=== PATIENT | female | born 1955 | race Caucasian/White ===

== ENCOUNTER 2017-03-22 12:12 | Emergency (ER) | payer OTHER, BC ==
[~2017-03-22] VITALS: Ht 165.1 cm; Wt 105.0 kg
[~2017-03-22 12:12] MED LIST: ASPI81TA28 PO; B-COCAP21 PO; CALC667C4 PO; CITA40TA4 PO; CLOTCRE33 TOP; CYAN1TAB2 PO; DIPH2CRE16 EXT; DOCU-94 PO; FENO145T26 PO; INSDGI SC; METO25TA56 PO; NRN/300 PO; OXYC20TA32 PO; RANI150T3 PO; SEVE800T7 PO; SIMV-151 PO; TRAZ50TA35 PO; TRIA0.1C20 TOP; VTMD PO
[2017-03-22 12:20] VITALS: TEMP 36.8; Ht 165.1 cm; Wt 105.0 kg
--- NOTE | 2017-03-22 12:49 | EMERGENCY ROOM VISIT NOTE ---
History Report prepared by Teri: Prabha Blankenship Under the Supervision of: Dr. Mauri Parks M.D. First contact with patient: 12:36 Chief Complaint: OTHER COMPLAINT Stated Complaint: PUMP IN R LEG History of Present Illness The patient is a 62 year old female who presents to the Emergency Room with complaints of persistent right leg pain that began 1 week ago. She currently rates her discomfort as a 4/10 in severity. The patient states that she has a history of diabetes and cellulitis. She states that her sugars have been normal recently. The patient states that her symptoms today appear similar to when she had cellulitis in the past. The patient states that she saw her PCP yesterday who was concerned that she may have developed a DVT. Associates erythema to her right leg with her symptoms today. The patient states that she is also on dialysis. Source of History: patient Onset: 1 week ago Position: leg (right) Symptom Intensity: 4/10 Timing: other (persistent) Note: Associated Symptoms:erythema to right leg Review of Systems All systems have been listed, reviewed, and are negative other than those previously mentioned. Please see Additional Medical History Sheet. Past Medical & Surgical Medical Problems: (1) Cellulitis (2) DM type 2 (diabetes mellitus, type 2) (3) EDEMA (4) End stage renal disease on dialysis (5) Esophageal Reflux (6) History of DVT (deep vein thrombosis) (7) History of pulmonary embolus (PE) (8) History of renal calculi (9) Hyperlipidemia Nec/Nos (10) Hypertension Nos (11) IRON DEFIC ANEMIA NOS (12) Osteoarthritis (13) Osteoporosis (14) Psoriasis Surgical Problems: (1) H/o AV anastomosis (2) H/O section (3) H/O colonoscopy (4) H/O cystoscopy (5) H/o EGD (6) H/O inguinal hernia repair (7) H/o insertion of biodegradable drug delivery implant (8) H/o insertion of tunneled central venous catheter (9) H/O laparoscopy (10) H/O partial resection of colon (11) H/o thrombectomy embolectomy axillary artery (12) History of ureter stent (13) S/P cholecystectomy (14) S/P hip replacement Family History Cardiovascular disease Diabetes mellitus SISTER FH: cancer FATHER (prostate, lung) SISTER (breast CA) Hypertension MOTHER SISTER Kidney disease Social History Smoking Status: Former Smoker Alcohol Use: none Drug Use: none Marital Status: Housing Status: lives with family Occupation Status: retired Current/Historical Medications Scheduled Aspirin (Aspirin Ec), 81 MG PO DAILY B-Complex W/ C & Folic Acid (Ki Caps), 1 CAP PO QAM Calcium Acetate (Phoslo 667 Mg), 1 CAP PO TID Cephalexin Monohydrate (Keflex), 500 MG PO QID Citalopram (Citalopram Hydrobromide), 1 TAB PO DAILY Clindamycin Hcl (Cleocin), 300 MG PO QID Cyanocobalamin (B-12), 1 TAB PO DAILY Docusate Sodium (Colace), 1 CAP PO BID Ergocalciferol (Vitamin D 20088 Unit), 50,000 UNIT INJ WK Fenofibrate (Tricor ), 145 MG PO DAILY Gabapentin (Neurontin), 300 MG PO TID Insulin Glargine (Lantus Solostar), 30 SC BID Metoprolol Tartrate (Lopressor) (Lopressor), 12.5 MG PO BID Sevelamer Carbonate (Renvela), 5 TAB PO UD Simvastatin (Simvastatin), 20 MG PO HS Triamcinolone Acet (Triamcinolone Acetonide), 1 APPLN TOP BID Scheduled PRN Clotrimazole W/ Betamethasone (Lotrisone), 1 APPLN TOP DAILY PRN for PRN Diphenhydramine-Zinc Acetate (Sm Anti-Itch Extra Streng), 1 APPLN EXT TID PRN for Itching Oxycodone Hcl (Oxycodone Hcl), 20 MG PO Q4 PRN for PA Trazodone Hcl (Trazodone), 50 MG PO HS PRN for Sleep Allergies Coded Allergies: Sulfa Drugs (Verified Allergy, Mild, hives, 03/22/17) Physical Exam Vital Signs Date Time Temp Pulse Resp B/P (MAP) Pulse Ox O2 Delivery O2 Flow Rate FiO2 03/22/17 14:34 69 18 141/71 98 03/22/17 13:43 63 18 139/66 97 Room Air 03/22/17 12:20 36.8 80 18 136/77 96 Room Air Physical Exam GENERAL: Patient awake, alert, oriented x 3. Patient follows commands. Patient does not appear toxic. Patient is adequately hydrated and well- nourished. SKIN: No erythema, pallor, cyanosis or rash HEENT: Normal head, pupils equal, reactive to light and accommodation. Neck: Without adenopathy, no neck vein distention. LUNGS: Clear to auscultation. No wheezes, no rales, no rhonchi. HEART: No murmurs. No gallops. No rubs ABDOMEN: Obese, No masses, no rebound, no hepatomegaly or splenomegaly. EXTREMITIES: Erythema and minimal tenderness in right lower leg. No inguinal adenopathy. Slight tenderness to calf, no break in skin to foot or lower leg, Right arm fistula. NEUROLOGIC: Cranial nerves II-XII within normal limits. No gross motor sensory function deficits. Medical Decision & Procedures ER Provider Diagnostic Interpretation: US results are interpretations by the radiologist and per my review. RIGHT LOWER EXTREMITY VENOUS DOPPLER HISTORY: Right leg swelling. DVT vs cellulitis Right COMPARISON STUDY: None. FINDINGS: There is normal compressibility, flow, and augmentation within the right lower extremity deep venous system. A 4.9 x 2.4 x 1.9 cm popliteal cyst. Echogenic fat within the upper medial calf consistent with a cellulitis. No loculated fluid collections to suggest an abscess. IMPRESSION: No DVT within the right lower extremity Electronically signed by: Bryon Recinos M.D. 03/22/2017 1:41 PM Dictated Date/Time: 03/22/2017 1:41 PM Laboratory Results 03/22/17 11:25 Red Blood Count 3.38, Mean Corpuscular Volume 104.4, Mean Corpuscular Hemoglobin 32.5, Mean Corpuscular Hemoglobin Concent 31.2, Mean Platelet Volume 9.5, Neutrophils (%) (Auto) 73.8, Lymphocytes (%) (Auto) 15.6, Monocytes (%) ( Auto) 6.0, Eosinophils (%) (Auto) 3.8, Basophils (%) (Auto) 0.4, Neutrophils # ( Auto) 6.02, Lymphocytes # (Auto) 1.27, Monocytes # (Auto) 0.49, Eosinophils # ( Auto) 0.31, Basophils # (Auto) 0.03 03/22/17 11:25 Test 03/22/17 11:25 White Blood Count 8.15 K/uL (4.8-10.8) Red Blood Count 3.38 M/uL (4.2-5.4) Hemoglobin 11.0 g/dL (12.0-16.0) Hematocrit 35.3 % (37-47) Mean Corpuscular Volume 104.4 fL (80-100) Mean Corpuscular Hemoglobin 32.5 pg (25-34) Mean Corpuscular Hemoglobin Concent 31.2 g/dl (32-36) Platelet Count 214 K/uL (130-400) Mean Platelet Volume 9.5 fL (7.4-10.4) Neutrophils (%) (Auto) 73.8 % Lymphocytes (%) (Auto) 15.6 % Monocytes (%) (Auto) 6.0 % Eosinophils (%) (Auto) 3.8 % Basophils (%) (Auto) 0.4 % Neutrophils # (Auto) 6.02 K/uL (1.4-6.5) Lymphocytes # (Auto) 1.27 K/uL (1.2-3.4) Monocytes # (Auto) 0.49 K/uL (0.11-0.59) Eosinophils # (Auto) 0.31 K/uL (0-0.5) Basophils # (Auto) 0.03 K/uL (0-0.2) RDW Standard Deviation 52.5 fL (36.4-46.3) RDW Coefficient of Variation 13.9 % (11.5-14.5) Immature Granulocyte % (Auto) 0.4 % Immature Granulocyte # (Auto) 0.03 K/uL (0.00-0.02) Anion Gap 3.0 mmol/L (3-11) Est Creatinine Clear Calc Drug Dose 23.1 ml/min Estimated GFR () 18.4 Estimated GFR (Non- 15.9 BUN/Creatinine Ratio 5.0 (10-20) Calcium Level 9.0 mg/dl (8.5-10.1) Laboratory results as stated above per my review. ED Course 1237: Past medical records reviewed. The patient was evaluated in room B2. A complete history and physical examination was performed. 1402: I reevaluated the patient and she is doing well. I discussed all the exam findings with her and I discussed the treatment plan. She verbalized complete understanding and agreement. She is ready to go home. Medical Decision Nurses notes reviewed. Medical history sheet reviewed. Differential diagnosis includes but is not limited to: cellulitis, DVT. Medication Reconciliation: I attest that I have personally reviewed the patient' s current medication list. Blood pressure Screening: Patient was found to have normal blood pressure on screening and does not require follow up. Multiple labs and imaging were obtained. Please see above. The patient has no evidence of a DVT. She does have cellulitis and will be started on Keflex and clindamycin. Patient is allergic to sulfa. Patient will require follow-up by her family physician. Impression Primary Impression: Cellulitis of right leg Scribe Attestation The scribe's documentation has been prepared under my direction and personally reviewed by me in its entirety. I confirm that the note above accurately reflects all work, treatment, procedures, and medical decision making performed by me. Departure Information Dispostion Home / Self-Care Prescriptions Clindamycin Hcl (CLEOCIN) 300 Mg Cap 300 MG PO QID for 5 Days, #20 CAP Prov: Mauri Parks M.D. 03/22/17 Cephalexin Monohydrate (Keflex) 500 Mg Cap 500 MG PO QID, #40 CAP Prov: Mauri Parks M.D. 03/22/17 Referrals Willie Epstein M.D. (PCP) Forms HOME CARE DOCUMENTATION FORM, IMPORTANT VISIT INFORMATION Patient Instructions My [facility] Additional Instructions 1 Keflex 4 times a day for 10 days. 1 Clindamycin 4 times a day for 5 days. Elevate your leg as much as possible. Follow-up with your family physician within the next 3-4 days. Return here sooner if the redness/swelling is getting worse.
[2017-03-22 13:25] LABS: BASO % 0.4 %; BASO ABS # 0.03 K/uL (0-0.2); COMPLETE YES; EOS % 3.8 %; HEMATOCRIT 35.3 % (37-47); IG% 0.4 %; LYMPH % 15.6 %; LYMPH ABS # 1.27 K/uL (1.2-3.4); MEAN CELL VOLUME 104.4 fL (80-100); MEAN CORPUSCULAR HEMOGLOBIN 32.5 pg (25-34); MEAN CORPUSCULAR HGB CONC 31.2 g/dl (32-36); MEAN PLATELET VOLUME 9.5 fL (7.4-10.4); NEUT % 73.8 %; PLATELET COUNT 214 K/uL (130-400); RED BLOOD COUNT 3.38 M/uL (4.2-5.4); WHITE BLOOD COUNT 8.15 K/uL (4.8-10.8)
[2017-03-22] MEDS ORDERED: ERGO500037 INJ (13:43)
--- NOTE | 2017-03-22 13:43 | DIAGNOSTIC IMAGING REPORT ---
RIGHT LOWER EXTREMITY VENOUS DOPPLER HISTORY: Right leg swelling. DVT vs cellulitis Right COMPARISON STUDY: None. FINDINGS: There is normal compressibility, flow, and augmentation within the right lower extremity deep venous system. A 4.9 x 2.4 x 1.9 cm popliteal cyst. Echogenic fat within the upper medial calf consistent with a cellulitis. No loculated fluid collections to suggest an abscess. IMPRESSION: No DVT within the right lower extremity Electronically signed by: Bryon Recinos M.D. 03/22/2017 1:41 PM Dictated Date/Time: 03/22/2017 1:41 PM
[2017-03-22 13:44] LABS: POTASSIUM 3.9 mmol/L (3.5-5.1)
[2017-03-22] MEDS ORDERED: INSDGIPEN SC (13:46)
[2017-03-22] MEDS ORDERED: TRMCR515 TOP (13:52)
[2017-03-22] MEDS ORDERED: CEPH500C PO (14:19)
[2017-03-22] MEDS ORDERED: CLIN300C2 PO (14:19)
[2017-03-22 14:34] VITALS: BP 141/71; PULSE 69; O2SAT 98
== END 2017-03-22 14:37 | disposition home or self-care (01) ==
LOC: C.EDB 12:14
DX: L03.115 Cellulitis of right lower limb (principal); E11.9 Type 2 diabetes mellitus without complications; N18.6 End stage renal disease; Z99.2 Dependence on renal dialysis; K21.9 Gastro-esophageal reflux disease without esophagitis; Z86.718 Personal history of other venous thrombosis and embolism; Z86.711 Personal history of pulmonary embolism; Z87.442 Personal history of urinary calculi; E78.5 Hyperlipidemia, unspecified; I12.0 Hypertensive chronic kidney disease with stage 5 chronic kidney disease or end stage renal disease; D50.9 Iron deficiency anemia, unspecified; M19.90 Unspecified osteoarthritis, unspecified site; M81.0 Age-related osteoporosis without current pathological fracture; Z82.49 Family history of ischemic heart disease and other diseases of the circulatory system; Z83.3 Family history of diabetes mellitus; Z80.9 Family history of malignant neoplasm, unspecified; Z84.1 Family history of disorders of kidney and ureter; Z87.891 Personal history of nicotine dependence; Z79.82 Long term (current) use of aspirin; Z79.4 Long term (current) use of insulin; Z79.899 Other long term (current) drug therapy

== ENCOUNTER 2017-04-10 08:14 | Emergency (ER) | payer OTHER, BC ==
[~2017-04-10] VITALS: Ht 162.6 cm; Wt 105.0 kg
[~2017-04-10 08:14] MED LIST changes: +CEPH500C PO; +ERGO500037 INJ; -INSDGI SC; +INSDGIPEN SC; -RANI150T3 PO; -TRIA0.1C20 TOP; +TRMCR515 TOP; -VTMD PO
[2017-04-10 08:19] VITALS: TEMP 36.4; Ht 162.6 cm; Wt 105.0 kg
[2017-04-10 09:23] VITALS: O2SAT 96
[2017-04-10 09:42] LABS: BASO % 0.1 %; BASO ABS # 0.01 K/uL (0-0.2); COMPLETE YES; EOS % 4.2 %; HEMATOCRIT 32.9 % (37-47); IG% 0.3 %; LYMPH % 9.7 %; MEAN CELL VOLUME 101.2 fL (80-100); MEAN CORPUSCULAR HEMOGLOBIN 31.7 pg (25-34); MEAN CORPUSCULAR HGB CONC 31.3 g/dl (32-36); MEAN PLATELET VOLUME 9.3 fL (7.4-10.4); MONO % 5.4 %; NEUT % 80.3 %; PLATELET COUNT 189 K/uL (130-400); RED BLOOD COUNT 3.25 M/uL (4.2-5.4); WHITE BLOOD COUNT 9.31 K/uL (4.8-10.8)
--- NOTE | 2017-04-10 09:49 | EMERGENCY ROOM VISIT NOTE ---
History First contact with patient: 08:24 Chief Complaint: OTHER COMPLAINT Stated Complaint: CELLULITIS Nursing Triage Summary: Pt verbalizes she was recently here for cellulitis in bilateral lower extremities, legs are doing better, but now concerned about cellulitis in bilateral hands. C/O bilateral hand edema, redness, and pain. History of Present Illness The patient is a 62 year old female who presents to the Emergency Room with complaints of bilateral swelling and pain of her hands that started 3 days ago. She also states she has been feeling generally more fatigued than usual, with some associated nausea. She denies any injuries to the hands, and has not had this problem before. Both hands began swelling and having pain at the same time and have both progressively gotten worse. She has taken her prescribed oxycodone for pain with some improvement, but has not taken any today. Patient states she was treated for right lower leg cellulitis several weeks ago with clindamycin and Keflex, she did complete the courses of antibiotics in her leg has improved. She is here today because she is concerned that she is getting cellulitis in her hands. Past medical history significant for dialysis, which she receives Friday, , Friday. She did not go today because she came to the ER, but she states she should be able to get an appointment to have dialysis tomorrow. She denies headaches, vision changes, chest pain, shortness of breath, palpitations, dizziness or passing out, abdominal pain, vomiting, diarrhea, constipation, fever/chills. Review of Systems A complete 10 point review of systems was reviewed with the patient with pertinent positives and negatives as per history of present illness. All else were negative. Past Medical/Surgical History Medical Problems: (1) Cellulitis (2) DM type 2 (diabetes mellitus, type 2) (3) EDEMA (4) End stage renal disease on dialysis (5) Esophageal Reflux (6) History of DVT (deep vein thrombosis) (7) History of pulmonary embolus (PE) (8) History of renal calculi (9) Hyperlipidemia Nec/Nos (10) Hypertension Nos (11) IRON DEFIC ANEMIA NOS (12) Osteoarthritis (13) Osteoporosis (14) Psoriasis Surgical Problems: (1) H/o AV anastomosis (2) H/O section (3) H/O colonoscopy (4) H/O cystoscopy (5) H/o EGD (6) H/O inguinal hernia repair (7) H/o insertion of biodegradable drug delivery implant (8) H/o insertion of tunneled central venous catheter (9) H/O laparoscopy (10) H/O partial resection of colon (11) H/o thrombectomy embolectomy axillary artery (12) History of ureter stent (13) S/P cholecystectomy (14) S/P hip replacement Family History Cardiovascular disease Diabetes mellitus SISTER FH: cancer FATHER (prostate, lung) SISTER (breast CA) Hypertension MOTHER SISTER Kidney disease Social History Smoking Status: Never Smoker Alcohol Use: none Drug Use: none Marital Status: Housing Status: lives with family Occupation Status: retired Current/Historical Medications Scheduled Aspirin (Aspirin Ec), 81 MG PO DAILY B-Complex W/ C & Folic Acid ([place] Caps), 1 CAP PO QAM Calcium Acetate (Phoslo 667 Mg), 1 CAP PO TID Citalopram (Citalopram Hydrobromide), 1 TAB PO DAILY Cyanocobalamin (B-12), 1 TAB PO DAILY Docusate Sodium (Colace), 1 CAP PO BID Ergocalciferol (Vitamin D 60371 Unit), 50,000 UNIT INJ WK Fenofibrate (Tricor ), 145 MG PO DAILY Gabapentin (Neurontin), 300 MG PO TID Insulin Glargine (Lantus Solostar), 30 SC BID Metoprolol Tartrate (Lopressor) (Lopressor), 12.5 MG PO BID Sevelamer Carbonate (Renvela), 5 TAB PO UD Simvastatin (Simvastatin), 20 MG PO HS Triamcinolone Acet (Triamcinolone Acetonide), 1 APPLN TOP BID Scheduled PRN Clotrimazole W/ Betamethasone (Lotrisone), 1 APPLN TOP DAILY PRN for PRN Diphenhydramine-Zinc Acetate (Sm Anti-Itch Extra Streng), 1 APPLN EXT TID PRN for Itching Oxycodone Hcl (Oxycodone Hcl), 20 MG PO Q4 PRN for PA Trazodone Hcl (Trazodone), 50 MG PO HS PRN for Sleep Allergies Coded Allergies: Sulfa Drugs (Verified Allergy, Mild, hives, 03/22/17) Physical Exam Vital Signs Date Time Temp Pulse Resp B/P (MAP) Pulse Ox O2 Delivery O2 Flow Rate FiO2 04/10/17 13:24 82 18 150/66 95 04/10/17 12:49 89 04/10/17 12:10 89 16 154/67 95 Room Air 04/10/17 10:40 84 16 149/67 97 Room Air 04/10/17 10:05 82 16 96 Room Air 04/10/17 09:30 89 04/10/17 09:23 96 Room Air 04/10/17 08:19 36.4 84 16 108/55 96 Room Air Physical Exam CONSTITUTIONAL: No acute distress. Nontoxic appearing. Well appearing and well nourished. Alert and oriented X 4 with normal affect. HEENT: Normocephalic, atraumatic. Pupils equal, round and reactive to light, EOMI. TMs normal. Pharynx normal. Moist mucous membranes. NECK: Supple, full active range of motion without discomfort. RESPIRATORY: Clear to auscultation bilaterally with no wheezing, crackles, rhonchi or stridor. Equal expansion bilaterally. CARDIOVASCULAR: Regular rate and rhythm with no murmurs, rubs or gallops. Normal peripheral perfusion. No edema. GASTROINTESTINAL: Soft, nontender, nondistended. Bowel sounds present in all quadrants. MUSCULOSKELETAL: Bilateral nonpitting edema of the hands, tender to palpation, especially around the joints. Mild erythema diffusely of both hands. Not hot to touch, no streaking or lymphangitis to suggest cellulitis. Full range of motion of all joints without discomfort. INTEGUMENTARY: No rash or other significant dermatologic conditions noted. NEUROLOGIC: Cranial nerves II-XII grossly intact. No focal neurologic deficits noted. Medical Decision & Procedures ER Provider Diagnostic Interpretation: CHEST 2 VIEWS ROUTINE CLINICAL HISTORY: Sepsis. COMPARISON STUDY: 06/07/2015 FINDINGS: The heart is mildly enlarged. There is no failure. There is no focal pulmonary consolidation. There are no pleural effusions. There is an old lower thoracic compression deformity. IMPRESSION: No active disease in the chest. Laboratory Results 04/10/17 09:30 Red Blood Count 3.25, Mean Corpuscular Volume 101.2, Mean Corpuscular Hemoglobin 31.7, Mean Corpuscular Hemoglobin Concent 31.3, Mean Platelet Volume 9.3, Neutrophils (%) (Auto) 80.3, Lymphocytes (%) (Auto) 9.7, Monocytes (%) ( Auto) 5.4, Eosinophils (%) (Auto) 4.2, Basophils (%) (Auto) 0.1, Neutrophils # ( Auto) 7.48, Lymphocytes # (Auto) 0.90, Monocytes # (Auto) 0.50, Eosinophils # ( Auto) 0.39, Basophils # (Auto) 0.01 04/10/17 09:30 Test 04/10/17 09:30 04/10/17 11:05 White Blood Count 9.31 K/uL (4.8-10.8) Red Blood Count 3.25 M/uL (4.2-5.4) Hemoglobin 10.3 g/dL (12.0-16.0) Hematocrit 32.9 % (37-47) Mean Corpuscular Volume 101.2 fL (80-100) Mean Corpuscular Hemoglobin 31.7 pg (25-34) Mean Corpuscular Hemoglobin Concent 31.3 g/dl (32-36) Platelet Count 189 K/uL (130-400) Mean Platelet Volume 9.3 fL (7.4-10.4) Neutrophils (%) (Auto) 80.3 % Lymphocytes (%) (Auto) 9.7 % Monocytes (%) (Auto) 5.4 % Eosinophils (%) (Auto) 4.2 % Basophils (%) (Auto) 0.1 % Neutrophils # (Auto) 7.48 K/uL (1.4-6.5) Lymphocytes # (Auto) 0.90 K/uL (1.2-3.4) Monocytes # (Auto) 0.50 K/uL (0.11-0.59) Eosinophils # (Auto) 0.39 K/uL (0-0.5) Basophils # (Auto) 0.01 K/uL (0-0.2) RDW Standard Deviation 54.4 fL (36.4-46.3) RDW Coefficient of Variation 15.1 % (11.5-14.5) Immature Granulocyte % (Auto) 0.3 % Immature Granulocyte # (Auto) 0.03 K/uL (0.00-0.02) Erythrocyte Sedimentation Rate 56 mm/hr (0-21) Anion Gap 11.0 mmol/L (3-11) Est Creatinine Clear Calc Drug Dose 10.6 ml/min Estimated GFR () 7.4 Estimated GFR (Non- 6.4 BUN/Creatinine Ratio 6.3 (10-20) Lactic Acid Level 0.8 mmol/L (0.4-2.0) Calcium Level 9.0 mg/dl (8.5-10.1) Total Bilirubin 1.3 mg/dl (0.2-1) Direct Bilirubin 0.2 mg/dl (0-0.2) Aspartate Amino Transf (AST/SGOT) 26 U/L (15-37) Alanine Aminotransferase (ALT/SGPT) 20 U/L (12-78) Alkaline Phosphatase 88 U/L (45-117) C-Reactive Protein 17.60 mg/dl (0-0.29) Total Protein 7.0 gm/dl (6.4-8.2) Albumin 2.3 gm/dl (3.4-5.0) Urine Color YELLOW Urine Appearance CLEAR (CLEAR) Urine pH 8.5 (4.5-7.5) Urine Specific Ellis 1.010 (1.000-1.030) Urine Protein 2+ (NEG) Urine Glucose (UA) TRACE (NEG) Urine Ketones NEG (NEG) Urine Occult Blood TRACE (NEG) Urine Nitrite NEG (NEG) Urine Bilirubin NEG (NEG) Urine Urobilinogen NEG (NEG) Urine Leukocyte Esterase TRACE (NEG) Urine WBC (Auto) 1-5 /hpf (0-5) Urine RBC (Auto) 0-4 /hpf (0-4) Urine Hyaline Casts (Auto) 5-10 /lpf (0-5) Urine Epithelial Cells (Auto) >30 /lpf (0-5) Urine Bacteria (Auto) 1+ (NEG) Urine Yeast (Auto) BUDDING (NONE PRSENT) Medications Administered Medications (Trade) Dose Ordered Sig/Skyler Route Start Time Stop Time Status Last Admin Dose Admin Oxycodone HCl (Roxicodone Immediate Rel Tab) 20 mg NOW STAT PO 04/10/17 12:37 04/10/17 12:39 DC 04/10/17 12:43 20 MG Medical Decision CC: Patient presenting with complaint of bilateral hand swelling and pain Interpretation of Labs: Mild leukopenia which appears at baseline, anemia which appears at baseline, significantly diminished renal function consistent with end -stage renal disease, no significant electrolyte abnormalities, specifically potassium within normal limits, no UTI. Differential Diagnosis: Includes, but not limited to fluid overload, edema, cellulitis, sepsis/bacteremia, arthritis, autoimmune/inflammatory process Medication Reconciliation: I attest that I have personally reviewed the patient' s current medication list. Vital signs review: I reviewed the patient's vital signs and interpret them as follows: T: Afebrile; BP: Hypertensive; HR: Within normal limits; RR: Within normal limits; Pulse Ox: Within normal limits on room air. Blood pressure screening: The patient was found to have an elevated blood pressure and was referred to their primary doctor for recheck and further treatment. Summary: Patient was evaluated at bedside, history of physical exam performed. Patient is alert and oriented, in no acute distress and nontoxic appearing. Patient is noted to have bilateral hand swelling, nonpitting, slightly erythematous but not warm, tender to palpation especially about the joints of the fingers. Swelling does not spread up into the wrist or forearm. Patient has healing cellulitis on her right calf which she states looks much better and does appear to be doing well. No edema noted to the feet or ankles. AV fistula of the right upper extremity with + thrill, + bruit, nontender to palpation and does not appear infected. Labs reviewed, no significant acute findings. She does have significantly elevated inflammatory markers, although upon review of her chart it appears that she has chronic elevation of her ESR/CRP. Chest x-ray was reviewed and does not show any acute findings. Patient discussed with Dr. Dee, who agrees with my assessment and plan. Patient reassessed multiple times throughout ED stay, her pain was improved with her home dose of oxycodone. She was updated on all results and plan for discharge, and she is comfortable with this plan. Patient was instructed to follow closely with her PCP for further management of her hand swelling, she states she has an appointment tomorrow. She was also encouraged to set up an appointment for dialysis tomorrow, which she states she will do. Patient discharged home in stable condition and ambulatory. Impression Primary Impression: Bilateral hand swelling Departure Information Dispostion Home / Self-Care Condition GOOD Referrals Willie Epstein M.D. (PCP) Patient Instructions My [facility] Additional Instructions Keep your scheduled follow-up appointment with your PCP tomorrow, for further evaluation of your hand swelling. There were no significant signs of infection on blood work today, but your inflammatory markers are elevated. You may want to discuss further lab testing to rule out autoimmune/inflammatory causes for swelling in your hands. Blood cultures were sent to the lab today and we will continue to follow them until they are completed. We will call you for any abnormal results. You may continue to take your prescribed pain medications. Call to get dialysis done tomorrow, since she were unable to get this done today as scheduled. Apply warm compresses to your hands and keep them elevated as much as possible to help with swelling. Do not wear any rings or bracelets while you're having swelling. Please return to the ER for any worsening symptoms, including increased redness , swelling, pain in the hands, spreading redness up the arms, fevers/chills/ sweats, severe dizziness or passing out, persistent vomiting, or any other worsening symptoms or concerns.
[2017-04-10 10:09] LABS: BUN/CREATININE RATIO 6.3 (10-20); CREATININE 6.4 mg/dl (0.60-1.20); POTASSIUM 4.3 mmol/L (3.5-5.1)
--- NOTE | 2017-04-10 11:17 | DIAGNOSTIC IMAGING REPORT ---
CHEST 2 VIEWS ROUTINE CLINICAL HISTORY: Sepsis. COMPARISON STUDY: 06/07/2015 FINDINGS: The heart is mildly enlarged. There is no failure. There is no focal pulmonary consolidation. There are no pleural effusions. There is an old lower thoracic compression deformity.[ IMPRESSION: No active disease in the chest. Electronically signed by: Cesar Phillips M.D. 04/10/2017 11:16 AM Dictated Date/Time: 04/10/2017 11:16 AM
[2017-04-10 11:32] LABS: URINE APPEARANCE CLEAR (CLEAR); URINE BILIRUBIN NEG (NEG); URINE COLOR YELLOW; URINE EPITHELIAL CELL AUTO >30 /lpf (0-5); URINE NITRITE NEG (NEG); URINE PH 8.5 (4.5-7.5); UROBILINOGEN NEG (NEG)
[2017-04-10 11:49] LABS: MANUAL MICROSCOPIC REQUIRED? NO; REVIEW REQ? YES; SULFASALICYLIC ACID POS (NEG)
[2017-04-10 12:00] LABS: ZZUR CULT IF INDIC CLEAN CATCH YES
[2017-04-10] MEDS ORDERED: OXYCODONE HCL IR 5 MG TAB (IMMEDIATE RELEASE) PO STA (12:37)
[2017-04-10 13:24] VITALS: BP 150/66; PULSE 82; O2SAT 95
== END 2017-04-10 13:25 | disposition home or self-care (01) ==
LOC: C.EDB 08:16
DX: R22.33 Localized swelling, mass and lump, upper limb, bilateral (principal); E11.9 Type 2 diabetes mellitus without complications; N18.6 End stage renal disease; Z99.2 Dependence on renal dialysis; K21.9 Gastro-esophageal reflux disease without esophagitis; Z86.718 Personal history of other venous thrombosis and embolism; Z86.711 Personal history of pulmonary embolism; I12.9 Hypertensive chronic kidney disease with stage 1 through stage 4 chronic kidney disease, or unspecified chronic kidney disease; Z87.442 Personal history of urinary calculi; E78.5 Hyperlipidemia, unspecified; M19.90 Unspecified osteoarthritis, unspecified site; M81.0 Age-related osteoporosis without current pathological fracture; L40.9 Psoriasis, unspecified; Z90.49 Acquired absence of other specified parts of digestive tract; Z96.649 Presence of unspecified artificial hip joint; Z83.3 Family history of diabetes mellitus; Z82.49 Family history of ischemic heart disease and other diseases of the circulatory system; Z84.1 Family history of disorders of kidney and ureter; Z80.42 Family history of malignant neoplasm of prostate; Z80.3 Family history of malignant neoplasm of breast; Z79.82 Long term (current) use of aspirin; Z79.4 Long term (current) use of insulin; Z79.899 Other long term (current) drug therapy

== ENCOUNTER 2018-01-08 07:59 | Emergency (ER) | payer OTHER ==
[~2018-01-08] VITALS: Ht 162.6 cm; Wt 98.0 kg
[~2018-01-08 07:59] MED LIST changes: -ASPI81TA28 PO; -B-COCAP21 PO; -CALC667C4 PO; -CEPH500C PO; -CITA40TA4 PO; -CYAN1TAB2 PO; -DIPH2CRE16 EXT; -ERGO500037 INJ; -INSDGIPEN SC; -METO25TA56 PO; -NRN/300 PO; +ONDA4TAB46 PO; -SEVE800T7 PO; -SIMV-151 PO; -TRAZ50TA35 PO; -TRMCR515 TOP
[2018-01-08 08:01] VITALS: Ht 162.6 cm; Wt 98.0 kg
--- NOTE | 2018-01-08 08:20 | EMERGENCY ROOM VISIT NOTE ---
History Report prepared by Teri: Duke Dean Under the Supervision of: Dr. Josh Dee M.D. First contact with patient: 08:09 Chief Complaint: FEVER Stated Complaint: SHAKING AND FEVER History of Present Illness The patient is a 62 year old female who presents to the Emergency Room with complaints of a persistent fever this morning. Per the patient's , the patient was very shaky this morning, and had dialysis this morning at [place], but dialysis checked the patient out and noted that the patient had a fever and an elevated heart rate, in addition to low blood sugars, so the patient was sent here for treatment and evaluation. The patient did not take her insulin this morning due to the low blood sugars. Per the patient's , the patient was noted to have a temperature in "one ear at dialysis of 107". Any loss of consciousness was denied on behalf of the patient. The patient has been noted to have had a decreased appetite sometimes recently. She adds that she has been having some urinary burning for a couple days. The patient has been seen by doctors multiple times over the past few months, and has been on- and-off antibiotics and other medications. Per one of the doctors, the patient' s lungs were noted to be "a mess". The patient was hospitalized here a few years ago for cellulitis. Source of History: patient, spouse/significant other Onset: This morning Position: other (global) Quality: other (fever) Timing: other (persistent) Associated Symptoms: + urinary symptoms, No LOC Note: Associated symptoms: Shakiness. Elevated heart rate. Decreased blood sugars. Decreased appetite. Review of Systems See HPI for pertinent positives & negatives. A total of 10 systems reviewed and were otherwise negative. Past Medical & Surgical Medical Problems: (1) Cellulitis (2) DM type 2 (diabetes mellitus, type 2) (3) EDEMA (4) End stage renal disease on dialysis (5) Esophageal Reflux (6) History of DVT (deep vein thrombosis) (7) History of pulmonary embolus (PE) (8) History of renal calculi (9) Hyperlipidemia Nec/Nos (10) Hypertension Nos (11) IRON DEFIC ANEMIA NOS (12) Osteoarthritis (13) Osteoporosis (14) Psoriasis Surgical Problems: (1) H/o AV anastomosis (2) H/O section (3) H/O colonoscopy (4) H/O cystoscopy (5) H/o EGD (6) H/O inguinal hernia repair (7) H/o insertion of biodegradable drug delivery implant (8) H/o insertion of tunneled central venous catheter (9) H/O laparoscopy (10) H/O partial resection of colon (11) H/o thrombectomy embolectomy axillary artery (12) History of ureter stent (13) S/P cholecystectomy (14) S/P hip replacement Family History Cardiovascular disease Diabetes mellitus SISTER FH: cancer FATHER (prostate, lung) SISTER (breast CA) Hypertension MOTHER SISTER Kidney disease Social History Smoking Status: Former Smoker Alcohol Use: none Drug Use: none Marital Status: Housing Status: lives with family Occupation Status: retired Current/Historical Medications Scheduled Aspirin (Aspirin Ec), 81 MG PO QAM Cephalexin Monohydrate (Keflex), 500 MG PO TID Cholecalciferol (Vitamin D3), 1,000 UNITS PO QAM Cinacalcet (Sensipar), 30 MG PO QAM Citalopram (Citalopram Hydrobromide), 40 MG PO QAM Fenofibrate (Tricor ), 145 MG PO QAM Gabapentin (Neurontin), 300 MG PO TID Insulin Glargine (Lantus), 10 UNITS SC BID Metoprolol Tartrate (Lopressor) (Lopressor), 12.5 MG PO BID Ropinirole (Requip), 0.5 MG PO BID Sevelamer Carbonate (Renvela), 5 TAB PO UD Simvastatin (Simvastatin), 20 MG PO HS Scheduled PRN Trazodone Hcl (Trazodone), 50 MG PO HS PRN for Sleep Allergies Coded Allergies: Sulfa Drugs (Verified Allergy, Mild, hives, 11/06/17) Physical Exam Vital Signs Date Time Temp Pulse Resp B/P (MAP) Pulse Ox O2 Delivery O2 Flow Rate FiO2 01/08/18 10:54 37.4 97 18 127/66 94 Room Air 01/08/18 09:24 107 18 138/56 96 Room Air 01/08/18 08:29 117 01/08/18 08:01 37.3 121 18 162/84 95 Room Air Physical Exam GENERAL: Patient is tired-appearing and in no acute distress. EYES: No scleral icterus, unremarkable pupils. ENT: Mucous membranes moist, no nasal congestion. NECK: No masses appreciated, no meningismus, trachea is midline. RESPIRATORY: No dyspnea. Clear to auscultation and equal bilaterally. No wheeze , no rhonchi. CARDIOVASCULAR: Tachycardic rate and regular rhythm. No murmurs, rubs, gallops appreciated. GASTROINTESTINAL: Abdomen soft, nontender, no peritonitis. Bowel sounds positive. No masses appreciated. BACK: No midline tenderness, no CVA tenderness EXTREMITIES: Fistula right arm. Peripheral vascular disease bilateral lower legs. NEUROLOGIC: Alert and oriented, peripheral vascular disease bilateral lower legs , cranial nerves grossly intact. SKIN: No rash, no jaundice, no diaphoresis. Medical Decision & Procedures ER Provider Diagnostic Interpretation: X ray results are stated below per my interpretation and the radiologist's interpretation. CHEST ONE VIEW PORTABLE HISTORY: fever COMPARISON: Chest 04/10/2017. FINDINGS: The heart remains mildly enlarged. No focal lung consolidations to suggest pneumonia. No evidence for pulmonary edema. No pleural effusions. No pneumothorax. Severe degenerative changes within the left glenohumeral joint. IMPRESSION: Stable cardiomegaly. Electronically signed by: Bryon Recinos M.D. 01/08/2018 8:52 AM Dictated Date/Time: 01/08/2018 8:39 AM Laboratory Results 01/08/18 08:53 Red Blood Count 3.26, Mean Corpuscular Volume 100.9, Mean Corpuscular Hemoglobin 31.3, Mean Corpuscular Hemoglobin Concent 31.0, Mean Platelet Volume 8.6, Neutrophils (%) (Auto) 86.2, Lymphocytes (%) (Auto) 8.3, Monocytes (%) ( Auto) 3.8, Eosinophils (%) (Auto) 1.0, Basophils (%) (Auto) 0.1, Neutrophils # ( Auto) 9.49, Lymphocytes # (Auto) 0.92, Monocytes # (Auto) 0.42, Eosinophils # ( Auto) 0.11, Basophils # (Auto) 0.01 01/08/18 08:53 Test 01/08/18 08:19 01/08/18 08:25 01/08/18 08:53 01/08/18 08:59 Bedside Glucose 93 mg/dl (70-90) Urine Color YELLOW Urine Appearance CLOUDY (CLEAR) Urine pH >= 9.0 (4.5-7.5) Urine Specific [place] 1.010 (1.000-1.030) Urine Protein 2+ (NEG) Urine Glucose (UA) TRACE (NEG) Urine Ketones NEG (NEG) Urine Occult Blood 1+ (NEG) Urine Nitrite NEG (NEG) Urine Bilirubin NEG (NEG) Urine Urobilinogen NEG (NEG) Urine Leukocyte Esterase LARGE (NEG) Urine WBC (Auto) >30 /hpf (0-5) Urine RBC (Auto) 5-10 /hpf (0-4) Urine Hyaline Casts (Auto) 1-5 /lpf (0-5) Urine Epithelial Cells (Auto) >30 /lpf (0-5) Urine Bacteria (Auto) NEG (NEG) White Blood Count 11.02 K/uL (4.8-10.8) Red Blood Count 3.26 M/uL (4.2-5.4) Hemoglobin 10.2 g/dL (12.0-16.0) Hematocrit 32.9 % (37-47) Mean Corpuscular Volume 100.9 fL (80-100) Mean Corpuscular Hemoglobin 31.3 pg (25-34) Mean Corpuscular Hemoglobin Concent 31.0 g/dl (32-36) Platelet Count 285 K/uL (130-400) Mean Platelet Volume 8.6 fL (7.4-10.4) Neutrophils (%) (Auto) 86.2 % Lymphocytes (%) (Auto) 8.3 % Monocytes (%) (Auto) 3.8 % Eosinophils (%) (Auto) 1.0 % Basophils (%) (Auto) 0.1 % Neutrophils # (Auto) 9.49 K/uL (1.4-6.5) Lymphocytes # (Auto) 0.92 K/uL (1.2-3.4) Monocytes # (Auto) 0.42 K/uL (0.11-0.59) Eosinophils # (Auto) 0.11 K/uL (0-0.5) Basophils # (Auto) 0.01 K/uL (0-0.2) RDW Standard Deviation 50.9 fL (36.4-46.3) RDW Coefficient of Variation 14.2 % (11.5-14.5) Immature Granulocyte % (Auto) 0.6 % Immature Granulocyte # (Auto) 0.07 K/uL (0.00-0.02) Prothrombin Time 10.2 SECONDS (9.0-12.0) Prothromb Time International Ratio 1.0 (0.9-1.1) Anion Gap 7.0 mmol/L (3-11) Est Creatinine Clear Calc Drug Dose 11.9 ml/min Estimated GFR () 8.8 Estimated GFR (Non- 7.6 BUN/Creatinine Ratio 4.5 (10-20) Calcium Level 9.4 mg/dl (8.5-10.1) Magnesium Level 2.3 mg/dl (1.8-2.4) Total Bilirubin 0.4 mg/dl (0.2-1) Direct Bilirubin 0.1 mg/dl (0-0.2) Aspartate Amino Transf (AST/SGOT) 16 U/L (15-37) Alanine Aminotransferase (ALT/SGPT) 16 U/L (12-78) Alkaline Phosphatase 106 U/L (45-117) Total Creatine Kinase 34 U/L (26-192) Creatine Kinase MB < 0.5 ng/ml (0.5-3.6) Creatine Kinase MB Ratio (0-3.0) Troponin I < 0.015 ng/ml (0-0.045) Total Protein 7.5 gm/dl (6.4-8.2) Albumin 2.4 gm/dl (3.4-5.0) Procalcitonin 0.70 ng/ml (0-0.5) Bedside Lactic Acid Venous 1.58 mmol/L (0.90-1.70) Test 01/08/18 09:01 Influenza Type A Antigen Neg for Influ A (NEG) Influenza Type B Antigen Neg for Influ B (NEG) Laboratory results as reviewed by me. Medications Administered Medications (Trade) Dose Ordered Sig/Skyler Route Start Time Stop Time Status Last Admin Dose Admin Sodium Chloride 500 ml @ 999 mls/hr Q31M STAT IV 01/08/18 08:36 01/08/18 09:06 DC 01/08/18 09:23 999 MLS/HR Acetaminophen (Tylenol Tab) 1,000 mg NOW STAT PO 01/08/18 08:36 01/08/18 08:37 DC 01/08/18 09:23 1,000 MG Ceftriaxone Sodium (Rocephin Inj) 1 gm NOW STAT IV 01/08/18 09:51 01/08/18 09:52 DC 01/08/18 10:03 1 GM ECG Per My Interpretation Indication: other (fever, shakiness) Rate (beats per minute): 105 Rhythm: normal sinus Findings: no acute ischemic change, no ectopy ED Course 0810: The patient was evaluated in room A4B. A complete history and physical exam was performed. 0951: I reevaluated the patient, and she says that she just has a lot of urinary burning and frequency, similar to previous UTIs. She says that it has gotten worse since she did a urinalysis a few days ago. She agrees to empiric antibiotic treatment. 1040: I reevaluated the patient and she feels much better. Her heart rate is 95. She states that she is not interested in being hospitalized, and wants to go home. She will be discharged. I discussed the risks and benefits of needing to come back, and the fact that she may get sicker. 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 Medical Decision Differential: Viral, Pharyngitis, Cellulitis, Pneumonia, Influenza, Meningitis, Sepsis, Bacteremia, UTI/Pyelonephritis, Endocrine, Toxicologic, amongst other pathologies entertained. 62 yr old female arrives for evaluation of fever and tachycardia. On exam patient a bit tachy but otherwise looks well. She notes symptoms similar to her previous UTIs and in setting of fevers, chills, and tachy treat empirically for UTI. Labs actually looking pretty good without evidence sepsis. She is breathing comfortably and in no way wishes to come in to hosptial. She wishes to have abx and see how she does at home. This seems reasonable. UA did return dirty though I suspect more contamination. She has no surgical abdomen and is in no way meningitis. She understands there are pending BCx. Medication Reconcilliation Current Medication List: was personally reviewed by me Blood Pressure Screening Patient's blood pressure: Elevated blood pressure Blood pressure disposition: Elevated BP felt to be situational Impression Primary Impression: Fever Additional Impression: UTI (urinary tract infection) Scribe Attestation The scribe's documentation has been prepared under my direction and personally reviewed by me in its entirety. I confirm that the note above accurately reflects all work, treatment, procedures, and medical decision making performed by me. Departure Information Dispostion Home / Self-Care Prescriptions Cephalexin Monohydrate (Keflex) 500 Mg Cap 500 MG PO TID for 7 Days, #21 CAP Prov: Josh Dee M.D. 01/08/18 Referrals Willie Epstein M.D. (PCP) Patient Instructions My [facility] Additional Instructions Keep well hydrated. Use Tylenol for fevers. Return if increasing fevers, vomiting, passing out, abdominal pains or other concerns. 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 Problem Qualifiers
[2018-01-08] MEDS ORDERED: SODIUM CHLORIDE 0.9% 500ML 500 ML IV STA (08:36)
[2018-01-08] MEDS ORDERED: ACETAMINOPHEN 500 MG TAB PO STA (08:36)
--- NOTE | 2018-01-08 08:54 | DIAGNOSTIC IMAGING REPORT ---
CHEST ONE VIEW PORTABLE HISTORY: fever COMPARISON: Chest 04/10/2017. FINDINGS: The heart remains mildly enlarged. No focal lung consolidations to suggest pneumonia. No evidence for pulmonary edema. No pleural effusions. No pneumothorax. Severe degenerative changes within the left glenohumeral joint. IMPRESSION: Stable cardiomegaly. Electronically signed by: Bryon Recinos M.D. 01/08/2018 8:52 AM Dictated Date/Time: 01/08/2018 8:39 AM
[2018-01-08 09:04] LABS: BASO % 0.1 %; BASO ABS # 0.01 K/uL (0-0.2); EOS ABS # 0.11 K/uL (0-0.5); HEMATOCRIT 32.9 % (37-47); HEMOGLOBIN 10.2 g/dL (12.0-16.0); IG# 0.07 K/uL (0.00-0.02); LYMPH % 8.3 %; LYMPH ABS # 0.92 K/uL (1.2-3.4); MEAN CELL VOLUME 100.9 fL (80-100); MEAN CORPUSCULAR HEMOGLOBIN 31.3 pg (25-34); MEAN PLATELET VOLUME 8.6 fL (7.4-10.4); MONO % 3.8 %; MONO ABS # 0.42 K/uL (0.11-0.59); NEUT % 86.2 %; NEUT ABS # 9.49 K/uL (1.4-6.5); PLATELET COUNT 285 K/uL (130-400); RED CELL DISTRIBUTION WIDTH CV 14.2 % (11.5-14.5); RED CELL DISTRIBUTION WIDTH SD 50.9 fL (36.4-46.3); WHITE BLOOD COUNT 11.02 K/uL (4.8-10.8)
[2018-01-08 09:35] LABS: ALBUMIN 2.4 gm/dl (3.4-5.0); ALKALINE PHOSPHATASE 106 U/L (45-117); ALT/SGPT 16 U/L (12-78); AST/SGOT 16 U/L (15-37); BLOOD UREA NITROGEN 25 mg/dl (7-18); CALCIUM 9.4 mg/dl (8.5-10.1); CARBON DIOXIDE 29 mmol/L (21-32); CKMB < 0.5 ng/ml (0.5-3.6); CREATININE 5.52 mg/dl (0.60-1.20); GLUCOSE 93 mg/dl (70-99); POTASSIUM 4.9 mmol/L (3.5-5.1); SODIUM 137 mmol/L (136-145); TOTAL PROTEIN 7.5 gm/dl (6.4-8.2)
[2018-01-08 09:47] LABS: INFLUENZA B ANTIGEN Neg for Influ B (NEG)
[2018-01-08] MEDS ORDERED: CEFTRIAXONE SOD INJ 1 GM ADDVIAL IV STA (09:51)
[2018-01-08] MEDS ORDERED: CEPH500C PO (10:43)
[2018-01-08 10:54] VITALS: BP 127/66; PULSE 97; TEMP 37.4; O2SAT 94
[2018-01-08] MEDS ORDERED: ASPI81TA28 PO (12:32)
[2018-01-08] MEDS ORDERED: TRAZ50TA35 PO (12:44)
[2018-01-08] MEDS ORDERED: SEVE800T7 PO (12:44)
[2018-01-08] MEDS ORDERED: SIMV-151 PO (13:52)
[2018-01-08] MEDS ORDERED: CHOL1000 PO (14:10)
[2018-01-08] MEDS ORDERED: CINA0.42 PO (14:10)
[2018-01-08] MEDS ORDERED: ROPI0.5T15 PO (14:10)
[2018-01-08] MEDS ORDERED: INSDGI SC (14:11)
[2018-01-08] MEDS ORDERED: NRN/300 PO (14:13)
[2018-01-08] MEDS ORDERED: METO25TA56 PO (14:13)
[2018-01-08] MEDS ORDERED: CITA40TA4 PO (14:20)
== END 2018-01-08 11:19 | disposition home or self-care (01) ==
LOC: C.EDB 08:01 → C.EDA 11:19
DX: R50.9 Fever, unspecified (principal); N39.0 Urinary tract infection, site not specified; E11.9 Type 2 diabetes mellitus without complications; N18.6 End stage renal disease; Z99.2 Dependence on renal dialysis; K21.9 Gastro-esophageal reflux disease without esophagitis; E78.5 Hyperlipidemia, unspecified; I10 Essential (primary) hypertension; M19.90 Unspecified osteoarthritis, unspecified site; M85.88 Other specified disorders of bone density and structure, other site; L40.9 Psoriasis, unspecified; Z83.3 Family history of diabetes mellitus; Z82.49 Family history of ischemic heart disease and other diseases of the circulatory system; Z87.891 Personal history of nicotine dependence; Z79.82 Long term (current) use of aspirin; Z79.4 Long term (current) use of insulin; Z88.2 Allergy status to sulfonamides

== ENCOUNTER → 2018-06-03 | Day surgery (SDC) | payer OTHER ==
[2018-05-29 08:16] VITALS: BMI 36.0
[~2018-06-03] VITALS: Ht 162.6 cm; Wt 96.8 kg
[~2018-06-03] MED LIST changes: +ASPCH81X PO; +CHOL1000 PO; +CINA0.42 PO; +CITA40TA4 PO; -CLOTCRE33 TOP; +DEXTROSE 50% 50 ML SYR IV STA; +DEXTROSE 50% 50 ML SYR ONE; -DOCU-94 PO; +GABA-112 PO; +INSU100I23 SC; +LIDOCAINE HCL 2% 2 ML VIAL (20MG/ML) ONE; +METO25TA56 PO; -ONDA4TAB46 PO; +OXYC15TA89 PO; -OXYC20TA32 PO; +PROPOFOL IV EMULSION 10 MG/ML 20 ML VIAL ONE; +ROPI0.5T15 PO; +SEVE800T7 PO; +SIMV-151 PO; +SODIUM CHLORIDE 0.9% 500ML 500 ML IV ONE; +TRAZ50TA35 PO
[2018-06-03 09:14] VITALS: Ht 162.6 cm; Wt 96.8 kg
--- NOTE | 2018-06-03 09:25 | Endo History and Physical ---
History & Physical Date of Service: Jun 03, 2018. Chief Complaint: HX COLON POLYPS, DIABETIS Referring Physician: DR PIZARRO History of Present Illness Colonoscopy for colon polyps surveillance Past Medical History Diabetes, Hypertension, Kidney Disease, Other Past Surgical History Hx Cardiac Surgery: No Hx Internal Defibrillator: No Hx Pacemaker: No Hx Abdominal Surgery: Yes (ASHVIN, X 2, LAPAROSCOPY) Hx of Implantable Prosthesis: No Hx Post-Op Nausea and Vomiting: No Hx Cancer Surgery: No Hx Thoracic Surgery: No Hx Orthopedic: Yes (RT/LEFT HERB) Hx Urinary Tract Surgery: Yes (CYSTOSCOPY/KIDNEY STONE REMOVAL) Family History None Social History Smoking Status: Never Smoker Hx Substance Use: No Hx Alcohol Use: No Allergies Coded Allergies: Sulfa Drugs (Verified Allergy, Mild, hives, 05/29/18) Current Medications Reported Home Medications Medications Dose Route/Sig Max Daily Dose Days Date Category Dose Instructions Aspirin Chewable (Aspirin) 81 Mg Chew 81 Mg PO QAM 05/29/18 Reported Neurontin (Gabapentin) 100 Mg Cap 100 Mg PO DIRECTED 05/29/18 Reported TAKES 1 DAILY. TAKES AN ADDITIONAL DOSE ON DIALYSIS DAYS. Basaglar Kwikpen (Insulin Glargine) 100 Unit/Ml Inj 20 Units SC BID 05/29/18 Reported Oxycontin (Oxycodone Hcl) 15 Mg Tab 15 Mg PO Q8 PRN 01/19/18 Reported Requip (Ropinirole HCl) 0.5 Mg Tab 0.5 Mg PO BID 11/06/17 Reported Vitamin D3 (Cholecalciferol) 1,000 Unit Tab 1,000 Units PO QAM 11/06/17 Reported Sensipar (Cinacalcet) 30 Mg Tab 30 Mg PO QAM 11/06/17 Reported Renvela (Sevelamer Carbonate) 800 Mg Tab 5 Tab PO UD 01/27/16 Reported 5 TABLETS WITH MEALS/ 3 TABS WITH SNACKS. Trazodone (Trazodone HCl) 50 Mg Tab 50 Mg PO HS PRN 01/27/16 Reported Citalopram Hydrobromide (Citalopram) 40 Mg Tab 40 Mg PO QAM 07/08/15 Reported Simvastatin 20 Mg Tab 20 Mg PO HS 07/08/15 Reported Lopressor (Metoprolol Tartrate) 25 Mg Tab 12.5 Mg PO BID 12/12/12 Reported Tricor (Fenofibrate) 145 Mg Tab 145 Mg PO QAM 11/23/11 Reported Vital Signs Weight (Kilograms): 96.82 Height (Feet): 5 Height (Inches): 4 Date Time Temp Pulse Resp B/P (MAP) Pulse Ox O2 Delivery O2 Flow Rate FiO2 06/03/18 09:13 36.7 69 18 103/57 (72) 98 Room Air Physical Exam General Appearance: no apparent distress Respiratory/Chest: Auscultation: breath sounds normal Cardiovascular: Heart Auscultation: RRR Abdomen: Inspection & Palpation: soft, non-distended Assessment and Plan Stable for colonoscopy
--- NOTE | 2018-06-03 11:09 | Discharge Instructions ---
Endoscopy Patient Instructions Date / Procedure(s) Performed Jun 03, 2018. Colonoscopy Allergy Information Coded Allergies: Sulfa Drugs (Verified Allergy, Mild, hives, 06/03/18) Discharge Date / Findings Jun 03, 2018. total 15 polyps removed Medication Instructions Stopped Medication(s): ASPIRIN LAST DOSE 06/01/18 Provider Instructions Activity Restrictions - No exercising or heavy lifting for 24 hours. - Do not drink alcohol the day of the procedure. - Do not drive a car or operate machinery until the day after the procedure. - Do not make any important decisions or sign important papers in 24 hours after the procedure. Following Day: - Return to full activity which may include returning to work/school. Diet Start your diet with liquids and light foods (jello, soup, juice, toast). Then eat your usual diet if not nauseated. Treatment For Common After Affects For mild abdominal pain, bloating, or excessive gas: - Rest - Eat lightly - Lie on right side Follow-Up Information Follow-up with DR PIZARRO as scheduled Anesthesia Information What You Should Know You have had a procedure that required some medicine to reduce anxiety and discomfort. This treatment is called moderate sedation. After receiving the treatment, you may be sleepy, but you will be able to breathe on your own. The effects of the treatment may last for several hours. Follow these instructions along with Activity/Diet recommendations noted above: * Do NOT do anything where dizziness or clumsiness would be dangerous. * Rest quietly at home today, then you can be up and about tomorrow. * Have a responsible person stay with you the rest of today. * You may have had an I.V. today. If so, you may take the dressing off later today. Recommendations Call your doctor if: * Trouble breathing * Continuous vomiting for more than 24 hours * Temperature above 101 degrees * Severe abdominal pain or bloating * Pain not relieved by pain medicine ordered * There is increased drainage or redness from any incision * A large amount of rectal bleeding greater than 2-3 tablespoons. (If you had a polyp/s removed or have hemorrhoids, a small amount of blood - from the rectum is to be expected.) * You have any unanswered questions or concerns. IN THE EVENT OF A SERIOUS EMERGENCY, GO TO THE NEAREST EMERGENCY ROOM Your discharge instructions were prepared by provider Domenico Pugh. Patient Instructions Signature Page Meka Hess Patient (or Guardian) Signature/Date: I have read and understand the instructions given to me by my caregivers. Caregiver/RN/Doctor Signature/Date: The above-named patient and/or guardian has received patient instructions on this date. + Original Patient Signature Page (only) stays with chart. Please make copy for patient.
--- NOTE | 2018-06-03 11:13 | GI REPORT ---
Patient Name: Meka Hess Procedure Date: 06/03/2018 9:47 AM Date of : 1955 Admit Type: Outpatient Age: 63 Gender: Female Attending MD: Domenico Pugh MD Procedure: Colonoscopy Providers: Domenico Pugh MD Referring MD: Willie Epstein Indications: High risk colon cancer surveillance: Personal history of colonic polyps Medicines: Monitored Anesthesia Care Complications: No immediate complications. Estimated Blood Loss: Estimated blood loss: none. Procedure: Pre-Anesthesia Assessment: - Prior to the procedure, a History and Physical was performed, and patient medications and allergies were reviewed. The patient is competent. The risks and benefits of the procedure and the sedation options and risks were discussed with the patient. All questions were answered and informed consent was obtained. Patient identification and proposed procedure were verified by the physician and the nurse in the procedure room. Mental Status Examination: alert and oriented. Airway Examination: normal oropharyngeal airway and neck mobility. Respiratory Examination: clear to auscultation. CV Examination: normal. ASA Grade Assessment: III - A patient with severe systemic disease. After reviewing the risks and benefits, the patient was deemed in satisfactory condition to undergo the procedure. The anesthesia plan was to use monitored anesthesia care (MAC). Immediately prior to administration of medications, the patient was re-assessed for adequacy to receive sedatives. The heart rate, respiratory rate, oxygen saturations, blood pressure, adequacy of pulmonary ventilation, and response to care were monitored throughout the procedure. The physical status of the patient was re-assessed after the procedure. After I obtained informed consent, the scope was passed under direct vision. Throughout the procedure, the patient's blood pressure, pulse, and oxygen saturations were monitored continuously. The scope was introduced through the anus and advanced to the cecum, identified by appendiceal orifice and ileocecal valve. The colonoscopy was performed without difficulty. The patient tolerated the procedure well. The quality of the bowel preparation was good. The ileocecal valve, appendiceal orifice, and rectum were photographed. Findings: The perianal and digital rectal examinations were normal. Ten sessile polyps were found in the ascending colon. The polyps were 4 to 8 mm in size. These polyps were removed with a cold snare. Resection and retrieval were complete. Verification of patient identification for the specimen was done by the physician and nurse using the patient's name and date. Five sessile polyps were found in the transverse colon. The polyps were 4 to 8 mm in size. These polyps were removed with a cold snare. Resection and retrieval were complete. Anal papilla(e) were hypertrophied. The retroflexed view of the distal rectum and anal verge was normal and showed no anal or rectal abnormalities. Impression: - Ten 4 to 8 mm polyps in the ascending colon, removed with a cold snare. Resected and retrieved. - Five 4 to 8 mm polyps in the transverse colon, removed with a cold snare. Resected and retrieved. - Anal papilla(e) were hypertrophied. - The distal rectum and anal verge are normal on retroflexion view. Recommendation: - Discharge patient to home. - Await pathology results. - Repeat colonoscopy in 2 years for surveillance. - Return to referring physician. Domenico Pugh MD 06/03/2018 11:13:15 AM This report has been signed electronically. Note Initiated On: 06/03/2018 9:47 AM Number of Addenda: 0 I attest to the content of the Intraoperative Record and orders documented therein, exceptions below {[id number]}
[2018-06-03 11:45] VITALS: BP 141/73; PULSE 65; O2SAT 100
--- NOTE | 2018-06-03 11:51 | Anesthesiology Progress Note ---
Anesthesia Post Op Note Date & Time Jun 03, 2018 at 11:51 Vital Signs Pain Intensity: 0 Vital Signs Past 12 Hours Date Time Temp Pulse Resp B/P (MAP) Pulse Ox O2 Delivery O2 Flow Rate FiO2 06/03/18 11:45 65 20 141/73 (95) 100 Room Air 06/03/18 11:30 69 20 132/69 (90) 100 Room Air 06/03/18 11:17 70 18 117/62 (80) 99 Room Air 06/03/18 09:13 36.7 69 18 103/57 (72) 98 Room Air Notes Mental Status: alert / awake / arousable, participated in evaluation Pt Amnestic to Procedure: Yes Nausea / Vomiting: adequately controlled Pain: adequately controlled Airway Patency, RR, SpO2: stable & adequate BP & HR: stable & adequate Hydration State: stable & adequate Anesthetic Complications: no major complications apparent
== END | disposition home or self-care (01) ==
LOC: C.GI 08:32
PROVIDERS: ATTEND Student in an Organized Health Care Education/Training Program
DX: Z12.11 Encounter for screening for malignant neoplasm of colon (principal); K62.89 Other specified diseases of anus and rectum; D12.2 Benign neoplasm of ascending colon; D12.3 Benign neoplasm of transverse colon; Z86.010 Personal history of colon polyps; K21.9 Gastro-esophageal reflux disease without esophagitis; E11.9 Type 2 diabetes mellitus without complications; I12.9 Hypertensive chronic kidney disease with stage 1 through stage 4 chronic kidney disease, or unspecified chronic kidney disease; N18.9 Chronic kidney disease, unspecified; Z88.2 Allergy status to sulfonamides; Z96.643 Presence of artificial hip joint, bilateral; Z90.49 Acquired absence of other specified parts of digestive tract; Z79.82 Long term (current) use of aspirin

== ENCOUNTER 2018-12-31 02:48 | Inpatient (IN) ==
[2018-12-31] MEDS ORDERED: GI COCKTAIL ED USE PO ONE (02:58)
[2018-12-31] MEDS ORDERED: cefTRIAXone SODIUM 1,000 MG/50 ML BAG IV STA (02:58)
--- NOTE | 2018-12-31 03:07 | Emergency Department Note ---
History of Present Illness General Chief complaint: Chest Pain History of Present Illness Maximum Pain Intensity: 9 This 63-year-old presents to the ER complaining of chest pain Location: Anterior chest Quality: Aching Severity: Moderate Duration: Tonight at midnight Timing: Tonight at midnight Context: Patient was concerned and EMS was summoned Modifying factors: better with nothing; worse with nothing Patient took aspirin with no relief of symptoms. EMS gave her nitro with no relief of symptoms. Patient denies prior heart disease. She is on dialysis for the past 8 years and gets dialyzed Friday. Patient is currently on antibiotics for cellulitis of the right lower leg and is on doxycycline and Keflex. She just started the doxycycline. Patient denies exertional chest pain, dyspnea, abdominal pain, back pain, fevers. Patient has a history of PE many years ago but this feels different. Patient ate a late dinner of cottage cheese and chicken. Gallbladder is removed. Home Medications Home Medications Medication Instructions Recorded Confirmed Type aspirin 81 mg PO DAILY 12/31/18 12/31/18 History cholecalciferol (vitamin D3) 1,000 unit PO DAILY 12/31/18 12/31/18 History [Vitamin D3] cinacalcet [Sensipar] 30 mg PO DAILY 12/31/18 12/31/18 History citalopram 40 mg PO DAILY 12/31/18 12/31/18 History fenofibrate nanocrystallized 145 mg PO DAILY 12/31/18 12/31/18 History gabapentin 100 mg PO 3XWK 12/31/18 12/31/18 History gabapentin 100 mg PO DAILY 12/31/18 12/31/18 History insulin glargine [Basaglar KwikPen 20 unit SUBCUT BID 12/31/18 12/31/18 History U-100 Insulin] metoprolol tartrate 12.5 mg PO BID 12/31/18 12/31/18 History oxycodone 15 mg PO Q8 PRN 12/31/18 12/31/18 History ropinirole 0.5 mg PO BID 12/31/18 12/31/18 History simvastatin 20 mg PO HS 12/31/18 12/31/18 History sucroferric oxyhydroxide [Velphoro] 500 mg PO TIDM 12/31/18 12/31/18 History Allergies Allergy/AdvReac Type Severity Reaction Status Date / Time Sulfa (Sulfonamide Allergy Mild hives Verified 12/31/18 05:04 Antibiotics) Past Med/Surg History Medical History End stage renal disease on dialysis (Chronic 09/26/14) DM type 2 (diabetes mellitus, type 2) (Chronic) History of pulmonary embolus (PE) (Chronic) History of DVT (deep vein thrombosis) (Chronic) History of renal calculi (Chronic) Osteoporosis (Chronic) Psoriasis (Chronic) Surgical History S/P cholecystectomy (Chronic) H/O inguinal hernia repair (Chronic) H/O partial resection of colon (Chronic 12/12/12) S/P hip replacement (Chronic) Social History Feels Safe at Home: Yes Smoking Status: Never smoker Review of Systems All systems reviewed & are unremarkable except as noted in HPI & below Physical Exam Vital Signs Vital Signs - 24 hr 12/31/18 02:56 12/31/18 03:19 12/31/18 03:22 Temperature 36.7 C Temperature Source Oral Sepsis Recent Fever Within 48 Hours No Sepsis Action Taken by Nursing No Action Required Pulse Rate 83 78 Pulse Rate [Finger] 77 Pulse Rhythm Regular Pulse Strength Normal Respiratory Rate 18 18 18 Respiratory Effort / Characteristics Non-Labored Spontaneous Respiratory Depth Normal Respiratory Pattern Agonal Blood Pressure 130/51 L Blood Pressure [Left Arm] 130/51 L Blood Pressure Mean 77 Blood Pressure Mean [Left Arm] 77 Blood Pressure Position Lying Pulse Oximetry 97 87 L 90 Oxygen Delivery Method Room Air Room Air Nasal Cannula Oxygen Flow Rate 3 12/31/18 04:39 Temperature Temperature Source Sepsis Recent Fever Within 48 Hours Sepsis Action Taken by Nursing Pulse Rate Pulse Rate [Finger] 79 Pulse Rhythm Pulse Strength Respiratory Rate 18 Respiratory Effort / Characteristics Respiratory Depth Respiratory Pattern Blood Pressure Blood Pressure [Left Arm] 110/50 L Blood Pressure Mean Blood Pressure Mean [Left Arm] 70 Blood Pressure Position Pulse Oximetry 100 Oxygen Delivery Method Nasal Cannula Oxygen Flow Rate 3 VITALS: Vitals are noted on the nurse's note and reviewed by myself. Vital signs stable. GENERAL: Pleasant female, in no acute distress, nondiaphoretic, well-developed well-nourished. SKIN: Right lower leg erythematous and slightly edematous starting between the second and third toes going up to the calf. The rest of the skin was without rashes, erythema, edema, or bruising. There is no tenting of the skin. Capillary reflex less than 2 seconds. HEAD: Normocephalic atraumatic. EARS: External auditory canals clear, tympanic membranes pearly benson without erythema or effusion bilaterally. EYES: Pupils equal round and reactive to light and accommodation. Conjunctivae without injection, sclerae without icterus. Extraocular movements intact. NOSE: Patent, turbinates without inflammation or discharge. MOUTH: Mucous membranes moist. Pharynx without erythema or exudate. Uvula midline. Airway patent. Tongue does not deviate. NECK: Supple without nuchal rigidity. No lymphadenopathy. No thyromegaly. Cervical spine is nontender. No JVD. HEART: Regular rate and rhythm LUNGS: Clear to auscultation bilaterally without wheezes, rales or rhonchi. No retractions or accessory muscle use. ABDOMEN: Positive bowel sounds x 4. Normal tympanic percussion. Soft, nontender, without masses or organomegaly. Willis sign negative. No guarding or rebound tenderness. No CVA tenderness MUSCULOSKELETAL: No muscle atrophy noted. Right lower leg erythematous and slightly edematous starting between the second and third toes going up to the calf. NEURO: Patient was alert and oriented to person place and time. Normal sensation to light and sharp touch. No focal neurological deficits. Course Administered Medications Discontinued Medications Al Hydrox/Mg Hydrox/Simethicone () 1 dose PO ONE ONE Stop: 12/31/18 02:59 Last Admin: 12/31/18 03:23 Dose: 1 dose Documented by: [id number] Ceftriaxone Sodium (Rocephin) 1,000 mg in 50 mls @ 100 mls/hr IV NOW STA Stop: 12/31/18 03:27 Last Infusion: 12/31/18 03:57 Dose: 0 mls/hr Documented by: [id number] Admin: 12/31/18 03:23 Dose: 100 mls/hr Documented by: [id number] Acetaminophen (Ofirmev) 1,000 mg in 100 mls @ 400 mls/hr IV NOW STA Stop: 12/31/18 04:47 Last Infusion: 12/31/18 04:56 Dose: 0 mls/hr Documented by: [id number] Admin: 12/31/18 04:38 Dose: 400 mls/hr Documented by: [id number] Sucralfate (Carafate) 1 gm PO NOW STA Stop: 12/31/18 04:33 Last Admin: 12/31/18 04:38 Dose: 1 gm Documented by: [id number] Medical Decision Making Medical Records Attestation: I reviewed the patient's medical records. Home Medications Current Medication List: was personally reviewed by me Laboratory Data Attestation: I reviewed the patient's lab results. Result diagrams: 12/31/18 03:20 12/31/18 03:20 Lab Results 12/31/18 12/31/18 12/31/18 Range/Units 03:20 03:20 03:24 WBC 11.84 H (4.8-10.8) K/uL RBC 3.29 L (4.2-5.4) M/uL Hgb 10.9 L (12.0-16.0) g/dL Hct 34.5 L (37-47) % MCV 104.9 H (80-100) fL MCH 33.1 (25-34) pg MCHC 31.6 L (32-36) g/dL RDW Std Deviation 52.7 H (36.4-46.3) fL RDW Coeff of Erum 13.7 (11.5-14.5) % Plt Count 200 (130-400) K/uL MPV 10.1 (7.4-10.4) fL Immature Gran % (Auto) 0.3 % Neut % (Auto) 84.9 % Lymph % (Auto) 8.1 % [place] % (Auto) 4.6 % Eos % (Auto) 1.9 % Baso % (Auto) 0.2 % Immature Gran # (Auto) 0.03 H (0.00-0.02) K/uL Neut # (Auto) 10.05 H (1.4-6.5) K/uL Lymph # (Auto) 0.96 L (1.2-3.4) K/uL [place] # (Auto) 0.55 (0.11-0.59) K/uL Eos # (Auto) 0.23 (0-0.5) K/uL Baso # (Auto) 0.02 (0-0.2) K/uL Sodium 137 (136-145) mmol/L Potassium 4.2 (3.5-5.1) mmol/L Chloride 99 (98-107) mmol/L Carbon Dioxide 28 (21-32) mmol/L Anion Gap 10.0 (3-11) BUN 66 H (7-18) mg/dl Creatinine 6.83 H* (0.6-1.2) mg/dl Est Cr Clr Drug Dosing 10.2 ml/min Est GFR ( Amer) 6.8 Est GFR (Non-Af Amer) 5.8 BUN/Creatinine Ratio 9.7 L (10-20) Glucose 85 (70-99) mg/dl Calcium 8.2 L (8.5-10.1) mg/dl Magnesium 2.3 (1.8-2.4) mg/dl Total Bilirubin 0.4 (0.2-1) mg/dl AST 34 (15-37) U/L ALT 28 (12-78) U/L Alkaline Phosphatase 61 (45-117) U/L POC Troponin I < 0.03 (0-0.045) ng/ml Troponin I < 0.015 (0-0.045) ng/ml Total Protein 7.9 (6.4-8.2) gm/dl Albumin 3.0 L (3.4-5.0) gm/dl Globulin 4.9 H (2.5-4.0) gm/dl Albumin/Globulin Ratio 0.6 L (0.9-2) Lipase 68 L (73-393) U/L Procalcitonin (0-0.5) ng/ml Specimen Hemolysis 12/31/18 Range/Units 03:27 WBC (4.8-10.8) K/uL RBC (4.2-5.4) M/uL Hgb (12.0-16.0) g/dL Hct (37-47) % MCV (80-100) fL MCH (25-34) pg MCHC (32-36) g/dL RDW Std Deviation (36.4-46.3) fL RDW Coeff of Erum (11.5-14.5) % Plt Count (130-400) K/uL MPV (7.4-10.4) fL Immature Gran % (Auto) % Neut % (Auto) % Lymph % (Auto) % [place] % (Auto) % Eos % (Auto) % Baso % (Auto) % Immature Gran # (Auto) (0.00-0.02) K/uL Neut # (Auto) (1.4-6.5) K/uL Lymph # (Auto) (1.2-3.4) K/uL [place] # (Auto) (0.11-0.59) K/uL Eos # (Auto) (0-0.5) K/uL Baso # (Auto) (0-0.2) K/uL Sodium (136-145) mmol/L Potassium (3.5-5.1) mmol/L Chloride (98-107) mmol/L Carbon Dioxide (21-32) mmol/L Anion Gap (3-11) BUN (7-18) mg/dl Creatinine (0.6-1.2) mg/dl Est Cr Clr Drug Dosing ml/min Est GFR ( Amer) Est GFR (Non-Af Amer) BUN/Creatinine Ratio (10-20) Glucose (70-99) mg/dl Calcium (8.5-10.1) mg/dl Magnesium (1.8-2.4) mg/dl Total Bilirubin (0.2-1) mg/dl AST (15-37) U/L ALT (12-78) U/L Alkaline Phosphatase (45-117) U/L POC Troponin I (0-0.045) ng/ml Troponin I (0-0.045) ng/ml Total Protein (6.4-8.2) gm/dl Albumin (3.4-5.0) gm/dl Globulin (2.5-4.0) gm/dl Albumin/Globulin Ratio (0.9-2) Lipase (73-393) U/L Procalcitonin 0.50 (0-0.5) ng/ml Specimen Hemolysis Blood Pressure Blood Pressure Findings: Normal blood pressure MDM Narrative Prior records/ancillary studies reviewed. Triage Nursing notes reviewed. Additional history obtained from EMS. The patient's history was concerning for chest pain. Differential diagnosis: Etiologies such as cardiac ischemia, aortic dissection, pulmonary embolism, p neumonia, pneumothorax, musculoskeletal, infections, pericarditis, myocarditis, esophageal rupture, gastrointestinal, as well as others were entertained. Physical examination: As above. ER treatment provided: GI cocktail p.o., Rocephin IV On reassessment the patient felt better. Diagnostic interpretation by me: The electrocardiogram was negative for pathologic change. Normal sinus, normal intervals, Q waves in lead III, T wave inversion in lead III, rate of 82. Impression normal sinus rhythm interpreted by myself. Prior EKG is reviewed and is unchanged. I think arrhythmia is unlikely. EKG shows normal sinus rhythm with no interval abnormalities such as QT prolongation or WPW. There are no findings to suggest Brugada syndrome. Cardiac monitoring in the emergency department reveals no tachycardic or bradycardic dysrhythmia. Hypertrophic cardiomyopathy was considered but there are no clear historical elements pointing toward this. EKG is not suggestive. The QRS voltage is not extremely large and there are no suggestive Q waves. The labs revealed negative troponin. Elevated creatinine. Patient has chronic kidney disease Imaging studies: Chest x-ray mild pulmonary congestion consistent with CHF without pneumothorax or free air per my interpretation US VENOUS BILATERAL LOWER EXTREMITIES: Limited by body habitus. No DVT identified Radiologist: Anthony Perez M.D. HEART SCORE: Hx: high/mod/low suspicion: 0 ECG: ST depression/nonspecific changes/normal: 0 Age: Greater than 65/45-64/less than 45: 1 Risk factors: (Hypertension, hyperlipidemia, diabetes, coronary disease, tobacco use, cocaine use): 3 Troponin: Greater than 2 times normal limits/1-2 times normal limits/normal: 0 Total: 4 Consultation: A consultation was placed with the hospitalist, Dr Zavala. The case was discussed and diagnostics were reviewed. The patient was evaluated in the ER for further treatment. Exam and history seem to chest pain with heart score being elevated. Patient will be evaluated by medicine. She does have cellulitis to the right lower leg. She was started on doxycycline the other day and did states she choked on it this morning. She has been on Keflex this past week. Some of her symptoms could be related to pill induced esophagitis. She did feel better after the GI cocktail and Carafate. She was given IV antibiotics. Patient is agreeable to treatment plan of admission. By the evaluation outlined above emergent etiologies such as aortic dissection, pulmonary embolism, pneumonia, pneumothorax, pericarditis, myocarditis, gastrointestinal, as well as others were deemed relatively unlikely. The pt informed about the findings as listed above. All questions were answered and pleased with the treatment. Case reviewed with my attending The chart was completed utilizing [employer] Speech voice recognition software. Grammatical errors, random word insertions, pronoun errors, and incomplete sentences are an occassional consequence of this system due to software limitations, ambient noise, and hardware issues. Any formal questions or concerns about the content, text, or information contained within the body of this dictation should be directly addressed to the physician dermatology physician assistant for clarification. Impression & Plan Chest pain, Cellulitis of leg, right Discharge Plan Visit Data Chief Complaint: Chest Pain ED Provider: Demetrice Portillo ED Midlevel Provider: Karolyn Camilo Discharge Problem: Chest pain, Cellulitis of leg, right Patient Disposition: Being Evaluated by Hospitalist Condition: Good Forms Stand Alone Forms: Call Back Authorization, My [facility] Prescriptions Prescriptions: No Action aspirin 81 mg Tablet,Chewable 81 mg PO DAILY RF: 0 cinacalcet [Sensipar] 30 mg Tablet 30 mg PO DAILY RF: 0 cholecalciferol (vitamin D3) [Vitamin D3] 1,000 unit Tablet 1,000 unit PO DAILY RF: 0 citalopram 40 mg tablet 40 mg PO DAILY RF: 0 gabapentin 100 mg capsule 100 mg PO DAILY RF: 0 gabapentin 100 mg Capsule 100 mg PO 3XWK RF: 0 fenofibrate nanocrystallized 145 mg tablet 145 mg PO DAILY RF: 0 Basaglar KwikPen U-100 Insulin 100 unit/mL (3 mL) insulin pen 20 unit subcut BID RF: 0 oxycodone 15 mg tablet 15 mg PO Q8 PRN (Reason: Pain) RF: 0 simvastatin 20 mg tablet 20 mg PO HS RF: 0 ropinirole 0.5 mg tablet 0.5 mg PO BID RF: 0 metoprolol tartrate 25 mg tablet 12.5 mg PO BID RF: 0 Velphoro 500 mg tablet,chewable 500 mg PO TIDM RF: 0 Referrals Referrals: Willie Epstein [Primary Care Provider] - Discharge Problem: Chest pain Qualifiers: Chest pain type: unspecified Qualified Code(s): R07.9 - Chest pain, unspecified
[2018-12-31 03:31] LABS: Basophils # (auto) 0.02 K/uL (0-0.2); Basophils % (auto) 0.2 %; Eosinophils # (auto) 0.23 K/uL (0-0.5); Eosinophils % (auto) 1.9 %; Hematocrit (blood only) 34.5 % (37-47); Hemoglobin 10.9 g/dL (12.0-16.0); Immature Granulocytes # (auto) 0.03 K/uL (0.00-0.02); Immature Granulocytes % (auto) 0.3 %; Lymphocytes # (auto) 0.96 K/uL (1.2-3.4); Lymphocytes % (auto) 8.1 %; Mean Corpuscular Hgb Conc 31.6 g/dL (32-36); Mean Corpuscular Volume 104.9 fL (80-100); Mean Platelet Volume 10.1 fL (7.4-10.4); Monocytes # (auto) 0.55 K/uL (0.11-0.59); Monocytes % (auto) 4.6 %; Neutrophils # (auto) 10.05 K/uL (1.4-6.5); Neutrophils % (auto) 84.9 %; Platelet Count 200 K/uL (130-400); RDW Coefficient of Variation 13.7 % (11.5-14.5); RDW Standard Deviation 52.7 fL (36.4-46.3); Red Blood Count 3.29 M/uL (4.2-5.4); White Blood Count 11.84 K/uL (4.8-10.8)
[2018-12-31 04:03] LABS: Alanine Aminotransferase 28 U/L (12-78); Albumin Globulin Ratio 0.6 (0.9-2); Alkaline Phosphatase 61 U/L (45-117); Aspartate Aminotransferase 34 U/L (15-37); BUN Creatinine Ratio 9.7 (10-20); Bilirubin,Total 0.4 mg/dl (0.2-1); Blood Urea Nitrogen 66 mg/dl (7-18); Calcium 8.2 mg/dl (8.5-10.1); Carbon Dioxide 28 mmol/L (21-32); Chloride 99 mmol/L (98-107); Creatinine Clr Calc Pharmacy 10.2 ml/min; Est GFR (African American) 6.8; Est GFR (Non-African American) 5.8; Globulin 4.9 gm/dl (2.5-4.0); Glucose 85 mg/dl (70-99); Potassium 4.2 mmol/L (3.5-5.1); Sodium 137 mmol/L (136-145); Total Protein 7.9 gm/dl (6.4-8.2); Troponin I < 0.015 ng/ml (0-0.045)
[2018-12-31] MEDS ORDERED: SUCRALFATE 1 GM/10 ML UDC PO STA (04:32)
[2018-12-31] MEDS ORDERED: ACETAMINOPHEN 1,000 MG/100 ML VIAL IV STA (04:33)
--- NOTE | 2018-12-31 04:42 | Emergency Department Note ---
ED Visit Note I saw this patient in conjunction with Lois Camilo PA-C. I agree with her decision making and treatment plan. . : Chest pain Qualifiers: Chest pain type: unspecified Qualified Code(s): R07.9 - Chest pain, unspecified
[2018-12-31 04:50] LABS: Magnesium 2.3 mg/dl (1.8-2.4)
[2018-12-31] MEDS ORDERED: ALBUT/IPRATROP 3MG/0.5MG NEB 3 ML VIAL NEB STA (05:42)
[2018-12-31] MEDS ORDERED: FUROSEMIDE 100 MG in SYRINGE 0 ML IV ONE (05:59)
[2018-12-31 06:02] LABS: HCO3 ABG 28 mmol/L (19-24); Oxygen Saturation ABG 96.9 % (90-95); PCO2 ABG 50 mmHg (35-46); PO2 ABG 97 mm/Hg (80-95); pH ABG 7.36 (7.35-7.45)
[2018-12-31 06:03] LABS: Allen Test POS (Pos)
[2018-12-31] MEDS ORDERED: FUROSEMIDE 40 MG/4 ML VIAL IV ONE (06:04)
--- NOTE | 2018-12-31 06:07 | History & Physical Report ---
Date of Service December 31, 2018 Assessment & Plan (1) Acute hypoxemic respiratory failure: Secondary to pulmonary congestion, hx ESRD on HD. Chest pain possibly from pill (Doxycycline) induced esophagitis hx GERD as per records Significant relief following GI cocktail at the ER Right foot cellulitis/with extension to RLE No sepsis hypertension, stable DM 2, insulin requiring, well controlled as of recent outpatient hemoglobin A1c of 5 last March 2018 history PE/DVT status post anticoagulation chronic anemia secondary to ESRD, hemoglobin at baseline past tobacco abuse Medical telemetry Baseline ABG Supplemental O2 IV Lasix until patient able to undergo hemodialysis this morning Nephrology consult RE dialysis management Continue Doxycycline, local measures for RLE cellulitis (Specific instructions for patient to take antibiotic with half a cup of water and to stay seated upright for 30 minutes after medication intake.) Consider broadening antibiotic coverage and Podiatry evaluation (patient known to Dr. Rj Conway) if right foot swelling unimproved after 24 hours of initial intervention. Initiate H2 ivonne adjusted for renal function for GERD/possible medication esophagitis. GI consult if symptoms unimproved. Basal insulin, ISS BG goal 140-180, patient due for hemoglobin A1c recheck DVT prophylaxis. Heparin subcu Full code History of Present Illness Chief Complaint: Chest pain Primary Care Provider: Willie Epstein History obtained from patient, family, and records. Medical history significant for hypertension, ESRD on HD, DM 2, insulin requiring history PE/DVT status post anticoagulation, chronic anemia baseline hemoglobin of 10, past tobacco abuse, GERD as per records. Recent confinement January 2016 for LLE cellulitis. Patient seen at PCPs office 2 days ago for pain and swelling on the right foot noted the last week. Patient not sure if she stepped on something. Low-grade fever at home as per . Redness noted on right foot dorsum and pustule/calluses/skin cracks noted on right foot plantar aspect as per PCP's note two days ago. Patient prescribed Keflex and Doxycycline, first doses taken yesterday as per patient. Right foot swelling unimproved. This morning patient woke up with burning chest pain going across her chest, with shortness of breath followed by nausea and emesis which patient attributes to anxiety. No unusual cough symptoms as per patient. No relief with nitro given by EMS. Significant relief of chest pain following GI cocktail administered at the ER. Patient noted to be hypoxemic at the ER, O2 sats 80s. Patient compliant with Friday hemodialysis. Denies unusual fluid retention. Patient currently comfortable. Medical History as above DSE March 2018: No ischemia, EF 65 to 69%, concentric LVH, diastolic dysfunction Surgical History : Hernia repair, hip surgery, cholecystectomy, vascular procedures/thrombectomy, urologic procedures, breast lesion excision, joint aspiration Family History : Breast cancer, lung cancer, rheumatoid arthritis Personal/Social history : Past tobacco abuse, no EtOH intake, retired [employer] employee Allergies Allergy/AdvReac Type Severity Reaction Status Date / Time Sulfa (Sulfonamide Allergy Mild hives Verified 12/31/18 05:04 Antibiotics) Home Medications Home Medications Medication Instructions Recorded Confirmed Type aspirin 81 mg PO DAILY 12/31/18 12/31/18 History cholecalciferol (vitamin D3) 1,000 unit PO DAILY 12/31/18 12/31/18 History [Vitamin D3] cinacalcet [Sensipar] 30 mg PO DAILY 12/31/18 12/31/18 History citalopram 40 mg PO DAILY 12/31/18 12/31/18 History fenofibrate nanocrystallized 145 mg PO DAILY 12/31/18 12/31/18 History gabapentin 100 mg PO 3XWK 12/31/18 12/31/18 History gabapentin 100 mg PO DAILY 12/31/18 12/31/18 History insulin glargine [Basaglar KwikPen 20 unit SUBCUT BID 12/31/18 12/31/18 History U-100 Insulin] metoprolol tartrate 12.5 mg PO BID 12/31/18 12/31/18 History oxycodone 15 mg PO Q8 PRN 12/31/18 12/31/18 History ropinirole 0.5 mg PO BID 12/31/18 12/31/18 History simvastatin 20 mg PO HS 12/31/18 12/31/18 History sucroferric oxyhydroxide [Velphoro] 500 mg PO TIDM 12/31/18 12/31/18 History Past Med/Surg History Medical History End stage renal disease on dialysis (Chronic 09/26/14) DM type 2 (diabetes mellitus, type 2) (Chronic) History of pulmonary embolus (PE) (Chronic) History of DVT (deep vein thrombosis) (Chronic) History of renal calculi (Chronic) Osteoporosis (Chronic) Psoriasis (Chronic) Surgical History S/P cholecystectomy (Chronic) H/O inguinal hernia repair (Chronic) H/O partial resection of colon (Chronic 12/12/12) S/P hip replacement (Chronic) Social History Preferred Language: Iranian Communication Ability: Effective Bicycle Repairer Required: No Beliefs That Will Affect Care: None Current Living Situation: Spouse Other Information That Helps Us Care for You: No Feels Safe at Home: Yes Safety Concerns: Feels Safe At This Time Smoking Status: Never smoker Hx Alcohol Use: No Hx Substance Use: No Review of Systems As per HPI, all 10 systems reviewed, all other ROS negative Physical Exam Vital Signs (Past 24 Hours): Last Vital Signs Temp 36.7 C 12/31/18 02:56 Pulse 79 12/31/18 04:39 Resp 18 12/31/18 04:39 BP 110/50 L 12/31/18 04:39 Pulse Ox 100 12/31/18 04:39 Physical Exam: GENERAL: Comfortable, pleasant, looks younger for stated age, no respiratory distress, obese SKIN: Sallow, warm HEENT: Pale palpebral conjunctivae, no ptosis, dry buccal mucosa, nasal cannula in place NECK : Supple, short neck, no tenderness CHEST : Decreased breath sounds, anterior chest wall tenderness HEART : RRR, no obvious murmurs ABDOMEN: Some distention, nontender EXTREMITIES : RLE swelling; erythematous, tender right streaky induration right foot dorsum, no other conspicuous deformities noted NEUROLOGIC : Coherent, no facial asymmetry, no other gross focality Results & Data Laboratory Results Laboratory Results WBC 11.84 K/uL (4.8-10.8) H 12/31/18 03:20 RBC 3.29 M/uL (4.2-5.4) L 12/31/18 03:20 Hgb 10.9 g/dL (12.0-16.0) L 12/31/18 03:20 Hct 34.5 % (37-47) L 12/31/18 03:20 MCV 104.9 fL (80-100) H 12/31/18 03:20 MCH 33.1 pg (25-34) 12/31/18 03:20 MCHC 31.6 g/dL (32-36) L 12/31/18 03:20 RDW Std Deviation 52.7 fL (36.4-46.3) H 12/31/18 03:20 RDW Coeff of Erum 13.7 % (11.5-14.5) 12/31/18 03:20 Plt Count 200 K/uL (130-400) 12/31/18 03:20 MPV 10.1 fL (7.4-10.4) 12/31/18 03:20 Immature Gran % (Auto) 0.3 % 12/31/18 03:20 Neut % (Auto) 84.9 % 12/31/18 03:20 Lymph % (Auto) 8.1 % 12/31/18 03:20 [place] % (Auto) 4.6 % 12/31/18 03:20 Eos % (Auto) 1.9 % 12/31/18 03:20 Baso % (Auto) 0.2 % 12/31/18 03:20 Immature Gran # (Auto) 0.03 K/uL (0.00-0.02) H 12/31/18 03:20 Neut # (Auto) 10.05 K/uL (1.4-6.5) H 12/31/18 03:20 Lymph # (Auto) 0.96 K/uL (1.2-3.4) L 12/31/18 03:20 [place] # (Auto) 0.55 K/uL (0.11-0.59) 12/31/18 03:20 Eos # (Auto) 0.23 K/uL (0-0.5) 12/31/18 03:20 Baso # (Auto) 0.02 K/uL (0-0.2) 12/31/18 03:20 ABG pH 7.36 (7.35-7.45) 12/31/18 05:49 ABG pCO2 50 mmHg (35-46) H 12/31/18 05:49 ABG pO2 97 mm/Hg (80-95) H 12/31/18 05:49 ABG HCO3 28 mmol/L (19-24) H 12/31/18 05:49 ABG O2 Saturation 96.9 % (90-95) H 12/31/18 05:49 ABG Base Excess 2.0 mEq/L (-9-1.8) H 12/31/18 05:49 Vinod Test POS (Pos) 12/31/18 05:49 Barometric Pressure 733.8 mm/Hg 12/31/18 05:49 Oxygen Given 3L 12/31/18 05:49 Sodium 137 mmol/L (136-145) 12/31/18 03:20 Potassium 4.2 mmol/L (3.5-5.1) 12/31/18 03:20 Chloride 99 mmol/L (98-107) 12/31/18 03:20 Carbon Dioxide 28 mmol/L (21-32) 12/31/18 03:20 Anion Gap 10.0 (3-11) 12/31/18 03:20 BUN 66 mg/dl (7-18) H 12/31/18 03:20 Creatinine 6.83 mg/dl (0.6-1.2) H* 12/31/18 03:20 Est Cr Clr Drug Dosing 10.2 ml/min 12/31/18 03:20 Est GFR ( Amer) 6.8 12/31/18 03:20 Est GFR (Non-Af Amer) 5.8 12/31/18 03:20 BUN/Creatinine Ratio 9.7 (10-20) L 12/31/18 03:20 Glucose 85 mg/dl (70-99) 12/31/18 03:20 Calcium 8.2 mg/dl (8.5-10.1) L 12/31/18 03:20 Magnesium 2.3 mg/dl (1.8-2.4) 12/31/18 03:20 Total Bilirubin 0.4 mg/dl (0.2-1) 12/31/18 03:20 AST 34 U/L (15-37) 12/31/18 03:20 ALT 28 U/L (12-78) 12/31/18 03:20 Alkaline Phosphatase 61 U/L (45-117) 12/31/18 03:20 POC Troponin I < 0.03 ng/ml (0-0.045) 12/31/18 03:24 Troponin I < 0.015 ng/ml (0-0.045) 12/31/18 03:20 Total Protein 7.9 gm/dl (6.4-8.2) 12/31/18 03:20 Albumin 3.0 gm/dl (3.4-5.0) L 12/31/18 03:20 Globulin 4.9 gm/dl (2.5-4.0) H 12/31/18 03:20 Albumin/Globulin Ratio 0.6 (0.9-2) L 12/31/18 03:20 Lipase 68 U/L (73-393) L 12/31/18 03:20 Procalcitonin 0.50 ng/ml (0-0.5) 12/31/18 03:27 Specimen Hemolysis 12/31/18 03:20 Diagnostic Findings Chest x-ray my interpretation minimal congestion EKG as per my interpretation : Rate 80, NSR, T wave flattening inferior leads Right foot x-ray official read pending Ultrasound LE venous Dopplers bilateral initial read: No DVT, limited by body habitus
[2018-12-31 06:35] LABS: Estimated Average Glucose 97 mg/dl
--- NOTE | 2018-12-31 06:55 | XRay Report ---
XR chest 1V portable CLINICAL HISTORY: Difficult chest pain COMPARISON STUDY: 01/08/2018 FINDINGS: The heart is enlarged. There is slight elevation interstitium, likely secondary to mild pul monary vascular congestion/fluid overload. There is no lobar consolidation. There are no pleural effu sions.[ IMPRESSION: Cardiomegaly and radiographic evidence of mild pulmonary vascular congestion. No evidence of lobar consolidation Electronically signed by: Cesar Phillips M.D. 12/31/2018 6:53 AM
--- NOTE | 2018-12-31 06:57 | XRay Report ---
XR foot RT min 3V routine CLINICAL HISTORY: SWELLING COMPARISON: None. DISCUSSION: The bones are osteopenic. There is a fracture involving the proximal phalange the fifth t oe, likely subacute or chronic. . There are chronic deformities of the second and third metatarsal ne cks. There are vascular calcifications present. There are no dislocations. IMPRESSION: 1. Osteopenia 2. Chronic deformities of the second and third metatarsal necks 3. Fracture involving the proximal phalanx of the fifth toe likely subacute or chronic 4. Vascular calcifications. Electronically signed by: Cesar Phillips M.D. 12/31/2018 6:56 AM
--- NOTE | 2018-12-31 07:06 | Ultrasound Report ---
BILATERAL LOWER EXTREMITY VENOUS DOPPLER HISTORY: Bilateral leg pain, swelling COMPARISON STUDY: Left leg venous Doppler were 916. Right leg venous Doppler 04/08/2017. FINDINGS: Small linear focus of echogenic stranding within the distal right common femoral vein. This likely represents a small amount of nonocclusive chronic thrombus. No acute DVT within the right or left lower extremity. IMPRESSION: No acute DVT within the right or left lower extremity. Small linear nonocclusive chronic thrombus see n within the distal right common femoral vein. Electronically signed by: Bryon Recinos M.D. 12/31/2018 7:05 AM
[2018-12-31 08:33] LABS: Appearance Urine Clear (Clear); Bacteria Urine Automated Negative (Negative); Bilirubin Urine Negative (Negative); Blood Urine 1+ (Negative); Cast Urine Automated 0 /lpf (0-5); Color Urine Yellow; Epithelial Cell Urine Auto >30 /lpf (0-5); Glucose Urine UA 1+ (Negative); Ketones Urine Negative (Negative); Leukocyte Esterase Urine Trace (Negative); Nitrite Urine Negative (Negative); Specific Gravity Urine 1.012 (1.000-1.030); Urobilinogen Urine Negative (Negative); pH Urine 8.5 (4.5-7.5)
[2018-12-31 08:45] LABS: Protein Urine 2+ (Negative)
[2018-12-31 08:48] LABS: RBC Urine Automated 0-4 /hpf (0-4)
[2018-12-31] MEDS ORDERED: GLUCOSE 40% GEL 15 GM TUBE PO PRN (09:46)
[2018-12-31] MEDS ORDERED: LORazepam 0.5 MG/1 ML VIAL IV PRN (09:46)
[2018-12-31] MEDS ORDERED: DEXTROSE 50% 50 ML SYRINGE IV PRN (09:46)
[2018-12-31] MEDS ORDERED: PROCHLORPERAZINE 5 MG in SYRINGE 4 ML IV PRN (09:46)
[2018-12-31] MEDS ORDERED: ACETAMINOPHEN 325 MG TAB PO PRN (09:46)
[2018-12-31] MEDS ORDERED: GLUCOSE 10 TABS/TUBE PO PRN (09:46)
[2018-12-31] MEDS ORDERED: GLUCAGON FOR INJ 1 MG VIAL SQ PRN (09:46)
[2018-12-31] MEDS ORDERED: CARBOHYDRATES FOR HYPOGLYCEMIA PO PRN (09:46)
[2018-12-31] MEDS ORDERED: INSULIN GLARGINE SOLOSTAR 100 UNITS/ML 3 ML PEN SC SCH (09:46)
[2018-12-31] MEDS ORDERED: DOXYCYCLINE HYCLATE 100 MG in DEXTROSE 5% 100 ML IV STA (10:11)
[2018-12-31] MEDS ORDERED: FAMOTIDINE 20MG/5ML IV PUSH IV STA (10:42)
[2018-12-31] MEDS ORDERED: FAMOTIDINE 20 MG in SYRINGE 3 ML IV ONE (11:00)
[2018-12-31 11:34] LABS: INR 1.2 (0.9-1.1); Prothrombin Time 11.9 Seconds (9.0-12.0)
[2018-12-31] MEDS: METOPROLOL TARTRATE 25 MG TAB PO SCH ×2 (12:22→21:00)
[2018-12-31] MEDS: CITALOPRAM 40 MG TAB PO SCH (12:23)
[2018-12-31] MEDS: ROPINIROLE HCL 0.25 MG TABLET PO SCH ×2 (12:23→21:02)
[2018-12-31] MEDS: FENOFIBRATE NANOCRYSTALLIZED 145 MG TABLET PO SCH (12:23)
[2018-12-31] MEDS: GABAPENTIN 100 MG CAP PO SCH ×2 (12:24→21:02)
[2018-12-31] MEDS: INSULIN ASPART 100 UNITS/ML 3 ML PEN SC SCH ×3 (12:26→20:44)
[2018-12-31] MEDS: OXYCODONE HCL IR 5 MG TAB (IMMEDIATE RELEASE) PO PRN ×2 (12:48→20:59)
[2018-12-31] MEDS ORDERED: SODIUM CHLORIDE 0.9% 1000ML 1,000 ML IV PRN (13:31)
[2018-12-31] MEDS ORDERED: HEPARIN SOD (PORCINE) 1000 UNIT/ML 10 ML VIAL IV ONE (13:31)
[2018-12-31] MEDS: CHOLECALCIFEROL 1,000 UNITS TAB PO SCH (14:24)
[2018-12-31] MEDS: HEPARIN SOD 5,000 UNIT/0.5 ML VIAL SQ SCH ×2 (14:24→21:07)
[2018-12-31] MEDS: ASPIRIN 81 MG ECTAB PO SCH (14:25)
[2018-12-31] MEDS ORDERED: DOXYCYCLINE PHARMACY CONSULT IN PROGRESS PRN (14:43)
[2018-12-31] MEDS ORDERED: PIPERACILL/TAZOBAC CONSULT ACTIVE PRN (14:46)
[2018-12-31] MEDS: SUCRALFATE 1 GM/10 ML UDC PO SCH ×3 (15:00→21:02)
[2018-12-31] MEDS ORDERED: PIPERACILLIN/TAZOBACTAM 4.5 GM in DEXTROSE 5% 100 ML IV ONE (15:00)
[2018-12-31] MEDS: PANTOprazole 40 MG in SYRINGE 0 ML IV SCH ×2 (15:00→22:15)
--- NOTE | 2018-12-31 16:19 | Hospitalist Progress Note ---
Date of Service December 31, 2018 Assessment & Plan (1) Acute hypoxemic respiratory failure: Secondary to pulmonary congestion, hx ESRD on HD. Vision for hemodialysis today Chest pain possibly from pill (Doxycycline) induced esophagitis hx GERD as per records Significant relief following GI cocktail at the ER --Convert doxycycline to IV for now Start Protonix IV twice a day, sacral fate 4 times daily Monitor Right foot cellulitis/with extension to RLE Rule out foot abscess --Start IV Zosyn and doxycycline for broader anaerobic coverage in light of diabetes type 2 --Patient reports this only started 2 days ago --We will consult podiatry service to evaluate for possible foot abscess and possible I&D Continue to monitor response to antibiotics hypertension, stable DM 2, insulin requiring, well controlled as of recent outpatient hemoglobin A1c of 5 last March 2018 history PE/DVT status post anticoagulation chronic anemia secondary to ESRD, hemoglobin at baseline past tobacco abuse DVT prophylaxis. Heparin subcu Full code Disposition Pending Usually lives at home Subjective Follow-up for chest pain, hypoxia Seen resting in bed, comfortable Reports constant sharp substernal chest pain, no dizziness/nausea/diaphoresis Reports chest pain started after patient took her first with binder in abdomen yesterday and got worse when she took the doxycycline No nausea or vomiting today No shortness of breath, coughing, fevers or chills Right foot and lower leg seems to be improving with doxycycline Denies other symptoms Physical Exam Vital Signs (Past 24 Hours): Last Vital Signs Temp 37.4 C 12/31/18 16:07 Pulse 79 12/31/18 16:07 Resp 18 12/31/18 16:07 BP 104/58 L 12/31/18 16:07 Pulse Ox 90 12/31/18 16:07 Physical Exam: General- oriented x 3, not in distress, speaks in sentences with no effort or accessory muscle use Eyes- anicteric Neck- no JVD Lungs- clear breath sounds bilaterally, no rales/wheezes Heart- normal rate, regular rhythm; no murmurs Abdomen- normal bowel sounds, nondistended, soft, nontender Extremities-positive for moderate erythema on the right lower leg, and dorsum of the right foot Positive small bullae versus abscess collection with surrounding erythema on the plantar aspect of the foot between the big toe and second toe, associated with mild tenderness Neuro- alert, oriented x 3; no gross focal neurologic deficits Skin- warm & dry
[2018-12-31] MEDS: HEPARIN SOD (PORCINE) 1000 UNIT/ML 10 ML VIAL IV SCH ×2 (19:50→19:51)
[2018-12-31] MEDS ORDERED: DOXYCYCLINE HYCLATE 100 MG CAP PO SCH (21:00)
[2018-12-31] MEDS: SIMVASTATIN 20 MG TAB PO SCH (21:01)
[2018-12-31] MEDS: DOXYCYCLINE HYCLATE 100 MG in DEXTROSE 5% 100 ML IV SCH (22:16)
[2018-12-31] MEDS: HYDROmorphone INJ 0.5 MG/0.5 ML SYR IV PRN (22:16)
--- NOTE | 2018-12-31 23:24 | Nephrology Consultation ---
Date of Consultation December 31, 2018 Assessment & Plan (1) End stage renal disease on dialysis: on TRSat HD > had routine HD today -next HD tentatively for 01/02 depending on clinical condition -she does not appear floridly overlaoded on exam near end of her dialysis treatment - she frequently has 3L wt -mini heparin w/ HD and anemia meds as indicated ->>for now w/ esphogitis agree w/ holding velforo and look at getting her renvela granules -- will d/w pharmacy in am; ordered phos for am too Present on Admission?: Yes (2) Cellulitis of leg, right: po meds stopped and getting treatment for esophagitis -LEdopper negative Present on Admission?: Yes (3) Delirium: did make floor nurse and hospitalist aware of MS changes on HD -- ? from pain meds or extreme faitgue (less likely); she was not hypoxic when I saw her and was on RA -they will monitor pt closely and work up MS changes if persistent Present on Admission?: Yes History of Present Illness Reason for Consultation: esrd on dialysis Requesting Physician: dr shahid Attending Physician: Alonso Shahid MD History of Present Illness 63 y/o F whom I follow on TRSat HD via [facility] and whom I"m asked to see for dialysis care after she was admitted overnight for pill esophagitis related to doxycycline. Other PMH includes DM, HTN, GERD, obesity, remote tobacco abuse; chronic ambulatory dysfunction (uses a walker to come to/from HD). She had apparently recently started doxy for R foot/ RLE cellulitis. The patient apparently developed upper chest pain and came to ER for eval. CXR w/ mild vascular congestion adn she had transient hypoxia. I arranged for her routine dialysis today and saw her on treatment this evening at about 1900. She was at that time very confused and restleess; she was oriented x 3 but unable to give consistent history of what brought her to ER or when her last HD had been. No confusion reported earlier in day on notes I reveiwed. her hemodynamics during dialysis were appropriate; she tolerated the treatment well with about 3 L fluid removal. Allergies Allergy/AdvReac Type Severity Reaction Status Date / Time Sulfa (Sulfonamide Allergy Mild hives Verified 12/31/18 05:04 Antibiotics) Home Medications Home Medications Medication Instructions Recorded Confirmed Type aspirin 81 mg PO DAILY 12/31/18 12/31/18 History cholecalciferol (vitamin D3) 1,000 unit PO DAILY 12/31/18 12/31/18 History [Vitamin D3] cinacalcet [Sensipar] 30 mg PO DAILY 12/31/18 12/31/18 History citalopram 40 mg PO DAILY 12/31/18 12/31/18 History fenofibrate nanocrystallized 145 mg PO DAILY 12/31/18 12/31/18 History gabapentin 100 mg PO 3XWK 12/31/18 12/31/18 History gabapentin 100 mg PO DAILY 12/31/18 12/31/18 History insulin glargine [Basaglar KwikPen 20 unit SUBCUT BID 12/31/18 12/31/18 History U-100 Insulin] metoprolol tartrate 12.5 mg PO BID 12/31/18 12/31/18 History oxycodone 15 mg PO Q8 PRN 12/31/18 12/31/18 History ropinirole 0.5 mg PO BID 12/31/18 12/31/18 History simvastatin 20 mg PO HS 12/31/18 12/31/18 History sucroferric oxyhydroxide [Velphoro] 500 mg PO TIDM 12/31/18 12/31/18 History Patient History Medical History End stage renal disease on dialysis (Chronic 09/26/14) DM type 2 (diabetes mellitus, type 2) (Chronic) History of pulmonary embolus (PE) (Chronic) History of DVT (deep vein thrombosis) (Chronic) History of renal calculi (Chronic) Osteoporosis (Chronic) Psoriasis (Chronic) Surgical History S/P cholecystectomy (Chronic) H/O inguinal hernia repair (Chronic) H/O partial resection of colon (Chronic 12/12/12) S/P hip replacement (Chronic) Social History Preferred Language: [place] Communication Ability: Effective Fish Protector Required: No Beliefs That Will Affect Care: None Current Living Situation: Spouse Other Information That Helps Us Care for You: No Feels Safe at Home: Yes Safety Concerns: Feels Safe At This Time Smoking Status: Never smoker Hx Alcohol Use: No Hx Substance Use: No Review of Systems limted by pt confusion/ MS Constitutional: + fever (SIZE MIXER; can't saw when or how high or how determined), + body aches (back and RLE pain) and + weakness Eyes: no worsening vision Ear, Nose, Mouth, Throat: + dry mouth Respiratory: no cough and no dyspnea Cardiovascular: + chest pain (midline at sternal notch approximately); no radiating jaw, neck or arm pain, no palpitations and no edema Gastrointestinal: + nausea and + vomiting (prior to admission; can't say when); no abdominal pain and no diarrhea/loose stools no change in chronic urine output Musculoskeletal: + back pain rle pain lesion sole R foot Neurologic: + unsteadiness, + generalized weakness and + confusion Psychiatric: + behavioral changes and + confusion Physical Exam Vital Signs (Past 24 Hours): Last Vital Signs Temp 37.1 C 12/31/18 19:10 Pulse 72 12/31/18 19:10 Resp 18 12/31/18 16:07 BP 138/52 L 12/31/18 19:10 Pulse Ox 90 12/31/18 16:07 Constitutional: well developed and well nourished on RA obese; oriented x 3 but inappropriate/restless/ confused Eyes: EOM intact bilaterally ENMT: Ears: no external ear abnormality Nose: no external nose abnormality Mouth: + dry oral mucous membranes Neck: no nuchal rigidity Respiratory: normal respiratory effort Auscultation: + diminished lung sounds Cardiovascular: Rate/Rhythm: regular rate and regular rhythm Extremities: + edema (trace RLE) and + AV fistula (LUE proximal) Gastrointestinal (Abdomen): Inspection/Auscultation: normal bowel sounds Percussion/Palpation: abdomen soft; abdomen nontender Musculoskeletal: Extremities: strength 5/5 throughout Skin: no rashes, warm and dry small blister base of R great toe w/ clear fluid; dry shallow ulcer R 5th toe pad Neurologic: valedz, fluent speech, no tremor Psychiatric: Orientation: oriented x 3 Motor Behavior: + psychomotor agitation (needs repeated reminders not to move AVF arm) confused; fluent speech but concepts don't hang together Results & Data Laboratory Results Abnormal lab results 12/31/18 12/31/1819 Range/Units 03:20 03:20 05:49 WBC 11.84 H (4.8-10.8) K/uL RBC 3.29 L (4.2-5.4) M/uL Hgb 10.9 L (12.0-16.0) g/dL Hct 34.5 L (37-47) % MCV 104.9 H (80-100) fL MCHC 31.6 L (32-36) g/dL RDW Std Deviation 52.7 H (36.4-46.3) fL Immature Gran # (Auto) 0.03 H (0.00-0.02) K/uL Neut # (Auto) 10.05 H (1.4-6.5) K/uL Lymph # (Auto) 0.96 L (1.2-3.4) K/uL INR (0.9-1.1) ABG pCO2 50 H (35-46) mmHg ABG pO2 97 H (80-95) mm/Hg ABG HCO3 28 H (19-24) mmol/L ABG O2 Saturation 96.9 H (90-95) % ABG Base Excess 2.0 H (-9-1.8) mEq/L BUN 66 H (7-18) mg/dl Creatinine 6.83 H* (0.6-1.2) mg/dl BUN/Creatinine Ratio 9.7 L (10-20) POC Glucose (70-99) Calcium 8.2 L (8.5-10.1) mg/dl Albumin 3.0 L (3.4-5.0) gm/dl Globulin 4.9 H (2.5-4.0) gm/dl Albumin/Globulin Ratio 0.6 L (0.9-2) Lipase 68 L (73-393) U/L Urine pH (4.5-7.5) Urine Protein (Negative) Urine Glucose (UA) (Negative) Urine Blood (Negative) Ur Leukocyte Esterase (Negative) U Epithel Cells (Auto) (0-5) /lpf 12/31/18 12/31/18 12/31/18 Range/Units 07:15 11:08 11:14 WBC (4.8-10.8) K/uL RBC (4.2-5.4) M/uL Hgb (12.0-16.0) g/dL Hct (37-47) % MCV (80-100) fL MCHC (32-36) g/dL RDW Std Deviation (36.4-46.3) fL Immature Gran # (Auto) (0.00-0.02) K/uL Neut # (Auto) (1.4-6.5) K/uL Lymph # (Auto) (1.2-3.4) K/uL INR 1.2 H (0.9-1.1) ABG pCO2 (35-46) mmHg ABG pO2 (80-95) mm/Hg ABG HCO3 (19-24) mmol/L ABG O2 Saturation (90-95) % ABG Base Excess (-9-1.8) mEq/L BUN (7-18) mg/dl Creatinine (0.6-1.2) mg/dl BUN/Creatinine Ratio (10-20) POC Glucose 117 H (70-99) Calcium (8.5-10.1) mg/dl Albumin (3.4-5.0) gm/dl Globulin (2.5-4.0) gm/dl Albumin/Globulin Ratio (0.9-2) Lipase (73-393) U/L Urine pH 8.5 H (4.5-7.5) Urine Protein 2+ H (Negative) Urine Glucose (UA) 1+ H (Negative) Urine Blood 1+ H (Negative) Ur Leukocyte Esterase Trace H (Negative) U Epithel Cells (Auto) >30 H (0-5) /lpf Diagnostic Findings reviewed
[2018-12-31] MEDS ORDERED: HALOPERIDOL LACTATE 5 MG/ML 1 ML VIAL IM PRN (23:46)
[2019-01-01 00:15] LABS: Basophils # (auto) 0.02 K/uL (0-0.2); Basophils % (auto) 0.2 %; Eosinophils # (auto) 0.04 K/uL (0-0.5); Eosinophils % (auto) 0.4 %; Hematocrit (blood only) 29.8 % (37-47); Hemoglobin 9.6 g/dL (12.0-16.0); Immature Granulocytes # (auto) 0.04 K/uL (0.00-0.02); Immature Granulocytes % (auto) 0.4 %; Lymphocytes # (auto) 0.77 K/uL (1.2-3.4); Lymphocytes % (auto) 7.4 %; Mean Corpuscular Hgb Conc 32.2 g/dL (32-36); Mean Corpuscular Volume 104.6 fL (80-100); Mean Platelet Volume 9.7 fL (7.4-10.4); Monocytes # (auto) 0.75 K/uL (0.11-0.59); Monocytes % (auto) 7.2 %; Neutrophils # (auto) 8.75 K/uL (1.4-6.5); Neutrophils % (auto) 84.4 %; Platelet Count 160 K/uL (130-400); RDW Coefficient of Variation 13.8 % (11.5-14.5); RDW Standard Deviation 52.1 fL (36.4-46.3); Red Blood Count 2.85 M/uL (4.2-5.4); White Blood Count 10.37 K/uL (4.8-10.8)
[2019-01-01] MEDS: PIPERACILLIN/TAZOBACTAM 4.5 GM in DEXTROSE 5% 100 ML IV SCH ×3 (00:20→21:51)
[2019-01-01 00:39] LABS: Albumin Level 2.6 gm/dl (3.4-5.0); BUN Creatinine Ratio 7.7 (10-20); Calcium 8.3 mg/dl (8.5-10.1); Est GFR (African American) 11.7; Est GFR (Non-African American) 10.1; Magnesium 2.1 mg/dl (1.8-2.4); Potassium 3.9 mmol/L (3.5-5.1)
[2019-01-01 00:46] LABS: Albumin Globulin Ratio 0.6 (0.9-2); Bilirubin,Total 0.7 mg/dl (0.2-1); Globulin 4.6 gm/dl (2.5-4.0); Phosphorus 4.6 mg/dl (2.5-4.9); Total Protein 7.2 gm/dl (6.4-8.2)
[2019-01-01] MEDS: HYDROmorphone INJ 0.5 MG/0.5 ML SYR IV PRN (01:33)
[2019-01-01] MEDS: HEPARIN SOD 5,000 UNIT/0.5 ML VIAL SQ SCH ×3 (05:35→21:51)
[2019-01-01 05:51] LABS: Basophils # (auto) 0.02 K/uL (0-0.2); Basophils % (auto) 0.2 %; Eosinophils # (auto) 0.07 K/uL (0-0.5); Eosinophils % (auto) 0.8 %; Hematocrit (blood only) 29.1 % (37-47); Hemoglobin 9.2 g/dL (12.0-16.0); Immature Granulocytes # (auto) 0.09 K/uL (0.00-0.02); Lymphocytes # (auto) 1.18 K/uL (1.2-3.4); Lymphocytes % (auto) 13.1 %; Mean Corpuscular Hgb Conc 31.6 g/dL (32-36); Mean Corpuscular Volume 103.2 fL (80-100); Mean Platelet Volume 9.8 fL (7.4-10.4); Monocytes # (auto) 0.71 K/uL (0.11-0.59); Monocytes % (auto) 7.9 %; Neutrophils # (auto) 6.94 K/uL (1.4-6.5); Platelet Count 156 K/uL (130-400); RDW Coefficient of Variation 13.7 % (11.5-14.5); Red Blood Count 2.82 M/uL (4.2-5.4); White Blood Count 9.01 K/uL (4.8-10.8)
[2019-01-01] MEDS: INSULIN ASPART 100 UNITS/ML 3 ML PEN SC SCH ×4 (09:00→20:52)
[2019-01-01] MEDS: PANTOprazole 40 MG in SYRINGE 0 ML IV SCH ×2 (09:00→20:52)
[2019-01-01] MEDS: ROPINIROLE HCL 0.25 MG TABLET PO SCH ×2 (09:01→20:53)
[2019-01-01] MEDS: METOPROLOL TARTRATE 25 MG TAB PO SCH ×2 (09:01→20:51)
[2019-01-01] MEDS: FENOFIBRATE NANOCRYSTALLIZED 145 MG TABLET PO SCH (09:01)
[2019-01-01] MEDS: FAMOTIDINE 20 MG TAB PO SCH (09:01)
[2019-01-01] MEDS: SUCRALFATE 1 GM/10 ML UDC PO SCH ×4 (09:02→20:51)
[2019-01-01] MEDS: GABAPENTIN 100 MG CAP PO SCH (09:02)
[2019-01-01] MEDS: ASPIRIN 81 MG ECTAB PO SCH (09:02)
[2019-01-01] MEDS: CITALOPRAM 40 MG TAB PO SCH (09:02)
[2019-01-01] MEDS: CHOLECALCIFEROL 1,000 UNITS TAB PO SCH (09:02)
[2019-01-01] MEDS: INSULIN GLARGINE SOLOSTAR 100 UNITS/ML 3 ML PEN SC SCH (09:02)
[2019-01-01] MEDS: DOXYCYCLINE HYCLATE 100 MG in DEXTROSE 5% 100 ML IV SCH ×2 (09:03→20:53)
[2019-01-01] MEDS: OXYCODONE HCL IR 5 MG TAB (IMMEDIATE RELEASE) PO PRN ×2 (09:26→22:48)
--- NOTE | 2019-01-01 09:29 | Hospitalist Progress Note ---
Date of Service January 01, 2019 Assessment & Plan (1) Acute hypoxemic respiratory failure: Secondary to pulmonary congestion, hx ESRD on HD. Resolving, status post hemodialysis yesterday, plan for hemodialysis tomorrow Appreciate nephrology recommendations Chest pain possibly from pill (Doxycycline) induced esophagitis hx GERD as per records Significant relief following GI cocktail at the ER --Convert doxycycline to IV for now Start Protonix IV twice a day, sacral fate 4 times daily Monitor 01/01/2019 Markedly improved Continue Protonix, sucralfate Right foot cellulitis/with extension to RLE Rule out foot abscess --Start IV Zosyn and doxycycline for broader anaerobic coverage in light of diabetes type 2 --Patient reports this only started 2 days ago 01/01/2019, evaluated by podiatry service, status post I&D of the mole on the plantar aspect of the right foot Wound drainage cultures ordered Continue empiric IV Zosyn and doxycycline Monitor hypertension, stable DM 2, insulin requiring, well controlled as of recent outpatient hemoglobin A1c of 5 last March 2018 history PE/DVT status post anticoagulation chronic anemia secondary to ESRD, hemoglobin at baseline past tobacco abuse DVT prophylaxis. Heparin subcu Full code Disposition Pending Usually lives at home Subjective Follow-up for chest pain related to pill esophagitis, right lower extremity cellulitis Seen resting in bed, comfortable, no distress, in good spirits States substernal chest pain has markedly improved compared to yesterday, no nausea, tolerating diet well Right lower extremity also improving No fevers or chills Denies other symptoms Physical Exam Vital Signs (Past 24 Hours): Last Vital Signs Temp 36.9 C 01/01/19 07:43 Pulse 85 01/01/19 07:43 Resp 20 01/01/19 07:43 BP 156/66 H 01/01/19 07:43 Pulse Ox 95 01/01/19 07:43 Physical Exam: General- oriented x 3, not in distress, speaks in sentences with no effort or accessory muscle use Eyes- anicteric Neck- no JVD Lungs- clear breath sounds bilaterally Heart- normal rate, regular rhythm; no murmurs Abdomen- normal bowel sounds, nondistended, soft, nontender Extremities-right lower extremity: Positive mild erythema on the right lower extremity distal aspect also has moderate warmth, positive moderate erythema on the dorsum of the right foot and also with moderate warmth today for bullae on the plantar aspect between the great toe and the second toe, no calf tenderness Left lower extremity essentially normal Neuro- alert, oriented x 3; no gross focal neurologic deficits Skin- warm & dry Results & Data Laboratory Results Laboratory Results - last 24 hr 12/31/18 01/01/19 01/01/19 20:10 00:06 00:06 WBC 10.37 RBC 2.85 L Hgb 9.6 L Hct 29.8 L MCV 104.6 H MCH 33.7 MCHC 32.2 RDW Std Deviation 52.1 H RDW Coeff of Erum 13.8 Plt Count 160 MPV 9.7 Immature Gran % (Auto) 0.4 Neut % (Auto) 84.4 Lymph % (Auto) 7.4 [place] % (Auto) 7.2 Eos % (Auto) 0.4 Baso % (Auto) 0.2 Immature Gran # (Auto) 0.04 H Neut # (Auto) 8.75 H Lymph # (Auto) 0.77 L [place] # (Auto) 0.75 H Eos # (Auto) 0.04 Baso # (Auto) 0.02 Sodium 133 L Potassium 3.9 Chloride 97 L Carbon Dioxide 29 Anion Gap 7.0 BUN 33 H Creatinine 4.35 H D Est Cr Clr Drug Dosing 16.0 Est GFR ( Amer) 11.7 Est GFR (Non-Af Amer) 10.1 BUN/Creatinine Ratio 7.7 L Glucose 107 H POC Glucose 78 Calcium 8.3 L Phosphorus 4.6 Magnesium 2.1 Total Bilirubin 0.7 AST 27 ALT 24 Alkaline Phosphatase 54 Ammonia Total Protein 7.2 Albumin 2.6 L Globulin 4.6 H Albumin/Globulin Ratio 0.6 L 01/01/19 01/01/19 01/01/19 00:06 05:32 07:35 WBC 9.01 RBC 2.82 L Hgb 9.2 L Hct 29.1 L MCV 103.2 H MCH 32.6 MCHC 31.6 L RDW Std Deviation 52.0 H RDW Coeff of Erum 13.7 Plt Count 156 MPV 9.8 Immature Gran % (Auto) 1.0 Neut % (Auto) 77.0 Lymph % (Auto) 13.1 [place] % (Auto) 7.9 Eos % (Auto) 0.8 Baso % (Auto) 0.2 Immature Gran # (Auto) 0.09 H Neut # (Auto) 6.94 H Lymph # (Auto) 1.18 L [place] # (Auto) 0.71 H Eos # (Auto) 0.07 Baso # (Auto) 0.02 Sodium Potassium Chloride Carbon Dioxide Anion Gap BUN Creatinine Est Cr Clr Drug Dosing Est GFR ( Amer) Est GFR (Non-Af Amer) BUN/Creatinine Ratio Glucose POC Glucose 73 Calcium Phosphorus Magnesium Total Bilirubin AST ALT Alkaline Phosphatase Ammonia 17.0 Total Protein Albumin Globulin Albumin/Globulin Ratio 01/01/19 01/01/19 11:15 16:17 WBC RBC Hgb Hct MCV MCH MCHC RDW Std Deviation RDW Coeff of Erum Plt Count MPV Immature Gran % (Auto) Neut % (Auto) Lymph % (Auto) [place] % (Auto) Eos % (Auto) Baso % (Auto) Immature Gran # (Auto) Neut # (Auto) Lymph # (Auto) [place] # (Auto) Eos # (Auto) Baso # (Auto) Sodium Potassium Chloride Carbon Dioxide Anion Gap BUN Creatinine Est Cr Clr Drug Dosing Est GFR ( Amer) Est GFR (Non-Af Amer) BUN/Creatinine Ratio Glucose POC Glucose 102 H 105 H Calcium Phosphorus Magnesium Total Bilirubin AST ALT Alkaline Phosphatase Ammonia Total Protein Albumin Globulin Albumin/Globulin Ratio
--- NOTE | 2019-01-01 18:43 | Nephrology Progress Note ---
Date of Service January 01, 2019 Assessment & Plan (1) End stage renal disease on dialysis: on TRSat HD -next HD tentatively for 01/02 depending on clinical condition -she does not appear floridly overloaded on exam -mini heparin w/ HD and anemia meds as indicated ->>for now w/ esophagitis velforo on hold; need to know if she can tolerate binders though; unfortnately no granules avail -will repeat phos in am. -velforo nonformulary -- pt will either resume 500 mg ac from her own verified s upply or start phosLo 2 ac/1 snack; pharmacy and nursing help w/ this appreciated (2) Cellulitis of leg, right: po meds stopped and getting treatment for esophagitis -LE dopper negative -on IV doxy, on zosyn (3) Delirium: resolved; apparently related to extreme fatigue and first rest in several days Subjective seen on rounds this am 0720; feeling much improved, no confusion like last evening; ambulating w/ walker unassisted and confidently as at baseline; had not slept at all for several days prior to admission she states. no n/v. no sob. no edema. Physical Exam Vital Signs (Past 24 Hours): Last Vital Signs Temp 36.3 C L 01/01/19 14:58 Pulse 90 01/01/19 14:58 Resp 14 01/01/19 14:58 BP 95/61 L 01/01/19 14:58 Pulse Ox 90 01/01/19 14:58 Constitutional: well developed, well nourished, + obese and well groomed on RA ambulatory w/ walker Eyes: EOM intact bilaterally ENMT: Ears: no external ear abnormality Nose: no external nose abnormality Mouth: + dry oral mucous membranes Neck: no nuchal rigidity Respiratory: normal respiratory effort Auscultation: + diminished lung sounds Cardiovascular: Rate/Rhythm: regular rate and regular rhythm Extremities: + edema (trace RLE) and + AV fistula (LUE proximal) Gastrointestinal (Abdomen): Inspection/Auscultation: normal bowel sounds Percussion/Palpation: abdomen soft; abdomen nontender Musculoskeletal: Extremities: strength 5/5 throughout Skin: no rashes, warm and dry Neurologic: valdez, fluent speech Psychiatric: A+Ox3, euthymic affect Motor Behavior: no psychomotor agitation Results & Data Laboratory Results Abnormal lab results 01/01/19 01/01/19 01/01/19 Range/Units 00:06 00:06 05:32 RBC 2.85 L 2.82 L (4.2-5.4) M/uL Hgb 9.6 L 9.2 L (12.0-16.0) g/dL Hct 29.8 L 29.1 L (37-47) % MCV 104.6 H 103.2 H (80-100) fL MCHC 31.6 L (32-36) g/dL RDW Std Deviation 52.1 H 52.0 H (36.4-46.3) fL Immature Gran # (Auto) 0.04 H 0.09 H (0.00-0.02) K/uL Neut # (Auto) 8.75 H 6.94 H (1.4-6.5) K/uL Lymph # (Auto) 0.77 L 1.18 L (1.2-3.4) K/uL [place] # (Auto) 0.75 H 0.71 H (0.11-0.59) K/uL Sodium 133 L (136-145) mmol/L Chloride 97 L (98-107) mmol/L BUN 33 H (7-18) mg/dl Creatinine 4.35 H D (0.6-1.2) mg/dl BUN/Creatinine Ratio 7.7 L (10-20) Glucose 107 H (70-99) mg/dl POC Glucose (70-99) Calcium 8.3 L (8.5-10.1) mg/dl Albumin 2.6 L (3.4-5.0) gm/dl Globulin 4.6 H (2.5-4.0) gm/dl Albumin/Globulin Ratio 0.6 L (0.9-2) 01/01/19 01/01/19 Range/Units 11:15 16:17 RBC (4.2-5.4) M/uL Hgb (12.0-16.0) g/dL Hct (37-47) % MCV (80-100) fL MCHC (32-36) g/dL RDW Std Deviation (36.4-46.3) fL Immature Gran # (Auto) (0.00-0.02) K/uL Neut # (Auto) (1.4-6.5) K/uL Lymph # (Auto) (1.2-3.4) K/uL [place] # (Auto) (0.11-0.59) K/uL Sodium (136-145) mmol/L Chloride (98-107) mmol/L BUN (7-18) mg/dl Creatinine (0.6-1.2) mg/dl BUN/Creatinine Ratio (10-20) Glucose (70-99) mg/dl POC Glucose 102 H 105 H (70-99) Calcium (8.5-10.1) mg/dl Albumin (3.4-5.0) gm/dl Globulin (2.5-4.0) gm/dl Albumin/Globulin Ratio (0.9-2)
--- NOTE | 2019-01-01 20:36 | Consultation Report ---
DATE OF CONSULTATION: 01/01/2019 HISTORY OF PRESENT ILLNESS: The patient is seen at the bedside at the request of the hospitalist. The patient is well known to Dr. Conway and sees him on a regular basis. The patient was admitted with chest pain, questionable underlying etiology possible secondary to p.o. oral antibiotics. The patient notes she last saw the stunner and shackler, Dr. Conway, in October, was not having problems with the right foot or leg at that time. Recently saw her primary care physician, Dr. Cameron, who placed her on Keflex and doxycycline; however, it was not clear of the exact timing or antibiotics that she was placed on. Upon questioning, patient notes that she may have stepped on some glass on her right foot, but is unsure of the timing again. The patient has a longstanding history of diabetes, short history of smoking which she quit 25 years ago and is currently undergoing dialysis Friday, and Friday secondary to end-stage renal disease. The patient notes no problems with her feet up until this recent bout of cellulitis; however, is a poor historian. The patient denies fevers, chills or night sweats. PAST SURGICAL HISTORY: Cholecystectomy, inguinal repair, hip replacement, urology surgery, resection of colon in 2012. PAST MEDICAL HISTORY: End-stage renal disease, currently on dialysis 3 times a week, NIDDM, history of PE, history of DVT, osteoporosis, psoriasis, hyperlipidemia and CAD. SOCIAL HISTORY: One pack smoking year, quit 25 years ago. FAMILY HISTORY: Breast CA, lung CA, rheumatoid arthritis. PHYSICAL EXAMINATION: VITAL SIGNS: Afebrile. BP 140/60, pulse 76, respirations 20, temperature 36.9, O2 sat 95 on room air. CONSTITUTIONAL: The patient is morbidly obese. LOWER EXTREMITY EXAMINATION: VASCULAR: DP nonpalpable, PT nonpalpable. Absence of digital hair is noted. There is fusiform swelling noted over the right foot dorsally and right leg +2/6, nonpitting. DERMATOLOGIC: Severe hyperkeratotic buildup noted over the interphalangeal joint, metatarsophalangeal joint. There is a bullous lesion over the right first interspace plantarly upon removal and denuding of the skin. There are 3 distinct areas showing yellow fibrotic tissue. There is no foreign body noted in these areas; however, cannot be completely excluded. Redness emanating from the right first interspace emanating dorsally and mild involvement in the lower tibia. Purulent serosanguineous fluid noted upon denuding of the skin dorsal and plantarly over the first interspace. No malodor is present, there appears to be no tracking. Abscess was located superficially. NEUROLOGIC: Epicritic sensation decreased. MUSCULOSKELETAL: PIPJ contracture noted 2 through 5. Labs continue to show a shift to left. WBC count is returned to normal from 11.2 to down to 10.37, however, increased neutrophils and immature granulocytes still noted. X-rays nonweightbearing of poor quality were reviewed showing vessel calcification over the right first interspace. No opaque foreign body is noted. There is an abnormality with increased signal noted over the third metatarsal neck area; however, due to the digital contracture, unable to fully identify if this is a fracture line. Second metatarsal head is also abnormal with bone cyst formation noted in the medial and lateral aspects of the head. X-ray report was read with a fracture over the base of the proximal phalanx; however, this may be an accessory sesamoid over the fifth MTPJ rather than an acute fracture. Venous Doppler was negative. IMPRESSION: 1. Cellulitis, right lower extremity. 2. Abscess, right first interspace. 3. Hvs-[id number]-hdxoywdag diabetes mellitus with peripheral vascular disease. 4. Hammertoes 2 through 5. TREATMENT: 1. I and D performed at bedside over the interphalangeal joint, culture obtained - aerobic and anaerobic and Gram stain for the right second interspace. 2. Continue IV antibiotics. 3. From a podiatry standpoint, can be discharged home on oral meds once cleared from a cardiovascular standpoint. Recommend Neosporin ointment and dressing daily for the next week. We will discuss the case with Dr. Conway and have the patient follow up with Dr. Conway in 1 week. May consider an MRI for deeper foreign body and/or vascular workup due to the vessel calcification and nonpalpable pulses if he is failing to respond to outpatient oral antibiotics. Reconsult if needed. Thank you for the consult.
[2019-01-01] MEDS: CALCIUM ACETATE 667 MG CAP PO SCH (20:51)
[2019-01-01] MEDS: SIMVASTATIN 20 MG TAB PO SCH (20:53)
[2019-01-02] MEDS: HEPARIN SOD 5,000 UNIT/0.5 ML VIAL SQ SCH ×3 (05:21→22:22)
[2019-01-02] MEDS: PANTOprazole 40 MG in SYRINGE 0 ML IV SCH ×2 (08:17→22:59)
[2019-01-02] MEDS: SUCRALFATE 1 GM/10 ML UDC PO SCH ×4 (08:17→22:21)
[2019-01-02] MEDS: ROPINIROLE HCL 0.25 MG TABLET PO SCH ×2 (08:18→22:21)
[2019-01-02] MEDS: CALCIUM ACETATE 667 MG CAP PO SCH ×4 (08:20→21:10)
[2019-01-02] MEDS: CITALOPRAM 40 MG TAB PO SCH (08:20)
[2019-01-02] MEDS: CHOLECALCIFEROL 1,000 UNITS TAB PO SCH (08:20)
[2019-01-02] MEDS: FENOFIBRATE NANOCRYSTALLIZED 145 MG TABLET PO SCH (08:21)
[2019-01-02] MEDS: METOPROLOL TARTRATE 25 MG TAB PO SCH ×2 (08:21→22:24)
[2019-01-02] MEDS: ASPIRIN 81 MG ECTAB PO SCH (08:23)
[2019-01-02] MEDS: FAMOTIDINE 20 MG TAB PO SCH (08:24)
[2019-01-02] MEDS: GABAPENTIN 100 MG CAP PO SCH ×2 (08:25→20:02)
[2019-01-02] MEDS: DOXYCYCLINE HYCLATE 100 MG in DEXTROSE 5% 100 ML IV SCH ×2 (08:26→22:59)
[2019-01-02] MEDS: INSULIN ASPART 100 UNITS/ML 3 ML PEN SC SCH ×4 (08:27→21:39)
[2019-01-02] MEDS: INSULIN GLARGINE SOLOSTAR 100 UNITS/ML 3 ML PEN SC SCH (08:29)
[2019-01-02] MEDS ORDERED: HEPARIN SOD (PORCINE) 1000 UNIT/ML 10 ML VIAL IV ONE (08:58)
[2019-01-02] MEDS ORDERED: SODIUM CHLORIDE 0.9% 1000ML 1,000 ML IV PRN (08:58)
[2019-01-02] MEDS ORDERED: EPOETIN ALFA 4,000 UNIT/ML VIAL IV SCH (09:30)
[2019-01-02] MEDS: PIPERACILLIN/TAZOBACTAM 4.5 GM in DEXTROSE 5% 100 ML IV SCH ×2 (10:23→22:59)
[2019-01-02] MEDS ORDERED: LEVALBUTEROL 1.25MG/0.5ML NEB NEB STA (11:31)
[2019-01-02] MEDS ORDERED: XOPENEX/ATROVENT 1.25mg/0.5MG NEB COMBO NEB PRN (11:35)
[2019-01-02] MEDS ORDERED: LEVALBUTEROL 1.25MG/0.5ML NEB INH SCH (11:45)
[2019-01-02] MEDS ORDERED: IPRATROPIUM BROMIDE NEB SOLN 0.02% 2.5 ML VIAL INH SCH (11:45)
[2019-01-02] MEDS ORDERED: LEVALBUTEROL 1.25MG/0.5ML NEB INH PRN (12:00)
[2019-01-02] MEDS ORDERED: IPRATROPIUM BROMIDE NEB SOLN 0.02% 2.5 ML VIAL INH PRN (12:00)
[2019-01-02] MEDS: HEPARIN SOD (PORCINE) 1000 UNIT/ML 10 ML VIAL IV SCH ×3 (17:00→18:50)
--- NOTE | 2019-01-02 17:09 | Dialysis Progress Note ---
Date of Service January 02, 2019 Assessment & Plan (1) End stage renal disease on dialysis: on TRSat HD -next HD tentatively for 01/05 depending on clinical condition -she does not appear floridly overloaded on exam -mini heparin w/ HD and anemia meds as indicated ->>for now w/ esophagitis velforo on hold; need to know if she can tolerate binders though; unfortnately no granules avail -phos is 7.2 -velforo nonformulary -- for this hospital stay pt on phosLo 2 ac/1 snack >>>>pt thinks velforo may have contributed to esophagitis and will try to change to other binder as outpt as insurance permits (2) Cellulitis of leg, right: po meds stopped and getting treatment for esophagitis -LE dopper negative -on IV doxy, on zosyn Subjective seen on dialysis. tolerating tx well. tired; no swelling; no sob; no n/v; no Physical Exam Vital Signs (Past 24 Hours): Last Vital Signs Temp 36.7 C 01/02/19 14:53 Pulse 86 01/02/19 14:53 Resp 20 01/02/19 14:53 BP 129/79 01/02/19 14:53 Pulse Ox 96 01/02/19 14:53 Constitutional: well developed, well nourished, + obese and well groomed on RA Eyes: EOM intact bilaterally ENMT: Ears: no external ear abnormality Nose: no external nose abnormality Mouth: + dry oral mucous membranes Neck: no nuchal rigidity Respiratory: normal respiratory effort Auscultation: + diminished lung sounds Cardiovascular: Rate/Rhythm: regular rate and regular rhythm Extremities: + edema (trace RLE) and + AV fistula (LUE proximal) Gastrointestinal (Abdomen): Inspection/Auscultation: normal bowel sounds Percussion/Palpation: abdomen soft; abdomen nontender Musculoskeletal: Extremities: strength 5/5 throughout Skin: no rashes, warm and dry Neurologic: valdez, fluent speech Psychiatric: A+Ox3, euthymic affect Orientation: oriented x 3 Motor Behavior: no psychomotor agitation Results & Data Laboratory Results reviewed
--- NOTE | 2019-01-02 18:02 | Hospitalist Progress Note ---
Date of Service January 02, 2019 Assessment & Plan (1) Acute hypoxemic respiratory failure: Secondary to pulmonary congestion, hx ESRD on HD. Resolving, likely in the office today Appreciate nephrology recommendations Chest pain possibly from pill (Doxycycline) induced esophagitis hx GERD as per records Significant relief following GI cocktail at the ER --Convert doxycycline to IV for now Start Protonix IV twice a day, sacral fate 4 times daily Monitor January 02, 2019 Resolved Continue Protonix, sucralfate Right foot cellulitis/with extension to RLE Rule out foot abscess --Start IV Zosyn and doxycycline for broader anaerobic coverage in light of diabetes type 2 --Patient reports this only started 2 days ago January 02, 2019, evaluated by podiatry service, status post I&D of the mole on the plantar aspect of the right foot Wound drainage cultures ordered, pending Improving Continue empiric IV Zosyn and doxycycline Monitor hypertension, stable DM 2, insulin requiring, well controlled as of recent outpatient hemoglobin A1c of 5 last March 2018 Blood pressure in the low side Dizziness symptoms, insulin sliding scale only for now history PE/DVT status post anticoagulation chronic anemia secondary to ESRD, hemoglobin at baseline past tobacco abuse DVT prophylaxis. Heparin subcu Full code Disposition Pending Usually lives at home Subjective Follow-up for chest pain secondary to pill esophagitis, right lower external otitis Seen resting in bed comfortable States she continues to feels improved Chest pain is resolved No nausea tolerating diet well Right lower leg pain also improving No fevers or chills Denies other symptoms Physical Exam Vital Signs (Past 24 Hours): Last Vital Signs Temp 36.9 C 01/02/19 15:47 Pulse 83 01/02/19 17:20 Resp 20 01/02/19 14:53 BP 131/61 01/02/19 17:20 Pulse Ox 96 01/02/19 14:53 Physical Exam: General- oriented x 3, not in distress, speaks in sentences with no effort or accessory muscle use Eyes- anicteric Neck- no JVD Lungs- clear BS bilaterally Heart- normal rate, regular rhythm; no murmurs Abdomen- normal bowel sounds, nondistended, soft, nontender Extremities-right lower extremity: Lower leg erythema continues to improve, warmth also improving Erythema on the dorsum also improving Probably resolved status post incision and drainage Erythema improving No pretibial edema, no calf tenderness Neuro- alert, oriented x 3; no gross focal neurologic deficits Skin- warm & dry Results & Data Laboratory Results Laboratory Results - last 24 hr 01/01/19 01/02/19 01/02/19 20:14 07:18 07:29 POC Glucose 95 68 L* Phosphorus 7.2 H D 01/02/19 01/02/19 07:30 11:42 POC Glucose 71 89 Phosphorus
[2019-01-02] MEDS: OXYCODONE HCL IR 5 MG TAB (IMMEDIATE RELEASE) PO PRN (22:20)
[2019-01-02] MEDS: SIMVASTATIN 20 MG TAB PO SCH (22:22)
[2019-01-03] MEDS: HEPARIN SOD 5,000 UNIT/0.5 ML VIAL SQ SCH ×2 (06:59→12:09)
[2019-01-03] MEDS: INSULIN ASPART 100 UNITS/ML 3 ML PEN SC SCH ×2 (07:57→12:08)
[2019-01-03] MEDS: CALCIUM ACETATE 667 MG CAP PO SCH ×2 (07:58→12:09)
[2019-01-03] MEDS: ROPINIROLE HCL 0.25 MG TABLET PO SCH (07:58)
[2019-01-03] MEDS: FENOFIBRATE NANOCRYSTALLIZED 145 MG TABLET PO SCH (07:58)
[2019-01-03] MEDS: CITALOPRAM 40 MG TAB PO SCH (07:59)
[2019-01-03] MEDS: CHOLECALCIFEROL 1,000 UNITS TAB PO SCH (07:59)
[2019-01-03] MEDS: GABAPENTIN 100 MG CAP PO SCH (07:59)
[2019-01-03] MEDS: FAMOTIDINE 20 MG TAB PO SCH (07:59)
[2019-01-03] MEDS: METOPROLOL TARTRATE 25 MG TAB PO SCH (08:00)
[2019-01-03] MEDS: SUCRALFATE 1 GM/10 ML UDC PO SCH (08:00)
[2019-01-03] MEDS: ASPIRIN 81 MG ECTAB PO SCH (08:02)
[2019-01-03] MEDS: PANTOprazole 40 MG in SYRINGE 0 ML IV SCH (08:16)
[2019-01-03] MEDS: DOXYCYCLINE HYCLATE 100 MG in DEXTROSE 5% 100 ML IV SCH (08:16)
[2019-01-03] MEDS: PIPERACILLIN/TAZOBACTAM 4.5 GM in DEXTROSE 5% 100 ML IV SCH (09:56)
[2019-01-03 12:00] VITALS: BP 121/69; PULSE 74; TEMP 97.5; O2SAT 97
[2019-01-03] MEDS ORDERED: SUCRALFATE 1 GM TAB PO SCH (13:00)
--- NOTE | 2019-01-03 14:29 | Hospitalist Progress Note ---
Date of Service January 03, 2019 Assessment & Plan (1) Acute hypoxemic respiratory failure: Secondary to pulmonary congestion, hx ESRD on HD. resolved after HD Appreciate nephrology recommendations resume usual HD sessions Chest pain possibly from pill (Doxycycline) induced esophagitis hx GERD as per records Significant relief following GI cocktail at the ER -- given Protonix, sucralfate resolved continue Protonix 40mg BID and Sucralfate QID x 3 more days then Protonix 40mg po daily x 3 weeks Right Lower Leg, Foot cellulitis and Foot Abscess, MSSA --given IV Zosyn and IV doxycycline x 4 days evaluated by podiatry service Dr. Hook, status post I&D of the abscess on the plantar aspect of the right foot Wound drainage cultures: (+) MSSA improving nicely continue Augmentin 500mg daily after HD x 6 more days advised to ff up with [employer] this week hypertension, stable DM 2, insulin requiring, well controlled as of recent outpatient hemoglobin A1c of 5 last March 2018 -- BSGs on the low side -- patient advised to reduced Insulin Glargine to 20 units from 24 units BID, please follow up as outpatient history PE/DVT status post anticoagulation chronic anemia secondary to ESRD, hemoglobin at baseline past tobacco abuse Disposition d/c home today ff up with [facility] [employer] this week ff up with PCP this week- sched office closed, patient will be called for appt HD as scheduled. declined home health with services Subjective ff up for chest pain, leg cellulitis seen resting in bed, comfortable in good spirits states she feels great denies chest pain, nausea, shortness of breath, leg pain no fever/chills states she is ready and would like to be discharged today Physical Exam Vital Signs (Past 24 Hours): Last Vital Signs Temp 36.4 C L 01/03/19 11:59 Pulse 74 01/03/19 11:59 Resp 20 01/03/19 11:59 BP 121/69 01/03/19 11:59 Pulse Ox 97 01/03/19 11:59 Physical Exam: General- oriented x 3, not in distress, speaks in sentences with no effort or accessory muscle use Eyes- anicteric Neck- no JVD Lungs- clear breath sounds bilaterally no crackles, no wheezing Heart- normal rate, regular rhythm; no murmurs Abdomen- normal bowel sounds, nondistended, soft, nontender Extremities-right lower ext: erythema, warmth much improved wound on the plantar aspect bet 1-2 toe: healing well, no discharge no pretibial edema, no calf tenderness Neuro- alert, oriented x 3; no gross focal neurologic deficits Skin- warm & dry Results & Data Laboratory Results Laboratory Results - last 24 hr 01/02/19 01/02/19 01/02/19 19:57 19:58 21:24 POC Glucose 70 79 76 01/03/19 01/03/19 07:20 11:25 POC Glucose 96 111 H
--- NOTE | 2019-01-03 14:54 | Discharge Summary ---
Date of Service January 03, 2019 Admission HPI Per Admitting Provider History obtained from patient, family, and records. Medical history significant for hypertension, ESRD on HD, DM 2, insulin requiring history PE/DVT status post anticoagulation, chronic anemia baseline hemoglobin of 10, past tobacco abuse, GERD as per records. Recent confinement January 2016 for LLE cellulitis. Patient seen at PCPs office 2 days ago for pain and swelling on the right foot noted the last week. Patient not sure if she stepped on something. Low-grade fever at home as per . Redness noted on right foot dorsum and pustule/calluses/skin cracks noted on right foot plantar aspect as per PCP's note two days ago. Patient prescribed Keflex and Doxycycline, first doses taken yesterday as per patient. Right foot swelling unimproved. This morning patient woke up with burning chest pain going across her chest, with shortness of breath followed by nausea and emesis which patient attributes to anxiety. No unusual cough symptoms as per patient. No relief with nitro given by EMS. Significant relief of chest pain following GI cocktail administered at the ER. Patient noted to be hypoxemic at the ER, O2 sats 80s. Patient compliant with Friday hemodialysis. Denies unusual fluid retention. Patient currently comfortable. Medical History as above DSE March 2018: No ischemia, EF 65 to 69%, concentric LVH, diastolic dysfunction Surgical History : Hernia repair, hip surgery, cholecystectomy, vascular procedures/thrombectomy, urologic procedures, breast lesion excision, joint aspiration Family History : Breast cancer, lung cancer, rheumatoid arthritis Personal/Social history : Past tobacco abuse, no EtOH intake, retired [employer] employee Admission Exam Per Admitting Provider Vital Signs (Past 24 Hours): Last Vital Signs Temp 36.7 C 12/31/18 02:56 Pulse 79 12/31/18 04:39 Resp 18 12/31/18 04:39 BP 110/50 L 12/31/18 04:39 Pulse Ox 100 12/31/18 04:39 Physical Exam: GENERAL: Comfortable, pleasant, looks younger for stated age, no respiratory distress, obese SKIN: Sallow, warm HEENT: Pale palpebral conjunctivae, no ptosis, dry buccal mucosa, nasal cannula in place NECK : Supple, short neck, no tenderness CHEST : Decreased breath sounds, anterior chest wall tenderness HEART : RRR, no obvious murmurs ABDOMEN: Some distention, nontender EXTREMITIES : RLE swelling; erythematous, tender right streaky induration right foot dorsum, no other conspicuous deformities noted NEUROLOGIC : Coherent, no facial asymmetry, no other gross focality Principal Diagnosis CHEST PAIN SECONDARY TO PILL ESOPHAGITIS, RIGHT FOOT ABSCESS, RIGHT LOWER LEG AND FOOT CELLULITIS Discharge Exam Vital Signs (Past 24 Hours): Last Vital Signs Temp 36.4 C L 01/03/19 11:59 Pulse 74 01/03/19 11:59 Resp 20 01/03/19 11:59 BP 121/69 01/03/19 11:59 Pulse Ox 97 01/03/19 11:59 Physical Exam: General- oriented x 3, not in distress, speaks in sentences with no effort or accessory muscle use Eyes- anicteric Neck- no JVD Lungs- clear breath sounds bilaterally no crackles, no wheezing Heart- normal rate, regular rhythm; no murmurs Abdomen- normal bowel sounds, nondistended, soft, nontender Extremities-right lower ext: erythema, warmth much improved wound on the plantar aspect bet 1-2 toe: healing well, no discharge no pretibial edema, no calf tenderness Neuro- alert, oriented x 3; no gross focal neurologic deficits Skin- warm & dry Discharge Data Allergies Allergy/AdvReac Type Severity Reaction Status Date / Time Sulfa (Sulfonamide Allergy Mild hives Verified 12/31/18 05:04 Antibiotics) Consultations 12/31/18 04:33 ED Decision to Admit Stat 12/31/18 09:46 Consult Nephrology Routine 12/31/18 17:45 Consult Podiatry Routine Ordered Studies 12/31/18 02:58 US venous doppler LE BI Urgent IMPRESSION: No acute DVT within the right or left lower extremity. 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 12/31/18 09:46 FL foot RT 3V Urgent DISCUSSION: The bones are osteopenic. There is a fracture involving the proximal phalange the fifth toe, likely subacute or chronic. . There are chronic deformities of the second and third metatarsal necks. There are vascular calcifications present. There are no dislocations. IMPRESSION: 1. Osteopenia 2. Chronic deformities of the second and third metatarsal necks 3. Fracture involving the proximal phalanx of the fifth toe likely subacute or chronic 4. Vascular calcifications. Hospital Course (1) Acute hypoxemic respiratory failure: Secondary to pulmonary congestion, hx ESRD on HD. resolved after HD Appreciate nephrology recommendations resume usual HD sessions Chest pain possibly from pill (Doxycycline) induced esophagitis hx GERD as per records Significant relief following GI cocktail at the ER -- given Protonix, sucralfate resolved continue Protonix 40mg BID and Sucralfate QID x 3 more days then Protonix 40mg po daily x 3 weeks Right Lower Leg, Foot cellulitis and Foot Abscess, MSSA --given IV Zosyn and IV doxycycline x 4 days evaluated by podiatry service Dr. Hook, status post I&D of the abscess on the plantar aspect of the right foot Wound drainage cultures: (+) MSSA improving nicely continue Augmentin 500mg daily after HD x 6 more days advised to ff up with [employer]ader this week hypertension, stable DM 2, insulin requiring, well controlled as of recent outpatient hemoglobin A1c of 5 last March 2018 -- BSGs on the low side -- patient advised to reduced Insulin Glargine to 20 units from 24 units BID, please follow up as outpatient history PE/DVT status post anticoagulation chronic anemia secondary to ESRD, hemoglobin at baseline Disposition d/c home today ff up with [facility]ana Gr[facility] this week ff up with PCP this week- sched office closed, patient will be called for appt HD as scheduled. declined home health with services Total Time Total Time Spent Total Time Spent (In Minutes): 40 MINUTES Discharge Plan Discharge Items Reason For Visit: RESP FAILURE Discharge Diagnosis: CHEST PAIN SECONDARY TO ESOPHAGITIS; RIGHT FOOT ABSCESS, RIGHT LOWER LEG AND FOOT ABSCESS Condition: Good Discharge Goals: Diagnostic testing Activity: As commented below Activity Comment: RESUME ACTIVITY GRADUALLY TOLERATED Driving/Machine Use Comment: NO DRIVING UNTIL RE-EVALUATED BY PRIMARY CARE PHYSICIAN ON FOLLOW UP Non-emergency contact: Primary Care Provider Call non-emergency contact if: you have any medication questions, your symptoms worsen, your pain is not controlled, your pain is worsening, your pain is unusual for you, your pain is concerning for you, you have a fever, your wound has increased redness, your wound has increased drainage and your wound pain has increased Follow-up/Referrals: Willie Epstein [Primary Care Provider] - Diet: Carb Consistent or DM2, Dialysis Renal and Heart Healthy Addtl Provider Instructions: PLEASE FOLLOW UP WITH PRIMARY CARE PHYSICIAN IN 3-5 days, clinic will be calling you for the appointment. Follow-up with fibreglass laminator within this week. Clean wound and change dressing daily as directed. Call primary care physician or your fibreglass laminator or return to the ER immediately if with worsening of symptoms, fevers or chills, increasing redness, warmth, swelling, discharge, bleeding from your wound. Include probiotic or probiotic in your daily diet while completing antibiotic course and at least 1 week after completing antibiotics. Prescriptions: New sucralfate 1 gram Tablet 1 g PO QID 4 Days Qty: 16 RF: 0 amoxicillin-pot clavulanate [Augmentin] 500-125 mg tablet 1 tab PO DAILY Qty: 6 RF: 0 pantoprazole [Protonix] 40 mg tablet,delayed release (DR/EC) 40 mg PO DAILY 10 Days Qty: 10 RF: 0 Neosporin (bfa-tdo-mtyzo) 3.5mg-400 unit- 5,000 unit/gram ointment 1 appln TOP BID 10 Days Qty: 14.2 RF: 0 Continued aspirin 81 mg Tablet,Chewable 81 mg PO DAILY RF: 0 cinacalcet [Sensipar] 30 mg Tablet 30 mg PO DAILY RF: 0 cholecalciferol (vitamin D3) [Vitamin D3] 1,000 unit Tablet 1,000 unit PO DAILY RF: 0 citalopram 40 mg tablet 40 mg PO DAILY RF: 0 gabapentin 100 mg capsule 100 mg PO DAILY RF: 0 gabapentin 100 mg Capsule 100 mg PO 3XWK RF: 0 fenofibrate nanocrystallized 145 mg tablet 145 mg PO DAILY RF: 0 Basaglar KwikPen U-100 Insulin 100 unit/mL (3 mL) insulin pen 20 unit subcut BID RF: 0 oxycodone 15 mg tablet 15 mg PO Q8 PRN (Reason: Pain) RF: 0 simvastatin 20 mg tablet 20 mg PO HS RF: 0 ropinirole 0.5 mg tablet 0.5 mg PO BID RF: 0 metoprolol tartrate 25 mg tablet 12.5 mg PO BID RF: 0 Velphoro 500 mg tablet,chewable 500 mg PO TIDM RF: 0 Stand-Alone Forms: Call Back Authorization, [facility] Admission Data Admit Date/Time: 12/31/18 05:45 Attending Provider: Alonso Shahid Admit Provider: Felix Zavala Primary Care Provider: Willie Epstein Other Providers: Felix Zavala ; Danette Perez ; Tulio Hayes ; Suraj Nugent I ; Nichelle Abreu ; Amanda Montoya ; Lucia Chakraborty ; Simona Hook Service: Telemetry
== END 2019-01-03 17:15 | disposition home or self-care (01) | DRG 602 ==
LOC: ED 02:48 → 2W 05:45

== ENCOUNTER 2021-07-17 12:35 | Observation (INO) ==
--- NOTE | 2021-07-17 16:18 | Emergency Department Note ---
Impression & Plan Sinus pause, End stage renal disease on dialysis, Hyperkalemia ED Provider Note NAME: JAIMEE VENEGAS AGE: 66 SEX: F : 1955 ARRIVES VIA: Walk-In INFORMANT: Patient, ED PROVIDER(S): Elias Joe MD Chief Complaint: Low blood pressure HPI: Patient was furred due to low blood pressure. The patient states that she had gone for her dialysis session but was noted to have low blood pressure and thus no fluid is removed but the patient did complete approximately 2 hours. Patient did miss her Friday session. Patient states that she was not feeling well that morning was [facility] was evaluated and subsequently discharged without any changes or treatments. The patient reportedly had a fall last falling to her right side striking her head although the patient did not pass out. The patient had one episode of vomiting at time. The patient has had some increasing sleep. Patient has any fevers chills chest pains or shortness of breath. Patient denies any current nausea or vomiting. Patient has any recent changes in any antihypertensives. The patient denies any diarrhea. The patient is only had 1 episode of vomiting. Patient does take baby aspirin but no other blood thinning medications. Patient does complain of a mild global achy headache that is nonradiating. Patient denies any neck pain. The patient denies any numbness tingling or focal weakness. Patient has not taken anything for the headache at home. Patient is vaccinated for Covid. She denies any infectious symptoms, chest pains or shortness of breath. ROS: See HPI for pertinent positives and negatives. A total of 10 systems were reviewed and otherwise negative. Past medical history: See below Surgical history: See below Social history: See below Physical Exam: GENERAL: NAD, wearing glasses, wearing a mask, non-toxic. EYE EXAM: Normal conjunctiva. PERRL, no anisocoria and EOM's grossly intact w/o pain. Head: Normocephalic atraumatic. NECK: Supple, no nuchal rigidity, no adenopathy, non-tender. No signs of meningismus. No midline C-spine TTP. LUNGS: Clear to auscultation. Normal chest wall mechanics. HEART: NSR, systolic ejection murmur. ABDOMEN: Abdomen soft, non-tender, normo-active bowel sounds, no masses, no rebound or guarding. BACK: No CVA TTP. SKIN: No rashes and no bruising. UPPER EXTREMITIES: Upper extremities are grossly normal. LOWER EXTREMITIES: Grossly normal, no edema. Decreased range of motion bilateral hips, neurovascular intact distally. No calf pain. NEURO EXAM: A&O x3, cranial nerves II-XII grossly intact, normal speech, moves all 4 extremities on command. No sensory deficits. Differential diagnoses: Infection, dehydration, metabolic abnormality, hypo/hyperglycemia, electrolyte disturbance, anemia, hypoxia, cardiac sources, intracerebral event, toxicologic, neurologic, as well as other pathologies. Course: Patient was seen and evaluated the bedside. Full history physical exam was performed. EKG interpreted by me Sinus bradycardia, rate of 50, normal intervals, normal axis, no ST changes. Imaging Studies: See Below Cardiac monitoring: An order was placed for continuous cardiac monitoring. The monitor shows a rate of 65 with sinus rhythm. MDM: Patient did present with concern for fall nausea and hypertension. The patient did have blood work completed. Patient also did have a CT scan completed. CT head negative. The patient did have a sinus pause. Patient was ordered some calcium. Potassium 5.2. Given the patient's sinus pause but the patient would benefit from telemetry monitoring. I did speak with the on-call hospitalist Dr. Navarro and the patient was admitted to the medicine service. Past Med/Surg History Medical History Anxiety and depression Chronic pain DM type 2 (diabetes mellitus, type 2) IDDM Glucose stable End stage renal disease on dialysis (09/26/14) 2/2 DM - Diaylsis [facility], [facility], Sat (started 8 years ago) - [facility] - follows with Dr. Kumar History of DVT (deep vein thrombosis) > 10 years ago - post op -- RLE -- treated with AC therapy x 3-6 months- d/c'ed no issues since History of pulmonary embolus (PE) > 10 years ago - post op History of renal calculi HLD (hyperlipidemia) HTN (hypertension) Limb alert care status RUE AVF Migraines Obesity Osteoarthritis Osteoporosis Psoriasis RLS (restless legs syndrome) Surgical History H/O inguinal hernia repair H/O partial resection of colon (12/12/12) For diverticulitis History of x 2 History of colonoscopy History of tooth extraction S/P arteriovenous (AV) fistula creation x 2 BL (non functioning on left)--left still in place not working S/P arteriovenous (AV) fistula repair (~03/02/21) right S/P cholecystectomy S/P hip replacement BL Family History Mother Diabetes Sister Diabetes Other No family history of adverse response to anesthesia Social History Smoking Status: Former smoker Second Hand Exposure: No; Hx Alcohol Use: No Hx Substance Use: No Preferred Language: Greenlandic Communication Ability: Effective Supervisor [employer] Required: No Beliefs That Will Affect Care: None marital status: Current Living Situation: Spouse Current Living Situation Comment: Lives with , daughter and grandson Feels Safe at Home: Yes Safety Concerns: Feels Safe At This Time Assistive Devices: Cane, Denture - Upper, Denture - Lower and Walker Allergies Allergies Allergy/AdvReac Type Severity Reaction Status Date / Time nitrofurantoin Allergy Intermediate Hives Verified 07/17/21 16:50 Sulfa (Sulfonamide Allergy Intermediate hives Verified 07/17/21 16:50 Antibiotics) methylprednisolone AdvReac Intermediate SWEATING , Verified 07/17/21 16:50 [From Medrol] HEART RACING Home Meds Home Medications Medication Instructions Recorded Confirmed aspirin 81 mg chewable tablet 81 mg PO QAM 12/31/18 07/17/21 cholecalciferol (vitamin D3) 25 1,000 unit PO QAM 12/31/18 07/17/21 mcg (1,000 unit) tablet (Vitamin D3) gabapentin 100 mg capsule 100 mg PO UD 12/31/18 07/17/21 insulin glargine 100 unit/mL (3 16 unit SUBCUT BID 12/31/18 07/17/21 mL) subcutaneous pen (Basaglar KwikPen U-100 Insulin) simvastatin 20 mg tablet 20 mg PO HS 12/31/18 07/17/21 sucroferric oxyhydroxide 500 mg 1,000 mg PO TIDM 12/31/18 07/17/21 chewable tablet (Velphoro) fluticasone furoate 100 1 inh INHALATION QAM 09/09/19 07/17/21 mcg-vilanterol 25 mcg/dose inhalation powder (Breo Ellipta) polyethylene glycol 3350 17 gram 17 g PO DAILY PRN 09/09/19 07/17/21 oral powder packet (Miralax) lisinopril 20 mg tablet 20 mg PO QAM 02/23/21 07/17/21 albuterol sulfate 90 mcg/actuation 2 puff INHALATION Q4 PRN 04/04/21 07/17/21 aerosol inhaler cinacalcet 60 mg tablet 60 mg PO QAM 04/04/21 07/17/21 citalopram 20 mg tablet 20 mg PO QAM 04/04/21 07/17/21 oxycodone 15 mg tablet 15 mg PO Q8 PRN 04/04/21 07/17/21 ropinirole 0.5 mg tablet 1 mg PO HS 04/04/21 07/17/21 vitamin B complex-vitamin C-folic 1 tab PO QAM 04/04/21 07/17/21 acid 0.8 mg tablet (Nephro-Federico) fluticasone propionate 50 1 spray INTRANASAL DAILY PRN 06/27/21 07/17/21 mcg/actuation nasal spray,suspension (Flonase Allergy Relief) cetirizine 10 mg tablet (Zyrtec) 5 mg PO DAILY 07/17/21 07/17/21 cyanocobalamin (vitamin B-12) 100 100 mcg PO DAILY 07/17/21 07/17/21 mcg tablet Previous Rx's Medication Instructions Recorded benzonatate 100 mg capsule 100 mg PO TID PRN #30 cap 06/29/21 (Kasandra Carlin) Results & Data (ED) Vital Signs Vital Signs - 24 hr 07/17/21 12:49 07/17/21 17:40 07/17/21 17:50 Temperature 36.8 C Temperature Source Temporal Artery Scan Pulse Rate 62 65 58 L Pulse Rate from SpO2 Sensor Respiratory Rate 16 20 14 Respiratory Effort / Characteristics Non-Labored Respiratory Depth Normal Blood Pressure 103/49 L Blood Pressure Mean 67 Pulse Oximetry 98 Oxygen Delivery Method Room Air Sepsis Recent Fever Within 48 Hours No Sepsis New/Unexplained Change in Mental Status No Sepsis Action Taken by Nursing No Action Required 07/17/21 18:00 07/17/21 18:10 07/17/21 18:20 Temperature Temperature Source Pulse Rate 55 L 54 L Pulse Rate from SpO2 Sensor Respiratory Rate 17 18 15 Respiratory Effort / Characteristics Respiratory Depth Blood Pressure Blood Pressure Mean Pulse Oximetry 96 Oxygen Delivery Method Room Air Sepsis Recent Fever Within 48 Hours Sepsis New/Unexplained Change in Mental Status Sepsis Action Taken by Nursing 07/17/21 18:23 07/17/21 18:31 07/17/21 19:14 Temperature Temperature Source Pulse Rate 55 L 65 60 Pulse Rate from SpO2 Sensor Respiratory Rate 19 22 21 Respiratory Effort / Characteristics Respiratory Depth Blood Pressure Blood Pressure Mean 30 Pulse Oximetry 96 Oxygen Delivery Method Room Air Sepsis Recent Fever Within 48 Hours Sepsis New/Unexplained Change in Mental Status Sepsis Action Taken by Nursing 07/17/21 19:20 07/17/21 19:30 07/17/21 20:00 Temperature Temperature Source Pulse Rate 62 72 77 Pulse Rate from SpO2 Sensor 63 Respiratory Rate 21 20 22 Respiratory Effort / Characteristics Respiratory Depth Blood Pressure 145/62 H Blood Pressure Mean 89 Pulse Oximetry 96 Oxygen Delivery Method Sepsis Recent Fever Within 48 Hours Sepsis New/Unexplained Change in Mental Status Sepsis Action Taken by Nursing 07/17/21 20:35 07/17/21 21:00 Temperature Temperature Source Pulse Rate 82 81 Pulse Rate from SpO2 Sensor 82 80 Respiratory Rate 20 22 Respiratory Effort / Characteristics Respiratory Depth Blood Pressure 158/75 H 139/73 Blood Pressure Mean 102 95 Pulse Oximetry 99 92 Oxygen Delivery Method Sepsis Recent Fever Within 48 Hours Sepsis New/Unexplained Change in Mental Status Sepsis Action Taken by Long Term Medications Current Medication List: was personally reviewed by me Laboratory Data Attestation: I reviewed the patient's lab results. Result diagrams: 07/17/21 17:45 07/17/21 17:45 Lab Results 07/17/21 07/17/21 07/17/21 Range/Units 17:45 17:45 17:45 WBC 5.42 (4.8-10.8) K/uL RBC 2.88 L (4.2-5.4) M/uL Hgb 9.2 L (12.0-16.0) g/dL Hct 29.3 L (37-47) % MCV 101.7 H (80-100) fL MCH 31.9 (25-34) pg MCHC 31.4 L (32-36) g/dL RDW Std Deviation 55.3 H (36.4-46.3) fL RDW Coeff of Erum 15.2 H (11.5-14.5) % Plt Count 156 (130-400) K/uL MPV 9.7 (7.4-10.4) fL Immature Gran % (Auto) 0.2 % Neut % (Auto) 56.1 % Lymph % (Auto) 28.4 % Evangeline % (Auto) 7.0 % Eos % (Auto) 7.9 % Baso % (Auto) 0.4 % Neut # (Auto) 3.04 (1.4-6.5) K/uL Lymph # (Auto) 1.54 (1.2-3.4) K/uL Evangeline # (Auto) 0.38 (0.11-0.59) K/uL Eos # (Auto) 0.43 (0-0.5) K/uL Baso # (Auto) 0.02 (0-0.2) K/uL Immature Gran # (Auto) 0.01 (0.00-0.02) K/uL APTT (21.0-31.0) Seconds PTT Ratio Sodium 139 (136-145) mmol/L Potassium 5.2 H (3.5-5.1) mmol/L Chloride 103 (98-107) mmol/L Carbon Dioxide 32 (21-32) mmol/L Anion Gap 4.0 (3-11) BUN 58 H (7-18) mg/dl Creatinine 6.39 H* (0.6-1.2) mg/dl Est Cr Clr Drug Dosing 9.8 ml/min Est GFR ( Amer) 7.2 ml/min Est GFR (Non-Af Amer) 6.2 ml/min BUN/Creatinine Ratio 9.0 L (10-20) Glucose 77 (70-99) mg/dl Calcium 8.6 (8.5-10.1) mg/dl Magnesium 2.6 H (1.8-2.4) mg/dl Total Bilirubin 0.3 (0.2-1) mg/dl AST 17 (15-37) U/L ALT 20 (12-78) U/L Alkaline Phosphatase 87 (45-117) U/L Total Protein 6.8 (6.4-8.2) gm/dl Albumin 2.6 L (3.4-5.0) gm/dl Globulin 4.2 H (2.5-4.0) gm/dl Albumin/Globulin Ratio 0.6 L (0.9-2) TSH 0.169 L (0.300-4.500) uIu/ml Free T4 1.33 (0.8-1.6) ng/dl Lyme Disease IgG Ab Negative (Negative) Lyme Disease IgM Ab Negative (Negative) COVID-19 Eval Order SARS-CoV-2 (PCR) (Negative) 07/17/21 07/17/21 07/17/21 Range/Units 17:45 20:20 20:20 WBC (4.8-10.8) K/uL RBC (4.2-5.4) M/uL Hgb (12.0-16.0) g/dL Hct (37-47) % MCV (80-100) fL MCH (25-34) pg MCHC (32-36) g/dL RDW Std Deviation (36.4-46.3) fL RDW Coeff of Erum (11.5-14.5) % Plt Count (130-400) K/uL MPV (7.4-10.4) fL Immature Gran % (Auto) % Neut % (Auto) % Lymph % (Auto) % Evangeline % (Auto) % Eos % (Auto) % Baso % (Auto) % Neut # (Auto) (1.4-6.5) K/uL Lymph # (Auto) (1.2-3.4) K/uL Evangeline # (Auto) (0.11-0.59) K/uL Eos # (Auto) (0-0.5) K/uL Baso # (Auto) (0-0.2) K/uL Immature Gran # (Auto) (0.00-0.02) K/uL APTT 24.4 (21.0-31.0) Seconds PTT Ratio 0.9 Sodium (136-145) mmol/L Potassium (3.5-5.1) mmol/L Chloride (98-107) mmol/L Carbon Dioxide (21-32) mmol/L Anion Gap (3-11) BUN (7-18) mg/dl Creatinine (0.6-1.2) mg/dl Est Cr Clr Drug Dosing ml/min Est GFR ( Amer) ml/min Est GFR (Non-Af Amer) ml/min BUN/Creatinine Ratio (10-20) Glucose (70-99) mg/dl Calcium (8.5-10.1) mg/dl Magnesium (1.8-2.4) mg/dl Total Bilirubin (0.2-1) mg/dl AST (15-37) U/L ALT (12-78) U/L Alkaline Phosphatase (45-117) U/L Total Protein (6.4-8.2) gm/dl Albumin (3.4-5.0) gm/dl Globulin (2.5-4.0) gm/dl Albumin/Globulin Ratio (0.9-2) TSH (0.300-4.500) uIu/ml Free T4 (0.8-1.6) ng/dl Lyme Disease IgG Ab (Negative) Lyme Disease IgM Ab (Negative) COVID-19 Eval Order Covid19 at [facility] SARS-CoV-2 (PCR) NEGATIVE (Negative) Administered Medications Guaifenesin (Guaifenesin 600 Mg Tabcr) 600 mg PO Q12 STEPHAN Stop: 08/16/21 23:44 Last Admin: 07/17/21 23:58 Dose: 600 mg Documented by: [id number] Insulin Aspart (Insulin Aspart 100 Units/Ml 3 Ml Pen) 0 units SC ACHS STEPHAN Stop: 08/16/21 23:14 Last Admin: 07/17/21 22:56 Dose: Not Given Documented by: [id number] Miscellaneous (Carbohydrates For Hypoglycemia ) 15 - 30 gm PO UD PRN PRN Reason: Hypoglycemia Protocol Stop: 08/16/21 22:45 Last Admin: 07/17/21 22:54 Dose: 15 gm Documented by: [id number] Oxycodone HCl (Oxycodone Hcl Ir 5 Mg Tab (Immediate Release)) 5 - 10 mg PO Q8 PRN PRN Reason: moderate to severe pain Stop: 07/31/21 22:45 Last Admin: 07/17/21 23:14 Dose: 10 mg Documented by: [id number] Discontinued Medications Acetaminophen (Acetaminophen 500 Mg Tab) 1,000 mg PO NOW STA Stop: 07/17/21 16:34 Last Admin: 07/17/21 19:37 Dose: 1,000 mg Documented by: [id number] Acetaminophen (Acetaminophen 500 Mg Tab) Confirm Administered Dose 1,000 mg .ROUTE .STK-MED ONE Stop: 07/17/21 19:34 Last Admin: 07/17/21 19:37 Dose: Not Given Documented by: [id number] Albuterol (Albut/Ipratrop 3mg/0.5mg Neb 3 Ml Vial) 3 ml NEB NOW STA Stop: 07/17/21 23:12 Last Admin: 07/17/21 23:38 Dose: 3 ml Documented by: [id number] Dextrose (Dextrose 50% 50 Ml Syringe) 50 ml IV NOW ONE Stop: 07/17/21 19:42 Last Admin: 07/17/21 20:26 Dose: 50 ml Documented by: [id number] Calcium Gluconate () 1,000 mg in 60 mls @ 240 mls/hr IV NOW STA Stop: 07/17/21 18:02 Last Infusion: 07/17/21 23:58 Dose: 0 mls/hr Documented by: [id number] Admin: 07/17/21 19:37 Dose: 240 mls/hr Documented by: [id number] Insulin Human Regular (Novolin-R Insulin Per Unit Charge) 5 units IV NOW STA Stop: 07/17/21 19:42 Last Admin: 07/17/21 20:26 Dose: 5 units Documented by: [id number] Cosigned by: [id number] Ondansetron HCl (Ondansetron Inj 2 Mg/Ml 2 Ml Vial) 4 mg IV NOW STA Stop: 07/17/21 18:30 Last Admin: 07/17/21 19:35 Dose: 4 mg Documented by: [id number] Imaging Data Radiologist's Impression: Head CT 07/17/21 16:33 CT head/brain wo con CLINICAL HISTORY: 66 years-old Female with fall , SKY/vomiting. Acute head injury with recent fall TECHNIQUE: Multiple axial CT images of the head were obtained without contrast. A dose lowering technique was utilized adhering to the principles of ALARA. CT DOSE: 884.08 mGy.cm COMPARISON: 04/04/[address] FINDINGS: No acute intracranial hemorrhage, midline shift, intracranial mass, hydrocephalus, territorial ischemia or abnormal extra-axial collection. Age-rel ated involutional changes. Cerebral vascular calcifications. The calvarium is intact. The paranasal sinuses, mastoid air cells, and middle ear cavities are clear. IMPRESSION: No acute intracranial abnormality or calvarial fracture. ACT 112: Negative or not required by law. The above report was generated using voice recognition software. It may contain grammatical, syntax or spelling errors. Electronically signed by: Portillo Thornton M.D. 07/17/2021 7:22 PM Chest X-Ray 07/17/21 19:38 XR chest 1V portable HISTORY: 66 years-old Female wekan[place] acute weakness COMPARISON: Chest radiograph 07/11/2021 TECHNIQUE: Portable AP view of the chest FINDINGS: Cardiac silhouette is enlarged. Mild right hemidiaphragmatic elevation. Pul monary vascular congestion with mild interstitial coarsening. No pneumothorax, large pleural effusion or airspace consolidation. Degenerative changes of the shoulders and spine. IMPRESSION: Cardiomegaly with pulmonary vascular congestion. ACT 112: Negative or not required by law. The above report was generated using voice recognition software. It may contain grammatical, syntax or spelling errors. Electronically signed by: Portillo Thornton M.D. 07/17/2021 8:08 PM Discharge Plan Visit Data Chief Complaint: Hypotension Stated Complaint: LOW BLOOD PRESSURE ED Provider: Elias Joe Discharge Problem: Sinus pause, End stage renal disease on dialysis, Hyperkalemia Patient Disposition: Admitted As Inpatient Discharge Instructions Interventions: ED Discharge Assessment Last Done: 07/17/21 22:08
[2021-07-17] MEDS ORDERED: ACETAMINOPHEN 500 MG TAB PO STA (16:33)
[2021-07-17] MEDS ORDERED: CALCIUM GLUCONATE 1,000 MG/60 ML BAG IV STA (17:48)
[2021-07-17 18:07] LABS: Basophils # (auto) 0.02 K/uL (0-0.2); Basophils % (auto) 0.4 %; Eosinophils # (auto) 0.43 K/uL (0-0.5); Eosinophils % (auto) 7.9 %; Hematocrit (blood only) 29.3 % (37-47); Hemoglobin 9.2 g/dL (12.0-16.0); Immature Granulocytes # (auto) 0.01 K/uL (0.00-0.02); Immature Granulocytes % (auto) 0.2 %; Lymphocytes # (auto) 1.54 K/uL (1.2-3.4); Lymphocytes % (auto) 28.4 %; Mean Corpuscular Hemoglobin 31.9 pg (25-34); Mean Corpuscular Hgb Conc 31.4 g/dL (32-36); Mean Corpuscular Volume 101.7 fL (80-100); Mean Platelet Volume 9.7 fL (7.4-10.4); Monocytes # (auto) 0.38 K/uL (0.11-0.59); Neutrophils # (auto) 3.04 K/uL (1.4-6.5); Neutrophils % (auto) 56.1 %; Platelet Count 156 K/uL (130-400); RDW Coefficient of Variation 15.2 % (11.5-14.5); RDW Standard Deviation 55.3 fL (36.4-46.3); Red Blood Count 2.88 M/uL (4.2-5.4); White Blood Count 5.42 K/uL (4.8-10.8)
[2021-07-17] MEDS ORDERED: ONDANSETRON INJ 2 MG/ML 2 ML VIAL IV STA (18:29)
[2021-07-17 18:38] LABS: Albumin Globulin Ratio 0.6 (0.9-2); Albumin Level 2.6 gm/dl (3.4-5.0); Bilirubin,Total 0.3 mg/dl (0.2-1); Calcium 8.6 mg/dl (8.5-10.1); Creatinine Clr Calc Pharmacy 9.8 ml/min; Est GFR (African American) 7.2 ml/min; Est GFR (Non-African American) 6.2 ml/min; Globulin 4.2 gm/dl (2.5-4.0); Magnesium 2.6 mg/dl (1.8-2.4); Potassium 5.2 mmol/L (3.5-5.1); Thyroid Stimulating Hormone 0.169 uIu/ml (0.300-4.500); Total Protein 6.8 gm/dl (6.4-8.2)
[2021-07-17 19:02] LABS: T4 Free Thyroxine 1.33 ng/dl (0.8-1.6)
--- NOTE | 2021-07-17 19:23 | CT Scan Report ---
CT head/brain wo con CLINICAL HISTORY: 66 years-old Female with fall , SKY/vomiting. Acute head injury with recent fall TECHNIQUE: Multiple axial CT images of the head were obtained without contrast. A dose lowering tech nique was utilized adhering to the principles of ALARA. CT DOSE: 884.08 mGy.cm COMPARISON: 04/04/[address] FINDINGS: No acute intracranial hemorrhage, midline shift, intracranial mass, hydrocephalus, territorial ischem ia or abnormal extra-axial collection. Age-related involutional changes. Cerebral vascular calcificat ions. The calvarium is intact. The paranasal sinuses, mastoid air cells, and middle ear cavities are clear . IMPRESSION: No acute intracranial abnormality or calvarial fracture. ACT 112: Negative or not required by law. The above report was generated using voice recognition software. It may contain grammatical, syntax o r spelling errors. Electronically signed by: Portillo Thornton M.D. 07/17/2021 7:22 PM
[2021-07-17] MEDS ORDERED: ACETAMINOPHEN 500 MG TAB ONE (19:33)
[2021-07-17] MEDS ORDERED: DEXTROSE 50% 50 ML SYRINGE IV ONE (19:41)
[2021-07-17] MEDS ORDERED: NovoLIN-R INSULIN PER UNIT CHARGE IV STA (19:41)
--- NOTE | 2021-07-17 20:05 | History & Physical Report ---
Date of Service July 17, 2021 Assessment & Plan (1) Hypotension: (2) Sinus pause: (3) Hyperkalemia: (4) End stage renal disease on dialysis: (5) DM type 2 (diabetes mellitus, type 2): (6) Anxiety and depression: (7) Chronic pain: (8) RLS (restless legs syndrome): Plan: This is a 66yo F with a PMH of ESRD on HD, DM II, anemia of chronic disease, dyslipidemia, chronic pain on narcotics and other medical problems listed below who presents after becoming hypotensive during dialysis earlier today. PCP: Tete Please see Dr. Zavala's addendum for assessment and plan. History of Present Illness Chief Complaint: hypotensive at HD Primary Care Provider: Willie Epstein MD This is a 66yo F with a PMH of ESRD on HD, DM II, anemia of chronic disease, dyslipidemia, chronic pain on narcotics and other medical problems listed below who presents after becoming hypotensive during dialysis earlier today. Underwent repair of RUE ulcerated venous aneurysm at [facility] on 07/13, same day surgery. No issues; discharged home with BP low 100s systolic but generally SBP maintained. Missed dialysis on 07/14 due to feeling poorly and slept most of the day on Friday as well, per . Went to dialysis today and SBP Presented with SBP reportedly in 60-70s. Had 2 hours of treatment before it was stopped and she was brought to ED for further evaluation. Has a dull headache from contusion on scalp from fall last week. No visual changes, lightheadedness, chest pain, SOB, nausea, vomiting, abdominal pain, dysuria or diarrhea. Makes urine. Last bowel movement 2 days ago. Takes 15mg oxycodone TID PRN for chronic pain in back and hips. Follows with Dr. Perez for nephrology. Repeat BP 145/62 in ED. Sinus pause reported on telemetry while in ED. HR 55 during time of exam. Potassium 5.2, creatinine 6.39, TSH 0.169, lyme serology negative, covid PCR pending. CT head with no acute intracranial abnormality or calvarial fracture. CXR shows cardiomegaly with pulmonary vascular congestion. Allergies Allergy/AdvReac Type Severity Reaction Status Date / Time nitrofurantoin Allergy Intermediate Hives Verified 07/17/21 16:50 Sulfa (Sulfonamide Allergy Intermediate hives Verified 07/17/21 16:50 Antibiotics) methylprednisolone AdvReac Intermediate SWEATING , Verified 07/17/21 16:50 [From Medrol] HEART RACING Home Medications Medication Instructions Recorded Confirmed Type aspirin 81 mg chewable tablet 81 mg PO QAM 12/31/18 07/17/21 History cholecalciferol (vitamin D3) 25 1,000 unit PO QAM 12/31/18 07/17/21 History mcg (1,000 unit) tablet (Vitamin D3) gabapentin 100 mg capsule 100 mg PO UD 12/31/18 07/17/21 History insulin glargine 100 unit/mL (3 16 unit SUBCUT BID 12/31/18 07/17/21 History mL) subcutaneous pen (Basaglar KwikPen U-100 Insulin) simvastatin 20 mg tablet 20 mg PO HS 12/31/18 07/17/21 History sucroferric oxyhydroxide 500 mg 1,000 mg PO TIDM 12/31/18 07/17/21 History chewable tablet (Velphoro) fluticasone furoate 100 1 inh INHALATION QAM 09/09/19 07/17/21 History mcg-vilanterol 25 mcg/dose inhalation powder (Breo Ellipta) polyethylene glycol 3350 17 gram 17 g PO DAILY PRN 09/09/19 07/17/21 History oral powder packet (Miralax) lisinopril 20 mg tablet 20 mg PO QAM 02/23/21 07/17/21 History albuterol sulfate 90 mcg/actuation 2 puff INHALATION Q4 PRN 04/04/21 07/17/21 History aerosol inhaler cinacalcet 60 mg tablet 60 mg PO QAM 04/04/21 07/17/21 History citalopram 20 mg tablet 20 mg PO QAM 04/04/21 07/17/21 History oxycodone 15 mg tablet 15 mg PO Q8 PRN 04/04/21 07/17/21 History ropinirole 0.5 mg tablet 1 mg PO HS 04/04/21 07/17/21 History vitamin B complex-vitamin C-folic 1 tab PO QAM 04/04/21 07/17/21 History acid 0.8 mg tablet (Nephro-Federico) fluticasone propionate 50 1 spray INTRANASAL DAILY PRN 06/27/21 07/17/21 History mcg/actuation nasal spray,suspension (Flonase Allergy Relief) benzonatate 100 mg capsule 100 mg PO TID PRN #30 cap 06/29/21 07/17/21 Rx (Tessalon Perles) cetirizine 10 mg tablet (Zyrtec) 5 mg PO DAILY 07/17/21 07/17/21 History cyanocobalamin (vitamin B-12) 100 100 mcg PO DAILY 07/17/21 07/17/21 History mcg tablet Past Med/Surg History Medical History Anxiety and depression Chronic pain DM type 2 (diabetes mellitus, type 2) IDDM Glucose stable End stage renal disease on dialysis (09/26/14) 2/2 DM - Diaylsis Tuelio, Thbhaskar, Sat (started 8 years ago) - [email or web address] - follows with Dr. Kumar History of DVT (deep vein thrombosis) > 10 years ago - post op -- RLE -- treated with AC therapy x 3-6 months- d/c'ed no issues since History of pulmonary embolus (PE) > 10 years ago - post op History of renal calculi HLD (hyperlipidemia) HTN (hypertension) Limb alert care status RUE AVF Migraines Obesity Osteoarthritis Osteoporosis Psoriasis RLS (restless legs syndrome) Surgical History H/O inguinal hernia repair H/O partial resection of colon (12/12/12) For diverticulitis History of x 2 History of colonoscopy History of tooth extraction S/P arteriovenous (AV) fistula creation x 2 BL (non functioning on left)--left still in place not working S/P arteriovenous (AV) fistula repair (~03/02/21) right S/P cholecystectomy S/P hip replacement BL Family History Mother Diabetes Sister Diabetes Other No family history of adverse response to anesthesia Social History Smoking Status: Former smoker Second Hand Exposure: No; Hx Alcohol Use: No Hx Substance Use: No Preferred Language: Vincentian Communication Ability: Effective Data Administrator Required: No Beliefs That Will Affect Care: None marital status: Current Living Situation: Spouse Current Living Situation Comment: Lives with , daughter and grandson Feels Safe at Home: Yes Safety Concerns: Feels Safe At This Time Assistive Devices: Cane, Denture - Upper, Denture - Lower and Walker Review of Systems Review of Systems: At least ten systems reviewed and negative except as noted in the HPI. Physical Exam Physical Exam: General Appearance: vitals as above, NAD, sitting up in bed, pleasant, conversing easily Head: normocephalic, atraumatic, L scalp contusion Eyes: normal inspection, PERRL, conjunctivae normal, anicteric sclerae ENT: external ear and nose normal, oropharynx normal Neck: normal visual inspection, trachea midline, no thyromegaly Respiratory: normal respiratory effort, coarse breath sounds, no wheeze, rales, rhonchi. No accessory muscle use Cardiovascular: bradycardic rate, rhythm, no murmur, normal peripheral pulses, no BLE edema. Vessels: no JVD Chest: normal inspection of chest Abdomen/GI: normal bowel sounds, soft, nontender, no hepatosplenomegaly Extremities/Musculoskeletal: RUE AV fistula. Area of bruising superior to fistula with xavier in place, no drainage or warmth to touch. No cyanosis or clubbing, extremities motor strength 5/5 Neurologic: PERRL, EOMI, accommodation nl, no face palsy, no dysarthria, CN's II-XI intact bilaterally and moves all extremities Psychiatric: A+Ox3, euthymic affect Skin: no rashes, normal color, warm/dry Results & Data Results & Data ([facility]) Vital Signs (Past 12 Hours) Vital Signs Temp Pulse Resp BP Pulse Ox 07/17/21 18:23 55 L 19 96 07/17/21 18:20 96 07/17/21 12:49 36.8 C 62 16 103/49 L 98 Laboratory Results Short CBC 07/17/21 07/17/21 Range/Units 17:45 17:45 WBC 5.42 (4.8-10.8) K/uL Hgb 9.2 L (12.0-16.0) g/dL Hct 29.3 L (37-47) % Plt Count 156 (130-400) K/uL TSH 0.169 L (0.300-4.500) uIu/ml BMP 07/17/21 17:45 Sodium 139 Potassium 5.2 H Chloride 103 Carbon Dioxide 32 BUN 58 H Creatinine 6.39 H* Glucose 77 Calcium 8.6 Liver Function 07/17/21 Range/Units 17:45 Total Bilirubin 0.3 (0.2-1) mg/dl AST 17 (15-37) U/L ALT 20 (12-78) U/L Alkaline Phosphatase 87 (45-117) U/L Albumin 2.6 L (3.4-5.0) gm/dl Diagnostic Findings Head CT 07/17/21 16:33 CT head/brain wo con CLINICAL HISTORY: 66 years-old Female with fall , SKY/vomiting. Acute head injury with recent fall TECHNIQUE: Multiple axial CT images of the head were obtained without contrast. A dose lowering technique was utilized adhering to the principles of ALARA. CT DOSE: 884.08 mGy.cm COMPARISON: 04/04/[address] FINDINGS: No acute intracranial hemorrhage, midline shift, intracranial mass, hydrocephalus, territorial ischemia or abnormal extra-axial collection. Age- related involutional changes. Cerebral vascular calcifications. The calvarium is intact. The paranasal sinuses, mastoid air cells, and middle ear cavities are clear. IMPRESSION: No acute intracranial abnormality or calvarial fracture. ACT 112: Negative or not required by law. The above report was generated using voice recognition software. It may contain grammatical, syntax or spelling errors. Electronically signed by: Portillo Thornton M.D. 07/17/2021 7:22 PM Supervising Physician Co-Signing Physician Notes IM ATTENDING : Patient seen and examined. History obtained from patient, family, and records. Preceding documentation by LORETTA Mauro reviewed. FINAL ASSESSMENT AND PLAN as follows : Hypotension rule out arrhythmia (sinus pause, episodic bradycardia noted at the ER) Rule out obstructive cardiac pathology ESRD on HD DM 2, insulin requiring, well controlled as of recent outpatient hemoglobin A1c of 5 last June 2021 history PE/DVT status post anticoagulation Acute on chronic anemia, hemoglobin drop from baseline ? Scalp/chest wall contusion from recent fall, RUE fistula bruising Episodic lethargy at home Likely related to home neuropsychotropic/narcotic meds Rule out sleep disordered breathing past tobacco abuse OBS PCU TTE Re: Low BP Nephrology consult Re: Dialysis management Hold parameters for sedation confusion for home narcotics/neuropsychotropic medications Outpatient sleep study Basal insulin, ISS BG goal 110-140, carb count coverage DVT prophylaxis. SCDs multiple body contusions/bruising Full code Patient requesting updates from providers. Genaro Pacheco Sherita, contact #[phone]. Text document was generated using [employer] voice recognition software. It may contain grammatical or spelling errors. Kindly contact undersigned for clarification of any documentation item in question.
--- NOTE | 2021-07-17 20:10 | XRay Report ---
XR chest 1V portable HISTORY: 66 years-old Female wekaness acute weakness COMPARISON: Chest radiograph 07/11/2021 TECHNIQUE: Portable AP view of the chest FINDINGS: Cardiac silhouette is enlarged. Mild right hemidiaphragmatic elevation. Pulmonary vascular congestion with mild interstitial coarsening. No pneumothorax, large pleural effusion or airspace consolidation . Degenerative changes of the shoulders and spine. IMPRESSION: Cardiomegaly with pulmonary vascular congestion. ACT 112: Negative or not required by law. The above report was generated using voice recognition software. It may contain grammatical, syntax o r spelling errors. Electronically signed by: Portillo Thornton M.D. 07/17/2021 8:08 PM
[2021-07-17 20:23] LABS: Lyme Ab IgG w/WB Rflx Negative (Negative); Lyme Ab IgM w/WB Rflx Negative (Negative)
[2021-07-17 21:32] LABS: Partial Thromboplastin Ratio 0.9; Partial Thromboplastin Time 24.4 Seconds (21.0-31.0)
[2021-07-17 22:01] LABS: Appearance Urine Clear (Clear); Bacteria Urine Automated 1+ (Negative); Bilirubin Urine Negative (Negative); Blood Urine Trace (Negative); Color Urine Yellow; Epithelial Cell Urine Auto >30 /lpf (0-5); Glucose Urine UA Negative (Negative); Ketones Urine Negative (Negative); Leukocyte Esterase Urine 1+ (Negative); Nitrite Urine Negative (Negative); RBC Urine Automated 0-4 /hpf (0-4); Urobilinogen Urine Negative (Negative)
[2021-07-17 22:03] LABS: Protein Urine 2+ (Negative)
[2021-07-17 22:22] LABS: Renal Epithelial Cells Urine 0-5 /lpf (0-5)
[2021-07-17] MEDS ORDERED: GLUCAGON FOR INJ 1 MG VIAL SQ PRN (22:46)
[2021-07-17] MEDS ORDERED: BENZONATATE 100 MG CAPSULE PO PRN (22:46)
[2021-07-17] MEDS ORDERED: CARBOHYDRATES FOR HYPOGLYCEMIA PO PRN (22:46)
[2021-07-17] MEDS ORDERED: NITROGLYCERIN SL 0.4 MG/TAB TAB SL PRN (22:46)
[2021-07-17] MEDS ORDERED: ACETAMINOPHEN 325 MG TAB PO PRN (22:46)
[2021-07-17] MEDS ORDERED: DEXTROSE 50% 50 ML SYRINGE IV PRN (22:46)
[2021-07-17] MEDS ORDERED: PROMETHAZINE HCL 12.5 MG in SODIUM CHLORIDE 0.9% 50 ML IV PRN (22:46)
[2021-07-17] MEDS ORDERED: FLUTICASONE PROPIONATE NA SPR 16 GM BTL PRN (22:46)
[2021-07-17] MEDS ORDERED: POLYETHYLENE (MIRALAX) 17 GM PACK PO PRN (22:46)
[2021-07-17] MEDS ORDERED: GLUCOSE 10 TABS/TUBE PO PRN (22:46)
[2021-07-17] MEDS ORDERED: GLUCOSE 40% GEL 15 GM TUBE PO PRN (22:46)
[2021-07-17] MEDS: INSULIN ASPART 100 UNITS/ML 3 ML PEN SC SCH (22:56)
[2021-07-17] MEDS ORDERED: ALBUT/IPRATROP 3MG/0.5MG NEB 3 ML VIAL NEB STA (23:11)
[2021-07-17] MEDS ORDERED: ALBUT/IPRATROP 3MG/0.5MG NEB 3 ML VIAL NEB PRN (23:11)
[2021-07-17] MEDS: oxyCODONE HCL IR 5 MG TAB (IMMEDIATE RELEASE) PO PRN (23:14)
[2021-07-17] MEDS: guaiFENesin 600 MG TABCR PO SCH (23:58)
[2021-07-18] MEDS: VELPHORO: ORDER AWAITING ACTION SCH ×2 (00:32→07:18)
[2021-07-18] MEDS: MELATONIN 3 MG TAB PO PRN ×2 (01:28→20:36)
[2021-07-18 07:05] LABS: Basophils # (auto) 0.03 K/uL (0-0.2); Basophils % (auto) 0.6 %; Eosinophils # (auto) 0.39 K/uL (0-0.5); Eosinophils % (auto) 8.2 %; Hematocrit (blood only) 31.8 % (37-47); Hemoglobin 9.7 g/dL (12.0-16.0); Immature Granulocytes # (auto) 0.01 K/uL (0.00-0.02); Immature Granulocytes % (auto) 0.2 %; Lymphocytes # (auto) 0.79 K/uL (1.2-3.4); Lymphocytes % (auto) 16.6 %; Mean Corpuscular Hemoglobin 32.2 pg (25-34); Mean Corpuscular Hgb Conc 30.5 g/dL (32-36); Mean Corpuscular Volume 105.6 fL (80-100); Mean Platelet Volume 9.8 fL (7.4-10.4); Monocytes # (auto) 0.42 K/uL (0.11-0.59); Monocytes % (auto) 8.8 %; Neutrophils # (auto) 3.13 K/uL (1.4-6.5); Neutrophils % (auto) 65.6 %; Platelet Count 167 K/uL (130-400); RDW Coefficient of Variation 15.1 % (11.5-14.5); RDW Standard Deviation 58.1 fL (36.4-46.3); Red Blood Count 3.01 M/uL (4.2-5.4); White Blood Count 4.77 K/uL (4.8-10.8)
[2021-07-18] MEDS: INSULIN GLARGINE SOLOSTAR 100 UNITS/ML 3 ML PEN SC SCH (07:32)
[2021-07-18] MEDS: FLUTICASONE/VILANTEROL 100/25MCG 14 PUFFS/INHALER INH SCH (07:32)
[2021-07-18] MEDS: CETIRIZINE HCL 10 MG TABLET PO SCH (07:33)
[2021-07-18] MEDS: CINACALCET HCL 30 MG TAB PO SCH (07:33)
[2021-07-18] MEDS: ASPIRIN 81 MG ECTAB PO SCH (07:34)
[2021-07-18] MEDS: GABAPENTIN 100 MG CAP PO SCH (07:34)
[2021-07-18] MEDS: guaiFENesin 600 MG TABCR PO SCH ×2 (07:34→20:36)
[2021-07-18] MEDS: CITALOPRAM 20 MG TAB PO SCH (07:34)
[2021-07-18] MEDS: NEPHROCAPS PO SCH (07:34)
[2021-07-18] MEDS: CYANOCOBALAMIN (VITAMIN B-12) 100 MCG TABLET PO SCH (07:34)
[2021-07-18] MEDS: INSULIN ASPART 100 UNITS/ML 3 ML PEN SC SCH ×4 (07:35→20:36)
[2021-07-18 08:01] LABS: BUN Creatinine Ratio 8.4 (10-20); Calcium 8.6 mg/dl (8.5-10.1); Creatinine Clr Calc Pharmacy 8.9 ml/min; Est GFR (African American) 6.4 ml/min; Est GFR (Non-African American) 5.5 ml/min; Potassium 5.5 mmol/L (3.5-5.1)
[2021-07-18] MEDS ORDERED: SODIUM CHLORIDE 0.9% 1000ML 1,000 ML IV PRN (09:16)
[2021-07-18] MEDS ORDERED: EPOETIN ALFA 10,000 UNITS/ML VIAL IV SCH (09:30)
[2021-07-18] MEDS ORDERED: HEPARIN SOD (PORCINE) 1000 UNIT/ML IV SCH (09:30)
--- NOTE | 2021-07-18 11:26 | Nephrology Consultation ---
Date of Consultation July 18, 2021 Assessment & Plan (1) End stage renal disease on dialysis: ESRD on TRSa dialysis > missed HD on Sat and had 2 hrs yesterday and w/ vascular congestion on XR > for 4 hr tx today > not clear whether she will tolerate much UF today; may need another tx tomorrow (2) Hypotension: lisinopril held; not on other agents as OP; ? if from pain med but no new meds/doses; ongoing and limiting fluid removal today at HD -f/u pending TTE -r/o bacteremia given recent ulcerations and procedure (3) Sinus pause: sinus pause in ER > do HD on monitor (4) History of fall: -w/ ongoing R posterior neck pain and focal tenderness > hard to do full assessment of neck on tx >check neck XR and/or CT -head CT negative; hgb stable > using some heparin on tx (normally w/ high heparin requirement on HD) History of Present Illness Reason for Consultation: ESRD on dialysis Requesting Physician: Dr Zavala Attending Physician: Dena Renae MD History of Present Illness 66 y/o F w/ ESRD whom I sent to ER yesterday for eval d/t ongoing weakness and worsening hypotension. Her sbp had been 60-70s on dialysis for approx 2 hrs despite flushes; no sx though after we made decision to refer to hospital she did become transiently confused. PMH also includes DM, ambulatory dysfunction/walker dependent, class 2 obesity, chronci pain, HTN. She fell coming into dialysis unit 07/12 and landed on her bottom, struck L posterior back of her head on a wall. no confusion or n at that time; no SKY, PERRL + > we ran her routine tx after RN and MD assessment w/o heparin and advised ER eval if new /worrisome sx. She underwent repair of ulcerated venous aneurysm on 07/13 here. No abtx or new meds w/ that visit. On 07/14 she felt too poorly, too weak to come to dialysis and so missed that tx. Allergies Allergy/AdvReac Type Severity Reaction Status Date / Time nitrofurantoin Allergy Intermediate Hives Verified 07/17/21 16:50 Sulfa (Sulfonamide Allergy Intermediate hives Verified 07/17/21 16:50 Antibiotics) methylprednisolone AdvReac Intermediate SWEATING , Verified 07/17/21 16:50 [From Medrol] HEART RACING Home Medications Medication Instructions Recorded Confirmed Type aspirin 81 mg chewable tablet 81 mg PO QAM 12/31/18 07/17/21 History cholecalciferol (vitamin D3) 25 1,000 unit PO QAM 12/31/18 07/17/21 History mcg (1,000 unit) tablet (Vitamin D3) gabapentin 100 mg capsule 100 mg PO UD 12/31/18 07/17/21 History insulin glargine 100 unit/mL (3 16 unit SUBCUT BID 12/31/18 07/17/21 History mL) subcutaneous pen (Basaglar KwikPen U-100 Insulin) simvastatin 20 mg tablet 20 mg PO HS 12/31/18 07/17/21 History sucroferric oxyhydroxide 500 mg 1,000 mg PO TIDM 12/31/18 07/17/21 History chewable tablet (Velphoro) fluticasone furoate 100 1 inh INHALATION QAM 09/09/19 07/17/21 History mcg-vilanterol 25 mcg/dose inhalation powder (Breo Ellipta) polyethylene glycol 3350 17 gram 17 g PO DAILY PRN 09/09/19 07/17/21 History oral powder packet (Miralax) lisinopril 20 mg tablet 20 mg PO QAM 02/23/21 07/17/21 History albuterol sulfate 90 mcg/actuation 2 puff INHALATION Q4 PRN 04/04/21 07/17/21 History aerosol inhaler cinacalcet 60 mg tablet 60 mg PO QAM 04/04/21 07/17/21 History citalopram 20 mg tablet 20 mg PO QAM 04/04/21 07/17/21 History oxycodone 15 mg tablet 15 mg PO Q8 PRN 04/04/21 07/17/21 History ropinirole 0.5 mg tablet 1 mg PO HS 04/04/21 07/17/21 History vitamin B complex-vitamin C-folic 1 tab PO QAM 04/04/21 07/17/21 History acid 0.8 mg tablet (Nephro-Federico) fluticasone propionate 50 1 spray INTRANASAL DAILY PRN 06/27/21 07/17/21 History mcg/actuation nasal spray,suspension (Flonase Allergy Relief) benzonatate 100 mg capsule 100 mg PO TID PRN #30 cap 06/29/21 07/17/21 Rx (Tessalon Perles) cetirizine 10 mg tablet (Zyrtec) 5 mg PO DAILY 07/17/21 07/17/21 History cyanocobalamin (vitamin B-12) 100 100 mcg PO DAILY 07/17/21 07/17/21 History mcg tablet Patient History Medical History (Updated 07/18/21 @ 12:53 by Danette Perez MD, PhD) Ambulatory dysfunction walker-dependent Anxiety and depression Chronic pain DM type 2 (diabetes mellitus, type 2) IDDM Glucose stable End stage renal disease on dialysis (09/26/14) 2/2 DM - Diaylsis Chica, [place], Sat (started 8 years ago) - [facility] - follows with Dr. Perez History of DVT (deep vein thrombosis) > 10 years ago - post op -- RLE -- treated with AC therapy x 3-6 months- d/c'ed no issues since History of pulmonary embolus (PE) > 10 years ago - post op History of renal calculi HLD (hyperlipidemia) HTN (hypertension) Limb alert care status RUE AVF Migraines Obesity Osteoarthritis Osteoporosis Psoriasis RLS (restless legs syndrome) Surgical History H/O inguinal hernia repair H/O partial resection of colon (12/12/12) For diverticulitis History of x 2 History of colonoscopy History of tooth extraction S/P arteriovenous (AV) fistula creation x 2 BL (non functioning on left)--left still in place not working S/P arteriovenous (AV) fistula repair (~03/02/21) right S/P cholecystectomy S/P hip replacement BL Family History Mother Diabetes Sister Diabetes Other No family history of adverse response to anesthesia Social History Smoking Status: Former smoker Second Hand Exposure: No; Hx Alcohol Use: No Hx Substance Use: No Preferred Language: Grenadian Communication Ability: Effective Micro Computer Specialist Required: No Beliefs That Will Affect Care: None marital status: Current Living Situation: Spouse Current Living Situation Comment: Lives with , daughter and grandson How many Children do You have: 3 Feels Safe at Home: Yes Safety Concerns: Feels Safe At This Time Assistive Devices: Walker Review of Systems Review of Systems: All systems reviewed & are unremarkable except as noted in HPI & below Physical Exam Constitutional: well developed, well nourished, + obese and + altered mental status (slightly confused); no acute distress Eyes: EOM intact bilaterally ENMT: Ears: no external ear abnormality Nose: no external nose abnormality Mouth: + dry oral mucous membranes Neck: no nuchal rigidity focal TTP R posterior neck Respiratory: normal respiratory effort Auscultation: + diminished lung sounds Cardiovascular: Rate/Rhythm: regular rate and regular rhythm Heart Sounds: normal S1 and normal S2 Extremities: + AV fistula (+T/B); no edema Gastrointestinal (Abdomen): Inspection/Auscultation: normal bowel sounds Percussion/Palpation: abdomen soft; abdomen nontender Musculoskeletal: Extremities: strength 5/5 throughout Skin: no rashes, warm and dry Neurologic: valdez, fluent speech, no tremor Psychiatric: Orientation: oriented to person and oriented to place; + not oriented to time Results & Data ([facility]) Vital Signs (Past 12 Hours) Vital Signs Temp Pulse Pulse Resp BP Pulse Ox 07/18/21 08:15 36.8 C 63 14 103/57 L 95 07/18/21 08:00 66 07/18/21 03:37 36.5 C 74 18 111/53 L 96 07/17/21 23:38 78 16 91 07/17/21 23:34 36.3 C L 73 16 119/62 98 Laboratory Results 07/18/21 06:54 07/18/21 06:54 UA >> 2+ protein, 1+ LE, 10-30 WBC; >30 Epis, 1+ bacter TSH low Diagnostic Findings CXR plm vasc congestion head CT unremarkable for acute process
[2021-07-18] MEDS: HEPARIN SOD (PORCINE) 1000 UNIT/ML IV SCH ×2 (12:31→15:55)
--- NOTE | 2021-07-18 12:59 | Dialysis Progress Note ---
Date of Service July 18, 2021 Assessment & Plan (1) End stage renal disease on dialysis: Plan: ESRD on TRSa dialysis > missed HD on Sat and had 2 hrs yesterday and w/ vascular congestion on XR > for 4 hr tx today > not clear whether she will tolerate much UF today; may need another tx tomorrow (2) Hypotension: Plan: lisinopril held; not on other agents as OP; ? if from pain med but no new me ds/doses; ongoing and limiting fluid removal today at HD -f/u pending TTE -r/o bacteremia given recent ulcerations and procedure (3) Sinus pause: Plan: sinus pause in ER > do HD on monitor (4) History of fall: Plan: -w/ ongoing R posterior neck pain and focal tenderness > hard to do full assessment of neck on tx >check neck XR and/or CT -head CT negative; hgb stable > using some heparin on tx (normally w/ high heparin requirement on HD) Admission and Anticipated Discharge Date Admission Date: July 17, 2021 Subjective seen on HD; c/o R post neck pain and cough; no sob, no mention of SKY to me. some confusion about times/dates in giving her hx Review of Systems Review of Systems: All systems reviewed & are unremarkable except as noted in Subjective Physical Exam Constitutional: well developed, well nourished, + obese and + altered mental status (slightly confused); no acute distress Eyes: EOM intact bilaterally ENMT: Ears: no external ear abnormality Nose: no external nose abnormality Mouth: + dry oral mucous membranes Neck: no nuchal rigidity Respiratory: normal respiratory effort Auscultation: + diminished lung sounds Cardiovascular: Rate/Rhythm: regular rate and regular rhythm Heart Sounds: normal S1 and normal S2 Extremities: + AV fistula (+T/B); no edema Gastrointestinal (Abdomen): Inspection/Auscultation: normal bowel sounds Percussion/Palpation: abdomen soft; abdomen nontender Musculoskeletal: Extremities: strength 5/5 throughout Skin: no rashes, warm and dry Psychiatric: Orientation: oriented to person and oriented to place; + not oriented to time Results & Data ([facility]) Vital Signs (Past 12 Hours) Vital Signs Temp Pulse Pulse Pulse Resp BP BP 07/18/21 11:45 67 88/54 L 07/18/21 11:30 66 89/53 L 07/18/21 11:15 61 96/47 L 07/18/21 11:00 36.5 C 71 07/18/21 08:15 36.8 C 63 14 103/57 L 07/18/21 08:00 66 07/18/21 03:37 36.5 C 74 18 111/53 L Pulse Ox 07/18/21 11:45 07/18/21 11:30 07/18/21 11:15 07/18/21 11:00 07/18/21 08:15 95 07/18/21 08:00 07/18/21 03:37 96 Laboratory Results reviewed
[2021-07-18] MEDS ORDERED: SEVELAMER HCL 800 MG TABLET PO PRN (14:20)
--- NOTE | 2021-07-18 16:21 | Hospitalist Progress Note ---
Date of Service July 18, 2021 Assessment & Plan (1) Hypotension: Plan: -admitted to tele -patient presented from dialysis for evaluation of persistent hypotension -lisinopril has been held - BP stable -given recent RUE vascular procedure, check blood cultures to r/o infection. No other infectious sources/symptoms noted at this time -Patient is on chronic narcotics and gabapentin however no recent new medications or dosage changes, if hypotension persists, may need to make adjustments in oxycodone and gabapentin -Echo 07/18/2021 -EF > 70%, mild tricuspid regurgitation, grade 2 diastolic dysfunction (2) Sinus pause: Plan: -No further arrhythmia on telemetry, has been maintained in NSR (3) History of fall: Plan: -Head CT unremarkable -Patient reporting neck pain, will check C-spine CT -PT/OT (4) End stage renal disease on dialysis: Plan: -S/p HD treatment today -Nephrology following (5) DM type 2 (diabetes mellitus, type 2): Plan: -Hgb A1c 5.0 06/2021 -Lantus and NovoLog (6) Chronic pain: Plan: -Continue home medications for now, however may need to make adjustments if hypotension persists (7) DVT prophylaxis: Plan: -SQ heparin Admission and Anticipated Discharge Date Admission Date: July 17, 2021 Supervising Physician Co-Signing Physician Notes Patient seen and examined by [facility] coordinated with Coco BURGOS. History notable for 66-year-old woman with history of ESRD on HD, DM type II, anemia of chronic disease, chronic pain on opioid who presented after beco physical exam notable for obesity malik hypotensive with dialysis yesterday. Patient also reports some headache. Stated that she felt last week and head the back of her head reported some neck pain and some mild chronic cough. Physical exam notable for obesity Labs today notable for potassium of 5.5, creatinine 7.[address] of the neck considering recent fall PT/OT evaluation CT head did not show any acute abnormalities Continue to hold lisinopril. May consider discontinuing this on discharge Blood pressure currently normal. To get hemodialysis today Nephrology evaluation appreciated Agree with other plans as detailed by Coco BURGOS Subjective Patient seen and examined after dialysis. Reports feeling tired. Has some shortness of breath which she feels is baseline. No chest pain. Reports some intermittent lightheadedness with dialysis. No syncopal event. Denies abdominal pain and nausea. No fevers or chills. Physical Exam Constitutional: WD/WN, vitals as above + ill appearing (Chronically) and + obese Respiratory: normal respiratory effort; no respiratory distress Auscultation: + diminished lung sounds Cardiovascular: Rate/Rhythm: regular rate and regular rhythm Vessels: normal peripheral pulses Extremities: no edema Gastrointestinal (Abdomen): normal bowel sounds, soft, nontender, no hepatosplenomegaly Skin: no rashes, warm and dry Chronic venous changes BLE Neurologic: no focal motor deficits Psychiatric: A+Ox3, euthymic affect Results & Data Results & Data ([facility]) Vital Signs (Past 12 Hours) Vital Signs Temp Pulse Pulse Pulse Pulse Resp BP 07/18/21 15:46 36.6 C 100 H 21 07/18/21 15:35 36.6 C 106 H 07/18/21 15:00 85 124/67 07/18/21 14:45 83 122/66 07/18/21 14:30 62 112/64 07/18/21 14:15 76 115/54 L 07/18/21 14:03 76 115/52 L 07/18/21 13:15 61 108/68 07/18/21 13:00 74 106/58 L 07/18/21 12:45 71 103/59 L 07/18/21 12:30 69 84/71 L 07/18/21 12:15 67 101/52 L 07/18/21 12:00 71 95/53 L 07/18/21 11:45 67 88/54 L 07/18/21 11:30 66 89/53 L 07/18/21 11:15 61 96/47 L 07/18/21 11:00 36.5 C 71 07/18/21 08:15 36.8 C 63 14 07/18/21 08:00 66 BP Pulse Ox 07/18/21 15:46 126/62 96 07/18/21 15:35 152/76 H 07/18/21 15:00 07/18/21 14:45 07/18/21 14:30 07/18/21 14:15 07/18/21 14:03 07/18/21 13:15 07/18/21 13:00 07/18/21 12:45 07/18/21 12:30 07/18/21 12:15 07/18/21 12:00 07/18/21 11:45 07/18/21 11:30 07/18/21 11:15 07/18/21 11:00 07/18/21 08:15 103/57 L 95 07/18/21 08:00 Laboratory Results Short CBC 07/17/21 07/18/21 Range/Units 17:45 06:54 WBC 5.42 4.77 L (4.8-10.8) K/uL Hgb 9.2 L 9.7 L (12.0-16.0) g/dL Hct 29.3 L 31.8 L (37-47) % Plt Count 156 167 (130-400) K/uL BMP 07/17/21 07/17/21 07/18/21 17:45 23:13 06:54 Sodium 139 136 Potassium 5.2 H 4.6 5.5 H D Chloride 103 102 Carbon Dioxide 32 30 BUN 58 H 59 H Creatinine 6.39 H* 7.01 H* D Glucose 77 111 H Calcium 8.6 8.6 Liver Function 07/17/21 Range/Units 17:45 Total Bilirubin 0.3 (0.2-1) mg/dl AST 17 (15-37) U/L ALT 20 (12-78) U/L Alkaline Phosphatase 87 (45-117) U/L Albumin 2.6 L (3.4-5.0) gm/dl Urine 07/17/21 Range/Units 21:41 Urine Color Yellow Urine Appearance Clear (Clear) Urine pH 8.0 H (4.5-7.5) Ur Specific [place] 1.010 (1.000-1.030) Urine Protein 2+ H (Negative) Urine Glucose (UA) Negative (Negative)
[2021-07-18] MEDS: SEVELAMER HCL 800 MG TABLET PO SCH (16:55)
[2021-07-18] MEDS ORDERED: ZOLPIDEM TARTRATE 5 MG TAB PO PRN (20:01)
[2021-07-18] MEDS: oxyCODONE HCL IR 5 MG TAB (IMMEDIATE RELEASE) PO PRN (20:35)
[2021-07-18] MEDS ORDERED: rOPINIRole HCL 1 MG TABLET PO SCH (21:00)
[2021-07-18] MEDS ORDERED: SIMVASTATIN 20 MG TAB PO SCH (21:00)
--- NOTE | 2021-07-19 07:20 | CT Scan Report ---
CT cervical spine wo con CT DOSE: 331.39 mGy.cm CLINICAL HISTORY: 66 years-old Female with fall, neck pain. Acute neck pain status post fall COMPARISON: Head CT 07/17/2021, CT cervical spine 04/04/2021. TECHNIQUE: Multiple axial CT images of the cervical spine were obtained without contrast. A dose low ering technique was utilized adhering to the principles of ALARA. FINDINGS: Demineralized appearance of the bones. Mild multilevel intervertebral disc space narrowing with associated mild uncovertebral spurring and mild to moderate facet arthrosis. There is severe deg eneration at C1-C2. Mild chronic wedge deformities at C7, T1 and T2 appear unchanged. Dextroscoliosis of the cervicothoracic junction. Left-sided cervical rib. The cervical soft tissues appear unremarkable. Heterogeneous thyroid. The visualized lung apices appe ar clear. IMPRESSION: 1. No acute fracture or subluxation. 2. Left-sided cervical rib. ACT 112: Negative or not required by law. The above report was generated using voice recognition software. It may contain grammatical, syntax o r spelling errors. Electronically signed by: Portillo Thornton M.D. 07/19/2021 7:19 AM
[2021-07-19] MEDS: CETIRIZINE HCL 10 MG TABLET PO SCH (07:34)
[2021-07-19] MEDS: NEPHROCAPS PO SCH (07:35)
[2021-07-19] MEDS: GABAPENTIN 100 MG CAP PO SCH (07:35)
[2021-07-19] MEDS: ASPIRIN 81 MG ECTAB PO SCH (07:35)
[2021-07-19] MEDS: SEVELAMER HCL 800 MG TABLET PO SCH ×2 (07:35→11:40)
[2021-07-19] MEDS: guaiFENesin 600 MG TABCR PO SCH (07:35)
[2021-07-19] MEDS: CYANOCOBALAMIN (VITAMIN B-12) 100 MCG TABLET PO SCH (07:35)
[2021-07-19] MEDS: CINACALCET HCL 30 MG TAB PO SCH (07:35)
[2021-07-19] MEDS: CITALOPRAM 20 MG TAB PO SCH (07:36)
[2021-07-19] MEDS: FLUTICASONE/VILANTEROL 100/25MCG 14 PUFFS/INHALER INH SCH (07:36)
[2021-07-19 08:04] LABS: Hematocrit (blood only) 28.1 % (37-47); Hemoglobin 8.8 g/dL (12.0-16.0); Mean Corpuscular Hemoglobin 31.9 pg (25-34); Mean Corpuscular Hgb Conc 31.3 g/dL (32-36); Mean Corpuscular Volume 101.8 fL (80-100); Mean Platelet Volume 9.7 fL (7.4-10.4); Platelet Count 150 K/uL (130-400); RDW Standard Deviation 55.1 fL (36.4-46.3); Red Blood Count 2.76 M/uL (4.2-5.4); White Blood Count 3.91 K/uL (4.8-10.8)
[2021-07-19] MEDS: INSULIN ASPART 100 UNITS/ML 3 ML PEN SC SCH ×2 (08:09→11:33)
[2021-07-19] MEDS: INSULIN GLARGINE SOLOSTAR 100 UNITS/ML 3 ML PEN SC SCH (08:10)
[2021-07-19] MEDS: oxyCODONE HCL IR 5 MG TAB (IMMEDIATE RELEASE) PO PRN (08:13)
[2021-07-19 08:37] LABS: BUN Creatinine Ratio 5.3 (10-20); Calcium 8.5 mg/dl (8.5-10.1); Creatinine Clr Calc Pharmacy 15.7 ml/min; Est GFR (African American) 12.5 ml/min; Est GFR (Non-African American) 10.8 ml/min; Potassium 3.9 mmol/L (3.5-5.1)
--- NOTE | 2021-07-19 11:22 | Nephrology Progress Note ---
Date of Service July 19, 2021 Assessment & Plan (1) End stage renal disease on dialysis: Plan: ESRD on TRSa dialysis > missed HD on Sat and had 2 hrs Tues and 4 hr yesterday and w/ vascular congestion on admission XR; only tolerated 1L UF yesterday > at this point recommend resume routine HD tomorrow whether as IP or OP; OK for d/c from renal standpoint (2) Hypotension: Plan: lisinopril held; not on other agents as OP; ? if from pain med but no new meds/doses- she cannot give consistent hx in this regard; improved today though did limit UF yesterday at HD -recommend holding ACEI at hospital d/c -r/o bacteremia given recent ulcerations and procedure (3) Sinus pause: Plan: sinus pause in ER > none on monitor at HD yesterday (4) History of fall: Plan: -w/ ongoing R posterior neck pain and focal tenderness > improved today and imaging negative -f/u PT recs; per primary service Admission and Anticipated Discharge Date Admission Date: July 17, 2021 Subjective seen on rounds; not sob today; feels she is mentating more clearly; no SKY or neck pain today Review of Systems Review of Systems: All systems reviewed & are unremarkable except as noted in Subjective Physical Exam Constitutional: well developed, well nourished and + obese; no acute distress and no altered mental status (not overtly confused but still some gaps in her hx) Eyes: EOM intact bilaterally ENMT: Ears: no external ear abnormality Nose: no external nose abnormality Mouth: + dry oral mucous membranes Neck: no nuchal rigidity Respiratory: normal respiratory effort Auscultation: + diminished lung sounds Cardiovascular: Rate/Rhythm: regular rate and regular rhythm Heart Sounds: normal S1 and normal S2 Extremities: + AV fistula (+T/B); no edema Gastrointestinal (Abdomen): Inspection/Auscultation: normal bowel sounds Percussion/Palpation: abdomen soft; abdomen nontender Musculoskeletal: Extremities: strength 5/5 throughout Skin: no rashes, warm and dry Psychiatric: Orientation: oriented to person, oriented to place and oriented to time Results & Data ([facility]) Vital Signs (Past 12 Hours) Vital Signs Temp Pulse Pulse Resp BP Pulse Ox 07/19/21 08:00 71 07/19/21 07:46 36.7 C 77 20 152/83 H 98 07/19/21 04:24 36.7 C 72 151/80 H 96 07/19/21 00:00 84 Laboratory Results 07/19/21 07:28 07/19/21 07:28 Diagnostic Findings blood cx ngtd TTE and neck CT reviewed
--- NOTE | 2021-07-19 11:38 | Hospitalist Progress Note ---
Date of Service July 19, 2021 Assessment & Plan (1) Hypotension: Plan: -admitted to tele -patient presented from dialysis for evaluation of persistent hypotension -lisinopril has been held - BP stable -given recent RUE vascular procedure, check blood cultures to r/o infection. No other infectious sources/symptoms noted at this time -Patient is on chronic narcotics and gabapentin however no recent new medications or dosage changes, if hypotension persists, may need to make adjustments in oxycodone and gabapentin -Echo 07/18/2021 -EF > 70%, mild tricuspid regurgitation, grade 2 diastolic dysfunction -R/o bacteremia given recent procedure - blood cultures pending (2) Sinus pause: Plan: -No further arrhythmia on telemetry, has been maintained in NSR (3) History of fall: Plan: -Head CT unremarkable, Cervical spine CT without acute change -Head and neck pain resolved -PT/OT (4) End stage renal disease on dialysis: Plan: -S/p HD treatment today -Nephrology following - okay for discharge from nephro standpoint (5) DM type 2 (diabetes mellitus, type 2): Plan: -Hgb A1c 5.0 06/2021 -Lantus and NovoLog (6) Chronic pain: Plan: -Continue home medications for now (7) DVT prophylaxis: Plan: -SQ heparin OT recommends return home. Awaiting PT recommendation. Possible discharge today Patient seen in collaboration with Dr. Renae. Please see addendum. Admission and Anticipated Discharge Date Admission Date: July 17, 2021 Subjective Seen and examined in 242-1. Feeling better today. Denies headache or neck pain. No lightheadedness, CP, SOB, vomiting, abdominal pain, diarrhea or constipation. Review of Systems Review of Systems: At least ten systems reviewed and negative except as noted in the HPI. Physical Exam Physical Exam: General Appearance: vitals as above, NAD, sitting up in bedside chair, pleasant, conversing easily Head: normocephalic, atraumatic Eyes: normal inspection, PERRL, conjunctivae normal, anicteric sclerae ENT: external ear and nose normal, oropharynx normal Neck: normal visual inspection, trachea midline, no thyromegaly Respiratory: normal respiratory effort, clear breath sounds, no wheeze, rales, rhonchi. No accessory muscle use Cardiovascular: regular rate and rhythm, no murmur, normal peripheral pulses, no BLE edema. Vessels: no JVD Chest: normal inspection of chest Abdomen/GI: normal bowel sounds, soft, nontender, no hepatosplenomegaly Extremities/Musculoskeletal: RUE AV fistula. Area of bruising superior to fistula with xavier in place, no drainage or warmth to touch. R hand red, non- tender. No cyanosis or clubbing, extremities motor strength 5/5 Neurologic: PERRL, EOMI, accommodation nl, no face palsy, no dysarthria, CN's II-XI intact bilaterally and moves all extremities Psychiatric: A+Ox3, euthymic affect Skin: no rashes, normal color, warm/dry Results & Data Results & Data ([facility]) Vital Signs (Past 12 Hours) Vital Signs Temp Pulse Pulse Resp BP Pulse Ox 07/19/21 08:00 71 07/19/21 07:46 36.7 C 77 20 152/83 H 98 07/19/21 04:24 36.7 C 72 151/80 H 96 07/19/21 00:00 84 Laboratory Results Short CBC 07/19/21 Range/Units 07:28 WBC 3.91 L (4.8-10.8) K/uL Hgb 8.8 L (12.0-16.0) g/dL Hct 28.1 L (37-47) % Plt Count 150 (130-400) K/uL BMP 07/19/21 07:28 Sodium 141 Potassium 3.9 D Chloride 105 Carbon Dioxide 29 BUN 21 H D Creatinine 4.03 H D Glucose 87 Calcium 8.[address] 07/17/21 16:33 CT head/brain wo con CLINICAL HISTORY: 66 years-old Female with fall day, SKY/vomiting. Acute head injury with recent fall TECHNIQUE: Multiple axial CT images of the head were obtained without contrast. A dose lowering technique was utilized adhering to the principles of ALARA. CT DOSE: 884.08 mGy.cm COMPARISON: 04/04/[address] FINDINGS: No acute intracranial hemorrhage, midline shift, intracranial mass, hydrocephalus, territorial ischemia or abnormal extra-axial collection. Age- related involutional changes. Cerebral vascular calcifications. The calvarium is intact. The paranasal sinuses, mastoid air cells, and middle ear cavities are clear. IMPRESSION: No acute intracranial abnormality or calvarial fracture. ACT 112: Negative or not required by law. The above report was generated using voice recognition software. It may contain grammatical, syntax or spelling errors. Electronically signed by: Portillo Thornton M.D. 07/17/2021 7:22 PM Chest X-Ray 07/17/21 19:38 XR chest 1V portable HISTORY: 66 years-old Female [place] acute weakness COMPARISON: Chest radiograph 07/11/2021 TECHNIQUE: Portable AP view of the chest FINDINGS: Cardiac silhouette is enlarged. Mild right hemidiaphragmatic elevation. Pulmonary vascular congestion with mild interstitial coarsening. No pneumothorax, large pleural effusion or airspace consolidation. Degenerative changes of the shoulders and spine. IMPRESSION: Cardiomegaly with pulmonary vascular congestion. ACT 112: Negative or not required by law. The above report was generated using voice recognition software. It may contain grammatical, syntax or spelling errors. Electronically signed by: Portillo Thornton M.D. 07/17/2021 8:[address] 07/18/21 13:04 CT cervical spine wo con CT DOSE: 331.39 mGy.cm CLINICAL HISTORY: 66 years-old Female with fall, neck pain. Acute neck pain status post fall COMPARISON: Head CT 07/17/2021, CT cervical spine 04/04/2021. TECHNIQUE: Multiple axial CT images of the cervical spine were obtained without contrast. A dose lowering technique was utilized adhering to the principles of ALARA. FINDINGS: Demineralized appearance of the bones. Mild multilevel intervertebral disc space narrowing with associated mild uncovertebral spurring and mild to moderate facet arthrosis. There is severe degeneration at C1-C2. Mild chronic wedge deformities at C7, T1 and T2 appear unchanged. Dextroscoliosis of the cervicothoracic junction. Left-sided cervical rib. The cervical soft tissues appear unremarkable. Heterogeneous thyroid. The visualized lung apices appear clear. IMPRESSION: 1. No acute fracture or subluxation. 2. Left-sided cervical rib. ACT 112: Negative or not required by law. The above report was generated using voice recognition software. It may contain grammatical, syntax or spelling errors. Electronically signed by: Portillo Thornton M.D. 07/19/2021 7:19 AM
--- NOTE | 2021-07-19 15:57 | Discharge Summary ---
Date of Service July 19, 2021 Admission HPI Per Admitting Provider This is a 66yo F with a PMH of ESRD on HD, DM II, anemia of chronic disease, dyslipidemia, chronic pain on narcotics and other medical problems listed below who presents after becoming hypotensive during dialysis earlier today. 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 No issues; discharged home with BP low 100s systolic but generally SBP maintained. Missed dialysis on 07/14 due to feeling poorly and slept most of the day on Friday as well, per . Went to dialysis today and SBP Presented with SBP reportedly in 60-70s. Had 2 hours of treatment before it was stopped and she was brought to ED for further evaluation. Has a dull headache from contusion on scalp from fall last week. No visual changes, lightheadedness, chest pain, SOB, nausea, vomiting, abdominal pain, dysuria or diarrhea. Makes urine. Last bowel movement 2 days ago. Takes 15mg oxycodone TID PRN for chronic pain in back and hips. Follows with Dr. Preez for nephrology. Repeat BP 145/62 in ED. Sinus pause reported on telemetry while in ED. HR 55 during time of exam. Potassium 5.2, creatinine 6.39, TSH 0.169, lyme serology negative, covid PCR pending. CT head with no acute intracranial abnormality or calvarial fracture. CXR shows cardiomegaly with pulmonary vascular congestion. Admission Exam Per Admitting Provider General Appearance: vitals as above, NAD, sitting up in bed, pleasant, conversing easily Head: normocephalic, atraumatic, L scalp contusion Eyes: normal inspection, PERRL, conjunctivae normal, anicteric sclerae ENT: external ear and nose normal, oropharynx normal Neck: normal visual inspection, trachea midline, no thyromegaly Respiratory: normal respiratory effort, coarse breath sounds, no wheeze, rales, rhonchi. No accessory muscle use Cardiovascular: bradycardic rate, rhythm, no murmur, normal peripheral pulses, no BLE edema. Vessels: no JVD Chest: normal inspection of chest Abdomen/GI: normal bowel sounds, soft, nontender, no hepatosplenomegaly Extremities/Musculoskeletal: RUE AV fistula. Area of bruising superior to fistula with xavier in place, no drainage or warmth to touch. No cyanosis or clubbing, extremities motor strength 5/5 Neurologic: PERRL, EOMI, accommodation nl, no face palsy, no dysarthria, CN's II-XI intact bilaterally and moves all extremities Psychiatric: A+Ox3, euthymic affect Skin: no rashes, normal color, warm/dry Principal Diagnosis Transient hypotension Discharge Exam General Appearance: vitals as above, NAD, sitting up in bedside chair, pleasant, conversing easily Head: normocephalic, atraumatic Eyes: normal inspection, PERRL, conjunctivae normal, anicteric sclerae ENT: external ear and nose normal, oropharynx normal Neck: normal visual inspection, trachea midline, no thyromegaly Respiratory: normal respiratory effort, clear breath sounds, no wheeze, rales, rhonchi. No accessory muscle use Cardiovascular: regular rate and rhythm, no murmur, normal peripheral pulses, no BLE edema. Vessels: no JVD Chest: normal inspection of chest Abdomen/GI: normal bowel sounds, soft, nontender, no hepatosplenomegaly Extremities/Musculoskeletal: RUE AV fistula. Area of bruising superior to fistula with xavier in place, no drainage or warmth to touch. No cyanosis or clubbing, extremities motor strength 5/5 Neurologic: PERRL, EOMI, accommodation nl, no face palsy, no dysarthria, CN's II-XI intact bilaterally and moves all extremities Psychiatric: A+Ox3, euthymic affect Skin: no rashes, normal color, warm/dry Discharge Data Allergies Allergy/AdvReac Type Severity Reaction Status Date / Time nitrofurantoin Allergy Intermediate Hives Verified 07/17/21 16:50 Sulfa (Sulfonamide Allergy Intermediate hives Verified 07/17/21 16:50 Antibiotics) methylprednisolone AdvReac Intermediate SWEATING , Verified 07/17/21 16:50 [From Medrol] HEART RACING Consultations 07/17/21 20:11 ED Decision to Admit Stat 07/17/21 22:46 Consult Nephrology Routine Ordered Studies 07/17/21 16:33 CT head/brain wo con Stat 07/18/21 13:04 CT cervical spine wo con Urgent Hospital Course (1) Hypotension: (2) Sinus pause: (3) End stage renal disease on dialysis: (4) DM type 2 (diabetes mellitus, type 2): (5) Anxiety and depression: (6) Ambulatory dysfunction: This is a 66yo F with a PMH of ESRD on HD, DM II, anemia of chronic disease, dyslipidemia, chronic pain on narcotics and other medical problems listed below who presents after becoming hypotensive during dialysis earlier today. 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 No issues; discharged home with BP low 100s systolic but generally SBP maintained. Missed dialysis on 07/14 due to feeling poorly and slept most of the day on Friday as well, per . Went to dialysis today and SBP Presented with SBP reportedly in 60-70s. Had 2 hours of treatment before it was stopped and she was brought to ED for further evaluation. Blood pressure has remained stable since admission. Lisinopril has been held. Had a sinus pause noted on telemetry when initially in ER but no further arrhythmia over the past 2 days while on te lemetry. Afebrile, no leukocytosis to indicate infection. Blood cultures obtained to r/o bacteremia given recent procedure- cultures still pending. Was evaluated by PT and OT services while here due to fall last week and services recommended return home with use of rolling walker with ambulation. Headache attributed to fall last week has resolved since admission - CT head and cervical spine CT unremarkable, without acute change. Per discussion with nephrology, plan to continue holding lisinopril for now until patient is evaluated by PCP and Dr. Perez. Patient is asymptomatic and hemodynamically stable at time of discharge. Total Time Total Time Spent Total Time Spent (In Minutes): 40 Discharge Plan Discharge Items Patient Disposition: Home - Self-Care Reason For Visit: TRANSIENT BRADYCARDIA, HYPOTENSION Discharge Diagnosis: TRANSIENT BRADYCARDIA, HYPOTENSION Activity: Resume your previous activity Non-emergency contact: Primary Care Provider Call non-emergency contact if: you have any medication questions and your symptoms worsen Follow-up/Referrals: Willie Epstein MD [Primary Care Provider] - (Date & Time 07/26/2021 10:40 AM Provider Willie Epstein MD Department [facility] ) Diet: Dialysis Renal Addtl Attending Provider Instructions: You were admitted for low blood pressure during dialysis. Your lisinopril has been held and blood pressure improved. Please continue to HOLD lisinopril until follow up appointment with Dr. Epstein or Dr. Perez. OTHER INSTRUCTIONS: Seek medical attention if you have: * temperature above 101 * chest pain or trouble breathing * abdominal pain, nausea, vomiting * diarrhea, dark stools or bloody stools * any unanswered questions or concerns Call 911 if symptoms are severe. Please take good care of yourself. Call if you have any questions or problems. You can reach a [facility] hospitalist on duty at [facility] 24 hours a day by calling [phone]. Emperatriz Calderon PA-C [facility] Hospitalist Pending Studies at Discharge: No Stand-Alone Forms: My [facility], Smoking Cessation Medications and DC Order Prescriptions: Continued polyethylene glycol 3350 [Miralax] 17 gram Powder In Packet 17 g PO DAILY PRN (Reason: Constipation) RF: 0 Breo Ellipta 100-25 mcg/dose Blister With Device 1 inh INHALATION QAM RF: 0 aspirin 81 mg Tablet,Chewable 81 mg PO QAM RF: 0 cholecalciferol (vitamin D3) [Vitamin D3] 1,000 unit Tablet 1,000 unit PO QAM RF: 0 gabapentin 100 mg capsule 100 mg PO UD RF: 0 Basaglar KwikPen U-100 Insulin 100 unit/mL (3 mL) insulin pen 16 unit subcut BID RF: 0 simvastatin 20 mg tablet 20 mg PO HS RF: 0 Velphoro 500 mg tablet,chewable 1,000 mg PO TIDM RF: 0 oxycodone 15 mg tablet 15 mg PO Q8 PRN (Reason: Pain) RF: 0 citalopram 20 mg tablet 20 mg PO QAM RF: 0 ropinirole 0.5 mg tablet 1 mg PO HS RF: 0 Nephro-Federico 0.8 mg tablet 1 tab PO QAM RF: 0 albuterol sulfate 90 mcg/actuation HFA aerosol inhaler 2 puff INHALATION Q4 PRN (Reason: Wheezing) RF: 0 cinacalcet 60 mg tablet 60 mg PO QAM RF: 0 benzonatate [Tessalon Perles] 100 mg capsule 100 mg PO TID PRN (Reason: cough) Qty: 30 RF: 0 fluticasone propionate [Flonase Allergy Relief] 50 mcg/actuation [place],Suspension 1 spray INTRANASAL DAILY PRN (Reason: Allergy Symptoms) RF: 0 cetirizine [Zyrtec] 10 mg Tablet 5 mg PO DAILY RF: 0 cyanocobalamin (vitamin B-12) 100 mcg Tablet 100 mcg PO DAILY RF: 0 Discontinued lisinopril 20 mg Tablet 20 mg PO QAM RF: 0 Discharge Orders: Discharge Order (Routine); Ordered 07/19/21 Ordered By: Emperatriz Calderon Admission Data Admit Date/Time: 07/17/21 21:23 Attending Provider: Dena Renae I. Admit Provider: Felix Zavala Primary Care Provider: Willie Epstein Other Providers: Felix Zavala ; Danette Perez ; Tulio Hayes ; Nichelle Abreu ; Amanda Montoya Japheth E. ; Akilah Mora Other Interventions: Discharge Summary Assessment (RN) Last Done: 07/19/21 14:22 Supervising Physician Co-Signing Physician Notes Agree with findings as detailed by Emperatriz Becerra PA-C Patient counselled on discontinuing lisinopril for now. Spent 35minis counselling patient, discussing plans with director corporate sales and discharge processes
[2021-07-19] MEDS ORDERED: GABAPENTIN 100 MG CAP PO SCH (16:00)
== END 2021-07-19 16:02 | disposition home or self-care (01) ==
LOC: 2S 12:35 → ED 12:35 → 2S 22:08
DX: Z79.51 Long term (current) use of inhaled steroids; Z79.4 Long term (current) use of insulin; M19.90 Unspecified osteoarthritis, unspecified site; Z79.82 Long term (current) use of aspirin; I12.0 Hypertensive chronic kidney disease with stage 5 chronic kidney disease or end stage renal disease; R00.1 Bradycardia, unspecified; Z79.899 Other long term (current) drug therapy; Z88.2 Allergy status to sulfonamides; E83.52 Hypercalcemia; I95.9 Hypotension, unspecified; N18.6 End stage renal disease; I45.5 Other specified heart block; E11.22 Type 2 diabetes mellitus with diabetic chronic kidney disease; Z87.891 Personal history of nicotine dependence; Z88.8 Allergy status to other drugs, medicaments and biological substances; Z99.2 Dependence on renal dialysis; G89.29 Other chronic pain; Z91.81 History of falling; Z86.711 Personal history of pulmonary embolism; Z79.891 Long term (current) use of opiate analgesic; G25.81 Restless legs syndrome

== ENCOUNTER 2022-12-02 12:11 | Inpatient (IN) ==
[2022-12-02] MEDS ORDERED: SODIUM CHLORIDE 0.9% 500 ML IV STA (12:49)
[2022-12-02] MEDS ORDERED: PIPERACILLIN/TAZOBACTAM 4.5 GM/120 ML BAG IV ONE (12:49)
[2022-12-02] MEDS ORDERED: MoRPHine SULFATE 4 MG/ML 1 ML CARP\\VIAL IV STA (12:49)
[2022-12-02] MEDS ORDERED: ONDANSETRON INJ 2 MG/ML 2 ML VIAL IV STA ×2 (12:49→15:12)
--- NOTE | 2022-12-02 13:19 | Emergency Department Note ---
Impression & Plan Cellulitis of left leg, Chronic renal insufficiency, Anemia ED Provider Note NAME: JAIMEE VENEGAS AGE: 67 SEX: F : 1955 ARRIVES VIA: Walk-In INFORMANT: Patient, ED PROVIDER(S): Williams Adams DO CHIEF COMPLAINT: Leg pain HPI: The patient is a 67-year-old female who presented to the emergency department through triage for evaluation of leg pain. The patient has left lower extremity leg pain and swelling. She has a history of DVT many years ago. This was treated and improved. She did not require long-term anticoagulation. The patient does not take any blood thinners. Starting yesterday she started having problems with pain and swelling. She notices redness in her leg. The patient denies having any chest pain or difficulty breathing. She denies having any fever or vomiting. Symptoms are moderate to severe and worsened with ambulation. ROS: See above HPI for pertinent positives & negatives. A total of 10 systems reviewed and were otherwise negative. PAST MEDICAL HISTORY: See Below PAST SURGICAL HISTORY: See Below FAMILY HISTORY: See Below SOCIAL HISTORY: See Below HOME MEDICATIONS: See Below ALLERGIES: See Below VITALS: See Below PHYSICAL EXAMINATION: GENERAL: Patient is awake alert in no acute distress patient is resting comfortably and showing no signs of anxiety EYES: The conjunctivae are clear. The pupils are round and reactive. EARS, NOSE, MOUTH AND THROAT: The nose is without any evidence of any deformity. NECK: The neck is nontender and supple. RESPIRATORY: Normal respiratory effort is noted there is no evidence of wheezing rhonchi or rales CARDIOVASCULAR: Regular rate and rhythm noted there no murmurs rubs or gallops normal S1 normal S2. GASTROINTESTINAL: The abdomen is soft. Abdomen is nontender. MUSCULOSKELETAL/EXTREMITIES: There is no evidence of gross deformity full range of motion is noted in the hips and shoulders. SKIN: There is symmetric Swelling as well as erythema noted in the left leg. Pulses are symmetric in both feet. There is no significant ankle edema. The patient has lymphangitic streaking noted going up the left thigh. NEUROLOGIC: Patient is awake alert and oriented x3 MEDICAL DECISION MAKING: The patient is a 67-year-old female who presented to the emergency department for evaluation of leg swelling and leg pain. The patient's history and physical exam appear to be more consistent with infection. She has erythema which is symmetric as well as lymphangitic streaking of the left leg. I discussed the patient's laboratory and radiographic studies with her. She was found to have an elevation in her white count as well as abnormal inflammatory markers. Patient was felt to be a good candidate for inpatient management. Given her past medical history. She was treated with IV antibiotics. She was reevaluated multiple times. She was treated with IV pain medication. I discussed the patient's condition with the on-call [facility] hospitalist group. They have agreed to evaluate the patient in the emergency department for further management and disposition. Triage Nursing notes reviewed. Prior medical records reviewed Vital Signs: reviewed and remarkable for elevated blood pressure. Differential diagnosis: Cellulitis, abscess, MRSA infection, DVT, necrotizing fasciitis, dermatitis, drug eruption, allergic reaction, as well as other pathologies. ER treatment provided: See below Diagnostics interpreted by me: ECG: EKG was obtained in the emergency department. My interpretation is normal sinus rhythm at 99 bpm. There is no ectopy. There is no acute ST segment abnormalities noted. This was compared to a tracing from July 11, 2021. No changes were noted. Cardiac Monitoring: An order was placed for continuous cardiac monitoring. The monitor shows a rate of 86 bpm with sinus rhythm. Laboratory studies: As stated above and show below. Imaging studies: See below. Radiographic imaging was reviewed by myself Consultation(s): I discussed this case with Suzetteo is on-call for the [facility] hospitalist group. Past Med/Surg History Medical History Ambulatory dysfunction walker-dependent Anxiety and depression Chronic pain DM type 2 (diabetes mellitus, type 2) IDDM Glucose stable End stage renal disease on dialysis (09/26/14) 2/2 DM - Diay[facility], [place], [facility] (started 8 years ago) - [facility] [place] - follows with Dr. Perez History of DVT (deep vein thrombosis) > 10 years ago - post op -- RLE -- treated with AC therapy x 3-6 months- d/c'ed no issues since History of pulmonary embolus (PE) > 10 years ago - post op History of renal calculi with cysto HLD (hyperlipidemia) HTN (hypertension) Limb alert care status RUE AVF Migraines Obesity Osteoarthritis Osteoporosis Psoriasis RLS (restless legs syndrome) Surgical History H/O inguinal hernia repair H/O laparoscopy H/O partial resection of colon (12/12/12) For diverticulitis History of x 2 History of colonoscopy History of cystoscopy History of tooth extraction S/P arteriovenous (AV) fistula creation x 2 BL (non functioning on left)--left still in place not working S/P arteriovenous (AV) fistula repair (~03/02/21) right S/P cholecystectomy S/P hip replacement BL Family History Mother Diabetes Sister Diabetes Other No family history of adverse response to anesthesia Social History Smoking Status: Never smoker Second Hand Exposure: No; Hx Alcohol Use: No Hx Substance Use: No Preferred Language: Spanish Communication Ability: Effective Field Map Technician Required: No Beliefs That Will Affect Care: None marital status: Current Living Situation: Spouse Current Living Situation Comment: Lives with , daughter and grandson How many Children do You have: 3 Feels Safe at Home: Yes Assistive Devices: Denture - Upper, Denture - Lower and Walker Allergies Allergies Allergy/AdvReac Type Severity Reaction Status Date / Time nitrofurantoin Allergy Intermediate Hives Verified 11/30/21 06:55 Sulfa (Sulfonamide Allergy Intermediate hives Verified 11/30/21 06:55 Antibiotics) cefazolin [From Ancef] Allergy Unknown Verified 11/30/21 06:55 pantoprazole [From Protonix] Allergy Unknown Verified 11/30/21 06:55 methylprednisolone AdvReac Intermediate SWEATING , Verified 11/30/21 06:55 [From Medrol] HEART RACING Home Meds Home Medications Medication Instructions Recorded Confirmed aspirin 81 mg chewable tablet 81 mg PO QAM 12/31/18 12/02/22 cholecalciferol (vitamin D3) 25 1,000 unit PO QAM 12/31/18 12/02/22 mcg (1,000 unit) tablet (Vitamin D3) gabapentin 100 mg capsule 100 mg PO UD 12/31/18 12/02/22 sucroferric oxyhydroxide 500 mg 1,000 mg PO TIDM 12/31/18 12/02/22 chewable tablet (Velphoro) fluticasone furoate 100 1 inh inhalation QAM 09/09/19 12/02/22 mcg-vilanterol 25 mcg/dose inhalation powder (Breo Ellipta) polyethylene glycol 3350 17 gram 17 g PO DAILY PRN Constipation 09/09/19 12/02/22 oral powder packet (Miralax) albuterol sulfate 90 mcg/actuation 2 puff inhalation Q4 PRN Wheezing 04/04/21 12/02/22 aerosol inhaler cinacalcet 60 mg tablet 60 mg PO QAM 04/04/21 12/02/22 citalopram 20 mg tablet 20 mg PO QAM 04/04/21 12/02/22 oxycodone 15 mg tablet 15 mg PO Q8 PRN Pain 04/04/21 12/02/22 ropinirole 0.5 mg tablet 2 mg PO HS 04/04/21 12/02/22 vitamin B complex-vitamin C-folic 1 tab PO QAM 04/04/21 12/02/22 acid 0.8 mg tablet (Nephro-Federico) fluticasone propionate 50 1 spray intranasal DAILY PRN 06/27/21 12/02/22 mcg/actuation nasal Allergy Symptoms spray,suspension (Flonase Allergy Relief) dulaglutide 0.75 mg/0.5 mL 0.75 mg subcut WK 12/02/22 12/02/22 subcutaneous pen injector (Trulicity) Results & Data (ED) Vital Signs Vital Signs - 24 hr 12/02/22 12:19 12/02/22 13:01 12/02/22 14:12 Temperature 36.3 C L Temperature Source Temporal Artery Scan Pulse Rate 102 H 87 Pulse Rate [Apical] 86 Respiratory Rate 18 18 Respiratory Effort / Characteristics Non-Labored Respiratory Depth Normal Respiratory Pattern Regular Blood Pressure 160/72 H Blood Pressure Mean 101 Blood Pressure Position Sitting Pulse Oximetry 100 94 Oxygen Delivery Method Room Air Room Air Sepsis Recent Fever Within 48 Hours No Sepsis New/Unexplained Change in Mental Status N/A Sepsis Action Taken by Nursing No Action Required Home Medications Current Medication List: was personally reviewed by me Laboratory Data Attestation: I reviewed the patient's lab results. 12/02/22 13:03 12/02/22 13:03 Lab Results 02/13/23 02/13/23 02/13/23 Range/Units 13:03 13:03 13:03 WBC 10.49 (4.8-10.8) K/ul RBC 2.53 L (4.20-5.40) M/uL Hgb 8.2 L (12.0-16.0) g/dl Hct 25.4 L (37.0-47.0) % MCV 100.4 H (80.0-100.0) fL MCH 32.4 (25.0-34.0) pg MCHC 32.3 (32.0-36.0) g/dL RDW Std Deviation 47.1 H (36.4-46.3) fL RDW Coeff of Erum 12.9 (11.5-14.5) % Plt Count 256 (130-400) K/uL MPV 9.7 (9.4-12.4) fL Immature Gran % (Auto) 1.3 % Neut % (Auto) 75.2 % Lymph % (Auto) 10.5 % [place] % (Auto) 9.2 % Eos % (Auto) 3.1 % Baso % (Auto) 0.7 % Neut # (Auto) 7.89 H (1.40-6.50) K/uL Lymph # (Auto) 1.10 L (1.2-3.4) K/uL [place] # (Auto) 0.97 H (0.11-0.59) K/uL Eos # (Auto) 0.32 (0-0.50) K/uL Baso # (Auto) 0.07 (0-0.2) K/uL Immature Gran # (Auto) 0.14 (0.01-0.20) K/uL ESR (0-30) mm/hr PT 10.5 (9.0-12.0) Seconds INR 1.0 (0.9-1.1) APTT 27.1 (21.0-31.0) Seconds PTT Ratio 1.0 Sodium 139 (136-145) mmol/L Potassium 4.3 (3.5-5.1) mmol/L Chloride 101 (98-107) mmol/L Carbon Dioxide 29 (21-32) mmol/L Anion Gap 9 (3-11) BUN 51 H (6-23) mg/dl Creatinine 5.71 H* (0.6-1.2) mg/dl Est Cr Clr Drug Dosing 9.3 ml/min Est GFR ( Amer) 8.2 ml/min Est GFR (Non-Af Amer) 7.0 ml/min BUN/Creatinine Ratio 8.9 L (10-20) Glucose 120 H (70-99(Fasting)) mg/dl Calcium 9.3 (8.5-10.1) mg/dl Total Bilirubin 0.3 (0.2-1.0) mg/dl AST 14 (13-39) U/L ALT 10 (7-52) U/L Alkaline Phosphatase 57 (34-104) U/L Troponin I High Sens 14.0 (0-14) pg/ml C-Reactive Protein 15.40 H (0-0.5) mg/dl Total Protein 6.7 (6.0-8.3) gm/dl Albumin 3.1 L (3.4-5.0) gm/dl Globulin 3.6 (2.5-4.0) gm/dl Albumin/Globulin Ratio 0.9 (0.9-2) Procalcitonin (0-0.5) ng/ml 12/02/22 12/02/22 Range/Units 13:03 13:03 WBC (4.8-10.8) K/ul RBC (4.20-5.40) M/uL Hgb (12.0-16.0) g/dl Hct (37.0-47.0) % MCV (80.0-100.0) fL MCH (25.0-34.0) pg MCHC (32.0-36.0) g/dL RDW Std Deviation (36.4-46.3) fL RDW Coeff of Erum (11.5-14.5) % Plt Count (130-400) K/uL MPV (9.4-12.4) fL Immature Gran % (Auto) % Neut % (Auto) % Lymph % (Auto) % [place] % (Auto) % Eos % (Auto) % Baso % (Auto) % Neut # (Auto) (1.40-6.50) K/uL Lymph # (Auto) (1.2-3.4) K/uL [place] # (Auto) (0.11-0.59) K/uL Eos # (Auto) (0-0.50) K/uL Baso # (Auto) (0-0.2) K/uL Immature Gran # (Auto) (0.01-0.20) K/uL ESR 50 H (0-30) mm/hr PT (9.0-12.0) Seconds INR (0.9-1.1) APTT (21.0-31.0) Seconds PTT Ratio Sodium (136-145) mmol/L Potassium (3.5-5.1) mmol/L Chloride (98-107) mmol/L Carbon Dioxide (21-32) mmol/L Anion Gap (3-11) BUN (6-23) mg/dl Creatinine (0.6-1.2) mg/dl Est Cr Clr Drug Dosing ml/min Est GFR ( Amer) ml/min Est GFR (Non-Af Amer) ml/min BUN/Creatinine Ratio (10-20) Glucose (70-99(Fasting)) mg/dl Calcium (8.5-10.1) mg/dl Total Bilirubin (0.2-1.0) mg/dl AST (13-39) U/L ALT (7-52) U/L Alkaline Phosphatase (34-104) U/L Troponin I High Sens (0-14) pg/ml C-Reactive Protein (0-0.5) mg/dl Total Protein (6.0-8.3) gm/dl Albumin (3.4-5.0) gm/dl Globulin (2.5-4.0) gm/dl Albumin/Globulin Ratio (0.9-2) Procalcitonin 1.11 H (0-0.5) ng/ml Administered Medications Diphenhydramine HCl (Diphenhydramine Capsule 25 Mg Cap) 25 mg PO Q6H PRN PRN Reason: Allergic Reaction Stop: 01/01/23 17:44 Last Admin: 12/02/22 17:54 Dose: 25 mg Documented By: NREphraim Piperacillin Sod/Tazobactam (Sod 3.375 gm/ Dextrose) 115 mls @ 28.75 mls/hr IV Q12H STEPHAN; Protocol Stop: 12/10/22 00:00 Last Infusion: 12/03/22 03:30 Dose: 0 mls/hr Documented By: Admin: 12/02/22 23:26 Dose: 28.8 mls/hr Documented By: SATINDER Insulin Aspart (Insulin Aspart Per Unit) 0 units SC ACHS [facility] Stop: 01/01/23 18:42 Last Admin: 12/02/22 21:53 Dose: Not Given Documented By: Admin: 12/02/22 20:34 Dose: Not Given Documented By: SATINDER Miscellaneous (Sucroferric Oxyhydroxide [Velphoro] - Order Awaiting Action) 1 each N/A QS [facility] Stop: 01/02/23 00:00 Last Admin: 12/02/22 23:29 Dose: Not Given Documented By: SATINDER Oxycodone HCl (Oxycodone Hcl Ir 5 Mg Tab (Immediate Release)) 15 mg PO Q8 PRN PRN Reason: Pain Stop: 12/16/22 18:42 Last Admin: 12/02/22 21:01 Dose: 15 mg Documented By: SATINDER Ropinirole HCl (Ropinirole Hcl 2 Mg Tablet) 2 mg PO HS [facility] Stop: 01/01/23 20:59 Last Admin: 12/02/22 21:30 Dose: 2 mg Documented By: SATINDER Discontinued Medications Sodium Chloride (Nss) 500 mls @ 999 mls/hr IV .Q31M STA Stop: 12/02/22 13:19 Last Infusion: 12/02/22 14:50 Dose: 0 mls/hr Documented By: Admin: 12/02/22 14:05 Dose: 999 mls/hr Documented By: ALINA Piperacillin Sod/Tazobactam Sod (Zosyn) 4.5 gm in 120 mls @ 240 mls/hr IV NOW ONE Stop: 12/02/22 13:18 Last Infusion: 12/02/22 17:33 Dose: 0 mls/hr Documented By: Admin: 12/02/22 15:06 Dose: 240 mls/hr Documented By: PK Morphine Sulfate (Morphine Sulfate 4 Mg/Ml 1 Ml Carp\Vial) 4 mg IV NOW STA Stop: 12/02/22 12:50 Last Admin: 12/02/22 14:05 Dose: 4 mg Documented By: ALINA Ondansetron HCl (Ondansetron Inj 2 Mg/Ml 2 Ml Vial) 4 mg IV NOW STA Stop: 12/02/22 12:50 Last Admin: 12/02/22 14:06 Dose: 4 mg Documented By: ALINA Ondansetron HCl (Ondansetron Inj 2 Mg/Ml 2 Ml Vial) 4 mg IV NOW STA Stop: 12/02/22 15:13 Last Admin: 12/02/22 15:17 Dose: 4 mg Documented By: NRB Imaging Data Radiologist's Impression: Chest X-Ray 12/02/22 12:49 XR chest 1V portable HISTORY: 67 years-old Female Fever acute fever COMPARISON: Chest radiograph 07/17/2021 TECHNIQUE: AP view of the chest FINDINGS: Cardiac silhouette is enlarged. Atherosclerosis of the aorta. No pneumothorax, pleural effusion, airspace consolidation or pulmonary edema. Degenerative changes of the shoulders and spine. Surgical clips project over the right upper extremity. IMPRESSION: Cardiomegaly without acute process. ACT 112: Negative or not required by law. The above report was generated using voice recognition software. It may contain grammatical, syntax or spelling errors. Electronically signed by: Portillo Thornton M.D. 12/02/2022 1:23 PM Venous Doppler Study 12/02/22 12:49 LEFT LOWER EXTREMITY VENOUS DOPPLER CLINICAL HISTORY: Left lower extremity pain. COMPARISON STUDY: Bilateral lower extremity venous Doppler ultrasound December 31, 2018. TECHNIQUE: Sonography of the deep venous system of the left lower extremity was performed. Compression and augmentation were evaluated. FINDINGS: The left common femoral, superficial femoral and popliteal veins were compressible. Augmentation was normal. Flow was shown within the deep calf vessels. IMPRESSION: No evidence of deep venous thrombus within the left lower extremity. ACT 112: Negative or not required by law. Electronically signed by: Sergo Newell M.D. 12/02/2022 4:35 PM Discharge Plan Visit Data Chief Complaint: Calf Pain Stated Complaint: POSSIBLE BLOODCLOT,L CALF SWOLLEN AND RED ED Provider: Williams Adams Discharge Problem: Cellulitis of left leg, Chronic renal insufficiency, Anemia Patient Disposition: Admitted As Inpatient Discharge Instructions Interventions: ED Discharge Assessment Last Done: 12/02/22 18:13 Chronic renal insufficiency Qualifiers: Chronic kidney disease stage: unspecified stage Qualified Code(s): N18.9 - Chronic kidney disease, unspecified Anemia Qualifiers: Anemia type: unspecified type Qualified Code(s): D64.9 - Anemia, unspecified
--- NOTE | 2022-12-02 13:25 | XRay Report ---
XR chest 1V portable HISTORY: 67 years-old Female Fever acute fever COMPARISON: Chest radiograph 07/17/2021 TECHNIQUE: AP view of the chest FINDINGS: Cardiac silhouette is enlarged. Atherosclerosis of the aorta. No pneumothorax, pleural effusion, airs pace consolidation or pulmonary edema. Degenerative changes of the shoulders and spine. Surgical clip s project over the right upper extremity. IMPRESSION: Cardiomegaly without acute process. ACT 112: Negative or not required by law. The above report was generated using voice recognition software. It may contain grammatical, syntax o r spelling errors. Electronically signed by: Portillo Thornton M.D. 12/02/2022 1:23 PM
[2022-12-02 13:49] LABS: Basophils # (auto) 0.07 K/uL (0-0.2); Basophils % (auto) 0.7 %; Eosinophils # (auto) 0.32 K/uL (0-0.50); Eosinophils % (auto) 3.1 %; Hematocrit (blood only) 25.4 % (37.0-47.0); Hemoglobin 8.2 g/dl (12.0-16.0); Immature Granulocytes # (auto) 0.14 K/uL (0.01-0.20); Immature Granulocytes % (auto) 1.3 %; Lymphocytes % (auto) 10.5 %; Mean Corpuscular Hemoglobin 32.4 pg (25.0-34.0); Mean Corpuscular Hgb Conc 32.3 g/dL (32.0-36.0); Mean Corpuscular Volume 100.4 fL (80.0-100.0); Mean Platelet Volume 9.7 fL (9.4-12.4); Monocytes # (auto) 0.97 K/uL (0.11-0.59); Monocytes % (auto) 9.2 %; Neutrophils # (auto) 7.89 K/uL (1.40-6.50); Neutrophils % (auto) 75.2 %; Platelet Count 256 K/uL (130-400); RDW Coefficient of Variation 12.9 % (11.5-14.5); RDW Standard Deviation 47.1 fL (36.4-46.3); Red Blood Count 2.53 M/uL (4.20-5.40); White Blood Count 10.49 K/ul (4.8-10.8)
[2022-12-02 14:01] LABS: Albumin Globulin Ratio 0.9 (0.9-2); Albumin Level 3.1 gm/dl (3.4-5.0); BUN Creatinine Ratio 8.9 (10-20); Bilirubin,Total 0.3 mg/dl (0.2-1.0); C Reactive Protein 15.4 mg/dl (0-0.5); Calcium 9.3 mg/dl (8.5-10.1); Creatinine Clr Calc Pharmacy 9.3 ml/min; Est GFR (African American) 8.2 ml/min; Globulin 3.6 gm/dl (2.5-4.0); Potassium 4.3 mmol/L (3.5-5.1); Total Protein 6.7 gm/dl (6.0-8.3)
[2022-12-02 14:07] LABS: Partial Thromboplastin Time 27.1 Seconds (21.0-31.0); Prothrombin Time 10.5 Seconds (9.0-12.0)
--- NOTE | 2022-12-02 16:19 | History & Physical Report ---
Date of Service December 02, 2022 Assessment & Plan (1) Cellulitis of left leg: Plan: - Admit to med surg w/ tele - Continue abx, follow blood culture - ESR of 50, CRP 15.4, Procal 1.1, WBC 10.49 but afebrile currently - Check MRSA nasal swab - Will continue on IV zosyn, renally reduced - Outlined skin with marker at bedside and dated (2) End stage renal disease on dialysis: Plan: - Hx of such gets HD on Fri, , Fri - finished last session on Friday - Consult nephro for HD tomorrow on her routinely scheduled day - K + is currently 4.3, BUN 51, Cr. 5.71 (3) DM type 2 (diabetes mellitus, type 2): Plan: - Iss with accuchecks achs - Last took trulicity 0.75 mg today - Follow A1C with am labs (4) Anemia: Plan: - Chronic, hgb of 8.2, secondary to CKD stage V - Will continue with mvi, nephro-ewelina, cinacalcet (5) Chronic pain: Plan: - May continue oxycodone 15 mg Q8 H prn for chronic pain (6) Obesity: Plan: BMI 30.6, diet and exercise encouraged at bedside DVT ppx: - Iesha, nicolass CODE:Full Dispo: From home, discharge likely within 1-2 days A total of 65 minutes were spent with greater than 50% of that time face to face with the patient, personally reviewing all current laboratories, imaging studies, past medication reconciliation, outpatient chart review, and discussion with specialists to collaborate care for the patient with attending. Please see attending documentation for corrections and/or additions. History of Present Illness Chief Complaint: Leg swelling and redness Primary Care Provider: Willie Epstein MD This is a 67 yo F with PMHx of ESRD on HD, DM II, anemia of chronic disease, dyslipidemia, obesity, Vit D deficiency, hx of PE, chronic anemia due renal disease, chronic pain on narcotics who presents with left lower extremity redness and swelling. Her symptoms began yesterday late morning with some swelling around her left lower extremity, then progressed to being more red. She denies any specific pain associated with it and has been able to walk without difficulty. She denies sweats or chills, however awoke this morning and thought that maybe she had had a fever overnight. She did not take her temperature. Patient presents to the ER with her . She has before had a cellulitis in the right lower extremity where she required antibiotic treatment. Her regularly scheduled dialysis is Friday, last received on Friday. Patient follows with Dr. Kumar as an outpatient with nephrology. She denies any other illness like symptoms. She did not take any of her routinely scheduled medications today. Allergies Allergy/AdvReac Type Severity Reaction Status Date / Time nitrofurantoin Allergy Intermediate Hives Verified 11/30/21 06:55 Sulfa (Sulfonamide Allergy Intermediate hives Verified 11/30/21 06:55 Antibiotics) cefazolin [From Ancef] Allergy Unknown Verified 11/30/21 06:55 pantoprazole [From Protonix] Allergy Unknown Verified 11/30/21 06:55 methylprednisolone AdvReac Intermediate SWEATING , Verified 11/30/21 06:55 [From Medrol] HEART RACING Home Medications Medication Instructions Recorded Confirmed Type aspirin 81 mg chewable tablet 81 mg PO QAM 12/31/18 12/02/22 History cholecalciferol (vitamin D3) 25 1,000 unit PO QAM 12/31/18 12/02/22 History mcg (1,000 unit) tablet (Vitamin D3) gabapentin 100 mg capsule 100 mg PO UD 12/31/18 12/02/22 History sucroferric oxyhydroxide 500 mg 1,000 mg PO TIDM 12/31/18 12/02/22 History chewable tablet (Velphoro) fluticasone furoate 100 1 inh inhalation QAM 09/09/19 12/02/22 History mcg-vilanterol 25 mcg/dose inhalation powder (Breo Ellipta) polyethylene glycol 3350 17 gram 17 g PO DAILY PRN Constipation 09/09/19 12/02/22 History oral powder packet (Miralax) albuterol sulfate 90 mcg/actuation 2 puff inhalation Q4 PRN Wheezing 04/04/21 12/02/22 History aerosol inhaler cinacalcet 60 mg tablet 60 mg PO QAM 04/04/21 12/02/22 History citalopram 20 mg tablet 20 mg PO QAM 04/04/21 12/02/22 History oxycodone 15 mg tablet 15 mg PO Q8 PRN Pain 04/04/21 12/02/22 History ropinirole 0.5 mg tablet 2 mg PO HS 04/04/21 12/02/22 History vitamin B complex-vitamin C-folic 1 tab PO QAM 04/04/21 12/02/22 History acid 0.8 mg tablet (Nephro-Ewelina) fluticasone propionate 50 1 spray intranasal DAILY PRN 06/27/21 12/02/22 History mcg/actuation nasal Allergy Symptoms spray,suspension (Flonase Allergy Relief) dulaglutide 0.75 mg/0.5 mL 0.75 mg subcut WK 12/02/22 12/02/22 History subcutaneous pen injector (Trulicity) Past Med/Surg History Medical History Ambulatory dysfunction walker-dependent Anxiety and depression Chronic pain DM type 2 (diabetes mellitus, type 2) IDDM Glucose stable End stage renal disease on dialysis (09/26/14) 2/2 DM - Diaylsis Chica, Keke, Sat (started 8 years ago) - [facility] - follows with Dr. Perez History of DVT (deep vein thrombosis) > 10 years ago - post op -- RLE -- treated with AC therapy x 3-6 months- d/c'ed no issues since History of pulmonary embolus (PE) > 10 years ago - post op History of renal calculi with cysto HLD (hyperlipidemia) HTN (hypertension) Limb alert care status RUE AVF Migraines Obesity Osteoarthritis Osteoporosis Psoriasis RLS (restless legs syndrome) Surgical History H/O inguinal hernia repair H/O laparoscopy H/O partial resection of colon (12/12/12) For diverticulitis History of x 2 History of colonoscopy History of cystoscopy History of tooth extraction S/P arteriovenous (AV) fistula creation x 2 BL (non functioning on left)--left still in place not working S/P arteriovenous (AV) fistula repair (~03/02/21) right S/P cholecystectomy S/P hip replacement BL Family History Mother Diabetes Sister Diabetes Other No family history of adverse response to anesthesia Social History Smoking Status: Never smoker Second Hand Exposure: No; Hx Alcohol Use: No Hx Substance Use: No Preferred Language: Tajik Communication Ability: Effective Ladler Required: No Beliefs That Will Affect Care: None marital status: Current Living Situation: Spouse Current Living Situation Comment: Lives with , daughter and grandson How many Children do You have: 3 Feels Safe at Home: Yes Assistive Devices: Denture - Upper, Denture - Lower and Walker Review of Systems Review of Systems: Constitutional: + Possible fever but not documented, no sweats or chills Eyes: No diplopia, no worsening or blurred vision ENT: normal hearing, no trouble swallowing Respiratory: No cough, sputum, dyspnea at rest or on exertion Cardiovascular: No chest pain, tightness or palpitations Abdomen: No pain, nausea, vomiting, diarrhea or constipation Musculoskeletal: No joint pain, calf pain, swelling Neurologic: No weakness, numbness/tingling, or balance problems Psychiatric: No anxiety or depression Skin: + LLE redness, no longer swollen but reported yesterday that it was, otherwise No rash or itch Physical Exam Physical Exam: General: awake, alert, no apparent distress, Obese with BMI of 30.6 Head: Normocephalic, atraumatic ENT: PERRL, EOMI, no pharyngeal exudate, mucous membranes moist Chest: Clear to auscultation, on room air, no adventitious breath sounds Cardiac: Regular rate and rhythm, no murmur, no JVD, normal peripheral pulses, good capillary refill Abdominal: NABS x 4 quadrants, soft, nondistended, nontender to palpation, no rebound or guarding Extremities: AVF with + bruit, otherwise normal inspection, no peripheral edema or erythema, calfs nontender to palpation Psych: Normal mood and affect Skin: LLE with erythema, no edema, spares the ankle and encompasses the majority of the calf muscle, with anterior erythematous streaking going up the mid and anterior thigh. Outlined with skin marker. Neuro: AAO x 3, strength intact bilaterally and rated 5/5, no motor deficits, speech is clear, no peripheral sensory deficits Results & Data Results & Data ([facility]) Vital Signs (Past 12 Hours) Vital Signs Temp Pulse Pulse Resp BP Pulse Ox O2 Del Method 12/02/22 14:12 86 18 94 Room Air 12/02/22 13:01 87 12/02/22 12:19 36.3 C L 102 H 18 160/72 H 100 Room Air Laboratory Results 12/02/22 14:47 Aerobic Blood Culture - Pending Blood Anaerobic Blood Culture - Pending 12/02/22 13:03 Aerobic Blood Culture - Pending Blood Anaerobic Blood Culture - Pending 12/02/22 12/02/22 12/02/22 13:03 13:03 13:03 WBC RBC Hgb Hct MCV MCH MCHC RDW Std Deviation RDW Coeff of Erum Plt Count MPV Immature Gran % (Auto) Neut % (Auto) Lymph % (Auto) [place] % (Auto) Eos % (Auto) Baso % (Auto) Neut # (Auto) Lymph # (Auto) [place] # (Auto) Eos # (Auto) Baso # (Auto) Immature Gran # (Auto) ESR 50 H PT INR APTT PTT Ratio Sodium 139 Potassium 4.3 Chloride 101 Carbon Dioxide 29 Anion Gap 9 BUN 51 H Creatinine 5.71 H* Est Cr Clr Drug Dosing 9.3 Est GFR ( Amer) 8.2 Est GFR (Non-Af Amer) 7.0 BUN/Creatinine Ratio 8.9 L Glucose 120 H Calcium 9.3 Total Bilirubin 0.3 AST 14 ALT 10 Alkaline Phosphatase 57 Troponin I High Sens 14.0 C-Reactive Protein 15.40 H Total Protein 6.7 Albumin 3.1 L Globulin 3.6 Albumin/Globulin Ratio 0.9 Procalcitonin 1.11 H 12/02/22 12/02/22 13:03 13:03 WBC 10.49 RBC 2.53 L Hgb 8.2 L Hct 25.4 L MCV 100.4 H MCH 32.4 MCHC 32.3 RDW Std Deviation 47.1 H RDW Coeff of Erum 12.9 Plt Count 256 MPV 9.7 Immature Gran % (Auto) 1.3 Neut % (Auto) 75.2 Lymph % (Auto) 10.5 [place] % (Auto) 9.2 Eos % (Auto) 3.1 Baso % (Auto) 0.7 Neut # (Auto) 7.89 H Lymph # (Auto) 1.10 L [place] # (Auto) 0.97 H Eos # (Auto) 0.32 Baso # (Auto) 0.07 Immature Gran # (Auto) 0.14 ESR PT 10.5 INR 1.0 APTT 27.1 PTT Ratio 1.0 Sodium Potassium Chloride Carbon Dioxide Anion Gap BUN Creatinine Est Cr Clr Drug Dosing Est GFR ( Amer) Est GFR (Non-Af Amer) BUN/Creatinine Ratio Glucose Calcium Total Bilirubin AST ALT Alkaline Phosphatase Troponin I High Sens C-Reactive Protein Total Protein Albumin Globulin Albumin/Globulin Ratio Procalcitonin Diagnostic Findings Chest X-Ray 12/02/22 12:49 XR chest 1V portable HISTORY: 67 years-old Female Fever acute fever COMPARISON: Chest radiograph 07/17/2021 TECHNIQUE: AP view of the chest FINDINGS: Cardiac silhouette is enlarged. Atherosclerosis of the aorta. No pneumothorax, pleural effusion, airspace consolidation or pulmonary edema. Degenerative changes of the shoulders and spine. Surgical clips project over the right upper extremity. IMPRESSION: Cardiomegaly without acute process. ACT 112: Negative or not required by law. The above report was generated using voice recognition software. It may contain grammatical, syntax or spelling errors. Electronically signed by: Portillo Thornton M.D. 12/02/2022 1:23 PM Code Status & VTE Plan Code Status Full code - discussed with pt at bedside Supervising Physician Co-Signing Physician Notes 67-year-old woman with end-stage renal disease on hemodialysis, DM type II and other medical problems as detailed who presents with left lower extremity redness and swelling started yesterday and has progressed. Reported she may have had a fever overnight but did not check her temperature. Exam notable for elderly woman in no distress, erythema involving most of left leg with streaking extending up to the anterior mid thigh [marked], mild lateral tenderness Labs notable for hemoglobin of 8.2, creatinine of 5.71, BUN of 51, CRP of 15.4, procalcitonin of 1.11 Lower extremity lower extremity Dopplers negative for any DVT Left lower extremity cellulitis Received Zosyn in the ER. Reports some itching but also stated that she usually has itching. No obvious rash or hives seen. We will continue Zosyn for now and monitor. Get MRSA screen. Ensure optimal glycemic control Nephro c/s for HD Other plans as detailed by Ana Rosa Lawton PA-C (1) Anemia Anemia type: unspecified type Qualified Code(s): D64.9 - Anemia, unspecified
--- NOTE | 2022-12-02 16:36 | Ultrasound Report ---
LEFT LOWER EXTREMITY VENOUS DOPPLER CLINICAL HISTORY: Left lower extremity pain. COMPARISON STUDY: Bilateral lower extremity venous Doppler ultrasound December 31, 2018. TECHNIQUE: Sonography of the deep venous system of the left lower extremity was performed. Compressi on and augmentation were evaluated. FINDINGS: The left common femoral, superficial femoral and popliteal veins were compressible. Augmen tation was normal. Flow was shown within the deep calf vessels. IMPRESSION: No evidence of deep venous thrombus within the left lower extremity. ACT 112: Negative or not required by law. Electronically signed by: Sergo Newell M.D. 12/02/2022 4:35 PM
[2022-12-02] MEDS: diphenhydrAMINE Capsule 25 MG CAP PO PRN (17:54)
[2022-12-02] MEDS ORDERED: GLUCOSE 10 TAB/TUBE PO PRN (18:43)
[2022-12-02] MEDS ORDERED: FLUTICASONE PROPIONATE NA SPR 16 GM BTL PRN (18:43)
[2022-12-02] MEDS ORDERED: GLUCAGON FOR INJ 1 MG VIAL SQ PRN (18:43)
[2022-12-02] MEDS ORDERED: DEXTROSE 50% 50 ML SYRINGE IV PRN (18:43)
[2022-12-02] MEDS ORDERED: CARBOHYDRATES FOR HYPOGLYCEMIA PO PRN (18:43)
[2022-12-02] MEDS ORDERED: GLUCOSE 40% GEL 15 GM TUBE PO PRN (18:43)
[2022-12-02] MEDS ORDERED: POLYETHYLENE (MIRALAX) 17 GM PACK PO PRN (18:43)
[2022-12-02] MEDS ORDERED: ONDANSETRON INJ 2 MG/ML 2 ML VIAL IV PRN (18:43)
[2022-12-02] MEDS: INSULIN ASPART PER UNIT SC SCH ×2 (20:34→21:53)
[2022-12-02] MEDS: oxyCODONE HCL IR 5 MG TAB (IMMEDIATE RELEASE) PO PRN (21:01)
[2022-12-02] MEDS: rOPINIRole HCL 2 MG TABLET PO SCH (21:30)
[2022-12-02] MEDS: PIPERACILLIN/TAZOBACTAM 3.375 GM in DEXTROSE 5% 100 ML IV SCH (23:26)
[2022-12-03] MEDS ORDERED: SODIUM CHLORIDE 0.9% 1000ML 1,000 ML IV PRN (07:33)
[2022-12-03] MEDS ORDERED: HEPARIN SOD (PORCINE) 1000 UNIT/ML IV ONE (07:44)
[2022-12-03] MEDS ORDERED: EPOETIN ALFA 20,000 UNITS/ML VIAL IV ONE (08:00)
[2022-12-03] MEDS: NEPHROCAPS PO SCH (09:16)
[2022-12-03] MEDS: FLUTICASONE/VILANTEROL 100/25MCG 14 PUFFS/INHALER INH SCH (09:17)
[2022-12-03] MEDS: INSULIN ASPART PER UNIT SC SCH ×4 (09:21→21:22)
[2022-12-03 10:02] LABS: Hematocrit (blood only) 25.3 % (37.0-47.0); Hemoglobin 8.1 g/dl (12.0-16.0); Mean Corpuscular Hemoglobin 32.8 pg (25.0-34.0); Mean Corpuscular Volume 102.4 fL (80.0-100.0); Mean Platelet Volume 9.4 fL (9.4-12.4); Platelet Count 264 K/uL (130-400); RDW Coefficient of Variation 13.1 % (11.5-14.5); Red Blood Count 2.47 M/uL (4.20-5.40); White Blood Count 9.12 K/ul (4.8-10.8)
[2022-12-03 10:23] LABS: Calcium 9.2 mg/dl (8.5-10.1); Magnesium 2.3 mg/dl (1.7-2.4); Potassium 4.6 mmol/L (3.5-5.1)
[2022-12-03 10:40] LABS: Creatinine Clr Calc Pharmacy 8.2 ml/min; Est GFR (African American) 6.9 ml/min
[2022-12-03 10:41] LABS: BUN Creatinine Ratio 8.9 (10-20); Phosphorus 7.1 mg/dl (2.5-4.9)
[2022-12-03 11:24] LABS: Estimated Average Glucose 97 mg/dl
[2022-12-03] MEDS: HEPARIN SOD (PORCINE) 1000 UNIT/ML IV SCH ×3 (11:26→14:39)
--- NOTE | 2022-12-03 13:00 | Nephrology Consultation ---
Date of Consultation December 03, 2022 Assessment & Plan (1) End stage renal disease on dialysis: on TRSa HD > for routine HD today; goal of 2L off keeping SBP > 90 mm using AVf next HD on 12/05 or as clinical needs dictate -continue velforo if possible or ask pt to bring in her own binder (2) Anemia: anemia in range that it's been on other treatments >daily hgb > only miniheparin on HD >>her t sat in October was 44% at dialysis > no venofer indicated >20 K units epo w/ HD History of Present Illness Reason for Consultation: ESRD on HD Requesting Physician: Dr Renae Attending Physician: Vannesa Rodriguez MD History of Present Illness 67 y/o F whom I'm asked to see for dialysis needs was admitted last evening with left leg cellulitis. PMH also includes DM, ambulatory dysfunction/walker dependent, class 2 obesity, chronic pain on narcotics, HTN, restless leg syndrome, chronic anemia, RLE cellulitis admission 2018. She noticed some lower extremity pain and later swelling on 11/30 after dialysis. The pain was not severe but with the swelling and later redness progressing proximally she came for evaluation. No f/c. no broken skin or wound or trauma to LLE. She was started on renally dosed Zosyn. She is generally adherent to HD treatments and dialyzes TRSat under my care via AV fistula at [facility]. Notably she has had a drop in hgb in the last 2 weeks by 2.5 mg/dL for no clear cause. Anemia is generally managed at dialysis. Today she feels well with no dypsnea; less edema and redness on LLE; no n/v/d/c; no bleeding that she can identify. Allergies Allergy/AdvReac Type Severity Reaction Status Date / Time nitrofurantoin Allergy Intermediate Hives Verified 11/30/21 06:55 Sulfa (Sulfonamide Allergy Intermediate hives Verified 11/30/21 06:55 Antibiotics) cefazolin [From Ancef] Allergy Unknown Verified 11/30/21 06:55 pantoprazole [From Protonix] Allergy Unknown Verified 11/30/21 06:55 methylprednisolone AdvReac Intermediate SWEATING , Verified 11/30/21 06:55 [From Medrol] HEART RACING Home Medications Medication Instructions Recorded Confirmed Type aspirin 81 mg chewable tablet 81 mg PO QAM 12/31/18 12/02/22 History cholecalciferol (vitamin D3) 25 1,000 unit PO QAM 12/31/18 12/02/22 History mcg (1,000 unit) tablet (Vitamin D3) gabapentin 100 mg capsule 100 mg PO UD 12/31/18 12/02/22 History sucroferric oxyhydroxide 500 mg 1,000 mg PO TIDM 12/31/18 12/02/22 History chewable tablet (Velphoro) fluticasone furoate 100 1 inh inhalation QAM 09/09/19 12/02/22 History mcg-vilanterol 25 mcg/dose inhalation powder (Breo Ellipta) polyethylene glycol 3350 17 gram 17 g PO DAILY PRN Constipation 09/09/19 12/02/22 History oral powder packet (Miralax) albuterol sulfate 90 mcg/actuation 2 puff inhalation Q4 PRN Wheezing 04/04/21 12/02/22 History aerosol inhaler cinacalcet 60 mg tablet 60 mg PO QAM 04/04/21 12/02/22 History citalopram 20 mg tablet 20 mg PO QAM 04/04/21 12/02/22 History oxycodone 15 mg tablet 15 mg PO Q8 PRN Pain 04/04/21 12/02/22 History ropinirole 0.5 mg tablet 2 mg PO HS 04/04/21 12/02/22 History vitamin B complex-vitamin C-folic 1 tab PO QAM 04/04/21 12/02/22 History acid 0.8 mg tablet (Nephro-Federico) fluticasone propionate 50 1 spray intranasal DAILY PRN 06/27/21 12/02/22 History mcg/actuation nasal Allergy Symptoms spray,suspension (Flonase Allergy Relief) dulaglutide 0.75 mg/0.5 mL 0.75 mg subcut WK 12/02/22 12/02/22 History subcutaneous pen injector (Trulicity) Patient History Medical History Ambulatory dysfunction walker-dependent Anxiety and depression Chronic pain DM type 2 (diabetes mellitus, type 2) IDDM Glucose stable End stage renal disease on dialysis (09/26/14) 2/2 DM - Diaylsis Keke [place], Sat (started 8 years ago) - [facility] - follows with Dr. Perez History of DVT (deep vein thrombosis) > 10 years ago - post op -- RLE -- treated with AC therapy x 3-6 months- d/c'ed no issues since History of pulmonary embolus (PE) > 10 years ago - post op History of renal calculi with cysto HLD (hyperlipidemia) HTN (hypertension) Limb alert care status RUE AVF Migraines Obesity Osteoarthritis Osteoporosis Psoriasis RLS (restless legs syndrome) Surgical History H/O inguinal hernia repair H/O laparoscopy H/O partial resection of colon (12/12/12) For diverticulitis History of x 2 History of colonoscopy History of cystoscopy History of tooth extraction S/P arteriovenous (AV) fistula creation x 2 BL (non functioning on left)--left still in place not working S/P arteriovenous (AV) fistula repair (~03/02/21) right S/P cholecystectomy S/P hip replacement BL Family History Mother Diabetes Sister Diabetes Other No family history of adverse response to anesthesia Social History Smoking Status: Never smoker Second Hand Exposure: No; Hx Alcohol Use: No Hx Substance Use: No Preferred Language: Citizen Of [place] Communication Ability: Effective Regional Marketing Director Required: No Beliefs That Will Affect Care: None marital status: Current Living Situation: Spouse Current Living Situation Comment: Lives with , daughter and grandson How many Children do You have: 3 Feels Safe at Home: Yes Assistive Devices: Denture - Upper, Denture - Lower and Walker Review of Systems Review of Systems: All systems reviewed & are unremarkable except as noted in HPI & below Physical Exam Constitutional: well developed, well nourished and + obese; no acute distress Eyes: EOM intact bilaterally ENMT: Ears: no external ear abnormality Nose: no external nose abnormality Mouth: + dry oral mucous membranes Neck: no nuchal rigidity Respiratory: normal respiratory effort Auscultation: + diminished lung sounds Cardiovascular: Rate/Rhythm: regular rate and regular rhythm Heart Sounds: + murmur Extremities: + AV fistula; no edema Gastrointestinal (Abdomen): Inspection/Auscultation: normal bowel sounds Percussion/Palpation: abdomen soft; abdomen nontender Musculoskeletal: Extremities: strength 5/5 throughout Skin: no rashes, warm and dry Neurologic: valdez, fluent speech, no tremor Psychiatric: Orientation: alert and oriented x 3 Results & Data ([facility]) Vital Signs (Past 12 Hours) Vital Signs Temp Pulse Pulse Pulse Resp BP BP 12/03/22 12:30 86 122/54 L 12/03/22 12:00 84 118/59 L 12/03/22 11:30 88 126/60 12/03/22 11:00 85 112/55 L 12/03/22 10:30 90 95/64 L 12/03/22 10:00 88 120/64 12/03/22 09:53 88 133/63 12/03/22 09:42 36.5 C 90 12/03/22 08:37 36.5 C 86 18 123/72 Pulse Ox O2 Del Method 12/03/22 12:30 12/03/22 12:00 12/03/22 11:30 12/03/22 11:00 12/03/22 10:30 12/03/22 10:00 12/03/22 09:53 12/03/22 09:42 12/03/22 08:37 98 Room Air Laboratory Results 12/03/22 09:43 12/03/22 09:43 Diagnostic Findings CXR > cardiomegaly w/o acute process DVT LLE > no DVT (2) Anemia Anemia type: unspecified type Qualified Code(s): D64.9 - Anemia, unspecified
[2022-12-03] MEDS: ASPIRIN 81 MG ECTAB PO SCH (14:32)
--- NOTE | 2022-12-03 14:32 | Hospitalist Progress Note ---
Date of Service December 03, 2022 Assessment & Plan (1) Cellulitis of left leg: Plan: This is a 67 yo F with PMHx of ESRD on HD, DM II, anemia of chronic disease, dyslipidemia, obesity, Vit D deficiency, hx of PE, chronic anemia due renal disease, chronic pain on narcotics who presented with left lower extremity redness and swelling. Does not appear septic On admission, ESR 50, CRP 15.4, Procal 1.1, WBC 10K Remains afebrile Blood cultures NGTD Improving on IV Zosyn -- will continue for an additional day and tentatively plan for DC on p.o. antibiotics tomorrow (2) End stage renal disease on dialysis: Plan: Receives dialysis Friday, , Friday Nephrology consult for HD orders Scheduled for HD today (3) DM type 2 (diabetes mellitus, type 2): Plan: Hgb A1c 5.0 Typically managed with Trulicity Receiving NovoLog per protocol while hospitalized (4) Anemia: Plan: History of chronic anemia due to CKD Hgb 8.1 Receives EPO with HD (5) Chronic pain: Plan: Continue oxycodone 15 mg Q8 H prn for chronic pain (6) Obesity: Plan: BMI 30.6, diet and exercise encouraged DVT PROPHYLAXIS TEDs/SCDs Admission and Anticipated Discharge Date Admission Date: December 02, 2022 Supervising Physician Co-Signing Physician Notes Attending addendum: Patient was seen and examined in medical floor She is a status post dialysis and has been feeling much better Her left leg erysipelas is almost gone Denies any fever and or chills, no pain, nausea or vomiting On examination Sitting on a chair without any acute distress Hemodynamically stable-no tachycardia and is afebrile Chest-minimal crackles at the bases Heart-S1-S2, regular Abdomen-benign Extremities-trace edema bilaterally Erysipelas involving the left lower extremity is almost resolved Her labs and imaging studies reviewed Cellulitis/erysipelas involving the left lower extremity is improved a lot We will continue current antibiotic and changed to oral Augmentin on discharge Continue hemodialysis Agree with assessment and plan as outlined above by Coco pandey Subjective Follow-up for left lower extremity cellulitis. Patient seen and examined. Left leg redness improving. Patient reports she is feeling well. Denies chest pain and shortness of breath. No abdominal pain or nausea. Scheduled for dialysis this AM. Review of Systems Review of Systems: ROS per HPI, all other systems reviewed and negative Physical Exam Constitutional: WD/WN, vitals as above no acute distress Respiratory: normal respiratory effort, lungs clear to auscultation Cardiovascular: Rate/Rhythm: regular rate and regular rhythm Vessels: normal peripheral pulses Extremities: no edema Gastrointestinal (Abdomen): Percussion/Palpation: abdomen soft; abdomen nontender Skin: Erythema noted to LLE extending from the ankle up to the thigh however it remains within previously outlined area Neurologic: no focal motor deficits Psychiatric: A+Ox3, euthymic affect Results & Data Results & Data ([facility]) Vital Signs (Past 12 Hours) Vital Signs Temp Pulse Pulse Pulse Resp BP BP 12/03/22 13:47 36.4 C L 88 126/72 12/03/22 13:30 82 118/54 L 12/03/22 13:00 84 122/58 L 12/03/22 12:30 86 122/54 L 12/03/22 12:00 84 118/59 L 12/03/22 11:30 88 126/60 12/03/22 11:00 85 112/55 L 12/03/22 10:30 90 95/64 L 12/03/22 10:00 88 120/64 12/03/22 09:53 88 133/63 12/03/22 09:42 36.5 C 90 12/03/22 08:37 36.5 C 86 18 123/72 Pulse Ox O2 Del Method 12/03/22 13:47 12/03/22 13:30 12/03/22 13:00 12/03/22 12:30 12/03/22 12:00 12/03/22 11:30 12/03/22 11:00 12/03/22 10:30 12/03/22 10:00 12/03/22 09:53 12/03/22 09:42 12/03/22 08:37 98 Room Air Laboratory Results Short CBC 12/03/22 Range/Units 09:43 WBC 9.12 (4.8-10.8) K/ul Hgb 8.1 L (12.0-16.0) g/dl Hct 25.3 L (37.0-47.0) % Plt Count 264 (130-400) K/uL BMP 12/03/22 09:43 Sodium 139 Potassium 4.6 Chloride 101 Carbon Dioxide 26 BUN 58 H Creatinine 6.52 H* D Glucose 137 H Calcium 9.2 (4) Anemia Anemia type: unspecified type Qualified Code(s): D64.9 - Anemia, unspecified
[2022-12-03] MEDS: CINACALCET HCL 30 MG TAB PO SCH (14:33)
[2022-12-03] MEDS: CHOLECALCIFEROL 1,000 UNITS 25 MCG TAB PO SCH (14:33)
[2022-12-03] MEDS: CITALOPRAM 20 MG TAB PO SCH (14:34)
[2022-12-03] MEDS: GABAPENTIN 100 MG CAP PO SCH ×3 (14:34→14:38)
[2022-12-03] MEDS: PIPERACILLIN/TAZOBACTAM 3.375 GM in DEXTROSE 5% 100 ML IV SCH (14:42)
[2022-12-03] MEDS: diphenhydrAMINE Capsule 25 MG CAP PO PRN (17:42)
[2022-12-03] MEDS: oxyCODONE HCL IR 5 MG TAB (IMMEDIATE RELEASE) PO PRN (20:30)
[2022-12-03] MEDS: rOPINIRole HCL 2 MG TABLET PO SCH (21:13)
[2022-12-04] MEDS: PIPERACILLIN/TAZOBACTAM 3.375 GM in DEXTROSE 5% 100 ML IV SCH ×2 (00:33→12:23)
--- NOTE | 2022-12-04 04:31 | Electrocardiogram Report ---
Test Reason : Blood Pressure : / mmHG Vent. Rate : 099 BPM Atrial Rate : 099 BPM P-R Int : 156 ms QRS Dur : 076 ms QT Int : 344 ms P-R-T Axes : 030 000 026 degrees QTc Int : 441 ms Normal sinus rhythm Cannot rule out Inferior infarct , age undetermined Abnormal ECG When compared with ECG of 11-JUL-2021 16:16, Minimal criteria for Anterior infarct are no longer Present Confirmed by Reece Dalal ([id number]) on 12/04/2022 4:31:21 AM Referred By: REFERRED SELF Confirmed By:Reece Dalal
[2022-12-04] MEDS: CHOLECALCIFEROL 1,000 UNITS 25 MCG TAB PO SCH (08:45)
[2022-12-04] MEDS: ASPIRIN 81 MG ECTAB PO SCH (08:45)
[2022-12-04] MEDS: FLUTICASONE/VILANTEROL 100/25MCG 14 PUFFS/INHALER INH SCH (08:46)
[2022-12-04] MEDS: CITALOPRAM 20 MG TAB PO SCH (08:46)
[2022-12-04] MEDS: CINACALCET HCL 30 MG TAB PO SCH (08:46)
[2022-12-04] MEDS: GABAPENTIN 100 MG CAP PO SCH (08:47)
[2022-12-04] MEDS: NEPHROCAPS PO SCH (08:48)
[2022-12-04] MEDS: INSULIN ASPART PER UNIT SC SCH ×2 (09:15→12:31)
[2022-12-04 09:34] LABS: Hematocrit (blood only) 27.7 % (37.0-47.0); Hemoglobin 8.5 g/dl (12.0-16.0); Mean Corpuscular Hemoglobin 32.1 pg (25.0-34.0); Mean Corpuscular Hgb Conc 30.7 g/dL (32.0-36.0); Mean Corpuscular Volume 104.5 fL (80.0-100.0); Mean Platelet Volume 9.3 fL (9.4-12.4); Platelet Count 270 K/uL (130-400); RDW Coefficient of Variation 13.3 % (11.5-14.5); RDW Standard Deviation 50.3 fL (36.4-46.3); Red Blood Count 2.65 M/uL (4.20-5.40); White Blood Count 9.07 K/ul (4.8-10.8)
[2022-12-04 10:51] LABS: BUN Creatinine Ratio 7.1 (10-20); Creatinine Clr Calc Pharmacy 12.6 ml/min; Est GFR (African American) 11.7 ml/min; Est GFR (Non-African American) 10.1 ml/min; Potassium 4.1 mmol/L (3.5-5.1)
--- NOTE | 2022-12-04 16:33 | Discharge Summary ---
Date of Service December 04, 2022 Admission HPI Per Admitting Provider This is a 67 yo F with PMHx of ESRD on HD, DM II, anemia of chronic disease, dyslipidemia, obesity, Vit D deficiency, hx of PE, chronic anemia due renal disease, chronic pain on narcotics who presents with left lower extremity redness and swelling. Her symptoms began yesterday late morning with some swelling around her left lower extremity, then progressed to being more red. She denies any specific pain associated with it and has been able to walk without difficulty. She denies sweats or chills, however awoke this morning and thought that maybe she had had a fever overnight. She did not take her temperature. Patient presents to the ER with her . She has before had a cellulitis in the right lower extremity where she required antibiotic treatment. Her regularly scheduled dialysis is Friday, last received on Friday. Patient follows with Dr. Kumar as an outpatient with nephrology. She denies any other illness like symptoms. She did not take any of her routinely scheduled medications today. Admission Exam Per Admitting Provider General: awake, alert, no apparent distress, Obese with BMI of 30.6 Head: Normocephalic, atraumatic ENT: PERRL, EOMI, no pharyngeal exudate, mucous membranes moist Chest: Clear to auscultation, on room air, no adventitious breath sounds Cardiac: Regular rate and rhythm, no murmur, no JVD, normal peripheral pulses, good capillary refill Abdominal: NABS x 4 quadrants, soft, nondistended, nontender to palpation, no rebound or guarding Extremities: AVF with + bruit, otherwise normal inspection, no peripheral edema or erythema, calfs nontender to palpation Psych: Normal mood and affect Skin: LLE with erythema, no edema, spares the ankle and encompasses the majority of the calf muscle, with anterior erythematous streaking going up the mid and anterior thigh. Outlined with skin marker. Neuro: AAO x 3, strength intact bilaterally and rated 5/5, no motor deficits, speech is clear, no peripheral sensory deficits Principal Diagnosis Left leg cellulitis Discharge Exam Constitutional WD/WN, vitals as above no acute distress Respiratory normal respiratory effort, lungs clear to auscultation Cardiovascular Rate/Rhythm: regular rate and regular rhythm Vessels: normal peripheral pulses Extremities: no edema Gastrointestinal (Abdomen) Percussion/Palpation: abdomen soft; abdomen nontender Skin Left lower extremity redness markedly improved, now only minimally present Neurologic no focal motor deficits Psychiatric A+Ox3, euthymic affect Discharge Data Allergies Allergy/AdvReac Type Severity Reaction Status Date / Time nitrofurantoin Allergy Intermediate Hives Verified 11/30/21 06:55 Sulfa (Sulfonamide Allergy Intermediate hives Verified 11/30/21 06:55 Antibiotics) cefazolin [From Ancef] Allergy Unknown Verified 11/30/21 06:55 pantoprazole [From Protonix] Allergy Unknown Verified 11/30/21 06:55 methylprednisolone AdvReac Intermediate SWEATING , Verified 11/30/21 06:55 [From Medrol] HEART RACING Consultations 12/02/22 16:36 Consult Nephrology Routine Ordered Studies Laboratory Results WBC 9.07 K/ul (4.8-10.8) 12/04/22 09:08 RBC 2.65 M/uL (4.20-5.40) L 12/04/22 09:08 Hgb 8.5 g/dl (12.0-16.0) L 12/04/22 09:08 Hct 27.7 % (37.0-47.0) L 12/04/22 09:08 MCV 104.5 fL (80.0-100.0) H 12/04/22 09:08 MCH 32.1 pg (25.0-34.0) 12/04/22 09:08 MCHC 30.7 g/dL (32.0-36.0) L 12/04/22 09:08 RDW Std Deviation 50.3 fL (36.4-46.3) H 12/04/22 09:08 RDW Coeff of Erum 13.3 % (11.5-14.5) 12/04/22 09:08 Plt Count 270 K/uL (130-400) 12/04/22 09:08 MPV 9.3 fL (9.4-12.4) L 12/04/22 09:08 Immature Gran % (Auto) 1.3 % 12/02/22 13:03 Neut % (Auto) 75.2 % 12/02/22 13:03 Lymph % (Auto) 10.5 % 12/02/22 13:03 [place] % (Auto) 9.2 % 12/02/22 13:03 Eos % (Auto) 3.1 % 12/02/22 13:03 Baso % (Auto) 0.7 % 12/02/22 13:03 Neut # (Auto) 7.89 K/uL (1.40-6.50) H 12/02/22 13:03 Lymph # (Auto) 1.10 K/uL (1.2-3.4) L 12/02/22 13:03 [place] # (Auto) 0.97 K/uL (0.11-0.59) H 12/02/22 13:03 Eos # (Auto) 0.32 K/uL (0-0.50) 12/02/22 13:03 Baso # (Auto) 0.07 K/uL (0-0.2) 12/02/22 13:03 Immature Gran # (Auto) 0.14 K/uL (0.01-0.20) 12/02/22 13:03 ESR 50 mm/hr (0-30) H 12/02/22 13:03 PT 10.5 Seconds (9.0-12.0) 12/02/22 13:03 INR 1.0 (0.9-1.1) 12/02/22 13:03 APTT 27.1 Seconds (21.0-31.0) 12/02/22 13:03 PTT Ratio 1.0 12/02/22 13:03 Sodium 139 mmol/L (136-145) 12/04/22 09:08 Potassium 4.1 mmol/L (3.5-5.1) 12/04/22 09:08 Chloride 101 mmol/L (98-107) 12/04/22 09:08 Carbon Dioxide 30 mmol/L (21-32) 12/04/22 09:08 Anion Gap 8 (3-11) 12/04/22 09:08 BUN 30 mg/dl (6-23) H D 12/04/22 09:08 Creatinine 4.25 mg/dl (0.6-1.2) H D 12/04/22 09:08 Est Cr Clr Drug Dosing 12.6 ml/min 12/04/22 09:08 Est GFR ( Amer) 11.7 ml/min 12/04/22 09:08 Est GFR (Non-Af Amer) 10.1 ml/min 12/04/22 09:08 BUN/Creatinine Ratio 7.1 (10-20) L 12/04/22 09:08 Glucose 106 mg/dl (70-99(Fasting)) H 12/04/22 09:08 POC Glucose 118 mg/dl (70-99) H 12/04/22 11:51 Estimat Average Glucose 97 mg/dl 12/03/22 09:43 Hemoglobin A1c 5.0 % (4.5-5.6) 12/03/22 09:43 Calcium 9.0 mg/dl (8.5-10.1) 12/04/22 09:08 Phosphorus 7.1 mg/dl (2.5-4.9) H 12/03/22 09:43 Magnesium 2.3 mg/dl (1.7-2.4) 12/03/22 09:43 Total Bilirubin 0.3 mg/dl (0.2-1.0) 12/02/22 13:03 AST 14 U/L (13-39) 12/02/22 13:03 ALT 10 U/L (7-52) 12/02/22 13:03 Alkaline Phosphatase 57 U/L (34-104) 12/02/22 13:03 Troponin I High Sens 14.0 pg/ml (0-14) 12/02/22 13:03 C-Reactive Protein 15.40 mg/dl (0-0.5) H 12/02/22 13:03 Total Protein 6.7 gm/dl (6.0-8.3) 12/02/22 13:03 Albumin 3.1 gm/dl (3.4-5.0) L 12/02/22 13:03 Globulin 3.6 gm/dl (2.5-4.0) 12/02/22 13:03 Albumin/Globulin Ratio 0.9 (0.9-2) 12/02/22 13:03 Procalcitonin 1.11 ng/ml (0-0.5) H 12/02/22 13:03 Nasal Screen MRSA (PCR) Negative (Negative) 12/02/22 19:45 SARS-CoV-2, RNA, NAAT NEGATIVE (NEGATIVE) 12/02/22 16:38 Impressions Chest X-Ray 12/02/22 12:49 XR chest 1V portable HISTORY: 67 years-old Female Fever acute fever COMPARISON: Chest radiograph 07/17/2021 TECHNIQUE: AP view of the chest FINDINGS: Cardiac silhouette is enlarged. Atherosclerosis of the aorta. No pneumothorax, pleural effusion, airspace consolidation or pulmonary edema. Degenerative changes of the shoulders and spine. Surgical clips project over the right upper extremity. IMPRESSION: Cardiomegaly without acute process. ACT 112: Negative or not required by law. The above report was generated using voice recognition software. It may contain grammatical, syntax or spelling errors. Electronically signed by: Portillo Thornton M.D. 12/02/2022 1:23 PM Venous Doppler Study 12/02/22 12:49 LEFT LOWER EXTREMITY VENOUS DOPPLER CLINICAL HISTORY: Left lower extremity pain. COMPARISON STUDY: Bilateral lower extremity venous Doppler ultrasound December 31, 2018. TECHNIQUE: Sonography of the deep venous system of the left lower extremity was performed. Compression and augmentation were evaluated. FINDINGS: The left common femoral, superficial femoral and popliteal veins were compressible. Augmentation was normal. Flow was shown within the deep calf vessels. IMPRESSION: No evidence of deep venous thrombus within the left lower extremity. ACT 112: Negative or not required by law. Electronically signed by: Sergo Newell M.D. 12/02/2022 4:35 PM Hospital Course (1) Cellulitis of left leg: This is a 67 yo F with PMHx of ESRD on HD, DM II, anemia of chronic disease, dyslipidemia, obesity, Vit D deficiency, hx of PE, chronic anemia due renal disease, chronic pain on narcotics who presented with left lower extremity redness and swelling. Did not appear septic, remained afebrile through admission. On admission, ESR 50, CRP 15.4, Procal 1.1, WBC 10K Blood cultures NGTD Patient improved on IV Zosyn and was discharged on renally dosed Augmentin to complete a 7-day course. (2) End stage renal disease on dialysis: Receives dialysis Friday, , Friday Nephrology consult for HD orders Received routine HD treatment on 12/03 (3) DM type 2 (diabetes mellitus, type 2): Hgb A1c 5.0 Typically managed with Trulicity Received NovoLog per protocol while hospitalized (4) Anemia: History of chronic anemia due to CKD Hgb 8.1 Receives EPO with HD (5) Chronic pain: Continue oxycodone 15 mg Q8 H prn for chronic pain (6) Obesity: BMI 30.6, diet and exercise encouraged Total Time Total Time Spent Total Time Spent (In Minutes): 25 Discharge Plan Discharge Items Patient Disposition: Home - Self-Care Reason For Visit: Left Leg Redness, Swelling Discharge Diagnosis: Left leg cellulitis (skin infection) Activity: Resume your previous activity Non-emergency contact: Primary Care Provider Call non-emergency contact if: you have any medication questions, your symptoms worsen, your pain is not controlled and you have a fever Follow-up/Referrals: Willie Epstein MD [Primary Care Provider] - (Date & Time 12/09/2022 10:00 AM Provider Willie Epstein MD Department Family Practice [facility] ) Diet: Other - See Diet Comment Diet Comment: Renal Diet Addtl Attending Provider Instructions: You came to the hospital for evaluation of left leg redness and swelling. Found to have cellulitis (skin infection) of the left leg. You were treated with IV antibiotics and will be discharged on amoxicillin/clavulanate (Augmentin) 500mg/150mg daily for the next 5 days with dinner, take first dose this evening 12/04 -- on dialysis days, take antibiotic AFTER dialysis A follow up appointment has been made with your PCP. Continue to take all other medications as prescribed. It was a pleasure taking care of you. If you need to reach a member of the [facility] hospitalist team at [facility], please call [phone]. LORETTA Naqvi Pending Studies at Discharge: No Stand-Alone Forms: My [facility], Smoking Cessation Medications and DC Order Prescriptions: New amoxicillin-pot clavulanate [Augmentin] 500-125 mg tablet 1 tab PO .daily with dinner Qty: 5 0RF Rx Instructions: first dose 12/04 with dinner Continued polyethylene glycol 3350 [Miralax] 17 gram Powder In Packet 17 g PO DAILY PRN (Reason: Constipation) fluticasone furoate-vilanterol [Breo Ellipta] 100-25 mcg/dose Blister With Device 1 inh INHALATION QAM aspirin 81 mg Tablet,Chewable 81 mg PO QAM cholecalciferol (vitamin D3) [Vitamin D3] 1,000 unit Tablet 1,000 unit PO QAM gabapentin 100 mg capsule 100 mg PO UD Rx Instructions: 100mg daily plus additional dose after dialysis days Velphoro 500 mg tablet,chewable 1,000 mg PO TIDM Rx Instructions: IS TO TAKE 2 TABS TID, THINKS TABS ARE 500 MG oxycodone 15 mg tablet 15 mg PO Q8 PRN (Reason: Pain) citalopram 20 mg tablet 20 mg PO QAM ropinirole 0.5 mg tablet 2 mg PO HS Nephro-Federico 0.8 mg tablet 1 tab PO QAM albuterol sulfate 90 mcg/actuation HFA aerosol inhaler 2 puff INHALATION Q4 PRN (Reason: Wheezing) cinacalcet 60 mg tablet 60 mg PO QAM Trulicity 0.75 mg/0.5 mL pen injector 0.75 mg SUBCUT WK Rx Instructions: Takes on Friday fluticasone propionate [Flonase Allergy Relief] 50 mcg/actuation [place] venkatesh 1 spray INTRANASAL DAILY PRN (Reason: Allergy Symptoms) Discharge Orders: Discharge Order (Routine); Ordered 12/04/22 Ordered By: Coco Jenkins/Other Patient Handouts: Cellulitis Dc Admission Data Admit Date/Time: 12/02/22 16:36 Attending Provider: Vannesa Pandey Admit Provider: Dena Renae I. Primary Care Provider: Willie Epstein Other Providers: Danette Perez ; Dena Renae I. Other Interventions: Discharge Summary Assessment (RN) Last Done: 12/04/22 17:08 Supervising Physician Co-Signing Physician Notes Attending addendum: The patient was seen and examined in medical floor Her leg cellulitis is almost gone Denies any symptoms On examination Sitting on a chair without any acute distress Hemodynamically stable Chestclear to auscultate bilaterally HeartS1, S2 regular Abdomenbenign Extremitiesminimal redness involving the left lower extremity and there is trace bilateral edema Labs and medications reviewed Had left leg cellulitis-improved a lot End-stage renal disease on hemodialysis Medically stable to be discharged Review with assessment and plan as outlined above by Coco pandey
[2022-12-04] MEDS: oxyCODONE HCL IR 5 MG TAB (IMMEDIATE RELEASE) PO PRN (16:34)
== END 2022-12-04 18:05 | disposition home or self-care (01) | DRG 602 ==
LOC: ED 12:11 → 3W 16:36 → SUATTDRO 16:36 → 3W 18:13

== ENCOUNTER 2024-02-26 19:28 | Inpatient (IN) ==
[2024-02-26 20:16] LABS: Basophils # (auto) 0.06 K/uL (0.00-0.20); Basophils % (auto) 0.6 %; Eosinophils # (auto) 0.12 K/uL (0.00-0.50); Eosinophils % (auto) 1.2 %; Hematocrit (blood only) 23.5 % (37.0-47.0); Hemoglobin 7.3 g/dl (12.0-16.0); Immature Granulocytes # (auto) 0.06 K/uL (0.01-0.20); Immature Granulocytes % (auto) 0.6 %; Lymphocytes # (auto) 0.57 K/uL (1.20-3.40); Lymphocytes % (auto) 5.9 %; Mean Corpuscular Hemoglobin 29.9 pg (25.0-34.0); Mean Corpuscular Hgb Conc 31.1 g/dL (32.0-36.0); Mean Corpuscular Volume 96.3 fL (80.0-100.0); Mean Platelet Volume 9.4 fL (9.4-12.4); Monocytes # (auto) 0.41 K/uL (0.11-0.59); Monocytes % (auto) 4.2 %; Neutrophils # (auto) 8.51 K/uL (1.40-6.50); Neutrophils % (auto) 87.5 %; Platelet Count 369 K/uL (130-400); RDW Coefficient of Variation 15.2 % (11.5-14.5); RDW Standard Deviation 52.8 fL (36.4-46.3); Red Blood Count 2.44 M/uL (4.20-5.40); White Blood Count 9.73 K/ul (4.8-10.8)
--- NOTE | 2024-02-26 20:24 | Emergency Department Note ---
Impression & Plan Acute GI bleeding, Symptomatic anemia, Chills ED Provider Note NAME: JAIMEE VENEGAS AGE: 69 SEX: F : 1955 ARRIVES VIA: Walk-In INFORMANT: Patient ED PROVIDER(S): Drew Tenorio DO CHIEF COMPLAINT: Dysuria, urgency and frequency HPI: Patient is a 69-year-old female with a past medical history of end-stage renal disease on dialysis Friday, , Friday who underwent a full course of dialysis today. She presents to the ER for dysuria, urgency and frequency which started today. She admits to diffuse shaking, chills and sweating. She notes this feels like her previous UTIs. She denies any headache or change in vision. No chest pain or shortness of breath. No back pain. No belly pain. No other exacerbating or remitting factors. She has not missed any doses dialysis. She notes that she makes urine regularly. ADDITIONAL HISTORY OBTAINED: Per HPI Chronic Medical/Social Conditions Affecting Care: Per HPI PAST MEDICAL HISTORY:See Below PAST SURGICAL HISTORY:See Below FAMILY HISTORY:See Below SOCIAL HISTORY:See Below HOME MEDICATIONS:See Below ALLERGIES:See Below VITALS:See Below PHYSICAL EXAMINATION: GENERAL: Sitting up in bed, alert, well appearing, well nourished, no distress, non-toxic EYE EXAM: normal conjunctiva. OROPHARYNX:mucous membranes are moist NECK: supple, no nuchal rigidity, no adenopathy, non-tender LUNGS: Clear to auscultation. Normal chest wall mechanics RECtAL: Hem + HEART: no murmurs, S1 normal and S2 normal ABDOMEN: abdomen soft, non-tender, normo-active bowel sounds, no masses, no rebound or guarding. UPPER EXTREMITIES: Positive thrill and bruit in right upper arm LOWER EXTREMITIES: No pitting edema. NEURO EXAM: Normal sensorium, cranial nerves II-XII grossly intact, normal speech, no gross weakness of arms, no gross weakness of legs. MEDICAL DECISION MAKING: Patient is a 69-year-old female who presents ER for above-stated complaint. IV was established medicals obtained. Labs show no significant leukocytosis. Anemia at 7.3 down from 11 was fairly significant. BMP with a creatinine of 2.2 with a patient on dialysis. Calcium was mildly low at 7.9. LFTs bilirubin was unremarkable. UA had no white cells to suggest infection but she did have urinary symptoms consequently she was covered with IV Rocephin. Blood cultures were drawn. She initially declined rectal but eventually was agreeable and this was performed and was heme positive. She does not take any blood thinners. With the drop in hemoglobin she was typed and crossed. She was discussed with Dr. Villaseñor approved for further evaluation management and treatment. Protonix was not given due to allergies Consults/Care Managements Discussions: Per MDM Triage Nursing notes reviewed. Limited review of prior medical records performed Vital Signs: reviewed and remarkable for no significant abnormalities Differential diagnosis: Differential diagnoses includes but is not limited to gastritis, peptic ulcer disease, GERD, gallbladder disease, pancreatitis, small bowel obstruction, appendicitis, diverticulitis, hernia, urinary tract infection, torsion, perforation, trauma, infectious. ER treatment provided: See below Diagnostics interpreted by me include EKG and cardiac monitoring as listed below: -Cardiac Monitoring: An order was placed for continuous cardiac monitoring. The monitor shows a rate of 90 with sinus rhythm. -ECG: none -Laboratory studies:Interpreted by me as stated above in MDM and shown below. Imaging studies: Xrays: As interpreted by me: Portable AP upright 1 view the chest shows opacities in the lower lung gerber fairly consistent with previous CTs show: none Procedures:none Critical Care: None Past Med/Surg History Medical History History of blood transfusion 2022 Pulmonary hypertension mild on 2020 echo Sleep apnea severe-not currently treated per pt Moderate aortic stenosis (MELCHOR 0.8 cm2, mean PG 20 mmHg) Diabetes mellitus, type 2 Ambulatory dysfunction walker-dependent Chronic pain Obesity Limb alert care status RUE AVF Osteoporosis Anxiety and depression RLS (restless legs syndrome) HLD (hyperlipidemia) HTN (hypertension) Psoriasis History of renal calculi History of DVT (deep vein thrombosis) RLE, 10+ years ago, post op AC therapy x 3-6 months after > d/c'd + no issues since History of pulmonary embolus (PE) 10+ years ago, post op End stage renal disease on dialysis 2/2 DM [facility]ues[facility] Surgical History Hx of bilateral hip replacements H/O laparoscopy History of cystoscopy S/P arteriovenous (AV) fistula repair (~2020) right History of tooth extraction History of x 2 S/P arteriovenous (AV) fistula creation x 2 BL (non functioning on left)--left still in place not working History of colonoscopy H/O partial resection of colon (2012) For diverticulitis H/O inguinal hernia repair left S/P cholecystectomy Family History Mother Diabetes Sister Diabetes Other No family history of adverse response to anesthesia Social History Smoking Status: Never smoker Second Hand Exposure: No; Do You Dip or Chew Tobacco: No; Hx Alcohol Use: No Hx Substance Use: No Preferred Language: [place] Communication Ability: Effective 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: No Beliefs That Will Affect Care: None marital status: Current Living Situation: Spouse Current Living Situation Comment: Lives with , daughter and grandson How many Children do You have: 3 Feels Safe at Home: Yes Assistive Devices: Denture - Upper, Denture - Lower and Walker Allergies Allergies Allergy/AdvReac Type Severity Reaction Status Date / Time Sulfa (Sulfonamide Allergy Severe Face/lips/tongue Verified 01/02/24 07:08 Antibiotics) edema nitrofurantoin Allergy Intermediate Hives Verified 01/02/24 07:08 cefazolin [From Ancef] Allergy Unknown Unknown Verified 02/26/24 22:39 pantoprazole [From Protonix] Allergy Unknown Unknown Verified 01/02/24 07:08 methylprednisolone AdvReac Intermediate Sweating, Verified 01/02/24 07:08 [From Medrol] heart racing Home Meds Home Medications Medication Instructions Recorded Confirmed aspirin 81 mg chewable tablet 81 mg PO QAM 12/31/18 01/02/24 gabapentin 100 mg capsule 100 mg PO DIRECTED 12/31/18 01/02/24 albuterol sulfate 90 mcg/actuation 2 puff inhalation Q6H PRN Wheezing 04/04/21 01/02/24 aerosol inhaler citalopram 20 mg tablet 20 mg PO QAM 04/04/21 01/02/24 oxycodone 15 mg tablet 15 mg PO Q8 PRN Pain 04/04/21 01/02/24 dulaglutide 0.75 mg/0.5 mL 0.75 mg subcut WK 12/02/22 01/02/24 subcutaneous pen injector (Trulicity) betamethasone dipropionate 0.05 % 1 applic topical BID PRN 11/15/23 01/02/24 topical ointment PSORIASIS/ITCHING cinacalcet 90 mg tablet 90 mg PO QAM 11/15/23 01/02/24 lanthanum 750 mg chewable tablet 750 mg PO TID 11/15/23 01/02/24 ropinirole 2 mg tablet 2 mg PO QPM 11/15/23 01/02/24 simvastatin 20 mg tablet 20 mg PO HS 11/15/23 01/02/24 vitamin B complex-vitamin C-folic 1 tab PO QAM 11/15/23 01/02/24 acid 0.8 mg tablet (Anais-Federico) Previous Rx's Medication Instructions Recorded Saccharomyces boulardii 250 mg 250 mg PO BID #20 caps 01/18/24 capsule (Florastor) amoxicillin 500 mg tablet 500 mg PO BID #14 tabs 01/18/24 Results & Data (ED) Vital Signs Vital Signs - 24 hr 02/26/24 19:38 02/26/24 19:43 02/26/24 22:00 Temperature 36.0 C L Temperature Source Temporal Artery Scan Pulse Rate 97 H Respiratory Rate 18 Respiratory Effort / Characteristics Non-Labored Spontaneous Non-Labored Non-Labored Respiratory Depth Normal Normal Normal Respiratory Pattern Regular Blood Pressure 141/70 H Blood Pressure Mean 93 Pulse Oximetry 93 Oxygen Delivery Method Room Air Sepsis Recent Fever Within 48 Hours No Sepsis New/Unexplained Change in Mental Status N/A Sepsis Action Taken by Nursing No Action Required 02/26/24 22:22 Temperature Temperature Source Pulse Rate 87 Respiratory Rate Respiratory Effort / Characteristics Respiratory Depth Respiratory Pattern Blood Pressure Blood Pressure Mean Pulse Oximetry Oxygen Delivery Method Sepsis Recent Fever Within 48 Hours Sepsis New/Unexplained Change in Mental Status Sepsis Action Taken by Nursing Laboratory Data 02/26/24 19:55 02/26/24 19:55 Lab Results 02/26/24 02/26/24 Range/Units 19:55 21:23 WBC 9.73 (4.8-10.8) K/ul RBC 2.44 L (4.20-5.40) M/uL Hgb 7.3 L (12.0-16.0) g/dl Hct 23.5 L (37.0-47.0) % MCV 96.3 (80.0-100.0) fL MCH 29.9 (25.0-34.0) pg MCHC 31.1 L (32.0-36.0) g/dL RDW Std Deviation 52.8 H (36.4-46.3) fL RDW Coeff of Erum 15.2 H (11.5-14.5) % Plt Count 369 (130-400) K/uL MPV 9.4 (9.4-12.4) fL Immature Gran % (Auto) 0.6 % Neut % (Auto) 87.5 % Lymph % (Auto) 5.9 % [place] % (Auto) 4.2 % Eos % (Auto) 1.2 % Baso % (Auto) 0.6 % Neut # (Auto) 8.51 H (1.40-6.50) K/uL Lymph # (Auto) 0.57 L (1.20-3.40) K/uL [place] # (Auto) 0.41 (0.11-0.59) K/uL Eos # (Auto) 0.12 (0.00-0.50) K/uL Baso # (Auto) 0.06 (0.00-0.20) K/uL Immature Gran # (Auto) 0.06 (0.01-0.20) K/uL Polychromasia 1+ Sodium 138 (136-145) mmol/L Potassium 3.8 (3.5-5.1) mmol/L Chloride 99 (98-107) mmol/L Carbon Dioxide 26 (21-32) mmol/L Anion Gap 13 H (3-11) BUN 37 H (6-23) mg/dl Creatinine 2.27 H (0.6-1.2) mg/dl Est Cr Clr Drug Dosing Not Reportable Est GFR ( Amer) 24.5 ml/min Est GFR (Non-Af Amer) 21.2 ml/min BUN/Creatinine Ratio 16.3 (10-20) Glucose 164 H (70-99(Fasting)) mg/dl Calcium 7.9 L (8.6-10.3) mg/dl Total Bilirubin 0.4 (0.2-1.0) mg/dl AST 16 (13-39) U/L ALT 13 (7-52) U/L Alkaline Phosphatase 114 H (34-104) U/L Total Protein 7.4 (6.0-8.3) gm/dl Albumin 3.1 L (3.4-5.0) gm/dl Globulin 4.3 H (2.5-4.0) gm/dl Albumin/Globulin Ratio 0.7 L (0.9-2) Urine Color Yellow Urine Appearance Cloudy A (Clear) Urine pH >= 9.0 H (4.5-7.5) Ur Specific [place] 1.010 (1.000-1.030) Urine Protein 2+ H (Negative) Urine Glucose (UA) 1+ H (Negative) Urine Ketones Negative (Negative) Urine Blood 1+ H (Negative) Urine Nitrite Negative (Negative) Urine Bilirubin Negative (Negative) Urine Urobilinogen Negative (Negative) Ur Leukocyte Esterase Trace H (Negative) Urine WBC (Auto) 0-5 (0-5) /hpf Urine RBC (Auto) 6-10 H (0-2) /hpf U Hyaline Cast (Auto) 3-5 H (0-2) /lpf U Epithel Cells (Auto) >20 H (0-2) /hpf Urine Bacteria (Auto) None Seen (None Seen) Administered Medications Discontinued Medications Sodium Chloride (Nss) 250 mls @ 999 mls/hr IV .Q16M ONE Stop: 02/26/24 20:35 Last Infusion: 02/26/24 20:58 Dose: Infused Documented By: Admin: 02/26/24 20:29 Dose: 999 mls/hr Documented By: [facility] Ceftriaxone Sodium (Rocephin) 2,000 mg in 50 mls @ 100 mls/hr IV NOW STA Stop: 02/26/24 23:04 Last Admin: 02/26/24 23:13 Dose: 100 mls/hr Documented By: NAW Discharge Plan Visit Data Chief Complaint: Urinary Symptoms Stated Complaint: UTI, SHAKING AND SWEATING ED Provider: Drew Tenorio Discharge Problem: Acute GI bleeding, Symptomatic anemia, Chills Patient Disposition: Home - Self-Care Forms Stand Alone Forms: My [facility], Important Visit Information Prescriptions Prescriptions: No Action aspirin 81 mg Tablet,Chewable 81 mg PO QAM gabapentin 100 mg capsule 100 mg PO DIRECTED Rx Instructions: 100mg daily plus additional dose 100 mg after dialysis days oxycodone 15 mg tablet 15 mg PO Q8 PRN (Reason: Pain) citalopram 20 mg tablet 20 mg PO QAM albuterol sulfate 90 mcg/actuation HFA aerosol inhaler 2 puff INHALATION Q6H PRN (Reason: Wheezing) Trulicity 0.75 mg/0.5 mL pen injector 0.75 mg SUBCUT WK Rx Instructions: Takes on Friday ropinirole 2 mg tablet 2 mg PO QPM simvastatin 20 mg tablet 20 mg PO HS Anais-Federico 0.8 mg tablet 1 tab PO QAM betamethasone dipropionate 0.05 % Ointment 1 applic TOPICAL BID PRN (Reason: PSORIASIS/ITCHING) cinacalcet 90 mg tablet 90 mg PO QAM lanthanum 750 mg tablet,chewable 750 mg PO TID amoxicillin 500 mg tablet 500 mg PO BID Qty: 14 0RF Saccharomyces boulardii [Florastor] 250 mg capsule 250 mg PO BID Qty: 20 0RF Rx Instructions: swallow whole Referrals Referrals: Willie Epstein MD [Primary Care Provider] -
[2024-02-26] MEDS: SODIUM CHLORIDE 0.9% 250 ML IV ONE (20:29)
[2024-02-26 20:35] LABS: Polychromasia 1+
[2024-02-26 20:38] LABS: Alanine Aminotransferase 13 U/L (7-52); Albumin Globulin Ratio 0.7 (0.9-2); Albumin Level 3.1 gm/dl (3.4-5.0); Alkaline Phosphatase 114 U/L (34-104); Anion Gap 13 (3-11); Aspartate Aminotransferase 16 U/L (13-39); BUN Creatinine Ratio 16.3 (10-20); Bilirubin,Total 0.4 mg/dl (0.2-1.0); Blood Urea Nitrogen 37 mg/dl (6-23); Calcium 7.9 mg/dl (8.6-10.3); Carbon Dioxide 26 mmol/L (21-32); Chloride 99 mmol/L (98-107); Est GFR (African American) 24.5 ml/min; Est GFR (Non-African American) 21.2 ml/min; Globulin 4.3 gm/dl (2.5-4.0); Glucose 164 mg/dl (70-99(Fasting)); Potassium 3.8 mmol/L (3.5-5.1); Sodium 138 mmol/L (136-145); Total Protein 7.4 gm/dl (6.0-8.3)
[2024-02-26 21:52] LABS: Appearance Urine Cloudy (Clear); Bacteria Urine Automated None Seen (None Seen); Bilirubin Urine Negative (Negative); Blood Urine 1+ (Negative); Color Urine Yellow; Epithelial Cell Urine Auto >20 /hpf (0-2); Glucose Urine UA 1+ (Negative); Ketones Urine Negative (Negative); Leukocyte Esterase Urine Trace (Negative); Nitrite Urine Negative (Negative); Protein Urine 2+ (Negative); Urobilinogen Urine Negative (Negative); WBC Urine Automated 0-5 /hpf (0-5); pH Urine >= 9.0 (4.5-7.5)
[2024-02-26] MEDS: cefTRIAXone SODIUM 2,000 MG/50 ML BAG IV STA (23:13)
[2024-02-26] MEDS ORDERED: SODIUM CHLORIDE 0.9% 250 ML IV PRN (23:23)
[2024-02-27 01:25] LABS: Adenovirus PCR Not Detected (NotDetected); Bordetella parapertussis PCR Not Detected (NotDetected); Bordetella pertussis PCR Not Detected (NotDetected); Chlamydia pneumoniae PCR Not Detected (NotDetected); Coronavirus 229E PCR Not Detected (NotDetected); Coronavirus CoV-2 (COVID19)PCR Not Detected (NotDetected); Coronavirus HKU1 PCR Not Detected (NotDetected); Coronavirus NL63 PCR Not Detected (NotDetected); Coronavirus OC43PCR Not Detected (NotDetected); Human Metapneumovirus PCR Not Detected (NotDetected); Influenza A PCR Not Detected (NotDetected); Influenza B PCR Not Detected (NotDetected); Mycoplasma pneumoniae PCR Not Detected (NotDetected); Parainfluenza Virus 1 PCR Not Detected (NotDetected); Parainfluenza Virus 2 PCR Not Detected (NotDetected); Parainfluenza Virus 3 PCR Not Detected (NotDetected); Parainfluenza Virus 4 PCR Not Detected (NotDetected); Respiratory Syncytial VirusPCR Not Detected (NotDetected); Rhinovirus/Enterovirus PCR Not Detected (NotDetected)
--- NOTE | 2024-02-27 01:35 | History & Physical Report ---
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 Denies any hematuria. States her noticed she has some black stools lately. Denies any obvious blood in the stools. No abdominal pain. No chest pain or shortness of breath. No cough. No fevers.Last night was having chills. Appetite is okay. No headaches. No runny nose or sore throat. Currently resting comfortably and hemodynamically stable. GI bleed Hemoglobin 7.3 Hemoglobin 10.6 in December 24, 2023 Hemoccult positive in the ER Questionable black stools Could not give Protonix because of allergy IV Pepcid 20 mg renal dosing Blood consent obtained H&H every 6 hours N.p.o. Hold aspirin Telemetry GI consult UTI Await cultures Empiric Rocephin End-stage renal disease On hemodialysis Nephrology consult Type 2 diabetes Sliding scale Will monitor Hyperlipidemia On statin Depression On citalopram Squamous cell carcinoma of the right hand S/p surgery Follow-up. Deep DVT prophylaxis SCDs Disposition Telemetry Full code Addendum: Am labs Hb 5.7. Ordered one unit prbc. Follow repat labs. Close monitor. History of Present Illness Chief Complaint: UTI and GI bleed Primary Care Provider: Willie Epstein MD 69-year-old female with past medical history significant for type 2 diabetes, end-stage renal disease on hemodialysis, hyperlipidemia, anemia in end-stage renal disease, psoriasis, squamous cell carcinoma of the right hand s/p surgery, history of osteomyelitis, history of PE, comes because of urinary frequency and burning micturition and also found to have anemia and Hemoccult positive in ER.Says since yesterday having some burning micturition and increased frequency. Denies any hematuria. States her noticed she has some black stools lately. Denies any obvious blood in the stools. No abdominal pain. No chest pain or shortness of breath. No cough. No fevers.Last night was having chills. Appetite is okay. No headaches. No runny nose or sore throat. Currently resting comfortably and hemodynamically stable. Past medical history. As mentioned above. Past surgical history. Thrombectomy of axillary artery. Arthrocentesis. Breast biopsy left side. . Colonoscopy. Cystoscopy. Cystoscopy with stone removal. EGD with biopsy. Reconstruction of the hip socket. Removal of the drug implant. Inguinal hernia repair. Revision of the previous hip surgery. Urological surgery with ureteral stent placement. Social history. . No smoking. No alcohol use. No drug use. Family history. Mother had rheumatoid arthritis. Hypertension. Father had pro state and lung cancer. Sister had breast cancer. Allergies Allergy/AdvReac Type Severity Reaction Status Date / Time Sulfa (Sulfonamide Allergy Severe Face/lips/tongue Verified 01/02/24 07:08 Antibiotics) edema nitrofurantoin Allergy Intermediate Hives Verified 01/02/24 07:08 cefazolin [From Ancef] Allergy Unknown Unknown Verified 02/26/24 22:39 pantoprazole [From Protonix] Allergy Unknown Unknown Verified 01/02/24 07:08 methylprednisolone AdvReac Intermediate Sweating, Verified 01/02/24 07:08 [From Medrol] heart racing Home Medications Medication Instructions Recorded Confirmed Type aspirin 81 mg chewable tablet 81 mg PO QAM 12/31/18 02/26/24 History gabapentin 100 mg capsule 100 mg PO DIRECTED 12/31/18 02/27/24 History albuterol sulfate 90 mcg/actuation 2 puff inhalation Q6H PRN Wheezing 04/04/21 02/26/24 History aerosol inhaler citalopram 20 mg tablet 20 mg PO QAM 04/04/21 02/26/24 History oxycodone 15 mg tablet 15 mg PO Q8 PRN Pain 04/04/21 02/26/24 History betamethasone dipropionate 0.05 % 1 applic topical BID PRN 11/15/23 02/26/24 History topical ointment PSORIASIS/ITCHING cinacalcet 90 mg tablet 90 mg PO QAM 11/15/23 02/27/24 History lanthanum 750 mg chewable tablet 750 mg PO TID 11/15/23 02/26/24 History ropinirole 2 mg tablet 2 mg PO QPM 11/15/23 02/26/24 History simvastatin 20 mg tablet 20 mg PO HS 11/15/23 02/26/24 History vitamin B complex-vitamin C-folic 1 tab PO QAM 11/15/23 02/26/24 History acid 0.8 mg tablet (Anais-Federico) dulaglutide 0.75 mg/0.5 mL 0.75 mg subcut WK 02/26/24 02/26/24 History subcutaneous pen injector (Trulicity) Past Med/Surg History Medical History History of blood transfusion 2022 Pulmonary hypertension mild on 2020 echo Sleep apnea severe-not currently treated per pt Moderate aortic stenosis (MELCHOR 0.8 cm2, mean PG 20 mmHg) Diabetes mellitus, type 2 Ambulatory dysfunction walker-dependent Chronic pain Obesity Limb alert care status RUE AVF Osteoporosis Anxiety and depression RLS (restless legs syndrome) HLD (hyperlipidemia) HTN (hypertension) Psoriasis History of renal calculi History of DVT (deep vein thrombosis) RLE, 10+ years ago, post op AC therapy x 3-6 months after > d/c'd + no issues since History of pulmonary embolus (PE) 10+ years ago, post op End stage renal disease on dialysis 2/2 DM Diaylsis Tues/Thurs/Sat- [facility] Follows with Dr. Perez Surgical History Hx of bilateral hip replacements H/O laparoscopy History of cystoscopy S/P arteriovenous (AV) fistula repair (~2020) right History of tooth extraction History of x 2 S/P arteriovenous (AV) fistula creation x 2 BL (non functioning on left)--left still in place not working History of colonoscopy H/O partial resection of colon (2012) For diverticulitis H/O inguinal hernia repair left S/P cholecystectomy Family History Mother Diabetes Sister Diabetes Other No family history of adverse response to anesthesia Social History Smoking Status: Never smoker Second Hand Exposure: No; Do You Dip or Chew Tobacco: No; Tobacco Cessation Education Requested by Patient: No Hx Alcohol Use: No Hx Substance Use: No Preferred Language: Cymraes Communication Ability: Effective Wildland Fire Operations Specialist Required: No Beliefs That Will Affect Care: None marital status: Current Living Situation: Parent and Family Current Living Situation Comment: Lives with , daughter and grandson How many Children do You have: 3 Other Information That Helps Us Care for You: No Feels Safe at Home: Yes Safety Concerns: Feels Safe At This Time Assistive Devices: Walker Review of Systems Review of Systems: All systems reviewed & are unremarkable except as noted in HPI & below Physical Exam Physical Exam: General- Not in distress Head- atraumatic Eyes- PERRL, ENT- oropharynx clear Neck- supple, no JVD. Lungs- clear to auscultation no wheezing or crackles. Heart- regular rhythm; no murmur, no gallop. Abdomen- normal bowel sounds, soft, nontender, No distension. Extremities- no pretibial edema, no erythema seen. Neuro- alert, oriented PERRL, EOMI; no facial palsy; no dysarthria; moves extremities. Results & Data Results & Data Vital Signs (Past 12 Hours) Vital Signs Temp Pulse Resp BP Pulse Ox O2 Del Method 02/26/24 23:30 100 H 24 123/81 02/26/24 22:22 87 02/26/24 19:38 36.0 C L 97 H 18 141/70 H 93 Room Air Diagnostic Findings Laboratory Results WBC 9.73 K/ul (4.8-10.8) 02/26/24 19:55 RBC 2.44 M/uL (4.20-5.40) L 02/26/24 19:55 Hgb 7.3 g/dl (12.0-16.0) L 02/26/24 19:55 Hct 23.5 % (37.0-47.0) L 02/26/24 19:55 MCV 96.3 fL (80.0-100.0) 02/26/24 19:55 MCH 29.9 pg (25.0-34.0) 02/26/24 19:55 MCHC 31.1 g/dL (32.0-36.0) L 02/26/24 19:55 RDW Std Deviation 52.8 fL (36.4-46.3) H 02/26/24 19:55 RDW Coeff of Erum 15.2 % (11.5-14.5) H 02/26/24 19:55 Plt Count 369 K/uL (130-400) 02/26/24 19:55 MPV 9.4 fL (9.4-12.4) 02/26/24 19:55 Immature Gran % (Auto) 0.6 % 02/26/24 19:55 Neut % (Auto) 87.5 % 02/26/24 19:55 Lymph % (Auto) 5.9 % 02/26/24 19:55 Lawrence % (Auto) 4.2 % 02/26/24 19:55 Eos % (Auto) 1.2 % 02/26/24 19:55 Baso % (Auto) 0.6 % 02/26/24 19:55 Neut # (Auto) 8.51 K/uL (1.40-6.50) H 02/26/24 19:55 Lymph # (Auto) 0.57 K/uL (1.20-3.40) L 02/26/24 19:55 Lawrence # (Auto) 0.41 K/uL (0.11-0.59) 02/26/24 19:55 Eos # (Auto) 0.12 K/uL (0.00-0.50) 02/26/24 19:55 Baso # (Auto) 0.06 K/uL (0.00-0.20) 02/26/24 19:55 Immature Gran # (Auto) 0.06 K/uL (0.01-0.20) 02/26/24 19:55 Polychromasia 1+ 02/26/24 19:55 Sodium 138 mmol/L (136-145) 02/26/24 19:55 Potassium 3.8 mmol/L (3.5-5.1) 02/26/24 19:55 Chloride 99 mmol/L (98-107) 02/26/24 19:55 Carbon Dioxide 26 mmol/L (21-32) 02/26/24 19:55 Anion Gap 13 (3-11) H 02/26/24 19:55 BUN 37 mg/dl (6-23) H 02/26/24 19:55 Creatinine 2.27 mg/dl (0.6-1.2) H 02/26/24 19:55 Est Cr Clr Drug Dosing Not Reportable 02/26/24 19:55 Est GFR ( Amer) 24.5 ml/min 02/26/24 19:55 Est GFR (Non-Af Amer) 21.2 ml/min 02/26/24 19:55 BUN/Creatinine Ratio 16.3 (10-20) 02/26/24 19:55 Glucose 164 mg/dl (70-99(Fasting)) H 02/26/24 19:55 Calcium 7.9 mg/dl (8.6-10.3) L 02/26/24 19:55 Total Bilirubin 0.4 mg/dl (0.2-1.0) 02/26/24 19:55 AST 16 U/L (13-39) 02/26/24 19:55 ALT 13 U/L (7-52) 02/26/24 19:55 Alkaline Phosphatase 114 U/L (34-104) H 02/26/24 19:55 Total Protein 7.4 gm/dl (6.0-8.3) 02/26/24 19:55 Albumin 3.1 gm/dl (3.4-5.0) L 02/26/24 19:55 Globulin 4.3 gm/dl (2.5-4.0) H 02/26/24 19:55 Albumin/Globulin Ratio 0.7 (0.9-2) L 02/26/24 19:55 Urine Color Yellow 02/26/24 21:23 Urine Appearance Cloudy (Clear) A 02/26/24 21:23 Urine pH >= 9.0 (4.5-7.5) H 02/26/24 21:23 Ur Specific Rawlings 1.010 (1.000-1.030) 02/26/24 21:23 Urine Protein 2+ (Negative) H 02/26/24 21:23 Urine Glucose (UA) 1+ (Negative) H 02/26/24 21:23 Urine Ketones Negative (Negative) 02/26/24 21:23 Urine Blood 1+ (Negative) H 02/26/24 21:23 Urine Nitrite Negative (Negative) 02/26/24 21:23 Urine Bilirubin Negative (Negative) 02/26/24 21:23 Urine Urobilinogen Negative (Negative) 02/26/24 21:23 Ur Leukocyte Esterase Trace (Negative) H 02/26/24 21:23 Urine WBC (Auto) 0-5 /hpf (0-5) 02/26/24 21:23 Urine RBC (Auto) 6-10 /hpf (0-2) H 02/26/24 21:23 U Hyaline Cast (Auto) 3-5 /lpf (0-2) H 02/26/24 21:23 U Epithel Cells (Auto) >20 /hpf (0-2) H 02/26/24 21:23 Urine Bacteria (Auto) None Seen (None Seen) 02/26/24 21:23 Adenovirus (PCR) Not Detected (NotDetected) 02/27/24 00:30 B. pertussis DNA (PCR) Not Detected (NotDetected) 02/27/24 00:30 B.parapertussis DNA PCR Not Detected (NotDetected) 02/27/24 00:30 C. pneumoniae DNA (PCR) Not Detected (NotDetected) 02/27/24 00:30 Coronavirus OC43 (PCR) Not Detected (NotDetected) 02/27/24 00:30 Coronavirus HKU1 (PCR) Not Detected (NotDetected) 02/27/24 00:30 Coronavirus 229E (PCR) Not Detected (NotDetected) 02/27/24 00:30 SARS-CoV-2 (PCR) Not Detected (NotDetected) 02/27/24 00:30 Coronavirus NL63 (PCR) Not Detected (NotDetected) 02/27/24 00:30 Human Metapneumovir PCR Not Detected (NotDetected) 02/27/24 00:30 Influenza Type A (PCR) Not Detected (NotDetected) 02/27/24 00:30 Influenza Type B (PCR) Not Detected (NotDetected) 02/27/24 00:30 M. pneumoniae (PCR) Not Detected (NotDetected) 02/27/24 00:30 Parainfluenza 1 (PCR) Not Detected (NotDetected) 02/27/24 00:30 Parainfluenza 2 (PCR) Not Detected (NotDetected) 02/27/24 00:30 Parainfluenza 3 (PCR) Not Detected (NotDetected) 02/27/24 00:30 Parainfluenza 4 (PCR) Not Detected (NotDetected) 02/27/24 00:30 RSV (PCR) Not Detected (NotDetected) 02/27/24 00:30 Entero/Rhino (PCR) Not Detected (NotDetected) 02/27/24 00:30 Blood Type A Negative 02/26/24 23:47 Antibody Screen POSITIVE A 02/26/24 23:47 Crossmatch See Detail 02/26/24 23:47 Code Status & VTE Plan VTE Prophylaxis Plan VTE Prophylaxis will be ordered: Yes
[2024-02-27] MEDS ORDERED: CARBOHYDRATES FOR HYPOGLYCEMIA PO PRN (02:34)
[2024-02-27] MEDS ORDERED: GLUCAGON FOR INJ 1 MG VIAL SQ PRN (02:34)
[2024-02-27] MEDS ORDERED: GLUCOSE 10 TAB/TUBE PO PRN (02:34)
[2024-02-27] MEDS ORDERED: ALBUTEROL HFA 8 GM INHALER INH PRN (02:34)
[2024-02-27] MEDS ORDERED: GLUCOSE 40% GEL 15 GM TUBE PO PRN (02:34)
[2024-02-27] MEDS ORDERED: NITROGLYCERIN SL 0.4 MG/TAB TAB SL PRN (02:34)
[2024-02-27] MEDS ORDERED: DEXTROSE 50% 50 ML SYRINGE IV PRN (02:34)
[2024-02-27] MEDS ORDERED: ACETAMINOPHEN 325 MG TAB PO PRN (02:34)
[2024-02-27] MEDS ORDERED: FLUOCINONIDE 0.05% OINT 15 GM TUBE EXT PRN (02:50)
[2024-02-27] MEDS: FAMOTIDINE 20MG IV PUSH 20 MG/5 ML SYR IV STA (03:30)
[2024-02-27] MEDS: LORazepam 0.5 MG TAB PO STA (03:30)
[2024-02-27] MEDS: INSULIN ASPART PER UNIT CHARGE SC SCH ×2 (03:30→16:44)
[2024-02-27] MEDS: oxyCODONE HCL IR 5 MG TAB (IMMEDIATE RELEASE) PO PRN (04:04)
[2024-02-27 06:06] LABS: BUN Creatinine Ratio 17.4 (10-20); Calcium 7.9 mg/dl (8.6-10.3); Creatinine Clr Calc Pharmacy 19.6 ml/min; Est GFR (African American) 19.9 ml/min; Est GFR (Non-African American) 17.2 ml/min; Hematocrit (blood only) 18.3 % (37.0-47.0); Hemoglobin 5.7 g/dl (12.0-16.0); Mean Corpuscular Hemoglobin 29.4 pg (25.0-34.0); Mean Corpuscular Hgb Conc 31.1 g/dL (32.0-36.0); Mean Corpuscular Volume 94.3 fL (80.0-100.0); Mean Platelet Volume 9.4 fL (9.4-12.4); Platelet Count 307 K/uL (130-400); RDW Coefficient of Variation 15.3 % (11.5-14.5); RDW Standard Deviation 53.1 fL (36.4-46.3); Red Blood Count 1.94 M/uL (4.20-5.40); White Blood Count 8.42 K/ul (4.8-10.8)
[2024-02-27] MEDS ORDERED: SODIUM CHLORIDE 0.9% 250 ML IV PRN ×2 (06:12→07:57)
[2024-02-27 06:34] LABS: Basophils # (auto) 0.04 K/uL (0.00-0.20); Basophils % (auto) 0.5 %; Eosinophils # (auto) 0.11 K/uL (0.00-0.50); Eosinophils % (auto) 1.3 %; Immature Granulocytes # (auto) 0.14 K/uL (0.01-0.20); Immature Granulocytes % (auto) 1.7 %; Lymphocytes % (auto) 9.5 %; Monocytes # (auto) 0.44 K/uL (0.11-0.59); Monocytes % (auto) 5.2 %; Neutrophils # (auto) 6.89 K/uL (1.40-6.50); Neutrophils % (auto) 81.8 %; Polychromasia 1+
--- NOTE | 2024-02-27 07:25 | XRay Report ---
XR chest 1V portable HISTORY: chills COMPARISON: Chest 12/24/2023. FINDINGS: There are low lung volumes. No pneumothorax. The cardiac silhouette remains enlarged. There is progressive interstitial/vascular thickening suggestive of mild pulmonary edema. No definite pleu ral effusions. Calcifications within the aortic knob. Degenerative changes within the shoulders again noted. IMPRESSION: Cardiomegaly with interval progression of the mild interstitial pulmonary edema. ACT 112: Negative or not required by law. Electronically signed by: Bryon Recinos M.D. 02/27/2024 7:24 AM
[2024-02-27 07:36] LABS: Estimated Average Glucose 103 mg/dl; Hemoglobin A1C 5.2 % (4.5-5.6)
--- NOTE | 2024-02-27 08:58 | Nephrology Consultation ---
Date of Consultation February 27, 2024 Assessment & Plan (1) Acute GI bleeding: per primary service and GI; on RA and not volume overloaded currently >> could transfuse up to 2 units pRBC w/o issue today; if greater need anticipated contact nephro > may need urgent HD. last tsat in January 54%; likely lower now -serial H&H -transfuse PRN -f/u GI recs -consider abdominal imaging non con CT (2) End stage renal disease on dialysis: on TRSat HD via AVF >next HD on 02/27 unless issues above (3) MINDI (obstructive sleep apnea): not on OP therapy d/t long delays in f/u (sleep study done [facility], [place] Jun 2023 w/ severe MINDI) > recommend appropriate therapy while in house (4) Lower urinary tract symptoms (LUTS): UA has no bacteria >> ? if glucosuria was causing LUTS >would also do renal imaging to r/o stone >>if imaging negative for stone, given no bacteria on UA would stop abtx History of Present Illness Reason for Consultation: ESRD on HD Requesting Physician: Dr Dillon Attending Physician: Dena eRnae MD History of Present Illness 69 y/o F whom I'm asked to see for ESRD on HD was admitted last evening with GI bleeding and symptomatic UTI. Her presenting hgb was 7.3 last evening, down to 5.7 this am. Past medical history includes ESRD on in center hemodialysis via AV fistula, moderate aortic stenosis, type 2 diabetes, history of DVT/PE not on AC, severe sleep apnea not on therapy / still in w/u; restless leg syndrome, chronic ambulatory dysfunction/walker dependent, recently diagnosed squamous cell carcinoma on her right hand status post excision, chronic back pain, psoriasis. She dialyzes under my care at [facility] on Friday and had a full treatment yesterday without issues. Her hemoglobin on February 23 labs at dialysis was 7.9, down from 9.2 on February 16. She was Hemoccult positive in the ER. Serial hemoglobin is being followed after her admission to a telemetry bed and GI consult is pending. Started on empiric Rocephin for UTI pending cultures. She began having dysuria and increased frequency/urgency about 24 hours before presentation. Also recently noticed black stools which is new for her and does not relate to any iron rich medications to treat anemia or elevated phosphorus. No melena. No daniela blood in stools. Denies shortness of breath, chest pain. No abdominal or flank pain. No fevers chills nausea vomiting. Allergies Allergy/AdvReac Type Severity Reaction Status Date / Time Sulfa (Sulfonamide Allergy Severe Face/lips/tongue Verified 01/02/24 07:08 Antibiotics) edema nitrofurantoin Allergy Intermediate Hives Verified 01/02/24 07:08 cefazolin [From Ancef] Allergy Unknown Unknown Verified 02/26/24 22:39 pantoprazole [From Protonix] Allergy Unknown Unknown Verified 01/02/24 07:08 methylprednisolone AdvReac Intermediate Sweating, Verified 01/02/24 07:08 [From Medrol] heart racing Home Medications Medication Instructions Recorded Confirmed Type aspirin 81 mg chewable tablet 81 mg PO QAM 12/31/18 02/26/24 History gabapentin 100 mg capsule 100 mg PO DIRECTED 12/31/18 02/27/24 History albuterol sulfate 90 mcg/actuation 2 puff inhalation Q6H PRN Wheezing 04/04/21 02/26/24 History aerosol inhaler citalopram 20 mg tablet 20 mg PO QAM 04/04/21 02/26/24 History oxycodone 15 mg tablet 15 mg PO Q8 PRN Pain 04/04/21 02/26/24 History betamethasone dipropionate 0.05 % 1 applic topical BID PRN 11/15/23 02/26/24 History topical ointment PSORIASIS/ITCHING cinacalcet 90 mg tablet 90 mg PO QAM 11/15/23 02/27/24 History lanthanum 750 mg chewable tablet 750 mg PO TID 11/15/23 02/26/24 History ropinirole 2 mg tablet 2 mg PO QPM 11/15/23 02/26/24 History simvastatin 20 mg tablet 20 mg PO HS 11/15/23 02/26/24 History vitamin B complex-vitamin C-folic 1 tab PO QAM 11/15/23 02/26/24 History acid 0.8 mg tablet (Anais-Federico) dulaglutide 0.75 mg/0.5 mL 0.75 mg subcut WK 02/26/24 02/26/24 History subcutaneous pen injector (Trulicity) Patient History Medical History (Updated 02/27/24 @ 10:20 by Danette Perez MD, PhD) MINDI (obstructive sleep apnea) History of blood transfusion 2022 Pulmonary hypertension mild on 2020 echo Sleep apnea severe-not currently treated per pt Moderate aortic stenosis (MELCHOR 0.8 cm2, mean PG 20 mmHg) Diabetes mellitus, type 2 Ambulatory dysfunction walker-dependent Chronic pain Obesity Limb alert care status RUE AVF Osteoporosis Anxiety and depression RLS (restless legs syndrome) HLD (hyperlipidemia) HTN (hypertension) Psoriasis History of renal calculi History of DVT (deep vein thrombosis) RLE, 10+ years ago, post op AC therapy x 3-6 months after > d/c'd + no issues since History of pulmonary embolus (PE) 10+ years ago, post op End stage renal disease on dialysis 2/2 DM Diaylsis Tues/Thurs/Sat- [facility] Follow[facility] with Dr. Perez Surgical History Hx of bilateral hip replacements H/O laparoscopy History of cystoscopy S/P arteriovenous (AV) fistula repair (~2020) right History of tooth extraction History of x 2 S/P arteriovenous (AV) fistula creation x 2 BL (non functioning on left)--left still in place not working History of colonoscopy H/O partial resection of colon (2012) For diverticulitis H/O inguinal hernia repair left S/P cholecystectomy Family History Mother Diabetes Sister Diabetes Other No family history of adverse response to anesthesia Social History Smoking Status: Never smoker Second Hand Exposure: No; Do You Dip or Chew Tobacco: No; Tobacco Cessation Education Requested by Patient: No Hx Alcohol Use: No Hx Substance Use: No Preferred Language: Indian Communication Ability: Effective Strategic Debriefing Specialist Required: No Beliefs That Will Affect Care: None marital status: Current Living Situation: Parent and Family Current Living Situation Comment: Lives with , daughter and grandson How many Children do You have: 3 Other Information That Helps Us Care for You: No Feels Safe at Home: Yes Safety Concerns: Feels Safe At This Time Assistive Devices: Walker Review of Systems 2 Review of Systems: All systems reviewed & are unremarkable except as noted in HPI & below Physical Exam 2 Constitutional: well developed (sitting in reclining chair on RA), well nourished and cooperative; no acute distress Eyes: EOM intact bilaterally ENMT: Ears: no external ear abnormality Nose: no external nose abnormality Mouth: + dry oral mucous membranes Neck: no nuchal rigidity Respiratory: normal respiratory effort Auscultation: + diminished lung sounds Cardiovascular: Rate/Rhythm: regular rhythm and + tachycardic Extremities: + edema (trace RLE) and + AV fistula (RUE+ t/b) Gastrointestinal (Abdomen): Inspection/Auscultation: normal bowel sounds P ercussion/Palpation: abdomen soft; abdomen nontender Musculoskeletal: Extremities: strength 5/5 throughout Skin: no rashes, warm and dry Neurologic: valdez, fluent speech, no tremor Results & Data Vital Signs (Past 12 Hours) Vital Signs Temp Pulse Pulse Resp BP BP Pulse Ox 02/27/24 07:40 36.6 C 94 H 18 120/64 98 02/27/24 07:39 36.4 C L 94 H 23 120/64 94 02/27/24 07:10 36.9 C 90 19 122/66 94 02/27/24 06:55 36.7 C 93 H 18 118/62 96 02/27/24 06:36 36.7 C 96 H 16 125/61 95 02/27/24 03:40 02/27/24 02:25 96 H 02/27/24 02:13 36.5 C 96 H 18 121/61 95 02/27/24 01:48 02/26/24 23:30 100 H 24 123/81 02/26/24 22:22 87 O2 Del Method 02/27/24 07:40 02/27/24 07:39 Room Air 02/27/24 07:10 02/27/24 06:55 02/27/24 06:36 02/27/24 03:40 Room Air 02/27/24 02:25 02/27/24 02:13 Room Air 02/27/24 01:48 Room Air 02/26/24 23:30 02/26/24 22:22 Laboratory Results 02/27/24 05:22 02/27/24 05:22
[2024-02-27] MEDS: *LANTHANUM*ORDER AWAITING ACTION SCH (09:25)
[2024-02-27] MEDS: CINACALCET HCL 90 MG TAB PO SCH (09:28)
[2024-02-27] MEDS: GABAPENTIN 100 MG CAP PO SCH (09:29)
[2024-02-27] MEDS: NEPHROCAPS PO SCH (09:29)
[2024-02-27] MEDS: CITALOPRAM 20 MG TAB PO SCH (09:29)
--- OUTSIDE RECORDS SUMMARY | 2024-02-27 09:30 | External Medical Summary | Summary of Care ---
Author Name Unknown Organization [facility] Address [address] [place] [address] Phone [phone] Care Team Providers Care Marriage And Family Social Worker Name Role Phone Willie Epstein MD Primary Care Provider + Reason for Visit * Reason Onset Date Comments Encounter Created in Error 02/20/2024 Encounter Details Date Type Department Care Team (Late st Contact Info) Description 02/20/2024 Telephone [facility] [address] [place] [address] Lj Maxwell MD [address] [place] [address] Encounter Created in Error Allergies Active Allergy Reactions Criticality Noted Date Comments Cefazolin Unknown 11/15/2023 Other Reaction(s): CAN'T REMEMBER Methylprednisolone Other (Please comment) 07/28/2017 Side effects c/w med (sweating, heart racing etc) Nitrofurantoin Monohyd Macro Hives 04/04/2014 Pantoprazole Unknown 11/15/2023 Other Reaction(s): CAN'T REMEMBER Sulfa Antibiotics Edema face/lips/tongue High 09/02/2008 documented as of this encounter (statuses as of 02/20/2024) Medications Medication Sig Dispensed Refills Start Date End Date Status INSULIN SYRINGE-NEEDLE U-100 30G X 1/2" 1 ML MISCIndications:DM type 2, goal A1c below 7 Use as directed 1 Box of 100 11 10/04/2008 Active RENAL MULTIVITAMIN/ZINC PO TABS None Entered 0 Active ASPIRIN 81 MG PO TABS 1 tablet daily 0 Active Forensic LogicTOUCH ULTRASOFT LANCETS MISCIndications:Typ e 2 diabetes mellitus with hemoglobin A1c goal of less than 8.0% (FORMERLY [facility]) Use as directed 2 times a day. 1 Box Dosing Unit 11 01/16/2017 Active cinacalcet (SENSIPAR) 30 MG Tablet Take 1 Tab by mouth daily with dinner. 90 Tab 3 11/07/2017 Active Insulin Pen Needle (BD PEN NEEDLE SHORT U/F) 31G X 8 MMIndications:DM type 2 nursing care encounter (HCC) USE DIRECTED WITH LEVEMIR PENS TWICE A DAY 100 Each 5 2019 Active Blood Glucose Monitoring Suppl (Ecozen SolutionsUCH ULTRA 2) w/Device KIT Use to check blood sugar 2 times a day; E11.9. 1 Kit 0 10/22/2019 Active Glucose Blood (Forensic LogicTOUCH ULTRA BLUE) STRP Use to check blood sugar 2 times a day; E11.9. 200 Box Dosing Unit 3 10/22/2019 Active Breo Ellipta 200-25 MCG/INH Inhalation Aerosol Powder Breath Activated (fluticasone furoate-vilanterol) Indications:Sinobro nchitis Inhale 1 Puff by mouth daily. 1 Each 3 01/26/2021 Active Lisinopril 10 MG Oral Tablet (Prinivil) Take 1 Tablet (10 mg) by mouth in the morning. 30 Tablet 1 09/24/2022 Active Gabapentin 100 MG Oral Capsule (Neurontin) TAKE 1 CAPSULE BY MOUTH DAILY + 1 DOSE EXTRA AFTER DIALYSIS EVERY 3 DAYS. 135 Capsule 2 04/15/2023 Active Albuterol Sulfate HFA 108 (90 Base) MCG/ACT Inhalation Aerosol SolutionIndications :Bronchitis, complicated TAKE 2 PUFFS BY MOUTH EVERY 6 HOURS NEEDED FOR WHEEZE 18 g 0 04/17/2023 Active rOPINIRole HCl 2 MG Oral Tablet (Requip) TAKE 1 TABLET BY MOUTH AT BEDTIME. 1-3 HOURS BEFORE BEDTIME WITH FOOD FOR RESTLESS LEGS 90 Tablet 3 06/27/2023 Active Triamcinolone Acetonide 0.1 % External Ointment (Aristocort)Indicat ions:Inverse psoriasis Apply 2x daily during week (off on weekends) to psoriasis under breasts until resolved, then when flaring 454 g 0 12/01/2023 Active Simvastatin 20 MG Oral Tablet (Zocor)Indications: Dyslipidemia, goal LDL below 70 TAKE ONE TABLET BY MOUTH ONCE A DAY AT BEDTIME 90 Tablet 0 01/12/2024 Active oxyCODONE HCl 15 MG Oral Tablet (Roxicodone)Indicat ions:MEDICATION USE AGREEMENT,Arthritis of left shoulder region,Spondylolist hesis of lumbosacral region,H/O bilateral hip replacements Take 1 Tablet by mouth every 8 hours as needed (pain). 90 Tablet 0 01/29/2024 Active Trulicity 0.75 MG/0.5ML Subcutaneous Solution Pen-injector (Dulaglutide)Indica tions:Type 2 diabetes mellitus with hemoglobin A1c goal of less than 8.0% (HCC) INJECT UNDER THE SKIN 0.75 MG ONCE A WEEK . 3 mL 5 02/02/2024 Active Citalopram Hydrobromide 20 MG Oral Tablet (CeleXA) TAKE 1 TABLET BY MOUTH EVERY DAY 90 Tablet 1 02/03/2024 Active Betamethasone Dipropionate 0.05 % External OintmentIndications :Plaque psoriasis APPLY 2X DAILY (OR MORE IF ITCHY INSTEAD OF SCRATCHING) TO AFFECTED PSORIASIS SPOTS ON ARMS/LEGS UNTIL RESOLVED 50 g 1 02/02/2024 Active documented as of this encounter (statuses as of 02/20/2024) Active Problems Problem Noted Date Diagnosed Date SCC (squamous cell carcinoma), hand, right 01/20 Hx of nonmelanoma skin cancer 01/09/2024 Overview: squamous cell carcinoma (R dorsal hand 01/10) Age-related osteoporosis wit hout current pathological fracture 12/19/2022 Overview: 01/09 DEXA. 01/10 Rheum-- Osteoporosis treatment is contraindicated at this time with severe renal disease Psoriasis 10/09/2022 Hypertensive kidney disease with end-stage renal disease 12/01/2019 Well adult exam 08/04/2019 Overview: 01/09 DEXA +osteoporosis. NEED discuss. 11/10 colon +tubular adenomas. 04/09 mult compression fractures. 05/2018 many polyps Therapeutic opioid induced constipation 08/04/20 ESRD on dialysis 09/08/2016 Overview: 03/05 HCP forms given-wants . NEEDS further Living will 2017 consider transplant needs 20lb -HD [facility]? T,R, S. Since January 2013. Spondylolisthesis of lumbosacral region 02/04/20 Overview: L5-S1 level with grade 1 anterolisthesis of L4 on L5 and grade 1 retrolisthesis of L5 on S1 Anemia in ESRD (end-stage renal disease) 013 MEDICATION USE AGREEMENT 11/12/2012 Overview: For pain medications for chronic hip pain, arm pain, OA. UDS done 11/12/12 c/w prescribed oxycodone. Was not enough sample to run the ordered confirmation test, but since UDS was c/w prescribed meds, no further testing ordered. Pt will notify PCP office if she is prescribed any post-op meds by outside docs if surgery is indicated in her near future (OV fistula, Hip surgery, etc). History of pulmonary embolism 08/28/2012 History of osteomyelitis 08/13/2012 Overview: pelvis Severe obesity with body mas s index (BMI) of 35.0 to 39.9 with serious comorbidity 01/15/2010 Overview: Per Obesity Taxonomy ICD-10 update of inactive diagnosis Hypertensive kidney disease with end-stage renal disease 09/06/2009 Type 2 diabetes mellitus wit h hemoglobin A1c goal of less than 8.0% 08/17/2009 Overview: Per Diabetes Taxonomy. ICD-10 update of inactive term Dyslipidemia, goal LDL below 70 Vitamin D deficiency H/O bilateral hip replacements Family history of breast cancer Overview: sister Type 2 diabetes mellitus wit h ESRD (end-stage renal disease) Long-term insulin use documented as of this encounter (statuses as of 02/20/2024) Resolved Problems Problem Noted Date Diagnosed Date Resolved Date Thoracic compression fracture 04/09/2021 04/13/2021 Overview: Mult levels 04/09 [facility] + lumbar Respiratory symptoms 01/08/2020 021 Fever of unknown origin (FUO) 01/07/2020 02/26/2021 Respiratory infection 01/07/20202020 Cellulitis 06/28/2016 09/08/2016 Abnormal vaginal bleeding 02/12/2016 Cellulitis 02/07/2016 09/08/2016 UTI (urinary tract infection), bacterial 04/19/2014 05/02/2014 Hypotension 04/15/2014 05/02/2014 Compression of lumbar vertebra 02/03/2013 06/07/2021 Overview: Mult levels noted 04/[address] [facility] [address] also thoracic CKD (chronic kidney disease), stage V 12/30/2012 09/08/2016 Iron deficiency anemia 08/25/201209/08 Overview: ICD-10 update of inactive term A-V fistula 08/03/2012 08/17/2019 Overview: On dialysis Kidney disease, chronic, sta ge IV (GFR 15-29 ml/min) 05/28/2012 12/30/2012 Hip joint replacement status 05/07/2012 04/23/2019 History of drug abuse 01/27/20122011 Overview: Patient w/ h/o taking more of her pain medication than prescribed - no narcotic medication refills w/o PCP approval please! Update as of 05/11/12 - pt has been doing very well on appropriate pain medication for past months - also has since had hip surgery. Meds being monitored by PCP, will coordinate w/ Ortho for med refills. NO current sing of or concern for med abuse. Nephrolithiasis 12/16/2011 04/23/2019 Kidney disease, chronic, sta ge III (GFR 30-59 ml/min) 12/16/2011 05/28/2012 Acute worsening of stage 3 c hronic kidney disease 12/16/2011 05/28/2012 Overview: ICD-10 update of inactive term Proteinuria 12/16/2011 09/08/2016 Spasm of muscle 09/02/2010 02/07/2016 HTN, goal below 140/90 08/25/200909/06 Overview: Modified 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 certified peer specialist current use of ant icoagulant therapy 04/19/2009 10/16/2010 Overview: ICD-10 update of inactive term Other pulmonary embolism and infarction 09/02/2008 10/16/2010 Osteoporosis 04/17/2007 02/07/2016 Benign neoplasm of colon 03/23/2007 Overview: hyperplastic polyp--repeat 3 years ADVANCE DIRECTIVE INFORMATION 03/19/2005 04/23/2019 Overview: pt doing living will now. Morbid obesity, BMI not known 02/28/2004 01/15/2010 Overview: Per Obesity Taxonomy Incisional hernia 09/08/2003 10/16/2010 Reflux esophagitis 05/26/2003 6 Type 2 diabetes mellitus wit h hemoglobin A1c goal of less than 7.0% 08/17/2009 Overview: Per Diabetes Taxonomy. ICD-10 update of inactive term BENIGN HYPERTENSION 08/25/20 Overview: Modified 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 Menopause 02/07/2016 Tachycardia 02/07/2016 Pulmonary embolus 10/16/2010 Other psoriasis and similar disorders 02/07/2016 Hemorrhoids 02/07/2016 Renal function test abnormal 07/20/2014 Overview: Prior ARF secondary to complications from incarcerated hernia and bowel obstruction. Also prior h/o multiple kidney stones - is s/p B/L stents Sees Dr. Angel in [place] for Urology Osteoarthritis of hip 2018 documented as of this encounter (statuses as of 02/20/2024) Immunizations Name Administration Dates Next Due COVID-19 mRNA, LNP-s, No Pre serve, 2-Dose Series ([employer]) 09/11/2021,01/02/2021,12/12/2020 COVID-19, mRNA, LNP-s, PF, B ooster, 100mcg/0.5mg (Moderna) 02/26/2022 Covid-19, Mrna, Lnp-s, Pf, B ivalent, 30 Mcg, IM, 12 yrs and above (Pfizer) 07/01/2022 H1N1 2009 Influenza, IM 10/17/2009 Hepatitis B Vaccine, Recombi nant, Adjuvanted, 20 mcg/mL (Heplisav-B) 05/28/2022,04/04/2022,02/26/2022,01/29 Hepatitis B, 0-19 yrs 03/07/2016, 016,11/02/2015,09/14,05/11/2013,04/13/2013,03/16/2013 Hepatitis B, 20+ yrs 03/07/2016,12/09/19 16,11/02/2015,09/14,05/11/2013,04/13/2013,03/16/2013 Pneumococcal Conjugate Vacc, 13 Valent (Prevnar) 12/31/2017,12/10/2016 Pneumococcal Polysaccharide PPV23 (Pneumovax) 08/20/2019,04/15/2006 Seasonal Influenza, PF, 6 M & above, IM , (FluLaval or Fluzone) 08/03/2018 Seasonal Influenza, QUAD, wi th Preserv, 6 mons & Above, 0.5 mL, IM 07/09/2022,07/24/2021 Seasonal Influenza, Quadriva lent Hd, 65+ Yrs 08/03/2021 Seasonal Influenza, Recombin ant, RIV3, No Preserve 07/21/2019,08/05/2016 Seasonal Influenza, Recombin ant, RIV4, PF, (Flublock) 07/29/2023 Seasonal Influenza, Split, I IV3, With Preserve, Inj 08/20/2015,07/20/2014,07/06/2013,07/25,07/10/2011,07/23/2010,07/27/2009 ,07/29/2008,08/26/2007,08/14/2006 Seasonal Influenza, Trivalen t, High Dose, No Preserve, IM 07/16/2017 TDAP (age 10 and older)(Boostrix) 12/29/2018 TDAP (age 11 and older)(Adacel) 04/19/2009 documented as of this encounter Social History Tobacco Use Types Packs/Day Years Used Date Smoking Tobacco: Never Smokeless Tobacco: Never Comments:smoked less than a ppd for 1 year Alcohol Use Standard Drinks/Week Comments No 0 (1 standard drink = 0.6 oz pur e alcohol) PHQ-2 Answer Date Recorded PHQ Adult Total Score 0 12/13/2022 Hunger Vital Sign Answer Date Recorded Within the past 12 months, y ou worried that your food would run out before you got the money to buy more. Never true 04/30/20 23 Within the past 12 months, t he food you bought just didn't last and you didn't have money to get more. Never true 04/30/2023 Sex and Gender Information Value Date Recorded Sex Assigned at Female 12/13/2022 10:45 AM EST Gender Identity Female 12/13/2022 10:45 AM EST Sexual Orientation Straight 12/13/2022 10 :45 AM EST Job Start Date Occupation Industry Not on file Not on file Not on file documented as of this encounter Functional Status Functional Status Response Date of Assess ment Are you deaf or do you have serious difficulty h earing? No 01/07/2020 Are you blind or do you have serious difficulty seeing, even when wearing glasses? No 01/07/2020 Do you have serious difficul ty walking or climbing stairs? (5 years old or older) No 01/07/2020 Do you have difficulty dress ing or bathing? (5 years old or older) No 01/07/2020 Because of a physical, menta l, or emotional condition, do you have difficulty doing errands alone such as visiting a doctor s office or shopping? (15 years old or older) No 01/07/20 20 Cognitive Status Response Date of Assessm ent Because of a physical, menta l, or emotional condition, do you have serious difficulty concentrating, remembering, or making decisions? (5 years old or older) No 01/07/2020 documented as of this encounter Plan of Treatment Upcoming Encounters Date Type Department Care Team (Late st Contact Info) Description 03/10/2024 10:00 AM EDT Office Visit Otolaryngology [facility] [address] [place] [address] Te Vann, DO [address] [place] [address] 03/17/2024 11:00 AM EDT Cardiac Studies Cardiac Studies, [facility] [address] [place] [address] 03/24/2024 11:00 AM EDT Office Visit Cardiology, [facility] [address] [place] [address] Rosalee Cardoso CRNP [address] [place] [address] 03/29/2024 1:20 PM EDT Office Visit Dermatology [address] [place] [address] Coco Ivan PA-C [address] [place] [address] [place] [address] 04/05/2024 11:00 AM EDT Imaging Radiology [facility] [address] [place] [address] 05/07/2024 12:20 PM EDT Office Visit Family Practice [facility] [address] [facility] [place] [address] Willie Epstein MD [address] [place] [address] Scheduled Procedures Name Priority Associated Diagnoses Date/Ti me COLONOSCOPY FLEXIBLE PROXIMAL DIAGNOSTIC Recall History of colon polyps Health Maintenance Due Date Last Done Comments Cologuard 1999 Fecal Occult Blood Test 1999 Sigmoidoscopy 1999 Zoster Vaccines (1 of 2) 02/02/2004 Diabetic Foot Exam 01/26/2022 01/26/2021, 0 01/14/2019, 12/31/2017, Additional history exists COVID-19 Vaccine ( season) 2023 07/01/2022, 02/26/2022, 09/11/2021, Additional history exists HbA1c 10/02/2023 04/02/2023, 05/20, 02/26/2021, Additional history exists Diabetic Eye Exam 11/15/2023 11/15/2022, (Done elsewhere), 05/10/2020, Additional history exists Depression Screening 12/13/2023 12/13/2022, 03/21/2017 (Declined) Mammogram 04/02/2024 04/02/2023, 03/20, 01/22/2021, Additional history exists Colonoscopy 11/09/2024 11/09/2021, 05/20, 02/07/2012, Additional history exists Colorectal Cancer Screening 11/09/2024 Lipid Panel 05/23/2027 05/23/2022, 02/17, 03/23/2018, Additional history exists DTaP,Tdap,and Td Vaccines (3 - Td or Tdap) 12/29/2028 12/29/2018, 04/19/2009, 11/06/1998 Pneumococcal Vaccine: 65+ Years Completed 08/20/2019, 12/31/2017, 12/10/2016, Additional history exists RETIRED - COLONOSCOPY-EVERY 2 YRS AGES 18-100 Discontinued 11/09/2021, 06/03/2018, 02/07/2012, Additional history exists Hepatitis B Completed 05/28/2022, 03/20, 02/26/2022, Additional history exists Influenza Vaccine (FLU shot) Completed 07/29/2023, 07/09/2022, 08/03/2021, Additional history exists GARDASIL-HPV IMMUNIZATION SERIES Aged Out No longer eligible based on patient's age to complete this topic MENINGOCOCCAL (MENACTRA/MENVEO) Aged Out No longer eligible based on patient's age to complete this topic documented as of this encounter Medical Devices Implanted Type Area Dentist/Owner Device Identifier Shelf Expiration Date Model / Serial / Lot Cement Antibiotic Bone - [id number] Implanted:Qty: 3 on [place]28[place] [facility] [place] Hip VERONICA : ORTH[employer] 11/19/2013 6197-9-010 / / [id number] Prostalac Acetabular Cup Implanted:Qty: 1 on 04/28/2012 at [facility] Right: Hip SUBHA & SUBHA DEPUY 05/19/2017 1541-42-320 / / [id number] Prostalac Hip Stem Size 105mm Std Offset Implanted:Qty: 1 on 04/28/2012 at [facility] Right: Hip SUBHA & SUBHA DEPUY 10/19/2021 1541-01-000 / / [id number] Description:Prostalac Hip St em Size 105mm Offset (Depuy) Ball Artic Wiliam Brn 32 Plus5 - [id number] Implanted:Qty: 1 on 04/28/2012 at [facility] Right: Hip JNJ : DEPUY ORTHOPAED[employer] 10/19/2016 [id number] / / [id number] Rest Mod Prox Cone Body 23 +11 - [id number] Implanted:Qty: 1 on 04/14/2014 at [facility] Right: Hip [employer] : OR[employer] 10/19/2018 6276-1-123 / / [id number] Head Fem 28mm - [id number] Implanted:Qty: 1 on 04/14/2014 at [facility] Right: Hip [employer] : OR[employer] 08/19/2018 6570-0-228 / / [id number] Insert 28mm - [id number] Implanted:Qty: 1 on 04/14/2014 [place] [facility] [place]: Hip [employer] : OR[employer] 02/16/2019 1236-2-848 / / [id number] Cable/Sle Beaded D/M 20 Vit - [id number] Implanted:Qty: 1 on 04/14/2014 [place] [facility] [place]: Hip [employer] : [employer] 10/19/2017 6704-0-520 / / [id number] Cable/Sle Beaded D/M 20 Vit - [id number] Implanted:Qty: 1 on 04/14/2014 at [facility] Right: Hip [employer] : OR[employer] 10/19/2017 6704-0-520 / / [id number] Tritanium Revision Acetabular - [id number] Implanted:Qty: 1 on 04/14/2014 at [facility] Right: Hip [employer] : OR[employer] 05/19/2018 [id number] / / [id number] Screw Bone Osteolock 24 - [id number] Implanted:Qty: 1 on 04/14/2014 at [facility] Right: Hip [employer] : OR[employer] 02/16/2019 5260-5-024 / / [id number] Screw Bone Osteolock 35 - [id number] Implanted:Qty: 1 on 04/14/2014 at [place] [facility] [place]: Hip [employer] : OR[employer] 03/19/2017 5260-5-035 / / [id number] Liner 42mm - [id number] Implanted:Qty: 1 on 04/14/2014 at [facility] [place]: Hip [employer] : OR[employer] 11/19/2018 626-00-42E / / [id number] Hip S Mod Conical Dis [id number] - [id number] Implanted:Qty: 1 on 04/14/2014 [place] [facility] [place]: Hip [employer] : [employer] 12/17/2018 6276-7-017 / / [id number] documented as of this encounter Advance Directives Latest Code Status on File Code Status Date Activated Date Inactivated Comments Full Code 01/07/2020 5:31 PM 01/08/2020 7:32 PM This order reflects the patients wishes and were consensually agreed upon. Code Status History Code Status Date Activated Date Inactivated Comments Full Code 01/07/2020 5:26 PM 01/07/2020 5:31 PM This order reflects the patients wishes and were consensually agreed upon. Question Answer Comments Discussion of Advance Directives occurred with: Patient Full Code 04/14/2014 7:55 PM 04/20/2014 10:46 PM . Question Answer Comments Discussion of Advance Directives occurred with: Not Discussed Full Code 07/24/2012 8:53 AM 07/24/2012 9:44 PM This order reflects the patients wishes and were consensually agreed upon. Question Answer Comments Discussion of Advance Directives occurred with: Not Discussed Full Code 04/28/2012 7:02 PM 05/04/2012 8:23 PM This order reflects the patients wishes and were consensually agreed upon. Care Teams Marriage And Family Social Worker Relationship Specialty Start Date End Date Willie Epstein MD [address] [facility] [place] [address] PCP - General Family Medicine 11/22/16 documented as of this encounter
--- OUTSIDE RECORDS SUMMARY | 2024-02-27 09:30 | External Medical Summary | Summary of Care ---
Author Name Unknown Organization [facility] Address [address] [place] [address] Phone [phone] Care Team Providers Care Humanities Instructor Name Role Phone Willie Epstein MD Primary Care Provider + Reason for Visit * Reason Comments Re-Check Pt presents today fo r recheck on R hand and L arm * Evaluate & Treat - Unlimited Visits (Within 10 days (routine)) - Pending Review Specialty Diagnoses / Procedures Referred By Contac t Referred To Contact Dermatology Diagnoses Squamous cell cancer of skin of right hand Coco Ivan PA-C [address] [place] [address] [place] [address] Referral ID Status Reason Start Date Expiration Date Visits Requested Visits Authorized [id number] Pending Review Specialty Services Required 01/09/[phone] Encounter Details Date Type Department Care Team ([facility] st Contact Info) Description 02/23/2024 1:00 PM EDT Office Visit MOHS Surgery [facility] [address] [place] [address] Lj Maxwell MD [address] [place] [id number] Visit for wound check* Allergies Active Allergy Reactions Criticality Noted Date Comments Cefazolin Unknown 11/15/2023 Other Reaction(s): CAN'T REMEMBER Methylprednisolone Other (Please comment) 07/28/2017 Side effects c/w med (sweating, heart racing etc) Nitrofurantoin Monohyd Macro Hives 04/04/2014 Pantoprazole Unknown 11/15/2023 Other Reaction(s): CAN'T REMEMBER Sulfa Antibiotics Edema face/lips/tongue High 09/02/2008 documented as of this encounter (statuses as of 02/23/2024) Medications Medication Sig Dispensed Refills Start Date End Date Status INSULIN SYRINGE-NEEDLE U-100 30G X 1/2" 1 ML MISCIndications:DM type 2, goal A1c below 7 Use as directed 1 Box of 100 11 10/04/2008 Active RENAL MULTIVITAMIN/ZINC PO TABS None Entered 0 Active ASPIRIN 81 MG PO TABS 1 tablet daily 0 Active ONETOUCH ULTRASOFT LANCETS MISCIndications:Typ e 2 diabetes mellitus with hemoglobin A1c goal of less than 8.0% (HCC) Use as directed 2 times a day. [...] 5 2019 Active Blood Glucose Monitoring Suppl (ONETOUCH ULTRA 2) w/Device KIT Use to check blood sugar 2 times a day; E11.9. 1 Kit 0 10/22/2019 Active Glucose Blood (ONETOUCH ULTRA BLUE) STRP Use to check blood [...] as of this encounter (statuses as of 02/23/2024) Active Problems Problem Noted Date Diagnosed Date [...] many polyps Therapeutic opioid induced constipation 08/04/20 19 ESRD on dialysis 09/08/2016 Overview: 03/05 HCP forms given-wants . NEEDS further Living will 2017 consider transplant needs 20lb -[facility] [place] [facility]? T,R, S. Since January 2013. Spondylolisthesis [...] as of this encounter (statuses as of 02/23/2024) Resolved Problems Problem Noted Date Diagnosed Date Resolved Date Thoracic compression fracture 04/09/2021 04/13/2021 Overview: Mult levels 04/09 [facility] + lumbar Respiratory symptoms 01/08/2020 021 Fever of unknown origin (FUO) 01/07/2020 02/26/2021 Respiratory infection 01/07/20202020 Cellulitis 06/28/2016 09/08/2016 Abnormal vaginal bleeding 02/12/2016 Cellulitis 02/07/2016 09/08/2016 UTI (urinary tract infection), bacterial 04/19/2014 05/02/2014 Hypotension 04/15/2014 05/02/2014 Compression of lumbar vertebra 02/03/2013 06/07/2021 Overview: Mult levels noted 04/[address] [facility] [address] also thoracic CKD (chronic kidney [...] 140/90 08/25/200909/06 Overview: Modified 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 intermediate card tender current use of ant icoagulant therapy 04/19/2009 [...] s/p B/L stents Sees Dr. Angel in [place] for Urology Osteoarthritis of hip 2018 documented as of this encounter (statuses as of 02/23/2024) Immunizations Name Administration Dates Next Due COVID-19 mRNA, LNP-s, No Pre serve, 2-Dose Series (Pfizer) 09/11/2021,01/02/2021,12/12/2020 COVID-19, mRNA, LNP-s, PF, B ooster, [...] No 01/07/2020 documented as of this encounter Progress Notes * Lj Maxwell MD - 02/23/2024 1:12 PM EDT Patient returns 1 days after Mohs for recheck on healing. Denies drainage, pain, infection, difficulty healing. Exam: Limited examination preformed today to right hand. FTSG is intact and viable. She has swelling of her hand (predates surgery but it worse now). Plan: Elevate hand for most of the day Keep everything covered Return in 1 week Brittany Maxwell MD documented in this encounter Nursing Notes * Mckenna Hilario LPN - 02/23/2024 1:24 PM EDT Chief Complaint Patient presents with Re-Check Pt presents today for recheck on R hand and L arm Reapplied vaseline, adaptic, xeroform, and a light dressing per Alissa documented in this encounter Plan of Treatment Upcoming Encounters Date Type Department Care Team (Late st Contact Info) Description 03/01/2024 1:30 PM EDT Office Visit MOHS Surgery [facility] [address] [place] [address] Lj Maxwell MD [address] [place] [address] 03/10/2024 10:00 AM EDT Office Visit Otolaryngology [facility] [address] [place] [address] Te Vann DO [address] [place] [address] 03/17/2024 11:00 AM EDT Cardiac Studies Cardiac Studies, [facility] [address] [facility] [place] [address] 03/24/2024 11:00 AM EDT Office Visit Cardiology, [facility] [address] [place] [address] Rosalee Cardoso CRNP [address] [place] [address] 03/29/2024 1:20 PM EDT Office Visit Dermatology [address] [place] [address] Coco Ivan PA-C [address] [place] [address] [place] [address] 04/05/2024 11:00 AM EDT Imaging Radiology [facility] [address] [place] [address] 05/07/2024 12:20 PM EDT Office Visit Family Practice [facility] [address] [facility] [place] [address] Willie Epstein MD [address] [facility] [place] [address] Scheduled Procedures Name Priority Associated Diagnoses Date/Ti [...] this encounter Medical Devices Implanted Type Area Investigative Analyst Device Identifier Shelf Expiration Date Model / Serial / Lot Cement Antibiotic Bone - [id number] Implanted:Qty: 3 on 04/28/2012 at [facility] Right: Hip VERONICA : [employer] 11/19/2013 6197-9-010 / / [id number] Prostalac Acetabular Cup Implanted:Qty: 1 on 04/28/2012 at [place] [facility] Right: Hip SUBHA & [employer]HA DEPU[employer] 05/19/2017 1541-42-320 / / [id number] Prostalac Hip Stem Size 105mm Std Offset Implanted:Qty: 1 on 04/28/2012 at [place] [facility] Right: Hip SUBHA [employer]HA DEPUY 10/19/2021 1541-01-000 / / [id number] Description:Prostalac Hip St em Size 105mm Offset (Depuy) Ball Artic Wiliam Brn 32 Plus5 - [id number] Implanted:Qty: 1 on 04/28/2012 at [facility] Right: Hip JNJ : [employer] ORTH[employer] 10/19/2016 [id number] / / [id number] Rest Mod Prox Cone Body 23 +11 - [id number] Implanted:Qty: 1 on 04/14/2014 at [facility] Right: Hip [employer] : [employer] 10/19/2018 6276-1-123 / / [id number] Head Fem 28mm - [id number] Implanted:Qty: 1 on 04/14/2014 at [facility] Right: Hip [employer] : OR[employer] 08/19/2018 6570-0-228 / / [id number] Insert 28mm - [id number] Implanted:Qty: 1 on 04/14/2014 at [facility] Right: Hip [employer] : [employer] 02/16/2019 1236-2-848 / / [id number] Cable/Sle Beaded D/M 20 Vit - [id number] Implanted:Qty: 1 on 04/14/2014 at [facility] Right: Hip [employer] : [employer] 10/19/2017 6704-0-520 / / [id number] Cable/Sle Beaded D/M 20 Vit - [id number] Implanted:Qty: 1 on 04/14/2014 at [facility] Right: Hip VER[employer]ICA : OR[employer] 10/19/2017 6704-0-520 / / [id number] Tritanium Revision Acetabular - [id number] Implanted:Qty: 1 on 04/14/2014 at [facility] Right: Hip [employer]ICA : OR[employer] 05/19/2018 [id number] / / [id number] Screw Bone Osteolock 24 - [id number] Implanted:Qty: 1 on 04/14/2014 at [facility] Right: Hip [employer] : OR[employer] 02/16/2019 5260-5-024 / / [id number] Screw Bone Osteolock 35 - [id number] Implanted:Qty: 1 on 04/14/2014 at [facility] Right: Hip [employer]ICA : OR[employer] 03/19/2017 5260-5-035 / / [id number] Liner 42mm - [id number] Implanted:Qty: 1 on 04/14/2014 at [facility] Right: Hip [employer] : ORTH[employer] 11/19/2018 626-00-42E / / [id number] Hip S Mod Conical Dis [id number] - [id number] Implanted:Qty: 1 on 04/14/2014 at [facility] Right: Hip [employer] : OR[employer] 12/17/2018 6276-7-017 / / [id number] documented as of this encounter Visit Diagnoses Diagnosis Visit for wound check- Primary Encounter for other specified aftercare documented in this encounter Advance Directives Latest Code Status [...] and were consensually agreed upon. Care Teams Humanities Instructor Relationship Specialty Start Date End Date Willie Epstein MD [address] [place] [address] PCP - General Family Medicine 11/22/16 documented as of this encounter
--- OUTSIDE RECORDS SUMMARY | 2024-02-27 09:31 | External Medical Summary | Summary of Care ---
Author Name Unknown Organization [facility] Address [address] [place] [address] Phone [phone] Care Team Providers Care Lens Edge Grinder Machine Name Role Phone Willie Epstein MD Primary Care Provider + Reason for Visit * Reason Comments Mohs Surgery * Evaluate & Treat - Unlimited Visits (Within 10 days (routine)) - Pending Review Specialty Diagnoses / Procedures Referred By Ioana lopes Referred To Contact Dermatology Diagnoses Squamous cell cancer of skin of right hand Coco Ivan PA-C [address] [place] [address] [place] [address] Referral ID Status Reason Start Date Expiration Date Visits Requested Visits Authorized [id number] Pending Review Specialty Services Required 01/09/[phone] Encounter Details Date Type Department Care Team ([facility] st Contact Info) Description 02/12/2024 8:15 AM EDT Office Visit MOHS Surgery [facility] [place] [address] [place] [address] Lj Maxwell MD [address] [place] [id number] Squamous cell cancer of skin of right hand* Allergies Active Allergy Reactions Criticality Noted Date Comments Methylprednisolone Other (Please comment) 07/28/2017 Side effects c/w med (sweating, heart racing etc) Nitrofurantoin Monohyd Macro Hives 04/04/2014 Sulfa Antibiotics Edema face/lips/tongue High 09/02/2008 documented as of this encounter (statuses as of 02/12/2024) Medications Medication Sig Dispensed Refills Start Date [...] hemoglobin A1c goal of less than 8.0% ([facility]) Use as directed 2 times a day. 1 Box Dosing Unit 11 01/16/2017 Active cinacalcet (SENSIPAR) 30 MG Tablet Take 1 Tab by mouth daily with dinner. 90 Tab 3 11/07/2017 Active Insulin Pen Needle (BD PEN NEEDLE SHORT U/F) 31G X 8 MMIndications:DM type 2 nursing care encounter ([facility]) USE DIRECTED WITH LEVEMIR PENS TWICE A [...] UNTIL RESOLVED 50 g 1 02/02/2024 Active Cephalexin 500 MG Oral Capsule (Keflex) Take 1 Capsule by mouth in the morning and 1 Capsule before bedtime. Do all this for 7 days. 14 Capsule 0 02/12/2024 02/19/2024 Active documented as of this encounter (statuses as of 02/12/2024) Active Problems Problem Noted Date Diagnosed Date [...] will 2017 consider transplant needs 20lb -HD [place] [facility]? T,R, S. Since January 2013. Spondylolisthesis [...] as of this encounter (statuses as of 02/12/2024) Resolved Problems Problem Noted Date Diagnosed Date Resolved Date Thoracic compression fracture 04/09/2021 04/13/2021 Overview: Mult levels 04/09 [facility] + lumbar Respiratory symptoms 01/08/2020 021 Fever of unknown origin (FUO) 01/07/2020 02/26/2021 Respiratory infection 01/07/20202020 Cellulitis 06/28/2016 09/08/2016 Abnormal vaginal bleeding 02/12/2016 Cellulitis 02/07/2016 09/08/2016 UTI (urinary tract infection), bacterial 04/19/2014 05/02/2014 Hypotension 04/15/2014 05/02/2014 Compression of lumbar vertebra 02/03/2013 06/07/2021 Overview: Mult levels noted 04/09 [facility] CT also thoracic CKD (chronic kidney disease), [...] 140/90 08/25/200909/06 Overview: Modified 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 custodial current use of ant icoagulant therapy 04/19/2009 [...] s/p B/L stents Sees Dr. Angel in [place] for Urology Osteoarthritis of hip 2018 documented as of this encounter (statuses as of 02/12/2024) Immunizations Name Administration Dates Next Due COVID-19 mRNA, LNP-s, No Pre serve, 2-Dose Series (Pfizer) 09/11/2021,01/02/2021,12/12/2020 COVID-19, mRNA, LNP-s, PF, B ooster, 100mcg/0.5mg (Moderna) 02/26/2022 Covid-19, Mrna, Lnp-s, Pf, B ivalent, 30 Mcg, IM, 12 yrs and above (Pfizer) 07/01/2022 H1N1 2008 Influenza, IM 10/17/2009 Hepatitis B Vaccine, Recombi [...] on file documented as of this encounter Last Filed Vital Signs Vital Sign Reading Time Taken Comments Blood Pressure - - Pulse - - Temperature 36.5 C (97.7 F) 02/12/2024 8:09 AM ED T Respiratory Rate - - Oxygen Saturation - - Inhaled Oxygen Concentration - - Weight 80.7 kg (178 lb) 02/12/2024 8:09 AM EDT Height - - Body Mass Index 33.48 09/15/2023 10:25 AM EST documented in this encounter Functional Status Functional Status Response [...] Progress Notes * Lj Maxwell MD - 02/12/2024 9:25 AM EDT History: Meka Hess is a 69 year old year old patient seen at the request for consultation by [place] Liz for evaluation and management of SCC, right dorsal hand. Outpatient Medications Marked as Taking for the 02/12/24 encounter (Office Visit) with Lj Maxwell MD Medication Sig Citalopram Hydrobromide 20 MG Oral Tablet (CeleXA) TAKE 1 TABLET BY MOUTH EVERY DAY Betamethasone Dipropionate 0.05 % External Ointment APPLY 2X DAILY (OR MORE IF ITCHY INSTEAD OF SCRATCHING) TO AFFECTED PSORIASIS SPOTS ON ARMS/LEGS UNTIL RESOLVED Trulicity 0.75 MG/0.5ML Subcutaneous Solution Pen-injector (Dulaglutide) INJECT UNDER THE SKIN 0.75MG ONCE A WEEK . oxyCODONE HCl 15 MG Oral Tablet (Roxicodone) Take 1 Tablet by mouth every 8 hours as needed (pain). Simvastatin 20 MG Oral Tablet (Zocor) TAKE ONE TABLET BY MOUTH ONCE A DAY AT BEDTIME Triamcinolone Acetonide 0.1 % External Ointment (Aristocort) Apply 2x daily during week (off on weekends) to psoriasis under breasts until resolved, then when flaring rOPINIRole HCl 2 MG Oral Tablet (Requip) TAKE 1 TABLET BY MOUTH AT BEDTIME. 1-3 HOURS BEFORE BEDTIME WITH FOOD FOR RESTLESS LEGS Albuterol Sulfate HFA 108 (90 Base) MCG/ACT Inhalation Aerosol Solution TAKE 2 PUFFS BY MOUTH EVERY6 HOURS NEEDED FOR WHEEZE Gabapentin 100 MG Oral Capsule (Neurontin) TAKE 1 CAPSULE BY MOUTH DAILY + 1 DOSE EXTRA AFTER DIALYSIS EVERY 3 DAYS. Lisinopril 10 MG Oral Tablet (Prinivil) Take 1 Tablet (10 mg) by mouth in the morning. Breo Ellipta 200-25 MCG/INH Inhalation Aerosol Powder Breath Activated (fluticasone furoate-vilanterol) Inhale 1 Puff by mouth daily. Blood Glucose Monitoring Suppl (SocialTaggUCH ULTRA 2) w/Device KIT Use to check blood sugar 2 times a day; E11.9. Glucose Blood (ONETOUCH ULTRA BLUE) STRP Use to check blood sugar 2 times a day; E11.9. Insulin Pen Needle (BD PEN NEEDLE SHORT U/F) 31G X 8 MM USE DIRECTED WITH LEVEMIR PENS TWICE A DAY cinacalcet (SENSIPAR) 30 MG Tablet Take 1 Tab by mouth daily with dinner. ONETOUCH ULTRASOFT LANCETS MISC Use as directed 2 times a day. ASPIRIN 81 MG PO TABS 1 tablet daily RENAL MULTIVITAMIN/ZINC PO TABS None Entered INSULIN SYRINGE-NEEDLE U-100 30G X 1/2" 1 ML MISC Use as directed Review of patient's allergies indicates: Allergen Reactions Sulfa Antibiotics Edema face/lips/tongue Medrol [Methylprednisolone] Other (Please comment) Side effects c/w med (sweating, heart racing etc) Nitrofurantoin Monohyd Macro Hives ROS: The patient feels generally well and has no other skin complaints. Exam: Patient is alert, oriented and in no distress. Exam is of the skin and mucosa of right dorsal hand. The patient is alert and oriented and appears generally well. The patient's skin is remarkable for a 3.5 cm ulcerated plaque. (site confirmed withphoto taken at time of biopsy). Right hand is swollen due to having a fistula in her right arm. Impression: 1. SCC, right dorsal hand Plan: 1. Plan for Mohs surgery today. Risks, benefits and alternatives discussed with patient. Risks suchas (but not limited to) scar, infection, bleeding, hematoma, and recurrence disussed. Questions answered. Informed consent form discussed and signed. Photograph obtained of lesion for medical record. Patient identified, procedure verified, site identified and verified. Time out completed. Surgical removal of the lesion discussed with the patient (risks and benefits, including possibility of scarring, infection, recurrence or potential for further treatment). I have specifically identified the site with the patient. I have discussed the fact that the patient will have a scar after the procedure regardless of granulation or repair with sutures. I have discussed that the repair options can range from granulation in some cases to linear or curvilinear closures to larger flaps or grafts. There are sometimes flaps or grafts used that require multiple stages of surgery and will not be completed today , rather be completed over a series of appointments. I have discussed that occasionally due to location , size or depth of the lesion I may recommend consultation with and transfer of care for further removal or the the reconstruction to another provider such as ophthalmology surgery , plastic surgery, ENT surgery or surgical oncology. There are cases in which other testing such as imaging with MRI or CT scan or testing of lymph nodes is recommended because of the nature/ depth/ location of tumor seen during the removal. There is a risk of injury to nerves causing temporary or permanent numbness or the inability to move muscles fully such as the inability to lift eyebrows. Questions answered and verbal and written consent was obtained. Mohs resection today. Tumor cleared in 2 stages . Repaired with FTSG. See operative report for complete details. FTSG may not completely take due to swelling-- instructed to keep hand elevated as much as possible Started on post-op antibiotics Brittany Maxwell MD Associate, Department of Dermatology documented in this encounter Nursing Notes * Maricruz Gong LPN - 02/12/2024 8:10 AM EDT Chief Complaint Patient presents with Mohs Surgery Referral Doctor: SUMMER Ivan Hypertension History: No Diabetes History: Yes, refer to medication information for treatment. Thyroid History: No Bleeding Tendency: Yes, refer to medication information for treatment. Artificial Valve or Joint: No Pacemaker: no Defibrillator: no Hepatitis/HIV Exposure: No Smoking: no Consent signed yes DIALYSIS PATIENT documented in this encounter Plan of Treatment Upcoming Encounters Date Type Department Care Team (Late st Contact Info) Description 02/20/2024 10:30 AM EDT Nurse Only [facility] Surgery [address] [place] [address] Nurse Perez [place] [address] [address] [place] [address] 03/10/2024 10:00 AM EDT Office Visit Otolaryngology [facility] [address] [place] [address] Te Vann DO [address] [facility] [place] [address] 03/17/2024 11:00 AM EDT Cardiac Studies Cardiac Studies, [facility] [address] [facility] [place] [address] 03/24/2024 11:00 AM EDT Office Visit Cardiology, [facility] [address] [facility] [place] [address] Rosalee Cardoso CRNP 132 [facility] [place] [address] 03/29/2024 1:20 PM EDT Office Visit Dermatology [address] [place] [address] Coco Ivan PA-C [address] [place] [address] [place] [address] 04/05/2024 11:00 AM EDT Imaging Radiology [facility] [address] [place] [address] 05/07/2024 12:20 PM EDT Office Visit Family Practice [facility] [address] [place] [address] Willie Epstein MD [address] [place] [address] Scheduled Procedures Name Priority Associated Diagnoses Date/Ti me COLONOSCOPY FLEXIBLE PROXIMAL DIAGNOSTIC Recall History of colon polyps Health Maintenance Due Date Last Done Comments Zoster Vaccines (1 of 2) 02/02/2004 Diabetic Foot Exam 01/26/2022 01/26/2021, 0 01/14/2019, 12/31/2017, Additional history exists COVID-19 Vaccine (2022- season) 2023 07/01/2022, 02/26/2022, 09/11/2021, Additional history exists HbA1c 10/02/2023 04/02/2023, 05/20, 02/26/2021, Additional history exists Diabetic Eye Exam 11/15/2023 11/15/2022, (Done elsewhere), 05/10/2020, Additional history exists Depression Screening 12/13/2023 12/13/2022, 03/21/2017 (Declined) Mammogram 04/02/2024 04/02/2023, 03/20, 01/22/2021, Additional history exists COLONOSCOPY-EVERY 3 YRS AGES 18-100 11/09/2024 11/09/2021, 06/03/2018, 02/07/2012, Additional history exists Lipid Panel 05/23/2027 05/23/2022, 02/17, 03/23/2018, Additional history exists DTaP,Tdap,and Td Vaccines (3 - Td or Tdap) 12/29/2028 12/29/2018, 04/19/2009, 11/06/1998 Pneumococcal Vaccine: 65+ Years Completed 08/20/2019, 12/31/2017, 12/10/2016, Additional history exists COLONOSCOPY-EVERY 2 YRS AGES 18-100 Discontinued 11/09/2021, [...] this encounter Medical Devices Implanted Type Area Tipple Boss Device Identifier Shelf Expiration Date Model / Serial / Lot Cement Antibiotic Bone - [id number] Implanted:Qty: 3 on 04/28/2012 at [place] [facility] Right: Hip VERONICA : ORTHOPAEDICS 11/19/2013 6197-9-010 / / [id number] Prostalac Acetabular Cup Implanted:Qty: 1 on 04/28/[address] [facility] Right: Hip SUBHA & SUBHA DEPUY 05/19/2017 1541-42-320 / / [id number] Prostalac Hip Stem Size 105mm Std Offset Implanted:Qty: 1 on 04/28/[address] [facility] Right: Hip SUBHA & SUBHA DEPUY 10/19/2021 1541-01-000 / / [id number] Description:Prostalac Hip St em Size 105mm Offset (Depuy) Ball Artic Wiliam Brn 32 Plus5 - [id number] Implanted:Qty: 1 on 04/28/2012 at [place] [facility] Right: Hip JNJ : DEPUY ORTHOPAEDICS 10/19/2016 [id number] / / [id number] Rest Mod Prox Cone Body 23 +11 - [id number] Implanted:Qty: 1 on 04/14/2014 at [place] [facility] Right: Hip VERONICA : ORTHOPAEDICS 10/19/2018 6276-1-123 / / [id number] Head Fem 28mm - [id number] Implanted:Qty: 1 on 04/14/[address] [facility] Right: Hip VERONICA : ORTHOPAEDICS 08/19/2018 6570-0-228 / / [id number] Insert 28mm - [id number] Implanted:Qty: 1 on 04/14/2014 at [place] [facility] Right: Hip VERONICA : ORTHOPAEDICS 02/16/2019 1236-2-848 / / [id number] Cable/Sle Beaded D/M 20 Vit - [id number] Implanted:Qty: 1 on 04/14/[address] [facility] Right: Hip VERONICA : ORTHOPAEDICS 10/19/2017 6704-0-520 / / [id number] Cable/Sle Beaded D/M 20 Vit - [id number] Implanted:Qty: 1 on 04/14/2014 at [place] [facility] Right: Hip VERONICA : ORTHOPAEDICS 10/19/2017 6704-0-520 / / [id number] Tritanium Revision Acetabular - [id number] Implanted:Qty: 1 on 04/14/2014 at [place] [facility] Right: Hip VERONICA : ORTHOPAEDICS 05/19/2018 509-02-56E / / [id number] Screw Bone Osteolock 24 - [id number] Implanted:Qty: 1 on 04/14/[address] [facility] Right: Hip VERONICA : ORTHOPAEDICS 02/16/2019 5260-5-024 / / [id number] Screw Bone Osteolock 35 - [id number] Implanted:Qty: 1 on 04/14/[address] [facility] Right: Hip VERONICA : ORTHOPAEDICS 03/19/2017 5260-5-035 / / [id number] Liner 42mm - [id number] Implanted:Qty: 1 on 04/14/[address] [facility] Right: Hip VERONICA : ORTHOPAEDICS 11/19/2018 626-00-42E / / [id number] Hip S Mod Conical Dis 57p763 - [id number] Implanted:Qty: 1 on 04/14/[address] [facility] Right: Hip VERONICA : ORTHOPAEDICS 12/17/2018 6276-7-017 / / [id number] documented as of this encounter Visit Diagnoses Diagnosis Squamous cell cancer of skin of right hand- Primary documented in this encounter Advance Directives Latest [...] and were consensually agreed upon. Care Teams Lens Edge Grinder Machine Relationship Specialty Start Date End Date Willie Epstein MD [address] [place] [address] PCP - General Family Medicine 11/22/16 documented as of this encounter
--- OUTSIDE RECORDS SUMMARY | 2024-02-27 09:31 | External Medical Summary | Summary of Care ---
Author Name Unknown Organization [facility] Address [address] [place] [address] Phone [phone] Care Team Providers Care Coil Placer Name Role Phone Willie Epstein MD Primary Care Provider + Reason for Visit * Reason Comments Wound Recheck S/p Mohs 02/12/24 R d orsal hand (graft). Donor site on left forearm. Encounter Details Date Type Department Care Team (Late st Contact Info) Description 02/20/2024 10:30 AM EDT Nurse Only [facility] Surgery [facility] [address] [place] [address] Ana RUSSO, Nurse [address] [place] [address] Wound Recheck (S/p Mohs 02/12/24 R dorsal h... Allergies Active Allergy Reactions Criticality Noted Date [...] hemoglobin A1c goal of less than 8.0% ([facility]) Use as directed 2 times a day. 1 Box Dosing Unit 11 01/16/2017 Active cinacalcet (SENSIPAR) 30 MG Tablet Take 1 Tab by mouth daily with dinner. 90 Tab 3 11/07/2017 Active Insulin Pen Needle (BD PEN NEEDLE SHORT U/F) 31G X 8 MMIndications:DM type 2 nursing care encounter ([facility]) USE DIRECTED WITH LEVEMIR PENS TWICE A [...] will 2017 consider transplant needs 20lb -HD [place] [facility]? T,R, S. Since January 2013. Spondylolisthesis [...] 04/09/2021 04/13/2021 Overview: Mult levels 04/09 CT [facility] + lumbar Respiratory symptoms 01/08/2020 021 Fever of unknown origin (FUO) 01/07/2020 02/26/2021 Respiratory infection 01/07/20202020 Cellulitis 06/28/2016 09/08/2016 Abnormal vaginal bleeding 02/12/2016 Cellulitis 02/07/2016 09/08/2016 UTI (urinary tract infection), bacterial 04/19/2014 05/02/2014 Hypotension 04/15/2014 05/02/2014 Compression of lumbar vertebra 02/03/2013 06/07/2021 Overview: Mult levels noted 04/[address] [facility] [address] also thoracic CKD (chronic kidney [...] 140/90 08/25/200909/06 Overview: Modified 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 Angel in [place] for Urology Osteoarthritis of hip 2018 documented as of this encounter (statuses as of 02/20/2024) Immunizations Name Administration Dates Next Due COVID-19 mRNA, LNP-s, No Pre serve, 2-Dose Series ([employer]) 09/11/2021,01/02/2021,12/12/2020 COVID-19, mRNA, LNP-s, PF, B ooster, 100mcg/0.5mg (Moderna) 02/26/2022 Covid-19, Mrna, Lnp-s, Pf, B ivalent, 30 Mcg, IM, 12 yrs and above (Pfizer) 07/01/2022 H1N1 2009 Influenza, IM 10/17/2009 Hepatitis B Vaccine, Recombi nant, Adjuvanted, 20 mcg/mL (Heplisav-B) 05/28/2022,04/04/2022,02/26/2022,01/18 Hepatitis B, 0-19 yrs 03/07/2016, 016,11/02/2015,08/21,05/11/2013,04/13/2013,03/16/20 13 Hepatitis B, 20+ yrs 03/07/2016,12/09/19 16,11/02/2015,08/21,05/11/2013,04/13/2013,03/16/20 13 Pneumococcal Conjugate Vacc, 13 Valent (Prevnar) 12/31/2017,12/10/2016 [...] Influenza, Split, I IV3, With Preserve, Inj 08/20/2015,07/20/2014,07/06/2013,1003/2012,07/10/2011,07/23/2010,07/27/20 09,07/29/2008,08/26/2007,08/14/2006,1 11/04/2004,10/31/2004,08/17/2003,09/03,09/14/2001,10/01/2000 10/01/2001 Seasonal Influenza, Trivalen t, High Dose, No Preserve, IM 07/16/2017 TD - Tetanus/Diptheria (ADULT) 11/06/1998 TDAP (age 10 and older)(Boostrix) 12/29/2018 TDAP [...] as of this encounter Progress Notes * Mckenna Hilario LPN - 02/20/2024 12:15 PM EDT Error documented in this encounter Nursing Notes * Maria G Olvera LPN - 02/20/2024 11:31 AM EDT Chief Complaint Patient presents with Wound Recheck S/p Mohs 02/12/24 R dorsal hand (graft). Donor site on left forearm. Pt came in with no bandage on donor site, states it fell off yesterday. Wiped site with alcohol andapplied a layer of vaseline, covered with telfa and tape. Instructed Pt to keep it covered and change dressing daily until sutures dissolve. Sutured bolster was removed from R hand and was cleansed with a vinegar soak for about 10mins. Photo was obtained. Re-bandaged surgical site with another adapt, thin layer of mupirocin/vaseline, xeroform rapped over two dental rolls, telfa, cotton balls, tape, coban to hold in place until Friday02/23/24 for another recheck. Pt expresses her understanding. States she will leave the bandage on and she is going home to take it easy due to feeling woozy from dialysis this morning. Maria G Olvera LPN 02/20/2024 12:11 PM [facility] Surgery [facility] [address] [facility] [address] documented in this encounter Plan of Treatment Upcoming Encounters Date Type Department Care Team (Late st Contact Info) Description 03/10/2024 10:00 AM EDT Office Visit Otolaryngology [facility] [address] [place] [address] Te Vann DO [address] [facility] [place] [address] 03/17/2024 11:00 AM EDT Cardiac Studies Cardiac Studies, [facility] [address] [place] [address] 03/24/2024 11:00 AM EDT Office Visit Cardiology, [facility] [address] [place] [address] Rosalee Cardoso CRNP [address] [place] [address] 03/29/2024 1:20 PM EDT Office Visit Dermatology [address] [place] [address] Coco Ivan PA-C [address] [place] [address] [place] [address] 04/05/2024 11:00 AM EDT Imaging Radiology [facility] [address] [place] [address] 05/07/2024 12:20 PM EDT Office Visit Family Practice [facility] [address] [place] [address] Willie Epstein MD [address] [place] [address] Scheduled Procedures Name Priority Associated Diagnoses Date/Ti [...] this encounter Medical Devices Implanted Type Area Lithographic Printing Machinist Device Identifier Shelf Expiration Date Model / Serial / Lot Cement Antibiotic Bone - [id number] Implanted:Qty: 3 on 04/28/2012 at OR [facility] Right: Hip VERONICA : ORTHOPAEDICS 11/19/2013 6197-9-010 / / [id number] Prostalac Acetabular Cup Implanted:Qty: 1 on 04/28/2012 at OR [facility] Right: Hip SUBHA & SUBHA DEPUY 05/19/2017 1541-42-320 / / [id number] Prostalac Hip Stem Size 105mm Std Offset Implanted:Qty: 1 on 04/28/2012 at [facility] Right: Hip SUBHA & SUBHA DEPUY 10/19/2021 1541-01-000 / / [id number] Description:Prostalac Hip St em Size 105mm Offset (Depuy) Ball Artic Wiliam Brn 32 Plus5 - [id number] Implanted:Qty: 1 on 04/28/2012 at [facility] Right: Hip JNJ : DEPUY ORTHOPAEDICS 10/19/2016 [id number] / / [id number] Rest Mod Prox Cone Body 23 +11 - [id number] Implanted:Qty: 1 on 04/14/2014 at [facility] Right: Hip VERONICA : ORTHOPAEDICS 10/19/2018 6276-1-123 / / [id number] Head Fem 28mm - [id number] Implanted:Qty: 1 on 04/14/2014 at [facility] Right: Hip VERONICA : ORTHOPAEDICS 08/19/2018 6570-0-228 / / [id number] Insert 28mm - [id number] Implanted:Qty: 1 on 04/14/2014 at OR [facility] Right: Hip VERONICA : ORTHOPAEDICS 02/16/2019 1236-2-848 / / [id number] Cable/Sle Beaded D/M 20 Vit - [id number] Implanted:Qty: 1 on 04/14/2014 at OR [facility] Right: Hip VERONICA : ORTHOPAEDICS 10/19/2017 6704-0-520 / / [id number] Cable/Sle Beaded D/M 20 Vit - [id number] Implanted:Qty: 1 on 04/14/2014 at [facility] Right: Hip VERONICA : ORTHOPAEDICS 10/19/2017 6704-0-520 / / [id number] Tritanium Revision Acetabular - [id number] Implanted:Qty: 1 on 04/14/2014 at [facility] Right: Hip VERONICA : ORTHOPAEDICS 05/19/2018 509-02-56E / / [id number] Screw Bone Osteolock 24 - [id number] Implanted:Qty: 1 on 04/14/2014 at [facility] Right: Hip VERONICA : ORTHOPAEDICS 02/16/2019 5260-5-024 / / [id number] Screw Bone Osteolock 35 - [id number] Implanted:Qty: 1 on 04/14/2014 at [facility] Right: Hip VERONICA : ORTHOPAEDICS 03/19/2017 5260-5-035 / / [id number] Liner 42mm - [id number] Implanted:Qty: 1 on 04/14/2014 at [facility] Right: Hip VERONICA : ORTHOPAEDICS 11/19/2018 626-00-42E / / [id number] Hip S Mod Conical Dis 44u550 - [id number] Implanted:Qty: 1 on 04/14/2014 at [facility] Right: Hip VERONICA : ORTHOPAEDICS 12/17/2018 6276-7-017 / / [id number] documented as of this encounter Advance Directives [...] and were consensually agreed upon. Care Teams Coil Placer Relationship Specialty Start Date End Date Willie Epstein MD [address] [facility] [place] [address] PCP - General Family Medicine 11/22/16 documented as of this encounter
--- OUTSIDE RECORDS SUMMARY | 2024-02-27 09:31 | External Medical Summary | Summary of Care ---
Author Name Unknown Organization [facility] Address [address] [place] [address] Phone [phone] Care Team Providers Care Wash Test Checker Name Role Phone Willie Epstein MD Primary Care Provider + Reason for Visit * Reason Comments Wound Recheck S/p Mohs 02/12/24 R d orsal hand (graft). Donor site on left forearm. Encounter Details Date Type Department Care Team (Late st Contact Info) Description 02/20/2024 10:30 AM EDT Nurse Only [facility] Surgery [facility] [address] [place] [address] Ana RUSSO, Nurse Scenery [address] [place] [address] Wound Recheck (S/p Mohs 02/12/24 R dorsal [...] than 8.0% (FORMERLY [facility]) Use as directed 2 times a day. 1 Box Dosing Unit 11 01/16/2017 Active cinacalcet (SENSIPAR) 30 MG Tablet Take 1 Tab by mouth daily with dinner. 90 Tab 3 11/07/2017 Active Insulin Pen Needle (BD PEN NEEDLE SHORT U/F) 31G X 8 MMIndications:DM type 2 nursing care encounter ([facility]) USE DIRECTED WITH LEVEMIR PENS TWICE A [...] will 2017 consider transplant needs 20lb -HD [place] [facility]? T,R, S. Since January 2013. Spondylolisthesis [...] 04/09/2021 04/13/2021 Overview: Mult levels 04/09 CT [facility] + lumbar Respiratory symptoms 01/08/2020 021 Fever of unknown origin (FUO) 01/07/2020 02/26/2021 Respiratory infection 01/07/20202020 Cellulitis 06/28/2016 09/08/2016 Abnormal vaginal bleeding 02/12/2016 Cellulitis 02/07/2016 09/08/2016 UTI (urinary tract infection), bacterial 04/19/2014 05/02/2014 Hypotension 04/15/2014 05/02/2014 Compression of lumbar vertebra 02/03/2013 06/07/2021 Overview: Mult levels noted 04/[address] [facility] [address] also thoracic CKD (chronic kidney [...] 140/90 08/25/200909/06 Overview: Modified 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 Angel in [place] for Urology Osteoarthritis of hip 2018 documented as of this encounter (statuses as of 02/20/2024) Immunizations Name Administration Dates Next Due COVID-19 mRNA, LNP-s, No Pre serve, 2-Dose Series ([employer]) 09/11/2021,01/02/2021,12/12/2020 COVID-19, mRNA, LNP-s, PF, B ooster, [...] Olvera LPN 02/20/2024 12:11 PM MOHS Surgery [facility] [address] [facility] [address] documented in this encounter Plan of Treatment Upcoming Encounters Date Type Department Care Team (Late st Contact Info) Description 03/10/2024 10:00 AM EDT Office Visit Otolaryngology [facility] [address] [place] [address] Te Vann DO [address] [facility] [place] [address] 03/17/2024 11:00 AM EDT Cardiac Studies Cardiac Studies, [facility] [address] [place] [address] 03/24/2024 11:00 AM EDT Office Visit Cardiology, [facility] [address] [place] [address] Rosalee Cardoso CRNP [address] [place] [address] 03/29/2024 1:20 PM EDT Office Visit Dermatology [address] [place] [address] Coco Ivan PA-C [address] [place] [address] [place] [address] 04/05/2024 11:00 AM EDT Imaging Radiology [facility] [address] [place] [address] 05/07/2024 12:20 PM EDT Office Visit Family Practice [facility] [address] [place] [address] Willie Epstein MD [address] [place] [address] Scheduled Procedures Name Priority Associated Diagnoses Date/Ti [...] this encounter Medical Devices Implanted Type Area Operational Intelligence Analyst Device Identifier Shelf Expiration Date Model / Serial / Lot Cement Antibiotic Bone - [id number] [place] 3 [place] [facility] [place] VERONICA : ORTHOPAEDICS 11/19/2013 6197-9-010 / / [id number] Prostalac Acetabular Cup Implanted:Qty: 1 on 04[place]28/2012 [place] [facility] [place] SUBHA & SUBHA DEPUY 05/19/2017 1541-42-320 / / [id number] Prostalac Hip Stem Size 105mm Std Offset Implanted:Qty: 1 on 04/28/2012 at [facility] Right: Hip SUBHA & SUBHA DEPUY 10/19/2021 1541-01-000 / / [id number] Description:Prostalac Hip St em Size 105mm Offset (Depuy) Ball Artic Wiliam Brn 32 Plus5 - [id number] Implanted:Qty: 1 on 04/28/2012 at [facility] Right: Hip JNJ : DEPUY ORTHOPAEDICS 10/19/2016 [id number] / / [id number] Rest Mod Prox Cone Body 23 +11 - [id number] Implanted:Qty: 1 on 04/14/2014 at [facility] Right: Hip VERONICA : ORTHOPAEDICS 10/19/2018 6276-1-123 / / [id number] Head Fem 28mm - [id number] Implanted:Qty: 1 on 04/14/2014 at [facility] Right: Hip VERONICA : ORTHOPAEDICS 08/19/2018 6570-0-228 / / [id number] Insert 28mm - [id number] Implanted:Qty: 1 [place]14[place] [facility] [place] Hip VERONICA : ORTHOPAEDICS 02/16/2019 1236-2-848 / / [id number] Cable/Sle Beaded D/M 20 Vit - [id number] Implanted:Qty: 1 [place]14[place] [facility] [place] Hip VERONICA : ORTHOPAEDICS 10/19/2017 6704-0-520 / / [id number] Cable/Sle Beaded D/M 20 Vit - [id number] Implanted:Qty: 1 on 04/14/2014 at [facility] Right: Hip VERONICA : ORTHOPAEDICS 10/19/2017 6704-0-520 / / [id number] Tritanium Revision Acetabular - [id number] Implanted:Qty: 1 on 04/14/2014 at [facility] Right: Hip VERONICA : ORTHOPAEDICS 05/19/2018 509-02-56E / / [id number] Screw Bone Osteolock 24 - [id number] Implanted:Qty: 1 on 04/14/2014 at [facility] Right: Hip VERONICA : ORTHOPAEDICS 02/16/2019 5260-5-024 / / [id number] Screw Bone Osteolock 35 - [id number] Implanted:Qty: 1 on 04/14/2014 at [facility] Right: Hip VERONICA : ORTHOPAEDICS 03/19/2017 5260-5-035 / / [id number] Liner 42mm - [id number] Implanted:Qty: 1 on 04/14/2014 at [facility] Right: Hip VERONICA : ORTHOPAEDICS 11/19/2018 626-00-42E / / [id number] Hip S Mod Conical Dis 40k089 - [id number] Implanted:Qty: 1 on 04[place]14/[place] [facility] [place]: Hip VERONICA : ORTHOPAEDICS 12/17/2018 6276-7-017 / / [id number] documented as of this encounter Advance Directives [...] and were consensually agreed upon. Care Teams Wash Test Checker Relationship Specialty Start Date End Date Willie Epstein MD [address] [facility] [place] [address] PCP - General Family Medicine 11/22/16 documented as of this encounter
--- OUTSIDE RECORDS SUMMARY | 2024-02-27 09:32 | External Medical Summary | Summary of Care ---
Author Name Unknown Organization [facility] Address [address] [place] [address] Phone [phone] Care Team Providers Care Home Attendant Name Role Phone Willie Pizarro MD Primary Care Provider + Reason for Visit * Reason Comments eRx-Medication Refill Encounter Details Date Type Department Care Team (Late st Contact Info) Description 02/02/2024 Refill Family Practice [facility] [address] [place] [address] Willie Pizarro MD [address] [place] [address] Dyslipidemia, goal LDL below 70 Allergies Active Allergy Reactions Criticality Noted Date Comments Methylprednisolone Other (Please comment) 07/28/2017 Side effects c/w med (sweating, heart racing etc) Nitrofurantoin Monohyd Macro Hives 04/04/2014 Sulfa Antibiotics Edema face/lips/tongue High 09/02/2008 documented as of this encounter (statuses as of 02/03/2024) Medications Medication Sig Dispensed Refills Start Date End Date Status INSULIN SYRINGE-NEEDLE U-100 30G X 1/2" 1 ML MISCIndications:D M type 2, goal A1c below 7 Use as directed 1 Box of 100 11 8 Active Additional Information Patient not taking.Reported on 11/20/2023 RENAL MULTIVITAMIN/ZINC PO TABS None Entered 0 Active ASPIRIN 81 MG PO TABS 1 tablet daily 0 Active ONETOUCH ULTRASOFT LANCETS MISCIndications:T ype 2 diabetes mellitus with hemoglobin A1c goal of less than 8.0% ([facility]) Use as directed 2 times a day. 1 Box Dosing Unit 11 7 Active cinacalcet (SENSIPAR) 30 MG Tablet Take 1 Tab by mouth daily with dinner. 90 Tab 3 8 Active Insulin Pen Needle (BD PEN NEEDLE SHORT U/F) 31G X 8 MMIndications:DM type 2 nursing care encounter ([facility]) USE DIRECTED WITH LEVEMIR PENS TWICE A DAY 100 Each 5 9 Active Additional Information Patient not taking.Reported on 12/01/2023 Blood Glucose Monitoring Suppl (HALGI ULTRA 2) w/Device KIT Use to check blood sugar 2 times a day; E11.9. 1 Kit 0 0 Active Glucose Blood (GameletTOUCH ULTRA BLUE) STRP Use to check blood sugar 2 times a day; E11.9. 200 Box Dosing Unit 3 0 Active Breo Ellipta 200-25 MCG/INH Inhalation Aerosol Powder Breath Activated (fluticasone furoate-vilantero l)Indications:Sin obronchitis Inhale 1 Puff by mouth daily. 1 Each 3 1 Active Additional Information Patient not taking.Reported on 11/20/2023 Lisinopril 10 MG Oral Tablet (Prinivil) Take 1 Tablet (10 mg) by mouth in the morning. 30 Tablet 1 2 Active Gabapentin 100 MG Oral Capsule (Neurontin) TAKE 1 CAPSULE BY MOUTH DAILY + 1 DOSE EXTRA AFTER DIALYSIS EVERY 3 DAYS. 135 Capsule 2 3 Active Albuterol Sulfate HFA 108 (90 Base) MCG/ACT Inhalation Aerosol SolutionIndicatio ns:Bronchitis, complicated TAKE 2 PUFFS BY MOUTH EVERY 6 HOURS NEEDED FOR WHEEZE 18 g 0 3 Active rOPINIRole HCl 2 MG Oral Tablet (Requip) TAKE 1 TABLET BY MOUTH AT BEDTIME. 1-3 HOURS BEFORE BEDTIME WITH FOOD FOR RESTLESS LEGS 90 Tablet 3 3 Active Triamcinolone Acetonide 0.1 % External Ointment (Aristocort)Indic ations:Inverse psoriasis Apply 2x daily during week (off on weekends) to psoriasis under breasts until resolved, then when flaring 454 g 0 4 Active Simvastatin 20 MG Oral Tablet (Zocor)Indication s:Dyslipidemia, goal LDL below 70 TAKE ONE TABLET BY MOUTH ONCE A DAY AT BEDTIME 90 Tablet 0 4 Active oxyCODONE HCl 15 MG Oral Tablet (Roxicodone)Indic ations:MEDICATION USE AGREEMENT,Arthrit is of left shoulder region,Spondyloli sthesis of lumbosacral region,H/O bilateral hip replacements Take 1 Tablet by mouth every 8 hours as needed (pain). 90 Tablet 0 4 Active Trulicity 0.75 MG/0.5ML Subcutaneous Solution Pen-injector (Dulaglutide)Ruba cations:Type 2 diabetes mellitus with hemoglobin A1c goal of less than 8.0% (HCC) INJECT UNDER THE SKIN 0.75 MG ONCE A WEEK . 3 mL 5 4 Active Citalopram Hydrobromide 20 MG Oral Tablet (CeleXA) TAKE 1 TABLET BY MOUTH EVERY DAY 90 Tablet 1 4 Active Betamethasone Dipropionate 0.05 % External OintmentIndicatio ns:Plaque psoriasis APPLY 2X DAILY (OR MORE IF ITCHY INSTEAD OF SCRATCHING) TO AFFECTED PSORIASIS SPOTS ON ARMS/LEGS UNTIL RESOLVED 50 g 1 4 Active Citalopram Hydrobromide 20 MG Oral Tablet (CeleXA) TAKE 1 TABLET BY MOUTH EVERY DAY 90 Tablet 1 3 02/03/20 24 Discontinued documented as of this encounter (statuses as of 02/03/2024) Active Problems Problem Noted Date Diagnosed Date [...] will 2017 consider transplant needs 20lb -HD [place] [facility]? T,R, S. Since January 2013. Spondylolisthesis [...] as of this encounter (statuses as of 02/03/2024) Resolved Problems Problem Noted Date Diagnosed Date Resolved Date Thoracic compression fracture 04/09/2021 04/13/2021 Overview: Mult levels 04/09 [facility] + lumbar Respiratory symptoms 01/08/2020 021 Fever of unknown origin (FUO) 01/07/2020 02/26/2021 Respiratory infection 01/07/20202020 Cellulitis 06/28/2016 09/08/2016 Abnormal vaginal bleeding 02/12/2016 Cellulitis 02/07/2016 09/08/2016 UTI (urinary tract infection), bacterial 04/19/2014 05/02/2014 Hypotension 04/15/2014 05/02/2014 Compression of lumbar vertebra 02/03/2013 06/07/2021 Overview: Mult levels noted 04/09 [facility] CT also thoracic CKD (chronic kidney disease), [...] 140/90 08/25/200909/06 Overview: Modified 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 [facility] current use of ant icoagulant therapy 04/19/2009 [...] s/p B/L stents Sees Dr. Angel in [place] for Urology Osteoarthritis of hip 2018 documented as of this encounter (statuses as of 02/03/2024) Immunizations Name Administration Dates Next Due COVID-19 [...] No 01/07/2020 documented as of this encounter Miscellaneous Notes * Telephone Encounter - Alana Sutherland, [facility] - 02/03/2024 4:13 PM EDT Signed Prescriptions: Disp Refills Citalopram Hydrobromide 20 MG Oral Tablet *90 Tab*1 Sig: TAKE 1 TABLET BY MOUTH EVERY DAYAuthorizing Provider: WILLIE PIZARRO User: ALANA SUTHERLAND Prescriptions: Disp Refills Simvastatin 20 MG Oral Tablet (Zocor) 90 Tab*0 Sig: TAKE ONE TABLET BY MOUTH ONCE A DAY AT BEDTIMERefused By: ALANA SUTHERLAND for Refusal: Too soon documented in this encounter Plan of Treatment Upcoming Encounters Date Type Department Care Team (Late st Contact Info) Description 03/10/2024 10:00 AM EDT Office Visit Otolaryngology [facility] [address] [place] [address] Te Vann DO [address] [place] [address] 03/17/2024 11:00 AM EDT Cardiac Studies Cardiac Studies, [facility] [address] [place] [address] 03/24/2024 11:00 AM EDT Office Visit Cardiology, [facility] [address] [place] [address] Rosalee Cardoso CRNP [address] [place] [address] 03/25/2024 10:30 AM EDT Office Visit [facility] Surgery [facility] [address] [place] [address] Arlene La MD [address] [place] [address] 03/29/2024 1:20 PM EDT Office Visit Dermatology [address] [place] [address] Coco Ivan PA-C [address] [place] [address] [place] [address] 04/05/2024 11:00 AM EDT Imaging Radiology [facility] [address] [place] [address] 05/07/2024 12:20 PM EDT Office Visit Family Practice [facility] [address] [place] [address] Willie Pizarro MD [address] [place] [address] Scheduled Procedures Name Priority Associated Diagnoses Date/Ti [...] this encounter Medical Devices Implanted Type Area Superior Court Judge Device Identifier Shelf Expiration Date Model / Serial / Lot Cement Antibiotic Bone - [id number] Implanted:Qty: 3 on 04/28/2012 [place] [facility] [place] VERONICA : ORTHOPAEDICS 11/19/2013 6197-9-010 / / [id number] Prostalac Acetabular Cup Implanted:Qty: 1 on 04/28/2012 at [place] [facility] [place] Right: Hip SUBHA & SUBHA DEPUY 05/19/2017 1541-42-320 / / [id number] Prostalac Hip Stem Size 105mm Std Offset Implanted:Qty: 1 on 04/28/2012 at [place] [facility] [place] Right: Hip SUBHA & SUBHA DEPUY 10/19/2021 1541-01-000 / / [id number] Description:Prostalac Hip St em Size 105mm Offset (Depuy) Ball Artic Wiliam Brn 32 Plus5 - [id number] Implanted:Qty: 1 on 04/28/2012 [place] [facility] [place]: Hip JNJ : DEPUY ORTHOPAEDICS 10/19/2016 [id number] / / [id number] Rest Mod Prox Cone Body 23 +11 - [id number] Implanted:Qty: 1 on 04/14/2014 [place] [facility] [place]: Hip VERONICA : ORTHOPAEDICS 10/19/2018 6276-1-123 / / [id number] Head Fem 28mm - [id number] Implanted:Qty: 1 on 04/14/2014 at [facility] Right: Hip VERONICA : ORTHOPAEDICS 08/19/2018 6570-0-228 / / [id number] Insert 28mm - [id number] Implanted:Qty: 1 on 04/14/2014 at [facility] Right: Hip VERONICA : ORTHOPAEDICS 02/16/2019 1236-2-848 / / [id number] Cable/Sle Beaded D/M 20 Vit - [id number] Implanted:Qty: 1 on 04/14/2014 at [facility] Right: Hip VERONICA : ORTHOPAEDICS 10/19/2017 6704-0-520 / / [id number] Cable/Sle Beaded D/M 20 Vit - [id number] Implanted:Qty: 1 on 04/14/2014 at [facility] Right: Hip VERONICA : ORTHOPAEDICS 10/19/2017 6704-0-520 / / [id number] Tritanium Revision Acetabular - [id number] Implanted:Qty: 1 on 04/14/2014 at [facility] Right: Hip VERONICA : ORTHOPAEDICS 05/19/2018 509-02-56E / / [id number] Screw Bone Osteolock 24 - [id number] Implanted:Qty: 1 on 04/14/2014 at [facility] Right: Hip VERONICA : ORTHOPAEDICS 02/16/2019 5260-5-024 / / [id number] Screw Bone Osteolock 35 - [id number] Implanted:Qty: 1 on 04/14/2014 at [facility] Right: Hip VERONICA : ORTHOPAEDICS 03/19/2017 5260-5-035 / / [id number] Liner 42mm - [id number] Implanted:Qty: 1 on 04/14/2014 at [facility] Right: Hip VERONICA : ORTHOPAEDICS 11/19/2018 626-00-42E / / [id number] Hip S Mod Conical Dis 52q466 - [id number] Implanted:Qty: 1 on 04/14/2014 at [facility] Right: Hip VERONICA : ORTHOPAEDICS 12/17/2018 6276-7-017 / / [id number] documented as of this encounter Visit Diagnoses Diagnosis Dyslipidemia, goal LDL below 70 Other and unspecified hyperlipidemia documented in this encounter Advance Directives Latest [...] and were consensually agreed upon. Care Teams Home Attendant Relationship Specialty Start Date End Date Willie Pizarro MD [address] [place] [address] PCP - General Family Medicine 11/22/16 documented as of this encounter
--- OUTSIDE RECORDS SUMMARY | 2024-02-27 09:32 | External Medical Summary | Summary of Care ---
Author Name Unknown Organization [facility] Address [address] [place] [address] Phone [phone] Care Team Providers Care Java Engineer Name Role Phone Willie Epstein MD Primary Care Provider + Reason for Visit * Reason Comments Return Visit Pt states she recent ly had a spotn removed on right hand. Positive for skin cancer. Wants to make sure that PCP office is aware Encounter Details Date Type Department Care Team (Late st Contact Info) Description 01/29/2024 1:40 PM EDT Office Visit Family Practice [facility] [address] [place] [address] Bianca Baron CRNP [address] [facility] [place] [address] SCC (squamous cell carcinoma), hand, right*; ESRD on dialysis (HCC); Generalized weakness Allergies Active Allergy Reactions Criticality Noted Date Comments Methylprednisolone Other (Please comment) 07/28/2017 Side effects c/w med (sweating, heart racing etc) Nitrofurantoin Monohyd Macro Hives 04/04/2014 Sulfa Antibiotics Edema face/lips/tongue High 09/02/2008 documented as of this encounter (statuses as of 01/29/2024) Medications Medication Sig Dispensed Refills Start Date End Date Status INSULIN SYRINGE-NEEDLE U-100 30G X 1/2" 1 ML MISCIndications:DM type 2, goal A1c below 7 Use as directed 1 Box of 100 11 10/04/2008 Active Additional Information Patient not taking.Reported on 11/20/2023 RENAL MULTIVITAMIN/ZINC PO TABS None Entered 0 Active ASPIRIN 81 MG PO TABS 1 tablet daily 0 Active ONETOUCH ULTRASOFT LANCETS MISCIndications:Ty pe 2 diabetes mellitus with hemoglobin A1c goal of less than 8.0% ([facility]) Use as directed 2 times a day. 1 Box Dosing Unit 11 01/16/2017 Active cinacalcet (SENSIPAR) 30 MG Tablet Take 1 Tab by mouth daily with dinner. 90 Tab 3 11/07/2017 Active Insulin Pen Needle (BD PEN NEEDLE SHORT U/F) 31G X 8 MMIndications:DM type 2 nursing care encounter ([facility]) USE DIRECTED WITH LEVEMIR PENS TWICE A DAY 100 Each 5 2019 Active Additional Information Patient not taking.Reported on 12/01/2023 Blood Glucose Monitoring Suppl (Hammerhead SystemsTOUCH ULTRA 2) w/Device KIT Use to check blood sugar 2 times a day; E11.9. 1 Kit 0 10/22/2019 Active Glucose Blood (ONETOUCH ULTRA BLUE) STRP Use to check blood sugar 2 times a day; E11.9. 200 Box Dosing Unit 3 10/22/2019 Active Breo Ellipta 200-25 MCG/INH Inhalation Aerosol Powder Breath Activated (fluticasone furoate-vilanterol )Indications:Sinob ronchitis Inhale 1 Puff by mouth daily. 1 Each 3 01/26/2021 Active Additional Information Patient not taking.Reported on [...] HFA 108 (90 Base) MCG/ACT Inhalation Aerosol SolutionIndication s:Bronchitis, complicated TAKE 2 PUFFS BY MOUTH EVERY 6 HOURS NEEDED FOR WHEEZE 18 g 0 04/17/2023 Active rOPINIRole HCl 2 MG Oral Tablet (Requip) TAKE 1 TABLET BY MOUTH AT BEDTIME. 1-3 HOURS BEFORE BEDTIME WITH FOOD FOR RESTLESS LEGS 90 Tablet 3 06/27/2023 Active Citalopram Hydrobromide 20 MG Oral Tablet (CeleXA) TAKE 1 TABLET BY MOUTH EVERY DAY 90 Tablet 1 07/18/2023 Active Trulicity 0.75 MG/0.5ML Subcutaneous Solution Pen-injector (Dulaglutide) INJECT UNDER THE SKIN 0.75 MG ONCE A WEEK . 6 mL 3 10/08/2023 Active Betamethasone Dipropionate 0.05 % External OintmentIndication s:Plaque psoriasis Apply 2x daily (or more if itchy instead of scratching) to affected psoriasis spots on arms/legs until resolved 50 g 0 12/01/2023 Active Triamcinolone Acetonide 0.1 % External Ointment (Aristocort)Indica tions:Inverse psoriasis Apply 2x daily during week (off on weekends) to psoriasis under breasts until resolved, then when flaring 454 g 0 12/01/2023 Active Simvastatin 20 MG Oral Tablet (Zocor)Indications :Dyslipidemia, goal LDL below 70 TAKE ONE TABLET BY MOUTH ONCE A DAY AT BEDTIME 90 Tablet 0 01/12/2024 Active oxyCODONE HCl 15 MG Oral Tablet (Roxicodone)Indica tions:MEDICATION USE AGREEMENT,Arthriti s of left shoulder region,Spondylolis thesis of lumbosacral region,H/O bilateral hip replacements Take 1 Tablet by mouth every 8 hours as needed (pain). 90 Tablet 0 01/29/2024 Active documented as of this encounter (statuses as of 01/29/2024) Active Problems Problem Noted Date Diagnosed Date [...] will 2017 consider transplant needs 20lb -HD [place] [facility]? T,R, S. Since January 2013. Spondylolisthesis [...] as of this encounter (statuses as of 01/29/2024) Resolved Problems Problem Noted Date Diagnosed Date Resolved Date Thoracic compression fracture 04/09/2021 04/13/2021 Overview: Mult levels 04/09 [facility] + lumbar Respiratory symptoms 01/08/2020 021 Fever of unknown origin (FUO) 01/07/2020 02/26/2021 Respiratory infection 01/07/20202020 Cellulitis 06/28/2016 09/08/2016 Abnormal vaginal bleeding 02/12/2016 Cellulitis 02/07/2016 09/08/2016 UTI (urinary tract infection), bacterial 04/19/2014 05/02/2014 Hypotension 04/15/2014 05/02/2014 Compression of lumbar vertebra 02/03/2013 06/07/2021 Overview: Mult levels noted 04/[address] [facility] CT also thoracic CKD (chronic [...] s/p B/L stents Sees Dr. Angel in [place] for Urology Osteoarthritis of hip 2018 documented as of this encounter (statuses as of 01/29/2024) Immunizations Name Administration Dates Next Due COVID-19 mRNA, LNP-s, No Pre serve, 2-Dose Series (Direct[employer]) 09/11/2021,01/02/2021,12/12/2020 COVID-19, mRNA, LNP-s, PF, B ooster, [...] Sign Reading Time Taken Comments Blood Pressure 112/60 01/29/2024 1:42 PM EDT Pulse 91 01/29/2024 1:42 PM EDT Temperature - - Respiratory Rate 16 01/29/2024 1:42 PM EDT Oxygen Saturation 95% 01/29/2024 1:42 PM EDT Inhaled Oxygen Concentration - - Weight - - Height - - Body Mass Index - - documented in this encounter Functional Status Functional [...] as of this encounter Progress Notes * Bianca Baron CRNP - 01/29/2024 2:07 PM EDT Images from the original note were not included. Follow up Family Medicine Visit History of Present Illness Meka Hess is a very pleasant 68 year old female with PMH listed below presenting with routine visit. Recently diagnosed with squamous cell carcinoma on dorsal aspect of right hand - MOHS surgery scheduled in March. She wants pcp office to be aware of her diagnosis. Just had dialysis, feeling tired. She reports some mood changes recently. Not as cheerful as she used to be with her declined health and SCC diagnosis. 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 3 kids, 1 granddaughter. Other Topics Concern Service No Blood Transfusions Yes Caffeine Concern No Occupational Exposure No Hobby Hazards No Sleep Concern No Stress Concern No Weight Concern Yes Special Diet Yes Back Care No Exercise Yes Comment: walks 3 times weekly Bike Helmet Not Asked Seat Belt Yes Self-Exams Yes Social History Narrative Likes-time with family. Social Determinants of Health Financial Resource Strain: Not on file Food Insecurity: No Food Insecurity (04/30/2023) Hunger Vital Sign Worried About Running Out of Food in the Last Year: Never true Ran Out of Food in the Last Year: Never true Transportation Needs: Not on file Physical Activity: Not on file Stress: Not on file Social Connections: Not on file Intimate Partner Violence: Not on file Housing Stability: Not on file PMH: Past Medical History: Diagnosis Date Age-related osteoporosis without current pathological fracture 12/19/202201/09 DEXA Benign neoplasm of colon 03/23/07 hyperplastic polyp--repeat 3 years Benign neoplasm of colon 02/07/12 adenomatous polyp Calculus of kidney now s/p stents - sees Dr. Angel in [place] for Urology DM type 2, goal HbA1c < 8% ([facility]) age 37 started as gestational diabetes, goal adjusted d/t reactive hypoglycemia from insulin over time. Dyslipidemia, goal LDL below 70 ESRD on dialysis ([facility]) 09/08/2016 Dr Nugent--HD [place] [facility]? T,R, S. Since January 2013. 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 (HCC) Thoracic compression fracture (HCC) 04/09/2021 Mult levels 04/09 [facility] + lumbar Unilateral inguinal hernia with gangrene required urgent repair - had bowel obstruction Vitamin D deficiency Well adult exam 08/04/201905/2018 many polyps Past Surgical History: Procedure Laterality Date ART EMBO AX/BRACH/INNOM/SUBCL 04/15/2014 THROMBECTOMY EMBOLECTOMY AXILLARY ARTERY ARM INCISION performed by Jeffrey Sutherland MD [place] [facility] ARTHROCENT ASP &/OR INJ MAJOR JX/BURSA W/O US 07/20/2013 ARTHROCENTESIS OR INJECTION MAJOR JOINT performed by Jason Ruffin MD at [place] [facility] AV ACCESS, DIRECT ANASTOMOSIS 04/15/2014 ARTERIOVENOUS ANASTOMOSIS OPEN DIRECT ANY SITE performed by Jeffrey Sutherland MD at [place] [facility] BREAST BIOPSY Left benign DELIVERY x 2 COLONOSCOPY 03/23/2007 normal, repeat 2009 COLONOSCOPY 02/07/2012 adenomatous polyp COLONOSCOPY, DIAGNOSTIC (RECTUM) 06/03/2018 adenomatous polyps, repeat 2 yrs/[facility] COLONOSCOPY, DIAGNOSTIC (RECTUM) 11/09/2021 adenomatous polyps, fair prep, repeat 3 yrs / [facility] CYSTOSCOPY 06/21/2010 CYSTOSCOPY 12/04/2011 stent placement CYSTOSCOPY 01/22/2012 ull CYSTOSCOPY/STONE REMOVAL 06/14/2010 left ureteroscopy,removal nephrostomy tube,double J stent EGD, FLEXIBLE, W/BIOPSY 12/15/2012 inflammation to stomach INFORMATION laporoscopy X4 for endometriosis INSER MILA CAT,W/O PUMP;5YR/OLD 05/01/2012 INSERT TUNNELED CENTRAL VENOUS CATHETER* performed by Mark Otero MD at [place] [facility] INSER MILA CAT,W/O PUMP;5YR/OLD 04/16/2014 INSERT TUNNELED CENTRAL VENOUS CATHETER AGE 5 OR OLDER performed by Jeffrey Sutherland MD at [facility] INSERT CANNULA, ARTERY-VEIN, REAL ESTATE BRANCH MANAGER 07/24/2012 ARTERIOVENOUS ANASTOMOSIS OPEN FOREARM VEIN performed by Juliane Real MD at [facility] IR VENOUS FISTULOGRAM Right 01/12/2021 Dr Mena cleared stenosis AV Fistula RUE. [facility] OTHER 01/02/2024 right venous aneurysm resection w/prosthetic graft. Dr Vicenta Mena, [facility] RECONSTRUCTION OF HIP SOCKET 04/28/2012 ACETABULOPLASTY RESECTION FEMORAL HEAD GIRDLESTONE performed by Jason Ruffin MD at [facility] REMOV MILA JAQUELINE FRANCISCA ACC DEV,WITH 07/08/2012 REMOVAL TUNNELED CENTRAL VENOUS ACCESS W/WO PORT performed by Geremias Sánchez MD at [place] [facility] REMOVAL OF DEEP SUPPORT IMPLANT 04/14/2014 REMOVAL OF IMPLANT DEEP performed by Jason Ruffin MD at [facility] REMOVAL OF KIDNEY STONE, OVER 2CM 06/18/2010 stents placed REMOVE GALLBLADDER REMOVE/INSERT DRUG IMPLANT 04/28/2012 INSERT AND/OR REMOVAL NON BIODEGRADABLE DRUG DELIVERY IMPLANT performed by Jason Ruffin MD at [facility] REMOVE/INSERT DRUG IMPLANT 04/14/2014 INSERT AND/OR REMOVAL NON BIODEGRADABLE DRUG DELIVERY IMPLANT performed by Jason Ruffin MD at [facility] REPAIR INITIAL INGUINAL HERNIA REDUCIBLE AGE 5 OR MORE 06/2008 incarcerated left inguinal hernia with secondary infection requiring a wound vac. REVISE HIP SURGERY TO TOTAL REPLACE 04/14/2014 CONVERSION PREVIOUS HIP SURGERY TO TOTAL HIP performed by Jason Ruffin MD at [facility] UNLISTED LAPAROSCOPY;HERNIA left 1994 UROLOGY SURGERY PROCEDURE NEC x4 total at [facility] B/L ureters, stents placed No outpatient medications have been marked as taking for the 01/29/24 encounter (Office Visit) with Bianca Baron CRNP. Review of patient's allergies indicates: Allergen Reactions Sulfa Antibiotics Edema face/lips/tongue Medrol [Methylprednisolone] Other (Please comment) Side effects c/w med (sweating, heart racing etc) Nitrofurantoin Monohyd Macro Hives Most Recent Immunizations Administered Date(s) Administered COVID-19 mRNA, LNP-s, No Preserve, 2-Dose Series (Pfizer) 09/11/2021 COVID-19, mRNA, LNP-s, PF, Booster, 100mcg/0.5mg (Moderna) 02/26/2022 Covid-19, Mrna, Lnp-s, Pf, Bivalent, 30 Mcg, IM, 12 yrs and above (Pfizer) 07/01/2022 H1N1 2009 Influenza, IM 10/17/2009 Hepatitis B Vaccine, Recombinant, Adjuvanted, 20 mcg/mL (Heplisav-B) 05/28/2022 Hepatitis B, 0-19 yrs 03/07/2016 Hepatitis B, 20+ yrs 03/07/2016 Iron Sucrose 12/09/2012 Pneumococcal Conjugate Vacc, 13 Valent (Prevnar) 12/31/2017 Pneumococcal Polysaccharide PPV23 (Pneumovax) 08/20/2019 Seasonal Influenza, PF, 6 M & above, IM , (FluLaval or Fluzone) 08/03/2018 Seasonal Influenza, QUAD, with Preserv, 6 mons & Above, 0.5 mL, IM 07/09/2022 Seasonal Influenza, Quadrivalent Hd, 65+ Yrs 08/03/2021 Seasonal Influenza, Recombinant, RIV3, No Preserve 07/21/2019 Seasonal Influenza, Recombinant, RIV4, PF, (Flublock) 07/29/2023 Seasonal Influenza, Split, IIV3, With Preserve, Inj 08/20/2015 Seasonal Influenza, Trivalent, High Dose, No Preserve, IM 07/16/2017 TD - Tetanus/Diptheria (ADULT) 11/06/1998 TDAP (age 10 and older)(Boostrix) 12/29/2018 TDAP (age 11 and older)(Adacel) 04/19/2009 Review of Systems: Physical Exam BP 112/60 | Pulse 91 | Resp 16 | LMP 11/16/2000 | SpO2 95% Physical Exam Constitutional: Appearance: Normal appearance. HENT: Head: Normocephalic. Cardiovascular: Rate and Rhythm: Normal rate and regular rhythm. Heart sounds: Murmur heard. Friction rub: systolic. Pulmonary: Effort: Pulmonary effort is normal. Breath sounds: Normal breath sounds. Musculoskeletal: General: No swelling. Cervical back: Neck supple. Skin: General: Skin is warm. Comments: +SCC Neurological: Mental Status: She is alert and oriented to person, place, and time. Psychiatric: Mood and Affect: Mood normal. Assessment and Plan 1. SCC (squamous cell carcinoma), hand, right MOHS surgery scheduled 2. ESRD on dialysis (HCC) 3. Generalized weakness Ambulates with a walker +some mood change She will consider psychology counseling in our office Wrap-Up I have advised the patient to call our office with any worsening or new symptoms. I spent a total of 20-29 minutes (exact time 20 mins) on the date of service in preparation, delivery, and documentation of the care provided to Meka Hess excluding any time spent in the performance of separately billed services. Bianca Baron, MSN, [facility] documented in this encounter Nursing Notes * Shanelle Carlson LPN - 01/29/2024 1:42 PM EDT The patient has been properly identified by confirmation of name and date of . Chief Complaint Patient presents with Return Visit Pt states she recently had a spotn removed on right hand. Positive for skin cancer. Wants to make sure that PCP office is aware documented in this encounter Plan of Treatment Upcoming Encounters Date Type Department Care Team (Late st Contact Info) Description 03/10/2024 10:00 AM EDT Office Visit Otolaryngology [facility] [address] [place] [address] Te Vann DO [address] [place] [place] [address] 03/17/2024 11:00 AM EDT Cardiac Studies Cardiac Studies, Prashant Se[place], [place] [address] [place] [address] 03/24/2024 11:00 AM EDT [facility] [address] [place] [address] Rosalee Cardoso CRNP [address] [place] [address] 03/25/2024 10:30 AM EDT Office Visit [facility] [address] [place] [address] Arlene La MD [address] [facility] [address] 03/29/2024 1:20 PM EDT Office Visit Dermatology [address] [place] [address] Coco Ivan PA-C [address] [place] [address] [place] [address] 04/05/2024 11:00 AM EDT Imaging Radiology [address] [place] [address] 05/07/2024 12:20 PM EDT Office Visit Family Practice [facility] [address] [place] [address] Willie Epstein MD [address] [place] [address] Scheduled Procedures Name Priority Associated Diagnoses Date/Ti me COLONOSCOPY FLEXIBLE PROXIMAL DIAGNOSTIC Recall History of colon polyps Health Maintenance Due Date Last Done Comments Zoster Vaccines (1 of 2) 02/02/2004 Diabetic Foot Exam 01/26/2022 01/26/2021, 0 01/14/2019, 12/31/2017, Additional history exists COVID-19 Vaccine ( season) 2023 07/01/2022, 02/26/2022, 09/11/2021, Additional history exists HbA1c 10/02/2023 04/02/2023, 0806/2021, 02/26/2021, Additional history exists Diabetic Eye Exam [...] this encounter Medical Devices Implanted Type Area Merchandising Stock Associate Device Identifier Shelf Expiration Date Model / Serial / Lot Cement Antibiotic Bone - [id number] Implanted:Qty: 3 on 04/28/2012 [place] [facility] Right: Hip VERONICA : ORTHOPAED[employer] 11/19/2013 6197-9-010 / / [id number] Prostalac Acetabular Cup Implanted:Qty: 1 on 04/28/2012 at [place] [facility] Right: Hip SUBHA & SUBHA DEPUY 05/19/2017 1541-42-320 / / [id number] Prostalac Hip Stem Size 105mm Std Offset Implanted:Qty: 1 on 04/28/2012 at [place] [facility] Right: Hip SUBHA & SUBHA DEPUY 10/19/2021 1541-01-000 / / [id number] Description:Prostalac Hip St em Size 105mm Offset (Depuy) Ball Artic Wiliam Brn 32 Plus5 - [id number] Implanted:Qty: 1 on 04/28/2012 at [facility] Right: Hip JNJ : DEPUY ORTHOPAEDICS 10/19/2016 [id number] / / [id number] Rest Mod Prox Cone Body 23 +11 - [id number] Implanted:Qty: 1 on 04/14/2014 at [place] [facility] [place]: Hip VERONICA : ORTHOPA[employer] 10/19/2018 6276-1-123 / / [id number] Head Fem 28mm - [id number] Implanted:Qty: 1 on 04/14/2014 at [facility] Right: Hip VERONICA : ORTHOPA[employer] 08/19/2018 6570-0-228 / / [id number] Insert 28mm - [id number] Implanted:Qty: 1 on 04/14/2014 at [place] [facility] Right: Hip [employer]ONICA : ORTHOPA[employer] 02/16/2019 1236-2-848 / / [id number] Cable/Sle Beaded D/M 20 Vit - [id number] Implanted:Qty: 1 on 04/14/2014 at [place] [facility] [place]: Hip VERONICA : ORTHOPAEDICS 10/19/2017 6704-0-520 / / [id number] Cable/Sle Beaded D/M 20 Vit - [id number] Implanted:Qty: 1 on 04/14/2014 at [place] [facility] Right: Hip VERONICA : ORTHOPAEDICS 10/19/2017 6704-0-520 / / [id number] Tritanium Revision Acetabular - [id number] Implanted:Qty: 1 on 04/14/2014 at [place] [facility] [place]: Hip VERONICA : ORTHOPAEDICS 05/19/2018 [id number] / / [id number] Screw Bone Osteolock 24 - [id number] Implanted:Qty: 1 on 04/14/2014 at [facility] Right: Hip VERONICA : ORTHOPAEDICS 02/16/2019 5260-5-024 / / [id number] Screw Bone Osteolock 35 - [id number] Implanted:Qty: 1 on 04/14/2014 at [place] [facility] Right: Hip [employer]ONICA : ORTHOPAEDICS 03/19/2017 5260-5-035 / / [id number] Liner 42mm - [id number] Implanted:Qty: 1 on 04/14/2014 at [place] [facility] Right: Hip VERONICA : ORTHOPA[employer]ICS 11/19/2018 [id number] / / [id number] Hip S Mod Conical Dis [id number] - [id number] Implanted:Qty: 1 on 04/14/2014 at [place] [facility] [place]: Hip [employer]ONICA : ORTHOPAED[employer] 12/17/2018 6276-7-017 / / [id number] documented as of this encounter Visit Diagnoses Diagnosis SCC (squamous cell carcinoma), hand, right- Primary ESRD on dialysis (HCC) End stage renal disease Generalized weakness Other malaise and fatigue documented in this encounter Advance Directives Latest [...] and were consensually agreed upon. Care Teams Java Engineer Relationship Specialty Start Date End Date Willie Epstein MD [address] [place] [address] PCP - General Family Medicine 11/22/16 documented as of this encounter
--- OUTSIDE RECORDS SUMMARY | 2024-02-27 09:32 | External Medical Summary | Summary of Care ---
Author Name Unknown Organization [facility] Address [address] [place] [address] Phone [phone] Care Team Providers Care Manufacturer Name Role Phone Willie Epstein MD Primary Care Provider + Reason for Visit * Reason Comments eRx-Medication Refill Encounter Details Date Type Department Care Team ([facility] st Contact Info) Description 02/02/2024 Refill Dermat[address] [place] [address] Cr Ivan PA-C [address] [place] [address] [place] [address] Plaque psoriasis Allergies Active Allergy Reactions Criticality Noted Date Comments Methylprednisolone Other (Please comment) 07/28/2017 Side effects c/w med (sweating, heart racing etc) Nitrofurantoin Monohyd Macro Hives 04/04/2014 Sulfa Antibiotics Edema face/lips/tongue High 09/02/2008 documented as of this encounter (statuses as of 02/02/2024) Medications Medication Sig Dispensed Refills Start Date End Date Status INSULIN SYRINGE-NEEDLE U-100 30G X 1/2" 1 ML MISCIndications:D M type 2, goal A1c below 7 Use as directed 1 Box of 100 11 10/04/200 8 Active Additional Information Patient not taking.Reported on 11/20/2023 RENAL MULTIVITAMIN/ZINC PO TABS None Entered 0 Active ASPIRIN 81 MG PO TABS 1 tablet daily 0 Active ONETOUCH ULTRASOFT LANCETS MISCIndications:T ype 2 diabetes mellitus with hemoglobin A1c goal of less than 8.0% ([facility]) Use as directed 2 times a day. 1 Box Dosing Unit 11 7 Active cinacalcet (SENSIPAR) 30 MG Tablet Take 1 Tab by mouth daily with dinner. 90 Tab 3 8 Active Insulin Pen Needle (BD PEN NEEDLE SHORT U/F) 31G X 8 MMIndications:DM type 2 nursing care encounter ([facility]) USE DIRECTED WITH LEVEMIR PENS TWICE A DAY 100 Each 5 9 Active Additional Information Patient not taking.Reported on 12/01/2023 Blood Glucose Monitoring Suppl ([place] ULTRA 2) w/Device KIT Use to check blood sugar 2 times a day; E11.9. 1 Kit 0 0 Active Glucose Blood (Pressure BioSciencesUCH ULTRA BLUE) STRP Use to check blood [...] RESTLESS LEGS 90 Tablet 3 3 Active Citalopram Hydrobromide 20 MG Oral Tablet (CeleXA) TAKE 1 TABLET BY MOUTH EVERY DAY 90 Tablet 1 3 Active Trulicity 0.75 MG/0.5ML Subcutaneous Solution Pen-injector (Dulaglutide) INJECT UNDER THE SKIN 0.75 MG ONCE A WEEK . 6 mL 3 3 Active Triamcinolone Acetonide 0.1 % [...] needed (pain). 90 Tablet 0 4 Active Betamethasone Dipropionate 0.05 % External OintmentIndicatio ns:Plaque psoriasis APPLY 2X DAILY (OR MORE IF ITCHY INSTEAD OF SCRATCHING) TO AFFECTED PSORIASIS SPOTS ON ARMS/LEGS UNTIL RESOLVED 50 g 1 4 Active Betamethasone Dipropionate 0.05 % External OintmentIndicatio ns:Plaque psoriasis Apply 2x daily (or more if itchy instead of scratching) to affected psoriasis spots on arms/legs until resolved 50 g 0 4 02/02/20 24 Discontinued documented as of this encounter (statuses as of 02/02/2024) Active Problems Problem Noted Date Diagnosed Date [...] will 2017 consider transplant needs 20lb -HD [facility]? T,R, S. Since January 2013. Spondylolisthesis [...] as of this encounter (statuses as of 02/02/2024) Resolved Problems Problem Noted Date Diagnosed Date Resolved Date Thoracic compression fracture 04/09/2021 04/13/2021 Overview: Mult levels 04/09 CT [facility] + lumbar Respiratory symptoms 01/08/2020 021 Fever of unknown origin (FUO) 01/07/2020 02/26/2021 Respiratory infection 01/07/20202020 Cellulitis 06/28/2016 09/08/2016 Abnormal vaginal bleeding 02/12/2016 Cellulitis 02/07/2016 09/08/2016 UTI (urinary tract infection), bacterial 04/19/2014 05/02/2014 Hypotension 04/15/2014 05/02/2014 Compression of lumbar vertebra 02/03/2013 06/07/2021 Overview: Mult levels noted 04/[address] [facility] [address] also thoracic CKD (chronic kidney disease), [...] 140/90 08/25/200909/06 Overview: Modified 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 Angel in [place] for Urology Osteoarthritis of hip 2018 documented as of this encounter (statuses as of 02/02/2024) Immunizations Name Administration Dates Next Due COVID-19 [...] encounter Miscellaneous Notes * Telephone Encounter - Cr Ivan PA-C - 02/02/2024 11:58 AM EDT Signed Prescriptions: Disp Refills Betamethasone Dipropionate 0.05 % External*50 g 1 Sig: APPLY 2XDAILY (OR MORE IF ITCHY INSTEAD OF SCRATCHING) TO AFFECTED PSORIASIS SPOTS ON ARMS/LEGS UNTIL RESOLVEDAuthorizing Provider: CR IVAN * Telephone Encounter - Elda Ma LPN - 02/02/2024 11:46 AM EDTPending Prescriptions: Disp Refills Betamethasone Dipropionate 0.05 % External*45 g Sig: Apply 2x daily (or more if itchy instead of scratching) to affected psoriasis spots on arms/legs until resolved documented in this encounter Plan of Treatment Upcoming Encounters Date Type Department Care Team (Late st Contact Info) Description 03/10/2024 10:00 AM EDT Office Visit Otolaryngology [facility] [address] [address] Te Vann DO [address] [place] [address] 03/17/2024 11:00 AM EDT Cardiac Studies Cardiac Studies, [facility] [address] [place] [address] [address] 03/24/2024 11:00 AM EDT Office Visit Cardiology, [facility] [address] [place] [address] Rosalee Cardoso CRNP [address] [place] [address] 03/25/2024 10:30 AM EDT Office Visit [facility] Surgery [facility] [address] [place] [address] Arlene La MD [address] [facility] [address] 03/29/2024 1:20 PM EDT Office Visit Dermatology [address] [place] [address] Cr Ivan PA-C [address] [place] [address] [place] [address] 04/05/2024 11:00 AM EDT Imaging Radiology [facility] 1st [facility] [address] [place] [address] 05/07/2024 12:20 PM EDT Office Visit Family Practice [facility] [address] [place] [address] Willie Epstein MD [address] [place] [address] Scheduled Procedures Name Priority Associated Diagnoses Date/Ti [...] this encounter Medical Devices Implanted Type Area Tool And Die Manager Device Identifier Shelf Expiration Date Model / Serial / Lot Cement Antibiotic Bone - [id number] Implanted:Qty: 3 on 04/28/2012 at [place] [facility] [place] Right: Hip VERONICA : ORTHOPAEDICS 11/19/2013 6197-9-010 / / [id number] Prostalac Acetabular Cup Implanted:Qty: 1 on 04/28/2012 at [place] [facility] [place] Right: Hip SUBHA & SUBHA DEPUY 05/19/2017 1541-42-320 / / [id number] Prostalac Hip Stem Size 105mm Std Offset Implanted:Qty: 1 on 04/28/2012 at [place] [facility] [place] Right: Hip SUBHA & SUBHA DEPUY 10/19/2021 1541-01-000 / / [id number] Description:Prostalac Hip St em Size 105mm Offset (Depuy) Ball Artic Wiliam Brn 32 Plus5 - [id number] Implanted:Qty: 1 on 04/28/2012 at [facility] [place] Right: Hip JNJ : DEPUY ORTHOPAEDICS 10/19/2016 [id number] / / [id number] Rest Mod Prox Cone Body 23 +11 - [id number] Implanted:Qty: 1 on 04/14/2014 at [place] [facility] [place] Right: Hip VERONICA : ORTHOPAEDICS 10/19/2018 6276-1-123 / / [id number] Head Fem 28mm - [id number] Implanted:Qty: 1 on 04/14/2014 at [facility] Right: Hip VERONICA : ORTHOPAEDICS 08/19/2018 6570-0-228 / / [id number] Insert 28mm - [id number] Implanted:Qty: 1 on 04/14/2014 at [facility] Right: Hip VERONICA : ORTHOPAEDICS 02/16/2019 1236-2-848 / / [id number] Cable/Sle Beaded D/M 20 Vit - [id number] Implanted:Qty: 1 on 04/14/2014 at [facility] Right: Hip VERONICA : ORTHOPAEDICS 10/19/2017 6704-0-520 / / [id number] Cable/Sle Beaded D/M 20 Vit - [id number] Implanted:Qty: 1 on 04/14/2014 at [facility] [place] Right: Hip VERONICA : ORTHOPAEDICS 10/19/2017 6704-0-520 / / [id number] Tritanium Revision Acetabular - [id number] Implanted:Qty: 1 on 04/14/2014 at [facility] Right: Hip VERONICA : ORTHOPAEDICS 05/19/2018 509-02-56E / / [id number] Screw Bone Osteolock 24 - [id number] Implanted:Qty: 1 on 04/14/2014 at [facility] Right: Hip VERONICA : ORTHOPAEDICS 02/16/2019 5260-5-024 / / [id number] Screw Bone Osteolock 35 - [id number] Implanted:Qty: 1 on 04/14/2014 at [place] [facility] [place] Right: Hip VERONICA : ORTHOPAEDICS 03/19/2017 5260-5-035 / / [id number] Liner 42mm - [id number] Implanted:Qty: 1 on 04/14/2014 at [place] [facility] [place] Right: Hip VERONICA : ORTHOPAEDICS 11/19/2018 626-00-42E / / [id number] Hip S Mod Conical Dis [id number] - [id number] Implanted:Qty: 1 on 04/14/2014 at [place] [facility] [place] Right: Hip VERONICA : ORTHOPAEDICS 12/17/2018 6276-7-017 / / [id number] documented as of this encounter Visit Diagnoses Diagnosis Plaque psoriasis Other psoriasis documented in this encounter Advance Directives Latest [...] and were consensually agreed upon. Care Teams Manufacturer Relationship Specialty Start Date End Date Willie Epstein MD [address] [place] [address] PCP - General Family Medicine 11/22/16 documented as of this encounter
--- OUTSIDE RECORDS SUMMARY | 2024-02-27 09:32 | External Medical Summary | Summary of Care ---
Author Name Unknown Organization [facility] Address [address] [place] [address] Phone [phone] Care Team Providers Care Blindstitch Machine Operator Name Role Phone Willie Pizarro MD Primary Care Provider + Reason for Visit * Reason Onset Date Comments Medication Refill 01/29/2024 Encounter Details Date Type Department Care Team (Late st Contact Info) Description 01/29/2024 [facility]ill [facility] [place] [address] Willie Pizarro MD [address] [place] [address] MEDICATION USE AGREEMENT; Arthritis of left shoulder region; Spondylolisthesis of lumbosacral region; H/O bilateral hip replacements Allergies Active Allergy Reactions Criticality Noted Date [...] hemoglobin A1c goal of less than 8.0% ([facility]) Use as directed 2 times a day. 1 Box Dosing Unit 11 01/16/2017 Active cinacalcet (SENSIPAR) 30 MG Tablet Take 1 Tab by mouth daily with dinner. 90 Tab 3 11/07/2017 Active Insulin Pen Needle (BD PEN NEEDLE SHORT U/F) 31G X 8 MMIndications:DM type 2 nursing care encounter ([facility]) USE DIRECTED WITH LEVEMIR PENS TWICE A DAY 100 Each 5 2019 Active Additional Information Patient not taking.Reported on 12/01/2023 Blood Glucose Monitoring Suppl (ZencoderUCH ULTRA 2) w/Device KIT Use to check blood sugar 2 times a day; E11.9. 1 Kit 0 10/22/2019 Active Glucose Blood (ZencoderUCH ULTRA BLUE) STRP Use to check blood [...] 10/08/2023 Active Betamethasone Dipropionate 0.05 % External OintmentIndicatio [...] 12/01/2023 Active Simvastatin 20 MG Oral Tablet (Zocor)Indication [...] needed (pain). 90 Tablet 0 01/29/2024 Active oxyCODONE HCl 15 MG Oral Tablet (Roxicodone)Indic ations:MEDICATION USE AGREEMENT,Arthrit is of left shoulder region,Spondyloli sthesis of lumbosacral region,H/O bilateral hip replacements Take 1 Tablet by mouth every 8 hours as needed (pain). 90 Tablet 0 01/28/2024 Discontinue d(Refill) documented as of this encounter (statuses as [...] will 2017 consider transplant needs 20lb -HD [facility]? T,R, S. Since January 2013. Spondylolisthesis [...] 04/09/2021 04/13/2021 Overview: Mult levels 04/09 [facility] + lumbar Respiratory symptoms 01/08/2020 021 Fever of unknown origin (FUO) 01/07/2020 02/26/2021 Respiratory infection 01/07/20202020 Cellulitis 06/28/2016 09/08/2016 Abnormal vaginal bleeding 02/12/2016 Cellulitis 02/07/2016 09/08/2016 UTI (urinary tract infection), bacterial 04/19/2014 05/02/2014 Hypotension 04/15/2014 05/02/2014 Compression of lumbar vertebra 02/03/2013 06/07/2021 Overview: Mult levels noted 04/[address] [facility] [address] also thoracic CKD (chronic [...] 140/90 08/25/200909/06 Overview: Modified 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 nursing home current use of ant icoagulant therapy 04/19/2009 [...] s/p B/L stents Sees Dr. Angel in [place] for Urology Osteoarthritis of hip 2018 documented [...] encounter Miscellaneous Notes * Telephone Encounter - Willie Pizarro MD - 01/29/2024 11:09 AM EDT Signed Prescriptions: Disp Refills oxyCODONE HCl 15 MG Oral Tablet (Roxicodon*90 Tab*0 Sig: Take 1 Tablet by mouth every 8 hours as needed (pain).Authorizing Provider: WILLIE PIZARRO * Telephone Encounter - Willie Pizarro MD - 01/29/2024 11:09 AM EDT "I have reviewed the patient's controlled substance dispensing history in the Prescription Drug Monitoring Program in compliance with the [facility] regulations before prescribing a controlled substance." * Telephone Encounter - Dayana Pardo, account executive trainee - 01/29/2024 10:44 AM EDT Please resend Rx to [facility]. Confirmed pharmacy did not receive original prescription. This did not process to pharmacy please send today Pending Prescriptions: Disp Refills oxyCODONE HCl 15 MG Oral Tablet (Roxicodo*90 Tab*0 Sig: Take 1 Tablet by mouth every 8 hours as needed (pain). Last Visit: 11/20/2023 (in office), 01/21/2024 (telemedicine) 01/29/2024 If no future appointments scheduled, and last appointment is greater than a year ago, please schedule patient for a follow-up appointment Last date the medication was ordered: Patient Phone Numbers Labs: Lab Results Component Value Date/Time CREAT 4.3 (H) 04/02/2023 12:09 PM CREAT 4.20 (A) 03/02/2021 12:00 AM CREAT 5.3 (H) 01/08/2020 06:36 AM POTASSIUM 4.3 05/23/2022 11:56 AM POTASSIUM 4.1 03/02/2021 12:00 AM POTASSIUM 5.3 (H) 01/08/2020 06:36 AM TSH 0.53 04/02/2023 12:09 PM TSH 0.837 12/31/2018 12:00 AM TSH 0.47 12/06/2015 10:27 AM LDLCALC 27 02/26/2021 12:00 AM LDLCALC 25 03/23/2018 11:11 AM LDLDIRECT 35 05/23/2022 11:56 AM LDLDIRECT NOT APPLICABLE 03/23/2018 11:11 AM LDLDIRECT 32 12/06/2015 10:27 AM ALT 21 05/23/2022 11:56 AM ALT 20 04/10/2017 12:00 AM ALT 13 12/06/2015 10:27 AM HGBA1C 5.1 04/02/2023 12:09 PM HGBA1C 5.4 02/26/2021 12:00 AM HGBA1C 5.2 01/08/2020 06:36 AM documented in this encounter Plan of Treatment Upcoming Encounters Date Type Department Care Team (Late st Contact Info) Description 01/29/2024 1:40 PM EDT Office Visit Family Practice [facility] [address] [address] Bianca Baron CRNP [address] [place] [address] 03/10/2024 10:00 AM EDT Office Visit Otolaryngology [facility] [address] [place] [address] [address] Te Vann DO [address] [place] [address] 03/17/2024 11:00 AM EDT Cardiac Studies Cardiac Studies, [facility] 132 [facility] [place] [address] 03/24/2024 11:00 AM EDT Office Visit Cardiology, [facility] [address] [place] [address] Rosalee Cardoso CRNP [address] [place] [address] 03/25/2024 10:30 AM EDT Office Visit [facility] Surgery [facility] [address] [place] [address] Arlene La MD [address] [facility] [address] 03/29/2024 1:20 PM EDT Office Visit Dermatology [address] [place] [address] Coco Ivan PA-C [address] [place] [address] [place] [address] 04/05/2024 11:00 AM EDT Imaging Radiology [facility] 1st [facility] [address] [place] [address] 05/07/2024 12:20 PM EDT Office Visit Family Practice [facility] [address] [place] [address] Willie Pizarro MD [address] [place] [address] Scheduled Procedures Name Priority Associated Diagnoses Date/Ti [...] this encounter Medical Devices Implanted Type Area Farm Boss Device Identifier Shelf Expiration Date Model / Serial / Lot Cement Antibiotic Bone - [id number] Implanted:Qty: 3 on 04/28/2012 at [place] [facility] [place] Right: Hip VERONICA : ORTHOPAEDICS 11/19/2013 6197-9-010 / / [id number] Prostalac Acetabular Cup Implanted:Qty: 1 on 04/28/2012 at [place] [facility] [place] Right: Hip SUBHA & SUBHA DEPUY 05/19/2017 1541-42-320 / / [id number] Prostalac Hip Stem Size 105mm Std Offset Implanted:Qty: 1 on 04/28/2012 at [facility] Right: Hip SUBHA & SUBHA DEPUY 10/19/2021 1541-01-000 / / [id number] Description:Prostalac Hip St em Size 105mm Offset (Depuy) Ball Artic Wiliam Brn 32 Plus5 - [id number] Implanted:Qty: 1 on 04/28/2012 at [place] [facility] [place] Right: Hip JNJ : DEPUY ORTHOPAEDICS 10/19/2016 [id number] / / [id number] Rest Mod Prox Cone Body 23 +11 - [id number] Implanted:Qty: 1 on 04/14/2014 at [facility] Right: Hip VERONICA : ORTHOPAEDICS 10/19/2018 6276-1-123 / / [id number] Head Fem 28mm - [id number] Implanted:Qty: 1 on 04/14/2014 at [place] [facility] Right: Hip VERONICA : ORTHOPAEDICS 08/19/2018 6570-0-228 / / [id number] Insert 28mm - [id number] Implanted:Qty: 1 on 04/14/2014 at [place] [facility] Right: Hip VERONICA : ORTHOPAEDICS 02/16/2019 1236-2-848 / / [id number] Cable/Sle Beaded D/M 20 Vit - [id number] Implanted:Qty: 1 on 04/14/2014 at [place] [facility] Right: Hip VERONICA : ORTHOPAEDICS 10/19/2017 6704-0-520 / / [id number] Cable/Sle Beaded D/M 20 Vit - [id number] Implanted:Qty: 1 on 04/14/2014 at [facility] Right: Hip VERONICA : ORTHOPAEDICS 10/19/2017 6704-0-520 / / [id number] Tritanium Revision Acetabular - [id number] Implanted:Qty: 1 on 04/14/2014 at [facility] Right: Hip VERONICA : ORTHOPAEDICS 05/19/2018 509-02-56E / / [id number] Screw Bone Osteolock 24 - [id number] Implanted:Qty: 1 on 04/14/2014 at [place] [facility] Right: Hip VERONICA : ORTHOPAEDICS 02/16/2019 5260-5-024 / / [id number] Screw Bone Osteolock 35 - [id number] Implanted:Qty: 1 on 04/14/2014 at [facility] Right: Hip VERONICA : ORTHOPAEDICS 03/19/2017 5260-5-035 / / [id number] Liner 42mm - [id number] Implanted:Qty: 1 on 04/14/2014 at [facility] Right: Hip VERONICA : ORTHOPAEDICS 11/19/2018 626-00-42E / / [id number] Hip S Mod Conical Dis 70o493 - [id number] Implanted:Qty: 1 on 04/14/2014 at [place] [facility] Right: Hip VERONICA : ORTHOPAEDICS 12/17/2018 6276-7-017 / / [id number] documented as of this encounter Visit Diagnoses Diagnosis MEDICATION USE AGREEMENT Arthritis of left shoulder region Unspecified arthropathy, shoulder region Spondylolisthesis of lumbosacral region Acquired spondylolisthesis H/O bilateral hip replacements Hip joint replacement by other means documented in this encounter Advance Directives Latest [...] and were consensually agreed upon. Care Teams Blindstitch Machine Operator Relationship Specialty Start Date End Date Willie Pizarro MD [address] [place] [address] PCP - General Family Medicine 11/22/16 documented as of this encounter
--- OUTSIDE RECORDS SUMMARY | 2024-02-27 09:32 | External Medical Summary | Summary of Care ---
Author Name Unknown Organization [facility] Address [address] [place] [address] Phone [phone] Care Team Providers Care Communications Marketing Intern Name Role Phone Willie Pizarro MD Primary Care Provider + Reason for Visit * Reason Comments eRx-Medication Refill Encounter Details Date Type Department Care Team (Late st Contact Info) Description 01/31/2024 Refill Family Practice [facility] [address] [place] [address] Willie Pizarro MD [address] [facility] [place] [address] Type 2 diabetes mellitus with hemoglobin A1c goal of less than 8.0% ([facility])* Allergies Active Allergy Reactions Criticality Noted Date [...] PO TABS 1 tablet daily 0 Active IvisysTOUCH ULTRASOFT LANCETS MISCIndications:T ype 2 diabetes mellitus with hemoglobin A1c goal of less than 8.0% ([facility]) Use as directed 2 times a day. 1 Box Dosing Unit 11 7 Active cinacalcet (SENSIPAR) 30 MG Tablet Take 1 Tab by mouth daily with dinner. 90 Tab 3 8 Active Insulin Pen Needle (BD PEN NEEDLE SHORT U/F) 31G X 8 MMIndications:DM type 2 nursing care encounter ([facility]) USE DIRECTED WITH LEVEMIR PENS TWICE A DAY 100 Each 5 9 Active Additional Information Patient not taking.Reported on 12/01/2023 Blood Glucose Monitoring Suppl ([facility] ULTRA 2) w/Device KIT Use to check blood sugar 2 times a day; E11.9. 1 Kit 0 0 Active Glucose Blood (Hassle.comUCH ULTRA BLUE) STRP Use to check blood [...] EVERY DAY 90 Tablet 1 3 Active Triamcinolone Acetonide 0.1 % External [...] WEEK . 3 mL 5 4 Active Trulicity 0.75 MG/0.5ML Subcutaneous Solution Pen-injector (Dulaglutide) INJECT UNDER THE SKIN 0.75 MG ONCE A WEEK . 6 mL 3 3 02/02/20 24 Discontinued documented as of this [...] will 2017 consider transplant needs 20lb -HD [place] [facility]? T,R, S. Since January 2013. Spondylolisthesis [...] 04/09/2021 04/13/2021 Overview: Mult levels 04/09 CT [facility] + lumbar Respiratory symptoms 01/08/2020 021 Fever of unknown origin (FUO) 01/07/2020 02/26/2021 Respiratory infection 01/07/20202020 Cellulitis 06/28/2016 09/08/2016 Abnormal vaginal bleeding 02/12/2016 Cellulitis 02/07/2016 09/08/2016 UTI (urinary tract infection), bacterial 04/19/2014 05/02/2014 Hypotension 04/15/2014 05/02/2014 Compression of lumbar vertebra 02/03/2013 06/07/2021 Overview: Mult levels noted 04/[address] [facility] [address] also thoracic CKD (chronic kidney [...] 140/90 08/25/200909/06 Overview: Modified 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 Angel in [place] for Urology Osteoarthritis of hip 2018 documented as of this encounter (statuses as of 02/02/2024) Immunizations Name Administration Dates Next Due COVID-19 mRNA, LNP-s, No Pre serve, 2-Dose Series (DraftDay) 09/11/2021,01/02/2021,12/12/2020 COVID-19, mRNA, LNP-s, PF, B ooster, [...] Telephone Encounter - Willie Pizarro MD - 02/02/2024 10:37 PM EDT Signed Prescriptions: Disp Refills Trulicity 0.75 MG/0.5ML Subcutaneous Solut*3 mL 5 Sig: INJECT UNDER THE SKIN 0.75 MG ONCE A WEEK . Authorizing Provider: WILLIE PIZARRO * Telephone Encounter - Flores Haas LPN - 02/02/2024 1:59 PM EDTPending Prescriptions: Disp Refills Trulicity 0.75 MG/0.5ML Subcutaneous Solut* 5 Sig: INJECT UNDER THE SKIN 0.75 MG ONCE A WEEK . * Telephone Encounter - Flores Haas LPN - 02/02/2024 1:58 PM EDT Pending Prescriptions: Disp Refills Trulicity 0.75 MG/0.5ML Subcutaneous Solu* 5 Sig: INJECT UNDER THE SKIN 0.75 MG ONCE A WEEK . Last Visit: 01/29/2024 (in office), 01/21/2024 (telemedicine) Next Visit: 05/07/2024 Last date the medication was ordered: 10/08/23 Patient Active Problem List Diagnosis Code Type 2 diabetes mellitus with hemoglobin A1c goal of less than 8.0% ([facility]) E11.9 Hypertensive kidney disease with end-stage renal disease ([facility]) I12.0, N18.6 Severe obesity with body mass index (BMI) of 35.0 to 39.9 with serious comorbidity ([facility]) E66.01 Dyslipidemia, goal LDL below 70 E78.5 Vitamin D deficiency E55.9 History of osteomyelitis Z87.39 History of pulmonary embolism Z86.711 MEDICATION USE AGREEMENT [id number] Anemia in ESRD (end-stage renal disease) ([facility]) N18.6, D63.1 Spondylolisthesis of lumbosacral region M43.17 ESRD on dialysis ([facility]) N18.6, Z99.2 H/O bilateral hip replacements Z96.643 Family history of breast cancer Z80.3 Type 2 diabetes mellitus with ESRD (end-stage renal disease) ([facility]) E11.22, N18.6 Long-term insulin use ([facility]) Z79.4 Well adult exam Z00.00 Therapeutic opioid induced constipation K59.03, T40.2X5A Hypertensive kidney disease with end-stage renal disease ([facility]) I12.0, N18.6 Psoriasis L40.9 Age-related osteoporosis without current pathological fracture M81.0 Hx of nonmelanoma skin cancer Z85.828 SCC (squamous cell carcinoma), hand, right C44.622 Labs: Lab Results Component Value Date/Time CREATININE - [facility] 4.3 (H) 04/02/2023 12:09 PM CREATININE - [facility] 5.3 (H) 01/08/2020 06:36 AM CREATININE GINO 43 12/31/2017 04:44 PM CREATININE GINO - [facility] 33 04/30/2023 02:09 PM CREATININE, 24 HOUR URINE - [facility] 0.931 06/02/2012 10:00 AM CREATININE, RANDOM URINE - [facility] 41 12/06/2015 10:31 AM CREATININE-OUTSIDE LAB 4.20 (A) 03/02/2021 12:00 AM Lab Results Component Value Date/Time POTASSIUM - [facility] 4.3 05/23/2022 11:56 AM POTASSIUM - [facility] 5.3 (H) 01/08/2020 06:36 AM POTASSIUM POCT - [facility] 3.6 04/14/2014 01:47 PM POTASSIUM, WHOLE BLOOD - [facility] 3.6 04/14/2014 06:57 PM POTASSIUM-OUTSIDE LAB 4.1 03/02/2021 12:00 AM Lab Results Component Value Date/Time TSH - [facility] 0.53 04/02/2023 12:09 PM TSH - [facility] 0.47 12/06/2015 10:27 AM TSH - OUTSIDE LAB 0.837 12/31/2018 12:00 AM Lab Results Component Value Date/Time LDL (CALCULATED)-OUTSIDE LAB 27 02/26/2021 12:00 AM LDL (CALCULATED)-OUTSIDE LAB 23 11/08/2014 12:00 AM LDL CHOLESTEROL (CALCULATED) - [facility] 25 03/23/2018 11:11 AM LDL CHOLESTEROL (CALCULATED) - [facility] 33 12/20/2016 10:51 AM LDL CHOLESTEROL (DIRECT MEASURE) - [facility] 35 05/23/2022 11:56 AM LDL CHOLESTEROL (DIRECT MEASURE) - [facility] NOT APPLICABLE 03/23/2018 11:11 AM LDL CHOLESTEROL (DIRECT MEASURE) - [facility] NOT APPLICABLE 12/20/2016 10:51 AM LDL CHOLESTEROL (DIRECT MEASURE) - [facility] 32 12/06/2015 10:27 AM LDL CHOLESTEROL (DIRECT MEASURE) - [facility] 49 09/23/2013 10:27 AM Lab Results Component Value Date/Time ALT - [facility] 21 05/23/2022 11:56 AM ALT - [facility] 13 12/06/2015 10:27 AM ALT-OUTSIDE LAB 20 04/10/2017 12:00 AM Hemoglobin AIC Results: Lab Results Component Value Date/Time HEMOGLOBIN A1C - [facility] 5.1 04/02/2023 12:09 PM HEMOGLOBIN A1C - [facility] 5.2 06/07/2021 12:38 PM HEMOGLOBIN A1C - [facility] 5.2 01/08/2020 06:36 AM HEMOGLOBIN A1C - [facility] 5.0 03/23/2018 11:11 AM HEMOGLOBIN A1C - [facility] 4.9 12/20/2016 10:51 AM documented in this encounter Plan of Treatment Upcoming Encounters Date Type Department Care Team (Late st Contact Info) Description 03/10/2024 10:00 AM EDT Office Visit Otolaryngology [facility] [address] [place] [address] Te Vann DO [address] [place] [address] 03/17/2024 11:00 AM EDT Cardiac Studies Cardiac Studies, [facility] [address] [facility] [place] [address] 03/24/2024 11:00 AM EDT Office Visit Cardiology, [facility] [address] [facility] [place] [address] Rosalee Cardoso CRNP [address] [facility] [place] [address] 03/25/2024 10:30 AM EDT Office Visit [facility] Surgery [facility] [address] [place] [address] Arlene La [facility] [address] 03/29/2024 1:20 PM EDT Office Visit Dermatology [address] [place] [address] Coco Ivan PA-C [address] [place] [address] [place] [address] 04/05/2024 11:00 AM EDT Imaging Radiology [facility] [address] [facility] [place] [address] 05/07/2024 12:20 PM EDT Office Visit Family Practice [facility] [address] [facility] [place] [address] Willie Pizarro MD [address] [facility] [place] [address] Scheduled Procedures Name Priority Associated Diagnoses Date/Ti [...] this encounter Medical Devices Implanted Type Area Starch Mangle Tender Device Identifier Shelf Expiration Date Model / Serial / Lot Cement Antibiotic Bone - [id number] Implanted:Qty: 3 on 04/28/2012 at [facility] Right: Hip VERONICA : ORTHOPAEDICS 11/19/2013 6197-9-010 / / [id number] Prostalac Acetabular Cup Implanted:Qty: 1 on 04/28/2012 at [facility] Right: Hip SUBHA & SUBHA DEPUY 05/19/2017 1541-42-320 / / [id number] Prostalac Hip Stem Size 105mm Std Offset Implanted:Qty: 1 on 04/28/2012 at [facility] Right: Hip SUBHA & SUBHA DEPUY 10/19/2021 1541-01-000 / / [id number] Description:Prostalac Hip St em Size 105mm Offset (Depuy) Ball Artic Wiliam Brn 32 Plus5 - [id number] Implanted:Qty: 1 on 04/28/2012 at [facility] Right: Hip JNJ : DEPUY ORTHOPAEDICS 10/19/2016 [id number] / / [id number] Rest Mod Prox Cone Body 23 +11 - [id number] Implanted:Qty: 1 on 04/14/2014 at [facility] Right: Hip VERONICA : ORTHOPAEDICS 10/19/2018 6276-1-123 / / [id number] Head Fem 28mm - [id number] Implanted:Qty: 1 on 04/14/2014 at [facility] Right: Hip VERONICA : ORTHOPAEDICS 08/19/2018 6570-0-228 / / [id number] Insert 28mm - [id number] Implanted:Qty: 1 on 04/14/2014 at [facility] Right: Hip VERONICA : ORTHOPAEDICS 02/16/2019 1236-2-848 / / [id number] Cable/Sle Beaded D/M 20 Vit - [id number] Implanted:Qty: 1 on 04/14/2014 at [facility] Right: Hip VERONICA : ORTHOPAEDICS 10/19/2017 6704-0-520 / / [id number] Cable/Sle Beaded D/M 20 Vit - [id number] Implanted:Qty: 1 on 04/14/2014 at [facility] Right: Hip VERONICA : ORTHOPAEDICS 10/19/2017 6704-0-520 / / [id number] Tritanium Revision Acetabular - [id number] Implanted:Qty: 1 on 04/14/2014 at [facility] Right: Hip VERONICA : ORTHOPAEDICS 05/19/2018 509-02-56E / / [id number] Screw Bone Osteolock 24 - [id number] Implanted:Qty: 1 on 04/14/2014 at [facility] Right: Hip VERONICA : ORTHOPAEDICS 02/16/2019 5260-5-024 / / [id number] Screw Bone Osteolock 35 - [id number] Implanted:Qty: 1 on 04/14/2014 at [facility] Right: Hip VERONICA : ORTHOPAEDICS 03/19/2017 5260-5-035 / / [id number] Liner 42mm - [id number] Implanted:Qty: 1 on 04/14/2014 at [facility] Right: Hip VERONICA : ORTHOPAEDICS 11/19/2018 626-00-42E / / [id number] Hip S Mod Conical Dis 07o379 - [id number] Implanted:Qty: 1 on 04/14/2014 at [place] [facility] Right: Hip VERONICA : ORTHOPAEDICS 12/17/2018 6276-7-017 / / [id number] documented as of this encounter Visit Diagnoses Diagnosis Type 2 diabetes mellitus with hemoglobin A1c goal of less than 8.0% ([facility])- Primary documented in this encounter Advance Directives [...] and were consensually agreed upon. Care Teams Communications Marketing Intern Relationship Specialty Start Date End Date Willie Pizarro MD [address] [place] [address] PCP - General Family Medicine 11/22/16 documented as of this encounter
--- OUTSIDE RECORDS SUMMARY | 2024-02-27 09:32 | External Medical Summary | Summary of Care ---
Author Name Unknown Organization [facility] Address [address] [place] [address] Phone [phone] Care Team Providers Care Orthotics Technician Name Role Phone Willie Epstein MD Primary Care Provider + Reason for Visit * Reason Onset Date Comments Scheduling 02/10/2024 Encounter Details Date Type Department Care Team (Late st Contact Info) Description 02/10/2024 Telephone [facility] Surgery [facility] [address] [place] [address] Lj Maxwell MD [address] [place] [address] Scheduling Allergies Active Allergy Reactions Criticality Noted Date Comments Methylprednisolone Other (Please comment) 07/28/2017 Side effects c/w med (sweating, heart racing etc) Nitrofurantoin Monohyd Macro Hives 04/04/2014 Sulfa Antibiotics Edema face/lips/tongue High 09/02/2008 documented as of this encounter (statuses as of 02/10/2024) Medications Medication Sig Dispensed Refills Start Date [...] taking.Reported on 12/01/2023 Blood Glucose Monitoring Suppl ([facility] ULTRA 2) w/Device KIT Use to check blood sugar 2 times a day; E11.9. 1 Kit 0 10/22/2019 Active Glucose Blood (SimpleviewUCH ULTRA BLUE) STRP Use to check blood [...] Active Trulicity 0.75 MG/0.5ML Subcutaneous Solution Pen-injector (Dulaglutide)Indic ations:Type 2 diabetes mellitus with hemoglobin A1c goal of less than 8.0% ([facility]) INJECT UNDER THE SKIN 0.75 MG ONCE A WEEK . 3 mL 5 02/02/2024 Active Citalopram Hydrobromide 20 MG Oral Tablet (CeleXA) TAKE 1 TABLET BY MOUTH EVERY DAY 90 Tablet 1 02/03/2024 Active Betamethasone Dipropionate 0.05 % External OintmentIndication s:Plaque psoriasis APPLY 2X DAILY (OR MORE IF ITCHY INSTEAD OF SCRATCHING) TO AFFECTED PSORIASIS SPOTS ON ARMS/LEGS UNTIL RESOLVED 50 g 1 02/02/2024 Active documented as of this encounter (statuses as of 02/10/2024) Active Problems Problem Noted Date Diagnosed Date [...] will 2017 consider transplant needs 20lb -HD [place] [facility]? T,R, S. Since January 2013. Spondylolisthesis [...] as of this encounter (statuses as of 02/10/2024) Resolved Problems Problem Noted Date Diagnosed Date [...] 02/03/2013 06/07/2021 Overview: Mult levels noted 04/[address] [facility] [address] also thoracic CKD (chronic kidney disease), [...] 140/90 08/25/200909/06 Overview: Modified 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 shelter current use of ant icoagulant therapy 04/19/2009 [...] s/p B/L stents Sees Dr. Angel in [place] for Urology Osteoarthritis of hip 2018 documented as of this encounter (statuses as of 02/10/2024) Immunizations Name Administration Dates Next Due COVID-19 mRNA, LNP-s, No Pre serve, 2-Dose Series (iList) 09/11/2021,01/02/2021,12/12/2020 COVID-19, mRNA, LNP-s, PF, B ooster, [...] money to buy more. Never true 04/30/20 Within the past 12 months, t he [...] encounter Miscellaneous Notes * Telephone Encounter - Salima Barbosa, MINDI - 02/10/2024 11:05 AM EDT Patient called back and confirmed she will be able to come in for mohs on 02/11 at 8:15am so we cancelled her mohs on 03/25 * Telephone Encounter - Salima Barbosa OSA - 02/10/2024 10:55 AM EDT Spoke to patient and she needs to check to see if she can re arrange some other appointments and she will call me back to let me know for sure if she can take the 02/12/24 appt at 8;15am, we will thencancel her 03/25/24 surgery appt. * Telephone Encounter - Domonique Valenzuela OSA - 02/10/2024 10:44 AM EDT Pt returning call, transferred to [facility] surgery * Telephone Encounter - Salima Barbosa OSA - 02/10/2024 10:28 AM EDT 02/09 LMM for patient on her cell and also her 's cell to call [phone] to let me know ifjinny wants to move her skin cancer surgery up from 03/25/24 to THIS thurs 02/12/24 at 8:15am. documented in this encounter Plan of Treatment Upcoming Encounters Date Type Department Care Team (Late st Contact Info) Description 02/12/2024 8:15 AM EDT Office Visit [facility] Surgery [facility] [address] [place], [place] [address] Lj Maxwell MD 200 [facility] [address] 03/10/2024 10:00 AM EDT Office Visit Otolaryngology [facility] [address] [facility] [place] [address] Te Vann, [address] [place] [place] [address] 03/17/2024 11:00 AM EDT Cardiac Studies Cardiac Studies, [facility] [address] [place] [address] 03/24/2024 11:00 AM EDT Office Visit Cardiology, [facility] [address] [place] [address] Rosalee Cardoso CRNP [address] [place] [address] 03/29/2024 1:20 PM EDT Office Visit Dermatology [address] [place] [address] Coco Ivan PA-C [address] [place] [address] [place] [address] 04/05/2024 11:00 AM EDT Imaging Radiology [facility] [address] [place] [address] 05/07/2024 12:20 PM EDT Office Visit Family Practice [facility] [place] [address] Willie Epstein MD [address] [facility] [place] [address] Scheduled Procedures Name Priority Associated Diagnoses Date/Ti [...] this encounter Medical Devices Implanted Type Area Medical Sonographer Device Identifier Shelf Expiration Date Model / Serial / Lot Cement Antibiotic Bone - [id number] Implanted:Qty: 3 on 04/28/2012 at [place] [facility] Right: Hip VERONICA : ORTHOPAEDICS 11/19/2013 6197-9-010 / / [id number] Prostalac Acetabular Cup Implanted:Qty: 1 on 04/28/2012 at [facility] Right: Hip SUBHA & SUBHA DEPUY 05/19/2017 1541-42-320 / / [id number] Prostalac Hip Stem Size 105mm Std Offset Implanted:Qty: 1 on 04/28/2012 at [facility] Right: Hip SUBHA & SUBHA DEPUY 10/19/2021 1541-01-000 / / [id number] Description:Prostalac Hip St em Size 105mm Offset (Depuy) Ball Artic Wiliam Brn 32 Plus5 - [id number] Implanted:Qty: 1 on 04/28/2012 at [facility] Right: Hip JNJ : DEPUY ORTHOPAEDICS 10/19/2016 [id number] / / [id number] Rest Mod Prox Cone Body 23 +11 - [id number] Implanted:Qty: 1 on 04/14/2014 at [facility] Right: Hip VERONICA : ORTHOPAEDICS 10/19/2018 6276-1-123 / / [id number] Head Fem 28mm - [id number] Implanted:Qty: 1 on 04/14/2014 at [facility] Right: Hip VERONICA : ORTHOPAEDICS 08/19/2018 6570-0-228 / / [id number] Insert 28mm - [id number] Implanted:Qty: 1 on 04/14/2014 at [facility] Right: Hip VERONICA : ORTHOPAEDICS 02/16/2019 1236-2-848 / / [id number] Cable/Sle Beaded D/M 20 Vit - [id number] Implanted:Qty: 1 on 04/14/2014 at [facility] Right: Hip VERONICA : ORTHOPAEDICS 10/19/2017 6704-0-520 / / [id number] Cable/Sle Beaded D/M 20 Vit - [id number] Implanted:Qty: 1 on 04/14/2014 at [facility] Right: Hip VERONICA : ORTHOPAEDICS 10/19/2017 6704-0-520 / / [id number] Tritanium Revision Acetabular - [id number] Implanted:Qty: 1 on 04/14/2014 at [facility] Right: Hip VERONICA : ORTHOPAEDICS 05/19/2018 509-02-56E / / [id number] Screw Bone Osteolock 24 - [id number] Implanted:Qty: 1 on 04/14/2014 at [facility] Right: Hip VERONICA : ORTHOPAEDICS 02/16/2019 5260-5-024 / / [id number] Screw Bone Osteolock 35 - [id number] Implanted:Qty: 1 on 04/14/2014 at [facility] Right: Hip VERONICA : ORTHOPAEDICS 03/19/2017 5260-5-035 / / [id number] Liner 42mm - [id number] Implanted:Qty: 1 on 04/14/2014 at [facility] Right: Hip VERONICA : ORTHOPAEDICS 11/19/2018 626-00-42E / / [id number] Hip S Mod Conical Dis 49i044 - [id number] Implanted:Qty: 1 on 04/14/2014 at [facility] Right: Hip VERONICA : ORTHOPAEDICS 12/17/2018 6276-7-017 / / [id number] documented as of this encounter Advance Directives [...] and were consensually agreed upon. Care Teams Orthotics Technician Relationship Specialty Start Date End Date Willie Epstein MD [address] [place] [address] PCP - General Family Medicine 11/22/16 documented as of this encounter
--- OUTSIDE RECORDS SUMMARY | 2024-02-27 09:32 | External Medical Summary | Summary of Care ---
Author Name Unknown Organization [facility] Address [address] [place] [address] Phone [phone] Care Team Providers Care Inclusion Specialist Name Role Phone Willie Pizarro MD Primary Care Provider + Reason for Visit * Reason Onset Date Comments Medication Refill 01/29/2024 Encounter Details Date Type Department Care Team (Late st Contact Info) Description 01/29/2024 Refill Family Practice [facility] [address] [place] [address] Willie Pizarro MD [address] [place] [address] MEDICATION USE AGREEMENT; Arthritis of left shoulder [...] goal of less than 8.0% ([facility]) Use as directed 2 times a day. 1 Box Dosing Unit 11 01/16/2017 Active cinacalcet (SENSIPAR) 30 MG Tablet Take 1 Tab by mouth daily with dinner. 90 Tab 3 11/07/2017 Active Insulin Pen Needle (BD PEN NEEDLE SHORT U/F) 31G X 8 MMIndications:DM type 2 nursing care encounter ([facility]) USE DIRECTED WITH LEVEMIR PENS TWICE A DAY 100 Each 5 2019 Active Additional Information Patient not taking.Reported on 12/01/2023 Blood Glucose Monitoring Suppl (GRAVIDIUCH ULTRA 2) w/Device KIT Use to check blood sugar 2 times a day; E11.9. 1 Kit 0 10/22/2019 Active Glucose Blood (GRAVIDIUCH ULTRA BLUE) STRP Use to check blood [...] will 2017 consider transplant needs 20lb -HD [place] [facility]? T,R, S. Since January 2013. Spondylolisthesis [...] 04/13/2021 Overview: Mult levels 04/09 [facility] + lumbar Respiratory symptoms 01/08/2020 021 Fever of unknown origin (FUO) 01/07/2020 02/26/2021 Respiratory infection 01/07/20202020 Cellulitis 06/28/2016 09/08/2016 Abnormal vaginal bleeding 02/12/2016 Cellulitis 02/07/2016 09/08/2016 UTI (urinary tract infection), bacterial 04/19/2014 05/02/2014 Hypotension 04/15/2014 05/02/2014 Compression of lumbar vertebra 02/03/2013 06/07/2021 Overview: Mult levels noted 04/[address] [facility] [address] also thoracic CKD (chronic kidney [...] 140/90 08/25/200909/06 Overview: Modified 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 [facility] current use of ant icoagulant therapy 04/19/2009 [...] s/p B/L stents Sees Dr. Angel in [place] for Urology Osteoarthritis of hip 2018 documented [...] Influenza, Split, I IV3, With Preserve, Inj 08/20/2015,07/20/2014,07/06/2013,10/0 03/2012,07/10/2011,07/23/2010,07/27/20 09,07/29/2008,08/26/2007,08/14/2006,1 11/04/2004,10/31/2004,08/17/2003,09/03,09/14/2001,10/01/2000 10/01/2001 Seasonal Influenza, Trivalen t, [...] encounter Miscellaneous Notes * Telephone Encounter - Soo Dodson PHARM Tech - 01/29/2024 12:49 PM EDT Pt calling to request oxy 15 mg. Informed pt that RX is available at their pharmacy. Pt verbalized understanding and stated they will check with their pharmacy regarding this medication. Thank You, Soo Dodson, [facility] Service Cleaner II [facility] ([facility]) (Formerly Telepharmacy) 01/29/2024, 12:49 PM * Telephone Encounter - Willie Pizarro MD [...] Drug Monitoring Program in compliance with the [facility] regulations before prescribing a controlled substance." * Telephone Encounter - Dayana Pardo, dimensional engineer - 01/29/2024 10:44 AM EDT Please resend Rx to [facility]. Confirmed pharmacy did not [...] 1:40 PM EDT Office Visit Family Practice [facility] [address] [place] [address] Bianca Baron CRNP [address] [place] [address] 03/10/2024 10:00 AM EDT Office Visit Otolaryngology [facility] [address] [place] [address] Te Vann DO [address] [place] [address] 03/17/2024 11:00 AM EDT Cardiac Studies Cardiac Studies, [facility] [address] [place] [address] 03/24/2024 11:00 AM EDT Office Visit Cardiology, [facility] [address] [place] [address] Rosalee Cardoso CRNP [address] [place] [address] 03/25/2024 10:30 AM EDT Office Visit [facility] [address] Arlene La MD [address] [place], [place] [address] [address] 03/29/2024 1:20 PM EDT Office Visit Dermatology [address] [place] [address] Coco Ivan PA-C [address] [place] [address] [place] [address] 04/05/2024 11:00 AM EDT Imaging Radiology [address] [place] [address] 05/07/2024 12:20 PM EDT Office Visit Family Practice [facility] [address] [place] [address] Willie Pizarro MD [address] [place] [address] Scheduled Procedures Name Priority Associated Diagnoses Date/Ti [...] this encounter Medical Devices Implanted Type Area Chairman & Co Founder Device Identifier Shelf Expiration Date Model / Serial / Lot Cement Antibiotic Bone - [id number] Implanted:Qty: 3 on 04/28/2012 at [place] [facility] Right: Hip VERONICA : ORTHOPAEDICS 11/19/2013 6197-9-010 / / [id number] Prostalac Acetabular Cup Implanted:Qty: 1 on 04/28/2012 at [facility] Right: Hip SUBHA & SUBHA DEPUY 05/19/2017 1541-42-320 / / [id number] Prostalac Hip [place] Size 105mm Std Offset Implanted:Qty: 1 on 04/28/2012 at [facility] Right: Hip SUBHA & SUBHA DEPUY 10/19/2021 1541-01-000 / / [id number] Description:Prostalac Hip St em Size 105mm Offset (Depuy) Ball Artic Wiliam Brn 32 Plus5 - [id number] Implanted:Qty: 1 on 04/28/2012 at OR [facility] Right: Hip JNJ : DEPUY ORTHOPAEDICS 10/19/2016 [id number] / / [id number] Rest Mod Prox Cone Body 23 +11 - [id number] Implanted:Qty: 1 on 04/14/2014 at OR [facility] Right: Hip VERONICA : ORTHOPAEDICS 10/19/2018 6276-1-123 / / [id number] Head Fem 28mm - [id number] Implanted:Qty: 1 on 04/14/2014 at [facility] Right: Hip VERONICA : ORTHOPAEDICS 08/19/2018 6570-0-228 / / [id number] Insert 28mm - [id number] Implanted:Qty: 1 on 04/14/2014 at [facility] Right: Hip VERONICA : ORTHOPAEDICS 02/16/2019 1236-2-848 / / [id number] Cable/Sle Beaded D/M 20 Vit - [id number] Implanted:Qty: 1 on 04/14/2014 at [facility] Right: Hip VERONICA : ORTHOPAEDICS 10/19/2017 6704-0-520 / / [id number] Cable/Sle Beaded D/M 20 Vit - [id number] Implanted:Qty: 1 on 04/14/2014 at [facility] Right: Hip VERONICA : ORTHOPAEDICS 10/19/2017 6704-0-520 / / [id number] Tritanium Revision Acetabular - [id number] Implanted:Qty: 1 on 04/14/2014 at [facility] Right: Hip VERONICA : ORTHOPAEDICS 05/19/2018 509-02-56E / / [id number] Screw Bone Osteolock 24 - [id number] Implanted:Qty: 1 on 04/14/2014 at [facility] Right: Hip VERONICA : ORTHOPAEDICS 02/16/2019 5260-5-024 / / [id number] Screw Bone Osteolock 35 - [id number] Implanted:Qty: 1 on 04/14/2014 at [facility] Right: Hip VERONICA : ORTHOPAEDICS 03/19/2017 5260-5-035 / / [id number] Liner 42mm - [id number] Implanted:Qty: 1 on 04/14/2014 at [facility] Right: Hip VERONICA : ORTHOPAEDICS 11/19/2018 626-00-42E / / [id number] Hip S Mod Conical Dis 23y052 - [id number] Implanted:Qty: 1 on 04/14/2014 at [facility] Right: Hip VERONICA : ORTHOPAEDICS 12/17/2018 6276-7-017 / / [id number] documented as of this encounter Visit Diagnoses [...] and were consensually agreed upon. Care Teams Inclusion Specialist Relationship Specialty Start Date End Date Willie Pizarro MD [address] [facility] [place] [address] PCP - General Family Medicine 11/22/16 documented as of this encounter
--- OUTSIDE RECORDS SUMMARY | 2024-02-27 09:33 | External Medical Summary | Summary of Care ---
Author Name Unknown Organization [facility] Address [address] [place] [address] Phone [phone] Care Team Providers Care Graduating Machine Operator Name Role Phone Willie [place] MD Primary Care Provider + Reason for Visit * Reason Comments Outpatient Testing Encounter Details Date Type Department Care Team ([facility] st Contact Info) Description 01/28/2024 10:40 AM EDT Laboratory Laboratory [address] [place] [address] [facility] [address] [place] [address] Anemia in ESRD (end-stage renal disease) ([facility]) Allergies Active Allergy Reactions Criticality Noted Date Comments Methylprednisolone Other (Please comment) 07/28/2017 Side effects c/w med (sweating, heart racing etc) Nitrofurantoin Monohyd Macro Hives 04/04/2014 Sulfa Antibiotics Edema face/lips/tongue High 09/02/2008 documented as of this encounter (statuses as of 01/28/2024) Medications Medication Sig Dispensed Refills Start Date End Date Status INSULIN SYRINGE-NEEDLE U-100 30G X 1/2" 1 ML MISCIndications:DM type 2, goal A1c below 7 Use as directed 1 Box of 100 11 10/04/2008 Active Additional Information Patient not taking.Reported on 11/20/2023 RENAL MULTIVITAMIN/ZINC PO TABS None Entered 0 Active ASPIRIN 81 MG PO TABS 1 tablet daily 0 Active KlangooTOUCH ULTRASOFT LANCETS MISCIndications:Ty pe 2 diabetes mellitus with hemoglobin A1c goal of less than 8.0% ([facility]) Use as directed 2 times a day. 1 Box Dosing Unit 11 01/16/2017 Active cinacalcet (SENSIPAR) 30 MG Tablet Take 1 Tab by mouth daily with dinner. 90 Tab 3 11/07/2017 Active Insulin Pen Needle (BD PEN NEEDLE SHORT U/F) 31G X 8 MMIndications:DM type 2 nursing care encounter ([facility]) USE DIRECTED WITH L[place]EMIR PENS TWICE A DAY 100 Each 5 2019 Active Additional Information Patient not taking.Reported on 12/01/2023 Blood Glucose Monitoring Suppl (Landis+Gyr ULTRA 2) w/Device KIT Use to check blood sugar 2 times a day; E11.9. 1 Kit 0 10/22/2019 Active Glucose Blood (Zilker LabsUCH ULTRA BLUE) STRP Use to check blood [...] EVERY DAY 90 Tablet 1 07/18/2023 Active oxyCODONE HCl 15 MG Oral Tablet (Roxicodone)Indica tions:MEDICATION USE AGREEMENT,Arthriti s of left shoulder region,Spondylolis thesis of lumbosacral region,H/O bilateral hip replacements Take 1 Tablet by mouth every 8 hours as needed (pain). 90 Tablet 0 09/26/2023 Active Trulicity 0.75 MG/0.5ML Subcutaneous Solution Pen-injector [...] when flaring 454 g 0 12/01/2023 Active oxyCODONE HCl 15 MG Oral Tablet (Roxicodone)Indica tions:MEDICATION USE AGREEMENT,Arthriti s of left shoulder region,Spondylolis thesis of lumbosacral region,H/O bilateral hip replacements Take 1 Tablet by mouth every 8 hours as needed (pain). 90 Tablet 0 12/29/2023 Active Simvastatin 20 MG Oral Tablet (Zocor)Indications :Dyslipidemia, goal LDL below 70 TAKE ONE TABLET BY MOUTH ONCE A DAY AT BEDTIME 90 Tablet 0 01/12/2024 Active documented as of this encounter (statuses as of 01/28/2024) Active Problems Problem Noted Date Diagnosed Date [...] will 2017 consider transplant needs 20lb -HD [place] [facility]? T,R, S. Since January 2013. Spondylolisthesis [...] as of this encounter (statuses as of 01/28/2024) Resolved Problems Problem Noted Date Diagnosed Date Resolved Date Thoracic compression fracture 04/09/2021 04/13/2021 Overview: Mult levels 04/09 [facility] + lumbar Respiratory symptoms 01/08/2020 021 Fever of unknown origin (FUO) 01/07/2020 02/26/2021 Respiratory infection 01/07/20202020 Cellulitis 06/28/2016 09/08/2016 Abnormal vaginal bleeding 02/12/2016 Cellulitis 02/07/2016 09/08/2016 UTI (urinary tract infection), bacterial 04/19/2014 05/02/2014 Hypotension 04/15/2014 05/02/2014 Compression of lumbar vertebra 02/03/2013 06/07/2021 Overview: Mult levels noted 04/09 [facility] CT also thoracic CKD (chronic [...] 140/90 08/25/200909/06 Overview: Modified 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 care home current use of ant icoagulant therapy [...] s/p B/L stents Sees Dr. Angel in [place] for Urology Osteoarthritis of hip 2018 documented as of this encounter (statuses as of 01/28/2024) Immunizations Name Administration Dates Next Due COVID-19 mRNA, LNP-s, No Pre serve, 2-Dose Series ([facility]) 09/11/2021,01/02/2021,12/12/2020 COVID-19, mRNA, LNP-s, PF, B ooster, [...] 1:40 PM EDT Office Visit Family Practice [facility] [address] [place] [address] Bianca Baron CRNP [address] [place] [address] 03/10/2024 10:00 AM EDT Office Visit Otolaryngology [facility] [address] [place] [address] Te Vann, [address] [place] [address] 03/17/2024 11:00 AM EDT Cardiac Studies Cardiac Studies, [facility] [address] [place] [address] 03/24/2024 11:00 AM EDT Office Visit Cardiology, [facility] [address] [place] [address] Rosalee Cardoso CRNP [address] [place] [address] 03/25/2024 10:30 AM EDT Office Visit [facility] [address] [place] [address] Arlene La MD [address] [place], [place] [address] [address] 03/29/2024 1:20 PM EDT Office Visit Dermatology [address] [place] [address] Coco Ivan PA-C [address] [place] [address] [place] [address] 04/05/2024 11:00 AM EDT Imaging [facility] [address] [place] [address] 05/07/2024 12:20 PM EDT Office Visit Family Practice [facility] [address] [place] [address] Willie [place] MD [address] [place] [address] Pending Results Name Type Priority Associated Diagnoses Date /Time CBC WITH WBC DIFFERENTIAL Lab Routine Anemia in ESRD (end-stage renal disease) ([facility]) 01/28/2024 10:57 AM EDT RETICULOCYTE PANEL Lab Routine Anemia in ESRD (end-stage renal disease) ([facility]) 01/28/2024 10:57 AM EDT VITAMIN B12 Lab Routine Anemia in ESRD (end-stage renal disease) ([facility]) 01/28/2024 10:57 AM EDT FOLIC ACID Lab Routine Anemia in ESRD (end-stage renal disease) ([facility]) 01/28/2024 10:57 AM EDT CBC Lab Routine Anemia in ESRD (end-stage renal disease) ([facility]) 01/28/2024 10:57 AM EDT DIFFERENTIAL, AUTOMATED Lab Routine Anemia in ESRD (end-stage renal disease) ([facility]) 01/28/2024 10:57 AM EDT Scheduled Procedures Name Priority Associated Diagnoses Date/Ti [...] this encounter Medical Devices Implanted Type Area Rough And Truing Machine Operator Device Identifier Shelf Expiration Date Model / Serial / Lot Cement Antibiotic Bone - [id number] Implanted:Qty: 3 on 04/28/2012 at OR [facility] Right: Hip VERONICA : ORTHOPAEDICS 11/19/2013 6197-9-010 / / [id number] Prostalac Acetabular Cup Implanted:Qty: 1 on 04/28/2012 at OR [facility] Right: Hip SUBHA & SUBHA DEPUY 05/19/2017 1541-42-320 / / [id number] Prostalac Hip [place] Size 105mm Std Offset Implanted:Qty: 1 on 04/28/2012 at OR [facility] Right: Hip SUBHA & SUBHA DEPUY 10/19/2021 1541-01-000 / / [id number] Description:Prostalac Hip St em Size 105mm Offset (Depuy) Ball Artic Wiliam Brn 32 Plus5 - [id number] Implanted:Qty: 1 on 04/28/2012 at [facility] Right: Hip JNJ : DEPUY ORTHOPAEDICS 10/19/2016 [id number] / / [id number] Rest Mod Prox Cone Body 23 +11 - [id number] Implanted:Qty: 1 on 04/14/2014 at [facility] Right: Hip VERONICA : ORTHOPAEDICS 10/19/2018 6276-1-123 / / [id number] Head Fem 28mm - [id number] Implanted:Qty: 1 on 04/14/2014 at [facility] Right: Hip VERONICA : ORTHOPAEDICS 08/19/2018 6570-0-228 / / [id number] Insert 28mm - [id number] Implanted:Qty: 1 on 04/14/2014 at [facility] Right: Hip VERONICA : ORTHOPAEDICS 02/16/2019 1236-2-848 / / [id number] Cable/Sle Beaded D/M 20 Vit - [id number] Implanted:Qty: 1 on 04/14/2014 at [facility] Right: Hip VERONICA : ORTHOPAEDICS 10/19/2017 6704-0-520 / / [id number] Cable/Sle Beaded D/M 20 Vit - [id number] Implanted:Qty: 1 on 04/14/2014 at [facility] Right: Hip VERONICA : ORTHOPAEDICS 10/19/2017 6704-0-520 / / [id number] Tritanium Revision Acetabular - [id number] Implanted:Qty: 1 on 04/14/2014 at [facility] Right: Hip VERONICA : ORTHOPAEDICS 05/19/2018 509-02-56E / / [id number] Screw Bone Osteolock 24 - [id number] Implanted:Qty: 1 on 04/14/2014 at [facility] Right: Hip VERONICA : ORTHOPAEDICS 02/16/2019 5260-5-024 / / [id number] Screw Bone Osteolock 35 - [id number] Implanted:Qty: 1 on 04/14/2014 at [facility] Right: Hip VERONICA : ORTHOPAEDICS 03/19/2017 5260-5-035 / / [id number] Liner 42mm - [id number] Implanted:Qty: 1 on 04/14/2014 at [facility] Right: Hip VERONICA : ORTHOPAEDICS 11/19/2018 626-00-42E / / [id number] Hip S Mod Conical Dis 00w525 - [id number] Implanted:Qty: 1 on 04/14/2014 at OR [facility] Right: Hip VERONICA : ORTHOPAEDICS 12/17/2018 6276-7-017 / / [id number] documented as of this encounter Visit Diagnoses Diagnosis Anemia in ESRD (end-stage renal disease) ([facility]) Anemia in chronic kidney disease documented in this encounter Advance Directives Latest [...] and were consensually agreed upon. Care Teams Graduating Machine Operator Relationship Specialty Start Date End Date Willie [place] MD [address] [facility] [place] [address] PCP - General Family Medicine 11/22/16 documented as of this encounter
--- OUTSIDE RECORDS SUMMARY | 2024-02-27 09:33 | External Medical Summary ---
Author Name Unknown Address Unknown Organization [id number]:LABORATORY [facility] - [facility] [address] [facility] [address] Laboratory Report Ordering Provider Test Date Status NOMI GERONIMO 01/28/2024 10:57:15 Final Observation Date Value Abnormality Reference (Units ) Status Retic, % (auto) 01/28/2024 10:57:15 1.18 0.80-1.90 (%) Final Reticulocytes, Absolute 01/28/2024 10:57:15 44.6 31.3-100.1 (K/uL) Final Reticulocyte fraction, immature 01/28/2024 10:57:15 8.7 2.5-20.6 (%) Final Reticulocyte HGB 01/28/2024 10:57:15 33.7 29.7-37.4 (pg) Final Performing Location LABORATORY [facility] - [address] [facility] [address]
--- OUTSIDE RECORDS SUMMARY | 2024-02-27 09:33 | External Medical Summary ---
Author Name Unknown Address Unknown Organization [id number]:LABORATORY [facility] - [address] [facility] [address] Laboratory Report Ordering Provider Test Date Status NOMI GERONIMO 01/28/2024 10:57:15 Final Observation Date Value Abnormality Reference (Units ) Status SYNC LEUKOCYTES IN BLOOD BY AUTOMATED COUNT 01/28/2024 10:57:15 7.61 4.00-10.80 (K/uL) Final Segs 01/28/2024 10:57:15 64.1 40.0-75.0 (%) Final Lymphs % 01/28/2024 10:57:15 18.0 18.0-42.0 (%) Final Monos 01/28/2024 10:57:15 8.8 1.0-11.0 (%) Final Eosinophils 01/28/2024 10:57:15 7.9 Above high normal 0.0-6.0 (%) Final Basos 01/28/2024 10:57:15 0.9 0.0-2.0 (%) Final Immature Granulocyte, Percent 01/28/2024 10:57:15 0.3 0.0-2.0 (%) Final Absolute Segs 01/28/2024 10:57:15 4.88 1.80-7.70 (K/uL) Final Lymphs, absolute 01/28/2024 10:57:15 1.37 1.00-4.80 (K/ul) Final Monos, Abs 01/28/2024 10:57:15 0.67 0.00-1.10 (K/uL) Final Eos, Abs 01/28/2024 10:57:15 0.60 0.00-0.70 (K/uL) Final Basos, Abs 01/28/2024 10:57:15 0.07 0.00-0.20 (K/uL) Final Immature Granulocytes, Number 01/28/2024 10:57:15 0.02 0.00-0.20 (K/uL) Final Performing Location LABORATORY [facility] - [address] [facility] [address]
--- OUTSIDE RECORDS SUMMARY | 2024-02-27 09:33 | External Medical Summary | Summary of Care ---
Author Name Unknown Organization [facility] Address [address] [place] [address] Phone [phone] Care Team Providers Care Photographic Artist Name Role Phone Willie Pizarro MD Primary Care Provider + Reason for Visit * Reason Onset Date Comments Medication Refill 01/27/2024 Encounter Details Date Type Department Care Team (Late st Contact Info) Description 01/27/2024 Refill Family Practice [facility] [address] [place] [address] Willie Pizarro MD [address] [place] [address] MEDICATION USE AGREEMENT; Arthritis of left shoulder [...] SYRINGE-NEEDLE U-100 30G X 1/2" 1 ML MISCIndications: DM type 2, goal A1c below 7 Use as directed 1 Box of 100 11 8 Active Additional Information Patient not taking.Reported on 11/20/2023 RENAL MULTIVITAMIN/ZIN C PO TABS None Entered 0 Active ASPIRIN 81 MG PO TABS 1 tablet daily 0 Active ONETOUCH ULTRASOFT LANCETS MISCIndications: Type 2 diabetes mellitus with hemoglobin A1c goal of less than 8.0% (FORMERLY [facility]) Use as directed 2 times a day. 1 Box Dosing Unit 11 7 Active cinacalcet (SENSIPAR) 30 MG Tablet Take 1 Tab by mouth daily with dinner. 90 Tab 3 8 Active Insulin Pen Needle (BD PEN NEEDLE SHORT U/F) 31G X 8 MMIndications:DM type 2 nursing care encounter (FORMER[facility]) USE DIRECTED WITH LEVEMIR PENS TWICE A DAY 100 Each 5 9 Active Additional Information Patient not taking.Reported on 12/01/2023 Blood Glucose Monitoring Suppl ([employer] ULTRA 2) w/Device KIT Use to check blood sugar 2 times a day; E11.9. 1 Kit 0 0 Active Glucose Blood ([employer] ULTRA BLUE) STRP Use to check blood sugar 2 times a day; E11.9. 200 Box Dosing Unit 3 0 Active Breo Ellipta 200-25 MCG/INH Inhalation Aerosol Powder Breath Activated (fluticasone furoate-vilanter ol)Indications:S inobronchitis Inhale 1 Puff by mouth daily. 1 [...] HFA 108 (90 Base) MCG/ACT Inhalation Aerosol SolutionIndicati ons:Bronchitis, complicated TAKE 2 PUFFS BY MOUTH EVERY [...] WEEK . 6 mL 3 3 Active Betamethasone Dipropionate 0.05 % External OintmentIndicati ons:Plaque psoriasis Apply 2x daily (or more if itchy instead of scratching) to affected psoriasis spots on arms/legs until resolved 50 g 0 4 Active Triamcinolone Acetonide 0.1 % External Ointment (Aristocort)Ruba cations:Inverse psoriasis Apply 2x daily during week (off on weekends) to psoriasis under breasts until resolved, then when flaring 454 g 0 4 Active Simvastatin 20 MG Oral Tablet (Zocor)Indicatio ns:Dyslipidemia, goal LDL below 70 TAKE ONE TABLET BY MOUTH ONCE A DAY AT BEDTIME 90 Tablet 0 4 Active oxyCODONE HCl 15 MG Oral Tablet (Roxicodone)Ruba cations:MEDICATI ON USE AGREEMENT,Arthri tis of left shoulder region,Spondylol isthesis of lumbosacral region,H/O bilateral hip replacements Take 1 Tablet by mouth every 8 hours as needed (pain). 90 Tablet 0 4 Active oxyCODONE HCl 15 MG Oral Tablet (Roxicodone)Ruba cations:MEDICATI ON USE AGREEMENT,Arthri tis of left shoulder region,Spondylol isthesis of lumbosacral region,H/O bilateral hip replacements Take 1 Tablet by mouth every 8 hours as needed (pain). 90 Tablet 0 3 01/28/20 24 Discontinued oxyCODONE HCl 15 MG Oral Tablet (Roxicodone)Ruba cations:MEDICATI ON USE AGREEMENT,Arthri tis of left shoulder region,Spondylol isthesis of lumbosacral region,H/O bilateral hip replacements Take 1 Tablet by mouth every 8 hours as needed (pain). 90 Tablet 0 4 01/27/20 24 Discontinued(Ref ill) oxyCODONE HCl 15 MG Oral Tablet (Roxicodone)Ruba cations:MEDICATI ON USE AGREEMENT,Arthri tis of left shoulder region,Spondylol isthesis of lumbosacral region,H/O bilateral hip replacements Take 1 Tablet by mouth every 8 hours as needed (pain). 90 Tablet 0 4 01/28/20 24 Discontinued documented as of this encounter [...] will 2017 consider transplant needs 20lb -HD [facility]? T,R, S. Since January 2013. Spondylolisthesis of lumbosacral region 02/04/20 Overview: L5-S1 level with grade 1 anterolisthesis of L4 on L5 and grade 1 retrolisthesis of L5 on S1 Anemia in ESRD (end-stage renal disease) 12/30/ 013 MEDICATION USE AGREEMENT 11/12/2012 Overview: For [...] 04/13/2021 Overview: Mult levels 04/09 CT [facility] + lumbar Respiratory symptoms 01/08/2020 021 Fever of unknown origin (FUO) 01/07/2020 02/26/2021 Respiratory infection 01/07/20202020 Cellulitis 06/28/2016 09/08/2016 Abnormal vaginal bleeding 02/12/2016 Cellulitis 02/07/2016 09/08/2016 UTI (urinary tract infection), bacterial 04/19/2014 05/02/2014 Hypotension 04/15/2014 05/02/2014 Compression of lumbar vertebra 02/03/2013 06/07/2021 Overview: Mult levels noted 04/[address] [facility] [address] also thoracic CKD (chronic kidney [...] 140/90 08/25/200909/06 Overview: Modified 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 [facility] current use of ant icoagulant therapy 04/19/2009 [...] update of inactive term BENIGN HYPERTENSION 08/25/20 09 Overview: Modified 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 Menopause 02/07/2016 Tachycardia 02/07/2016 Pulmonary embolus 10/16/2010 Other psoriasis and similar disorders 02/07/2016 Hemorrhoids 02/07/2016 Renal function test abnormal 07/20/2014 Overview: Prior ARF secondary to complications from incarcerated hernia and bowel obstruction. Also prior h/o multiple kidney stones - is s/p B/L stents Sees Dr. Angel in [place] for U[facility] Osteoarthritis of hip 2018 documented [...] Influenza, Split, I IV3, With Preserve, Inj 08/20/2015,07/20/2014,07/06/2013,03/2012,07/10/2011,07/23/2010,07/27/20 09,07/29/2008,08/26/2007,08/14/2006,1 11/04/2004,10/31/2004,08/17/2003,09/03,09/14/2001,10/01/2000 10/01/2001 Seasonal Influenza, Trivalen t, [...] (15 years old or older) No 01/07/20 Cognitive Status Response Date of Assessm ent Because of a physical, menta l, or emotional condition, do you have serious difficulty concentrating, remembering, or making decisions? (5 years old or older) No 01/07/2020 documented as of this encounter Miscellaneous Notes * Addendum Note - Willie Pizarro MD - 01/28/2024 5:02 PM EDTAddended by: WILLIE PIZARRO on: 01/28/2024 05:02 PM Modules accepted: Orders * Telephone Encounter - Willie Pizarro MD - 01/28/2024 5:01 PM EDTSigned Prescriptions: Disp Refills oxyCODONE HCl 15 MG Oral Tablet (Roxicodon*90 Tab*0 Sig: Take 1 Tablet by mouth every 8 hours as needed (pain). Authorizing Provider: WILLIE PIZARRO * Telephone Encounter - Portillo Dodson [facility] - 01/28/2024 4:11 PM EDTPending Prescriptions: Disp Refills oxyCODONE HCl 15 MG Oral Tablet (Roxicodon*90 Tab*0 Sig: Take 1 Tablet by mouth every 8 hours as needed (pain). Electronically signed by Portillo Dodson [facility] at 01/28/2024 4:11 PM EDT * Telephone Encounter - Portillo Dodson [facility] - 01/28/2024 4:11 PM EDT I have reviewed the patients controlled substance dispensing history in the Prescription Drug Monitoring Program in compliance with the [facility] regulations before prescribing a controlled substance. PDMP checked on 01/28/2024. Pending Prescriptions: Disp Refills oxyCODONE HCl 15 MG Oral Tablet (Roxicodo*90 Tab*0 Sig: Take 1 Tablet by mouth every 8 hours as needed (pain). Last Visit: 11/20/2023 (in office), 01/21/2024 (telemedicine) Next Visit: 01/29/2024 Date medication was last filled: 12/31/2023 Date medication is due for refill: 01/29/2024 Pharmacy: [facility] Is this request for a controlled substance? Yes and Urine Drug Screen was completed Toxicology results: Results for orders placed or performed in visit on 04/30/23 PAIN MANAGEMENT DRUG PANEL, URINE W/ INTERPRETATION Result Value Compliance Interpretation Based on the medication information provided: The positive oxycodone screening result is CONSISTENT with oxycodone use. Confirmatory testing is available upon request. Amphetamines Screen, U Negative Benzodiazepines Screen, U Negative Cannabinoids Screen, U Negative Cocaine Metabolite Screen, U Negative Fentanyl Screen, U Negative Hydrocodone Screen, U Negative Methadone Metabolite Screen, U Negative Morphine/Codeine Screen, U Negative Oxycodone Screen, U Positive (A) Valid Interpretation Normal Creatinine, U 33 Narrative Cutoff Concentrations: Drug Level Amphetamines 500 ng/mL Benzodiazepines 100 ng/mL Cannabinoids 50 ng/mL Cocaine Metabolite 150 ng/mL Fentanyl 1 ng/mL Hydrocodone / Hydromorphone 300 ng/mL Methadone Metabolite 100 ng/mL Morphine / Codeine 300 ng/mL Oxycodone / Oxymorphone 100 ng/mL Screening results are presumptive and can only be used for medical purposes. Confirmatory testing is available upon request. *Note: Due to a large number of results and/or encounters for the requested time period, some results have not been displayed. A complete set of results can be found in Results Review. Please approve if appropriate. Thanks, Portillo Dodson Pharm.D. Clinical Pharmacist [facility] ([facility])(Formerly Telepharmacy) [phone] 01/28/2024, 4:11 PM Electronically signed by Portillo Dodson [facility] at 01/28/2024 4:11 PM EDT * Telephone Encounter - Duke Schulz can striper - 01/28/2024 3:49 PM EDT Pt calling to check on status of refill request. Caller can be reached at [phone]. Thank You, Duke Schulz [facility] Associate Professor Of Pathology II [facility] (Formerly Telepharmacy) 01/28/2024, 3:49 PM * Telephone Encounter - Isac Garber PHARM Tech - 01/27/2024 12:45 PM EDT Pt will be leaving town and requesting potato picker, if appropriate. Did you pend patient's preferred pharmacy and medication before forwarding?yes Pharmacy: [facility] Pending Prescriptions: Disp Refills oxyCODONE HCl 15 MG Oral Tablet (Roxicodo*90 Tab*0 Sig: Take 1 Tablet by mouth every 8 hours as needed (pain). Last Visit: 11/20/2023 (in office), 01/21/2024 (telemedicine) Next Visit: 01/29/2024 If no future appointments scheduled, and last appointment is greater than a year ago, please schedule patient for a follow-up appointment Last date the medication was ordered: 12/29/2023 Is this request for a controlled substance?Yes, What was the last refill date 12/29/2023 w/ and dosage 15 mg and Urine Drug Screen was completed Urine Drug Screen: Results for orders placed or performed in visit on 04/30/23 PAIN MANAGEMENT DRUG PANEL, URINE W/ INTERPRETATION Result Value Compliance Interpretation Based on the medication information provided: The positive oxycodone screening result is CONSISTENT with oxycodone use. Confirmatory testing is available upon request. Amphetamines Screen, U Negative Benzodiazepines Screen, U Negative Cannabinoids Screen, U Negative Cocaine Metabolite Screen, U Negative Fentanyl Screen, U Negative Hydrocodone Screen, U Negative Methadone Metabolite Screen, U Negative Morphine/Codeine Screen, U Negative Oxycodone Screen, U Positive (A) Valid Interpretation Normal Creatinine, U 33 Narrative Cutoff Concentrations: Drug Level Amphetamines 500 ng/mL Benzodiazepines 100 ng/mL Cannabinoids 50 ng/mL Cocaine Metabolite 150 ng/mL Fentanyl 1 ng/mL Hydrocodone / Hydromorphone 300 ng/mL Methadone Metabolite 100 ng/mL Morphine / Codeine 300 ng/mL Oxycodone / Oxymorphone 100 ng/mL Screening results are presumptive and can only be used for medical purposes. Confirmatory testing is available upon request. *Note: Due to a large number of results and/or encounters for the requested time period, some results have not been displayed. A complete set of results can be found in Results Review. Patient Phone Numbers Labs: Lab Results Component [...] 1:40 PM EDT Office Visit Family Practice [facility] [address] [place] [address] Bianca Baron CRNP [address] [place] [address] 03/10/2024 10:00 AM EDT Office Visit Otolaryngology [facility] [address] [place] [address] Te Vann DO [address] [place] [address] 03/17/2024 11:00 AM EDT Cardiac Studies Cardiac Studies, [facility] [address] [place] [address] 03/24/2024 11:00 AM EDT Office Visit Cardiology, [facility] [address] [place] [address] Rosalee Cardoso CRNP [address] [place] [address] 03/25/2024 10:30 AM EDT Office Visit [facility] Surgery [facility] [address] [place] [address] Arlene La MD [address] [place] [address] 03/29/2024 1:20 PM EDT Office Visit Dermatology [address] [place] [address] Coco Ivan PA-C [address] [place] [address] [place] [address] 04/05/2024 11:00 AM EDT Imaging Radiology [facility] [address] [place] [address] 05/07/2024 12:20 PM EDT Office Visit Family Practice [facility] [address] [place] [address] Willie Pizarro MD [address] [place] [address] Scheduled Procedures Name Priority Associated Diagnoses Date/Ti [...] this encounter Medical Devices Implanted Type Area Plastic Production Machine Setter Device Identifier Shelf Expiration Date Model / Serial / Lot Cement Antibiotic Bone - [id number] Implanted:Qty: 3 on 04/28/[address] [facility] [place] Hip VERONICA : ORTH[employer] 11/19/2013 6197-9-010 / / [id number] Prostalac Acetabular Cup Implanted:Qty: 1 on 04/28/[address] [facility] [place]: Hip SUBHA & SUBHA DEPUY 05/19/2017 1541-42-320 / / [id number] Prostalac Hip Stem Size 105mm Std Offset Implanted:Qty: 1 on 04/28/[address] [facility]: Hip SUBHA & SUBHA DEPUY 10/19/2021 1541-01-000 / / [id number] Description:Prostalac Hip St em Size 105mm Offset (Depuy) Ball Artic Wiliam Brn 32 Plus5 - [id number] Implanted:Qty: 1 on 04/28/[address] [facility]: Hip JNJ : DEPU[employer] ORTHOPAEDICS 10/19/2016 [id number] / / [id number] Rest Mod Prox Cone Body 23 +11 - [id number] Implanted:Qty: 1 on 04/14/2014 at [facility] Right: Hip VERONICA : ORTHOPA[employer] 10/19/2018 6276-1-123 / / [id number] Head Fem 28mm - [id number] Implanted:Qty: 1 on 04/14/2014 at [facility] Right: Hip VERONICA : ORTH[employer] 08/19/2018 6570-0-228 / / [id number] Insert 28mm - [id number] Implanted:Qty: 1 on 04/14/[address] [facility] [place]: Hip [employer]ICA : ORTH[employer] 02/16/2019 1236-2-848 / / [id number] Cable/Sle Beaded D/M 20 Vit - [id number] Implanted:Qty: 1 on 04/14/2014 at [facility] Right: Hip VERONICA : ORTH[employer] 10/19/2017 6704-0-520 / / [id number] Cable/Sle Beaded D/M 20 Vit - [id number] Implanted:Qty: 1 on 04/14/2014 at [facility] Right: Hip VERONICA : ORTHOPA[employer] 10/19/2017 6704-0-520 / / [id number] Tritanium Revision Acetabular - [id number] Implanted:Qty: 1 on 04/14/2014 at [facility] Right: Hip VERONICA : ORTHOPA[employer]ICS 05/19/2018 [id number] / / [id number] Screw Bone Osteolock 24 - [id number] Implanted:Qty: 1 on 04/14/2014 at [facility] Right: Hip VERONICA : ORTHOPA[employer] 02/16/2019 5260-5-024 / / [id number] Screw Bone Osteolock 35 - [id number] Implanted:Qty: 1 on 04/14/2014 at [facility] Right: Hip VERONICA : ORTHOPA[employer] 03/19/2017 5260-5-035 / / [id number] Liner 42mm - [id number] Implanted:Qty: 1 on 04/14/2014 at [facility] Right: Hip VERONICA : ORTHOPA[employer] 11/19/2018 626-00-42E / / [id number] Hip S Mod Conical Dis [id number] - [id number] Implanted:Qty: 1 on 04/14/[address] [facility] [place]: Hip VERONICA : ORTHOPA[employer] 12/17/2018 6276-7-017 / / [id number] documented as of this encounter Visit Diagnoses [...] and were consensually agreed upon. Care Teams Photographic Artist Relationship Specialty Start Date End Date Willie Pizarro MD [address] [facility] [place] [address] PCP - General Family Medicine 11/22/16 documented as of this encounter
--- OUTSIDE RECORDS SUMMARY | 2024-02-27 09:33 | External Medical Summary ---
Author Name Unknown Address Unknown Organization [id number]:LABORATORY [facility] - [address] [place] [address] Laboratory Report Ordering Provider Test Date Status NOMI GERONIMO 01/28/2024 10:57:15 Final Observation Date Value Abnormality Reference (Units ) Status Folic Acid 01/28/2024 10:57:15 15.9 >4.5 (ng/ mL) Final Performing Location LABORATORY [facility] - [address] [place] [address]
--- OUTSIDE RECORDS SUMMARY | 2024-02-27 09:33 | External Medical Summary ---
Author Name Unknown Address Unknown Organization [id number]:[facility] [place] [facility] [address] [facility] [address] Laboratory Report Ordering Provider Test Date Status NOMI GERONIMO 01/28/2024 10:57:15 Final Observation Date Value Abnormality Reference (Units ) Status WBC, Total 01/28/2024 10:57:15 7.61 4.00-10.80 (K/uL) Final RBC 01/28/2024 10:57:15 3.78 3.85-5.15 (M/uL) Final Hemoglobin 01/28/2024 10:57:15 11.7 Below low normal 12.0-15.3 (g/dL) Final HCT 01/28/2024 10:57:15 38.5 36.0-45.2 (%) Final MCV 01/28/2024 10:57:15 101.9 81.5-97.5 (fL) Final MCH 01/28/2024 10:57:15 31.0 27.0-34.0 (pg) Final MCHC 01/28/2024 10:57:15 30.4 32.0-36.0 (g/dL) Final RDW 01/28/2024 10:57:15 13.8 11.5-15.5 (%) Final Platelets 01/28/2024 10:57:15 268 140-400 (K/uL) Final MPV 01/28/2024 10:57:15 10.5 6.6-11.1 (fL) Final Nucleated erythrocytes/100 leukocytes [Ratio] in Blood by Automated count 01/28/2024 10:57:15 0 <=0 (/100 WBCs) Final Performing Location [facility] [place] [address] [place] [address]
--- OUTSIDE RECORDS SUMMARY | 2024-02-27 09:33 | External Medical Summary | Summary of Care ---
Author Name Unknown Organization [facility] Address [address] [place] [address] Phone [phone] Care Team Providers Care Topography Technician Name Role Phone Willie Pizarro MD Primary Care Provider + Reason for Visit * Reason Onset Date Comments Medication Refill 01/27/2024 Encounter Details Date Type Department Care Team (Late st Contact Info) Description 01/27/2024 Refill Family Practice [facility] [place] [address] Willie Pizarro MD [address] [facility] [address] MEDICATION USE AGREEMENT; Arthritis of left shoulder [...] goal of less than 8.0% ([facility]) Use as directed 2 times a day. 1 Box Dosing Unit 11 7 Active cinacalcet (SENSIPAR) 30 MG Tablet Take 1 Tab by mouth daily with dinner. 90 Tab 3 8 Active Insulin Pen Needle (BD PEN NEEDLE SHORT U/F) 31G X 8 MMIndications:DM type 2 nursing care encounter ([facility]) USE DIRECTED WITH LEVEMIR PENS TWICE A DAY 100 Each 5 9 Active Additional Information Patient not taking.Reported on 12/01/2023 Blood Glucose Monitoring Suppl ([employer] ULTRA 2) w/Device KIT Use to check blood sugar 2 times a day; E11.9. 1 Kit 0 0 Active Glucose Blood (W[employer]UCH ULTRA BLUE) STRP Use to check blood [...] will 2017 consider transplant needs 20lb -HD [facility]? T,R, S. Since January 2013. Spondylolisthesis [...] 04/09/2021 04/13/2021 Overview: Mult levels 04/09 CT [facility] + lumbar Respiratory symptoms 01/08/2020 021 Fever of unknown origin (FUO) 01/07/2020 02/26/2021 Respiratory infection 01/07/20202020 Cellulitis 06/28/2016 09/08/2016 Abnormal vaginal bleeding 02/12/2016 Cellulitis 02/07/2016 09/08/2016 UTI (urinary tract infection), bacterial 04/19/2014 05/02/2014 Hypotension 04/15/2014 05/02/2014 Compression of lumbar vertebra 02/03/2013 06/07/2021 Overview: Mult levels noted 04/[address] [facility] [address] also thoracic CKD (chronic [...] 140/90 08/25/200909/06 Overview: Modified 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 senior care current use of ant icoagulant therapy 04/19/2009 [...] s/p B/L stents Sees Dr. Angel in [place] for Urology Osteoarthritis of hip 2018 documented [...] PIZARRO * Telephone Encounter - Portillo Dodson [facility] - 01/28/2024 4:11 PM EDT Pending Prescriptions: Disp Refills oxyCODONE HCl 15 MG Oral Tablet (Roxicodon*90 Tab*0 Sig: Take 1 Tablet by mouth every 8 hours as needed (pain). * Telephone Encounter - Portillo Dodson [facility] - 01/28/2024 4:11 PM EDT I have reviewed the patients controlled substance dispensing history in the Prescription Drug Monitoring Program in compliance with the [facility] regulations before prescribing a controlled substance. PDMP checked on 01/28/2024. Pending Prescriptions: Disp Refills oxyCODONE HCl 15 MG Oral Tablet (Roxicodo*90 Tab*0 Sig: Take 1 Tablet by mouth every 8 hours as needed (pain). Last Visit: 11/20/2023 (in office), 01/21/2024 (telemedicine) Next Visit: 01/29/2024 Date medication was last filled: 12/31/2023 Date medication is due for refill: 01/29/2024 Pharmacy: [facility] Is this request for a [...] Pharmacist Centralized Clinical Pharmacy Services (CCPS)(Formerly Telepharmacy) [phone] 01/28/2024, 4:11 PM * Telephone Encounter - Duke Schulz PHARM Tech - 01/28/2024 3:49 PM EDT Pt calling to check on status of refill request. Caller can be reached at [phone]. Thank You, Duke Schulz [facility] Pharmacy Technician Program Director II Centralized Clinical Pharmacy Services (Formerly Telepharmacy) 01/28/2024, 3:49 PM * Telephone Encounter - Isac Garber PHARM Tech - 01/27/2024 12:45 PM EDT Pt will be leaving town and requesting sweet pickled fruit maker, if appropriate. Did you pend patient's preferred pharmacy and medication before forwarding?yes Pharmacy: [facility] Pending Prescriptions: Disp Refills oxyCODONE [...] was the last refill date 12/29/2023 w/ [id number] and dosage 15 mg and Urine Drug [...] PM EDT Office Visit Family Practice [facility] [address] [place] [address] Bianca Baron CRNP [address] [place] [address] 03/10/2024 10:00 AM EDT Office Visit Otolaryngology [facility] [address] [place] [address] Te Vann DO [address] [place] [address] 03/17/2024 11:00 AM EDT Cardiac Studies Cardiac Studies, [facility] [address] [place] [address] 03/24/2024 11:00 AM EDT Office Visit Cardiology, [facility] [address] [place] [address] Rosalee Cardoso CRNP [address] [place] [address] 03/25/2024 10:30 AM EDT Office Visit [facility] Surgery [facility] [address] [place] [address] Arlene La MD [address] [facility] [address] 03/29/2024 1:20 PM EDT Office Visit Dermatology [address] [place] [address] Coco Ivan PA-C [address] [place] [address] [place] [address] 04/05/2024 11:00 AM EDT Imaging Radiology [facility] 1st [facility] [address] [place] [address] 05/07/2024 12:20 PM EDT Office Visit Family Practice [facility] [address] [place] [address] Willie Pizarro MD [address] [place] [address] Scheduled Procedures Name Priority Associated Diagnoses Date/Ti [...] this encounter Medical Devices Implanted Type Area Destination Imagination Coordinator Device Identifier Shelf Expiration Date Model / Serial / Lot Cement Antibiotic Bone - [id number] Implanted:Q[place]: 3 [place]28[place] [facility] [place] VERONICA : ORTHOPAEDICS 11/19/2013 6197-9-010 / / [id number] Prostalac Acetabular Cup Implanted:Qty: 1 on 04/28/2012 [place] [facility] [place]: Hip SUBHA & SUBHA DEPUY 05/19/2017 1541-42-320 / / [id number] Prostalac Hip Stem Size 105mm Std Offset Implanted:Qty: 1 on 04/28/2012 [place] [facility] Right: Hip SUBHA & SUBHA DEPUY 10/19/2021 1541-01-000 / / [id number] Description:Prostalac Hip St em Size 105mm Offset (Depuy) Ball Artic Wiliam Brn 32 Plus5 - [id number] Implanted:Qty: 1 on 04/28/2012 [place] [facility] Right: Hip JNJ : DEPUY ORTHOPAEDICS 10/19/2016 [id number] / / [id number] Rest Mod Prox Cone Body 23 +11 - [id number] Implanted:Qty: 1 on 04/14/2014 at [facility] Right: Hip VERONICA : ORTHOPAEDICS 10/19/2018 6276-1-123 / / [id number] Head Fem 28mm - [id number] Implanted:Qty: 1 on 04/14/2014 at [facility] Right: Hip VERONICA : ORTHOPAEDICS 08/19/2018 6570-0-228 / / [id number] Insert 28mm - [id number] Implanted:Qty: 1 on 04/14/2014 at [facility] Right: Hip VERONICA : ORTHOPAEDICS 02/16/2019 1236-2-848 / / [id number] Cable/Sle Beaded D/M 20 Vit - [id number] Implanted:Qty: 1 on 04/14/2014 at [facility] Right: Hip VERONICA : ORTHOPAEDICS 10/19/2017 6704-0-520 / / [id number] Cable/Sle Beaded D/M 20 Vit - [id number] Implanted:Qty: 1 on 04/14/2014 at [facility] Right: Hip VERONICA : ORTHOPAEDICS 10/19/2017 6704-0-520 / / [id number] Tritanium Revision Acetabular - [id number] Implanted:Qty: 1 on 04/14/2014 at [facility] Right: Hip VERONICA : ORTHOPAEDICS 05/19/2018 509-02-56E / / [id number] Screw Bone Osteolock 24 - [id number] Implanted:Qty: 1 on 04/14/2014 at [facility] Right: Hip VERONICA : ORTHOPAEDICS 02/16/2019 5260-5-024 / / [id number] Screw Bone Osteolock 35 - [id number] Implanted:Qty: 1 on 04/14/2014 at [facility] Right: Hip VERONICA : ORTHOPAEDICS 03/19/2017 5260-5-035 / / [id number] Liner 42mm - [id number] Implanted:Qty: 1 on 04/14/2014 at [facility] Right: Hip VERONICA : ORTHOPAEDICS 11/19/2018 626-00-42E / / [id number] Hip S Mod Conical Dis 23e994 - [id number] Implanted:Qty: 1 on 04/14/2014 [place] [facility] Right: Hip VERONICA : ORTHOPAEDICS 12/17/2018 6276-7-017 / / [id number] documented as of this encounter Visit Diagnoses [...] and were consensually agreed upon. Care Teams Topography Technician Relationship Specialty Start Date End Date Willie Pizarro MD [address] [facility] [place] [address] PCP - General Family Medicine 11/22/16 documented as of this encounter
--- OUTSIDE RECORDS SUMMARY | 2024-02-27 09:33 | External Medical Summary | Summary of Care ---
Author Name Unknown Organization [facility] Address [address] [place] [address] Phone [phone] Care Team Providers Care Garment Form Assembler Name Role Phone Willie Epstein MD Primary Care Provider + Encounter Details Date Type Department Care Team (Late st Contact Info) Description 12/27/2023 Result Scan Unspecified Department <No scans attached> Allergies Active Allergy Reactions Criticality Noted Date [...] taking.Reported on 12/01/2023 Blood Glucose Monitoring Suppl (SplashMapsTOUCH ULTRA 2) w/Device KIT Use to check [...] needed (pain). 90 Tablet 0 12/29/2023 Active documented as of this encounter (statuses [...] will 2017 consider transplant needs 20lb -HD [facility]? T,R, S. Since January 2013. Spondylolisthesis of [...] 02/03/2013 06/07/2021 Overview: Mult levels noted 04/09 [facility] [address] also thoracic CKD (chronic kidney disease), [...] 140/90 08/25/200909/06 Overview: Modified 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 Angel in [place] for Urology Osteoarthritis of hip 2018 documented as of this encounter (statuses as of 01/28/2024) Immunizations Name Administration Dates Next Due COVID-19 mRNA, LNP-s, No Pre serve, 2-Dose Series ([employer]) 09/11/2021,01/02/2021,12/12/2020 COVID-19, mRNA, LNP-s, PF, B ooster, 100mcg/0.5mg (Moderna) 02/26/2022 Covid-19, Mrna, Lnp-s, Pf, B ivalent, 30 Mcg, IM, 12 yrs and above ([employer]) 07/01/2022 H1N1 2009 Influenza, IM 10/17/2009 Hepatitis [...] 1:40 PM EDT Office Visit Family Practice [facility] [address] [place] [address] Bianca Baron CRNP [address] [place] [address] 03/10/2024 10:00 AM EDT Office Visit Otolaryngology [facility] [address] [place] [address] Te Vann DO [address] [place] [address] 03/17/2024 11:00 AM EDT Cardiac Studies Cardiac Studies, [facility] [address] [place] [address] 03/24/2024 11:00 AM EDT Office Visit Cardiology, [facility] [address] [facility] [place] [address] Rosalee Cardoso CRNP [address] [place] [address] 03/25/2024 10:30 AM EDT Office Visit [facility] Surgery [facility] [address] [place] [address] Arlene La MD [address] [facility] [address] 03/29/2024 1:20 PM EDT Office Visit Dermatology [address] [place] [address] Coco Ivan PA-C [address] [place] [address] [place] [address] 04/05/2024 11:00 AM EDT Imaging Radiology [facility] 1st [facility] [address] [place] [address] 05/07/2024 12:20 PM EDT Office Visit Family Practice [facility] [address] [place] [address] Willie Epstein MD [address] [place] [address] Scheduled Procedures Name Priority Associated Diagnoses Date/Ti [...] this encounter Medical Devices Implanted Type Area Professor Of Surgery Device Identifier Shelf Expiration Date Model / Serial / Lot Cement Antibiotic Bone - [id number] Implanted:Qty: 3 on 04/28/2012 [place] [facility] [place] Hip VERONICA : ORTHOPAEDICS 11/19/2013 6197-9-010 / / [id number] Prostalac Acetabular Cup Implanted:Qty: 1 on 04/28/2012 at [facility] Right: Hip SUBHA & SUBHA DEPUY 05/19/2017 1541-42-320 / / [id number] Prostalac Hip Stem Size 105mm Std Offset Implanted:Qty: 1 on 04/28/2012 at [facility] Right: Hip SUBHA & SUBHA DEPUY 10/19/2021 1541-01-000 / / [id number] Description:Prostalac Hip St em Size 105mm Offset (Depuy) Ball Artic Wiliam Brn 32 Plus5 - [id number] Implanted:Qty: 1 on 04/28/2012 [place] [facility] [place]: Hip JNJ : DEPUY ORTHOPAEDICS 10/19/2016 [id number] / / [id number] Rest Mod Prox Cone Body 23 +11 - [id number] Implanted:Qty: 1 on 04/14/2014 [place] [facility] [place]: Hip VERONICA : ORTHOPAEDICS 10/19/2018 6276-1-123 / / [id number] Head Fem 28mm - [id number] Implanted:Qty: 1 on 04/14/2014 [place] [facility] [place]: Hip VERONICA : ORTHOPAEDICS 08/19/2018 6570-0-228 / / [id number] Insert 28mm - [id number] Implanted:Qty: 1 on 04/14/2014 [place] [facility] [place]: Hip VERONICA : ORTHOPAEDICS 02/16/2019 1236-2-848 / / [id number] Cable/Sle Beaded D/M 20 Vit - [id number] Implanted:Qty: 1 on 04/14/2014 [place] [facility] [place]: Hip VERONICA : ORTHOPAEDICS 10/19/2017 6704-0-520 / / [id number] Cable/Sle Beaded D/M 20 Vit - [id number] Implanted:Qty: 1 on 04/14/2014 [place] [facility] [place]: Hip EVRONICA : ORTHOPAEDICS 10/19/2017 6704-0-520 / / [id number] Tritanium Revision Acetabular - [id number] Implanted:Qty: 1 on 04/14/2014 [place] [facility] [place]: Hip VERONICA : ORTHOPAEDICS 05/19/2018 509-02-56E / / [id number] Screw Bone Osteolock 24 - [id number] Implanted:Qty: 1 on 04/14/2014 at [facility] Right: Hip VERONICA : ORTHOPAEDICS 02/16/2019 5260-5-024 / / [id number] Screw Bone Osteolock 35 - [id number] Implanted:Qty: 1 on 04/14/2014 [place] [facility] [place]: Hip VERONICA : ORTHOPAEDICS 03/19/2017 5260-5-035 / / [id number] Liner 42mm - [id number] Implanted:Qty: 1 on 04/14/2014 at [facility] Right: Hip VERONICA : ORTHOPAEDICS 11/19/2018 626-00-42E / / [id number] Hip S Mod Conical Dis 19h535 - [id number] Implanted:Qty: 1 on 04/14/2014 [place] [facility] [place]: Hip VERONICA : ORTHOPAEDICS 12/17/2018 6276-7-017 / / [id number] documented as of this encounter Procedures Procedure Name Priority Date/Time Associated Diagnosis Comments OUTSIDE LAB RESULTS 12/27/2023 documented in this encounter Results * OUTSIDE LAB RESULTS (12/27/2023) 12/27/2023 No Physician Data Unknown LABORATORY documented in this encounter Advance Directives Latest [...] and were consensually agreed upon. Care Teams Garment Form Assembler Relationship Specialty Start Date End Date Willie Esptein MD [address] [place] [address] PCP - General Family Medicine 11/22/16 documented as of this encounter
--- OUTSIDE RECORDS SUMMARY | 2024-02-27 09:33 | External Medical Summary | Summary of Care ---
Author Name Unknown Organization [facility] Address [address] [place] [address] Phone [phone] Care Team Providers Care Desulfurizer Hand Name Role Phone Willie Epstein MD Primary Care Provider + Reason for Visit * Reason Comments Wound Recheck R dorsal hand Encounter Details Date Type Department Care Team ([facility] st Contact Info) Description 01/28/2024 11:10 AM EDT Nurse Only Dermatology [address] [place] [address] [place], Nurse Derm [address] [place] [address] Wound Recheck (R dorsal hand) Allergies Active Allergy Reactions Criticality Noted Date [...] hemoglobin A1c goal of less than 8.0% ([facility]) Use as directed 2 times a day. 1 Box Dosing Unit 11 01/16/2017 Active cinacalcet (SENSIPAR) 30 MG Tablet Take 1 Tab by mouth daily with dinner. 90 Tab 3 11/07/2017 Active Insulin Pen Needle (BD PEN NEEDLE SHORT U/F) 31G X 8 MMIndications:DM type 2 nursing care encounter ([facility]) USE DIRECTED WITH LEVEMIR PENS TWICE A DAY 100 Each 5 2019 Active Additional Information Patient not taking.Reported on 12/01/2023 Blood Glucose Monitoring Suppl ([employer] ULTRA 2) w/Device KIT Use to check blood sugar 2 times a day; E11.9. 1 Kit 0 10/22/2019 Active Glucose Blood (Turned On DigitalTOUCH ULTRA BLUE) STRP Use to check blood [...] will 2017 consider transplant needs 20lb -HD [facility]? T,R, S. Since January 2013. Spondylolisthesis [...] 04/09/2021 04/13/2021 Overview: Mult levels 04/09 [facility] + lumbar Respiratory symptoms 01/08/2020 021 Fever of unknown origin (FUO) 01/07/2020 02/26/2021 Respiratory infection 01/07/20202020 Cellulitis 06/28/2016 09/08/2016 Abnormal vaginal bleeding 02/12/2016 Cellulitis 02/07/2016 09/08/2016 UTI (urinary tract infection), bacterial 04/19/2014 05/02/2014 Hypotension 04/15/2014 05/02/2014 Compression of lumbar vertebra 02/03/2013 06/07/2021 Overview: Mult levels noted 04/[address] [facility] [address] also thoracic CKD (chronic [...] 140/90 08/25/200909/06 Overview: Modified 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 assisted current use of ant icoagulant therapy 04/19/2009 [...] s/p B/L stents Sees Dr. Angel in [place] for Urology Osteoarthritis of hip 2018 documented [...] No 01/07/2020 documented as of this encounter Nursing Notes * Elda Ma LPN - 01/28/2024 11:04 AM EDT Patient identified by full name and date of . Chief Complaint Patient presents with Wound Recheck R dorsal hand Patient evaluated by provider. documented in this encounter Plan of Treatment Upcoming Encounters Date Type Department Care Team (Late st Contact Info) Description 01/29/2024 1:40 PM EDT Office Visit Family Practice [facility] [address] [place] [address] Bianca Baron CRNP [address] [place] [address] [place] [address] 03/10/2024 10:00 AM EDT Office Visit Otolaryngology [facility] [address] [place] [address] Te Vann DO [address] [place] [place] [address] 03/17/2024 11:00 AM EDT Cardiac Studies Cardiac Studies, [facility] [address] [place] [address] 03/24/2024 11:00 AM EDT Office Visit Cardiology, [facility] [address] [place] [address] Rosalee Cardoso CRNP [address] [place] [address] 03/25/2024 10:30 AM EDT Office Visit [facility] Surgery [facility] [address] [place] [address] Arlene La MD 200 [facility] [place] [address] 03/29/2024 1:20 PM EDT Office Visit Dermatology [address] [place] [address] Coco Ivan PA-C [address] [place] [address] [place] [address] 04/05/2024 11:00 AM EDT Imaging Radiology [address] [place] [address] 05/07/2024 12:20 PM EDT Office Visit Family Practice [facility] [address] [place] [address] Willie Epstein MD [address] [place] [address] Scheduled Procedures Name Priority Associated Diagnoses Date/Ti [...] this encounter Medical Devices Implanted Type Area Ruching Machine Operator Device Identifier Shelf Expiration Date Model / Serial / Lot Cement Antibiotic Bone - [id number] [place]ed:Q[place] 3 [place] [facility] [place] VERONICA : ORTHOPAEDICS 11/19/2013 6197-9-010 / / [id number] Prostalac Acetabular Cup Implanted:Qty: 1 on 04/28/2012 [place] [facility]: Hip SUBHA & SUBHA DEPUY 05/19/2017 1541-42-320 / / [id number] Prostalac Hip Stem Size 105mm Std Offset Implanted:Qty: 1 on 04/28/2012 [place] [facility]: Hip SUBHA & SUBHA DEPUY 10/19/2021 1541-01-000 / / [id number] Description:Prostalac Hip St em Size 105mm Offset (Depuy) Ball Artic Wiliam Brn 32 Plus5 - [id number] Implanted:Qty: 1 on 04/28/2012 [place] [facility]: Hip JNJ : DEPUY ORTHOPAEDICS 10/19/2016 [id number] / / [id number] Rest Mod Prox Cone Body 23 +11 - [id number] Implanted:Qty: 1 on [place]14/2014 [place] [facility] [place]: Hip VERONICA : ORTHOPAEDICS 10/19/2018 6276-1-123 / / [id number] Head Fem 28mm - [id number] Implanted:Qty: 1 on 04/14/2014 at [facility] Right: Hip VERONICA : ORTHOPAEDICS 08/19/2018 6570-0-228 / / [id number] Insert 28mm - [id number] Implanted:Qty: 1 on 04/14/2014 at [facility] Right: Hip VERONICA : ORTHOPAEDICS 02/16/2019 1236-2-848 / / [id number] Cable/Sle Beaded D/M 20 Vit - [id number] Implanted:Qty: 1 on 04/14/2014 at [facility] Right: Hip VERONICA : ORTHOPAEDICS 10/19/2017 6704-0-520 / / [id number] Cable/Sle Beaded D/M 20 Vit - [id number] Implanted:Qty: 1 on 04/14/2014 at [facility] Right: Hip VERONICA : ORTHOPAEDICS 10/19/2017 6704-0-520 / / [id number] Tritanium Revision Acetabular - [id number] Implanted:Qty: 1 on 04/14/2014 at [facility] Right: Hip VERONICA : ORTHOPAEDICS 05/19/2018 509-02-56E / / [id number] Screw Bone Osteolock 24 - [id number] Implanted:Qty: 1 on 04/14/2014 at [facility] Right: Hip VERONICA : ORTHOPAEDICS 02/16/2019 5260-5-024 / / [id number] Screw Bone Osteolock 35 - [id number] Implanted:Qty: 1 on 04/14/2014 at [facility] Right: Hip VERONICA : ORTHOPAEDICS 03/19/2017 5260-5-035 / / [id number] Liner 42mm - [id number] Implanted:Qty: 1 on 04/14/2014 at [facility] Right: Hip VERONICA : ORTHOPAEDICS 11/19/2018 626-00-42E / / [id number] Hip S Mod Conical Dis 84o741 - [id number] Implanted:Qty: 1 on 04/14/2014 at [facility] Right: Hip VERONICA : ORTHOPAEDICS 12/17/2018 6276-7-017 / / [id number] documented as of this encounter Visit Diagnoses [...] and were consensually agreed upon. Care Teams Desulfurizer Hand Relationship Specialty Start Date End Date Willie Epstein MD [address] [facility] [place] [address] PCP - General Family Medicine 11/22/16 documented as of this encounter
--- OUTSIDE RECORDS SUMMARY | 2024-02-27 09:34 | External Medical Summary | Summary of Care ---
Author Name Unknown Organization [facility] Address [address] [place] [address] Phone [phone] Care Team Providers Care Shrimp Pond Laborer Name Role Phone Willie Epstein MD Primary Care Provider + Reason for Visit * Reason Comments Follow Up Encounter Details Date Type Department Care Team ([facility] st Contact Info) Description 01/21/2024 1:00 PM EDT Telemedicine Family Practice [facility] [address] [place] [address] Nichelle Abreu CRNP [address] [facility] [address] SCC (squamous cell carcinoma), hand, right* Allergies Active Allergy Reactions Criticality Noted Date Comments Methylprednisolone Other (Please comment) 07/28/2017 Side effects c/w med (sweating, heart racing etc) Nitrofurantoin Monohyd Macro Hives 04/04/2014 Sulfa Antibiotics Edema face/lips/tongue High 09/02/2008 documented as of this encounter (statuses as of 01/21/2024) Medications Medication Sig Dispensed Refills Start Date [...] hemoglobin A1c goal of less than 8.0% ([facility]) Use as directed 2 times a day. 1 Box Dosing Unit 11 01/16/2017 Active cinacalcet (SENSIPAR) 30 MG Tablet Take 1 Tab by mouth daily with dinner. 90 Tab 3 11/07/2017 Active Insulin Pen Needle (BD PEN NEEDLE SHORT U/F) 31G X 8 MMIndications:DM type 2 nursing care encounter ([facility]) USE DIRECTED WITH LEVEMIR PENS TWICE A DAY 100 Each 5 2019 Active Additional Information Patient not taking.Reported on 12/01/2023 Blood Glucose Monitoring Suppl (Coubic ULTRA 2) w/Device KIT Use to check blood sugar 2 times a day; E11.9. 1 Kit 0 10/22/2019 Active Glucose Blood (ApplyInc.comTOUCH ULTRA BLUE) STRP Use to check blood [...] as of this encounter (statuses as of 01/21/2024) Active Problems Problem Noted Date Diagnosed Date [...] will 2017 consider transplant needs 20lb -HD [facility]? T,R, S. Since January 2013. Spondylolisthesis [...] as of this encounter (statuses as of 01/21/2024) Resolved Problems Problem Noted Date Diagnosed Date Resolved Date Thoracic compression fracture 04/09/2021 04/13/2021 Overview: Mult levels 04/09 [facility] + lumbar Respiratory symptoms 01/08/2020 021 Fever of unknown origin (FUO) 01/07/2020 02/26/2021 Respiratory infection 01/07/20202020 Cellulitis 06/28/2016 09/08/2016 Abnormal vaginal bleeding 02/12/2016 Cellulitis 02/07/2016 09/08/2016 UTI (urinary tract infection), bacterial 04/19/2014 05/02/2014 Hypotension 04/15/2014 05/02/2014 Compression of lumbar vertebra 02/03/2013 06/07/2021 Overview: Mult levels noted 04/[address] [facility] [address] also thoracic CKD (chronic kidney [...] 140/90 08/25/200909/06 Overview: Modified 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 Angel in [place] for Urology Osteoarthritis of hip 2018 documented as of this encounter (statuses as of 01/21/2024) Immunizations Name Administration Dates Next Due COVID-19 [...] as of this encounter Progress Notes * Nichelle Abreu CRNP - 01/21/2024 1:04 PM EDT Telemed Family Medicine Visit Patient location: HOME. I was in a hospital or clinic location. After connecting through televideo,patient was verified with two unique identifiers. Patient (or authorized legal arborist representative) was then informed that this was a Telemedicine visit and being conducted confidentially over secure lines. Methods to assure confidentiality were taken. Patient acknowledged consent and understanding of pr ivacy and security of the Telemedicine visit. The patient agreed to participate. Connected "waiting for patient to join at 1301" 1307-invited patient to reconnect 1324 patient did not reconnect. Popeye, MSN, [place] [facility] Family Medicine documented in this encounter Plan of Treatment Upcoming Encounters Date Type Department Care Team (Late st Contact Info) Description 03/10/2024 10:00 AM EDT Office Visit Otolaryngology [facility] [address] [place] [address] [place], [address] [place] [place] [address] 03/17/2024 11:00 AM EDT Cardiac Studies Cardiac Studies, [facility] [address] [facility] [place] [address] 03/24/2024 11:00 AM EDT Office Visit Cardiology, [facility] [address] [place] [address] Rosalee Cardoso CRNP [address] [place] [address] 03/25/2024 10:30 AM EDT Office Visit [facility] [address] [place] [address] Arlene La [facility] [address] [facility] [address] 03/29/2024 1:20 PM EDT Office Visit Dermatology [address] [place] [address] Coco Ivan PA-C [address] [place] [address] [place] [address] 04/05/2024 11:00 AM EDT Imaging Radiology [facility] 1st [facility] [address] [address] 05/07/2024 12:20 PM EDT Office Visit Family Practice [facility] [address] [place] [address] Willie Epstein MD [address] [place] [address] Scheduled Procedures Name Priority Associated Diagnoses Date/Ti [...] this encounter Medical Devices Implanted Type Area Auto Appraiser Device Identifier Shelf Expiration Date Model / Serial / Lot Cement Antibiotic Bone - [id number] Implanted:Qty: 3 on 04/28/2012 at [facility] Right: Hip VERONICA : ORTHOPAEDICS 11/19/2013 6197-9-010 / / [id number] Prostalac Acetabular Cup Implanted:Qty: 1 on 04/28/2012 at [place] [facility] Right: Hip SUBHA & SUBHA DEPUY 05/19/2017 1541-42-320 / / [id number] Prostalac Hip Stem Size 105mm Std Offset Implanted:Qty: 1 on 04/28/2012 at [facility] Right: Hip SUBHA & SUBHA DEPUY 10/19/2021 1541-01-000 / / [id number] Description:Prostalac Hip St em Size 105mm Offset (Depuy) Ball Artic Wiliam Brn 32 Plus5 - [id number] Implanted:Qty: 1 on 04/28/2012 at [facility] Right: Hip JNJ : DEPUY ORTHOPAEDICS 10/19/2016 [id number] / / [id number] Rest Mod Prox Cone Body 23 +11 - [id number] Implanted:Qty: 1 on 04/14/2014 at [facility] Right: Hip VERONICA : ORTHOPAEDICS 10/19/2018 6276-1-123 / / [id number] Head Fem 28mm - [id number] Implanted:Qty: 1 on 04/14/2014 at [facility] Right: Hip VERONICA : ORTHOPAEDICS 08/19/2018 6570-0-228 / / [id number] Insert 28mm - [id number] Implanted:Qty: 1 on 04/14/2014 at [facility] Right: Hip VERONICA : ORTHOPAEDICS 02/16/2019 1236-2-848 / / [id number] Cable/Sle Beaded D/M 20 Vit - [id number] Implanted:Qty: 1 on 04/14/2014 at [facility] Right: Hip VERONICA : ORTHOPAEDICS 10/19/2017 6704-0-520 / / [id number] Cable/Sle Beaded D/M 20 Vit - [id number] Implanted:Qty: 1 on 04/14/2014 at [facility] Right: Hip VERONICA : ORTHOPAEDICS 10/19/2017 6704-0-520 / / [id number] Tritanium Revision Acetabular - [id number] Implanted:Qty: 1 on 04/14/2014 at [facility] Right: Hip VERONICA : ORTHOPAEDICS 05/19/2018 509-02-56E / / [id number] Screw Bone Osteolock 24 - [id number] Implanted:Qty: 1 on 04/14/2014 at [facility] Right: Hip VERONICA : ORTHOPAEDICS 02/16/2019 5260-5-024 / / [id number] Screw Bone Osteolock 35 - [id number] Implanted:Qty: 1 on 04/14/2014 at [facility] Right: Hip VERONICA : ORTHOPAEDICS 03/19/2017 5260-5-035 / / [id number] Liner 42mm - [id number] Implanted:Qty: 1 on 04/14/2014 at [facility] Right: Hip VERONICA : ORTHOPAEDICS 11/19/2018 626-00-42E / / [id number] Hip S Mod Conical Dis 22u018 - [id number] Implanted:Qty: 1 on 04/14/2014 at [facility] Right: Hip VERONICA : ORTHOPAEDICS 12/17/2018 6276-7-017 / / [id number] documented as of this encounter Visit Diagnoses Diagnosis SCC (squamous cell carcinoma), hand, right- Primary documented in this encounter Advance Directives [...] and were consensually agreed upon. Care Teams Shrimp Pond Laborer Relationship Specialty Start Date End Date Willie Epstein MD [address] [place] [address] PCP - General Family Medicine 11/22/16 documented as of this encounter
--- OUTSIDE RECORDS SUMMARY | 2024-02-27 09:34 | External Medical Summary | Summary of Care ---
Author Name Unknown Organization [facility] Address [address] [place] [address] Phone [phone] Care Team Providers Care Transformer Molder Name Role Phone Willie Pizarro MD Primary Care Provider + Reason for Visit * Reason Comments eRx-Medication Refill Encounter Details Date Type Department Care Team (Late st Contact Info) Description 01/12/2024 Refill Family Practice [facility] [address] [place] [address] Willie Pizarro MD [address] [facility] [place] [address] Dyslipidemia, goal LDL below 70 Allergies Active Allergy Reactions Criticality Noted Date Comments Methylprednisolone Other (Please comment) 07/28/2017 Side effects c/w med (sweating, heart racing etc) Nitrofurantoin Monohyd Macro Hives 04/04/2014 Sulfa Antibiotics Edema face/lips/tongue High 09/02/2008 documented as of this encounter (statuses as of 01/24/2024) Medications Medication Sig Dispensed Refills Start Date End Date Status INSULIN SYRINGE-NEEDLE U-100 30G X 1/2" 1 ML MISCIndications:D M type 2, goal A1c below 7 Use as directed 1 Box of 100 11 10/04/ 8 Active Additional Information Patient not taking.Reported on 11/20/2023 RENAL MULTIVITAMIN/ZINC PO TABS None Entered 0 Active ASPIRIN 81 MG PO TABS 1 tablet daily 0 Active ONETOUCH ULTRASOFT LANCETS MISCIndications:T ype 2 diabetes mellitus with hemoglobin A1c goal of less than 8.0% ([facility]) Use as directed 2 times a day. 1 Box Dosing Unit 11 7 Active cinacalcet (SENSIPAR) 30 MG Tablet Take 1 Tab by mouth daily with dinner. 90 Tab 3 8 Active Insulin Pen Needle (BD PEN NEEDLE SHORT U/F) 31G X 8 MMIndications:DM type 2 nursing care encounter ([facility]) USE DIRECTED WITH LEVEMIR PENS TWICE A DAY 100 Each 5 9 Active Additional Information Patient not taking.Reported on 12/01/2023 Blood Glucose Monitoring Suppl (Patronpath ULTRA 2) w/Device KIT Use to check blood sugar 2 times a day; E11.9. 1 Kit 0 0 Active Glucose Blood (Moy UniverTOUCH ULTRA BLUE) STRP Use to check blood [...] EVERY DAY 90 Tablet 1 3 Active oxyCODONE HCl 15 MG Oral Tablet (Roxicodone)Indic ations:MEDICATION USE AGREEMENT,Arthrit is of left shoulder region,Spondyloli sthesis of lumbosacral region,H/O bilateral hip replacements Take 1 Tablet by mouth every 8 hours as needed (pain). 90 Tablet 0 3 Active Trulicity 0.75 MG/0.5ML Subcutaneous Solution Pen-injector (Dulaglutide) INJECT UNDER THE SKIN 0.75 MG ONCE A WEEK . 6 mL 3 3 Active Betamethasone Dipropionate 0.05 % External OintmentIndicatio ns:Plaque psoriasis Apply 2x daily (or more if itchy instead of scratching) to affected psoriasis spots on arms/legs until resolved 50 g 0 4 Active Triamcinolone Acetonide 0.1 % External Ointment (Aristocort)Indic ations:Inverse psoriasis Apply 2x daily during week (off on weekends) to psoriasis under breasts until resolved, then when flaring 454 g 0 4 Active oxyCODONE HCl 15 MG Oral Tablet (Roxicodone)Indic ations:MEDICATION USE AGREEMENT,Arthrit is of left shoulder region,Spondyloli sthesis of lumbosacral region,H/O bilateral hip replacements Take 1 Tablet by mouth every 8 hours as needed (pain). 90 Tablet 0 4 Active Simvastatin 20 MG Oral Tablet (Zocor)Indication s:Dyslipidemia, goal LDL below 70 TAKE ONE TABLET BY MOUTH ONCE A DAY AT BEDTIME 90 Tablet 0 4 Active Simvastatin 20 MG Oral Tablet (Zocor)Indication s:Dyslipidemia, goal LDL below 70 TAKE ONE TABLET BY MOUTH ONCE A DAY AT BEDTIME 90 Tablet 0 3 01/12/20 24 Discontinued documented as of this encounter (statuses as of 01/24/2024) Active Problems Problem Noted Date Diagnosed Date [...] will 2017 consider transplant needs 20lb -HD [facility]? T,R, S. Since January 2013. Spondylolisthesis [...] as of this encounter (statuses as of 01/24/2024) Resolved Problems Problem Noted Date Diagnosed Date Resolved Date Thoracic compression fracture 04/09/2021 04/13/2021 Overview: Mult levels 04/09 [facility] + lumbar Respiratory symptoms 01/08/2020 021 Fever of unknown origin (FUO) 01/07/2020 02/26/2021 Respiratory infection 01/07/20202020 Cellulitis 06/28/2016 09/08/2016 Abnormal vaginal bleeding 02/12/2016 Cellulitis 02/07/2016 09/08/2016 UTI (urinary tract infection), bacterial 04/19/2014 05/02/2014 Hypotension 04/15/2014 05/02/2014 Compression of lumbar vertebra 02/03/2013 06/07/2021 Overview: Mult levels noted 04/[address] [facility] [address] also thoracic CKD (chronic [...] 140/90 08/25/200909/06 Overview: Modified 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 Angel in [place] for Urology Osteoarthritis of hip 2018 documented as of this encounter (statuses as of 01/24/2024) Immunizations Name Administration Dates Next Due COVID-19 [...] encounter Miscellaneous Notes * Telephone Encounter - Dayana Pardo PHARM Tech - 01/24/2024 3:04 PM EDT Received message from [facility] regarding patient needing labs. Call Placed, Left message on voicemail advising of required labs Thank you for your assistance Dayana Pardo Java Programming Professor II [facility] ([facility]) (Formerly Telepharmacy) 01/24/2024,3:04 PM * Telephone Encounter - Jazmin Watkins [facility] - 01/12/2024 6:22 PM EDT Signed Prescriptions: Disp Refills Simvastatin 20 MG Oral Tablet (Zocor) 90 Tab*0 Sig: TAKE ONE TABLET BY MOUTH ONCE A DAY AT BEDTIME Authorizing Provider: WILLIE PIZARRO Ordering User: JAZMIN WATKINS * Telephone Encounter - Jazmin Watkins [facility] - 01/12/2024 6:19 PM EDT Provided 90 days supply with 0 refill(s). Per refill protocol patient should have lipids on file within past year. Reviewed AMP report, Care Gaps/Health Maintenance, medications list, and for any routine labs typically ordered for this patient. Lab orders placed. Please contact patient to advise of labs ordered for blood draw. Recommend patient to fast if able for labs. Patient may still have water and regular medications. Advise to obtain labs before requesting the next refill. Thank you, Jazmin Watkins PharmD Clinical Pharmacist [facility] ([facility]) (formerly Telepharmacy) 01/12/24 6:21 PM [phone] documented in this encounter Plan of Treatment Upcoming Encounters Date Type Department Care Team (Late st Contact Info) Description 01/26/2024 11:10 AM EDT Nurse Only Dermatology [address] [place] [address] [place], Nurse [address] [place] [address] 01/29/2024 1:40 PM EDT Office Visit Family Practice [facility] [address] [place] [address] Bianca Baron CRNP [address] [place] [address] 03/10/2024 10:00 AM EDT Office Visit Otolaryngology [facility] [address] [place] [address] [place] DO [address] [place] [address] 03/17/2024 11:00 AM EDT Cardiac Studies Cardiac Studies, [facility] [address] [place] [address] 03/24/2024 11:00 AM EDT Office Visit Cardiology, [facility] [address] [place] [address] Rosalee Cardoso CRNP [address] [place] [address] 03/25/2024 10:30 AM EDT Office Visit [facility] Surgery [facility] [address] [place] [address] Arlene La MD [address] [place] [address] 03/29/2024 1:20 PM EDT Office Visit Dermatology [address] [place] [address] Coco Ivan PA-C [address] [place] [address] [place] [address] 04/05/2024 11:00 AM EDT Imaging Radiology [facility] 1st [facility] [address] [place] [address] 05/07/2024 12:20 PM EDT Office Visit Family Practice [facility] [address] [place] [address] Willie Pizarro MD [address] [place] [place] [address] Scheduled Procedures Name Priority Associated Diagnoses Date/Ti [...] this encounter Medical Devices Implanted Type Area Ramp Jockey Device Identifier Shelf Expiration Date Model / Serial / Lot Cement Antibiotic Bone - [id number] Implanted:Qty: 3 on 04/28/2012 at [place] [facility] Right: Hip VERONICA : ORTHOPAEDICS 11/19/2013 6197-9-010 / / [id number] Prostalac Acetabular Cup Implanted:Qty: 1 on 04/28/2012 at [place] [facility] Right: Hip SUBHA & SUBHA DEPUY 05/19/2017 1541-42-320 / / [id number] Prostalac Hip Stem Size 105mm Std Offset Implanted:Qty: 1 on 04/28/2012 at [place] [facility] Right: Hip SUBHA & SUBHA DEPUY 10/19/2021 1541-01-000 / / [id number] Description:Prostalac Hip St em Size 105mm Offset (Depuy) Ball Artic Wiliam Brn 32 Plus5 - [id number] Implanted:Qty: 1 on 04/28/2012 at [place] [facility] Right: Hip JNJ : DEPUY ORTHOPAEDICS 10/19/2016 [id number] / / [id number] Rest Mod Prox Cone Body 23 +11 - [id number] Implanted:Qty: 1 on 04/14/2014 at [place] [facility] Right: Hip VERONICA : ORTHOPAEDICS 10/19/2018 6276-1-123 / / [id number] Head Fem 28mm - [id number] Implanted:Qty: 1 on 04/14/2014 at [facility] Right: Hip VERONICA : ORTHOPAEDICS 08/19/2018 6570-0-228 / / [id number] Insert 28mm - [id number] Implanted:Qty: 1 on 04/14/2014 at [facility] Right: Hip VERONICA : ORTHOPAEDICS 02/16/2019 1236-2-848 / / [id number] Cable/Sle Beaded D/M 20 Vit - [id number] Implanted:Qty: 1 on 04/14/2014 at [facility] Right: Hip VERONICA : ORTHOPAEDICS 10/19/2017 6704-0-520 / / [id number] Cable/Sle Beaded D/M 20 Vit - [id number] Implanted:Qty: 1 on 04/14/2014 at [facility] Right: Hip VERONICA : ORTHOPAEDICS 10/19/2017 6704-0-520 / / [id number] Tritanium Revision Acetabular - [id number] Implanted:Qty: 1 on 04/14/2014 at [facility] Right: Hip VERONICA : ORTHOPAEDICS 05/19/2018 509-02-56E / / [id number] Screw Bone Osteolock 24 - [id number] Implanted:Qty: 1 on 04/14/2014 at [facility] Right: Hip VERONICA : ORTHOPAEDICS 02/16/2019 5260-5-024 / / [id number] Screw Bone Osteolock 35 - [id number] Implanted:Qty: 1 on 04/14/2014 at [facility] Right: Hip VERONICA : ORTHOPAEDICS 03/19/2017 5260-5-035 / / [id number] Liner 42mm - [id number] Implanted:Qty: 1 on 04/14/2014 at [facility] Right: Hip VERONICA : ORTHOPAEDICS 11/19/2018 626-00-42E / / [id number] Hip S Mod Conical Dis 38l875 - [id number] Implanted:Qty: 1 on 04/14/2014 at [facility] Right: Hip VERONICA : ORTHOPAEDICS 12/17/2018 6276-7-017 / / [id number] documented as of this encounter Visit Diagnoses [...] and were consensually agreed upon. Care Teams Transformer Molder Relationship Specialty Start Date End Date Willie Pizarro MD [address] [place] [address] [place] [address] PCP - General Family Medicine 11/22/16 documented as of this encounter
--- OUTSIDE RECORDS SUMMARY | 2024-02-27 09:34 | External Medical Summary | Summary of Care ---
Author Name Unknown Organization [facility] Address [address] [place] [address] Phone [phone] Care Team Providers Care Lap Runner Name Role Phone Willie Pizarro MD Primary Care Provider + Reason for Visit * Reason Comments eRx-Medication Refill Encounter Details Date Type Department Care Team (Late st Contact Info) Description 01/12/2024 Refill Family Practice [facility] [address] [place] [address] Willie Pizarro MD [address] [facility] [place] [address] Dyslipidemia, goal LDL below 70 Allergies Active Allergy Reactions Criticality Noted Date Comments Methylprednisolone Other (Please comment) 07/28/2017 Side effects c/w med (sweating, heart racing etc) Nitrofurantoin Monohyd Macro Hives 04/04/2014 Sulfa Antibiotics Edema face/lips/tongue High 09/02/2008 documented as of this encounter (statuses as of 01/26/2024) Medications Medication Sig Dispensed Refills Start Date [...] goal of less than 8.0% ([facility]) Use as directed 2 times a day. 1 Box Dosing Unit 11 7 Active cinacalcet (SENSIPAR) 30 MG Tablet Take 1 Tab by mouth daily with dinner. 90 Tab 3 8 Active Insulin Pen Needle (BD PEN NEEDLE SHORT U/F) 31G X 8 MMIndications:DM type 2 nursing care encounter ([facility]) USE DIRECTED WITH LEVEMIR PENS TWICE A DAY 100 Each 5 9 Active Additional Information Patient not taking.Reported on 12/01/2023 Blood Glucose Monitoring Suppl (Spartan Race ULTRA 2) w/Device KIT Use to check blood sugar 2 times a day; E11.9. 1 Kit 0 0 Active Glucose Blood (NeuronetrixTOUCH ULTRA BLUE) STRP Use to check blood [...] as of this encounter (statuses as of 01/26/2024) Active Problems Problem Noted Date Diagnosed Date [...] will 2017 consider transplant needs 20lb -HD [place] [facility]? T,R, S. Since January 2013. Spondylolisthesis [...] as of this encounter (statuses as of 01/26/2024) Resolved Problems Problem Noted Date Diagnosed Date Resolved Date Thoracic compression fracture 04/09/2021 04/13/2021 Overview: Mult levels 04/09 CT [facility] + lumbar Respiratory symptoms 01/08/2020 021 Fever of unknown origin (FUO) 01/07/2020 02/26/2021 Respiratory infection 01/07/20202020 Cellulitis 06/28/2016 09/08/2016 Abnormal vaginal bleeding 02/12/2016 Cellulitis 02/07/2016 09/08/2016 UTI (urinary tract infection), bacterial 04/19/2014 05/02/2014 Hypotension 04/15/2014 05/02/2014 Compression of lumbar vertebra 02/03/2013 06/07/2021 Overview: Mult levels noted 04/[address] [facility] [address] also thoracic CKD [...] 140/90 08/25/200909/06 Overview: Modified 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 manager intermediate current use of ant icoagulant therapy 04/19/2009 [...] s/p B/L stents Sees Dr. Angel in [place] for Urology Osteoarthritis of hip 2018 documented as of this encounter (statuses as of 01/26/2024) Immunizations Name Administration Dates Next Due COVID-19 [...] encounter Miscellaneous Notes * Telephone Encounter - Kimmy Krishnan OSA - 01/26/2024 10:49 AM EDT Patient has been notified of the message. Patient has been scheduled for 01/28/24 * Telephone Encounter - Dayana Pardo latin american studies professor - 01/24/2024 3:04 PM EDT Received message from [facility] regarding patient needing labs. Call Placed, Left message on voicemail advising of required labs Thank you for your assistance Dayana Pardo Drapery [employer] [facility] (Former[facility]) 01/24/2024,3:04 PM * Telephone Encounter - Jazmin Watkins [facility] - 01/12/2024 6:22 PM EDT Signed Prescriptions: Disp Refills Simvastatin 20 MG Oral Tablet (Zocor) 90 Tab*0 Sig: TAKE ONE TABLET BY MOUTH ONCE A DAY AT BEDTIME Authorizing Provider: WILLIE PIZARRO Ordering User: JAZMIN WATKINS Electronically signed by Jazmin Watkins [facility] at 01/12/2024 6:22 PM EDT * Telephone Encounter - Jazmin Watkins [facility] - 01/12/2024 6:19 PM EDT Provided 90 [...] requesting the next refill. Thank you, Jazmin Watkins, PharmD Clinical Pharmacist [facility] ([facility] (formerly [facility]) 01/12/24 6:21 PM [phone] Electronically signed by Jazmin Watkins [facility] at 01/12/2024 6:22 PM EDT documented in this encounter Plan of Treatment Upcoming Encounters Date Type Department Care Team (Late st Contact Info) Description 01/28/2024 10:40 AM EDT Laboratory Laboratory, [facility] [address] [place] [address] [facility] h[facility] [address] [place] [address] 01/28/2024 11:10 AM EDT Nurse Only Dermatology [address] [place] [address] [place], Nurse [address] [place] [address] 01/29/2024 1:40 PM EDT Office Visit Family Practice [facility] [address] [place] [address] Bianca Baron CRNP [address] [place] [address] 03/10/2024 10:00 AM EDT Office Visit Otolaryngology [facility] 132 [facility] [place] [address] [place], [address] [place] [place] [address] 03/17/2024 11:00 AM EDT Cardiac Studies Cardiac Studies, [facility] [address] [facility] [place] [address] 03/24/2024 11:00 AM EDT Office Visit Cardiology, [facility] 132 [facility] [place] [address] Rosalee Cardoso CRNP 132 [facility] [place] [address] 03/25/2024 10:30 AM EDT Office Visit [facility] [address] [place] [address] Arlene La MD 200 [facility] [place] [address] 03/29/2024 1:20 PM EDT Office Visit Dermatology [address] [place] [address] Coco Ivan PA-C [address] [place] [address] [place] [address] 04/05/2024 11:00 AM EDT Imaging Radiology [facility]st [facility] [address] [facility] [place] [address] 05/07/2024 12:20 PM EDT Office Visit Family Practice [facility] [address] [place] [address] Willie Pizarro MD 132 [facility] [place] [address] Scheduled Procedures Name Priority Associated Diagnoses Date/Ti [...] this encounter Medical Devices Implanted Type Area Hide Handler Device Identifier Shelf Expiration Date Model / Serial / Lot Cement Antibiotic Bone - [id number] Implanted:Qty: 3 on 04/28/2012 [place] [facility] [place]: Hip VERONICA : ORTHOPAEDICS 11/19/2013 6197-9-010 / / [id number] Prostalac Acetabular Cup Implanted:Qty: 1 on 04/28/2012 at [place] [facility] [place]: Hip SUBHA & SUBHA DEPUY 05/19/2017 1541-42-320 / / [id number] Prostalac Hip Stem Size 105mm Std Offset Implanted:Qty: 1 on 04/28/2012 at [place] [facility] [place]: Hip SUBHA & SUBHA DEPUY 10/19/2021 1541-01-000 / / [id number] Description:Prostalac Hip St em Size 105mm Offset (Depuy) Ball Artic Wiliam Brn 32 Plus5 - [id number] Implanted:Qty: 1 on 04/28/2012 at [place] [facility] [place]: Hip JNJ : DEPUY ORTHOPAEDICS 10/19/2016 [id number] / / [id number] Rest Mod Prox Cone Body 23 +11 - [id number] Implanted:Qty: 1 on 04/14/2014 at [place] [facility] [place]: Hip VERONICA : ORTHOPAEDICS 10/19/2018 6276-1-123 / / [id number] Head Fem 28mm - [id number] Implanted:Qty: 1 on 04/14/2014 at [place] [facility] [place]: Hip VERONICA : ORTHOPAEDICS 08/19/2018 6570-0-228 / / [id number] Insert 28mm - [id number] Implanted:Qty: 1 on 04/14/2014 at [place] [facility] [place]: Hip VERONICA : ORTHOPAEDICS 02/16/2019 1236-2-848 / / [id number] Cable/Sle Beaded D/M 20 Vit - [id number] Implanted:Qty: 1 on 04/14/2014 at [facility] Right: Hip VERONICA : ORTHOPAEDICS 10/19/2017 6704-0-520 / / [id number] Cable/Sle Beaded D/M 20 Vit - [id number] Implanted:Qty: 1 on 04/14/2014 at [place] [facility] [place]: Hip VERONICA : ORTHOPAEDICS 10/19/2017 6704-0-520 / / [id number] Tritanium Revision Acetabular - [id number] Implanted:Qty: 1 on 04/14/2014 at [place] [facility] [place]: Hip VERONICA : ORTHOPAEDICS 05/19/2018 509-02-56E / / [id number] Screw Bone Osteolock 24 - [id number] Implanted:Qty: 1 on 04/14/2014 at [facility] Right: Hip VERONICA : ORTHOPAEDICS 02/16/2019 5260-5-024 / / [id number] Screw Bone Osteolock 35 - [id number] Implanted:Qty: 1 on 04/14/2014 at [facility] Right: Hip VERONICA : ORTHOPAEDICS 03/19/2017 5260-5-035 / / [id number] Liner 42mm - [id number] Implanted:Qty: 1 on 04/14/2014 at [facility] Right: Hip VERONICA : ORTHOPAEDICS 11/19/2018 626-00-42E / / [id number] Hip S Mod Conical Dis 12m238 - [id number] Implanted:Qty: 1 on 04/14/2014 at [place] [facility] [place]: Hip VERONICA : ORTHOPAEDICS 12/17/2018 6276-7-017 / / [id number] documented as of this encounter Visit Diagnoses [...] and were consensually agreed upon. Care Teams Lap Runner Relationship Specialty Start Date End Date Willie Pizarro MD [address] [place] [address] PCP - General Family Medicine 11/22/16 documented as of this encounter
--- OUTSIDE RECORDS SUMMARY | 2024-02-27 09:34 | External Medical Summary | Summary of Care ---
Author Name Unknown Organization [facility] Address [address] [place] [address] Phone [phone] Care Team Providers Care Customs And Border Protection Inspector Name Role Phone Willie Epstein MD Primary Care Provider + Reason for Visit * Reason Onset Date Comments Left Message 01/22/2024 Encounter Details Date Type Department Care Team ([facility] st Contact Info) Description 01/22/2024 Telephone [address]erm[address] [place] [address] Coco Ivan PA-C [address] [place] [address] [place] [address] Left Message Allergies Active Allergy Reactions Criticality Noted Date Comments Methylprednisolone Other (Please comment) 07/28/2017 Side effects c/w med (sweating, heart racing etc) Nitrofurantoin Monohyd Macro Hives 04/04/2014 Sulfa Antibiotics Edema face/lips/tongue High 09/02/2008 documented as of this encounter (statuses as of 01/22/2024) Medications Medication Sig Dispensed Refills Start Date [...] hemoglobin A1c goal of less than 8.0% ([facility]) Use as directed 2 times a day. 1 Box Dosing Unit 11 01/16/2017 Active cinacalcet (SENSIPAR) 30 MG Tablet Take 1 Tab by mouth daily with dinner. 90 Tab 3 11/07/2017 Active Insulin Pen Needle (BD PEN NEEDLE SHORT U/F) 31G X 8 MMIndications:DM type 2 nursing care encounter ([facility]) USE DIRECTED WITH LEVEMIR PENS TWICE A DAY 100 Each 5 2019 Active Additional Information Patient not taking.Reported on 12/01/2023 Blood Glucose Monitoring Suppl (Dials ULTRA 2) w/Device KIT Use to check blood sugar 2 times a day; E11.9. 1 Kit 0 10/22/2019 Active Glucose Blood (SupplyFrameUCH ULTRA BLUE) STRP Use to check blood [...] as of this encounter (statuses as of 01/22/2024) Active Problems Problem Noted Date Diagnosed Date [...] will 2017 consider transplant needs 20lb -HD [place] [facility]? T,R, S. Since January 2013. Spondylolisthesis [...] as of this encounter (statuses as of 01/22/2024) Resolved Problems Problem Noted Date Diagnosed Date Resolved Date Thoracic compression fracture 04/09/2021 04/13/2021 Overview: Mult levels 04/09 [facility] + lumbar Respiratory symptoms 01/08/2020 021 Fever of unknown origin (FUO) 01/07/2020 02/26/2021 Respiratory infection 01/07/20202020 Cellulitis 06/28/2016 09/08/2016 Abnormal vaginal bleeding 02/12/2016 Cellulitis 02/07/2016 09/08/2016 UTI (urinary tract infection), bacterial 04/19/2014 05/02/2014 Hypotension 04/15/2014 05/02/2014 Compression of lumbar vertebra 02/03/2013 06/07/2021 Overview: Mult levels noted 04/[address] [facility] [address] also thoracic CKD (chronic [...] 140/90 08/25/200909/06 Overview: Modified 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 prison current use of ant icoagulant therapy 04/19/2009 [...] s/p B/L stents Sees Dr. Angel in [place] for Urology Osteoarthritis of hip 2018 documented as of this encounter (statuses as of 01/22/2024) Immunizations Name Administration Dates Next Due COVID-19 [...] encounter Miscellaneous Notes * Telephone Encounter - Elda Ma LPN - 01/22/2024 3:00 PM EDT Spoke with patient, was in the ER Friday01/18/24 POSS INFECTION IN RIGHT HAND, swelling/doubled in size and was given the following: "DOXYCYCLINE HYCLATE 100 MG TAB TAKE 1 TABLET BY MOUTH TWICE A DAY FOR 7 DAYS MUPIROCIN 2% OINTMENT AMOXICILLIN 500 MG OR TABS TAKE 1 TABLET BY MOUTH TWICE DAILY" "Additional Instructions Please follow up with your primary care physician as scheduled and with your payroll accounting clerk in the next week for re-evaluation. You were seen in the emergency department for evaluation of suspected infection related to your recent procedure site/biopsy for your diagnosed squamous cell carcinoma of your hand. Acetaminophen (650mg every 4 hours) for pain as needed. Begin doxycycline and amoxicillin, antibiotics as prescribed. Amoxicillin should be taken after dialysis on dialysis days. Apply mupirocin ointment as prescribed for additional antibacterial treatment and emollient/barrier/protection affect. Keep area clean and dry at all times. Wash daily with soap and water and dab dry. Cover with sterile dressing and wear wrist lacer for compression to minimize swelling. When possible keep hand elevated above the level of your heart to minimize swelling." Patient agreeable for nurse visit/wound check on Friday in [place]. * Telephone Encounter - Alida Gray OSA - 01/22/2024 10:52 AM EDT Patient is at dialysis now and just about done. Her arm where the biopsy was taken from looks infected to the staff and they would like a call to the patient so she knows what she should do. This is also the arm that she receives the dialysis from they said. She is scheduled for Mohs surgery in March. [phone] documented in this encounter Plan of Treatment Upcoming Encounters Date Type Department Care Team (Late st Contact Info) Description 01/26/2024 11:10 AM EDT Nurse Only Dermatology Fawad Lockwood [address] [place] [address] Fabián, [address] [place] [address] 01/29/2024 1:40 PM EDT Office Visit Family Practice [facility] [address] [place] [address] Bianca Baron CRNP [address] [place] [address] 03/10/2024 10:00 AM EDT Office Visit Otolaryngology [facility] [address] [place] [address] Te Vann DO [address] [place] [address] 03/17/2024 11:00 AM EDT Cardiac Studies Cardiac Studies, [facility] [address] [place] [address] 03/24/2024 11:00 AM EDT Office Visit Cardiology, [facility] [address] [place] [address] Rosalee Cardoso CRNP [address] [place] [address] 03/25/2024 10:30 AM EDT Office Visit [facility] Surgery [facility] [address] [place] [address] Arlene La MD 200 [place] [address] 03/29/2024 1:20 PM EDT Office Visit Dermatology [address] [place] [address] Coco Ivan PA-C [address] [place] [address] [place] [address] 04/05/2024 11:00 AM EDT Imaging Radiology [facility]st [facility] [address] [place] [address] 05/07/2024 12:20 PM EDT Office Visit Family Practice [facility] [address] [place] [address] Willie Epstein MD [address] [place] [address] Scheduled Procedures Name Priority Associated Diagnoses Date/Ti [...] this encounter Medical Devices Implanted Type Area Openstack Developer Device Identifier Shelf Expiration Date Model / Serial / Lot Cement Antibiotic Bone - [id number] [place]planted:Qty: 3 [place]28[place] [facility] [place] VERONICA : ORTHOPAEDICS 11/19/2013 6197-9-010 / / [id number] Prostalac Acetabular Cup Implanted:Qty: 1 on 04/28/2012 [place] [facility] [place] SUBHA & SUBHA DEPUY 05/19/2017 1541-42-320 / / [id number] Prostalac Hip Stem Size 105mm Std Offset Implanted:Qty: 1 on 04/28/2012 [place] [facility] [place]: [place] SUBHA & SUBHA DEPUY 10/19/2021 1541-01-000 / / [id number] Description:Prostalac Hip St em Size 105mm Offset (Depuy) Ball Artic Wiliam Brn 32 Plus5 - [id number] Implanted:Qty: 1 on 04/28/2012 [place] [facility] [place]: Hip JNJ : DEPUY ORTHOPAEDICS 10/19/2016 [id number] / / [id number] Rest Mod Prox Cone Body 23 +11 - [id number] Implanted:Qty: 1 on 04/14/2014 [place] [facility] [place]: Hip VERONICA : ORTHOPAEDICS 10/19/2018 6276-1-123 / / [id number] Head Fem 28mm - [id number] Implanted:Qty: 1 on 04/14/2014 at [facility] Right: Hip VERONICA : ORTHOPAEDICS 08/19/2018 6570-0-228 / / [id number] Insert 28mm - [id number] Implanted:Qty: 1 on 04/14/2014 at [facility] Right: Hip VERONICA : ORTHOPAEDICS 02/16/2019 1236-2-848 / / [id number] Cable/Sle Beaded D/M 20 Vit - [id number] Implanted:Qty: 1 on 04/14/2014 at [facility] Right: Hip VERONICA : ORTHOPAEDICS 10/19/2017 6704-0-520 / / [id number] Cable/Sle Beaded D/M 20 Vit - [id number] Implanted:Qty: 1 on 04/14/2014 at [facility] Right: Hip VERONICA : ORTHOPAEDICS 10/19/2017 6704-0-520 / / [id number] Tritanium Revision Acetabular - [id number] Implanted:Qty: 1 on 04/14/2014 at [facility] Right: Hip VERONICA : ORTHOPAEDICS 05/19/2018 509-02-56E / / [id number] Screw Bone Osteolock 24 - [id number] Implanted:Qty: 1 on 04/14/2014 at [facility] Right: Hip VERONICA : ORTHOPAEDICS 02/16/2019 5260-5-024 / / [id number] Screw Bone Osteolock 35 - [id number] Implanted:Qty: 1 on 04/14/2014 at [facility] Right: Hip VERONICA : ORTHOPAEDICS 03/19/2017 5260-5-035 / / [id number] Liner 42mm - [id number] Implanted:Qty: 1 on 04/14/2014 at [facility] Right: Hip VERONICA : ORTHOPAEDICS 11/19/2018 626-00-42E / / [id number] Hip S Mod Conical Dis 72z525 - [id number] Implanted:Qty: 1 on 04/14/2014 at [facility] Right: Hip VERONICA : ORTHOPAEDICS 12/17/2018 6276-7-017 / / [id number] documented as of this encounter Advance Directives [...] and were consensually agreed upon. Care Teams Customs And Border Protection Inspector Relationship Specialty Start Date End Date Willie Epstein MD [address] [place] [address] PCP - General Family Medicine 11/22/16 documented as of this encounter
--- NOTE | 2024-02-27 10:09 | Gastrointestinal Consultation ---
Date of Consultation February 27, 2024 Assessment & Plan (1) Symptomatic anemia: Plan Patient is a 69 y.o. female with DM, ESRD on hemodialysis and chronic anemia admitted with profound anemia and heme positive stool. 1. Recommend supportive care with transfusion as per protocol. 2. Patient is not currently hemodynamically stable for invasive GI work up. 3. Notify GI marketing operations coordinator if any clinical concerns. 4. Supportive care per primary team. Thank you for allowing us to participate in the care of this patient. If you have any questions or concerns, please do not hesitate to contact us. Supervising Physician Co-Signing Physician Notes Agree with LORETTA Mock as above Interviewed and examined patient and agree with above Abd: Soft, NT, ND, +BS Currently not on protonix as it is listed as an allergy, but she in unsure if she has a true allergy Start oral PPI therapy twice daily with Omeprazole 40 mg Continue supportive care No further melena since early this AM Refused EGD at present History of Present Illness Reason for Consultation: Anemia, heme positive stool Requesting Physician: Dr. Dillon Attending Physician: Dena Renae MD History of Present Illness Patient is a 69 y.o. female with a complex past medical history including DM, ESRD on hemodialysis, HLD, HTN, and chronic anemia evaluated in the ER for symptoms of urinary burning and she was concerned that she may have a UTI. On arrival, she was noted to be profoundly anemic with H&H of 5.7/18.3. She has been placed on NPO status and is currently receiving 1 unit of PRBCs. No PPI ggt due to allergy which is unknown in regard to reaction. She denies any nausa or vomiting, abdominal pain, diarrhea or constipation. Heme positive in the ER. Allergies Allergy/AdvReac Type Severity Reaction Status Date / Time Sulfa (Sulfonamide Allergy Severe Face/lips/tongue Verified 01/02/24 07:08 Antibiotics) edema nitrofurantoin Allergy Intermediate Hives Verified 01/02/24 07:08 cefazolin [From Ancef] Allergy Unknown Unknown Verified 02/26/24 22:39 pantoprazole [From Protonix] Allergy Unknown Unknown Verified 01/02/24 07:08 methylprednisolone AdvReac Intermediate Sweating, Verified 01/02/24 07:08 [From Medrol] heart racing Home Medications Medication Instructions Recorded Confirmed Type aspirin 81 mg chewable tablet 81 mg PO QAM 12/31/18 02/26/24 History gabapentin 100 mg capsule 100 mg PO DIRECTED 12/31/18 02/27/24 History albuterol sulfate 90 mcg/actuation 2 puff inhalation Q6H PRN Wheezing 04/04/21 02/26/24 History aerosol inhaler citalopram 20 mg tablet 20 mg PO QAM 04/04/21 02/26/24 History oxycodone 15 mg tablet 15 mg PO Q8 PRN Pain 04/04/21 02/26/24 History betamethasone dipropionate 0.05 % 1 applic topical BID PRN 11/15/23 02/26/24 History topical ointment PSORIASIS/ITCHING cinacalcet 90 mg tablet 90 mg PO QAM 11/15/23 02/27/24 History lanthanum 750 mg chewable tablet 750 mg PO TID 11/15/23 02/26/24 History ropinirole 2 mg tablet 2 mg PO QPM 11/15/23 02/26/24 History simvastatin 20 mg tablet 20 mg PO HS 11/15/23 02/26/24 History vitamin B complex-vitamin C-folic 1 tab PO QAM 11/15/23 02/26/24 History acid 0.8 mg tablet (Anais-Federico) dulaglutide 0.75 mg/0.5 mL 0.75 mg subcut WK 02/26/24 02/26/24 History subcutaneous pen injector (Trulicity) Patient History Medical History (Updated 02/27/24 @ 10:20 by Danette Perez MD, PhD) MINDI (obstructive sleep apnea) History of blood transfusion 2022 Pulmonary hypertension mild on 2020 echo Sleep apnea severe-not currently treated per pt Moderate aortic stenosis (MELCHOR 0.8 cm2, mean PG 20 mmHg) Diabetes mellitus, type 2 Ambulatory dysfunction walker-dependent Chronic pain Obesity Limb alert care status RUE AVF Osteoporosis Anxiety and depression RLS (restless legs syndrome) HLD (hyperlipidemia) HTN (hypertension) Psoriasis History of renal calculi History of DVT (deep vein thrombosis) RLE, 10+ years ago, post op AC therapy x 3-6 months after > d/c'd + no issues since History of pulmonary embolus (PE) 10+ years ago, post op End stage renal disease on dialysis 2/2 DM Diaylsis Tues/Thurs/Sat- [facility] Follows with Dr. Perez Surgical History Hx of bilateral hip replacements H/O laparoscopy History of cystoscopy S/P arteriovenous (AV) fistula repair (~2020) right History of tooth extraction History of x 2 S/P arteriovenous (AV) fistula creation x 2 BL (non functioning on left)--left still in place not working History of colonoscopy H/O partial resection of colon (2012) For diverticulitis H/O inguinal hernia repair left S/P cholecystectomy Family History Mother Diabetes Sister Diabetes Other No family history of adverse response to anesthesia Social History Smoking Status: Never smoker Second Hand Exposure: No; Do You Dip or Chew Tobacco: No; Tobacco Cessation Education Requested by Patient: No Hx Alcohol Use: No Hx Substance Use: No Preferred Language: Thai Communication Ability: Effective Gas Charger Required: No Beliefs That Will Affect Care: None marital status: Current Living Situation: Parent and Family Current Living Situation Comment: Lives with , daughter and grandson How many Children do You have: 3 Other Information That Helps Us Care for You: No Feels Safe at Home: Yes Safety Concerns: Feels Safe At This Time Assistive Devices: Walker Review of Systems Constitutional: no problem reported Respiratory: no cough and no dyspnea Cardiovascular: no chest pain and no palpitations Gastrointestinal: as per Subjective / HPI Physical Exam Constitutional: WD/WN, vitals as above Respiratory: normal respiratory effort, lungs clear to auscultation Cardiovascular: Rate/Rhythm: regular rate and regular rhythm Heart Sounds: + murmur Gastrointestinal (Abdomen): Inspection/Auscultation: abdomen normal to inspection and normal bowel sounds Percussion/Palpation: abdomen soft; abdomen nontender, no guarding and abdomen not rigid Psychiatric: A+Ox3, euthymic affect Results & Data Vital Signs (Past 12 Hours) Vital Signs Temp Pulse Pulse Resp BP BP Pulse Ox 02/27/24 08:40 36.6 C 90 20 102/64 96 02/27/24 07:40 36.6 C 94 H 18 120/64 98 02/27/24 07:39 36.4 C L 94 H 23 120/64 94 02/27/24 07:10 36.9 C 90 19 122/66 94 02/27/24 06:55 36.7 C 93 H 18 118/62 96 02/27/24 06:36 36.7 C 96 H 16 125/61 95 02/27/24 03:40 02/27/24 02:25 96 H 02/27/24 02:13 36.5 C 96 H 18 121/61 95 02/27/24 01:48 02/26/24 23:30 100 H 24 123/81 02/26/24 22:22 87 O2 Del Method 02/27/24 08:40 02/27/24 07:40 02/27/24 07:39 Room Air 02/27/24 07:10 02/27/24 06:55 02/27/24 06:36 02/27/24 03:40 Room Air 02/27/24 02:25 02/27/24 02:13 Room Air 02/27/24 01:48 Room Air 02/26/24 23:30 02/26/24 22:22 Diagnostic Findings Laboratory Results WBC 8.42 K/ul (4.8-10.8) 02/27/24 05:22 RBC 1.94 M/uL (4.20-5.40) L 02/27/24 05:22 Hgb 5.7 g/dl (12.0-16.0) L* 02/27/24 05:22 Hct 18.3 % (37.0-47.0) L* 02/27/24 05:22 MCV 94.3 fL (80.0-100.0) 02/27/24 05:22 MCH 29.4 pg (25.0-34.0) 02/27/24 05:22 MCHC 31.1 g/dL (32.0-36.0) L 02/27/24 05:22 RDW Std Deviation 53.1 fL (36.4-46.3) H 02/27/24 05:22 RDW Coeff of Erum 15.3 % (11.5-14.5) H 02/27/24 05:22 Plt Count 307 K/uL (130-400) 02/27/24 05:22 MPV 9.4 fL (9.4-12.4) 02/27/24 05:22 Immature Gran % (Auto) 1.7 % 02/27/24 05:22 Neut % (Auto) 81.8 % 02/27/24 05:22 Lymph % (Auto) 9.5 % 02/27/24 05:22 [place] % (Auto) 5.2 % 02/27/24 05:22 Eos % (Auto) 1.3 % 02/27/24 05:22 Baso % (Auto) 0.5 % 02/27/24 05:22 Neut # (Auto) 6.89 K/uL (1.40-6.50) H 02/27/24 05:22 Lymph # (Auto) 0.80 K/uL (1.20-3.40) L 02/27/24 05:22 [place] # (Auto) 0.44 K/uL (0.11-0.59) 02/27/24 05:22 Eos # (Auto) 0.11 K/uL (0.00-0.50) 02/27/24 05:22 Baso # (Auto) 0.04 K/uL (0.00-0.20) 02/27/24 05:22 Immature Gran # (Auto) 0.14 K/uL (0.01-0.20) 02/27/24 05:22 Polychromasia 1+ 02/27/24 05:22 Sodium 139 mmol/L (136-145) 02/27/24 05:22 Potassium 4.0 mmol/L (3.5-5.1) 02/27/24 05:22 Chloride 102 mmol/L (98-107) 02/27/24 05:22 Carbon Dioxide 27 mmol/L (21-32) 02/27/24 05:22 Anion Gap 10 (3-11) 02/27/24 05:22 BUN 47 mg/dl (6-23) H 02/27/24 05:22 Creatinine 2.70 mg/dl (0.6-1.2) H D 02/27/24 05:22 Est Cr Clr Drug Dosing 19.6 ml/min 02/27/24 05:22 Est GFR ( Amer) 19.9 ml/min 02/27/24 05:22 Est GFR (Non-Af Amer) 17.2 ml/min 02/27/24 05:22 BUN/Creatinine Ratio 17.4 (10-20) 02/27/24 05:22 Glucose 106 mg/dl (70-99(Fasting)) H 02/27/24 05:22 POC Glucose 105 mg/dl (70-99) H 02/27/24 06:30 Estimat Average Glucose 103 mg/dl 02/27/24 05:22 Hemoglobin A1c 5.2 % (4.5-5.6) 02/27/24 05:22 Calcium 7.9 mg/dl (8.6-10.3) L 02/27/24 05:22 Magnesium 2.0 mg/dl (1.7-2.4) 02/27/24 05:22 Total Bilirubin 0.4 mg/dl (0.2-1.0) 02/26/24 19:55 AST 16 U/L (13-39) 02/26/24 19:55 ALT 13 U/L (7-52) 02/26/24 19:55 Alkaline Phosphatase 114 U/L (34-104) H 02/26/24 19:55 Total Protein 7.4 gm/dl (6.0-8.3) 02/26/24 19:55 Albumin 3.1 gm/dl (3.4-5.0) L 02/26/24 19:55 Globulin 4.3 gm/dl (2.5-4.0) H 02/26/24 19:55 Albumin/Globulin Ratio 0.7 (0.9-2) L 02/26/24 19:55 Urine Color Yellow 02/26/24 21:23 Urine Appearance Cloudy (Clear) A 02/26/24 21:23 Urine pH >= 9.0 (4.5-7.5) H 02/26/24 21:23 Ur Specific [place] 1.010 (1.000-1.030) 02/26/24 21:23 Urine Protein 2+ (Negative) H 02/26/24 21:23 Urine Glucose (UA) 1+ (Negative) H 02/26/24 21:23 Urine Ketones Negative (Negative) 02/26/24 21:23 Urine Blood 1+ (Negative) H 02/26/24 21:23 Urine Nitrite Negative (Negative) 02/26/24 21:23 Urine Bilirubin Negative (Negative) 02/26/24 21:23 Urine Urobilinogen Negative (Negative) 02/26/24 21:23 Ur Leukocyte Esterase Trace (Negative) H 02/26/24 21:23 Urine WBC (Auto) 0-5 /hpf (0-5) 02/26/24 21:23 Urine RBC (Auto) 6-10 /hpf (0-2) H 02/26/24 21:23 U Hyaline Cast (Auto) 3-5 /lpf (0-2) H 02/26/24 21:23 U Epithel Cells (Auto) >20 /hpf (0-2) H 02/26/24 21:23 Urine Bacteria (Auto) None Seen (None Seen) 02/26/24 21:23 Nasal Screen MRSA (PCR) Negative (Negative) 02/27/24 03:52 Adenovirus (PCR) Not Detected (NotDetected) 02/27/24 00:30 B. pertussis DNA (PCR) Not Detected (NotDetected) 02/27/24 00:30 B.parapertussis DNA PCR Not Detected (NotDetected) 02/27/24 00:30 C. pneumoniae DNA (PCR) Not Detected (NotDetected) 02/27/24 00:30 Coronavirus OC43 (PCR) Not Detected (NotDetected) 02/27/24 00:30 Coronavirus HKU1 (PCR) Not Detected (NotDetected) 02/27/24 00:30 Coronavirus 229E (PCR) Not Detected (NotDetected) 02/27/24 00:30 SARS-CoV-2 (PCR) Not Detected (NotDetected) 02/27/24 00:30 Coronavirus NL63 (PCR) Not Detected (NotDetected) 02/27/24 00:30 Human Metapneumovir PCR Not Detected (NotDetected) 02/27/24 00:30 Influenza Type A (PCR) Not Detected (NotDetected) 02/27/24 00:30 Influenza Type B (PCR) Not Detected (NotDetected) 02/27/24 00:30 M. pneumoniae (PCR) Not Detected (NotDetected) 02/27/24 00:30 Parainfluenza 1 (PCR) Not Detected (NotDetected) 02/27/24 00:30 Parainfluenza 2 (PCR) Not Detected (NotDetected) 02/27/24 00:30 Parainfluenza 3 (PCR) Not Detected (NotDetected) 02/27/24 00:30 Parainfluenza 4 (PCR) Not Detected (NotDetected) 02/27/24 00:30 RSV (PCR) Not Detected (NotDetected) 02/27/24 00:30 Entero/Rhino (PCR) Not Detected (NotDetected) 02/27/24 00:30 Blood Type A Negative 02/26/24 23:47 Antibody Screen POSITIVE A 02/26/24 23:47 Antibody Identification Anti-E 02/26/24 23:47 Antibody ID Comment 02/26/24 23:47 Crossmatch See Detail 02/26/24 23:47 Impressions Chest X-Ray 02/26/24 22:02 XR chest 1V portable HISTORY: chills COMPARISON: Chest 12/24/2023. FINDINGS: There are low lung volumes. No pneumothorax. The cardiac silhouette remains enlarged. There is progressive interstitial/vascular thickening suggestive of mild pulmonary edema. No definite pleural effusions. Calcifications within the aortic knob. Degenerative changes within the shoulders again noted. IMPRESSION: Cardiomegaly with interval progression of the mild interstitial pulmonary edema. ACT 112: Negative or not required by law. Electronically signed by: Bryon Recinos M.D. 02/27/2024 7:24 AM PG Care Time/CCT Total # of Minutes Spent Total Time Spent with Patient: Total time spent is greater than 50% in coordination of care (as documented) at patient's floor/unit and/or counseling patient: Coding Level of Care Code 03308 INT INP/OBS CARE 3/75MIN Diagnoses Symptomatic anemia D64.9
--- NOTE | 2024-02-27 11:16 | Communication Note ---
Date of Service: February 27, 2024 Patient seen and examined Reports weakness, dysuria No fever Reported Currently getting PRBC Check CBC after transfusion Plan to transfuse prn to keep Hb>7 Discussed with GI. Will do clears once Hb is optimized and then NPO PMN for GI reeval tomorrow Discussed with Nephro. Patient is ok to get up to 2 pRBC today. If more, will notify Nephro to determine if HD is needed today. If not, will get HD tomorrow AM Continue antibiotics for UTI Get CT ab/P Follow up infectious workup Other plans as in H/P
--- OUTSIDE RECORDS SUMMARY | 2024-02-27 11:16 | External Medical Summary | Summary of Care ---
Author Name Unknown Organization [facility] Address [address] [place] [address] Phone [phone] Care Team Providers Care Pharmaceutical Salesperson Name Role Phone Willie Pizarro MD Primary Care Provider + Reason for Visit * Reason Onset Date Comments Medication Refill 02/25/2024 Status Check 02/25/2024 Encounter Details Date Type Department Care Team (Late st Contact Info) Description 02/25/2024 Refill Family Practice [facility] [address] [facility] [address] Willie [facility]izarro [facility] [address] [facility] [place] [address] MEDICATION USE AGREEMENT; Arthritis of left shoulder [...] as of this encounter (statuses as of 02/26/2024) Medications Medication Sig Dispensed Refills Start Date [...] hemoglobin A1c goal of less than 8.0% ([facility]) Use as directed 2 times [...] AT BEDTIME 90 Tablet 0 01/12/2024 Active Trulicity 0.75 MG/0.5ML Subcutaneous Solution Pen-injector [...] UNTIL RESOLVED 50 g 1 02/02/2024 Active oxyCODONE HCl 15 MG Oral Tablet (Roxicodone)Indica tions:MEDICATION USE AGREEMENT,Arthriti s of left shoulder region,Spondylolis thesis of lumbosacral region,H/O bilateral hip replacements Take 1 Tablet by mouth every 8 hours as needed (pain). 90 Tablet 0 02/26/2024 Active oxyCODONE HCl 15 MG Oral Tablet (Roxicodone)Indica tions:MEDICATION USE AGREEMENT,Arthriti s of left shoulder region,Spondylolis thesis of lumbosacral region,H/O bilateral hip replacements Take 1 Tablet by mouth every 8 hours as needed (pain). 90 Tablet 0 01/29/2024 4 Discontinue d(Refill) documented as of this encounter (statuses as of 02/26/2024) Active Problems Problem Noted Date Diagnosed Date [...] will 2017 consider transplant needs 20lb -HD [facility]? T,R, S. Since January 2013. Spondylolisthesis [...] as of this encounter (statuses as of 02/26/2024) Resolved Problems Problem Noted Date Diagnosed Date Resolved Date Thoracic compression fracture 04/09/2021 04/13/2021 Overview: Mult levels 04/09 CT [facility] + lumbar Respiratory symptoms 01/08/2020 021 Fever of unknown origin (FUO) 01/07/2020 02/26/2021 Respiratory infection 01/07/20202020 Cellulitis 06/28/2016 09/08/2016 Abnormal vaginal bleeding 02/12/2016 Cellulitis 02/07/2016 09/08/2016 UTI (urinary tract infection), bacterial 04/19/2014 05/02/2014 Hypotension 04/15/2014 05/02/2014 Compression of lumbar vertebra 02/03/2013 06/07/2021 Overview: Mult levels noted 04/[address] [facility] [address] also thoracic CKD (chronic kidney [...] 140/90 08/25/200909/06 Overview: Modified 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 plate roller current use of ant icoagulant therapy 04/19/2009 [...] s/p B/L stents Sees Dr. Angel in [place] for Urology Osteoarthritis of hip 2018 documented as of this encounter (statuses as of 02/26/2024) Immunizations Name Administration Dates Next Due COVID-19 [...] Telephone Encounter - Willie Pizarro MD - 02/26/2024 2:40 PM EDTSigned Prescriptions: Disp Refills oxyCODONE HCl 15 MG Oral Tablet (Roxicodon*90 Tab*0 Sig: Take 1 Tablet by mouth every 8 hours as needed (pain). Authorizing Provider: WILLIE PIZARRO * Telephone Encounter - Margaret Barksdale [facility] - 02/26/2024 2:33 PM EDTPending Prescriptions: Disp Refills oxyCODONE HCl 15 MG Oral Tablet (Roxicodon*90 Tab*0 Sig: Take 1 Tablet by mouth every 8 hours as needed (pain). * Telephone Encounter - Margaret Barksdale [facility] - 02/26/2024 2:32 PM EDT Pt calling to check on status of oxycodone and wanted to let doctor know she is in town tomorrow for an appt. and would like to pick her medication then. I have reviewed the patients controlled substance dispensing history in the Prescription Drug Monitoring Program in compliance with the [facility] regulations before prescribing a controlled substance. PDMP checked on 02/26/2024. Pending Prescriptions: Disp Refills oxyCODONE HCl 15 MG Oral Tablet (Roxicodo*90 Tab*0 Sig: Take 1 Tablet by mouth every 8 hours as needed (pain). Last Visit: 01/29/2024 (in office), 01/21/2024 (telemedicine) Next Visit: 05/07/2024 Date medication was last filled: 01/28 Date medication is due for refill: 02/26 Pharmacy: [facility] Is this request for a controlled [...] in Results Review. Please approve if appropriate. Thank you, Margaret Barksdale PharmD Clinical Pharmacist [facility]acy Services ([facility]) (formerly Telepharmacy) [phone] 02/26/2024, 2:32 PM * Telephone Encounter - Jenna Daugherty PHARM Tech - 02/26/2024 2:15 PM EDT Pt calling to check on status of oxycodone and wanted to let doctor know she is in town tomorrow for an appt. and would like to pick her medication then. Thank you, Jenna Daugherty [facility] II Centralized Clinical Pharmacy Services ([facility]) (Formerly Telepharmacy) 02/26/2024, 2:15 PM * Telephone Encounter - Arlene Araujo CPhT - 02/26/2024 2:11 PM EDT Pt calling to check on status of oxycodone. Caller can be reached at [phone]. Thank you, Arlene Gerard CPhT Manager Urgent Care III [facility] ([facility]) 02/26/2024,2:11 PM * Telephone Encounter - Mary Posey networker - 02/25/2024 10:57 AM EDT Did you pend patient's preferred pharmacy and medication before forwarding?yes Pharmacy: [facility] Pending Prescriptions: Disp Refills oxyCODONE HCl 15 MG Oral Tablet (Roxicodo*90 Tab*0 Sig: Take 1 Tablet by mouth every 8 hours as needed (pain). Last Visit: 01/29/2024 (in office), 01/21/2024 (telemedicine) Next Visit: 05/07/2024 If no future appointments scheduled, and last appointment is greater than a year ago, please schedule patient for a follow-up appointment Last date the medication was ordered: 01/29/2024 Is this request for a controlled substance?Yes, What was the last refill date 01/29/2024 w/ quantity 90 and dosage 15mg and Urine Drug Screen was completed Urine [...] Description 03/01/2024 1:30 PM EDT Office Visit [facility] [address] [place] [address] Lj Maxwell [facility] [address] [facility] [address] 03/10/2024 10:00 AM EDT Office Visit Otolaryngology [facility] [address] [place] [address] Te Vann DO [address] [place] [address] 03/17/2024 11:00 AM EDT Cardiac Studies Cardiac Studies, [facility] [address] [facility] [place] [address] 03/24/2024 11:00 AM EDT Office Visit Cardiology, [facility] [address] [place] [address] Rosalee Cardoso CRNP [address] [place] [address] 03/29/2024 1:20 PM EDT Office Visit Dermatology [address] [place] [address] Coco Ivan PA-C [address] [place] [address] [place] [address] 04/05/2024 11:00 AM EDT Imaging Radiology [facility] [address] [place] [address] 05/07/2024 12:20 PM EDT Office Visit Family Practice [facility] [place] [address] Willie Pizarro MD [address] [place] [address] Scheduled Procedures Name Priority Associated Diagnoses Date/Ti [...] this encounter Medical Devices Implanted Type Area Bobbin Painter Device Identifier Shelf Expiration Date Model / Serial / Lot Cement Antibiotic Bone - [id number] Implanted:Qty: 3 on 04/28/2012 at [place] [facility] Right: Hip VERONICA : ORTH[employer] 11/19/2013 6197-9-010 / / [id number] Prostalac Acetabular Cup Implanted:Qty: 1 on 04/28/[address] [facility] Right: Hip SUBHA & SUBHA DEPUY 05/19/2017 1541-42-320 / / [id number] Prostalac Hip Stem Size 105mm Std Offset Implanted:Qty: 1 on 04/28/[address] [facility] Right: Hip SUBHA & SUBHA DEPUY 10/19/2021 1541-01-000 / / [id number] Description:Prostalac Hip St em Size 105mm Offset (Depuy) Ball Artic Wiliam Brn 32 Plus5 - [id number] Implanted:Qty: 1 on 04/28/2012 at OR [facility] Right: Hip JNJ : DEPUY ORTHOPAEDICS 10/19/2016 [id number] / / [id number] Rest Mod Prox Cone Body 23 +11 - [id number] Implanted:Qty: 1 on 04/14/2014 at OR [facility] Right: Hip VERONICA : ORTHOPA[employer] 10/19/2018 6276-1-123 / / [id number] Head Fem 28mm - [id number] Implanted:Qty: 1 on 04/14/[address] [facility] Right: Hip VERONICA : ORTHOPA[employer] 08/19/2018 6570-0-228 / / [id number] Insert 28mm - [id number] Implanted:Qty: 1 on 04/14/2014 at OR [facility] Right: Hip VERONICA : ORTHOPA[employer] 02/16/2019 1236-2-848 / / [id number] Cable/Sle Beaded D/M 20 Vit - [id number] Implanted:Qty: 1 on 04/14/2014 at OR [facility] Right: Hip VERONICA : ORTHOPA[employer]ICS 10/19/2017 6704-0-520 / / [id number] Cable/Sle Beaded D/M 20 Vit - [id number] Implanted:Qty: 1 on 04/14/[address] [facility] Right: Hip VERONICA : ORTHOPAEDICS 10/19/2017 6704-0-520 / / [id number] Tritanium Revision Acetabular - [id number] Implanted:Qty: 1 on 04/14/[address] [facility] Right: Hip VERONICA : ORTHOPAEDICS 05/19/2018 [id number] / / [id number] Screw Bone Osteolock 24 - [id number] Implanted:Qty: 1 on 04/14/[address] [facility] Right: Hip VERONICA : ORTHOPA[employer] 02/16/2019 5260-5-024 / / [id number] Screw Bone Osteolock 35 - [id number] Implanted:Qty: 1 on 04/14/[address] [facility] Right: Hip VERONICA : ORTHOPA[employer]ICS 03/19/2017 5260-5-035 / / [id number] Liner 42mm - [id number] Implanted:Qty: 1 on 04/14/[address] [facility] Right: Hip VERONICA : ORTHOPAEDICS 11/19/2018 626-00-42E / / [id number] Hip S Mod Conical Dis 10r593 - [id number] Implanted:Qty: 1 on 04/14/[address] [facility] Right: Hip VERONICA : ORTHOPA[employer] 12/17/2018 6276-7-017 / / [id number] documented as of this encounter Visit Diagnoses [...] and were consensually agreed upon. Care Teams Pharmaceutical Salesperson Relationship Specialty Start Date End Date Willie Pizarro MD [address] [place] [address] PCP - General Family Medicine 11/22/16 documented as of this encounter
[2024-02-27 11:19] LABS: Hematocrit (blood only) 26.2 % (37.0-47.0); Hemoglobin 8.1 g/dl (12.0-16.0); Mean Corpuscular Hemoglobin 29.3 pg (25.0-34.0); Mean Corpuscular Hgb Conc 30.9 g/dL (32.0-36.0); Mean Corpuscular Volume 94.9 fL (80.0-100.0); Mean Platelet Volume 9.2 fL (9.4-12.4); Platelet Count 353 K/uL (130-400); RDW Coefficient of Variation 15.9 % (11.5-14.5); RDW Standard Deviation 55.2 fL (36.4-46.3); Red Blood Count 2.76 M/uL (4.20-5.40); White Blood Count 9.49 K/ul (4.8-10.8)
--- NOTE | 2024-02-27 12:07 | CT Scan Report ---
CT abd pelvis wo con CLINICAL HISTORY: Assess Kidneys/Bladder TECHNIQUE: Helical axial images of the abdomen and pelvis were obtained. Automated dose lowering tech niques and/or adjustment according to patient size were utilized for this exam. This exam was perfor med without intravenous contrast. CT DOSE: 1529.7 mGy.cm COMPARISON: Comparison is made to CT abdomen pelvis 11/23/2011 FINDINGS: Lower chest: Bibasilar atelectasis versus scarring is seen. Liver: Unremarkable. No focal lesions are seen. Gallbladder and biliary tree: No calcified gallstones. Normal caliber wall. No intra- or extrahepatic biliary ductal dilation. Pancreas: Unremarkable, no focal lesions. Spleen: Unremarkable. Adrenals: Unremarkable. Kidneys and ureters: There is atrophy of the bilateral kidneys, significantly progressed from 2012. T here is ill-defined fat stranding in the left renal hilum. Bladder: Limited evaluation due to underdistention. Reproductive organs: Unremarkable. Bowel: Postsurgical changes are seen in the bowel. Lymph nodes Retroperitoneal: Unremarkable. Pelvic: Unremarkable. Mesenteric: Unremarkable. Peritoneum: Normal. Vessels: Atherosclerotic calcifications are seen. Abdominal wall: There is a large left fat-containing inguinal hernia which also contains multiple loo ps of nondilated small bowel. Bones: Old healed rib fractures are seen. Degenerative changes are seen in the spine. Bilateral hip a rthroplasties are seen. IMPRESSION: 1. Atrophic appearance of the bilateral kidneys. Ill-defined fat stranding in the left renal hilum i s nonspecific and a 3 month follow-up CT is recommended. 2. No acute abnormality to explain hematochezia. 3. Nondilated loops of small bowel in the left inguinal hernia. ACT 112: Negative or not required by law. Electronically signed by: Rich Chan M.D. 02/27/2024 12:04 PM
[2024-02-27] MEDS ORDERED: CALCIUM ACETATE 667 MG CAP/TAB PO PRN (12:31)
[2024-02-27] MEDS ORDERED: Nursing to Pharmacy Communication SCH (16:30)
[2024-02-27] MEDS: CALCIUM ACETATE 667 MG CAP/TAB PO SCH (16:56)
[2024-02-27 17:09] LABS: Hematocrit (blood only) 25.9 % (37.0-47.0)
[2024-02-27] MEDS: rOPINIRole HCL 2 MG TABLET PO SCH (20:14)
[2024-02-27] MEDS: SIMVASTATIN 20 MG TAB PO SCH (20:15)
[2024-02-27] MEDS: LANSOPRAZOLE 30 MG SOLTAB PO SCH (20:15)
[2024-02-27] MEDS: cefTRIAXone SODIUM 2,000 MG/50 ML BAG IV SCH (22:59)
[2024-02-28] MEDS ORDERED: SODIUM CHLORIDE 0.9% 1,000 ML IV PRN (07:23)
[2024-02-28 07:32] LABS: Hematocrit (blood only) 21.2 % (37.0-47.0); Hemoglobin 6.6 g/dl (12.0-16.0); Mean Corpuscular Hemoglobin 29.5 pg (25.0-34.0); Mean Corpuscular Hgb Conc 31.1 g/dL (32.0-36.0); Mean Corpuscular Volume 94.6 fL (80.0-100.0); Mean Platelet Volume 9.5 fL (9.4-12.4); Platelet Count 327 K/uL (130-400); RDW Coefficient of Variation 16.1 % (11.5-14.5); RDW Standard Deviation 55.2 fL (36.4-46.3); Red Blood Count 2.24 M/uL (4.20-5.40); White Blood Count 8.76 K/ul (4.8-10.8)
[2024-02-28 07:35] LABS: Calcium 8.2 mg/dl (8.6-10.3); Potassium 4.5 mmol/L (3.5-5.1)
[2024-02-28] MEDS ORDERED: SODIUM CHLORIDE 0.9% 250 ML IV PRN (07:39)
[2024-02-28 07:41] LABS: BUN Creatinine Ratio 16.1 (10-20); Creatinine Clr Calc Pharmacy 13.3 ml/min; Est GFR (African American) 12.3 ml/min; Est GFR (Non-African American) 10.6 ml/min
--- NOTE | 2024-02-28 08:50 | Gastroenterology Progress Note ---
Date of Service February 28, 2024 Assessment & Plan Admission and Anticipated Discharge Date Admission Date: February 27, 2024 Supervising Physician Co-Signing Physician Notes 69 yo fm with esrd, dm, admitted with acute on chronic anemia with reports of ? gi bleed - to [facility] yesterday reportedly melena, per chart review hematochezia and fobt+. To me today no reports of any bleeding other than prior to admission when she wiped. She does have a slight drop in hgb this am - getting blood. Given no overt bleed, changed in hemodynamics, with esrd she may have a small avm as source for her anemia. Would consider for now her reluctance to an egd and no overt indication at the time, to just continue with alternative ppi given her allergy, transfuse and continue to assess her clinical status. If she does fine by the evening, she could have a clear liquid diet. Would hold blood thinner in the setting of concerns for ? gi bleed. Subjective Patient reports no bleeding to me overnite or this am - no reports of melena. On further review she states she knows has hemorrhoids and a few days ago noticed when she wiped they were red. She was admitted yesterday due to concerns for a uti. GI was consulted for ? bleeding and also fobt+ and anemia on chronic anemia. She has a history of esrd, an allergy to protonix. [facility] saw her - per their signout she refused an egd, and had an allergy to protonix. She is on an alternative ppi. She reports no bleeding overnite - no hemetemesis, no melena, no hematochezia, no belly pain this morning. She is more concerned about her uti type symptoms. Review of Systems Review of Systems: All systems reviewed & are unremarkable except as noted in HPI & below Physical Exam Physical Exam: Elderly female sitting in bed in nad Eyes: perrla Respiratory: Normal respirations Cardiovascular: Normal heart rate Gastrointestinal (Abdomen): obese soft Results & Data Vital Signs (Past 12 Hours) Vital Signs Temp Pulse Pulse Resp BP BP Pulse Ox 02/28/24 08:28 36.6 C 95 H 20 142/63 H 96 02/28/24 08:10 36.5 C 100 H 18 134/58 L 95 02/28/24 07:10 36.8 C 92 H 23 132/73 93 02/28/24 02:00 36.6 C 104 H 18 138/65 92 02/27/24 23:40 94 H 02/27/24 22:57 36.5 C 102 H 18 142/70 H 94 O2 Del Method 02/28/24 08:28 02/28/24 08:10 02/28/24 07:10 Room Air 02/28/24 02:00 Room Air 02/27/24 23:40 02/27/24 22:57 Room Air Laboratory Results Hgb is lower than yesterday Bun/cr are elevated but ckdz Diagnostic Findings CT a/p reviewed - normal from a gi standpoint
--- NOTE | 2024-02-28 13:05 | Hospitalist Progress Note ---
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 Her had reported she has some black stools lately. Denies any obvious blood in the stools. Possible GI bleed Hemoglobin 7.3->5.7 Hemoglobin 10.6 in December 24, 2023 Hemoccult positive in the ER Questionable black stools Could not give Protonix because of allergy IV Pepcid 20 mg renal dosing Home ASA on hold Got 1 PRBC yesterday. Hb improved to 8 and back down to 6.6 this AM Got another PRBC this AM prior to HD Will repeat CBC later this evening GI evaluation noted. Per GI, patient declined EGD yesterday Will monitor Hb and BM If remains stable by evening, will start clear liquid per GI UTI Continue ceftriaxone Urine culture End-stage renal disease On hemodialysis Nephrology on board Type 2 diabetes Sliding scale Will monitor Hyperlipidemia On statin Depression On citalopram Squamous cell carcinoma of the right hand S/p surgery Follow-up. Deep DVT prophylaxis SCDs Disposition Telemetry Full code I spent a total of 50 minutes coordinating, documenting and providing care for this patient excluding time spent in performance of separately billed services Admission and Anticipated Discharge Date Admission Date: February 27, 2024 Subjective Patient seen and examined in dialysis unit getting hemodialysis. Patient reports weakness. Denies any dizziness, shortness of breath, palpitations, chest pain Denies any cough Denies nausea, vomiting, abdominal pain or diarrhea. Denied melena/hematochezia since eval yesterday Reports dysuria improved Physical Exam Constitutional: + well hydrated; no acute distress Eyes: PERRL, conjunctivae normal, anicteric sclerae ENMT: external ear and nose normal, oropharynx normal Respiratory: Normal respiratory effort On room air Diminished breath sounds Cardiovascular: S1 S2 Gastrointestinal (Abdomen): normal bowel sounds, soft, nontender, no hepatosplenomegaly Musculoskeletal: RUE swelling (patient reports its not new and attributed it to her Rt dialysis fistula and recent skin graft) Neurologic: PERRL, EOMI, accommodation nl, no face palsy, no dysarthria Psychiatric: A+Ox3, euthymic affect Results & Data Results & Data Vital Signs (Past 12 Hours) Vital Signs Temp Pulse Pulse Pulse Resp BP BP 02/28/24 12:30 94 H 127/91 02/28/24 12:00 94 H 139/54 L 02/28/24 11:30 77 123/66 02/28/24 11:00 81 123/60 02/28/24 10:48 36.7 C 81 18 121/71 02/28/24 10:30 89 118/67 02/28/24 10:13 36.7 C 79 18 120/79 02/28/24 09:55 36.7 C 84 02/28/24 09:13 36.6 C 94 H 18 141/71 H 02/28/24 08:43 36.6 C 93 H 18 142/63 H 02/28/24 08:28 36.6 C 95 H 20 142/63 H 02/28/24 08:10 36.5 C 100 H 18 134/58 L 02/28/24 07:10 36.8 C 92 H 23 132/73 02/28/24 02:00 36.6 C 104 H 18 138/65 Pulse Ox O2 Del Method 02/28/24 12:30 02/28/24 12:00 02/28/24 11:30 02/28/24 11:00 02/28/24 10:48 02/28/24 10:30 02/28/24 10:13 02/28/24 09:55 02/28/24 09:13 96 02/28/24 08:43 96 02/28/24 08:28 96 02/28/24 08:10 95 02/28/24 07:10 93 Room Air 02/28/24 02:00 92 Room Air Laboratory Results Abnormal lab results 02/26/24 02/27/24 02/27/24 Range/Units 23:47 16:19 16:48 RBC (4.20-5.40) M/uL Hgb 8.0 L (12.0-16.0) g/dl Hct 25.9 L (37.0-47.0) % MCHC (32.0-36.0) g/dL RDW Std Deviation (36.4-46.3) fL RDW Coeff of Erum (11.5-14.5) % Anion Gap (3-11) BUN (6-23) mg/dl Creatinine (0.6-1.2) mg/dl POC Glucose 103 H (70-99) mg/dl Calcium (8.6-10.3) mg/dl Antibody Screen POSITIVE A Crossmatch See Detail 02/27/24 02/28/24 Range/Units 20:10 06:50 RBC 2.24 L (4.20-5.40) M/uL Hgb 6.6 L* (12.0-16.0) g/dl Hct 21.2 L (37.0-47.0) % MCHC 31.1 L (32.0-36.0) g/dL RDW Std Deviation 55.2 H (36.4-46.3) fL RDW Coeff of Ermu 16.1 H (11.5-14.5) % Anion Gap 13 H (3-11) BUN 65 H (6-23) mg/dl Creatinine 4.03 H D (0.6-1.2) mg/dl POC Glucose 104 H (70-99) mg/dl Calcium 8.2 L (8.6-10.3) mg/dl Antibody Screen Crossmatch
--- NOTE | 2024-02-28 14:38 | Nephrology Progress Note ---
Date of Service February 28, 2024 Assessment & Plan (1) Acute GI bleeding: Plan: per primary service and GI; on RA and not volume overloaded currently hgb dropped this am to 6.6 > got pRBC 1 unit on HD and tolerated 2L UF. >> could transfuse up to 2 units pRBC w/o issue next 24 hrs; if greater need anticipated contact nephro > may need urgent HD. last tsat in January 54%; likely lower now -serial H&H -transfuse PRN -f/u GI recs > defer EGD for now; ? PPI altnerative (2) End stage renal disease on dialysis: Plan: on TRSat HD via AVF >next HD on 03/02 unless issues above (3) MINDI (obstructive sleep apnea): Plan: not on OP therapy d/t long delays in f/u (sleep study done [facility] Jun 2023 w/ severe MINDI) > recommend appropriate therapy while in house (4) Lower urinary tract symptoms (LUTS): Plan: UA has no bacteria >> ? if glucosuria was causing LUTS but this is not a UTI. abd CT shows poorly defined fat stranding at the left renal hilum for which 3- month follow-up is recommended >>given no bacteria on UA would consider stopping abtx Admission and Anticipated Discharge Date Admission Date: February 27, 2024 Subjective no sob, no n/v; does not mention dysuria. no obvious bleeding. frustrated no scope. Review of Systems 2 Review of Systems: All systems reviewed & are unremarkable except as noted in Subjective Physical Exam 2 Constitutional: well developed (sitting in reclining chair on RA), well nourished and cooperative; no acute distress Eyes: EOM intact bilaterally ENMT: Ears: no external ear abnormality Nose: no external nose abnormality Mouth: + dry oral mucous membranes Neck: no nuchal rigidity Respiratory: normal respiratory effort Auscultation: + diminished lung sounds Cardiovascular: Rate/Rhythm: regular rhythm and + tachycardic (in 90s) E xtremities: + AV fistula (RUE+ t/b) Gastrointestinal (Abdomen): Inspection/Auscultation: normal bowel sounds P ercussion/Palpation: abdomen soft; abdomen nontender Musculoskeletal: Extremities: strength 5/5 throughout Skin: no rashes, warm and dry Neurologic: Moves all extremities, fluent speech, no tremor Results & Data Vital Signs (Past 12 Hours) Vital Signs Temp Pulse Pulse Pulse Resp BP BP 02/28/24 14:10 36.7 C 93 H 139/66 02/28/24 14:00 91 H 131/68 02/28/24 13:30 92 H 122/68 02/28/24 13:00 94 H 120/64 02/28/24 12:30 94 H 127/91 02/28/24 12:00 94 H 139/54 L 02/28/24 11:30 77 123/66 02/28/24 11:00 81 123/60 02/28/24 10:48 36.7 C 81 18 121/71 02/28/24 10:30 89 118/67 02/28/24 10:13 36.7 C 79 18 120/79 02/28/24 09:55 36.7 C 84 02/28/24 09:13 36.6 C 94 H 18 141/71 H 02/28/24 08:43 36.6 C 93 H 18 142/63 H 02/28/24 08:28 36.6 C 95 H 20 142/63 H 02/28/24 08:10 36.5 C 100 H 18 134/58 L 02/28/24 07:10 36.8 C 92 H 23 132/73 Pulse Ox O2 Del Method 02/28/24 14:10 02/28/24 14:00 02/28/24 13:30 02/28/24 13:00 02/28/24 12:30 02/28/24 12:00 02/28/24 11:30 02/28/24 11:00 02/28/24 10:48 02/28/24 10:30 02/28/24 10:13 02/28/24 09:55 02/28/24 09:13 96 02/28/24 08:43 96 02/28/24 08:28 96 02/28/24 08:10 95 02/28/24 07:10 93 Room Air Laboratory Results 02/28/24 06:50 02/28/24 06:50
[2024-02-28] MEDS: GABAPENTIN 100 MG CAP PO SCH (15:26)
[2024-02-28 17:16] LABS: Hematocrit (blood only) 30.6 % (37.0-47.0); Hemoglobin 9.7 g/dl (12.0-16.0); Mean Corpuscular Hemoglobin 29.2 pg (25.0-34.0); Mean Corpuscular Hgb Conc 31.7 g/dL (32.0-36.0); Mean Corpuscular Volume 92.2 fL (80.0-100.0); Mean Platelet Volume 8.9 fL (9.4-12.4); Platelet Count 330 K/uL (130-400); RDW Coefficient of Variation 16.3 % (11.5-14.5); Red Blood Count 3.32 M/uL (4.20-5.40); White Blood Count 9.95 K/ul (4.8-10.8)
[2024-02-28] MEDS: LORazepam 0.5 MG TAB PO STA (23:15)
[2024-02-29 06:31] LABS: Hematocrit (blood only) 25.7 % (37.0-47.0); Hemoglobin 8.1 g/dl (12.0-16.0); Mean Corpuscular Hgb Conc 31.5 g/dL (32.0-36.0); Mean Corpuscular Volume 92.1 fL (80.0-100.0); Mean Platelet Volume 9.1 fL (9.4-12.4); Platelet Count 283 K/uL (130-400); RDW Coefficient of Variation 15.6 % (11.5-14.5); RDW Standard Deviation 52.2 fL (36.4-46.3); Red Blood Count 2.79 M/uL (4.20-5.40); White Blood Count 7.41 K/ul (4.8-10.8)
[2024-02-29 07:03] LABS: Calcium 8.2 mg/dl (8.6-10.3); Creatinine Clr Calc Pharmacy 19.9 ml/min; Est GFR (Non-African American) 17.2 ml/min; Potassium 3.9 mmol/L (3.5-5.1)
--- NOTE | 2024-02-29 11:26 | Gastroenterology Progress Note ---
Date of Service February 29, 2024 Assessment & Plan Admission and Anticipated Discharge Date Admission Date: February 27, 2024 Supervising Physician Co-Signing Physician Notes Admitted Friday with concerns for a uti, acute on chronic anemia. no overt melena responded to blood transfusion allergy to protonix, on alternative ppi. continue with current mgmt. No plans for an endoscopy- she also refused to mngi team on friday. clear liquids today, can make empirically npo at midnite and mngi will re- evaluate in the am. Subjective No significant change Review of Systems Review of Systems: All systems reviewed & are unremarkable except as noted in HPI & below Physical Exam Physical Exam: Elderly fm in nad Eyes: perrla Gastrointestinal (Abdomen): soft nt nd Skin: normal Neurologic: mentating well Results & Data Vital Signs (Past 12 Hours) Vital Signs Temp Pulse Resp BP Pulse Ox O2 Del Method O2 Del Method 02/29/24 08:55 36.7 C 90 19 100/66 95 Room Air 02/29/24 03:00 36.9 C 91 H 17 112/64 93 Room Air 02/29/24 02:00 Room Air 02/28/24 23:50 36.8 C 95 H 17 127/66 95 Room Air Laboratory Results ghb has improved to 9 fluctating to 8 chronic bun/creatinine elevation
--- NOTE | 2024-02-29 12:28 | Hospitalist Progress Note ---
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 Her had reported she has some black stools lately. Denies any obvious blood in the stools. Possible GI bleed Hemoglobin 7.3->5.7 Hemoglobin 10.6 in December 24, 2023 Hemoccult positive in the ER Questionable black stools Could not give Protonix because of allergy IV Pepcid 20 mg renal dosing Home ASA on hold Got 1 PRBC on 02/27/24 and another on 02/28/24. Monitor Hb Had declined EGD initially but now wants to get EGD GI eval today noted. Continue clears and keep NPO PMN for GI reeval tomorrow UTI Continue ceftriaxone Urine culture End-stage renal disease On hemodialysis Nephrology on board Type 2 diabetes Sliding scale Will monitor Hyperlipidemia On statin Depression On citalopram Squamous cell carcinoma of the right hand S/p surgery Follow-up. Deep DVT prophylaxis SCDs Disposition Telemetry Full code I spent a total of 45 minutes coordinating, documenting and providing care for this patient excluding time spent in performance of separately billed services Admission and Anticipated Discharge Date Admission Date: February 27, 2024 Subjective Patient seen and examined Reports feeling better today Denies any dizziness, cough, shortness of breath, palpitations, chest pain Denies nausea, vomiting, abdominal pain or diarrhea. No BM since admission. Passing flatus Reports dysuria is improving Physical Exam Constitutional: + well hydrated; no acute distress Eyes: PERRL, conjunctivae normal, anicteric sclerae ENMT: external ear and nose normal, oropharynx normal Respiratory: Normal respiratory effort Diminished breath sounds Cardiovascular: S1 S2 Gastrointestinal (Abdomen): normal bowel sounds, soft, nontender, no hepatosplenomegaly Neurologic: PERRL, EOMI, accommodation nl, no face palsy, no dysarthria Psychiatric: A+Ox3, euthymic affect Results & Data Results & Data Vital Signs (Past 12 Hours) Vital Signs Temp Pulse Resp BP Pulse Ox O2 Del Method O2 Del Method 02/29/24 11:32 36.6 C 92 H 18 119/88 98 Room Air 02/29/24 08:55 36.7 C 90 19 100/66 95 Room Air 02/29/24 03:00 36.9 C 91 H 17 112/64 93 Room Air 02/29/24 02:00 Room Air Laboratory Results Abnormal lab results 02/28/24 02/28/24 02/29/24 Range/Units 16:59 21:02 06:10 RBC 3.32 L 2.79 L (4.20-5.40) M/uL Hgb 9.7 L D 8.1 L (12.0-16.0) g/dl Hct 30.6 L 25.7 L (37.0-47.0) % MCHC 31.7 L 31.5 L (32.0-36.0) g/dL RDW Std Deviation 55.0 H 52.2 H (36.4-46.3) fL RDW Coeff of Erum 16.3 H 15.6 H (11.5-14.5) % MPV 8.9 L 9.1 L (9.4-12.4) fL BUN 27 H D (6-23) mg/dl Creatinine 2.69 H D (0.6-1.2) mg/dl POC Glucose 112 H (70-99) mg/dl Calcium 8.2 L (8.6-10.3) mg/dl 02/29/24 Range/Units 11:30 RBC (4.20-5.40) M/uL Hgb (12.0-16.0) g/dl Hct (37.0-47.0) % MCHC (32.0-36.0) g/dL RDW Std Deviation (36.4-46.3) fL RDW Coeff of Erum (11.5-14.5) % MPV (9.4-12.4) fL BUN (6-23) mg/dl Creatinine (0.6-1.2) mg/dl POC Glucose 105 H (70-99) mg/dl Calcium (8.6-10.3) mg/dl
[2024-02-29 15:02] LABS: Hematocrit (blood only) 30.1 % (37.0-47.0); Hemoglobin 9.4 g/dl (12.0-16.0)
[2024-02-29] MEDS: FAMOTIDINE 20MG IV PUSH 20 MG/5 ML SYR IV SCH (16:58)
[2024-02-29] MEDS: LORazepam 0.5 MG TAB PO STA (22:00)
[2024-03-01 06:00] LABS: Hematocrit (blood only) 24.2 % (37.0-47.0); Hemoglobin 7.7 g/dl (12.0-16.0); Mean Corpuscular Hemoglobin 29.7 pg (25.0-34.0); Mean Corpuscular Hgb Conc 31.8 g/dL (32.0-36.0); Mean Corpuscular Volume 93.4 fL (80.0-100.0); Mean Platelet Volume 8.9 fL (9.4-12.4); Platelet Count 280 K/uL (130-400); RDW Coefficient of Variation 15.1 % (11.5-14.5); RDW Standard Deviation 51.8 fL (36.4-46.3); Red Blood Count 2.59 M/uL (4.20-5.40)
[2024-03-01 06:35] LABS: BUN Creatinine Ratio 9.4 (10-20); Creatinine Clr Calc Pharmacy 13.2 ml/min; Est GFR (African American) 12.2 ml/min; Est GFR (Non-African American) 10.5 ml/min; Potassium 3.9 mmol/L (3.5-5.1)
[2024-03-01 08:17] LABS: Hematocrit (blood only) 26.6 % (37.0-47.0); Hemoglobin 8.3 g/dl (12.0-16.0); Mean Corpuscular Hemoglobin 29.5 pg (25.0-34.0); Mean Corpuscular Hgb Conc 31.2 g/dL (32.0-36.0); Mean Corpuscular Volume 94.7 fL (80.0-100.0); Mean Platelet Volume 8.7 fL (9.4-12.4); Platelet Count 276 K/uL (130-400); RDW Coefficient of Variation 15.6 % (11.5-14.5); Red Blood Count 2.81 M/uL (4.20-5.40); White Blood Count 7.07 K/ul (4.8-10.8)
--- NOTE | 2024-03-01 09:14 | History & Physical Bridge Note ---
Date of Service March 01, 2024 History & Physical Bridge Note I have examined the patient, reviewed the History & Physical and in the interval since the performance of the History & Physical I have noted the following changes of clinical significance: no changes noted. Patient had hgb drop to 7.7 today. 02/29/24 hgb was 9.4. history of heme positive stools. she denies any nausea, vomiting, abdominal pain, dysphagia, SOB, chest pain, melena, or brbpr. She initially had refused an EGD but now would like to have one to further evaluate her anemia. she has been NPO. will have set up for EGD today. Supervising Physician Co-Signing Physician Notes Agree with MALENA Coyne as above Interviewed and examined patient and agree with above Abd: Soft, NT, ND, +BS Continue current therapy and supportive care Proceed with Colonoscopy
--- NOTE | 2024-03-01 10:02 | Nephrology Progress Note ---
Date of Service March 01, 2024 Assessment & Plan Admission and Anticipated Discharge Date Admission Date: February 27, 2024 Subjective Assessment & Plan (1) Acute GI bleeding: Plan: per primary service and GI; on RA and not volume overloaded currently hgb 8+ now after PRBC. For EGD today. will give SANJEEV with Dialysis (2) End stage renal disease on dialysis: Plan: on TRSat HD via AVF next HD on 03/02 and will do without heparin. Orders written. No e/o fluid overload and no major lytes issues. (3) MINDI (obstructive sleep apnea): Plan: not on OP therapy d/t long delays in f/u (sleep study done [facility] Jun 2023 w/ severe MINDI) > recommend appropriate therapy while in house (4) Lower urinary tract symptoms (LUTS): Plan: UA has no bacteria >> ? if glucosuria was causing LUTS but this is not a UTI. abd CT shows poorly defined fat stranding at the left renal hilum for which 3- month follow-up is recommended given no bacteria on UA would consider stopping abtx Subjective Feels fine. she is hungry and NPO for EGD later today. no sob, no n/v. no obvious bleeding. Review of Systems Review of Systems: All systems reviewed & are unremarkable except as noted in Subjective Physical Exam Constitutional: well developed (sitting in reclining chair on RA), well nourished and cooperative; no acute distress Eyes: EOM intact bilaterally ENMT: Ears: no external ear abnormality Nose: no external nose abnormality Mouth: + dry oral mucous membranes Neck: no nuchal rigidity Respiratory: normal respiratory effort Auscultation: + diminished lung sounds Cardiovascular: Rate/Rhythm: regular rhythm and + tachycardic (in 90s) Extremities: + AV fistula (RUE+ t/b) Gastrointestinal (Abdomen): Inspection/Auscultation: normal bowel sounds Percussion/Palpation: abdomen soft; abdomen nontender Musculoskeletal: Extremities: strength 5/5 throughout Skin: no rashes, warm and dry Neurologic: Moves all extremities, fluent speech, no tremor Results & Data Vital Signs (Past 12 Hours) Vital Signs Temp Pulse Pulse Resp BP Pulse Ox O2 Del Method 03/01/24 07:09 36.5 C 89 18 116/60 96 Room Air 03/01/24 03:42 36.7 C 86 17 113/66 96 Room Air 02/29/24 23:58 36.8 C 82 16 102/58 L 96 Room Air 02/29/24 23:00 88
[2024-03-01] MEDS: SODIUM CHLORIDE 0.9% 500 ML IV SCH (11:19)
--- NOTE | 2024-03-01 11:31 | Anesthesiology Consultation ---
Date of Service March 01, 2024 Assessment & Plan ASA ASA3 Proposed Anesthesia Anesthesia Type: MAC Risk / Benefits Reviewed With: PT / POA / Parent / Guardian, Accepts Plan and Informed Consent Obtained History Surgery Operation Date: 03/01/24 16:30 Proposed Procedures p Esophagogastroduodenoscopy Dr Cruz - Jose Benavides Case, DO Height/Weight Height: 5 ft 4 in Weight: 79.7 kg Allergies Allergy/AdvReac Type Severity Reaction Status Date / Time Sulfa (Sulfonamide Allergy Severe Face/lips/tongue Verified 03/01/24 11:18 Antibiotics) edema nitrofurantoin Allergy Intermediate Hives Verified 03/01/24 11:18 cefazolin [From Ancef] Allergy Unknown Unknown Verified 03/01/24 11:18 pantoprazole [From Protonix] Allergy Unknown Unknown Verified 03/01/24 11:18 methylprednisolone AdvReac Intermediate Sweating, Verified 03/01/24 11:18 [From Medrol] heart racing Medications Home Medications Medication Instructions Recorded Confirmed Last Taken aspirin 81 mg chewable tablet 81 mg PO QAM 12/31/18 02/26/24 01/01/24 08:00 gabapentin 100 mg capsule 100 mg PO DIRECTED 12/31/18 02/27/24 01/01/24 08:00 albuterol sulfate 90 mcg/actuation 2 puff inhalation Q6H PRN Wheezing 04/04/21 02/26/24 11/28/21 aerosol inhaler citalopram 20 mg tablet 20 mg PO QAM 04/04/21 02/26/24 01/01/24 08:00 oxycodone 15 mg tablet 15 mg PO Q8 PRN Pain 04/04/21 02/26/24 01/01/24 08:00 betamethasone dipropionate 0.05 % 1 applic topical BID PRN 11/15/23 02/26/24 12/31/23 topical ointment PSORIASIS/ITCHING cinacalcet 90 mg tablet 90 mg PO QAM 11/15/23 02/27/24 01/01/24 08:00 lanthanum 750 mg chewable tablet 750 mg PO TID 11/15/23 02/26/24 01/01/24 12:00 ropinirole 2 mg tablet 2 mg PO QPM 11/15/23 02/26/24 01/01/24 20:00 simvastatin 20 mg tablet 20 mg PO HS 11/15/23 02/26/24 01/01/24 20:00 vitamin B complex-vitamin C-folic 1 tab PO QAM 11/15/23 02/26/24 01/01/24 08:00 acid 0.8 mg tablet (Anais-Federico) dulaglutide 0.75 mg/0.5 mL 0.75 mg subcut WK 02/26/24 02/26/24 Unknown subcutaneous [facility] Active Medications Generic Name Dose Route Start Last Admin Trade Name Luisq PRN Reason Stop Dose Admin Calcium Acetate 2,001 mg 02/27/24 17:00 03/01/24 11:25 Calcium Acetate 667 Mg Cap/Tab PO 03/28/24 16:59 Not Given TIDM STEPHAN Cinacalcet 90 mg 02/27/24 09:00 03/01/24 08:33 Cinacalcet Hcl 90 Mg Tab PO 03/28/24 08:59 Not Given QAM STEPHAN Citalopram Hydrobromide 20 mg 02/27/24 09:00 03/01/24 08:34 Citalopram 20 Mg Tab PO 03/28/24 08:59 20 mg QAM STEPHAN Administration Gabapentin 100 mg 02/27/24 09:00 03/01/24 08:33 Gabapentin 100 Mg Cap PO 03/28/24 08:59 100 mg DAILY STEPHAN Administration Gabapentin 100 mg 02/28/24 16:00 02/28/24 15:26 Gabapentin 100 Mg Cap PO 03/29/24 15:59 100 mg TuThSa@1600 STEPHAN Administration Famotidine 20 mg in 5 mls @ 2.5 mls/min 02/29/24 16:00 02/29/24 16:58 Pepcid 20mg Iv Push IV 03/30/24 15:59 2.5 mls/min Q48H STEPHAN Administration Ceftriaxone Sodium 2,000 mg in 50 mls @ 100 mls/hr 02/27/24 23:00 02/29/24 22:35 Rocephin IV 03/08/24 22:59 Infused Q24H STEPHAN Infusion Sodium Chloride 500 mls @ 15 mls/hr 03/01/24 07:30 03/01/24 11:20 Nss IV 03/02/24 07:29 Infused .Q24H STEPHAN Infusion Insulin Aspart 0 units 02/27/24 16:30 03/01/24 11:25 Insulin Aspart Per Unit Charge SC 03/28/24 16:29 Not Given ACHS STEPHAN Lansoprazole 30 mg 02/27/24 21:00 03/01/24 08:33 Lansoprazole 30 Mg Soltab PO 03/28/24 20:59 30 mg BID STEPHAN Administration Miscellaneous 1 each 02/27/24 08:00 02/27/24 09:25 *Lanthanum*Order Awaiting Action N/A 03/28/24 07:59 Not Given QS STEPHAN Oxycodone HCl 15 mg 02/27/24 02:34 03/01/24 03:19 Oxycodone Hcl Ir 5 Mg Tab (Immediate Release) PO 03/12/24 02:33 15 mg Q8 PRN Administration Pain Ropinirole HCl 2 mg 02/27/24 21:00 02/29/24 22:00 Ropinirole Hcl 2 Mg Tablet PO 03/28/24 20:59 2 mg QPM STEPHAN Administration Simvastatin 20 mg 02/27/24 21:00 02/29/24 22:00 Simvastatin 20 Mg Tab PO 03/28/24 20:59 20 mg HS STEPHAN Administration Vitamin B Complex/Folic Acid 1 cap 02/27/24 09:00 03/01/24 08:32 Nephrocaps PO 03/28/24 08:59 Not Given QAM STEPHAN NPO Date Last Intake of Fluids: 03/01/24 Time Last Intake of Fluids: 08:00 Last Intake of Fluids Comment: sip Date Last Intake of Solids: 02/26/24 Past Medical History Medical History MINDI (obstructive sleep apnea) History of blood transfusion 2022 Pulmonary hypertension mild on 2020 echo Sleep apnea severe-not currently treated per pt Moderate aortic stenosis (MELCHOR 0.8 cm2, mean PG 20 mmHg) Diabetes mellitus, type 2 Ambulatory dysfunction walker-dependent Chronic pain Obesity Limb alert care status RUE AVF Osteoporosis Anxiety and depression RLS (restless legs syndrome) HLD (hyperlipidemia) HTN (hypertension) Psoriasis History of renal calculi History of DVT (deep vein thrombosis) RLE, 10+ years ago, post op AC therapy x 3-6 months after > d/c'd + no issues since History of pulmonary embolus (PE) 10+ years ago, post op End stage renal disease on dialysis 2/2 DM Diaylsis Tues/Thurs/Sat- [facility] Follows with Dr. Perez Exercise / Class Metabolic Activity II 4-5 Yardwork/Stairs/Walk up hill Past Family History Family History Mother Diabetes Sister Diabetes Other No family history of adverse response to anesthesia Past Surgical History Surgical History Hx of bilateral hip replacements H/O laparoscopy History of cystoscopy S/P arteriovenous (AV) fistula repair (~2020) right History of tooth extraction History of x 2 S/P arteriovenous (AV) fistula creation x 2 BL (non functioning on left)--left still in place not working History of colonoscopy H/O partial resection of colon (2012) For diverticulitis H/O inguinal hernia repair left S/P cholecystectomy Past Anesthesia History No Hx of Anesthesia Complications and No Family Hx of Anesthesia Complications History of PONV No Hx of PONV and No Hx of Motion Sickness Social History Smoking Status: Never smoker tobacco type: cigarettes Do You Dip or Chew Tobacco: No Hx Alcohol Use: No Hx Substance Use: No substance use type: does not use Review of Systems denies fever/cough/ colds/ chest pain/ SOB/ MINDI denies MINDI Physical Exam Vital Signs Last Vital Signs Temp 36 C L 03/01/24 11:15 Pulse 88 03/01/24 11:15 Resp 16 03/01/24 11:15 BP 130/57 L 03/01/24 11:15 Pulse Ox 94 03/01/24 11:15 O2 Del Method Room Air 03/01/24 11:15 ENMT Mouth: no TMJ abnormality and no dentition abnormality Thyromental Distance: > or= 3.5 Finger Breadths Mallampati Class: II Neck neck extension not limited Respiratory normal respiratory effort; no respiratory distress Auscultation: lungs clear to auscultation bilaterally Cardiovascular Rate/Rhythm: regular rate and regular rhythm Neurologic moves all extremities Psychiatric Orientation: alert and oriented x 3 Testing Laboratory Results 03/01/24 08:11 03/01/24 05:46 Hemoglobin A1c 5.2 % (4.5-5.6) 02/27/24 05:22 Urine Color Yellow 02/26/24 21:23 Urine Appearance Cloudy (Clear) A 02/26/24 21:23 Urine pH >= 9.0 (4.5-7.5) H 02/26/24 21: Ur Specific [place] 1.010 (1.000-1.030) 02/26/24 21:23 Urine Protein 2+ (Negative) H 02/26/24 21: Urine Glucose (UA) 1+ (Negative) H 02/26/24 21: Urine Ketones Negative (Negative) 02/26/24 21: Urine Nitrite Negative (Negative) 02/26/24 21: Ur Leukocyte Esterase Trace (Negative) H 02/26/24 21:23 Urine WBC (Auto) 0-5 /hpf (0-5) 02/26/24 21: Urine RBC (Auto) 6-10 /hpf (0-2) H 02/26/24 21: U Hyaline Cast (Auto) 3-5 /lpf (0-2) H 02/26/24 21: U Epithel Cells (Auto) >20 /hpf (0-2) H 02/26/24 21:23 Urine Bacteria (Auto) None Seen (None Seen) 02/26/24 21:23 Blood Type A Negative 02/26/24 23:47 Antibody Screen POSITIVE A 02/26/24 23:47 02/29/24 10:45 Urine Culture - Final Urine,Clean Catch More than three types of organisms present, all moderate counts mixed probable skin shelton. No further identifications or sensitivities to follow. 02/26/24 23:03 Aerobic Blood Culture - Preliminary Blood No growth in Aerobic bottle after 48 hours. Anaerobic Blood Culture - Final 02/26/24 22:54 Aerobic Blood Culture - Preliminary Blood No growth in Aerobic bottle after 48 hours. Anaerobic Blood Culture - Final 03/01/24 03/01/24 11:02 07:08 POC Glucose 94 99
--- NOTE | 2024-03-01 12:11 | Hospitalist Progress Note ---
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 Her had reported she has some black stools lately. Denies any obvious blood in the stools. Possible GI bleed Hemoglobin 7.3->5.7 Hemoglobin 10.6 in December 24, 2023 Hemoccult positive in the ER Questionable black stools Could not give Protonix because of allergy IV Pepcid 20 mg renal dosing Home ASA on hold Got 1 PRBC on 02/27/24 and another on 02/28/24. Had declined EGD initially but changed her mind To get EGD today UTI Currently on ceftriaxone Urine culture contaminated End-stage renal disease On hemodialysis Nephrology on board Type 2 diabetes Sliding scale Will monitor Hyperlipidemia On statin Depression On citalopram Squamous cell carcinoma of the right hand S/p surgery Follow-up. Deep DVT prophylaxis SCDs Disposition Telemetry Full code I spent a total of 40 minutes coordinating, documenting and providing care for this patient excluding time spent in performance of separately billed services Admission and Anticipated Discharge Date Admission Date: February 27, 2024 Subjective Patient seen and examined Denies any dizziness, cough, shortness of breath, palpitations, chest pain Denies nausea, vomiting, abdominal pain or diarrhea. No hematochezia/melena Reports dysuria resolved Physical Exam Constitutional: + well hydrated; no acute distress Eyes: PERRL, conjunctivae normal, anicteric sclerae ENMT: external ear and nose normal, oropharynx normal Respiratory: Normal resp effort Diminished breath sounds Cardiovascular: S1 S2 Gastrointestinal (Abdomen): normal bowel sounds, soft, nontender, no hepatosplenomegaly Neurologic: PERRL, EOMI, accommodation nl, no face palsy, no dysarthria Psychiatric: A+Ox3, euthymic affect Results & Data Results & Data Vital Signs (Past 12 Hours) Vital Signs Temp Pulse Pulse Resp BP Pulse Ox O2 Del Method 03/01/24 11:15 36 C L 88 16 130/57 L 94 Room Air 03/01/24 10:45 94 H 18 123/58 L 96 Room Air 03/01/24 07:09 36.5 C 89 18 116/60 96 Room Air 03/01/24 03:42 36.7 C 86 17 113/66 96 Room Air Laboratory Results Abnormal lab results 02/26/24 02/29/24 03/01/24 Range/Units 23:47 14:46 05:46 RBC 2.59 L (4.20-5.40) M/uL Hgb 9.4 L 7.7 L (12.0-16.0) g/dl Hct 30.1 L 24.2 L (37.0-47.0) % MCHC 31.8 L (32.0-36.0) g/dL RDW Std Deviation 51.8 H (36.4-46.3) fL RDW Coeff of Erum 15.1 H (11.5-14.5) % MPV 8.9 L (9.4-12.4) fL Sodium 134 L (136-145) mmol/L Chloride 97 L (98-107) mmol/L BUN 38 H (6-23) mg/dl Creatinine 4.04 H D (0.6-1.2) mg/dl BUN/Creatinine Ratio 9.4 L (10-20) Calcium 8.0 L (8.6-10.3) mg/dl Crossmatch See Detail 03/01/24 Range/Units 08:11 RBC 2.81 L (4.20-5.40) M/uL Hgb 8.3 L (12.0-16.0) g/dl Hct 26.6 L (37.0-47.0) % MCHC 31.2 L (32.0-36.0) g/dL RDW Std Deviation 54.0 H (36.4-46.3) fL RDW Coeff of Erum 15.6 H (11.5-14.5) % MPV 8.7 L (9.4-12.4) fL Sodium (136-145) mmol/L Chloride (98-107) mmol/L BUN (6-23) mg/dl Creatinine (0.6-1.2) mg/dl BUN/Creatinine Ratio (10-20) Calcium (8.6-10.3) mg/dl Crossmatch
--- NOTE | 2024-03-01 12:13 | GI REPORT ---
Patient Name: Meka Hess Procedure Date: 03/01/2024 11:53 AM Date of : 1955 Admit Type: Inpatient Age: 69 Gender: Female Attending MD: Jose Cruz DO, Procedure: Upper GI endoscopy Providers: Jose Cruz DO Referring MD: Dena Renae MD Indications: Iron deficiency anemia secondary to chronic blood loss, Heme positive stool Medicines: Monitored Anesthesia Care Complications: No immediate complications. Estimated Blood Loss: Estimated blood loss: none. Procedure: Pre-Anesthesia Assessment: - Prior to the procedure, a History and Physical was performed, and patient medications and allergies were reviewed. The patient's tolerance of previous anesthesia was also reviewed. The risks and benefits of the procedure and the sedation options and risks were discussed with the patient. All questions were answered, and informed consent was obtained. Prior Anticoagulants: The patient has taken no anticoagulant or antiplatelet agents except for aspirin. ASA Grade Assessment: III - A patient with severe systemic disease. After reviewing the risks and benefits, the patient was deemed in satisfactory condition to undergo the procedure. After obtaining informed consent, the endoscope was passed under direct vision. Throughout the procedure, the patient's blood pressure, pulse, and oxygen saturations were monitored continuously. The Endoscope was introduced through the mouth, and advanced to the third part of duodenum. The upper GI endoscopy was accomplished without difficulty. The patient tolerated the procedure well. Findings: The esophagus was normal. A small hiatal hernia was present. A 10 mm non-bleeding diverticulum was found in the cardia. Localized mild inflammation characterized by erythema was found in the gastric antrum. The examined duodenum was normal. Impression: - Normal esophagus. - Small hiatal hernia. - Gastric diverticulum. - Gastritis. - Normal examined duodenum. - No specimens collected. Recommendation: - [facility]. - Resume previous diet. - Continue present medications. Jose Cruz DO 03/01/2024 12:13:10 PM This report has been signed electronically. Note Initiated On: 03/01/2024 11:53 AM Number of Addenda: 0 I attest to the content of the Intraoperative Record and orders documented therein, exceptions below {[id number]}
--- NOTE | 2024-03-01 12:23 | Anesthesiology Progress Note ---
Date of Service March 01, 2024 Anesthesia Post Procedure Vital Signs Vital Signs: Temp Pulse Pulse Pulse Resp BP Pulse Ox 03/01/24 12:10 36 C L 96 H 18 105/52 L 94 03/01/24 11:15 36 C L 88 16 130/57 L 94 03/01/24 10:45 94 H 18 123/58 L 96 03/01/24 07:09 36.5 C 89 18 116/60 96 03/01/24 03:42 36.7 C 86 17 113/66 96 02/29/24 23:58 36.8 C 82 16 102/58 L 96 02/29/24 23:00 88 02/29/24 19:45 36.4 C L 81 16 125/71 99 02/29/24 15:28 36.6 C 89 21 125/65 95 O2 Del Method 03/01/24 12:10 Room Air 03/01/24 11:15 Room Air 03/01/24 10:45 Room Air 03/01/24 07:09 Room Air 03/01/24 03:42 Room Air 02/29/24 23:58 Room Air 02/29/24 23:00 02/29/24 19:45 Room Air 02/29/24 15:28 Room Air Pain Intensity Right Substernal: Pain Intensity: 7 Transfer of Care Handoff Completed per policy Notes Mental Status: alert / awake / arousable and participated in evaluation Patient Amnestic to Procedure: Yes Nausea / Vomiting: adequately controlled Pain: adequately controlled Airway Patency, RR, SpO2: stable & adequate BP & HR: stable & adequate Hydration State: stable & adequate Anesthetic Complications: no major complications apparent and Pt Satisfied with anesthetic care
[2024-03-01] MEDS: LIDOCAINE 2% 2 ML VIAL/AMP(20MG/ML) INFIL ONE (13:43)
[2024-03-01] MEDS: PROPOFOL IV EMULSION 10 MG/ML 20 ML VIAL IV ONE (13:44)
[2024-03-02 06:08] LABS: Hematocrit (blood only) 25.7 % (37.0-47.0); Hemoglobin 7.9 g/dl (12.0-16.0); Mean Corpuscular Hgb Conc 30.7 g/dL (32.0-36.0); Mean Corpuscular Volume 94.5 fL (80.0-100.0); Mean Platelet Volume 9.3 fL (9.4-12.4); Platelet Count 293 K/uL (130-400); RDW Coefficient of Variation 15.5 % (11.5-14.5); RDW Standard Deviation 54.1 fL (36.4-46.3); Red Blood Count 2.72 M/uL (4.20-5.40); White Blood Count 7.29 K/ul (4.8-10.8)
[2024-03-02 06:45] LABS: BUN Creatinine Ratio 10.4 (10-20); Creatinine Clr Calc Pharmacy 9.7 ml/min; Est GFR (African American) 8.4 ml/min; Est GFR (Non-African American) 7.3 ml/min
[2024-03-02] MEDS ORDERED: SODIUM CHLORIDE 0.9% 1,000 ML IV PRN (07:00)
--- NOTE | 2024-03-02 10:04 | Dialysis Progress Note ---
Date of Service March 02, 2024 Assessment & Plan Admission and Anticipated Discharge Date Admission Date: February 27, 2024 Subjective Assessment & Plan (1) Acute GI bleeding: Plan: per primary service and GI; on RA and not volume overloaded currently hgb 8+ now after PRBC. had EGD. will give SANJEEV with Dialysis Non bleeding Diverticulum noted (2) End stage renal disease on dialysis: Plan: on TRSat HD via AVF Today will do without heparin. Orders written. No e/o fluid overload and no major lytes issues. Subjective Seen during Dialysis. AVF fine. BP is good. So far no issues with Dialysis. had EGD yesterday. Review of Systems Review of Systems: All systems reviewed & are unremarkable except as noted in Subjective Physical Exam Constitutional: well developed (sitting in reclining chair on RA), well nourished and cooperative; no acute distress Eyes: EOM intact bilaterally ENMT: Ears: no external ear abnormality Nose: no external nose abnormality Mouth: + dry oral mucous membranes Neck: no nuchal rigidity Respiratory: normal respiratory effort Auscultation: + diminished lung sounds Cardiovascular: Rate/Rhythm: regular rhythm and + tachycardic (in 90s) Extremities: + AV fistula (RUE+ t/b) Gastrointestinal (Abdomen): Inspection/Auscultation: normal bowel sounds Percussion/Palpation: abdomen soft; abdomen nontender Musculoskeletal: Extremities: strength 5/5 throughout Skin: no rashes, warm and dry Neurologic: Moves all extremities, fluent speech, no tremor Results & Data Vital Signs (Past 12 Hours) Vital Signs Temp Pulse Pulse Resp BP Pulse Ox O2 Del Method 03/02/24 07:14 36.6 C 86 17 116/57 L 92 Room Air 03/02/24 03:21 36.8 C 88 18 116/53 L 94 Room Air 03/02/24 02:00 03/01/24 23:14 36.6 C 88 18 98/49 L 95 Room Air 03/01/24 23:00 94 H O2 Del Method 03/02/24 07:14 03/02/24 03:21 03/02/24 02:00 Room Air 03/01/24 23:14 03/01/24 23:00
[2024-03-02] MEDS: EPOETIN ALFA 20,000 UNITS/ML VIAL IV ONE (12:04)
--- NOTE | 2024-03-02 13:41 | Discharge Summary ---
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 Denies any hematuria. States her noticed she has some black stools lately. Denies any obvious blood in the stools. No abdominal pain. No chest pain or shortness of breath. No cough. No fevers.Last night was having chills. Appetite is okay. No headaches. No runny nose or sore throat. Currently resting comfortably and hemodynamically stable. Past medical history. As mentioned above. Past surgical history. Thrombectomy of axillary artery. Arthrocentesis. Breast biopsy left side. . Colonoscopy. Cystoscopy. Cystoscopy with stone removal. EGD with biopsy. Reconstruction of the hip socket. Removal of the drug implant. Inguinal hernia repair. Revision of the previous hip surgery. Urological surgery with ureteral stent placement. Social history. . No smoking. No alcohol use. No drug use. Family history. Mother had rheumatoid arthritis. Hypertension. Father had prostate and lung cancer. Sister had breast cancer. Admission Exam Per Admitting Provider General- Not in distress Head- atraumatic Eyes- PERRL, ENT- oropharynx clear Neck- supple, no JVD. Lungs- clear to auscultation no wheezing or crackles. Heart- regular rhythm; no murmur, no gallop. Abdomen- normal bowel sounds, soft, nontender, No distension. Extremities- no pretibial edema, no erythema seen. Neuro- alert, oriented PERRL, EOMI; no facial palsy; no dysarthria; moves extremities. Principal Diagnosis Acute blood loss anemia Acute on chronic anemia Urinary tract infection Gastritis Discharge Exam Constitutional + well hydrated; no acute distress Eyes PERRL, conjunctivae normal, anicteric sclerae ENMT external ear and nose normal, oropharynx normal Respiratory Normal resp effort Diminished breath sounds Cardiovascular S1 S2 Gastrointestinal (Abdomen) normal bowel sounds, soft, nontender, no hepatosplenomegaly Neurologic PERRL, EOMI, accommodation nl, no face palsy, no dysarthria Psychiatric A+Ox3, euthymic affect Discharge Data Allergies Allergy/AdvReac Type Severity Reaction Status Date / Time Sulfa (Sulfonamide Allergy Severe Face/lips/tongue Verified 03/01/24 11:18 Antibiotics) edema nitrofurantoin Allergy Intermediate Hives Verified 03/01/24 11:18 cefazolin [From Ancef] Allergy Unknown Unknown Verified 03/01/24 11:18 pantoprazole [From Protonix] Allergy Unknown Unknown Verified 03/01/24 11:18 methylprednisolone AdvReac Intermediate Sweating, Verified 03/01/24 11:18 [From Medrol] heart racing Consultations 02/26/24 23:23 ED Decision to Admit Stat 02/27/24 08:00 Consult Gastroenterology Routine Consult Nephrology Routine Procedures Performed Operation Date: 03/01/24 16:30 Actual Procedures p Esophagogastroduodenoscopy - Jose Benavides Case, DO Ordered Studies 02/27/24 10:53 CT Abdomen and Pelvis [CT abd pelvis wo con] Urgent Hospital Course (1) Acute GI [age]-year-old female with past medical history significant for type 2 diabetes, end-stage renal disease on hemodialysis, hyperlipidemia, anemia in end-stage renal disease, psoriasis, 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 Her had reported she has some black stools lately. Denies any obvious blood in the stools. Possible GI bleed Hemoglobin 7.3->5.7 Hemoglobin 10.6 in December 24, 2023 Hemoccult positive in the ER Questionable black stools Was noted to have allergy to pantoprazole Has been tolerating lansoprazole inpatient Got 1 PRBC on 02/27/24 and another on 02/28/24. Had declined EGD initially but changed her mind EGD on 03/01/24 noted Normal esophagus, small hiatal hernia, gastric diverticulum, gastritis, normal examined duodenum. Patient discharged on lansoprazole 30 mg twice daily. To continue to hold home aspirin 81 mg and to follow-up with her family doctor. UTI Was treated with IV ceftriaxone while inpatient. Got 1 dose of cefdinir after HD today to complete treatment prior to dc Urine culture contaminated Urinary symptoms resolved End-stage renal disease On hemodialysis Type 2 diabetes Hyperlipidemia On statin Depression On citalopram Squamous cell carcinoma of the right hand S/p surgery Total Time Total Time Spent Total Time Spent (In Minutes): 40 Total Time Includes: Examination of the Patient, Discharge Planning and Medication Reconciliation Discharge Plan Discharge Items Patient Disposition: Home - Self-Care Reason For Visit: Dysuria Discharge Diagnosis: Urinary tract infection Acute on chronic anemia Possible GI bleed Activity: Resume your previous activity Non-emergency contact: Primary Care Provider, [employer] Machine Operator and [employer] Operator Call non-emergency contact if: you have any medication questions and your symptoms worsen Follow-up/Referrals: Willie Epstein MD [Primary Care Provider] - (Date & Time 03/08/2024 9:00 AM Provider Willie Epstein MD Department Family Practice [facility] ) Diet: Dialysis Renal Addtl Attending Provider Instructions: Mrs Hess You came to the hospital for urinary symptoms. You were found to have low blood count and was managed for the above listed diagnoses. You had upper Gastroendoscopy which showed gastritis. You are being discharged on Lansoprazole which you have been taking in the hospital. Please do not take your aspirin 81mg for now until follow up with your Doctor. Please ensure follow up with your Family Doctor and Gastroenterology. It was a pleasure taking care of you. Pending Studies at Discharge: No Stand-Alone Forms: My [facility] [employer], Smoking Cessation Medications and DC Order Prescriptions: New lansoprazole [Prevacid SoluTab] 30 mg Tablet,Disintegrat, Delay Rel 30 mg PO BID Qty: 60 0RF Continued gabapentin 100 mg capsule 100 mg PO DIRECTED Rx Instructions: 100mg daily plus additional dose 100 mg after dialysis days oxycodone 15 mg tablet 15 mg PO Q8 PRN (Reason: Pain) citalopram 20 mg tablet 20 mg PO QAM albuterol sulfate 90 mcg/actuation HFA aerosol inhaler 2 puff INHALATION Q6H PRN (Reason: Wheezing) ropinirole 2 mg tablet 2 mg PO QPM Rx Instructions: take 1-3 hours before bed simvastatin 20 mg tablet 20 mg PO HS Anais-Federico 0.8 mg tablet 1 tab PO QAM betamethasone dipropionate 0.05 % Ointment 1 applic TOPICAL BID PRN (Reason: PSORIASIS/ITCHING) cinacalcet 90 mg tablet 90 mg PO QAM lanthanum 750 mg tablet,chewable 750 mg PO TID Trulicity 0.75 mg/0.5 mL pen injector 0.75 mg SUBCUT WK Rx Instructions: mondays Discontinued aspirin 81 mg Tablet,Chewable 81 mg PO QAM Discharge Orders: Discharge Order (Routine); Ordered 03/02/24 Ordered By: Dena Renae Admission Data Admit Date/Time: 02/27/24 01:16 Attending Provider: Dena Renae I. Admit Provider: Modesto Dillon Primary Care Provider: Willie Epstein Other Providers: Modesto Dillon; Danette Perez; Jose Cruz Other Interventions: Discharge Summary Assessment (RN) Last Done: 03/02/24 14:52
[2024-03-02] MEDS: CEFDINIR 300 MG CAP PO ONE (14:44)
== END 2024-03-02 17:57 | disposition home or self-care (01) | DRG 377 ==
LOC: ED 19:28 → 2E 02-27 01:16

== ENCOUNTER 2024-10-30 11:04 | Inpatient (IN) ==
--- OUTSIDE RECORDS SUMMARY | 2024-10-30 11:10 | External Medical Summary | Summary of Care ---
Author Name Unknown Organization [facility] Address [address] [place] [address] Phone [phone] Care Team Providers Care Children'S Tutor Name Role Phone Willie Pizarro MD Primary Care Provider + Reason for Visit * Reason Comments eRx-Medication Refill Encounter Details Date Type Department Care Team (Late st Contact Info) Description 10/29/2024 Refill Family Practice [facility] [address] [place] [place] [address] Willie Pizarro MD [address] [place] [address] Dyslipidemia, goal LDL below 70 Allergies Active Allergy Reactions Criticality Noted Date Comments Cefazolin Unknown 11/15/2023 Other Reaction(s): CAN'T REMEMBER Methylprednisolone Other (Please comment) 07/28/2017 Side effects c/w med (sweating, heart racing etc) Nitrofurantoin Hives High 03/01/2024 Nitrofurantoin Monohyd Macro Hives 04/04/2014 Pantoprazole Unknown 11/15/2023 Other Reaction(s): CAN'T REMEMBER Sulfa Antibiotics Edema face/lips/tongue High 09/02/2008 documented as of this encounter (statuses as of 10/29/2024) Medications INSULIN SYRINGE-NEEDLE U-100 30G X 1/2" 1 ML MISCIndications :DM type 2, goal A1c below 7 Use as directed 1 Box of 100 11 10/04/20 08 Active RENAL MULTIVITAMIN/ZI NC PO TABS None Entered Active ONETOUCH ULTRASOFT LANCETS MISCIndications :Type 2 diabetes mellitus with hemoglobin A1c goal of less than 8.0% (HCC) Use as directed 2 times a day. 1 Box Dosing Unit 11 01/17/20 17 Active cinacalcet (SENSIPAR) 30 MG Tablet Take 1 Tab by mouth daily with dinner. 90 Tab 3 11/07/19 18 Active Blood Glucose Monitoring Suppl (Paxera ULTRA 2) w/Device KIT Use to check blood sugar 2 times a day; E11.9. 1 Kit 10/22/19 20 Active Glucose Blood (DIYTOUCH ULTRA BLUE) STRP Use to check blood sugar 2 times a day; E11.9. 200 Box Dosing Unit 3 10/22/19 20 Active Albuterol Sulfate HFA 108 (90 Base) MCG/ACT Inhalation Aerosol SolutionIndicat ions:Bronchitis , complicated TAKE 2 PUFFS BY MOUTH EVERY 6 HOURS NEEDED FOR WHEEZE 18 g 04/17/20 23 Active Betamethasone Dipropionate 0.05 % External OintmentIndicat ions:Plaque psoriasis APPLY 2X DAILY (OR MORE IF ITCHY INSTEAD OF SCRATCHING) TO AFFECTED PSORIASIS SPOTS ON ARMS/LEGS UNTIL RESOLVED 50 g 1 02/02/20 24 Active Aspirin 81 MG Oral Tablet Chewable Take 1 Tablet by mouth in the morning. ON HOLD OF 03/02/24. Active Lansoprazole 30 MG Oral Capsule Delayed Release (Prevacid) Take 1 Capsule by mouth in the morning and 1 Capsule in the evening. 180 Capsule 2 04/01/20 24 Active Additional Information Patient not taking.Reported on 09/20/2024 Gabapentin 100 MG Oral Capsule (Neurontin)Ruba cations:Spondyl olisthesis of lumbosacral region TAKE 1 CAPSULE BY MOUTH DAILY + 1 DOSE EXTRA AFTER DIALYSIS EVERY 3 DAYS. 135 Capsule 2 06/30/20 24 Active rOPINIRole HCl 2 MG Oral Tablet (Requip) TAKE 1 TABLET BY MOUTH AT BEDTIME. 1-3 HOURS BEFORE BEDTIME WITH FOOD FOR RESTLESS LEGS 90 Tablet 3 06/30/20 24 Active Trulicity 0.75 MG/0.5ML Subcutaneous Solution Pen-injector (Dulaglutide)In dications:Type 2 diabetes mellitus with hemoglobin A1c goal of less than 8.0% (HCC) INJECT UNDER THE SKIN 0.75 MG ONCE A WEEK . 2 mL 2 07/26/20 24 Active Citalopram Hydrobromide 20 MG Oral Tablet (CeleXA) TAKE 1 TABLET BY MOUTH EVERY DAY 90 Tablet 1 07/31/20 24 Active Triamcinolone Acetonide 0.1 % External Ointment (Aristocort)Ind ications:Invers e psoriasis APPLY 2X DAILY DURING WEEK (OFF ON WEEKENDS) TO PSORIASIS UNDER BREASTS UNTIL RESOLVED, THEN WHEN FLARING 454 g 09/06/20 24 Active Buprenorphine 10 MCG/HR Transdermal Patch Weekly (Butrans) Place 1 Patch over 7 days topically on the skin once a week. 4 Patch 3 10/22/19 25 Active Simvastatin 20 MG Oral Tablet (Zocor)Indicati ons:Dyslipidemi a, goal LDL below 70 TAKE ONE TABLET BY MOUTH ONCE A DAY AT BEDTIME 90 Tablet 10/29/19 25 Active Molnupiravir 200 MG Oral Capsule Take 4 Capsules by mouth in the morning and 4 Capsules before bedtime. 40 Capsule 10/29/19 25 Active Simvastatin 20 MG Oral Tablet (Zocor)Indicati ons:Dyslipidemi a, goal LDL below 70 TAKE ONE TABLET BY MOUTH ONCE A DAY AT BEDTIME 90 Tablet 1 04/30/20 24 025 Discontinued documented as of this encounter (statuses as of 10/29/2024) Active Problems Problem Noted Date Diagnosed Date Nonrheumatic aortic valve stenosis 09/20/2024 Nonrheumatic mitral valve regurgitation 09/20/20 PVD (peripheral vascular disease) 09/20/2024 Nonrheumatic mitral valve stenosis 09/20/2024 Opiate dependence, continuous 08/03/2024 SCC (squamous cell carcinoma), hand, right 01/20 Hx of nonmelanoma skin cancer 01/09/2024 Overview (01/09/2024): squamous cell carcinoma (R dorsal hand 01/10) Age-related osteoporosis wit hout current pathological fracture 12/19/2022 Overview (01/01/2024): 01/09 DEXA. 01/10 Rheum-- Osteoporosis treatment is contraindicated at this time with severe renal disease Psoriasis 10/09/2022 Hypertensive kidney disease with end-stage renal disease 12/01/2019 Well adult exam 08/04/2019 Overview (03/04/2024): 03/12 EGD [facility]-normal esoph, gastritis. Small hiatal hernia. Gastric 10mm diverticula 01/09 DEXA +osteoporosis. NEED discuss. 11/10 colon +tubular adenomas. 04/09 mult compression fractures. 05/2018 many polyps Therapeutic opioid induced constipation 08/04/20 ESRD on dialysis 09/08/2016 Overview (02/26/2021): 03/05 HCP forms given-wants . NEEDS further Living will 2017 consider transplant needs 20lb -[facility]? T,R, S. Since January 2013. Spondylolisthesis of lumbosacral region 02/04/20 13 Overview (02/03/2013): L5-S1 level with grade 1 anterolisthesis of L4 on L5 and grade 1 retrolisthesis of L5 on S1 Anemia in ESRD (end-stage renal disease) 013 MEDICATION USE AGREEMENT 11/12/2012 Overview (11/16/2012): For pain medications for chronic hip pain, [...] pulmonary embolism 08/28/2012 History of osteomyelitis 08/13/2012 Overview (03/21/2017): pelvis Hypertensive kidney disease with end-stage renal disease 09/06/2009 Type 2 diabetes mellitus wit h hemoglobin A1c goal of less than 8.0% 08/17/2009 Overview (02/13/2016): Per Diabetes Taxonomy. ICD-10 update of inactive term Dyslipidemia, goal LDL below 70 Vitamin D deficiency H/O bilateral hip replacements Family history of breast cancer Overview (11/22/2016): sister Type 2 diabetes mellitus wit h ESRD (end-stage renal disease) Long-term insulin use documented as of this encounter (statuses as of 10/29/2024) Resolved Problems Problem Noted Date Diagnosed Date Resolved Date Thoracic compression fracture 04/09/2021 04/13/2021 Overview (04/09/2021): Mult levels 04/09 CT [facility] + lumbar Respiratory symptoms 01/08/2020 021 Fever of unknown origin (FUO) 01/07/2020 02/26/2021 Respiratory infection 01/07/20202020 Cellulitis 06/28/2016 09/08/2016 Abnormal vaginal bleeding 02/12/2016 Cellulitis 02/07/2016 09/08/2016 UTI (urinary tract infection), bacterial 04/19/2014 05/02/2014 Hypotension 04/15/2014 05/02/2014 Compression of lumbar vertebra 02/03/2013 06/07/2021 Overview (04/09/2021): Mult levels noted 04/[address] [facility] [address] also thoracic CKD (chronic kidney disease), stage V 12/30/2012 09/08/2016 Iron deficiency anemia 08/25/201209/08 Overview (07/21/2017): ICD-10 update of inactive term A-V fistula 08/03/2012 08/17/2019 Overview (08/17/2019): On dialysis Kidney disease, chronic, sta ge IV (GFR 15-29 ml/min) 05/28/2012 12/30/2012 Hip joint replacement status 05/07/2012 04/23/2019 History of drug abuse 01/27/20122011 Overview (05/11/2012): Patient w/ h/o taking more of her [...] 3 c hronic kidney disease 12/16/2011 05/28/2012 Overview (02/27/2016): ICD-10 update of inactive term Proteinuria 12/16/2011 09/08/2016 Spasm of muscle 09/02/2010 02/07/2016 Severe obesity with body mas s index (BMI) of 35.0 to 39.9 with serious comorbidity 01/15/2010 Overview (08/05/2018): Per Obesity Taxonomy ICD-10 update of inactive diagnosis HTN, goal below 140/90 08/25/200909/06 Overview (08/25/2009): Modified 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 detention current use of ant icoagulant therapy 04/19/2009 10/16/2010 Overview (07/21/2017): ICD-10 update of inactive term Other pulmonary embolism and infarction 09/02/2008 10/16/2010 Osteoporosis 04/17/2007 02/07/2016 Benign neoplasm of colon 03/23/2007 Overview (04/03/2007): hyperplastic polyp--repeat 3 years ADVANCE DIRECTIVE INFORMATION 03/19/2005 04/23/2019 Overview (03/19/2005): pt doing living will now. Morbid obesity, BMI not known 02/28/2004 01/15/2010 Overview (01/15/2010): Per Obesity Taxonomy Incisional hernia 09/08/2003 10/16/2010 Reflux esophagitis 05/26/2003 6 Type 2 diabetes mellitus wit h hemoglobin A1c goal of less than 7.0% 08/17/2009 Overview (02/13/2016): Per Diabetes Taxonomy. ICD-10 update of inactive term BENIGN HYPERTENSION 08/25/20 09 Overview (08/25/2009): Modified 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 Menopause 02/07/2016 Tachycardia 02/07/2016 Pulmonary embolus 10/16/2010 Other psoriasis and similar disorders 02/07/2016 Hemorrhoids 02/07/2016 Renal function test abnormal 07/20/2014 Overview (10/22/2010): Prior ARF secondary to complications from incarcerated hernia and bowel obstruction. Also prior h/o multiple kidney stones - is s/p B/L stents Sees Dr. Angel in [place] for Urology Osteoarthritis of hip 2018 documented as of this encounter (statuses as of 10/29/2024) Immunizations Name Administration Dates Next Due COVID-19 mRNA, LNP-s, No Pre serve, 2-Dose Series (Pfizer) 09/11/2021,01/02/2021,12/12/2020 COVID-19, mRNA, LNP-s, PF, B ooster, 100mcg/0.5mg (Moderna) 02/26/2022 Covid-19, Mrna, Lnp-s, Pf, B ivalent, 30 Mcg, IM, 12 yrs and above (Pfizer) 07/01/2022 H1N1 2009 Influenza, IM 10/17/2009 HEPATITIS B VACCINE, RECOMB, 20 MCG/ML, ADULT (HEPLISAV-B) 05/28/2022,04/04/2022,02/26/2022,01/18 Hepatitis B, 0-19 yrs 03/07/2016, 016,11/02/2015,08/21,05/11/2013,04/13/2013,03/16/20 13 Hepatitis B, 20+ yrs 03/07/2016,12/09/19 16,11/02/2015,08/21,05/11/2013,04/13/2013,03/16/20 13 Pneumococcal Conjugate Vacc, 13 Valent (Prevnar) 12/31/2017,12/10/2016 Pneumococcal Polysaccharide PPV23 (Pneumovax) 08/20/2019,04/15/2006 Seasonal Influenza Vac., MDV , IM, 0.5 mL (Fluzone) 08/20/2015,07/20/2014,07/06/2013,03/2012,07/10/2011,07/23/2010,07/27/20,07/29/2008,08/26/2007,08/14/2006,1 11/04/2004,10/31/2004,08/17/2003,09/03,09/14/2001,10/01/2000 10/01/2001 Seasonal Influenza, High Dos e, Trivalent, PF, IM (Fluzone HD) 08/03/2024,07/16/2017 Seasonal Influenza, PF, 6 M & above, IM , (FluLaval or Fluzone) 08/03/2018 Seasonal Influenza, QUAD, wi th Preserv, 6 mons & Above, 0.5 mL, IM 07/09/2022,07/24/2021 Seasonal Influenza, Quadriva lent Hd, 65+ Yrs 08/03/2021 Seasonal Influenza, Recombin ant, RIV4, PF, (Flublock) 07/29/2023 Seasonal Influenza, Recombin ant, Trivalent, PF (Flublock) 07/21/2019,08/05/2016 TD - Tetanus/Diptheria (ADULT) 11/06/1998 TDAP (age 10 and older)(Boostrix) 12/29/2018 TDAP, Age 7 and older, IM (Adacel) 04/19/2009 documented as of this encounter Social History Tobacco Use Types Packs/Day Years Used Date Smoking Tobacco: Never Smokeless Tobacco: Never Comments:smoked less than a ppd for 1 year Alcohol Use Standard Drinks/Week Comments No 0 (1 standard drink = 0.6 oz pur e alcohol) PHQ-2 Answer Date Recorded PHQ Adult Total Score 2 08/03/2024 Hunger Vital Sign Answer Date Recorded Within the past 12 months, y ou worried that your food would run out before you got the money to buy more. Never true 04/30/20 23 Within the past 12 months, t he food you bought just didn't last and you didn't have money to get more. 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 Answer Date of Assessment Author No 01/07/2020 6:50 PM EDT Moriah Coughlin RN * Are you blind or do you have serious difficulty seeing, even when wearing glasses? Answer Date of Assessment Author No 01/07/2020 6:50 PM EDT Moriah Coughlin RN * Do you have serious difficulty walking or climbing stairs? (5 years old or older) Answer Date of Assessment Author No 01/07/2020 6:50 PM Moriah Harris RN * Do you have difficulty dressing or bathing? (5 years old or older) Answer Date of Assessment Author No 01/07/2020 6:50 PM EDT Moriah Coughlin RN * Because of a physical, mental, or emotional condition, do you have difficulty doing errands alone such as visiting a doctors office or shopping? (15 years old or older) Answer Date of Assessment Author No 01/07/2020 6:50 PM Moriah Harris RN documented as of this encounter Mental Status * Because of a physical, mental, or emotional condition, do you have serious difficulty concentrating, remembering, or making decisions? (5 years old or older) Answer Entry Date Author No 01/07/2020 6:50 PM Moriah Harris RN documented in this encounter Miscellaneous Notes * Telephone Encounter - Nichelle Abreu CRNP - 10/29/2024 2:06 PM EST Inboxologist Covering Provider Needs lipid panel and it has already been ordered All replies or additional communication must be routed to the PCP * Telephone Encounter - Nichelle Abreu CRNP - 10/29/2024 2:06 PM EST Signed Prescriptions: Disp Refills Simvastatin 20 MG Oral Tablet (Zocor) 90 Tab*0 Sig: TAKE ONE TABLET BY MOUTH ONCE A DAY AT BEDTIME Authorizing Provider: WILLIE PIZARRO User: NICHELLE ABREU * Telephone Encounter - Margaret Barksdale RP - 10/29/2024 11:14 AM ESTPending Prescriptions: Disp Refills Simvastatin 20 MG Oral Tablet (Zocor) 90 Tab* Sig: TAKE ONE TABLET BY MOUTH ONCE A DAY AT BEDTIME * Telephone Encounter - Margaret Barksdale [facility] - 10/29/2024 11:13 AM EST Unable to authorize medication refills for pended medication(s) at this time. Part of the protocol criteria used for refill authorization was not satisfied. Patient needs lipid panel on file within past year. Last lipid panel was 2019. Recent labs completed and lipid panel not drawn with other routine labs. Please approve if appropriate. Thank you, Margaret Barksdale, PharmD Clinical Pharmacist [facility] ([facility]) [phone] 10/29/2024, 11:14 AM documented in this encounter Plan of Treatment Upcoming Encounters Date Type Department Care Team (Late st Contact Info) Description 12/15/2024 11:00 AM EST Office Visit Pharmacy, [facility] [address] [place] [address] [address] [facility] [place] [place] [address] 03/22/2025 1:40 PM EDT Office Visit Family Practice [facility] [address] [place] [address] [address] Willie Pizarro MD [address] [place] [address] 05/23/2025 3:00 PM EDT Office Visit Dermatology [address] [place] [address] Coco Ivan PA-C [address] [place] [address] [place] [address] 06/13/2025 11:00 AM EDT Cardiac Studies Cardiac Studies, [facility] [address] [place] [address] [address] 07/04/2025 4:00 PM EDT Office Visit Cardiology, [facility] [address] [place] [address] [address] Bandar Avila MD [address] [place] [address] Scheduled Procedures Name Priority Associated Diagnoses Date/Ti me COLONOSCOPY FLEXIBLE PROXIMAL DIAGNOSTIC Recall History of colon polyps Health Maintenance Due Date Last Done Comments Cologuard 1999 Fecal Occult Blood Test 1999 Sigmoidoscopy 1999 Zoster Vaccines (1 of 2) 02/02/2004 Adult Wellness Visit 02/02/2020 Diabetic Eye Exam 11/15/2023 11/15/2022, (Done elsewhere), 05/10/2020, Additional history exists *BISPHONATE OR OTHER ACCEPTABLE MEDICATION NEEDED FOR OSTEOPOROSIS (REFER TO SMARTSET #1146) 04/04/2024 COVID-19 Vaccine ( season) 2024 07/01/2022, 02/26/2022, 09/11/2021, Additional history exists Colonoscopy 11/09/2024 11/09/2021, 05/20, 02/07/2012, Additional history exists Colorectal Cancer Screening 11/09/2024 HbA1c 02/03/2025 08/05/2024, 03/20, 06/07/2021, Additional history exists Mammogram 05/07/2025 05/07/2024, 03/20, 03/29/2022, Additional history exists Depression Screening 08/03/2025 08/03/2024, 03/21/2017 (Declined) Diabetic Foot Exam 08/03/2025 08/03/2024, 0 01/26/2021, 01/14/2019, Additional history exists Lipid Panel 05/23/2027 05/23/2022, 02/17, 03/23/2018, Additional history exists DTap/Tdap Vaccines (3 - Td or Tdap) 12/29/2028 12/29/2018, 04/19/2009, 11/06/1998 Pneumococcal Vaccine: 50+ Years Completed 08/20/2019, 12/31/2017, 12/10/2016, Additional history exists RETIRED - COLONOSCOPY-EVERY 2 YRS AGES 18-100 Discontinued 11/09/2021, 06/03/2018, 02/07/2012, Additional history exists Hepatitis B Vaccine Completed 06/01/2024, 05/28/2022, 04/04/2022, Additional history exists Influenza Vaccine (FLU shot) Completed 08/03/2024, 07/29/2023, 07/09/2022, Additional history exists HPV (Gardasil) Vaccine Aged Out No lo nger eligible based on patient's age to complete this topic MENINGOCOCCAL (MENACTRA/MENVEO) Aged Out No longer eligible based on patient's age to complete this topic documented as of this encounter Medical Devices Implanted Type Area Jinriksha Driver Device Identifier Shelf Expiration Date Model / Serial / Lot Cement Antibiotic Bone - [id number] Implanted:Qty: 3 on 04/28/2012 at [facility] [place] Hip VERONICA : [employer] 11/19/2013 6197-9-010 / / [id number] Prostalac Acetabular Cup Implanted:Qty: 1 on 04/28/2012 at [facility] Right: Hip SUBHA & SUBHA DEPUY 05/19/2017 [id number] / / [id number] Prostalac Hip Stem Size 105mm Std Offset Implanted:Qty: 1 on 04/28/2012 at [facility] Right: Hip SUBHA & SUBHA DEPUY 10/19/2021 1541-01-000 / / [id number] Description:Prostalac Hip St em Size 105mm Offset (Depuy) Ball Artic Wiliam Brn 32 Plus5 - [id number] Implanted:Qty: 1 on 04/28/2012 at [facility] Right: Hip JNJ : DE[employer] OR[employer] 10/19/2016 [id number] / / [id number] Rest Mod Prox Cone Body 23 +11 - [id number] Implanted:Qty: 1 on 04/14/2014 at [facility] [place]: Hip [employer] : [employer] 10/19/2018 6276-1-123 / / [id number] Head Fem 28mm - [id number] Implanted:Qty: 1 on 04/14/2014 at [facility] Right: Hip [employer]ICA : [employer] 08/19/2018 6570-0-228 / / [id number] Insert 28mm - [id number] Implanted:Qty: 1 on 04/14/2014 at [facility] [place]: Hip [employer] : [employer] 02/16/2019 1236-2-848 / / [id number] Cable/Sle Beaded D/M 20 Vit - [id number] Implanted:Qty: 1 on 04/14/2014 at [facility] Right: Hip [employer] : [employer] 10/19/2017 6704-0-520 / / [id number] Cable/Sle Beaded D/M 20 Vit - [id number] Implanted:Qty: 1 on 04/14/2014 at [facility] Right: Hip [employer]ICA : [employer] 10/19/2017 6704-0-520 / / [id number] Tritanium Revision Acetabular - [id number] Implanted:Qty: 1 on 04/14/2014 at [facility] Right: Hip [employer]ICA : OR[employer] 05/19/2018 [id number] / / [id number] Screw Bone Osteolock 24 - [id number] Implanted:Qty: 1 on 04/14/2014 at [facility] Right: Hip [employer] : [employer] 02/16/2019 5260-5-024 / / [id number] Screw Bone Osteolock 35 - [id number] Implanted:Qty: 1 on 04/14/2014 at [facility] Right: Hip [employer] : [employer] 03/19/2017 5260-5-035 / / [id number] Liner 42mm - [id number] Implanted:Qty: 1 on 04/14/2014 at [facility] [place]: Hip [employer] : [employer] 11/19/2018 [id number] / / [id number] Hip S Mod Conical Dis [id number] - [id number] Implanted:Qty: 1 on 04/14/2014 at [facility] [place]: Hip [employer] : [employer] 12/17/2018 6276-7-017 / / [id number] documented as of this encounter Visit Diagnoses Diagnosis Dyslipidemia, goal LDL below 70 Other and unspecified hyperlipidemia documented in this encounter Advance Directives * Full Code (Latest Code Status on File) Date Activated Date Inactivated Comments 01/07/2020 5:31 PM 01/08/2020 7:32 PM This order r eflects the patients wishes and were consensually agreed upon. * Full Code Date Activated Date Inactivated Comments 01/07/2020 5:26 PM 01/07/2020 5:31 PM This order r eflects the patients wishes and were consensually agreed upon. Question Answer Comments Discussion of Advance Directives occurred with: Patient * Full Code Date Activated Date Inactivated Comments 04/14/2014 7:55 PM 04/20/2014 10:46 PM . Question Answer Comments Discussion of Advance Directives occurred with: Not Discussed * Full Code Date Activated Date Inactivated Comments 07/24/2012 8:53 AM 07/24/2012 9:44 PM This order r eflects the patients wishes and were consensually agreed upon. Question Answer Comments Discussion of Advance Directives occurred with: Not Discussed * Full Code Date Activated Date Inactivated Comments 04/28/2012 7:02 PM 05/04/2012 8:23 PM This order r eflects the patients wishes and were consensually agreed upon. Care Teams Children'S Tutor Relationship Specialty Start Date End Date Willie Pizarro MD [address] [place] [address] PCP - General Family Medicine 11/22/16 documented as of this encounter
--- OUTSIDE RECORDS SUMMARY | 2024-10-30 11:10 | External Medical Summary | Summary of Care ---
Author Name Unknown Organization [facility] Address [address] [place] [address] Phone [phone] Care Team Providers Care Psych Rn Name Role Phone Willie Epstein MD Primary Care Provider + Reason for Visit * Reason Onset Date Comments Advice 10/29/2024 Encounter Details Date Type Department Care Team (Late st Contact Info) Description 10/29/2024 Telephone Family Practice [facility] [address] [place] [address] Willie Epstein MD [address] [place] [id number] Advice Allergies Active Allergy Reactions Criticality Noted Date [...] 1 Box of 100 11 8 Active RENAL MULTIVITAMIN/ZIN C PO TABS None Entered Active ONETOUCH ULTRASOFT LANCETS MISCIndications: Type 2 diabetes mellitus with hemoglobin A1c goal of less than 8.0% ([facility]) Use as directed 2 times a day. 1 Box Dosing Unit 11 7 Active cinacalcet (SENSIPAR) 30 MG Tablet Take 1 Tab by mouth daily with dinner. 90 Tab 3 8 Active Blood Glucose Monitoring Suppl (Qingdao Crystech Coating ULTRA 2) w/Device KIT Use to check blood sugar 2 times a day; E11.9. 1 Kit 0 Active Glucose Blood (the grafterUCH ULTRA BLUE) STRP Use to check blood sugar 2 times a day; E11. 200 Box Dosing Unit 3 0 Active Albuterol Sulfate HFA 108 (90 Base) MCG/ACT Inhalation Aerosol SolutionIndicati ons:Bronchitis, complicated TAKE 2 PUFFS BY MOUTH EVERY 6 HOURS NEEDED FOR WHEEZE 18 g 3 Active Betamethasone Dipropionate 0.05 % External OintmentIndicati ons:Plaque psoriasis APPLY 2X DAILY (OR MORE IF ITCHY INSTEAD OF SCRATCHING) TO AFFECTED PSORIASIS SPOTS ON ARMS/LEGS UNTIL RESOLVED 50 g 1 4 Active Aspirin 81 MG Oral Tablet Chewable Take 1 Tablet by mouth in the morning. ON HOLD OF 03/02/24. Active Lansoprazole 30 MG Oral Capsule Delayed Release (Prevacid) Take 1 Capsule by mouth in the morning and 1 Capsule in the evening. 180 Capsule 2 4 Active Additional Information Patient not taking.Reported on 09/20/2024 Simvastatin 20 MG Oral Tablet (Zocor)Indicatio ns:Dyslipidemia, goal LDL below 70 TAKE ONE TABLET BY MOUTH ONCE A DAY AT BEDTIME 90 Tablet 1 4 Active Gabapentin 100 MG Oral Capsule (Neurontin)Indic ations:Spondylol isthesis of lumbosacral region TAKE 1 CAPSULE BY MOUTH DAILY + 1 DOSE EXTRA AFTER DIALYSIS EVERY 3 DAYS. 135 Capsule 2 4 Active rOPINIRole HCl 2 MG Oral Tablet (Requip) TAKE 1 TABLET BY MOUTH AT BEDTIME. 1-3 HOURS BEFORE BEDTIME WITH FOOD FOR RESTLESS LEGS 90 Tablet 3 4 Active Trulicity 0.75 MG/0.5ML Subcutaneous Solution Pen-injector (Dulaglutide)Ind ications:Type 2 diabetes mellitus with hemoglobin A1c goal of less than 8.0% ([facility]) INJECT UNDER THE SKIN 0.75 MG ONCE A WEEK . 2 mL 2 4 Active Citalopram Hydrobromide 20 MG Oral Tablet (CeleXA) TAKE 1 TABLET BY MOUTH EVERY DAY 90 Tablet 1 4 Active Triamcinolone Acetonide 0.1 % External Ointment (Aristocort)Ruba cations:Inverse psoriasis APPLY 2X DAILY DURING WEEK (OFF ON WEEKENDS) TO PSORIASIS UNDER BREASTS UNTIL RESOLVED, THEN WHEN FLARING 454 g 4 Active Buprenorphine 10 MCG/HR Transdermal Patch Weekly (Butrans) Place 1 Patch over 7 days topically on the skin once a week. 4 Patch 3 5 Active Molnupiravir 200 MG Oral Capsule Take 4 Capsules by mouth in the morning and 4 Capsules before bedtime. 40 Capsule 5 Active documented as of this encounter (statuses [...] adult exam 08/04/2019 Overview (03/04/2024): 03/12 EGD [facility]-normal esoph, gastritis. Small hiatal hernia. Gastric 10mm diverticula 01/09 DEXA +osteoporosis. NEED discuss. 11/10 colon +tubular adenomas. 04/09 mult compression fractures. 05/2018 many polyps Therapeutic opioid induced constipation 08/04/20 ESRD on dialysis 09/08/2016 Overview (02/26/2021): 03/05 HCP forms given-wants . NEEDS further Living will 2017 consider transplant needs 20lb -HD [place] [facility]? T,R, S. Since January 2013. Spondylolisthesis [...] 04/13/2021 Overview (04/09/2021): Mult levels 04/09 CT [facility] + lumbar Respiratory symptoms 01/08/2020 021 Fever of unknown origin (FUO) 01/07/2020 02/26/2021 Respiratory infection 01/07/20202020 Cellulitis 06/28/2016 09/08/2016 Abnormal vaginal bleeding 02/12/2016 Cellulitis 02/07/2016 09/08/2016 UTI (urinary tract infection), bacterial 04/19/2014 05/02/2014 Hypotension 04/15/2014 05/02/2014 Compression of lumbar vertebra 02/03/2013 06/07/2021 Overview (04/09/2021): Mult levels noted 04/[address] [facility] [address] also thoracic CKD (chronic kidney [...] 08/25/200909/06 Overview (08/25/2009): Modified 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 shelter current use [...] update of inactive term BENIGN HYPERTENSION 08/25/20 Overview (08/25/2009): Modified 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 Menopause 02/07/2016 Tachycardia 02/07/2016 Pulmonary embolus 10/16/2010 Other psoriasis and similar disorders 02/07/2016 Hemorrhoids 02/07/2016 Renal function test abnormal 07/20/2014 Overview (10/22/2010): Prior ARF secondary to complications from incarcerated hernia and bowel obstruction. Also prior h/o multiple kidney stones - is s/p B/L stents Sees Dr. Angel in [place] for Urology Osteoarthritis of hip 2018 documented as of this encounter (statuses as of 10/29/2024) Immunizations Name Administration Dates Next Due COVID-19 mRNA, LNP-s, No Pre serve, 2-Dose Series (MinoMonsters) 09/11/2021,01/02/2021,12/12/2020 COVID-19, mRNA, LNP-s, PF, B ooster, 100mcg/0.5mg (Moderna) 02/26/2022 Covid-19, Mrna, Lnp-s, Pf, B ivalent, 30 Mcg, IM, 12 yrs and above (Pfizer) 07/01/2022 H1N1 2009 Influenza, IM 10/17/2009 HEPATITIS B VACCINE, RECOMB, 20 MCG/ML, ADULT (HEPLISAV-B) 05/28/2022,04/04/2022,02/26/2022,01/29 Hepatitis B, 0-19 yrs 03/07/2016, 016,11/02/2015,09/14,05/11/2013,04/13/2013,03/16/2013 Hepatitis B, 20+ yrs 03/07/2016,12/09/19 16,11/02/2015,09/14,05/11/2013,04/13/2013,03/16/2013 Pneumococcal Conjugate Vacc, 13 Valent (Prevnar) 12/31/2017,12/10/2016 Pneumococcal Polysaccharide PPV23 (Pneumovax) 08/20/2019,04/15/2006 Seasonal Influenza Vac., MDV , IM, 0.5 mL (Fluzone) 08/20/2015,07/20/2014,07/06/2013,07/25,07/10/2011,07/23/2010,07/27/2009 ,07/29/2008,08/26/2007,08/14/2006 Seasonal Influenza, High Dos e, Trivalent, PF, IM (Fluzone HD) 08/03/2024,07/16/2017 Seasonal Influenza, PF, 6 M & above, IM , (FluLaval or Fluzone) 08/03/2018 Seasonal Influenza, QUAD, wi th Preserv, 6 mons & Above, 0.5 mL, IM 07/09/2022,07/24/2021 Seasonal Influenza, Quadriva lent Hd, 65+ Yrs 08/03/2021 Seasonal Influenza, Recombin ant, RIV4, PF, (Flublock) 07/29/2023 Seasonal Influenza, Recombin ant, Trivalent, PF (Flublock) 07/21/2019,08/05/2016 TDAP (age 10 and older)(Boostrix) 12/29/2018 TDAP, [...] Date 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 Will send molnupirivir , instead. She should NOT take her simvastatin for the 5 days she takes molnupirivir ER if worsening SOB, CP, lighteaded, etc Cc: Dr Ana MARI * Telephone Encounter - Latasha Fajardo MED ASSIST - 10/29/2024 9:17 AM EST Symptoms started on Friday. Sx's include body aches, headache, fever, nasal congestion. Pt has dialysis tomorrow and wants to start Paxlovid today. * Telephone Encounter - Annette Tate OSA - 10/29/2024 9:07 AM EST Reason for patient's call: pt tested positive for COVID on 10/26 or 10/27, is asking for Paxlovid as she feels miserable. Caller was unable to be transferred to the nurse line due to no answer. documented in this encounter Plan of Treatment Upcoming Encounters Date Type Department Care Team (Late st Contact Info) Description 12/15/2024 11:00 AM EST Office Visit Pharmacy, [facility] [address] [address] [facility] [address] [place] [address] 03/22/2025 1:40 PM EDT Office Visit Family Practice [facility] [address] [address] Willie Epstein MD [address] [place] [address] 05/23/2025 3:00 PM EDT Office Visit Dermatology [address] [place] [address] Coco Ivan PA-C [address] [place] [address] [place] [address] 06/13/2025 11:00 AM EDT Cardiac Studies Cardiac Studies, [facility] [address] [address] 07/04/2025 4:00 PM EDT Office Visit Cardiology, [facility] [address] [place] [address] Bandar Avila MD [address] [place] [address] Scheduled Procedures Name Priority Associated Diagnoses Date/Ti [...] this encounter Medical Devices Implanted Type Area Balcony Worker Device Identifier Shelf Expiration Date Model / Serial / Lot Cement Antibiotic Bone - [id number] Implanted:Qty: 3 on 04/28/2012 at [place] [facility] [place] Right: Hip VERONICA : ORTHOPAEDICS 11/19/2013 6197-9-010 / / [id number] Prostalac Acetabular Cup Implanted:Qty: 1 on 04/28/2012 at [place] [facility] Right: Hip SUBHA & SUBHA DEPUY 05/19/2017 1541-42-320 / / [id number] Prostalac Hip Stem Size 105mm Std Offset Implanted:Qty: 1 on 04/28/2012 at [facility] Right: Hip SUBHA & SUBHA DEPUY 10/19/2021 1541-01-000 / / [id number] Description:Prostalac Hip St em Size 105mm Offset (Depuy) Ball Artic Wiliam Brn 32 Plus5 - [id number] Implanted:Qty: 1 on 04/28/2012 at [place] [facility] Right: Hip JNJ : DEPUY ORTHOPAEDICS 10/19/2016 [id number] / / [id number] Rest Mod Prox Cone Body 23 +11 - [id number] Implanted:Qty: 1 on 04/14/2014 at [place] [facility] Right: Hip VERONICA : ORTHOPAEDICS 10/19/2018 6276-1-123 / / [id number] Head Fem 28mm - [id number] Implanted:Qty: 1 on 04/14/2014 at [place] [facility] Right: Hip VERONICA : ORTHOPAEDICS 08/19/2018 6570-0-228 / / [id number] Insert 28mm - [id number] Implanted:Qty: 1 on 04/14/2014 at [place] [facility] Right: Hip VERONICA : ORTHOPAEDICS 02/16/2019 1236-2-848 / / [id number] Cable/Sle Beaded D/M 20 Vit - [id number] Implanted:Qty: 1 on 04/14/2014 at [facility] Right: Hip VERONICA : ORTHOPAEDICS 10/19/2017 6704-0-520 / / [id number] Cable/Sle Beaded D/M 20 Vit - [id number] Implanted:Qty: 1 on 04/14/2014 at [facility] Right: Hip VERONICA : ORTHOPAEDICS 10/19/2017 6704-0-520 / / [id number] Tritanium Revision Acetabular - [id number] Implanted:Qty: 1 on 04/14/2014 at [facility] Right: Hip VERONICA : ORTHOPAEDICS 05/19/2018 509-02-56E / / [id number] Screw Bone Osteolock 24 - [id number] Implanted:Qty: 1 on 04/14/2014 at [facility] Right: Hip VERONICA : ORTHOPAEDICS 02/16/2019 5260-5-024 / / [id number] Screw Bone Osteolock 35 - [id number] Implanted:Qty: 1 on 04/14/2014 at [facility] Right: Hip VERONICA : ORTHOPAEDICS 03/19/2017 5260-5-035 / / [id number] Liner 42mm - [id number] Implanted:Qty: 1 on 04/14/2014 at [facility] Right: Hip VERONICA : ORTHOPAEDICS 11/19/2018 626-00-42E / / [id number] Hip S Mod Conical Dis 99k348 - [id number] Implanted:Qty: 1 on 04/14/2014 at [facility] Right: Hip VERONICA : ORTHOPAEDICS 12/17/2018 6276-7-017 / / [id number] documented as of this encounter Advance Directives * Full Code [...] and were consensually agreed upon. Care Teams Psych Rn Relationship Specialty Start Date End Date Willie Epstein MD [address] [facility] [place] [address] PCP - General Family Medicine 11/22/16 documented as of this encounter
--- OUTSIDE RECORDS SUMMARY | 2024-10-30 11:10 | External Medical Summary | Summary of Care ---
Author Name Unknown Organization [facility] Address [address] [place] [address] Phone [phone] Care Team Providers Care Edge Trimmer Name Role Phone Willie Epstein MD Primary Care Provider + Reason for Visit * Reason Onset Date Comments Advice 10/29/2024 Encounter Details Date Type Department Care Team (Late st Contact Info) Description 10/29/2024 Telephone Family Practice [facility] [address] [place] [address] Willie Epstein MD [address] [place] [id number] Advice Allergies Active Allergy Reactions Criticality Noted [...] goal of less than 8.0% ([facility]) Use as directed 2 times a day. 1 Box Dosing Unit 11 7 Active cinacalcet (SENSIPAR) 30 MG Tablet Take 1 Tab by mouth daily with dinner. 90 Tab 3 8 Active Blood Glucose Monitoring Suppl (Konjekt ULTRA 2) w/Device KIT Use to check blood sugar 2 times a day; E11.9. 1 Kit 0 Active Glucose Blood (Trice MedicalUCH ULTRA BLUE) STRP Use to check blood [...] goal of less than 8.0% ([facility]) INJECT UNDER THE SKIN 0.75 MG [...] adult exam 08/04/2019 Overview (03/04/2024): 03/12 EGD [facility]-normal esoph, gastritis. Small hiatal hernia. Gastric 10mm diverticula 01/09 DEXA +osteoporosis. NEED discuss. 11/10 colon +tubular adenomas. 04/09 mult compression fractures. 05/2018 many polyps Therapeutic opioid induced constipation 08/04/20 ESRD on dialysis 09/08/2016 Overview (02/26/2021): 03/05 HCP forms given-wants . NEEDS further Living will 2017 consider transplant needs 20lb -HD [place] [facility]? T,R, S. Since January 2013. Spondylolisthesis [...] 04/13/2021 Overview (04/09/2021): Mult levels 04/09 CT [facility] + lumbar Respiratory symptoms 01/08/2020 021 Fever of unknown origin (FUO) 01/07/2020 02/26/2021 Respiratory infection 01/07/20202020 Cellulitis 06/28/2016 09/08/2016 Abnormal vaginal bleeding 02/12/2016 Cellulitis 02/07/2016 09/08/2016 UTI (urinary tract infection), bacterial 04/19/2014 05/02/2014 Hypotension 04/15/2014 05/02/2014 Compression of lumbar vertebra 02/03/2013 06/07/2021 Overview (04/09/2021): Mult levels noted 04/[address] [facility] [address] also thoracic CKD (chronic kidney [...] 08/25/200909/06 Overview (08/25/2009): Modified 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 intermediate current use of ant icoagulant therapy [...] s/p B/L stents Sees Dr. 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 Will send molnupirivir , instead. [...] 12/15/2024 11:00 AM EST Office Visit Pharmacy, [facility] [address] [address] [facility] [address] [address] 03/22/2025 1:40 PM EDT Office Visit Family Practice [facility] [address] [address] Willie Epstein MD [address] [place] [place] [address] 05/23/2025 3:00 PM EDT Office Visit Dermatology [address] [place] [address] Coco Ivan PA-C [address] [place] [address] [place] [address] 06/13/2025 11:00 AM EDT Cardiac Studies Cardiac Studies, [facility] [address] [place] [address] 07/04/2025 4:00 PM EDT Office Visit Cardiology, [facility] [address] [place] [place] [address] Bandar Avila MD [address] [place] [address] Scheduled Procedures Name Priority Associated Diagnoses Date/Ti [...] Additional history exists Lipid Panel 05/23/2027 05/23/2022, 05/1 , 03/23/2018, Additional history exists DTap/Tdap Vaccines (3 [...] this encounter Medical Devices Implanted Type Area Ship Laborer Device Identifier Shelf Expiration Date Model / Serial / Lot Cement Antibiotic Bone - [id number] Implanted:Qty: 3 on 04/28/2012 at [place] [facility] [place] Right: Hip VERONICA : ORTHOPAEDICS 11/19/2013 6197-9-010 / / [id number] Prostalac Acetabular Cup Implanted:Qty: 1 on 04/28/2012 at [place] [facility] [place] Right: Hip SUBHA & SUBHA DEPUY 05/19/2017 1541-42-320 / / [id number] Prostalac Hip Stem Size 105mm Std Offset Implanted:Qty: 1 on 04/28/2012 at [place] [facility] [place] Right: Hip SUBHA & SUBHA DEPUY 10/19/2021 1541-01-000 / / [id number] Description:Prostalac Hip St em Size 105mm Offset (Depuy) Ball Artic Wiliam Brn 32 Plus5 - [id number] Implanted:Qty: 1 on 04/28/2012 at [place] [facility] Right: Hip JNJ : DEPUY ORTHOPAEDICS 10/19/2016 [id number] / / [id number] Rest Mod Prox Cone Body 23 +11 - [id number] Implanted:Qty: 1 on 04/14/2014 at [facility] Right: Hip VERONICA : ORTHOPAEDICS 10/19/2018 6276-1-123 / / [id number] Head Fem 28mm - [id number] Implanted:Qty: 1 on 04/14/2014 at [facility] Right: Hip VERONICA : ORTHOPAEDICS 08/19/2018 6570-0-228 / / [id number] Insert 28mm - [id number] Implanted:Qty: 1 on 04/14/2014 at [facility] Right: Hip VERONICA : ORTHOPAEDICS 02/16/2019 1236-2-848 / / [id number] Cable/Sle Beaded D/M 20 Vit - [id number] Implanted:Qty: 1 on 04/14/2014 at [facility] Right: Hip VERONICA : ORTHOPAEDICS 10/19/2017 6704-0-520 / / [id number] Cable/Sle Beaded D/M 20 Vit - [id number] Implanted:Qty: 1 on 04/14/2014 at [facility] Right: Hip VERONICA : ORTHOPAEDICS 10/19/2017 6704-0-520 / / [id number] Tritanium Revision Acetabular - [id number] Implanted:Qty: 1 on 04/14/2014 at [facility] Right: Hip VERONICA : ORTHOPAEDICS 05/19/2018 509-02-56E / / [id number] Screw Bone Osteolock 24 - [id number] Implanted:Qty: 1 on 04/14/2014 at [facility] Right: Hip VERONICA : ORTHOPAEDICS 02/16/2019 5260-5-024 / / [id number] Screw Bone Osteolock 35 - [id number] Implanted:Qty: 1 on 04/14/2014 at [facility] Right: Hip VERONICA : ORTHOPAEDICS 03/19/2017 5260-5-035 / / [id number] Liner 42mm - [id number] Implanted:Qty: 1 on 04/14/2014 at [facility] Right: Hip VERONICA : ORTHOPAEDICS 11/19/2018 626-00-42E / / [id number] Hip S Mod Conical Dis 75m026 - [id number] Implanted:Qty: 1 on 04/14/2014 at [facility] Right: Hip VERONICA : ORTHOPAEDICS 12/17/2018 6276-7-017 / / [id number] documented as of this encounter Advance Directives [...] and were consensually agreed upon. Care Teams Edge Trimmer Relationship Specialty Start Date End Date Willie Epstein MD [address] [facility] [place] [address] PCP - General Family Medicine 11/22/16 documented as of this encounter
--- OUTSIDE RECORDS SUMMARY | 2024-10-30 11:10 | External Medical Summary | Summary of Care ---
Author Name Unknown Organization [facility] Address [address] [place] [address] Phone [phone] Care Team Providers Care Color Mixer Name Role Phone Willie Pizarro MD Primary Care Provider + Reason for Visit * Reason Comments eRx-Medication Refill Encounter Details Date Type Department Care Team (Late st Contact Info) Description 10/29/2024 Refill Family Practice [facility] [address] [place] [address] Willie Pizarro MD [address] [place] [address] Dyslipidemia, goal LDL below 70 Allergies Active [...] 11/07/19 18 Active Blood Glucose Monitoring Suppl (eMindful ULTRA 2) w/Device KIT Use to check blood sugar 2 times a day; E11.9. 1 Kit 10/22/19 20 Active Glucose Blood ([employer] second hand information companyTOUCH ULTRA BLUE) STRP Use to check blood [...] adult exam 08/04/2019 Overview (03/04/2024): 03/12 EGD [facility]-normal esoph, gastritis. Small hiatal hernia. Gastric 10mm diverticula 01/09 DEXA +osteoporosis. NEED discuss. 11/10 colon +tubular adenomas. 04/09 mult compression fractures. 05/2018 many polyps Therapeutic opioid induced constipation 08/04/20 ESRD on dialysis 09/08/2016 Overview (02/26/2021): 03/05 HCP forms given-wants . NEEDS further Living will 2017 consider transplant needs 20lb -HD [facility]? T,R, S. Since January 2013. Spondylolisthesis [...] 04/13/2021 Overview (04/09/2021): Mult levels 04/09 CT [facility] + lumbar Respiratory symptoms 01/08/2020 021 Fever of unknown origin (FUO) 01/07/2020 02/26/2021 Respiratory infection 01/07/20202020 Cellulitis 06/28/2016 09/08/2016 Abnormal vaginal bleeding 02/12/2016 Cellulitis 02/07/2016 09/08/2016 UTI (urinary tract infection), bacterial 04/19/2014 05/02/2014 Hypotension 04/15/2014 05/02/2014 Compression of lumbar vertebra 02/03/2013 06/07/2021 Overview (04/09/2021): Mult levels noted 04/[address] [facility] [address] also thoracic CKD [...] 08/25/200909/06 Overview (08/25/2009): Modified 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 longterm current use of ant icoagulant therapy 04/19/2009 [...] s/p B/L stents Sees Dr. 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 [...] * Telephone Encounter - Margaret Barksdale [facility] - 10/29/2024 11:13 AM EST Unable [...] PharmD Clinical Pharmacist [facility] ([facility]) [phone] 10/29/2024, 11:14 AM documented in this encounter Plan of Treatment Upcoming Encounters Date Type Department Care Team (Late st Contact Info) Description 12/15/2024 11:00 AM EST Office Visit Pharmacy, [facility] [address] [place] [address] [address] [facility] [place] [address] 03/22/2025 1:40 PM EDT Office Visit Family Practice [facility] [address] [address] Willie Pizarro MD [address] [place] [address] 05/23/2025 3:00 PM EDT Office Visit Dermatology [address] [place] [address] Coco Ivan PA-C [address] [place] [address] [place] [address] 06/13/2025 11:00 AM EDT Cardiac Studies Cardiac Studies, [facility] [address] [place] [address] 07/04/2025 4:00 PM EDT Office Visit Cardiology, [facility] [address] [address] Bandar Avila MD [address] [place] [address] [address] Scheduled Procedures Name Priority Associated Diagnoses Date/Ti [...] this encounter Medical Devices Implanted Type Area Museum Exhibit Technician Device Identifier Shelf Expiration Date Model / Serial / Lot Cement Antibiotic Bone - [id number] Implanted:Qty: 3 on 04/28/2012 at [place] [facility] Right: Hip VERONICA : ORTHOPAEDICS 11/19/2013 6197-9-010 / / [id number] Prostalac Acetabular Cup Implanted:Qty: 1 on 04/28/2012 at [facility] Right: Hip SUBHA & SUBHA DEPUY 05/19/2017 1541-42-320 / / [id number] Prostalac Hip Stem Size 105mm Std Offset Implanted:Qty: 1 on 04/28/2012 at [facility] Right: Hip SUBHA & SUBHA DEPUY 10/19/2021 1541-01-000 / / [id number] Description:Prostalac Hip St em Size 105mm Offset (Depuy) Ball Artic Wiliam Brn 32 Plus5 - [id number] Implanted:Qty: 1 on 04/28/2012 at [facility] Right: Hip JNJ : DEPUY ORTHOPAEDICS 10/19/2016 [id number] / / [id number] Rest Mod Prox Cone Body 23 +11 - [id number] Implanted:Qty: 1 on 04/14/2014 at OR [facility] Right: Hip VERONICA : ORTHOPAEDICS 10/19/2018 6276-1-123 / / [id number] Head Fem 28mm - [id number] Implanted:Qty: 1 on 04/14/2014 at [facility] Right: Hip VERONICA : ORTHOPAEDICS 08/19/2018 6570-0-228 / / [id number] Insert 28mm - [id number] Implanted:Qty: 1 on 04/14/2014 at OR [facility] Right: Hip VERONICA : ORTHOPAEDICS 02/16/2019 1236-2-848 / / [id number] Cable/Sle Beaded D/M 20 Vit - [id number] Implanted:Qty: 1 on 04/14/2014 at [facility] Right: Hip VERONICA : ORTHOPAEDICS 10/19/2017 6704-0-520 / / [id number] Cable/Sle Beaded D/M 20 Vit - [id number] Implanted:Qty: 1 on 04/14/2014 at [facility] Right: Hip VERONICA : ORTHOPAEDICS 10/19/2017 6704-0-520 / / [id number] Tritanium Revision Acetabular - [id number] Implanted:Qty: 1 on 04/14/2014 at [facility] Right: Hip VERONICA : ORTHOPAEDICS 05/19/2018 509-02-56E / / [id number] Screw Bone Osteolock 24 - [id number] Implanted:Qty: 1 on 04/14/2014 at [facility] Right: Hip VERONICA : ORTHOPAEDICS 02/16/2019 5260-5-024 / / [id number] Screw Bone Osteolock 35 - [id number] Implanted:Qty: 1 on 04/14/2014 at [facility] Right: Hip VERONICA : ORTHOPAEDICS 03/19/2017 5260-5-035 / / [id number] Liner 42mm - [id number] Implanted:Qty: 1 on 04/14/2014 at OR [facility] [place] Right: Hip VERONICA : ORTHOPAEDICS 11/19/2018 626-00-42E / / [id number] Hip S Mod Conical Dis 04e403 - [id number] Implanted:Qty: 1 on 04/14/2014 at OR [facility] Right: Hip VERONICA : ORTHOPAEDICS 12/17/2018 6276-7-017 / / [id number] documented as of this encounter Visit Diagnoses [...] and were consensually agreed upon. Care Teams Color Mixer Relationship Specialty Start Date End Date Willie Pizarro MD [address] [place] [address] PCP - General Family Medicine 11/22/16 documented as of this encounter
--- OUTSIDE RECORDS SUMMARY | 2024-10-30 11:11 | External Medical Summary | Summary of Care ---
Author Name Unknown Organization [facility] Address [address] [place] [address] Phone [phone] Care Team Providers Care Security Consultant Name Role Phone Willie Epstein MD Primary Care Provider + Reason for Visit * Reason Onset Date Comments Advice 10/22/2024 Encounter Details Date Type Department Care Team (Late st Contact Info) Description 10/22/2024 Telephone Family Practice [facility] [address] [place] [address] Willie Epstein MD [address] [place] [id number] Advice Allergies Active Allergy Reactions Criticality Noted Date Comments Cefazolin Unknown 11/15/2023 Other Reaction(s): CAN'T REMEMBER Methylprednisolone Other (Please comment) 07/28/2017 Side effects c/w med (sweating, heart racing etc) Nitrofurantoin Hives High 03/01/2024 Nitrofurantoin Monohyd Macro Hives 04/04/2014 Pantoprazole Unknown 11/15/2023 Other Reaction(s): CAN'T REMEMBER Sulfa Antibiotics Edema face/lips/tongue High 09/02/2008 documented as of this encounter (statuses as of 10/28/2024) Medications INSULIN SYRINGE-NEEDLE U-100 30G X 1/2" 1 ML MISCIndications: DM type 2, goal A1c below 7 Use as directed 1 Box of 100 11 8 Active RENAL MULTIVITAMIN/ZIN C PO TABS None Entered Active ONETOUCH ULTRASOFT LANCETS MISCIndications: Type 2 diabetes mellitus with hemoglobin A1c goal of less than 8.0% ([facility]) Use as directed 2 times a day. 1 Box Dosing Unit 11 7 Active cinacalcet (SENSIPAR) 30 MG Tablet Take 1 Tab by mouth daily with dinner. 90 Tab 3 8 Active Blood Glucose Monitoring Suppl (GlobalServe ULTRA 2) w/Device KIT Use to check blood sugar 2 times a day; E11.9. 1 Kit 0 Active Glucose Blood (HackMyPicUCH ULTRA BLUE) STRP Use to check blood [...] hemoglobin A1c goal of less than 8.0% ([facility]) INJECT UNDER THE SKIN 0.75 MG ONCE [...] THEN WHEN FLARING 454 g 4 Active documented as of this encounter (statuses as of 10/28/2024) Active Problems Problem Noted Date Diagnosed Date [...] adult exam 08/04/2019 Overview (03/04/2024): 03/12 EGD [facility]-normal esoph, gastritis. Small hiatal hernia. Gastric 10mm diverticula 01/09 DEXA +osteoporosis. NEED discuss. 11/10 colon +tubular adenomas. 04/09 mult compression fractures. 05/2018 many polyps Therapeutic opioid induced constipation 08/04/20 19 ESRD on dialysis 09/08/2016 Overview (02/26/2021): 03/05 HCP forms given-wants . NEEDS further Living will 2017 consider transplant needs 20lb -HD [facility]? T,R, S. Since January 2013. Spondylolisthesis of lumbosacral region 02/04/20 Overview (02/03/2013): L5-S1 level with grade 1 [...] as of this encounter (statuses as of 10/28/2024) Resolved Problems Problem Noted Date Diagnosed Date Resolved Date Thoracic compression fracture 04/09/2021 04/13/2021 Overview (04/09/2021): Mult levels 04/09 CT [facility] + lumbar Respiratory symptoms 01/08/2020 021 Fever of unknown origin (FUO) 01/07/2020 02/26/2021 Respiratory infection 01/07/20202020 Cellulitis 06/28/2016 09/08/2016 Abnormal vaginal bleeding 02/12/2016 Cellulitis 02/07/2016 09/08/2016 UTI (urinary tract infection), bacterial 04/19/2014 05/02/2014 Hypotension 04/15/2014 05/02/2014 Compression of lumbar vertebra 02/03/2013 06/07/2021 Overview (04/09/2021): Mult levels noted 04/[address] [facility] [address] also thoracic CKD [...] 08/25/200909/06 Overview (08/25/2009): Modified 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 residential current use of ant icoagulant therapy 04/19/2009 [...] s/p B/L stents Sees Dr. 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 Answer Date of Assessment Author No 01/07/2020 6:50 PM Moriah Harris, AMANDA * Are you blind or do you have serious difficulty seeing, even when wearing glasses? Answer Date of Assessment Author No 01/07/2020 6:50 PM Moriah Harris RN * Do you have serious difficulty [...] 01/07/2020 6:50 PM EDT Moriah Coughlin RN documented as of this encounter Mental Status * Because of a physical, mental, or emotional condition, do you have serious difficulty concentrating, remembering, or making decisions? (5 years old or older) Answer Entry Date Author No 01/07/2020 6:50 PM EDT Moriah Coughlin RN documented in this encounter Miscellaneous Notes * Telephone Encounter - Joya Renee CPhT - 10/22/2024 7:44 AM EST Pt calling regarding appt. Transferred to for further assistance. Thank you, Joya Renee CPhT Dialysis Tech II [facility] ([facility]) 10/22/2024,7:45 AM documented in this encounter Plan of Treatment Upcoming Encounters Date Type Department Care Team (Late st Contact Info) Description 12/15/2024 11:00 AM EST Office Visit Pharmacy, [facility] [address] [address] [facility] [address] [place] [address] [address] 03/22/2025 1:40 PM EDT Office Visit Family Practice [facility] [address] [place] [address] [address] Willie Epstein MD [address] [place] [address] 05/23/2025 3:00 PM EDT Office Visit Dermatology [facility] [place] [place] [address] Coco Ivan PA-C [address] [place] [address] [place] [address] 06/13/2025 11:00 AM EDT Cardiac Studies Cardiac Studies, [facility] [place] [address] 07/04/2025 4:00 PM EDT Office Visit Cardiology, [facility] [address] [facility] [place] [address] Bandar Avila MD [address] [place] [address] Scheduled Procedures Name Priority Associated Diagnoses Date/Ti [...] Additional history exists Lipid Panel 05/23/2027 05/23/2022, 05/, 03/23/2018, Additional history exists DTap/Tdap Vaccines (3 [...] this encounter Medical Devices Implanted Type Area Harbor Boat Pilot Device Identifier Shelf Expiration Date Model / Serial / Lot Cement Antibiotic Bone - [id number] Implanted:Qty: 3 on 04/28/2012 [place] [facility] [place] Hip VERONICA : ORTHOPAEDICS 11/19/2013 6197-9-010 / / [id number] Prostalac Acetabular Cup Implanted:Qty: 1 on 04/28/2012 at [place] [facility] Right: Hip SUBHA & SUBHA DEPUY 05/19/2017 1541-42-320 / / [id number] Prostalac Hip Stem Size 105mm Std Offset Implanted:Qty: 1 on 04/28/2012 at [place] [facility] Right: Hip SUBHA & SUBHA DEPUY 10/19/2021 1541-01-000 / / [id number] Description:Prostalac Hip St em Size 105mm Offset (Depuy) Ball Artic Wiliam Brn 32 Plus5 - [id number] Implanted:Qty: 1 on 04/28/2012 at [place] [facility] Right: Hip JNJ : DEPUY ORTHOPAEDICS 10/19/2016 [id number] / / [id number] Rest Mod Prox Cone Body 23 +11 - [id number] Implanted:Qty: 1 on 04/14/2014 at [facility] Right: Hip VERONICA : ORTHOPAEDICS 10/19/2018 6276-1-123 / / [id number] Head Fem 28mm - [id number] Implanted:Qty: 1 on 04/14/2014 at [facility] Right: Hip VERONICA : ORTHOPAEDICS 08/19/2018 6570-0-228 / / [id number] Insert 28mm - [id number] Implanted:Qty: 1 on 04/14/2014 at [facility] Right: Hip VERONICA : ORTHOPAEDICS 02/16/2019 1236-2-848 / / [id number] Cable/Sle Beaded D/M 20 Vit - [id number] Implanted:Qty: 1 on 04/14/2014 at [facility] Right: Hip VERONICA : ORTHOPAEDICS 10/19/2017 6704-0-520 / / [id number] Cable/Sle Beaded D/M 20 Vit - [id number] Implanted:Qty: 1 on 04/14/2014 [place] [facility] Right: Hip VERONICA : ORTHOPAEDICS 10/19/2017 6704-0-520 / / [id number] Tritanium Revision Acetabular - [id number] Implanted:Qty: 1 on 04/14/2014 at [facility] Right: Hip VERONICA : ORTHOPAEDICS 05/19/2018 509-02-56E / / [id number] Screw Bone Osteolock 24 - [id number] Implanted:Qty: 1 on 04/14/2014 at [facility] Right: Hip VERONICA : ORTHOPAEDICS 02/16/2019 5260-5-024 / / [id number] Screw Bone Osteolock 35 - [id number] Implanted:Qty: 1 on 04/14/2014 at [facility] Right: Hip VERONICA : ORTHOPAEDICS 03/19/2017 5260-5-035 / / [id number] Liner 42mm - [id number] Implanted:Qty: 1 on 04/14/2014 at [facility] Right: Hip VERONICA : ORTHOPAEDICS 11/19/2018 626-00-42E / / [id number] Hip S Mod Conical Dis 00d177 - [id number] Implanted:Qty: 1 on 04/14/2014 at [facility] Right: Hip VERONICA : ORTHOPAEDICS 12/17/2018 6276-7-017 / / [id number] documented as of this encounter Advance Directives [...] and were consensually agreed upon. Care Teams Security Consultant Relationship Specialty Start Date End Date Willie Epstein MD [address] [facility] [place] [address] PCP - General Family Medicine 11/22/16 documented as of this encounter
--- OUTSIDE RECORDS SUMMARY | 2024-10-30 11:11 | External Medical Summary | Continuity of Care Document ---
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 Name Role Phone Willie Epstein Primary Care Physician [phone] Encounter [facility] [id number] Date(s): 10/26/24 - 10/26/24 [facility] [address] [place] [address] [phone] Encounter Diagnosis End stage renal disease(Discharge Diagnosis) - 10/26/24 Discharge Disposition: Home or Self Care Attending Physician: SUMMER Espinoza Lynn Referring Physician: MD Epstein Paul R Allergies, Adverse Reactions, Alerts Substance Criticality Severity Reaction Reaction Severity Status sulfa drugs Rash Active Protonix Unable to assess criticality Severe Acute Renal Failure Active Ancef hives Active Assessment and Plan Extracted from: Title:Clinical Document Author:SUMMER Espinoza Lynn Date:10/26/24 [facility] OUTPATIENT NOTE Name: JAIMEE VENEGAS Patient Number: [id number] : 1955 Date of Service: 10/26/2024 Chief Complaint: _Follow-up for aVF HPI: _Ms. Magallon is an elderly female presents to Dr. Mena's vascular surgery clinic today for follow-up visit regarding her recent right upper arm AV fistula revision. Patient states they are continuing to use her fistula without any problems. She denies any complaints or concerns. Regarding her incision aside from the fact that the xavier have become "itchy." She states that the edema in her right arm has significantly improved and that she occasionally gets some tingling or pain in her right second finger, but nowhere else. Current Home Meds: (Last Updated 10/26 15:07) albuterol (Albuterol (Eqv-ProAir HFA) 90 mcg/inh inhalation aerosol) TAKE 2 PUFFS BY MOUTH EVERY 6 HOURS NEEDED FOR WHEEZE aspirin (aspirin 81 mg oral tablet) 81 mg PO Daily betamethasone-clotrimazole topical topical bid topically as needed cinacalcet (cinacalcet 90 mg oral tablet) TAKE 1 TABLET BY MOUTH EVERY DAY WITH SUPPER citalopram (citalopram 20 mg oral tablet) TAKE 1 TABLET BY MOUTH EVERY DAY clobetasol topical (clobetasol 0.05% topical cream) 1 appl topical bid apply to legs until clear for stasis dermatitiis docusate (Colace 100 mg oral capsule) 200 mg PO Daily PRN: as needed for constipation dulaglutide (Trulicity Pen 0.75 mg/0.5 mL subcutaneous solution) INJECT UNDER THE SKIN 0.75 MG ONCE A WEEK . ferrous sulfate (ferrous sulfate 325 mg (65 mg elemental iron) oral tablet) 325 mg PO Daily gabapentin (gabapentin 100 mg oral capsule) TAKE 1 CAPSULE BY MOUTH DAILY + 1 DOSE EXTRA AFTER DIALYSIS EVERY 3 DAYS. lanthanum carbonate (lanthanum 750 mg oral tablet, chewable) CHEW AND SWALLOW 1 TABLET THREE TIMES A DAY WITH MEALS multivitamin (Renal Caps oral capsule) 1 cap PO Daily oxyCODONE (oxyCODONE 15 mg oral tablet) rOPINIRole (rOPINIRole 2 mg oral tablet) 2 mg PO Daily senna (Senokot Extra 8.6 mg oral tablet) 8.6 mg PO Daily PRN: as needed for constipation simvastatin (Zocor) 20 mg PO qAM unlisted medication (triamcinolone cmpd) 1 appl topical bid apply to leg for stasis dermatitis Allergies and Sensitivities: Ancef(hives) sulfa drugs(Rash) Protonix(Acute Renal Failure) Past Medical History: Problems: Arteriovenous graft stenosis Malfunction of arteriovenous dialysis fistula Venous aneurysm Weight disorder ESRD on hemodialysis Kidney stone Hypercholesterolemia HYPERTENSION Obesity Diabetes mellitus, type II, insulin dependent Seroma, postoperative History of osteoporosis History of renal calculi Anemia Hernia, ventral Open wound of abdominal wall, anterior End stage renal disease Recurrent ventral hernia OBJECTIVE Vitals: Last Updated 10/26/24 15:16 Date Temp BP Location Pulse RR SpO2 Pain 10/26/24 118/66 Left Arm 83 92 08/24/24 18 0 01/15/24 0 Vital Signs are the last 3 documented. No Orthostatic Data Available Height and Weight: Last Updated 07/12/15 08:40 Date BMI Wt(kg) Wt(lb) Method Ht(cm) (ft-in) Method 07/12/15 41.38 116.8 257 Patient stated 168 5-6 Patient stated 11/23/14 41.38 116.8 257 168 5-6 10/26/14 41.49 117.1 258 168 5-6 Heights and Weights are the last 3 documented. Physical Exam Constitutional: In general patient is an obese, chronically ill-appearing elderly female in no distress. She is alert and oriented any focal deficits. Her right arm surgical incision is clean dry and intact with xavier. These were removed without difficulty or wound dehiscence. She has an excellent thrill and bruit throughout the AV fistula. Her right radial pulse is +2. Her fingers demonstrate brisk capillary refill. Her right arm demonstrates no edema. ASSESSMENT: _ PLAN: _ 1 ) _status post right upper arm AV fistula revision Patient is overall doing well since her recent procedure. Her fistula has an excellent thrill and bruit throughout, and per patient she is running well at hemodialysis. Upon looking at her fistula, it does appear that she has some puncture sites below her surgical incision which would be in the location of the ligated portion of her old AV fistula. We therefore used a marker to cross this area off in order to assist with cannulation, as this area will no longer be functional for access. At this point we will see the patient back on an as-needed basis. She will call with any other questions or concerns. She is agreeable this plan. Thank you for letting us participate in the care of this patient. Immunizations Given and Recorded Vaccine Date Status Refusal Reason influenza virus vaccine, inactivated 08/03/10 Give n Medications Albuterol (Eqv-ProAir HFA) 90 mcg/inh inhalation aerosol TAKE 2 PUFFS BY MOUTH EVERY 6 HOURS NEEDED FOR WHEEZE Start Date: 10/02/23 Status: Ordered aspirin 81 mg oral tablet Start: 05/18/14 4:17:00 PM EDT, 1 tab, PO, Daily Start Date: 05/18/14 Status: Ordered betamethasone-clotrimazole topical Start: 05/18/14 4:19:00 PM EDT, topical, bid, topically as needed Start Date: 05/18/14 Status: Ordered cinacalcet 90 mg oral tablet TAKE 1 TABLET BY MOUTH EVERY DAY WITH SUPPER Start Date: 10/02/23 Status: Ordered citalopram 20 mg oral tablet TAKE 1 TABLET BY MOUTH EVERY DAY Start Date: 10/02/23 Status: Ordered clobetasol 0.05% topical cream Start: 07/12/15 8:56:00 AM EDT, 1 appl, topical, bid, Disp# 60 g, Refills: 1, apply to legs until clear for stasis dermatitiis, Pharmacy: [facility]/pharmacy #[id number] Start Date: 07/12/15 Stop Date: 08/09/15 Status: Ordered Colace 100 mg oral capsule Start: 05/18/14 4:19:00 PM EDT, 2 cap, PO, Daily, PRN: as needed for constipation Start Date: 05/18/14 Status: Ordered ferrous sulfate 325 mg (65 mg elemental iron) oral tablet Start: 12/31/12 1:32:00 PM EDT, 1 tab, PO, Daily Start Date: 12/31/12 Status: Ordered gabapentin 100 mg oral capsule TAKE 1 CAPSULE BY MOUTH DAILY + 1 DOSE EXTRA AFTER DIALYSIS EVERY 3 DAYS. Start Date: 10/02/23 Status: Ordered lanthanum 750 mg oral tablet, chewable CHEW AND SWALLOW 1 TABLET THREE TIMES A DAY WITH MEALS Start Date: 10/02/23 Status: Ordered oxyCODONE 15 mg oral tablet Start: 10/02/23 11:37:00 AM EST, Refills: 0 Start Date: 10/02/23 Status: Ordered Renal Caps oral capsule Start: 04/01/13 1:52:00 PM EDT, 1 cap, PO, Daily Start Date: 04/01/13 Status: Ordered rOPINIRole 2 mg oral tablet Start: 10/02/23 11:37:00 AM EST, 1 tab, PO, Daily Start Date: 10/02/23 Status: Ordered Senokot Extra 8.6 mg oral tablet Start: 05/18/14 4:21:00 PM EDT, 1 tab, PO, Daily, PRN: as needed for constipation Start Date: 05/18/14 Status: Ordered triamcinolone cmpd Start: 05/18/14 4:33:00 PM EDT, triamcinolone cmpd, eRx Product Type: Compound, 1 appl, topical, bid, Disp# 120 g, Refills: 1, apply to leg for stasis dermatitis, Note to Pharmacy: mix equal parts triamcinolone 0.1% cream and triamcinolone 0.1% ointment, Pharmacy [id number] Start Date: 05/18/14 Stop Date: 06/29/14 Status: Ordered Trulicity Pen 0.75 mg/0.5 mL subcutaneous solution INJECT UNDER THE SKIN 0.75 MG ONCE A WEEK . Start Date: 10/02/23 Status: Ordered Zocor Start: 06/21/08 5:25:32 AM EDT, 20 mg =, PO, qAM, Refills: 0, current medication from another provider Start Date: 06/21/08 Status: Ordered Mental Status 10/26/24 Barriers to Learning one year None evide nt Mandatory Health Literacy Documentation Yes Health Literacy Communication Barriers N ever Primary Language Macedonian Problem List Condition Confirmation Course Effective Dates Status Health Status Informant Anemia Confirmed Active Venous aneurysm Confirmed Active Arteriovenous graft stenosis Confirmed Active ESRD on hemodialysis Confirmed Active Diabetes mellitus, type II, insulin dependent Confirmed Active End stage renal disease Confirmed Active Hernia, ventral Confirmed Active History of osteoporosis Confirmed Active History of renal calculi Confirmed Active Hypercholesterolemia Confirmed Active HYPERTENSION Confirmed Active Kidney stone Confirmed Active Malfunction of arteriovenous dialysis fistula Confirmed Active Obesity Confirmed Active Open wound of abdominal wall, anterior Confirmed Active Recurrent ventral hernia Confirmed Active Seroma, postoperative Confirmed Active Weight disorder Confirmed Active Diagnosis Diagnosis Type Effective Dates Health Status Cl inical Service Informant End stage renal disease Discharge Diagnosis 10/26/24 Procedures Procedure Date Related Diagnosis Body Site Status RUE fistulogram without intervention 09/03/24 Completed RUE AVF REVISION W/ VENORRHAPHY 01/02/24 Completed RUE fistulogram w/o intervention 11/30/21 Completed AV FISTULA REVISION RUE with venorrhaphy 07/13/21 Completed RUE AVF revision with interp osition prosthetic graft 03/02/21 Completed Hip replacement 02/2015 Completed RUE BVT 09/26/14 Completed right AC basilic vein AVF 07/18/14 Completed Right wrist AVF 06/13/14 Completed Hip replacement 04/14/14 Completed LUE Prosthetic Upper Arm AVF 09/10/13 Completed LUE fistulagram w/o intervention 10/14/13 Completed LUE Ac Cephalic AVF wit Inte rposition Graft 05/03/13 Completed Permcath Exchange 04/09/13 Complet ed Arteriovenous fistula 1 01/06/13 C ompleted Irrigation and debridement o f abdominal seroma 06/12/11 Completed Ventral Hernia repair 04/04/11 Com pleted Cysto, Laser Lithotipsy 07/29/10 C ompleted Irrigation and debridement o f abdominal wall abscess 09/23/08 Completed Repair of Ventral Hernia, se paration of abdominal components 06/2008 Complete d Hernia repair 1999 Completed of twins 1992 Comple destin Left abdominal Wall Hernia r epair with mesh 1989 Completed Open Cholecystectomy 1986 Comp leted 1985 Completed kidney stent Completed 1LUE, AC Vital Signs Most recent to oldest [Reference Range]: 1 Heart Rate 83 bpm (10/26/24 3:16 PM) Blood Pressure 118/66mmHg (10/26/24 3:16 PM) BP Location # 1 Left Arm (10/26/24 3:16 PM) Social History Social History Type Response Tobacco Former smoker, Cigar ettes, 1 year(s). Started age 17 Years. Stopped age 18 Years. Smoking Status Never smoked cigaret gabino Sex Female Sex Representation Female (finding) [facility] Outpt Note * SUMMER Espinoza Lynn: PERFORM Event Display: [facility] Outpt Note Authored Date: [id number] [facility] OUTPATIENT NOTE Name: JAIMEE VENEGAS Patient Number: [id number] : 1955 Date of Service: 10/26/2024 Chief Complaint: _Follow-up for aVF HPI: _Ms. Magallon is an elderly female presents to Dr. Mena's vascular surgery clinic today for follow-up visit regarding her recent right upper arm AV fistula revision. Patient states they are continuing to use her fistula without any problems. She denies any complaints or concerns. Regarding her incision aside from the fact that the xavier have become "itchy." She states that the edema in her right arm has significantly improved and that she occasionally gets some tingling or pain in her right second finger, but nowhere else. Current Home Meds: (Last Updated 10/26 15:07) albuterol (Albuterol (Eqv-ProAir HFA) 90 mcg/inh inhalation aerosol) TAKE 2 PUFFS BY MOUTH EVERY 6HOURS NEEDED FOR WHEEZE aspirin (aspirin 81 mg oral tablet) 81 mg PO Daily betamethasone-clotrimazole topical topical bid topically as needed cinacalcet (cinacalcet 90 mg oral tablet) TAKE 1 TABLET BY MOUTH EVERY DAY WITH SUPPER citalopram (citalopram 20 mg oral tablet) TAKE 1 TABLET BY MOUTH EVERY DAY clobetasol topical (clobetasol 0.05% topical cream) 1 appl topical bid apply to legs until clear for stasis dermatitiis docusate (Colace 100 mg oral capsule) 200 mg PO Daily PRN: as needed for constipation dulaglutide (Trulicity Pen 0.75 mg/0.5 mL subcutaneous solution) INJECT UNDER THE SKIN 0.75 MG ONCEA WEEK . ferrous sulfate (ferrous sulfate 325 mg (65 mg elemental iron) oral tablet) 325 mg PO Daily gabapentin (gabapentin 100 mg oral capsule) TAKE 1 CAPSULE BY MOUTH DAILY + 1 DOSE EXTRA AFTER DIALYSIS EVERY 3 DAYS. lanthanum carbonate (lanthanum 750 mg oral tablet, chewable) CHEW AND SWALLOW 1 TABLET THREE TIMESA DAY WITH MEALS multivitamin (Renal Caps oral capsule) 1 cap PO Daily oxyCODONE (oxyCODONE 15 mg oral tablet) rOPINIRole (rOPINIRole 2 mg oral tablet) 2 mg PO Daily senna (Senokot Extra 8.6 mg oral tablet) 8.6 mg PO Daily PRN: as needed for constipation simvastatin (Zocor) 20 mg PO qAM unlisted medication (triamcinolone cmpd) 1 appl topical bid apply to leg for stasis dermatitis Allergies and Sensitivities: Ancef(hives) sulfa drugs(Rash) Protonix(Acute Renal Failure) Past Medical History: Problems: Arteriovenous graft stenosis Malfunction of arteriovenous dialysis fistula Venous aneurysm Weight disorder ESRD on hemodialysis Kidney stone Hypercholesterolemia HYPERTENSION Obesity Diabetes mellitus, type II, insulin dependent Seroma, postoperative History of osteoporosis History of renal calculi Anemia Hernia, ventral Open wound of abdominal wall, anterior End stage renal disease Recurrent ventral hernia OBJECTIVE Vitals: Last Updated 10/26/24 15:16 Date Temp BP Location Pulse RR SpO2 Pain 10/26/24 118/66 Left Arm 83 92 08/24/24 18 0 01/15/24 0 Vital Signs are the last 3 documented. No Orthostatic Data Available Height and Weight: Last Updated 07/12/15 08:40 Date BMI Wt(kg) Wt(lb) Method Ht(cm) (ft-in) Method 07/12/15 41.38 116.8 257 Patient stated 168 5-6 Patient stated 11/23/14 41.38 116.8 257 168 5-6 10/26/14 41.49 117.1 258 168 5-6 Heights and Weights are the last 3 documented. Physical Exam Constitutional: In general patient is an obese, chronically ill-appearing elderly female in no distress. She is alert and oriented any focal deficits. Her right arm surgical incision is clean dry andintact with xavier. These were removed without difficulty or wound dehiscence. She has an excellent thrill and bruit throughout the AV fistula. Her right radial pulse is +2. Her fingers demonstrate brisk capillary refill. Her right arm demonstrates no edema. ASSESSMENT: _ PLAN: _ 1 ) _status post right upper arm AV fistula revision Patient is overall doing well since her recent procedure. Her fistula has an excellent thrill and bruit throughout, and per patient she is running well at hemodialysis. Upon looking at her fistula, it does appear that she has some puncture sites below her surgical incision which would be in the location of the ligated portion of her old AV fistula. We therefore used a marker to cross this area off in order to assist with cannulation, as this area will no longer be functional for access. At thispoint we will see the patient back on an as-needed basis. She will call with any other questions orconcerns. She is agreeable this plan. Thank you for letting us participate in the care of this patient. Electronic Signature on File CC: Danette Perez MD [facility] [place] [id number] * CC: Willie Epstein MD [facility] [address] [facility] [place] [address] * Electronically Reviewed/Signed by: Marline Espinoza PA-C Author Signature Dt/Tm:10/26/2024 03:49 PM [facility] [place] [address] [facility], [address] [place]. [address] [place] Patient Care team information Care Team Personnel Name: MD Tete, Willie Tierney Position: Referring DIRECT Member Role: Primary Care Provider Address: [facility] [address] [place] [address] [place] Name: SUMMER Espinoza Lynn Position: Physician Signaler Exempt - Vasc Surg Member Role: Lifetime Relationship Address: [address] [address] [place] Name: MD Tohmas Jay D Position: Physician - Urology Member Role: Lifetime Relationship Address: [address] [place] [address] [place] Name: LORETTA Ortiz Bonnie D Position: Nurse Pract - Surgery MIS Member Role: Lifetime Relationship Address: [address] [place] [id number] Care Team Related Persons Name: JAMIL VENEGAS
--- OUTSIDE RECORDS SUMMARY | 2024-10-30 11:11 | External Medical Summary | Summary of Care ---
Author Name Unknown Organization [facility] Address [address] [place] [address] Phone [phone] Care Team Providers Care Operations Supervisor Chemical Cleaning Name Role Phone Willie Pizarro MD Primary Care Provider + Reason for Visit * Reason Onset Date Comments Medication Refill 10/04/2024 Status Check 10/05/2024 Encounter Details Date Type Department Care Team (Late st Contact Info) Description 10/04/2024 Refill [facility] [address] [facility] [place] [address] [facility]ro [facility] [address] [facility] [address] Allergies Active Allergy Reactions Criticality Noted Date Comments Cefazolin Unknown 11/15/2023 Other Reaction(s): CAN'T REMEMBER Methylprednisolone Other (Please comment) 07/28/2017 Side effects c/w med (sweating, heart racing etc) Nitrofurantoin Hives High 03/01/2024 Nitrofurantoin Monohyd Macro Hives 04/04/2014 Pantoprazole Unknown 11/15/2023 Other Reaction(s): CAN'T REMEMBER Sulfa Antibiotics Edema face/lips/tongue High 09/02/2008 documented as of this encounter (statuses as of 10/05/2024) Medications INSULIN SYRINGE-NEEDLE U-100 30G X 1/2" 1 ML MISCIndications: DM type 2, goal A1c below 7 Use as directed 1 Box of 100 11 10/04/20 08 Active RENAL MULTIVITAMIN/ZIN C PO TABS None Entered Active PostlingTOUCH ULTRASOFT LANCETS MISCIndications: Type 2 diabetes mellitus with hemoglobin A1c goal of less than 8.0% ([facility]ERLY [facility]) Use as directed 2 times a day. 1 Box Dosing Unit 11 01/17/20 17 Active cinacalcet (SENSIPAR) 30 MG Tablet Take 1 Tab by mouth daily with dinner. 90 Tab 3 11/07/19 18 Active Blood Glucose Monitoring Suppl ([employer] ULTRA 2) w/Device KIT Use to check blood sugar 2 times a day; E11.9. 1 Kit 10/22/19 20 Active Glucose Blood ([employer] ULTRA BLUE) STRP Use to check blood sugar 2 times a day; E11.9. 200 Box Dosing Unit 3 10/22/19 20 Active Albuterol Sulfate HFA 108 (90 Base) MCG/ACT Inhalation Aerosol SolutionIndicati ons:Bronchitis, complicated TAKE 2 PUFFS BY MOUTH EVERY 6 HOURS NEEDED FOR WHEEZE 18 g 04/17/20 23 Active Betamethasone Dipropionate 0.05 % External OintmentIndicati [...] AT BEDTIME 90 Tablet 1 04/30/20 24 Active Gabapentin 100 MG Oral Capsule (Neurontin)Indic [...] A1c goal of less than 8.0% ([facility]) INJECT UNDER THE SKIN 0.75 MG ONCE [...] WHEN FLARING 454 g 09/06/20 24 Active oxyCODONE HCl 15 MG Oral Tablet (Roxicodone) Take 1 Tablet by mouth every 8 hours as needed for moderate or severe pain 90 Tablet 10/05/20 24 Active oxyCODONE HCl 15 MG Oral Tablet (Roxicodone) Take 1 Tablet by mouth every 8 hours as needed for Pain 90 Tablet 09/06/2024 12:59 PM EST 09/02/20 24 024 Discontin ued(Refil l) documented as of this encounter (statuses as of 10/05/2024) Active Problems Problem Noted Date Diagnosed Date [...] adult exam 08/04/2019 Overview (03/04/2024): 03/12 EGD [facility]-normal esoph, gastritis. Small hiatal hernia. Gastric 10mm diverticula 01/09 DEXA +osteoporosis. NEED discuss. 11/10 colon +tubular adenomas. 04/09 mult compression fractures. 05/2018 many polyps Therapeutic opioid induced constipation 08/04/20 ESRD on dialysis 09/08/2016 Overview (02/26/2021): 03/05 HCP forms given-wants . NEEDS further Living will 2017 consider transplant needs 20lb -HD [place] [facility]? T,R, S. Since January 2013. Spondylolisthesis [...] as of this encounter (statuses as of 10/05/2024) Resolved Problems Problem Noted Date Diagnosed Date Resolved Date Thoracic compression fracture 04/09/2021 04/13/2021 Overview (04/09/2021): Mult levels 04/09 CT [facility] + lumbar Respiratory symptoms 01/08/2020 021 Fever of unknown origin (FUO) 01/07/2020 02/26/2021 Respiratory infection 01/07/20202020 Cellulitis 06/28/2016 09/08/2016 Abnormal vaginal bleeding 02/12/2016 Cellulitis 02/07/2016 09/08/2016 UTI (urinary tract infection), bacterial 04/19/2014 05/02/2014 Hypotension 04/15/2014 05/02/2014 Compression of lumbar vertebra 02/03/2013 06/07/2021 Overview (04/09/2021): Mult levels noted 04/09 [facility] [...] 08/25/200909/06 Overview (08/25/2009): Modified 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 jail current use of ant icoagulant therapy 04/19/2009 [...] s/p B/L stents Sees Dr. 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 (5 years old or older) Answer Date of Assessment Author No 01/07/2020 6:50 PM KAVEHT Moriah Coughlin RN * Do you have [...] encounter Miscellaneous Notes * Telephone Encounter - Isac Garber, poker machine attendant - 10/05/2024 3:22 PM EST Pt calling to check status of refill . Informed pt that RX is available at their pharmacy. Pt verbalized understanding and stated they will check with their pharmacy regarding this medication. Thank you, Isac Garber Shoe Repairer Helper I [facility] 10/05/2024,3:22 PM * Telephone Encounter - Willie Pizarro MD - 10/05/2024 11:59 AM EST Signed Prescriptions: Disp Refills oxyCODONE HCl 15 MG Oral Tablet (Roxicodon*90 Tab*0 Sig: Take 1 Tablet by mouth every 8 hours as needed for Pain, Moderate or Pain, Severe.Authorizing Provider: WILLIE PIZARRO * Telephone Encounter - Jael Perez [facility] - 10/05/2024 9:32 AM ESTPending Prescriptions: Disp Refills oxyCODONE HCl 15 MG Oral Tablet (Roxicodon*90 Tab*0 Sig: Take 1 Tablet by mouth every 8 hours as needed for Pain, Moderate or Pain, Severe. * Telephone Encounter - Jael Perez [facility] - 10/05/2024 9:31 AM EST I have reviewed the patients controlled substance dispensing history in the Prescription Drug Monitoring Program in compliance with the [facility] regulations before prescribing a controlled substance. PDMP checked on 10/05/2024. Pending Prescriptions: Disp Refills oxyCODONE HCl 15 MG Oral Tablet (Roxicodo*90 Tab*0 Sig: Take 1 Tablet by mouth every 8 hours as needed for Pain, Moderate or Pain, Severe. Last Visit: 08/03/2024 (in office), 01/21/2024 (telemedicine) Next Visit: Visit date not found Date medication was last filled: 09/06/24 Date medication is due for refill: 10/05/24 Pharmacy: [facility] Is this request for a controlled substance? Yes and Urine Drug Screen was completed Toxicology results: Results for orders placed or performed in visit on 08/05/24 PAIN MANAGEMENT DRUG PANEL, URINE W/ INTERPRETATION [...] Positive (A) Valid Interpretation Normal Creatinine, U 25 Narrative Cutoff Concentrations: Drug Level Amphetamines 500 [...] Results Review. Please approve if appropriate. Thanks, Jael Perez, PharmD Clinical Pharmacist [facility] [phone] 10/05/2024 9:31 AM * Telephone Encounter - Nancy Mallory CPhT - 10/04/2024 9:25 AM EST Pt stated if Pharmacy does not have med in stock please reach out to Pt [phone]. Pt will like to vegetable picker med at Pharmacy on 10/06/24 Did you pend patient's preferred pharmacy and medication before forwarding?yes Pharmacy: [facility] Pending Prescriptions: Disp Refills oxyCODONE HCl 15 MG Oral Tablet (Roxicodo*90 Tab*0 Sig: Take 1 Tablet by mouth every 8 hours as needed for Pain, Moderate or Pain, Severe. Last Visit: 08/03/2024 (in office), 01/21/2024 (telemedicine) Next Visit: Visit date not found If no future appointments scheduled, and last appointment is greater than a year ago, please schedule patient for a follow-up appointment Last date the medication was ordered: 09.02.24 Is this request for a controlled substance?Yes, What was the last refill date 09/02/24 w/ quantity 90 and dosage 15 and Urine Drug Screen was completed Urine Drug Screen: Results for orders placed or performed in visit on 08/05/24 PAIN MANAGEMENT DRUG PANEL, URINE W/ INTERPRETATION [...] Positive (A) Valid Interpretation Normal Creatinine, U 25 Narrative Cutoff Concentrations: Drug Level Amphetamines 500 [...] 12:00 AM TSH 0.47 12/06/2015 10:27 AM LDL 35 05/23/2022 11:56 AM LDL 25 03/23/2018 11:11 AM LDL NOT APPLICABLE 03/23/2018 11:11 AM LDLCALC 27 02/26/2021 12:00 AM ALT 21 05/23/2022 11:56 AM ALT 20 04/10/2017 12:00 AM ALT 13 12/06/2015 10:27 AM HGBA1C 4.5 08/05/2024 12:00 PM HGBA1C 5.4 02/26/2021 12:00 AM HGBA1C 5.2 01/08/2020 06:36 AM documented in this encounter Plan of Treatment Upcoming Encounters Date Type Department Care Team (Late st Contact Info) Description 10/22/2024 10:00 AM EST Office Visit Pharmacy, [facility] [address] [place] [address] [place] [address] [address] [place] [address] 05/23/2025 3:00 PM EDT Office Visit Dermatology [address] [place] [address] Coco Ivan PA-C [address] [place] [address] [place] [address] 06/13/2025 11:00 AM EDT Cardiac Studies Cardiac Studies, [facility] [address] [place] [address] 07/04/2025 4:00 PM EDT Office Visit Cardiology, [facility] [address] [address] Bandar Avila MD [address] [place] [address] Scheduled Procedures Name Priority Associated Diagnoses Date/Ti [...] this encounter Medical Devices Implanted Type Area Electro Mechanical Technician Device Identifier Shelf Expiration Date Model / Serial / Lot Cement Antibiotic Bone - [id number] Implanted:Qty: 3 on 04/28/2012 at [facility] Right: Hip VERONICA : [employer] 11/19/2013 6197-9-010 / / [id number] Prostalac Acetabular Cup Implanted:Qty: 1 on 04/28/2012 at [facility] Right: Hip SUBHA & SUBHA DEPUY 05/19/2017 1541-42-320 / / [id number] Prostalac Hip Stem Size 105mm Std Offset Implanted:Qty: 1 on 04/28/2012 at [facility] [place] [facility] Right: Hip SUBHA & SUBHA DEPUY 10/19/2021 1541-01-000 / / [id number] Description:Prostalac Hip St em Size 105mm Offset (Depuy) Ball Artic Wiliam Brn 32 Plus5 - [id number] Implanted:Qty: 1 on 04/28/2012 at [facility] [place] [facility] Right: Hip JNJ : [employer] 10/19/2016 [id number] / / [id number] Rest Mod Prox Cone Body 23 +11 - [id number] Implanted:Qty: 1 on 04/14/2014 at [facility] [place] Right: Hip [employer]ICA : [employer] 10/19/2018 6276-1-123 / / [id number] Head Fem 28mm - [id number] Implanted:Qty: 1 on 04/14/2014 at [facility] Right: Hip [employer]ICA : [employer] 08/19/2018 6570-0-228 / / [id number] Insert 28mm - [id number] Implanted:Qty: 1 on 04/14/2014 at [facility] Right: Hip [employer]ICA : [employer] 02/16/2019 1236-2-848 / / [id number] Cable/Sle Beaded D/M 20 Vit - [id number] Implanted:Qty: 1 on 04/14/2014 at [facility] Right: Hip [employer]ICA : [employer] 10/19/2017 6704-0-520 / / [id number] Cable/Sle Beaded D/M 20 Vit - [id number] Implanted:Qty: 1 on 04/14/2014 at [facility] Right: Hip VERONICA : [employer] 10/19/2017 6704-0-520 / / [id number] Tritanium Revision Acetabular - [id number] Implanted:Qty: 1 on 04/14/2014 at [facility] Right: Hip VER[employer]ICA : OR[employer] 05/19/2018 [id number] / / [id number] Screw Bone Osteolock 24 - [id number] Implanted:Qty: 1 on 04/14/2014 at [facility] Right: Hip [employer]ICA : [employer] 02/16/2019 5260-5-024 / / [id number] Screw Bone Osteolock 35 - [id number] Implanted:Qty: 1 on 04/14/2014 at [facility] Right: Hip [employer]ICA : [employer] 03/19/2017 5260-5-035 / / [id number] Liner 42mm - [id number] Implanted:Qty: 1 on 04/14/2014 at [facility] Right: Hip [employer]ICA : [employer] 11/19/2018 626-00-42E / / [id number] Hip S Mod Conical Dis 26b114 - [id number] Implanted:Qty: 1 on 04/14/2014 at [facility] Right: Hip [employer] : [employer] 12/17/2018 6276-7-017 / / [id number] documented as of this encounter Advance Directives [...] and were consensually agreed upon. Care Teams Operations Supervisor Chemical Cleaning Relationship Specialty Start Date End Date Willie Pizarro MD [address] [place] [address] PCP - General Family Medicine 11/22/16 documented as of this encounter
--- OUTSIDE RECORDS SUMMARY | 2024-10-30 11:11 | External Medical Summary | Summary of Care ---
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 Name Role Phone Willie Epstein MD Primary Care Provider + Reason for Visit * Reason Comments Dosage Adjustment In Person (Anticoag Cl inic) Pain * Evaluate & Treat - Unlimited Visits (Within 30 days (routine)) - Authorized Specialty Diagnoses / Procedures Referred By Ioana lopes Referred To Contact Pharmacist / Pharmacy Diagnoses MEDICATION USE AGREEMENT Neck pain, chronic Multiple joint pain Willie Epstein MD [address] [place] [address] Phone: tel: fax: Referral ID Status Reason Start Date Expiration Date Visits Requested Visits Authorized [id number] Authorized Specialty Services Required 4 01/30/2025 99 99 Encounter Details Date Type Department Care Team (Late st Contact Info) Description 10/22/2024 10:00 AM EST Office Visit Pharmacy, [facility] [address] [place] [address] [facility] [address] [place] [address] Type 2 diabetes mellitus with ESRD (end-stage renal disease) ([facility])* Allergies Active Allergy Reactions Criticality Noted Date Comments Cefazolin Unknown 11/15/2023 Other Reaction(s): CAN'T REMEMBER Methylprednisolone Other (Please comment) 07/28/2017 Side effects c/w med (sweating, heart racing etc) Nitrofurantoin Hives High 03/01/2024 Nitrofurantoin Monohyd Macro Hives 04/04/2014 Pantoprazole Unknown 11/15/2023 Other Reaction(s): CAN'T REMEMBER Sulfa Antibiotics Edema face/lips/tongue High 09/02/2008 documented as of this encounter (statuses as of 10/22/2024) Medications INSULIN SYRINGE-NEEDLE U-100 30G X 1/2" 1 ML MISCIndications: DM type 2, goal A1c below 7 Use as directed 1 Box of 100 11 8 Active RENAL MULTIVITAMIN/ZIN C PO TABS None Entered Active ONETOUCH ULTRASOFT LANCETS MISCIndications: Type 2 diabetes mellitus with hemoglobin A1c goal of less than 8.0% ([facility]) Use as directed 2 times a day. 1 Box Dosing Unit 11 7 Active cinacalcet (SENSIPAR) 30 MG Tablet Take 1 Tab by mouth daily with dinner. 90 Tab 3 8 Active Blood Glucose Monitoring Suppl (The Orange ChefUCH ULTRA 2) w/Device KIT Use to check blood sugar 2 times a day; E11.9. 1 Kit 0 Active Glucose Blood (Reflexion HealthTOUCH ULTRA BLUE) STRP Use to check blood [...] goal of less than 8.0% ([facility]) INJECT UNDER THE SKIN 0.75 MG ONCE [...] as of this encounter (statuses as of 10/22/2024) Active Problems Problem Noted Date Diagnosed Date [...] adult exam 08/04/2019 Overview (03/04/2024): 03/12 EGD [facility]-normal esoph, gastritis. Small hiatal hernia. Gastric 10mm diverticula 01/09 DEXA +osteoporosis. NEED discuss. 11/10 colon +tubular adenomas. 04/09 mult compression fractures. 05/2018 many polyps Therapeutic opioid induced constipation 08/04/20 19 ESRD on dialysis 09/08/2016 Overview (02/26/2021): 03/05 HCP forms given-wants . NEEDS further Living will 2017 consider transplant needs 20lb -HD [place] [facility]? T,R, S. Since January 2013. Spondylolisthesis [...] as of this encounter (statuses as of 10/22/2024) Resolved Problems Problem Noted Date Diagnosed Date Resolved Date Thoracic compression fracture 04/09/2021 04/13/2021 Overview (04/09/2021): Mult levels 04/09 CT [facility] + lumbar Respiratory symptoms 01/08/2020 021 Fever of unknown origin (FUO) 01/07/2020 02/26/2021 Respiratory infection 01/07/20202020 Cellulitis 06/28/2016 09/08/2016 Abnormal vaginal bleeding 02/12/2016 Cellulitis 02/07/2016 09/08/2016 UTI (urinary tract infection), bacterial 04/19/2014 05/02/2014 Hypotension 04/15/2014 05/02/2014 Compression of lumbar vertebra 02/03/2013 06/07/2021 Overview (04/09/2021): Mult levels noted 04/09 [facility] CT also thoracic CKD (chronic kidney disease), [...] s/p B/L stents Sees Dr. 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 Medication Therapy Disease Management - Chronic Pain History of Presenting Illness This visit occurred in person. Meka Hess, identified by name and date of , is a 69 year old female presents to the [facility] for initial visit. Chief Complaint Patient presents with Dosage Adjustment In Person ([facility]) Pain History Current Pain Medications Oxycodone 15 mg q8hrs prn Gabapentin 100 mg daily plus 100 mg after dialysis *citalopram Interval History Notes has been on the oxycodone since at least 2012 Noticing a lot of breakthrough pain Notes her whole body is an issue with pain Notes both her rotator cuffs and her back as well, notes joint areas are the most painful Not noticing anything making it much better, laying down/elevating legs can help but sometimes not much relief with those Notes sitting for long durations, getting up/down, painful arm with surgery, had skin cancer surgery last year and still healing Notes has pain in her fingers Comorbidities Renal: Dialysis MWF Activity/Exercise Limited, uses a walker Functional Goal(s) QOL Medication Use Agreement: Yes Controlled Substance Compliance Monitoring Total Score for Opioid Risk Assessment Tool (BRQ): 0-2 points (Low Risk) Total Score for CAGE-AID: 0 points (Unlikely Problem) PDMP Reviewed (10/22/2024): I have reviewed the patient's controlled substance dispensing history in the Prescription Drug Monitoring Program in compliance with the [facility] regulations. History of Presenting Illness & Review of Systems Diagnosis: DDD/back pain Chronicity: Chronic Onset: More than a 1 year ago Frequency: Daily Aggravated by: A change in position and prolonged sitting Treatment(s) tried: Acetaminophen, anticonvulsants, antidepressants, heat, ice and opioids Problem List Reviewed and updated in the EHR during the visit Substance Use Reviewed and updated in the EHR during the visit Objective Imaging History Most recent answers to PEG-3 scale: PEG-3 Synopsis What number best describes your pain on average in the past week?: 6 (10/22/2024 10:22 AM) What number best describes how, during the past week, pain has interfered with your enjoyment of life?: 4 (10/22/2024 10:22 AM) What number best describes how, during the past week, pain has interfered with your general activity?: 4 (10/22/2024 10:22 AM) PEG Pain Total Score: 4.67 (10/22/2024 10:22 AM) Last Urine Toxicology Screening Results for orders placed or performed in [...] results can be found in Results Review. Creatinine Clearance: Creatinine clearance cannot be calculated (Patient's most recent lab result is older than the maximum 180 days allowed.) Creatinine Results: Recent Labs Units 04/02/23 1209 CREATININE - [facility] mg/dL 4.3* Hepatic Function (ALT): No results for input(s): "ALT" in the last 07709 hours. Comprehensive Metabolic Panel Results: Results for orders placed or performed in visit on 05/23/22 COMPREHENSIVE METABOLIC PANEL Result Value Ref Range BUN 12 6 - 20 mg/dL CREATININE 2.4 (H) 0.5 - 1.0 mg/dL EGFR 22 (L) >=60 mL/min SODIUM 142 135 - 146 mmol/L POTASSIUM 4.3 3.5 - 5.1 mmol/L CHLORIDE 99 98 - 107 mmol/L CO2 30 22 - 32 mmol/L ANION GAP 13 7 - 15 mmol/L GLUCOSE 137 (H) 70 - 120 mg/dL Albumin 3.9 3.8 - 5.0 g/dL AST 24 10 - 35 U/L Alkaline Phosphatase 108 35 - 130 U/L Bilirubin, Total 0.4 <=1.2 mg/dL CALCIUM 8.9 8.4 - 10.2 mg/dL Protein 7.1 6.0 - 8.3 g/dL ALT 21 10 - 35 U/L Assessment & Plan Patient aware MTM is a clinical pharmacist visit, with focus on medication options for current diagnoses referred by Primary Care Provider for review and optimization. The focus of this visit is: Medication optimization. Current regimen reviewed, patient is: Adherent to regimen. Treatment Options Recommending rotation of opioids due to tolerance from >10 years of oxycodone, limited in terms of opioid choices due to dialysis, recommending either hydromorphone or rotation to butrans Patient agreeable with butrans rotation Treatment Concerns Tolerance with opioid Dialysis considerations Education Provided - Patient educated on mechanism, time to efficacy and potential adverse effects of medication regimen Discussed moa, ae and application sites for butrans Recommendations START: Butrans 10 mcg/hour every 7 days continue oxycodone 15 mg TID prn for 7 days after starting patch and then stop Meka verbalized understanding of the plan. Contact clinic with any issues. Visit date not found I spent a total of 40-54 minutes (exact time 45 mins) on the date of service in preparation, delivery, and documentation of the care provided to Meka Hess excluding any time spent in the performance of separately billed services or time spent by another provider/QHP. Arlene Elise [facility] Clinical Pharmacist - Head Of Digital Medication Therapy Management Clinic 10/22/2024 - 10:23 AM documented in this encounter Plan of Treatment Upcoming Encounters Date Type Department Care Team (Late st Contact Info) Description 12/15/2024 11:00 AM EST Office Visit Pharmacy, [facility] [address] [address] [facility] [address] [place] [address] 03/22/2025 1:40 PM EDT Office Visit Family Practice [facility] [address] [address] Willie Epstein MD [address] [place] [address] 05/23/2025 3:00 PM EDT Office Visit Dermatology [address] [place] [address] Coco Ivan PA-C [address] [place] [address] [place] [address] 06/13/2025 11:00 AM EDT Cardiac Studies Cardiac Studies, [facility] [address] [facility] [place] [address] 07/04/2025 4:00 PM EDT Office Visit [facility], [facility] [place] [address] Bandar Avila MD [address] [place] [address] Scheduled Procedures Name Priority Associated Diagnoses Date/Ti me COLONOSCOPY FLEXIBLE PROXIMAL DIAGNOSTIC Recall History of colon polyps Scheduled Referrals Name Type Priority Associated Diagnoses Orde r Schedule PHARMACIST MEDS THERAPY MGMT REFERRAL OP Referral Within 30 days (routine) MEDICATION USE AGREEMENT Neck pain, chronic Multiple joint pain Ordered: 08/03/2024 Health Maintenance Due Date Last Done Comments [...] this encounter Medical Devices Implanted Type Area Refrigerator Tester Device Identifier Shelf Expiration Date Model / Serial / Lot Cement Antibiotic Bone - [id number] Implanted:Qty: 3 on 04/28/2012 [place] [facility]: Hip VERONICA : ORTHOPAEDICS 11/19/2013 6197-9-010 / / [id number] Prostalac Acetabular Cup Implanted:Qty: 1 on 04/28/2012 at [place] [facility] Right: Hip SUBHA & SUBHA DEPUY 05/19/2017 1541-42-320 / / [id number] Prostalac Hip Stem Size 105mm Std Offset Implanted:Qty: 1 on 04/28/2012 at [place] [facility] Right: Hip SUBHA & SUBHA DEPUY 10/19/2021 1541-01-000 / / [id number] Description:Prostalac Hip St em Size 105mm Offset (Depuy) Ball Artic Wiliam Brn 32 Plus5 - [id number] Implanted:Qty: 1 on 04/28/2012 at [place] [facility] [place] [place]: Hip JNJ : DEPUY ORTHOPAEDICS 10/19/2016 [id number] / / [id number] Rest Mod Prox Cone Body 23 +11 - [id number] Implanted:Qty: 1 on 04/14/2014 at [place] [facility] [place]: Hip VERONICA : ORTHOPAEDICS 10/19/2018 6276-1-123 / / [id number] Head Fem 28mm - [id number] Implanted:Qty: 1 on 04/14/2014 at [facility] Right: Hip VERONICA : ORTHOPAEDICS 08/19/2018 6570-0-228 / / [id number] Insert 28mm - [id number] Implanted:Qty: 1 on 04/14/2014 at [facility] Right: Hip VERONICA : ORTHOPAEDICS 02/16/2019 1236-2-848 / / [id number] Cable/Sle Beaded D/M 20 Vit - [id number] Implanted:Qty: 1 on 04/14/2014 at [facility] Right: Hip VERONICA : ORTHOPAEDICS 10/19/2017 6704-0-520 / / [id number] Cable/Sle Beaded D/M 20 Vit - [id number] Implanted:Qty: 1 on 04/14/2014 at [facility] Right: Hip VERONICA : ORTHOPAEDICS 10/19/2017 6704-0-520 / / [id number] Tritanium Revision Acetabular - [id number] Implanted:Qty: 1 on 04/14/2014 at [facility] Right: Hip VERONICA : ORTHOPAEDICS 05/19/2018 509-02-56E / / [id number] Screw Bone Osteolock 24 - [id number] Implanted:Qty: 1 on 04/14/2014 at [facility] Right: Hip VERONICA : ORTHOPAEDICS 02/16/2019 5260-5-024 / / [id number] Screw Bone Osteolock 35 - [id number] Implanted:Qty: 1 on 04/14/2014 at [facility] Right: Hip VERONICA : ORTHOPAEDICS 03/19/2017 5260-5-035 / / [id number] Liner 42mm - [id number] Implanted:Qty: 1 on 04/14/2014 at [facility] Right: Hip VERONICA : ORTHOPAEDICS 11/19/2018 626-00-42E / / [id number] Hip S Mod Conical Dis 01h988 - [id number] Implanted:Qty: 1 on 04/14/2014 at [facility] Right: Hip VERONICA : ORTHOPAEDICS 12/17/2018 6276-7-017 / / [id number] documented as of this encounter Visit Diagnoses Diagnosis Type 2 diabetes mellitus with ESRD (end-stage renal disease) (HCC)- Primary Type II or unspecified type diabetes mellitus with renal manifestations, not stated as uncontrolled documented in this encounter Advance Directives * [...] and were consensually agreed upon. Care Teams [employer] Art Teacher Relationship Specialty Start Date End Date Willie Epstein MD [address] [place] [address] PCP - General Family Medicine 11/22/16 documented as of this encounter
--- OUTSIDE RECORDS SUMMARY | 2024-10-30 11:11 | External Medical Summary | Summary of Care ---
Author Name Unknown Organization [facility] Address [address] [place] [address] Phone [phone] Care Team Providers Care Feed Weigher Name Role Phone Willie Epstein MD Primary Care Provider + Reason for Visit * Reason Onset Date Comments New Med Request 10/22/2024 Encounter Details Date Type Department Care Team (Late st Contact Info) Description 10/22/2024 Telephone Pharmacy, [facility] [address] [facility] [place] [address] [facility] [place] [address] New Med Request Allergies Active Allergy Reactions Criticality Noted Date [...] than 8.0% ([facility]) Use as directed 2 times a day. 1 Box Dosing Unit 11 01/17/20 17 Active cinacalcet (SENSIPAR) 30 MG Tablet Take 1 Tab by mouth daily with dinner. 90 Tab 3 11/07/19 18 Active Blood Glucose Monitoring Suppl (Vusay ULTRA 2) w/Device KIT Use to check blood sugar 2 times a day; E11.9. 1 Kit 10/22/19 20 Active Glucose Blood (ParacosmTOUCH ULTRA BLUE) STRP Use to check blood [...] than 8.0% ([facility]) INJECT UNDER THE SKIN 0.75 MG ONCE [...] week. 4 Patch 3 10/22/19 25 Active oxyCODONE HCl 15 MG Oral Tablet (Roxicodone) Take 1 Tablet by mouth every 8 hours as needed for moderate or severe pain 90 Tablet 10/06/2024 11:18 AM EST 10/05/20 24 025 Discontin ued(Medic ation/Dos e Changed) documented as of this encounter (statuses as [...] adult exam 08/04/2019 Overview (03/04/2024): 03/12 EGD [facility]-normal esoph, gastritis. Small hiatal hernia. Gastric 10mm diverticula 01/09 DEXA +osteoporosis. NEED discuss. 11/10 colon +tubular adenomas. 04/09 mult compression fractures. 05/2018 many polyps Therapeutic opioid induced constipation 08/04/20 19 ESRD on dialysis 09/08/2016 Overview (02/26/2021): 03/05 HCP forms given-wants . NEEDS further Living will 2017 consider transplant needs 20lb -HD [place] [facility]? T,R, S. Since January 2013. Spondylolisthesis of lumbosacral region 02/04/20 13 Overview (02/03/2013): L5-S1 level with grade 1 anterolisthesis of L4 on L5 and grade 1 retrolisthesis of L5 on S1 Anemia in ESRD (end-stage renal disease) 12/30/ 013 MEDICATION USE AGREEMENT 11/12/2012 Overview (11/16/2012): [...] 04/13/2021 Overview (04/09/2021): Mult levels 04/09 CT [facility] + lumbar Respiratory symptoms 01/08/2020 021 Fever of unknown origin (FUO) 01/07/2020 02/26/2021 Respiratory infection 01/07/20202020 Cellulitis 06/28/2016 09/08/2016 Abnormal vaginal bleeding 02/12/2016 Cellulitis 02/07/2016 09/08/2016 UTI (urinary tract infection), bacterial 04/19/2014 05/02/2014 Hypotension 04/15/2014 05/02/2014 Compression of lumbar vertebra 02/03/2013 06/07/2021 Overview (04/09/2021): Mult levels noted 04/09 [facility] [...] 08/25/200909/06 Overview (08/25/2009): Modified 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 [facility] current use of ant icoagulant therapy 04/19/2009 [...] s/p B/L stents Sees Dr. 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 (5 years old or older) Answer Entry Date Author No 01/07/2020 6:50 PM EDMoriah Gomez RN documented in this encounter Miscellaneous Notes * Telephone Encounter - Shanelle Carlson LPN - 10/22/2024 3:58 PM EST Received prior auth approval via fax for patients Butrans prescription. Approval effective 08/22/24-10/21/25. * Telephone Encounter - Willie Epstein MD - 10/22/2024 10:54 AM EST "I have reviewed the patient's controlled substance dispensing history in the Prescription Drug Monitoring Program in compliance with the [facility] regulations before prescribing a controlled substance." * Telephone Encounter - Arlene Elise [facility] - 10/22/2024 10:35 AM EST Amado, Patient seen in [facility] today. Recommending rotation from oxycodone to Butrans. Prescription pended for your approval. Thank you, Arlene Elise, Pharm D, [facility] Clinical Pharmacist 10/22/2024, 10:35 AM documented in this encounter Plan of Treatment Upcoming Encounters Date Type Department Care Team (Late st Contact Info) Description 12/15/2024 11:00 AM EST Office Visit Pharmacy, [facility] [address] [address] [facility] [address] [place] [address] 03/22/2025 1:40 PM EDT Office Visit Family Practice [facility] [address] [place] [address] Willie Epstein MD [address] [place] [address] 05/23/2025 3:00 PM EDT Office Visit Dermatology [address] [place] [address] Coco Ivan PA-C [address] [place] [address] [place] [address] 06/13/2025 11:00 AM EDT Cardiac Studies Cardiac Studies, [facility] [address] [place] [address] 07/04/2025 4:00 PM EDT Office Visit Cardiology, [facility] [address] [place] [address] Bandar Avila MD [address] [place] [address] Scheduled Procedures Name Priority Associated Diagnoses Date/Ti [...] this encounter Medical Devices Implanted Type Area Government Program Manager Device Identifier Shelf Expiration Date Model / Serial / Lot Cement Antibiotic Bone - [id number] [place]planted:Q[place]: 3 [place] [facility] [place] VERONICA : ORTHOPAEDICS 11/19/2013 6197-9-010 / / [id number] Prostalac Acetabular Cup Implanted:Qty: 1 on 04/28/2012 [place] [facility] [place] SUBHA & SUBHA DEPUY 05/19/2017 1541-42-320 / / [id number] Prostalac Hip Stem Size 105mm Std Offset Implanted:Qty: 1 on 04/28/2012 at [facility] Right: Hip SUBHA & SUBHA DEPUY 10/19/2021 1541-01-000 / / [id number] Description:Prostalac Hip St em Size 105mm Offset (Depuy) Ball Artic Wiliam Brn 32 Plus5 - [id number] Implanted:Qty: 1 on 04/28/2012 [place] [facility] [place]: Hip JNJ : DEPUY ORTHOPAEDICS 10/19/2016 [id number] / / [id number] Rest Mod Prox Cone Body 23 +11 - [id number] Implanted:Qty: 1 on 04/14/2014 at [facility] Right: Hip VERONICA : ORTHOPAEDICS 10/19/2018 6276-1-123 / / [id number] Head Fem 28mm - [id number] Implanted:Qty: 1 on 04[place]14[place]2014 [place] [facility] [place] VERONICA : ORTHOPAEDICS 08/19/2018 6570-0-228 / / [id number] Insert 28mm - [id number] Implanted:Qty: 1 on 04/14/2014 [place] [facility] [place]: Hip VERONICA : ORTHOPAEDICS 02/16/2019 1236-2-848 / / [id number] Cable/Sle Beaded D/M 20 Vit - [id number] Implanted:Qty: 1 on 04/14/2014 [place] [facility] [place]: Hip VERONICA : ORTHOPAEDICS 10/19/2017 6704-0-520 / / [id number] Cable/Sle Beaded D/M 20 Vit - [id number] Implanted:Qty: 1 on 04/14/2014 [place] [facility] [place]: Hip VERONICA : ORTHOPAEDICS 10/19/2017 6704-0-520 / / [id number] Tritanium Revision Acetabular - [id number] Implanted:Qty: 1 on 04/14/2014 at [facility] Right: Hip VERONICA : ORTHOPAEDICS 05/19/2018 509-02-56E / / [id number] Screw Bone Osteolock 24 - [id number] Implanted:Qty: 1 on 04/14/2014 [place] [facility] [place]: Hip VERONICA : ORTHOPAEDICS 02/16/2019 5260-5-024 / / [id number] Screw Bone Osteolock 35 - [id number] Implanted:Qty: 1 on 04/14/2014 at [facility] Right: Hip VERONICA : ORTHOPAEDICS 03/19/2017 5260-5-035 / / [id number] Liner 42mm - [id number] Implanted:Qty: 1 on 04/14/2014 [place] [facility] [place]: Hip VERONICA : ORTHOPAEDICS 11/19/2018 626-00-42E / / [id number] Hip S Mod Conical Dis 40n785 - [id number] Implanted:Qty: 1 on 04/14/2014 [place] [facility] [place]: Hip VERONICA : ORTHOPAEDICS 12/17/2018 6276-7-017 / / [id number] documented as of this encounter Advance Directives [...] and were consensually agreed upon. Care Teams Feed Weigher Relationship Specialty Start Date End Date Willie Epstein MD [address] [facility] [place] [address] PCP - General Family Medicine 11/22/16 documented as of this encounter
--- OUTSIDE RECORDS SUMMARY | 2024-10-30 11:11 | External Medical Summary | Summary of Care ---
Author Name Unknown Organization [facility] Address [address] [place] [address] Phone [phone] Care Team Providers Care Supervisor Paper Machine Name Role Phone Willie Epstein MD Primary Care Provider + Reason for Visit * Reason Onset Date Comments New Med Request 10/22/2024 Encounter Details Date Type Department Care Team (Late st Contact Info) Description 10/22/2024 Telephone Pharmacy, [facility] [address] [facility] [place] [address] [facility] [place] [address] New Med Request Allergies Active [...] A1c goal of less than 8.0% ([facility]) Use as directed 2 times a day. 1 Box Dosing Unit 11 01/17/20 17 Active cinacalcet (SENSIPAR) 30 MG Tablet Take 1 Tab by mouth daily with dinner. 90 Tab 3 11/07/19 18 Active Blood Glucose Monitoring Suppl (OANDA ULTRA 2) w/Device KIT Use to check blood sugar 2 times a day; E11.9. 1 Kit 10/22/19 20 Active Glucose Blood (TheraSimTOUCH ULTRA BLUE) STRP Use to check blood [...] A1c goal of less than 8.0% ([facility]) INJECT UNDER THE SKIN 0.75 MG ONCE [...] adult exam 08/04/2019 Overview (03/04/2024): 03/12 EGD [facility]-normal esoph, gastritis. Small hiatal hernia. Gastric 10mm diverticula 01/09 DEXA +osteoporosis. NEED discuss. 11/10 colon +tubular adenomas. 04/09 mult compression fractures. 05/2018 many polyps Therapeutic opioid induced constipation 08/04/20 19 ESRD on dialysis 09/08/2016 Overview (02/26/2021): 03/05 HCP forms given-wants . NEEDS further Living will 2017 consider transplant needs 20lb -HD [place] [facility]? T,R, S. Since January 2013. Spondylolisthesis [...] 04/13/2021 Overview (04/09/2021): Mult levels 04/09 CT [facility] + lumbar Respiratory symptoms 01/08/2020 021 Fever of unknown origin (FUO) 01/07/2020 02/26/2021 Respiratory infection 01/07/20202020 Cellulitis 06/28/2016 09/08/2016 Abnormal vaginal bleeding 02/12/2016 Cellulitis 02/07/2016 09/08/2016 UTI (urinary tract infection), bacterial 04/19/2014 05/02/2014 Hypotension 04/15/2014 05/02/2014 Compression of lumbar vertebra 02/03/2013 06/07/2021 Overview (04/09/2021): Mult levels noted 04/[address] [facility] [address] also thoracic CKD (chronic [...] 08/25/200909/06 Overview (08/25/2009): Modified 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 snf current use of ant icoagulant therapy 04/19/2009 [...] s/p B/L stents Sees Dr. 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 Recommending rotation from oxycodone to Butrans. Prescription pended for your approval. Thank you, Arlene Elise, Pharm D, [facility] Clinical Pharmacist 10/22/2024, 10:35 AM documented in this encounter Plan of Treatment Upcoming Encounters Date Type Department Care Team (Late st Contact Info) Description 12/15/2024 11:00 AM EST Office Visit Pharmacy, [facility] [address] [place] [address] [facility] [address] [place] [address] 03/22/2025 1:40 PM EDT Office Visit Family Practice [facility] [address] [place] [address] Willie Epstein MD [address] [place] [address] 05/23/2025 3:00 PM EDT Office Visit Dermatology [address] [place] [address] Coco Ivan PA-C [address] [place] [address] [place] [address] 06/13/2025 11:00 AM EDT Cardiac Studies Cardiac Studies, [facility] [address] [place] [address] 07/04/2025 4:00 PM EDT Office Visit Cardiology, [facility] [address] [place] [address] Bandar Avila MD [address] [place] [address] Scheduled Procedures Name Priority Associated Diagnoses Date/Ti [...] this encounter Medical Devices Implanted Type Area Supervisor Weaving Device Identifier Shelf Expiration Date Model / Serial / Lot Cement Antibiotic Bone - [id number] Implanted:Qty: 3 on 04/28/2012 [place] [facility] [place] Hip VERONICA : ORTHOPAEDICS 11/19/2013 6197-9-010 / / [id number] Prostalac Acetabular Cup Implanted:Qty: 1 on 04/28/2012 at [place] [facility] Right: Hip SUBHA & SUBHA DEPUY 05/19/2017 1541-42-320 / / [id number] Prostalac Hip Stem Size 105mm Std Offset Implanted:Qty: 1 on 04/28/2012 at [facility] Right: Hip SUBHA & SUBHA DEPUY 10/19/2021 1541-01-000 / / [id number] Description:Prostalac Hip St em Size 105mm Offset (Depuy) Ball Artic Wiliam Brn 32 Plus5 - [id number] Implanted:Qty: 1 on 04/28/2012 at [place] [facility] [place]: Hip JNJ : DEPUY ORTHOPAEDICS 10/19/2016 [id number] / / [id number] Rest Mod Prox Cone Body 23 +11 - [id number] Implanted:Qty: 1 on 04/14/2014 at [facility] Right: Hip VERONICA : ORTHOPAEDICS 10/19/2018 6276-1-123 / / [id number] Head Fem 28mm - [id number] Implanted:Qty: 1 on 04/14/2014 at [place] [facility] [place]: Hip VERONICA : ORTHOPAEDICS 08/19/2018 6570-0-228 / / [id number] Insert 28mm - [id number] Implanted:Qty: 1 on 04/14/2014 at [place] [facility] Right: Hip VERONICA : ORTHOPAEDICS 02/16/2019 1236-2-848 / / [id number] Cable/Sle Beaded D/M 20 Vit - [id number] Implanted:Qty: 1 on 04/14/2014 at [place] [facility] Right: Hip VERONICA : ORTHOPAEDICS 10/19/2017 6704-0-520 / / [id number] Cable/Sle Beaded D/M 20 Vit - [id number] Implanted:Qty: 1 on 04/14/2014 at [place] [facility] [place]: Hip VERONICA : ORTHOPAEDICS 10/19/2017 6704-0-520 / / [id number] Tritanium Revision Acetabular - [id number] Implanted:Qty: 1 on 04/14/2014 at [facility] Right: Hip VERONICA : ORTHOPAEDICS 05/19/2018 509-02-56E / / [id number] Screw Bone Osteolock 24 - [id number] Implanted:Qty: 1 on 04/14/2014 at [place] [facility] Right: Hip VERONICA : ORTHOPAEDICS 02/16/2019 5260-5-024 / / [id number] Screw Bone Osteolock 35 - [id number] Implanted:Qty: 1 on 04/14/2014 at [facility] Right: Hip VERONICA : ORTHOPAEDICS 03/19/2017 5260-5-035 / / [id number] Liner 42mm - [id number] Implanted:Qty: 1 on 04/14/2014 at [place] [facility] Right: Hip VERONICA : ORTHOPAEDICS 11/19/2018 626-00-42E / / [id number] Hip S Mod Conical Dis 69l585 - [id number] Implanted:Qty: 1 on 04/14/2014 at [place] [facility] [place]: Hip VERONICA : ORTHOPAEDICS 12/17/2018 6276-7-017 / / [id number] documented as of this encounter Advance Directives [...] and were consensually agreed upon. Care Teams Supervisor Paper Machine Relationship Specialty Start Date End Date Willie Epstein MD 132 [facility] [place] [address] PCP - General Family Medicine 11/22/16 documented as of this encounter
--- OUTSIDE RECORDS SUMMARY | 2024-10-30 11:11 | External Medical Summary | Summary of Care ---
Author Name Unknown Organization [facility] Address [address] [place] [address] Phone [phone] Care Team Providers Care Phototypesetter Operator Name Role Phone Willie Epstein MD Primary Care Provider + Reason for Visit * Reason Onset Date Comments New Med Request 10/22/2024 Encounter Details Date Type Department Care Team (Late st Contact Info) Description 10/22/2024 Telephone Pharmacy, [facility] 132 [facility] [place] [address] [facility] 21 [facility] [place] [address] New Med Request Allergies Active [...] goal of less than 8.0% ([facility]) Use as directed 2 times a day. 1 Box Dosing Unit 11 01/17/20 17 Active cinacalcet (SENSIPAR) 30 MG Tablet Take 1 Tab by mouth daily with dinner. 90 Tab 3 11/07/19 18 Active Blood Glucose Monitoring Suppl (FoodieBytes.com ULTRA 2) w/Device KIT Use to check blood sugar 2 times a day; E11.9. 1 Kit 10/22/19 20 Active Glucose Blood (Shanghai SFS Digital MediaTOUCH ULTRA BLUE) STRP Use to check blood [...] goal of less than 8.0% ([facility]) INJECT UNDER THE SKIN 0.75 MG [...] adult exam 08/04/2019 Overview (03/04/2024): 03/12 EGD [facility]-normal esoph, gastritis. Small hiatal hernia. Gastric 10mm diverticula 01/09 DEXA +osteoporosis. NEED discuss. 11/10 colon +tubular adenomas. 04/09 mult compression fractures. 05/2018 many polyps Therapeutic opioid induced constipation 08/04/20 19 ESRD on dialysis 09/08/2016 Overview (02/26/2021): 03/05 HCP forms given-wants . NEEDS further Living will 2017 consider transplant needs 20lb -HD [place] [facility]? T,R, S. Since January 2013. Spondylolisthesis [...] 04/13/2021 Overview (04/09/2021): Mult levels 04/09 CT [facility] + lumbar Respiratory symptoms 01/08/2020 021 Fever of unknown origin (FUO) 01/07/2020 02/26/2021 Respiratory infection 01/07/20202020 Cellulitis 06/28/2016 09/08/2016 Abnormal vaginal bleeding 02/12/2016 Cellulitis 02/07/2016 09/08/2016 UTI (urinary tract infection), bacterial 04/19/2014 05/02/2014 Hypotension 04/15/2014 05/02/2014 Compression of lumbar vertebra 02/03/2013 06/07/2021 Overview (04/09/2021): Mult levels noted 04/09 [facility] [...] 08/25/200909/06 Overview (08/25/2009): Modified 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 FDC current use of ant icoagulant therapy 04/19/2009 [...] s/p B/L stents Sees Dr. 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 (5 years old or older) Answer Entry Date Author No 01/07/2020 6:50 PM Moriah Harris RN documented in this encounter Miscellaneous Notes * Telephone Encounter - Willie Epstein MD - 10/22/2024 10:54 AM EST "I have reviewed the patient's controlled substance dispensing history in the Prescription Drug Monitoring Program in compliance with the [place] regulations before prescribing a controlled substance." * Telephone Encounter - Arlene Elise, [facility] - 10/22/2024 10:35 AM EST Lisalo, Patient seen in [facility] Pain today. Recommending rotation from oxycodone to Butrans. Prescription pended for your approval. Thank you, Arlene Elise, Pharm D, BCACP Clinical Pharmacist 10/22/2024, 10:35 AM documented in this encounter Plan of Treatment Upcoming Encounters Date Type Department Care Team (Late st Contact Info) Description 12/15/2024 11:00 AM EST Office Visit Pharmacy, [facility] [address] [place] [address] [facility] [address] [place] [address] 03/22/2025 1:40 PM EDT Office Visit Family Practice [facility] [address] [place] [address] Willie Epstein MD [address] [place] [address] 05/23/2025 3:00 PM EDT Office Visit Dermatology [address] [place] [address] Coco Ivan PA-C [address] [place] [address] [place] [address] 06/13/2025 11:00 AM EDT Cardiac Studies Cardiac Studies, [facility] 132 [facility] [place] [address] 07/04/2025 4:00 PM EDT Office Visit Cardiology, [facility] [address] [place] [address] Bandar Avila MD [address] [place] [address] Scheduled Procedures Name Priority Associated Diagnoses Date/Ti [...] this encounter Medical Devices Implanted Type Area Behavioral Health Associate Device Identifier Shelf Expiration Date Model / Serial / Lot Cement Antibiotic Bone - [id number] Implanted:Qty: 3 on 04/28/2012 [place] [facility] [place]: Hip VERONICA : ORTHOPAEDICS 11/19/2013 6197-9-010 / / [id number] Prostalac Acetabular Cup Implanted:Qty: 1 on 04/28/2012 at [facility] Right: Hip SUBHA & SUBHA DEPUY 05/19/2017 1541-42-320 / / [id number] Prostalac Hip Stem Size 105mm Std Offset Implanted:Qty: 1 on 04/28/2012 at [facility] Right: Hip SUBHA & SUBHA DEPUY 10/19/2021 1541-01-000 / / [id number] Description:Prostalac Hip St em Size 105mm Offset (Depuy) Ball Artic Wiliam Brn 32 Plus5 - [id number] Implanted:Qty: 1 on 04/28/2012 at [place] [facility] [place]: Hip JNJ : DEPUY ORTHOPAEDICS 10/19/2016 [id number] / / [id number] Rest Mod Prox Cone Body 23 +11 - [id number] Implanted:Qty: 1 on 04/14/2014 at [place] [facility] [place] Right: Hip VERONICA : ORTHOPAEDICS 10/19/2018 6276-1-123 / / [id number] Head Fem 28mm - [id number] Implanted:Qty: 1 on 04/14/2014 at [place] [facility] [place] Right: Hip VERONICA : ORTHOPAEDICS 08/19/2018 6570-0-228 / / [id number] Insert 28mm - [id number] Implanted:Qty: 1 on 04/14/2014 at [place] [facility] [place] Right: Hip VERONICA : ORTHOPAEDICS 02/16/2019 1236-2-848 / / [id number] Cable/Sle Beaded D/M 20 Vit - [id number] Implanted:Qty: 1 on 04/14/2014 at [facility] Right: Hip VERONICA : ORTHOPAEDICS 10/19/2017 6704-0-520 / / [id number] Cable/Sle Beaded D/M 20 Vit - [id number] Implanted:Qty: 1 on 04/14/2014 at [place] [facility] [place] Right: Hip VERONICA : ORTHOPAEDICS 10/19/2017 6704-0-520 / / [id number] Tritanium Revision Acetabular - [id number] Implanted:Qty: 1 on 04/14/2014 at [place] [facility] [place] Right: Hip VERONICA : ORTHOPAEDICS 05/19/2018 509-02-56E / / [id number] Screw Bone Osteolock 24 - [id number] Implanted:Qty: 1 on 04/14/2014 at [place] [facility] [place] Right: Hip VERONICA : ORTHOPAEDICS 02/16/2019 5260-5-024 / / [id number] Screw Bone Osteolock 35 - [id number] Implanted:Qty: 1 on 04/14/2014 at [place] [facility] [place] Right: Hip VERONICA : ORTHOPAEDICS 03/19/2017 5260-5-035 / / [id number] Liner 42mm - [id number] Implanted:Qty: 1 on 04/14/2014 at [place] [facility] [place] Right: Hip VERONICA : ORTHOPAEDICS 11/19/2018 626-00-42E / / [id number] Hip S Mod Conical Dis 67q622 - [id number] Implanted:Qty: 1 on 04/14/2014 at [place] [facility] [place] Right: Hip VERONICA : ORTHOPAEDICS 12/17/2018 6276-7-017 / / [id number] documented as of this encounter Advance Directives [...] and were consensually agreed upon. Care Teams Phototypesetter Operator Relationship Specialty Start Date End Date Willie Epstein MD [address] [place] [place] [address] PCP - General Family Medicine 11/22/16 documented as of this encounter
--- OUTSIDE RECORDS SUMMARY | 2024-10-30 11:11 | External Medical Summary | Summary of Care ---
Author Name Unknown Organization [facility] Address [address] [place] [address] Phone [phone] Care Team Providers Care Microstrategy Architect Name Role Phone Willie Epstein MD Primary Care Provider + Encounter Details Date Type Department Care Team (Late st Contact Info) Description 10/22/2024 Telephone Pharmacy, [facility] [address] [place] [address] [facility] [address] [place] [address] Allergies Active Allergy Reactions Criticality Noted Date [...] MULTIVITAMIN/ZIN C PO TABS None Entered Active Ocean Power TechnologiesTOUCH ULTRASOFT LANCETS MISCIndications: Type 2 diabetes mellitus with hemoglobin A1c goal of less than 8.0% ([facility]) Use as directed 2 times a day. 1 Box Dosing Unit 11 7 Active cinacalcet (SENSIPAR) 30 MG Tablet Take 1 Tab by mouth daily with dinner. 90 Tab 3 8 Active Blood Glucose Monitoring Suppl (Spriggle Kids ULTRA 2) w/Device KIT Use to check blood sugar 2 times a day; E11.9. 1 Kit 0 Active Glucose Blood (Ocean Power TechnologiesTOUCH ULTRA BLUE) STRP Use to check blood [...] hemoglobin A1c goal of less than 8.0% ([facility]) INJECT UNDER THE SKIN 0.75 [...] a week. 4 Patch 3 5 Active documented as of this encounter (statuses as of 10/22/2024) Active Problems Problem Noted Date Diagnosed Date Nonrheumatic aortic valve stenosis 09/20/2024 Nonrheumatic mitral valve regurgitation 09/20/20 24 PVD (peripheral vascular disease) 09/20/2024 Nonrheumatic mitral [...] adult exam 08/04/2019 Overview (03/04/2024): 03/12 EGD [facility]-normal esoph, gastritis. Small hiatal hernia. Gastric 10mm diverticula 01/09 DEXA +osteoporosis. NEED discuss. 11/10 colon +tubular adenomas. 04/09 mult compression fractures. 05/2018 many polyps Therapeutic opioid induced constipation 08/04/20 19 ESRD on dialysis 09/08/2016 Overview (02/26/2021): 03/05 HCP forms given-wants . NEEDS further Living will 2017 consider transplant needs 20lb -HD [place] [facility]? T,R, S. Since January 2013. Spondylolisthesis [...] 04/13/2021 Overview (04/09/2021): Mult levels 04/09 [facility] + lumbar Respiratory symptoms 01/08/2020 021 Fever of unknown origin (FUO) 01/07/2020 02/26/2021 Respiratory infection 01/07/20202020 Cellulitis 06/28/2016 09/08/2016 Abnormal vaginal bleeding 02/12/2016 Cellulitis 02/07/2016 09/08/2016 UTI (urinary tract infection), bacterial 04/19/2014 05/02/2014 Hypotension 04/15/2014 05/02/2014 Compression of lumbar vertebra 02/03/2013 06/07/2021 Overview (04/09/2021): Mult levels noted 04/09 [facility] CT also thoracic CKD (chronic kidney disease), [...] 08/25/200909/06 Overview (08/25/2009): Modified 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 assisted current use [...] s/p B/L stents Sees Dr. 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 Answer Date of Assessment Author No 01/07/2020 6:50 PM Moriah Harris RN * Are you blind or do [...] encounter Miscellaneous Notes * Telephone Encounter - Arlene Elise RP - 10/22/2024 11:17 AM EST PA submitted via [employer] for Butrans 10 mcg/hr patch. [place]: [id number] Arlene Elise, Pharm D, BCACP Clinical Pharmacist 10/22/2024, 11:17 AM * Telephone Encounter - Katherine Clinton RP - 10/22/2024 11:10 AM EST Good morning! Mamie will need a prior auth on the Buprenorphine 10mcg/hr transdermal patch. Insuranceinfo is below. Thank you!! Bin: [id number] Id: [id number] Pcn: MEDDPRIME Group: [id number] documented in this encounter Plan of Treatment Upcoming Encounters Date Type Department Care Team (Late st Contact Info) Description 12/15/2024 11:00 AM EST Office Visit Pharmacy, [facility] [address] [place] [address] [facility] [address] [place] [address] 03/22/2025 1:40 PM EDT Office Visit Family Practice [facility] [address] [place] [address] Willie Epstein MD [address] [place] [address] 05/23/2025 3:00 PM EDT Office Visit Dermatology [address] [place] [address] Coco Ivan PA-C [address] [place] [address] [place] [address] 06/13/2025 11:00 AM EDT Cardiac Studies Cardiac Studies, [facility] [address] [place] [address] 07/04/2025 4:00 PM EDT Office Visit Cardiology, [facility] [address] [place] [address] Bandar Avila MD [address] [place] [address] Scheduled Procedures Name Priority Associated Diagnoses Date/Ti [...] this encounter Medical Devices Implanted Type Area Automatic Toe Laster Device Identifier Shelf Expiration Date Model / Serial / Lot Cement Antibiotic Bone - [id number] Implanted:Qty: 3 on [place]2012 [place] [facility] [place] Hip VERONICA : ORTHOPAEDICS 11/19/2013 6197-9-010 / / [id number] Prostalac Acetabular Cup Implanted:Qty: 1 on 04/28/2012 at [facility] Right: Hip SUBHA & SUBHA DEPUY 05/19/2017 1541-42-320 / / [id number] Prostalac Hip Stem Size 105mm Std Offset Implanted:Qty: 1 on 04/28/2012 at [facility] Right: Hip SUBHA & SUBHA DEPUY 10/19/2021 1541-01-000 / / [id number] Description:Prostalac Hip St em Size 105mm Offset (Depuy) Ball Artic Wiliam Brn 32 Plus5 - [id number] Implanted:Qty: 1 on 04/28/2012 at [facility] Right: Hip JNJ : DEPUY ORTHOPAEDICS 10/19/2016 [id number] / / [id number] Rest Mod Prox Cone Body 23 +11 - [id number] Implanted:Qty: 1 on 04/14/2014 at [facility] Right: Hip VERONICA : ORTHOPAEDICS 10/19/2018 6276-1-123 / / [id number] Head Fem 28mm - [id number] Implanted:Qty: 1 on 04/14/2014 at [facility] Right: Hip VERONICA : ORTHOPAEDICS 08/19/2018 6570-0-228 / / [id number] Insert 28mm - [id number] Implanted:Qty: 1 on 04/14/2014 at [facility] Right: Hip VERONICA : ORTHOPAEDICS 02/16/2019 1236-2-848 / / [id number] Cable/Sle Beaded D/M 20 Vit - [id number] Implanted:Qty: 1 on 04/14/2014 at [facility] Right: Hip VERONICA : ORTHOPAEDICS 10/19/2017 6704-0-520 / / [id number] Cable/Sle Beaded D/M 20 Vit - [id number] Implanted:Qty: 1 on 04/14/2014 at [facility] Right: Hip VERONICA : ORTHOPAEDICS 10/19/2017 6704-0-520 / / [id number] Tritanium Revision Acetabular - [id number] Implanted:Qty: 1 on 04/14/2014 at [facility] Right: Hip VERONICA : ORTHOPAEDICS 05/19/2018 509-02-56E / / [id number] Screw Bone Osteolock 24 - [id number] Implanted:Qty: 1 on 04/14/2014 [place] [facility] [place]: Hip VERONICA : ORTHOPAEDICS 02/16/2019 5260-5-024 / / [id number] Screw Bone Osteolock 35 - [id number] Implanted:Qty: 1 on 04/14/2014 [place] [facility] [place] Right: Hip VERONICA : ORTHOPAEDICS 03/19/2017 5260-5-035 / / [id number] Liner 42mm - [id number] Implanted:Qty: 1 on 04/14/2014 [place] [facility] [place] Right: Hip VERONICA : ORTHOPAEDICS 11/19/2018 626-00-42E / / [id number] Hip S Mod Conical Dis 44u864 - [id number] Implanted:Qty: 1 on 04/14/2014 [place] [facility] [place]: Hip VERONICA : ORTHOPAEDICS 12/17/2018 6276-7-017 / / [id number] documented as of this encounter Advance Directives [...] and were consensually agreed upon. Care Teams Microstrategy Architect Relationship Specialty Start Date End Date Willie Epstein MD [address] [place] [address] PCP - General Family Medicine 11/22/16 documented as of this encounter
--- OUTSIDE RECORDS SUMMARY | 2024-10-30 11:11 | External Medical Summary | Summary of Care ---
Author Name Unknown Organization [facility] Address [address] [place] [address] Phone [phone] Care Team Providers Care Tax Professional Name Role Phone Willie Epstein MD Primary Care Provider + Reason for Visit * Reason Onset Date Comments FYI 10/22/2024 Encounter Details Date Type Department Care Team (Late st Contact Info) Description 10/22/2024 Telephone Family Practice [facility] [address] [place] [address] Willie Epstein MD [address] [place] [address] FY Allergies Active Allergy Reactions Criticality Noted Date [...] MULTIVITAMIN/ZIN C PO TABS None Entered Active Pets are family tooTOUCH ULTRASOFT LANCETS MISCIndications: Type 2 diabetes mellitus with hemoglobin A1c goal of less than 8.0% ([facility]) Use as directed 2 times a day. 1 Box Dosing Unit 11 7 Active cinacalcet (SENSIPAR) 30 MG Tablet Take 1 Tab by mouth daily with dinner. 90 Tab 3 8 Active Blood Glucose Monitoring Suppl (Eventable ULTRA 2) w/Device KIT Use to check blood sugar 2 times a day; E11.9. 1 Kit 0 Active Glucose Blood (DigiSat TechnologyUCH ULTRA BLUE) STRP Use to check blood [...] THEN WHEN FLARING 454 g 4 Active oxyCODONE HCl 15 MG Oral Tablet (Roxicodone) Take 1 Tablet by mouth every 8 hours as needed for moderate or severe pain 90 Tablet 10/06/2024 11:18 AM EST 4 Active documented as of this encounter [...] will 2017 consider transplant needs 20lb -HD [facility]? T,R, S. Since January 2013. Spondylolisthesis [...] s/p B/L stents Sees Dr. 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 [employer] Not on file Not on file [...] encounter Miscellaneous Notes * Telephone Encounter - Jo Ann Palacios CPhT - 10/22/2024 9:43 AM EST Reviewed directions for patients appt today Thank you, Jo Ann Palacios Machine Pan Greaser II [facility] ([facility]) (formerly Telepharmacy) 10/22/2024 9:44 AM documented in this encounter Plan of Treatment Upcoming Encounters Date Type Department Care Team (Late st Contact Info) Description 10/22/2024 10:00 AM EST Office Visit Pharmacy, [facility] [address] [facility] [place] [address] [facility] [address] [place] [address] Arrived 05/23/2025 3:00 PM EDT Office Visit Dermatology [address] [place] Coco Ivan PA-C [address] [place] [address] [place] [address] 06/13/2025 11:00 AM EDT Cardiac Studies Cardiac Studies, [facility] [address] [place] [address] 07/04/2025 4:00 PM EDT Office Visit Cardiology, [facility] [address] [place] [place] [address] Bandar Avila MD [address] [place] [address] Scheduled Procedures Name Priority Associated Diagnoses Date/Ti [...] this encounter Medical Devices Implanted Type Area Retail Loss Prevention Officer Device Identifier Shelf Expiration Date Model / Serial / Lot Cement Antibiotic Bone - [id number] Implanted:Qty: 3 on 04/28/2012 [place] [facility] [place] VERONICA : ORTHOPAEDICS 11/19/2013 6197-9-010 / / [id number] Prostalac Acetabular Cup Implanted:Qty: 1 on 04/28/2012 at [place] [facility] [place]: Hip SUBHA & SUBHA DEPUY 05/19/2017 1541-42-320 / / [id number] Prostalac Hip Stem Size 105mm Std Offset Implanted:Qty: 1 on 04/28/2012 at [place] [facility] [place]: Hip USBHA & SUBHA DEPUY 10/19/2021 1541-01-000 / / [id number] Description:Prostalac Hip St em Size 105mm Offset (Depuy) Ball Artic Wiliam Brn 32 Plus5 - [id number] Implanted:Qty: 1 on 04/28/2012 [place] [facility] [place]: Hip JNJ : DEPUY ORTHOPAEDICS 10/19/2016 [id number] / / [id number] Rest Mod Prox Cone Body 23 +11 - [id number] Implanted:Qty: 1 on 04/14/2014 at [place] [facility] [place]: Hip VERONICA : ORTHOPAEDICS 10/19/2018 6276-1-123 / / [id number] Head Fem 28mm - [id number] Implanted:Qty: 1 on 04/14/2014 at [facility] Right: Hip VERONICA : ORTHOPAEDICS 08/19/2018 6570-0-228 / / [id number] Insert 28mm - [id number] Implanted:Qty: 1 on 04/14/2014 at [facility] Right: Hip VERONICA : ORTHOPAEDICS 02/16/2019 1236-2-848 / / [id number] Cable/Sle Beaded D/M 20 Vit - [id number] Implanted:Qty: 1 on 04/14/2014 at [facility] Right: Hip VERONICA : ORTHOPAEDICS 10/19/2017 6704-0-520 / / [id number] Cable/Sle Beaded D/M 20 Vit - [id number] Implanted:Qty: 1 on 04/14/2014 at [facility] Right: Hip VERONICA : ORTHOPAEDICS 10/19/2017 6704-0-520 / / [id number] Tritanium Revision Acetabular - [id number] Implanted:Qty: 1 on 04/14/2014 at [facility] Right: Hip VERONICA : ORTHOPAEDICS 05/19/2018 509-02-56E / / [id number] Screw Bone Osteolock 24 - [id number] Implanted:Qty: 1 on 04/14/2014 at [facility] Right: Hip VERONICA : ORTHOPAEDICS 02/16/2019 5260-5-024 / / [id number] Screw Bone Osteolock 35 - [id number] Implanted:Qty: 1 on 04/14/2014 at [facility] Right: Hip VERONICA : ORTHOPAEDICS 03/19/2017 5260-5-035 / / [id number] Liner 42mm - [id number] Implanted:Qty: 1 on 04/14/2014 at [facility] Right: Hip VERONICA : ORTHOPAEDICS 11/19/2018 626-00-42E / / [id number] Hip S Mod Conical Dis 90l020 - [id number] Implanted:Qty: 1 on 04/14/2014 at [facility] Right: Hip VERONICA : ORTHOPAEDICS 12/17/2018 6276-7-017 / / [id number] documented as of this encounter Advance Directives [...] and were consensually agreed upon. Care Teams Tax Professional Relationship Specialty Start Date End Date Willie Epstein MD [address] [place] [address] PCP - General Family Medicine 11/22/16 documented as of this encounter
--- OUTSIDE RECORDS SUMMARY | 2024-10-30 11:12 | External Medical Summary | Summary of Care ---
Author Name Unknown Organization [facility] Address [address] [place] [address] Phone [phone] Care Team Providers Care Roller Operator Name Role Phone Willie Pizarro MD Primary Care Provider + Reason for Visit * Reason Onset Date Comments Medication Refill 10/04/2024 Encounter Details Date Type Department Care Team (Late st Contact Info) Description 10/04/2024 Refill Family Practice [facility] [address] [place] [address] Willie Pizarro MD [address] [place] [id number] Allergies Active Allergy Reactions Criticality Noted Date [...] goal of less than 8.0% ([facility]) Use as directed 2 times a day. 1 Box Dosing Unit 11 01/17/20 17 Active cinacalcet (SENSIPAR) 30 MG Tablet Take 1 Tab by mouth daily with dinner. 90 Tab 3 11/07/19 18 Active Blood Glucose Monitoring Suppl (Mojix ULTRA 2) w/Device KIT Use to check blood sugar 2 times a day; E11.9. 1 Kit 10/22/19 20 Active Glucose Blood (ViacoreUCH ULTRA BLUE) STRP Use to check blood [...] exam 08/04/2019 Overview (03/04/2024): 03/12 EGD [facility]-normal esoph, gastritis. Small hiatal hernia. Gastric 10mm diverticula 01/09 DEXA +osteoporosis. NEED discuss. 11/10 colon +tubular adenomas. 04/09 mult compression fractures. 05/2018 many polyps Therapeutic opioid induced constipation 08/04/20 19 ESRD on dialysis 09/08/2016 Overview (02/26/2021): 03/05 HCP forms given-wants . NEEDS further Living will 2017 consider transplant needs 20lb -HD [facility]? T,R, S. Since January 2013. Spondylolisthesis [...] Overview (04/09/2021): Mult levels 04/09 CT [facility] + lumbar Respiratory symptoms 01/08/2020 021 Fever of unknown origin (FUO) 01/07/2020 02/26/2021 Respiratory infection 01/07/20202020 Cellulitis 06/28/2016 09/08/2016 Abnormal vaginal bleeding 02/12/2016 Cellulitis 02/07/2016 09/08/2016 UTI (urinary tract infection), bacterial 04/19/2014 05/02/2014 Hypotension 04/15/2014 05/02/2014 Compression of lumbar vertebra 02/03/2013 06/07/2021 Overview (04/09/2021): Mult levels noted 04/09 [facility] [...] 08/25/200909/06 Overview (08/25/2009): Modified 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 half-way current use of ant icoagulant therapy 04/19/2009 [...] s/p B/L stents Sees Dr. 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 PDMP [...] medication is due for refill: 10/05/24 Pharmacy: [facility] Is this request for a controlled [...] PharmD Clinical Pharmacist [facility] [phone] 10/05/2024 9:31 AM * Telephone Encounter - Nancy Mallory CPhT - 10/04/2024 9:25 AM EST Pt stated if Pharmacy does not have med in stock please reach out to Pt [phone]. 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 at Pharmacy on 10/06/24 Did you pend patient's preferred pharmacy and medication before forwarding?yes Pharmacy: [facility] Pending Prescriptions: Disp Refills oxyCODONE HCl [...] 10/22/2024 10:00 AM EST Office Visit Pharmacy, [facility] [address] [facility] [place] [address] [facility] [address] [place] [address] 05/23/2025 3:00 PM EDT Office Visit Dermatology [address] [place] [address] Coco Ivan PA-C [address] [place] [address] [place] [address] 06/13/2025 11:00 AM EDT Cardiac Studies Cardiac Studies, [facility] [address] [facility] [place] [address] 07/04/2025 4:00 PM EDT Office Visit Cardiology, [facility] [address] [facility] [place] [address] Bandar Avila MD [address] [facility] [place] [address] Scheduled Procedures Name Priority Associated Diagnoses Date/Ti [...] this encounter Medical Devices Implanted Type Area Samples And Repairs Preparer Device Identifier Shelf Expiration Date Model / Serial / Lot Cement Antibiotic Bone - [id number] Implanted:Qty: 3 [place] [facility] [place] VERONICA : ORTHOPAEDICS 11/19/2013 6197-9-010 / / [id number] Prostalac Acetabular Cup Implanted:Qty: 1 on 04/28/2012 [place] [facility] [place] SUBHA & SUBHA DEPUY 05/19/2017 1541-42-320 / / [id number] Prostalac Hip Stem Size 105mm Std Offset Implanted:Qty: 1 on 04/28/2012 [place] [facility] [place] SUBHA & SUBHA DEPUY 10/19/2021 1541-01-000 / / [id number] Description:Prostalac Hip St em Size 105mm Offset (Depuy) Ball Artic Wiliam Brn 32 Plus5 - [id number] Implanted:Qty: 1 on 04[place]28/2012 [place] [facility] [place] JNJ : DEPUY ORTHOPAEDICS 10/19/2016 [id number] / / [id number] Rest Mod Prox Cone Body 23 +11 - [id number] Implanted:Qty: 1 on 04[place]14/2014 [place] [facility] [place] Hip VERONICA : ORTHOPAEDICS 10/19/2018 6276-1-123 / / [id number] Head Fem 28mm - [id number] Implanted:Qty: 1 on 04/14/2014 at [facility] Right: Hip VERONICA : ORTHOPAEDICS 08/19/2018 6570-0-228 / / [id number] Insert 28mm - [id number] Implanted:Qty: 1 on 04[place]14/2014 [place] [facility] [place] Hip VERONICA : ORTHOPAEDICS 02/16/2019 1236-2-848 / / [id number] Cable/Sle Beaded D/M 20 Vit - [id number] Implanted:Qty: 1 on 04/14/2014 at [facility] Right: Hip VERONICA : ORTHOPAEDICS 10/19/2017 6704-0-520 / / [id number] Cable/Sle Beaded D/M 20 Vit - [id number] Implanted:Qty: 1 on 04[place]14[place]2014 [place] [facility] [place] VERONICA : ORTHOPAEDICS 10/19/2017 6704-0-520 / / [id number] Tritanium Revision Acetabular - [id number] Implanted:Qty: 1 on 04/14/2014 at [facility] Right: Hip VERONICA : ORTHOPAEDICS 05/19/2018 509-02-56E / / [id number] Screw Bone Osteolock 24 - [id number] Implanted:Qty: 1 on 04[place]14/2014 [place] [facility] [place] Hip VERONICA : ORTHOPAEDICS 02/16/2019 5260-5-024 / / [id number] Screw Bone Osteolock 35 - [id number] Implanted:Qty: 1 on 04/14/2014 [place] [facility] [place]: Hip VERONICA : ORTHOPAEDICS 03/19/2017 5260-5-035 / / [id number] Liner 42mm - [id number] Implanted:Qty: 1 on 04/14/2014 at [facility] Right: Hip VERONICA : ORTHOPAEDICS 11/19/2018 626-00-42E / / [id number] Hip S Mod Conical Dis 33b781 - [id number] Implanted:Qty: 1 on 04/14/2014 [place] [facility] [place] Hip VERONICA : ORTHOPAEDICS 12/17/2018 6276-7-017 / / [id number] documented as of this encounter Advance Directives [...] and were consensually agreed upon. Care Teams Roller Operator Relationship Specialty Start Date End Date Willie Pizarro MD [address] [place] [address] PCP - General Family Medicine 11/22/16 documented as of this encounter
--- NOTE | 2024-10-30 11:31 | Emergency Department Note ---
Impression & Plan COVID-19, Acute hypoxemic respiratory failure, Generalized weakness, Pulmonary edema ED Provider Note HISTORY OF PRESENT ILLNESS: Patient is a 69-year-old female presenting with confusion, weakness and shortness of breath. Patient reportedly tested positive on a home COVID test 4 days ago. She started feeling unwell 3 days ago and did not go to her dialysis session secondary to her symptoms. She has had low-grade fevers at home. She went to dialysis today but started to get weak and confused with about an hour left in her session and and was sent to the emergency department. Patient does not wear any supplemental oxygen at baseline. Denies any DVT or PE history. She does still make urine and states that for the last few days she has been having the sensation that she needs to urinate but has been unable to. Denies any nausea or vomiting. Significant other at bedside reports that the patient seems more confused and lethargic than normal. Patient reports she just feels unwell. Denies any chest pain. She does report feeling short of breath. ROS: as above PHYSICAL EXAM: Constitutional: Patient appears in no acute distress. HENT: Head: Normocephalic and atraumatic. Eyes: EOMI, PERRL Mouth/Throat: Mucous membranes moist. Neck: Trachea midline. Neck supple. Cardiovascular: Tachycardic with regular rhythm. No murmurs, rubs or gallops. Intact distal pulses. Pulmonary/Chest: Conversationally dyspneic. Coarse breath sounds bilaterally. On 2 L nasal cannula. Abdominal: Abdomen soft, no tenderness, rebound or guarding. Musculoskeletal: No edema, tenderness or deformity noted. Skin: Warm and dry. No rash, erythema, pallor or cyanosis Psychiatric: Appropriate mood and affect for situation. Neurological: Alert but lethargic. CN II-XII grossly intact, moving all extremities equally and fully. MDM: - Vitals signs showed tachycardia and hypoxia. - History obtained via patient and patient's family member. History as above. - Chronic conditions affecting care: anxiety/depression; aortic stenosis; DM-2; HLD; hx of DVT and PE; HTN; ESRD (on Tue/Th/Sat HD) - Differential diagnoses include, but are not limited to: Congestive heart failure; acute coronary syndrome; COPD/asthma exacerbation; pulmonary edema; pulmonary embolism; pneumonia; pneumothorax; viral syndrome - Order placed for continuous cardiac monitoring. At this time, monitor showed rate of 101 bpm with normal sinus rhythm, per my interpretation. - External medical records reviewed. Discharge summary dated 03/02/2024 was reviewed. Patient was admitted that time for acute blood loss anemia and a UTI. - EKG interpreted by myself showed normal sinus rhythm. Rate tachycardic at 102 bpm. QT 334. No acute ischemic changes. - Laboratory workup interpreted by myself showed normal WBC; chronic anemia (Hgb 10.3); normal PT/INR; stable electrolytes; ESRD; elevated troponin (28.3); normal lactate; normal procalcitonin; normal TSH - Blood cultures obtained - VBG negative - CXR showed pulmonary edema, per my interpretation. Radiology notes bronchial wall thickening which could be infectious versus inflammatory airway disease. - Viral respiratory panel positive for COVID-19 - UA ordered but not yet obtained - Patient was not given any fluids per sepsis protocol, secondary to her ESRD status and she did not complete her full dialysis session today. She is also noted to have pulmonary edema on her chest x-ray. Antibiotics were not ordered per sepsis protocol, secondary to the patient's symptoms being from her COVID-19 infection. - Patient complaining of a headache. Given 1 g IV Tylenol. - Given patient's new oxygen requirement, will admit to hospitalist service - Discussion was had with case fitter about patient's case and need for admission - Hospitalist consulted for admission - Patient admitted to [facility] hospitalist service for further evaluation and management. ASSESSMENT AND PLAN: Diagnosis: Generalized weakness; COVID-19 infection; pulmonary edema; acute hypoxic respiratory failure Plan: admit Past Med/Surg History Problem List (Updated 10/30/24 @ 14:26 by Moriah Long MD) Pulmonary edema (Acute) Generalized weakness (Acute) Acute hypoxemic respiratory failure (Acute) COVID-19 (Acute) Swelling of right upper extremity Lower urinary tract symptoms (LUTS) MINDI (obstructive sleep apnea) Chills (Acute) Symptomatic anemia (Acute) Acute GI bleeding (Acute) Anemia (Acute) Chronic renal insufficiency (Acute) Cellulitis of left leg (Acute) Arteriovenous fistula stenosis Encounter for pre-operative examination DVT prophylaxis Ambulatory dysfunction walker-dependent History of fall Hyperkalemia (Acute) Sinus pause (Acute) Chronic pain Sinus pause Obesity Anxiety and depression RLS (restless legs syndrome) HTN (hypertension) DM type 2 (diabetes mellitus, type 2) IDDM Glucose stable End stage renal disease on dialysis (Acute) 2/2 DM Diaylsis Tues/Thurs/Sat- [facility] Follows with Dr. Perez Medical History (Updated 10/30/24 @ 14:26 by Moriah Long MD) Swelling of right upper extremity Lower urinary tract symptoms (LUTS) Hx of fall ESRD (end stage renal disease) on dialysis Diaylsis Tues/Thurs/Sat- [facility] Follows with Dr. Perez Chronic pain History of cellulitis Anemia Hx of gastrointestinal hemorrhage History of dialysis fistulography Ambulatory dysfunction walker-dependent Anxiety and depression RLS (restless legs syndrome) History of blood transfusion 2022 Pulmonary hypertension mild on 2020 echo Sleep apnea severe-not currently treated per pt Moderate aortic stenosis (MELCHOR 0.8 cm2, mean PG 20 mmHg) Diabetes mellitus, type 2 Limb alert care status RUE AVF Osteoporosis HLD (hyperlipidemia) Psoriasis History of renal calculi History of DVT (deep vein thrombosis) RLE, 10+ years ago, post op AC therapy x 3-6 months after > d/c'd + no issues since History of pulmonary embolus (PE) 10+ years ago, post op- no issues since Surgical History History of esophagogastroduodenoscopy (EGD) Hx of bilateral hip replacements H/O laparoscopy History of cystoscopy S/P arteriovenous (AV) fistula repair (~2020) x2 right- currently getting HD History of tooth extraction History of x 2 S/P arteriovenous (AV) fistula creation x 2 BL (non functioning on left)--left still in place not working History of colonoscopy H/O partial resection of colon (2012) For diverticulitis H/O inguinal hernia repair left S/P cholecystectomy Family History Mother Diabetes Sister Diabetes Other No family history of adverse response to anesthesia Social History Smoking Status: Former smoker Tobacco Type: Cigarettes Second Hand Exposure: No; Do You Dip or Chew Tobacco: No; Hx Alcohol Use: No Hx Substance Use: No Preferred Language: Cuban Communication Ability: Effective Blood Bank Custodian Required: No Beliefs That Will Affect Care: None marital status: Current Living Situation: Spouse Current Living Situation Comment: Lives with , daughter and grandson How many Children do You have: 3 Feels Safe at Home: Yes Assistive Devices: Denture - Upper, Denture - Lower and Walker Allergies Allergies Allergy/AdvReac Type Severity Reaction Status Date / Time Sulfa (Sulfonamide Allergy Severe Face/lips/tongue Verified 10/01/24 07:10 Antibiotics) edema nitrofurantoin Allergy Intermediate Hives Verified 10/01/24 07:10 cefazolin [From Ancef] Allergy Unknown CAN'T Verified 10/01/24 07:10 REMEMBER pantoprazole [From Protonix] Allergy Unknown CAN'T Verified 10/01/24 07:10 REMEMBER methylprednisolone AdvReac Intermediate Sweating, Verified 10/01/24 07:10 [From Medrol] heart racing Home Meds Home Medications Medication Instructions Recorded Confirmed gabapentin 100 mg capsule 100 mg PO DIRECTED 12/31/18 10/01/24 albuterol sulfate 90 mcg/actuation 2 puff inhalation Q6H PRN Wheezing 04/04/21 10/01/24 aerosol inhaler citalopram 20 mg tablet 20 mg PO QAM 04/04/21 10/01/24 oxycodone 15 mg tablet 15 mg PO Q8 PRN Pain 04/04/21 10/01/24 betamethasone dipropionate 0.05 % 1 applic topical BID PRN 11/15/23 10/01/24 topical ointment PSORIASIS/ITCHING ropinirole 2 mg tablet 2 mg PO HS 11/15/23 10/01/24 simvastatin 20 mg tablet 20 mg PO HS 11/15/23 10/01/24 vitamin B complex-vitamin C-folic 1 tab PO QAM 11/15/23 10/01/24 acid 0.8 mg tablet (Anais-Federico) dulaglutide 0.75 mg/0.5 mL 0.75 mg subcut WK 02/26/24 10/01/24 subcutaneous pen injector (Trulicity) fluticasone furoate 200 1 inh inhalation DAILY PRN asthma 04/22/24 10/01/24 mcg-vilanterol 25 mcg/dose inhalation powder (Breo Ellipta) triamcinolone acetonide 0.1 % 1 applic topical BID PRN Skin 04/22/24 10/01/24 topical cream Irritation cholecalciferol (vitamin D3) 125 125 mcg PO UD 09/23/24 10/01/24 mcg (5,000 unit) tablet (Vitamin D3) cinacalcet 90 mg tablet (Sensipar) 90 mg PO QPM 09/23/24 10/01/24 epoetin beta, methoxy peg 100 100 mcg IV UD 09/23/24 10/01/24 mcg/0.3 mL injection syringe (Mircera) iron sucrose 50 mg iron/2.5 mL 50 mg IV UD 09/23/24 10/01/24 intravenous solution Results & Data (ED) Vital Signs Vital Signs - 24 hr 10/30/24 11:11 10/30/24 11:14 10/30/24 11:47 Temperature 36.1 C L Temperature Source Temporal Artery Scan Pulse Rate 107 H 103 H Pulse Rate [Apical] Respiratory Rate 20 Respiratory Effort / Characteristics Non-Labored Spontaneous Respiratory Depth Normal Blood Pressure 116/54 L Blood Pressure [Left Arm] Blood Pressure Mean 74 Blood Pressure Mean [Left Arm] Pulse Oximetry 87 L 97 Oxygen Delivery Method Room Air Nasal Cannula Oxygen Flow Rate 2 Sepsis Recent Fever Within 48 Hours No Sepsis New/Unexplained Change in Mental Status N/A Sepsis Action Taken by Nursing No Action Required 10/30/24 12:03 10/30/24 13:05 Temperature Temperature Source Pulse Rate Pulse Rate [Apical] 88 Respiratory Rate Respiratory Effort / Characteristics Respiratory Depth Blood Pressure Blood Pressure [Left Arm] 145/67 H Blood Pressure Mean Blood Pressure Mean [Left Arm] 93 Pulse Oximetry 93 94 Oxygen Delivery Method Nasal Cannula Nasal Cannula Oxygen Flow Rate 2 3 Sepsis Recent Fever Within 48 Hours Sepsis New/Unexplained Change in Mental Status Sepsis Action Taken by Nursing Laboratory Data 10/30/24 12:00 10/30/24 12:00 Lab Results 10/30/24 10/30/24 Range/Units 11:28 12:00 WBC 5.40 (4.8-10.8) K/ul RBC 3.29 L (4.20-5.40) M/uL Hgb 10.3 L (12.0-16.0) g/dl Hct 32.3 L (37.0-47.0) % MCV 98.2 (80.0-100.0) fL MCH 31.3 (25.0-34.0) pg MCHC 31.9 L (32.0-36.0) g/dL RDW Std Deviation 56.3 H (36.4-46.3) fL RDW Coeff of Erum 15.9 H (11.5-14.5) % Plt Count 191 (130-400) K/uL MPV 9.5 (9.4-12.4) fL Immature Gran % (Auto) 0.4 % Neut % (Auto) 75.6 % Lymph % (Auto) 10.9 % Charles % (Auto) 10.6 % Eos % (Auto) 1.9 % Baso % (Auto) 0.6 % Neut # (Auto) 4.09 (1.40-6.50) K/uL Lymph # (Auto) 0.59 L (1.20-3.40) K/uL Charles # (Auto) 0.57 (0.11-0.59) K/uL Eos # (Auto) 0.10 (0.00-0.50) K/uL Baso # (Auto) 0.03 (0.00-0.20) K/uL Immature Gran # (Auto) 0.02 (0.01-0.20) K/uL PT 11.0 (9.0-12.0) Seconds INR 1.0 (0.9-1.1) VBG pH 7.42 H (7.36-7.41) VBG pCO2 51 H (38-50) mmHg VBG pO2 46 mmHg VBG HCO3 33 mmol/L VBG O2 Saturation 70.2 % VBG Base Excess 7.4 mEq/L Sodium 139 (136-145) mmol/L Potassium 4.3 (3.5-5.1) mmol/L Chloride 98 (98-107) mmol/L Carbon Dioxide 30 (21-32) mmol/L Anion Gap 11 (3-11) BUN 41 H (6-23) mg/dl Creatinine 3.92 H (0.6-1.2) mg/dl Est Cr Clr Drug Dosing Not Reportable eGFR 11.76 BUN/Creatinine Ratio 10.5 (10-20) Glucose 116 H (70-99(Fasting)) mg/dl Lactate 0.9 (0.4-2.0) mmol/L Calcium 9.5 (8.6-10.3) mg/dl Magnesium 2.3 (1.7-2.4) mg/dl Total Bilirubin 0.4 (0.2-1.0) mg/dl AST 19 (13-39) U/L ALT 14 (7-52) U/L Alkaline Phosphatase 93 (34-104) U/L Troponin I High Sens 28.3 H (0-14) pg/ml Total Protein 7.2 (6.0-8.3) gm/dl Albumin 3.7 (3.4-5.0) gm/dl Globulin 3.5 (2.5-4.0) gm/dl Albumin/Globulin Ratio 1.1 (0.9-2) Procalcitonin 0.50 (0-0.5) ng/ml TSH 0.465 (0.300-4.500) uIu/ml Adenovirus (PCR) Not Detected (NotDetected) B. pertussis DNA (PCR) Not Detected (NotDetected) B.parapertussis DNA PCR Not Detected (NotDetected) C. pneumoniae DNA (PCR) Not Detected (NotDetected) Coronavirus OC43 (PCR) Not Detected (NotDetected) Coronavirus HKU1 (PCR) Not Detected (NotDetected) Coronavirus 229E (PCR) Not Detected (NotDetected) SARS-CoV-2 (PCR) DETECTED A (NotDetected) Coronavirus NL63 (PCR) Not Detected (NotDetected) Human Metapneumovir PCR Not Detected (NotDetected) Influenza Type A (PCR) Not Detected (NotDetected) Influenza Type B (PCR) Not Detected (NotDetected) M. pneumoniae (PCR) Not Detected (NotDetected) Parainfluenza 1 (PCR) Not Detected (NotDetected) Parainfluenza 2 (PCR) Not Detected (NotDetected) Parainfluenza 3 (PCR) Not Detected (NotDetected) Parainfluenza 4 (PCR) Not Detected (NotDetected) RSV (PCR) Not Detected (NotDetected) Entero/Rhino (PCR) Not Detected (NotDetected) Administered Medications Acetaminophen (Ofirmev) 1,000 mg in 100 mls @ 400 mls/hr IV NOW STA Stop: 10/30/24 14:28 Last Admin: 10/30/24 14:22 Dose: 400 mls/hr Documented By: CHUCK Imaging Data Radiologist's Impression: Chest X-Ray 10/30/24 11:15 XR chest 1V portable CLINICAL HISTORY: weakness; hypoxia TECHNIQUE: Single frontal radiograph of the chest was obtained. Comparison: Comparison is made to chest radiograph 02/26/2024 FINDINGS: No lines and tubes are seen. Cardiomegaly is noted. The aortic arch is calcified. There is prominence and cephalization of the vasculature with Fransisco B lines seen. Bronchial wall thickening is seen. No evidence of pleural effusion or pneumothorax. IMPRESSION: 1. Cardiomegaly and moderate pulmonary edema. 2. Bronchial wall thickening may represent infectious/inflammatory airways disease. ACT 112: Negative or not required by law. Electronically signed by: Rich Chan M.D. 10/30/2024 11:46 AM Discharge Plan Visit Data Chief Complaint: Illness Stated Complaint: JUST HAD DIALYSIS, BLOOD O2 IN LOW 80S, HAD FEVER ED Provider: Moriah Long Discharge Problem: COVID-19, Acute hypoxemic respiratory failure, Generalized weakness, Pulmonary edema Forms Stand Alone Forms: [facility] Prescriptions Prescriptions: No Action gabapentin 100 mg capsule 100 mg PO DIRECTED Rx Instructions: 100mg daily plus additional dose 100 mg after dialysis days oxycodone 15 mg tablet 15 mg PO Q8 PRN (Reason: Pain) Rx Instructions: PER PT "USING IT 4XDAY FOR STRESS FX OF FOOT". citalopram 20 mg tablet 20 mg PO QAM albuterol sulfate 90 mcg/actuation HFA aerosol inhaler 2 puff INHALATION Q6H PRN (Reason: Wheezing) ropinirole 2 mg tablet 2 mg PO HS Rx Instructions: take 1-3 hours before bed simvastatin 20 mg tablet 20 mg PO HS Anais-Federico 0.8 mg tablet 1 tab PO QAM betamethasone dipropionate 0.05 % Ointment 1 applic TOPICAL BID PRN (Reason: PSORIASIS/ITCHING) Trulicity 0.75 mg/0.5 mL pen injector 0.75 mg SUBCUT WK Rx Instructions: mondays triamcinolone acetonide 0.1 % Cream 1 applic TOPICAL BID PRN (Reason: Skin Irritation) fluticasone furoate-vilanterol [Breo Ellipta] 200-25 mcg/dose Blister With Device 1 inh INHALATION DAILY PRN (Reason: asthma) cinacalcet [Sensipar] 90 mg Tablet 90 mg PO QPM cholecalciferol (vitamin D3) [Vitamin D3] 125 mcg (5,000 unit) Tablet 125 mcg PO UD Rx Instructions: hd days , , fri iron sucrose 50 mg iron/2.5 mL Solution 50 mg IV UD Rx Instructions: during dialysis Mircera 100 mcg/0.3 mL Syringe 100 mcg IV UD Rx Instructions: q2w during dialysis Referrals Referrals: Willie Epstein MD [Primary Care Provider] -
--- NOTE | 2024-10-30 11:48 | XRay Report ---
XR chest 1V portable CLINICAL HISTORY: weakness; hypoxia TECHNIQUE: Single frontal radiograph of the chest was obtained. Comparison: Comparison is made to chest radiograph 02/26/2024 FINDINGS: No lines and tubes are seen. Cardiomegaly is noted. The aortic arch is calcified. There is prominence and cephalization of the vasculature with Fransisco B lines seen. Bronchial wall thickening is seen. No evidence of pleural effusion or pneumothorax. IMPRESSION: 1. Cardiomegaly and moderate pulmonary edema. 2. Bronchial wall thickening may represent infectious/inflammatory airways disease. ACT 112: Negative or not required by law. Electronically signed by: Rich Chan M.D. 10/30/2024 11:46 AM
[2024-10-30 12:17] LABS: Base Excess VBG 7.4 mEq/L; HCO3 VBG 33 mmol/L; Oxygen Saturation VBG 70.2 %; PCO2 VBG 51 mmHg (38-50); PO2 VBG 46 mmHg; pH VBG 7.42 (7.36-7.41)
[2024-10-30 12:20] LABS: Basophils # (auto) 0.03 K/uL (0.00-0.20); Basophils % (auto) 0.6 %; Eosinophils % (auto) 1.9 %; Hematocrit (blood only) 32.3 % (37.0-47.0); Hemoglobin 10.3 g/dl (12.0-16.0); Immature Granulocytes # (auto) 0.02 K/uL (0.01-0.20); Immature Granulocytes % (auto) 0.4 %; Lymphocytes # (auto) 0.59 K/uL (1.20-3.40); Lymphocytes % (auto) 10.9 %; Mean Corpuscular Hemoglobin 31.3 pg (25.0-34.0); Mean Corpuscular Hgb Conc 31.9 g/dL (32.0-36.0); Mean Corpuscular Volume 98.2 fL (80.0-100.0); Mean Platelet Volume 9.5 fL (9.4-12.4); Monocytes # (auto) 0.57 K/uL (0.11-0.59); Monocytes % (auto) 10.6 %; Neutrophils # (auto) 4.09 K/uL (1.40-6.50); Neutrophils % (auto) 75.6 %; Platelet Count 191 K/uL (130-400); RDW Coefficient of Variation 15.9 % (11.5-14.5); RDW Standard Deviation 56.3 fL (36.4-46.3); Red Blood Count 3.29 M/uL (4.20-5.40)
[2024-10-30 12:38] LABS: Alanine Aminotransferase 14 U/L (7-52); Albumin Globulin Ratio 1.1 (0.9-2); Albumin Level 3.7 gm/dl (3.4-5.0); Alkaline Phosphatase 93 U/L (34-104); Anion Gap 11 (3-11); Aspartate Aminotransferase 19 U/L (13-39); BUN Creatinine Ratio 10.5 (10-20); Bilirubin,Total 0.4 mg/dl (0.2-1.0); Blood Urea Nitrogen 41 mg/dl (6-23); Calcium 9.5 mg/dl (8.6-10.3); Carbon Dioxide 30 mmol/L (21-32); Chloride 98 mmol/L (98-107); Globulin 3.5 gm/dl (2.5-4.0); Glucose 116 mg/dl (70-99(Fasting)); Magnesium 2.3 mg/dl (1.7-2.4); Potassium 4.3 mmol/L (3.5-5.1); Sodium 139 mmol/L (136-145); Total Protein 7.2 gm/dl (6.0-8.3)
[2024-10-30 12:43] LABS: Troponin I High Sensitivity 28.3 pg/ml (0-14)
[2024-10-30 12:52] LABS: Thyroid Stimulating Hormone 0.465 uIu/ml (0.300-4.500)
[2024-10-30 13:12] LABS: Adenovirus PCR Not Detected (NotDetected); Bordetella parapertussis PCR Not Detected (NotDetected); Bordetella pertussis PCR Not Detected (NotDetected); Chlamydia pneumoniae PCR Not Detected (NotDetected); Coronavirus 229E PCR Not Detected (NotDetected); Coronavirus CoV-2 (COVID19)PCR DETECTED (NotDetected); Coronavirus HKU1 PCR Not Detected (NotDetected); Coronavirus NL63 PCR Not Detected (NotDetected); Coronavirus OC43PCR Not Detected (NotDetected); Human Metapneumovirus PCR Not Detected (NotDetected); Influenza A PCR Not Detected (NotDetected); Influenza B PCR Not Detected (NotDetected); Mycoplasma pneumoniae PCR Not Detected (NotDetected); Parainfluenza Virus 1 PCR Not Detected (NotDetected); Parainfluenza Virus 2 PCR Not Detected (NotDetected); Parainfluenza Virus 3 PCR Not Detected (NotDetected); Parainfluenza Virus 4 PCR Not Detected (NotDetected); Respiratory Syncytial VirusPCR Not Detected (NotDetected); Rhinovirus/Enterovirus PCR Not Detected (NotDetected)
[2024-10-30] MEDS: ACETAMINOPHEN 1,000 MG/100 ML VIAL IV STA (14:22)
[2024-10-30 15:15] LABS: Appearance Urine Cloudy (Clear); Bacteria Urine Automated 4+ (None Seen); Bilirubin Urine Negative (Negative); Blood Urine 2+ (Negative); Color Urine Yellow; Epithelial Cell Urine Auto >20 /hpf (0-2); Glucose Urine UA 1+ (Negative); Ketones Urine Negative (Negative); Leukocyte Esterase Urine 3+ (Negative); Nitrite Urine Negative (Negative); Protein Urine 2+ (Negative); RBC Urine Automated >20 /hpf (0-2); Urobilinogen Urine Negative (Negative); pH Urine >= 9.0 (4.5-7.5)
--- NOTE | 2024-10-30 15:19 | History & Physical Report ---
<Statement entered by Mike Barr MD - 10/31/24 07:07> Patient was seen and examined in the ED and case was discussed with JANETTE, at this time patient does not seem to be having any issue with her positive COVID status, will proceed with placing her in observation for missed hemodialysis and to review plan per nephrology, likely her stay will be short. Date of Service October 30, 2024 Assessment & Plan (1) Acute hypoxemic respiratory failure: Plan: This is a 69 y/o female with ESRD on HD, DM2, hx PE, anemia in ESRD, psoriasis, hyperlipidemia, and other history as outlined below who presented to the ED from HD today with confusion and weakness. In the ED, she was noted to be hypoxic with O2 sat of 87% on room air, improved on 2L of O2 to the mid 90s - Admit to PCU - Continue supplemental O2 - wean as possible - IV Decadron daily due to COVID with hypoxia - Consult nephrology for dialysis - PRN albuterol inhaler - IS, flutter valve (2) COVID-19: Plan: See plan for #1 Covid isolation precautions (3) Generalized weakness: Plan: Due to #2 Consider PT/OT evaluation once respiratory status improves (4) End stage renal disease on dialysis: Plan: Nephrology for dialysis Labs in the AM (5) DM type 2 (diabetes mellitus, type 2): Plan: Insulin sliding scale BSG ACHS Diabetic diet A1c in the AM Plan Pt seen and reviewd with Dr. Barr. Plan of care discussed and as above. Code status: Full code DVT prophylaxis: subq heparin Marilu Gomez PA-C History of Present Illness Chief Complaint: confusion, weakness Primary Care Provider: Willie Epstein MD This is a 69 y/o female with ESRD on HD, DM2, hx PE, anemia in ESRD, psoriasis, hyperlipidemia, and other history as outlined below who presented to the ED from HD today with confusion and weakness. Pt reports that four days ago, started with malaise and myalgias then developed weakness, fatigue, and PND. Three days ago, took a home COVID test that was positive. She didn't go to HD on (two days ago) because of being sick. She went to HD today but session had to be ended an hour early because of increased confusion and weakness. She denies fevers, N/V, cough, chest pain, dyspnea. She has developed a headache and notes feeling lightheaded after HD today. She does still make urine but denies dysuria, hematuria, change in urination. Her grandson has also been sick. On initial presentation to the ED, her pulseox was 87% on room air so she was placed on 2-3 L of O2 with improvement. She does not require supplemental O2 at baseline. Allergies Allergy/AdvReac Type Severity Reaction Status Date / Time Sulfa (Sulfonamide Allergy Severe Face/lips/tongue Verified 10/30/24 15:19 Antibiotics) edema nitrofurantoin Allergy Intermediate Hives Verified 10/30/24 15:19 cefazolin [From Ancef] Allergy Unknown CAN'T Verified 10/30/24 15:19 REMEMBER pantoprazole [From Protonix] Allergy Unknown CAN'T Verified 10/30/24 15:19 REMEMBER methylprednisolone AdvReac Intermediate Sweating, Verified 10/30/24 15:19 [From Medrol] heart racing Home Medications Medication Instructions Recorded Confirmed Type gabapentin 100 mg capsule 100 mg PO DIRECTED 12/31/18 10/30/24 History albuterol sulfate 90 mcg/actuation 2 puff inhalation Q6H PRN Wheezing 04/04/21 10/30/24 History aerosol inhaler citalopram 20 mg tablet 20 mg PO QAM 04/04/21 10/30/24 History betamethasone dipropionate 0.05 % 1 applic topical BID PRN 11/15/23 10/30/24 History topical ointment PSORIASIS/ITCHING ropinirole 2 mg tablet 2 mg PO HS 11/15/23 10/30/24 History simvastatin 20 mg tablet 20 mg PO HS 11/15/23 10/30/24 History vitamin B complex-vitamin C-folic 1 tab PO QAM 11/15/23 10/30/24 History acid 0.8 mg tablet (Anais-Federico) dulaglutide 0.75 mg/0.5 mL 0.75 mg subcut WK 02/26/24 10/30/24 History subcutaneous pen injector (Trulicity) fluticasone furoate 200 1 inh inhalation DAILY PRN asthma 04/22/24 10/30/24 History mcg-vilanterol 25 mcg/dose inhalation powder (Breo Ellipta) triamcinolone acetonide 0.1 % 1 applic topical BID PRN Skin 04/22/24 10/30/24 History topical cream Irritation cholecalciferol (vitamin D3) 125 125 mcg PO UD 09/23/24 10/30/24 History mcg (5,000 unit) tablet (Vitamin D3) cinacalcet 90 mg tablet (Sensipar) 90 mg PO QPM 09/23/24 10/30/24 History epoetin beta, methoxy peg 100 100 mcg IV UD 09/23/24 10/30/24 History mcg/0.3 mL injection syringe (Mircera) iron sucrose 50 mg iron/2.5 mL 50 mg IV UD 09/23/24 10/30/24 History intravenous solution lanthanum 750 mg chewable tablet 750 mg PO TIDWMEAL 10/30/24 10/30/24 History oxycodone 15 mg tablet 15 mg PO Q8H PRN Pain 10/30/24 10/30/24 History triamcinolone acetonide 0.1 % 1 applic topical BID PRN Skin 10/30/24 10/30/24 History topical ointment Irritation Past Med/Surg History Problem List (Updated 10/30/24 @ 20:50 by Andra Gomez PA-C) Pulmonary edema (Acute) Generalized weakness (Acute) Acute hypoxemic respiratory failure (Acute) COVID-19 (Acute) Swelling of right upper extremity Lower urinary tract symptoms (LUTS) MINDI (obstructive sleep apnea) Chills (Acute) Symptomatic anemia (Acute) Acute GI bleeding (Acute) Anemia (Acute) Chronic renal insufficiency (Acute) Cellulitis of left leg (Acute) Arteriovenous fistula stenosis Encounter for pre-operative examination DVT prophylaxis Ambulatory dysfunction walker-dependent History of fall Hyperkalemia (Acute) Sinus pause (Acute) Chronic pain Sinus pause Obesity Anxiety and depression RLS (restless legs syndrome) HTN (hypertension) DM type 2 (diabetes mellitus, type 2) IDDM Glucose stable End stage renal disease on dialysis (Acute) 2/2 DM Diaylsis Tu/Thurs/Sat- [facility] Follows with Dr. Perez Medical History (Updated 10/30/24 @ 20:50 by Andra Gomez PA-C) Swelling of right upper extremity Lower urinary tract symptoms (LUTS) Hx of fall ESRD (end stage renal disease) on dialysis [facility] Chronic pain History of cellulitis Anemia Hx of gastrointestinal hemorrhage History of dialysis fistulography Ambulatory dysfunction walker-dependent Anxiety and depression RLS (restless legs syndrome) History of blood transfusion 2022 Pulmonary hypertension mild on 2020 echo Sleep apnea severe-not currently treated per pt Moderate aortic stenosis (MELCHOR 0.8 cm2, mean PG 20 mmHg) Diabetes mellitus, type 2 Limb alert care status RUE AVF Osteoporosis HLD (hyperlipidemia) Psoriasis History of renal calculi History of DVT (deep vein thrombosis) RLE, 10+ years ago, post op AC therapy x 3-6 months after > d/c'd + no issues since History of pulmonary embolus (PE) 10+ years ago, post op- no issues since Surgical History History of esophagogastroduodenoscopy (EGD) Hx of bilateral hip replacements H/O laparoscopy History of cystoscopy S/P arteriovenous (AV) fistula repair (~2020) x2 right- currently getting HD History of tooth extraction History of x 2 S/P arteriovenous (AV) fistula creation x 2 BL (non functioning on left)--left still in place not working History of colonoscopy H/O partial resection of colon (2012) For diverticulitis H/O inguinal hernia repair left S/P cholecystectomy Family History Mother Diabetes Sister Diabetes Other No family history of adverse response to anesthesia Social History Smoking Status: Former smoker Tobacco Type: Cigarettes Second Hand Exposure: No; Do You Dip or Chew Tobacco: No; Hx Alcohol Use: No Hx Substance Use: No Preferred Language: Cook Islander Communication Ability: Effective Personal Banking Officer Required: No Beliefs That Will Affect Care: None marital status: Current Living Situation: Spouse and Family Current Living Situation Comment: Lives with , daughter and grandson How many Children do You have: 3 Other Information That Helps Us Care for You: No Feels Safe at Home: Yes Safety Concerns: Feels Safe At This Time Assistive Devices: Denture - Upper and Walker Assistive Devices Comment: Walker is at home Review of Systems Review of Systems: All systems reviewed & are unremarkable except as noted in Subjective Physical Exam Physical Exam: General: awake, alert, NAD HEENT: no scleral icterus, moist oral mucosa Neck: supple, trachea midline Heart: RRR, +murmur Lungs: diminished at bases, coarse BS but no wheezing Abdomen: soft, NT, +BS Extremities: no pitting edema, distal pulses intact and equal: RUE fistula with thrill, non-tender, no erythema or warmth Skin: warm, dry, no pallor cyanosis Neurologic: OX3, no confusion or dysarthria, moving all extremities, no focal deficits Results & Data Results & Data Vital Signs (Past 12 Hours) Vital Signs Temp Pulse Pulse Resp BP BP Pulse Ox 10/30/24 14:30 96 H 23 99 10/30/24 14:00 115 H 24 118/51 L 10/30/24 13:30 85 19 10/30/24 13:05 88 145/67 H 94 10/30/24 13:00 94 H 23 145/67 H 98 10/30/24 12:03 93 10/30/24 11:47 103 H 10/30/24 11:30 99 H 17 145/69 H 10/30/24 11:14 97 10/30/24 11:11 36.1 C L 107 H 20 116/54 L 87 L O2 Del Method O2 Flow Rate 10/30/24 14:30 3 10/30/24 14:00 10/30/24 13:30 10/30/24 13:05 Nasal Cannula 3 10/30/24 13:00 3 10/30/24 12:03 Nasal Cannula 2 10/30/24 11:47 10/30/24 11:30 10/30/24 11:14 Nasal Cannula 2 10/30/24 11:11 Room Air Laboratory Results Lab Results 10/30/24 10/30/24 10/30/24 Range/Units 11:28 12:00 Unknown WBC 5.40 (4.8-10.8) K/ul RBC 3.29 L (4.20-5.40) M/uL Hgb 10.3 L (12.0-16.0) g/dl Hct 32.3 L (37.0-47.0) % MCV 98.2 (80.0-100.0) fL MCH 31.3 (25.0-34.0) pg MCHC 31.9 L (32.0-36.0) g/dL RDW Std Deviation 56.3 H (36.4-46.3) fL RDW Coeff of Erum 15.9 H (11.5-14.5) % Plt Count 191 (130-400) K/uL MPV 9.5 (9.4-12.4) fL Immature Gran % (Auto) 0.4 % Neut % (Auto) 75.6 % Lymph % (Auto) 10.9 % Gordon % (Auto) 10.6 % Eos % (Auto) 1.9 % Baso % (Auto) 0.6 % Neut # (Auto) 4.09 (1.40-6.50) K/uL Lymph # (Auto) 0.59 L (1.20-3.40) K/uL Gordon # (Auto) 0.57 (0.11-0.59) K/uL Eos # (Auto) 0.10 (0.00-0.50) K/uL Baso # (Auto) 0.03 (0.00-0.20) K/uL Immature Gran # (Auto) 0.02 (0.01-0.20) K/uL PT 11.0 (9.0-12.0) Seconds INR 1.0 (0.9-1.1) VBG pH 7.42 H (7.36-7.41) VBG pCO2 51 H (38-50) mmHg VBG pO2 46 mmHg VBG HCO3 33 mmol/L VBG O2 Saturation 70.2 % VBG Base Excess 7.4 mEq/L Sodium 139 (136-145) mmol/L Potassium 4.3 (3.5-5.1) mmol/L Chloride 98 (98-107) mmol/L Carbon Dioxide 30 (21-32) mmol/L Anion Gap 11 (3-11) BUN 41 H (6-23) mg/dl Creatinine 3.92 H (0.6-1.2) mg/dl Est Cr Clr Drug Dosing Not Reportable eGFR 11.76 BUN/Creatinine Ratio 10.5 (10-20) Glucose 116 H (70-99(Fasting)) mg/dl Lactate 0.9 (0.4-2.0) mmol/L Calcium 9.5 (8.6-10.3) mg/dl Magnesium 2.3 (1.7-2.4) mg/dl Total Bilirubin 0.4 (0.2-1.0) mg/dl AST 19 (13-39) U/L ALT 14 (7-52) U/L Alkaline Phosphatase 93 (34-104) U/L Troponin I High Sens 28.3 H (0-14) pg/ml Total Protein 7.2 (6.0-8.3) gm/dl Albumin 3.7 (3.4-5.0) gm/dl Globulin 3.5 (2.5-4.0) gm/dl Albumin/Globulin Ratio 1.1 (0.9-2) Procalcitonin 0.50 (0-0.5) ng/ml TSH 0.465 (0.300-4.500) uIu/ml Urine Color Yellow Urine Appearance Cloudy A (Clear) Urine pH >= 9.0 H (4.5-7.5) Ur Specific Morrow 1.010 (1.000-1.030) Urine Protein 2+ H (Negative) Urine Glucose (UA) 1+ H (Negative) Urine Ketones Negative (Negative) Urine Blood 2+ H (Negative) Urine Nitrite Negative (Negative) Urine Bilirubin Negative (Negative) Urine Urobilinogen Negative (Negative) Ur Leukocyte Esterase 3+ H (Negative) Urine WBC (Auto) 11-20 H (0-5) /hpf Urine RBC (Auto) >20 H (0-2) /hpf U Hyaline Cast (Auto) 3-5 H (0-2) /lpf U Epithel Cells (Auto) >20 H (0-2) /hpf Urine Bacteria (Auto) 4+ H (None Seen) Adenovirus (PCR) Not Detected (NotDetected) B. pertussis DNA (PCR) Not Detected (NotDetected) B.parapertussis DNA PCR Not Detected (NotDetected) C. pneumoniae DNA (PCR) Not Detected (NotDetected) Coronavirus OC43 (PCR) Not Detected (NotDetected) Coronavirus HKU1 (PCR) Not Detected (NotDetected) Coronavirus 229E (PCR) Not Detected (NotDetected) SARS-CoV-2 (PCR) DETECTED A (NotDetected) Coronavirus NL63 (PCR) Not Detected (NotDetected) Human Metapneumovir PCR Not Detected (NotDetected) Influenza Type A (PCR) Not Detected (NotDetected) Influenza Type B (PCR) Not Detected (NotDetected) M. pneumoniae (PCR) Not Detected (NotDetected) Parainfluenza 1 (PCR) Not Detected (NotDetected) Parainfluenza 2 (PCR) Not Detected (NotDetected) Parainfluenza 3 (PCR) Not Detected (NotDetected) Parainfluenza 4 (PCR) Not Detected (NotDetected) RSV (PCR) Not Detected (NotDetected) Entero/Rhino (PCR) Not Detected (NotDetected) Diagnostic Findings Chest X-Ray 10/30/24 11:15 XR chest 1V portable CLINICAL HISTORY: weakness; hypoxia TECHNIQUE: Single frontal radiograph of the chest was obtained. Comparison: Comparison is made to chest radiograph 02/26/2024 FINDINGS: No lines and tubes are seen. Cardiomegaly is noted. The aortic arch is calcified. There is prominence and cephalization of the vasculature with Fransisco B lines seen. Bronchial wall thickening is seen. No evidence of pleural effusion or pneumothorax. IMPRESSION: 1. Cardiomegaly and moderate pulmonary edema. 2. Bronchial wall thickening may represent infectious/inflammatory airways disease. ACT 112: Negative or not required by law. Electronically signed by: Rich Chan M.D. 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
[2024-10-30] MEDS ORDERED: CARBOHYDRATES FOR HYPOGLYCEMIA PO PRN (18:29)
[2024-10-30] MEDS ORDERED: GLUCOSE 40% GEL 15 GM TUBE PO PRN (18:29)
[2024-10-30] MEDS ORDERED: GLUCAGON FOR INJ 1 MG VIAL SQ PRN (18:29)
[2024-10-30] MEDS ORDERED: DEXTROSE 50% 50 ML SYRINGE IV PRN (18:29)
[2024-10-30] MEDS ORDERED: GLUCOSE 10 TAB/TUBE PO PRN (18:29)
[2024-10-30] MEDS ORDERED: ALBUTEROL HFA 8 GM INHALER INH PRN (18:30)
[2024-10-30] MEDS ORDERED: FLUTICASONE/VILANTEROL 200/25MCG 14 PUFFS/INHALER INH PRN (18:30)
[2024-10-30] MEDS: ONDANSETRON INJ 2 MG/ML 2 ML VIAL IV STA (19:37)
[2024-10-30] MEDS: ALBUMIN 25% 12.5 GM/50 ML VIAL IV ONE (20:12)
[2024-10-30] MEDS: CINACALCET HCL 90 MG TAB PO SCH (20:13)
[2024-10-30] MEDS: HEPARIN SOD 5,000 UNIT/0.5 ML VIAL SQ SCH (20:13)
[2024-10-30] MEDS: INSULIN ASPART PER UNIT CHARGE SC SCH (20:24)
[2024-10-30] MEDS: NYSTATIN POWDER 15GM BTL EXT SCH (20:31)
[2024-10-30] MEDS: SIMVASTATIN 20 MG TAB PO SCH (20:31)
[2024-10-30] MEDS: rOPINIRole HCL 2 MG TABLET PO SCH (21:22)
[2024-10-30] MEDS: oxyCODONE HCL IR 5 MG TAB (IMMEDIATE RELEASE) PO PRN (21:25)
[2024-10-30] MEDS: dexAMETHasone 6 MG in SYRINGE 0 ML IV SCH (21:32)
[2024-10-30] MEDS: ACETAMINOPHEN 325 MG TAB PO PRN (23:22)
[2024-10-31 00:04] LABS: Base Excess VBG 5.3 mEq/L; HCO3 VBG 32 mmol/L; Oxygen Saturation VBG 95.4 %; PCO2 VBG 54 mmHg (38-50); PO2 VBG 78 mmHg; pH VBG 7.38 (7.36-7.41)
[2024-10-31 06:19] LABS: Basophils # (auto) 0.01 K/uL (0.00-0.20); Basophils % (auto) 0.3 %; Eosinophils # (auto) 0.01 K/uL (0.00-0.50); Eosinophils % (auto) 0.3 %; Hemoglobin 9.6 g/dl (12.0-16.0); Immature Granulocytes # (auto) 0.02 K/uL (0.01-0.20); Immature Granulocytes % (auto) 0.7 %; Lymphocytes # (auto) 0.44 K/uL (1.20-3.40); Lymphocytes % (auto) 14.8 %; Mean Corpuscular Hemoglobin 31.2 pg (25.0-34.0); Mean Corpuscular Volume 100.6 fL (80.0-100.0); Mean Platelet Volume 9.5 fL (9.4-12.4); Monocytes % (auto) 3.4 %; Neutrophils # (auto) 2.39 K/uL (1.40-6.50); Neutrophils % (auto) 80.5 %; Platelet Count 139 K/uL (130-400); RDW Coefficient of Variation 15.9 % (11.5-14.5); RDW Standard Deviation 58.4 fL (36.4-46.3); Red Blood Count 3.08 M/uL (4.20-5.40); White Blood Count 2.97 K/ul (4.8-10.8)
[2024-10-31 06:42] LABS: Calcium 8.6 mg/dl (8.6-10.3); Magnesium 2.4 mg/dl (1.7-2.4); Potassium 5.4 mmol/L (3.5-5.1)
[2024-10-31 06:44] LABS: BUN Creatinine Ratio 11.1 (10-20); Creatinine Clr Calc Pharmacy 11.1 ml/min; Phosphorus 7.1 mg/dl (2.5-4.9)
[2024-10-31 07:13] LABS: Estimated Average Glucose 97 mg/dl
[2024-10-31] MEDS: CITALOPRAM 20 MG TAB PO SCH (08:46)
[2024-10-31] MEDS: GABAPENTIN 100 MG CAP PO SCH (08:46)
[2024-10-31] MEDS ORDERED: NON-FORMULARY MEDICATION (B Complex-Vitamin C-Folic Acid [Rena-Vite] 0.8 mg tablet) PO SCH (09:00)
--- NOTE | 2024-10-31 09:31 | Discharge Summary ---
Discharge Summary Date of Service October 31, 2024 Principal Dx & Hospital Course #1 = Principal Diagnosis (1) Acute hypoxemic respiratory failure: (2) COVID-19: (3) Generalized weakness: (4) End stage renal disease on dialysis: (5) DM type 2 (diabetes mellitus, type 2): Notes For Next Care Provider Medication Changes From Visit Decadron 6 mg daily for 10 days Admission HPI Per Admitting Provider This is a 69 y/o female with ESRD on HD, DM2, hx PE, anemia in ESRD, psoriasis, hyperlipidemia, and other history as outlined below who presented to the ED from HD today with confusion and weakness. Pt reports that four days ago, started with malaise and myalgias then developed weakness, fatigue, and PND. Three days ago, took a home COVID test that was positive. She didn't go to HD on (two days ago) because of being sick. She went to HD today but session had to be ended an hour early because of increased confusion and weakness. She came to the hospital with some shortness of breath, was managed with oxygen as patient was reportedly having hypoxemia with saturation of 87% on room air. Patient was seen both yesterday and today, she otherwise remained stable, I did not notice any further hypoxemia, patient is going to have her hemodialysis and after that can be discharged. In regard to her COVID with negative x-ray, I only recommend patient's to be on 10 days of Decadron 6 mg daily. She can be safely discharged after hemodialysis. Updated Medication List Medication Instructions Recorded Confirmed Type gabapentin 100 mg capsule 100 mg PO DIRECTED 12/31/18 10/30/24 History albuterol sulfate 90 mcg/actuation 2 puff inhalation Q6H PRN Wheezing 04/04/21 10/30/24 History aerosol inhaler citalopram 20 mg tablet 20 mg PO QAM 04/04/21 10/30/24 History betamethasone dipropionate 0.05 % 1 applic topical BID PRN 11/15/23 10/30/24 History topical ointment PSORIASIS/ITCHING ropinirole 2 mg tablet 2 mg PO HS 11/15/23 10/30/24 History simvastatin 20 mg tablet 20 mg PO HS 11/15/23 10/30/24 History vitamin B complex-vitamin C-folic 1 tab PO QAM 11/15/23 10/30/24 History acid 0.8 mg tablet (Anais-Federico) dulaglutide 0.75 mg/0.5 mL 0.75 mg subcut WK 02/26/24 10/30/24 History subcutaneous pen injector (Trulicity) fluticasone furoate 200 1 inh inhalation DAILY PRN asthma 04/22/24 10/30/24 History mcg-vilanterol 25 mcg/dose inhalation powder (Breo Ellipta) triamcinolone acetonide 0.1 % 1 applic topical BID PRN Skin 04/22/24 10/30/24 History topical cream Irritation cholecalciferol (vitamin D3) 125 125 mcg PO UD 09/23/24 10/30/24 History mcg (5,000 unit) tablet (Vitamin D3) cinacalcet 90 mg tablet (Sensipar) 90 mg PO QPM 09/23/24 10/30/24 History epoetin beta, methoxy peg 100 100 mcg IV UD 09/23/24 10/30/24 History mcg/0.3 mL injection syringe (Mircera) iron sucrose 50 mg iron/2.5 mL 50 mg IV UD 09/23/24 10/30/24 History intravenous solution lanthanum 750 mg chewable tablet 750 mg PO TIDWMEAL 10/30/24 10/30/24 History oxycodone 15 mg tablet 15 mg PO Q8H PRN Pain 10/30/24 10/30/24 History triamcinolone acetonide 0.1 % 1 applic topical BID PRN Skin 10/30/24 10/30/24 History topical ointment Irritation dexamethasone 6 mg tablet 6 mg PO DAILY #10 tabs 10/31/24 Rx Hospital Stay Data Consultations 10/30/24 14:26 ED Decision to Admit Stat 10/30/24 18:35 Consult Nephrology Routine Pending Results Patient Have Any Pending Studies at Discharge: No Discharge Instructions Given to Patient (Per Discharging Provider) Do not miss any hemodialysis Total Time Total Time Spent Total Time Spent (In Minutes): More than 35 and
[2024-10-31] MEDS: SODIUM ZIRCONIUM CYCLOSILICATE 10 GM PACKET PO SCH (10:55)
[2024-10-31] MEDS: MIDODRINE HCL 10 MG TAB PO SCH (11:42)
--- NOTE | 2024-10-31 15:05 | Nephrology Consultation ---
Date of Consultation October 31, 2024 Assessment & Plan (1) End stage renal disease on dialysis: patient with ESRD on dialysis Friday. She is now admitted with COVID pneumonia. She had dialysis yesterday for 3 hours but dialysis was stopped 1 hour before time due to extreme weakness and altered mental status. She feels better today but still hypotensive and tachycardic. Potassium is 5.4. Given hypotension, will hold off dialysis today. Will plan to dialyze her tomorrow for 4 hours target UF 2.5 L. Will continue midodrine 10 mg three times daily (2) Acute hypoxemic respiratory failure: patient with the acute hypoxic respiratory failure due to COVID pneumonia. Chest x-ray showed cardiomegaly and the increased vascular markings. She had dialysis yesterday. This is likely due to COVID pneumonia. Continue supportive management for COVID infection. Will plan dialysis tomorrow. Titrate oxygen to keep sats above 92 % (3) COVID-19: she is on Decadron per primary team. History of Present Illness Reason for Consultation: ESRD with COVID Requesting Physician: Alonso Shahid MD Attending Physician: Alonso Shahid MD History of Present Illness This is a 69 y/o female with ESRD on HD Friday in [place], DM2, hx PE, anemia in ESRD, psoriasis, hyperlipidemia, and obesity who was sent to the ED from HD 10/30 with confusion and weakness. patient has been unwell for several days with weakness and exertional dyspnea. patient took a home COVID test that was positive. She didn't go to HD on because of being sick. She went to HD Friday but session had to be ended an hour early because of increased confusion and weakness. she was dialyzed for about 3 hours. She feels better now denies any shortness of breath. Her blood pressure remains low with systolic in the mid 80s and she has tachycardia over 108. no fever. No leg swelling. Allergies Allergy/AdvReac Type Severity Reaction Status Date / Time Sulfa (Sulfonamide Allergy Severe Face/lips/tongue Verified 10/30/24 15:19 Antibiotics) edema nitrofurantoin Allergy Intermediate Hives Verified 10/30/24 15:19 cefazolin [From [facility]] Allergy Unknown CAN'T Verified 10/30/24 15:19 REMEMBER pantoprazole [From Protonix] Allergy Unknown CAN'T Verified 10/30/24 15:19 REMEMBER methylprednisolone AdvReac Intermediate Sweating, Verified 10/30/24 15:19 [From Medrol] heart racing Home Medications Medication Instructions Recorded Confirmed Type gabapentin 100 mg capsule 100 mg PO DIRECTED 12/31/18 10/30/24 History albuterol sulfate 90 mcg/actuation 2 puff inhalation Q6H PRN Wheezing 04/04/21 10/30/24 History aerosol inhaler citalopram 20 mg tablet 20 mg PO QAM 04/04/21 10/30/24 History betamethasone dipropionate 0.05 % 1 applic topical BID PRN 11/15/23 10/30/24 History topical ointment PSORIASIS/ITCHING ropinirole 2 mg tablet 2 mg PO HS 11/15/23 10/30/24 History simvastatin 20 mg tablet 20 mg PO HS 11/15/23 10/30/24 History vitamin B complex-vitamin C-folic 1 tab PO QAM 11/15/23 10/30/24 History acid 0.8 mg tablet (Anais-Federico) dulaglutide 0.75 mg/0.5 mL 0.75 mg subcut WK 02/26/24 10/30/24 History subcutaneous pen injector (Trulicity) fluticasone furoate 200 1 inh inhalation DAILY PRN asthma 04/22/24 10/30/24 History mcg-vilanterol 25 mcg/dose inhalation powder (Breo Ellipta) triamcinolone acetonide 0.1 % 1 applic topical BID PRN Skin 04/22/24 10/30/24 History topical cream Irritation cholecalciferol (vitamin D3) 125 125 mcg PO UD 09/23/24 10/30/24 History mcg (5,000 unit) tablet (Vitamin D3) cinacalcet 90 mg tablet (Sensipar) 90 mg PO QPM 09/23/24 10/30/24 History epoetin beta, methoxy peg 100 100 mcg IV UD 09/23/24 10/30/24 History mcg/0.3 mL injection syringe (Mircera) iron sucrose 50 mg iron/2.5 mL 50 mg IV UD 09/23/24 10/30/24 History intravenous solution lanthanum 750 mg chewable tablet 750 mg PO TIDWMEAL 10/30/24 10/30/24 History oxycodone 15 mg tablet 15 mg PO Q8H PRN Pain 10/30/24 10/30/24 History triamcinolone acetonide 0.1 % 1 applic topical BID PRN Skin 10/30/24 10/30/24 History topical ointment Irritation dexamethasone 6 mg tablet 6 mg PO DAILY #10 tabs 10/31/24 Rx Patient History Medical History (Updated 10/30/24 @ 20:50 by Andra Gomez PA-C) Swelling of right upper extremity Lower urinary tract symptoms (LUTS) Hx of fall ESRD (end stage renal disease) on dialysis Diaylsis Tues/Thurs/Sat- [facility] Follows with Dr. Perez Chronic pain History of cellulitis Anemia Hx of gastrointestinal hemorrhage History of dialysis fistulography Ambulatory dysfunction walker-dependent Anxiety and depression RLS (restless legs syndrome) History of blood transfusion 2022 Pulmonary hypertension mild on 2020 echo Sleep apnea severe-not currently treated per pt Moderate aortic stenosis (MELCHOR 0.8 cm2, mean PG 20 mmHg) Diabetes mellitus, type 2 Limb alert care status RUE AVF Osteoporosis HLD (hyperlipidemia) Psoriasis History of renal calculi History of DVT (deep vein thrombosis) RLE, 10+ years ago, post op AC therapy x 3-6 months after > d/c'd + no issues since History of pulmonary embolus (PE) 10+ years ago, post op- no issues since Surgical History History of esophagogastroduodenoscopy (EGD) Hx of bilateral hip replacements H/O laparoscopy History of cystoscopy S/P arteriovenous (AV) fistula repair (~2020) x2 right- currently getting HD History of tooth extraction History of x 2 S/P arteriovenous (AV) fistula creation x 2 BL (non functioning on left)--left still in place not working History of colonoscopy H/O partial resection of colon (2012) For diverticulitis H/O inguinal hernia repair left S/P cholecystectomy Family History Mother Diabetes Sister Diabetes Other No family history of adverse response to anesthesia Social History Smoking Status: Former smoker Tobacco Type: Cigarettes Second Hand Exposure: No; Do You Dip or Chew Tobacco: No; Hx Alcohol Use: No Hx Substance Use: No Preferred Language: Iranian Communication Ability: Effective Government Affairs Director Required: No Beliefs That Will Affect Care: None marital status: Current Living Situation: Spouse and Family Current Living Situation Comment: Lives with , daughter and grandson How many Children do You have: 3 Other Information That Helps Us Care for You: No Feels Safe at Home: Yes Safety Concerns: Feels Safe At This Time Assistive Devices: Denture - Upper and Walker Assistive Devices Comment: Walker is at home Review of Systems 2 Review of Systems: All other systems were reviewed and negative except as noted in HPI Physical Exam 2 Physical Exam: General exam: Appears comfortable, no acute distress HEENT: Pupils are equal and reactive to light Neck: No JVD, neck is supple trachea is midline Respiratory system: Clear breath sounds bilaterally. Gastrointestinal: Abdomen is soft, non distended, non tender, bowel sounds are present CVS: Regular rate and rhythm. No murmurs, rubs or gallops Musculoskeletal: No joint or muscle tenderness Extremities: Non tender, no edema, peripheral pulses are present Neuro: Oriented, no tremors, no focal neurological deficits Skin: No rashes Results & Data Vital Signs (Past 12 Hours) Vital Signs Temp Pulse Pulse Pulse Pulse Resp Resp 10/31/24 13:19 108 H 78 75 22 10/31/24 11:02 36.5 C 70 18 10/31/24 09:00 10/31/24 07:46 36.3 C L 79 18 Resp Resp BP Pulse Ox Pulse Ox Pulse Ox Pulse Ox 10/31/24 13:19 18 18 90 93 85 L 10/31/24 11:02 87/46 L 99 10/31/24 09:00 10/31/24 07:46 94/55 L 95 O2 Del Method O2 Flow Rate O2 Flow Rate O2 Flow Rate 10/31/24 13:19 2 2 10/31/24 11:02 Nasal Cannula 2.0 10/31/24 09:00 Nasal Cannula 1 10/31/24 07:46 Nasal Cannula 2.0 Laboratory Results 10/31/24 05:52 10/31/24 05:52 WBC 2.97 L RBC 3.08 L MCV 100.6 H MCH 31.2 MCHC 31.0 L RDW Std Deviation 58.4 H RDW Coeff of Erum 15.9 H Plt Count 139 MPV 9.5 Phosphorus 7.1 H
--- NOTE | 2024-11-01 06:05 | Electrocardiogram Report ---
Test Reason : Blood Pressure : */* mmHG Vent. Rate : 102 BPM Atrial Rate : 102 BPM P-R Int : 166 ms QRS Dur : 80 ms QT Int : 334 ms P-R-T Axes : 30 40 21 degrees QTcB Int : 435 ms Sinus tachycardia with Premature atrial complexes Poor R wave progression, consider anterior NC vs. lead placement vs. LVH Abnormal ECG When compared with ECG of 15-Nov-2023 01:10, Premature atrial complexes are now Present Confirmed by Reece Dalal ([id number]) on 11/01/2024 6:04:55 AM Referred By: Confirmed By: Reece Dalal
[2024-11-01 07:11] LABS: BUN Creatinine Ratio 13.6 (10-20); Calcium 8.4 mg/dl (8.6-10.3); Creatinine Clr Calc Pharmacy 9.2 ml/min; Potassium 5.1 mmol/L (3.5-5.1)
--- NOTE | 2024-11-01 14:36 | Dialysis Progress Note ---
Date of Service November 01, 2024 Assessment & Plan (1) End stage renal disease on dialysis: Plan: patient with ESRD on dialysis Friday. She is now admitted with COVID pneumonia. She had dialysis 10/30 for 3 hours but dialysis was stopped 1 hour before time due to extreme weakness and altered mental status. She feels better today but still borderline hypotensive; remains hypoxic. Potassium is 5.1 on lokelma. -continue midodrine 10 mg tid -stopped lokelma -for 2 hr tx today > whether for d/c or not, will resume regular OP dialysis schedule tomorrow (2) Acute hypoxemic respiratory failure: Plan: acute hypoxic respiratory failure due to COVID pneumonia. Chest x-ray showed cardiomegaly and the increased vascular markings. She had dialysis 10/30. This is likely due to COVID pneumonia. Continue supportive management for COVID infection. Will plan dialysis per routine tomorrow. Titrate oxygen to keep sats above 92 % (3) COVID-19: Plan: she is on Decadron per primary team. Admission and Anticipated Discharge Date Admission Date: October 30, 2024 Subjective improving but still on oxygen and still very weak; no sob; productive cough; no f/c Review of Systems 2 Review of Systems: All systems reviewed & are unremarkable except as noted in Subjective Physical Exam 2 Constitutional: well developed (on 02NC) and well nourished Eyes: EOM intact bilaterally ENMT: Mouth: + dry oral mucous membranes Neck: no nuchal rigidity Respiratory: normal respiratory effort Auscultation: + diminished lung sounds Gastrointestinal (Abdomen): Inspection/Auscultation: normal bowel sounds P ercussion/Palpation: abdomen soft; abdomen nontender Musculoskeletal: Extremities: strength 5/5 throughout Skin: no rashes, warm and dry Neurologic: valdez, fluent speech, no tremor Results & Data Vital Signs (Past 12 Hours) Vital Signs Temp Pulse Resp BP Pulse Ox O2 Del Method O2 Flow Rate 11/01/24 11:02 36.5 C 72 18 106/65 99 Nasal Cannula 2 11/01/24 07:38 36.3 C L 66 20 97/62 L 99 Nasal Cannula 2 11/01/24 03:40 36.5 C 72 18 100/65 100 Nasal Cannula 2 Laboratory Results 10/31/24 05:52 11/01/24 06:11
[2024-11-01] MEDS: HEPARIN SOD (PORCINE) 1000 UNIT/ML IV SCH (15:14)
[2024-11-01] MEDS: HEPARIN SOD (PORCINE) 1000 UNIT/ML IV ONE (15:14)
[2024-11-01] MEDS: EPOETIN ALFA 10,000 UNITS/ML VIAL IV ONE (16:04)
--- NOTE | 2024-11-02 08:10 | XRay Report ---
EXAM: XR chest 1V portable CLINICAL HISTORY: PULMONARY EDEMA ENZO. TECHNIQUE: An X-ray image of the chest is obtained in AP projection. COMPARISON: 10/30/2024 X-ray. FINDINGS: Pulmonary Parenchyma: Stable right lower lobe para cardiac and upper lobe patchy areas of air opacification, likely inflammatory/infectious. No evidence of pleural effusion or pleural thickening. Heart and Mediastinum: Stable cardiomegaly. Mild mediastinal widening. Bony Thorax: Bony thorax appears intact without fractures or deformities. Soft Tissues: Soft tissues overlying the chest wall are unremarkable. IMPRESSION: 1. Stable right lower lobe para cardiac and upper lobe patchy areas of air opacification, likely inflammatory/infectious. 2. Stable cardiomegaly. 3. No changes since the last study. Electronically signed by Isaias Hughes 11-02-2024 08:09 AM
[2024-11-02] MEDS: CHOLECALCIFEROL 125 MCG (5,000 UNITS) TAB PO SCH (08:40)
[2024-11-02] MEDS: GABAPENTIN 100 MG CAP PO SCH (08:40)
--- NOTE | 2024-11-02 10:32 | Dialysis Progress Note ---
Date of Service November 02, 2024 Assessment & Plan (1) End stage renal disease on dialysis: Plan: patient with ESRD on dialysis Friday. She is now admitted with COVID pneumonia. She had dialysis 10/30 for 3 hours but dialysis was stopped 1 hour before time due to extreme weakness and altered mental status. She feels better today with more energy but remains hypoxic w/ slightly increased WOB on exam. Potassium is 5.1 on lokelma. 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 Chest x-ray showed cardiomegaly and the increased vascular markings. She had dialysis 10/30 w/ short tx 11/01. This is likely due to COVID pneumonia. Continue supportive management for COVID infection. Titrate oxygen to keep sats above 92 % >> down to 1L today (3) COVID-19: Plan: she is on Decadron per primary team. Admission and Anticipated Discharge Date Admission Date: October 30, 2024 Subjective seen on dialysis; feels a bit more energetic but still tired, still slight sob though this is better too. no uncontrolled pain. Review of Systems 2 Review of Systems: All systems reviewed & are unremarkable except as noted in Subjective Physical Exam 2 Constitutional: well developed (on 02NC) and well nourished Eyes: EOM intact bilaterally ENMT: Mouth: + dry oral mucous membranes Neck: no nuchal rigidity Respiratory: normal respiratory effort and + paradoxical thoraco-abdominal movement; no cough Auscultation: + diminished lung sounds Cardiovascular: RRR, no murmur, no edema Extremities: + AV fistula Gastrointestinal (Abdomen): Inspection/Auscultation: normal bowel sounds P ercussion/Palpation: abdomen soft; abdomen nontender Musculoskeletal: Extremities: strength 5/5 throughout Skin: no rashes, warm and dry Neurologic: valdez, fluent speech, no tremor Psychiatric: Orientation: alert and oriented x 3 Results & Data Vital Signs (Past 12 Hours) Vital Signs Temp Pulse Pulse Resp BP BP Pulse Ox 11/02/24 10:00 67 108/51 L 11/02/24 09:48 73 106/56 L 11/02/24 09:40 36.7 C 73 11/02/24 08:00 11/02/24 07:50 63 11/02/24 07:30 36.4 C L 71 17 100/62 96 11/02/24 05:32 95 11/02/24 03:04 36.9 C 72 16 107/62 100 11/02/24 01:36 76 11/01/24 22:57 O2 Del Method O2 Flow Rate 11/02/24 10:00 11/02/24 09:48 11/02/24 09:40 11/02/24 08:00 Nasal Cannula 1 11/02/24 07:50 11/02/24 07:30 Nasal Cannula 1 11/02/24 05:32 Nasal Cannula 1 11/02/24 03:04 Nasal Cannula 2 11/02/24 01:36 11/01/24 22:57 Nasal Cannula 2 Laboratory Results 10/31/24 05:52 11/01/24 06:11
[2024-11-02] MEDS: EPOETIN ALFA 10,000 UNITS/ML VIAL IV ONE (10:54)
[2024-11-02] MEDS: HEPARIN SOD (PORCINE) 1000 UNIT/ML IV ONE (11:20)
[2024-11-02] MEDS: HEPARIN SOD (PORCINE) 1000 UNIT/ML IV SCH (11:20)
[2024-11-02] MEDS ORDERED: CALCIUM ACETATE 667 MG CAP/TAB PO PRN (13:44)
[2024-11-02] MEDS: ONDANSETRON INJ 2 MG/ML 2 ML VIAL IV STA (15:16)
--- NOTE | 2024-11-02 16:54 | Hospitalist Progress Note ---
Date of Service November 02, 2024 Assessment & Plan (1) Acute hypoxemic respiratory failure: Plan: It is unclear whether this is new or chronic, at this point after 2 sessions of hemodialysis and volume removal, I feel that part of this is chronic or may have been acute on chronic. Oxygen arrangement was made, patient will be going home on oxygen. We have to factor her coexisting COVID positive state as well so this could be just purely acute. (2) COVID-19: Plan: In the light of her hypoxemia, I think at this point she would fit treatment with remdesivir. May consider treating for now. (3) End stage renal disease on dialysis: Plan: Continue with hemodialysis per nephrology. Continue with Cinacalcet and E- poietin (4) DM type 2 (diabetes mellitus, type 2): Plan: Continue with sliding scale coverage, glycemic control is partly affected by steroid use. (5) Dyslipidemia: Plan: Continue with simvastatin. Plan Initially her hypoxemia was considered to be due to pulmonary edema as this was evident on chest x-ray and it did show improvement with hemodialysis however her ongoing hypoxemia is questionable and with the presence of COVID-19, I feel that part of this could be attributed to that so we will place her on remdesivir. Admission and Anticipated Discharge Date Admission Date: October 30, 2024 Subjective This is a 69 y/o female with ESRD on HD, DM2, hx PE, anemia in ESRD, psoriasis, hyperlipidemia, and other history as outlined below who presented to the ED from HD today with confusion and weakness. Pt reports that four days ago, started with malaise and myalgias then developed weakness, fatigue, and PND. Three days ago, took a home COVID test that was positive. She didn't go to HD on (two days ago) because of being sick. She went to HD today but session had to be ended an hour early because of increased confusion and weakness. She came to the hospital with some shortness of breath, was managed with oxygen as patient was reportedly having hypoxemia with saturation of 87% on room air. Patient underwent first hemodialysis session on 11/01/2024, after the dialysis patient continued to remain hypoxic requiring supplemental oxygen which was new finding, I ordered another chest x-ray today on 11/02/2024, it should much improvement in bilateral pulmonary edema but she still had some haziness bilaterally so we decided to run her usual dialysis here, after the procedure, she continued to have hypoxemia, two-step test was done showing patient needed 1 L at rest and 2 L during exertion to keep oxygen saturation above 90%. This was coordinated with case management to arrange oxygen however when I went to the room to some at up, patient told me that her at this time of the afternoon cannot get here because of the weather and so we decided to postpone the discharge tomorrow. Physical Exam Physical Exam: VITALS: Reviewed. WEIGHT/BMI reviewed. GEN: Healthy appearing, well-developed, NAD. CV: RRR, no m/r/g. LUNGS: CTAB, no w/r/c. ABD: Soft, NT/ND, NBS, no masses or organomegaly. : N/A Results & Data Results & Data Vital Signs (Past 12 Hours) Vital Signs Temp Pulse Pulse Pulse Pulse Pulse Pulse 11/02/24 16:17 11/02/24 15:51 36.9 C 76 11/02/24 15:25 108 H 102 H 84 11/02/24 14:17 36.5 C 72 11/02/24 13:52 36.5 C 70 11/02/24 13:30 56 L 11/02/24 13:00 68 11/02/24 12:30 67 11/02/24 12:00 52 L 11/02/24 11:30 69 11/02/24 11:00 70 11/02/24 10:30 63 11/02/24 10:00 67 11/02/24 09:48 73 11/02/24 09:40 36.7 C 73 11/02/24 08:00 11/02/24 07:50 63 11/02/24 07:30 36.4 C L 71 11/02/24 05:32 Pulse Resp Resp Resp Resp Resp BP 11/02/24 16:17 11/02/24 15:51 20 11/02/24 15:25 86 24 20 18 18 11/02/24 14:17 18 11/02/24 13:52 11/02/24 13:30 112/45 L 11/02/24 13:00 115/60 11/02/24 12:30 122/41 L 11/02/24 12:00 102/46 L 11/02/24 11:30 100/51 L 11/02/24 11:00 111/55 L 11/02/24 10:30 93/48 L 11/02/24 10:00 108/51 L 11/02/24 09:48 106/56 L 11/02/24 09:40 11/02/24 08:00 11/02/24 07:50 11/02/24 07:30 17 11/02/24 05:32 BP Pulse Ox Pulse Ox Pulse Ox Pulse Ox Pulse Ox O2 Del Method 11/02/24 16:17 Nasal Cannula 11/02/24 15:51 102/46 L 97 Nasal Cannula 11/02/24 15:25 88 L 90 92 85 L 11/02/24 14:17 131/71 94 Room Air 11/02/24 13:52 125/55 L 11/02/24 13:30 11/02/24 13:00 11/02/24 12:30 11/02/24 12:00 11/02/24 11:30 11/02/24 11:00 11/02/24 10:30 11/02/24 10:00 11/02/24 09:48 11/02/24 09:40 11/02/24 08:00 Nasal Cannula 11/02/24 07:50 11/02/24 07:30 100/62 96 Nasal Cannula 11/02/24 05:32 95 Nasal Cannula O2 Flow Rate O2 Flow Rate O2 Flow Rate O2 Flow Rate 11/02/24 16:17 1 11/02/24 15:51 1 11/02/24 15:25 1 2 1 11/02/24 14:17 11/02/24 13:52 11/02/24 13:30 11/02/24 13:00 11/02/24 12:30 11/02/24 12:00 11/02/24 11:30 11/02/24 11:00 11/02/24 10:30 11/02/24 10:00 11/02/24 09:48 11/02/24 09:40 11/02/24 08:00 1 11/02/24 07:50 11/02/24 07:30 1 11/02/24 05:32 1 Laboratory Results Laboratory Results - last 24 hr 11/01/24 11/01/24 11/02/24 17:00 20:32 07:27 POC Glucose 117 H 172 H 111 H 01/14/25 01/14/25 14:06 16:31 POC Glucose 133 H 161 H Diagnostic Findings Chest X-Ray 11/02/24 06:51 EXAM: XR chest 1V portable CLINICAL HISTORY: PULMONARY EDEMA ENZO. TECHNIQUE: An X-ray image of the chest is obtained in AP projection. COMPARISON: 10/30/2024 X-ray. FINDINGS: Pulmonary Parenchyma: Stable right lower lobe para cardiac and upper lobe patchy areas of air opacification, likely inflammatory/infectious. No evidence of pleural effusion or pleural thickening. Heart and Mediastinum: Stable cardiomegaly. Mild mediastinal widening. Bony Thorax: Bony thorax appears intact without fractures or deformities. Soft Tissues: Soft tissues overlying the chest wall are unremarkable. IMPRESSION: 1. Stable right lower lobe para cardiac and upper lobe patchy areas of air opacification, likely inflammatory/infectious. 2. Stable cardiomegaly. 3. No changes since the last study. Electronically signed by Isaias Hughes 11-02-2024 08:09 AM Medications Administered Current Inpatient Medications Acetaminophen (Acetaminophen 325 Mg Tab) 650 mg PO QID PRN PRN Reason: pain/fever Stop: 11/29/24 22:56 Last Admin: 11/02/24 04:46 Dose: 650 mg Albuterol (Albuterol Hfa 8 Gm Inhaler) 2 puffs INH Q6H PRN PRN Reason: Wheezing Stop: 11/29/24 18:29 Calcium Acetate (Calcium Acetate 667 Mg Cap/Tab) 1,334 mg PO AC STEPHAN Stop: 12/02/24 16:29 Calcium Acetate (Calcium Acetate 667 Mg Cap/Tab) 667 mg PO DAILY PRN PRN Reason: SNACK Stop: 12/02/24 13:43 Cinacalcet (Cinacalcet Hcl 90 Mg Tab) 90 mg PO QPM STEPHAN Stop: 11/29/24 20:59 Last Admin: 11/01/24 21:46 Dose: 90 mg Citalopram Hydrobromide (Citalopram 20 Mg Tab) 20 mg PO QAM STEPHAN Stop: 11/30/24 08:59 Last Admin: 11/02/24 08:40 Dose: 20 mg Dextrose (Dextrose 50% 50 Ml Syringe) 25 - 50 ml IV UD PRN; Protocol PRN Reason: Hypoglycemia Protocol Stop: 11/29/24 18:28 Fluticasone/Vilanterol (Fluticasone/Vilanterol 200/25mcg 14 Puffs/Inhaler) 1 puffs INH DAILY PRN PRN Reason: asthma Stop: 11/29/24 18:29 Gabapentin (Gabapentin 100 Mg Cap) 100 mg PO SuMoWeFr@0900 [facility] Stop: 11/30/24 08:59 Last Admin: 11/01/24 09:28 Dose: 100 mg Gabapentin (Gabapentin 100 Mg Cap) 200 mg PO TuThSa@0900 [facility] Stop: 12/02/24 08:59 Last Admin: 11/02/24 08:40 Dose: 200 mg Glucagon (Glucagon For Inj 1 Mg Vial) 1 mg SQ UD PRN; Protocol PRN Reason: Hypoglycemia Protocol Stop: 11/29/24 18:28 Glucose (Glucose 40% Gel 15 Gm Tube) 15 - 30 gm PO UD PRN; Protocol PRN Reason: Hypoglycemia Protocol Stop: 11/29/24 18:28 Glucose (Glucose 10 Tab/Tube) 4 - 8 tab PO UD PRN; Protocol PRN Reason: Hypoglycemia Protocol Stop: 11/29/24 18:28 Heparin Sodium (Porcine) (Heparin Sod 5,000 Unit/0.5 Ml Vial) 5,000 units SQ Q12 STEPH[facility] Stop: 11/29/24 20:59 Last Admin: 11/02/24 14:10 Dose: 5,000 units Dexamethasone 6 mg/ Syringe 1.5 mls @ 1 mls/min IV DAILY [facility] Stop: 11/09/24 17:59 Last Admin: 11/02/24 08:39 Dose: 1 mls/min Insulin Aspart (Insulin Aspart Per Unit Charge) 0 units SC ACHS [facility] Stop: 11/29/24 20:59 Last Admin: 11/02/24 15:06 Dose: Not Given Midodrine (Midodrine Hcl 10 Mg Tab) 10 mg PO TID@0800,1200,1700 [facility] Stop: 11/30/24 11:59 Last Admin: 11/02/24 11:19 Dose: 10 mg Miscellaneous (Carbohydrates For Hypoglycemia ) 15 - 30 gm PO UD PRN PRN Reason: Hypoglycemia Protocol Stop: 11/29/24 18:28 Nystatin (Nystatin Powder 15gm Btl) 1 appln EXT BID [facility] Stop: 11/29/24 20:59 Last Admin: 11/02/24 08:40 Dose: 1 appln Oxycodone HCl (Oxycodone Hcl Ir 5 Mg Tab (Immediate Release)) 5 mg PO Q8H PRN PRN Reason: Pain Stop: 11/13/24 18:29 Last Admin: 11/01/24 22:03 Dose: 5 mg Ropinirole HCl (Ropinirole Hcl 2 Mg Tablet) 2 mg PO [facility] Stop: 11/29/24 20:59 Last Admin: 11/01/24 21:46 Dose: 2 mg Simvastatin (Simvastatin 20 Mg Tab) 20 mg PO [facility] Stop: 11/29/24 20:59 Last Admin: 11/01/24 21:47 Dose: 20 mg Sodium Zirconium Cyclosilicate (Sodium Zirconium Cyclosilicate 10 Gm Packet) 10 gm PO DAILY@1100 [facility] Stop: 11/30/24 10:59 Last Admin: 11/02/24 14:08 Dose: 10 gm Vitamin D (Cholecalciferol 125 Mcg (5,000 Units) Tab) 125 mcg PO TuThSa@0900 [facility] Stop: 12/02/24 08:59 Last Admin: 11/02/24 08:40 Dose: 125 mcg (4) DM type 2 (diabetes mellitus, type 2) Diabetes mellitus [facility] insulin use: without emt intermediate use Diabetes mellitus complication status: with kidney complications Diabetes mellitus complication detail: with chronic kidney disease Chronic kidney disease stage: on chronic dialysis Qualified Code(s): E11.22 - Type 2 diabetes mellitus with diabetic chronic kidney disease; N18.6 - End stage renal disease; Z99.2 - Dependence on renal dialysis
[2024-11-02] MEDS: CALCIUM ACETATE 667 MG CAP/TAB PO SCH (17:30)
[2024-11-02] MEDS: REMDESIVIR 200 MG in SODIUM CHLORIDE 0.9% 210 ML IV ONE (17:32)
[2024-11-02] MEDS: ONDANSETRON INJ 2 MG/ML 2 ML VIAL IV PRN (23:46)
[2024-11-03] MEDS ORDERED: POLYETHYLENE (MIRALAX) 17 GM PACK PO PRN (06:55)
[2024-11-03] MEDS: POLYETHYLENE (MIRALAX) 17 GM PACK PO STA (07:02)
[2024-11-03] MEDS: DOCUSATE SODIUM/SENNA 50/8.6MG TAB PO SCH (07:02)
[2024-11-03] MEDS: METOCLOPRAMIDE HCL INJ 5 MG/ML 2 ML VIAL IV PRN (10:41)
[2024-11-03] MEDS: FAMOTIDINE 10 MG TABLET PO ONE (12:08)
--- NOTE | 2024-11-03 15:31 | Hospitalist Progress Note ---
Date of Service November 03, 2024 Assessment & Plan (1) Acute hypoxemic respiratory failure: Plan: -likely 2/2 to multifactorial reasons, COVID, ESRD, perhaps undiagnosed MINDI -appears stable on current oxygen levels, on 1 liter Plan: -stop remdesevir given nausea/vomiting and unlikely to provide significant benefit this late after diagnosis -continue dialysis fluid removal, incentive spirometry, inhalers -continue decadron, transition to prednisone on discharge (2) COVID-19: Plan: -see above (3) End stage renal disease on dialysis: Plan: -Continue with hemodialysis per nephrology. Continue with Cinacalcet and E- poietin (4) DM type 2 (diabetes mellitus, type 2): Plan: -Continue with sliding scale coverage, glycemic control is partly affected by steroid use. (5) Dyslipidemia: Plan: -Continue with simvastatin. (6) Nausea & vomiting: Plan: -since started right after remdesevir, likely related -other etiologies include gastritis vs. less likely ulcers, other drug effects Plan: -continue zofran prn -start reglan prn for breakthrough Plan Feeding/fluids: renal diabetic Analgesia: tylenol, stop oxy Sedation: na Thromboprophylaxis: heparin Head up position: na Ulcer prophylaxis: na Glycemic control: insulin protocol Spontaneous breathing trial: 1 L NC Bowel care: miralax prn Indwelling catheter removal: none Deescalation of antibiotics: na I spent a total of 40 minutes coordinating, documenting, and providing care for this patient excluding time spent in the performance of separately billed services. Admission and Anticipated Discharge Date Admission Date: October 30, 2024 Subjective Patient seen and examined at bedside. She states she now has nausea and vomiting since last night. She feels well enough to go home otherwise but now has this nausea and vomiting and does not feel comfortable going home today. Otherwise shortness of breath has improved along with her other symptoms. Review of Systems Review of Systems: CONSTITUTIONAL: Patient denies fevers, chills, sweats and weight changes. EYES: Patient denies any visual symptoms. EARS, NOSE, AND THROAT: No difficulties with hearing. No symptoms of rhinitis or sore throat. CARDIOVASCULAR: Patient denies chest pains, palpitations, orthopnea and paroxys mal nocturnal dyspnea. RESPIRATORY: mild SOB GI: nausea/vomiting : No urinary hesitancy or dribbling. No nocturia or urinary frequency. No abnormal urethral discharge. MUSCULOSKELETAL: No myalgias or arthralgias. NEUROLOGIC: No chronic headaches, no seizures. Patient denies numbness, tingling or weakness. PSYCHIATRIC: Patient denies problems with mood disturbance. No problems with anxiety. ENDOCRINE: No excessive urination or excessive thirst. DERMATOLOGIC: Patient denies any rashes or skin changes. Physical Exam Physical Exam: Gen: A&O 3 NAD, appears slightly uncomfortable HEENT: NCAT, EOMI, not icteric. External ears normal. No rhinorrhea. Moist mucous membranes. Neck: Supple, full range of motion, no observable masses, No meningeal sign. Lungs: No Respiratory distress. CV: RRR, no edema. Abdomen: Soft, nondistended, No rebound tenderness. MSK: No joint swelling, no redness. Skin: No rashes, petechiae, lesions. Normal color per patient. Neuro: Normal Gait, Grossly intact. Psych: Appropriate for situation. Results & Data Results & Data Vital Signs (Past 12 Hours) Vital Signs Temp Pulse Pulse Resp BP Pulse Ox O2 Del Method 11/03/24 14:59 74 11/03/24 11:44 64 11/03/24 10:04 36.3 C L 71 18 135/69 93 Nasal Cannula 11/03/24 07:21 Nasal Cannula 11/03/24 07:18 36.8 C 67 18 145/74 H 95 Nasal Cannula O2 Flow Rate 11/03/24 14:59 11/03/24 11:44 11/03/24 10:04 1 11/03/24 07:21 1 11/03/24 07:18 1 Laboratory Results Laboratory Results WBC 2.97 K/ul (4.8-10.8) L 10/31/24 05:52 RBC 3.08 M/uL (4.20-5.40) L 10/31/24 05:52 Hgb 9.6 g/dl (12.0-16.0) L 10/31/24 05:52 Hct 31.0 % (37.0-47.0) L 10/31/24 05:52 MCV 100.6 fL (80.0-100.0) H 10/31/24 05:52 MCH 31.2 pg (25.0-34.0) 10/31/24 05:52 MCHC 31.0 g/dL (32.0-36.0) L 10/31/24 05:52 RDW Std Deviation 58.4 fL (36.4-46.3) H 10/31/24 05:52 RDW Coeff of Erum 15.9 % (11.5-14.5) H 10/31/24 05:52 Plt Count 139 K/uL (130-400) 10/31/24 05:52 MPV 9.5 fL (9.4-12.4) 10/31/24 05:52 Immature Gran % (Auto) 0.7 % 10/31/24 05:52 Neut % (Auto) 80.5 % 10/31/24 05:52 Lymph % (Auto) 14.8 % 10/31/24 05:52 Wake % (Auto) 3.4 % 10/31/24 05:52 Eos % (Auto) 0.3 % 10/31/24 05:52 Baso % (Auto) 0.3 % 10/31/24 05:52 Neut # (Auto) 2.39 K/uL (1.40-6.50) 10/31/24 05:52 Lymph # (Auto) 0.44 K/uL (1.20-3.40) L 10/31/24 05:52 Wake # (Auto) 0.10 K/uL (0.11-0.59) L 10/31/24 05:52 Eos # (Auto) 0.01 K/uL (0.00-0.50) 10/31/24 05:52 Baso # (Auto) 0.01 K/uL (0.00-0.20) 10/31/24 05:52 Immature Gran # (Auto) 0.02 K/uL (0.01-0.20) 10/31/24 05:52 PT 11.0 Seconds (9.0-12.0) 10/30/24 12:00 INR 1.0 (0.9-1.1) 10/30/24 12:00 VBG pH 7.38 (7.36-7.41) 10/30/24 23:51 VBG pCO2 54 mmHg (38-50) H 10/30/24 23:51 VBG pO2 78 mmHg 10/30/24 23:51 VBG HCO3 32 mmol/L 10/30/24 23:51 VBG O2 Saturation 95.4 % 10/30/24 23:51 VBG Base Excess 5.3 mEq/L 10/30/24 23:51 Sodium 143 mmol/L (136-145) 11/01/24 06:11 Potassium 5.1 mmol/L (3.5-5.1) 11/01/24 06:11 Chloride 101 mmol/L (98-107) 11/01/24 06:11 Carbon Dioxide 29 mmol/L (21-32) 11/01/24 06:11 Anion Gap 13 (3-11) H 11/01/24 06:11 BUN 81 mg/dl (6-23) H D 11/01/24 06:11 Creatinine 5.95 mg/dl (0.6-1.2) H* D 11/01/24 06:11 Est Cr Clr Drug Dosing 9.2 ml/min 11/01/24 06:11 eGFR 7.13 11/01/24 06:11 BUN/Creatinine Ratio 13.6 (10-20) 11/01/24 06:11 Glucose 114 mg/dl (70-99(Fasting)) H 11/01/24 06:11 POC Glucose 151 mg/dl (70-99) H 11/03/24 11:30 Estimat Average Glucose 97 mg/dl 10/31/24 05:52 Hemoglobin A1c 5.0 % (4.5-5.6) 10/31/24 05:52 Lactate 0.9 mmol/L (0.4-2.0) 10/30/24 12:00 Calcium 8.4 mg/dl (8.6-10.3) L 11/01/24 06:11 Phosphorus 7.1 mg/dl (2.5-4.9) H 10/31/24 05:52 Magnesium 2.4 mg/dl (1.7-2.4) 10/31/24 05:52 Total Bilirubin 0.4 mg/dl (0.2-1.0) 10/30/24 12:00 AST 19 U/L (13-39) 10/30/24 12:00 ALT 14 U/L (7-52) 10/30/24 12:00 Alkaline Phosphatase 93 U/L (34-104) 10/30/24 12:00 Troponin I High Sens 30.5 pg/ml (0-14) H 10/30/24 19:44 Total Protein 7.2 gm/dl (6.0-8.3) 10/30/24 12:00 Albumin 3.7 gm/dl (3.4-5.0) 10/30/24 12:00 Globulin 3.5 gm/dl (2.5-4.0) 10/30/24 12:00 Albumin/Globulin Ratio 1.1 (0.9-2) 10/30/24 12:00 Procalcitonin 0.50 ng/ml (0-0.5) 10/30/24 12:00 TSH 0.465 uIu/ml (0.300-4.500) 10/30/24 12:00 Urine Color Yellow 10/30/24 Unknown Urine Appearance Cloudy (Clear) A 10/30/24 Unknown Urine pH >= 9.0 (4.5-7.5) H 10/30/24 Unknown Ur Specific Newell 1.010 (1.000-1.030) 10/30/24 Unknown Urine Protein 2+ (Negative) H 10/30/24 Unknown Urine Glucose (UA) 1+ (Negative) H 10/30/24 Unknown Urine Ketones Negative (Negative) 10/30/24 Unknown Urine Blood 2+ (Negative) H 10/30/24 Unknown Urine Nitrite Negative (Negative) 10/30/24 Unknown Urine Bilirubin Negative (Negative) 10/30/24 Unknown Urine Urobilinogen Negative (Negative) 10/30/24 Unknown Ur Leukocyte Esterase 3+ (Negative) H 10/30/24 Unknown Urine WBC (Auto) 11-20 /hpf (0-5) H 10/30/24 Unknown Urine RBC (Auto) >20 /hpf (0-2) H 10/30/24 Unknown U Hyaline Cast (Auto) 3-5 /lpf (0-2) H 10/30/24 Unknown U Epithel Cells (Auto) >20 /hpf (0-2) H 10/30/24 Unknown Urine Bacteria (Auto) 4+ (None Seen) H 10/30/24 Unknown Adenovirus (PCR) Not Detected (NotDetected) 10/30/24 11:28 B. pertussis DNA (PCR) Not Detected (NotDetected) 10/30/24 11:28 B.parapertussis DNA PCR Not Detected (NotDetected) 10/30/24 11:28 C. pneumoniae DNA (PCR) Not Detected (NotDetected) 10/30/24 11:28 Coronavirus OC43 (PCR) Not Detected (NotDetected) 10/30/24 11:28 Coronavirus HKU1 (PCR) Not Detected (NotDetected) 10/30/24 11:28 Coronavirus 229E (PCR) Not Detected (NotDetected) 10/30/24 11:28 SARS-CoV-2 (PCR) DETECTED (NotDetected) A 10/30/24 11:28 Coronavirus NL63 (PCR) Not Detected (NotDetected) 10/30/24 11:28 Human Metapneumovir PCR Not Detected (NotDetected) 10/30/24 11:28 Influenza Type A (PCR) Not Detected (NotDetected) 10/30/24 11:28 Influenza Type B (PCR) Not Detected (NotDetected) 10/30/24 11:28 M. pneumoniae (PCR) Not Detected (NotDetected) 10/30/24 11:28 Parainfluenza 1 (PCR) Not Detected (NotDetected) 10/30/24 11:28 Parainfluenza 2 (PCR) Not Detected (NotDetected) 10/30/24 11:28 Parainfluenza 3 (PCR) Not Detected (NotDetected) 10/30/24 11:28 Parainfluenza 4 (PCR) Not Detected (NotDetected) 10/30/24 11:28 RSV (PCR) Not Detected (NotDetected) 10/30/24 11:28 Entero/Rhino (PCR) Not Detected (NotDetected) 10/30/24 11:28 Impressions Chest X-Ray 11/02/24 06:51 EXAM: XR chest 1V portable CLINICAL HISTORY: PULMONARY EDEMA ENZO. TECHNIQUE: An X-ray image of the chest is obtained in AP projection. COMPARISON: 10/30/2024 X-ray. FINDINGS: Pulmonary Parenchyma: Stable right lower lobe para cardiac and upper lobe patchy areas of air opacification, likely inflammatory/infectious. No evidence of pleural effusion or pleural thickening. Heart and Mediastinum: Stable cardiomegaly. Mild mediastinal widening. Bony Thorax: Bony thorax appears intact without fractures or deformities. Soft Tissues: Soft tissues overlying the chest wall are unremarkable. IMPRESSION: 1. Stable right lower lobe para cardiac and upper lobe patchy areas of air opacification, likely inflammatory/infectious. 2. Stable cardiomegaly. 3. No changes since the last study. Electronically signed by Isaias Hughes 11-02-2024 08:09 AM Medications Administered Acetaminophen (Acetaminophen 325 Mg Tab) 650 mg PO QID PRN PRN Reason: pain/fever Stop: 11/29/24 22:56 Last Admin: 11/02/24 04:46 Dose: 650 mg Documented By: Admin: 10/31/24 22:39 Dose: 650 mg Documented By: Admin: 10/31/24 08:45 Dose: 650 mg Documented By: Admin: 10/30/24 23:22 Dose: 650 mg Documented By: KEVIN Calcium Acetate (Calcium Acetate 667 Mg Cap/Tab) 1,334 mg PO AC [facility] Stop: 12/02/24 16:29 Last Admin: 11/03/24 11:49 Dose: Not Given Documented By: Admin: 11/03/24 09:19 Dose: 1,334 mg Documented By: Admin: 11/02/24 17:30 Dose: 1,334 mg Documented By: SUZY Cinacalcet (Cinacalcet Hcl 90 Mg Tab) 90 mg PO QPM [facility] Stop: 11/29/24 20:59 Last Admin: 11/02/24 20:46 Dose: 90 mg Documented By: Admin: 11/01/24 21:46 Dose: 90 mg Documented By: Admin: 10/31/24 20:38 Dose: 90 mg Documented By: KDKate Admin: 10/30/24 20:13 Dose: 90 mg Documented By: KEVIN Citalopram Hydrobromide (Citalopram 20 Mg Tab) 20 mg PO QAM STEPHAN Stop: 11/30/24 08:59 Last Admin: 11/03/24 09:19 Dose: 20 mg Documented By: Admin: 11/02/24 08:40 Dose: 20 mg Documented By: Admin: 11/01/24 09:28 Dose: 20 mg Documented By: Admin: 10/31/24 08:46 Dose: 20 mg Documented By: LORAINE Gabapentin (Gabapentin 100 Mg Cap) 100 mg PO SuMoWeFr@0900 [facility] Stop: 11/30/24 08:59 Last Admin: 11/03/24 09:19 Dose: 100 mg Documented By: Admin: 11/01/24 09:28 Dose: 100 mg Documented By: Admin: 10/31/24 08:46 Dose: 100 mg Documented By: LORAINE Gabapentin (Gabapentin 100 Mg Cap) 200 mg PO TuThSa@0900 [facility] Stop: 12/02/24 08:59 Last Admin: 11/02/24 08:40 Dose: 200 mg Documented By: Heparin Sodium (Porcine) (Heparin Sod 5,000 Unit/0.5 Ml Vial) 5,000 units SQ Q12 [facility] Stop: 11/29/24 20:59 Last Admin: 11/03/24 09:37 Dose: 5,000 units Documented By: Admin: 11/02/24 20:45 Dose: 5,000 units Documented By: Admin: 11/02/24 14:10 Dose: 5,000 units Documented By: Admin: 11/01/24 21:45 Dose: 5,000 units Documented By: Admin: 11/01/24 09:44 Dose: 5,000 units Documented By: Admin: 10/31/24 20:37 Dose: 5,000 units Documented By: Admin: 10/31/24 08:46 Dose: 5,000 units Documented By: Admin: 10/30/24 20:13 Dose: 5,000 units Documented By: KEVIN Dexamethasone 6 mg/ Syringe 1.5 mls @ 1 mls/min IV DAILY [facility] Stop: 11/09/24 17:59 Last Admin: 11/03/24 09:19 Dose: 1 mls/min Documented By: Admin: 11/02/24 08:39 Dose: 1 mls/min Documented By: Admin: 11/01/24 09:27 Dose: 1 mls/min Documented By: Admin: 10/31/24 10:55 Dose: 1 mls/min Documented By: Admin: 10/30/24 21:32 Dose: 1 mls/min Documented By: KEVIN Insulin Aspart (Insulin Aspart Per Unit Charge) 0 units SC ACHS [facility] Stop: 11/29/24 20:59 Last Admin: 11/03/24 11:49 Dose: Not Given Documented By: Admin: 11/03/24 08:38 Dose: Not Given Documented By: Admin: 11/02/24 21:18 Dose: Not Given Documented By: Admin: 11/02/24 17:30 Dose: 1 units Documented By: SUZY Co-signed By: BALWINDER Admin: 11/02/24 15:06 Dose: Not Given Documented By: SUZY Co-signed By: Admin: 11/02/24 08:08 Dose: Not Given Documented By: Admin: 11/01/24 21:45 Dose: 1 units Documented By: PINO Co-signed By: KAVON Admin: 11/01/24 17:48 Dose: 2 units Documented By: DEONDRE Co-signed By: BALWINDER Admin: 11/01/24 12:10 Dose: 4 units Documented By: DEONDRE Co-signed By: BALWINDER Admin: 11/01/24 09:35 Dose: 2 units Documented By: DEONDRE Co-signed By: BALWINDER Admin: 10/31/24 20:36 Dose: 1 units Documented By: KEVIN Co-signed By: RADHA Admin: 10/31/24 16:40 Dose: 4 units Documented By: DONTE Co-signed By: BALWINDER Admin: 10/31/24 12:30 Dose: 1 units Documented By: LORAINE Co-signed By: ALICIA Admin: 10/31/24 08:02 Dose: Not Given Documented By: Admin: 10/30/24 20:24 Dose: Not Given Documented By: KEVIN Metoclopramide HCl (Metoclopramide Hcl Inj 5 Mg/Ml 2 Ml Vial) 10 mg IV Q6H PRN PRN Reason: Nausea Stop: 12/03/24 09:49 Last Admin: 11/03/24 10:41 Dose: 10 mg Documented By: Midodrine (Midodrine Hcl 10 Mg Tab) 10 mg PO TID@0800,1200,1700 [facility] Stop: 11/30/24 11:59 Last Admin: 11/03/24 11:50 Dose: Not Given Documented By: Admin: 11/03/24 09:19 Dose: 10 mg Documented By: Admin: 11/02/24 17:31 Dose: 10 mg Documented By: Admin: 11/02/24 11:19 Dose: 10 mg Documented By: Admin: 11/02/24 08:39 Dose: 10 mg Documented By: Admin: 11/01/24 17:34 Dose: 10 mg Documented By: Admin: 11/01/24 13:29 Dose: 10 mg Documented By: Admin: 11/01/24 09:27 Dose: 10 mg Documented By: Admin: 10/31/24 16:50 Dose: 10 mg Documented By: Admin: 10/31/24 11:42 Dose: 10 mg Documented By: LORAINE Nystatin (Nystatin Powder 15gm Btl) 1 appln EXT BID STEPHAN Stop: 11/29/24 20:59 Last Admin: 11/03/24 09:20 Dose: 1 appln Documented By: Admin: 11/02/24 20:47 Dose: 1 appln Documented By: Admin: 11/02/24 08:40 Dose: 1 appln Documented By: Admin: 11/01/24 21:46 Dose: 1 appln Documented By: Admin: 11/01/24 12:12 Dose: 1 appln Documented By: Admin: 10/31/24 20:38 Dose: 1 appln Documented By: Admin: 10/31/24 08:46 Dose: 1 appln Documented By: Admin: 10/30/24 20:31 Dose: 1 appln Documented By: KEVIN Ondansetron HCl (Ondansetron Inj 2 Mg/Ml 2 Ml Vial) 4 mg IV Q4H PRN PRN Reason: Nausea Stop: 12/02/24 23:31 Last Admin: 11/03/24 05:10 Dose: 4 mg Documented By: Admin: 11/02/24 23:46 Dose: 4 mg Documented By: PINO Oxycodone HCl (Oxycodone Hcl Ir 5 Mg Tab (Immediate Release)) 5 mg PO Q8H PRN PRN Reason: Pain Stop: 11/13/24 18:29 Last Admin: 11/02/24 20:45 Dose: 5 mg Documented By: Admin: 11/01/24 22:03 Dose: 5 mg Documented By: Admin: 10/30/24 21:25 Dose: 5 mg Documented By: KEVIN Senna/Docusate Sodium (Docusate Sodium/Senna 50/8.6mg Tab) 1 tab PO QAM STEPH[facility] Stop: 12/03/24 06:54 Last Admin: 11/03/24 07:02 Dose: 1 tab Documented By: PINO Simvastatin (Simvastatin 20 Mg Tab) 20 mg PO HS [facility] Stop: 11/29/24 20:59 Last Admin: 11/02/24 20:47 Dose: 20 mg Documented By: Admin: 11/01/24 21:47 Dose: 20 mg Documented By: Admin: 10/31/24 20:39 Dose: 20 mg Documented By: Admin: 10/30/24 20:31 Dose: 20 mg Documented By: KEVIN Sodium Zirconium Cyclosilicate (Sodium Zirconium Cyclosilicate 10 Gm Packet) 10 gm PO DAILY@1100 [facility] Stop: 11/30/24 10:59 Last Admin: 11/03/24 11:50 Dose: Not Given Documented By: Admin: 11/02/24 14:08 Dose: 10 gm Documented By: Admin: 11/01/24 12:12 Dose: 10 gm Documented By: Admin: 10/31/24 10:55 Dose: 10 gm Documented By: LORAINE Vitamin D (Cholecalciferol 125 Mcg (5,000 Units) Tab) 125 mcg PO TuThSa@0900 [facility] Stop: 12/02/24 08:59 Last Admin: 11/02/24 08:40 Dose: 125 mcg Documented By: (4) DM type 2 (diabetes mellitus, type 2) Chronic kidney disease stage: on chronic dialysis Diabetes mellitus complication detail: with chronic kidney disease Diabetes mellitus complication status: with kidney complications Diabetes mellitus long term care pharmacist insulin use: without long term care pharmacist use Qualified Code(s): E11.22 - Type 2 diabetes mellitus with diabetic chronic kidney disease; N18.6 - End stage renal disease; Z99.2 - Dependence on renal dialysis (6) Nausea & vomiting Vomiting type: bilious vomiting Qualified Code(s): R11.14 - Bilious vomiting
[2024-11-03] MEDS ORDERED: FAMOTIDINE 10 MG TABLET PO SCH ×2 (16:00→21:00)
--- NOTE | 2024-11-03 18:23 | Nephrology Progress Note ---
Date of Service November 03, 2024 Assessment & Plan (1) End stage renal disease on dialysis: Plan: patient with ESRD on dialysis Friday. She is now admitted with COVID pneumonia. She had dialysis 10/30 for 3 hours but dialysis was stopped 1 hour before time due to extreme weakness and altered mental status. She feels better today with more energy but remains hypoxic w/ slightly increased WOB on exam. Potassium is 5.1 on lokelma on 11/01 -not on midodrine as OP and will lower dose to 5 mg tid for now -will stop lokelma as well -tolerated 2.7L UF yesterday (aggressive target for her) >> still on 02NC though -orders in for tx in AM to be done here >> OP unit could not accommodate her unless she comes at her regular 0545 AM time which is not feasible as not taking po reliably yet -continue cinacalcet and while here substitute phos binder phosLo (2) Acute hypoxemic respiratory failure: Plan: acute hypoxic respiratory failure due to COVID pneumonia. Chest x-ray showed cardiomegaly and the increased vascular markings. She had dialysis 10/30 w/ short tx 11/01. New hypoxemia w/ 02 dependence due to COVID pneumonia. Continue supportive management for COVID infection. Titrate oxygen to keep sats above 92 % >> down to 1L today (3) COVID-19: Plan: she is on Decadron per primary team. Admission and Anticipated Discharge Date Admission Date: October 30, 2024 Subjective had severe n/v starting yesterday afternoon and overnight > used 6 emesis bags she tells me; missed several meds this am including lokelma, midodrine dose. no sob, no current N when seen on late afternoon rounds - to start back on regular diet this evening Review of Systems 2 Review of Systems: All systems reviewed & are unremarkable except as noted in Subjective Physical Exam 2 Constitutional: well developed (on 02NC) and well nourished; no acute distress Eyes: EOM intact bilaterally ENMT: Mouth: + dry oral mucous membranes Neck: no nuchal rigidity Respiratory: normal respiratory effort and + paradoxical thoraco-abdominal movement (again); no cough Auscultation: + diminished lung sounds and + crackles ( fine bibasilar) Cardiovascular: RRR, no murmur, no edema Extremities: + AV fistula Gastrointestinal (Abdomen): Inspection/Auscultation: normal bowel sounds P ercussion/Palpation: abdomen soft; abdomen nontender Musculoskeletal: Extremities: strength 5/5 throughout Skin: no rashes, warm and dry Psychiatric: Orientation: alert and oriented x 3 Results & Data Vital Signs (Past 12 Hours) Vital Signs Temp Pulse Pulse Resp BP Pulse Ox O2 Del Method 11/03/24 16:15 36.5 C 72 18 126/69 98 Nasal Cannula 11/03/24 14:59 74 11/03/24 11:44 64 11/03/24 10:04 36.3 C L 71 18 135/69 93 Nasal Cannula 11/03/24 07:21 Nasal Cannula 11/03/24 07:18 36.8 C 67 18 145/74 H 95 Nasal Cannula O2 Flow Rate 11/03/24 16:15 1 11/03/24 14:59 11/03/24 11:44 11/03/24 10:04 1 11/03/24 07:21 1 11/03/24 07:18 1 Laboratory Results 10/31/24 05:52 11/01/24 06:11
[2024-11-03] MEDS ORDERED: REMDESIVIR 100 MG in SODIUM CHLORIDE 0.9% 230 ML IV SCH (20:00)
[2024-11-04] MEDS: CALCIUM CARBONATE 500 MG CHEWABLE TAB PO STA (00:32)
[2024-11-04] MEDS: rOPINIRole HCL 2 MG TABLET PO STA (01:12)
[2024-11-04] MEDS: MELATONIN 3 MG TAB PO PRN (02:48)
[2024-11-04 07:40] VITALS: RESP 18; O2SAT 100
[2024-11-04 08:20] LABS: Hematocrit (blood only) 38.3 % (37.0-47.0); Hemoglobin 12.2 g/dl (12.0-16.0); Mean Corpuscular Hemoglobin 31.2 pg (25.0-34.0); Mean Corpuscular Hgb Conc 31.9 g/dL (32.0-36.0); Mean Platelet Volume 9.7 fL (9.4-12.4); Nucleated RBC # (auto) 0.08 K/uL (0.00-0.12); Nucleated RBC % (auto) 0.7 %; Platelet Count 241 K/uL (130-400); RDW Coefficient of Variation 15.3 % (11.5-14.5); RDW Standard Deviation 54.7 fL (36.4-46.3); Red Blood Count 3.91 M/uL (4.20-5.40); White Blood Count 11.02 K/ul (4.8-10.8)
[2024-11-04 08:26] LABS: BUN Creatinine Ratio 11.6 (10-20); Calcium 8.7 mg/dl (8.6-10.3); Creatinine Clr Calc Pharmacy 11.9 ml/min; Magnesium 2.3 mg/dl (1.7-2.4); Potassium 3.4 mmol/L (3.5-5.1)
[2024-11-04] MEDS: MIDODRINE HCL 2.5 MG TAB PO SCH (09:02)
[2024-11-04] MEDS: HEPARIN SOD (PORCINE) 1000 UNIT/ML IV ONE (10:26)
[2024-11-04] MEDS: EPOETIN ALFA 10,000 UNITS/ML VIAL IV ONE (10:26)
--- NOTE | 2024-11-04 12:05 | Dialysis Progress Note ---
Date of Service November 04, 2024 Assessment & Plan (1) End stage renal disease on dialysis: Plan: patient with ESRD on dialysis Friday. She is now admitted with COVID pneumonia. She had dialysis 10/30 for 3 hours but dialysis was stopped 1 hour before time due to extreme weakness and altered mental status. She feels better today with more energy but remains hypoxic w/ slightly increased WOB on exam. Potassium is 5.1 on lokelma on 11/01 but 3.4 today -not on midodrine as OP and will lower dose to 5 mg tid for now -will stop lokelma as well -tolerated 2.7L UF yesterday (aggressive target for her) >> still on 02NC though -orders in for tx in AM to be done here >> OP unit could not accommodate her unless she comes at her regular 0545 AM time which is not feasible as not taking po reliably yet -continue cinacalcet and while here substitute phos binder phosLo NEPHRO D/C RECS -do not d/c on lokelma -d/c on midodrine 2.5 mg before dialysis and 2.5 mg midodrine ON dialysis PRN sbp <90 ONLY > pls no regular tid dosing -resume regular outpatient phosphorus binder (lanthanum) at discharge -continue routine OP D3, renavite, cinacalcet after d/c -no CKD clinic f/u needed > nephro will f/u w/ her at dialysis unit (2) Acute hypoxemic respiratory failure: Plan: acute hypoxic respiratory failure due to COVID pneumonia. Chest x-ray showed cardiomegaly and the increased vascular markings. She had dialysis 10/30 w/ short tx 11/01. New hypoxemia w/ 02 dependence due to COVID pneumonia. Continue supportive management for COVID infection. Titrate oxygen to keep sats above 92 % >> down to 1L today but unable to wean (3) COVID-19: Plan: she is on Decadron per primary team. Admission and Anticipated Discharge Date Admission Date: October 30, 2024 Subjective no interval events; remains on 1L 02NC and will likely d/c w/ this; no pain. marked fatigue, in part b/c ON w/ very poor sleep, some RLS sx adnjust restless Review of Systems 2 Review of Systems: All systems reviewed & are unremarkable except as noted in Subjective Physical Exam 2 Constitutional: well developed (on 02NC) and well nourished; no acute distress Eyes: EOM intact bilaterally ENMT: Mouth: + dry oral mucous membranes Neck: no nuchal rigidity Respiratory: normal respiratory effort and + paradoxical thoraco-abdominal movement (again); no cough Auscultation: + diminished lung sounds and + crackles ( fine bibasilar) Cardiovascular: RRR, no murmur, no edema Extremities: + AV fistula Gastrointestinal (Abdomen): Inspection/Auscultation: normal bowel sounds P ercussion/Palpation: abdomen soft; abdomen nontender Musculoskeletal: Extremities: strength 5/5 throughout Skin: no rashes, warm and dry Psychiatric: Orientation: alert and oriented x 3 Results & Data Vital Signs (Past 12 Hours) Vital Signs Temp Pulse Pulse Pulse Resp BP BP 11/04/24 11:30 75 106/54 L 11/04/24 11:00 71 116/53 L 11/04/24 10:40 71 104/50 L 11/04/24 10:30 69 86/48 L 11/04/24 10:00 74 100/50 L 11/04/24 09:41 73 100/49 L 11/04/24 09:20 36.4 C L 72 86 11/04/24 07:30 86 11/04/24 07:30 36.5 C 79 18 112/64 11/04/24 07:00 11/04/24 04:24 36.4 C L 92 H 19 134/74 11/04/24 01:50 89 Pulse Ox O2 Del Method O2 Flow Rate 11/04/24 11:30 11/04/24 11:00 11/04/24 10:40 11/04/24 10:30 11/04/24 10:00 11/04/24 09:41 11/04/24 09:20 11/04/24 07:30 11/04/24 07:30 100 Nasal Cannula 2 11/04/24 07:00 Nasal Cannula 2 11/04/24 04:24 97 Nasal Cannula 1.0 11/04/24 01:50 Laboratory Results 11/04/24 07:43 11/04/24 07:43
--- NOTE | 2024-11-04 12:19 | Discharge Summary ---
Discharge Summary Date of Service November 04, 2024 Principal Dx & Hospital Course #1 = Principal Diagnosis (1) Acute hypoxemic respiratory failure: -likely 2/2 to multifactorial reasons, COVID, ESRD, perhaps undiagnosed MINDI -appears stable on current oxygen levels, on 1 liter Plan: -continue dialysis fluid removal, incentive spirometry, inhalers -continue decadron for 5 days at discharge -continue oxygen at home for now (2) COVID-19: -see above (3) End stage renal disease on dialysis: -Continue with hemodialysis per nephrology. Continue with Cinacalcet and E- poietin (4) DM type 2 (diabetes mellitus, type 2): -Continue with sliding scale coverage, glycemic control is partly affected by steroid use. (5) Dyslipidemia: -Continue with simvastatin. (6) Nausea & vomiting: -since started right after remdesevir, likely related -other etiologies include gastritis vs. less likely ulcers, other drug effects Plan: -discharge with home zofran Notes For Next Care Provider 69-year-old female who presented with shortness of breath. Found to have fluid overload after missing dialysis. Also found to have COVID. Started on Decadron, given inhalers, given dialysis with improvement. Oxygen ordered for home-going, do not suspect this will be a long-term need for her. Nephrology was consulted and offered recommendations regarding dialysis. Medication Changes From Visit -decreased midodrine Admission HPI Per Admitting Provider This is a 69 y/o female with ESRD on HD, DM2, hx PE, anemia in ESRD, psoriasis, hyperlipidemia, and other history as outlined below who presented to the ED from HD today with confusion and weakness. Pt reports that four days ago, started with malaise and myalgias then developed weakness, fatigue, and PND. Three days ago, took a home COVID test that was positive. She didn't go to HD on (two days ago) because of being sick. She went to HD today but session had to be ended an hour early because of increased confusion and weakness. She came to the hospital with some shortness of breath, was managed with oxygen as patient was reportedly having hypoxemia with saturation of 87% on room air. Patient was seen both yesterday and today, she otherwise remained stable, I did not notice any further hypoxemia, patient is going to have her hemodialysis and after that can be discharged. In regard to her COVID with negative x-ray, I only recommend patient's to be on 10 days of Decadron 6 mg daily. She can be safely discharged after hemodialysis. Admission Exam Per Admitting Provider General: awake, alert, NAD HEENT: no scleral icterus, moist oral mucosa Neck: supple, trachea midline Heart: RRR, +murmur Lungs: diminished at bases, coarse BS but no wheezing Abdomen: soft, NT, +BS Extremities: no pitting edema, distal pulses intact and equal: RUE fistula with thrill, non-tender, no erythema or warmth Skin: warm, dry, no pallor cyanosis Neurologic: OX3, no confusion or dysarthria, moving all extremities, no focal deficits Discharge Exam Gen: A&O 3 NAD, appears much better today HEENT: NCAT, EOMI, not icteric. External ears normal. No rhinorrhea. Moist mucous membranes. Neck: Supple, full range of motion, no observable masses, No meningeal sign. Lungs: No Respiratory distress. CV: RRR, no edema. Abdomen: Soft, nondistended, No rebound tenderness. MSK: No joint swelling, no redness. Skin: No rashes, petechiae, lesions. Normal color per patient. Neuro: Normal Gait, Grossly intact. Psych: Appropriate for situation. Updated Medication List Medication Instructions Recorded Confirmed Type gabapentin 100 mg capsule 100 mg PO DIRECTED 12/31/18 10/30/24 History albuterol sulfate 90 mcg/actuation 2 puff inhalation Q6H PRN Wheezing 04/04/21 10/30/24 History aerosol inhaler citalopram 20 mg tablet 20 mg PO QAM 04/04/21 10/30/24 History betamethasone dipropionate 0.05 % 1 applic topical BID PRN 11/15/23 10/30/24 History topical ointment PSORIASIS/ITCHING ropinirole 2 mg tablet 2 mg PO HS 11/15/23 10/30/24 History simvastatin 20 mg tablet 20 mg PO HS 11/15/23 10/30/24 History vitamin B complex-vitamin C-folic 1 tab PO QAM 11/15/23 10/30/24 History acid 0.8 mg tablet (Anais-Federico) dulaglutide 0.75 mg/0.5 mL 0.75 mg subcut WK 02/26/24 10/30/24 History subcutaneous pen injector (Trulicity) fluticasone furoate 200 1 inh inhalation DAILY PRN asthma 04/22/24 10/30/24 History mcg-vilanterol 25 mcg/dose inhalation powder (Breo Ellipta) triamcinolone acetonide 0.1 % 1 applic topical BID PRN Skin 04/22/24 10/30/24 History topical cream Irritation cholecalciferol (vitamin D3) 125 125 mcg PO UD 09/23/24 10/30/24 History mcg (5,000 unit) tablet (Vitamin D3) cinacalcet 90 mg tablet (Sensipar) 90 mg PO QPM 09/23/24 10/30/24 History epoetin beta, methoxy peg 100 100 mcg IV UD 09/23/24 10/30/24 History mcg/0.3 mL injection syringe (Mircera) iron sucrose 50 mg iron/2.5 mL 50 mg IV UD 09/23/24 10/30/24 History intravenous solution lanthanum 750 mg chewable tablet 750 mg PO TIDWMEAL 10/30/24 10/30/24 History oxycodone 15 mg tablet 15 mg PO Q8H PRN Pain 10/30/24 10/30/24 History triamcinolone acetonide 0.1 % 1 applic topical BID PRN Skin 10/30/24 10/30/24 History topical ointment Irritation dexamethasone 6 mg tablet 6 mg PO DAILY #5 tabs 11/04/24 Rx midodrine 2.5 mg tablet 5 mg (2 x 2.5 mg) PO 11/04/24 Rx TID@0800,1200,1700 #30 tabs ondansetron 4 mg disintegrating 4 mg PO DAILY PRN nausea and 11/04/24 Rx tablet vomiting 4 weeks #30 tabs Hospital Stay Data Consultations 10/30/24 14:26 ED Decision to Admit Stat 10/30/24 18:35 Consult Nephrology Routine Pending Results Patient Have Any Pending Studies at Discharge: No Discharge Instructions Given to Patient (Per Discharging Provider) 1. Do not miss any hemodialysis. 2. Please wear oxygen as ordered, visit PCP for weaning plan. Total Time Total Time Spent Total Time Spent (In Minutes): I spent a total of 35 minutes coordinating, documenting, and providing care for this patient excluding time spent in the performance of separately billed services.
[2024-11-04] MEDS: HEPARIN SOD (PORCINE) 1000 UNIT/ML IV SCH (12:42)
[2024-11-04 14:25] VITALS: BP 106/57; TEMP 97.7
[2024-11-04 15:20] VITALS: PULSE 72
[2024-11-04] MEDS ORDERED: FAMOTIDINE 10 MG TABLET PO SCH (16:00)
== END 2024-11-04 15:57 | disposition home or self-care (01) | DRG 189 ==
LOC: ED 11:04 → 2S 14:44 → SUATTDRO 15:44 → 2S 16:57

== ENCOUNTER 2024-12-21 15:43 | Inpatient (IN) ==
[2024-12-21] MEDS ORDERED: VANCOMYCIN CONSULT ACTIVE PRN (16:09)
--- NOTE | 2024-12-21 16:12 | Emergency Department Note ---
Impression & Plan Pneumonia, Influenza A, Fever, Elevated troponin I level, Hypoxia, Cellulitis ED Provider Note NAME: JAIMEE VENEGAS AGE: 69 SEX: F : 1955 ARRIVES VIA: Walk-In INFORMANT: Patient, ED PROVIDER(S): Williams Adams DO CHIEF COMPLAINT: Difficulty breathing HPI: The patient is a 69-year-old female who presented to the emergency department with her significant other for an evaluation of not feeling well. The patient had a full run of dialysis today. She states that she started feeling ill. She states over the last couple days she has had nausea vomiting and diarrhea. She is on a medication also for cellulitis of her right leg. The patient notices no chest pain but she has noticed difficulty breathing and cough. She denies having any abdominal pain. She denies having any rectal bleeding. ROS: See above HPI for pertinent positives & negatives. A total of 10 systems reviewed and were otherwise negative. PAST MEDICAL HISTORY: See Below PAST SURGICAL HISTORY: See Below FAMILY HISTORY: See Below SOCIAL HISTORY: See Below HOME MEDICATIONS: See Below ALLERGIES: See Below VITALS: See Below PHYSICAL EXAMINATION: GENERAL: The patient is awake and alert. She is somewhat frail. EYES: The conjunctivae are clear. The pupils are round and reactive. EARS, NOSE, MOUTH AND THROAT: The nose is without any evidence of any deformity. NECK: The neck is nontender and supple. No JVD was appreciated. RESPIRATORY: Conversational dyspnea was noted. Diminished breath sounds are noted throughout with scattered rhonchi. CARDIOVASCULAR: Regular rate and rhythm noted there no murmurs rubs or gallops normal S1 normal S2. GASTROINTESTINAL: The abdomen is soft. Abdomen is nontender. MUSCULOSKELETAL/EXTREMITIES: There is no evidence of gross deformity full range of motion is noted in the hips and shoulders. SKIN: Chronic venous stasis changes were noted in both lower extremities however the right leg was erythematous in appearance. Both feet were warm. NEUROLOGIC: Patient is awake alert and oriented x3 MEDICAL DECISION MAKING: The patient is a 69-year-old female who has a history of end-stage renal disease receiving dialysis who presented to the emergency department for an evaluation of cough and not feeling well. The patient was found to have a positive flu swab. Chest x-ray does appear to be consistent with more of a generalized infiltrate process. She also has cellulitis which is currently being treated. Given the patient's febrile presentation as well as her laboratory studies she was also treated with IV antibiotics. The patient was reevaluated multiple times. I discussed the patient's laboratory and radiographic studies with her. Because of her abnormal vital signs I also discussed her case with the on-call [facility] hospitalist. They have agreed to evaluate the patient in the emergency department for further management and disposition. Triage Nursing notes reviewed. Prior medical records reviewed Vital Signs: reviewed and remarkable for hypoxia and initial hypotension. Differential diagnosis: Reactive airway disease, pneumonia, pneumothorax, COPD, CHF, infections, cardiac ischemia, pulmonary embolism, musculoskeletal, gastrointestinal, as well as other pathologies. ER treatment provided: See below Diagnostics interpreted by me: ECG: EKG was obtained in the emergency department. My interpretation is sinus tachycardia at 111 bpm. No PVCs were noted. Nonspecific ST and T wave abnormalities were noted. This was compared to a tracing from October 30, 2024. No changes were noted. Cardiac Monitoring: An order was placed for continuous cardiac monitoring. The monitor shows a rate of 114 bpm with sinus tachycardia. Laboratory studies: As stated above and show below. Imaging studies: See below. Radiographic imaging was reviewed by myself Consultation(s): I discussed this case with Dr. Gonzales who is on-call for the [facility] Hospitalist group. Past Med/Surg History Problem List (Updated 12/21/24 @ 17:38 by Williams Adams DO) Cellulitis (Acute) Hypoxia (Acute) Elevated troponin I level (Acute) Fever (Acute) Influenza A (Acute) Pneumonia (Acute) Nausea & vomiting Dyslipidemia Pulmonary edema (Acute) Generalized weakness (Acute) Acute hypoxemic respiratory failure (Acute) COVID-19 (Acute) Swelling of right upper extremity Lower urinary tract symptoms (LUTS) MINDI (obstructive sleep apnea) Chills (Acute) Symptomatic anemia (Acute) Acute GI bleeding (Acute) Anemia (Acute) Chronic renal insufficiency (Acute) Cellulitis of left leg (Acute) Arteriovenous fistula stenosis Encounter for pre-operative examination DVT prophylaxis Ambulatory dysfunction walker-dependent History of fall Hyperkalemia (Acute) Sinus pause (Acute) Chronic pain Sinus pause Obesity Anxiety and depression RLS (restless legs syndrome) HTN (hypertension) DM type 2 (diabetes mellitus, type 2) IDDM Glucose stable End stage renal disease on dialysis (Acute) 2/2 DM Diaylsis Tues/Thurs/Sat- [employer] [facility] [employer] [place] Follows with Dr. Perez Medical History Swelling of right upper extremity Lower urinary tract symptoms (LUTS) Hx of fall ESRD (end stage renal disease) on dialysis Diaylsis //Sat- [facility] Follows with Dr. Perez Chronic pain History of cellulitis Anemia Hx of gastrointestinal hemorrhage History of dialysis fistulography Ambulatory dysfunction walker-dependent Anxiety and depression RLS (restless legs syndrome) History of blood transfusion 2022 Pulmonary hypertension mild on 2020 echo Sleep apnea severe-not currently treated per pt Moderate aortic stenosis (MELCHOR 0.8 cm2, mean PG 20 mmHg) Diabetes mellitus, type 2 Limb alert care status RUE AVF Osteoporosis HLD (hyperlipidemia) Psoriasis History of renal calculi History of DVT (deep vein thrombosis) RLE, 10+ years ago, post op AC therapy x 3-6 months after > d/c'd + no issues since History of pulmonary embolus (PE) 10+ years ago, post op- no issues since Surgical History History of esophagogastroduodenoscopy (EGD) Hx of bilateral hip replacements H/O laparoscopy History of cystoscopy S/P arteriovenous (AV) fistula repair (~2020) x2 right- currently getting HD History of tooth extraction History of x 2 S/P arteriovenous (AV) fistula creation x 2 BL (non functioning on left)--left still in place not working History of colonoscopy H/O partial resection of colon (2012) For diverticulitis H/O inguinal hernia repair left S/P cholecystectomy Family History Mother Diabetes Sister Diabetes Other No family history of adverse response to anesthesia Social History Smoking Status: Never smoker Tobacco Type: Cigarettes Second Hand Exposure: No; Do You Dip or Chew Tobacco: No; Hx Alcohol Use: No Hx Substance Use: No Preferred Language: Montenegrin Communication Ability: Effective Engineering Department Chair Required: No Beliefs That Will Affect Care: None marital status: Current Living Situation: Spouse and Family Current Living Situation Comment: Lives with , daughter and grandson How many Children do You have: 3 Feels Safe at Home: Yes Assistive Devices: Walker Allergies Allergies Allergy/AdvReac Type Severity Reaction Status Date / Time Sulfa (Sulfonamide Allergy Severe Face/lips/tongue Verified 10/30/24 15:19 Antibiotics) edema nitrofurantoin Allergy Intermediate Hives Verified 10/30/24 15:19 cefazolin [From Ancef] Allergy Unknown CAN'T Verified 10/30/24 15:19 REMEMBER pantoprazole [From Protonix] Allergy Unknown CAN'T Verified 10/30/24 15:19 REMEMBER methylprednisolone AdvReac Intermediate Sweating, Verified 10/30/24 15:19 [From Medrol] heart racing Home Meds Home Medications Medication Instructions Recorded Confirmed gabapentin 100 mg capsule 100 mg PO DIRECTED 12/31/18 10/30/24 albuterol sulfate 90 mcg/actuation 2 puff inhalation Q6H PRN Wheezing 04/04/21 10/30/24 aerosol inhaler citalopram 20 mg tablet 20 mg PO QAM 04/04/21 10/30/24 betamethasone dipropionate 0.05 % 1 applic topical BID PRN 11/15/23 10/30/24 topical ointment PSORIASIS/ITCHING ropinirole 2 mg tablet 2 mg PO HS 11/15/23 10/30/24 simvastatin 20 mg tablet 20 mg PO HS 11/15/23 10/30/24 vitamin B complex-vitamin C-folic 1 tab PO QAM 11/15/23 10/30/24 acid 0.8 mg tablet (Anais-Federico) dulaglutide 0.75 mg/0.5 mL 0.75 mg subcut WK 02/26/24 10/30/24 subcutaneous pen injector (Trulicity) fluticasone furoate 200 1 inh inhalation DAILY PRN asthma 04/22/24 10/30/24 mcg-vilanterol 25 mcg/dose inhalation powder (Breo Ellipta) triamcinolone acetonide 0.1 % 1 applic topical BID PRN Skin 04/22/24 10/30/24 topical cream Irritation cholecalciferol (vitamin D3) 125 125 mcg PO UD 09/23/24 10/30/24 mcg (5,000 unit) tablet (Vitamin D3) cinacalcet 90 mg tablet (Sensipar) 90 mg PO QPM 09/23/24 10/30/24 epoetin beta, methoxy peg 100 100 mcg IV UD 09/23/24 10/30/24 mcg/0.3 mL injection syringe (Mircera) iron sucrose 50 mg iron/2.5 mL 50 mg IV UD 09/23/24 10/30/24 intravenous solution lanthanum 750 mg chewable tablet 750 mg PO TIDWMEAL 10/30/24 10/30/24 oxycodone 15 mg tablet 15 mg PO Q8H PRN Pain 10/30/24 10/30/24 triamcinolone acetonide 0.1 % 1 applic topical BID PRN Skin 10/30/24 10/30/24 topical ointment Irritation Previous Rx's Medication Instructions Recorded midodrine 2.5 mg tablet 5 mg (2 x 2.5 mg) PO 11/04/24 TID@0800,1200,1700 #30 tabs Results & Data (ED) Vital Signs Vital Signs - 24 hr 12/21/24 15:44 12/21/24 16:05 12/21/24 16:07 Temperature 38 C H Temperature Source Temporal Artery Scan Pulse Rate 114 H Pulse Rate [Apical] 110 H Respiratory Rate 19 21 Respiratory Effort / Characteristics Non-Labored Spontaneous Non-Labored Spontaneous Respiratory Depth Normal Normal Blood Pressure 93/53 L Blood Pressure [Left Arm] 104/67 Blood Pressure Mean 66 Blood Pressure Mean [Left Arm] 79 Pulse Oximetry 91 97 96 Oxygen Delivery Method Room Air Room Air Nasal Cannula Oxygen Flow Rate 2 Sepsis Recent Fever Within 48 Hours Yes Sepsis New/Unexplained Change in Mental Status N/A Sepsis Action Taken by Nursing No Action Required 12/21/24 16:37 Temperature Temperature Source Pulse Rate 114 H Pulse Rate [Apical] Respiratory Rate Respiratory Effort / Characteristics Respiratory Depth Blood Pressure Blood Pressure [Left Arm] Blood Pressure Mean Blood Pressure Mean [Left Arm] Pulse Oximetry Oxygen Delivery Method Oxygen Flow Rate Sepsis Recent Fever Within 48 Hours Sepsis New/Unexplained Change in Mental Status Sepsis Action Taken by Retirement Medications Current Medication List: was personally reviewed by me Laboratory Data Attestation: I reviewed the patient's lab results. 12/21/24 16:28 12/21/24 16:28 Lab Results 12/21/24 12/21/24 Range/Units 16:28 Unknown WBC 5.11 (4.8-10.8) K/ul RBC 3.48 L (4.20-5.40) M/uL Hgb 10.6 L (12.0-16.0) g/dl Hct 33.0 L (37.0-47.0) % MCV 94.8 (80.0-100.0) fL MCH 30.5 (25.0-34.0) pg MCHC 32.1 (32.0-36.0) g/dL RDW Std Deviation 51.9 H (36.4-46.3) fL RDW Coeff of Erum 14.8 H (11.5-14.5) % Plt Count 182 (130-400) K/uL MPV 10.1 (9.4-12.4) fL Immature Gran % (Auto) 0.4 % Neut % (Auto) 76.7 % Lymph % (Auto) 13.3 % [place] % (Auto) 8.8 % Eos % (Auto) 0.2 % Baso % (Auto) 0.6 % Neut # (Auto) 3.92 (1.40-6.50) K/uL Lymph # (Auto) 0.68 L (1.20-3.40) K/uL [place] # (Auto) 0.45 (0.11-0.59) K/uL Eos # (Auto) 0.01 (0.00-0.50) K/uL Baso # (Auto) 0.03 (0.00-0.20) K/uL Immature Gran # (Auto) 0.02 (0.01-0.20) K/uL PT 11.2 (9.0-12.0) Seconds INR 1.0 (0.9-1.1) APTT 57 H (21-31) Seconds PTT Ratio 2.1 VBG pH 7.44 H (7.36-7.41) VBG pCO2 49 (38-50) mmHg VBG pO2 43 mmHg VBG HCO3 33 mmol/L VBG O2 Saturation 71.5 % VBG Base Excess 7.8 mEq/L Sodium 139 (136-145) mmol/L Potassium 3.5 (3.5-5.1) mmol/L Chloride 94 L (98-107) mmol/L Carbon Dioxide 33 H (21-32) mmol/L Anion Gap 12 H (3-11) BUN 30 H (6-23) mg/dl Creatinine 3.40 H (0.6-1.2) mg/dl Est Cr Clr Drug Dosing 14.9 ml/min eGFR 13.96 BUN/Creatinine Ratio 8.8 L (10-20) Lactate 1.4 (0.4-2.0) mmol/L Calcium 9.9 (8.6-10.3) mg/dl Magnesium 2.1 (1.7-2.4) mg/dl Total Bilirubin 0.5 (0.2-1.0) mg/dl Direct Bilirubin 0.0 (0-0.2) mg/dl AST 23 (13-39) U/L ALT 15 (7-52) U/L Alkaline Phosphatase 92 (34-104) U/L Troponin I High Sens 57.6 H* (0-14) pg/ml Total Protein 7.2 (6.0-8.3) gm/dl Albumin 3.5 (3.4-5.0) gm/dl Globulin 3.7 (2.5-4.0) gm/dl Albumin/Globulin Ratio 0.9 (0.9-2) Procalcitonin 2.00 H (0-0.5) ng/ml Adenovirus (PCR) Not Detected (NotDetected) B. pertussis DNA (PCR) Not Detected (NotDetected) B.parapertussis DNA PCR Not Detected (NotDetected) C. pneumoniae DNA (PCR) Not Detected (NotDetected) Coronavirus OC43 (PCR) Not Detected (NotDetected) Coronavirus HKU1 (PCR) Not Detected (NotDetected) Coronavirus 229E (PCR) Not Detected (NotDetected) SARS-CoV-2 (PCR) Not Detected (NotDetected) Coronavirus NL63 (PCR) Not Detected (NotDetected) Human Metapneumovir PCR Not Detected (NotDetected) Influenza A (H3) PCR DETECTED A (NotDetected) Influenza Type B (PCR) Not Detected (NotDetected) M. pneumoniae (PCR) Not Detected (NotDetected) Parainfluenza 1 (PCR) Not Detected (NotDetected) Parainfluenza 2 (PCR) Not Detected (NotDetected) Parainfluenza 3 (PCR) Not Detected (NotDetected) Parainfluenza 4 (PCR) Not Detected (NotDetected) RSV (PCR) Not Detected (NotDetected) Entero/Rhino (PCR) Not Detected (NotDetected) Administered Medications Vancomycin HCl 1,500 mg/ (Sodium Chloride) 530 mls @ 200 mls/hr IV NOW ONE Stop: 12/21/24 18:47 Last Admin: 12/21/24 17:33 Dose: 200 mls/hr Documented By: UZIEL Discontinued Medications Acetaminophen (Acetaminophen 325 Mg Tab) 650 mg PO NOW STA Stop: 12/21/24 16:10 Last Admin: 12/21/24 16:35 Dose: 650 mg Documented By: UZIEL Sodium Chloride (Nss) 250 mls @ 999 mls/hr IV .Q16M ONE Stop: 12/21/24 16:24 Last Infusion: 12/21/24 17:04 Dose: Infused Documented By: Admin: 12/21/24 16:32 Dose: 999 mls/hr Documented By: UZIEL Ceftriaxone Sodium (Rocephin) 2,000 mg in 50 mls @ 100 mls/hr IV NOW STA Stop: 12/21/24 16:38 Last Infusion: 12/21/24 17:33 Dose: Infused Documented By: Admin: 12/21/24 17:18 Dose: 100 mls/hr Documented By: UZIEL Imaging Data Attestation: I personally reviewed and interpreted this imaging study as follows: My Impression: 1 view chest x-ray was obtained in the emergency department. My interpretation is cardiomegaly with bilateral increased infiltrate. Final report below. Radiologist's Impression: Chest X-Ray 12/21/24 15:50 EXAM: XR chest 1V portable CLINICAL HISTORY: Illness/wheezing. TECHNIQUE: X-ray images of the chest were obtained in AP portable projections. COMPARISON: CR dated: 11/02/2024 FINDINGS: Pulmonary Parenchyma: Bilateral increase reticulation, non-homogenous haziness, and upper lobe diversion. No pulmonary nodules identified. Obscured left Cp angle. with haziness Heart and Mediastinum: Cardiomegaly with bilateral bulky yoselin. Perihilar opacities noted. Bony Thorax: Bony thorax shows degnerative changes Stable old fracture of the left second and third ribs posteriorly. Soft Tissues: Soft tissues overlying the chest wall are unremarkable. Surgical clips in the right axilla IMPRESSION: 1. Bilateral Perihilar opacitie, increase reticulation, non-homogenous haziness, and upper lobe diversion suggestive of pulmonary oedema. Increased since prior study. 2. Cardiomegaly, stable. 3. Please correlate clinically. Electronically signed by Isaias Hughes 12-21-2024 5:20 PM Discharge Plan Visit Data Chief Complaint: Flu Like Symptoms Stated Complaint: FLU LIKE SYMPTOMS, DIALYSIS SENT HER ED Provider: Williams Adams Discharge Problem: Pneumonia, Influenza A, Fever, Elevated troponin I level, Hypoxia, Cellulitis Patient Disposition: Being Evaluated by Hospitalist Forms Stand Alone Forms: [facility] Prescriptions Prescriptions: No Action gabapentin 100 mg capsule 100 mg PO DIRECTED Rx Instructions: 100mg daily plus additional dose 100 mg after dialysis days citalopram 20 mg tablet 20 mg PO QAM albuterol sulfate 90 mcg/actuation HFA aerosol inhaler 2 puff INHALATION Q6H PRN (Reason: Wheezing) ropinirole 2 mg tablet 2 mg PO HS Rx Instructions: take 1-3 hours before bed simvastatin 20 mg tablet 20 mg PO HS Anais-Federico 0.8 mg tablet 1 tab PO QAM betamethasone dipropionate 0.05 % Ointment 1 applic TOPICAL BID PRN (Reason: PSORIASIS/ITCHING) Trulicity 0.75 mg/0.5 mL pen injector 0.75 mg SUBCUT WK Rx Instructions: mondays triamcinolone acetonide 0.1 % Cream 1 applic TOPICAL BID PRN (Reason: Skin Irritation) fluticasone furoate-vilanterol [Breo Ellipta] 200-25 mcg/dose Blister With Device 1 inh INHALATION DAILY PRN (Reason: asthma) Rx Instructions: Unable to verify w/ pt at this date/time. cinacalcet [Sensipar] 90 mg Tablet 90 mg PO QPM cholecalciferol (vitamin D3) [Vitamin D3] 125 mcg (5,000 unit) Tablet 125 mcg PO UD Rx Instructions: hd days , , fri iron sucrose 50 mg iron/2.5 mL Solution 50 mg IV UD Rx Instructions: during dialysis. Unable to verify w/ pt at this date/time. Mircera 100 mcg/0.3 mL Syringe 100 mcg IV UD Rx Instructions: q2w during dialysis. Unable to verify w/ pt at this date/time. oxycodone 15 mg tablet 15 mg PO Q8H PRN (Reason: Pain) Rx Instructions: Unable to verify w/ pt at this date/time. triamcinolone acetonide 0.1 % ointment 1 applic TOPICAL BID PRN (Reason: Skin Irritation) lanthanum 750 mg tablet,chewable 750 mg PO TIDWMEAL midodrine 2.5 mg Tablet 5 mg PO TID@0800,1200,1700 Qty: 30 0RF Referrals Referrals: Willie Epstein MD [Primary Care Provider] -
[2024-12-21] MEDS: SODIUM CHLORIDE 0.9% 250 ML IV ONE (16:32)
[2024-12-21] MEDS: ACETAMINOPHEN 325 MG TAB PO STA (16:35)
[2024-12-21 16:44] LABS: Base Excess VBG 7.8 mEq/L; HCO3 VBG 33 mmol/L; Oxygen Saturation VBG 71.5 %; PCO2 VBG 49 mmHg (38-50); PO2 VBG 43 mmHg; pH VBG 7.44 (7.36-7.41)
[2024-12-21 16:49] LABS: Adenovirus PCR Not Detected (NotDetected); Bordetella parapertussis PCR Not Detected (NotDetected); Bordetella pertussis PCR Not Detected (NotDetected); Chlamydia pneumoniae PCR Not Detected (NotDetected); Coronavirus 229E PCR Not Detected (NotDetected); Coronavirus CoV-2 (COVID19)PCR Not Detected (NotDetected); Coronavirus HKU1 PCR Not Detected (NotDetected); Coronavirus NL63 PCR Not Detected (NotDetected); Coronavirus OC43PCR Not Detected (NotDetected); Human Metapneumovirus PCR Not Detected (NotDetected); Influenza A (H3) PCR DETECTED (NotDetected); Influenza B PCR Not Detected (NotDetected); Mycoplasma pneumoniae PCR Not Detected (NotDetected); Parainfluenza Virus 1 PCR Not Detected (NotDetected); Parainfluenza Virus 2 PCR Not Detected (NotDetected); Parainfluenza Virus 3 PCR Not Detected (NotDetected); Parainfluenza Virus 4 PCR Not Detected (NotDetected); Respiratory Syncytial VirusPCR Not Detected (NotDetected); Rhinovirus/Enterovirus PCR Not Detected (NotDetected)
[2024-12-21 16:59] LABS: Basophils # (auto) 0.03 K/uL (0.00-0.20); Basophils % (auto) 0.6 %; Eosinophils # (auto) 0.01 K/uL (0.00-0.50); Eosinophils % (auto) 0.2 %; Hemoglobin 10.6 g/dl (12.0-16.0); Immature Granulocytes # (auto) 0.02 K/uL (0.01-0.20); Immature Granulocytes % (auto) 0.4 %; Lymphocytes # (auto) 0.68 K/uL (1.20-3.40); Lymphocytes % (auto) 13.3 %; Mean Corpuscular Hemoglobin 30.5 pg (25.0-34.0); Mean Corpuscular Hgb Conc 32.1 g/dL (32.0-36.0); Mean Corpuscular Volume 94.8 fL (80.0-100.0); Mean Platelet Volume 10.1 fL (9.4-12.4); Monocytes # (auto) 0.45 K/uL (0.11-0.59); Monocytes % (auto) 8.8 %; Neutrophils # (auto) 3.92 K/uL (1.40-6.50); Neutrophils % (auto) 76.7 %; Platelet Count 182 K/uL (130-400); RDW Coefficient of Variation 14.8 % (11.5-14.5); RDW Standard Deviation 51.9 fL (36.4-46.3); Red Blood Count 3.48 M/uL (4.20-5.40); White Blood Count 5.11 K/ul (4.8-10.8)
[2024-12-21 17:10] LABS: Albumin Globulin Ratio 0.9 (0.9-2); Albumin Level 3.5 gm/dl (3.4-5.0); BUN Creatinine Ratio 8.8 (10-20); Bilirubin,Total 0.5 mg/dl (0.2-1.0); Calcium 9.9 mg/dl (8.6-10.3); Creatinine Clr Calc Pharmacy 14.9 ml/min; Globulin 3.7 gm/dl (2.5-4.0); Magnesium 2.1 mg/dl (1.7-2.4); Potassium 3.5 mmol/L (3.5-5.1); Total Protein 7.2 gm/dl (6.0-8.3)
[2024-12-21] MEDS: cefTRIAXone SODIUM 2,000 MG/50 ML BAG IV STA (17:18)
--- NOTE | 2024-12-21 17:20 | XRay Report ---
EXAM: XR chest 1V portable CLINICAL HISTORY: Illness/wheezing. TECHNIQUE: X-ray images of the chest were obtained in AP portable projections. COMPARISON: CR dated: 11/02/2024 FINDINGS: Pulmonary Parenchyma: Bilateral increase reticulation, non-homogenous haziness, and upper lobe diversion. No pulmonary nodules identified. Obscured left Cp angle. with haziness Heart and Mediastinum: Cardiomegaly with bilateral bulky yoselin. Perihilar opacities noted. Bony Thorax: Bony thorax shows degnerative changes Stable old fracture of the left second and third ribs posteriorly. Soft Tissues: Soft tissues overlying the chest wall are unremarkable. Surgical clips in the right axilla IMPRESSION: 1. Bilateral Perihilar opacitie, increase reticulation, non-homogenous haziness, and upper lobe diversion suggestive of pulmonary oedema. Increased since prior study. 2. Cardiomegaly, stable. 3. Please correlate clinically. Electronically signed by Isaias Hughes 12-21-2024 5:20 PM
[2024-12-21 17:23] LABS: Partial Thromboplastin Ratio 2.1; Partial Thromboplastin Time 57 Seconds (21-31); Prothrombin Time 11.2 Seconds (9.0-12.0)
[2024-12-21 17:31] LABS: Troponin I High Sensitivity 57.6 pg/ml (0-14)
[2024-12-21] MEDS: VANCOMYCIN HCL 1,500 MG in SODIUM CHLORIDE 0.9% 500 ML IV ONE (17:33)
--- NOTE | 2024-12-21 18:18 | History & Physical Report ---
Date of Service December 21, 2024 Assessment & Plan (1) Sepsis: (2) Influenza A with pneumonia: (3) Acute on chronic hypoxic respiratory failure: (4) Demand ischemia of myocardium: (5) Acute on chronic systolic heart failure due to valvular disease: (6) End stage renal disease on dialysis: (7) DM type 2 (diabetes mellitus, type 2): Plan Patient 69-year-old female with known end-stage renal disease on hemodialysis, chronic valvular heart failure and chronic hypoxic respiratory failure presents to the emergency room with malaise, myalgias, fever, increasing shortness of breath. Tested positive for influenza A. Patient is at high risk for further deterioration in her condition due to progressive influenza respiratory failure. Requires hospital level care monitoring Admit to the MedSurg unit Support with oxygen Treat with Tamiflu based on her renal function Chest x-ray appears that should she is volume overloaded, give 1 dose of IV Lasix, continue to evaluate need daily Consult nephrology for ongoing hemodialysis needs Antitussives and mucolytics Low suspicion for any ongoing bacterial infection. Difficult to interpret procalcitonin in the setting of end-stage renal disease. At this point I do not have obvious bacterial source of infection will monitor off any additional antibiotics Continue monitor glucose and cover with short acting insulin Troponin is chronically elevated in the setting of end-stage renal disease, slightly increased most likely due to sepsis and infection and heart failure associated with her influenza. History of Present Illness Chief Complaint: I have the flu Primary Care Provider: Willie Epstein MD Patient 69-year-old female with end-stage renal disease on hemodialysis on Friday started to feel a bit ill and wiped out. This progressed over the next several days. Her was starting to have similar symptoms of malaise and fevers. And the grandson who also lives with them. She was able to go to her usual hemodialysis session today. However, she commented that the dialysis staff recommended she go to the ER because she just looked ill and she was not feeling all that great. She went home from hemodialysis continue to feel wiped out and fatigued and tired a bit more short of breath a lot of coughing came to the emergency room and emergency room she did test positive for influenza. Additional workup in the ED was consistent with her end-stage renal disease and her flu. Patient does have known significant valvular dysfunction and end-stage renal disease. She was febrile here in the ED. She denies any problems with her bowels. She is does still make urine and urinates a few times a day. Other than the malaise and myalgias and fatigue she states that she has been eating well and denies any chest pain. She reports that she has not been wearing her oxygen all the time at home since her last discharge in October. She states dunia t her oxygen saturations at home is oftentimes in the 90s on room air. Allergies Allergy/AdvReac Type Severity Reaction Status Date / Time Sulfa (Sulfonamide Allergy Severe Face/lips/tongue Verified 10/30/24 15:19 Antibiotics) edema nitrofurantoin Allergy Intermediate Hives Verified 10/30/24 15:19 cefazolin [From Ancef] Allergy Unknown CAN'T Verified 10/30/24 15:19 REMEMBER pantoprazole [From Protonix] Allergy Unknown CAN'T Verified 10/30/24 15:19 REMEMBER methylprednisolone AdvReac Intermediate Sweating, Verified 10/30/24 15:19 [From Medrol] heart racing Home Medications Medication Instructions Recorded Confirmed Type gabapentin 100 mg capsule 100 mg PO DIRECTED 12/31/18 10/30/24 History albuterol sulfate 90 mcg/actuation 2 puff inhalation Q6H PRN Wheezing 04/04/21 10/30/24 History aerosol inhaler citalopram 20 mg tablet 20 mg PO QAM 04/04/21 10/30/24 History betamethasone dipropionate 0.05 % 1 applic topical BID PRN 11/15/23 10/30/24 History topical ointment PSORIASIS/ITCHING ropinirole 2 mg tablet 2 mg PO HS 11/15/23 10/30/24 History simvastatin 20 mg tablet 20 mg PO HS 11/15/23 10/30/24 History vitamin B complex-vitamin C-folic 1 tab PO QAM 11/15/23 10/30/24 History acid 0.8 mg tablet (Anais-Federico) dulaglutide 0.75 mg/0.5 mL 0.75 mg subcut WK 02/26/24 10/30/24 History subcutaneous pen injector (Trulicity) fluticasone furoate 200 1 inh inhalation DAILY PRN asthma 04/22/24 10/30/24 History mcg-vilanterol 25 mcg/dose inhalation powder (Breo Ellipta) triamcinolone acetonide 0.1 % 1 applic topical BID PRN Skin 04/22/24 10/30/24 History topical cream Irritation cholecalciferol (vitamin D3) 125 125 mcg PO UD 09/23/24 10/30/24 History mcg (5,000 unit) tablet (Vitamin D3) cinacalcet 90 mg tablet (Sensipar) 90 mg PO QPM 09/23/24 10/30/24 History epoetin beta, methoxy peg 100 100 mcg IV UD 09/23/24 10/30/24 History mcg/0.3 mL injection syringe (Mircera) iron sucrose 50 mg iron/2.5 mL 50 mg IV UD 09/23/24 10/30/24 History intravenous solution lanthanum 750 mg chewable tablet 750 mg PO TIDWMEAL 10/30/24 10/30/24 History oxycodone 15 mg tablet 15 mg PO Q8H PRN Pain 10/30/24 10/30/24 History triamcinolone acetonide 0.1 % 1 applic topical BID PRN Skin 10/30/24 10/30/24 History topical ointment Irritation midodrine 2.5 mg tablet 5 mg (2 x 2.5 mg) PO 11/04/24 Rx TID@0800,1200,1700 #30 tabs Past Med/Surg History Problem List (Updated 12/21/24 @ 18:15 by Manuel Galaviz DO) Demand ischemia of myocardium Acute on chronic systolic heart failure due to valvular disease Acute on chronic hypoxic respiratory failure Influenza A with pneumonia Sepsis Cellulitis (Acute) Hypoxia (Acute) Elevated troponin I level (Acute) Fever (Acute) Influenza A (Acute) Pneumonia (Acute) Nausea & vomiting Dyslipidemia Pulmonary edema (Acute) Generalized weakness (Acute) Acute hypoxemic respiratory failure (Acute) COVID-19 (Acute) Swelling of right upper extremity Lower urinary tract symptoms (LUTS) MINDI (obstructive sleep apnea) Chills (Acute) Symptomatic anemia (Acute) Acute GI bleeding (Acute) Anemia (Acute) Chronic renal insufficiency (Acute) Cellulitis of left leg (Acute) Arteriovenous fistula stenosis Encounter for pre-operative examination DVT prophylaxis Ambulatory dysfunction walker-dependent History of fall Hyperkalemia (Acute) Sinus pause (Acute) Chronic pain Sinus pause Obesity Anxiety and depression RLS (restless legs syndrome) HTN (hypertension) DM type 2 (diabetes mellitus, type 2) IDDM Glucose stable End stage renal disease on dialysis (Acute) 2/2 DM Diaylsis Tues/Thurs/Sat- [facility] Follows with Dr. Perez Medical History Swelling of right upper extremity Lower urinary tract symptoms (LUTS) Hx of fall ESRD (end stage renal disease) on dialysis Diaylsis Tues/Thurs/Sat- [facility] Follows with Dr. Perez Chronic pain History of cellulitis Anemia Hx of gastrointestinal hemorrhage History of dialysis fistulography Ambulatory dysfunction walker-dependent Anxiety and depression RLS (restless legs syndrome) History of blood transfusion 2022 Pulmonary hypertension mild on 2020 echo Sleep apnea severe-not currently treated per pt Moderate aortic stenosis (MELCHOR 0.8 cm2, mean PG 20 mmHg) Diabetes mellitus, type 2 Limb alert care status RUE AVF Osteoporosis HLD (hyperlipidemia) Psoriasis History of renal calculi History of DVT (deep vein thrombosis) RLE, 10+ years ago, post op AC therapy x 3-6 months after > d/c'd + no issues since History of pulmonary embolus (PE) 10+ years ago, post op- no issues since Surgical History History of esophagogastroduodenoscopy (EGD) Hx of bilateral hip replacements H/O laparoscopy History of cystoscopy S/P arteriovenous (AV) fistula repair (~2020) x2 right- currently getting HD History of tooth extraction History of x 2 S/P arteriovenous (AV) fistula creation x 2 BL (non functioning on left)--left still in place not working History of colonoscopy H/O partial resection of colon (2012) For diverticulitis H/O inguinal hernia repair left S/P cholecystectomy Family History Mother Diabetes Sister Diabetes Other No family history of adverse response to anesthesia Social History Smoking Status: Never smoker Tobacco Type: Cigarettes Second Hand Exposure: No; Do You Dip or Chew Tobacco: No; Hx Alcohol Use: No Hx Substance Use: No Preferred Language: Amharic Communication Ability: Effective Mental Health Assistant Required: No Beliefs That Will Affect Care: None marital status: Current Living Situation: Spouse and Family Current Living Situation Comment: Lives with , daughter and grandson How many Children do You have: 3 Feels Safe at Home: Yes Assistive Devices: Walker Review of Systems Review of Systems: Pertinent positive and negative review of systems as mentioned in the HPI Physical Exam Physical Exam: Constitutional: Alert, ill in appearance, nontoxic HEENT: Mucous membranes moist. Sclera clear Neck: Soft, no adenopathy Lungs: Decreased breath sounds, coarse rhonchi, crackles and rales throughout CV: S1-S2, regular, systolic murmur Abdomen: Soft, nontender, nondistended Extremities: No significant edema, chronic venous stasis dermatitis lower extremities Musculoskeletal: No significant joint tenderness Neuro: No focal deficits Psych: Cooperative, normal mood Results & Data Results & Data Vital Signs (Past 12 Hours) Vital Signs Temp Pulse Pulse Resp BP BP Pulse Ox 12/21/24 16:37 114 H 12/21/24 16:07 96 12/21/24 16:05 110 H 21 104/67 97 12/21/24 15:44 38 C H 114 H 19 93/53 L 91 O2 Del Method O2 Flow Rate 12/21/24 16:37 12/21/24 16:07 Nasal Cannula 2 12/21/24 16:05 Room Air 12/21/24 15:44 Room Air Diagnostic Findings Reviewed imaging, laboratory and diagnostic studies. Pertinent findings as below. 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
[2024-12-21] MEDS: MIDODRINE HCL 2.5 MG TAB PO STA (18:23)
[2024-12-21] MEDS: LORazepam 0.5 MG TAB PO STA (18:23)
[2024-12-21] MEDS ORDERED: POLYETHYLENE (MIRALAX) 17 GM PACK PO PRN (19:19)
[2024-12-21] MEDS ORDERED: ALBUTEROL 0.083% NEBU SOLN 3 ML VIAL NEB PRN (19:19)
[2024-12-21] MEDS ORDERED: GLUCAGON FOR INJ 1 MG VIAL SQ PRN (19:19)
[2024-12-21] MEDS ORDERED: FLUTICASONE/VILANTEROL 200/25MCG 14 PUFFS/INHALER INH PRN (19:19)
[2024-12-21] MEDS ORDERED: CARBOHYDRATES FOR HYPOGLYCEMIA PO PRN (19:19)
[2024-12-21] MEDS ORDERED: BENZONATATE 100 MG CAPSULE PO PRN (19:19)
[2024-12-21] MEDS ORDERED: GLUCOSE 40% GEL 15 GM TUBE PO PRN (19:19)
[2024-12-21] MEDS ORDERED: GLUCOSE 10 TAB/TUBE PO PRN (19:19)
[2024-12-21] MEDS ORDERED: ACETAMINOPHEN 325 MG TAB PO PRN (19:19)
[2024-12-21] MEDS ORDERED: oxyCODONE HCL IR 5 MG TAB (IMMEDIATE RELEASE) PO PRN (19:19)
[2024-12-21] MEDS ORDERED: DEXTROSE 50% 50 ML SYRINGE IV PRN (19:19)
[2024-12-21] MEDS ORDERED: ALBUTEROL HFA 8 GM INHALER INH PRN (19:19)
[2024-12-21] MEDS: FUROSEMIDE 40 MG/4 ML VIAL IV ONE (19:57)
[2024-12-21] MEDS: OSELTAMIVIR PHOSPHATE SUSP 30 MG/5 ML UDP PO SCH (19:57)
[2024-12-21] MEDS: CINACALCET HCL 90 MG TAB PO SCH (21:17)
[2024-12-21] MEDS: rOPINIRole HCL 2 MG TABLET PO SCH (21:18)
[2024-12-21] MEDS: guaiFENesin 600 MG TABCR PO SCH (21:18)
[2024-12-21] MEDS: SIMVASTATIN 20 MG TAB PO SCH (21:20)
[2024-12-21] MEDS: INSULIN ASPART PER UNIT CHARGE SC SCH (21:39)
[2024-12-21] MEDS: HEPARIN SOD 5,000 UNIT/0.5 ML VIAL SQ SCH (21:39)
[2024-12-22 07:21] LABS: Hematocrit (blood only) 32.5 % (37.0-47.0); Hemoglobin 10.2 g/dl (12.0-16.0); Mean Corpuscular Hemoglobin 30.4 pg (25.0-34.0); Mean Corpuscular Hgb Conc 31.4 g/dL (32.0-36.0); Mean Corpuscular Volume 96.7 fL (80.0-100.0); Mean Platelet Volume 10.4 fL (9.4-12.4); Platelet Count 164 K/uL (130-400); RDW Standard Deviation 52.6 fL (36.4-46.3); Red Blood Count 3.36 M/uL (4.20-5.40); White Blood Count 5.07 K/ul (4.8-10.8)
[2024-12-22 07:54] LABS: BUN Creatinine Ratio 9.5 (10-20); Calcium 8.9 mg/dl (8.6-10.3); Creatinine Clr Calc Pharmacy 12.2 ml/min; Magnesium 2.2 mg/dl (1.7-2.4); Potassium 3.9 mmol/L (3.5-5.1)
[2024-12-22] MEDS: ONDANSETRON INJ 2 MG/ML 2 ML VIAL IV PRN (08:06)
[2024-12-22] MEDS: MIDODRINE HCL 2.5 MG TAB PO SCH (08:06)
[2024-12-22] MEDS: CITALOPRAM 20 MG TAB PO SCH (08:07)
[2024-12-22] MEDS: NEPHROCAPS PO SCH (10:13)
--- NOTE | 2024-12-22 10:42 | Hospitalist Progress Note ---
Date of Service December 22, 2024 Assessment & Plan (1) Sepsis: (2) Influenza A with pneumonia: (3) Acute on chronic hypoxic respiratory failure: (4) Demand ischemia of myocardium: (5) Acute on chronic systolic heart failure due to valvular disease: (6) End stage renal disease on dialysis: (7) DM type 2 (diabetes mellitus, type 2): Plan Patient is improved from her sepsis symptoms associated with influenza A infection and acute on chronic heart failure due to valvular disease. Continue Tamiflu based on renal function Patient is on chronic oxygen, continue at home flow Continue antitussives and mucolytics and symptomatic care Patient responded quite well to IV Lasix yesterday, reviewed chest x-ray imaging again, consistent with pulmonary edema, still sounds a little bit wet on exam, given additional IV Lasix dose today, some potassium supplementation. Nephrology consult for ongoing hemodialysis needs Anticipate discharge home tomorrow after hemodialysis if continues to improve. Admission and Anticipated Discharge Date Admission Date: December 21, 2024 Subjective Patient reports feeling significantly improved. [place] as though the Lasix helped a lot yesterday. Not as fatigued or as much malaise today. Physical Exam Physical Exam: Constitutional: Alert, nontoxic in appearance HEENT: Mucous membranes moist. Lungs: Decreased breath sounds, some rhonchi that clears with cough CV: S1-S2, regular Abdomen: Soft, nontender, nondistended Extremities: Trace edema, Venous stasis dermatitis Neuro: No focal deficits Psych: Cooperative, normal mood Results & Data Results & Data Vital Signs (Past 12 Hours) Vital Signs Temp Pulse Resp BP Pulse Ox O2 Del Method 12/22/24 07:37 36.5 C 98 H 16 119/63 98 Room Air Diagnostic Findings Reviewed imaging, laboratory and diagnostic studies. Pertinent findings as below. 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
[2024-12-22] MEDS: FUROSEMIDE 40 MG/4 ML VIAL IV ONE (11:20)
[2024-12-22] MEDS: POTASSIUM CHLORIDE CRTAB 20 MEQ TABCR PO ONE (11:20)
--- NOTE | 2024-12-22 11:54 | Nephrology Consultation ---
Date of Consultation December 22, 2024 Assessment & Plan (1) End stage renal disease on dialysis: TTS dialysis patient. Has AVF. Dialysis now Complicated by resp failure --Multifactorial cause but mainly Inf A currently + recent Covid and superimposed fluid overload/Pulm edema. Despite all that she is not needing much o2 and Appears decently comfortable. Will remove more fluid than usual with dialysis tomorrow. BUN and creat as expected for ESRD. NO lytes issues. AVF looks good. BP for now looks decent and hopefully should be good enough to support more aggressive fluid removal. However she is already On midodrine meaning has issues with Low BP. Will continue same and give midodrine before dialysis tomorrow. Continue Cinacalcet and her home Meds related with Dialysis. hgb is goal at 10.2 but will need EPo tomorrow give 10K units with dialysis. Check Phos with AM labs. no binders currently. (2) Acute on chronic hypoxic respiratory failure: Multifactorial cause but mainly Inf A currently + recent Covid and superimposed fluid overload/Pulm edema. Despite all that she is not needing much o2 and Appears decently comfortable. Will remove more fluid than usual with dialysis tomorrow (3) Influenza A with pneumonia: On Tamiflu--to be continued. (4) Acute on chronic systolic heart failure due to valvular disease: Plan Time spent 62 mins. History of Present Illness Reason for Consultation: ESRD on dialysis now with Influenza Attending Physician: Manuel Galaviz DO History of Present Illness 69/F with ESRD on TTS in [facility] through her AVF. Worsening weakness and SOB and fever last few days. Since her Covid --needing Hospital admission has been weak and not eating much and loosing weight. Her was starting to have similar symptoms of malaise and fevers. She did have dialysis yesterday but looked ill and nurses suggested her to go to ED. then Symptoms progressed with fever and cough and SOB and came to ED. she did test positive for influenza. Patient does have known significant rito vular dysfunction also. She reports that she has not been wearing her oxygen all the time at home since her last discharge in October. She states that her oxygen saturations at home is oftentimes in the 90s on room air. ROS---see hpi. 12 systems otherwise negative Physical Exam Physical Exam: Constitutional: Alert, Awake and normal speech.No resp distress HEENT: Mucous membranes moist. Lungs: Decreased breath sounds, some rhonchi b/l CV: S1-S2, regular Abdomen: Soft, nontender, nondistended Extremities: Trace edema, Venous stasis dermatitis + skin Breakdown multiple areas Allergies Allergy/AdvReac Type Severity Reaction Status Date / Time Sulfa (Sulfonamide Allergy Severe Face/lips/tongue Verified 10/30/24 15:19 Antibiotics) edema nitrofurantoin Allergy Intermediate Hives Verified 10/30/24 15:19 cefazolin [From Ancef] Allergy Unknown CAN'T Verified 10/30/24 15:19 REMEMBER pantoprazole [From Protonix] Allergy Unknown CAN'T Verified 10/30/24 15:19 REMEMBER methylprednisolone AdvReac Intermediate Sweating, Verified 10/30/24 15:19 [From Medrol] heart racing Home Medications Medication Instructions Recorded Confirmed Type gabapentin 100 mg capsule 100 mg PO DIRECTED 12/31/18 12/21/24 History citalopram 20 mg tablet 20 mg PO QAM 04/04/21 12/21/24 History betamethasone dipropionate 0.05 % 1 applic topical BID PRN 11/15/23 12/21/24 History topical ointment PSORIASIS/ITCHING ropinirole 2 mg tablet 2 mg PO HS 11/15/23 12/21/24 History simvastatin 20 mg tablet 20 mg PO HS 11/15/23 12/21/24 History vitamin B complex-vitamin C-folic 1 tab PO QAM 11/15/23 12/21/24 History acid 0.8 mg tablet (Anais-Federico) dulaglutide 0.75 mg/0.5 mL 0.75 mg subcut WK 02/26/24 12/21/24 History subcutaneous pen injector (Trulicity) fluticasone furoate 200 1 inh inhalation DAILY PRN asthma 04/22/24 12/21/24 History mcg-vilanterol 25 mcg/dose inhalation powder (Breo Ellipta) triamcinolone acetonide 0.1 % 1 applic topical BID PRN Skin 04/22/24 12/21/24 History topical cream Irritation cholecalciferol (vitamin D3) 125 125 mcg PO UD 09/23/24 12/21/24 History mcg (5,000 unit) tablet (Vitamin D3) cinacalcet 90 mg tablet (Sensipar) 90 mg PO QPM 09/23/24 12/21/24 History epoetin beta, methoxy peg 100 100 mcg IV UD 09/23/24 12/21/24 History mcg/0.3 mL injection syringe (Mircera) iron sucrose 50 mg iron/2.5 mL 50 mg IV UD 09/23/24 12/21/24 History intravenous solution lanthanum 750 mg chewable tablet 750 mg PO TIDWMEAL 10/30/24 12/21/24 History (Fosrenol) triamcinolone acetonide 0.1 % 1 applic topical BID PRN Skin 10/30/24 12/21/24 History topical ointment Irritation buprenorphine 15 mcg/hour weekly 1 patch topical WK 12/21/24 12/21/24 History transdermal patch midodrine 2.5 mg tablet 5 mg PO UD 12/21/24 12/21/24 History Patient History Medical History Swelling of right upper extremity Lower urinary tract symptoms (LUTS) Hx of fall ESRD (end stage renal disease) on dialysis Diaylsis Tu//Sat- [facility] Follows with Dr. Perez Chronic pain History of cellulitis Anemia Hx of gastrointestinal hemorrhage History of dialysis fistulography Ambulatory dysfunction walker-dependent Anxiety and depression RLS (restless legs syndrome) History of blood transfusion 2022 Pulmonary hypertension mild on 2020 echo Sleep apnea severe-not currently treated per pt Moderate aortic stenosis (MELCHOR 0.8 cm2, mean PG 20 mmHg) Diabetes mellitus, type 2 Limb alert care status RUE AVF Osteoporosis HLD (hyperlipidemia) Psoriasis History of renal calculi History of DVT (deep vein thrombosis) RLE, 10+ years ago, post op AC therapy x 3-6 months after > d/c'd + no issues since History of pulmonary embolus (PE) 10+ years ago, post op- no issues since Surgical History History of esophagogastroduodenoscopy (EGD) Hx of bilateral hip replacements H/O laparoscopy History of cystoscopy S/P arteriovenous (AV) fistula repair (~2020) x2 right- currently getting HD History of tooth extraction History of x 2 S/P arteriovenous (AV) fistula creation x 2 BL (non functioning on left)--left still in place not working History of colonoscopy H/O partial resection of colon (2012) For diverticulitis H/O inguinal hernia repair left S/P cholecystectomy Family History Mother Diabetes Sister Diabetes Other No family history of adverse response to anesthesia Social History Smoking Status: Never smoker Tobacco Type: Cigarettes Second Hand Exposure: No; Do You Dip or Chew Tobacco: No; Hx Alcohol Use: No Hx Substance Use: No Preferred Language: Monegasque Communication Ability: Effective Food Service Clerk Required: No Beliefs That Will Affect Care: None marital status: Current Living Situation: Spouse Current Living Situation Comment: lives in 2 story home with , daughter and grandson How many Children do You have: 3 Other Information That Helps Us Care for You: No Feels Safe at Home: Yes Safety Concerns: Feels Safe At This Time Assistive Devices: Denture - Upper, Denture - Lower, Oxygen - Continuous and Walker Results & Data Vital Signs (Past 12 Hours) Vital Signs Temp Pulse Resp BP Pulse Ox O2 Del Method 12/22/24 07:37 36.5 C 98 H 16 119/63 98 Room Air Laboratory Results CBC, renal Panel. resp panel--reviewed Diagnostic Findings CXR--Mixed Pneumonia/Flu and CHF picture--my own Interpretation
[2024-12-22] MEDS: MELATONIN 3 MG TAB PO PRN (20:14)
[2024-12-22] MEDS: LORazepam 0.5 MG TAB PO STA (20:14)
--- NOTE | 2024-12-22 21:29 | Electrocardiogram Report ---
Test Reason : Blood Pressure : */* mmHG Vent. Rate : 111 BPM Atrial Rate : 111 BPM P-R Int : 158 ms QRS Dur : 84 ms QT Int : 340 ms P-R-T Axes : 36 77 32 degrees QTcB Int : 462 ms Sinus tachycardia Possible Anterior infarct (cited on or before 11-Jul-2021) Abnormal ECG When compared with ECG of 30-Oct-2024 11:24, Premature atrial complexes are no longer Present Confirmed by Richar Vargas ([id number]) on 12/22/2024 9:29:27 PM Referred By: REFERRED SELF Confirmed By: Richar Vargas
[2024-12-22] MEDS: SIMETHICONE 80 MG CHEW PO ONE (21:34)
--- NOTE | 2024-12-23 04:28 | Communication Note ---
Date of Service: December 23, 2024 Patient with abdominal pain and emesis throughout the day as per RN. Clear liquid diet for now CT abdomen pelvis
[2024-12-23] MEDS: PROMETHAZINE 6.25 MG/50.25 ML BAG IV ONE (04:44)
[2024-12-23] MEDS: IPRATROPIUM BROMIDE NEB SOLN 0.02% 0.5MG/2.5ML VIAL INH STA (05:41)
[2024-12-23] MEDS: LEVALBUTEROL 1.25 MG/3 ML NEB NEB STA (05:42)
--- NOTE | 2024-12-23 06:23 | CT Scan Report ---
EXAM: CT abd pelvis wo con CLINICAL HISTORY: abd pain nv TECHNIQUE: Non-contrast CT of the abdomen and pelvis was performed, with the following protocol: axial images, and reconstructed coronal and sagittal images. No intravenous contrast was administered. One of the following dose reduction techniques was utilized for this exam: Automated exposure control, adjustment of the mA and/or kV according to patient size, and use of iterative reconstruction. COMPARISON: Comparison is made with 02/27/2024 CT abd pelvis FINDINGS: Visulized lung gerber showed bilateral minimal effusions, stable Bilateral lung lower lobes small airspace opacities and infiltrates likely infectious. Abdomen: Liver: Normal in size, shape, and density. Calcified granuloma at right liver lobe noted. Gallbladder: not visualized. Pancreas: The pancreatic head, body, and tail are visualized and appear normal in size and density. No pancreatic masses or calcifications were noted. Spleen: Normal in size, shape, and density. No splenic lesions or masses were identified. Kidneys and Adrenal Glands: Both kidneys are atrophied with decreased cortical thickness and marked renal sinus lipomatosis (stable). Stable bilateral renal vascular calcification vs small non-obstsctructing stones. Adrenal glands are unremarkable. Extensive atherosclerotic disease of visualized aorta and its branches. Appendix: The appendix is not visualized. No CT evidence of acute appendicitis. Pelvis: Urinary Bladder: Normal in contour and wall thickness. No intraluminal lesions. Uterus: showed mural calcifications. Ovaries: Not well visualized, but no gross abnormalities noted. Large left lower anterior abdominal/inguinal hernia containing non-obstructed bowel loops. No evidence of bowel obstruction or wall thickening. Colonic diverticulosis. No evidence of diverticulitis. Bones and Soft Tissues: diffuse osteopenia and degenerative changes, and bilateral hip prosthesis causing streak artifacts degrading image quality. IMPRESSION: 1. Visulized lung gerber showed bilateral minimal effusions (stable). Bilateral lung lower lobes small airspace opacities and infiltrates likely infectious. (new finding) 2. Calcified granuloma at right liver lobe noted. 3. Both kidneys are atrophied with decreased cortical thickness and marked renal sinus lipomatosis (stable). 4. Stable bilateral renal vascular calcification vs small non-obstsctructing stones. 5. Large left lower anterior abdominal/inguinal hernia containing non-obstructed bowel loops. stable. 6. Extensive atherosclerotic disease of visualized aorta and its branches (stable). 7. No other significant interval changes. Electronically signed by Isaias Hughes 12-23-2024 06:23 AM
--- NOTE | 2024-12-23 06:32 | XRay Report ---
EXAM: XR chest 1V portable CLINICAL HISTORY: bhakti bs TECHNIQUE: An X-ray image of the chest is obtained in AP projection. COMPARISON: 12/21/2024 CR FINDINGS: Pulmonary Parenchyma: Bilateral increase reticulation, non-homogenous haziness, and upper lobe diversion. No pulmonary nodules identified. Obscured left Cp angle. with haziness Heart and Mediastinum: Cardiomegaly with bilateral bulky yoselin. Perihilar opacities noted. Bony Thorax: Bony thorax shows degnerative changes Stable old fracture of the left second and third ribs posteriorly. Soft Tissues: Soft tissues overlying the chest wall are unremarkable. Surgical clips in the right axilla IMPRESSION: 1. Bilateral perihilar opacities, increase reticulation, non-homogenous haziness, and upper lobe diversion suggestive of pulmonary oedema rather than inflammatory process. Atypical/viral infection cannot be excluded totally. Stable since prior study. 2. Cardiomegaly, stable. 3. Please correlate clinically. Electronically signed by Isaias Hughes 12-23-2024 06:32 AM
[2024-12-23 07:45] VITALS: RESP 18; O2SAT 95
[2024-12-23 07:47] LABS: BUN Creatinine Ratio 9.8 (10-20); Calcium 8.2 mg/dl (8.6-10.3); Creatinine Clr Calc Pharmacy 9.4 ml/min; Magnesium 2.3 mg/dl (1.7-2.4); Phosphorus 6.9 mg/dl (2.5-4.9); Potassium 4.2 mmol/L (3.5-5.1)
[2024-12-23] MEDS: CHOLECALCIFEROL 125 MCG (5,000 UNITS) TAB PO SCH (08:03)
--- NOTE | 2024-12-23 11:52 | Discharge Summary ---
Discharge Summary Date of Service December 23, 2024 Principal Dx & Hospital Course #1 = Principal Diagnosis (1) Sepsis: (2) Influenza A with pneumonia: (3) Acute on chronic hypoxic respiratory failure: (4) Demand ischemia of myocardium: (5) Acute on chronic systolic heart failure due to valvular disease: (6) End stage renal disease on dialysis: (7) DM type 2 (diabetes mellitus, type 2): Plan Patient is 69-year-old female end-stage renal disease presented to the ED with sepsis and acute on chronic respiratory failure due to influenza pneumonia. Patient also was exhibiting signs of some volume/fluid overload in the setting of this infection. Patient was admitted to the hospital. She was started on Tamiflu. She was given some additional oxygen support but was quickly titrated down to her usual home oxygen requirement. Patient does continue to make urine and was given a couple doses of IV Lasix which she responded well to. The following day she was significantly improved. On admission she was extremely fatigued, malaise, arthralgias, myalgias and they were steadily improving. She was given another day to recover and make sure her oxygen requirements remained stable. She was seen by nephrology for ongoing hemodialysis needs. Then night prior to her discharge she did have acute episode of nausea and vomiting. CT of the abdomen was performed which showed no evidence of obstruction. They did mention some infiltrates the base of the lungs this is most consistent with influenza pneumonia. Her procalcitonin actually decreased during her hospitalization off antibiotics. Continue treatment Tamiflu. On further questioning it was learned that the patient's roommate had a large bowel movement and the smell made the patient nauseated and have emesis. She states that she has no abdominal pain now she tolerated her liquids and actually asking for more to eat here at lunch. She is feels extremely confident going home today after hemodialysis. She will complete the course of Tamiflu at home. She will continue her usual hemodialysis and follow-up with her outpatient providers. Notes For Next Care Provider Medication Changes From Visit Tamiflu for influenza treatment Mucinex and Tessalon for mucolytic and antitussive Admission HPI Per Admitting Provider Patient 69-year-old female with end-stage renal disease on hemodialysis on Friday started to feel a bit ill and wiped out. This progressed over the next several days. Her was starting to have similar symptoms of malaise and fevers. And the grandson who also lives with them. She was able to go to her usual hemodialysis session today. However, she commented that the dialysis staff recommended she go to the ER because she just looked ill and she was not feeling all that great. She went home from hemodialysis continue to feel wiped out and fatigued and tired a bit more short of breath a lot of coughing came to the emergency room and emergency room she did test positive for influenza. Additional workup in the ED was consistent with her end-stage renal disease and her flu. Patient does have known significant valvular dysfunction and end-stage renal disease. She was febrile here in the ED. She denies any problems with her bowels. She is does still make urine and urinates a few times a day. Other than the malaise and myalgias and fatigue she states that she has been eating well and denies any chest pain. She reports that she has not been wearing her oxygen all the time at home since her last discharge in October. She states that her oxygen saturations at home is oftentimes in the 90s on room air. Admission Exam Per Admitting Provider See H&P Discharge Exam Constitutional: Alert, nontoxic, significantly improved in appearance from admission HEENT: Mucous membranes moist. Lungs: Decreased breath sounds, rhonchi and rails and crackles improved CV: S1-S2, regular Abdomen: Soft, nontender, nondistended Extremities: No significant edema chronic venous stasis dermatitis Neuro: No focal deficits Psych: Cooperative, normal mood Updated Medication List Medication Instructions Recorded Confirmed Type gabapentin 100 mg capsule 100 mg PO DIRECTED 12/31/18 12/21/24 History citalopram 20 mg tablet 20 mg PO QAM 04/04/21 12/21/24 History betamethasone dipropionate 0.05 % 1 applic topical BID PRN 11/15/23 12/21/24 History topical ointment PSORIASIS/ITCHING ropinirole 2 mg tablet 2 mg PO HS 11/15/23 12/21/24 History simvastatin 20 mg tablet 20 mg PO HS 11/15/23 12/21/24 History vitamin B complex-vitamin C-folic 1 tab PO QAM 11/15/23 12/21/24 History acid 0.8 mg tablet (Anais-Federico) dulaglutide 0.75 mg/0.5 mL 0.75 mg subcut WK 02/26/24 12/21/24 History subcutaneous pen injector (Trulicity) fluticasone furoate 200 1 inh inhalation DAILY PRN asthma 04/22/24 12/21/24 History mcg-vilanterol 25 mcg/dose inhalation powder (Breo Ellipta) triamcinolone acetonide 0.1 % 1 applic topical BID PRN Skin 04/22/24 12/21/24 History topical cream Irritation cholecalciferol (vitamin D3) 125 125 mcg PO UD 09/23/24 12/21/24 History mcg (5,000 unit) tablet (Vitamin D3) cinacalcet 90 mg tablet (Sensipar) 90 mg PO QPM 09/23/24 12/21/24 History epoetin beta, methoxy peg 100 100 mcg IV UD 09/23/24 12/21/24 History mcg/0.3 mL injection syringe (Mircera) iron sucrose 50 mg iron/2.5 mL 50 mg IV UD 09/23/24 12/21/24 History intravenous solution lanthanum 750 mg chewable tablet 750 mg PO TIDWMEAL 10/30/24 12/21/24 History (Fosrenol) triamcinolone acetonide 0.1 % 1 applic topical BID PRN Skin 10/30/24 12/21/24 History topical ointment Irritation buprenorphine 15 mcg/hour weekly 1 patch topical WK 12/21/24 12/21/24 History transdermal patch midodrine 2.5 mg tablet 5 mg PO UD 12/21/24 12/21/24 History benzonatate 100 mg capsule 100 mg PO TID PRN cough #30 caps 12/23/24 Rx guaifenesin 600 mg tablet, 600 mg PO Q12 PRN cough/congestion 12/23/24 Rx extended release 12 hr (Mucinex) #30 tabs midodrine 2.5 mg tablet 5 mg (2 x 2.5 mg) PO 12/23/24 Rx TID@0800,1200,1700 #90 tabs oseltamivir 30 mg capsule (Tamiflu) See Rx Instructions .Route 12/23/24 Rx .COMPLEX #3 caps Hospital Stay Data Consultations 12/21/24 17:37 ED Decision to Admit Stat 12/21/24 19:19 Consult Nephrology Routine Diagnostic Imagining Performed 12/23/24 04:27 CT Abd and Pelvis [CT abd pelvis wo con] Stat Reviewed imaging, laboratory and diagnostic studies. Pertinent findings as below. Electrolytes stable Creatinine 5.4 Pro-Matias system 1.45 Chest x-ray consistent with some pulmonary edema and influenza pneumonia CT abdomen pelvis no acute abnormalities, no obstruction Pending Results Patient Have Any Pending Studies at Discharge: No Discharge Instructions Given to Patient (Per Discharging Provider) Continue to wear your oxygen at home as previously prescribed Continue your usual hemodialysis schedule Total Time Total Time Spent Total Time Spent (In Minutes): 32
--- NOTE | 2024-12-23 12:28 | Dialysis Progress Note ---
Date of Service December 23, 2024 Assessment & Plan Admission and Anticipated Discharge Date Admission Date: December 21, 2024 Subjective Assessment & Plan (1) End stage renal disease on dialysis: TTS dialysis patient. Has AVF. Dialysis now Complicated by resp failure --Multifactorial cause but mainly Inf A currently + recent Covid and superimposed fluid overload/Pulm edema. Despite all that she is not needing much o2 and Appears decently comfortable. Will remove more fluid than usual with dialysis tomorrow. BUN and creat as expected for ESRD. NO lytes issues. AVF looks good but some problem today with Cannulation. BP for now looks decent and hopefully should be good enough to support more aggressive fluid removal. However she is already On midodrine meaning has issues with Low BP. Will continue same and give midodrine before dialysis tomorrow. Will do 2K and take 3 kilo off (2) Acute on chronic hypoxic respiratory failure: Multifactorial cause but mainly Inf A currently + recent Covid and superimposed fluid overload/Pulm edema. Despite all that she is not needing much o2 and Appears decently comfortable. Will remove more fluid than usual with dialysis today--aim for 3 kilo (3) Influenza A with pneumonia: On Tamiflu--to be continued. (4) Acute on chronic systolic heart failure due to valvular disease: S---Seen during Dialysis. Some difficult in cannulating. She had N, v and More SOB last night. On 4 liters o2 now. Physical Exam Physical Exam: Constitutional: Alert, Awake and normal speech.No resp distress HEENT: Mucous membranes moist. Lungs: Decreased breath sounds, some rhonchi b/l CV: S1-S2, regular Abdomen: Soft, nontender, nondistended Extremities: Trace edema, Venous stasis dermatitis + skin Breakdown multiple areas Results & Data Vital Signs (Past 12 Hours) Vital Signs Temp Pulse Resp BP Pulse Ox O2 Del Method O2 Flow Rate 12/23/24 07:44 36.4 C L 96 H 18 122/76 95 Nasal Cannula 2 12/23/24 07:27 Nasal Cannula 2 12/23/24 05:42 97 H 96 Nasal Cannula 3
[2024-12-23] MEDS: EPOETIN ALFA 10000 UNIT/ML IV ONE (13:22)
[2024-12-23 14:08] VITALS: TEMP 97.7
[2024-12-23 14:40] VITALS: BP 100/54; PULSE 77
== END 2024-12-23 18:01 | disposition home or self-care (01) | DRG 871 ==
LOC: ED 15:43 → EDINP 18:07 → 3N 19:19
DX: I24.89 Other forms of acute ischemic heart disease; F41.9 Anxiety disorder, unspecified; E78.5 Hyperlipidemia, unspecified; Z86.718 Personal history of other venous thrombosis and embolism; Z88.8 Allergy status to other drugs, medicaments and biological substances; I35.0 Nonrheumatic aortic (valve) stenosis; Z88.2 Allergy status to sulfonamides; N18.6 End stage renal disease; F32.A Depression, unspecified; A41.89 Other specified sepsis; D63.1 Anemia in chronic kidney disease; Z83.3 Family history of diabetes mellitus; Z79.899 Other long term (current) drug therapy; I50.23 Acute on chronic systolic (congestive) heart failure; J10.01 Influenza due to other identified influenza virus with the same other identified influenza virus pneumonia; Z99.2 Dependence on renal dialysis; M81.0 Age-related osteoporosis without current pathological fracture; J96.21 Acute and chronic respiratory failure with hypoxia; Z88.1 Allergy status to other antibiotic agents; G25.81 Restless legs syndrome; Z79.85 Long-term (current) use of injectable non-insulin antidiabetic drugs; E11.22 Type 2 diabetes mellitus with diabetic chronic kidney disease

== ENCOUNTER 2025-02-24 07:19 | Inpatient (IN) ==
--- OUTSIDE RECORDS SUMMARY | 2025-02-24 07:26 | External Medical Summary | Summary of Care ---
Author Name Unknown Organization [facility] Address [address] [place] [address] Phone [phone] Care Team Providers Care Geophysical Computer Name Role Phone Willie Epstein MD Primary Care Provider + Reason for Visit * Reason Onset Date Comments Advice 02/11/2025 Encounter Details Date Type Department Care Team (Late st Contact Info) Description 02/11/2025 Telephone Family Practice [facility] [address] [place] [address] Willie Epstein MD [address] [place] [id number] Advice Allergies Active Allergy Reactions Criticality Noted Date Comments Cefazolin Unknown 11/15/2023 Other Reaction(s): CAN'T REMEMBER Methylprednisolone Other (Please comment) 07/28/2017 Side effects c/w med (sweating, heart racing etc) Nitrofurantoin Hives High 03/01/2024 Nitrofurantoin Monohyd Macro Hives 04/04/2014 Pantoprazole Unknown 11/15/2023 Other Reaction(s): CAN'T REMEMBER Sulfa Antibiotics Edema face/lips/tongue High 09/02/2008 documented as of this encounter (statuses as of 02/11/2025) Medications INSULIN SYRINGE-NEEDLE U-100 30G X 1/2" 1 ML MISCIndications:DM type 2, goal A1c below 7 Use as directed 1 Box of 100 11 8 Active RENAL MULTIVITAMIN/ZINC PO TABS None Entered Active ONETOUCH ULTRASOFT LANCETS MISCIndications:Ty pe 2 diabetes mellitus with hemoglobin A1c goal of less than 8.0% ([facility]) Use as directed 2 times a day. 1 Box Dosing Unit 11 7 Active cinacalcet (SENSIPAR) 30 MG Tablet Take 1 Tab by mouth daily with dinner. 90 Tab 3 8 Active Blood Glucose Monitoring Suppl (JustParts ULTRA 2) w/Device KIT Use to check blood sugar 2 times a day; E11.9. 1 Kit 0 Active Glucose Blood (CaviarUCH ULTRA BLUE) STRP Use to check blood sugar 2 times a day; E11. 200 Box Dosing Unit 3 0 Active Albuterol Sulfate HFA 108 (90 Base) MCG/ACT Inhalation Aerosol SolutionIndication s:Bronchitis, complicated TAKE 2 PUFFS BY MOUTH EVERY 6 HOURS NEEDED FOR WHEEZE 18 g 3 Active Betamethasone Dipropionate 0.05 % External OintmentIndication s:Plaque psoriasis APPLY 2X DAILY (OR MORE IF ITCHY INSTEAD OF SCRATCHING) TO AFFECTED PSORIASIS SPOTS ON ARMS/LEGS UNTIL RESOLVED 50 g 1 4 Active Aspirin 81 MG Oral Tablet Chewable Take 1 Tablet by mouth in the morning. ON HOLD OF 03/02/24. Active Gabapentin 100 MG Oral Capsule (Neurontin)Indicat ions:Spondylolisth esis of lumbosacral region TAKE 1 CAPSULE BY MOUTH DAILY + 1 DOSE EXTRA AFTER DIALYSIS EVERY 3 DAYS. 135 Capsule 2 4 Active rOPINIRole HCl 2 MG Oral Tablet (Requip) TAKE 1 TABLET BY MOUTH AT BEDTIME. 1-3 HOURS BEFORE BEDTIME WITH FOOD FOR RESTLESS LEGS 90 Tablet 3 4 Active Triamcinolone Acetonide 0.1 % External Ointment (Aristocort)Indica tions:Inverse psoriasis APPLY 2X DAILY DURING WEEK (OFF ON WEEKENDS) TO PSORIASIS UNDER BREASTS UNTIL RESOLVED, THEN WHEN FLARING 454 g 4 Active dexAMETHasone 6 MG Oral Tablet (Decadron) Take 1 Tablet by mouth in the morning. 5 Active Midodrine HCl 2.5 MG Oral Tablet (Proamatine) Take 2 Tablets by mouth in the morning and 2 Tablets at noon and 2 Tablets before bedtime. 5 Active Ondansetron 4 MG Oral Tablet Disintegrating (Zofran) Place 1 Tablet on tongue daily as needed for Nausea or Vomiting. 5 Active Trulicity 0.75 MG/0.5ML Subcutaneous Solution Auto-injector (Dulaglutide)Indic ations:Type 2 diabetes mellitus with hemoglobin A1c goal of less than 8.0% (HCC) INJECT UNDER THE SKIN 0.75 MG ONCE A WEEK 6 mL 1 5 Active guaiFENesin ER 600 MG Oral Tablet Extended Release 12 Hour (Humibid LA) Take 1 Tablet by mouth in the morning and 1 Tablet before bedtime. 5 Active Celecoxib 200 MG Oral Capsule (CeleBREX) Take 1 Capsule by mouth in the morning and 1 Capsule before bedtime. 60 Capsule 5 5 Active Simvastatin 20 MG Oral Tablet (Zocor)Indications :Dyslipidemia, goal LDL below 70 TAKE ONE TABLET BY MOUTH ONCE A DAY AT BEDTIME 90 Tablet 1 5 Active Citalopram Hydrobromide 20 MG Oral Tablet (CeleXA) TAKE 1 TABLET BY MOUTH EVERY DAY 90 Tablet 1 5 Active LORazepam 0.5 MG Oral Tablet (Ativan)Indication s:Psychophysiologi geoffrey insomnia Take 1 Tablet by mouth at bedtime as needed for Anxiety or Insomnia. 10 Tablet 5 Active documented as of this encounter (statuses as of 02/11/2025) Active Problems Problem Noted Date Diagnosed Date Ulcer of right lower extremi ty, limited to breakdown of skin 11/30/2024 Nonrheumatic aortic valve stenosis 09/20/2024 Nonrheumatic mitral [...] adult exam 08/04/2019 Overview (03/04/2024): 03/12 EGD [facility]-normal esoph, gastritis. Small hiatal hernia. Gastric 10mm diverticula 01/09 DEXA +osteoporosis. NEED discuss. 11/10 colon +tubular adenomas. 04/09 mult compression fractures. 05/2018 many polyps Therapeutic opioid induced constipation 08/04/20 ESRD on dialysis 09/08/2016 Overview (02/26/2021): 03/05 HCP forms given-wants . NEEDS further Living will 2017 consider transplant needs 20lb -HD [facility]? T,R, S. Since January 2013. Spondylolisthesis [...] as of this encounter (statuses as of 02/11/2025) Resolved Problems Problem Noted Date Diagnosed Date Resolved Date Thoracic compression fracture 04/09/2021 04/13/2021 Overview (04/09/2021): Mult levels 04/09 CT [facility] + lumbar Respiratory symptoms 01/08/2020 021 Fever of unknown origin (FUO) 01/07/2020 02/26/2021 Respiratory infection 01/07/20202020 Cellulitis 06/28/2016 09/08/2016 Abnormal vaginal bleeding 02/12/2016 Cellulitis 02/07/2016 09/08/2016 UTI (urinary tract infection), bacterial 04/19/2014 05/02/2014 Hypotension 04/15/2014 05/02/2014 Compression of lumbar vertebra 02/03/2013 06/07/2021 Overview (04/09/2021): Mult levels noted 04/[address] [facility] [address] also thoracic CKD (chronic [...] 08/25/200909/06 Overview (08/25/2009): Modified 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 USP current use of ant icoagulant therapy 04/19/2009 [...] B/L stents Sees Dr. Angel in [place] for Urology Osteoarthritis of hip 2018 documented as of this encounter (statuses as of 02/11/2025) Immunizations Name Administration Dates Next Due COVID-19 mRNA, LNP-s, No Pre serve, 2-Dose Series (PollVaultr) 09/11/2021,01/02/2021,12/12/2020 COVID-19, mRNA, LNP-s, PF, B ooster, 100mcg/0.5mg (Moderna) 02/26/2022 Covid-19, Mrna, Lnp-s, Pf, B ivalent, 30 Mcg, IM, 12 yrs and above (PollVaultr) 07/01/2022 H1N1 2009 Influenza, IM 10/17/2009 HEPATITIS B VACCINE, RECOMB, 20 MCG/ML, ADULT (HEPLISAV-B) 06/01/2024,05/28/2022,04/04/2022,02/26,01/29/2022 Hepatitis B, 0-19 yrs 03/07/2016, 016,11/02/2015,09/14,05/11/2013,04/13/2013,03/16/2013 Hepatitis B, 20+ yrs 03/07/2016,12/09/19 16,11/02/2015,09/14,05/11/2013,04/13/2013,03/16/2013 Pneumococcal Conjugate Vacc, 13 Valent (Prevnar) 12/31/2017,12/10/2016 Pneumococcal Polysaccharide PPV23 (Pneumovax) 08/20/2019,04/15/2006 RSV Vac., Recomb, Adjuvant, PF,0.5 Ml (Arexvy) 10/23/2023 Seasonal Influenza Vac., MDV , IM, 0.5 [...] Industry 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 (14 years old or [...] Telephone Encounter - Willie Epstein MD - 02/11/2025 12:14 PM EDT Noted. Will give short term lorazepam 0.5mg to help her sleep. Missed appt today (hadn't seen MyG),will see next Fri when she is next available. "I have reviewed the patient's controlled substance dispensing history in the Prescription Drug Monitoring Program in compliance with the [place] regulations before prescribing a controlled substance." Cc: Clifton Elise Amie Perez * Telephone Encounter - Jennifer Maravilla MED ASSIST - 02/11/2025 12:06 PM EDT Patient was unaware that she had an appointment, did not get call or message (message was sent but never seen by her) She states she has a couple things she will address with Dr. Epstein when she comes in - Pain in back - Anxiety level up a lot - Not sleeping for the past 5 days -- to the point that she had to leave dialysis early the on day. Patient would like to know if she can have something sent in to help sleep, or recommendations. Patient can come in next week on 02/16 @ 12:40 (will schedule and told her if she wanted to come tylor little earlier than 12:40 that day (like 12-12:20) then she is more than welcome to) * Telephone Encounter - Jennifer Maravilla MED ASSIST - 02/11/2025 11:55 AM EDT Attempted to reach patient -- someone picked up the phone and no one answered when I said "Amado" Tried to call back and had a busy signal. Was patient aware she had an appointment scheduled today with Dr. Epstein? If not, he can see her at the end of the day today if she is able. * Telephone Encounter - Willie Epstein MD - 02/11/2025 8:52 AM EDT She has appt w/me today--please let her know we will make a plan together at her appt. (Does it conflict with her dialysis? If yes, I can overbook at end of day today) * Telephone Encounter - Simran Suarez LPN - 02/11/2025 8:36 AM EDT Pt calling in c/o insomnia. States she has not slept in 5 nights. Pt has tried Melatonin with no relief. Pt is asking for something to help her sleep. Pharmacy has been verified. Please advise. * Telephone Encounter - Loi Lovett OSA - 02/11/2025 8:34 AM EDT Reason for patient's call: has a couple questions Caller was transferred to Simran at the nurse line. documented in this encounter Plan of Treatment Upcoming Encounters Date Type Department Care Team (Late st Contact Info) Description 02/16/2025 12:40 PM EDT Office Visit [facility] [address] [place] [address] Willie Epstein MD [address] [place] [address] 02/23/2025 12:20 PM EDT Office Visit [facility] [address] [place] [address] Coco Montanez DO [address] [place] [address] 03/11/2025 10:00 AM EDT Office Visit [facility] [address] [place] [address] Willie Epstein MD [address] [place] [address] 03/22/2025 2:40 PM EDT Office Visit Pharmacy, [facility] [address] [place] [address] [facility] [address] [place] [address] 03/29/2025 10:00 AM EDT Office Visit [facility] Disorders Ctr [facility] [address] [place] [phone] Erika Bocanegra CRNP [address] [place] [address] 06/13/2025 11:00 AM EDT Cardiac Studies Cardiac Studies, [facility] [address] [place] [phone] 07/04/2025 4:00 PM EDT Office Visit Cardiology, [facility] [address] [place] [place] [place] [phone] Bandar Avila MD [address] [place] [address] 08/03/2025 11:00 AM EDT Office Visit [facility] [address] [facility] [place] [phone] Coco Ivan PA-C [address] [place] [address] [place] [address] Scheduled Procedures Name Priority Associated Diagnoses Date/Ti me COLONOSCOPY FLEXIBLE PROXIMAL DIAGNOSTIC Recall History of colon polyps Health Maintenance Due Date Last Done Comments Cologuard 1999 Fecal Occult Blood Test 1999 Sigmoidoscopy 1999 Zoster Vaccines (1 of 2) 02/02/2004 Adult Wellness Visit 02/02/2020 COVID-19 Vaccine ( season) 2024 07/01/2022, 02/26/2022, 09/11/2021, Additional history exists Colonoscopy 11/09/2024 11/09/2021, 05/20, 02/07/2012, Additional history exists Colorectal Cancer Screening 11/09/2024 HbA1c 02/03/2025 08/05/2024, 03/20, 06/07/2021, Additional history exists Diabetic Eye Exam 05/05/2025 11/15/2022, (Done elsewhere), 05/10/2020, Additional history exists Postponed from 11/15/2023 (Unavailable) Mammogram 05/07/2025 05/07/2024, 03/20, 03/29/2022, Additional history exists Depression Screening 08/03/2025 08/03/2024, 03/21/2017 (Declined) Diabetic Foot Exam 08/03/2025 08/03/2024, 0 01/26/2021, 01/14/2019, Additional history exists DTap/Tdap Vaccines (3 - Td or Tdap) 12/29/2028 12/29/2018, 04/19/2009, 11/06/1998 Lipid Panel 01/28/2030 01/28/2025, 08/0 01/2022, 02/26/2021, Additional history exists Pneumococcal Vaccine: 50+ Years Completed 08/20/2019, 12/31/2017, [...] on patient's age to complete this topic Meningitis B Vaccine (Bexsero/Trumemba) Aged Out No longer eligible based on patient's age to complete this topic documented as of this encounter Medical Devices Implanted Type Area Supervisor Molding Device Identifier Shelf Expiration Date Model / Serial / Lot Cement Antibiotic Bone - [id number] Implanted:Qty: 3 on 04/28/2012 at [facility] Right: Hip VERONICA : OR[employer] 11/19/2013 [id number] / / [id number] Prostalac Acetabular Cup Implanted:Qty: 1 on 04/28/2012 at [facility] Right: Hip SUBHA & SUBHA DEPUY 05/19/2017 1541-42-320 / / [id number] Prostalac Hip Stem Size 105mm Std Offset Implanted:Qty: 1 on 04/28/2012 at [facility] Right: Hip SUBHA & SUBHA DEPUY 10/19/2021 1541-01-000 / / [id number] Description:Prostalac Hip St em Size 105mm Offset (Depuy) Ball Artic Wiliam Brn 32 Plus5 - [id number] Implanted:Qty: 1 on 04/28/2012 at [facility] Right: Hip JNJ : DEPU[employer] ORTHOPAED[employer] 10/19/2016 [id number] / / [id number] Rest Mod Prox Cone Body 23 +11 - [id number] Implanted:Qty: 1 on 04/14/2014 at [facility] Right: Hip [employer] : [employer] 10/19/2018 6276-1-123 / / [id number] Head Fem 28mm - [id number] Implanted:Qty: 1 on 04/14/2014 at [facility] Right: Hip [employer] : [employer] 08/19/2018 6570-0-228 / / [id number] Insert 28mm - [id number] Implanted:Qty: 1 on 04/14/2014 at [facility] Right: Hip [employer] : [employer] 02/16/2019 1236-2-848 / / [id number] Cable/Sle Beaded D/M 20 Vit - [id number] Implanted:Qty: 1 on 04/14/2014 at OR [facility] Right: Hip [employer] : [employer] 10/19/2017 6704-0-520 / / [id number] Cable/Sle Beaded D/M 20 Vit - [id number] Implanted:Qty: 1 on 04/14/2014 at [facility] Right: Hip [employer] : [employer] 10/19/2017 6704-0-520 / / [id number] Tritanium Revision Acetabular - [id number] Implanted:Qty: 1 on 04/14/2014 at [facility] Right: Hip [employer] : [employer] 05/19/2018 [id number] / / [id number] Screw Bone Osteolock 24 - [id number] Implanted:Qty: 1 on 04/14/2014 at [facility] Right: Hip [employer] : [employer] 02/16/2019 5260-5-024 / / [id number] Screw Bone Osteolock 35 - [id number] Implanted:Qty: 1 on 04/14/2014 at [facility] Right: Hip [employer] : [employer] 03/19/2017 5260-5-035 / / [id number] Liner 42mm - [id number] Implanted:Qty: 1 on 04/14/2014 at [facility] Right: Hip [employer] : [employer] 11/19/2018 [id number] / / [id number] Hip S Mod Conical Dis 98n375 - [id number] Implanted:Qty: 1 on 04/14/2014 at [facility] Right: Hip [employer] : [employer] 12/17/2018 6276-7-017 / / [id number] documented as of this encounter Visit Diagnoses Diagnosis Psychophysiological insomnia- Primary Persistent disorder of initiating or maintaining sleep documented in this encounter Advance Directives * [...] and were consensually agreed upon. Care Teams Geophysical Computer Relationship Specialty Start Date End Date Willie Epstein MD [address] [place] [address] PCP - General Family Medicine 11/22/16 documented as of this encounter
--- OUTSIDE RECORDS SUMMARY | 2025-02-24 07:26 | External Medical Summary | Summary of Care ---
Author Name Unknown Organization [facility] Address [address] [place] [address] Phone [phone] Care Team Providers Care Hooker Inspector Name Role Phone Willie Epstein MD Primary Care Provider + Reason for Referral * Medication Prior Authorization - Closed Specialty Diagnoses / Procedures Referred By Contjesus t Referred To Contact Diagnoses Cervical pain (neck) MEDICATION USE AGREEMENT Willie Epstein MD [address] [place] [address] Phone: tel: fax: Referral ID Status Reason Start Date Expiration Date Visits Re quested Visits Authorized [id number] Closed [phone] Reason for Visit * Reason Comments Follow Up Patient presents in office today for a follow-up visit. Encounter Details Date Type Department Care Team (Late st Contact Info) Description 02/16/2025 12:40 PM EDT Office Visit [facility] [address] [place] [address] Willie Epstein MD [address] [place] [place] [address] Cervical pain (neck)*; MEDICATION USE AGREEMENT; NAMITA (generalized anxiety disorder); Panic attack; Type 2 diabetes mellitus with hemoglobin A1c goal of less than 8.0% (HCC); ESRD on dialysis (HCC) Allergies Active Allergy Reactions Criticality Noted Date Comments Cefazolin Unknown 11/15/2023 Other Reaction(s): CAN'T REMEMBER Methylprednisolone Other (Please comment) 07/28/2017 Side effects c/w med (sweating, heart racing etc) Nitrofurantoin Hives High 03/01/2024 Nitrofurantoin Monohyd Macro Hives 04/04/2014 Pantoprazole Unknown 11/15/2023 Other Reaction(s): CAN'T REMEMBER Sulfa Antibiotics Edema face/lips/tongue High 09/02/2008 documented as of this encounter (statuses as of 02/16/2025) Medications INSULIN SYRINGE-NEEDLE U-100 30G X 1/2" 1 ML MISCIndications:DM type 2, goal A1c below 7 Use as directed 1 Box of 100 11 10/04/20 08 Active RENAL MULTIVITAMIN/ZINC PO TABS None Entered Active ONETOUCH ULTRASOFT LANCETS MISCIndications:Ty pe 2 diabetes mellitus with hemoglobin A1c goal of less than 8.0% ([facility]) Use as directed 2 times a day. 1 Box Dosing Unit 11 01/17/20 17 Active cinacalcet (SENSIPAR) 30 MG Tablet Take 1 Tab by mouth daily with dinner. 90 Tab 3 11/07/19 18 Active Blood Glucose Monitoring Suppl (IGI LABORATORIESTOUCH ULTRA 2) w/Device KIT Use to check blood sugar 2 times a day; E11.9. 1 Kit 10/22/19 20 Active Glucose Blood (ONETOUCH ULTRA BLUE) STRP Use to check blood sugar 2 times a day; E11.9. 200 Box Dosing Unit 3 10/22/19 20 Active Albuterol Sulfate HFA 108 (90 Base) MCG/ACT Inhalation Aerosol SolutionIndication s:Bronchitis, complicated TAKE 2 PUFFS BY MOUTH EVERY 6 HOURS NEEDED FOR WHEEZE 18 g 04/17/20 23 Active Betamethasone Dipropionate 0.05 % External OintmentIndication [...] LEGS 90 Tablet 3 06/30/20 24 Active Triamcinolone Acetonide 0.1 % External Ointment (Aristocort)Indica tions:Inverse psoriasis APPLY 2X DAILY DURING WEEK (OFF ON WEEKENDS) TO PSORIASIS UNDER BREASTS UNTIL RESOLVED, THEN WHEN FLARING 454 g 09/06/20 24 Active dexAMETHasone 6 MG Oral Tablet (Decadron) Take 1 Tablet by mouth in the morning. 11/04/19 25 Active Midodrine HCl 2.5 MG Oral Tablet (Proamatine) Take 2 Tablets by mouth in the morning and 2 Tablets at noon and 2 Tablets before bedtime. 11/04/19 25 Active Ondansetron 4 MG Oral Tablet Disintegrating (Zofran) Place 1 Tablet on tongue daily as needed for Nausea or Vomiting. 11/04/19 25 Active guaiFENesin ER 600 MG Oral Tablet Extended Release 12 Hour (Humibid LA) Take 1 Tablet by mouth in the morning and 1 Tablet before bedtime. 12/24/19 25 Active Celecoxib 200 MG Oral Capsule (CeleBREX) Take 1 Capsule by mouth in the morning and 1 Capsule before bedtime. 60 Capsule 5 01/29/20 25 Active Simvastatin 20 MG Oral Tablet (Zocor)Indications :Dyslipidemia, goal LDL below 70 TAKE ONE TABLET BY MOUTH ONCE A DAY AT BEDTIME 90 Tablet 1 01/31/20 25 Active LORazepam 0.5 MG Oral Tablet (Ativan)Indication s:Psychophysiologi geoffrey insomnia Take 1 Tablet by mouth at bedtime as needed for Anxiety or Insomnia. 10 Tablet 02/12/20 25 Active oxyCODONE HCl 15 MG Oral Tablet (Roxicodone)Indica tions:Cervical pain (neck),MEDICATION USE AGREEMENT Take 1 Tablet by mouth every 8 hours as needed for Pain, Severe. 90 Tablet 02/17/20 25 Active PARoxetine HCl 10 MG Oral Tablet (pAXil)Indications :NAMITA (generalized anxiety disorder),Panic attack Take 1 Tablet by mouth in the morning. 30 Tablet 2 02/17/20 25 Active Citalopram Hydrobromide 10 MG Oral Tablet (CeleXA)Indication s:NAMITA (generalized anxiety disorder),Panic attack Take 1 Tablet by mouth in the morning for 14 days. Then stop. Tapering off.. 14 Tablet 02/17/20 025 Active Trulicity 0.75 MG/0.5ML Subcutaneous Solution Auto-injector (Dulaglutide)Indic ations:Type 2 diabetes mellitus with hemoglobin A1c goal of less than 8.0% (HCC) INJECT UNDER THE SKIN 0.75 MG ONCE A WEEK 6 mL 1 11/08/19 25 025 Discontin ued(Medic ation List Clean Up) Citalopram Hydrobromide 20 MG Oral Tablet (CeleXA) TAKE 1 TABLET BY MOUTH EVERY DAY 90 Tablet 1 01/31/20 025 Discontin ued(Medic ation/Dos e Changed) documented as of this encounter (statuses as of 02/16/2025) Active Problems Problem Noted Date Diagnosed Date [...] exam 08/04/2019 Overview (03/04/2024): 03/12 EGD [facility]-normal esoph, gastritis. Small hiatal hernia. Gastric 10mm diverticula 01/09 DEXA +osteoporosis. NEED discuss. 11/10 colon +tubular adenomas. 04/09 mult compression fractures. 05/2018 many polyps Therapeutic opioid induced constipation 08/04/20 ESRD on dialysis 09/08/2016 Overview (02/26/2021): 03/05 HCP forms given-wants . NEEDS further Living will 2017 consider transplant needs 20lb -HD [place] [facility]? T,R, S. Since January 2013. Spondylolisthesis [...] as of this encounter (statuses as of 02/16/2025) Resolved Problems Problem Noted Date Diagnosed Date Resolved Date Thoracic compression fracture 04/09/2021 04/13/2021 Overview (04/09/2021): Mult levels 04/09 CT [facility] + lumbar Respiratory symptoms 01/08/2020 021 Fever of unknown origin (FUO) 01/07/2020 02/26/2021 Respiratory infection 01/07/20202020 Cellulitis 06/28/2016 09/08/2016 Abnormal vaginal bleeding 02/12/2016 Cellulitis 02/07/2016 09/08/2016 UTI (urinary tract infection), bacterial 04/19/2014 05/02/2014 Hypotension 04/15/2014 05/02/2014 Compression of lumbar vertebra 02/03/2013 06/07/2021 Overview (04/09/2021): Mult levels noted 04/[address] [facility] [address] also thoracic CKD (chronic [...] 08/25/200909/06 Overview (08/25/2009): Modified 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 [facility] current use [...] B/L stents Sees Dr. 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 [employer] Not on file Not on file Not on file documented as of this encounter Last Filed Vital Signs Vital Sign Reading Time Taken Comments Blood Pressure 120/60 02/16/2025 12:50 PM EDT Pulse 104 02/16/2025 12:50 PM EDT Temperature - - Respiratory Rate 16 02/16/2025 12:50 PM EDT Oxygen Saturation 96% 02/16/2025 12:50 PM EDT Inhaled Oxygen Concentration - - Weight - - Height 155.3 cm (5' 1.14") 02/16/2025 12:50 PM E DT Body Mass Index - - documented in this encounter Functional Status * Are you [...] Moriah Coughlin RN documented in this encounter Progress Notes * Willie Epstein MD - 02/16/2025 1:56 PM EDT Images from the original note were not included. Subjective Meka Hess is a 70 year old female presenting for Follow Up (Patient presents in office today for a follow-up visit.) History of Present Illness Meka Hess is a 70 year old female with anxiety, insomnia, and chronic pain who presents with worsening symptoms and medication management concerns. She experiences significant anxiety and insomnia without an identifiable trigger. Citalopram, whichshe has taken for over 20 years, seems ineffective. Panic attacks occur with symptoms of feeling like the world is closing in, tachycardia, and dyspnea, severe enough to interrupt dialysis sessions x2. Chronic pain is worsening, particularly in the neck, radiating down both arms, more on the right. She has difficulty lifting her arm and associates the pain with her dialysis fistula. A history of a thoracic spine compression fracture is confirmed by recent x-rays. Pt prev on oxy 15mg TID for pain.Didn't perceive as was helpful, so started on BUtrans patch, inc up to 15mcg. She did not perceive it as helpful, so stopped it on her own. Oddly did not seem to have significant withdrawal symptoms (although this overlaps some with her recent anxiety). She was rotated to meloxicam to eval possible opioid hyperalgesia syndrome--felt no relief on this,and nephrology would like to have this stopped to prevent volume overload, etc. Dialysis is increasingly challenging, with feelings of fatigue and being overwhelmed. Denies activeSI but admits passive SI. She has not called for a therapy appt--has a list of local therapists. patient has experienced improvement in pain control and level of functioning well on oxycodone. The narcotic will be used in combination with tolerated non pharmacologic therapy and non opiate pharacologic therapy and I have reviewed her medical record documentation for urine drug screening testing for listed and illicit drugs with the potential for abuse consistent with prescribed controlled substances. Patient has tried and failed non-drug pain management modalities and non-opioid drugs, acetaminophen, nsaids, etc. It will be used in combination with tolerated non drug therapies and non-opioid meds. Patient was assessed for potential risk of misuse, abuse, and addiction based on family and social history. Patient was counseled regarding potential side effects of opioids including risk or misuse, abuse, addiction. Patient was assessed for recent (w/in 60d) opioid use. Patient was evaluated for risk factors for opioid related harm. If identified to be at high risk for Opioid -related harm, the prescribed considered naloxone. Willie Epstein MD Objective BP 120/60 | Pulse 104 | Resp 16 | Ht 5' 1.14" (1.553 m) | LMP 11/16/2000 | SpO2 96% | BMI 32.73 kg/m² | BSA 1.84 m² Physical Exam Physical: BP 120/60 | Pulse 104 | Resp 16 | Ht 5' 1.14" (1.553 m) | LMP 11/16/2000 | SpO2 96% | BMI 32.73 kg/m² | BSA 1.84 m² General-No apparent Distress in wheelchair. Head, Eyes, Ears, Nose, Throat--Normocephalic, atraumatic Neck-Supple Lymph-no lymphadenopathy Lungs-Clear to Auscultation bilaterally Cardiovascular--Regular rate & Rhythm, +s1, s2, no murmurs Neuro-alert & oriented x3 Psych-+depressed mood normal affect + anxiety, panic symptoms no active SIHI IJ good MUSCULOSKELETAL: Right shoulder tenderness on palpation. Muscle spasm and tightness present. Pain with ROM shoulder (hx rotator tear). Results LABS A1c: 4.5% RADIOLOGY Thoracic spine x-ray: Moderate compression fracture of a lower thoracic vertebral body Assessment and Plan Assessment & Plan Anxiety and depression Chronic anxiety and depression, exacerbated recently. Current citalopram likely ineffective. Experiencing panic attacks, sleep issues, and increased anxiety during dialysis. - Taper citalopram to 10 mg for two weeks, then discontinue. - Initiate paroxetine 10 mg daily to rotate Rx. Discuss potential side effects, including nausea and dizziness. - Encouraged contacting a therapist from the provided list. - Check thyroid function to rule out thyroid-related anxiety and depression. Dialysis compliance Increased anxiety during dialysis leads to early termination of sessions. - Address anxiety with new medication regimen and therapy referral. Chronic pain Chronic pain in neck and arms, severe and impacts daily functioning. Previous medications ineffective or contraindicated. Hydromorphone is nationally in shortage, so will restart Oxycodone - Restart oxycodone 15 mg as needed. -consider referral to outside pain specialist if remains poorly controlled - Plan for trigger point injections at next visit. - Order x-ray of the neck. Counseled on use, risk, benefits, and alternatives of medications. Questions answered, patient expressed understanding. Cervical radiculopathy Suspected cervical radiculopathy due to shooting pain from neck down arms, primarily right side. - Order x-ray of the neck. Compression fracture of thoracic spine Moderate compression fracture of lower thoracic vertebral body, likely contributing to chronic pain. - Manage pain as per chronic pain plan. Diabetes Diabetes well-controlled with A1c of 4.5. - Discontinue Trulicity and monitor blood glucose levels. Cervical pain (neck) (Primary) - XR C SPINE 4-5 VIEWS - oxyCODONE HCl 15 MG Oral Tablet (Roxicodone); Take 1 Tablet by mouth every 8 hours as needed for Pain, Severe. MEDICATION USE AGREEMENT - XR C SPINE 4-5 VIEWS - oxyCODONE HCl 15 MG Oral Tablet (Roxicodone); Take 1 Tablet by mouth every 8 hours as needed for Pain, Severe. NAMITA (generalized anxiety disorder) - PARoxetine HCl 10 MG Oral Tablet (pAXil); Take 1 Tablet by mouth in the morning. - Citalopram Hydrobromide 10 MG Oral Tablet (CeleXA); Take 1 Tablet by mouth in the morning for 14 days. Then stop. Tapering off.. - TSH WITH FREE T4 IF INDICATED; Future; Expected date: 02/16/2025 Panic attack - PARoxetine HCl 10 MG Oral Tablet (pAXil); Take 1 Tablet by mouth in the morning. - Citalopram Hydrobromide 10 MG Oral Tablet (CeleXA); Take 1 Tablet by mouth in the morning for 14 days. Then stop. Tapering off.. - TSH WITH FREE T4 IF INDICATED; Future; Expected date: 02/16/2025 Type 2 diabetes mellitus with hemoglobin A1c goal of less than 8.0% (HCC) ESRD on dialysis (HCC) Wrap-Up Check-out note: Cancel 02/23/25 Dr Angeles appt. I spent a total of 40-54 minutes (exact time 44 mins) on the date of service in preparation, delivery, and documentation of the care provided to Meka Hess excluding any time spent in the performance of separately billed services. Text in this note was generated using an ambient documentation service. I discussed the use of a device to record and summarize our discussion today. All persons present during the encounter consented to its use. Cc: Dr Perez & Clifton Elise documented in this encounter Nursing Notes * Jennifer Maravilla, MED ASSIST - 02/16/2025 12:47 PM EDT The patient has been properly identified by confirmation of name and date of . Chief Complaint Patient presents with Follow Up Patient presents in office today for a follow-up visit. documented in this encounter Plan of Treatment Upcoming Encounters Date Type Department Care Team (Late st Contact Info) Description 03/11/2025 10:00 AM EDT Office Visit Family Practice [facility] [address] [place] [address] Willie Epstein MD [address] [place] [address] 03/22/2025 2:40 PM EDT Office Visit Pharmacy, [facility] [address] [place] [address] [facility] [address] [place] [address] 03/29/2025 10:00 AM EDT Office Visit Sleep Disorders Ctr [facility] [address] [place] [phone] Erika Bocanegra CRNP [address] [place] [address] 06/13/2025 11:00 AM EDT Cardiac Studies Cardiac Studies, [facility] [address] [place] [address] 07/04/2025 4:00 PM EDT Office Visit Cardiology, [facility] [address] [place] [phone] Bandar Avila MD [address] [place] [address] 08/03/2025 11:00 AM EDT Office Visit Dermatology, [place] [address] [place] [phone] Coco Ivan PA-C [address] [place] [address] [place] [address] Pending Results Name Type Priority Associated Diagnoses Date /Time XR C SPINE 4-5 VIEWS Medical Imaging Routine Cervical pain (neck) MEDICATION USE AGREEMENT 02/16/2025 1:33 PM EDT Scheduled Orders Name Type Priority Associated Diagnoses Orde r Schedule TSH WITH FREE T4 IF INDICATED Lab Routine NAMITA (generalized anxiety disorder) Panic attack Expected: 02/16/2025 (Approximate), Expires: 02/16/2026 Scheduled Procedures Name Priority Associated Diagnoses Date/Ti [...] this encounter Medical Devices Implanted Type Area Oiling Machine Operator Device Identifier Shelf Expiration Date Model / Serial / Lot Cement Antibiotic Bone - [id number] Implanted:Qty: 3 on 04/28/2012 at [place] [facility] [place] Right: Hip VERONICA : ORTH[employer] 11/19/2013 6197-9-010 / / [id number] Prostalac Acetabular Cup Implanted:Qty: 1 on 04/28/2012 at [place] [facility] [place] Right: Hip SUBHA & SUBHA DEPUY 05/19/2017 [id number] / / [id number] Prostalac Hip Stem Size 105mm Std Offset Implanted:Qty: 1 on 04/28/2012 at [place] [facility] [place] Right: Hip SUBHA & SUBHA DEPUY 10/19/2021 1541-01-000 / / [id number] Description:Prostalac Hip St em Size 105mm Offset (Depuy) Ball Artic Wiliam Brn 32 Plus5 - [id number] Implanted:Qty: 1 on 04/28/2012 at [place] [facility] [place] Right: Hip JNJ : [employer] ORTH[employer] 10/19/2016 [id number] / / [id number] Rest Mod Prox Cone Body 23 +11 - [id number] Implanted:Qty: 1 on 04/14/2014 at [place] [facility] [place] Right: Hip VER[employer]ICA : OR[employer] 10/19/2018 6276-1-123 / / [id number] Head Fem 28mm - [id number] Implanted:Qty: 1 on 04/14/2014 at [facility] Right: Hip VER[employer]ICA : OR[employer] 08/19/2018 6570-0-228 / / [id number] Insert 28mm - [id number] Implanted:Qty: 1 on 04/14/2014 at [facility] Right: Hip [employer]ICA : OR[employer] 02/16/2019 1236-2-848 / / [id number] Cable/Sle Beaded D/M 20 Vit - [id number] Implanted:Qty: 1 on 04/14/2014 at [facility] Right: Hip VER[employer]ICA : OR[employer] 10/19/2017 6704-0-520 / / [id number] Cable/Sle Beaded D/M 20 Vit - [id number] Implanted:Qty: 1 on 04/14/2014 at [facility] Right: Hip VER[employer]ICA : OR[employer] 10/19/2017 6704-0-520 / / [id number] Tritanium Revision Acetabular - [id number] Implanted:Qty: 1 on 04/14/2014 at [facility] Right: Hip VER[employer]ICA : OR[employer] 05/19/2018 [id number] / / [id number] Screw Bone Osteolock 24 - [id number] Implanted:Qty: 1 on 04/14/2014 at [place] [facility] [place] Right: Hip VER[employer]ICA : OR[employer] 02/16/2019 5260-5-024 / / [id number] Screw Bone Osteolock 35 - [id number] Implanted:Qty: 1 on 04/14/2014 at [facility] Right: Hip VER[employer]ICA : ORTH[employer] 03/19/2017 5260-5-035 / / [id number] Liner 42mm - [id number] Implanted:Qty: 1 on 04/14/2014 at [facility] Right: Hip VERONICA : ORTH[employer] 11/19/2018 [id number] / / [id number] Hip S Mod Conical Dis 48r731 - [id number] Implanted:Qty: 1 on 04/14/2014 at [facility] Right: Hip [employer]ICA : OR[employer] 12/17/2018 6276-7-017 / / [id number] documented as of this encounter Visit Diagnoses Diagnosis Cervical pain (neck)- Primary Cervicalgia MEDICATION USE AGREEMENT NAMITA (generalized anxiety disorder) Generalized anxiety disorder Panic attack Panic disorder without agoraphobia Type 2 diabetes mellitus with hemoglobin A1c goal of less than 8.0% (HCC) ESRD on dialysis (HCC) End stage renal disease documented in this encounter Advance Directives * [...] and were consensually agreed upon. Care Teams Hooker Inspector Relationship Specialty Start Date End Date Willie Epstein MD [address] [place] [address] PCP - General Family Medicine 11/22/16 documented as of this encounter
--- OUTSIDE RECORDS SUMMARY | 2025-02-24 07:26 | External Medical Summary | Summary of Care ---
Author Name Unknown Organization [facility] Address [address] [place] [address] Phone [phone] Care Team Providers Care Quality Engineer Medical Device Name Role Phone Willie Epstein MD Primary Care Provider + Encounter Details Date Type Department Care Team (Late st Contact Info) Description 02/18/2025 Orders Only PATIENT PORTAL DO NOT DELETE THIS DEPT USED BY [place] [phone] Allergies Active Allergy Reactions Criticality Noted Date Comments Cefazolin Unknown 11/15/2023 Other Reaction(s): CAN'T REMEMBER Methylprednisolone Other (Please comment) 07/28/2017 Side effects c/w med (sweating, heart racing etc) Nitrofurantoin Hives High 03/01/2024 Nitrofurantoin Monohyd Macro Hives 04/04/2014 Pantoprazole Unknown 11/15/2023 Other Reaction(s): CAN'T REMEMBER Sulfa Antibiotics Edema face/lips/tongue High 09/02/2008 documented as of this encounter (statuses as of 02/18/2025) Medications INSULIN SYRINGE-NEEDLE U-100 30G X 1/2" 1 ML MISCIndications:DM type 2, goal A1c below 7 Use as directed 1 Box of 100 11 8 Active RENAL MULTIVITAMIN/ZINC PO TABS None Entered Active ONETOUCH ULTRASOFT LANCETS MISCIndications:Ty pe 2 diabetes mellitus with hemoglobin A1c goal of less than 8.0% ([facility]) Use as directed 2 times a day. 1 Box Dosing Unit 11 7 Active cinacalcet (SENSIPAR) 30 MG Tablet Take 1 Tab by mouth daily with dinner. 90 Tab 3 8 Active Blood Glucose Monitoring Suppl ([employer] ULTRA 2) w/Device KIT Use to check blood sugar 2 times a day; E11.9. 1 Kit 0 Active Glucose Blood (Optimal+TOUCH ULTRA BLUE) STRP Use to check blood [...] needed for Nausea or Vomiting. 5 Active guaiFENesin ER 600 MG Oral [...] AT BEDTIME 90 Tablet 1 5 Active LORazepam 0.5 MG Oral Tablet (Ativan)Indication s:Psychophysiologi geoffrey insomnia Take 1 Tablet by mouth at bedtime as needed for Anxiety or Insomnia. 10 Tablet 5 Active oxyCODONE HCl 15 MG Oral Tablet (Roxicodone)Indica tions:Cervical pain (neck),MEDICATION USE AGREEMENT Take 1 Tablet by mouth every 8 hours as needed for Pain, Severe. 90 Tablet 5 Active PARoxetine HCl 10 MG Oral Tablet (pAXil)Indications :NAMITA (generalized anxiety disorder),Panic attack Take 1 Tablet by mouth in the morning. 30 Tablet 2 5 Active Citalopram Hydrobromide 10 MG Oral Tablet (CeleXA)Indication s:NAMITA (generalized anxiety disorder),Panic attack Take 1 Tablet by mouth in the morning for 14 days. Then stop. Tapering off.. 14 Tablet 5 03/02/20 25 Active documented as of this encounter (statuses as of 02/18/2025) Active Problems Problem Noted Date Diagnosed Date [...] exam 08/04/2019 Overview (03/04/2024): 03/12 EGD [facility]-normal esoph, gastritis. Small hiatal hernia. Gastric 10mm diverticula 01/09 DEXA +osteoporosis. NEED discuss. 11/10 colon +tubular adenomas. 04/09 mult compression fractures. 05/2018 many polyps Therapeutic opioid induced constipation 08/04/20 ESRD on dialysis 09/08/2016 Overview (02/26/2021): 03/05 HCP forms given-wants . NEEDS further Living will 2017 consider transplant needs 20lb -HD [facility]? T,R, S. Since January 2013. Spondylolisthesis [...] as of this encounter (statuses as of 02/18/2025) Resolved Problems Problem Noted Date Diagnosed Date Resolved Date Thoracic compression fracture 04/09/2021 04/13/2021 Overview (04/09/2021): Mult levels 04/09 CT [facility] + lumbar Respiratory symptoms 01/08/2020 021 Fever of unknown origin (FUO) 01/07/2020 02/26/2021 Respiratory infection 01/07/20202020 Cellulitis 06/28/2016 09/08/2016 Abnormal vaginal bleeding 02/12/2016 Cellulitis 02/07/2016 09/08/2016 UTI (urinary tract infection), bacterial 04/19/2014 05/02/2014 Hypotension 04/15/2014 05/02/2014 Compression of lumbar vertebra 02/03/2013 06/07/2021 Overview (04/09/2021): Mult levels noted 04/[address] [facility] [address] also thoracic CKD (chronic kidney disease), [...] s/p B/L stents Sees Dr. 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 [address] [place] [address] 03/29/2025 10:00 AM EDT Office Visit Sleep Disorders Ctr [facility] [address] [place] [phone] Erika Bocanegra CRNP [address] [place] [address] 06/13/2025 11:00 AM EDT Cardiac Studies Cardiac Studies, [facility] [address] [place] [place] [phone] 07/04/2025 4:00 PM EDT Office Visit Cardiology, [facility] [address] [place] [place] [phone] Bandar Avila MD [address] [place] [address] 08/03/2025 11:00 AM EDT [facility] [phone] Coco Ivan PA-C [address] [place] [address] [place] [address] Scheduled Procedures Name Priority Associated Diagnoses Date/Ti [...] this encounter Medical Devices Implanted Type Area Proposal Review Analyst Device Identifier Shelf Expiration Date Model / Serial / Lot Cement Antibiotic Bone - [id number] Implanted:Qty: 3 on 04/28/2012 [place] [facility] [place]: Hip VERONICA : [employer] 11/19/2013 6197-9-010 / / [id number] Prostalac Acetabular Cup Implanted:Qty: 1 on 04/28/2012 at [facility] Right: Hip SUBHA & [employer]HA DEPUY 05/19/2017 1541-42-320 / / [id number] Prostalac Hip Stem Size 105mm Std Offset Implanted:Qty: 1 on 04/28/2012 at [facility] Right: Hip SUBHA & [employer]HA DEPUY 10/19/2021 1541-01-000 / / [id number] Description:Prostalac Hip St em Size 105mm Offset (Depuy) Ball Artic Wiliam Brn 32 Plus5 - [id number] Implanted:Qty: 1 on 04/28/2012 at [place] [facility] [place] Right: Hip JNJ : DE[employer] ORTHOPA[employer] 10/19/2016 [id number] / / [id number] Rest Mod Prox Cone Body 23 +11 - [id number] Implanted:Qty: 1 on 04/14/2014 at [place] [facility] [place] Right: Hip [employer] : [employer] 10/19/2018 6276-1-123 / / [id number] Head Fem 28mm - [id number] Implanted:Qty: 1 on 04/14/2014 at [place] [facility] [place] Right: Hip [employer] : [employer] 08/19/2018 6570-0-228 / / [id number] Insert 28mm - [id number] Implanted:Qty: 1 on 04/14/2014 at [place] [facility] [place] Right: Hip [employer] : [employer] 02/16/2019 1236-2-848 / / [id number] Cable/Sle Beaded D/M 20 Vit - [id number] Implanted:Qty: 1 on 04/14/2014 at [facility] Right: Hip [employer] : [employer] 10/19/2017 6704-0-520 / / [id number] Cable/Sle Beaded D/M 20 Vit - [id number] Implanted:Qty: 1 on 04/14/2014 at [facility] Right: Hip [employer] : [employer] 10/19/2017 6704-0-520 / / [id number] Tritanium Revision Acetabular - [id number] Implanted:Qty: 1 on 04/14/2014 at [place] [facility] [place] Right: Hip [employer] : [employer] 05/19/2018 [id number] / / [id number] Screw Bone Osteolock 24 - [id number] Implanted:Qty: 1 on 04/14/2014 at [place] [facility] [place] Right: Hip [employer] : [employer] 02/16/2019 5260-5-024 / / [id number] Screw Bone Osteolock 35 - [id number] Implanted:Qty: 1 on 04/14/2014 at [place] [facility] [place] Right: Hip [employer] : [employer] 03/19/2017 5260-5-035 / / [id number] Liner 42mm - [id number] Implanted:Qty: 1 on 04/14/2014 at [place] [facility] [place] Right: Hip [employer] : [employer] 11/19/2018 [id number] / / [id number] Hip S Mod Conical Dis 25m207 - [id number] Implanted:Qty: 1 on 04/14/2014 at [place] [facility] [place] Right: Hip [employer] : [employer] 12/17/2018 6276-7-017 / / [id number] documented as of this encounter Advance Directives [...] and were consensually agreed upon. Care Teams Quality Engineer Medical Device Relationship Specialty Start Date End Date Willie Epstein MD [address] [place] [place] [address] PCP - General Family Medicine 11/22/16 documented as of this encounter
--- OUTSIDE RECORDS SUMMARY | 2025-02-24 07:27 | External Medical Summary | Summary of Care ---
Author Name Unknown Organization [facility] Address [address] [place] [address] Phone [phone] Care Team Providers Care Supervisor Refractory Products Name Role Phone Willie Epstein MD Primary Care Provider + Reason for Visit * Reason Comments Outpatient Testing Encounter Details Date Type Department Care Team ([facility] st Contact Info) Description 01/28/2025 11:00 AM EDT Laboratory Laboratory, [facility] [address] [place] [facility] [place] [address] [facility] [address] [place] [address] Dyslipidemia, goal LDL below 70; Encounter for long-term (current) use of medications; Influenzal pneumonia; Malaise and fatigue; SOB (shortness of breath) Allergies Active Allergy Reactions Criticality Noted Date Comments Cefazolin Unknown 11/15/2023 Other Reaction(s): CAN'T REMEMBER Methylprednisolone Other (Please comment) 07/28/2017 Side effects c/w med (sweating, heart racing etc) Nitrofurantoin Hives High 03/01/2024 Nitrofurantoin Monohyd Macro Hives 04/04/2014 Pantoprazole Unknown 11/15/2023 Other Reaction(s): CAN'T REMEMBER Sulfa Antibiotics Edema face/lips/tongue High 09/02/2008 documented as of this encounter (statuses as of 01/28/2025) Medications INSULIN SYRINGE-NEEDLE U-100 30G X 1/2" 1 ML MISCIndications:DM type 2, goal A1c below 7 Use as directed 1 Box of 100 11 10/04/20 08 Active RENAL MULTIVITAMIN/ZINC PO TABS None Entered Active ONETOUCH ULTRASOFT LANCETS MISCIndications:Ty pe 2 diabetes mellitus with hemoglobin A1c goal of less than 8.0% ([facility]) Use as directed 2 times a day. 1 Box Dosing Unit 11 01/17/20 17 Active cinacalcet (SENSIPAR) 30 MG Tablet Take 1 Tab by mouth daily with dinner. 90 Tab 3 11/07/19 18 Active Blood Glucose Monitoring Suppl ([employer] ULTRA 2) w/Device KIT Use to check blood sugar 2 times a day; E11.9. 1 Kit 10/22/19 20 Active Glucose Blood (Slate ScienceTOUCH ULTRA BLUE) STRP Use to check blood [...] LEGS 90 Tablet 3 06/30/20 24 Active Citalopram Hydrobromide 20 MG Oral Tablet (CeleXA) TAKE 1 TABLET BY MOUTH EVERY DAY 90 Tablet 1 07/31/20 24 Active Triamcinolone Acetonide 0.1 % External Ointment (Aristocort)Indica tions:Inverse psoriasis APPLY 2X DAILY DURING WEEK (OFF ON WEEKENDS) TO PSORIASIS UNDER BREASTS UNTIL RESOLVED, THEN WHEN FLARING 454 g 09/06/20 24 Active Simvastatin 20 MG Oral Tablet (Zocor)Indications :Dyslipidemia, goal LDL below 70 TAKE ONE TABLET BY MOUTH ONCE A DAY AT BEDTIME 90 Tablet 10/29/19 25 Active dexAMETHasone 6 MG Oral Tablet (Decadron) [...] for Nausea or Vomiting. 11/04/19 25 Active Trulicity 0.75 MG/0.5ML Subcutaneous Solution Auto-injector (Dulaglutide)Indic ations:Type 2 diabetes mellitus with hemoglobin A1c goal of less than 8.0% ([facility]) INJECT UNDER THE SKIN 0.75 MG ONCE A WEEK 6 mL 1 11/08/19 25 Active guaiFENesin ER 600 MG Oral Tablet Extended Release 12 Hour (Humibid LA) Take 1 Tablet by mouth in the morning and 1 Tablet before bedtime. 12/24/19 25 Active oxyCODONE HCl 5 MG Oral Tablet (Oxy IR)Indications:MED ICATION USE AGREEMENT,Chronic bilateral low back pain, unspecified whether sciatica present Take 1 Tablet by mouth every 6 hours as needed for Pain, Severe for 7 days, THEN 1 Tablet every 8 hours as needed for Pain, Severe for 7 days, THEN 1 Tablet 2 times a day as needed for Pain, Severe for 7 days, THEN 1 Tablet daily as needed for Pain, Severe for up to 7 days. Then stop. This is a taper to help prevent withdrawal.. 70 Tablet 01/06/20 25 025 Active Meloxicam 15 MG Oral TabletIndications: MEDICATION USE AGREEMENT,Chronic bilateral low back pain, unspecified whether sciatica present Take 1 Tablet by mouth in the morning. for pain.. 30 Tablet 01/06/20 25 025 Discontin ued(Medic ation/Dos e Changed) documented as of this encounter (statuses as of 01/28/2025) Active Problems Problem Noted Date Diagnosed Date [...] adult exam 08/04/2019 Overview (03/04/2024): 03/12 EGD [facility]-normal esoph, gastritis. Small hiatal hernia. Gastric 10mm diverticula 01/09 DEXA +osteoporosis. NEED discuss. 11/10 colon +tubular adenomas. 04/09 mult compression fractures. 05/2018 many polyps Therapeutic opioid induced constipation 08/04/20 19 ESRD on dialysis 09/08/2016 Overview (02/26/2021): 03/05 HCP forms given-wants . NEEDS further Living will 2017 consider transplant needs 20lb -[facility]? T,R, S. Since January 2013. Spondylolisthesis [...] as of this encounter (statuses as of 01/28/2025) Resolved Problems Problem Noted Date Diagnosed Date Resolved Date Thoracic compression fracture 04/09/2021 04/13/2021 Overview (04/09/2021): Mult levels 04/09 CT [facility] + lumbar Respiratory symptoms 01/08/2020 021 Fever of unknown origin (FUO) 01/07/2020 02/26/2021 Respiratory infection 01/07/20202020 Cellulitis 06/28/2016 09/08/2016 Abnormal vaginal bleeding 02/12/2016 Cellulitis 02/07/2016 09/08/2016 UTI (urinary tract infection), bacterial 04/19/2014 05/02/2014 Hypotension 04/15/2014 05/02/2014 Compression of lumbar vertebra 02/03/2013 06/07/2021 Overview (04/09/2021): Mult levels noted 04/[address] [facility] [address] also thoracic CKD (chronic [...] 08/25/200909/06 Overview (08/25/2009): Modified 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 joint terminal attack controller current use of ant icoagulant therapy 04/19/2009 [...] s/p B/L stents Sees Dr. 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 Not on file Not [...] Moriah Coughlin RN documented in this encounter Plan of Treatment Upcoming Encounters Date Type Department Care Team (Late st Contact Info) Description 02/10/2025 1:15 PM EDT Imaging Radiology [address] [place] [address] 02/23/2025 12:20 PM EDT Office Visit [facility] [address] [place] [address] Coco Montanez DO [address] [place] [address] 03/22/2025 1:40 PM EDT Office Visit [facility] [address] [place] [address] Willie Epstein MD [address] [place] [address] 03/22/2025 2:40 PM EDT Office Visit Pharmacy, [facility] [address] [place] [address] [facility] [address] [place] [address] 06/13/2025 11:00 AM EDT Cardiac Studies Cardiac Studies, [facility] [address] [place] [phone] 07/04/2025 4:00 PM EDT Office Visit Cardiology, [facility] [address] [place] [id number] Bandar Avila MD [address] [place] [address] 08/03/2025 11:00 AM EDT Office Visit Dermatology, [address] [place] [address] Coco Ivan PA-C [address] [place] [address] [place] [address] Pending Results Name Type Priority Associated Diagnoses Date /Time LIPID PANEL WITH DIRECT LDL IF TG IS HIGH Lab Routine Dyslipidemia, goal LDL below 70 Encounter for long-term (current) use of medications 01/28/2025 10:58 AM EDT BNP, NT-PRO Lab Routine Influenzal pneumonia Malaise and fatigue SOB (shortness of breath) 01/28/2025 10:58 AM EDT Scheduled Procedures Name Priority Associated Diagnoses Date/Ti me COLONOSCOPY FLEXIBLE PROXIMAL DIAGNOSTIC Recall History of colon polyps Health Maintenance Due Date Last Done Comments Cologuard 1999 Fecal Occult Blood Test 1999 Sigmoidoscopy 1999 Zoster Vaccines (1 of 2) 02/02/2004 Adult Wellness Visit 02/02/2020 *BISPHONATE OR OTHER ACCEPTABLE MEDICATION NEEDED FOR [...] this encounter Medical Devices Implanted Type Area Parimutuel Cashier Device Identifier Shelf Expiration Date Model / Serial / Lot Cement Antibiotic Bone - [id number] Implanted:Qty: 3 on 04/28/2012 [place] [facility] [place]: Hip VERONICA : ORTHOPAEDICS 11/19/2013 6197-9-010 / / [id number] Prostalac Acetabular Cup Implanted:Qty: 1 on 04/28/2012 at [place] [facility] Right: Hip SUBHA & SUBHA DEPUY 05/19/2017 [id number] / / [id number] Prostalac Hip Stem Size 105mm Std Offset Implanted:Qty: 1 on 04/28/2012 at [place] [facility] Right: Hip SUBHA & SUBHA DEPUY 10/19/2021 1541-01-000 / / [id number] Description:Prostalac Hip St em Size 105mm Offset (Depuy) Ball Artic Wiliam Brn 32 Plus5 - [id number] Implanted:Qty: 1 on 04/28/2012 at [place] [facility] [place]: Hip JNJ : DEPUY ORTHOPAEDICS 10/19/2016 [id number] / / [id number] Rest Mod Prox Cone Body 23 +11 - [id number] Implanted:Qty: 1 on 04/14/2014 at [facility] Right: Hip VERONICA : ORTHOPAEDICS 10/19/2018 6276-1-123 / / [id number] Head Fem 28mm - [id number] Implanted:Qty: 1 on 04/14/2014 at [facility] Right: Hip VERONICA : ORTHOPAEDICS 08/19/2018 6570-0-228 / / [id number] Insert 28mm - [id number] Implanted:Qty: 1 on 04/14/2014 at [facility] Right: Hip VERONICA : ORTHOPAEDICS 02/16/2019 1236-2-848 / / [id number] Cable/Sle Beaded D/M 20 Vit - [id number] Implanted:Qty: 1 on 04/14/2014 at [facility] Right: Hip VERONICA : ORTHOPAEDICS 10/19/2017 6704-0-520 / / [id number] Cable/Sle Beaded D/M 20 Vit - [id number] Implanted:Qty: 1 on 04/14/2014 at [place] [facility] Right: Hip VERONICA : ORTHOPAEDICS 10/19/2017 6704-0-520 / / [id number] Tritanium Revision Acetabular - [id number] Implanted:Qty: 1 on 04/14/2014 at [facility] Right: Hip VEROINCA : ORTHOPAEDICS 05/19/2018 [id number] / / [id number] Screw Bone Osteolock 24 - [id number] Implanted:Qty: 1 on 04/14/2014 at [facility] Right: Hip VERONICA : ORTHOPAEDICS 02/16/2019 5260-5-024 / / [id number] Screw Bone Osteolock 35 - [id number] Implanted:Qty: 1 on 04/14/2014 at [facility] Right: Hip VERONICA : ORTHOPAEDICS 03/19/2017 5260-5-035 / / [id number] Liner 42mm - [id number] Implanted:Qty: 1 on 04/14/2014 at [place] [facility] [place]: Hip VERONICA : ORTHOPAEDICS 11/19/2018 [id number] / / [id number] Hip S Mod Conical Dis 43s509 - [id number] Implanted:Qty: 1 on 04/14/2014 at [place] [facility] Right: Hip VERONICA : ORTHOPAEDICS 12/17/2018 6276-7-017 / / [id number] documented as of this encounter Procedures Procedure Name Priority Date/Time Associated Diagnosis Comments DIFFERENTIAL, AUTOMATED Routine 01/28/2025 10:58 AM EDT Influenzal pneumonia Malaise and fatigue SOB (shortness of breath) COMPREHENSIVE METABOLIC PANEL Routine 01/28/2025 10:58 AM EDT Influenzal pneumonia Malaise and fatigue SOB (shortness of breath) CBC Routine 01/28/2025 10:58 AM EDT Influenzal pneumonia Malaise and fatigue SOB (shortness of breath) CBC Routine 01/28/2025 10:58 AM EDT Influenzal pneumonia Malaise and fatigue SOB (shortness of breath) documented in this encounter Results * (ABNORMAL) DIFFERENTIAL, AUTOMATED (01/28/2025 10:58 AM EDT) WBC 6.41 4.00 - 10.80 K/uL 01/28/2025 11:31 AM EDT [facility]10 Neutrophils % 70.5 40.0 - 75.0 % 01/28/2025 11:31 AM EDT [facility] 57-10 Lymphocytes % 17.9(L) 18.0 - 42.0 % 01/28/2025 11:31 AM EDT [facility] 57-10 Monocytes % 7.8 1.0 - 11.0 % 01/28/2025 11:31 AM EDT [facility] 57-10 Eosinophils % 3.3 0.0 - 6.0 % 01/28/2025 11:31 AM EDT [facility] 57-10 Basophils % 0.5 0.0 - 2.0 % 01/28/2025 11:31 AM EDT [facility] 57-10 Absolute Neutrophils 4.52 1.80 - 7.70 K/uL 01/28/2025 11:31 AM EDT [facility] 57-10 Absolute Lymphocytes 1.15 1.00 - 4.80 K/ul 01/28/2025 11:31 AM EDT [facility] 57-10 Absolute Monocytes 0.50 0.00 - 1.10 K/uL 01/28/2025 11:31 AM EDT [facility] 57-10 Absolute Eosinophils 0.21 0.00 - 0.70 K/uL 01/28/2025 11:31 AM EDT [facility] 57-10 Absolute Basophils 0.03 0.00 - 0.20 K/uL 01/28/2025 11:31 AM EDT [facility] 57-10 Blood Venous blood specimen / Unknown Venipuncture / Unknown 01/28/2025 10:58 AM EDT 01/28/2025 10:58 AM EDT Coco Montanez DO LAB BLOOD ORDERABLES Final Result [facility] 57-10 [address] [place] [address] * (ABNORMAL) CBC (01/28/2025 10:58 AM EDT) WBC 6.41 4.00 - 10.80 K/uL 01/28/2025 11:31 AM EDT [facility] RBC 3.39 3.85 - 5.15 M/uL 01/28/2025 11:31 AM EDT [facility]10 HGB 10.9(L) 12.0 - 15.3 g/dL 01/28/2025 11:31 AM EDT [facility] 57-10 HCT 35.3(L) 36.0 - 45.2 % 01/28/2025 11:31 AM EDT [facility]10 MCV 104.1 81.5 - 97.5 fL 01/28/2025 11:31 AM EDT [facility] 57-10 MCH 32.2 27.0 - 34.0 pg 01/28/2025 11:31 AM EDT [facility] 57-10 MCHC 30.9 32.0 - 36.0 g/dL 01/28/2025 11:31 AM EDT [facility] 57-10 RDW 15.9 11.5 - 15.5 % 01/28/2025 11:31 AM EDT [facility] 57-10 PLT 197 140 - 400 K/uL 01/28/2025 11:31 AM EDT [facility] 5710 MPV 10.2 6.6 - 11.1 fL 01/28/2025 11:31 AM EDT [facility] 57-10 Blood Venous blood specimen / Unknown Venipuncture / Unknown 01/28/2025 10:58 AM EDT 01/28/2025 10:58 AM EDT us Coco Montanez DO LAB BLOOD ORDERABLES Final Result [facility] [address] [place] [address] * (ABNORMAL) COMPREHENSIVE METABOLIC PANEL (01/28/2025 10:58 AM EDT) BUN 40(H) 6 - 20 mg/dL 01/28/2025 12:48 PM EDT [facility] 57- CREATININE 3.4(H) 0.5 - 1.0 mg/dL 01/28/2025 12:48 PM EDT [facility] 57-10 EGFR 14(L) >=60 mL/min 01/28/2025 12:48 PM EDT [facility] 57-10 Comment:eGFR is calculated b ased on the CKD-EPI 2020 equation. SODIUM 139 135 - 146 mmol/L 01/28/2025 12:48 PM EDT [facility] 57-10 POTASSIUM 3.9 3.5 - 5.1 mmol/L 01/28/2025 12:48 PM EDT [facility] 57-10 CHLORIDE 94(L) 98 - 107 mmol/L 01/28/2025 12:48 PM EDT [facility] 57-10 CO2 30 22 - 32 mmol/L 01/28/2025 12:48 PM EDT [facility]10 ANION GAP 15 7 - 15 mmol/L 01/28/2025 12:48 PM EDT [facility] 57-10 GLUCOSE 119 70 - 120 mg/dL 01/28/2025 12:48 PM EDT [facility] 57-10 Albumin 3.8 3.8 - 5.0 g/dL 01/28/2025 12:48 PM EDT [facility] 57-10 AST 19 10 - 35 U/L 01/28/2025 12:48 PM EDT [facility] 57-10 Alkaline Phosphatase 131(H) 35 - 130 U/L 01/28/2025 12:48 PM EDT [facility] 57-10 Bilirubin, Total 0.5 <=1.2 mg/dL 01/28/2025 12:48 PM EDT [facility] 57-10 CALCIUM 8.7 8.4 - 10.2 mg/dL 01/28/2025 12:48 PM EDT [facility] 57-10 Protein 7.1 6.0 - 8.3 g/dL 01/28/2025 12:48 PM EDT [facility] 57-10 ALT 15 10 - 35 U/L 01/28/2025 12:48 PM EDT [facility] 57-10 Blood Venous blood specimen / Unknown Venipuncture / Unknown 01/28/2025 10:58 AM EDT 01/28/2025 10:58 AM EDT Coco Montanez DO LAB BLOOD ORDERABLES Final Result [facility] [place] [address] documented in this encounter Visit Diagnoses Diagnosis Dyslipidemia, goal LDL below 70 Other and unspecified hyperlipidemia Encounter for long-term (current) use of medications Encounter for long-term (current) use of other medications Influenzal pneumonia Influenza with pneumonia Malaise and fatigue Other malaise and fatigue SOB (shortness of breath) Shortness of breath documented in this encounter Advance Directives * [...] were consensually agreed upon. Care Teams Supervisor Refractory Products Relationship Specialty Start Date End Date Willie Epstein MD [address] [place] [address] PCP - General Family Medicine 11/22/16 documented as of this encounter
--- OUTSIDE RECORDS SUMMARY | 2025-02-24 07:27 | External Medical Summary | Summary of Care ---
Author Name Unknown Organization [facility] Address [address] [place] [address] Phone [phone] Care Team Providers Care Associate Professor Of Communication Name Role Phone Willie Epstein MD Primary Care Provider + Reason for Visit * Reason Comments Dosage Adjustment In Person (Anticoag Cl inic) Pain Encounter Details Date Type Department Care Team ([facility] st Contact Info) Description 01/28/2025 11:40 AM EDT Office Visit Pharmacy, [facility] [address] [place] [address] [facility] [address] [place] [address] Type 2 diabetes mellitus with ESRD (end-stage renal disease) ([facility])*; Spondylolisthesis of lumbosacral region Allergies Active Allergy Reactions Criticality Noted Date [...] A1c goal of less than 8.0% ([facility]) Use as directed 2 times a day. 1 Box Dosing Unit 11 01/17/20 17 Active cinacalcet (SENSIPAR) 30 MG Tablet Take 1 Tab by mouth daily with dinner. 90 Tab 3 11/07/19 18 Active Blood Glucose Monitoring Suppl (SaludFÁCIL ULTRA 2) w/Device KIT Use to check blood sugar 2 times a day; E11.9. 1 Kit 10/22/19 20 Active Glucose Blood (Think SkyTOUCH ULTRA BLUE) STRP Use to check blood [...] withdrawal.. 70 Tablet 01/06/20 25 025 Active Celecoxib 200 MG Oral Capsule (CeleBREX) Take 1 Capsule by mouth in the morning and 1 Capsule before bedtime. 60 Capsule 5 01/29/20 25 Active Meloxicam 15 MG Oral TabletIndications: MEDICATION [...] adult exam 08/04/2019 Overview (03/04/2024): 03/12 EGD [facility]-normal esoph, gastritis. Small hiatal hernia. Gastric 10mm diverticula 01/09 DEXA +osteoporosis. NEED discuss. 11/10 colon +tubular adenomas. 04/09 mult compression fractures. 05/2018 many polyps Therapeutic opioid induced constipation 08/04/20 19 ESRD on dialysis 09/08/2016 Overview (02/26/2021): 03/05 HCP forms given-wants . NEEDS further Living will 2017 consider transplant needs 20lb -[facility]? T,R, S. Since January 2013. Spondylolisthesis [...] 04/13/2021 Overview (04/09/2021): Mult levels 04/09 CT [facility] + lumbar Respiratory symptoms 01/08/2020 021 Fever of unknown origin (FUO) 01/07/2020 02/26/2021 Respiratory infection 01/07/20202020 Cellulitis 06/28/2016 09/08/2016 Abnormal vaginal bleeding 02/12/2016 Cellulitis 02/07/2016 09/08/2016 UTI (urinary tract infection), bacterial 04/19/2014 05/02/2014 Hypotension 04/15/2014 05/02/2014 Compression of lumbar vertebra 02/03/2013 06/07/2021 Overview (04/09/2021): Mult levels noted 04/09 [facility] CT also thoracic CKD (chronic kidney disease), [...] 08/25/200909/06 Overview (08/25/2009): Modified 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 (5 years old or older) Answer Date of Assessment Author No 01/07/2020 6:50 PM Moriah Harris, RN * Because of a physical, mental, [...] this encounter Progress Notes * Arlene Elise, [facility] - 01/28/2025 11:17 AM EDT Images from the original note were not included. Medication Therapy Disease Management - Chronic Pain History of Presenting Illness This visit occurred in person. Meka Hess, identified by name and date of , is a 69 year old female presents to the [facility] for initial visit. Chief Complaint Patient presents with Dosage Adjustment In Person (Anticoag Clinic) Pain History Past Medications SA Opioids: Oxycodone LA Opioids: Butrans Current Pain Medications Meloxicam 15 mg daily Gabapentin 100 mg daily plus 100 mg after dialysis *citalopram Interval History Notes pain is worse Notes now the back is bothering her Notes not a surgical candidate for rotator cuffs Notes she would like to be back on oxycodone Notes she felt like the oxycodone provided some relief Comorbidities Renal: Dialysis MWF Activity/Exercise Limited, uses a walker Functional Goal(s) QOL PDMP Reviewed (01/28/2025): I have reviewed the patient's controlled substance dispensing history in the Prescription Drug Monitoring Program in compliance with the [facility] regulations. History of Presenting Illness & Review [...] DRUG PANEL, URINE W/ INTERPRETATION Result Value Pain Management Interpretation Based on the medication information provided: The positive oxycodone screening result is CONSISTENT with oxycodone use. Confirmatory testing is available upon request. Amphetamines Screen, U Negative Benzodiazepines Screen, U Negative Cannabinoids Screen, U Negative Cocaine Metabolite Screen, U Negative Fentanyl Screen, U Negative Hydrocodone Screen, U Negative Methadone Metabolite Screen, U Negative Morphine/Codeine Screen, U Negative Oxycodone Screen, U Positive (A) Specimen Validity Interpretation Normal Creatinine, U 25 Narrative Cutoff [...] results for input(s): "ALT" in the last 99377 hours. Comprehensive Metabolic Panel Results: Results for [...] patient is: Adherent to regimen. Treatment Options Patient notes last day of oxycodone yesterday, states pain is increasingly worse, would like to return to oxycodone at higher dose, will discuss with pcp Recommending to rotate meloxicam to celebrex, as notes meloxicam has not been helpful Treatment Concerns Tolerance with opioid Dialysis considerations Education Provided Patient educated on mechanism, time to efficacy and potential adverse effects of medication regimen Discussed a drug holiday, and rationale behind that Recommendations STOP: meloxicam START: Celebrex 200 mg BID Meka verbalized understanding of the plan. Contact clinic with any issues. Visit date not found I spent a total of 20-29 (25 minutes) on the date of service in preparation, delivery, and documentation of the care provided to Meka Hess excluding any time spent in the performance of separately billed services or time spent by another provider/QHP. Arlene Elise [facility] Clinical Pharmacist - Chicken Vaccinator Medication Therapy Management Clinic 01/28/2025 - 11:17 AM documented in this encounter Plan of Treatment Upcoming Encounters Date Type Department Care Team (Late st Contact Info) Description 02/10/2025 1:15 PM EDT Imaging Radiology [address] [place] [address] 02/23/2025 12:20 PM EDT Office Visit [address] [place] [address] Coco Montanez DO [address] [place] [address] 03/22/2025 1:40 PM EDT Office Visit Family Practice [facility] [address] [place] [place] [address] Willie Epstein MD [address] [place] [address] 03/22/2025 2:40 PM EDT Office Visit Pharmacy, [facility] [address] [place] [address] [facility] [address] [place] [address] 06/13/2025 11:00 AM EDT Cardiac Studies Cardiac Studies, [facility] [address] [place] [address] 07/04/2025 4:00 PM EDT Office Visit Cardiology, [facility] [address] [place] [phone] Bandar Avila MD [address] [place] [address] 08/03/2025 11:00 AM EDT [facility] [address] [facility] [place] [address] Coco Ivan PA-C [address] [place] [address] [place] [address] Scheduled Procedures Name Priority Associated Diagnoses Date/Ti [...] this encounter Medical Devices Implanted Type Area Esters And Emulsifiers Supervisor Device Identifier Shelf Expiration Date Model / Serial / Lot Cement Antibiotic Bone - [id number] [place] 3 [place] [facility] [place] VERONICA : ORTHOPAEDICS 11/19/2013 6197-9-010 / / [id number] Prostalac Acetabular Cup Implanted:Qty: 1 on 04/28/2012 at [facility] Right: Hip SUBHA & SUBHA DEPUY 05/19/2017 1541-42-320 / / [id number] Prostalac Hip Stem Size 105mm Std Offset Implanted:Qty: 1 on 04/28/2012 at [facility] Right: Hip SUBHA & SUBHA DEPUY 10/19/2021 1541-01-000 / / [id number] Description:Prostalac Hip St em Size 105mm Offset (Depuy) Ball Artic Wiliam Brn 32 Plus5 - [id number] Implanted:Qty: 1 [place]2012 [place] [facility] [place] Hip JNJ : DEPUY ORTHOPAEDICS 10/19/2016 [id number] / / [id number] Rest Mod Prox Cone Body 23 +11 - [id number] Implanted:Qty: 1 on 04/14/2014 at [facility] Right: Hip VERONICA : ORTHOPAEDICS 10/19/2018 6276-1-123 / / [id number] Head Fem 28mm - [id number] Implanted:Qty: 1 on 04/14/2014 [place] [facility] [place] Hip VERONICA : ORTHOPAEDICS 08/19/2018 6570-0-228 / / [id number] Insert 28mm - [id number] Implanted:Qty: 1 on 04/14/2014 at [facility] Right: Hip VERONICA : ORTHOPAEDICS 02/16/2019 1236-2-848 / / [id number] Cable/Sle Beaded D/M 20 Vit - [id number] Implanted:Qty: 1 on 04/14/2014 at [facility] Right: Hip VERONICA : ORTHOPAEDICS 10/19/2017 6704-0-520 / / [id number] Cable/Sle Beaded D/M 20 Vit - [id number] Implanted:Qty: 1 [place]14/2014 [place] [facility] [place] Hip VERONICA : ORTHOPAEDICS 10/19/2017 6704-0-520 / / [id number] Tritanium Revision Acetabular - [id number] Implanted:Qty: 1 on 04/14/2014 at [facility] Right: Hip VERONICA : ORTHOPAEDICS 05/19/2018 509-02-56E / / [id number] Screw Bone Osteolock 24 - [id number] Implanted:Qty: 1 on 04/14/2014 at [facility] Right: Hip VERONICA : ORTHOPAEDICS 02/16/2019 5260-5-024 / / [id number] Screw Bone Osteolock 35 - [id number] Implanted:Qty: 1 on 04/14/2014 at [facility] Right: Hip VERONICA : ORTHOPAEDICS 03/19/2017 5260-5-035 / / [id number] Liner 42mm - [id number] Implanted:Qty: 1 [place]/14/2014 [place] [facility] [place] Hip VERONICA : ORTHOPAEDICS 11/19/2018 626-00-42E / / [id number] Hip S Mod Conical Dis 77f228 - [id number] Implanted:Qty: 1 on 04/14/2014 [place] [facility] [place] Hip VERONICA : ORTHOPAEDICS 12/17/2018 6276-7-017 / / [id number] documented as of this encounter Visit Diagnoses Diagnosis Type 2 diabetes mellitus with ESRD (end-stage renal disease) (HCC)- Primary Type II or unspecified type diabetes mellitus with renal manifestations, not stated as uncontrolled Spondylolisthesis of lumbosacral region Acquired spondylolisthesis documented in this encounter Advance Directives * [...] and were consensually agreed upon. Care Teams Associate Professor Of Communication Relationship Specialty Start Date End Date Willie Epstein MD [address] [place] [address] PCP - General Family Medicine 11/22/16 documented as of this encounter
--- OUTSIDE RECORDS SUMMARY | 2025-02-24 07:27 | External Medical Summary ---
Author Name Unknown Address Unknown Organization K01:[facility] [place] [address] [place] [address] Laboratory Report Ordering Provider Test Date Status KAMARI HANKINS 01/28/2025 10:58:15 Final Exclude Heart Failure: <300 pg/mL
Diagnose Heart Failure:
Age <50 yr: >450 pg/mL
50-75 yr: >900 pg/mL
>75 yr: >1800 pg/mL
GFR is 30-59 mL/min: >1200 pg/mL or Age- adjusted values
GFR <30 mL/min: do not use, not reliable

Prognostic threshold: 1000 pg/mL Observation Date Value Abnormality Reference (Units ) Status BNP, Pro-hormone 01/28/2025 10:58:15 [address] Above high no rmal <300 (pg/mL) Final Performing Location [facility] [place] [facility] [address] [place] [address]
--- OUTSIDE RECORDS SUMMARY | 2025-02-24 07:27 | External Medical Summary | Summary of Care ---
Author Name Unknown Organization [facility] Address [address] [place] [address] Phone [phone] Care Team Providers Care Procurement Engineer Name Role Phone Willie Epstein MD Primary Care Provider + Encounter Details Date Type Department Care Team (Late st Contact Info) Description 01/28/2025 Orders Only Family Practice [facility] [address] [facility] [place] [address] Coco Montanez, [address] [place] [address] Anemia, unspecified type* Allergies Active Allergy Reactions Criticality Noted Date [...] RENAL MULTIVITAMIN/ZINC PO TABS None Entered Active Waste RemediesTOUCH ULTRASOFT LANCETS MISCIndications:Ty pe 2 diabetes mellitus with hemoglobin A1c goal of less than 8.0% ([facility]) Use as directed 2 times a day. 1 Box Dosing Unit 11 7 Active cinacalcet (SENSIPAR) 30 MG Tablet Take 1 Tab by mouth daily with dinner. 90 Tab 3 8 Active Blood Glucose Monitoring Suppl ([place] ULTRA 2) w/Device KIT Use to check blood sugar 2 times a day; E11.9. 1 Kit 0 Active Glucose Blood (BreconRidgeUCH ULTRA BLUE) STRP Use to check blood [...] RESTLESS LEGS 90 Tablet 3 4 Active Citalopram Hydrobromide 20 MG Oral Tablet (CeleXA) TAKE 1 TABLET BY MOUTH EVERY DAY 90 Tablet 1 4 Active Triamcinolone Acetonide 0.1 % External Ointment (Aristocort)Indica tions:Inverse psoriasis APPLY 2X DAILY DURING WEEK (OFF ON WEEKENDS) TO PSORIASIS UNDER BREASTS UNTIL RESOLVED, THEN WHEN FLARING 454 g 4 Active Simvastatin 20 MG Oral Tablet (Zocor)Indications :Dyslipidemia, goal LDL below 70 TAKE ONE TABLET BY MOUTH ONCE A DAY AT BEDTIME 90 Tablet 5 Active dexAMETHasone 6 MG Oral Tablet (Decadron) [...] and 1 Tablet before bedtime. 5 Active oxyCODONE HCl 5 MG Oral Tablet [...] taper to help prevent withdrawal.. 70 Tablet 5 02/03/20 25 Active Celecoxib 200 MG Oral Capsule (CeleBREX) Take 1 Capsule by mouth in the morning and 1 Capsule before bedtime. 60 Capsule 5 5 Active documented as of this encounter [...] exam 08/04/2019 Overview (03/04/2024): 03/12 EGD [facility]-normal esoph, gastritis. Small hiatal hernia. Gastric 10mm diverticula 01/09 DEXA +osteoporosis. NEED discuss. 11/10 colon +tubular adenomas. 04/09 mult compression fractures. 05/2018 many polyps Therapeutic opioid induced constipation 08/04/20 19 ESRD on dialysis 09/08/2016 Overview (02/26/2021): 03/05 HCP forms given-wants . NEEDS further Living will 2017 consider transplant needs 20lb -HD [facility]? T,R, S. Since January 2013. Spondylolisthesis [...] Overview (04/09/2021): Mult levels 04/09 CT [facility] + lumbar Respiratory symptoms 01/08/2020 021 Fever of unknown origin (FUO) 01/07/2020 02/26/2021 Respiratory infection 01/07/20202020 Cellulitis 06/28/2016 09/08/2016 Abnormal vaginal bleeding 02/12/2016 Cellulitis 02/07/2016 09/08/2016 UTI (urinary tract infection), bacterial 04/19/2014 05/02/2014 Hypotension 04/15/2014 05/02/2014 Compression of lumbar vertebra 02/03/2013 06/07/2021 Overview (04/09/2021): Mult levels noted 04/[address] [facility] [address] also thoracic CKD (chronic kidney [...] 08/25/200909/06 Overview (08/25/2009): Modified 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 prison current use [...] s/p B/L stents Sees Dr. 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 [employer] Not on file Not on file [...] Description 02/10/2025 1:15 PM EDT Imaging Radiology [address] [place] [address] 02/23/2025 12:20 PM EDT Office Visit [facility] [address] [place] [address] Coco Montanez DO [address] [place] [address] 03/22/2025 1:40 PM EDT Office Visit [facility] [address] [place] [address] Willie Epstein MD [address] [place] [address] 03/22/2025 2:40 PM EDT Office Visit Pharmacy, [facility] [address] [facility] [place] [address] [facility] [address] [place] [address] 06/13/2025 11:00 AM EDT Cardiac Studies Cardiac Studies, [facility] [address] [place] [phone] 07/04/2025 4:00 PM EDT Office Visit Cardiology, [facility] [address] [place] [address] Bandar Avila MD [address] [place] [place] [place] [address] 08/03/2025 11:00 AM EDT Office [facility] [address] [place] [phone] Coco Ivan PA-C [address] [place] [address] [place] [address] Pending Results Name Type Priority Associated Diagnoses Date /Time IRON SCREEN, INCLUDING TIBC Lab Routine Anemia, unspecified type 01/28/2025 10:58 AM EDT Scheduled Procedures Name [...] this encounter Medical Devices Implanted Type Area Microsoft Developer Device Identifier Shelf Expiration Date Model / Serial / Lot Cement Antibiotic Bone - [id number] Implanted:Qty: 3 on 04/28/2012 [place] [facility] [place] Hip VERONICA : ORTHOPAEDICS 11/19/2013 6197-9-010 / / [id number] Prostalac Acetabular Cup Implanted:Qty: 1 on 04/28/2012 [place] [facility] [place]: Hip SUBHA & SUBHA DEPUY 05/19/2017 1541-42-320 / / [id number] Prostalac Hip Stem Size 105mm Std Offset Implanted:Qty: 1 on 04/28/2012 [place] [facility] [place]: Hip SUBHA & SUBHA DEPUY 10/19/2021 1541-01-000 / / [id number] Description:Prostalac Hip St em Size 105mm Offset (Depuy) Ball Artic Wiliam Brn 32 Plus5 - [id number] Implanted:Qty: 1 on 04/28/2012 [place] [facility] [place]: Hip JNJ : DEPUY ORTHOPAEDICS 10/19/2016 [id number] / / [id number] Rest Mod Prox Cone Body 23 +11 - [id number] Implanted:Qty: 1 on 04/14/2014 [place] [facility] [place]: Hip VERONICA : ORTHOPAEDICS 10/19/2018 6276-1-123 / / [id number] Head Fem 28mm - [id number] Implanted:Qty: 1 on 04/14/2014 [place] [facility] [place]: Hip VERONICA : ORTHOPAEDICS 08/19/2018 6570-0-228 / / [id number] Insert 28mm - [id number] Implanted:Qty: 1 on 04/14/2014 at [facility] Right: Hip VERONICA : ORTHOPAEDICS 02/16/2019 1236-2-848 / / [id number] Cable/Sle Beaded D/M 20 Vit - [id number] Implanted:Qty: 1 on 04/14/2014 at [facility] Right: Hip VERONICA : ORTHOPAEDICS 10/19/2017 6704-0-520 / / [id number] Cable/Sle Beaded D/M 20 Vit - [id number] Implanted:Qty: 1 on 04/14/2014 at [facility] Right: Hip VERONICA : ORTHOPAEDICS 10/19/2017 6704-0-520 / / [id number] Tritanium Revision Acetabular - [id number] Implanted:Qty: 1 on 04/14/2014 at [facility] Right: Hip VERONICA : ORTHOPAEDICS 05/19/2018 509-02-56E / / [id number] Screw Bone Osteolock 24 - [id number] Implanted:Qty: 1 on 04/14/2014 at [facility] Right: Hip VERONICA : ORTHOPAEDICS 02/16/2019 5260-5-024 / / [id number] Screw Bone Osteolock 35 - [id number] Implanted:Qty: 1 on 04/14/2014 at [facility] Right: Hip VERONICA : ORTHOPAEDICS 03/19/2017 5260-5-035 / / [id number] Liner 42mm - [id number] Implanted:Qty: 1 on 04/14/2014 at [facility] Right: Hip VERONICA : ORTHOPAEDICS 11/19/2018 626-00-42E / / [id number] Hip S Mod Conical Dis 94y119 - [id number] Implanted:Qty: 1 on 04/14/2014 at [facility] Right: Hip VERONICA : ORTHOPAEDICS 12/17/2018 6276-7-017 / / [id number] documented as of this encounter Visit Diagnoses Diagnosis Anemia, unspecified type- Primary documented in this encounter Advance Directives * [...] and were consensually agreed upon. Care Teams Procurement Engineer Relationship Specialty Start Date End Date Willie Epstein MD [address] [place] [address] PCP - General Family Medicine 11/22/16 documented as of this encounter
--- OUTSIDE RECORDS SUMMARY | 2025-02-24 07:27 | External Medical Summary | Summary of Care ---
Author Name Unknown Organization [facility] Address [address] [place] [address] Phone [phone] Care Team Providers Care Tub Tender Name Role Phone Willie Epstein MD Primary Care Provider + Encounter Details Date Type Department Care Team (Late st Contact Info) Description 02/10/2025 Telephone Nephrology [address] [place] [phone] Danette Perez MD [address] [place] [phone] Allergies Active Allergy Reactions Criticality Noted Date [...] goal of less than 8.0% ([facility]) Use as directed 2 times a day. 1 Box Dosing Unit 11 7 Active cinacalcet (SENSIPAR) 30 MG Tablet Take 1 Tab by mouth daily with dinner. 90 Tab 3 8 Active Blood Glucose Monitoring Suppl (BioAxone Therapeutic ULTRA 2) w/Device KIT Use to check blood sugar 2 times a day; E11.9. 1 Kit 0 Active Glucose Blood (GaleneaTOUCH ULTRA BLUE) STRP Use to check blood [...] EVERY DAY 90 Tablet 1 5 Active documented as of this encounter [...] adult exam 08/04/2019 Overview (03/04/2024): 03/12 EGD [facility]-normal esoph, gastritis. Small hiatal hernia. Gastric 10mm diverticula 01/09 DEXA +osteoporosis. NEED discuss. 11/10 colon +tubular adenomas. 04/09 mult compression fractures. 05/2018 many polyps Therapeutic opioid induced constipation 08/04/20 19 ESRD on dialysis 09/08/2016 Overview (02/26/2021): 03/05 HCP forms given-wants . NEEDS further Living will 2017 consider transplant needs 20lb -HD [place] [facility]? T,R, S. Since January 2013. Spondylolisthesis [...] 04/13/2021 Overview (04/09/2021): Mult levels 04/09 CT [facility] + lumbar Respiratory symptoms 01/08/2020 021 Fever of unknown origin (FUO) 01/07/2020 02/26/2021 Respiratory infection 01/07/20202020 Cellulitis 06/28/2016 09/08/2016 Abnormal vaginal bleeding 02/12/2016 Cellulitis 02/07/2016 09/08/2016 UTI (urinary tract infection), bacterial 04/19/2014 05/02/2014 Hypotension 04/15/2014 05/02/2014 Compression of lumbar vertebra 02/03/2013 06/07/2021 Overview (04/09/2021): Mult levels noted 04/[address] [facility] [address] also thoracic CKD (chronic kidney [...] mRNA, LNP-s, No Pre serve, 2-Dose Series ([employer]) 09/11/2021,01/02/2021,12/12/2020 COVID-19, mRNA, LNP-s, PF, B ooster, [...] 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 * Telephone Encounter - Chelsea Forte OSA - 02/10/2025 11:41 AM EDT Patient is scheduled for tomorrow (02/11) at 11am with Dr Epstein- * Telephone Encounter - Rasheeda Bermudez OSA - 02/10/2025 11:00 AM EDT LVM for patient to call and reschedule with Dr. Epsteni. * Telephone Encounter - Willie Epstein MD - 02/10/2025 10:55 AM EDT Ok to use hospital slot or ER or private slot with me-had hosp stay. Very complex patient. * Telephone Encounter - Coco Montanez DO - 02/10/2025 10:38 AM EDT Although I have seen her one time recently for hospital discharge on 01/03 I believe she should see her PCP for follow up. Please cancel my upcoming appt with patient on 02/23 and change to PCP for an appt this week or next. Based on complexity and issues that need addressed - see note from her Email Marketing Manager - an appt will need to be made in this time frame with PCP Thank you * Telephone Encounter - Danette Perez MD - 02/10/2025 8:51 AM EDT RECENT CLINICAL COURSE -late 2022 restless leg syndrome > referred for sleep study showing needs auto BiPAP but missed f/u w/ sleep med; on ropinirole for RLS Pain Mgt -[facility] ER acute opioid withdrawal > ran out after taking extra for foot pain -July 2024 [facility] > ongoing heel pain, oxy not always treating fully; plans MTDM for pain -Oct 2024 [facility] > intake visit; plan butran patch and wean oxy -mid Oct 2024 [facility] Obs Covid then N/V from remdesivir and readmitted -Nov 2024 tearful anxious at dialysis > seriously considered withdrawing from care (completely unlike her); anxiety assessment done by painting and coating worker (SW) shows severe anxiety and forwarded to PCP; advised f/u w/ PCP who recommended [facility] therapist; pt lives in [place] so did not pursue this -admitted early December [facility] w/ sepsis/acute respiratory failure from influenza A pneumonia; saw Dr Montanez in f/u -mid December starts meloxicam for pain from PCP -mid January > I worked w/ sleep med to get back in for MINDI eval as part of RLS treatment > scheduled 03/29/25 -ongoing restlessness/ anxiety since November and more since early December > on 02/05/25 left dialysis early b/c of sx (completely unlike her; 1st time in 12 years on HD); dialysis SW repeating anxiety assessment today (shows moderate anxiety) and providing list of therapists in [place] and looking to see which accept pt insurance; dialysis nurses working hard at repositioning, redirecting; pt tearful today at times, tells me she hasn't slept in 4 days; 02 sats 95% here and in 90s at home; not using 02 at night and advised her to use for now; poor sleep d/t anxiety and diffuse pain -pain issues: she has no oxycodone at home currently; last used end of December; -01/28/25 started celebrex instead of meloxicam (neither working) -fell 02/05/25 at home in evening > tripped on pajama leg; since then T spine pain radiating to Rribs; did state has had similar pain in past/before fall but back now -for CXR today to f/u PNA; I added T spine Xray to this -weight loss - weighed 79.5 kg 01/2024; 76 kg 08/19/24, 70.5 kg today (started trulicity Oct 2024) RECOMMEND FORTY minute appt if at all possible with physician to look at medications/overall current status >>is she having augmentation effects from ropinirole? >>NOT advised to use NSAIDS as anything more than a bridge and she's coming up on 6 wks on this >> pls change >>are we sure opioid like hydromorphone or other +/- gabapentinoids not an option here (see Up To Date for example on pain mgt in CKD/ESRD - opiates are standard of care usually) ->is citalopram dose ok/ been looked at given anxiety? >> is trulicity best DM med for her (per UTD use w/ caution in ESRD; I can't find studies where it's been tested in ESRD patients on quick search) -has appts to see Dr Montanez 02/[address] Epstein 03/11 [facility] Practice Docs and sleep med, [facility] documented in this encounter Plan of Treatment Upcoming Encounters Date Type Department Care Team (Late st Contact Info) Description 02/11/2025 11:00 AM EDT Office Visit [facility] [address] [place] [address] Willie Epstein MD [address] [place] [address] 02/23/2025 12:20 PM EDT Office Visit [facility] [address] [place] [address] Coco Montanez DO [address] [place] [address] 03/11/2025 10:00 AM EDT Office Visit [facility] [address] [place] [address] Willie Epstein MD [address] [place] [address] 03/22/2025 2:40 PM EDT Office Visit Pharmacy, [facility] [address] [place] [address] [facility] [address] [place] [address] 03/29/2025 10:00 AM EDT Office Visit [facility] [address] [place] [phone] Erika Bocanegra CRNP [address] [place] [address] 06/13/2025 11:00 AM EDT Cardiac Studies Cardiac Studies, [facility] [address] [place] [place] [phone] 07/04/2025 4:00 PM EDT Office Visit Cardiology, [facility] [address] [place] [place] [phone] Bandar Avila MD [address] [place] [address] 08/03/2025 11:00 AM EDT [facility] [address] [facility] [place] [phone] Coco Ivan PA-C [address] [place] [address] [place] [address] Pending Results Name Type Priority Associated Diagnoses Date /Time XR T SPINE 2 VIEWS Medical Imaging Routine History of fall 02/10/2025 1:13 PM EDT Scheduled Procedures Name Priority Associated Diagnoses [...] this encounter Medical Devices Implanted Type Area Barn Hand Device Identifier Shelf Expiration Date Model / Serial / Lot Cement Antibiotic Bone - [id number] Implanted:Qty: 3 on 04/28/2012 at [place] [facility] Right: Hip VERONICA : ORTHOPAEDICS 11/19/2013 6197-9-010 / / [id number] Prostalac Acetabular Cup Implanted:Qty: 1 on 04/28/2012 at [facility] Right: Hip SUBHA & SUBHA DEPUY 05/19/2017 1541-42-320 / / [id number] Prostalac Hip Stem Size 105mm Std Offset Implanted:Qty: 1 on 04/28/2012 at [facility] Right: Hip SUBHA & SUBHA DEPUY 10/19/2021 1541-01-000 / / [id number] Description:Prostalac Hip St em Size 105mm Offset (Depuy) Ball Artic Wiliam Brn 32 Plus5 - [id number] Implanted:Qty: 1 on 04/28/2012 at [facility] Right: Hip JNJ : DEPUY ORTHOPAEDICS 10/19/2016 [id number] / / [id number] Rest Mod Prox Cone Body 23 +11 - [id number] Implanted:Qty: 1 on 04/14/2014 at [facility] Right: Hip VERONICA : ORTHOPAEDICS 10/19/2018 6276-1-123 / / [id number] Head Fem 28mm - [id number] Implanted:Qty: 1 on 04/14/2014 at [facility] Right: Hip VERONICA : ORTHOPAEDICS 08/19/2018 6570-0-228 / / [id number] Insert 28mm - [id number] Implanted:Qty: 1 on 04/14/2014 at [facility] Right: Hip VERONICA : ORTHOPAEDICS 02/16/2019 1236-2-848 / / [id number] Cable/Sle Beaded D/M 20 Vit - [id number] Implanted:Qty: 1 on 04/14/2014 at [place] [facility] Right: Hip VERONICA : ORTHOPAEDICS 10/19/2017 6704-0-520 / / [id number] Cable/Sle Beaded D/M 20 Vit - [id number] Implanted:Qty: 1 on 04/14/2014 at [facility] Right: Hip VERONICA : ORTHOPAEDICS 10/19/2017 6704-0-520 / / [id number] Tritanium Revision Acetabular - [id number] Implanted:Qty: 1 on 04/14/2014 at [facility] Right: Hip VERONICA : ORTHOPAEDICS 05/19/2018 509-02-56E / / [id number] Screw Bone Osteolock 24 - [id number] Implanted:Qty: 1 on 04/14/2014 at [facility] Right: Hip VERONICA : ORTHOPAEDICS 02/16/2019 5260-5-024 / / [id number] Screw Bone Osteolock 35 - [id number] Implanted:Qty: 1 on 04/14/2014 at [facility] Right: Hip VERONICA : ORTHOPAEDICS 03/19/2017 5260-5-035 / / [id number] Liner 42mm - [id number] Implanted:Qty: 1 on 04/14/2014 at [place] [facility] Right: Hip VERONICA : ORTHOPAEDICS 11/19/2018 626-00-42E / / [id number] Hip S Mod Conical Dis 79m236 - [id number] Implanted:Qty: 1 on 04/14/2014 at [place] [facility] Right: Hip VERONICA : ORTHOPAEDICS 12/17/2018 6276-7-017 / / [id number] documented as of this encounter Visit Diagnoses Diagnosis History of fall- Primary Personal history of fall documented in this encounter Advance Directives * [...] and were consensually agreed upon. Care Teams Tub Tender Relationship Specialty Start Date End Date Willie Epstein MD [address] [place] [address] [phone] (Work) PCP - General Family Medicine 11/22/16 documented as of this encounter
--- OUTSIDE RECORDS SUMMARY | 2025-02-24 07:27 | External Medical Summary | Summary of Care ---
Author Name Unknown Organization [facility] Address [address] [place] [address] Phone [phone] Care Team Providers Care Measurement Operator Name Role Phone Willie Pizarro MD Primary Care Provider + Reason for Visit * Reason Comments eRx-Medication Refill Encounter Details Date Type Department Care Team (Late st Contact Info) Description 01/30/2025 Refill Family Practice [facility] [address] [place] [address] Willie Pizarro MD [address] [place] [address] Dyslipidemia, goal LDL below 70 Allergies Active Allergy Reactions Criticality Noted Date Comments Cefazolin Unknown 11/15/2023 Other Reaction(s): CAN'T REMEMBER Methylprednisolone Other (Please comment) 07/28/2017 Side effects c/w med (sweating, heart racing etc) Nitrofurantoin Hives High 03/01/2024 Nitrofurantoin Monohyd Macro Hives 04/04/2014 Pantoprazole Unknown 11/15/2023 Other Reaction(s): CAN'T REMEMBER Sulfa Antibiotics Edema face/lips/tongue High 09/02/2008 documented as of this encounter (statuses as of 01/30/2025) Medications INSULIN SYRINGE-NEEDLE U-100 30G X 1/2" 1 ML MISCIndications:D M type 2, goal A1c below 7 Use as directed 1 Box of 100 11 10/04/20 08 Active RENAL MULTIVITAMIN/ZINC PO TABS None Entered Active WebsupportTOUCH ULTRASOFT LANCETS MISCIndications:T ype 2 diabetes mellitus with hemoglobin A1c goal of less than 8.0% ([facility]) Use as directed 2 times a day. 1 Box Dosing Unit 11 01/17/20 17 Active cinacalcet (SENSIPAR) 30 MG Tablet Take 1 Tab by mouth daily with dinner. 90 Tab 3 11/07/19 18 Active Blood Glucose Monitoring Suppl (Verican ULTRA 2) w/Device KIT Use to check blood sugar 2 times a day; E11.9. 1 Kit 10/22/19 20 Active Glucose Blood (WebsupportTOUCH ULTRA BLUE) STRP Use to check blood sugar 2 times a day; E11.9. 200 Box Dosing Unit 3 10/22/19 20 Active Albuterol Sulfate HFA 108 (90 Base) MCG/ACT Inhalation Aerosol SolutionIndicatio ns:Bronchitis, complicated TAKE 2 PUFFS BY MOUTH EVERY 6 HOURS NEEDED FOR WHEEZE 18 g 04/17/20 23 Active Betamethasone Dipropionate 0.05 % External OintmentIndicatio ns:Plaque psoriasis APPLY 2X DAILY (OR MORE IF ITCHY INSTEAD OF SCRATCHING) TO AFFECTED PSORIASIS SPOTS ON ARMS/LEGS UNTIL RESOLVED 50 g 1 02/02/20 24 Active Aspirin 81 MG Oral Tablet Chewable Take 1 Tablet by mouth in the morning. ON HOLD OF 03/02/24. Active Gabapentin 100 MG Oral Capsule (Neurontin)Indica tions:Spondylolis thesis of lumbosacral region TAKE 1 CAPSULE BY MOUTH DAILY + 1 DOSE EXTRA AFTER DIALYSIS EVERY 3 DAYS. 135 Capsule 2 06/30/20 24 Active rOPINIRole HCl 2 MG Oral Tablet (Requip) TAKE 1 TABLET BY MOUTH AT BEDTIME. 1-3 HOURS BEFORE BEDTIME WITH FOOD FOR RESTLESS LEGS 90 Tablet 3 06/30/20 24 Active Triamcinolone Acetonide 0.1 % External Ointment (Aristocort)Indic ations:Inverse psoriasis APPLY 2X DAILY DURING WEEK (OFF [...] Active Trulicity 0.75 MG/0.5ML Subcutaneous Solution Auto-injector (Dulaglutide)Ruba cations:Type 2 diabetes mellitus with hemoglobin [...] oxyCODONE HCl 5 MG Oral Tablet (Oxy IR)Indications:ME DICATION USE AGREEMENT,Chronic bilateral low back pain, unspecified [...] 25 Active Simvastatin 20 MG Oral Tablet (Zocor)Indication s:Dyslipidemia, goal LDL below 70 TAKE ONE TABLET BY MOUTH ONCE A DAY AT BEDTIME 90 Tablet 1 01/31/20 25 Active Citalopram Hydrobromide 20 MG Oral Tablet (CeleXA) TAKE 1 TABLET BY MOUTH EVERY DAY 90 Tablet 1 01/31/20 25 Active Citalopram Hydrobromide 20 MG Oral Tablet (CeleXA) TAKE 1 TABLET BY MOUTH EVERY DAY 90 Tablet 1 07/31/20 24 025 Discontinued Simvastatin 20 MG Oral Tablet (Zocor)Indication s:Dyslipidemia, goal LDL below 70 TAKE ONE TABLET BY MOUTH ONCE A DAY AT BEDTIME 90 Tablet 10/29/19 25 025 Discontinued documented as of this encounter (statuses as of 01/30/2025) Active Problems Problem Noted Date Diagnosed Date [...] adult exam 08/04/2019 Overview (03/04/2024): 03/12 EGD [facility]-normal esoph, gastritis. Small hiatal hernia. Gastric 10mm diverticula 01/09 DEXA +osteoporosis. NEED discuss. 11/10 colon +tubular adenomas. 04/09 mult compression fractures. 05/2018 many polyps Therapeutic opioid induced constipation 08/04/20 19 ESRD on dialysis 09/08/2016 Overview (02/26/2021): 03/05 HCP forms given-wants . NEEDS further Living will 2017 consider transplant needs 20lb -HD [facility]? T,R, S. Since January 2013. Spondylolisthesis [...] as of this encounter (statuses as of 01/30/2025) Resolved Problems Problem Noted Date Diagnosed Date Resolved Date Thoracic compression fracture 04/09/2021 04/13/2021 Overview (04/09/2021): Mult levels 04/09 CT [facility] + lumbar Respiratory symptoms 01/08/2020 021 Fever of unknown origin (FUO) 01/07/2020 02/26/2021 Respiratory infection 01/07/20202020 Cellulitis 06/28/2016 09/08/2016 Abnormal vaginal bleeding 02/12/2016 Cellulitis 02/07/2016 09/08/2016 UTI (urinary tract infection), bacterial 04/19/2014 05/02/2014 Hypotension 04/15/2014 05/02/2014 Compression of lumbar vertebra 02/03/2013 06/07/2021 Overview (04/09/2021): Mult levels noted 04/[address] [facility] [address] also thoracic CKD [...] 08/25/200909/06 Overview (08/25/2009): Modified 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 M[facility] current use of ant icoagulant therapy 04/19/2009 [...] s/p B/L stents Sees Dr. 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 on file [...] encounter Miscellaneous Notes * [facility] 1:33 PM EDT Signed Prescriptions: Disp Refills Simvastatin 20 MG Oral Tablet (Zocor) 90 Tab*1 Sig: TAKE ONE TABLET BY MOUTH ONCE A DAY AT BEDTIMEAuthorizing Provider: WILLIE PIZARRO User: KAREN COLE Citalopram Hydrobromide 20 MG Oral Tablet *90 Tab*1 Sig: TAKE 1 TABLET BY MOUTH EVERY D AYAuthorizing Provider: WILLIE PIZARRO User: KAREN COLE documented in this encounter Plan of Treatment Upcoming Encounters Date Type Department Care Team (Late st Contact Info) Description 02/10/2025 1:15 PM EDT Imaging Radiology [address] [place] [address] 02/23/2025 12:20 PM EDT Office Visit [facility] [address] [place] [address] Coco Montanez DO [address] [place] [address] 03/22/2025 1:40 PM EDT Office Visit Family Practice [facility] [address] [place] [address] Willie Pizarro MD [address] [place] [address] 03/22/2025 2:40 PM EDT Office Visit Pharmacy, [facility] [address] [facility] [place] [address] [facility] [place] [address] 06/13/2025 11:00 AM EDT Cardiac Studies Cardiac Studies, [facility] [address] [place] [phone] 07/04/2025 4:00 PM EDT Office Visit [facility]iology, [facility] [place] [phone] Bandar Avila MD [address] [place] [address] 08/03/2025 11:00 AM EDT Office Visit Dermatology, [facility] [address] [place] [phone] Coco Ivan PA-C [address] [place] [address] [place] [address] Scheduled Procedures Name Priority Associated Diagnoses Date/Ti [...] this encounter Medical Devices Implanted Type Area Can Patcher Device Identifier Shelf Expiration Date Model / Serial / Lot Cement Antibiotic Bone - [id number] Implanted:Qty: 3 on 04/28/[address] [facility] Right: Hip VERONICA : ORTHOPAEDICS 11/19/2013 6197-9-010 / / [id number] Prostalac Acetabular Cup Implanted:Qty: 1 on 04/28/2012 at [facility] Right: Hip SUBHA & SUBHA DEPUY 05/19/2017 1541-42-320 / / [id number] Prostalac Hip Stem Size 105mm Std Offset Implanted:Qty: 1 on 04/28/2012 at [facility] Right: Hip SUBHA & SUBHA DEPUY 10/19/2021 1541-01-000 / / [id number] Description:Prostalac Hip St em Size 105mm Offset (Depuy) Ball Artic Wiliam Brn 32 Plus5 - [id number] Implanted:Qty: 1 on 04/28/[address] [facility] Right: Hip JNJ : DEPUY ORTHOPAEDICS 10/19/2016 [id number] / / [id number] Rest Mod Prox Cone Body 23 +11 - [id number] Implanted:Qty: 1 on 04/14/[address] [facility] Right: Hip VERONICA : ORTHOPAEDICS 10/19/2018 6276-1-123 / / [id number] Head Fem 28mm - [id number] Implanted:Qty: 1 on 04/14/[address] [facility] Right: Hip VERONICA : ORTHOPAEDICS 08/19/2018 6570-0-228 / / [id number] Insert 28mm - [id number] Implanted:Qty: 1 on 04/14/[address] [facility] Right: Hip VERONICA : ORTHOPAEDICS 02/16/2019 1236-2-848 / / [id number] Cable/Sle Beaded D/M 20 Vit - [id number] Implanted:Qty: 1 on 04/14/2014 at [facility] Right: Hip VERONICA : ORTHOPAEDICS 10/19/2017 6704-0-520 / / [id number] Cable/Sle Beaded D/M 20 Vit - [id number] Implanted:Qty: 1 on 04/14/2014 at [facility] Right: Hip VERONICA : ORTHOPAEDICS 10/19/2017 6704-0-520 / / [id number] Tritanium Revision Acetabular - [id number] Implanted:Qty: 1 on 04/14/[address] [facility] Right: Hip VERONICA : ORTHOPAEDICS 05/19/2018 509-02-56E / / [id number] Screw Bone Osteolock 24 - [id number] Implanted:Qty: 1 on 04/14/2014 at [facility] Right: Hip VERONICA : ORTHOPAEDICS 02/16/2019 5260-5-024 / / [id number] Screw Bone Osteolock 35 - [id number] Implanted:Qty: 1 on 04/14/[address] [facility] Right: Hip VERONICA : ORTHOPAEDICS 03/19/2017 5260-5-035 / / [id number] Liner 42mm - [id number] Implanted:Qty: 1 on 04/14/2014 at [facility] Right: Hip VERONICA : ORTHOPAEDICS 11/19/2018 626-00-42E / / [id number] Hip S Mod Conical Dis 36d591 - [id number] Implanted:Qty: 1 on 04/14/[address] [facility] Right: Hip VERONICA : ORTHOPAEDICS 12/17/2018 6276-7-017 / / [id number] documented as of this encounter Visit Diagnoses [...] and were consensually agreed upon. Care Teams Measurement Operator Relationship Specialty Start Date End Date Willie Pizarro MD [address] [place] [address] PCP - General Family Medicine 11/22/16 documented as of this encounter
--- OUTSIDE RECORDS SUMMARY | 2025-02-24 07:28 | External Medical Summary | Summary of Care ---
Author Name Unknown Organization [facility] Address [address] [place] [address] Phone [phone] Care Team Providers Care Carton Forming Machine Adjuster Name Role Phone Willie Pizarro MD Primary Care Provider + Reason for Visit * Reason Onset Date Comments Medication Refill 01/04/2025 Status Check 01/05/2025 Encounter Details Date Type Department Care Team (Late st Contact Info) Description 01/04/2025 Refill [facility] [address] [facility] [place] [place] [id number] Willie Pizarro MD [address] [facility] [place] [address] MEDICATION USE AGREEMENT*; Chronic bilateral low back pain, unspecified whether sciatica present Allergies Active Allergy Reactions Criticality Noted Date Comments Cefazolin Unknown 11/15/2023 Other Reaction(s): CAN'T REMEMBER Methylprednisolone Other (Please comment) 07/28/2017 Side effects c/w med (sweating, heart racing etc) Nitrofurantoin Hives High 03/01/2024 Nitrofurantoin Monohyd Macro Hives 04/04/2014 Pantoprazole Unknown 11/15/2023 Other Reaction(s): CAN'T REMEMBER Sulfa Antibiotics Edema face/lips/tongue High 09/02/2008 documented as of this encounter (statuses as of 01/05/2025) Medications INSULIN SYRINGE-NEEDLE U-100 30G X 1/2" [...] 11/07/19 18 Active Blood Glucose Monitoring Suppl (Condition One ULTRA 2) w/Device KIT Use to check blood sugar 2 times a day; E11.9. 1 Kit 10/22/19 20 Active Glucose Blood (CloutexTOUCH ULTRA BLUE) STRP Use to check blood [...] morning. for pain.. 30 Tablet 01/06/20 25 Active oxyCODONE HCl 15 MG Oral Tablet (Roxicodone) Take 1 Tablet by mouth every 8 hours as needed for Pain, Severe. 21 Tablet 12/09/19 25 025 Discontin ued(Medic ation/Dos e Changed) Buprenorphine 15 MCG/HR Transdermal Patch Weekly (Butrans)Indicatio ns:MEDICATION USE AGREEMENT,Spondylo listhesis of lumbosacral region,Lumbar back pain Place 15 mcg topically on the skin once a week. 4 Patch 12/10/19 25 025 Discontin ued(Medic ation List Clean Up) documented as of this encounter (statuses as of 01/05/2025) Active Problems Problem Noted Date Diagnosed Date [...] adult exam 08/04/2019 Overview (03/04/2024): 03/12 EGD [facility]-normal esoph, gastritis. Small hiatal hernia. Gastric 10mm diverticula 01/09 DEXA +osteoporosis. NEED discuss. 11/10 colon +tubular adenomas. 04/09 mult compression fractures. 05/2018 many polyps Therapeutic opioid induced constipation 08/04/20 ESRD on dialysis 09/08/2016 Overview (02/26/2021): 03/05 HCP forms given-wants . NEEDS further Living will 2017 consider transplant needs 20lb -HD [place] [facility]? T,R, S. Since January 2013. Spondylolisthesis of lumbosacral region 04/17/20 13 Overview (02/03/2013): L5-S1 level with grade [...] as of this encounter (statuses as of 01/05/2025) Resolved Problems Problem Noted Date Diagnosed Date Resolved Date Thoracic compression fracture 04/09/2021 04/13/2021 Overview (04/09/2021): Mult levels 04/09 CT [facility] + lumbar Respiratory symptoms 01/08/2020 021 Fever of unknown origin (FUO) 01/07/2020 02/26/2021 Respiratory infection 01/07/20202020 Cellulitis 06/28/2016 09/08/2016 Abnormal vaginal bleeding 02/12/2016 Cellulitis 02/07/2016 09/08/2016 UTI (urinary tract infection), bacterial 04/19/2014 05/02/2014 Hypotension 04/15/2014 05/02/2014 Compression of lumbar vertebra 02/03/2013 06/07/2021 Overview (04/09/2021): Mult levels noted 04/[address] [facility] [address] also thoracic CKD (chronic kidney disease), [...] 08/25/200909/06 Overview (08/25/2009): Modified 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 for pain..AuthorizingProvider: WILLIE PIZARRO * Telephone Encounter - Willie Pizarro MD - 01/05/2025 3:27 PM EDT Called pt. On Butrans 15 mg to be helpful for chronic back pain and joint pain. She did not find oxycodone 15 mg helpful either. She stopped her Butrans patch 2 days ago. She does feel much more agitated shaky feeling today withdrawal. Has not had any significant diarrhea today. She is willing to try meloxicam for NSAID use as she is already on dialysis. We will do an oxycodone taper to help prevent withdrawal symptoms. Discussed with pharmacist "I have reviewed the patient's controlled substance dispensing history in the Prescription Drug Monitoring Program in compliance with the [facility] regulations before prescribing a controlled substance." * Telephone Encounter - Isac Garber, treatment plant operator - 01/05/2025 2:34 PM EDT Patient calling to check on status of oxycodone refill. Pt stating she removed the Butrans patch Wednesday 01/03, as it did not "do anything" for her pain. Thank you, Isac Garber Instrumentation Designer I [facility] 01/05/2025,2:34 PM * Telephone Encounter - Moriah Retana [facility] - 01/05/2025 1:26 PM EDTPending Prescriptions: Disp Refills oxyCODONE HCl 15 MG Oral Tablet (Roxicodon*21 Tab*0 Sig: Take 1 Tablet by mouth every 8 hours as needed for Pain, Severe. * Telephone Encounter - Moriah Retana [facility] - 01/05/2025 1:26 PM EDT I have reviewed the patient’s controlled substance dispensing history in the Prescription Drug Monitoring Program in compliance with the [facility] regulations before prescribing a controlled substance. PDMP checked on 01/05/2025. Pending Prescriptions: Disp Refills oxyCODONE HCl 15 MG Oral Tablet (Roxicodo*21 Tab*0 Sig: Take 1 Tablet by mouth every 8 hours as needed for Pain, Severe. Last Visit: 01/03/2025 (in office), 01/21/2024 (telemedicine) Next Visit: 01/22/2025 Date medication was last filled: 11/08/24 Date medication is due for refill: 12/07/24 Pharmacy: [id number] [id number] [facility] Is this request for a controlled substance? [...] Results Review. Please approve if appropriate. Thanks, Moriah Retana Clinical Pharmacist [facility]) [phone] 01/05/2025, 1:26 PM * Telephone Encounter - Anat Ramirez TECH - 01/04/2025 4:20 PM EDT Did you pend patient's preferred pharmacy and medication before forwarding?yes Pharmacy: [id number] [id number] [facility] Pending Prescriptions: Disp Refills oxyCODONE HCl 15 MG Oral Tablet (Roxicodo*21 Tab*0 Sig: Take 1 Tablet by mouth every 8 hours as needed for Pain, Severe. Last Visit: 01/03/2025 (in office), 01/21/2024 (telemedicine) Next Visit: 01/22/2025 If no future appointments scheduled, and last appointment is greater than a year ago, please schedule patient for a follow-up appointment Last date the medication was ordered: 12/09/24 Is this request for a controlled substance?Yes, What was the last refill date 12/09/24 w/ quantity 21 and dosage 15 mg and Urine Drug [...] Care Team (Late st Contact Info) Description 01/22/2025 1:40 PM EDT Office Visit Family Practice [facility] [address] [place] [address] Coco Montanez DO [address] [place] [address] 01/28/2025 11:40 AM EDT Office Visit Pharmacy, [facility] [address] [place] [address] D[facility]han [facility] [address] [place] [address] 03/22/2025 1:40 PM EDT Office Visit Family Practice [facility] [address] [place] [address] Willie Pizarro MD [address] [place] [address] 06/13/2025 11:00 AM EDT Cardiac Studies Card[facility] Studies, [facility] [place] [address] 07/04/2025 4:00 PM EDT Office Visit Cardiology, [facility] [place] [address] Bandar Avila MD [address] [place] [address] 08/03/2025 11:00 AM EDT [facility] [address] [facility] [place] [phone] Coco Ivan PA-C [address] [place] [address] [place] [address] Scheduled Procedures Name Priority Associated Diagnoses Date/Ti [...] this encounter Medical Devices Implanted Type Area Ball Warper Tender Device Identifier Shelf Expiration Date Model / Serial / Lot Cement Antibiotic Bone - [id number] Implanted:Qty: 3 on 04/28/2012 at [place] [facility] Right: Hip VERONICA : ORTHOPAEDICS 11/19/2013 6197-9-010 / / [id number] Prostalac Acetabular Cup Implanted:Qty: 1 on 04/28/2012 at [place] [facility] Right: Hip SUBHA & SUBHA DEPUY 05/19/2017 1541-42-320 / / [id number] Prostalac Hip Stem Size 105mm Std Offset Implanted:Qty: 1 on 04/28/2012 at [place] [facility] Right: Hip SUBHA & SUBHA DEPUY 10/19/2021 1541-01-000 / / [id number] Description:Prostalac Hip St em Size 105mm Offset (Depuy) Ball Artic Wiliam Brn 32 Plus5 - [id number] Implanted:Qty: 1 on 04/28/2012 at [place] [facility] Right: Hip JNJ : DEPUY ORTHOPAEDICS 10/19/2016 [id number] / / [id number] Rest Mod Prox Cone Body 23 +11 - [id number] Implanted:Qty: 1 on 04/14/2014 at [facility] Right: Hip VERONICA : ORTHOPAEDICS 10/19/2018 6276-1-123 / / [id number] Head Fem 28mm - [id number] Implanted:Qty: 1 on 04/14/2014 at [facility] Right: Hip VERONICA : ORTHOPAEDICS 08/19/2018 6570-0-228 / / [id number] Insert 28mm - [id number] Implanted:Qty: 1 on 04/14/2014 at [facility] Right: Hip VERONICA : ORTHOPAEDICS 02/16/2019 1236-2-848 / / [id number] Cable/Sle Beaded D/M 20 Vit - [id number] Implanted:Qty: 1 on 04/14/2014 at [place] [facility] Right: Hip VERONICA : ORTHOPAEDICS 10/19/2017 6704-0-520 / / [id number] Cable/Sle Beaded D/M 20 Vit - [id number] Implanted:Qty: 1 on 04/14/2014 at [place] [facility] Right: Hip VERONICA : ORTHOPAEDICS 10/19/2017 6704-0-520 / / [id number] Tritanium Revision Acetabular - [id number] Implanted:Qty: 1 on 04/14/2014 at [facility] Right: Hip VERONICA : ORTHOPAEDICS 05/19/2018 509-02-56E / / [id number] Screw Bone Osteolock 24 - [id number] Implanted:Qty: 1 on 04/14/2014 at [facility] Right: Hip VERONICA : ORTHOPAEDICS 02/16/2019 5260-5-024 / / [id number] Screw Bone Osteolock 35 - [id number] Implanted:Qty: 1 on 04/14/2014 at [facility] Right: Hip VERONICA : ORTHOPAEDICS 03/19/2017 5260-5-035 / / [id number] Liner 42mm - [id number] Implanted:Qty: 1 on 04/14/2014 at [place] [facility] Right: Hip VERONICA : ORTHOPAEDICS 11/19/2018 626-00-42E / / [id number] Hip S Mod Conical Dis 39b206 - [id number] Implanted:Qty: 1 on 04/14/2014 at [facility] Right: Hip VERONICA : ORTHOPAEDICS 12/17/2018 6276-7-017 / / [id number] documented as of this encounter Visit Diagnoses Diagnosis MEDICATION USE AGREEMENT- Primary Chronic bilateral low back pain, unspecified whether sciatica present documented in this encounter Advance Directives * [...] and were consensually agreed upon. Care Teams Carton Forming Machine Adjuster Relationship Specialty Start Date End Date Willie Pizarro MD [address] [place] [address] PCP - General Family Medicine 11/22/16 documented as of this encounter
--- OUTSIDE RECORDS SUMMARY | 2025-02-24 07:28 | External Medical Summary | Summary of Care ---
Author Name Unknown Organization [facility] Address [address] [place] [address] Phone [phone] Care Team Providers Care Grid Trimmer Name Role Phone Willie Epstein MD Primary Care Provider + Encounter Details Date Type Department Care Team (Late st Contact Info) Description 01/07/2025 Orders Only PATIENT PORTAL DO NOT DELETE THIS DEPT USED BY [place] [phone] Allergies Active Allergy Reactions Criticality Noted Date Comments Cefazolin Unknown 11/15/2023 Other Reaction(s): CAN'T REMEMBER Methylprednisolone Other (Please comment) 07/28/2017 Side effects c/w med (sweating, heart racing etc) Nitrofurantoin Hives High 03/01/2024 Nitrofurantoin Monohyd Macro Hives 04/04/2014 Pantoprazole Unknown 11/15/2023 Other Reaction(s): CAN'T REMEMBER Sulfa Antibiotics Edema face/lips/tongue High 09/02/2008 documented as of this encounter (statuses as of 01/07/2025) Medications INSULIN SYRINGE-NEEDLE U-100 30G X 1/2" [...] 3 8 Active Blood Glucose Monitoring Suppl ([employer] ULTRA 2) w/Device KIT Use to check blood sugar 2 times a day; E11.9. 1 Kit 0 Active Glucose Blood (FetchmobTOUCH ULTRA BLUE) STRP Use to check blood [...] withdrawal.. 70 Tablet 5 02/03/20 25 Active Meloxicam 15 MG Oral TabletIndications: MEDICATION USE AGREEMENT,Chronic bilateral low back pain, unspecified whether sciatica present Take 1 Tablet by mouth in the morning. for pain.. 30 Tablet 5 Active documented as of this encounter (statuses as of 01/07/2025) Active Problems Problem Noted Date Diagnosed Date [...] exam 08/04/2019 Overview (03/04/2024): 03/12 EGD [facility]-normal esoph, gastritis. Small hiatal hernia. Gastric 10mm diverticula 01/09 DEXA +osteoporosis. NEED discuss. 11/10 colon +tubular adenomas. 04/09 mult compression fractures. 05/2018 many polyps Therapeutic opioid induced constipation 08/04/20 19 ESRD on dialysis 09/08/2016 Overview (02/26/2021): 03/05 HCP forms given-wants . NEEDS further Living will 2017 consider transplant needs 20lb -HD [facility]? T,R, S. Since January 2013. Spondylolisthesis [...] as of this encounter (statuses as of 01/07/2025) Resolved Problems Problem Noted Date Diagnosed Date Resolved Date Thoracic compression fracture 04/09/2021 04/13/2021 Overview (04/09/2021): Mult levels 04/09 CT [facility] + lumbar Respiratory symptoms 01/08/2020 021 Fever of unknown origin (FUO) 01/07/2020 02/26/2021 Respiratory infection 01/07/20202020 Cellulitis 06/28/2016 09/08/2016 Abnormal vaginal bleeding 02/12/2016 Cellulitis 02/07/2016 09/08/2016 UTI (urinary tract infection), bacterial 04/19/2014 05/02/2014 Hypotension 04/15/2014 05/02/2014 Compression of lumbar vertebra 02/03/2013 06/07/2021 Overview (04/09/2021): Mult levels noted 04/09 [facility] [...] 08/25/200909/06 Overview (08/25/2009): Modified 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 Not on file Not [...] Entry Date Author No 01/07/2020 6:50 PM KAVEHT Moriah Coughlin RN documented in this encounter Plan of Treatment Upcoming Encounters Date Type Department Care Team (Late st Contact Info) Description 01/22/2025 1:40 PM EDT Office Visit [facility] [address] [place] [address] Coco Montanez DO [address] [place] [address] 01/28/2025 11:40 AM EDT Office Visit Pharmacy, [facility] [address] [facility] [place] [address] [facility] [address] [place] [address] 03/22/2025 1:40 PM EDT Office Visit [facility] [place] [address] Willie Epstein MD [address] [place] [address] 06/13/2025 11:00 AM EDT Cardiac Studies Cardiac Studies, [facility] [address] [place] [address] 07/04/2025 4:00 PM EDT Office Visit Cardiology, [facility] [address] [place] [phone] Bandar Avila MD [address] [place] [address] 08/03/2025 11:00 AM EDT Office Visit Dermatology [facility] [address] [facility] [place] [phone] Coco Ivan PA-C [address] [place] [address] [place] [address] Scheduled Procedures Name Priority Associated Diagnoses Date/Ti [...] this encounter Medical Devices Implanted Type Area Senior Technical Trainer Device Identifier Shelf Expiration Date Model / Serial / Lot Cement Antibiotic Bone - [id number] Implanted:Qty: 3 on 04/28/2012 at [place] [facility] [place]: Hip VERONICA : ORTHOPAEDICS 11/19/2013 6197-9-010 / / [id number] Prostalac Acetabular Cup Implanted:Qty: 1 on 04/28/2012 at [place] [facility] [place] Right: Hip SUBHA & SUBHA DEPUY 05/19/2017 1541-42-320 / / [id number] Prostalac Hip Stem Size 105mm Std Offset Implanted:Qty: 1 on 04/28/2012 at [place] [facility] [place] Right: Hip SUBHA & SUBHA DEPUY 10/19/2021 1541-01-000 / / [id number] Description:Prostalac Hip St em Size 105mm Offset (Depuy) Ball Artic Wiliam Brn 32 Plus5 - [id number] Implanted:Qty: 1 on 04/28/2012 at [place] [facility] [place] Right: Hip JNJ : DEPUY ORTHOPAEDICS 10/19/2016 [id number] / / [id number] Rest Mod Prox Cone Body 23 +11 - [id number] Implanted:Qty: 1 on 04/14/2014 at [place] [facility] [place] Right: Hip VERONICA : ORTHOPAEDICS 10/19/2018 6276-1-123 / / [id number] Head Fem 28mm - [id number] Implanted:Qty: 1 on 04/14/2014 at [place] [facility] [place] Right: Hip VERONICA : ORTHOPAEDICS 08/19/2018 6570-0-228 / / [id number] Insert 28mm - [id number] Implanted:Qty: 1 on 04/14/2014 at [place] [facility] [place] Right: Hip VERONICA : ORTHOPAEDICS 02/16/2019 1236-2-848 / / [id number] Cable/Sle Beaded D/M 20 Vit - [id number] Implanted:Qty: 1 on 04/14/2014 at [place] [facility] [place] Right: Hip VERONICA : ORTHOPAEDICS 10/19/2017 6704-0-520 / / [id number] Cable/Sle Beaded D/M 20 Vit - [id number] Implanted:Qty: 1 on 04/14/2014 at [place] [facility] [place] Right: Hip VERONICA : ORTHOPAEDICS 10/19/2017 6704-0-520 / / [id number] Tritanium Revision Acetabular - [id number] Implanted:Qty: 1 on 04/14/2014 at [place] [facility] [place] Right: Hip VERONICA : ORTHOPAEDICS 05/19/2018 509-02-56E / / [id number] Screw Bone Osteolock 24 - [id number] Implanted:Qty: 1 on 04/14/2014 at [place] [facility] [place] Right: Hip VERONICA : ORTHOPAEDICS 02/16/2019 5260-5-024 / / [id number] Screw Bone Osteolock 35 - [id number] Implanted:Qty: 1 on 04/14/2014 at [place] [facility] [place] Right: Hip VERONICA : ORTHOPAEDICS 03/19/2017 5260-5-035 / / [id number] Liner 42mm - [id number] Implanted:Qty: 1 on 04/14/2014 at [place] [facility] [place] Right: Hip VERONICA : ORTHOPAEDICS 11/19/2018 626-00-42E / / [id number] Hip S Mod Conical Dis 69h698 - [id number] Implanted:Qty: 1 on 04/14/2014 at [place] [facility] [place] Right: Hip VERONICA : ORTHOPAEDICS 12/17/2018 6276-7-017 / / [id number] documented as of this encounter Advance Directives [...] and were consensually agreed upon. Care Teams Grid Trimmer Relationship Specialty Start Date End Date Willie Epstein MD [address] [place] [address] PCP - General Family Medicine 11/22/16 documented as of this encounter
--- OUTSIDE RECORDS SUMMARY | 2025-02-24 07:28 | External Medical Summary ---
Author Name Unknown Address Unknown Organization [id number][facility] [address] [facility] [address] Laboratory Report Ordering Provider Test Date Status KAMARI HANKINS 01/28/2025 10:58:15 Final Observation Date Value Abnormality Reference (Units ) Status Iron 01/28/2025 10:58:15 83 33-151 (ug/dL) Final Iron-binding capacity 01/28/2025 10:58:15 247 Below low normal 250-425 (ug/dL) Final Transferrin Sat % 01/28/2025 10:58:15 34 15-55 (%) Final Performing Location [facility] [address] [facility] [address]
--- OUTSIDE RECORDS SUMMARY | 2025-02-24 07:28 | External Medical Summary ---
Author Name Unknown Address Unknown Organization [id number]:[facility] - [address] [place] [address] Laboratory Report Ordering Provider Test Date Status KAMARI HANKINS 01/28/2025 10:58:15 Final Observation Date Value Abnormality Reference (Units ) Status SYNC LEUKOCYTES IN BLOOD BY AUTOMATED COUNT 01/28/2025 10:58:15 6.41 4.00-10.80 (K/uL) Final Segs 01/28/2025 10:58:15 70.5 40.0-75.0 (%) Final Lymphs % 01/28/2025 10:58:15 17.9 Below low normal 18.0-42.0 (%) Final Monos 01/28/2025 10:58:15 7.8 1.0-11.0 (%) Final Eosinophils 01/28/2025 10:58:15 3.3 0.0-6.0 (%) Final Basos 01/28/2025 10:58:15 0.5 0.0-2.0 (%) Final Absolute Segs 01/28/2025 10:58:15 4.52 1.80-7.70 (K/uL) Final Lymphs, absolute 01/28/2025 10:58:15 1.15 1.00-4.80 (K/ul) Final Monos, Abs 01/28/2025 10:58:15 0.50 0.00-1.10 (K/uL) Final Eos, Abs 01/28/2025 10:58:15 0.21 0.00-0.70 (K/uL) Final Basos, Abs 01/28/2025 10:58:15 0.03 0.00-0.20 (K/uL) Final Performing Location [facility] [place] [address]
--- OUTSIDE RECORDS SUMMARY | 2025-02-24 07:28 | External Medical Summary | Summary of Care ---
Author Name Unknown Organization [facility] Address [address] [place] [address] Phone [phone] Care Team Providers Care Patent Litigation Associate Name Role Phone Willie Epsteni MD Primary Care Provider + Reason for Visit * Reason Onset Date Comments Hospital Follow-Up 12/24/2024 YOSEF ([facility]) Encounter Details Date Type Department Care Team ([facility] st Contact Info) Description 12/24/[address] [facility] [address] [place] [address] Ruby Palacios, AMANDA Hospital Follow-Up (YOSEF ([facility])) Allergies Active Allergy Reactions Criticality Noted Date Comments Cefazolin Unknown 11/15/2023 Other Reaction(s): CAN'T REMEMBER Methylprednisolone Other (Please comment) 07/28/2017 Side effects c/w med (sweating, heart racing etc) Nitrofurantoin Hives High 03/01/2024 Nitrofurantoin Monohyd Macro Hives 04/04/2014 Pantoprazole Unknown 11/15/2023 Other Reaction(s): CAN'T REMEMBER Sulfa Antibiotics Edema face/lips/tongue High 09/02/2008 documented as of this encounter (statuses as of 12/27/2024) Medications INSULIN SYRINGE-NEEDLE U-100 30G X 1/2" 1 ML MISCIndications:DM type 2, goal A1c below 7 Use as directed 1 Box of 100 11 8 Active RENAL MULTIVITAMIN/ZINC PO TABS None Entered Active Tulane UniversityTOUCH ULTRASOFT LANCETS MISCIndications:Ty pe 2 diabetes mellitus with hemoglobin A1c goal of less than 8.0% ([facility]) Use as directed 2 times a day. 1 Box Dosing Unit 11 7 Active cinacalcet (SENSIPAR) 30 MG Tablet Take 1 Tab by mouth daily with dinner. 90 Tab 3 8 Active Blood Glucose Monitoring Suppl ([employer] ULTRA 2) w/Device KIT Use to check blood sugar 2 times a day; E11.9. 1 Kit 0 Active Glucose Blood (SalesconxUCH ULTRA BLUE) STRP Use to check blood [...] 8.0% ([facility]) INJECT UNDER THE SKIN 0.75 MG ONCE A WEEK 6 mL 1 5 Active oxyCODONE HCl 15 MG Oral Tablet (Roxicodone) Take 1 Tablet by mouth every 8 hours as needed for Pain, Severe. 21 Tablet 5 Active Buprenorphine 15 MCG/HR Transdermal Patch Weekly (Butrans)Indicatio ns:MEDICATION USE AGREEMENT,Spondylo listhesis of lumbosacral region,Lumbar back pain Place 15 mcg topically on the skin once a week. 4 Patch 5 Active documented as of this encounter (statuses as of 12/27/2024) Active Problems Problem Noted Date Diagnosed Date [...] exam 08/04/2019 Overview (03/04/2024): 03/12 EGD [facility]-normal esoph, gastritis. Small hiatal hernia. Gastric 10mm diverticula 01/09 DEXA +osteoporosis. NEED discuss. 11/10 colon +tubular adenomas. 04/09 mult compression fractures. 05/2018 many polyps Therapeutic opioid induced constipation 08/04/20 ESRD on dialysis 09/08/2016 Overview (02/26/2021): 03/05 HCP forms given-wants . NEEDS further Living will 2017 consider transplant needs 20lb -[facility]? T,R, S. Since January 2013. Spondylolisthesis [...] as of this encounter (statuses as of 12/27/2024) Resolved Problems Problem Noted Date Diagnosed Date Resolved Date Thoracic compression fracture 04/09/2021 04/13/2021 Overview (04/09/2021): Mult levels 04/09 CT [facility] + lumbar Respiratory symptoms 01/08/2020 021 Fever of unknown origin (FUO) 01/07/2020 02/26/2021 Respiratory infection 01/07/20202020 Cellulitis 06/28/2016 09/08/2016 Abnormal vaginal bleeding 02/12/2016 Cellulitis 02/07/2016 09/08/2016 UTI (urinary tract infection), bacterial 04/19/2014 05/02/2014 Hypotension 04/15/2014 05/02/2014 Compression of lumbar vertebra 02/03/2013 06/07/2021 Overview (04/09/2021): Mult levels noted 04/09 [facility] 08/25/200909/06 Overview (08/25/2009): 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 Angel in [place] for Urology Osteoarthritis of hip 2018 documented as of this encounter (statuses as of 12/27/2024) Immunizations Name Administration Dates Next Due COVID-19 mRNA, LNP-s, No Pre serve, 2-Dose Series (Pfizer) 09/11/2021,01/02/2021,12/12/2020 COVID-19, mRNA, LNP-s, PF, B ooster, 100mcg/0.5mg (Moderna) 02/26/2022 Covid-19, Mrna, Lnp-s, Pf, B ivalent, 30 Mcg, IM, 12 yrs and above (Pfizer) 07/01/2022 H1N1 2009 Influenza, IM 10/17/2009 HEPATITIS B VACCINE, RECOMB, 20 MCG/ML, ADULT (HEPLISAV-B) 06/01/2024,05/28/2022,04/04/2022,02/17,01/29/2022 Hepatitis B, 0-19 yrs 03/07/2016, 016,11/02/2015,08/21,05/11/2013,04/13/2013,03/16/20 13 [...] Industry 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 Patient states that she is available to take a call at [phone]. * Telephone Encounter - Ruby Palacios RN - 12/24/2024 11:23 AM EST Transitions of Care Note Reason for Referral:Recent Admission Phone visit for follow up: YOSEF #1 Admitted to: [facility], Date: 12/21/2024 Discharged to: Home, Date: 12/23/2024 Diagnosis driving hospitalization: Influenza A Pneumonia, Acute on Chronic Hypoxic Respiratory Failure Attempted Phone Call First Attempt Call Outcome Left Voicemail/Message Message left on voicemail for patient. When they call back please transfer them to me at [phone]. If you are unable to reach me or my voicemail please route this message back to me. Thank you. Transitions of Care Note Reason for Referral:Recent Admission Phone visit for follow up: YOSEF #2 Admitted to: [facility], Date: 12/21/2024 Discharged to: Home, Date: 12/23/2024 Diagnosis driving hospitalization: Influenza A Pneumonia, Acute on Chronic Hypoxic Respiratory Failure Source/Contact: Patient Patient is requesting a call back at 2 pm today. Not able to talk right now. New medications: Benzonatate, Guaifenesin, Oseltamivir Ruby Palacios RN Transitions of Care Note Reason for Referral:Recent Admission Phone visit for follow up: YOSEF #3 Admitted to: [facility], Date: 12/21/2024 Discharged to: Home, Date: 12/23/2024 Diagnosis driving hospitalization: Influenza A Pneumonia, Acute on Chronic Hypoxic Respiratory Failure Attempted Phone Call Second Attempt/Third attempt Call Outcome Left Voicemail/Message documented in this encounter Plan of Treatment Upcoming Encounters Date Type Department Care Team (Late st Contact Info) Description 12/29/2024 2:00 PM EDT Office Visit [facility] [address] [place] [address] Coco Montanez DO [address] [place] [address] 01/28/2025 11:40 AM EDT Office Visit Pharmacy, [facility] [address] [place] [address] [facility] [address] [place] [address] 03/22/2025 1:40 PM EDT Office Visit [facility] [address] [place] [address] Willie Epstein MD [address] [place] [place] [address] 06/13/2025 11:00 AM EDT Cardiac Studies Cardiac Studies, [facility] [address] [place] [address] 07/04/2025 4:00 PM EDT Office Visit Cardiology, [facility] [address] [place] [address] Bandar Avila MD [address] [place] [address] 08/03/2025 11:00 AM EDT [facility] [address] [facility] [id number] Coco Ivan PA-C [address] [place] [address] [place] [address] Scheduled Procedures Name Priority Associated Diagnoses Date/Ti [...] this encounter Medical Devices Implanted Type Area Cable Placer Device Identifier Shelf Expiration Date Model / Serial / Lot Cement Antibiotic Bone - [id number] Implanted:Qty: 3 on 04/28/2012 at [place] [facility] [place] Right: Hip VERONICA : ORTHOPAEDICS 11/19/2013 6197-9-010 / / [id number] Prostalac Acetabular Cup Implanted:Qty: 1 on 04/28/2012 at [place] [facility] [place] Right: Hip SUBHA & SUBHA DEPUY 05/19/2017 1541-42-320 / / [id number] Prostalac Hip Stem Size 105mm Std Offset Implanted:Qty: 1 on 04/28/2012 at [place] [facility] [place] Right: Hip SUBHA & SUBHA DEPUY 10/19/2021 1541-01-000 / / [id number] Description:Prostalac Hip St em Size 105mm Offset (Depuy) Ball Artic Wiliam Brn 32 Plus5 - [id number] Implanted:Qty: 1 on 04/28/2012 at [place] [facility] [place] Right: Hip JNJ : DEPUY ORTHOPAEDICS 10/19/2016 [id number] / / [id number] Rest Mod Prox Cone Body 23 +11 - [id number] Implanted:Qty: 1 on 04/14/2014 at [place] [facility] [place] Right: Hip VERONICA : ORTHOPAEDICS 10/19/2018 6276-1-123 / / [id number] Head Fem 28mm - [id number] Implanted:Qty: 1 on 04/14/2014 at [place] [facility] [place] Right: Hip VERONICA : ORTHOPAEDICS 08/19/2018 6570-0-228 / / [id number] Insert 28mm - [id number] Implanted:Qty: 1 on 04/14/2014 at [place] [facility] [place] Right: Hip VERONICA : ORTHOPAEDICS 02/16/2019 1236-2-848 / / [id number] Cable/Sle Beaded D/M 20 Vit - [id number] Implanted:Qty: 1 on 04/14/2014 at [place] [facility] [place] Right: Hip VERONICA : ORTHOPAEDICS 10/19/2017 6704-0-520 / / [id number] Cable/Sle Beaded D/M 20 Vit - [id number] Implanted:Qty: 1 on 04/14/2014 at [place] [facility] [place] Right: Hip VERONICA : ORTHOPAEDICS 10/19/2017 6704-0-520 / / [id number] Tritanium Revision Acetabular - [id number] Implanted:Qty: 1 on 04/14/2014 at [place] [facility] [place] Right: Hip VERONICA : ORTHOPAEDICS 05/19/2018 509-02-56E / / [id number] Screw Bone Osteolock 24 - [id number] Implanted:Qty: 1 on 04/14/2014 at [place] [facility] [place] Right: Hip VERONICA : ORTHOPAEDICS 02/16/2019 5260-5-024 / / [id number] Screw Bone Osteolock 35 - [id number] Implanted:Qty: 1 on 04/14/2014 at [place] [facility] [place] Right: Hip VERONICA : ORTHOPAEDICS 03/19/2017 5260-5-035 / / [id number] Liner 42mm - [id number] Implanted:Qty: 1 on 04/14/2014 at [place] [facility] [place] Right: Hip VERONICA : ORTHOPAEDICS 11/19/2018 626-00-42E / / [id number] Hip S Mod Conical Dis 15e555 - [id number] Implanted:Qty: 1 on 04/14/2014 at [place] [facility] [place] [place] Right: Hip VERONICA : ORTHOPAEDICS 12/17/2018 6276-7-017 / / [id number] documented as of this encounter Advance Directives [...] and were consensually agreed upon. Care Teams Patent Litigation Associate Relationship Specialty Start Date End Date Willie Epstein MD [address] [place] [place] [address] PCP - General Family Medicine 11/22/16 documented as of this encounter
--- OUTSIDE RECORDS SUMMARY | 2025-02-24 07:28 | External Medical Summary ---
Author Name Unknown Address Unknown Organization [id number]:[facility] [address] [place] [address] Laboratory Report Ordering Provider Test Date Status KAMARI HANKINS 01/28/2025 10:58:15 Final Observation Date Value Abnormality Reference (Units ) Status BUN 01/28/2025 10:58:15 40 Above high normal 6-20 (mg/dL) Final Creatinine 01/28/2025 10:58:15 3.4 Above high normal 0.5-1.0 (mg/dL) Final Glomerular filtration rate/1.73 sq M.predicted [Volume Rate/Area] in Serum, Plasma or Blood by Creatinine-based formula (CKD-EPI) 01/28/2025 10:58:15 14 Below low normal >=60 (mL/min) Final eGFR is calculated based on the CKD-EPI 2020 equation. Sodium 01/28/2025 10:58:15 139 135-146 (m mol/L) Final Potassium 01/28/2025 10:58:15 3.9 3.5-5.1 (m mol/L) Final Cl 01/28/2025 10:58:15 94 Below low normal 98- 107 (mmol/L) Final CO2 01/28/2025 10:58:15 30 22-32 (mmo l/L) Final Anion gap 01/28/2025 10:58:15 15 7-15 (mmol /L) Final Glucose 01/28/2025 10:58:15 119 70-120 (mg /dL) Final Albumin 01/28/2025 10:58:15 3.8 3.8-5.0 (g /dL) Final AST (Aspartate aminotransferase) 01/28/2025 10:58:15 19 10-35 (U/L) Fin al Alk Phos 01/28/2025 10:58:15 131 Above high normal 35 -130 (U/L) Final Bilirubin, Total 01/28/2025 10:58:15 0.5 <=1 .2 (mg/dL) Final Calcium 01/28/2025 10:58:15 8.7 8.4-10.2 ( mg/dL) Final Protein 01/28/2025 10:58:15 7.1 6.0-8.3 (g /dL) Final ALT (Alanine aminotransferase) 01/28/2025 10:58:15 15 10-35 (U/L) Chuck lunsford Performing Location [facility] [address] [place] [address]
--- OUTSIDE RECORDS SUMMARY | 2025-02-24 07:28 | External Medical Summary ---
Author Name Unknown Address Unknown Organization [id number]:[facility] - [address] [facility] [address] Laboratory Report Ordering Provider Test Date Status COLTEN,DURA 01/28/2025 10:58:15 Final Observation Date Value Abnormality Reference (Units ) Status Triglyceride 01/28/2025 10:58:15 94 <=174 ( mg/dL) Final Triglyceride Reference Range s (mg/dL):
<150 Acceptable
150-174 Borderline high
175-499 High
>=500 Very high Cholesterol 01/28/2025 10:58:15 150 <200 (mg /dL) Final Total Cholesterol Reference Ranges (mg/dL):
<200 Desirable
200-239 Borderline high
>=240 High HDL 01/28/2025 10:58:15 69 >49 (mg/dL ) Final HDL Cholesterol Reference Ra nges (mg/dL):
>=60 High (Desirable)
<50 Low (Undesirable) For Females
<40 Low (Undesirable) For Males NON-HDL CHOLESTEROL 01/28/2025 10:58:15 81 <=159 (mg/dL) Final Non-HDL Cholesterol Referenc e Range (mg/dL):
<100 Target level for high risk ASCVD patient
<130 Optimal for general population
130-159 Near optimal for general population
160-189 Borderline High
190-219 High
>=220 Very High LDL, (calculated) 01/28/2025 10:58:15 62 <= 129 (mg/dL) Final LDL Cholesterol Reference Ra nges (mg/dL):
<70 Target level for high risk ASCVD patient
<100 Optimal for general population
100-129 Near optimal for general population
130-159 Borderline high
160-189 High
>=190 Very high
Patient has high LDL cholesterol. Consider screening for Familial Hypercholesterolemia. Performing Location [facility] - [address] [facility] [address]
--- OUTSIDE RECORDS SUMMARY | 2025-02-24 07:28 | External Medical Summary | Summary of Care ---
Author Name Unknown Organization [facility] Address [address] [place] [address] Phone [phone] Care Team Providers Care [employer] Principal Name Role Phone Willie Epstein MD Primary Care Provider + Reason for Visit * Reason Onset Date Comments Hospital Follow-Up 12/24/2024 YOSEF ([facility]) Encounter Details Date Type Department Care Team ([facility] st Contact Info) Description 12/24/2024 Telephone [facility] [address] [place] [address] Ruby Palacios, AMANDA Hospital Follow-Up (YOSEF ([facility])) Allergies Active Allergy Reactions Criticality Noted [...] RENAL MULTIVITAMIN/ZINC PO TABS None Entered Active Articulate TechnologiesTOUCH ULTRASOFT LANCETS MISCIndications:Ty pe 2 diabetes mellitus with hemoglobin A1c goal of less than 8.0% ([facility]) Use as directed 2 times a day. 1 Box Dosing Unit 11 7 Active cinacalcet (SENSIPAR) 30 MG Tablet Take 1 Tab by mouth daily with dinner. 90 Tab 3 8 Active Blood Glucose Monitoring Suppl (iRe[employer]Q ULTRA 2) w/Device KIT Use to check blood sugar 2 times a day; E11.9. 1 Kit 0 Active Glucose Blood (QiniuUCH ULTRA BLUE) STRP Use to check blood [...] adult exam 08/04/2019 Overview (03/04/2024): 03/12 EGD [facility]-normal esoph, gastritis. Small hiatal hernia. Gastric 10mm diverticula 01/09 DEXA +osteoporosis. NEED discuss. 11/10 colon +tubular adenomas. 04/09 mult compression fractures. 05/2018 many polyps Therapeutic opioid induced constipation 08/04/20 ESRD on dialysis 09/08/2016 Overview (02/26/2021): 03/05 HCP forms given-wants . NEEDS further Living will 2017 consider transplant needs 20lb -[facility]? T,R, S. Since January 2013. Spondylolisthesis [...] 04/13/2021 Overview (04/09/2021): Mult levels 04/09 CT [facility] + lumbar Respiratory symptoms 01/08/2020 021 Fever of unknown origin (FUO) 01/07/2020 02/26/2021 Respiratory infection 01/07/20202020 Cellulitis 06/28/2016 09/08/2016 Abnormal vaginal bleeding 02/12/2016 Cellulitis 02/07/2016 09/08/2016 UTI (urinary tract infection), bacterial 04/19/2014 05/02/2014 Hypotension 04/15/2014 05/02/2014 Compression of lumbar vertebra 02/03/2013 06/07/2021 Overview (04/09/2021): Mult levels noted 04/[address] [facility] [address] also thoracic CKD (chronic kidney [...] 08/25/200909/06 Overview (08/25/2009): Modified 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 * Telephone Encounter - Ruby Palacios RN - 12/24/2024 11:23 AM EST Transitions of Care Note Reason for Referral:Recent Admission Phone visit for follow up: YOSEF #1 Admitted to: [facility], Date: 12/21/2024 Discharged to: Home, Date: 12/23/2024 Diagnosis driving hospitalization: Influenza A Pneumonia, Acute on Chronic Hypoxic Respiratory Failure Attempted Phone Call First Attempt Call Outcome Left Voicemail/Message Message left on voicemail for patient. When they call back please transfer them to me at [phone]. If you are unable to reach me or my voicemail please route this message back to me. Thank you. Transitions of Care Note Reason for Referral:Recent Admission Phone visit for follow up: YOSEF #2 Admitted to: [facility], Date: 12/21/2024 Discharged to: Home, Date: 12/23/2024 Diagnosis driving hospitalization: Influenza A Pneumonia, Acute on Chronic Hypoxic Respiratory Failure Source/Contact: Patient Patient is requesting a call back at 2 pm today. Not able to talk right now. New medications: Benzonatate, Guaifenesin, Oseltamivir Ruby Palacios RN Transitions of Care Note Reason for Referral:Recent Admission Phone visit for follow up: YOSEF #3 Admitted to: [facility], Date: 12/21/2024 Discharged to: Home, Date: 12/23/2024 Diagnosis driving hospitalization: Influenza A Pneumonia, Acute on Chronic Hypoxic Respiratory Failure Attempted Phone Call Second Attempt/Third attempt Call Outcome Left Voicemail/Message documented in this encounter Plan of Treatment Upcoming Encounters Date Type Department Care Team (Late st Contact Info) Description 12/29/2024 2:00 PM EDT Office Visit [facility] [address] [place] [address] Coco Montanez DO [address] [place] [address] 01/28/2025 11:40 AM EDT Office Visit Pharmacy, [facility] [address] [place] [address] [facility] [address] [place] [address] 03/22/2025 1:40 PM EDT Office Visit [facility] [address] [place] [address] Willie Epstein MD [address] [place] [address] 05/23/2025 3:00 PM EDT Office Visit Dermatology [address] [place] [address] Coco Ivan PA-C [address] [place] [address] [place] [address] 06/13/2025 11:00 AM EDT Cardiac Studies Cardiac Studies, [facility] [address] [place] [address] 07/04/2025 4:00 PM EDT Office Visit Cardiology, [facility] [address] [place] [address] Bandar Avila MD [address] [place] [address] [place] [address] Scheduled Procedures Name Priority Associated Diagnoses Date/Ti [...] this encounter Medical Devices Implanted Type Area Director Style Device Identifier Shelf Expiration Date Model / Serial / Lot Cement Antibiotic Bone - [id number] Implanted:Qty: 3 on 04/28/2012 at [place] [facility] Right: Hip VERONICA : ORTHOPAEDICS 11/19/2013 6197-9-010 / / [id number] Prostalac Acetabular Cup Implanted:Qty: 1 on 04/28/2012 at [place] [facility] Right: Hip SUBHA & SUBHA DEPUY 05/19/2017 1541-42-320 / / [id number] Prostalac Hip Stem Size 105mm Std Offset Implanted:Qty: 1 on 04/28/2012 at [place] [facility] Right: Hip SUBHA & SUBHA DEPUY 10/19/2021 1541-01-000 / / [id number] Description:Prostalac Hip St em Size 105mm Offset (Depuy) Ball Artic Wiliam Brn 32 Plus5 - [id number] Implanted:Qty: 1 on 04/28/2012 at [place] [facility] Right: Hip JNJ : DEPUY ORTHOPAEDICS 10/19/2016 [id number] / / [id number] Rest Mod Prox Cone Body 23 +11 - [id number] Implanted:Qty: 1 on 04/14/2014 at [place] [facility] Right: Hip VERONICA : ORTHOPAEDICS 10/19/2018 6276-1-123 / / [id number] Head Fem 28mm - [id number] Implanted:Qty: 1 on 04/14/2014 at [place] [facility] Right: Hip VERONICA : ORTHOPAEDICS 08/19/2018 6570-0-228 / / [id number] Insert 28mm - [id number] Implanted:Qty: 1 on 04/14/2014 at [place] [facility] Right: Hip VERONICA : ORTHOPAEDICS 02/16/2019 1236-2-848 / / [id number] Cable/Sle Beaded D/M 20 Vit - [id number] Implanted:Qty: 1 on 04/14/2014 at [place] [facility] Right: Hip VERONICA : ORTHOPAEDICS 10/19/2017 6704-0-520 / / [id number] Cable/Sle Beaded D/M 20 Vit - [id number] Implanted:Qty: 1 on 04/14/2014 at [place] [facility] Right: Hip VERONICA : ORTHOPAEDICS 10/19/2017 6704-0-520 / / [id number] Tritanium Revision Acetabular - [id number] Implanted:Qty: 1 on 04/14/2014 at [place] [facility] Right: Hip VERONICA : ORTHOPAEDICS 05/19/2018 509-02-56E / / [id number] Screw Bone Osteolock 24 - [id number] Implanted:Qty: 1 on 04/14/2014 at [place] [facility] Right: Hip VERONICA : ORTHOPAEDICS 02/16/2019 5260-5-024 / / [id number] Screw Bone Osteolock 35 - [id number] Implanted:Qty: 1 on 04/14/2014 at [facility] Right: Hip VERONICA : ORTHOPAEDICS 03/19/2017 5260-5-035 / / [id number] Liner 42mm - [id number] Implanted:Qty: 1 on 04/14/2014 at [place] [facility] Right: Hip VERONICA : ORTHOPAEDICS 11/19/2018 626-00-42E / / [id number] Hip S Mod Conical Dis 71v673 - [id number] Implanted:Qty: 1 on 04/14/2014 at [place] [facility] Right: Hip VERONICA : ORTHOPAEDICS 12/17/2018 6276-7-017 / / [id number] documented as of this encounter Advance Directives [...] and were consensually agreed upon. Care Teams [employer] Principal Relationship Specialty Start Date End Date Willie Epstein MD [address] [place] [address] PCP - General Family Medicine 11/22/16 documented as of this encounter
--- OUTSIDE RECORDS SUMMARY | 2025-02-24 07:28 | External Medical Summary | Summary of Care ---
Author Name Unknown Organization [facility] Address [address] [place] [address] Phone [phone] Care Team Providers Care Licensed Clinician Name Role Phone Willie Epstein MD Primary Care Provider + Reason for Visit * Reason Comments Hospital Follow-Up Pt here for hospital f/u apt, and discharged on 12/23 Encounter Details Date Type Department Care Team ([facility] st Contact Info) Description 01/03/2025 2:00 PM EDT Office Visit Family [facility] [address] [place] [address] Coco Montanez DO [address] [place] [address] Influenzal pneumonia*; Malaise and fatigue; SOB (shortness of breath) [...] as of this encounter (statuses as of 01/03/2025) Medications INSULIN SYRINGE-NEEDLE U-100 30G X 1/2" [...] 11/07/19 18 Active Blood Glucose Monitoring Suppl (WHMSOFTUCH ULTRA 2) w/Device KIT Use to check blood sugar 2 times a day; E11.9. 1 Kit 10/22/19 20 Active Glucose Blood (Bespoke InnovationsTOUCH ULTRA BLUE) STRP Use to check blood [...] A DAY AT BEDTIME 90 Tablet 10/29/19 Active dexAMETHasone 6 MG Oral Tablet (Decadron) [...] as needed for Nausea or Vomiting. 11/04/19 Active Trulicity 0.75 MG/0.5ML Subcutaneous Solution Auto-injector (Dulaglutide)Indic ations:Type 2 diabetes mellitus with hemoglobin A1c goal of less than 8.0% ([facility]) INJECT UNDER THE SKIN 0.75 MG ONCE A WEEK 6 mL 1 11/08/19 Active oxyCODONE HCl 15 MG Oral Tablet (Roxicodone) Take 1 Tablet by mouth every 8 hours as needed for Pain, Severe. 21 Tablet 12/09/19 25 Active Buprenorphine 15 MCG/HR Transdermal Patch Weekly (Butrans)Indicatio ns:MEDICATION USE AGREEMENT,Spondylo listhesis of lumbosacral region,Lumbar back pain Place 15 mcg topically on the skin once a week. 4 Patch 12/10/19 Active Additional Information Patient not taking.Reported on 01/03/2025 guaiFENesin ER 600 MG Oral Tablet Extended Release 12 Hour (Humibid LA) Take 1 Tablet by mouth in the morning and 1 Tablet before bedtime. 12/24/19 Active documented as of this encounter (statuses as of 01/03/2025) Active Problems Problem Noted Date Diagnosed Date [...] exam 08/04/2019 Overview (03/04/2024): 03/12 EGD [facility]-normal esoph, gastritis. Small hiatal hernia. Gastric 10mm diverticula 01/09 DEXA +osteoporosis. NEED discuss. 11/10 colon +tubular adenomas. 04/09 mult compression fractures. 05/2018 many polyps Therapeutic opioid induced constipation 08/04/20 ESRD on dialysis 09/08/2016 Overview (02/26/2021): 03/05 HCP forms given-wants . NEEDS further Living will 2017 consider transplant needs 20lb -HD [facility]? T,R, S. Since January 2013. Spondylolisthesis [...] as of this encounter (statuses as of 01/03/2025) Resolved Problems Problem Noted Date Diagnosed Date Resolved Date Thoracic compression fracture 04/09/2021 04/13/2021 Overview (04/09/2021): Mult levels 04/09 CT [facility] + lumbar Respiratory symptoms 01/08/2020 021 Fever of unknown origin (FUO) 01/07/2020 02/26/2021 Respiratory infection 01/07/20202020 Cellulitis 06/28/2016 09/08/2016 Abnormal vaginal bleeding 02/12/2016 Cellulitis 02/07/2016 09/08/2016 UTI (urinary tract infection), bacterial 04/19/2014 05/02/2014 Hypotension 04/15/2014 05/02/2014 Compression of lumbar vertebra 02/03/2013 06/07/2021 Overview (04/09/2021): Mult levels noted 04/[address] [facility] [address] also thoracic CKD (chronic kidney disease), [...] 08/25/200909/06 Overview (08/25/2009): 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 Chief Complaint Patient presents with Hospital Follow-Up Pt here for hospital f/u apt, and discharged on 12/23 There are no exam notes on file for this visit. HPI: This is a 69 year old female with PMHx as below presents with hospital follow up Admitted to: [facility], Date: 12/21/2024 Discharged to: Home, Date: 12/23/2024 Diagnosis driving hospitalization: Influenza A Pneumonia, Acute on Chronic Hypoxic Respiratory Failure, sepsis Appetite not good Continues to feel unwell, fatigue, not eating, cough 10/2024 - started with covid and now with influ pna Health Maintenance Due Topic Date Due Zoster Vaccines (1 of 2) Never done Adult Wellness Visit Never done Diabetic Eye Exam 11/15/2023 *BISPHONATE OR OTHER ACCEPTABLE MEDICATION NEEDED FOR OSTEOPOROSIS (REFER TO SMARTSET #1146) Never done COVID-19 Vaccine () 06/20/2024 Colorectal Cancer Screening 11/09/2024 Patient Active Problem List Diagnosis Type 2 diabetes mellitus with hemoglobin A1c goal of less than 8.0% (HCC) Hypertensive kidney disease with end-stage renal disease (HCC) Dyslipidemia, goal LDL below 70 Vitamin D deficiency History of osteomyelitis History of pulmonary embolism MEDICATION USE AGREEMENT Anemia in ESRD (end-stage renal disease) (HCC) Spondylolisthesis of lumbosacral region ESRD on dialysis (HCC) H/O bilateral hip replacements Family history of breast cancer Type 2 diabetes mellitus with ESRD (end-stage renal disease) (HCC) Long-term insulin use (HCC) Well adult exam Therapeutic opioid induced constipation Hypertensive kidney disease with end-stage renal disease (HCC) Psoriasis Age-related osteoporosis without current pathological fracture Hx of nonmelanoma skin cancer SCC (squamous cell carcinoma), hand, right Opiate dependence, continuous ([facility]) Nonrheumatic aortic valve stenosis Nonrheumatic mitral valve regurgitation PVD (peripheral vascular disease) (HCC) Nonrheumatic mitral valve stenosis Ulcer of right lower extremity, limited to breakdown of skin (HCC) Current Outpatient Medications Medication Sig Dispense Refill INSULIN SYRINGE-NEEDLE U-100 30G X 1/2" 1 ML MISC Use as directed 1 Box of 100 11 RENAL MULTIVITAMIN/ZINC PO TABS None Entered Bespoke InnovationsTOUCH ULTRASOFT LANCETS MISC Use as directed 2 times a day. 1 Box Dosing Unit 11 cinacalcet (SENSIPAR) 30 MG Tablet Take 1 Tab by mouth daily with dinner. 90 Tab 3 Blood Glucose Monitoring Suppl (WHMSOFTUCH ULTRA 2) w/Device KIT Use to check blood sugar 2 times a day; E11.9. 1 Kit 0 Glucose Blood (WHMSOFTUCH ULTRA BLUE) STRP Use to check blood sugar 2 times a day; E11.9. 200 Box Dosing Unit 3 Albuterol Sulfate HFA 108 (90 Base) MCG/ACT Inhalation Aerosol Solution TAKE 2 PUFFS BY MOUTH EVERY6 HOURS NEEDED FOR WHEEZE 18 g 0 Betamethasone Dipropionate 0.05 % External Ointment APPLY 2X DAILY (OR MORE IF ITCHY INSTEAD OF SCRATCHING) TO AFFECTED PSORIASIS SPOTS ON ARMS/LEGS UNTIL RESOLVED 50 g 1 Aspirin 81 MG Oral Tablet Chewable Take 1 Tablet by mouth in the morning. ON HOLD OF 03/02/24. Gabapentin 100 MG Oral Capsule (Neurontin) TAKE 1 CAPSULE BY MOUTH DAILY + 1 DOSE EXTRA AFTER DIALYSIS EVERY 3 DAYS. 135 Capsule 2 rOPINIRole HCl 2 MG Oral Tablet (Requip) TAKE 1 TABLET BY MOUTH AT BEDTIME. 1-3 HOURS BEFORE BEDTIME WITH FOOD FOR RESTLESS LEGS 90 Tablet 3 Citalopram Hydrobromide 20 MG Oral Tablet (CeleXA) TAKE 1 TABLET BY MOUTH EVERY DAY 90 Tablet 1 Triamcinolone Acetonide 0.1 % External Ointment (Aristocort) APPLY 2X DAILY DURING WEEK (OFF ON WEEKENDS) TO PSORIASIS UNDER BREASTS UNTIL RESOLVED, THEN WHEN FLARING 454 g 0 Simvastatin 20 MG Oral Tablet (Zocor) TAKE ONE TABLET BY MOUTH ONCE A DAY AT BEDTIME 90 Tablet 0 Midodrine HCl 2.5 MG Oral Tablet (Proamatine) Take 2 Tablets by mouth in the morning and 2 Tablets at noon and 2 Tablets before bedtime. Trulicity 0.75 MG/0.5ML Subcutaneous Solution Auto-injector (Dulaglutide) INJECT UNDER THE SKIN 0.75 MG ONCE A WEEK 6 mL 1 dexAMETHasone 6 MG Oral Tablet (Decadron) Take 1 Tablet by mouth in the morning. Ondansetron 4 MG Oral Tablet Disintegrating (Zofran) Place 1 Tablet on tongue daily as needed for Nausea or Vomiting. oxyCODONE HCl 15 MG Oral Tablet (Roxicodone) Take 1 Tablet by mouth every 8 hours as needed for Pain, Severe. 21 Tablet 0 Buprenorphine 15 MCG/HR Transdermal Patch Weekly (Butrans) Place 15 mcg topically on the skin once a week. (Patient not taking: Reported on 01/03/2025) 4 Patch 0 guaiFENesin ER 600 MG Oral Tablet Extended Release 12 Hour (Humibid LA) Take 1 Tablet by mouth in the morning and 1 Tablet before bedtime. No current facility-administered medications for this visit. Past Medical History: Diagnosis Date Age-related osteoporosis without current pathological fracture 12/19/202201/09 DEXA Benign neoplasm of colon 03/23/07 hyperplastic polyp--repeat 3 years Benign neoplasm of colon 02/07/12 adenomatous polyp Calculus of kidney now s/p stents - sees Dr. Angel in [place] for Urology DM type 2, goal HbA1c < 8% ([facility]) age 37 started as gestational diabetes, goal adjusted d/t reactive hypoglycemia from insulin over time. Dyslipidemia, goal LDL below 70 ESRD on dialysis ([facility]) 09/08/2016 Oncjose--HD [facility] [place] [facility]? T,R, S. Since January 2013. Family [...] fracture (HCC) 04/09/2021 Mult levels 04/09 CT [place] + lumbar Unilateral inguinal hernia with gangrene required urgent repair - had bowel obstruction Vitamin D deficiency Well adult exam 08/04/201905/2018 many polyps Past Surgical History: Procedure Laterality Date ART EMBO AX/BRACH/INNOM/SUBCL 04/15/2014 THROMBECTOMY EMBOLECTOMY AXILLARY ARTERY ARM INCISION performed by Jeffrey Sutherland MD at [facility] ARTHROCENT ASP &/OR INJ MAJOR JX/BURSA W/O US 07/20/2013 ARTHROCENTESIS OR INJECTION MAJOR JOINT performed by Jason Ruffin MD at [facility] AV ACCESS, DIRECT ANASTOMOSIS 04/15/2014 ARTERIOVENOUS ANASTOMOSIS OPEN DIRECT ANY SITE performed by Jeffrey Sutherland MD at [facility] BREAST BIOPSY Left benign DELIVERY x 2 COLONOSCOPY 03/23/2007 normal, repeat 2009 COLONOSCOPY 02/07/2012 adenomatous polyp COLONOSCOPY, DIAGNOSTIC (RECTUM) 06/03/2018 adenomatous polyps, repeat 2 yrs/[facility] COLONOSCOPY, DIAGNOSTIC (RECTUM) 11/09/2021 adenomatous polyps, fair prep, repeat 3 yrs / [facility] CYSTOSCOPY 06/21/2010 CYSTOSCOPY 12/04/2011 stent placement CYSTOSCOPY 01/22/2012 ull CYSTOSCOPY/STONE REMOVAL 06/14/2010 left ureteroscopy,removal nephrostomy tube,double J stent EGD, FLEXIBLE, W/BIOPSY 12/15/2012 inflammation to stomach INFORMATION laporoscopy X4 for endometriosis INSER MILA CAT,W/O PUMP;5YR/OLD 05/01/2012 INSERT TUNNELED CENTRAL VENOUS CATHETER* performed by Mark Otero MD at [facility] INSER MILA CAT,W/O PUMP;5YR/OLD 04/16/2014 INSERT TUNNELED CENTRAL VENOUS CATHETER AGE 5 OR OLDER performed by Jeffrey Sutherland MD at [facility] INSERT CANNULA, ARTERY-VEIN, PRESS MAINTAINER 07/24/2012 ARTERIOVENOUS ANASTOMOSIS OPEN FOREARM VEIN performed by Juliane Real MD at [facility] IR VENOUS FISTULOGRAM Right 01/12/2021 Dr Mena cleared stenosis AV Fistula RUE. [facility] OTHER 01/02/2024 right venous aneurysm resection w/prosthetic graft. Dr Michael Mena, [facility] RECONSTRUCTION OF HIP SOCKET 04/28/2012 ACETABULOPLASTY RESECTION FEMORAL HEAD GIRDLESTONE performed by Jason Ruffin MD at [facility] REMOV MILA JAQUELINE FRANCISCA ACC DEV,WITH 07/08/2012 REMOVAL TUNNELED CENTRAL VENOUS ACCESS W/WO PORT performed by Geremias Sánchez MD at [facility] REMOVAL OF DEEP SUPPORT IMPLANT 04/14/2014 REMOVAL OF IMPLANT DEEP performed by Jason Ruffin MD at [facility] REMOVAL OF KIDNEY STONE, OVER 2CM 06/18/2010 stents placed REMOVE GALLBLADDER REMOVE/INSERT DRUG IMPLANT 04/28/2012 INSERT AND/OR REMOVAL NON BIODEGRADABLE DRUG DELIVERY IMPLANT performed by Jason Ruffin MD at [facility] REMOVE/INSERT DRUG IMPLANT 04/14/2014 INSERT AND/OR REMOVAL NON BIODEGRADABLE DRUG DELIVERY IMPLANT performed by Jason Ruffin MD at [facility] REPAIR INITIAL INGUINAL HERNIA REDUCIBLE AGE 5 OR MORE 06/2008 incarcerated left inguinal hernia with secondary infection requiring a wound vac. REVISE HIP SURGERY TO TOTAL REPLACE 04/14/2014 CONVERSION PREVIOUS HIP SURGERY TO TOTAL HIP performed by Jason Ruffin MD at [facility] UNLISTED LAPAROSCOPY;HERNIA left 1994 UROLOGY SURGERY PROCEDURE NEC x4 total at [place] - B/L ureters, stents placed Review of patient's allergies indicates: Allergen Reactions Nitrofurantoin Hives Sulfa Antibiotics Edema face/lips/tongue Cefazolin Unknown Other Reaction(s): CAN'T REMEMBER Medrol [Methylprednisolone] Other (Please comment) Side effects c/w med (sweating, heart racing etc) Nitrofurantoin Monohyd Macro Hives Pantoprazole Unknown Other Reaction(s): CAN'T REMEMBER Family History Problem Relation Name Age of Onset Hypertension Mother Arthritis Mother RA Cancer Father prostate, lung Cancer Sister 55 breast COPD Sister Breast Cancer Sister Family Status Relation Status Fa at age 68 lung cancer, smoker Obdulio Alive Obdulio Alive Son Alive Mo Sis Social History Socioeconomic History Marital status: Spouse name: Pacheco Number of children: 3 Years of education: Not on file Highest education level: Not on file Occupational History 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 3 kids, EVeryly 8 (mary), Matthew 5 (with them) Other Topics Concern Service No Blood Transfusions Yes Caffeine Concern No Occupational Exposure No Hobby Hazards No Sleep Concern No Stress Concern No Weight Concern Yes Special Diet Yes Back Care No Exercise Yes Comment: walks 3 times weekly Bike Helmet Not Asked Seat Belt Yes Self-Exams Yes Social History Narrative Likes-time with family. Social Needs Financial Resource Strain: Not on file Food Insecurity: No Food Insecurity (04/30/2023) Hunger Vital Sign Worried About Running Out of Food in the Last Year: Never true Ran Out of Food in the Last Year: Never true Transportation Needs: Not on file Social Connections: Not on file Housing Stability: Not on file Review of Systems: As per HPI all other ROS negative. Wt Readings from Last 3 Encounters: 09/20/24 174 lb (78.9 kg) 08/03/24 173 lb (78.5 kg) 05/07/24 175 lb (79.4 kg) Results for orders placed or performed in visit on 08/05/24 HEMOGLOBIN A1C Result Value Ref Range Hemoglobin A1C 4.5 4.0 - 5.6 % Estimated Average Glucose 82 <126 mg/dL URIC ACID Result Value Ref Range Uric Acid 1.8 (L) 2.4 - 5.7 mg/dL ERYTHROCYTE SEDIMENTATION RATE (ESR) Result Value Ref Range ESR 39 (H) <30 mm/hour CRP (INFLAMMATORY MARKER) Result Value Ref Range CRP (Inflammatory Marker) 13 (H) <=5 mg/L PAIN MANAGEMENT DRUG PANEL, URINE W/ INTERPRETATION Result Value Ref Range Pain Management Interpretation Based on the medication information provided: The positive oxycodone screening result is CONSISTENT with oxycodone use. Confirmatory testing is available upon request. Amphetamines Screen, U Negative Negative Benzodiazepines Screen, U Negative Negative Cannabinoids Screen, U Negative Negative Cocaine Metabolite Screen, U Negative Negative Fentanyl Screen, U Negative Negative Hydrocodone Screen, U Negative Negative Methadone Metabolite Screen, U Negative Negative Morphine/Codeine Screen, U Negative Negative Oxycodone Screen, U Positive (A) Negative Specimen Validity Interpretation Normal Creatinine, U 25 mg/dL ANEMIA CBC Result Value Ref Range WBC 4.94 4.00 - 10.80 K/uL RBC 4.06 3.85 - 5.15 M/uL HGB 12.8 12.0 - 15.3 g/dL HCT 42.5 36.0 - 45.2 % MCV 104.7 81.5 - 97.5 fL MCH 31.5 27.0 - 34.0 pg MCHC 30.1 32.0 - 36.0 g/dL RDW 17.6 11.5 - 15.5 % PLT 129 (L) 140 - 400 K/uL MPV 10.0 6.6 - 11.1 fL nRBCs 0 <=0 /100 WBCs DIFFERENTIAL, AUTOMATED Result Value Ref Range WBC 4.94 4.00 - 10.80 K/uL Neutrophils % 64.8 40.0 - 75.0 % Lymphocytes % 17.2 (L) 18.0 - 42.0 % Monocytes % 12.1 (H) 1.0 - 11.0 % Eosinophils % 5.1 0.0 - 6.0 % Basophils % 0.6 0.0 - 2.0 % Immature Granulocytes % 0.2 0.0 - 2.0 % Absolute Neutrophils 3.20 1.80 - 7.70 K/uL Absolute Lymphocytes 0.85 (L) 1.00 - 4.80 K/ul Absolute Monocytes 0.60 0.00 - 1.10 K/uL Absolute Eosinophils 0.25 0.00 - 0.70 K/uL Absolute Basophils 0.03 0.00 - 0.20 K/uL Absolute Immature Granulocytes 0.01 0.00 - 0.20 K/uL LYME DISEASE ANTIBODY SCREEN Result Value Ref Range Lyme Disease Antibody Screen Negative Negative *Note: Due to a large number of results and/or encounters for the requested time period, some results have not been displayed. A complete set of results can be found in Results Review. OBJECTIVE: Physical Exam: BP 126/50 | Pulse 101 | Temp 97.8 °F (36.6 °C) (Tympanic) | Resp 16 | LMP 11/16/2000 General: alert and restless Heart: regular rate & rhythm and pos RICH Lungs: lungs clear to auscultation, decreased breath sounds at bases bilaterally Extremities: no joint deformities, effusion, or inflammation, no edema Influenzal pneumonia (Primary) - XR CHEST 2 VIEWS - CBC WITH WBC DIFFERENTIAL; Future; Expected date: 01/03/2025 - COMPREHENSIVE METABOLIC PANEL; Future; Expected date: 01/03/2025 - BNP, NT-PRO; Future; Expected date: 01/03/2025 Malaise and fatigue - CBC WITH WBC DIFFERENTIAL; Future; Expected date: 01/03/2025 - COMPREHENSIVE METABOLIC PANEL; Future; Expected date: 01/03/2025 - BNP, NT-PRO; Future; Expected date: 01/03/2025 SOB (shortness of breath) - CBC WITH WBC DIFFERENTIAL; Future; Expected date: 01/03/2025 - COMPREHENSIVE METABOLIC PANEL; Future; Expected date: 01/03/2025 - BNP, NT-PRO; Future; Expected date: 01/03/2025 Recheck labs, xray. Recheck 2 weeks. Follow Up: Return in about 2 weeks (around 01/17/2025), or if symptoms worsen or fail to improve, for Clinic Visit. | For: Clinic Visit | Check-out note: Please print labs Follow up Coco Montanez DO documented in this encounter Plan of Treatment Upcoming Encounters Date Type Department Care Team (Late st Contact Info) Description 01/22/2025 1:40 PM EDT Office Visit [facility] [address] [place] [address] Coco oMntanez DO [address] [place] [address] 01/28/2025 11:40 AM EDT Office Visit Pharmacy, [facility] [address] [place] [address] [facility] [address] [place] [address] 03/22/2025 1:40 PM EDT Office Visit [facility] [address] [place] [address] Willie Epstein MD [address] [place] [address] 06/13/2025 11:00 AM EDT Cardiac Studies Cardiac Studies, [facility] [address] [place] [address] 07/04/2025 4:00 PM EDT Office Visit Cardiology, [facility] [address] [place] [address] Bandar Avila MD [address] [place] [address] 08/03/2025 11:00 AM EDT Office Visit Dermatology [address] [place] [phone] Coco Ivan PA-C [address] [place] [address] [place] [address] Scheduled Orders Name Type Priority Associated Diagnoses Orde r Schedule XR CHEST 2 VIEWS Medical Imaging Routine Influenzal pneumonia Ordered: 01/03/2025 CBC WITH WBC DIFFERENTIAL Lab Routine Influenzal pneumonia Malaise and fatigue SOB (shortness of breath) Expected: 01/03/2025 (Approximate), Expires: 01/03/2026 COMPREHENSIVE METABOLIC PANEL Lab Routine Influenzal pneumonia Malaise and fatigue SOB (shortness of breath) Expected: 01/03/2025 (Approximate), Expires: 01/03/2026 BNP, NT-PRO Lab Routine Influenzal pneumonia Malaise and fatigue SOB (shortness of breath) Expected: 01/03/2025 (Approximate), Expires: 01/03/2026 Scheduled Procedures Name Priority Associated Diagnoses Date/Ti [...] this encounter Medical Devices Implanted Type Area Note Specialist Device Identifier Shelf Expiration Date Model / Serial / Lot Cement Antibiotic Bone - [id number] Implanted:Qty: 3 on 04/28/2012 at [place] [facility] Right: Hip VERONICA : [employer] 11/19/2013 6197-9-010 / / [id number] Prostalac Acetabular Cup Implanted:Qty: 1 on 04/28/2012 at [place] [facility] Right: Hip SUBHA & SUBHA DEPUY 05/19/2017 [id number] / / [id number] Prostalac Hip Stem Size 105mm Std Offset Implanted:Qty: 1 on 04/28/2012 at [place] [facility] Right: Hip SUBHA & SUBHA DEPUY 10/19/2021 1541-01-000 / / [id number] Description:Prostalac Hip St em Size 105mm Offset (Depuy) Ball Artic Wiliam Brn 32 Plus5 - [id number] Implanted:Qty: 1 on 04/28/2012 at [place] [facility] Right: Hip JNJ : DEPUY [employer] 10/19/2016 [id number] / / [id number] Rest Mod Prox Cone Body 23 +11 - [id number] Implanted:Qty: 1 on 04/14/2014 at [place] [facility] Right: Hip VERONICA : [employer] 10/19/2018 6276-1-123 / / [id number] Head Fem 28mm - [id number] Implanted:Qty: 1 on 04/14/2014 at [place] [facility] Right: Hip [employer]ICA : [employer] 08/19/2018 6570-0-228 / / [id number] Insert 28mm - [id number] Implanted:Qty: 1 on 04/14/2014 at [place] [facility] Right: Hip [employer]ICA : [employer] 02/16/2019 1236-2-848 / / [id number] Cable/Sle Beaded D/M 20 Vit - [id number] Implanted:Qty: 1 on 04/14/2014 at [place] [facility] Right: Hip [employer]ICA : [employer] 10/19/2017 6704-0-520 / / [id number] Cable/Sle Beaded D/M 20 Vit - [id number] Implanted:Qty: 1 on 04/14/2014 at [place] [facility] Right: Hip [employer]ICA : [employer] 10/19/2017 6704-0-520 / / [id number] Tritanium Revision Acetabular - [id number] Implanted:Qty: 1 on 04/14/2014 at [facility] Right: Hip [employer]ICA : [employer] 05/19/2018 [id number] / / [id number] Screw Bone Osteolock 24 - [id number] Implanted:Qty: 1 on 04/14/2014 at [place] [facility] Right: Hip [employer]ICA : [employer] 02/16/2019 5260-5-024 / / [id number] Screw Bone Osteolock 35 - [id number] Implanted:Qty: 1 on 04/14/2014 at [place] [facility] Right: Hip [employer]ICA : [employer] 03/19/2017 5260-5-035 / / [id number] Liner 42mm - [id number] Implanted:Qty: 1 on 04/14/2014 at [place] [facility] Right: Hip [employer]ONICA : [employer] 11/19/2018 [id number] / / [id number] Hip S Mod Conical Dis [id number] - [id number] Implanted:Qty: 1 on 04/14/2014 at [place] [facility] Right: Hip [employer] : [employer] 12/17/2018 6276-7-017 / / [id number] documented as of this encounter Visit Diagnoses Diagnosis Influenzal pneumonia- Primary Influenza with pneumonia Malaise and fatigue Other [...] and were consensually agreed upon. Care Teams Licensed Clinician Relationship Specialty Start Date End Date Willie Epstein MD [address] [place] [address] PCP - General Family Medicine 11/22/16 documented as of this encounter
--- NOTE | 2025-02-24 07:29 | Emergency Department Note ---
Impression & Plan Aspiration pneumonia, Opiate overdose, End stage renal disease on dialysis ED Provider Note NAME: JAIMEE VENEGAS AGE: 70 SEX: F : 1955 ARRIVES VIA: Ambulance INFORMANT: Patient, EMS/nursing report ED PROVIDER(S): Elias Joe MD CHIEF COMPLAINT: Syncope MEDICAL DECISION MAKING: Patient presents due to concern for syncope. IV was established and blood work was obtained. BSG prior to arrival was in the 190s. Patient was ordered 250 IV fluid bolus. Patient was also ordered midodrine 2.5 the patient is supposed to take this as needed for systolics less than 100. Patient was noted to be hypoxic into the 60s with a good waveform. Patient was placed on supplemental nasal cannula. Given the patient does have relatively pinpoint pupils the patient was ordered IV Narcan 0.4 mg. The patient still having some restlessness was given 0.25 of Ativan but was concerned about the patient's presentation did not want over sedate. I did speak the on-call hospital service Terra Gomez PA-C and the patient was admitted by Dr. Sifuentes. I was notified after the time the patient had been evaluated by the inpatient service the patient was having low oxygen saturations and difficulty with breathing and low blood pressure. Patient was placed on BiPAP. Chest x-ray was ordered. I discussed the patient with the principal data architect Dr. Hansen as we did discuss goals of care with the . Fortunately, the patient did improve with BiPAP and did not require intubation. Patient was subsequently admitted to the intensive care unit. Critical Care: I have personally spent 82 minutes of critical care time in direct management of this patient. This includes bedside care, interpretation of diagnostic studies, and testing, discussion with consultants, patient, and family members, and other require inpatient management activities. This 82 minutes is in excess of all separately billable procedures. Discussion w/ other healthcare providers: None Prior /Outside records reviewed: I did review part of a discharge summary from Dr. Gonzales from December 23, 2024. Patient was admitted for sepsis flu a pneumonia acute on chronic hypoxic igor respiratory failure acute on chronic systolic heart failure ESRD on dialysis. Differential diagnosis: Vasovagal event, dehydration, infection, hypoglycemia, electrolyte abnormalities, arrhythmia, pulmonary embolism, seizure among others were considered. Diagnostics, as interpreted by me: ECG: Normal sinus rhythm, rate of 84, normal intervals, normal axis no ST elevations. T wave version lead III. Cardiac monitoring: An order was placed for continuous cardiac monitoring. The monitor shows a rate of 87 with sinus rhythm. Patient was placed on pulse oximetry Medical decision rules: None Imaging studies: I informally interpreted the patient's repeat chest x-ray shows developing pulmonary edema with formal report to follow. HPI: Patient presents due to concern for syncope that occurred while at dialysis. Patient reportedly had about 280 taken off and does get dialysis Friday and Friday when she passed out. The patient reportedly did have medication changes was taken off fluoxetine started on Paxil and oxycodone. Patient did take 1 oxycodone and Ativan prior to her dialysis today. Patient reported that she did vomit may have passed out prior to dialysis. Patient did have some crackers this morning. The patient states that she took these other medications around 5 AM. Patient denies any chest pains or shortness of breath no diarrhea. Patient denies any abdominal pain. PAST MEDICAL HISTORY: See Below PAST SURGICAL HISTORY: See Below SOCIAL HISTORY: See Below HOME MEDICATIONS: See Below ALLERGIES: See Below VITALS: See Below PHYSICAL EXAMINATION: GENERAL: NAD, non-toxic. Fatigable in appearance. Easily arousable. EYE EXAM: Normal conjunctiva. Pinpoint pupils no anisocoria extraocular movements intact. OROPHARYNX: Moist mucus membranes, grossly normal dentition. NECK: Trachea midline, no stridor. LUNGS: Crackles at the left base. Normal chest wall mechanics. HEART: NSR, systolic ejection murmur. ABDOMEN: Abdomen soft, non-tender, no masses, no rebound or guarding. BACK: No CVA TTP. SKIN: No rashes and no bruising. UPPER EXTREMITIES: Upper extremities are grossly normal. Right upper extremity fistula with palpable thrill. Bandage in place. LOWER EXTREMITIES: Grossly normal, no edema. Eschar noted to the distal medial portion of the right lower extremity. NEURO EXAM: Easily arousable, opens eyes to voice, GCS 14, follows commands, no obvious facial asymmetry, normal speech, moves all 4 extremities. 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 Perez Medical History Swelling of right upper extremity Lower urinary tract symptoms (LUTS) Hx of fall ESRD (end stage renal disease) on dialysis Diaylsis Tues/Thurs/Sat- [facility] Follows with Dr. Perez Chronic pain History of cellulitis Anemia Hx of gastrointestinal hemorrhage History of dialysis fistulography Ambulatory dysfunction walker-dependent Anxiety and depression RLS (restless legs syndrome) History of blood transfusion 2022 Pulmonary hypertension mild on 2020 echo Sleep apnea severe-not currently treated per pt Moderate aortic stenosis (MELCHOR 0.8 cm2, mean PG 20 mmHg) Diabetes mellitus, type 2 Limb alert care status RUE AVF Osteoporosis HLD (hyperlipidemia) Psoriasis History of renal calculi History of DVT (deep vein thrombosis) RLE, 10+ years ago, post op AC therapy x 3-6 months after > d/c'd + no issues since History of pulmonary embolus (PE) 10+ years ago, post op- no issues since Surgical History History of esophagogastroduodenoscopy (EGD) Hx of bilateral hip replacements H/O laparoscopy History of cystoscopy S/P arteriovenous (AV) fistula repair (~2020) x2 right- currently getting HD History of tooth extraction History of x 2 S/P arteriovenous (AV) fistula creation x 2 BL (non functioning on left)--left still in place not working History of colonoscopy H/O partial resection of colon (2012) For diverticulitis H/O inguinal hernia repair left S/P cholecystectomy Family History Mother Diabetes Sister Diabetes Other No family history of adverse response to anesthesia Social History Smoking Status: Never smoker Tobacco Type: Cigarettes Second Hand Exposure: No; Do You Dip or Chew Tobacco: No; Hx Alcohol Use: No Hx Substance Use: No Preferred Language: Cambodian Communication Ability: Effective Public Relations Intern Required: No Beliefs That Will Affect Care: None marital status: Current Living Situation: Spouse Current Living Situation Comment: lives in 2 story home with , daughter and grandson How many Children do You have: 3 Other Information That Helps Us Care for You: No Feels Safe at Home: Yes Safety Concerns: Feels Safe At This Time Assistive Devices: Oxygen - Continuous and Walker Allergies Allergies Allergy/AdvReac Type Severity Reaction Status Date / Time Sulfa (Sulfonamide Allergy Severe Face/lips/tongue Verified 10/30/24 15:19 Antibiotics) edema nitrofurantoin Allergy Intermediate Hives Verified 10/30/24 15:19 cefazolin [From Ancef] Allergy Unknown CAN'T Verified 10/30/24 15:19 REMEMBER pantoprazole [From Protonix] Allergy Unknown CAN'T Verified 10/30/24 15:19 REMEMBER methylprednisolone AdvReac Intermediate Sweating, Verified 10/30/24 15:19 [From Medrol] heart racing Home Meds Home Medications Medication Instructions Recorded Confirmed gabapentin 100 mg capsule 100 mg PO DIRECTED 12/31/18 02/24/25 betamethasone dipropionate 0.05 % 1 applic topical BID PRN 11/15/23 02/24/25 topical ointment PSORIASIS/ITCHING ropinirole 2 mg tablet 2 mg PO HS 11/15/23 02/24/25 simvastatin 20 mg tablet 20 mg PO HS 11/15/23 02/24/25 vitamin B complex-vitamin C-folic 1 tab PO QAM 11/15/23 02/24/25 acid 0.8 mg tablet (Anais-Federico) cholecalciferol (vitamin D3) 125 125 mcg PO UD 09/23/24 02/24/25 mcg (5,000 unit) tablet (Vitamin D3) cinacalcet 90 mg tablet (Sensipar) 180 mg PO QPM 09/23/24 02/24/25 epoetin beta, methoxy peg 100 100 mcg IV UD 09/23/24 02/24/25 mcg/0.3 mL injection syringe (Mircera) iron sucrose 50 mg iron/2.5 mL 50 mg IV UD 09/23/24 02/24/25 intravenous solution lanthanum 750 mg chewable tablet 750 mg PO TIDWMEAL 10/30/24 02/24/25 (Fosrenol) triamcinolone acetonide 0.1 % 1 applic topical BID PRN Skin 10/30/24 02/24/25 topical ointment Irritation midodrine 2.5 mg tablet 5 mg PO UD 12/21/24 02/24/25 citalopram 10 mg tablet 10 mg PO DAILY 02/24/25 02/24/25 dulaglutide 0.75 mg/0.5 mL 0.75 mg subcut WK 02/24/25 02/24/25 subcutaneous pen injector (Trulicity) lorazepam 0.5 mg tablet 0.5 mg PO HS PRN Anxiety 02/24/25 02/24/25 oxycodone 15 mg tablet 15 mg PO Q8H PRN Pain, Severe 02/24/25 02/24/25 paroxetine HCl 10 mg tablet 10 mg PO DAILY 02/24/25 02/24/25 Previous Rx's Medication Instructions Recorded guaifenesin 600 mg tablet, 600 mg PO Q12 PRN cough/congestion 12/23/24 extended release 12 hr (Mucinex) #30 tabs Results & Data (ED) Vital Signs Vital Signs - 24 hr 02/24/25 07:35 Pulse Rate 84 Home Medications Current Medication List: was personally reviewed by me Laboratory Data Attestation: I reviewed the patient's lab results. 02/27/25 05:07 02/28/25 07:08 Lab Results 02/24/25 Range/Units 07:50 WBC 8.30 (4.8-10.8) K/ul RBC 2.81 L (4.20-5.40) M/uL Hgb 8.9 L (12.0-16.0) g/dl Hct 27.9 L (37.0-47.0) % MCV 99.3 (80.0-100.0) fL MCH 31.7 (25.0-34.0) pg MCHC 31.9 L (32.0-36.0) g/dL RDW Std Deviation 54.0 H (36.4-46.3) fL RDW Coeff of Erum 15.7 H (11.5-14.5) % Plt Count 231 (130-400) K/uL MPV 9.4 (9.4-12.4) fL Immature Gran % (Auto) 0.5 % Neut % (Auto) 81.6 % Lymph % (Auto) 10.1 % [place] % (Auto) 5.5 % Eos % (Auto) 1.9 % Baso % (Auto) 0.4 % Neut # (Auto) 6.77 H (1.40-6.50) K/uL Lymph # (Auto) 0.84 L (1.20-3.40) K/uL [place] # (Auto) 0.46 (0.11-0.59) K/uL Eos # (Auto) 0.16 (0.00-0.50) K/uL Baso # (Auto) 0.03 (0.00-0.20) K/uL Immature Gran # (Auto) 0.04 (0.01-0.20) K/uL PT 11.1 (9.0-12.0) Seconds INR 1.0 (0.9-1.1) APTT 31 (21-31) Seconds PTT Ratio 1.2 Sodium 138 (136-145) mmol/L Potassium 4.2 (3.5-5.1) mmol/L Chloride 97 L (98-107) mmol/L Carbon Dioxide 31 (21-32) mmol/L Anion Gap 10 (3-11) BUN 52 H (6-23) mg/dl Creatinine 3.96 H (0.6-1.2) mg/dl Est Cr Clr Drug Dosing 13.1 ml/min eGFR 11.55 BUN/Creatinine Ratio 13.1 (10-20) Glucose 134 H (70-99(Fasting)) mg/dl Calcium 8.4 L (8.6-10.3) mg/dl Magnesium 2.2 (1.7-2.4) mg/dl Total Bilirubin 0.3 (0.2-1.0) mg/dl AST 22 (13-39) U/L ALT 16 (7-52) U/L Alkaline Phosphatase 93 (34-104) U/L Troponin I High Sens 19.0 H (0-14) pg/ml Total Protein 6.9 (6.0-8.3) gm/dl Albumin 3.2 L (3.4-5.0) gm/dl Globulin 3.7 (2.5-4.0) gm/dl Albumin/Globulin Ratio 0.9 (0.9-2) TSH 1.324 (0.300-4.500) uIu/ml Administered Medications Acetaminophen (Acetaminophen 325 Mg Tab) 650 mg PO Q4H PRN PRN Reason: pain/fever Stop: 03/27/25 20:44 Last Admin: 02/27/25 02:46 Dose: 650 mg Documented By: Admin: 02/26/25 15:15 Dose: 650 mg Documented By: Admin: 02/26/25 04:55 Dose: 650 mg Documented By: Admin: 02/25/25 21:14 Dose: 650 mg Documented By: MARKELL Albuterol (Albut/Ipratrop 3mg/0.5mg Neb 3 Ml Vial) 3 ml NEB BIDR [facility]; Protocol Stop: 03/26/25 09:59 Last Admin: 02/28/25 07:08 Dose: 3 ml Documented By: JEAN-PIERRE Admin: 02/27/25 19:26 Dose: 3 ml Documented By: Admin: 02/27/25 07:17 Dose: 3 ml Documented By: Admin: 02/26/25 20:08 Dose: 3 ml Documented By: Admin: 02/26/25 07:45 Dose: 3 ml Documented By: Admin: 02/25/25 19:30 Dose: 3 ml Documented By: Admin: 02/25/25 07:58 Dose: 3 ml Documented By: Admin: 02/24/25 19:46 Dose: 3 ml Documented By: Admin: 02/24/25 10:24 Dose: 3 ml Documented By: LETITIA Calcium Acetate (Calcium Acetate 667 Mg Cap/Tab) 1,334 mg PO TIDM [facility] Stop: 03/30/25 11:59 Last Admin: 02/28/25 16:39 Dose: 1,334 mg Documented By: Admin: 02/28/25 11:44 Dose: 1,334 mg Documented By: SARAH Cinacalcet (Cinacalcet Hcl 90 Mg Tab) 180 mg PO QPM [facility] Stop: 03/27/25 20:59 Last Admin: 02/27/25 20:46 Dose: 180 mg Documented By: Admin: 02/26/25 21:50 Dose: 180 mg Documented By: Admin: 02/25/25 21:17 Dose: 180 mg Documented By: MARKELL Citalopram Hydrobromide (Citalopram 20 Mg Tab) 10 mg PO DAILY [facility] Stop: 03/27/25 10:44 Last Admin: 02/28/25 08:42 Dose: 10 mg Documented By: Admin: 02/27/25 08:57 Dose: 10 mg Documented By: Admin: 02/26/25 08:17 Dose: 10 mg Documented By: Admin: 02/25/25 15:35 Dose: Not Given Documented By: GPF Heparin Sodium (Porcine) (Heparin Sod 5,000 Unit/0.5 Ml Vial) 5,000 units SQ Q8 [facility] Stop: 03/27/25 13:59 Last Admin: 02/28/25 14:01 Dose: 5,000 units Documented By: Admin: 02/28/25 05:26 Dose: 5,000 units Documented By: Admin: 02/27/25 20:46 Dose: 5,000 units [place]ed [place]: [facility] [place]: 02/27/25 15:35 Dose: 5,000 units Documented By: Admin: 02/27/25 05:52 Dose: 5,000 units Documented By: Admin: 02/26/25 21:49 Dose: 5,000 units Documented By: Admin: 02/26/25 15:15 Dose: 5,000 units Documented By: Admin: 02/26/25 05:13 Dose: 5,000 units Documented By: Admin: 02/25/25 21:31 Dose: 5,000 units Documented By: Admin: 02/25/25 15:35 Dose: Not Given Documented By: GPF Midodrine (Midodrine Hcl 2.5 Mg Tab) 10 mg PO TID@0800,1200,1700 [facility] Stop: 03/28/25 11:59 Last Admin: 02/28/25 16:39 Dose: 10 mg Documented By: Admin: 02/28/25 11:44 Dose: 10 mg Documented By: Admin: 02/28/25 07:40 Dose: 10 mg Documented By: Admin: 02/27/25 18:13 Dose: 10 mg Documented By: Admin: 02/27/25 12:20 Dose: 10 mg Documented By: Admin: 02/27/25 08:57 Dose: 10 mg Documented By: Admin: 02/26/25 17:11 Dose: 10 mg Documented By: Admin: 02/26/25 11:36 Dose: 10 mg Documented By: CB Paroxetine HCl (Paroxetine Hcl 10 Mg Tab) 10 mg PO DAILY [facility] Stop: 03/27/25 10:44 Last Admin: 02/28/25 08:43 Dose: 10 mg Documented By: Admin: 02/27/25 08:56 Dose: 10 mg Documented By: Admin: 02/26/25 08:16 Dose: 10 mg Documented By: Admin: 02/25/25 11:51 Dose: 10 mg Documented By: GPF Ropinirole HCl (Ropinirole Hcl 2 Mg Tablet) 2 mg PO HS [facility] Stop: 03/29/25 20:59 Last Admin: 02/27/25 20:46 Dose: 2 mg Documented By: [facility] Sevelamer Carbonate (Sevelamer Carbonate 800 Mg Tab) 800 mg PO TIDM [facility] Stop: 03/27/25 11:59 Last Admin: 02/28/25 16:39 Dose: 800 mg Documented By: Admin: 02/28/25 12:12 Dose: 800 mg Documented By: Admin: 02/28/25 07:40 Dose: 800 mg Documented By: Admin: 02/27/25 18:13 Dose: 800 mg Documented By: Admin: 02/27/25 12:20 Dose: 800 mg Documented By: Admin: 02/27/25 08:56 Dose: Not Given Documented By: Admin: 02/26/25 16:44 Dose: Not Given Documented By: Admin: 02/26/25 11:35 Dose: Not Given Documented By: Admin: 02/26/25 08:15 Dose: 800 mg Documented By: Admin: 02/25/25 16:26 Dose: 800 mg Documented By: Admin: 02/25/25 12:16 Dose: Not Given Documented By: GPF Simvastatin (Simvastatin 20 Mg Tab) 20 mg PO HS [facility] Stop: 03/27/25 20:59 Last Admin: 02/27/25 20:46 Dose: 20 mg Documented By: Admin: 02/26/25 21:51 Dose: 20 mg Documented By: Admin: 02/25/25 21:17 Dose: 20 mg Documented By: SadiT Sodium Chloride (Sodium Chlor 7% 4 Ml Neb) 4 ml NEB BIDR [facility] Stop: 03/26/25 09:56 Last Admin: 02/28/25 07:08 Dose: 4 ml Documented By: JEAN-PIERRE Admin: 02/27/25 19:26 Dose: 4 ml Documented By: Admin: 02/27/25 07:17 Dose: 4 ml Documented By: Admin: 02/26/25 20:08 Dose: 4 ml Documented By: Admin: 02/26/25 07:45 Dose: 4 ml Documented By: Admin: 02/25/25 19:31 Dose: 4 ml Documented By: Admin: 02/25/25 07:58 Dose: 4 ml Documented By: Admin: 02/24/25 19:46 Dose: 4 ml Documented By: Admin: 02/24/25 10:24 Dose: 4 ml Documented By: CRG Vitamin B Complex/Folic Acid (Nephrocaps) 1 cap PO QAM [facility] Stop: 03/30/25 08:59 Last Admin: 02/28/25 08:43 Dose: 1 cap Documented By: KJL Discontinued Medications Dextrose (Dextrose 50% 50 Ml Syringe) 50 ml IV NOW ONE Stop: 02/25/25 08:04 Last Admin: 02/25/25 15:50 Dose: Not Given Documented By: GPF Epoetin Joseph (Epoetin Joseph 20,000 Units/Ml Vial) 20,000 units IV ONE ONE Stop: 02/25/25 08:26 Last Admin: 02/25/25 15:45 Dose: 20,000 units Documented By: CC Epoetin Joseph (Epoetin Joseph 20,000 Units/Ml Vial) 20,000 units IV ONE ONE Stop: 02/26/25 07:01 Last Admin: 02/26/25 14:23 Dose: 20,000 units Documented By: CC Heparin Sodium (Porcine) (Heparin Sod (Porcine) 1000 Unit/Ml) 1,000 units IV ONE ONE Stop: 02/25/25 08:26 Last Admin: 02/25/25 13:16 Dose: Not Given Documented By: CC Heparin Sodium (Porcine) (Heparin Sod (Porcine) 1000 Unit/Ml) 400 units IV Q1H [facility] Stop: 02/25/25 10:31 Last Admin: 02/25/25 15:09 Dose: Not Given Documented By: Admin: 02/25/25 15:09 Dose: Not Given Documented By: Admin: 02/25/25 15:09 Dose: Not Given Documented By: CC Heparin Sodium (Porcine) (Heparin Sod (Porcine) 1000 Unit/Ml) 1,000 units IV ONE ONE Stop: 02/26/25 07:01 Last Admin: 02/26/25 11:48 Dose: Not Given Documented By: CC Heparin Sodium (Porcine) (Heparin Sod (Porcine) 1000 Unit/Ml) 400 units IV Q1H [facility] Stop: 02/26/25 09:01 Last Admin: 02/26/25 14:23 Dose: Not Given Documented By: Admin: 02/26/25 14:23 Dose: Not Given Documented By: Admin: 02/26/25 11:48 Dose: Not Given Documented By: CC Sodium Chloride (Nss) 250 mls @ 999 mls/hr IV .Q16M ONE Stop: 02/24/25 07:51 Last Infusion: 02/24/25 08:53 Dose: Infused Documented By: Admin: 02/24/25 08:02 Dose: 999 mls/hr Documented By: FLAVIA Piperacillin Sod/Tazobactam Sod (Zosyn) 4.5 gm in 100 mls @ 25 mls/hr IV Q12H [facility]; Protocol Stop: 03/01/25 17:59 Last Infusion: 02/26/25 11:20 Dose: Infused Documented By: Admin: 02/26/25 05:13 Dose: 25 mls/hr Documented By: Infusion: 02/25/25 21:05 Dose: Infused Documented By: Admin: 02/25/25 17:01 Dose: 25 mls/hr Documented By: Infusion: 02/25/25 11:11 Dose: Infused Documented By: Admin: 02/25/25 06:06 Dose: 25 mls/hr Documented By: Infusion: 02/24/25 21:38 Dose: Infused Documented By: Admin: 02/24/25 17:38 Dose: 25 mls/hr Documented By: SARAH(2) Piperacillin Sod/Tazobactam Sod (Zosyn) 4.5 gm in 100 mls @ 200 mls/hr IV NOW STA; Protocol Stop: 02/24/25 10:12 Last Infusion: 02/24/25 10:49 Dose: Infused Documented By: Admin: 02/24/25 09:59 Dose: 200 mls/hr Documented By: FLAVIA Sodium Chloride (Nss) 250 mls @ 999 mls/hr IV .Q16M ONE Stop: 02/24/25 10:31 Last Infusion: 02/24/25 10:48 Dose: Infused Documented By: Admin: 02/24/25 10:25 Dose: 999 mls/hr Documented By: FLAVIA Phenylephrine HCl (Phenylephrine/Nss) 25 mg in 250 mls @ 0 mls/hr IV .Q0M [facility]; Protocol Stop: 03/26/25 10:36 Last Titration: 02/27/25 14:12 Dose: Infused Documented By: PINO Co-signed By: Admin: 02/27/25 11:54 Dose: Not Given Documented By: Admin: 02/27/25 11:53 Dose: Not Given Documented By: Titration: 02/27/25 10:45 Dose: 0 mcg/kg/min, 0 mls/hr Documented By: NANO Co-signed By: DANIELLE Titration: 02/27/25 08:15 Dose: 0.1 mcg/kg/min, 4.6 mls/hr Documented By: NANO Co-signed By: AMS(2) Titration: 02/27/25 08:00 Dose: 0.3 mcg/kg/min, 13.9 mls/hr Documented By: CB Co-signed By: AMS(2) Titration: 02/27/25 06:50 Dose: 0.5 mcg/kg/min, 23.1 mls/hr Documented By: JT Co-signed By: NANO Titration: 02/26/25 22:52 Dose: 0.5 mcg/kg/min, 23.1 mls/hr Documented By: JT Co-signed By: ALMA Titration: 02/26/25 21:58 Dose: 0.3 mcg/kg/min, 13.9 mls/hr Documented By: JDarrel Co-signed By: TMG Admin: 02/26/25 21:50 Dose: 0.5 mcg/kg/min, 23.1 mls/hr Documented By: MARKELL Co-signed By: TMG Titration: 02/26/25 21:44 Dose: Infused Documented By: JT Co-signed By: TMG Titration: 02/26/25 18:57 Dose: 0.5 mcg/kg/min, 23.1 mls/hr Documented By: NANO Co-signed By: MARKELL Admin: 02/26/25 16:43 Dose: Not Given Documented By: Titration: 02/26/25 16:30 Dose: 0.5 mcg/kg/min, 23.1 mls/hr Documented By: NANO Co-signed By: DANIELLE Admin: 02/26/25 16:26 Dose: Not Given Documented By: Titration: 02/26/25 16:00 Dose: 0.7 mcg/kg/min, 32.3 mls/hr Documented By: NANO Co-signed By: DANIELLE Admin: 02/26/25 13:17 Dose: 0.9 mcg/kg/min, 41.6 mls/hr Documented By: NANO Co-signed By: KEON Titration: 02/26/25 13:16 Dose: Infused Documented By: NANO Co-signed By: KEON Admin: 02/26/25 11:19 Dose: Not Given Documented By: Titration: 02/26/25 08:16 Dose: 0.9 mcg/kg/min, 41.6 mls/hr Documented By: NANO Co-signed By: WS Admin: 02/26/25 07:26 Dose: 1.1 mcg/kg/min, 50.8 mls/hr Documented By: NANO Co-signed By: AMS(2) Titration: 02/26/25 07:26 Dose: Infused Documented By: NANO Co-signed By: AMS(2) Titration: 02/26/25 06:50 Dose: 1.1 mcg/kg/min, 50.8 mls/hr Documented By: MARKELL Co-signed By: NANO Admin: 02/26/25 02:38 Dose: 1.1 mcg/kg/min, 50.8 mls/hr Documented By: MARKELL Co-signed By: MNM Titration: 02/26/25 02:38 Dose: Infused Documented By: JT Co-signed By: MNM Titration: 02/25/25 22:29 Dose: 0 mcg/kg/min, 0 mls/hr Documented By: JT Co-signed By: LLP Admin: 02/25/25 21:14 Dose: 0.9 mcg/kg/min, 41.6 mls/hr Documented By: JT Co-signed By: MNM Titration: 02/25/25 20:41 Dose: Infused Documented By: JT Co-signed By: LLP Titration: 02/25/25 18:57 Dose: 1.1 mcg/kg/min, 50.8 mls/hr Documented By: JT Co-signed By: GPF Titration: 02/25/25 17:00 Dose: 1.1 mcg/kg/min, 50.8 mls/hr Documented By: GPF Co-signed By: ES Titration: 02/25/25 16:26 Dose: 1.1 mcg/kg/min, 50.8 mls/hr Documented By: GPF Co-signed By: ES Titration: 02/25/25 16:17 Dose: 1.3 mcg/kg/min, 60.1 mls/hr Documented By: GPF Co-signed By: DAA Titration: 02/25/25 16:06 Dose: 1.5 mcg/kg/min, 69.3 mls/hr Documented By: GPF Co-signed By: DAA Admin: 02/25/25 15:49 Dose: 1.7 mcg/kg/min, 78.5 mls/hr Documented By: GPF Co-signed By: DAA Titration: 02/25/25 15:49 Dose: Infused Documented By: GPF Co-signed By: DAA Admin: 02/25/25 13:14 Dose: 1.9 mcg/kg/min, 87.8 mls/hr Documented By: GPF Co-signed By: ES Titration: 02/25/25 13:14 Dose: Infused Documented By: GPF Co-signed By: ES Titration: 02/25/25 11:53 Dose: 1.9 mcg/kg/min, 87.8 mls/hr Documented By: GPF Co-signed By: ES Admin: 02/25/25 11:00 Dose: 2.1 mcg/kg/min, 97 mls/hr Documented By: GPF Co-signed By: ES Titration: 02/25/25 10:13 Dose: Infused Documented By: GPF Co-signed By: ES Titration: 02/25/25 09:30 Dose: 2.1 mcg/kg/min, 97 mls/hr Documented By: GPF Co-signed By: DAA Titration: 02/25/25 09:24 Dose: 1.9 mcg/kg/min, 87.8 mls/hr Documented By: GPF Co-signed By: DAA Titration: 02/25/25 09:05 Dose: 1.7 mcg/kg/min, 78.5 mls/hr Documented By: GPF Co-signed By: ES Admin: 02/25/25 07:53 Dose: Not Given Documented By: Titration: 02/25/25 07:53 Dose: 1.5 mcg/kg/min, 69.3 mls/hr Documented By: GPF Co-signed By: ES Titration: 02/25/25 07:41 Dose: 1.3 mcg/kg/min, 60.1 mls/hr Documented By: GPF Co-signed By: ES Titration: 02/25/25 07:33 Dose: 1.1 mcg/kg/min, 50.8 mls/hr Documented By: GPF Co-signed By: ES Titration: 02/25/25 06:58 Dose: 0.9 mcg/kg/min, 41.6 mls/hr Documented By: AMS Co-signed By: GPF Admin: 02/25/25 06:27 Dose: 0.9 mcg/kg/min, 41.6 mls/hr Documented By: AMS Co-signed By: SG Titration: 02/25/25 06:27 Dose: Infused Documented By: AMS Co-signed By: SG Admin: 02/25/25 00:06 Dose: 0.9 mcg/kg/min, 41.6 mls/hr Documented By: AMS Co-signed By: SG Titration: 02/24/25 23:45 Dose: Infused Documented By: AMS Co-signed By: SG Titration: 02/24/25 21:32 Dose: 0.9 mcg/kg/min, 41.6 mls/hr Documented By: AMS Co-signed By: SG Titration: 02/24/25 21:03 Dose: 0.7 mcg/kg/min, 32.3 mls/hr Documented By: KEVIN Co-signed By: SG Titration: 02/24/25 19:04 Dose: 0.9 mcg/kg/min, 41.6 mls/hr Documented By: KEVIN Co-signed By: SARAH(2) Admin: 02/24/25 17:37 Dose: 0.9 mcg/kg/min, 41.6 mls/hr Documented By: SARAH(2) Co-signed By: KEVIN(2) Titration: 02/24/25 17:37 Dose: Infused Documented By: SARAH(2) Co-signed By: KEVIN(2) Titration: 02/24/25 15:25 Dose: 0.9 mcg/kg/min, 41.6 mls/hr Documented By: SARAH(2) Co-signed By: TOSHIA Titration: 02/24/25 10:53 Dose: 0.7 mcg/kg/min, 32.3 mls/hr Documented By: FLAVIA Co-signed By: LIZ Admin: 02/24/25 10:43 Dose: 0.5 mcg/kg/min, 23.1 mls/hr Documented By: FLAVIA Co-signed By: KEVIN(3) Daptomycin 500 mg/ Syringe 10 mls @ 5.25 mls/min IV NOW ONE; Protocol Stop: 02/24/25 19:02 Last Admin: 02/24/25 19:28 Dose: 5.25 mls/min Documented By: KEVIN Ampicillin Sodium/Sulbactam Sodium (Unasyn) 3,000 mg in 100 mls @ 200 mls/hr IV Q24H STEPHAN; Protocol Stop: 02/27/25 18:29 Last Infusion: 02/27/25 20:16 Dose: Infused Documented By: Admin: 02/27/25 19:41 Dose: 200 mls/hr Documented By: Infusion: 02/26/25 18:04 Dose: Infused Documented By: Admin: 02/26/25 17:11 Dose: 200 mls/hr Documented By: NANO Ioversol (Optiray 320 125ml) 112 ml IV ONCE ONE Stop: 02/25/25 11:22 Last Admin: 02/25/25 11:22 Dose: 112 ml Documented By: EDUARDO Lorazepam (Lorazepam 2 Mg/1 Ml Vial) 0.25 mg IV NOW STA Stop: 02/24/25 08:15 Last Admin: 02/24/25 08:24 Dose: 0.25 mg Documented By: FLAVIA Lorazepam (Lorazepam 1 Mg Tab) 1 mg PO NOW STA Stop: 02/24/25 09:48 Last Admin: 02/24/25 10:08 Dose: Not Given Documented By: FLAVIA Lorazepam (Lorazepam 0.5 Mg Tab) 0.5 mg PO NOW STA Stop: 02/28/25 01:01 Last Admin: 02/28/25 01:20 Dose: 0.5 mg Documented By: SMITHA Midodrine (Midodrine Hcl 2.5 Mg Tab) 2.5 mg PO NOW STA Stop: 02/24/25 07:37 Last Admin: 02/24/25 08:02 Dose: Not Given Documented By: FLAVIA Midodrine (Midodrine Hcl 2.5 Mg Tab) 5 mg PO TID@0800,1200,1700 [facility] Stop: 03/26/25 10:19 Last Admin: 02/26/25 08:16 Dose: 5 mg Documented By: Admin: 02/25/25 16:26 Dose: 5 mg Documented By: Admin: 02/25/25 11:51 Dose: 5 mg Documented By: Admin: 02/25/25 07:52 Dose: 5 mg Documented By: Admin: 02/24/25 17:32 Dose: Not Given Documented By: SARAH(2) Admin: 02/24/25 14:44 Dose: Not Given Documented By: SARAH(2) Admin: 02/24/25 10:48 Dose: Not Given Documented By: FLAVIA Duenas (Stat Iv Infusion Titration Per Protocol) 1 each N/A NOW STA Stop: 02/24/25 10:38 Last Admin: 02/24/25 10:48 Dose: Not Given Documented By: FLAVIA Duenas (Icu Protocol For Hyperglycemia) 1 each N/A ACHS [facility] Stop: 02/26/25 16:29 Last Admin: 02/26/25 11:35 Dose: Not Given Documented By: Admin: 02/26/25 08:15 Dose: Not Given Documented By: Admin: 02/25/25 21:30 Dose: 1 each Documented By: Admin: 02/25/25 15:36 Dose: Not Given Documented By: Admin: 02/25/25 11:52 Dose: Not Given Documented By: Admin: 02/25/25 07:52 Dose: Not Given Documented By: Admin: 02/24/25 21:16 Dose: 1 each Documented By: Admin: 02/24/25 17:38 Dose: 1 each Documented By: SARAH(2) Miscellaneous (Order Awaiting Action Lanthum 750 Mg Tablet) 1 each N/A QS [facility] Stop: 03/27/25 10:44 Last Admin: 02/25/25 22:05 Dose: 1 each Documented By: MARKELL Naloxone HCl (Naloxone Hcl 0.4 Mg/1 Ml Vial/Carp) 0.4 mg IV NOW STA Stop: 02/24/25 07:42 Last Admin: 02/24/25 07:45 Dose: 0.4 mg Documented By: FLAVIA Naloxone HCl (Naloxone Hcl 0.4 Mg/1 Ml Vial/Carp) Confirm Administered Dose 0.4 mg .ROUTE .STK-MED ONE Stop: 02/24/25 07:44 Last Admin: 02/24/25 07:46 Dose: Not Given Documented By: FLAVIA Norepinephrine Bitartrate (Norepinephrine/D5w 4 Mg/250 Ml) Confirm Administered Dose 4 mg IV .STK-MED ONE Stop: 02/26/25 10:05 Last Admin: 02/26/25 11:20 Dose: Not Given Documented By: NANO Ondansetron HCl (Ondansetron Inj 2 Mg/Ml 2 Ml Vial) 4 mg IV NOW STA Stop: 02/24/25 10:03 Last Admin: 02/24/25 10:10 Dose: 4 mg Documented By: FLAVIA Ondansetron HCl (Ondansetron Inj 2 Mg/Ml 2 Ml Vial) 4 mg IV NOW STA Stop: 02/27/25 08:18 Last Admin: 02/27/25 12:18 Dose: Not Given Documented By: NANO Ondansetron HCl (Ondansetron Inj 2 Mg/Ml 2 Ml Vial) 4 mg IV NOW STA Stop: 02/27/25 22:29 Last Admin: 02/27/25 23:10 Dose: 4 mg Documented By: SMITHA Oxycodone HCl (Oxycodone Hcl Ir 5 Mg Tab (Immediate Release)) 5 mg PO NOW STA Stop: 02/24/25 09:56 Last Admin: 02/24/25 10:06 Dose: 5 mg Documented By: FLAVIA Oxycodone HCl (Oxycodone Hcl Ir 5 Mg Tab (Immediate Release)) 5 mg PO TID PRN PRN Reason: Pain Stop: 03/13/25 14:13 Last Admin: 02/28/25 05:25 Dose: 5 mg Documented By: SMITHA Polyethylene Glycol (Polyethylene (Miralax) 17 Gm Pack) 17 gm PO NOW STA Stop: 02/27/25 22:18 Last Admin: 02/28/25 01:03 Dose: Not Given Documented By: [facility] Radiologist's Impression: Chest X-Ray 02/24/25 07:37 EXAM: XR chest 1V portable CLINICAL HISTORY: Syncope. TECHNIQUE: An X-ray image of the chest is obtained in AP projection. COMPARISON: 12/23/2024. FINDINGS: Pulmonary Parenchyma: Bilateral nodular opacities, few of which are ill-defined, conspicuous in the right upper mid and lower zones. Bilateral prominent bronchovascular/interstitial markings with diversion of upper lobes. Opacification of left lower zone obscuring the left costophrenic recess. Heart and Mediastinum: Cardiomegaly. No mediastinal widening or masses. No hilar or mediastinal lymphadenopathy. Bony Thorax: Bilateral degenerative changes are seen at the glenohumeral joint space. No fracture or dislocation seen. Soft Tissues: Soft tissues overlying the chest wall are unremarkable. IMPRESSION: 1. Bilateral nodular opacities, few of which are ill-defined, conspicuous in the right lung. Postinflammatory. Suggest clinical and lab correlation. 2. Cardiomegaly. 3. Comparing the previous x-ray dated 12/23/2024, there is interval progression. Electronically signed by Matheus Hernandez 02-24-2025 08:35 AM Discharge Plan Visit Data Chief Complaint: Syncope Stated Complaint: syncope ED Provider: Elias Joe Discharge Problem: Aspiration pneumonia, Opiate overdose, End stage renal disease on dialysis Patient Disposition: Admitted As Inpatient Condition: Critical Discharge Instructions Interventions: ED Discharge Assessment Last Done: 02/24/25 11:34 Discharge Problem: Aspiration pneumonia Qualifiers: Aspiration pneumonia type: unspecified Laterality: unspecified laterality Lung location: unspecified part of lung Qualified Code(s): J69.0 - Pneumonitis due to inhalation of food and vomit Opiate overdose Qualifiers: Encounter type: initial encounter Injury intent: undetermined intent Qualified Code(s): T40.604A - Poisoning by unspecified narcotics, undetermined, initial encounter
--- OUTSIDE RECORDS SUMMARY | 2025-02-24 07:29 | External Medical Summary | Summary of Care ---
Author Name Unknown Organization [facility] Address [address] [place] [address] Phone [phone] Care Team Providers Care Modeling Analyst Name Role Phone Willie Epstein MD Primary Care Provider + Reason for Visit * Reason Onset Date Comments Other 12/24/2024 Encounter Details Date Type Department Care Team (Late st Contact Info) Description 12/24/2024 [facility] [address] [facility] [address] [facility] [place] [id number] Other Allergies Active Allergy Reactions Criticality Noted Date Comments Cefazolin Unknown 11/15/2023 Other Reaction(s): CAN'T REMEMBER Methylprednisolone Other (Please comment) 07/28/2017 Side effects c/w med (sweating, heart racing etc) Nitrofurantoin Hives High 03/01/2024 Nitrofurantoin Monohyd Macro Hives 04/04/2014 Pantoprazole Unknown 11/15/2023 Other Reaction(s): CAN'T REMEMBER Sulfa Antibiotics Edema face/lips/tongue High 09/02/2008 documented as of this encounter (statuses as of 12/25/2024) Medications INSULIN SYRINGE-NEEDLE U-100 30G X 1/2" 1 ML MISCIndications:DM type 2, goal A1c below 7 Use as directed 1 Box of 100 11 8 Active RENAL MULTIVITAMIN/ZINC PO TABS None Entered Active BannoTOUCH ULTRASOFT LANCETS MISCIndications:Ty pe 2 diabetes mellitus with hemoglobin A1c goal of less than 8.0% ([facility]) Use as directed 2 times a day. 1 Box Dosing Unit 11 7 Active cinacalcet (SENSIPAR) 30 MG Tablet Take 1 Tab by mouth daily with dinner. 90 Tab 3 8 Active Blood Glucose Monitoring Suppl (Prosper ULTRA 2) w/Device KIT Use to check blood sugar 2 times a day; E11.9. 1 Kit 0 Active Glucose Blood (WallitUCH ULTRA BLUE) STRP Use to check blood [...] goal of less than 8.0% ([facility]) INJECT UNDER THE SKIN 0.75 [...] as of this encounter (statuses as of 12/25/2024) Active Problems Problem Noted Date Diagnosed Date [...] exam 08/04/2019 Overview (03/04/2024): 03/12 EGD [facility]-normal esoph, gastritis. Small hiatal hernia. Gastric 10mm diverticula 01/09 DEXA +osteoporosis. NEED discuss. 11/10 colon +tubular adenomas. 04/09 mult compression fractures. 05/2018 many polyps Therapeutic opioid induced constipation 08/04/20 ESRD on dialysis 09/08/2016 Overview (02/26/2021): 03/05 HCP forms given-wants . NEEDS further Living will 2017 consider transplant needs 20lb -HD [place] [facility]? T,R, S. Since January 2013. Spondylolisthesis [...] as of this encounter (statuses as of 12/25/2024) Resolved Problems Problem Noted Date Diagnosed Date Resolved Date Thoracic compression fracture 04/09/2021 04/13/2021 Overview (04/09/2021): Mult levels 04/09 CT [facility] + lumbar Respiratory symptoms 01/08/2020 021 Fever of unknown origin (FUO) 01/07/2020 02/26/2021 Respiratory infection 01/07/20202020 Cellulitis 06/28/2016 09/08/2016 Abnormal vaginal bleeding 02/12/2016 Cellulitis 02/07/2016 09/08/2016 UTI (urinary tract infection), bacterial 04/19/2014 05/02/2014 Hypotension 04/15/2014 05/02/2014 Compression of lumbar vertebra 02/03/2013 06/07/2021 Overview (04/09/2021): Mult levels noted 04/09 [facility] 08/25/200909/06 Overview (08/25/2009): Modified 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 manager intermediate current [...] s/p B/L stents Sees Dr. 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 If interested in therapy--For therapy, I recommend Guera Blakely at [facility] [address] [place] [address]. She has good access for appointments & is great! Here is her website: [email or web address] You can schedule with her by emailing: * Telephone Encounter - Isaac Rivera RPh - 12/24/2024 3:51 PM EST Patient Phone Numbers Called patient back. Clarified to her that MTM does not manage her anxiety. Needs to discuss with PCP. Will forward to PCP for further input Isaac Rivera PharmD, [facility] Toll Transmission Worker Clinical Pharmacist 12/24/2024, 3:54 PM * Telephone Encounter - Rose Mary Siu PHARM Tech - 12/24/2024 3:22 PM EST Caller's name: Meka Preferred call back number(OFFICE NUMBER FOR ): [phone] Reason for call: Pt is calling in stating her anxiety is really bad right now and she is asking forhelp. She was inquiring about a medication. Please advise. Thank you, Rose Mary Siu Structures Mechanic [facility] ([facility]) 12/24/2024, 3:23 PM documented in this encounter Plan of Treatment Upcoming Encounters Date Type Department Care Team (Late st Contact Info) Description 12/29/2024 2:00 PM EDT Office Visit [facility] [address] [place] [address] Coco Montanez DO [address] [place] [place] [address] 01/28/2025 11:40 AM EDT Office Visit Pharmacy, [facility] [address] [place] [address] [facility] [address] [place] [address] 03/22/2025 1:40 PM EDT Office Visit [facility] [address] [place] [address] Willie Epstein MD [address] [place] [address] 05/23/2025 3:00 PM EDT Office Visit Dermatology [address] [place] [address] Coco Ivan PA-C [address] [place] [address] [place] [address] 06/13/2025 11:00 AM EDT Cardiac Studies Cardiac Studies, [facility] [address] [place] [address] 07/04/2025 4:00 PM EDT Office Visit Cardiology, [facility] [address] [place] [address] Bandar Avila MD [address] [place] [address] Scheduled Procedures Name Priority Associated Diagnoses Date/Ti [...] encounter Medical Devices Implanted Type Area Refrigerator Car Icer Device Identifier Shelf Expiration Date Model / Serial / Lot Cement Antibiotic Bone - [id number] Implanted:Qty: 3 on 04/28/2012 at [place] [facility] Right: Hip VERONICA : ORTHOPAEDICS 11/19/2013 6197-9-010 / / [id number] Prostalac Acetabular Cup Implanted:Qty: 1 on 04/28/2012 at [facility] Right: Hip SUBHA & SUBHA DEPUY 05/19/2017 1541-42-320 / / [id number] Prostalac Hip Stem Size 105mm Std Offset Implanted:Qty: 1 on 04/28/2012 at [facility] Right: Hip SUBHA & SUBHA DEPUY 10/19/2021 1541-01-000 / / [id number] Description:Prostalac Hip St em Size 105mm Offset (Depuy) Ball Artic Wiliam Brn 32 Plus5 - [id number] Implanted:Qty: 1 on 04/28/2012 at OR [facility] Right: Hip JNJ : DEPUY ORTHOPAEDICS 10/19/2016 [id number] / / [id number] Rest Mod Prox Cone Body 23 +11 - [id number] Implanted:Qty: 1 on 04/14/2014 at [facility] Right: Hip VERONICA : ORTHOPAEDICS 10/19/2018 6276-1-123 / / [id number] Head Fem 28mm - [id number] Implanted:Qty: 1 on 04/14/2014 at OR [facility] Right: Hip VERONICA : ORTHOPAEDICS 08/19/2018 6570-0-228 / / [id number] Insert 28mm - [id number] Implanted:Qty: 1 on 04/14/2014 at [facility] Right: Hip VERONICA : ORTHOPAEDICS 02/16/2019 1236-2-848 / / [id number] Cable/Sle Beaded D/M 20 Vit - [id number] Implanted:Qty: 1 on 04/14/2014 at [facility] Right: Hip VERONICA : ORTHOPAEDICS 10/19/2017 6704-0-520 / / [id number] Cable/Sle Beaded D/M 20 Vit - [id number] Implanted:Qty: 1 on 04/14/2014 at OR [facility] Right: Hip VERONICA : ORTHOPAEDICS 10/19/2017 6704-0-520 / / [id number] Tritanium Revision Acetabular - [id number] Implanted:Qty: 1 on 04/14/2014 at OR [facility] Right: Hip VERONICA : ORTHOPAEDICS 05/19/2018 509-02-56E / / [id number] Screw Bone Osteolock 24 - [id number] Implanted:Qty: 1 on 04/14/2014 at OR [facility] Right: Hip VERONICA : ORTHOPAEDICS 02/16/2019 5260-5-024 / / [id number] Screw Bone Osteolock 35 - [id number] Implanted:Qty: 1 on 04/14/2014 at OR [facility] Right: Hip VERONICA : ORTHOPAEDICS 03/19/2017 5260-5-035 / / [id number] Liner 42mm - [id number] Implanted:Qty: 1 on 04/14/2014 at OR [facility] Right: Hip VERONICA : ORTHOPAEDICS 11/19/2018 626-00-42E / / [id number] Hip S Mod Conical Dis 91m937 - [id number] Implanted:Qty: 1 on 04/14/2014 at OR [facility] Right: Hip VERONICA : ORTHOPAEDICS 12/17/2018 6276-7-017 / / [id number] documented as of this encounter Advance Directives [...] and were consensually agreed upon. Care Teams Modeling Analyst Relationship Specialty Start Date End Date Willie Epstein MD [address] [place] [place] [address] PCP - General Family Medicine 11/22/16 documented as of this encounter
--- OUTSIDE RECORDS SUMMARY | 2025-02-24 07:29 | External Medical Summary | Summary of Care ---
Author Name Unknown Organization [facility] Address [address] [place] [address] Phone [phone] Care Team Providers Care Senior Telecommunications Engineer Name Role Phone Willie Epstein MD Primary Care Provider + Encounter Details Date Type Department Care Team (Late st Contact Info) Description 12/27/2024 Telephone Family Practice [facility] [address] [facility] [place] [address] Willie Epstein [facility] [address] [facility] [place] [address] Allergies Active Allergy Reactions Criticality Noted Date [...] Box of 100 11 10/04/ 8 Active RENAL MULTIVITAMIN/ZINC PO TABS None Entered Active ONETOUCH ULTRASOFT LANCETS MISCIndications:Ty pe 2 diabetes mellitus with hemoglobin A1c goal of less than 8.0% ([facility]) Use as directed 2 times a day. 1 Box Dosing Unit 11 7 Active cinacalcet (SENSIPAR) 30 MG Tablet Take 1 Tab by mouth daily with dinner. 90 Tab 3 8 Active Blood Glucose Monitoring Suppl (Dragon Law ULTRA 2) w/Device KIT Use to check blood sugar 2 times a day; E11.9. 1 Kit 0 Active Glucose Blood (Sicel TechnologiesUCH ULTRA BLUE) STRP Use to check blood [...] hemoglobin A1c goal of less than 8.0% ([facility]) INJECT UNDER THE SKIN 0.75 MG ONCE A WEEK 6 mL 1 5 Active oxyCODONE HCl 15 MG Oral Tablet (Roxicodone) Take 1 Tablet by mouth every 8 hours as needed for Pain, Severe. 21 Tablet 5 Active Buprenorphine 15 MCG/HR Transdermal Patch Weekly (Butranmelita)Indicatio ns:MEDICATION USE AGREEMENT,Spondylo listhesis of lumbosacral region,Lumbar [...] adult exam 08/04/2019 Overview (03/04/2024): 03/[address] [facility]-normal esoph, gastritis. Small hiatal hernia. Gastric 10mm diverticula 01/09 DEXA +osteoporosis. NEED discuss. 11/10 colon +tubular adenomas. 04/09 mult compression fractures. 05/2018 many polyps Therapeutic opioid induced constipation 08/04/20 19 ESRD on dialysis 09/08/2016 Overview (02/26/2021): 03/05 HCP forms given-wants . NEEDS further Living will 2017 consider transplant needs 20lb -HD [place] [facility]? T,R, S. Since January 2013. Spondylolisthesis [...] 04/13/2021 Overview (04/09/2021): Mult levels 04/[address] [facility] + lumbar Respiratory symptoms 01/08/2020 021 Fever of unknown origin (FUO) 01/07/2020 02/26/2021 Respiratory infection 01/07/20202020 Cellulitis 06/28/2016 09/08/2016 Abnormal vaginal bleeding 02/12/2016 Cellulitis 02/07/2016 09/08/2016 UTI (urinary tract infection), bacterial 04/19/2014 05/02/2014 Hypotension 04/15/2014 05/02/2014 Compression of lumbar vertebra 02/03/2013 06/07/2021 Overview (04/09/2021): Mult levels noted 04/[address] [facility] CT also thoracic CKD (chronic [...] s/p B/L stents Sees Dr. 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 Advised caller of time and date of next appt. Ellie Ochoa Lead Technician [facility] ([facility]) 12/27/2024,8:07 AM documented in this encounter Plan of Treatment Upcoming Encounters Date Type Department Care Team (Late st Contact Info) Description 12/29/2024 2:00 PM EDT Office Visit [facility] [address] [place] [address] Coco Montanez DO [address] [place] [address] 01/28/2025 11:40 AM EDT Office Visit Pharmacy, [facility] [address] [place] [address] [facility] [address] [place] [address] 03/22/2025 1:40 PM EDT Office Visit [facility] [address] [place] [address] Willie Epstein MD [address] [place] [place] [place] [address] 05/23/2025 3:00 PM EDT Office Visit Dermatology [address] [place] [address] Coco Ivan PA-C [address] [place] [address] [place] [address] 06/13/2025 11:00 AM EDT Cardiac Studies Cardiac Studies, [facility] [address] [place] [address] 07/04/2025 4:00 PM EDT Office Visit Cardiology, [facility] [address] [place] [address] Bandar Avila MD [address] [place] [address] Scheduled Procedures Name Priority Associated Diagnoses Date/Ti [...] this encounter Medical Devices Implanted Type Area Pocket Closer Device Identifier Shelf Expiration Date Model / Serial / Lot Cement Antibiotic Bone - [id number] Implanted:Qty: 3 on 04/28/2012 [place] [facility] [place] VERONICA : ORTHOPAEDICS 11/19/2013 6197-9-010 / / [id number] Prostalac Acetabular Cup Implanted:Qty: 1 on 04/28/2012 at [facility] Right: Hip SUBHA & SUBHA DEPUY 05/19/2017 1541-42-320 / / [id number] Prostalac Hip Stem Size 105mm Std Offset Implanted:Qty: 1 on 04/28/2012 [place] [facility] [place]: Hip SUBHA & SUBHA DEPUY 10/19/2021 1541-01-000 / / [id number] Description:Prostalac Hip St em Size 105mm Offset (Depuy) Ball Artic Wiliam Brn 32 Plus5 - [id number] Implanted:Qty: 1 on 04/28/2012 [place] [facility] [place]: Hip JNJ : DEPUY ORTHOPAEDICS 10/19/2016 [id number] / / [id number] Rest Mod Prox Cone Body 23 +11 - [id number] Implanted:Qty: 1 on 04/14/2014 [place] [facility] [place]: Hip VERONICA : ORTHOPAEDICS 10/19/2018 6276-1-123 / / [id number] Head Fem 28mm - [id number] Implanted:Qty: 1 on 04/14/2014 [place] [facility] [place]: Hip VERONICA : ORTHOPAEDICS 08/19/2018 6570-0-228 / / [id number] Insert 28mm - [id number] Implanted:Qty: 1 on 04/14/2014 at [place] [facility] [place]: Hip VERONICA : ORTHOPAEDICS 02/16/2019 1236-2-848 / / [id number] Cable/Sle Beaded D/M 20 Vit - [id number] Implanted:Qty: 1 on 04/14/2014 at [place] [facility] [place]: Hip VERONICA : ORTHOPAEDICS 10/19/2017 6704-0-520 / / [id number] Cable/Sle Beaded D/M 20 Vit - [id number] Implanted:Qty: 1 on 04/14/2014 at [facility] Right: Hip VERONICA : ORTHOPAEDICS 10/19/2017 6704-0-520 / / [id number] Tritanium Revision Acetabular - [id number] Implanted:Qty: 1 on 04/14/2014 at [facility] Right: Hip VERONICA : ORTHOPAEDICS 05/19/2018 509-02-56E / / [id number] Screw Bone Osteolock 24 - [id number] Implanted:Qty: 1 on 04/14/2014 at [facility] Right: Hip VERONICA : ORTHOPAEDICS 02/16/2019 5260-5-024 / / [id number] Screw Bone Osteolock 35 - [id number] Implanted:Qty: 1 on 04/14/2014 at [facility] Right: Hip VERONICA : ORTHOPAEDICS 03/19/2017 5260-5-035 / / [id number] Liner 42mm - [id number] Implanted:Qty: 1 on 04/14/2014 [place] [facility] [place]: Hip VERONICA : ORTHOPAEDICS 11/19/2018 626-00-42E / / [id number] Hip S Mod Conical Dis 45g967 - [id number] Implanted:Qty: 1 on 04/14/2014 [place] [facility] [place]: Hip VERONICA : ORTHOPAEDICS 12/17/2018 6276-7-017 / / [id number] documented as of this encounter Advance Directives [...] and were consensually agreed upon. Care Teams Senior Telecommunications Engineer Relationship Specialty Start Date End Date Willie Epstein MD [address] [facility] [place] [address] PCP - General Family Medicine 11/22/16 documented as of this encounter
--- OUTSIDE RECORDS SUMMARY | 2025-02-24 07:29 | External Medical Summary | Summary of Care ---
Author Name Unknown Organization [facility] Address [address] [place] [address] Phone [phone] Care Team Providers Care Pacu Rn Name Role Phone Willie Epstein MD Primary Care Provider + Reason for Visit * Reason Onset Date Comments Other 12/24/2024 Encounter Details Date Type Department Care Team (Late st Contact Info) Description 12/24/2024 Telephone Pharmacy, [facility] [address] [address] [facility] [address] [id number] Other Allergies Active Allergy Reactions Criticality Noted Date Comments Cefazolin Unknown 11/15/2023 Other Reaction(s): CAN'T REMEMBER Methylprednisolone Other (Please comment) 07/28/2017 Side effects c/w med (sweating, heart racing etc) Nitrofurantoin Hives High 03/01/2024 Nitrofurantoin Monohyd Macro Hives 04/04/2014 Pantoprazole Unknown 11/15/2023 Other Reaction(s): CAN'T REMEMBER Sulfa Antibiotics Edema face/lips/tongue High 09/02/2008 documented as of this encounter (statuses as of 12/24/2024) Medications INSULIN SYRINGE-NEEDLE U-100 30G X 1/2" 1 ML MISCIndications:DM type 2, goal A1c below 7 Use as directed 1 Box of 100 11 8 Active RENAL MULTIVITAMIN/ZINC PO TABS None Entered Active AudioCatchTOUCH ULTRASOFT LANCETS MISCIndications:Ty pe 2 diabetes mellitus with hemoglobin A1c goal of less than 8.0% ([facility]) Use as directed 2 times a day. 1 Box Dosing Unit 11 7 Active cinacalcet (SENSIPAR) 30 MG Tablet Take 1 Tab by mouth daily with dinner. 90 Tab 3 8 Active Blood Glucose Monitoring Suppl (Wokup ULTRA 2) w/Device KIT Use to check blood sugar 2 times a day; E11.9. 1 Kit 0 Active Glucose Blood (Big Box LabsUCH ULTRA BLUE) STRP Use to check [...] than 8.0% ([facility]) INJECT UNDER THE SKIN 0.75 MG [...] as of this encounter (statuses as of 12/24/2024) Active Problems Problem Noted Date Diagnosed Date [...] will 2017 consider transplant needs 20lb -HD [place] [facility]? T,R, S. Since January 2013. Spondylolisthesis [...] as of this encounter (statuses as of 12/24/2024) Resolved Problems Problem Noted Date Diagnosed Date [...] 08/25/200909/06 Overview (08/25/2009): Modified 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 [address] [place] [address]. She has good access for appointments & is great! Here is her website: [email or web address] You can schedule with her by emailing: [email or web address] * Telephone Encounter - Isaac Rivera RPh - 12/24/2024 3:51 PM EST Patient Phone Numbers Called patient back. Clarified to her that MTM does not manage her anxiety. Needs to discuss with PCP. Will forward to PCP for further input Isaac Rivera PharmD, [facility] Child Development Consultant Clinical Pharmacist 12/24/2024, 3:54 PM Electronically signed by Isaac Rivera [facility] at 12/24/2024 3:54 PM EST * Telephone Encounter - Rose Mary Siu PHARM Tech - 12/24/2024 3:22 PM EST Caller's name: Meka Preferred call back number(OFFICE NUMBER FOR ): [phone] Reason for call: Pt is calling in stating her anxiety is really bad right now and she is asking forhelp. She was inquiring about a medication. Please advise. Thank you, Rose Mary Siu Application Systems Administrator [facility] ([facility]) 12/24/2024, 3:23 PM documented in this encounter Plan of Treatment Upcoming Encounters Date Type Department Care Team (Late st Contact Info) Description 12/29/2024 2:00 PM EDT Office Visit [facility] [address] [place] [address] Coco Montanez DO [address] [place] [place] [address] 01/28/2025 11:40 AM EDT Office Visit Pharmacy, [facility] [address] [place] [address] [facility] [address] [place] [address] 03/22/2025 1:40 PM EDT Office Visit [facility] [address] [place] [address] Willie Epstein MD [address] [place] [address] 05/23/2025 3:00 PM EDT Office Visit Dermatology [address] [place] [address] Coco Ivan PA-C [address] [place] [address] [place] [address] 06/13/2025 11:00 AM EDT Cardiac Studies Cardiac Studies, [facility] [address] [place] [address] 07/04/2025 4:00 PM EDT Office Visit Cardiology, [facility] [address] [place] [address] Bandar Avila MD [address] [place] [address] Scheduled Procedures Name Priority Associated Diagnoses Date/Ti [...] this encounter Medical Devices Implanted Type Area Microphone Boom Operator Device Identifier Shelf Expiration Date Model / Serial / Lot Cement Antibiotic Bone - [id number] Implanted:Qty: 3 on 04/28/2012 [place] [facility] [place] Hip VERONICA : ORTHOPAEDICS 11/19/2013 6197-9-010 / / [id number] Prostalac Acetabular Cup Implanted:Qty: 1 on 04/28/2012 at [facility] Right: Hip SUBHA & SUBHA DEPUY 05/19/2017 1541-42-320 / / [id number] Prostalac Hip Stem Size 105mm Std Offset Implanted:Qty: 1 on 04/28/2012 at [facility] Right: Hip SUBHA & SUBHA DEPUY 10/19/2021 1541-01-000 / / [id number] Description:Prostalac Hip St em Size 105mm Offset (Depuy) Ball Artic Wiliam Brn 32 Plus5 - [id number] Implanted:Qty: 1 on 04/28/2012 at [place] [facility] [place]: Hip JNJ : DEPUY ORTHOPAEDICS 10/19/2016 [id number] / / [id number] Rest Mod Prox Cone Body 23 +11 - [id number] Implanted:Qty: 1 on 04/14/2014 at [facility] Right: Hip VEORNICA : ORTHOPAEDICS 10/19/2018 6276-1-123 / / [id number] Head Fem 28mm - [id number] Implanted:Qty: 1 on 04/14/2014 [place] [facility] [place]: Hip VERONICA : ORTHOPAEDICS 08/19/2018 6570-0-228 / / [id number] Insert 28mm - [id number] Implanted:Qty: 1 on 04/14/2014 at [facility] Right: Hip VERONICA : ORTHOPAEDICS 02/16/2019 1236-2-848 / / [id number] Cable/Sle Beaded D/M 20 Vit - [id number] Implanted:Qty: 1 on 04/14/2014 at [facility] Right: Hip VERONICA : ORTHOPAEDICS 10/19/2017 6704-0-520 / / [id number] Cable/Sle Beaded D/M 20 Vit - [id number] Implanted:Qty: 1 on 04/14/2014 at [place] [facility] [place]: Hip VERONICA : ORTHOPAEDICS 10/19/2017 6704-0-520 / / [id number] Tritanium Revision Acetabular - [id number] Implanted:Qty: 1 on 04/14/2014 at [place] [facility] [place]: Hip VERONICA : ORTHOPAEDICS 05/19/2018 509-02-56E / / [id number] Screw Bone Osteolock 24 - [id number] Implanted:Qty: 1 on 04/14/2014 at [place] [facility] [place]: Hip VERONICA : ORTHOPAEDICS 02/16/2019 5260-5-024 / / [id number] Screw Bone Osteolock 35 - [id number] Implanted:Qty: 1 on 04/14/2014 at [place] [facility] [place] Right: Hip VERONICA : ORTHOPAEDICS 03/19/2017 5260-5-035 / / [id number] Liner 42mm - [id number] Implanted:Qty: 1 on 04/14/2014 at [place] [facility] [place] Right: Hip VERONICA : ORTHOPAEDICS 11/19/2018 626-00-42E / / [id number] Hip S Mod Conical Dis 60b249 - [id number] Implanted:Qty: 1 on 04/14/2014 at [place] [facility] [place]: Hip VERONICA : ORTHOPAEDICS 12/17/2018 6276-7-017 / / [id number] documented as of this encounter Advance Directives [...] and were consensually agreed upon. Care Teams Pacu Rn Relationship Specialty Start Date End Date Willie Epstein MD [address] [place] [place] [address] PCP - General Family Medicine 11/22/16 documented as of this encounter
--- OUTSIDE RECORDS SUMMARY | 2025-02-24 07:29 | External Medical Summary | Summary of Care ---
Author Name Unknown Organization [facility] Address [address] [place] [address] Phone [phone] Care Team Providers Care Descriptive Catalog Librarian Name Role Phone Willie Epstein MD Primary Care Provider + Reason for Visit * Reason Onset Date Comments Advice 12/24/2024 Encounter Details Date Type Department Care Team (Late st Contact Info) Description 12/24/2024 Telephone Family Practice [facility] [address] [place] [address] Willie Epstein MD [address] [place] [place] [address] Advice Allergies Active Allergy Reactions Criticality Noted [...] 3 8 Active Blood Glucose Monitoring Suppl (Spoonity ULTRA 2) w/Device KIT Use to check blood sugar 2 times a day; E11.9. 1 Kit 0 Active Glucose Blood (TaggableUCH ULTRA BLUE) STRP Use to check blood [...] less than 8.0% ([facility]) INJECT UNDER THE SKIN 0.75 MG ONCE [...] will 2017 consider transplant needs 20lb -HD [place] [facility]? T,R, S. Since January 2013. Spondylolisthesis [...] 08/25/200909/06 Overview (08/25/2009): Modified 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 care home current [...] s/p B/L stents Sees Dr. 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 Answer Date of Assessment Author No 01/07/2020 6:50 PM EDMoriah Gomez RN * Are you blind or do [...] Encounter - Willie Epstein MD - 12/24/2024 5:44 PM EST See other encounter, MYG sent. * Telephone Encounter - Alka Jaimes OSA - 12/24/2024 9:32 AM EST Patient requesting to leave a message for Dr. Epstein. Patient states she is going through a lot ofanxiety and would like to know if there is anything she could take to help her through this. Patient has upcoming appt for hospital discharge 12/29/24 documented in this encounter Plan of Treatment Upcoming Encounters Date Type Department Care Team (Late st Contact Info) Description 12/29/2024 2:00 PM EDT Office Visit [facility] [address] [place] [address] Coco Montanez DO [address] [place] [address] 01/28/2025 11:40 AM EDT Office Visit Pharmacy, [facility] [address] [place] [address] [facility] [address] [place] [address] 03/22/2025 1:40 PM EDT Office Visit [facility] [address] [place] [address] Willie Epstein MD [address] [place] [address] 05/23/2025 3:00 PM EDT Office Visit Dermatology [address] [place] [address] Coco Ivan PA-C [address] [place] [address] [place] [address] 06/13/2025 11:00 AM EDT Cardiac Studies Cardiac Studies, [facility] [address] [place] [address] 07/04/2025 4:00 PM EDT Office Visit Cardiology, [facility] [address] [place] [address] Bandar Avila MD [address] [place] [address] Scheduled Procedures Name Priority Associated Diagnoses Date/Ti [...] this encounter Medical Devices Implanted Type Area Rag Baler Device Identifier Shelf Expiration Date Model / Serial / Lot Cement Antibiotic Bone - [id number] Implanted:Qty: 3 on 04/28/2012 at [place] [facility] [place] Right: Hip VERONICA : ORTHOPAEDICS 11/19/2013 6197-9-010 / / [id number] Prostalac Acetabular Cup Implanted:Qty: 1 on 04/28/2012 at [place] [facility] [place] Right: Hip SUBHA & SUBHA DEPUY 05/19/2017 1541-42-320 / / [id number] Prostalac Hip Stem Size 105mm Std Offset Implanted:Qty: 1 on 04/28/2012 at [facility] [place] Right: Hip SUBHA & SUBHA DEPUY 10/19/2021 1541-01-000 / / [id number] Description:Prostalac Hip St em Size 105mm Offset (Depuy) Ball Artic Wiliam Brn 32 Plus5 - [id number] Implanted:Qty: 1 on 04/28/2012 at [facility] [place] Right: Hip JNJ : DEPUY ORTHOPAEDICS 10/19/2016 [id number] / / [id number] Rest Mod Prox Cone Body 23 +11 - [id number] Implanted:Qty: 1 on 04/14/2014 at [facility] Right: Hip VERONICA : ORTHOPAEDICS 10/19/2018 6276-1-123 / / [id number] Head Fem 28mm - [id number] Implanted:Qty: 1 on 04/14/2014 at [facility] Right: Hip VERONICA : ORTHOPAEDICS 08/19/2018 6570-0-228 / / [id number] Insert 28mm - [id number] Implanted:Qty: 1 on 04/14/2014 at [facility] Right: Hip VERONICA : ORTHOPAEDICS 02/16/2019 1236-2-848 / / [id number] Cable/Sle Beaded D/M 20 Vit - [id number] Implanted:Qty: 1 on 04/14/2014 at [facility] Right: Hip VERONICA : ORTHOPAEDICS 10/19/2017 6704-0-520 / / [id number] Cable/Sle Beaded D/M 20 Vit - [id number] Implanted:Qty: 1 on 04/14/2014 at [facility] Right: Hip VERONICA : ORTHOPAEDICS 10/19/2017 6704-0-520 / / [id number] Tritanium Revision Acetabular - [id number] Implanted:Qty: 1 on 04/14/2014 at [facility] Right: Hip VERONICA : ORTHOPAEDICS 05/19/2018 509-02-56E / / [id number] Screw Bone Osteolock 24 - [id number] Implanted:Qty: 1 on 04/14/2014 at [facility] Right: Hip VERONICA : ORTHOPAEDICS 02/16/2019 5260-5-024 / / [id number] Screw Bone Osteolock 35 - [id number] Implanted:Qty: 1 on 04/14/2014 at [facility] Right: Hip VERONICA : ORTHOPAEDICS 03/19/2017 5260-5-035 / / [id number] Liner 42mm - [id number] Implanted:Qty: 1 on 04/14/2014 at [facility] Right: Hip VERONICA : ORTHOPAEDICS 11/19/2018 626-00-42E / / [id number] Hip S Mod Conical Dis 58i368 - [id number] Implanted:Qty: 1 on 04/14/2014 at [facility] Right: Hip VERONICA : ORTHOPAEDICS 12/17/2018 6276-7-017 / / [id number] documented as of this encounter Advance Directives [...] and were consensually agreed upon. Care Teams Descriptive Catalog Librarian Relationship Specialty Start Date End Date Willie Epstein MD [address] [place] [address] PCP - General Family Medicine 11/22/16 documented as of this encounter
--- OUTSIDE RECORDS SUMMARY | 2025-02-24 07:30 | External Medical Summary | Summary of Care ---
Author Name Unknown Organization [facility] Address [address] [place] [address] Phone [phone] Care Team Providers Care Image Assembler Name Role Phone Willie Epstein MD Primary Care Provider + Reason for Visit * Reason Comments Dosage Adjustment In Person (Anticoag Cl inic) Pain Encounter Details Date Type Department Care Team ([facility] st Contact Info) Description 12/15/2024 11:00 AM EST Office Visit Pharmacy, [facility] [address] [place] [address] [facility] [address] [place] [address] Type 2 diabetes mellitus with ESRD (end-stage renal disease) ([facility])* Allergies Active Allergy Reactions Criticality Noted Date Comments Cefazolin Unknown 11/15/2023 Other Reaction(s): CAN'T REMEMBER Methylprednisolone Other (Please comment) 07/28/2017 Side effects c/w med (sweating, heart racing etc) Nitrofurantoin Hives High 03/01/2024 Nitrofurantoin Monohyd Macro Hives 04/04/2014 Pantoprazole Unknown 11/15/2023 Other Reaction(s): CAN'T REMEMBER Sulfa Antibiotics Edema face/lips/tongue High 09/02/2008 documented as of this encounter (statuses as of 12/15/2024) Medications INSULIN SYRINGE-NEEDLE U-100 30G X 1/2" [...] 3 8 Active Blood Glucose Monitoring Suppl (Infusionsoft ULTRA 2) w/Device KIT Use to check blood sugar 2 times a day; E11.9. 1 Kit 0 Active Glucose Blood (Digital Solid State PropulsionTOUCH ULTRA BLUE) STRP Use to check blood [...] as of this encounter (statuses as of 12/15/2024) Active Problems Problem Noted Date Diagnosed Date [...] adult exam 08/04/2019 Overview (03/04/2024): 03/12 EGD [facility]-normal esoph, gastritis. Small hiatal hernia. Gastric 10mm diverticula 01/09 DEXA +osteoporosis. NEED discuss. 11/10 colon +tubular adenomas. 04/09 mult compression fractures. 05/2018 many polyps Therapeutic opioid induced constipation 08/04/20 19 ESRD on dialysis 09/08/2016 Overview (02/26/2021): 03/05 HCP forms given-wants . NEEDS further Living will 2017 consider transplant needs 20lb -HD [facility]? T,R, S. Since January 2013. Spondylolisthesis [...] as of this encounter (statuses as of 12/15/2024) Resolved Problems Problem Noted Date Diagnosed Date Resolved Date Thoracic compression fracture 04/09/2021 04/13/2021 Overview (04/09/2021): Mult levels 04/09 CT [facility] + lumbar Respiratory symptoms 01/08/2020 021 Fever of unknown origin (FUO) 01/07/2020 02/26/2021 Respiratory infection 01/07/20202020 Cellulitis 06/28/2016 09/08/2016 Abnormal vaginal bleeding 02/12/2016 Cellulitis 02/07/2016 09/08/2016 UTI (urinary tract infection), bacterial 04/19/2014 05/02/2014 Hypotension 04/15/2014 05/02/2014 Compression of lumbar vertebra 02/03/2013 06/07/2021 Overview (04/09/2021): Mult levels noted 04/09 [facility] CT also thoracic CKD (chronic [...] 08/25/200909/06 Overview (08/25/2009): Modified 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 Angel in [place] for Urology Osteoarthritis of hip 2018 documented as of this encounter (statuses as of 12/15/2024) Immunizations Name Administration Dates Next Due COVID-19 mRNA, LNP-s, No Pre serve, 2-Dose Series (Pfizer) 09/11/2021,01/02/2021,12/12/2020 COVID-19, mRNA, LNP-s, PF, B ooster, 100mcg/0.5mg (Moderna) 02/26/2022 Covid-19, Mrna, Lnp-s, Pf, B ivalent, 30 Mcg, IM, 12 yrs and above (Pfizer) 07/01/2022 H1N1 2009 Influenza, IM 10/17/2009 HEPATITIS B VACCINE, RECOMB, 20 MCG/ML, ADULT (HEPLISAV-B) 06/01/2024,05/28/2022,04/04/2022,02/26,01/29/2022 Hepatitis B, 0-19 yrs 03/07/2016,2015,11/02/2015,09/14,05/11/2013,04/13/2013,03/16/2013 Hepatitis B, 20+ yrs 03/07/2016,12/09/19 16,11/02/2015,09/14,05/11/2013,04/13/2013,03/16/2013 Pneumococcal [...] Industry 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 Not on file Not on [...] 01/07/2020 6:50 PM EDMoriah Gomez RN * Do you have difficulty dressing [...] Moriah Harris RN documented in this encounter Progress Notes * Arlene Elise, [facility] - 12/15/2024 11:04 AM EST Images from the original note were not included. Medication Therapy Disease Management - Chronic Pain History of Presenting Illness This visit occurred in person. Meka Hess, identified by name and date of , is a 69 year old female presents to the [facility] for initial visit. Chief Complaint Patient presents with Dosage Adjustment In Person ([facility]) Pain History Current Pain Medications Oxycodone 15 mg q8hrs prn Gabapentin 100 mg daily plus 100 mg after dialysis Butrans 15 mcg/hour *citalopram Interval History Patient has not had oxycodone in over a month Patient now currently on 10 mcg patches, notes she did try two at once but found little relief Patient was unable to get butrans 15 mcg due to pharmacy needing to order but they are in pharmacy now awaiting communications supervisor Comorbidities Renal: Dialysis MWF Activity/Exercise Limited, uses a walker Functional Goal(s) QOL PDMP Reviewed (12/15/2024): I have reviewed the patient's controlled substance dispensing history in the Prescription Drug Monitoring Program in compliance with the [facility] regulations. History of Presenting Illness & [...] results for input(s): "ALT" in the last 40514 hours. Comprehensive Metabolic Panel Results: Results for [...] hydromorphone or rotation to butrans Patient agreeable to trial butrans 15 mcg, if not helpful will try 20 mcg and then if not helpful will discuss another alternative Consider effexor or namenda Treatment Concerns Tolerance with opioid Dialysis considerations Education Provided Patient educated on mechanism, time to efficacy and potential adverse effects of medication regimen Recommendations START: Butrans 15 mcg/hour Continue to hold oxycodone Meka verbalized understanding of the plan. Contact clinic with any issues. Visit date not found I spent a total of 20-29 (25 minutes) on the date of service in preparation, delivery, and documentation of the care provided to Meka Hess excluding any time spent in the performance of separately billed services or time spent by another provider/QHP. Arlene Elise [facility] Clinical Pharmacist - Public Events Facilities Rental Manager Medication Therapy Management Clinic 12/15/2024 - 11:04 AM documented in this encounter Plan of Treatment Upcoming Encounters Date Type Department Care Team (Late st Contact Info) Description 01/28/2025 11:40 AM EDT Office Visit Pharmacy, [facility] [address] [address] [facility] [address] [address] 03/22/2025 1:40 PM EDT Office Visit Family Practice [facility] [address] [address] Willie Epstein MD [address] [place] [address] 05/23/2025 3:00 PM EDT Office Visit Dermatology [address] [place] [address] Coco Ivan PA-C [address] [place] [address] [place] [address] 06/13/2025 11:00 AM EDT Cardiac Studies Cardiac Studies, [facility] [address] [place] [address] 07/04/2025 4:00 PM EDT Office Visit Cardiology, [facility] [address] [place] [address] Bandar Avila MD [address] [place] [id number] Scheduled Procedures Name Priority Associated Diagnoses Date/Ti [...] this encounter Medical Devices Implanted Type Area Central Supply Manager Device Identifier Shelf Expiration Date Model / Serial / Lot Cement Antibiotic Bone - [id number] Implanted:Qty: 3 on 04/28/2012 at [facility] Right: Hip VERONICA : [employer] 11/19/2013 [id number] / / [id number] Prostalac Acetabular Cup Implanted:Qty: 1 on 04/28/2012 at [facility] Right: Hip SUBHA & [employer]HA DEPU[employer] 05/19/2017 [id number] / / [id number] Prostalac Hip Stem Size 105mm Std Offset Implanted:Qty: 1 on 04/28/2012 at [facility] Right: Hip SUBHA [employer]HA DEPU[employer] 10/19/2021 1541-01-000 / / [id number] Description:Prostalac Hip St em Size 105mm Offset (Depuy) Ball Artic Wiliam Brn 32 Plus5 - [id number] Implanted:Qty: 1 on 04/28/2012 at [facility] Right: Hip JNJ : [employer] 10/19/2016 [id number] / / [id number] Rest Mod Prox Cone Body 23 +11 - [id number] Implanted:Qty: 1 on 04/14/2014 at [facility] Right: Hip [employer] : [employer] 10/19/2018 6276-1-123 / / [id number] Head Fem 28mm - [id number] Implanted:Qty: 1 on 04/14/2014 at [facility] Right: Hip [employer] : [employer] 08/19/2018 6570-0-228 / / [id number] Insert 28mm - [id number] Implanted:Qty: 1 on 04/14/2014 at [facility] Right: Hip [employer] : [employer] 02/16/2019 1236-2-848 / / [id number] Cable/Sle Beaded D/M 20 Vit - [id number] Implanted:Qty: 1 on 04/14/2014 at [facility] Right: Hip [employer] : [employer] 10/19/2017 6704-0-520 / / [id number] Cable/Sle Beaded D/M 20 Vit - [id number] Implanted:Qty: 1 on 04/14/2014 at [facility] Right: Hip [employer] : [employer] 10/19/2017 6704-0-520 / / [id number] Tritanium Revision Acetabular - [id number] Implanted:Qty: 1 on 04/14/2014 at [facility] Right: Hip [employer] : [employer] 05/19/2018 [id number] / / [id number] Screw Bone Osteolock 24 - [id number] Implanted:Qty: 1 on 04/14/2014 at [facility] Right: Hip [employer] : [employer] 02/16/2019 5260-5-024 / / [id number] Screw Bone Osteolock 35 - [id number] Implanted:Qty: 1 on 04/14/2014 at [facility] Right: Hip [employer] : [employer] 03/19/2017 5260-5-035 / / [id number] Liner 42mm - [id number] Implanted:Qty: 1 on 04/14/2014 at [facility] Right: Hip [employer] : [employer] 11/19/2018 [id number] / / [id number] Hip S Mod Conical Dis 25o494 - [id number] Implanted:Qty: 1 on 04/14/2014 at [facility] Right: Hip [employer] : [employer] 12/17/2018 6276-7-017 / / [id number] documented as of this encounter Visit Diagnoses [...] and were consensually agreed upon. Care Teams Image Assembler Relationship Specialty Start Date End Date Willie Epstein MD [address] [place] [address] PCP - General Family Medicine 11/22/16 documented as of this encounter
--- OUTSIDE RECORDS SUMMARY | 2025-02-24 07:30 | External Medical Summary | Summary of Care ---
Author Name Unknown Organization [facility] Address [address] [place] [address] Phone [phone] Care Team Providers Care Crane Assembler Name Role Phone Willie Pizarro MD Primary Care Provider + Reason for Visit * Reason Onset Date Comments Medication Refill 12/07/2024 Encounter Details Date Type Department Care Team (Late st Contact Info) Description 12/07/2024 Refill Family Practice [facility] [address] [place] [address] Willie Pizarro MD [address] [place] [address] Spondylolisthesis of lumbosacral region*; Opiate dependence, continuous (HCC); MEDICATION USE AGREEMENT; Lumbar back pain Allergies Active Allergy Reactions Criticality Noted Date Comments Cefazolin Unknown 11/15/2023 Other Reaction(s): CAN'T REMEMBER Methylprednisolone Other (Please comment) 07/28/2017 Side effects c/w med (sweating, heart racing etc) Nitrofurantoin Hives High 03/01/2024 Nitrofurantoin Monohyd Macro Hives 04/04/2014 Pantoprazole Unknown 11/15/2023 Other Reaction(s): CAN'T REMEMBER Sulfa Antibiotics Edema face/lips/tongue High 09/02/2008 documented as of this encounter (statuses as of 12/13/2024) Medications INSULIN SYRINGE-NEEDLE U-100 30G X 1/2" 1 ML MISCIndications:D M type 2, goal A1c below 7 Use as directed 1 Box of 100 11 008 Active RENAL MULTIVITAMIN/ZINC PO TABS None Entered Active Church[employer] Can CoTOUCH ULTRASOFT LANCETS MISCIndications:T ype 2 diabetes mellitus with hemoglobin A1c goal of less than 8.0% ([facility]) Use as directed 2 times a day. 1 Box Dosing Unit 11 017 Active cinacalcet (SENSIPAR) 30 MG Tablet Take 1 Tab by mouth daily with dinner. 90 Tab 3 018 Active Blood Glucose Monitoring Suppl ([employer] ULTRA 2) w/Device KIT Use to check blood sugar 2 times a day; E11.9. 1 Kit 020 Active Glucose Blood (Church[employer] Can CoTOUCH ULTRA BLUE) STRP Use to check blood sugar 2 times a day; E11.9. 200 Box Dosing Unit 3 020 Active Albuterol Sulfate HFA 108 (90 Base) MCG/ACT Inhalation Aerosol SolutionIndicatio ns:Bronchitis, complicated TAKE 2 PUFFS BY MOUTH EVERY 6 HOURS NEEDED FOR WHEEZE 18 g 023 Active Betamethasone Dipropionate 0.05 % External OintmentIndicatio ns:Plaque psoriasis APPLY 2X DAILY (OR MORE IF ITCHY INSTEAD OF SCRATCHING) TO AFFECTED PSORIASIS SPOTS ON ARMS/LEGS UNTIL RESOLVED 50 g 1 024 Active Aspirin 81 MG Oral Tablet Chewable Take 1 Tablet by mouth in the morning. ON HOLD OF 03/02/24. Active Lansoprazole 30 MG Oral Capsule Delayed Release (Prevacid) Take 1 Capsule by mouth in the morning and 1 Capsule in the evening. 180 Capsule 2 024 Active Additional Information Patient not taking.Reported on 09/20/2024 Gabapentin 100 MG Oral Capsule (Neurontin)Indica tions:Spondylolis thesis of lumbosacral region TAKE 1 CAPSULE BY MOUTH DAILY + 1 DOSE EXTRA AFTER DIALYSIS EVERY 3 DAYS. 135 Capsule 2 024 Active rOPINIRole HCl 2 MG Oral Tablet (Requip) TAKE 1 TABLET BY MOUTH AT BEDTIME. 1-3 HOURS BEFORE BEDTIME WITH FOOD FOR RESTLESS LEGS 90 Tablet 3 024 Active Citalopram Hydrobromide 20 MG Oral Tablet (CeleXA) TAKE 1 TABLET BY MOUTH EVERY DAY 90 Tablet 1 Active Triamcinolone Acetonide 0.1 % External Ointment (Aristocort)Indic ations:Inverse psoriasis APPLY 2X DAILY DURING WEEK (OFF ON WEEKENDS) TO PSORIASIS UNDER BREASTS UNTIL RESOLVED, THEN WHEN FLARING 454 g Active Simvastatin 20 MG Oral Tablet (Zocor)Indication s:Dyslipidemia, goal LDL below 70 TAKE ONE TABLET BY MOUTH ONCE A DAY AT BEDTIME 90 Tablet Active Molnupiravir 200 MG Oral Capsule Take 4 Capsules by mouth in the morning and 4 Capsules before bedtime. 40 Capsule Active dexAMETHasone 6 MG Oral Tablet (Decadron) Take 1 Tablet by mouth in the morning. Active Midodrine HCl 2.5 MG Oral Tablet (Proamatine) Take 2 Tablets by mouth in the morning and 2 Tablets at noon and 2 Tablets before bedtime. Active Ondansetron 4 MG Oral Tablet Disintegrating (Zofran) Place 1 Tablet on tongue daily as needed for Nausea or Vomiting. Active Trulicity 0.75 MG/0.5ML Subcutaneous Solution Auto-injector (Dulaglutide)Ruba cations:Type 2 diabetes mellitus with hemoglobin A1c goal of less than 8.0% ([facility]) INJECT UNDER THE SKIN 0.75 MG ONCE A WEEK 6 mL 1 Active Silver sulfADIAZINE 1 % External Cream (Silvadene) Apply topically to affected area daily. Apply to ulcer 400 g 1 Active oxyCODONE HCl 15 MG Oral Tablet (Roxicodone) Take 1 Tablet by mouth every 8 hours as needed for Pain, Severe. 21 Tablet Active Buprenorphine 15 MCG/HR Transdermal Patch Weekly (Butrans)Indicati ons:MEDICATION USE AGREEMENT,Spondyl olisthesis of lumbosacral region,Lumbar back pain Place 15 mcg topically on the skin once a week. 4 Patch Active Buprenorphine 10 MCG/HR Transdermal Patch Weekly (Butrans) Place 1 Patch over 7 days topically on the skin once a week. 4 Patch 3 11/30/19 25 5:30 PM EST 2024 Discontinued oxyCODONE HCl 15 MG Oral Tablet (Roxicodone) Take 1 Tablet by mouth every 8 hours as needed for Pain, Severe. 90 Tablet 025 2024 Discontinued(R efill) Cephalexin 500 MG Oral Capsule Take 1 Capsule by mouth every night at bedtime for 10 days. Or dinner. 10 Capsule 025 2024 Buprenorphine 15 MCG/HR Transdermal Patch Weekly (Vinay)Indicati ons:Opiate dependence, continuous (HCC),MEDICATION USE AGREEMENT,Spondyl olisthesis of lumbosacral region Place 15 mcg topically on the skin once for 1 dose. 4 Patch 025 2024 Discontinued(R efill) documented as of this encounter (statuses as of 12/13/2024) Active Problems Problem Noted Date Diagnosed Date [...] adult exam 08/04/2019 Overview (03/04/2024): 03/12 EGD [facility]-normal esoph, gastritis. Small hiatal hernia. Gastric 10mm diverticula 01/09 DEXA +osteoporosis. NEED discuss. 11/10 colon +tubular adenomas. 04/09 mult compression fractures. 05/2018 many polyps Therapeutic opioid induced constipation 08/04/20 19 ESRD on dialysis 09/08/2016 Overview (02/26/2021): 03/05 HCP forms given-wants . NEEDS further Living will 2017 consider transplant needs 20lb -HD [place] [facility]? T,R, S. Since January 2013. Spondylolisthesis [...] as of this encounter (statuses as of 12/13/2024) Resolved Problems Problem Noted Date Diagnosed Date Resolved Date Thoracic compression fracture 04/09/2021 04/13/2021 Overview (04/09/2021): Mult levels 04/09 CT [facility] + lumbar Respiratory symptoms 01/08/2020 021 Fever of unknown origin (FUO) 01/07/2020 02/26/2021 Respiratory infection 01/07/20202020 Cellulitis 06/28/2016 09/08/2016 Abnormal vaginal bleeding 02/12/2016 Cellulitis 02/07/2016 09/08/2016 UTI (urinary tract infection), bacterial 04/19/2014 05/02/2014 Hypotension 04/15/2014 05/02/2014 Compression of lumbar vertebra 02/03/2013 06/07/2021 Overview (04/09/2021): Mult levels noted 04/[address] [facility] [address] also thoracic CKD (chronic [...] 08/25/200909/06 Overview (08/25/2009): Modified 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 custodial current use [...] s/p B/L stents Sees Dr. 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 Pizarro, patient is to continue to take Oxycodone 3 times per day until the patches come in at the pharmacy. Called and explained the instructions and all questions answered. Reason for Call: Medication Refill Contact: Telephone Call Contact Type: Information Provider In-Basket: Yes Outcome: see above Face to face time spent with Patient (minutes): 0 Total Time including non face to face (minutes): 10 * Telephone Encounter - Chelsea Reis RN - 12/10/2024 3:39 PM EST Provider to address: Called and spoke with Madi at [facility] pharmacy in [place]. Prescriptions clarified with him. He does state that he will not be able to get the patches until Friday at the earliest. If this isneeded sooner, please call them to cancel and send to another pharmacy. Reason for Call: Medication Refill Contact: Telephone Call Contact Type: Information Provider In-Basket: Yes Outcome: see above Face to face time spent with Patient (minutes): 0 Total Time including non face to face (minutes): 10 * Addendum Note - Willie Pizarro MD - 12/10/2024 2:38 PM ESTAddended by: WILLIE PIZARRO on: 12/10/2024 02:38 PM Modules accepted: Orders * Telephone Encounter - Willie Pizarro MD - 12/10/2024 2:37 PM EST Notify [facility] pharmacy---I sent corrected Butrans patch Rx--use weekly. We are transitioning her from oxycodone to Butrans. 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 I removed Dx code to clarify. * Telephone Encounter - Mckenzie Askew LPN - 12/10/2024 2:12 PM EST [facility] called not [facility] as pt has never used [facility] Called [facility] - pharmacist there today is not 100% as to what the reasoning for the call 2 possible issues with Butrans - sig says for 1 dose & they cannot break boxes & diagnosis of opioid dependence - that would lean more toward suboxone * Telephone Encounter - Marie Spicer model and mold maker - 12/09/2024 3:04 PM EST Coco from [facility] pharmacy called asking if they can have a call back at [phone] to talk about both the Buprenorphine 15 and oxyCODONE HCl [address] that [address] them on hold until shegets a call, please advise Thank you, Marie Spicer,[facility] Valve Grinder II [facility] ([facility]) 12/09/2024, 3:05 PM * Telephone Encounter - Willie Pizarro MD - 12/09/2024 2:18 PM EST Called pt. Pain not well controlled on Butrans 10 Did see wound clinic yesterday for leg ulcer. Will send in new Rx for 15mg, discussed with MTM Will do 1 wk oxy refill w/plan to d/c Cc: Clifton MARI. * Telephone Encounter - Eryn Cortez PHARM Tech - 12/09/2024 1:53 PM EST Pt calling to check on status of patch that she is requesting for ulcer on her ankle. Pt is in substantial amount of pain and would like to resolve today. Either the patch or Oxycodone today. If agreeable send script to [facility]/PHARMACY [id number] Thank you, Eryn Cortez Oracle Technical Developer I [facility] ([facility]) 12/09/2024,1:56 PM * Telephone Encounter - Edie Serna OSA - 12/09/2024 12:14 PM EST Pt is returning call and was advised. Pt would like to increase Butrans if not able to get a refillon oxycodone. Pt says that she is in a lot of pain and does not understand why she can not continuewith the medication she is requesting. Pt says that she was told by Willie Pizarro MD at last apptthat she would be able to continue with medication. Pt would also like Willie Pizarro MD to know that the bump on he ankle that was discussed at last appt turned out to be an ulcer and she will be being seen at wound clinic for it and it is also attributing to her pain. * Telephone Encounter - Arlene Elise [facility] - 12/09/2024 8:02 AM EST I find it hard to believe that Butrans is not helping at all, but yes I would offer an increase at this time, since she has been on the patch for >7 days. She also told me in her last appointment that oxycodone did nothing. Arlene Ochoa * Telephone Encounter - Willie Pizarro MD - 12/08/2024 11:00 PM EST Refused Prescriptions: Disp Refills oxyCODONE HCl 15 MG Oral Tablet (Roxicodon*90 Tab*0 Sig: Take 1 Tablet by mouth every 8 hours as needed for Pain, Severe. Refused By: WILLIE PIZARRO Reason for Refusal: Unexpected request: Telephone review of med list * Telephone Encounter - Willie Pizarro MD - 12/08/2024 10:59 PM EST Baron Jacobs--should we offer sooner bump in Butrans? (See her call below) * Telephone Encounter - Nakita Campoverde CPhT - 12/08/2024 5:18 PM EST Patient stated butran patch doesn't work at all, its the 2nd one and no relief. Patch is still on tomorrow but after tomorrow she is requesting to go back on oxycodone 15 mg tablet. Please advise Thank you, Nakita Campoverde CPhT Valve Grinder III [facility] ([facility]) [address] [place] [address], [address] [phone] * Telephone Encounter - Latisha De La Torre RN - 12/08/2024 4:13 PM EST Message left on voicemail. * Telephone Encounter - Willie Pizarro MD - 12/08/2024 3:28 PM EST Refused Prescriptions: Disp Refills oxyCODONE HCl 15 MG Oral Tablet (Roxicodon*90 Tab*0 Sig: Take 1 Tablet by mouth every 8 hours as needed for Pain, Severe. Refused By: WILLIE PIZARRO Reason for Refusal: Unexpected request: Telephone review of med list * Telephone Encounter - Willie Pizarro MD - 12/08/2024 3:26 PM EST Nursing-please call pt--remind pt plan is to stop oxycodone after 1 week on Butrans patch (which isnow), so she should not renew it.. If pain not well controlled in the next week, we can increase patch dose when she sees pain team scheduled for next Friday. I reviewed with Clifton REAGAN * Telephone Encounter - Jo Ann Palacios CPhT - 12/08/2024 1:31 PM EST Patient calling to check on status of refill request asking id med can be ordered today she has none Thank you, Jo Ann Palacios Valve Grinder II [facility] ([facility] (formerly Telepharmacy) 12/08/2024 1:31 PM * Telephone Encounter - Percy Redmond, [facility] - 12/07/2024 12:59 PM ESTPending Prescriptions: Disp Refills oxyCODONE HCl 15 MG Oral Tablet (Roxicodon*90 Tab*0 Sig: Take 1 Tablet by mouth every 8 hours as needed for Pain, Severe. * Telephone Encounter - Percy Redmond, [facility] - 12/07/2024 12:58 PM EST I have reviewed the patient’s controlled substance dispensing history in the Prescription Drug Monitoring Program in compliance with the [facility] regulations before prescribing a controlled substance. PDMP checked on 12/07/2024. Pending Prescriptions: Disp Refills oxyCODONE HCl 15 MG Oral Tablet (Roxicodo*90 Tab*0 Sig: Take 1 Tablet by mouth every 8 hours as needed for Pain, Severe. Last Visit: 11/30/2024 (in office), 01/21/2024 (telemedicine) Next Visit: 03/22/2025 Date medication was last filled: 11/08/24 Date medication is due for refill: 12/07/24 Pharmacy: [facility]/PH[facility]ACY [id number] Is this request for a controlled substance? [...] Results Review. Please approve if appropriate. Thank You, Percy Johnson [facility] Clinical Pharmacist [facility] ([facility]) 12/07/2024, 12:59 PM * Telephone Encounter - Bhupinder Vergara PHARM Tech - 12/07/2024 12:42 PM EST Did you pend patient's preferred pharmacy and medication before forwarding?yes Pharmacy: [facility]Y [id number] [id number] [facility] Pending Prescriptions: Disp Refills oxyCODONE HCl 15 MG Oral Tablet (Roxicodo*90 Tab*0 Sig: Take 1 Tablet by mouth every 8 hours as needed for Pain, Severe. Last Visit: 11/30/2024 (in office), 01/21/2024 (telemedicine) Next Visit: 03/22/2025 If no future appointments scheduled, and last appointment is greater than a year ago, please schedule patient for a follow-up appointment Last date the medication was ordered: 11/08/2024 Is this request for a controlled substance?Yes, What was the last refill date 11/08/2024 w/ quantity 90 and dosage 15 MG and Urine Drug Screen was completed Urine [...] found in Results Review. Patient Phone Numbers [employer] [phone] Labs: Lab Results Component Value Date/Time CREAT [...] 12/15/2024 11:00 AM EST Office Visit Pharmacy, [facility] [address] [address] [facility] [place] [address] [address] [place] [address] 03/22/2025 1:40 PM EDT Office Visit Family Practice [facility] [address] [address] Willie Pizarro MD [address] [address] 05/23/2025 3:00 PM EDT Office Visit Dermatology [address] [place] [address] Coco Ivan PA-C [address] [place] [address] [place] [address] 06/13/2025 11:00 AM EDT Cardiac Studies Cardiac Studies, [facility] [address] [address] 07/04/2025 4:00 PM EDT Office Visit Cardiology, [facility] [address] [address] Bandar Avila MD [address] [place] [address] Scheduled Procedures Name Priority Associated Diagnoses Date/Ti [...] this encounter Medical Devices Implanted Type Area Chalk Cutter Device Identifier Shelf Expiration Date Model / Serial / Lot Cement Antibiotic Bone - [id number] Implanted:Q[place] 3 on 04/28/2012 [place] [facility] [place] Hip VERONICA : [employer] 11/19/2013 6197-9-010 / / [id number] Prostalac Acetabular Cup Implanted:Qty: 1 on 04/28/2012 [place] [facility] [place]: Hip SUBHA & SUBHA DEPUY 05/19/2017 1541-42-320 / / [id number] Prostalac Hip Stem Size 105mm Std Offset Implanted:Qty: 1 on 04/28/2012 at [facility] Right: Hip SUBHA & SUBHA DEPUY 10/19/2021 1541-01-000 / / [id number] Description:Prostalac Hip St em Size 105mm Offset (Depuy) Ball Artic Wiliam Brn 32 Plus5 - [id number] Implanted:Qty: 1 on 04/28/2012 [place] [facility] [place]: Hip JNJ : DEPUY ORTH[employer] 10/19/2016 [id number] / / [id number] Rest Mod Prox Cone Body 23 +11 - [id number] Implanted:Qty: 1 on 04/14/2014 at [facility] Right: Hip VERONICA : OR[employer] 10/19/2018 6276-1-123 / / [id number] Head Fem 28mm - [id number] Implanted:Qty: 1 on 04/14/2014 [place] [facility] [place]: Hip [employer] : [employer] 08/19/2018 6570-0-228 / / [id number] Insert 28mm - [id number] Implanted:Qty: 1 on 04/14/2014 [place] [facility] [place]: Hip [employer] : [employer] 02/16/2019 1236-2-848 / / [id number] Cable/Sle Beaded D/M 20 Vit - [id number] Implanted:Qty: 1 on 04/14/2014 at [facility] Right: Hip [employer]ICA : [employer] 10/19/2017 6704-0-520 / / [id number] Cable/Sle Beaded D/M 20 Vit - [id number] Implanted:Qty: 1 on 04/14/2014 at [facility] Right: Hip [employer]ICA : OR[employer] 10/19/2017 6704-0-520 / / [id number] Tritanium Revision Acetabular - [id number] Implanted:Qty: 1 on 04/14/2014 at [facility] Right: Hip VER[employer]ICA : ORTH[employer] 05/19/2018 [id number] / / [id number] Screw Bone Osteolock 24 - [id number] Implanted:Qty: 1 on 04/14/2014 at [facility] Right: Hip [employer]ICA : ORTH[employer] 02/16/2019 5260-5-024 / / [id number] Screw Bone Osteolock 35 - [id number] Implanted:Qty: 1 on 04/14/2014 at [facility] Right: Hip VER[employer]ICA : ORTH[employer] 03/19/2017 5260-5-035 / / [id number] Liner 42mm - [id number] Implanted:Qty: 1 on 04/14/2014 at [facility] Right: Hip VERONICA : ORTH[employer] 11/19/2018 626-00-42E / / [id number] Hip S Mod Conical Dis 86o454 - [id number] Implanted:Qty: 1 on 04/14/2014 at [facility] Right: Hip [employer]ICA : OR[employer] 12/17/2018 6276-7-017 / / [id number] documented as of this encounter Visit Diagnoses Diagnosis Spondylolisthesis of lumbosacral region- Primary Acquired spondylolisthesis Opiate dependence, continuous (HCC) Opioid type dependence, continuous MEDICATION USE AGREEMENT Lumbar back pain Lumbago documented in this encounter Advance Directives * [...] and were consensually agreed upon. Care Teams Crane Assembler Relationship Specialty Start Date End Date Willie Pizarro MD [address] [place] [address] PCP - General Family Medicine 11/22/16 documented as of this encounter
--- OUTSIDE RECORDS SUMMARY | 2025-02-24 07:30 | External Medical Summary | Summary of Care ---
Author Name Unknown Organization [facility] Address [address] [place] [address] Phone [phone] Care Team Providers Care Lead Presser Name Role Phone Willie Epstein MD Primary Care Provider + Reason for Visit * Reason Onset Date Comments Hospital Follow-Up 12/24/2024 YOSEF ([facility]) Encounter Details Date Type Department Care Team ([facility] st Contact Info) Description 12/24/2024 Telephone [facility] [address] [place] [address] Ruby Palacios RN Hospital Follow-Up (YOSEF ([facility])) Allergies Active Allergy Reactions Criticality Noted [...] RENAL MULTIVITAMIN/ZINC PO TABS None Entered Active Audience PartnersTOUCH ULTRASOFT LANCETS MISCIndications:Ty pe 2 diabetes mellitus with hemoglobin A1c goal of less than 8.0% ([facility]) Use as directed 2 times a day. 1 Box Dosing Unit 11 7 Active cinacalcet (SENSIPAR) 30 MG Tablet Take 1 Tab by mouth daily with dinner. 90 Tab 3 8 Active Blood Glucose Monitoring Suppl ([employer] ULTRA 2) w/Device KIT Use to check blood sugar 2 times a day; E11.9. 1 Kit 0 Active Glucose Blood (QlikaUCH ULTRA BLUE) STRP Use to check blood [...] less than 8.0% ([facility]) INJECT UNDER THE SKIN 0.75 MG ONCE [...] adult exam 08/04/2019 Overview (03/04/2024): 03/12 EGD [facility]-normal esoph, gastritis. Small hiatal hernia. Gastric 10mm diverticula 01/09 DEXA +osteoporosis. NEED discuss. 11/10 colon +tubular adenomas. 04/09 mult compression fractures. 05/2018 many polyps Therapeutic opioid induced constipation 08/04/20 ESRD on dialysis 09/08/2016 Overview (02/26/2021): 03/05 HCP forms given-wants . NEEDS further Living will 2017 consider transplant needs 20lb -HD [place] [facility]? T,R, S. Since January 2013. Spondylolisthesis [...] 04/13/2021 Overview (04/09/2021): Mult levels 04/09 CT [facility] + lumbar Respiratory symptoms 01/08/2020 021 Fever of unknown origin (FUO) 01/07/2020 02/26/2021 Respiratory infection 01/07/20202020 Cellulitis 06/28/2016 09/08/2016 Abnormal vaginal bleeding 02/12/2016 Cellulitis 02/07/2016 09/08/2016 UTI (urinary tract infection), bacterial 04/19/2014 05/02/2014 Hypotension 04/15/2014 05/02/2014 Compression of lumbar vertebra 02/03/2013 06/07/2021 Overview (04/09/2021): Mult levels noted 04/[address] [facility] [address] also thoracic CKD (chronic [...] Overview (08/25/2009): Modified 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 * Telephone Encounter - Ruby Palacios RN - 12/24/2024 11:23 AM EST Transitions of Care Note Reason for Referral:Recent Admission Phone visit for follow up: YOSEF #1 Admitted to: [facility], Date: 12/21/2024 Discharged to: Home, Date: 12/23/2024 Diagnosis driving hospitalization: Influenza A Pneumonia, Acute on Chronic Hypoxic Respiratory Failure Attempted Phone Call First Attempt Call Outcome Left Voicemail/Message Message left on voicemail for patient. When they call back please transfer them to me at [phone]. If you are unable to reach me or my voicemail please route this message back to me. Thank you. documented in this encounter Plan of Treatment Upcoming Encounters Date Type Department Care Team (Late st Contact Info) Description 12/29/2024 2:00 PM EDT Office Visit [facility] [address] [place] [address] Coco Montanez DO [address] [place] [address] 01/28/2025 11:40 AM EDT Office Visit Pharmacy, [facility] [address] [place] [address] [facility] [address] [place] [address] 03/22/2025 1:40 PM EDT Office Visit [facility] [address] [place] [address] Willie Epstein MD [address] [place] [address] 05/23/2025 3:00 PM EDT Office Visit Dermatology [facility] [address] [place] [address] Coco Ivan PA-C [address] [place] [address] [place] [address] 06/13/2025 11:00 AM EDT Cardiac Studies Cardiac Studies, [facility] [place] [address] 07/04/2025 4:00 PM EDT Office Visit Cardiology, [facility] [address] [facility] [place] [address] Bandar Avila MD [address] [place] [place] [address] Scheduled Procedures Name Priority Associated Diagnoses Date/Ti [...] this encounter Medical Devices Implanted Type Area Environmental Services Assistant Device Identifier Shelf Expiration Date Model / Serial / Lot Cement Antibiotic Bone - [id number] Implanted:Qty: 3 on 04/28/2012 [place] [facility] VERONICA : ORTHOPAEDICS 11/19/2013 6197-9-010 / / [id number] Prostalac Acetabular Cup Implanted:Qty: 1 on 04/28/2012 at [place] [facility] [place]: Hip SUBHA & SUBHA DEPUY 05/19/2017 1541-42-320 / / [id number] Prostalac Hip Stem Size 105mm Std Offset Implanted:Qty: 1 on 04/28/2012 at [place] [facility] Right: Hip SUBHA & SUBHA DEPUY 10/19/2021 1541-01-000 / / [id number] Description:Prostalac Hip St em Size 105mm Offset (Depuy) Ball Artic Wiliam Brn 32 Plus5 - [id number] Implanted:Qty: 1 on 04/28/2012 at [place] [facility] [place]: Hip JNJ : DEPUY ORTHOPAEDICS 10/19/2016 [id number] / / [id number] Rest Mod Prox Cone Body 23 +11 - [id number] Implanted:Qty: 1 on 04/14/2014 at [place] [facility] [place]: Hip VERONICA : ORTHOPAEDICS 10/19/2018 6276-1-123 / / [id number] Head Fem 28mm - [id number] Implanted:Qty: 1 on 04/14/2014 at [place] [facility] Right: Hip VERONICA : ORTHOPAEDICS 08/19/2018 6570-0-228 / / [id number] Insert 28mm - [id number] Implanted:Qty: 1 on 04/14/2014 at [facility] Right: Hip VERONICA : ORTHOPAEDICS 02/16/2019 1236-2-848 / / [id number] Cable/Sle Beaded D/M 20 Vit - [id number] Implanted:Qty: 1 on 04/14/2014 at [facility] Right: Hip VERONICA : ORTHOPAEDICS 10/19/2017 6704-0-520 / / [id number] Cable/Sle Beaded D/M 20 Vit - [id number] Implanted:Qty: 1 on 04/14/2014 at [facility] Right: Hip VERONICA : ORTHOPAEDICS 10/19/2017 6704-0-520 / / [id number] Tritanium Revision Acetabular - [id number] Implanted:Qty: 1 on 04/14/2014 at [place] [facility] [place]: Hip VERONICA : ORTHOPAEDICS 05/19/2018 509-02-56E / / [id number] Screw Bone Osteolock 24 - [id number] Implanted:Qty: 1 on 04/14/2014 at [facility] Right: Hip VERONICA : ORTHOPAEDICS 02/16/2019 5260-5-024 / / [id number] Screw Bone Osteolock 35 - [id number] Implanted:Qty: 1 on 04/14/2014 at [facility] Right: Hip VERONICA : ORTHOPAEDICS 03/19/2017 5260-5-035 / / [id number] Liner 42mm - [id number] Implanted:Qty: 1 on 04/14/2014 at [place] [facility] [place]: Hip VERONICA : ORTHOPAEDICS 11/19/2018 626-00-42E / / [id number] Hip S Mod Conical Dis 07o620 - [id number] Implanted:Qty: 1 on 04/14/2014 at [place] [facility] [place]: Hip VERONICA : ORTHOPAEDICS 12/17/2018 6276-7-017 / / [id number] documented as of this encounter Advance Directives [...] and were consensually agreed upon. Care Teams Lead Presser Relationship Specialty Start Date End Date Willie Epstein MD [address] [address] PCP - General Family Medicine 11/22/16 documented as of this encounter
--- OUTSIDE RECORDS SUMMARY | 2025-02-24 07:30 | External Medical Summary | Summary of Care ---
Author Name Unknown Organization [facility] Address [address] [place] [address] Phone [phone] Care Team Providers Care Wood Heel Cementer Name Role Phone Willie Epstein MD Primary Care Provider + Reason for Visit * Reason Onset Date Comments Hospital Follow-Up 12/24/2024 YOSEF ([facility]) Encounter Details Date Type Department Care Team ([facility] st Contact Info) Description 12/24/2024 Telephone [facility] [address] [place] [address] Ruby Palacios RN Hospital Follow-Up (YOSEF ([facility])) Allergies Active Allergy Reactions Criticality Noted Date [...] RENAL MULTIVITAMIN/ZINC PO TABS None Entered Active InksharesTOUCH ULTRASOFT LANCETS MISCIndications:Ty pe 2 diabetes mellitus with hemoglobin A1c goal of less than 8.0% ([facility]) Use as directed 2 times a day. 1 Box Dosing Unit 11 7 Active cinacalcet (SENSIPAR) 30 MG Tablet Take 1 Tab by mouth daily with dinner. 90 Tab 3 8 Active Blood Glucose Monitoring Suppl ([employer] ULTRA 2) w/Device KIT Use to check blood sugar 2 times a day; E11.9. 1 Kit 0 Active Glucose Blood (MedicastUCH ULTRA BLUE) STRP Use to check blood [...] of less than 8.0% ([facility]) INJECT UNDER THE SKIN 0.75 MG ONCE [...] exam 08/04/2019 Overview (03/04/2024): 03/12 EGD [facility]-normal esoph, gastritis. Small hiatal hernia. Gastric 10mm diverticula 01/09 DEXA +osteoporosis. NEED discuss. 11/10 colon +tubular adenomas. 04/09 mult compression fractures. 05/2018 many polyps Therapeutic opioid induced constipation 08/04/20 ESRD on dialysis 09/08/2016 Overview (02/26/2021): 03/05 HCP forms given-wants . NEEDS further Living will 2017 consider transplant needs 20lb -HD [place] [facility]? T,R, S. Since January 2013. Spondylolisthesis [...] Overview (04/09/2021): Mult levels 04/09 CT [facility] + lumbar Respiratory symptoms 01/08/2020 021 Fever of unknown origin (FUO) 01/07/2020 02/26/2021 Respiratory infection 01/07/20202020 Cellulitis 06/28/2016 09/08/2016 Abnormal vaginal bleeding 02/12/2016 Cellulitis 02/07/2016 09/08/2016 UTI (urinary tract infection), bacterial 04/19/2014 05/02/2014 Hypotension 04/15/2014 05/02/2014 Compression of lumbar vertebra 02/03/2013 06/07/2021 Overview (04/09/2021): Mult levels noted 04/[address] [facility] [address] also thoracic CKD (chronic kidney disease), [...] 08/25/200909/06 Overview (08/25/2009): Modified 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 * Telephone Encounter - Ruby Palacios RN - 12/24/2024 11:23 AM EST Transitions of Care Note Reason for Referral:Recent Admission Phone visit for follow up: YOSEF #1 Admitted to: [facility], Date: 12/21/2024 Discharged to: Home, Date: 12/23/2024 Diagnosis driving hospitalization: Influenza A Pneumonia, Acute on Chronic Hypoxic Respiratory Failure Attempted Phone Call First Attempt Call Outcome Left Voicemail/Message Message left on voicemail for patient. When they call back please transfer them to me at [phone]. If you are unable to reach me or my voicemail please route this message back to me. Thank you. documented in this encounter Plan of Treatment Upcoming Encounters Date Type Department Care Team (Late st Contact Info) Description 12/29/2024 2:00 PM EDT Office Visit [facility] [address] [place] [address] Coco Montanez DO [address] [place] [address] 01/28/2025 11:40 AM EDT Office Visit Pharmacy, [facility] [address] [place] [address] [facility] [address] [place] [address] 03/22/2025 1:40 PM EDT Office Visit [facility] [address] [place] [address] Willie Epstein MD [address] [place] [place] [address] 05/23/2025 3:00 PM EDT Office Visit Dermatology [facility] [place] [place] [address] Coco Ivan PA-C [address] [place] [address] [place] [address] 06/13/2025 11:00 AM EDT Cardiac Studies Cardiac Studies, [facility] [place] [address] 07/04/2025 4:00 PM EDT Office Visit Cardiology, [facility] 132 [facility] [place] [address] Bandar Avila MD [address] [place] [place] [address] Scheduled Procedures Name Priority Associated Diagnoses Date/Ti [...] this encounter Medical Devices Implanted Type Area Facility Planner Device Identifier Shelf Expiration Date Model / Serial / Lot Cement Antibiotic Bone - [id number] Implanted:Qty: 3 on 04/28/2012 at [place] [facility] [place] Right: Hip VERONICA : ORTHOPAEDICS 11/19/2013 6197-9-010 / / [id number] Prostalac Acetabular Cup Implanted:Qty: 1 on 04/28/2012 at [place] [facility] [place] Right: Hip SUBHA & SUBHA DEPUY 05/19/2017 1541-42-320 / / [id number] Prostalac Hip Stem Size 105mm Std Offset Implanted:Qty: 1 on 04/28/2012 at [place] [facility] [place] Right: Hip SUBHA & SUBHA DEPUY 10/19/2021 1541-01-000 / / [id number] Description:Prostalac Hip St em Size 105mm Offset (Depuy) Ball Artic Wiliam Brn 32 Plus5 - [id number] Implanted:Qty: 1 on 04/28/2012 at [place] [facility] Right: Hip JNJ : DEPUY ORTHOPAEDICS 10/19/2016 [id number] / / [id number] Rest Mod Prox Cone Body 23 +11 - [id number] Implanted:Qty: 1 on 04/14/2014 at [place] [facility] [place] Right: Hip VERONICA : ORTHOPAEDICS 10/19/2018 6276-1-123 / / [id number] Head Fem 28mm - [id number] Implanted:Qty: 1 on 04/14/2014 at [place] [facility] Right: Hip VERONICA : ORTHOPAEDICS 08/19/2018 6570-0-228 / / [id number] Insert 28mm - [id number] Implanted:Qty: 1 on 04/14/2014 at [facility] Right: Hip VERONICA : ORTHOPAEDICS 02/16/2019 1236-2-848 / / [id number] Cable/Sle Beaded D/M 20 Vit - [id number] Implanted:Qty: 1 on 04/14/2014 at [facility] Right: Hip VERONICA : ORTHOPAEDICS 10/19/2017 6704-0-520 / / [id number] Cable/Sle Beaded D/M 20 Vit - [id number] Implanted:Qty: 1 on 04/14/2014 at [facility] Right: Hip VERONICA : ORTHOPAEDICS 10/19/2017 6704-0-520 / / [id number] Tritanium Revision Acetabular - [id number] Implanted:Qty: 1 on 04/14/2014 at [place] [facility] Right: Hip VERONICA : ORTHOPAEDICS 05/19/2018 509-02-56E / / [id number] Screw Bone Osteolock 24 - [id number] Implanted:Qty: 1 on 04/14/2014 at [facility] Right: Hip VERONICA : ORTHOPAEDICS 02/16/2019 5260-5-024 / / [id number] Screw Bone Osteolock 35 - [id number] Implanted:Qty: 1 on 04/14/2014 at [facility] Right: Hip VERONICA : ORTHOPAEDICS 03/19/2017 5260-5-035 / / [id number] Liner 42mm - [id number] Implanted:Qty: 1 on 04/14/2014 at [place] [facility] Right: Hip VERONICA : ORTHOPAEDICS 11/19/2018 626-00-42E / / [id number] Hip S Mod Conical Dis 30n271 - [id number] Implanted:Qty: 1 on 04/14/2014 at [place] [facility] Right: Hip VERONICA : ORTHOPAEDICS 12/17/2018 6276-7-017 / / [id number] documented as of this encounter Advance Directives [...] and were consensually agreed upon. Care Teams Wood Heel Cementer Relationship Specialty Start Date End Date Willie Epstein MD [address] [address] PCP - General Family Medicine 11/22/16 documented as of this encounter
--- OUTSIDE RECORDS SUMMARY | 2025-02-24 07:30 | External Medical Summary | Summary of Care ---
Author Name Unknown Organization [facility] Address [address] [place] [address] Phone [phone] Care Team Providers Care It Security Consultant Name Role Phone Willie Epstein MD Primary Care Provider + Reason for Visit * Reason Onset Date Comments Other 12/24/2024 Encounter Details Date Type Department Care Team (Late st Contact Info) Description 12/24/2024 Telephone Centralized Clinical Pharmacy Services, Tashia Chowdhury [address] [place] [address] [place] [address] [address] [id number] Other Allergies Active Allergy Reactions Criticality Noted [...] of less than 8.0% ([facility]) Use as directed 2 times a day. 1 Box Dosing Unit 11 7 Active cinacalcet (SENSIPAR) 30 MG Tablet Take 1 Tab by mouth daily with dinner. 90 Tab 3 8 Active Blood Glucose Monitoring Suppl (Virtualtwo ULTRA 2) w/Device KIT Use to check blood sugar 2 times a day; E11.9. 1 Kit 0 Active Glucose Blood (3TEN8UCH ULTRA BLUE) STRP Use to check blood [...] of less than 8.0% ([facility]) INJECT UNDER THE SKIN 0.75 MG [...] exam 08/04/2019 Overview (03/04/2024): 03/12 EGD [facility]-normal esoph, gastritis. Small hiatal hernia. Gastric 10mm diverticula 01/09 DEXA +osteoporosis. NEED discuss. 11/10 colon +tubular adenomas. 04/09 mult compression fractures. 05/2018 many polyps Therapeutic opioid induced constipation 08/04/20 ESRD on dialysis 09/08/2016 Overview (02/26/2021): 03/05 HCP forms given-wants . NEEDS further Living will 2017 consider transplant needs 20lb -HD [place] [facility]? T,R, S. Since January 2013. Spondylolisthesis [...] Overview (04/09/2021): Mult levels 04/09 CT [facility] + lumbar Respiratory symptoms 01/08/2020 021 Fever of unknown origin (FUO) 01/07/2020 02/26/2021 Respiratory infection 01/07/20202020 Cellulitis 06/28/2016 09/08/2016 Abnormal vaginal bleeding 02/12/2016 Cellulitis 02/07/2016 09/08/2016 UTI (urinary tract infection), bacterial 04/19/2014 05/02/2014 Hypotension 04/15/2014 05/02/2014 Compression of lumbar vertebra 02/03/2013 06/07/2021 Overview (04/09/2021): Mult levels noted 04/[address] [facility] [address] also thoracic CKD (chronic [...] (08/25/2009): Modified 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 Isaac Rivera, PharmD, [facility] Household Refrigerator Mechanic Clinical Pharmacist 12/24/2024, 1:16 PM * Telephone Encounter - Karolyn Cee CPhT - 12/24/2024 9:36 AM EST Caller's name: Meka Preferred call back number(OFFICE NUMBER FOR ): [phone] Reason for call: Pt calling to speak with the [facility] about her anxiety, she said she just got discharged from the hospital and she has so much anxiety. Pt would like a return call from the [facility]. Karolyn Cee Animal Feeder Centralized Clinical Pharmacy Services 12/24/2024,9:36 AM documented in this encounter Plan of Treatment Upcoming Encounters Date Type Department Care Team (Late st Contact Info) Description 12/29/2024 2:00 PM EDT Office Visit [facility] [address] [place] [address] Coco Montanez DO [address] [place] [address] 01/28/2025 11:40 AM EDT Office Visit Pharmacy, [facility] [address] [place] [address] [facility] [address] [place] [address] 03/22/2025 1:40 PM EDT Office Visit [facility] [address] [place] [address] Willie Epstein MD [address] [place] [address] 05/23/2025 3:00 PM EDT Office Visit Dermatology [address] [place] [address] Coco Ivan PA-C [address] [place] [address] [place] [address] 06/13/2025 11:00 AM EDT Cardiac Studies Cardiac Studies, [facility] [address] [place] [place] [address] 07/04/2025 4:00 PM EDT Office Visit Cardiology, [facility] [address] [place] [place] [address] Bandar Avila MD [address] [place] [place] [address] Scheduled Procedures Name Priority Associated Diagnoses Date/Ti [...] this encounter Medical Devices Implanted Type Area Apartment Leasing Agent Device Identifier Shelf Expiration Date Model / Serial / Lot Cement Antibiotic Bone - [id number] Implanted:Qty: 3 on 04/28/2012 [place] [facility] VERONICA : ORTHOPAEDICS 11/19/2013 6197-9-010 / / [id number] Prostalac Acetabular Cup Implanted:Qty: 1 on 04/28/2012 [place] [facility] [place]: Hip SUBHA & SUBHA DEPUY 05/19/2017 1541-42-320 / / [id number] Prostalac Hip Stem Size 105mm Std Offset Implanted:Qty: 1 on 04/28/2012 [place] [facility] [place]: Hip SUBHA & SUBHA DEPUY 10/19/2021 1541-01-000 / / [id number] Description:Prostalac Hip St em Size 105mm Offset (Depuy) Ball Artic Wiliam Brn 32 Plus5 - [id number] Implanted:Qty: 1 on 04/28/2012 [place] [facility] [place]: Hip JNJ : DEPUY ORTHOPAEDICS 10/19/2016 [id number] / / [id number] Rest Mod Prox Cone Body 23 +11 - [id number] Implanted:Qty: 1 on 04/14/2014 at [place] [facility] [place]: Hip VERONICA : ORTHOPAEDICS 10/19/2018 6276-1-123 / / [id number] Head Fem 28mm - [id number] Implanted:Qty: 1 on 04/14/2014 at [facility] Right: Hip VERONICA : ORTHOPAEDICS 08/19/2018 6570-0-228 / / [id number] Insert 28mm - [id number] Implanted:Qty: 1 on 04/14/2014 at [facility] Right: Hip VERONICA : ORTHOPAEDICS 02/16/2019 1236-2-848 / / [id number] Cable/Sle Beaded D/M 20 Vit - [id number] Implanted:Qty: 1 on 04/14/2014 at [facility] Right: Hip VERONICA : ORTHOPAEDICS 10/19/2017 6704-0-520 / / [id number] Cable/Sle Beaded D/M 20 Vit - [id number] Implanted:Qty: 1 on 04/14/2014 at [facility] Right: Hip VERONICA : ORTHOPAEDICS 10/19/2017 6704-0-520 / / [id number] Tritanium Revision Acetabular - [id number] Implanted:Qty: 1 on 04/14/2014 at [facility] Right: Hip VERONICA : ORTHOPAEDICS 05/19/2018 509-02-56E / / [id number] Screw Bone Osteolock 24 - [id number] Implanted:Qty: 1 on 04/14/2014 [place] [facility] [place]: Hip VERONICA : ORTHOPAEDICS 02/16/2019 5260-5-024 / / [id number] Screw Bone Osteolock 35 - [id number] Implanted:Qty: 1 on 04/14/2014 [place] [facility] [place]: Hip VERONICA : ORTHOPAEDICS 03/19/2017 5260-5-035 / / [id number] Liner 42mm - [id number] Implanted:Qty: 1 on 04/14/2014 at [facility] Right: Hip VERONICA : ORTHOPAEDICS 11/19/2018 626-00-42E / / [id number] Hip S Mod Conical Dis 55m265 - [id number] Implanted:Qty: 1 on 04/14/2014 at [facility] Right: Hip VERONICA : ORTHOPAEDICS 12/17/2018 6276-7-017 / / [id number] documented as of this encounter Advance Directives [...] and were consensually agreed upon. Care Teams It Security Consultant Relationship Specialty Start Date End Date Willie Epstein MD [address] [place] [address] PCP - General Family Medicine 11/22/16 documented as of this encounter
--- OUTSIDE RECORDS SUMMARY | 2025-02-24 07:30 | External Medical Summary | Summary of Care ---
Author Name Unknown Organization [facility] Address [address] [place] [address] Phone [phone] Care Team Providers Care Color Straining Bag Washer Name Role Phone Willie Epstein MD Primary Care Provider + Reason for Visit * Reason Onset Date Comments Hospital Follow-Up 12/24/2024 [facility] ([facility]) Encounter Details Date Type Department Care Team ([facility] st Contact Info) Description 12/24/[address] [facility] [address] [place] [address] Ruby Palacios RN Hospital Follow-Up ([facility] ([facility])) Allergies Active Allergy Reactions Criticality Noted [...] RENAL MULTIVITAMIN/ZINC PO TABS None Entered Active AppFogTOUCH ULTRASOFT LANCETS MISCIndications:Ty pe 2 diabetes mellitus with hemoglobin A1c goal of less than 8.0% ([facility]) Use as directed 2 times a day. 1 Box Dosing Unit 11 7 Active cinacalcet (SENSIPAR) 30 MG Tablet Take 1 Tab by mouth daily with dinner. 90 Tab 3 8 Active Blood Glucose Monitoring Suppl (Tank Top TV ULTRA 2) w/Device KIT Use to check blood sugar 2 times a day; E11.9. 1 Kit 0 Active Glucose Blood ([employer] Research GroupUCH ULTRA BLUE) STRP Use to check blood [...] goal of less than 8.0% ([facility]) INJECT UNDER THE SKIN 0.75 MG ONCE [...] exam 08/04/2019 Overview (03/04/2024): 03/12 EGD [facility]-normal esoph, gastritis. Small hiatal hernia. Gastric 10mm diverticula 01/09 DEXA +osteoporosis. NEED discuss. 11/10 colon +tubular adenomas. 04/09 mult compression fractures. 05/2018 many polyps Therapeutic opioid induced constipation 08/04/20 ESRD on dialysis 09/08/2016 Overview (02/26/2021): 03/05 HCP forms given-wants . NEEDS further Living will 2017 consider transplant needs 20lb -HD [place] [facility]? T,R, S. Since January 2013. Spondylolisthesis [...] Overview (04/09/2021): Mult levels 04/09 CT [facility] + lumbar Respiratory symptoms 01/08/2020 021 Fever of unknown origin (FUO) 01/07/2020 02/26/2021 Respiratory infection 01/07/20202020 Cellulitis 06/28/2016 09/08/2016 Abnormal vaginal bleeding 02/12/2016 Cellulitis 02/07/2016 09/08/2016 UTI (urinary tract infection), bacterial 04/19/2014 05/02/2014 Hypotension 04/15/2014 05/02/2014 Compression of lumbar vertebra 02/03/2013 06/07/2021 Overview (04/09/2021): Mult levels noted 04/[address] [facility] [address] also thoracic CKD (chronic kidney [...] 08/25/200909/06 Overview (08/25/2009): Modified 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 ad terminal makeup [...] s/p B/L stents Sees Dr. 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 * Telephone Encounter - Ruby Palacios RN - 12/24/2024 11:23 AM EST Transitions of Care Note Reason for Referral:Recent Admission Phone visit for follow up: [facility] #1 Admitted to: [facility], Date: 12/21/2024 Discharged to: Home, Date: 12/23/2024 Diagnosis driving hospitalization: Influenza A Pneumonia, Acute on Chronic Hypoxic Respiratory Failure Attempted Phone Call First Attempt Call Outcome Left Voicemail/Message Message left on voicemail for patient. When they call back please transfer them to me at [phone]. If you are unable to reach me or my voicemail please route this message back to me. Thank you. documented in this encounter Plan of Treatment Upcoming Encounters Date Type Department Care Team (Late st Contact Info) Description 12/29/2024 2:00 PM EDT Office Visit [facility] [address] [place] [address] Coco Montanez DO [address] [place] [address] 01/28/2025 11:40 AM EDT Office Visit Pharmacy, [facility] [address] [place] [address] [facility] [address] [place] [address] 03/22/2025 1:40 PM EDT Office Visit [facility] [address] [place] [address] Willie Epstein MD [address] [place] [address] 05/23/2025 3:00 PM EDT Office Visit Dermatology [facility] [address] [place] [address] Coco Ivan PA-C [address] [place] [address] [place] [address] 06/13/2025 11:00 AM EDT Cardiac Studies Card[facility] Studies, [facility] [place] [address] 07/04/2025 4:00 PM EDT Office Visit Cardiology, [facility] [address] [facility] [place] [address] Bandar Avila MD [address] [place] [place] [address] Scheduled Procedures Name Priority Associated Diagnoses Date/Ti [...] this encounter Medical Devices Implanted Type Area Eyeglass Assembler Device Identifier Shelf Expiration Date Model / Serial / Lot Cement Antibiotic Bone - [id number] Implanted:Qty: 3 on 04/28/2012 at [place] [facility] Right: Hip VERONICA : ORTHOPAEDICS 11/19/2013 6197-9-010 / / [id number] Prostalac Acetabular Cup Implanted:Qty: 1 on 04/28/2012 at OR [facility] Right: Hip SUBHA & SUBHA DEPUY 05/19/2017 1541-42-320 / / [id number] Prostalac Hip Stem Size 105mm Std Offset Implanted:Qty: 1 on 04/28/2012 at OR [facility] Right: Hip SUBHA & SUBHA DEPUY 10/19/2021 1541-01-000 / / [id number] Description:Prostalac Hip St em Size 105mm Offset (Depuy) Ball Artic Wiliam Brn 32 Plus5 - [id number] Implanted:Qty: 1 on 04/28/2012 at OR [facility] Right: Hip JNJ : DEPUY ORTHOPAEDICS 10/19/2016 [id number] / / [id number] Rest Mod Prox Cone Body 23 +11 - [id number] Implanted:Qty: 1 on 04/14/2014 at OR [facility] Right: Hip VERONICA : ORTHOPAEDICS 10/19/2018 6276-1-123 / / [id number] Head Fem 28mm - [id number] Implanted:Qty: 1 on 04/14/2014 at [place] [facility] Right: Hip VERONICA : ORTHOPAEDICS 08/19/2018 6570-0-228 / / [id number] Insert 28mm - [id number] Implanted:Qty: 1 on 04/14/2014 at [facility] Right: Hip VERONICA : ORTHOPAEDICS 02/16/2019 1236-2-848 / / [id number] Cable/Sle Beaded D/M 20 Vit - [id number] Implanted:Qty: 1 on 04/14/2014 at [facility] Right: Hip VERONICA : ORTHOPAEDICS 10/19/2017 6704-0-520 / / [id number] Cable/Sle Beaded D/M 20 Vit - [id number] Implanted:Qty: 1 on 04/14/2014 at [facility] Right: Hip VERONICA : ORTHOPAEDICS 10/19/2017 6704-0-520 / / [id number] Tritanium Revision Acetabular - [id number] Implanted:Qty: 1 on 04/14/2014 at OR [facility] Right: Hip VERONICA : ORTHOPAEDICS 05/19/2018 509-02-56E / / [id number] Screw Bone Osteolock 24 - [id number] Implanted:Qty: 1 on 04/14/2014 at [facility] Right: Hip VERONICA : ORTHOPAEDICS 02/16/2019 5260-5-024 / / [id number] Screw Bone Osteolock 35 - [id number] Implanted:Qty: 1 on 04/14/2014 at [facility] Right: Hip VERONICA : ORTHOPAEDICS 03/19/2017 5260-5-035 / / [id number] Liner 42mm - [id number] Implanted:Qty: 1 on 04/14/2014 at [place] [facility] Right: Hip VERONICA : ORTHOPAEDICS 11/19/2018 626-00-42E / / [id number] Hip S Mod Conical Dis 32x956 - [id number] Implanted:Qty: 1 on 04/14/2014 at [place] [facility] Right: Hip VERONICA : ORTHOPAEDICS 12/17/2018 6276-7-017 / / [id number] documented as of this encounter Advance Directives [...] were consensually agreed upon. Care Teams Color Straining Bag Washer Relationship Specialty Start Date End Date Willie Epstein MD [address] [address] PCP - General Family Medicine 11/22/16 documented as of this encounter
--- OUTSIDE RECORDS SUMMARY | 2025-02-24 07:31 | External Medical Summary | Summary of Care ---
Author Name Unknown Organization [facility] Address [address] [place] [address] Phone [phone] Care Team Providers Care Promotions Assistant Sales Marketing Name Role Phone Willie Pizarro MD Primary Care Provider + Reason for Visit * Reason Onset Date Comments Medication Refill 12/07/2024 Encounter Details Date Type Department Care Team (Late st Contact Info) Description 12/07/2024 Refill Family Practice [facility] [address] [place] [address] Willie Pizarro MD [address] [facility] [place] [place] [address] Spondylolisthesis of lumbosacral region*; Opiate dependence, continuous [...] as of this encounter (statuses as of 12/10/2024) Medications INSULIN SYRINGE-NEEDLE U-100 30G X 1/2" 1 ML MISCIndications:D M type 2, goal A1c below 7 Use as directed 1 Box of 100 11 008 Active RENAL MULTIVITAMIN/ZINC PO TABS None Entered Active LumusTOUCH ULTRASOFT LANCETS MISCIndications:T ype 2 diabetes mellitus with hemoglobin A1c goal of less than 8.0% ([facility]) Use as directed 2 times a day. 1 Box Dosing Unit 11 017 Active cinacalcet (SENSIPAR) 30 MG Tablet Take 1 Tab by mouth daily with dinner. 90 Tab 3 018 Active Blood Glucose Monitoring Suppl (ShareThis ULTRA 2) w/Device KIT Use to check blood sugar 2 times a day; E11.9. 1 Kit 020 Active Glucose Blood (LumusTOUCH ULTRA BLUE) STRP Use to check blood [...] less than 8.0% ([facility]) INJECT UNDER THE SKIN 0.75 MG ONCE A WEEK 6 mL 1 Active Cephalexin 500 MG Oral Capsule Take 1 Capsule by mouth every night at bedtime for 10 days. Or dinner. 10 Capsule 025 2024 Active Silver sulfADIAZINE 1 % External Cream (Silvadene) Apply topically to affected area daily. Apply to ulcer 400 g 1 Active oxyCODONE HCl 15 MG Oral Tablet (Roxicodone) Take 1 Tablet by mouth every 8 hours as needed for Pain, Severe. 21 Tablet 025 Active Buprenorphine 15 MCG/HR Transdermal Patch Weekly (Butrans)Indicati ons:MEDICATION USE AGREEMENT,Spondyl olisthesis of lumbosacral region,Lumbar back pain Place 15 mcg topically on the skin once a week. 4 Patch 025 Active Buprenorphine 10 MCG/HR Transdermal Patch Weekly (Butrans) Place 1 Patch over 7 days topically on the skin once a week. 4 Patch 3 11/30/19 25 5:30 PM EST 025 2024 Discontinued oxyCODONE HCl 15 MG Oral Tablet (Roxicodone) Take 1 Tablet by mouth every 8 hours as needed for Pain, Severe. 90 Tablet 025 2024 Discontinued(R efill) Buprenorphine 15 MCG/HR Transdermal Patch Weekly (Butrans)Indicati ons:Opiate dependence, continuous (HCC),MEDICATION USE AGREEMENT,Spondyl olisthesis of lumbosacral region Place 15 mcg topically on the skin once for 1 dose. 4 Patch 025 2024 Discontinued(R efill) documented as of this encounter (statuses as of 12/10/2024) Active Problems Problem Noted Date Diagnosed Date [...] adult exam 08/04/2019 Overview (03/04/2024): 03/12 EGD [facility]-normal esoph, gastritis. Small hiatal hernia. Gastric 10mm diverticula 01/09 DEXA +osteoporosis. NEED discuss. 11/10 colon +tubular adenomas. 04/09 mult compression fractures. 05/2018 many polyps Therapeutic opioid induced constipation 08/04/20 19 ESRD on dialysis 09/08/2016 Overview (02/26/2021): 03/05 HCP forms given-wants . NEEDS further Living will 2017 consider transplant needs 20lb -HD [place] [facility]? T,R, S. Since January 2013. Spondylolisthesis [...] as of this encounter (statuses as of 12/10/2024) Resolved Problems Problem Noted Date Diagnosed Date Resolved Date Thoracic compression fracture 04/09/2021 04/13/2021 Overview (04/09/2021): Mult levels 04/09 CT [facility] + lumbar Respiratory symptoms 01/08/2020 021 Fever of unknown origin (FUO) 01/07/2020 02/26/2021 Respiratory infection 01/07/20202020 Cellulitis 06/28/2016 09/08/2016 Abnormal vaginal bleeding 02/12/2016 Cellulitis 02/07/2016 09/08/2016 UTI (urinary tract infection), bacterial 04/19/2014 05/02/2014 Hypotension 04/15/2014 05/02/2014 Compression of lumbar vertebra 02/03/2013 06/07/2021 Overview (04/09/2021): Mult levels noted 04/09 [facility] [...] 08/25/200909/06 Overview (08/25/2009): Modified 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 nursing home current [...] s/p B/L stents Sees Dr. 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 pharmacy in [place]. Prescriptions clarified with him. He does state [...] MD - 12/10/2024 2:37 PM EST Notify [facility] pharmacy---I sent corrected Butrans patch Rx--use weekly. We are transitioning her from oxycodone to Butrans. 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 I removed Dx code to clarify. * Telephone Encounter - Mckenzie Askew LPN - 12/10/2024 2:12 PM EST [facility] called not [facility] as pt has never used [facility] Called [facility] - pharmacist there today is not 100% as to what the reasoning for the call 2 possible issues with Butrans - sig says for 1 dose & they cannot break boxes & diagnosis of opioid dependence - that would lean more toward suboxone * Telephone Encounter - Marie Spicer die setter - 12/09/2024 3:04 PM EST Coco from [facility] pharmacy called asking if they can have a call back at [phone] to talk about both the Buprenorphine 15 and oxyCODONE HCl [address] that [address] them on hold until shegets a call, please advise Thank you, Marie Spicer,[facility] Architectural Draftsperson II [facility] 12/09/2024, [...] today. If agreeable send script to E [facility]Y [id number] Thank you, Eryn Cortez Tax Audit Manager I [facility]) 12/09/2024,1:56 [...] pain. * Telephone Encounter - Arlene Elise [facility] - 12/09/2024 8:02 AM EST I find [...] Please advise Thank you, Nakita Campoverde CPhT Architectural Draftsperson III [facility] ([facility]) [address] [place] [address], [address] [phone] * Telephone Encounter - Latisha De La [...] for next Friday. I reviewed with Clifton Elise [facility] * Telephone Encounter - Jo Ann Palacios CPhT - 12/08/2024 1:31 PM EST Patient calling to check on status of refill request asking id med can be ordered today she has none Thank you, Jo Ann Palacios Architectural Draftsperson II [facility]) (formerly Telepharmacy) 12/08/2024 1:31 PM * Telephone Encounter - Percy Redmond, [facility] - 12/07/2024 12:59 PM ESTPending Prescriptions: Disp Refills oxyCODONE HCl 15 MG Oral Tablet (Roxicodon*90 Tab*0 Sig: Take 1 Tablet by mouth every 8 hours as needed for Pain, Severe. * Telephone Encounter - Percy Redmond [facility] - 12/07/2024 12:58 PM EST I have reviewed the patient’s controlled substance dispensing history in the Prescription Drug Monitoring Program in compliance with the [facility] regulations before prescribing a controlled substance. PDMP checked on 12/07/2024. Pending Prescriptions: Disp Refills oxyCODONE HCl 15 MG Oral Tablet (Roxicodo*90 Tab*0 Sig: Take 1 Tablet by mouth every 8 hours as needed for Pain, Severe. Last Visit: 11/30/2024 (in office), 01/21/2024 (telemedicine) Next Visit: 03/22/2025 Date medication was last filled: 11/08/24 Date medication is due for refill: 12/07/24 Pharmacy: E [facility] [id number] Is this request for a controlled [...] approve if appropriate. Thank You, Percy Johnson [facility] Clinical Pharmacist [facility] ([facility]) 12/07/2024, 12:59 PM * Telephone Encounter - Bhupinder Vergara die setter - 12/07/2024 12:42 PM EST Did you pend patient's preferred pharmacy and medication before forwarding?yes Pharmacy: E [facility] [id number] Pending Prescriptions: Disp Refills oxyCODONE HCl 15 [...] found in Results Review. Patient Phone Numbers [employer] [phone] Labs: Lab Results Component Value Date/Time CREAT [...] 12/15/2024 11:00 AM EST Office Visit Pharmacy, [facility] [address] [place] [address] [facility] [place] [address] [address] [place] [address] 03/22/2025 1:40 PM EDT Office Visit Family Practice [facility] [address] [place] [address] Willie Pizarro MD [address] [place] [address] 05/23/2025 3:00 PM EDT Office Visit Dermatology [address] [place] [address] Coco Ivan PA-C [address] [place] [address] [place] [address] 06/13/2025 11:00 AM EDT Cardiac Studies Cardiac Studies, [facility] [address] [place] [address] 07/04/2025 4:00 PM EDT Office Visit Cardiology, [facility] [address] [place] [address] Bandar Avila MD [address] [place] [address] Scheduled Procedures Name Priority Associated Diagnoses Date/Ti [...] this encounter Medical Devices Implanted Type Area Home Restoration Service Cleaner Device Identifier Shelf Expiration Date Model / Serial / Lot Cement Antibiotic Bone - [id number] Implanted:Q[place] 3 [place] [facility] [place] Hip VERONICA : ORTHOPAEDICS 11/19/2013 6197-9-010 / / [id number] Prostalac Acetabular Cup Implanted:Qty: 1 on 04/28/2012 [place] [facility] [place]: Hip SUBHA & SUBHA DEPUY 05/19/2017 1541-42-320 / / [id number] Prostalac Hip Stem Size 105mm Std Offset Implanted:Qty: 1 on 04/28/2012 at [place] [facility] Right: Hip SUBHA & SUBHA DEPUY 10/19/2021 1541-01-000 / / [id number] Description:Prostalac Hip St em Size 105mm Offset (Depuy) Ball Artic Wiliam Brn 32 Plus5 - [id number] Implanted:Qty: 1 on 04/28/2012 [place] [facility] Right: Hip JNJ : DEPUY ORTHOPAEDICS 10/19/2016 [id number] / / [id number] Rest Mod Prox Cone Body 23 +11 - [id number] Implanted:Qty: 1 on 04/14/2014 at [facility] Right: Hip VERONICA : ORTHOPAEDICS 10/19/2018 6276-1-123 / / [id number] Head Fem 28mm - [id number] Implanted:Qty: 1 on 04/14/2014 [place] [facility] [place]: Hip VERONICA : ORTHOPAEDICS 08/19/2018 6570-0-228 / / [id number] Insert 28mm - [id number] Implanted:Qty: 1 on 04/14/2014 at [place] [facility] Right: Hip VERONICA : ORTHOPAEDICS 02/16/2019 1236-2-848 / / [id number] Cable/Sle Beaded D/M 20 Vit - [id number] Implanted:Qty: 1 on 04/14/2014 at [facility] Right: Hip VERONICA : ORTHOPAEDICS 10/19/2017 6704-0-520 / / [id number] Cable/Sle Beaded D/M 20 Vit - [id number] Implanted:Qty: 1 on 04/14/2014 at [facility] Right: Hip VERONICA : ORTHOPAEDICS 10/19/2017 6704-0-520 / / [id number] Tritanium Revision Acetabular - [id number] Implanted:Qty: 1 on 04/14/2014 at [facility] Right: Hip VERONICA : ORTHOPAEDICS 05/19/2018 509-02-56E / / [id number] Screw Bone Osteolock 24 - [id number] Implanted:Qty: 1 on 04/14/2014 at [facility] Right: Hip VERONICA : ORTHOPAEDICS 02/16/2019 5260-5-024 / / [id number] Screw Bone Osteolock 35 - [id number] Implanted:Qty: 1 on 04/14/2014 at [facility] Right: Hip VERONICA : ORTHOPAEDICS 03/19/2017 5260-5-035 / / [id number] Liner 42mm - [id number] Implanted:Qty: 1 on 04/14/2014 at [facility] Right: Hip VERONICA : ORTHOPAEDICS 11/19/2018 626-00-42E / / [id number] Hip S Mod Conical Dis 06u608 - [id number] Implanted:Qty: 1 on 04/14/2014 at [facility] Right: Hip VERONICA : ORTHOPAEDICS 12/17/2018 6276-7-017 / / [id number] documented as of this encounter Visit Diagnoses [...] and were consensually agreed upon. Care Teams Promotions Assistant Sales Marketing Relationship Specialty Start Date End Date Willie Pizarro MD [address] [place] [address] PCP - General Family Medicine 11/22/16 documented as of this encounter
--- OUTSIDE RECORDS SUMMARY | 2025-02-24 07:31 | External Medical Summary | Summary of Care ---
Author Name Unknown Organization [facility] Address [address] [place] [address] Phone [phone] Care Team Providers Care Sand Technologist Name Role Phone Willie Pizarro MD Primary Care Provider + Reason for Visit * Reason Onset Date Comments Medication Refill 12/07/2024 Encounter Details Date Type Department Care Team (Late st Contact Info) Description 12/07/2024 Refill Family Practice [facility] [address] [place] [address] Willie Pizarro MD [address] [place] [place] [address] Spondylolisthesis of lumbosacral region*; Opiate dependence, continuous [...] RENAL MULTIVITAMIN/ZINC PO TABS None Entered Active SofTechTOUCH ULTRASOFT LANCETS MISCIndications:T ype 2 diabetes mellitus with hemoglobin A1c goal of less than 8.0% ([facility]) Use as directed 2 times a day. 1 Box Dosing Unit 11 017 Active cinacalcet (SENSIPAR) 30 MG Tablet Take 1 Tab by mouth daily with dinner. 90 Tab 3 018 Active Blood Glucose Monitoring Suppl ([employer] ULTRA 2) w/Device KIT Use to check blood sugar 2 times a day; E11.9. 1 Kit 020 Active Glucose Blood (SofTechTOUCH ULTRA BLUE) STRP Use to check blood [...] hemoglobin A1c goal of less than 8.0% ([facility]) INJECT UNDER THE SKIN 0.75 MG ONCE [...] adult exam 08/04/2019 Overview (03/04/2024): 03/12 EGD [facility]-normal esoph, gastritis. Small hiatal hernia. Gastric 10mm diverticula 01/09 DEXA +osteoporosis. NEED discuss. 11/10 colon +tubular adenomas. 04/09 mult compression fractures. 05/2018 many polyps Therapeutic opioid induced constipation 08/04/20 19 ESRD on dialysis 09/08/2016 Overview (02/26/2021): 03/05 HCP forms given-wants . NEEDS further Living will 2017 consider transplant needs 20lb -HD [place] [facility]? T,R, S. Since January 2013. Spondylolisthesis [...] 04/13/2021 Overview (04/09/2021): Mult levels 04/09 CT [facility] + lumbar Respiratory symptoms 01/08/2020 021 Fever of unknown origin (FUO) 01/07/2020 02/26/2021 Respiratory infection 01/07/20202020 Cellulitis 06/28/2016 09/08/2016 Abnormal vaginal bleeding 02/12/2016 Cellulitis 02/07/2016 09/08/2016 UTI (urinary tract infection), bacterial 04/19/2014 05/02/2014 Hypotension 04/15/2014 05/02/2014 Compression of lumbar vertebra 02/03/2013 06/07/2021 Overview (04/09/2021): Mult levels noted 04/09 [facility] [...] s/p B/L stents Sees Dr. 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 pharmacy in [place]. Prescriptions clarified with him. He does state [...] MD - 12/10/2024 2:37 PM EST Notify [facility] pharmacy---I sent corrected Butrans patch Rx--use weekly. We are transitioning her from oxycodone to Butrans. 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 I removed Dx code to clarify. * Telephone Encounter - Mckenzie Askew LPN - 12/10/2024 2:12 PM EST [facility] called not [facility] as pt has never used [facility] Called [facility] - pharmacist there today is not 100% as to what the reasoning for the call 2 possible issues with Butrans - sig says for 1 dose & they cannot break boxes & diagnosis of opioid dependence - that would lean more toward suboxone * Telephone Encounter - Marie Spicer dealer accounts investigator - 12/09/2024 3:04 PM EST Coco from [facility] called asking if they can have a call back at [phone] to talk about both the Buprenorphine 15 and oxyCODONE HCl [address] them on hold until shegets a call, please advise Thank you, Marie Spicer,[facility] Dray Driver II [facility] ([facility]) 12/09/2024, [...] today. If agreeable send script to E [facility]/PHARMACY [id number] Thank you, Eryn Cortez Turbine Mechanic I [facility] ([facility]) 12/09/2024,1:56 [...] pain. * Telephone Encounter - Arlene Elise [facility] - 12/09/2024 8:02 AM EST [...] Please advise Thank you, Nakita Campoverde CPhT Dray Driver III [facility] Clinical Pharmacy Services ([facility]PS) [address] [place] [address], [address] 05-79 * Telephone Encounter - Latisha De La [...] next Friday. I reviewed with Clifton Elise [facility] * Telephone Encounter - Jo Ann Palacios CPhT - 12/08/2024 1:31 PM EST Patient calling to check on status of refill request asking id med can be ordered today she has none Thank you, Jo Ann Palacios Dray Driver II [facility] ([facility]) (formerly Telepharmacy) 12/08/2024 1:31 PM * Telephone Encounter - Percy Redmond, [facility] - 12/07/2024 12:59 PM ESTPending Prescriptions: Disp Refills oxyCODONE HCl 15 MG Oral Tablet (Roxicodon*90 Tab*0 Sig: Take 1 Tablet by mouth every 8 hours as needed for Pain, Severe. * Telephone Encounter - Percy Redmond [facility] - 12/07/2024 12:58 PM EST I have reviewed the patient’s controlled substance dispensing history in the Prescription Drug Monitoring Program in compliance with the [facility] regulations before prescribing a controlled substance. PDMP checked on 12/07/2024. Pending Prescriptions: Disp Refills oxyCODONE HCl 15 MG Oral Tablet (Roxicodo*90 Tab*0 Sig: Take 1 Tablet by mouth every 8 hours as needed for Pain, Severe. Last Visit: 11/30/2024 (in office), 01/21/2024 (telemedicine) Next Visit: 03/22/2025 Date medication was last filled: 11/08/24 Date medication is due for refill: 12/07/24 Pharmacy: E [facility]/PHARMACY [id number] Is this request for a controlled [...] approve if appropriate. Thank You, Percy Johnson [facility] Clinical Pharmacist [facility] ([facility]) 12/07/2024, 12:59 PM * Telephone Encounter - Bhupinder Vergara dealer accounts investigator - 12/07/2024 12:42 PM EST Did you pend patient's preferred pharmacy and medication before forwarding?yes Pharmacy: E [facility]/PHARMACY [id number] Pending Prescriptions: Disp Refills oxyCODONE HCl [...] found in Results Review. Patient Phone Numbers Splash [phone] Labs: Lab Results Component Value Date/Time CREAT [...] 12/15/2024 11:00 AM EST Office Visit Pharmacy, [facility] [address] [place] [address] [facility] [place] [address] [address] [place] [address] 03/22/2025 1:40 PM EDT Office Visit Family Practice [facility] [address] [place] [address] Willie Pizarro MD [address] [place] [address] 05/23/2025 3:00 PM EDT Office Visit Dermatology [address] [place] [address] Coco Ivan PA-C [address] [place] [address] [place] [address] 06/13/2025 11:00 AM EDT Cardiac Studies Cardiac Studies, [facility] [address] [place] [address] 07/04/2025 4:00 PM EDT Office Visit Cardiology, [facility] [address] [place] [address] Bandar Avila MD [address] [place] [address] Scheduled Procedures Name Priority Associated Diagnoses Date/Ti [...] this encounter Medical Devices Implanted Type Area Credit Collection Associate Device Identifier Shelf Expiration Date Model / Serial / Lot Cement Antibiotic Bone - [id number] Implanted:Qty: 3 on 04/28/2012 at OR [facility] Right: Hip VERONICA : ORTHOPAEDICS 11/19/2013 6197-9-010 / / [id number] Prostalac Acetabular Cup Implanted:Qty: 1 on 04/28/2012 at OR [facility] Right: Hip SUBHA & SUBHA DEPUY 05/19/2017 1541-42-320 / / [id number] Prostalac Hip Stem Size 105mm Std Offset Implanted:Qty: 1 on 04/28/2012 at OR [facility] Right: Hip SUBHA & SUBHA DEPUY 10/19/2021 1541-01-000 / / [id number] Description:Prostalac Hip St em Size 105mm Offset (Depuy) Ball Artic Wiliam Brn 32 Plus5 - [id number] Implanted:Qty: 1 on 04/28/2012 at OR [facility] Right: Hip JNJ : DEPUY ORTHOPAEDICS 10/19/2016 [id number] / / [id number] Rest Mod Prox Cone Body 23 +11 - [id number] Implanted:Qty: 1 on 04/14/2014 at [facility] Right: Hip VERONICA : ORTHOPAEDICS 10/19/2018 6276-1-123 / / [id number] Head Fem 28mm - [id number] Implanted:Qty: 1 on 04/14/2014 at OR [facility] Right: Hip VERONICA : ORTHOPAEDICS 08/19/2018 6570-0-228 / / [id number] Insert 28mm - [id number] Implanted:Qty: 1 on 04/14/2014 at OR [facility] Right: Hip VERONICA : ORTHOPAEDICS 02/16/2019 1236-2-848 / / [id number] Cable/Sle Beaded D/M 20 Vit - [id number] Implanted:Qty: 1 on 04/14/2014 at [facility] Right: Hip VERONICA : ORTHOPAEDICS 10/19/2017 6704-0-520 / / [id number] Cable/Sle Beaded D/M 20 Vit - [id number] Implanted:Qty: 1 on 04/14/2014 at [facility] Right: Hip VERONICA : ORTHOPAEDICS 10/19/2017 6704-0-520 / / [id number] Tritanium Revision Acetabular - [id number] Implanted:Qty: 1 on 04/14/2014 at [facility] Right: Hip VERONICA : ORTHOPAEDICS 05/19/2018 509-02-56E / / [id number] Screw Bone Osteolock 24 - [id number] Implanted:Qty: 1 on 04/14/2014 at [facility] Right: Hip VERONICA : ORTHOPAEDICS 02/16/2019 5260-5-024 / / [id number] Screw Bone Osteolock 35 - [id number] Implanted:Qty: 1 on 04/14/2014 at [facility] Right: Hip VERONICA : ORTHOPAEDICS 03/19/2017 5260-5-035 / / [id number] Liner 42mm - [id number] Implanted:Qty: 1 on 04/14/2014 at [facility] Right: Hip VERONICA : ORTHOPAEDICS 11/19/2018 626-00-42E / / [id number] Hip S Mod Conical Dis 19w601 - [id number] Implanted:Qty: 1 on 04/14/2014 at [facility] Right: Hip VERONICA : ORTHOPAEDICS 12/17/2018 6276-7-017 / / [id number] documented as of this encounter Visit Diagnoses [...] and were consensually agreed upon. Care Teams Sand Technologist Relationship Specialty Start Date End Date Willie Pizarro MD [address] [place] [address] PCP - General Family Medicine 11/22/16 documented as of this encounter
--- OUTSIDE RECORDS SUMMARY | 2025-02-24 07:31 | External Medical Summary | Summary of Care ---
Author Name Unknown Organization [facility] Address [address] [place] [address] Phone [phone] Care Team Providers Care Informatics Application Analyst Name Role Phone Willie Pizarro MD Primary Care Provider + Reason for Visit * Reason Onset Date Comments Medication Refill 12/07/2024 Encounter Details Date Type Department Care Team (Late st Contact Info) Description 12/07/2024 Refill Family Practice [facility] [address] [place] [address] Willie Pizarro MD [address] [place] [facility] [place] [address] Spondylolisthesis of lumbosacral region*; Opiate dependence, continuous [...] RENAL MULTIVITAMIN/ZINC PO TABS None Entered Active CoreOSTOUCH ULTRASOFT LANCETS MISCIndications:T ype 2 diabetes mellitus with hemoglobin A1c goal of less than 8.0% ([facility]) Use as directed 2 times a day. 1 Box Dosing Unit 11 017 Active cinacalcet (SENSIPAR) 30 MG Tablet Take 1 Tab by mouth daily with dinner. 90 Tab 3 018 Active Blood Glucose Monitoring Suppl ([employer] ULTRA 2) w/Device KIT Use to check blood sugar 2 times a day; E11.9. 1 Kit 020 Active Glucose Blood (CoreOSTOUCH ULTRA BLUE) STRP Use to check blood [...] of less than 8.0% ([facility]) INJECT UNDER THE SKIN 0.75 MG [...] will 2017 consider transplant needs 20lb -HD [place] [facility]? T,R, S. Since January 2013. Spondylolisthesis [...] B/L stents Sees Dr. 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 Prescriptions clarified with him. He does state [...] MD - 12/10/2024 2:37 PM EST Notify [facility] pharmacy---I sent corrected Butrans patch Rx--use weekly. We are transitioning her from oxycodone to Butrans. 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 I removed Dx code to clarify. * Telephone Encounter - Mckenzie Askew LPN - 12/10/2024 2:12 PM EST [facility] called not [facility] as pt [facility] never used [facility] Called [facility] - pharmacist there today is not 100% as to what the reasoning for the call 2 possible issues with Butrans - sig says for 1 dose & they cannot break boxes & diagnosis of opioid dependence - that would lean more toward suboxone * Telephone Encounter - Marie Spicer park maintainer - 12/09/2024 3:04 PM EST Coco from [facility] pharmacy called asking if they can have a call back at [phone] to talk about both the Buprenorphine 15 and oxyCODONE HCl [address] them on hold until shegets a call, please advise Thank you, Marie Spicer,[facility] Chief Of Harbor Patrol II [facility] ([facility]) 12/09/2024, [...] today. If agreeable send script to E [facility]/PHARMACY [id number] Thank you, Eryn Cortez Industrial Design Engineer I [facility] ([facility]) 12/09/2024,1:56 [...] pain. * Telephone Encounter - Arlene Elise [facility] - 12/09/2024 8:02 AM EST [...] Please advise Thank you, Nakita Campoverde CPhT Chief Of Harbor Patrol III [facility] Clinical Pharmacy Services ([facility]PS) [address] [place] [address], [address] [address] * Telephone Encounter - Latisha De La Torre RN - 12/08/2024 4:13 PM EST Message left on voicemail. * Telephone Encounter - Wilile Pizarro MD - 12/08/2024 3:28 PM EST [...] next Friday. I reviewed with Clifton Elise [facility] * Telephone Encounter - Jo Ann Palacios CPhT - 12/08/2024 1:31 PM EST Patient calling to check on status of refill request asking id med can be ordered today she has none Thank you, Jo Ann Palacios Chief Of Harbor Patrol II [facility] ([facility]) (formerly Telepharmacy) 12/08/2024 1:31 PM * Telephone Encounter - Percy Redmond, [facility] - 12/07/2024 12:59 PM ESTPending Prescriptions: Disp Refills oxyCODONE HCl 15 MG Oral Tablet (Roxicodon*90 Tab*0 Sig: Take 1 Tablet by mouth every 8 hours as needed for Pain, Severe. * Telephone Encounter - Percy Redmond [facility] - 12/07/2024 12:58 PM EST I have reviewed the patient’s controlled substance dispensing history in the Prescription Drug Monitoring Program in compliance with the [facility] regulations before prescribing a controlled substance. PDMP checked on 12/07/2024. Pending Prescriptions: Disp Refills oxyCODONE HCl 15 MG Oral Tablet (Roxicodo*90 Tab*0 Sig: Take 1 Tablet by mouth every 8 hours as needed for Pain, Severe. Last Visit: 11/30/2024 (in office), 01/21/2024 (telemedicine) Next Visit: 03/22/2025 Date medication was last filled: 11/08/24 Date medication is due for refill: 12/07/24 Pharmacy: E [facility]/PHARMACY [id number] Is this request for a controlled [...] approve if appropriate. Thank You, Percy Johnson [facility] Clinical Pharmacist Centralized Clinical Pharmacy Services ([facility]) 12/07/2024, 12:59 PM * Telephone Encounter - Bhupinder Vergara park maintainer - 12/07/2024 12:42 PM EST Did you pend patient's preferred pharmacy and medication before forwarding?yes Pharmacy: E [facility]/PHARMACY [id number] Pending Prescriptions: Disp Refills oxyCODONE HCl [...] found in Results Review. Patient Phone Numbers [email or web address] [phone] Labs: Lab Results Component Value Date/Time CREAT [...] 12/15/2024 11:00 AM EST Office Visit Pharmacy, [facility] [address] [place] [address] [facility] [place] [address] [address] [place] [address] 03/22/2025 1:40 PM EDT Office Visit Family Practice [facility] [address] [place] [address] Willie Pizarro MD [address] [place] [address] 05/23/2025 3:00 PM EDT Office Visit Dermatology [address] [place] [address] Coco Ivan PA-C [address] [place] [address] [place] [address] 06/13/2025 11:00 AM EDT Cardiac Studies Cardiac Studies, [facility] [address] [place] [address] 07/04/2025 4:00 PM EDT Office Visit Cardiology, [facility] [address] [place] [address] Bandar Avila MD [address] [address] Scheduled Procedures Name Priority Associated Diagnoses Date/Ti [...] encounter Medical Devices Implanted Type Area Senior Buyer Device Identifier Shelf Expiration Date Model / Serial / Lot Cement Antibiotic Bone - [id number] Implanted:Qty: 3 on 04/28/2012 at OR [facility] Right: Hip VERONICA : ORTHOPAEDICS 11/19/2013 6197-9-010 / / [id number] Prostalac Acetabular Cup Implanted:Qty: 1 on 04/28/2012 at OR [facility] Right: Hip SUBHA & SUBHA DEPUY 05/19/2017 1541-42-320 / / [id number] Prostalac Hip Stem Size 105mm Std Offset Implanted:Qty: 1 on 04/28/2012 at OR [facility] Right: Hip SUBHA & SUBHA DEPUY 10/19/2021 1541-01-000 / / [id number] Description:Prostalac Hip St em Size 105mm Offset (Depuy) Ball Artic Wiliam Brn 32 Plus5 - [id number] Implanted:Qty: 1 on 04/28/2012 at OR [facility] Right: Hip JNJ : DEPUY ORTHOPAEDICS 10/19/2016 [id number] / / [id number] Rest Mod Prox Cone Body 23 +11 - [id number] Implanted:Qty: 1 on 04/14/2014 at [facility] Right: Hip VERONICA : ORTHOPAEDICS 10/19/2018 6276-1-123 / / [id number] Head Fem 28mm - [id number] Implanted:Qty: 1 on 04/14/2014 at OR [facility] Right: Hip VERONICA : ORTHOPAEDICS 08/19/2018 6570-0-228 / / [id number] Insert 28mm - [id number] Implanted:Qty: 1 on 04/14/2014 at OR [facility] Right: Hip VERONICA : ORTHOPAEDICS 02/16/2019 1236-2-848 / / [id number] Cable/Sle Beaded D/M 20 Vit - [id number] Implanted:Qty: 1 on 04/14/2014 at [facility] Right: Hip VERONICA : ORTHOPAEDICS 10/19/2017 6704-0-520 / / [id number] Cable/Sle Beaded D/M 20 Vit - [id number] Implanted:Qty: 1 on 04/14/2014 at [facility] Right: Hip VERONICA : ORTHOPAEDICS 10/19/2017 6704-0-520 / / [id number] Tritanium Revision Acetabular - [id number] Implanted:Qty: 1 on 04/14/2014 at [facility] Right: Hip VERONICA : ORTHOPAEDICS 05/19/2018 509-02-56E / / [id number] Screw Bone Osteolock 24 - [id number] Implanted:Qty: 1 on 04/14/2014 at [facility] Right: Hip VERONICA : ORTHOPAEDICS 02/16/2019 5260-5-024 / / [id number] Screw Bone Osteolock 35 - [id number] Implanted:Qty: 1 on 04/14/2014 at [facility] Right: Hip VERONICA : ORTHOPAEDICS 03/19/2017 5260-5-035 / / [id number] Liner 42mm - [id number] Implanted:Qty: 1 on 04/14/2014 at [facility] Right: Hip VERONICA : ORTHOPAEDICS 11/19/2018 626-00-42E / / [id number] Hip S Mod Conical Dis 11k272 - [id number] Implanted:Qty: 1 on 04/14/2014 at [facility] Right: Hip VERONICA : ORTHOPAEDICS 12/17/2018 6276-7-017 / / [id number] documented as of this encounter Visit Diagnoses [...] and were consensually agreed upon. Care Teams Informatics Application Analyst Relationship Specialty Start Date End Date Willie Pizarro MD [address] [place] [address] PCP - General Family Medicine 11/22/16 documented as of this encounter
--- OUTSIDE RECORDS SUMMARY | 2025-02-24 07:32 | External Medical Summary | Summary of Care ---
Author Name Unknown Organization [facility] Address [address] [place] [address] Phone [phone] Care Team Providers Care Real Estate Administrator Name Role Phone Willie Epstein MD Primary Care Provider + Reason for Visit * Reason Onset Date Comments Advice 11/22/2024 Encounter Details Date Type Department Care Team (Late st Contact Info) Description 11/22/2024 Telephone Family Practice [facility] [address] [place] [address] Willie Epstein MD [address] [place] [id number] Advice Allergies Active Allergy Reactions Criticality Noted Date Comments Cefazolin Unknown 11/15/2023 Other Reaction(s): CAN'T REMEMBER Methylprednisolone Other (Please comment) 07/28/2017 Side effects c/w med (sweating, heart racing etc) Nitrofurantoin Hives High 03/01/2024 Nitrofurantoin Monohyd Macro Hives 04/04/2014 Pantoprazole Unknown 11/15/2023 Other Reaction(s): CAN'T REMEMBER Sulfa Antibiotics Edema face/lips/tongue High 09/02/2008 documented as of this encounter (statuses as of 12/03/2024) Medications INSULIN SYRINGE-NEEDLE U-100 30G X 1/2" [...] 11/07/19 18 Active Blood Glucose Monitoring Suppl (Kimengi ULTRA 2) w/Device KIT Use to check blood sugar 2 times a day; E11.9. 1 Kit 10/22/19 20 Active Glucose Blood (Abaad Embodied Design LLCTOUCH ULTRA BLUE) STRP Use to check blood [...] on 09/20/2024 Gabapentin 100 MG Oral Capsule (Neurontin)Indicat ions:Spondylolisth [...] RESOLVED, THEN WHEN FLARING 454 g 09/06/20 Active Buprenorphine 10 MCG/HR Transdermal Patch Weekly (Butrans) Place 1 Patch over 7 days topically on the skin once a week. 4 Patch 3 11/30/2024 5:30 PM EST 10/22/19 Active Simvastatin 20 MG Oral Tablet (Zocor)Indications :Dyslipidemia, goal LDL below 70 TAKE ONE TABLET BY MOUTH ONCE A DAY AT BEDTIME 90 Tablet 10/29/19 Active Molnupiravir 200 MG Oral Capsule Take 4 Capsules by mouth in the morning and 4 Capsules before bedtime. 40 Capsule 10/29/19 Active dexAMETHasone 6 MG Oral Tablet (Decadron) Take 1 Tablet by mouth in the morning. 11/04/19 Active Midodrine HCl 2.5 MG Oral Tablet (Proamatine) Take 2 Tablets by mouth in the morning and 2 Tablets at noon and 2 Tablets before bedtime. 11/04/19 Active Ondansetron 4 MG Oral Tablet Disintegrating (Zofran) Place 1 Tablet on tongue daily as needed for Nausea or Vomiting. 11/04/19 Active oxyCODONE HCl 15 MG Oral Tablet (Roxicodone) Take 1 Tablet by mouth every 8 hours as needed for Pain, Severe. 90 Tablet 11/08/19 Active Trulicity 0.75 MG/0.5ML Subcutaneous Solution Auto-injector (Dulaglutide)Indic ations:Type 2 diabetes mellitus with hemoglobin A1c goal of less than 8.0% ([facility]) INJECT UNDER THE SKIN 0.75 MG ONCE A WEEK 6 mL 1 11/08/19 Active documented as of this encounter (statuses as of 12/03/2024) Active Problems Problem Noted Date Diagnosed Date [...] adult exam 08/04/2019 Overview (03/04/2024): 03/12 EGD [facility]-normal esoph, gastritis. Small hiatal hernia. Gastric 10mm diverticula 01/09 DEXA +osteoporosis. NEED discuss. 11/10 colon +tubular adenomas. 04/09 mult compression fractures. 05/2018 many polyps Therapeutic opioid induced constipation 08/04/20 19 ESRD on dialysis 09/08/2016 Overview (02/26/2021): 03/05 HCP forms given-wants . NEEDS further Living will 2017 consider transplant needs 20lb -HD [place] [facility]? T,R, S. Since January 2013. Spondylolisthesis [...] as of this encounter (statuses as of 12/03/2024) Resolved Problems Problem Noted Date Diagnosed Date Resolved Date Thoracic compression fracture 04/09/2021 04/13/2021 Overview (04/09/2021): Mult levels 04/09 CT [facility] + lumbar Respiratory symptoms 01/08/2020 021 Fever of unknown origin (FUO) 01/07/2020 02/26/2021 Respiratory infection 01/07/20202020 Cellulitis 06/28/2016 09/08/2016 Abnormal vaginal bleeding 02/12/2016 Cellulitis 02/07/2016 09/08/2016 UTI (urinary tract infection), bacterial 04/19/2014 05/02/2014 Hypotension 04/15/2014 05/02/2014 Compression of lumbar vertebra 02/03/2013 06/07/2021 Overview (04/09/2021): Mult levels noted 04/09 [facility] CT also thoracic CKD (chronic [...] 08/25/200909/06 Overview (08/25/2009): Modified 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 halfway current use of ant icoagulant therapy 04/19/2009 [...] s/p B/L stents Sees Dr. 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 Attempted to right fax the Nocturnal Home Oximetry (OP) order to [phone] but it states "phone line problem". Please attempt to re fax to [facility] and contact pt when successfully faxed. * Telephone Encounter - Selina Lew LPN - 12/01/2024 12:55 PM EST Spoke to pt-- gave message below voiced understanding. * Telephone Encounter - Eryn Cortez municipal services manager - 12/01/2024 12:55 PM EST Pt calling regarding O2 tanks that need to be returned. Warm transfer to clinic nurse. Thank you, Eryn Cortez [facility] 12/01/2024,12:56 PM * Telephone Encounter - Arlene Garces LPN - 11/26/2024 8:01 AM EST Left detailed message that we need noturnal SPO2 before we can d/c O2 order from [facility]. Order for NPO is faxed to [facility]. LM that she is to do this test WITHOUT O2 on. * Telephone Encounter - Willie Epstein MD - 11/25/2024 10:18 AM EST Signed-please fdax to [facility] * Telephone Encounter - Arlene Garces LPN - 11/25/2024 8:59 AM EST See nocturnal spo2 order instead. * Telephone Encounter - Willie Epstein MD - 11/24/2024 5:05 PM EST Let pt know we'll do an overnight oxygen test OFF oxygen before sending d/c O2 order. Please fax to [facility] * Telephone Encounter - Alka Jaimes OSA - 11/22/2024 11:08 AM EST Patient called would like to leave message for Dr. Epstein. Patient was at hospital 3 weeks ago dueto [place]. Patient was prescribed oxygen at home. Patient state she no longer needs oxygen and needsa discontinued order from Dr. Epstein. Patient gets oxygen from [facility] documented in this encounter Plan of Treatment Upcoming Encounters Date Type Department Care Team (Late st Contact Info) Description 12/15/2024 11:00 AM EST Office Visit Pharmacy, [facility] [address] [place] [address] [facility] [place] [address] 03/22/2025 1:40 PM EDT Office Visit Family Practice [facility] [address] [place] [address] Willie Epstein MD [address] [place] [address] 05/23/2025 3:00 PM EDT Office Visit Dermatology [address] [place] [address] Coco Ivan PA-C [address] [place] [address] [place] [address] 06/13/2025 11:00 AM EDT Cardiac Studies Cardiac Studies, [facility] [address] [place] [address] 07/04/2025 4:00 PM EDT Office Visit Cardiology, [facility] [address] [place] [address] Bandar Avila MD [address] [place] [address] Scheduled Orders Name Type Priority Associated Diagnoses Orde r Schedule NOCTURNAL HOME OXIMETRY (OP) Procedures Routine Hypoxia Ordered: 11/25/2024 Scheduled Procedures Name Priority Associated Diagnoses Date/Ti [...] this encounter Medical Devices Implanted Type Area Electrical Maintenance Worker Device Identifier Shelf Expiration Date Model / Serial / Lot Cement Antibiotic Bone - [id number] Implanted:Qty: 3 on 04/28/2012 [place] [facility] [place] VERONICA : ORTHOPAEDICS 11/19/2013 6197-9-010 / / [id number] Prostalac Acetabular Cup Implanted:Qty: 1 on 04/28/2012 at [place] [facility] [place]: Hip SUBHA & SUBHA DEPUY 05/19/2017 1541-42-320 / / [id number] Prostalac Hip Stem Size 105mm Std Offset Implanted:Qty: 1 on 04/28/2012 [place] [facility] [place]: Hip SUBHA & SUBHA DEPUY 10/19/2021 1541-01-000 / / [id number] Description:Prostalac Hip St em Size 105mm Offset (Depuy) Ball Artic Wiliam Brn 32 Plus5 - [id number] Implanted:Qty: 1 on 04/28/2012 [place] [facility] [place]: Hip JNJ : DEPUY ORTHOPAEDICS 10/19/2016 [id number] / / [id number] Rest Mod Prox Cone Body 23 +11 - [id number] Implanted:Qty: 1 on 04/14/2014 at [facility] Right: Hip VERONICA : ORTHOPAEDICS 10/19/2018 6276-1-123 / / [id number] Head Fem 28mm - [id number] Implanted:Qty: 1 on 04/14/2014 [place] [facility] [place]: Hip VERONICA : ORTHOPAEDICS 08/19/2018 6570-0-228 / / [id number] Insert 28mm - [id number] Implanted:Qty: 1 on 04/14/2014 [place] [facility] [place]: Hip VERONICA : ORTHOPAEDICS 02/16/2019 1236-2-848 / / [id number] Cable/Sle Beaded D/M 20 Vit - [id number] Implanted:Qty: 1 on 04/14/2014 [place] [facility] [place] Hip VERONICA : ORTHOPAEDICS 10/19/2017 6704-0-520 / / [id number] Cable/Sle Beaded D/M 20 Vit - [id number] Implanted:Qty: 1 on 04/14/2014 [place] [facility] [place]: Hip VERONICA : ORTHOPAEDICS 10/19/2017 6704-0-520 / / [id number] Tritanium Revision Acetabular - [id number] Implanted:Qty: 1 on 04/14/2014 at [facility] Right: Hip VERONICA : ORTHOPAEDICS 05/19/2018 509-02-56E / / [id number] Screw Bone Osteolock 24 - [id number] Implanted:Qty: 1 on 04/14/2014 at [facility] Right: Hip VERONICA : ORTHOPAEDICS 02/16/2019 5260-5-024 / / [id number] Screw Bone Osteolock 35 - [id number] Implanted:Qty: 1 on 04/14/2014 at [place] [facility] [place]: Hip VERONICA : ORTHOPAEDICS 03/19/2017 5260-5-035 / / [id number] Liner 42mm - [id number] Implanted:Qty: 1 on 04/14/2014 [place] [facility] [place]: Hip VERONICA : ORTHOPAEDICS 11/19/2018 626-00-42E / / [id number] Hip S Mod Conical Dis [id number] - [id number] Implanted:Qty: 1 on 04/14/2014 [place] [facility] [place]: Hip VERONICA : ORTHOPAEDICS 12/17/2018 6276-7-017 / / [id number] documented as of this encounter Visit Diagnoses Diagnosis Hypoxia- Primary Hypoxemia documented in this encounter Advance Directives * [...] and were consensually agreed upon. Care Teams Real Estate Administrator Relationship Specialty Start Date End Date Willie Epstein MD [address] [place] [address] PCP - General Family Medicine 11/22/16 documented as of this encounter
--- OUTSIDE RECORDS SUMMARY | 2025-02-24 07:32 | External Medical Summary | Summary of Care ---
Author Name Unknown Organization [facility] Address [address] [place] [address] Phone [phone] Care Team Providers Care Process Technician Name Role Phone Willie Epstein MD Primary Care Provider + Reason for Referral * Evaluate & Treat - Unlimited Visits (Within 10 days (routine)) - Authorized Specialty Diagnoses / Procedures Referred By Contac t Referred To Contact Wound Care Diagnoses Cellulitis of right leg Willie Epstein MD [address] [place] [address] Phone: tel: fax: Referral ID Status Reason Start Date Expiration Date Visits Requested Visits Authorized [id number] Authorized Specialty Services Required 11/30/2024 999 999 Question Answer Referral Priority Within 10 days (routine) Where should this appointment be scheduled? External - [facility] Where is the wound? Below the knee Comments Assess for: Other: right leg new ulcer. Hx DM/ ESRD Reason for Visit * Reason Comments Acute Sore on right inner ankle. Noticed swelling 2 days ago. Now has opened area Encounter Details Date Type Department Care Team (Late st Contact Info) Description 11/30/2024 6:20 PM EST Office Visit Family [facility] [address] [place] [address] Willie Epstein MD [address] [place] [address] Cellulitis of right leg*; Ulcer of right lower extremity, limited to breakdown of skin (HCC) Allergies Active Allergy Reactions Criticality Noted Date Comments Cefazolin Unknown 11/15/2023 Other Reaction(s): CAN'T REMEMBER Methylprednisolone Other (Please comment) 07/28/2017 Side effects c/w med (sweating, heart racing etc) Nitrofurantoin Hives High 03/01/2024 Nitrofurantoin Monohyd Macro Hives 04/04/2014 Pantoprazole Unknown 11/15/2023 Other Reaction(s): CAN'T REMEMBER Sulfa Antibiotics Edema face/lips/tongue High 09/02/2008 documented as of this encounter (statuses as of 12/01/2024) Medications INSULIN SYRINGE-NEEDLE U-100 30G X 1/2" 1 ML MISCIndications:DM type 2, goal A1c below 7 Use as directed 1 Box of 100 11 10/04/20 08 Active RENAL MULTIVITAMIN/ZINC PO TABS None Entered Active ONETOUCH ULTRASOFT LANCETS MISCIndications:Ty pe 2 diabetes mellitus with hemoglobin A1c goal of less than 8.0% ([facility]) Use as directed 2 times a day. 1 Box Dosing Unit 11 01/17/20 17 Active cinacalcet (SENSIPAR) 30 MG Tablet Take 1 Tab by mouth daily with dinner. 90 Tab 3 11/07/19 18 Active Blood Glucose Monitoring Suppl (ONETOUCH ULTRA [...] Patch 3 11/30/2024 5:30 PM EST 10/22/19 25 Active Simvastatin 20 MG Oral Tablet (Zocor)Indications :Dyslipidemia, goal LDL below 70 TAKE ONE TABLET BY MOUTH ONCE A DAY AT BEDTIME 90 Tablet 10/29/19 25 Active Molnupiravir 200 MG Oral Capsule Take 4 Capsules by mouth in the morning and 4 Capsules before bedtime. 40 Capsule 10/29/19 25 Active dexAMETHasone 6 MG Oral [...] for Nausea or Vomiting. 11/04/19 25 Active oxyCODONE HCl 15 MG Oral Tablet (Roxicodone) Take 1 Tablet by mouth every 8 hours as needed for Pain, Severe. 90 Tablet 11/08/19 25 Active Trulicity 0.75 MG/0.5ML Subcutaneous Solution Auto-injector (Dulaglutide)Indic ations:Type 2 diabetes mellitus with hemoglobin A1c goal of less than 8.0% ([facility]) INJECT UNDER THE SKIN 0.75 MG ONCE A WEEK 6 mL 1 11/08/19 25 Active Cephalexin 500 MG Oral Capsule Take 1 Capsule by mouth every night at bedtime for 10 days. Or dinner. 10 Capsule 11/30/19 25 025 Active Silver sulfADIAZINE 1 % External Cream (Silvadene) Apply topically to affected area daily. Apply to ulcer 400 g 1 11/30/19 25 Active documented as of this encounter (statuses as of 12/01/2024) Active Problems Problem Noted Date Diagnosed Date [...] will 2017 consider transplant needs 20lb -HD [facility]? T,R, S. Since January 2013. Spondylolisthesis [...] as of this encounter (statuses as of 12/01/2024) Resolved Problems Problem Noted Date Diagnosed Date [...] 08/25/200909/06 Overview (08/25/2009): Modified 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 long-term current use of ant icoagulant therapy 04/19/2009 [...] s/p B/L stents Sees Dr. 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 Subjective Meka Hess is a 69 year old female presenting for Acute (Sore on right inner ankle. Noticed swelling 2 days ago. Now has opened area ) History of Present Illness The patient presents with a new onset ulcer on the right inner calf. Had swelling R>L leg earlier in week, improved today. The ulcer started as a dark, reddish area that was swollen and painful. The patient admits to dietary non- compliance which may have contributed to the development of the ulcer. The patient denies fever and chills. The patient also notes that the ankle was significantly swollen the previous day, to the point where she could hardly get her shoe on. The patient denies any previous history of similar sores. No CP, SOB. Continues HD TIW. No fever/chills. Objective Blood pressure 112/58, pulse 91, resp. rate 16, last menstrual period 11/16/2000, SpO2 96%. Physical Exam SKIN: Ulcer on right medial calf, approximately 6 cm by 2.5 cm, with surrounding erythema and presence of small white spots, described as sore to touch. Nonpitting Edema noted in the ankle region. Redness/warm from mid foot to mid manuel Results Assessment and Plan Assessment & Plan Right Inner Ankle Ulcer New onset, approximately 6cm x 2.5cm in size -Documented with photograph for future comparison. -Start antibiotic to prevent bacterial spread. Keflex Rx Silvadene [facility]elfa Dialysis Compliance Patient admits to poor dietary compliance, leading to fluid overload and likely contributing to ulcer formation. -Encourage adherence to dietary restrictions to prevent fluid overload. Cellulitis-Rx as above F/u prn Cellulitis of right leg (Primary) - WOUND CARE REFERRAL OP Other orders - Cephalexin 500 MG Oral Capsule; Take 1 Capsule by mouth every night at bedtime for 10 days. Or dinner. - Silver sulfADIAZINE 1 % External Cream (Silvadene); Apply topically to affected area daily. Applyto ulcer Wrap-Up Time: I spent a total of 20-29 minutes (exact time 25 mins) on the date of service in [...] during the encounter consented to its use. documented in this encounter Nursing Notes * Shanelle Carlson LPN - 11/30/2024 5:37 PM EST The patient has been properly identified by confirmation of name and date of . Chief Complaint Patient presents with Acute Sore on right inner ankle. Noticed swelling 2 days ago. Now has opened area documented in this encounter Plan of Treatment Upcoming Encounters Date Type Department Care Team (Late st Contact Info) Description 12/15/2024 11:00 AM EST Office Visit Pharm[facility] [address] [place] [address] [facility] [address] [place] [address] 03/22/2025 1:40 PM EDT Office Visit Family Practice [facility] [address] [place] [address] Willie Epstein MD [address] [place] [place] [address] 05/23/2025 3:00 PM EDT Office Visit Dermatology [address] [place] [address] Coco Ivan PA-C [address] [place] [address] [place] [address] 06/13/2025 11:00 AM EDT Cardiac Studies [facility], [facility] [place] [address] 07/04/2025 4:00 PM EDT Office Visit Cardiology, [facility] [address] [place] [address] Bandar Avila MD [address] [place] [place] [address] Scheduled Procedures Name Priority Associated Diagnoses Date/Ti me COLONOSCOPY FLEXIBLE PROXIMAL DIAGNOSTIC Recall History of colon polyps Scheduled Referrals Name Type Priority Associated Diagnoses Orde r Schedule WOUND CARE REFERRAL OP Referral Within 10 days (routine) Cellulitis of right leg Ordered: 11/30/2024 Health Maintenance Due Date Last Done Comments [...] this encounter Medical Devices Implanted Type Area Equal Opportunity Assistant Device Identifier Shelf Expiration Date Model / Serial / Lot Cement Antibiotic Bone - [id number] Implanted:Qty: 3 on 04/28/2012 at [place] [facility] [place] Right: Hip VERONICA : ORTHOPAEDICS 11/19/2013 6197-9-010 / / [id number] Prostalac Acetabular Cup Implanted:Qty: 1 on 04/28/2012 at [facility] Right: Hip SUBHA & SUBHA DEPUY 05/19/2017 1541-42-320 / / [id number] Prostalac Hip Stem Size 105mm Std Offset Implanted:Qty: 1 on 04/28/2012 at [facility] Right: Hip SUBHA & SUBHA DEPUY 10/19/2021 1541-01-000 / / [id number] Description:Prostalac Hip St em Size 105mm Offset (Depuy) Ball Artic Wiliam Brn 32 Plus5 - [id number] Implanted:Qty: 1 on 04/28/2012 at [place] [facility] [place] Right: Hip JNJ : DEPUY ORTHOPAEDICS 10/19/2016 [id number] / / [id number] Rest Mod Prox Cone Body 23 +11 - [id number] Implanted:Qty: 1 on 04/14/2014 at [facility] Right: Hip VERONICA : ORTHOPAEDICS 10/19/2018 6276-1-123 / / [id number] Head Fem 28mm - [id number] Implanted:Qty: 1 on 04/14/2014 at [place] [facility] [place] Right: Hip VERONICA : ORTHOPAEDICS 08/19/2018 6570-0-228 / / [id number] Insert 28mm - [id number] Implanted:Qty: 1 on 04/14/2014 at [place] [facility] [place] Right: Hip VERONICA : ORTHOPAEDICS 02/16/2019 1236-2-848 / / [id number] Cable/Sle Beaded D/M 20 Vit - [id number] Implanted:Qty: 1 on 04/14/2014 at [place] [facility] [place] Right: Hip VERONICA : ORTHOPAEDICS 10/19/2017 6704-0-520 / / [id number] Cable/Sle Beaded D/M 20 Vit - [id number] Implanted:Qty: 1 on 04/14/2014 at [place] [facility] [place] Right: Hip VERONICA : ORTHOPAEDICS 10/19/2017 6704-0-520 / / [id number] Tritanium Revision Acetabular - [id number] Implanted:Qty: 1 on 04/14/2014 at [facility] Right: Hip VERONICA : ORTHOPAEDICS 05/19/2018 509-02-56E / / [id number] Screw Bone Osteolock 24 - [id number] Implanted:Qty: 1 on 04/14/2014 at [facility] Right: Hip VERONICA : ORTHOPAEDICS 02/16/2019 5260-5-024 / / [id number] Screw Bone Osteolock 35 - [id number] Implanted:Qty: 1 on 04/14/2014 at [facility] Right: Hip VERONICA : ORTHOPAEDICS 03/19/2017 5260-5-035 / / [id number] Liner 42mm - [id number] Implanted:Qty: 1 on 04/14/2014 at [facility] Right: Hip VERONICA : ORTHOPAEDICS 11/19/2018 626-00-42E / / [id number] Hip S Mod Conical Dis 21f694 - [id number] Implanted:Qty: 1 on 04/14/2014 at [place] [facility] [place] Right: Hip VERONICA : ORTHOPAEDICS 12/17/2018 6276-7-017 / / [id number] documented as of this encounter Visit Diagnoses Diagnosis Cellulitis of right leg- Primary Cellulitis and abscess of leg, except foot Ulcer of right lower extremity, limited to breakdown of skin (HCC) documented in this encounter Advance Directives * [...] and were consensually agreed upon. Care Teams Process Technician Relationship Specialty Start Date End Date Willie Epstein MD [address] [place] [address] PCP - General Family Medicine 11/22/16 documented as of this encounter
--- OUTSIDE RECORDS SUMMARY | 2025-02-24 07:32 | External Medical Summary | Summary of Care ---
Author Name Unknown Organization [facility] Address [address] [place] [address] Phone [phone] Care Team Providers Care Sales Agent [employer] Insurance Name Role Phone Willie Epstein MD Primary Care Provider + Reason for Visit * Reason Onset Date Comments Advice 11/22/2024 Encounter Details Date Type Department Care Team (Late st Contact Info) Description 11/22/2024 Telephone Family Practice [facility] [address] [place] [address] Willie Epstein MD [address] [place] [id number] Advice Allergies Active Allergy Reactions Criticality Noted [...] goal of less than 8.0% ([facility]) Use as directed 2 times a day. 1 Box Dosing Unit 11 01/17/20 17 Active cinacalcet (SENSIPAR) 30 MG Tablet Take 1 Tab by mouth daily with dinner. 90 Tab 3 11/07/19 18 Active Blood Glucose Monitoring Suppl (Alltuition ULTRA 2) w/Device KIT Use to check blood sugar 2 times a day; E11.9. 1 Kit 10/22/19 20 Active Glucose Blood (TVbeatTOUCH ULTRA BLUE) STRP Use to check blood [...] goal of less than 8.0% ([facility]) INJECT UNDER THE SKIN 0.75 [...] adult exam 08/04/2019 Overview (03/04/2024): 03/12 EGD [facility]-normal esoph, gastritis. Small hiatal hernia. Gastric 10mm diverticula 01/09 DEXA +osteoporosis. NEED discuss. 11/10 colon +tubular adenomas. 04/09 mult compression fractures. 05/2018 many polyps Therapeutic opioid induced constipation 08/04/20 19 ESRD on dialysis 09/08/2016 Overview (02/26/2021): 03/05 HCP forms given-wants . NEEDS further Living will 2017 consider transplant needs 20lb -HD [facility]? T,R, S. Since January 2013. Spondylolisthesis [...] 04/13/2021 Overview (04/09/2021): Mult levels 04/09 CT [facility] + lumbar Respiratory symptoms 01/08/2020 021 Fever of unknown origin (FUO) 01/07/2020 02/26/2021 Respiratory infection 01/07/20202020 Cellulitis 06/28/2016 09/08/2016 Abnormal vaginal bleeding 02/12/2016 Cellulitis 02/07/2016 09/08/2016 UTI (urinary tract infection), bacterial 04/19/2014 05/02/2014 Hypotension 04/15/2014 05/02/2014 Compression of lumbar vertebra 02/03/2013 06/07/2021 Overview (04/09/2021): Mult levels noted 04/[address] [facility] [address] also thoracic CKD (chronic [...] s/p B/L stents Sees Dr. 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 * Telephone Encounter - Eryn Cortez PHARM Tech - 12/01/2024 12:55 PM EST Pt calling regarding O2 tanks that need to be returned. Warm transfer to clinic nurse. Thank you, Eryn Cortez Pharmacy Innovation Assistant I [facility] ([facility]) 12/01/2024,12:56 PM * Telephone Encounter - Arlene Garces LPN - 11/26/2024 8:01 AM EST Left detailed message that we need noturnal SPO2 before we can d/c O2 order from [facility]. Order for NPO is faxed to [facility]. LM that she is to do this [...] 12/15/2024 11:00 AM EST Office Visit Pharmacy, [facility] [address] [address] [facility] [address] [place] [address] 03/22/2025 1:40 PM EDT Office Visit Family Practice [facility] [address] [place] [address] Willie Epstein MD [address] [place] [address] 05/23/2025 3:00 PM EDT Office Visit Dermatology [address] [place] [address] Coco Ivan PA-C [address] [place] [address] [place] [address] 06/13/2025 11:00 AM EDT Cardiac Studies Cardiac Studies, [facility] [address] [place] [address] 07/04/2025 4:00 PM EDT Office Visit Cardiology, [facility] [address] [place] [address] Bandar Avila MD [address] [place] [address] Scheduled Orders Name Type Priority Associated Diagnoses [...] this encounter Medical Devices Implanted Type Area Material Handler Loader Device Identifier Shelf Expiration Date Model / Serial / Lot Cement Antibiotic Bone - [id number] Implanted:Qty: 3 on 04/[place] [facility] [place] VERONICA : ORTHOPAEDICS 11/19/2013 6197-9-010 / / [id number] Prostalac Acetabular Cup Implanted:Qty: 1 on 04/28/2012 [place] [facility] [place]: Hip SUBHA & SUBHA DEPUY 05/19/2017 1541-42-320 / / [id number] Prostalac Hip Stem Size 105mm Std Offset Implanted:Qty: 1 on 04/28/2012 [place] [facility] [place]: Hip SUBHA & SUBHA DEPUY 10/19/2021 1541-01-000 / / [id number] Description:Prostalac Hip St em Size 105mm Offset (Depuy) Ball Artic Wiliam Brn 32 Plus5 - [id number] Implanted:Qty: 1 on 04/28/2012 [place] [facility] [place]: Hip JNJ : DEPUY ORTHOPAEDICS 10/19/2016 [id number] / / [id number] Rest Mod Prox Cone Body 23 +11 - [id number] Implanted:Qty: 1 on 04/14/2014 [place] [facility] [place]: Hip VERONICA : ORTHOPAEDICS 10/19/2018 6276-1-123 / / [id number] Head Fem 28mm - [id number] Implanted:Qty: 1 on 04/14/2014 at [facility] Right: Hip VERONICA : ORTHOPAEDICS 08/19/2018 6570-0-228 / / [id number] Insert 28mm - [id number] Implanted:Qty: 1 on 04/14/2014 at [facility] Right: Hip VERONICA : ORTHOPAEDICS 02/16/2019 1236-2-848 / / [id number] Cable/Sle Beaded D/M 20 Vit - [id number] Implanted:Qty: 1 on 04/14/2014 at [facility] Right: Hip VERONICA : ORTHOPAEDICS 10/19/2017 6704-0-520 / / [id number] Cable/Sle Beaded D/M 20 Vit - [id number] Implanted:Qty: 1 on 04/14/2014 at [facility] Right: Hip VERONICA : ORTHOPAEDICS 10/19/2017 6704-0-520 / / [id number] Tritanium Revision Acetabular - [id number] Implanted:Qty: 1 on 04/14/2014 at [facility] Right: Hip VERONICA : ORTHOPAEDICS 05/19/2018 509-02-56E / / [id number] Screw Bone Osteolock 24 - [id number] Implanted:Qty: 1 on 04/14/2014 at [facility] Right: Hip VERONICA : ORTHOPAEDICS 02/16/2019 5260-5-024 / / [id number] Screw Bone Osteolock 35 - [id number] Implanted:Qty: 1 on 04/14/2014 at [facility] Right: Hip VERONICA : ORTHOPAEDICS 03/19/2017 5260-5-035 / / [id number] Liner 42mm - [id number] Implanted:Qty: 1 on 04/14/2014 at [facility] Right: Hip VERONICA : ORTHOPAEDICS 11/19/2018 626-00-42E / / [id number] Hip S Mod Conical Dis 65i682 - [id number] Implanted:Qty: 1 on 04/14/2014 at [facility] Right: Hip VERONICA : ORTHOPAEDICS 12/17/2018 6276-7-017 / / [id number] documented as of this encounter Visit Diagnoses [...] and were consensually agreed upon. Care Teams Sales Agent Marine Insurance Relationship Specialty Start Date End Date Willie Epstein MD [address] [place] [address] PCP - General Family Medicine 11/22/16 documented as of this encounter
--- OUTSIDE RECORDS SUMMARY | 2025-02-24 07:32 | External Medical Summary | Summary of Care ---
Author Name Unknown Organization [facility] Address [address] [place] [address] Phone [phone] Care Team Providers Care Nursing Center Tutor Name Role Phone Willie Pizarro MD Primary Care Provider + Reason for Visit * Reason Onset Date Comments Medication Refill 12/07/2024 Encounter Details Date Type Department Care Team (Late st Contact Info) Description 12/07/2024 Refill Family Practice [facility] [address] [facility] [place] [phone] Willie Pizarro MD [address] [facility] [place] [address] Spondylolisthesis of lumbosacral region*; Opiate dependence, continuous (HCC); MEDICATION USE AGREEMENT Allergies Active Allergy Reactions Criticality Noted Date Comments Cefazolin Unknown 11/15/2023 Other Reaction(s): CAN'T REMEMBER Methylprednisolone Other (Please comment) 07/28/2017 Side effects c/w med (sweating, heart racing etc) Nitrofurantoin Hives High 03/01/2024 Nitrofurantoin Monohyd Macro Hives 04/04/2014 Pantoprazole Unknown 11/15/2023 Other Reaction(s): CAN'T REMEMBER Sulfa Antibiotics Edema face/lips/tongue High 09/02/2008 documented as of this encounter (statuses as of 12/09/2024) Medications INSULIN SYRINGE-NEEDLE U-100 30G X 1/2" 1 ML MISCIndications:D M type 2, goal A1c below 7 Use as directed 1 Box of 100 11 008 Active RENAL MULTIVITAMIN/ZINC PO TABS None Entered Active ONETOUCH ULTRASOFT LANCETS MISCIndications:T ype 2 diabetes mellitus with hemoglobin A1c goal of less than 8.0% ([facility]) Use as directed 2 times a day. 1 Box Dosing Unit 11 017 Active cinacalcet (SENSIPAR) 30 MG Tablet Take 1 Tab by mouth daily with dinner. 90 Tab 3 018 Active Blood Glucose Monitoring Suppl (In Loco Media ULTRA 2) w/Device KIT Use to check blood sugar 2 times a day; E11.9. 1 Kit 020 Active Glucose Blood (ChipVision DesignUCH ULTRA BLUE) STRP Use to check blood [...] than 8.0% ([facility]) INJECT UNDER THE SKIN 0.75 MG ONCE A WEEK 6 mL 1 Active Cephalexin 500 MG Oral Capsule Take 1 Capsule by mouth every night at bedtime for 10 days. Or dinner. 10 Capsule 025 2024 Active Silver sulfADIAZINE 1 % External Cream (Silvadene) Apply topically to affected area daily. Apply to ulcer 400 g 1 Active Buprenorphine 15 MCG/HR Transdermal Patch Weekly (Butrans)Indicati ons:Opiate dependence, continuous (HCC),MEDICATION USE AGREEMENT,Spondyl olisthesis of lumbosacral region Place 15 mcg topically on the skin once for 1 dose. 4 Patch 025 2024 Active oxyCODONE HCl 15 MG Oral Tablet (Roxicodone) Take 1 Tablet by mouth every 8 hours as needed for Pain, Severe. 21 Tablet Active Buprenorphine 10 MCG/HR Transdermal Patch Weekly (Butrans) Place 1 Patch over 7 days topically on the skin once a week. 4 Patch 3 11/30/19 25 5:30 PM EST 025 2024 Discontinued oxyCODONE HCl 15 MG Oral Tablet (Roxicodone) Take 1 Tablet by mouth every 8 hours as needed for Pain, Severe. 90 Tablet 025 2024 Discontinued(R efill) documented as of this encounter (statuses as of 12/09/2024) Active Problems Problem Noted Date Diagnosed Date [...] will 2017 consider transplant needs 20lb -HD [facility]? T,R, S. Since January 2013. Spondylolisthesis [...] as of this encounter (statuses as of 12/09/2024) Resolved Problems Problem Noted Date Diagnosed Date Resolved Date Thoracic compression fracture 04/09/2021 04/13/2021 Overview (04/09/2021): Mult levels 04/09 CT [facility] + lumbar [...] 08/25/200909/06 Overview (08/25/2009): Modified 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 If agreeable send script to [id number] [id number] [facility] Thank you, Eryn Cortez Center Punch Operator I [facility] ([facility]) 12/09/2024,1:56 [...] pain. * Telephone Encounter - Arlene Elise [facility] - 12/09/2024 8:02 AM EST I find it hard to believe that Butrans is not helping at all, but yes I would offer an increase at this time, since she has been on the patch for >7 days. She also told me in her last appointment that oxycodone did nothing. Thanks, Arlene * Telephone Encounter - Willie Pizarro MD [...] Please advise Thank you, Nakita Campoverde CPhT [employer] III [facility] ([facility]) [address] [place] [address], [address] [address] * Telephone Encounter - Latisha De La [...] has none Thank you, Jo Ann Palacios [employer] [facility] ([facility]) (formerly Telepharmacy) 12/08/2024 1:31 PM * Telephone Encounter - Percy Redmond [facility] - 12/07/2024 12:59 PM ESTPending Prescriptions: Disp Refills oxyCODONE HCl 15 MG Oral Tablet (Roxicodon*90 Tab*0 Sig: Take 1 Tablet by mouth every 8 hours as needed for Pain, Severe. * Telephone Encounter - Percy Redmond [facility] - 12/07/2024 12:58 PM EST I have reviewed the patient’s controlled substance dispensing history in the Prescription Drug Monitoring Program in compliance with the [facility] regulations before prescribing a controlled substance. PDMP checked on 12/07/2024. Pending Prescriptions: Disp Refills oxyCODONE HCl 15 MG Oral Tablet (Roxicodo*90 Tab*0 Sig: Take 1 Tablet by mouth every 8 hours as needed for Pain, Severe. Last Visit: 11/30/2024 (in office), 01/21/2024 (telemedicine) Next Visit: 03/22/2025 Date medication was last filled: 11/08/24 Date medication is due for refill: 12/07/24 Pharmacy: [id number] [address] Is this request for a controlled [...] approve if appropriate. Thank You, Percy Johnson [facility] Clinical Pharmacist [facility] ([facility]) 12/07/2024, 12:59 PM * Telephone Encounter - Bhupinder Vergara PHARM Tech - 12/07/2024 12:42 PM EST Did you pend patient's preferred pharmacy and medication before forwarding?yes Pharmacy: [id number] [id number] [facility] Pending Prescriptions: Disp Refills oxyCODONE HCl 15 [...] 12/15/2024 11:00 AM EST Office Visit Pharmacy, [address] [place] [address] [facility] [address] [place] [address] 03/22/2025 1:40 PM EDT Office Visit Family Practice [facility] [address] [place] [address] Willie Pizarro MD [address] [place] [address] 05/23/2025 3:00 PM EDT Office Visit Dermatology [address] [place] [address] Coco Ivan PA-C [address] [place] [address] [place] [address] 06/13/2025 11:00 AM EDT Cardiac Studies Cardiac Studies, [facility] [address] [place] [address] 07/04/2025 4:00 PM EDT Office Visit Cardiology, [facility] [address] [place] [address] Bandar Avila MD [address] [place] [address] Scheduled Procedures Name Priority Associated Diagnoses Date/Ti [...] this encounter Medical Devices Implanted Type Area Sql Report Analyst Device Identifier Shelf Expiration Date Model / Serial / Lot Cement Antibiotic Bone - [id number] [place] 3 [place] [facility] [place] VERONICA : ORTHOPAEDICS 11/19/2013 6197-9-010 / / [id number] Prostalac Acetabular Cup Implanted:Qty: 1 on 04[place]28/2012 [place] [facility] [place] SUBHA & SUBHA DEPUY 05/19/2017 1541-42-320 / / [id number] Prostalac Hip Stem Size 105mm Std Offset Implanted:Qty: 1 on 04/28/2012 at [facility] Right: Hip SUBHA & SUBHA DEPUY 10/19/2021 1541-01-000 / / [id number] Description:Prostalac Hip St em Size 105mm Offset (Depuy) Ball Artic Wiliam Brn 32 Plus5 - [id number] Implanted:Qty: 1 [place] 04[place]28[place] [facility] [place] Hip JNJ : DEPUY ORTHOPAEDICS 10/19/2016 [id number] / / [id number] Rest Mod Prox Cone Body 23 +11 - [id number] Implanted:Qty: 1 on 04[place]14[place]2014 [place] [facility] [place] Hip VERONICA : ORTHOPAEDICS 10/19/2018 6276-1-123 / / [id number] Head Fem 28mm - [id number] Implanted:Qty: 1 on 04[place]14/2014 [place] [facility] [place] Hip VERONICA : ORTHOPAEDICS 08/19/2018 6570-0-228 / / [id number] Insert 28mm - [id number] Implanted:Qty: 1 on 04/14/2014 at [facility] Right: Hip VERONICA : ORTHOPAEDICS 02/16/2019 1236-2-848 / / [id number] Cable/Sle Beaded D/M 20 Vit - [id number] Implanted:Qty: 1 on 04[place]14/2014 [place] [facility] [place] Hip VERONICA : ORTHOPAEDICS 10/19/2017 6704-0-520 / / [id number] Cable/Sle Beaded D/M 20 Vit - [id number] Implanted:Qty: 1 on 04/14/2014 at [facility] Right: Hip VERONICA : ORTHOPAEDICS 10/19/2017 6704-0-520 / / [id number] Tritanium Revision Acetabular - [id number] Implanted:Qty: 1 on 04/14/2014 [place] [facility] [place]: Hip VERONICA : ORTHOPAEDICS 05/19/2018 509-02-56E / / [id number] Screw Bone Osteolock 24 - [id number] Implanted:Qty: 1 [place] 04[place]14/2014 [place] [facility] [place]: Hip VERONICA : ORTHOPAEDICS 02/16/2019 5260-5-024 / / [id number] Screw Bone Osteolock 35 - [id number] Implanted:Qty: 1 on 04/14/2014 [place] [facility] [place]: Hip VERONICA : ORTHOPAEDICS 03/19/2017 5260-5-035 / / [id number] Liner 42mm - [id number] Implanted:Qty: 1 on 04/14/2014 [place] [facility] [place]: Hip VERONICA : ORTHOPAEDICS 11/19/2018 626-00-42E / / [id number] Hip S Mod Conical Dis 16m712 - [id number] Implanted:Qty: 1 on 04/14/2014 [place] [facility] [place]: Hip VERONICA : ORTHOPAEDICS 12/17/2018 6276-7-017 / / [id number] documented as of this encounter Visit Diagnoses Diagnosis Spondylolisthesis of lumbosacral region- Primary Acquired spondylolisthesis Opiate dependence, continuous (HCC) Opioid type dependence, continuous MEDICATION USE AGREEMENT documented in this encounter Advance Directives * [...] and were consensually agreed upon. Care Teams Nursing Center Tutor Relationship Specialty Start Date End Date Willie Pizarro MD [address] [place] [address] PCP - General Family Medicine 11/22/16 documented as of this encounter
--- OUTSIDE RECORDS SUMMARY | 2025-02-24 07:32 | External Medical Summary | Summary of Care ---
Author Name Unknown Organization [facility] Address [address] [place] [address] Phone [phone] Care Team Providers Care Diesel Technician Mechanic Name Role Phone Willie Epstein MD Primary Care Provider + Reason for Visit * Reason Onset Date Comments Encounter Created in Error 12/01/2024 Encounter Details Date Type Department Care Team (Late st Contact Info) Description 12/01/2024 Telephone Family Practice [facility] [address] [place] [address] Willie Epstein MD [address] [place] [address] Encounter Created in Error Allergies Active Allergy [...] RENAL MULTIVITAMIN/ZINC PO TABS None Entered Active SeniorCareTOUCH ULTRASOFT LANCETS MISCIndications:Ty pe 2 diabetes mellitus with hemoglobin A1c goal of less than 8.0% ([facility]) Use as directed 2 times a day. 1 Box Dosing Unit 11 01/17/20 17 Active cinacalcet (SENSIPAR) 30 MG Tablet Take 1 Tab by mouth daily with dinner. 90 Tab 3 11/07/19 18 Active Blood Glucose Monitoring Suppl (TapTap ULTRA 2) w/Device KIT Use to check blood sugar 2 times a day; E11.9. 1 Kit 10/22/19 20 Active Glucose Blood (SeniorCareTOUCH ULTRA BLUE) STRP Use to check blood [...] less than 8.0% ([facility]) INJECT UNDER THE SKIN 0.75 MG ONCE A WEEK 6 mL 1 11/08/19 Active Cephalexin 500 MG Oral Capsule Take [...] Overview (03/04/2024): 03/12 EGD [facility]-normal esoph, gastritis. Small hiatal hernia. Gastric 10mm diverticula 01/09 DEXA +osteoporosis. NEED discuss. 11/10 colon +tubular adenomas. 04/09 mult compression fractures. 05/2018 many polyps Therapeutic opioid induced constipation 08/04/20 19 ESRD on dialysis 09/08/2016 Overview (02/26/2021): 03/05 HCP forms given-wants . NEEDS further Living will 2017 consider transplant needs 20lb -HD [facility]? T,R, S. Since January 2013. Spondylolisthesis [...] levels 04/09 CT [facility] + lumbar Respiratory symptoms 01/08/2020 021 Fever of unknown origin (FUO) 01/07/2020 02/26/2021 Respiratory infection 01/07/20202020 Cellulitis 06/28/2016 09/08/2016 Abnormal vaginal bleeding 02/12/2016 Cellulitis 02/07/2016 09/08/2016 UTI (urinary tract infection), bacterial 04/19/2014 05/02/2014 Hypotension 04/15/2014 05/02/2014 Compression of lumbar vertebra 02/03/2013 06/07/2021 Overview (04/09/2021): Mult levels noted 04/[address] [facility] [address] also thoracic CKD (chronic [...] s/p B/L stents Sees Dr. 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 Not on file [...] 12/15/2024 11:00 AM EST Office Visit Pharmacy, [facility] [address] [address] [facility] [address] [address] 03/22/2025 1:40 PM EDT Office Visit Family Practice [facility] [address] [address] Willie Epstein MD [address] [place] [address] 05/23/2025 3:00 PM EDT Office Visit Dermatology [address] [place] [address] Coco Ivan PA-C [address] [place] [address] [place] [address] 06/13/2025 11:00 AM EDT Cardiac Studies Cardiac Studies, [facility] [address] [address] 07/04/2025 4:00 PM EDT Office Visit Cardiology, [facility] [address] [address] Bandar Avila MD [address] [place] [address] Scheduled Procedures Name Priority Associated Diagnoses Date/Ti [...] this encounter Medical Devices Implanted Type Area Harness Cleaner Device Identifier Shelf Expiration Date Model / Serial / Lot Cement Antibiotic Bone - [id number] Implanted:Qty: 3 on 04/28/2012 [place] [facility] [place] Hip VERONICA : ORTHOPAEDICS 11/19/2013 6197-9-010 / / [id number] Prostalac Acetabular Cup Implanted:Qty: 1 on 04/28/2012 at [place] [facility] Right: Hip SUBHA & SUBHA DEPUY 05/19/2017 1541-42-320 / / [id number] Prostalac Hip Stem Size 105mm Std Offset Implanted:Qty: 1 on 04/28/2012 at [facility] Right: Hip SUBHA & SUBHA DEPUY 10/19/2021 1541-01-000 / / [id number] Description:Prostalac Hip St em Size 105mm Offset (Depuy) Ball Artic Wiliam Brn 32 Plus5 - [id number] Implanted:Qty: 1 on 04/28/2012 at [place] [facility] [place] Right: Hip JNJ : DEPUY ORTHOPAEDICS 10/19/2016 [id number] / / [id number] Rest Mod Prox Cone Body 23 +11 - [id number] Implanted:Qty: 1 on 04/14/2014 at [facility] Right: Hip VERONICA : ORTHOPAEDICS 10/19/2018 6276-1-123 / / [id number] Head Fem 28mm - [id number] Implanted:Qty: 1 on 04/14/2014 at [place] [facility] [place] Right: Hip VERONICA : ORTHOPAEDICS 08/19/2018 6570-0-228 / / [id number] Insert 28mm - [id number] Implanted:Qty: 1 on 04/14/2014 at [facility] Right: Hip VERONICA : ORTHOPAEDICS 02/16/2019 1236-2-848 / / [id number] Cable/Sle Beaded D/M 20 Vit - [id number] Implanted:Qty: 1 on 04/14/2014 at [facility] Right: Hip VERONICA : ORTHOPAEDICS 10/19/2017 6704-0-520 / / [id number] Cable/Sle Beaded D/M 20 Vit - [id number] Implanted:Qty: 1 on 04/14/2014 at [facility] Right: Hip VERONICA : ORTHOPAEDICS 10/19/2017 6704-0-520 / / [id number] Tritanium Revision Acetabular - [id number] Implanted:Qty: 1 on 04/14/2014 at [facility] Right: Hip VERONICA : ORTHOPAEDICS 05/19/2018 509-02-56E / / [id number] Screw Bone Osteolock 24 - [id number] Implanted:Qty: 1 on 04/14/2014 at [facility] Right: Hip VERONICA : ORTHOPAEDICS 02/16/2019 5260-5-024 / / [id number] Screw Bone Osteolock 35 - [id number] Implanted:Qty: 1 on 04/14/2014 at [facility] Right: Hip VERONICA : ORTHOPAEDICS 03/19/2017 5260-5-035 / / [id number] Liner 42mm - [id number] Implanted:Qty: 1 on 04/14/2014 at [facility] Right: Hip VERONICA : ORTHOPAEDICS 11/19/2018 626-00-42E / / [id number] Hip S Mod Conical Dis 48u593 - [id number] Implanted:Qty: 1 on 04/14/2014 at [place] [facility] Right: Hip VERONICA : ORTHOPAEDICS 12/17/2018 6276-7-017 / / [id number] documented as of this encounter Advance Directives [...] and were consensually agreed upon. Care Teams Diesel Technician Mechanic Relationship Specialty Start Date End Date Willie Epstein MD [address] [place] [address] PCP - General Family Medicine 11/22/16 documented as of this encounter
--- OUTSIDE RECORDS SUMMARY | 2025-02-24 07:32 | External Medical Summary | Summary of Care ---
Author Name Unknown Organization [facility] Address [address] [place] [address] Phone [phone] Care Team Providers Care Seo Professional Name Role Phone Willie Epstein MD Primary Care Provider + Reason for Visit * Reason Onset Date Comments Advice 11/22/2024 Encounter Details Date Type Department Care Team (Late st Contact Info) Description 11/22/2024 Telephone Family Practice [facility] [address] [place] [address] Willie Epstein MD [address] [place] [id number] Advice Allergies Active Allergy Reactions Criticality Noted [...] goal of less than 8.0% ([facility]) Use as directed 2 times a day. 1 Box Dosing Unit 11 01/17/20 17 Active cinacalcet (SENSIPAR) 30 MG Tablet Take 1 Tab by mouth daily with dinner. 90 Tab 3 11/07/19 18 Active Blood Glucose Monitoring Suppl ([employer] ULTRA 2) w/Device KIT Use to check blood sugar 2 times a day; E11.9. 1 Kit 10/22/19 20 Active Glucose Blood (VehrityTOUCH ULTRA BLUE) STRP Use to check blood [...] goal of less than 8.0% ([facility]) INJECT UNDER THE SKIN 0.75 MG [...] adult exam 08/04/2019 Overview (03/04/2024): 03/12 EGD [facility]-normal esoph, gastritis. Small hiatal hernia. Gastric 10mm diverticula 01/09 DEXA +osteoporosis. NEED discuss. 11/10 colon +tubular adenomas. 04/09 mult compression fractures. 05/2018 many polyps Therapeutic opioid induced constipation 08/04/20 19 ESRD on dialysis 09/08/2016 Overview (02/26/2021): 03/05 HCP forms given-wants . NEEDS further Living will 2017 consider transplant needs 20lb -HD [facility]? T,R, S. Since January 2013. Spondylolisthesis [...] 04/13/2021 Overview (04/09/2021): Mult levels 04/09 CT [facility] + lumbar Respiratory symptoms 01/08/2020 021 Fever of unknown origin (FUO) 01/07/2020 02/26/2021 Respiratory infection 01/07/20202020 Cellulitis 06/28/2016 09/08/2016 Abnormal vaginal bleeding 02/12/2016 Cellulitis 02/07/2016 09/08/2016 UTI (urinary tract infection), bacterial 04/19/2014 05/02/2014 Hypotension 04/15/2014 05/02/2014 Compression of lumbar vertebra 02/03/2013 06/07/2021 Overview (04/09/2021): Mult levels noted [facility] [...] s/p B/L stents Sees Dr. 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 Thank you, Eryn Cortez Table Tender Sludge I [facility] ([facility]) 12/01/2024,12:56 [...] 12/15/2024 11:00 AM EST Office Visit Pharmacy, [facility] [address] [address] [facility] [address] [place] [address] 03/22/2025 1:40 PM EDT Office Visit Family Practice [facility] [address] [place] [address] Willie Epstein MD [address] [place] [address] 05/23/2025 3:00 PM EDT Office Visit Dermatology [address] [place] [address] Coco Ivan PA-C [address] [place] [address] [place] [address] 06/13/2025 11:00 AM EDT Cardiac Studies Cardiac Studies, [facility] [address] [place] [address] 07/04/2025 4:00 PM EDT Office Visit Cardiology, [facility] [address] [place] [address] Bandar Avila MD [address] [place] [address] Scheduled Orders Name Type Priority Associated Diagnoses [...] this encounter Medical Devices Implanted Type Area Curator [employer] Device Identifier Shelf Expiration Date Model / Serial / Lot Cement Antibiotic Bone - [id number] Implanted:Qty: 3 on 04/28/2012 at [place] [facility] [place] Right: Hip VERONICA : ORTHOPAEDICS 11/19/2013 6197-9-010 / / [id number] Prostalac Acetabular Cup Implanted:Qty: 1 on 04/28/2012 at [place] [facility] [place] Right: Hip SUBHA & SUBHA DEPUY 05/19/2017 1541-42-320 / / [id number] Prostalac Hip Stem Size 105mm Std Offset Implanted:Qty: 1 on 04/28/2012 at [place] [facility] Right: Hip SUBHA & SUBHA DEPUY 10/19/2021 1541-01-000 / / [id number] Description:Prostalac Hip St em Size 105mm Offset (Depuy) Ball Artic Wiliam Brn 32 Plus5 - [id number] Implanted:Qty: 1 on 04/28/2012 at [place] [facility] [place] Right: Hip JNJ : DEPUY ORTHOPAEDICS 10/19/2016 [id number] / / [id number] Rest Mod Prox Cone Body 23 +11 - [id number] Implanted:Qty: 1 on 04/14/2014 at [place] [facility] [place] Right: Hip VERONICA : ORTHOPAEDICS 10/19/2018 6276-1-123 / / [id number] Head Fem 28mm - [id number] Implanted:Qty: 1 on 04/14/2014 at [facility] Right: Hip VERONICA : ORTHOPAEDICS 08/19/2018 6570-0-228 / / [id number] Insert 28mm - [id number] Implanted:Qty: 1 on 04/14/2014 at [facility] Right: Hip VERONICA : ORTHOPAEDICS 02/16/2019 1236-2-848 / / [id number] Cable/Sle Beaded D/M 20 Vit - [id number] Implanted:Qty: 1 on 04/14/2014 at [facility] Right: Hip VERONICA : ORTHOPAEDICS 10/19/2017 6704-0-520 / / [id number] Cable/Sle Beaded D/M 20 Vit - [id number] Implanted:Qty: 1 on 04/14/2014 at [facility] Right: Hip VERONICA : ORTHOPAEDICS 10/19/2017 6704-0-520 / / [id number] Tritanium Revision Acetabular - [id number] Implanted:Qty: 1 on 04/14/2014 at [facility] Right: Hip VERONICA : ORTHOPAEDICS 05/19/2018 509-02-56E / / [id number] Screw Bone Osteolock 24 - [id number] Implanted:Qty: 1 on 04/14/2014 at [facility] Right: Hip VERONICA : ORTHOPAEDICS 02/16/2019 5260-5-024 / / [id number] Screw Bone Osteolock 35 - [id number] Implanted:Qty: 1 on 04/14/2014 at [facility] Right: Hip VERONICA : ORTHOPAEDICS 03/19/2017 5260-5-035 / / [id number] Liner 42mm - [id number] Implanted:Qty: 1 on 04/14/2014 at [facility] Right: Hip VERONICA : ORTHOPAEDICS 11/19/2018 626-00-42E / / [id number] Hip S Mod Conical Dis 59i155 - [id number] Implanted:Qty: 1 on 04/14/2014 at [facility] Right: Hip VERONICA : ORTHOPAEDICS 12/17/2018 6276-7-017 / / [id number] documented as of this encounter Visit Diagnoses [...] and were consensually agreed upon. Care Teams Seo Professional Relationship Specialty Start Date End Date Willie Epstein MD [address] [place] [place] [place] [address] PCP - General Family Medicine 11/22/16 documented as of this encounter
--- OUTSIDE RECORDS SUMMARY | 2025-02-24 07:32 | External Medical Summary | Summary of Care ---
Author Name Unknown Organization [facility] Address [address] [place] [address] Phone [phone] Care Team Providers Care Supervisor Refractory Products Name Role Phone Willie Pizarro MD Primary Care Provider + Reason for Visit * Reason Onset Date Comments Medication Refill 12/07/2024 Encounter Details Date Type Department Care Team (Late st Contact Info) Description 12/07/2024 Refill Family Practice [facility] [address] [facility] [place] [id number] Willie Pizarro MD [address] [place] [address] Spondylolisthesis of lumbosacral region*; Opiate dependence, [...] 3 018 Active Blood Glucose Monitoring Suppl (Qriously ULTRA 2) w/Device KIT Use to check blood sugar 2 times a day; E11.9. 1 Kit 020 Active Glucose Blood (PlanGridUCH ULTRA BLUE) STRP Use to check blood [...] ([facility]) INJECT UNDER THE SKIN 0.75 MG ONCE [...] will 2017 consider transplant needs 20lb -HD [place] [facility]? T,R, S. Since January 2013. Spondylolisthesis [...] 08/25/200909/06 Overview (08/25/2009): Modified 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 Not on file Not [...] - 12/09/2024 3:04 PM EST Coco from [facility] called asking if they can have a call back at [phone] to talk about both the Buprenorphine 15 and oxyCODONE HCl [address] them on hold until shegets a call, please advise Thank you, Marie Spicercattle knocker Orchid Transplanter II [facility]) 12/09/2024, [...] If agreeable send script to [id number] [id number] [facility] Thank you, Eryn Cortez Crystal Inspector I [facility] ([facility]) 12/09/2024,1:56 [...] pain. * Telephone Encounter - Arlene Elise [facility] - 12/09/2024 8:02 AM [...] Please advise Thank you, Nakita Campoverde CPhT Orchid Transplanter III [facility] ([facility]) [address] [place] [address], [address] [address] * Telephone Encounter - Latisha [...] has none Thank you, Jo Ann Palacios Orchid Transplanter II [facility] ([facility]) (formerly Telepharmacy) 12/08/2024 1:31 PM * Telephone Encounter - Percy Redmond [facility] - 12/07/2024 12:59 PM ESTPending Prescriptions: Disp Refills oxyCODONE HCl 15 MG Oral Tablet (Roxicodon*90 Tab*0 Sig: Take 1 Tablet by mouth every 8 hours as needed for Pain, Severe. * Telephone Encounter - Percy Redmond [facility] - 12/07/2024 12:58 PM EST I have reviewed the patient’s controlled substance dispensing history in the Prescription Drug Monitoring Program in compliance with the [facility] regulations before prescribing a controlled substance. PDMP checked on 12/07/2024. Pending Prescriptions: Disp Refills oxyCODONE HCl 15 MG Oral Tablet (Roxicodo*90 Tab*0 Sig: Take 1 Tablet by mouth every 8 hours as needed for Pain, Severe. Last Visit: 11/30/2024 (in office), 01/21/2024 (telemedicine) Next Visit: 03/22/2025 Date medication was last filled: 11/08/24 Date medication is due for refill: 12/07/24 Pharmacy: [id number] Is this request for a controlled [...] approve if appropriate. Thank You, Percy Johnson [facility] Clinical Pharmacist [facility] ([facility]) 12/07/2024, 12:59 PM * Telephone Encounter - Bhupinder Vergara PHARM Tech - 12/07/2024 12:42 PM EST Did you pend patient's preferred pharmacy and medication before forwarding?yes Pharmacy: [id number] [id number] [facility] Pending Prescriptions: Disp Refills oxyCODONE HCl [...] 12/15/2024 11:00 AM EST Office Visit Pharmacy, [address] [place] [address] [facility] [address] [place] [address] 03/22/2025 1:40 PM EDT Office Visit Family Practice [facility] [address] [place] [address] Willie Pizarro MD [address] [place] [address] 05/23/2025 3:00 PM EDT Office Visit Dermatology [address] [place] [address] Coco Ivan PA-C [address] [place] [address] [place] [address] 06/13/2025 11:00 AM EDT Cardiac Studies Cardiac Studies, [facility] [address] [place] [address] 07/04/2025 4:00 PM EDT Office Visit Cardiology, [facility] [address] [place] [address] Bandar Avila MD [address] [place] [address] Scheduled Procedures Name Priority Associated Diagnoses Date/Ti [...] this encounter Medical Devices Implanted Type Area Livestock Haulier Device Identifier Shelf Expiration Date Model / Serial / Lot Cement Antibiotic Bone - [id number] Implanted:Qty: 3 [place] [facility] [place] VERONICA : ORTHOPAEDICS 11/19/2013 6197-9-010 / / [id number] Prostalac Acetabular Cup Implanted:Qty: 1 on 04/28/2012 [place] [facility] [place]: Hip SUBHA & SUBHA DEPUY 05/19/2017 1541-42-320 / / [id number] Prostalac Hip Stem Size 105mm Std Offset Implanted:Qty: 1 on 04/28/2012 at [facility] Right: Hip SUBHA & SUBHA DEPUY 10/19/2021 1541-01-000 / / [id number] Description:Prostalac Hip St em Size 105mm Offset (Depuy) Ball Artic Wiliam Brn 32 Plus5 - [id number] Implanted:Qty: 1 on 04/28/2012 [place] [facility] [place]: Hip JNJ : DEPUY ORTHOPAEDICS 10/19/2016 [id number] / / [id number] Rest Mod Prox Cone Body 23 +11 - [id number] Implanted:Qty: 1 on 04/14/2014 [place] [facility] [place]: Hip VERONICA : ORTHOPAEDICS 10/19/2018 6276-1-123 / / [id number] Head Fem 28mm - [id number] Implanted:Qty: 1 on 04/14/2014 [place] [facility] [place]: Hip VERONICA : ORTHOPAEDICS 08/19/2018 6570-0-228 / / [id number] Insert 28mm - [id number] Implanted:Qty: 1 on 04/14/2014 at [facility] Right: Hip VERONICA : ORTHOPAEDICS 02/16/2019 1236-2-848 / / [id number] Cable/Sle Beaded D/M 20 Vit - [id number] Implanted:Qty: 1 on 04/14/2014 [place] [facility] [place]: Hip VERONICA : ORTHOPAEDICS 10/19/2017 6704-0-520 / / [id number] Cable/Sle Beaded D/M 20 Vit - [id number] Implanted:Qty: 1 on 04/14/2014 at [facility] Right: Hip VERONICA : ORTHOPAEDICS 10/19/2017 6704-0-520 / / [id number] Tritanium Revision Acetabular - [id number] Implanted:Qty: 1 on 04/14/2014 [place] [facility] [place]: Hip VERONICA : ORTHOPAEDICS 05/19/2018 509-02-56E / / [id number] Screw Bone Osteolock 24 - [id number] Implanted:Qty: 1 on 04/14/2014 [place] [facility] [place]: Hip VERONICA : ORTHOPAEDICS 02/16/2019 5260-5-024 / / [id number] Screw Bone Osteolock 35 - [id number] Implanted:Qty: 1 on 04/14/2014 [place] [facility] [place]: Hip VERONICA : ORTHOPAEDICS 03/19/2017 5260-5-035 / / [id number] Liner 42mm - [id number] Implanted:Qty: 1 on 04/14/2014 [place] [facility] [place]: Hip VERONICA : ORTHOPAEDICS 11/19/2018 626-00-42E / / [id number] Hip S Mod Conical Dis 30g008 - [id number] Implanted:Qty: 1 on 04/14/2014 [place] [facility] [place]: Hip VERONICA : ORTHOPAEDICS 12/17/2018 6276-7-017 / / [id number] documented as of this encounter Visit Diagnoses [...] Date Willie Pizarro MD [address] [place] [address] PCP - General Family Medicine 11/22/16 documented as of this encounter
--- OUTSIDE RECORDS SUMMARY | 2025-02-24 07:32 | External Medical Summary | Summary of Care ---
Author Name Unknown Organization [facility] Address [address] [place] [address] Phone [phone] Care Team Providers Care Windshield Technician Name Role Phone Willie Pizarro MD Primary Care Provider + Reason for Visit * Reason Onset Date Comments Medication Refill 12/07/2024 Encounter Details Date Type Department Care Team (Late st Contact Info) Description 12/07/2024 Refill Family Practice [facility] [address] [place] [place] [address] Willie Pizarro MD [address] [facility] [place] [address] Spondylolisthesis of lumbosacral region*; Opiate dependence, continuous [...] RENAL MULTIVITAMIN/ZINC PO TABS None Entered Active InSpheroTOUCH ULTRASOFT LANCETS MISCIndications:T ype 2 diabetes mellitus with hemoglobin A1c goal of less than 8.0% ([facility]) Use as directed 2 times a day. 1 Box Dosing Unit 11 017 Active cinacalcet (SENSIPAR) 30 MG Tablet Take 1 Tab by mouth daily with dinner. 90 Tab 3 018 Active Blood Glucose Monitoring Suppl ([employer] ULTRA 2) w/Device KIT Use to check blood sugar 2 times a day; E11.9. 1 Kit 020 Active Glucose Blood (InSpheroTOUCH ULTRA BLUE) STRP Use to check blood [...] 08/04/2019 Overview (03/04/2024): 03/12 EGD [facility]-normal esoph, gastritis. Small hiatal hernia. Gastric 10mm diverticula 01/09 DEXA +osteoporosis. NEED discuss. 11/10 colon +tubular adenomas. 04/09 mult compression fractures. 05/2018 many polyps Therapeutic opioid induced constipation 08/04/20 19 ESRD on dialysis 09/08/2016 Overview (02/26/2021): 03/05 HCP forms given-wants . NEEDS further Living will 2017 consider transplant needs 20lb -HD [place] [facility]? T,R, S. Since January 2013. Spondylolisthesis [...] (04/09/2021): Mult levels 04/09 CT [facility] + lumbar Respiratory symptoms 01/08/2020 021 Fever of unknown origin (FUO) 01/07/2020 02/26/2021 Respiratory infection 01/07/20202020 Cellulitis 06/28/2016 09/08/2016 Abnormal vaginal bleeding 02/12/2016 Cellulitis 02/07/2016 09/08/2016 UTI (urinary tract infection), bacterial 04/19/2014 05/02/2014 Hypotension 04/15/2014 05/02/2014 Compression of lumbar vertebra 02/03/2013 06/07/2021 Overview (04/09/2021): Mult levels noted 04/09 [facility] CT also thoracic CKD (chronic kidney [...] s/p B/L stents Sees Dr. 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 pharmacy in [place]. Prescriptions clarified with him. He does state [...] MD - 12/10/2024 2:[address] [facility] pharmacy---I sent corrected Butrans patch Rx--use weekly. We are transitioning her from oxycodone to Butrans. 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 I removed Dx code to clarify. * Telephone Encounter - Mckenzie Askew LPN - 12/10/2024 2:[address] [facility] called not [facility] as pt has never used [facility] Called [facility] - pharmacist there today is not 100% as to what the reasoning for the call 2 possible issues with Butrans - sig says for 1 dose & they cannot break boxes & diagnosis of opioid dependence - that would lean more toward suboxone * Telephone Encounter - Marie Spicer master esthetician - 12/09/2024 3:04 PM EST Coco from [facility] pharmacy called asking if they can have a call back at [phone] to talk about both the Buprenorphine 15 and oxyCODONE HCl [address] that [address] them on hold until shegets a call, please advise Thank you, Marie Spicer,[facility] Inventory Specialist II [facility] ([facility]) 12/09/2024, [...] today. If agreeable send script to [facility]/PHARMACY [id number] Thank you, Eryn Cortez Gluten Settling Tender I [facility] ([facility]) 12/09/2024,1:56 [...] pain. * Telephone Encounter - Arlene Elise [facility] - 12/09/2024 8:02 AM EST [...] Please advise Thank you, Nakita Campoverde CPhT Inventory Specialist III [facility] ([facility]) [address] [place] [address], [phone] * Telephone Encounter - Latisha De La [...] next Friday. I reviewed with Clifton Elise [facility] * Telephone Encounter - Jo Ann Palacios CPhT - 12/08/2024 1:31 PM EST Patient calling to check on status of refill request asking id med can be ordered today she has none Thank you, Jo Ann Palacios Inventory Specialist II [facility] ([facility]) (formerly Telepharmacy) 12/08/2024 1:31 PM * Telephone Encounter - Percy Redmond, [facility] - 12/07/2024 12:59 PM ESTPending Prescriptions: Disp Refills oxyCODONE HCl 15 MG Oral Tablet (Roxicodon*90 Tab*0 Sig: Take 1 Tablet by mouth every 8 hours as needed for Pain, Severe. * Telephone Encounter - Percy Redmond [facility] - 12/07/2024 12:58 PM EST I have reviewed the patient’s controlled substance dispensing history in the Prescription Drug Monitoring Program in compliance with the [facility] regulations before prescribing a controlled substance. PDMP checked on 12/07/2024. Pending Prescriptions: Disp Refills oxyCODONE HCl 15 MG Oral Tablet (Roxicodo*90 Tab*0 Sig: Take 1 Tablet by mouth every 8 hours as needed for Pain, Severe. Last Visit: 11/30/2024 (in office), 01/21/2024 (telemedicine) Next Visit: 03/22/2025 Date medication was last filled: 11/08/24 Date medication is due for refill: 12/07/24 Pharmacy: [facility]/PHARMACY [id number] Is this request for a controlled [...] approve if appropriate. Thank You, Percy Johnson [facility] Clinical Pharmacist [facility] ([facility]) 12/07/2024, 12:59 PM * Telephone Encounter - Bhupinder Vergara master esthetician - 12/07/2024 12:42 PM EST Did you pend patient's preferred pharmacy and medication before forwarding?yes Pharmacy: [facility]ARMACY [id number] Pending Prescriptions: Disp Refills oxyCODONE HCl [...] found in Results Review. Patient Phone Numbers [employer] [phone] Labs: Lab Results Component Value Date/Time CREAT [...] AM EST Office Visit Pharmacy, [facility] [address] [place] [address] [facility] [place] [address] [address] [place] [address] 03/22/2025 1:40 PM EDT Office Visit Family Practice [facility] [address] [place] [address] Willie Pizarro MD [address] [place] [address] 05/23/2025 3:00 PM EDT Office Visit Dermatology [address] [place] [address] Coco Ivan PA-C [address] [place] [address] [place] [address] 06/13/2025 11:00 AM EDT Cardiac Studies Cardiac Studies, [facility] [address] [place] [address] 07/04/2025 4:00 PM EDT Office Visit Cardiology, [facility] [address] [place] [address] Bandar Avila MD [address] [place] [address] Scheduled Procedures Name Priority Associated Diagnoses Date/Ti [...] this encounter Medical Devices Implanted Type Area Field Examiner Device Identifier Shelf Expiration Date Model / Serial / Lot Cement Antibiotic Bone - [id number] Implanted:Qty: 3 on 04/28/2012 at [place] [facility] Right: Hip VERONICA : ORTHOPAEDICS 11/19/2013 6197-9-010 / / [id number] Prostalac Acetabular Cup Implanted:Qty: 1 on 04/28/2012 at [place] [facility] Right: Hip SUBHA & SUBHA DEPUY 05/19/2017 1541-42-320 / / [id number] Prostalac Hip Stem Size 105mm Std Offset Implanted:Qty: 1 on 04/28/2012 at [place] [facility] Right: Hip SUBHA & SUBHA DEPUY 10/19/2021 1541-01-000 / / [id number] Description:Prostalac Hip St em Size 105mm Offset (Depuy) Ball Artic Wiliam Brn 32 Plus5 - [id number] Implanted:Qty: 1 on 04/28/2012 at [place] [facility] Right: Hip JNJ : DEPUY ORTHOPAEDICS 10/19/2016 [id number] / / [id number] Rest Mod Prox Cone Body 23 +11 - [id number] Implanted:Qty: 1 on 04/14/2014 at [facility] Right: Hip VERONICA : ORTHOPAEDICS 10/19/2018 6276-1-123 / / [id number] Head Fem 28mm - [id number] Implanted:Qty: 1 on 04/14/2014 at [place] [facility] Right: Hip VERONICA : ORTHOPAEDICS 08/19/2018 6570-0-228 / / [id number] Insert 28mm - [id number] Implanted:Qty: 1 on 04/14/2014 at [facility] Right: Hip VERONICA : ORTHOPAEDICS 02/16/2019 1236-2-848 / / [id number] Cable/Sle Beaded D/M 20 Vit - [id number] Implanted:Qty: 1 on 04/14/2014 at [facility] Right: Hip VERONICA : ORTHOPAEDICS 10/19/2017 6704-0-520 / / [id number] Cable/Sle Beaded D/M 20 Vit - [id number] Implanted:Qty: 1 on 04/14/2014 at [facility] Right: Hip VERONICA : ORTHOPAEDICS 10/19/2017 6704-0-520 / / [id number] Tritanium Revision Acetabular - [id number] Implanted:Qty: 1 on 04/14/2014 at [facility] Right: Hip VERONICA : ORTHOPAEDICS 05/19/2018 509-02-56E / / [id number] Screw Bone Osteolock 24 - [id number] Implanted:Qty: 1 on 04/14/2014 at [facility] Right: Hip VERONICA : ORTHOPAEDICS 02/16/2019 5260-5-024 / / [id number] Screw Bone Osteolock 35 - [id number] Implanted:Qty: 1 on 04/14/2014 at [facility] Right: Hip VERONICA : ORTHOPAEDICS 03/19/2017 5260-5-035 / / [id number] Liner 42mm - [id number] Implanted:Qty: 1 on 04/14/2014 at [facility] Right: Hip VERONICA : ORTHOPAEDICS 11/19/2018 626-00-42E / / [id number] Hip S Mod Conical Dis 83d241 - [id number] Implanted:Qty: 1 on 04/14/2014 at [facility] Right: Hip VERONICA : ORTHOPAEDICS 12/17/2018 6276-7-017 / / [id number] documented as of this encounter Visit Diagnoses [...] and were consensually agreed upon. Care Teams Windshield Technician Relationship Specialty Start Date End Date Willie Pizarro MD [address] [place] [address] PCP - General Family Medicine 11/22/16 documented as of this encounter
--- OUTSIDE RECORDS SUMMARY | 2025-02-24 07:33 | External Medical Summary | Summary of Care ---
Author Name Unknown Organization [facility] Address [address] [place] [address] Phone [phone] Care Team Providers Care Home Security Alarm Installer Name Role Phone Willie Epstein MD Primary Care Provider + Reason for Visit * Reason Onset Date Comments Advice 11/22/2024 Encounter Details Date Type Department Care Team (Late st Contact Info) Description 11/22/2024 Telephone Family Practice [facility] [address] [place] [address] Willie Epstein MD [address] [place] [address] Advice Allergies Active Allergy Reactions Criticality Noted Date Comments Cefazolin Unknown 11/15/2023 Other Reaction(s): CAN'T REMEMBER Methylprednisolone Other (Please comment) 07/28/2017 Side effects c/w med (sweating, heart racing etc) Nitrofurantoin Hives High 03/01/2024 Nitrofurantoin Monohyd Macro Hives 04/04/2014 Pantoprazole Unknown 11/15/2023 Other Reaction(s): CAN'T REMEMBER Sulfa Antibiotics Edema face/lips/tongue High 09/02/2008 documented as of this encounter (statuses as of 11/26/2024) Medications INSULIN SYRINGE-NEEDLE U-100 30G X 1/2" [...] 11/07/19 18 Active Blood Glucose Monitoring Suppl ([employer] ULTRA 2) w/Device KIT Use to check blood sugar 2 times a day; E11.9. 1 Kit 10/22/19 20 Active Glucose Blood (e(ye)BRAINTOUCH ULTRA BLUE) STRP Use to check blood [...] WEEK 6 mL 1 11/08/19 25 Active documented as of this encounter (statuses as of 11/26/2024) Active Problems Problem Noted Date Diagnosed Date Nonrheumatic aortic valve stenosis 09/20/2024 Nonrheumatic mitral valve regurgitation 09/20/20 PVD (peripheral vascular disease) 09/20/2024 Nonrheumatic mitral valve stenosis 09/20/2024 Opiate dependence, continuous 08/03/2024 SCC (squamous cell carcinoma), hand, right 01/20 Hx of nonmelanoma skin cancer 01/09/2024 Overview (01/09/2024): squamous cell carcinoma (R dorsal hand 3/24) Age-related osteoporosis wit hout current pathological fracture 12/19/2022 Overview (01/01/2024): 01/09 DEXA. 01/10 Rheum-- Osteoporosis treatment is contraindicated at this time with severe renal disease Psoriasis 10/09/2022 Hypertensive kidney disease with end-stage renal disease 12/01/2019 Well adult exam 08/04/2019 Overview (03/04/2024): 03/12 EGD [facility]-normal esoph, gastritis. Small hiatal hernia. Gastric 10mm diverticula 01/09 DEXA +osteoporosis. NEED discuss. 11/10 colon +tubular adenomas. 04/09 mult compression fractures. 05/2018 many polyps Therapeutic opioid induced constipation 08/04/20 19 ESRD on dialysis 09/08/2016 Overview (02/26/2021): 03/05 HCP forms given-wants . NEEDS further Living will 2017 consider transplant needs 20lb -HD [place] [facility]? T,R, S. Since January 2013. Spondylolisthesis [...] as of this encounter (statuses as of 11/26/2024) Resolved Problems Problem Noted Date Diagnosed Date Resolved Date Thoracic compression fracture 04/09/2021 04/13/2021 Overview (04/09/2021): Mult levels 04/09 CT [facility] + lumbar Respiratory symptoms 01/08/2020 021 Fever of unknown origin (FUO) 01/07/2020 02/26/2021 Respiratory infection 01/07/20202020 Cellulitis 06/28/2016 09/08/2016 Abnormal vaginal bleeding 02/12/2016 Cellulitis 02/07/2016 09/08/2016 UTI (urinary tract infection), bacterial 04/19/2014 05/02/2014 Hypotension 04/15/2014 05/02/2014 Compression of lumbar vertebra 02/03/2013 06/07/2021 Overview (04/09/2021): Mult levels noted 04/[address] [facility] [address] also thoracic CKD (chronic [...] s/p B/L stents Sees Dr. 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 Order for NPO is faxed to Sabra LM that she is to do this test WITHOUT O2 on. * Telephone Encounter - Willie Epstein MD - 11/25/2024 10:18 AM EST Signed-please fdax to [facility] * Telephone Encounter - Arlene Garces LPN - 11/25/2024 8:59 AM EST See nocturnal spo2 order instead. * Telephone Encounter - Willie Epstein MD - 11/24/2024 5:05 PM EST Let pt know we'll do an overnight oxygen test OFF oxygen before sending d/c O2 order. Please fax to [facility] * Telephone Encounter - Alka Jaimes OSA - 11/22/2024 11:08 AM EST Patient called would like to leave message for Dr. Epstein. Patient was at hospital 3 weeks ago dueto rolando. Patient was prescribed oxygen at home. Patient state she no longer needs oxygen and needsa discontinued order from Dr. Epstein. Patient gets oxygen from [facility] documented in this encounter Plan of Treatment Upcoming Encounters Date Type Department Care Team (Late st Contact Info) Description 12/15/2024 11:00 AM EST [facility] [address] [facility] [place] [address] [facility] [address] [facility] [place] [address] 03/22/2025 1:40 PM EDT Office Visit Family Practice [facility] [address] [place] [address] Willie Epstein MD [address] [place] [address] 05/23/2025 3:00 PM EDT Office Visit Dermatology [address] [place] [address] Coco Ivan PA-C [address] [place] [address] [place] [address] 06/13/2025 11:00 AM EDT Cardiac Studies [facility], [facility] [place] [address] 07/04/2025 4:00 PM EDT Office Visit Cardiology, [facility] [address] [facility] [place] [address] Bandar Avila MD [address] [place] [address] Scheduled Orders Name Type Priority Associated Diagnoses [...] this encounter Medical Devices Implanted Type Area Clinical Systems Analyst Device Identifier Shelf Expiration Date Model / Serial / Lot Cement Antibiotic Bone - [id number] Implanted:Qty: 3 on 04/28/2012 at [place] [facility] Right: Hip VERONICA : ORTHOPAEDICS 11/19/2013 6197-9-010 / / [id number] Prostalac Acetabular Cup Implanted:Qty: 1 on 04/28/2012 at [facility] Right: Hip SUBHA & SUBHA DEPUY 05/19/2017 1541-42-320 / / [id number] Prostalac Hip Stem Size 105mm Std Offset Implanted:Qty: 1 on 04/28/2012 at [facility] Right: Hip SUBHA & SUBHA DEPUY 10/19/2021 1541-01-000 / / [id number] Description:Prostalac Hip St em Size 105mm Offset (Depuy) Ball Artic Wiliam Brn 32 Plus5 - [id number] Implanted:Qty: 1 on 04/28/2012 at [facility] Right: Hip JNJ : DEPUY ORTHOPAEDICS 10/19/2016 [id number] / / [id number] Rest Mod Prox Cone Body 23 +11 - [id number] Implanted:Qty: 1 on 04/14/2014 at [facility] Right: Hip VERONICA : ORTHOPAEDICS 10/19/2018 6276-1-123 / / [id number] Head Fem 28mm - [id number] Implanted:Qty: 1 on 04/14/2014 at [facility] Right: Hip VERONICA : ORTHOPAEDICS 08/19/2018 6570-0-228 / / [id number] Insert 28mm - [id number] Implanted:Qty: 1 on 04/14/2014 at [facility] Right: Hip VERONICA : ORTHOPAEDICS 02/16/2019 1236-2-848 / / [id number] Cable/Sle Beaded D/M 20 Vit - [id number] Implanted:Qty: 1 on 04/14/2014 at [place] [facility] Right: Hip VERONICA : ORTHOPAEDICS 10/19/2017 6704-0-520 / / [id number] Cable/Sle Beaded D/M 20 Vit - [id number] Implanted:Qty: 1 on 04/14/2014 at [facility] Right: Hip VERONICA : ORTHOPAEDICS 10/19/2017 6704-0-520 / / [id number] Tritanium Revision Acetabular - [id number] Implanted:Qty: 1 on 04/14/2014 at [facility] Right: Hip VERONICA : ORTHOPAEDICS 05/19/2018 509-02-56E / / [id number] Screw Bone Osteolock 24 - [id number] Implanted:Qty: 1 on 04/14/2014 at [facility] Right: Hip VERONICA : ORTHOPAEDICS 02/16/2019 5260-5-024 / / [id number] Screw Bone Osteolock 35 - [id number] Implanted:Qty: 1 on 04/14/2014 at [place] [facility] Right: Hip VERONICA : ORTHOPAEDICS 03/19/2017 5260-5-035 / / [id number] Liner 42mm - [id number] Implanted:Qty: 1 on 04/14/2014 at [place] [facility] Right: Hip VERONICA : ORTHOPAEDICS 11/19/2018 626-00-42E / / [id number] Hip S Mod Conical Dis 29g517 - [id number] Implanted:Qty: 1 on 04/14/2014 at [place] [facility] Right: Hip VERONICA : ORTHOPAEDICS 12/17/2018 6276-7-017 / / [id number] documented as of this encounter Visit Diagnoses [...] were consensually agreed upon. Care Teams Home Security Alarm Installer Relationship Specialty Start Date End Date Willie Epstein MD [address] [place] [place] [address] PCP - General Family Medicine 11/22/16 documented as of this encounter
--- OUTSIDE RECORDS SUMMARY | 2025-02-24 07:33 | External Medical Summary | Summary of Care ---
Author Name Unknown Organization [facility] Address [address] [place] [address] Phone [phone] Care Team Providers Care Director Workforce Management Name Role Phone Willie Epstein MD Primary Care Provider + Reason for Visit * Reason Onset Date Comments Hospital Follow-Up [facility] 10/30-10/20 6: Acute hypoxemic respiratory failure, covid-19 Hospital Follow-Up 11/10/2024 Encounter Details Date Type Department Care Team (Late st Contact Info) Description 11/10/2024 3:40 PM EST [facility] [place] [address] Willie Epstein MD [address] [place] [address] Hospital discharge follow-up*; Type 2 diabetes mellitus with ESRD (end-stage renal disease) ([facility]); Opiate dependence, continuous ([facility]); COVID-19 virus infection; Acute hypoxemic respiratory failure ([facility]); Type 2 diabetes mellitus with hemoglobin A1c goal of less than 8.0% ([facility]); ESRD on dialysis ([facility]) Allergies Active Allergy Reactions Criticality Noted Date Comments Cefazolin Unknown 11/15/2023 Other Reaction(s): CAN'T REMEMBER Methylprednisolone Other (Please comment) 07/28/2017 Side effects c/w med (sweating, heart racing etc) Nitrofurantoin Hives High 03/01/2024 Nitrofurantoin Monohyd Macro Hives 04/04/2014 Pantoprazole Unknown 11/15/2023 Other Reaction(s): CAN'T REMEMBER Sulfa Antibiotics Edema face/lips/tongue High 09/02/2008 documented as of this encounter (statuses as of 11/10/2024) Medications INSULIN SYRINGE-NEEDLE U-100 30G X 1/2" 1 ML MISCIndications:DM type 2, goal A1c below 7 Use as directed 1 Box of 100 11 10/04/20 08 Active RENAL MULTIVITAMIN/ZINC PO TABS None Entered Active ONETOUCH ULTRASOFT LANCETS MISCIndications:Ty pe 2 diabetes mellitus with hemoglobin A1c goal of less than 8.0% ([facility]) Use as directed 2 times a day. 1 Box Dosing Unit 11 01/17/20 17 Active cinacalcet (SENSIPAR) 30 MG Tablet Take 1 Tab by mouth daily with dinner. 90 Tab 3 11/07/19 18 Active Blood Glucose Monitoring Suppl (CorrelecUCH ULTRA 2) w/Device KIT Use to check blood sugar 2 times a day; E11.9. 1 Kit 10/22/19 20 Active Glucose Blood (MatchmoveTOUCH ULTRA BLUE) STRP Use to check blood [...] hemoglobin A1c goal of less than 8.0% ([facility]) INJECT UNDER THE SKIN 0.75 MG ONCE A WEEK 6 mL 1 11/08/19 25 Active documented as of this encounter (statuses as of 11/10/2024) Active Problems Problem Noted Date Diagnosed Date [...] will 2017 [facility] needs [facility] T,R[facility] S[facility] Since January 2013. Spondylolisthesis of [...] as of this encounter (statuses as of 11/10/2024) Resolved Problems Problem Noted Date Diagnosed Date [...] s/p B/L stents Sees Dr. 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 Not on file Not on file Not on file documented as of this encounter Last Filed Vital Signs Vital Sign Reading Time Taken Comments Blood Pressure 104/60 11/10/2024 3:44 PM EST Pulse 92 11/10/2024 3:44 PM EST Temperature 36.2 °C (97.2 °F) 11/10/2024 3:44 PM ES T Respiratory Rate 12 11/10/2024 3:44 PM EST Oxygen Saturation 93% 11/10/2024 3:44 PM EST Inhaled Oxygen Concentration - - [...] Moriah Harris, RN * Do you have serious difficulty [...] Progress Notes * Willie Epstein MD - 11/10/2024 3:59 PM EST Images from the original note were not included. Subjective Mkea Hess is a 69 year old female presenting for Hospital Follow-Up ([facility] 10/30-11/04: Acute hypoxemic respiratory failure, covid-19) and Hospital Follow-Up Here w/. History of Present Illness The patient, with a history of long-term dialysis, recently recovered from a hospitalization due toCOVID-19. O2 was 87% at dialysis, was sent to ER. She reports feeling weak and has been using oxygen therapy more frequently. The patient's oxygen saturation was 93% at the time of the visit, and shereports feeling good overall. She was prescribed dexamethasone during her hospital stay and is currently taking Zofran for nausea. Didn't require intubation. Was discharge on Home O2 for nighttime --hasn't always been using. The patient has been experiencing discomfort due to the use of oxygen therapy, particularly at night, and reports intermittent use due to discomfort. She expresses a dislike for the therapy but acknowledges its necessity. The patient also has a history of pain management with oxycodone. She recently experienced a periodof withdrawal due to a mix-up with her prescription refill. Hasn't picked up Butrans patch yet--plans to. Surgery with Dr Garrison for AVF right UE went well. Using it at HD. Objective Blood pressure 104/60, pulse 92, temperature 97.2 °F (36.2 °C), temperature source Tympanic, resp. rate 12, last menstrual period 11/16/2000, SpO2 93%. Physical Exam Gen NAD in wheelchair VITALS: SaO2- 93% CHEST: Lung sounds clear. CARDIOVASCULAR: Heart sounds regular. SKIN: Fistula site healed well RUE Thrill present at fistula site. Results LABS Reviewed. 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 Currently off oxygen at rest but requires it with exertion and at night. -Continue current management with oxygen as needed. -Plan for overnight oximetry after end of the month to assess need for long-term oxygen therapy. Chronic Pain Current use of oxycodone with plans to transition to Butrans patch for more consistent pain control. -Start Butrans patch and continue oxycodone three times a day for one week, then stop oxycodone. -Contact office if withdrawal symptoms occur. -f/u MTM Arteriovenous Fistula Recently accessed for dialysis and appears to be healing well. -Continue current dialysis schedule. General Health Maintenance Recent recovery from COVID-19. -Plan for COVID-19 vaccination in January 2025 when natural immunity is expected to wane. Hospital discharge follow-up (Primary) - DISCH MED RECON CUR MED LIS Type 2 diabetes mellitus with ESRD (end-stage renal disease) (HCC) Opiate dependence, continuous (HCC) COVID-19 virus infection Acute hypoxemic respiratory failure (HCC) - DURABLE MEDICAL EQUIPMENT Type 2 diabetes mellitus with hemoglobin A1c goal of less than 8.0% (HCC) ESRD on dialysis ([facility]) Wrap-Up Time: I spent a total of 30-39 minutes (exact time 32 mins) on the date of service in [...] Nursing Notes * Shanelle Carlson LPN - 11/10/2024 3:44 PM EST The patient has been properly identified by confirmation of name and date of . Chief Complaint Patient presents with Hospital Follow-Up [facility] 10/30-11/04: Acute hypoxemic respiratory failure, covid-19 documented in this encounter Plan of Treatment Upcoming Encounters Date Type Department Care Team (Late st Contact Info) Description 12/15/2024 11:00 AM EST Office Visit Pharmacy, [facility] [address] [address] [facility] [address] [place] [address] 03/22/2025 1:40 PM EDT Office Visit Family Practice [facility] [address] [place] [address] Willie Epstein MD [address] [place] [address] 05/23/2025 3:00 PM EDT Office Visit Dermatology [address] [place] [address] Coco Ivan PA-C [address] [place] [address] [place] [address] 06/13/2025 11:00 AM EDT Cardiac Studies Cardiac Studies, [facility] [address] [place] [address] 07/04/2025 4:00 PM EDT Office Visit Cardiology, [facility] [address] [place] [address] Bandar Avila MD [address] [place] [address] Scheduled Procedures Name Priority Associated Diagnoses Date/Ti [...] this encounter Medical Devices Implanted Type Area Comb Winder Device Identifier Shelf Expiration Date Model / Serial / Lot Cement Antibiotic Bone - [id number] [place] 3 [place] [facility] [place] VERONICA : ORTHOPAEDICS 11/19/2013 6197-9-010 / / [id number] Prostalac Acetabular Cup Implanted:Qty: 1 on 04/28/2012 [place] [facility] [place]: Hip SUBHA & SUBHA DEPUY 05/19/2017 1541-42-320 / / [id number] Prostalac Hip Stem Size 105mm Std Offset Implanted:Qty: 1 on 04/28/2012 at [facility] Right: Hip SUBHA & SUBHA DEPUY 10/19/2021 1541-01-000 / / [id number] Description:Prostalac Hip St em Size 105mm Offset (Depuy) Ball Artic Wiliam Brn 32 Plus5 - [id number] Implanted:Qty: 1 on 04/28/2012 [place] [facility] [place]: Hip JNJ : DEPUY ORTHOPAEDICS 10/19/2016 [id number] / / [id number] Rest Mod Prox Cone Body 23 +11 - [id number] Implanted:Qty: 1 on 04/14/2014 [place] [facility]: Hip VERONICA : ORTHOPAEDICS 10/19/2018 6276-1-123 / / [id number] Head Fem 28mm - [id number] Implanted:Qty: 1 on 04/14/2014 [place] [facility] [place]: Hip VERONICA : ORTHOPAEDICS 08/19/2018 6570-0-228 / / [id number] Insert 28mm - [id number] Implanted:Qty: 1 on 04/14/2014 [place] [facility]: Hip VERONICA : ORTHOPAEDICS 02/16/2019 1236-2-848 / / [id number] Cable/Sle Beaded D/M 20 Vit - [id number] Implanted:Qty: 1 on 04/14/2014 [place] [facility] Hip VERONICA : ORTHOPAEDICS 10/19/2017 6704-0-520 / / [id number] Cable/Sle Beaded D/M 20 Vit - [id number] Implanted:Qty: 1 on 04/14/2014 [place] [facility] [place]: Hip VERONICA : ORTHOPAEDICS 10/19/2017 6704-0-520 / / [id number] Tritanium Revision Acetabular - [id number] Implanted:Qty: 1 on 04/14/2014 at [facility] Right: Hip VERONICA : ORTHOPAEDICS 05/19/2018 509-02-56E / / [id number] Screw Bone Osteolock 24 - [id number] Implanted:Qty: 1 on 04/14/2014 at [facility] Right: Hip VERONICA : ORTHOPAEDICS 02/16/2019 5260-5-024 / / [id number] Screw Bone Osteolock 35 - [id number] Implanted:Qty: 1 on 04/14/2014 at [facility] Right: Hip VERONICA : ORTHOPAEDICS 03/19/2017 5260-5-035 / / [id number] Liner 42mm - [id number] Implanted:Qty: 1 on 04/14/2014 at [facility] Right: Hip VERONICA : ORTHOPAEDICS 11/19/2018 626-00-42E / / [id number] Hip S Mod Conical Dis 54m776 - [id number] Implanted:Qty: 1 on 04/14/2014 at [facility] Right: Hip VERONICA : ORTHOPAEDICS 12/17/2018 6276-7-017 / / [id number] documented as of this encounter Visit Diagnoses Diagnosis Hospital discharge follow-up- Primary Other follow-up examination Type 2 diabetes mellitus with ESRD (end-stage renal disease) (HCC) Type II or unspecified type diabetes mellitus with renal manifestations, not stated as uncontrolled Opiate dependence, continuous (HCC) Opioid type dependence, continuous COVID-19 virus infection Acute hypoxemic respiratory failure (HCC) Type 2 diabetes mellitus with hemoglobin A1c [...] and were consensually agreed upon. Care Teams Director Workforce Management Relationship Specialty Start Date End Date Willie Epstein MD [address] [facility] [place] [address] PCP - General Family Medicine 11/22/16 documented as of this encounter
--- OUTSIDE RECORDS SUMMARY | 2025-02-24 07:33 | External Medical Summary | Summary of Care ---
Author Name Unknown Organization [facility] Address [address] [place] [address] Phone [phone] Care Team Providers Care Silverer Name Role Phone Willie Epstein MD Primary Care Provider + Reason for Visit * Reason Onset Date Comments Advice 08/13/2024 Encounter Details Date Type Department Care Team (Late st Contact Info) Description 08/13/2024 Telephone Family Practice [facility] [address] [place] [address] Willie Epstein MD [address] [place] [place] [address] Advice Allergies Active Allergy Reactions Criticality Noted Date Comments Cefazolin Unknown 11/15/2023 Other Reaction(s): CAN'T REMEMBER Methylprednisolone Other (Please comment) 07/28/2017 Side effects c/w med (sweating, heart racing etc) Nitrofurantoin Hives High 03/01/2024 Nitrofurantoin Monohyd Macro Hives 04/04/2014 Pantoprazole Unknown 11/15/2023 Other Reaction(s): CAN'T REMEMBER Sulfa Antibiotics Edema face/lips/tongue High 09/02/2008 documented as of this encounter (statuses as of 11/12/2024) Medications INSULIN SYRINGE-NEEDLE U-100 30G X 1/2" [...] 11/07/19 18 Active Blood Glucose Monitoring Suppl (myeasydocs ULTRA 2) w/Device KIT Use to check blood sugar 2 times a day; E11.9. 1 Kit 10/22/19 20 Active Glucose Blood (OneBuckResumeTOUCH ULTRA BLUE) STRP Use to check blood [...] DAY 90 Tablet 1 07/31/20 24 Active Lisinopril 10 MG Oral Tablet (Prinivil) Take 1 Tablet (10 mg) by mouth in the morning. 30 Tablet 1 09/24/20 22 2023 Discontinued(M edication List Clean Up) Simvastatin 20 MG Oral Tablet (Zocor)Indicati ons:Dyslipidemi a, goal LDL below 70 TAKE ONE TABLET BY MOUTH ONCE A DAY AT BEDTIME 90 Tablet 1 04/30/20 24 2024 Discontinued Trulicity 0.75 MG/0.5ML Subcutaneous Solution Pen-injector (Dulaglutide)In dications:Type 2 diabetes mellitus with hemoglobin A1c goal of less than 8.0% ([facility]) INJECT UNDER THE SKIN 0.75 MG ONCE A WEEK . 2 mL 2 07/26/20 24 2024 Discontinued documented as of this encounter (statuses as of 11/12/2024) Active Problems Problem Noted Date Diagnosed Date [...] exam 08/04/2019 Overview (03/04/2024): 03/[address] [facility]-normal esoph, gastritis. Small hiatal hernia. Gastric 10mm diverticula 01/09 DEXA +osteoporosis. NEED discuss. 11/10 colon +tubular adenomas. 04/09 mult compression fractures. 05/2018 many polyps Therapeutic opioid induced constipation 08/04/20 19 ESRD on dialysis 09/08/2016 Overview (02/26/2021): 03/05 HCP forms given-wants . NEEDS further Living will 2017 consider transplant needs 20lb -HD [facility]? T,R, S. Since January 2013. Spondylolisthesis [...] as of this encounter (statuses as of 11/12/2024) Resolved Problems Problem Noted Date Diagnosed Date [...] Overview (04/09/2021): Mult levels noted 04/[address] [facility] CT also thoracic CKD (chronic kidney [...] s/p B/L stents Sees Dr. 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 Answer Date of Assessment Author No 01/07/2020 6:50 PM Moriah Harris, RN * Are you blind or do [...] encounter Miscellaneous Notes * Telephone Encounter - Maxwell Shook OSA - 08/13/2024 10:38 AM EDT Please have PCP review her lab results and call her back. Thank you. documented in this encounter Plan of Treatment Upcoming Encounters Date Type Department Care Team (Late st Contact Info) Description 12/15/2024 11:00 AM EST Office Visit Pharmacy, [facility] [address] [address] [facility] [address] [place] [address] 03/22/2025 1:40 PM EDT Office Visit Family Practice [facility] [address] [place] [address] Willie Epstein MD [address] [place] [address] 05/23/2025 3:00 PM EDT Office Visit Dermatology [address] [place] [address] Coco Ivan PA-C [address] [place] [address] [place] [address] 06/13/2025 11:00 AM EDT Cardiac Studies Cardiac Studies, [facility] [address] [facility] [place] [address] 07/04/2025 4:00 PM EDT Office Visit Cardiology, [facility] [address] [place] [address] Bandar Avila MD [address] [place] [address] Scheduled Procedures Name Priority Associated Diagnoses Date/Ti [...] this encounter Medical Devices Implanted Type Area Sales And Merchandising Representative Device Identifier Shelf Expiration Date Model / Serial / Lot Cement Antibiotic Bone - [id number] Implanted:Qty: 3 on 04/28/2012 [place] [facility] [place]: Hip VERONICA : ORTHOPAEDICS 11/19/2013 6197-9-010 / / [id number] Prostalac Acetabular Cup Implanted:Qty: 1 on 04/28/2012 [place] [facility] [place] Right: Hip SUBHA & SUBHA DEPUY 05/19/2017 1541-42-320 / / [id number] Prostalac Hip Stem Size 105mm Std Offset Implanted:Qty: 1 on 04/28/2012 [place] [facility] [place] Right: Hip SUBHA & SUBHA DEPUY 10/19/2021 1541-01-000 / / [id number] Description:Prostalac Hip St em Size 105mm Offset (Depuy) Ball Artic Wiliam Brn 32 Plus5 - [id number] Implanted:Qty: 1 on 04/28/2012 at [place] [facility] [place] Right: Hip JNJ : DEPUY ORTHOPAEDICS 10/19/2016 [id number] / / [id number] Rest Mod Prox Cone Body 23 +11 - [id number] Implanted:Qty: 1 on 04/14/2014 at [facility] Right: Hip VERONICA : ORTHOPAEDICS 10/19/2018 6276-1-123 / / [id number] Head Fem 28mm - [id number] Implanted:Qty: 1 on 04/14/2014 at [facility] Right: Hip VERONICA : ORTHOPAEDICS 08/19/2018 6570-0-228 / / [id number] Insert 28mm - [id number] Implanted:Qty: 1 on 04/14/2014 at [facility] Right: Hip VERONICA : ORTHOPAEDICS 02/16/2019 1236-2-848 / / [id number] Cable/Sle Beaded D/M 20 Vit - [id number] Implanted:Qty: 1 on 04/14/2014 at [facility] Right: Hip VERONICA : ORTHOPAEDICS 10/19/2017 6704-0-520 / / [id number] Cable/Sle Beaded D/M 20 Vit - [id number] Implanted:Qty: 1 on 04/14/2014 at [place] [facility] [place] Right: Hip VERONICA : ORTHOPAEDICS 10/19/2017 6704-0-520 / / [id number] Tritanium Revision Acetabular - [id number] Implanted:Qty: 1 on 04/14/2014 at [facility] Right: Hip VERONICA : ORTHOPAEDICS 05/19/2018 509-02-56E / / [id number] Screw Bone Osteolock 24 - [id number] Implanted:Qty: 1 on 04/14/2014 at [facility] Right: Hip VERONICA : ORTHOPAEDICS 02/16/2019 5260-5-024 / / [id number] Screw Bone Osteolock 35 - [id number] Implanted:Qty: 1 on 04/14/2014 at [facility] Right: Hip VERONICA : ORTHOPAEDICS 03/19/2017 5260-5-035 / / [id number] Liner 42mm - [id number] Implanted:Qty: 1 on 04/14/2014 at [place] [facility] [place] Right: Hip VERONICA : ORTHOPAEDICS 11/19/2018 626-00-42E / / [id number] Hip S Mod Conical Dis [id number] - [id number] Implanted:Qty: 1 on 04/14/2014 at [place] [facility] [place] Right: Hip VERONICA : ORTHOPAEDICS 12/17/2018 6276-7-017 / / [id number] documented as of this encounter Advance Directives [...] and were consensually agreed upon. Care Teams Silverer Relationship Specialty Start Date End Date Willie Epstein MD [address] [address] PCP - General Family Medicine 11/22/16 documented as of this encounter
--- OUTSIDE RECORDS SUMMARY | 2025-02-24 07:34 | External Medical Summary | Summary of Care ---
Author Name Unknown Organization [facility] Address [address] [place] [address] Phone [phone] Care Team Providers Care Shearer Screen Measurer And Trimmer Name Role Phone Willie Epstein MD Primary Care Provider + Reason for Visit * Reason Onset Date Comments Hospital Follow-Up 11/05/2024 [facility] ([facility]) Encounter Details Date Type Department Care Team ([facility] st Contact Info) Description 11/05/2024 Telephone [facility]ly [facility] [address] [place] [address] Ruby Palacios, AMANDA Hospital Follow-Up (YOSEF ([facility])) Allergies Active Allergy Reactions Criticality Noted Date Comments Cefazolin Unknown 11/15/2023 Other Reaction(s): CAN'T REMEMBER Methylprednisolone Other (Please comment) 07/28/2017 Side effects c/w med (sweating, heart racing etc) Nitrofurantoin Hives High 03/01/2024 Nitrofurantoin Monohyd Macro Hives 04/04/2014 Pantoprazole Unknown 11/15/2023 Other Reaction(s): CAN'T REMEMBER Sulfa Antibiotics Edema face/lips/tongue High 09/02/2008 documented as of this encounter (statuses as of 11/05/2024) Medications INSULIN SYRINGE-NEEDLE U-100 30G X 1/2" 1 ML MISCIndications:DM type 2, goal A1c below 7 Use as directed 1 Box of 100 11 10/04/20 08 Active RENAL MULTIVITAMIN/ZINC PO TABS None Entered Active ClarivoyTOUCH ULTRASOFT LANCETS MISCIndications:Ty pe 2 diabetes mellitus with hemoglobin A1c goal of less than 8.0% ([facility]) Use as directed 2 times a day. 1 Box Dosing Unit 11 01/17/20 17 Active cinacalcet (SENSIPAR) 30 MG Tablet Take 1 Tab by mouth daily with dinner. 90 Tab 3 11/07/19 18 Active Blood Glucose Monitoring Suppl ([employer] ULTRA 2) w/Device KIT Use to check blood sugar 2 times a day; E11.9. 1 Kit 10/22/19 20 Active Glucose Blood (ClarivoyTOUCH ULTRA BLUE) STRP Use to check blood [...] goal of less than 8.0% ([facility]) INJECT UNDER THE SKIN 0.75 [...] for Nausea or Vomiting. 11/04/19 25 Active documented as of this encounter (statuses as of 11/05/2024) Active Problems Problem Noted Date Diagnosed Date [...] adult exam 08/04/2019 Overview (03/04/2024): 03/12 EGD [facility]-normal esoph, gastritis. Small hiatal hernia. Gastric 10mm diverticula 01/09 DEXA +osteoporosis. NEED discuss. 11/10 colon +tubular adenomas. 04/09 mult compression fractures. 05/2018 many polyps Therapeutic opioid induced constipation 08/04/20 19 ESRD on dialysis 09/08/2016 Overview (02/26/2021): 03/05 HCP forms given-wants . NEEDS further Living will 2017 consider transplant needs 20lb -HD [facility]? T,R, S. Since January 2013. Spondylolisthesis [...] as of this encounter (statuses as of 11/05/2024) Resolved Problems Problem Noted Date Diagnosed Date Resolved Date Thoracic compression fracture 04/09/2021 04/13/2021 Overview (04/09/2021): Mult levels 04/09 CT [facility] + lumbar Respiratory symptoms 01/08/2020 021 Fever of unknown origin (FUO) 01/07/2020 02/26/2021 Respiratory infection 01/07/20202020 Cellulitis 06/28/2016 09/08/2016 Abnormal vaginal bleeding 02/12/2016 Cellulitis 02/07/2016 09/08/2016 UTI (urinary tract infection), bacterial 04/19/2014 05/02/2014 Hypotension 04/15/2014 05/02/2014 Compression of lumbar vertebra 02/03/2013 06/07/2021 Overview (04/09/2021): Mult levels noted 04/09 [facility] 08/25/200909/06 Overview (08/25/2009): Modified 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 oil heaterman current use of ant icoagulant therapy 04/19/2009 [...] s/p B/L stents Sees Dr. 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 Transitions of Care Note Reason for Referral:Recent Admission Phone visit for follow up: [facility]F Admitted to: [facility], Date: 10/30/2024 Discharged to: Home, Date: 11/04/2024 Diagnosis driving hospitalization: Acute Hypoxemic Respiratory Failure, COVID-19 Source/Contact: Patient SUBJECTIVE Consent: Verbal consent for review of hospital discharge: Yes REVIEW OF SYSTEMS Patient/Other Reports: Current patient/caregiver problems or concerns: No concerns at this time. Still weak, using a walker. Has O2 1/NC with pulse Ox 99% CV: Denies problems Pulmonary: Denies problems Chills/Sweats/Fever:Denies chills/sweats Denies fever Appetite:Poor appetite, eating smaller meals more often. No taste. Current diet: Carb consistent, Dialysis Renal Bowel: denies problems Bladder: denies problems Wound (If applicable): N/A Pain:Location- "All over" chronic for her Intensity- 6 (Scale 0-10) Sleep:Denies problems FUNCTIONAL STATUS: ADL'S: Needs Assistance With:N/A as pt is independent IADL'S: Needs Assistance With:N/A as pt is independent Cognitive and Mental Health: denies problems, alert and oriented x 3, and able to communicate, understand instructions, process information. MEDICATION RECONCILIATION Medications: Reviewed new medications. Plans to picking tech new meds today. Patient does not want to goover med list at this time, states she will bring to PCP appointment to reconcile ASSESSMENT Medication Risk Assessment: No risks identified Did patient fail outpatient treatment? No Discharge instructions available for review? Yes PLAN Symptom Monitoring Interventions:Member/caregiver education - signs and symptoms to contact PrimaryCare (DO NOT DELETE-Three florez symptoms patient is to report to PCP) 1. Chest Pain/SOB 2. Fever/chills 3. Any worsening symptoms Warehouse Team LeaderEndoscopy Rn of Care interventions/Action Plan: 5 - 7 day follow-up with PCP in place - Date: PCP appointment 11/10/2024 Educated on role of YOSEF completed with patient/caregiver. Educated patient/caregiver on patient right to have input on YOSEF plan of care. Verification of Home Health/DME if indicated: YES Walker, Home O2 from [employer] Identified Care Gaps: Yes Care Gaps closed this call: Appointment made or confirmed and Transition of Care follow-up communication Re-evaluation of Plan of Care and progress towards goals achievement: Patient education this visit: Verbal, Confirmed PCP appointment, addressed reasons to call sooner as above Plan to instructed to call Primary Care Provider with change in symptoms or as needed before next follow-up, discharge needs met, verbalizes understanding and agrees with plan. Ruby Palacios RN documented in this encounter Plan of Treatment Upcoming Encounters Date Type Department Care Team (Late st Contact Info) Description 11/10/2024 3:40 PM EST Office Visit [facility] [address] [address] Willie Epstein MD [address] [place] [address] 12/15/2024 11:00 AM EST Office Visit Pharmacy, [facility] [address] [address] [employer] [facility] [address] [address] 03/22/2025 1:40 PM EDT Office Visit [facility] [address] [address] Willie Epstein MD [address] [address] 05/23/2025 3:00 PM EDT Office Visit Dermatology [address] [place] [address] Coco Ivan PA-C [address] [place] [address] [place] [address] 06/13/2025 11:00 AM EDT Cardiac Studies Cardiac Studies, [facility] [address] [address] 07/04/2025 4:00 PM EDT Office Visit Cardiology, [facility] [address] [address] Bandar Avila MD [address] [address] Scheduled Procedures Name Priority Associated Diagnoses Date/Ti [...] this encounter Medical Devices Implanted Type Area Dining Car Conductor Device Identifier Shelf Expiration Date Model / Serial / Lot Cement Antibiotic Bone - [id number] [place] 3 [place] [facility] VERONICA : ORTHOPAEDICS 11/19/2013 6197-9-010 / / [id number] Prostalac Acetabular Cup Implanted:Qty: 1 on 04/28/2012 [place] [facility] Hip SUBHA & SUBHA DEPUY 05/19/2017 1541-42-320 / / [id number] Prostalac Hip Stem Size 105mm Std Offset Implanted:Qty: 1 on 04/28/2012 [place] [facility]: Hip SUBHA & SUBHA DEPUY 10/19/2021 1541-01-000 / / [id number] Description:Prostalac Hip St em Size 105mm Offset (Depuy) Ball Artic Wiliam Brn 32 Plus5 - [id number] Implanted:Qty: 1 on 04/28/2012 [place] [facility] [place]: Hip JNJ : DEPUY ORTHOPAEDICS 10/19/2016 [id number] / / [id number] Rest Mod Prox Cone Body 23 +11 - [id number] Implanted:Qty: 1 on 04/14/2014 [place] [facility] Hip VERONICA : ORTHOPAEDICS 10/19/2018 6276-1-123 / / [id number] Head Fem 28mm - [id number] Implanted:Qty: 1 on 04/14/2014 [place] [facility] Hip VERONICA : ORTHOPAEDICS 08/19/2018 6570-0-228 / / [id number] Insert 28mm - [id number] Implanted:Qty: 1 on 04/14/2014 [place] [facility] Hip VERONICA : ORTHOPAEDICS 02/16/2019 1236-2-848 / / [id number] Cable/Sle Beaded D/M 20 Vit - [id number] Implanted:Qty: 1 on 04/14/2014 [place] [facility] [place] Hip VERONICA : ORTHOPAEDICS 10/19/2017 6704-0-520 / / [id number] Cable/Sle Beaded D/M 20 Vit - [id number] Implanted:Qty: 1 on 04/14/2014 [place] [facility]: Hip VERONICA : ORTHOPAEDICS 10/19/2017 6704-0-520 / / [id number] Tritanium Revision Acetabular - [id number] Implanted:Qty: 1 on 04/14/2014 [place] [facility] Hip VERONICA : ORTHOPAEDICS 05/19/2018 509-02-56E / / [id number] Screw Bone Osteolock 24 - [id number] Implanted:Qty: 1 on 04/14/2014 [place] [facility]: Hip VERONICA : ORTHOPAEDICS 02/16/2019 5260-5-024 / / [id number] Screw Bone Osteolock 35 - [id number] Implanted:Qty: 1 on 04/14/2014 at [facility] Right: Hip VERONICA : ORTHOPAEDICS 03/19/2017 5260-5-035 / / [id number] Liner 42mm - [id number] Implanted:Qty: 1 on 04/14/2014 [place] [facility] [place]: Hip VERONICA : ORTHOPAEDICS 11/19/2018 626-00-42E / / [id number] Hip S Mod Conical Dis 50q784 - [id number] Implanted:Qty: 1 on 04/14/2014 [place] [facility]: Hip VERONICA : ORTHOPAEDICS 12/17/2018 6276-7-017 / / [id number] documented as of this encounter Advance Directives [...] and were consensually agreed upon. Care Teams Shearer Screen Measurer And Trimmer Relationship Specialty Start Date End Date Willie Epstein MD [address] [address] PCP - General Family Medicine 11/22/16 documented as of this encounter
--- OUTSIDE RECORDS SUMMARY | 2025-02-24 07:34 | External Medical Summary | Summary of Care ---
Author Name Unknown Organization [facility] Address [address] [place] [address] Phone [phone] Care Team Providers Care Wide Area Network Engineer Name Role Phone Willie Pizarro MD Primary Care Provider + Reason for Visit * Reason Comments eRx-Medication Refill Encounter Details Date Type Department Care Team (Late st Contact Info) Description 11/08/2024 Refill Family Practice [facility] [address] [place] [address] Willie Pizarro MD [address] [place] [address] Type 2 diabetes mellitus with hemoglobin A1c goal of less than 8.0% ([facility]) Allergies Active Allergy Reactions Criticality Noted Date Comments Cefazolin Unknown 11/15/2023 Other Reaction(s): CAN'T REMEMBER Methylprednisolone Other (Please comment) 07/28/2017 Side effects c/w med (sweating, heart racing etc) Nitrofurantoin Hives High 03/01/2024 Nitrofurantoin Monohyd Macro Hives 04/04/2014 Pantoprazole Unknown 11/15/2023 Other Reaction(s): CAN'T REMEMBER Sulfa Antibiotics Edema face/lips/tongue High 09/02/2008 documented as of this encounter (statuses as of 11/08/2024) Medications INSULIN SYRINGE-NEEDLE U-100 30G X 1/2" 1 ML MISCIndications:D M type 2, goal A1c below 7 Use as directed 1 Box of 100 11 008 Active RENAL MULTIVITAMIN/ZINC PO TABS None Entered Active ONETOUCH ULTRASOFT LANCETS MISCIndications:T ype 2 diabetes mellitus with hemoglobin A1c goal of less than 8.0% ([facility]) Use as directed 2 times a day. 1 Box Dosing Unit 11 017 Active cinacalcet (SENSIPAR) 30 MG Tablet Take 1 Tab by mouth daily with dinner. 90 Tab 3 018 Active Blood Glucose Monitoring Suppl ([employer] ULTRA 2) w/Device KIT Use to check blood sugar 2 times a day; E11.9. 1 Kit 020 Active Glucose Blood (VupenTOUCH ULTRA BLUE) STRP Use to check blood [...] RESOLVED, THEN WHEN FLARING 454 g Active Buprenorphine 10 MCG/HR Transdermal Patch Weekly (Butrans) Place 1 Patch over 7 days topically on the skin once a week. 4 Patch 3 Active Simvastatin 20 MG Oral Tablet (Zocor)Indication [...] as needed for Nausea or Vomiting. Active oxyCODONE HCl 15 MG Oral Tablet (Roxicodone) Take 1 Tablet by mouth every 8 hours as needed for Pain, Severe. 90 Tablet Active Trulicity 0.75 MG/0.5ML Subcutaneous Solution Auto-injector (Dulaglutide)Ruba cations:Type 2 diabetes mellitus with hemoglobin A1c goal of less than 8.0% ([facility]) INJECT UNDER THE SKIN 0.75 MG ONCE A WEEK 6 mL 1 025 Active Trulicity 0.75 MG/0.5ML Subcutaneous Solution Pen-injector (Dulaglutide)Ruba cations:Type 2 diabetes mellitus with hemoglobin A1c goal of less than 8.0% ([facility]) INJECT UNDER THE SKIN 0.75 MG ONCE A WEEK . 2 mL 2 024 2024 Discontinued Trulicity 0.75 MG/0.5ML Subcutaneous Solution Auto-injector (Dulaglutide)Ruba cations:Type 2 diabetes mellitus with hemoglobin A1c goal of less than 8.0% ([facility]) INJECT UNDER THE SKIN 0.75 MG ONCE A WEEK 6 mL 1 025 2024 Discontinued documented as of this encounter (statuses as of 11/08/2024) Active Problems Problem Noted Date Diagnosed Date [...] adult exam 08/04/2019 Overview (03/04/2024): 03/12 EGD [facility]-normal esoph, gastritis. Small hiatal hernia. Gastric 10mm diverticula 01/09 DEXA +osteoporosis. NEED discuss. 11/10 colon +tubular adenomas. 04/09 mult compression fractures. 05/2018 many polyps Therapeutic opioid induced constipation 08/04/20 19 ESRD on dialysis 09/08/2016 Overview (02/26/2021): 03/05 HCP forms given-wants . NEEDS further Living will 2017 consider transplant needs 20lb -HD [place] [facility]? T,R, S. Since January 2013. Spondylolisthesis of lumbosacral region 02/04/20 13 Overview (02/03/2013): L5-S1 level with grade 1 anterolisthesis of L4 on L5 and grade 1 retrolisthesis of L5 on S1 Anemia in ESRD (end-stage renal disease) 03/13/2 013 MEDICATION USE AGREEMENT 11/12/2012 Overview (11/16/2012): [...] as of this encounter (statuses as of 11/08/2024) Resolved Problems Problem Noted Date Diagnosed Date Resolved Date Thoracic compression fracture 04/09/2021 04/13/2021 Overview (04/09/2021): Mult levels 04/09 CT [facility] + lumbar Respiratory symptoms 01/08/2020 021 Fever of unknown origin (FUO) 01/07/2020 02/26/2021 Respiratory infection 01/07/20202020 Cellulitis 06/28/2016 09/08/2016 Abnormal vaginal bleeding 02/12/2016 Cellulitis 02/07/2016 09/08/2016 UTI (urinary tract infection), bacterial 04/19/2014 05/02/2014 Hypotension 04/15/2014 05/02/2014 Compression of lumbar vertebra 02/03/2013 06/07/2021 Overview (04/09/2021): Mult levels noted 04/[address] [facility] [address] also thoracic CKD (chronic [...] 08/25/200909/06 Overview (08/25/2009): Modified 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 group home current use of ant icoagulant therapy [...] s/p B/L stents Sees Dr. 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 Not on file [...] documented in this encounter Miscellaneous Notes * Addendum Note - Willie Grey [facility] - 11/08/2024 5:46 PM ESTAddended by: WILLIE GREY on: 11/08/2024 05:46 PM Modules accepted: Orders * Telephone Encounter - Willie Grey [facility] - 11/08/2024 5:45 PM EST Signed Prescriptions: Disp Refills Trulicity 0.75 MG/0.5ML Subcutaneous Solut*6 mL 1 Sig: INJECT UNDER THE SKIN 0.75 MG ONCE A WEEKAuthorizing Provider: WILLIE PIZARRO User: WILLIE GREY documented in this encounter Plan of Treatment Upcoming Encounters Date Type Department Care Team (Late st Contact Info) Description 11/10/2024 3:40 PM EST Office Visit Family Practice [facility] [address] [address] Willie Pizarro MD [address] [address] 12/15/2024 11:00 AM EST Office Visit Pharmacy, [facility] [address] [address] [facility] [address] [address] 03/22/2025 1:40 PM EDT Office Visit Family Practice [facility] [address] [address] Willie Pizarro MD [address] [place] [address] 05/23/2025 3:00 PM EDT Office Visit Dermatology [address] [place] [address] Coco Ivan PA-C [address] [place] [address] [place] [address] 06/13/2025 11:00 AM EDT Cardiac Studies Cardiac Studies, [facility] [address] [address] 07/04/2025 4:00 PM EDT Office Visit Cardiology, [facility] [address] [address] Bandar Avila MD [address] [place] [address] Scheduled Procedures Name Priority Associated Diagnoses Date/Ti [...] this encounter Medical Devices Implanted Type Area Turkey Boner Device Identifier Shelf Expiration Date Model / Serial / Lot Cement Antibiotic Bone - [id number] Implanted:Qty: 3 on 04/28/2012 at [place] [facility] Right: Hip VERONICA : ORTHOPAEDICS 11/19/2013 6197-9-010 / / [id number] Prostalac Acetabular Cup Implanted:Qty: 1 on 04/28/2012 at [facility] Right: Hip SUBHA & SUBHA DEPUY 05/19/2017 1541-42-320 / / [id number] Prostalac Hip Stem Size 105mm Std Offset Implanted:Qty: 1 on 04/28/2012 at [facility] Right: Hip SUBHA & SUBHA DEPUY 10/19/2021 1541-01-000 / / [id number] Description:Prostalac Hip St em Size 105mm Offset (Depuy) Ball Artic Wiliam Brn 32 Plus5 - [id number] Implanted:Qty: 1 on 04/28/2012 at [facility] Right: Hip JNJ : DEPUY ORTHOPAEDICS 10/19/2016 [id number] / / [id number] Rest Mod Prox Cone Body 23 +11 - [id number] Implanted:Qty: 1 on 04/14/2014 at [facility] Right: Hip VERONICA : ORTHOPAEDICS 10/19/2018 6276-1-123 / / [id number] Head Fem 28mm - [id number] Implanted:Qty: 1 on 04/14/2014 at [facility] Right: Hip VERONICA : ORTHOPAEDICS 08/19/2018 6570-0-228 / / [id number] Insert 28mm - [id number] Implanted:Qty: 1 on 04/14/2014 at [facility] Right: Hip VERONICA : ORTHOPAEDICS 02/16/2019 1236-2-848 / / [id number] Cable/Sle Beaded D/M 20 Vit - [id number] Implanted:Qty: 1 on 04/14/2014 at [facility] Right: Hip VERONICA : ORTHOPAEDICS 10/19/2017 6704-0-520 / / [id number] Cable/Sle Beaded D/M 20 Vit - [id number] Implanted:Qty: 1 on 04/14/2014 at [facility] Right: Hip VERONICA : ORTHOPAEDICS 10/19/2017 6704-0-520 / / [id number] Tritanium Revision Acetabular - [id number] Implanted:Qty: 1 on 04/14/2014 at [facility] Right: Hip VERONICA : ORTHOPAEDICS 05/19/2018 509-02-56E / / [id number] Screw Bone Osteolock 24 - [id number] Implanted:Qty: 1 on 04/14/2014 at [place] [facility] Right: Hip VERONICA : ORTHOPAEDICS 02/16/2019 5260-5-024 / / [id number] Screw Bone Osteolock 35 - [id number] Implanted:Qty: 1 on 04/14/2014 at [place] [facility] Right: Hip VERONICA : ORTHOPAEDICS 03/19/2017 5260-5-035 / / [id number] Liner 42mm - [id number] Implanted:Qty: 1 on 04/14/2014 at [place] [facility] Right: Hip VERONICA : ORTHOPAEDICS 11/19/2018 626-00-42E / / [id number] Hip S Mod Conical Dis 18l057 - [id number] Implanted:Qty: 1 on 04/14/2014 at [place] [facility] Right: Hip VERONICA : ORTHOPAEDICS 12/17/2018 6276-7-017 / / [id number] documented as of this encounter Visit Diagnoses Diagnosis Type 2 diabetes mellitus with hemoglobin A1c goal of less than 8.0% ([facility]) documented in this encounter Advance Directives * [...] and were consensually agreed upon. Care Teams Wide Area Network Engineer Relationship Specialty Start Date End Date Willie Pizarro MD [address] [address] PCP - General Family Medicine 11/22/16 documented as of this encounter
--- OUTSIDE RECORDS SUMMARY | 2025-02-24 07:34 | External Medical Summary | Summary of Care ---
Author Name Unknown Organization [facility] Address [address] [place] [address] Phone [phone] Care Team Providers Care Home Care Music Therapist Name Role Phone Willie Epstein MD Primary Care Provider + Reason for Visit * Reason Onset Date Comments Medication Question 11/08/2024 Encounter Details Date Type Department Care Team ([facility] st Contact Info) Description 11/08/2024 Telephone Centralized Clinical Pharmacy Services, Tashia Chowdhury [address] [address] [place] [address] [facility] [address] [id number] Medication Question Allergies Active Allergy Reactions Criticality Noted Date [...] RENAL MULTIVITAMIN/ZINC PO TABS None Entered Active Bit Stew SystemsTOUCH ULTRASOFT LANCETS MISCIndications:Ty pe 2 diabetes mellitus with hemoglobin A1c goal of less than 8.0% (HCC) Use as directed 2 times a day. 1 Box Dosing Unit 11 01/17/20 17 Active cinacalcet (SENSIPAR) 30 MG Tablet Take 1 Tab by mouth daily with dinner. 90 Tab 3 11/07/19 18 Active Blood Glucose Monitoring Suppl (Sky Level Enterprieses ULTRA 2) w/Device KIT Use to check blood sugar 2 times a day; E11.9. 1 Kit 10/22/19 20 Active Glucose Blood (LikeabilityUCH ULTRA BLUE) STRP Use to check blood [...] once a week. 4 Patch 3 10/22/19 Active Simvastatin 20 MG Oral Tablet [...] Pain, Severe. 90 Tablet 11/08/19 25 Active documented as of this [...] (03/04/2024): 03/12 EGD [facility]-normal esoph, gastritis. Small hiatal hernia. Gastric 10mm diverticula 01/09 DEXA +osteoporosis. NEED discuss. 11/10 colon +tubular adenomas. 04/09 mult compression fractures. 05/2018 many polyps Therapeutic opioid induced constipation 08/04/20 ESRD on dialysis 09/08/2016 Overview (02/26/2021): 03/05 HCP forms given-wants . NEEDS further Living will 2017 consider transplant needs 20lb -HD [facility]? T,R, S. Since January 2013. Spondylolisthesis [...] levels 04/09 CT [facility] + lumbar Respiratory symptoms 01/08/2020 021 Fever of unknown origin (FUO) 01/07/2020 02/26/2021 Respiratory infection 01/07/20202020 Cellulitis 06/28/2016 09/08/2016 Abnormal vaginal bleeding 02/12/2016 Cellulitis 02/07/2016 09/08/2016 UTI (urinary tract infection), bacterial 04/19/2014 05/02/2014 Hypotension 04/15/2014 05/02/2014 Compression of lumbar vertebra 02/03/2013 06/07/2021 Overview (04/09/2021): Mult levels noted 04/09 [facility] CT also thoracic CKD (chronic kidney disease), [...] 08/25/200909/06 Overview (08/25/2009): Modified 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 lobsterman current use of ant icoagulant therapy 04/19/2009 [...] s/p B/L stents Sees Dr. 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 Patient confirms that she was able to get her medication at this time. Arlene Elise, Pharm D, [facility] Clinical Pharmacist 11/08/2024, 3:21 PM * Telephone Encounter - Mary Orosco PHARM Tech - 11/08/2024 8:57 AM EST Caller's name: Meka Preferred call back number(OFFICE NUMBER FOR ): [phone] Reason for call: Patient has been without pain medication for 6 days, has been unable to sleep due to the amount of pain she is in. Was told the patches she was supposed to start on were at the pharmacy for citrus picker, however she receive no call or message from them. Would like to convert to patches eventually but says right now she needs something for her pain. Patient is wondering if Arlene riley could place order for Oxycodone to the [facility] if the have it. Would like medication ordered for citrus picker today. Mary Orosco Cardiology Associate Centralized Clinical Pharmacy Services [address] [place] [address] Dr. [address] [place] [address] [id number] 11/08/2024,8:57 AM documented in this encounter Plan of Treatment Upcoming Encounters Date Type Department Care Team (Late st Contact Info) Description 11/10/2024 3:40 PM EST Office Visit Family Practice [facility] [address] [place] [address] Willie Epstein MD [address] [place] [address] 12/15/2024 11:00 AM EST Office Visit Pharmacy, [facility] [address] [place] [address] Darshan [facility] [address] [place] [address] 03/22/2025 1:40 PM EDT Office Visit Family Practice [facility] [address] [place] [address] Willie Epstein MD [address] [place] [address] 05/23/2025 3:00 PM EDT Office Visit Dermatology [address] [place] [address] Coco Ivan PA-C [address] [place] [address] [place] [address] 06/13/2025 11:00 AM EDT Cardiac Studies Cardiac Studies, [facility] [address] [place] [address] 07/04/2025 4:00 PM EDT Office Visit Cardiology, [facility] [address] [place] [address] Bandar Avila MD [address] [place] [address] Scheduled Procedures Name Priority Associated Diagnoses Date/Ti [...] this encounter Medical Devices Implanted Type Area Corporate Bond Trader Device Identifier Shelf Expiration Date Model / Serial / Lot Cement Antibiotic Bone - [id number] Implanted:Qty: 3 on 04/28/2012 at [place] [facility] Right: Hip VERONICA : ORTHOPAEDICS 11/19/2013 6197-9-010 / / [id number] Prostalac Acetabular Cup Implanted:Qty: 1 on 04/28/2012 at [place] [facility] Right: Hip SUBHA & SUBHA DEPUY 05/19/2017 1541-42-320 / / [id number] Prostalac Hip Stem Size 105mm Std Offset Implanted:Qty: 1 on 04/28/2012 at [facility] Right: Hip SUBHA & SUBHA DEPUY 10/19/2021 1541-01-000 / / [id number] Description:Prostalac Hip St em Size 105mm Offset (Depuy) Ball Artic Wiliam Brn 32 Plus5 - [id number] Implanted:Qty: 1 on 04/28/2012 at [facility] Right: Hip JNJ : DEPUY ORTHOPAEDICS 10/19/2016 [id number] / / [id number] Rest Mod Prox Cone Body 23 +11 - [id number] Implanted:Qty: 1 on 04/14/2014 at [facility] Right: Hip VERONICA : ORTHOPAEDICS 10/19/2018 6276-1-123 / / [id number] Head Fem 28mm - [id number] Implanted:Qty: 1 on 04/14/2014 at [facility] Right: Hip VERONICA : ORTHOPAEDICS 08/19/2018 6570-0-228 / / [id number] Insert 28mm - [id number] Implanted:Qty: 1 on 04/14/2014 at [facility] Right: Hip VERONICA : ORTHOPAEDICS 02/16/2019 1236-2-848 / / [id number] Cable/Sle Beaded D/M 20 Vit - [id number] Implanted:Qty: 1 on 04/14/2014 at [facility] Right: Hip VERONICA : ORTHOPAEDICS 10/19/2017 6704-0-520 / / [id number] Cable/Sle Beaded D/M 20 Vit - [id number] Implanted:Qty: 1 on 04/14/2014 at [facility] Right: Hip VERONICA : ORTHOPAEDICS 10/19/2017 6704-0-520 / / [id number] Tritanium Revision Acetabular - [id number] Implanted:Qty: 1 on 04/14/2014 at [facility] Right: Hip VERONICA : ORTHOPAEDICS 05/19/2018 509-02-56E / / [id number] Screw Bone Osteolock 24 - [id number] Implanted:Qty: 1 on 04/14/2014 at [facility] Right: Hip VERONICA : ORTHOPAEDICS 02/16/2019 5260-5-024 / / [id number] Screw Bone Osteolock 35 - [id number] Implanted:Qty: 1 on 04/14/2014 at [place] [facility] Right: Hip VERONICA : ORTHOPAEDICS 03/19/2017 5260-5-035 / / [id number] Liner 42mm - [id number] Implanted:Qty: 1 on 04/14/2014 at [place] [facility] Right: Hip VERONICA : ORTHOPAEDICS 11/19/2018 626-00-42E / / [id number] Hip S Mod Conical Dis 26y165 - [id number] Implanted:Qty: 1 on 04/14/2014 at [place] [facility] Right: Hip VERONICA : ORTHOPAEDICS 12/17/2018 6276-7-017 / / [id number] documented as of this encounter Advance Directives [...] were consensually agreed upon. Care Teams Home Care Music Therapist Relationship Specialty Start Date End Date Willie Epstein MD [address] [place] [address] PCP - General Family Medicine 11/22/16 documented as of this encounter
--- OUTSIDE RECORDS SUMMARY | 2025-02-24 07:34 | External Medical Summary | Summary of Care ---
Author Name Unknown Organization [facility] Address [address] [place] [address] Phone [phone] Care Team Providers Care Grain Oilseed Or Pasture Farm Worker Name Role Phone Willie Pizarro MD Primary Care Provider + Reason for Visit * Reason Comments eRx-Medication Refill Encounter Details Date Type Department Care Team (Late st Contact Info) Description 11/08/2024 Refill [address] [facility] [address] [place] [address] Willie Pizarro MD [address] [place] [address] Type 2 diabetes mellitus with hemoglobin A1c goal of less than 8.0% ([facility]) Allergies Active Allergy Reactions Criticality Noted Date [...] 3 018 Active Blood Glucose Monitoring Suppl (Encapson ULTRA 2) w/Device KIT Use to check blood sugar 2 times a day; E11.9. 1 Kit 020 Active Glucose Blood (KeniuTOUCH ULTRA BLUE) STRP Use to check blood [...] 08/04/2019 Overview (03/04/2024): 03/[address] [facility]-normal esoph, gastritis. Small hiatal hernia. Gastric 10mm diverticula 01/09 DEXA +osteoporosis. NEED discuss. 11/10 colon +tubular adenomas. 04/09 mult compression fractures. 05/2018 many polyps Therapeutic opioid induced constipation 08/04/20 19 ESRD on dialysis 09/08/2016 Overview (02/26/2021): 03/05 HCP forms given-wants . NEEDS further Living will 2017 consider transplant needs 20lb -HD [facility]? T,R, S. Since January 2013. Spondylolisthesis [...] Overview (04/09/2021): Mult levels 04/[address] [facility] + lumbar Respiratory symptoms 01/08/2020 021 Fever of unknown origin (FUO) 01/07/2020 02/26/2021 Respiratory infection 01/07/20202020 Cellulitis 06/28/2016 09/08/2016 Abnormal vaginal bleeding 02/12/2016 Cellulitis 02/07/2016 09/08/2016 UTI (urinary tract infection), bacterial 04/19/2014 05/02/2014 Hypotension 04/15/2014 05/02/2014 Compression of lumbar vertebra 02/03/2013 06/07/2021 Overview (04/09/2021): Mult levels noted 04/[address] [facility] [address] also thoracic CKD (chronic kidney [...] s/p B/L stents Sees Dr. 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 [...] Notes * Addendum Note - Willie Grey [facility] - 11/08/2024 5:46 PM ESTAddended by: WILLIE GREY on: 11/08/2024 05:46 PM Modules accepted: Orders * Telephone Encounter - Willie Grey [facility] - 11/08/2024 5:45 PM EST Signed Prescriptions: Disp Refills Trulicity 0.75 MG/0.5ML Subcutaneous Solut*6 mL 1 Sig: INJECT UNDER THE SKIN 0.75 MG ONCE A WEEKAuthorizing Provider: WILLIE PIZARRO User: WILLIE GREY documented in this encounter Plan of Treatment Upcoming Encounters Date Type Department Care Team (Late st Contact Info) Description 11/10/2024 3:40 PM EST Office Visit Family Practice [facility] [address] [place] [address] Willie Pizarro MD [address] [place] [address] 12/15/2024 11:00 AM EST Office Visit Pharmacy, [facility] [address] [place] [address] Darshan [facility] [address] [place] [address] 03/22/2025 1:40 PM EDT Office Visit Family Practice [facility] [address] [place] [address] Willie Pizarro MD [address] [place] [address] 05/23/2025 3:00 PM EDT Office Visit Dermatology [address] [place] [address] Coco Ivan PA-C [address] [place] [address] [place] [address] 06/13/2025 11:00 AM EDT Cardiac Studies Cardiac Studies, [facility] [address] [place] [address] 07/04/2025 4:00 PM EDT Office Visit Cardiology, [facility] [address] [place] [address] Bandar Avila MD [address] [place] [address] Scheduled Procedures Name Priority Associated Diagnoses Date/Ti [...] this encounter Medical Devices Implanted Type Area Flat Sheet Maker Device Identifier Shelf Expiration Date Model / Serial / Lot Cement Antibiotic Bone - [id number] Implanted:Qty: 3 on 04/28/2012 at [place] [facility] Right: Hip VERONICA : ORTHOPAEDICS 11/19/2013 6197-9-010 / / [id number] Prostalac Acetabular Cup Implanted:Qty: 1 on 04/28/2012 at [facility] Right: Hip SUBHA & SUBHA DEPUY 05/19/2017 1541-42-320 / / [id number] Prostalac Hip Stem Size 105mm Std Offset Implanted:Qty: 1 on 04/28/2012 at [facility] Right: Hip SUBHA & SUBHA DEPUY 10/19/2021 1541-01-000 / / [id number] Description:Prostalac Hip St em Size 105mm Offset (Depuy) Ball Artic Wiliam Brn 32 Plus5 - [id number] Implanted:Qty: 1 on 04/28/2012 at [facility] Right: Hip JNJ : DEPUY ORTHOPAEDICS 10/19/2016 [id number] / / [id number] Rest Mod Prox Cone Body 23 +11 - [id number] Implanted:Qty: 1 on 04/14/2014 at [facility] Right: Hip VERONICA : ORTHOPAEDICS 10/19/2018 6276-1-123 / / [id number] Head Fem 28mm - [id number] Implanted:Qty: 1 on 04/14/2014 at [facility] Right: Hip VERONICA : ORTHOPAEDICS 08/19/2018 6570-0-228 / / [id number] Insert 28mm - [id number] Implanted:Qty: 1 on 04/14/2014 at [facility] Right: Hip VERONICA : ORTHOPAEDICS 02/16/2019 1236-2-848 / / [id number] Cable/Sle Beaded D/M 20 Vit - [id number] Implanted:Qty: 1 on 04/14/2014 at [facility] Right: Hip VERONICA : ORTHOPAEDICS 10/19/2017 6704-0-520 / / [id number] Cable/Sle Beaded D/M 20 Vit - [id number] Implanted:Qty: 1 on 04/14/2014 at [facility] Right: Hip VERONICA : ORTHOPAEDICS 10/19/2017 6704-0-520 / / [id number] Tritanium Revision Acetabular - [id number] Implanted:Qty: 1 on 04/14/2014 at [facility] Right: Hip VERONICA : ORTHOPAEDICS 05/19/2018 509-02-56E / / [id number] Screw Bone Osteolock 24 - [id number] Implanted:Qty: 1 on 04/14/2014 at [place] [facility] Right: Hip VERONICA : ORTHOPAEDICS 02/16/2019 5260-5-024 / / [id number] Screw Bone Osteolock 35 - [id number] Implanted:Qty: 1 on 04/14/2014 at [place] [facility] Right: Hip VERONICA : ORTHOPAEDICS 03/19/2017 5260-5-035 / / [id number] Liner 42mm - [id number] Implanted:Qty: 1 on 04/14/2014 at [place] [facility] Right: Hip VERONICA : ORTHOPAEDICS 11/19/2018 626-00-42E / / [id number] Hip S Mod Conical Dis 20u614 - [id number] Implanted:Qty: 1 on 04/14/2014 at [place] [facility] Right: Hip VERONICA : ORTHOPAEDICS 12/17/2018 6276-7-017 / / [id number] documented as of this encounter Visit Diagnoses Diagnosis Type 2 diabetes mellitus with hemoglobin A1c goal of less than 8.0% ([facility]) documented in this encounter Advance Directives * [...] and were consensually agreed upon. Care Teams Grain Oilseed Or Pasture Farm Worker Relationship Specialty Start Date End Date Willie Pizarro MD [address] [place] [address] PCP - General Family Medicine 11/22/16 documented as of this encounter
--- OUTSIDE RECORDS SUMMARY | 2025-02-24 07:34 | External Medical Summary | Summary of Care ---
Author Name Unknown Organization [facility] Address [address] Care Team Providers Care Surgical Instruments Inspector Name Role Phone Willie Epstein MD Primary Care Provider + Reason for Visit * Reason Onset Date Comments Med Request 11/05/2024 Encounter Details Date Type Department Care Team ([facility] st Contact Info) Description 11/05/2024 Telephone Pharmacy, [facility] [place] [address] [facility] [place] [address] [facility] [place] [address] [facility] [place] [address] Med Request Allergies Active Allergy Reactions Criticality [...] as directed 1 Box of 100 11 12//200 8 Active RENAL MULTIVITAMIN/ZIN C PO TABS None Entered Active ONETOUCH ULTRASOFT LANCETS MISCIndications: Type 2 diabetes mellitus with hemoglobin A1c goal of less than 8.0% (HCC) Use as directed 2 times a day. 1 Box Dosing Unit 11 7 Active cinacalcet (SENSIPAR) 30 MG Tablet Take 1 Tab by mouth daily with dinner. 90 Tab 3 8 Active Blood Glucose Monitoring Suppl ([employer] ULTRA 2) w/Device KIT Use to check blood sugar 2 times a day; E11.9. 1 Kit 0 Active Glucose Blood (MovidiusTOUCH ULTRA BLUE) STRP Use to check blood [...] on 09/20/2024 Gabapentin 100 MG Oral Capsule (Neurontin)Indic ations:Spondylol [...] a week. 4 Patch 3 5 Active Simvastatin 20 MG Oral Tablet (Zocor)Indicatio ns:Dyslipidemia, goal LDL below 70 TAKE ONE TABLET BY MOUTH ONCE A DAY AT BEDTIME 90 Tablet 5 Active Molnupiravir 200 MG Oral Capsule Take 4 Capsules by mouth in the morning and 4 Capsules before bedtime. 40 Capsule 5 Active oxyCODONE HCl 15 MG Oral Tablet (Roxicodone) Take 1 Tablet by mouth every 8 hours as needed for Pain, Severe. 90 Tablet 5 Active documented as of this [...] adult exam 08/04/2019 Overview (03/04/2024): 03/12 EGD [facility]-normal esoph, gastritis. Small hiatal hernia. Gastric 10mm diverticula 01/09 DEXA +osteoporosis. NEED discuss. 11/10 colon +tubular adenomas. 04/09 mult compression fractures. 05/2018 many polyps Therapeutic opioid induced constipation 08/04/20 ESRD on dialysis 09/08/2016 Overview (02/26/2021): 03/05 HCP forms given-wants . NEEDS further Living will 2017 consider transplant needs 20lb -HD [facility]? T,R, S. Since January 2013. Spondylolisthesis [...] 04/13/2021 Overview (04/09/2021): Mult levels 04/09 CT [facility] + lumbar Respiratory symptoms 01/08/2020 021 Fever of unknown origin (FUO) 01/07/2020 02/26/2021 Respiratory infection 01/07/20202020 Cellulitis 06/28/2016 09/08/2016 Abnormal vaginal bleeding 02/12/2016 Cellulitis 02/07/2016 09/08/2016 UTI (urinary tract infection), bacterial 04/19/2014 05/02/2014 Hypotension 04/15/2014 05/02/2014 Compression of lumbar vertebra 02/03/2013 06/07/2021 Overview (04/09/2021): Mult levels noted 04/[address] [facility] [address] also thoracic CKD (chronic [...] 08/25/200909/06 Overview (08/25/2009): Modified 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 long term care administrator current use of ant icoagulant therapy 04/19/2009 [...] ICD-10 update of inactive term BENIGN HYPERTENSION 11/06/20 09 Overview (08/25/2009): Modified 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 Menopause 02/07/2016 Tachycardia 02/07/2016 Pulmonary embolus 10/16/2010 Other psoriasis and similar disorders 02/07/2016 Hemorrhoids 02/07/2016 Renal function test abnormal 07/20/2014 Overview (10/22/2010): Prior ARF secondary to complications from incarcerated hernia and bowel obstruction. Also prior h/o multiple kidney stones - is s/p B/L stents Sees Dr. 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 Advised to call back with any questions or concerns * Telephone Encounter - Willie Epstein MD - 11/08/2024 10:33 AM EST Oxycodone refilled--notify pt "I have reviewed the patient's controlled substance dispensing history in the Prescription Drug Monitoring Program in compliance with the [facility] regulations before prescribing a controlled substance." * Telephone Encounter - Arlene Elise [facility] - 11/08/2024 9:10 AM EST Patient Phone Numbers Spoke to patient via phone. Patient notes she is out of all pain medication, she did not continuous pickling line pickler helper pain patches. Recommending refill of oxycodone at this time until she can get butrans patches. [facility] [place] [facility]. Notes she also has covid. Prescription pended for your approval. Thank you, Arlene Elise, Pharm D, [facility] Clinical Pharmacist 11/08/2024, 9:14 AM * Telephone Encounter - Davion Lieberman RPh - 11/06/2024 11:53 AM EST Contacts Contact Date/Time Type Contact Phone/Fax 11/05/2024 04:22 PM EST Phone (Incoming) Meka Hess (Self) [phone] (M) Pt left voicemail requesting call back from specifically the following MTM pharmacist to discuss pain medication regimen Pt left voicemail to request call back to discuss pain medication management. Please advise. Davion Lieberman PharmD, [facility] PGY1 Opener Medication Therapy Management Clinics Philip 11/06/2024 11:54 AM * Telephone Encounter - Simran Borja CPhT - 11/05/2024 10:07 AM EST Caller's name: Meka Preferred call back number(OFFICE NUMBER FOR ): [phone] Reason for call: patient calling for a refill on the Oxycodone, I asked if she was using the Butrans but she stated she did not know it was sent to the pharmacy so she never picked it up, requesting a call from Arlene to discuss which medication she should be using. Simran Borja CPhT, [place] Die Maintenance Technician II [facility] ([facility]) (formerly Telepharmacy) [address] [facility] [address] [place] [address] ext [phone] documented in this encounter Plan of Treatment Upcoming Encounters Date Type Department Care Team (Late st Contact Info) Description 11/10/2024 3:40 PM EST Office Visit [facility] [address] [place] [address] Willie Epstein MD [address] [place] [address] 12/15/2024 11:00 AM EST Office Visit Pharmacy, [facility] [address] [place] [address] [facility] [address] [place] [address] 03/22/2025 1:40 PM EDT Office Visit [facility] [address] [place] [address] Willie Epstein MD [address] [place] [address] 05/23/2025 3:00 PM EDT Office Visit Dermatology [address] [place] [address] Coco Ivan PA-C [address] [place] [address] [place] [address] 06/13/2025 11:00 AM EDT Cardiac Studies Cardiac Studies, [facility] [address] [place] [address] 07/04/2025 4:00 PM EDT Office Visit Cardiology, [facility] [address] [place] [address] Bandar Avila MD [address] [place] [address] [place] [address] Scheduled Procedures Name Priority Associated Diagnoses Date/Ti [...] this encounter Medical Devices Implanted Type Area Engraver Tender Device Identifier Shelf Expiration Date Model / Serial / Lot Cement Antibiotic Bone - [id number] Implanted:Qty: 3 on 04/28/2012 at OR [facility] Right: Hip VERONICA : ORTHOPAEDICS 11/19/2013 6197-9-010 / / [id number] Prostalac Acetabular Cup Implanted:Qty: 1 on 04/28/2012 at [facility] Right: Hip SUBHA & SUBHA DEPUY 05/19/2017 1541-42-320 / / [id number] Prostalac Hip Stem Size 105mm Std Offset Implanted:Qty: 1 on 04/28/2012 at OR [facility] Right: Hip SUBHA & SUBHA DEPUY 10/19/2021 1541-01-000 / / [id number] Description:Prostalac Hip St em Size 105mm Offset (Depuy) Ball Artic Wiliam Brn 32 Plus5 - [id number] Implanted:Qty: 1 on 04/28/2012 at OR [facility] Right: Hip JNJ : DEPUY ORTHOPAEDICS 10/19/2016 [id number] / / [id number] Rest Mod Prox Cone Body 23 +11 - [id number] Implanted:Qty: 1 on 04/14/2014 at OR [facility] Right: Hip VERONICA : ORTHOPAEDICS 10/19/2018 6276-1-123 / / [id number] Head Fem 28mm - [id number] Implanted:Qty: 1 on 04/14/2014 at [facility] Right: Hip VERONICA : ORTHOPAEDICS 08/19/2018 6570-0-228 / / [id number] Insert 28mm - [id number] Implanted:Qty: 1 on 04/14/2014 at OR [facility] Right: Hip VERONICA : ORTHOPAEDICS 02/16/2019 1236-2-848 / / [id number] Cable/Sle Beaded D/M 20 Vit - [id number] Implanted:Qty: 1 on 04/14/2014 at OR [facility] Right: Hip VERONICA : ORTHOPAEDICS 10/19/2017 6704-0-520 / / [id number] Cable/Sle Beaded D/M 20 Vit - [id number] Implanted:Qty: 1 on 04/14/2014 at OR [facility] Right: Hip VERONICA : ORTHOPAEDICS 10/19/2017 6704-0-520 / / [id number] Tritanium Revision Acetabular - [id number] Implanted:Qty: 1 on 04/14/2014 at OR [facility] Right: Hip VERONICA : ORTHOPAEDICS 05/19/2018 509-02-56E / / [id number] Screw Bone Osteolock 24 - [id number] Implanted:Qty: 1 on 04/14/2014 at [facility] Right: Hip VERONICA : ORTHOPAEDICS 02/16/2019 5260-5-024 / / [id number] Screw Bone Osteolock 35 - [id number] Implanted:Qty: 1 on 04/14/2014 at [facility] Right: Hip VERONICA : ORTHOPAEDICS 03/19/2017 5260-5-035 / / [id number] Liner 42mm - [id number] Implanted:Qty: 1 on 04/14/2014 at [facility] Right: Hip VERONICA : ORTHOPAEDICS 11/19/2018 626-00-42E / / [id number] Hip S Mod Conical Dis 28f807 - [id number] Implanted:Qty: 1 on 04/14/2014 at OR [facility] Right: Hip VERONICA : ORTHOPAEDICS 12/17/2018 6276-7-017 / / [id number] documented as of this encounter Advance Directives [...] and were consensually agreed upon. Care Teams Surgical Instruments Inspector Relationship Specialty Start Date End Date Willie Epstein MD [address] [place] [address] PCP - General Family Medicine 11/22/16 documented as of this encounter
--- OUTSIDE RECORDS SUMMARY | 2025-02-24 07:34 | External Medical Summary | Summary of Care ---
Author Name Unknown Organization [facility] Address [address] [place] [address] Phone [phone] Care Team Providers Care Dynamometer Repairer Name Role Phone Willie Pizarro MD Primary Care Provider + Reason for Visit * Reason Comments eRx-Medication Refill Encounter Details Date Type Department Care Team (Late st Contact Info) Description 10/29/2024 Refill Family Practice [facility] [address] [place] [address] Willie Pizarro MD [address] [place] [address] Dyslipidemia, goal LDL below 70 Allergies Active Allergy Reactions Criticality Noted Date Comments Cefazolin Unknown 11/15/2023 Other Reaction(s): CAN'T REMEMBER Methylprednisolone Other (Please comment) 07/28/2017 Side effects c/w med (sweating, heart racing etc) Nitrofurantoin Hives High 03/01/2024 Nitrofurantoin Monohyd Macro Hives 04/04/2014 Pantoprazole Unknown 11/15/2023 Other Reaction(s): CAN'T REMEMBER Sulfa Antibiotics Edema face/lips/tongue High 09/02/2008 documented as of this encounter (statuses as of 11/02/2024) Medications INSULIN SYRINGE-NEEDLE U-100 30G X 1/2" [...] 11/07/19 18 Active Blood Glucose Monitoring Suppl (Brainlike ULTRA 2) w/Device KIT Use to check blood sugar 2 times a day; E11.9. 1 Kit 10/22/19 20 Active Glucose Blood (Achieve XTOUCH ULTRA BLUE) STRP Use to check blood [...] as of this encounter (statuses as of 11/02/2024) Active Problems Problem Noted Date Diagnosed Date [...] adult exam 08/04/2019 Overview (03/04/2024): 03/12 EGD [facility]-normal esoph, gastritis. Small hiatal hernia. Gastric 10mm diverticula 01/09 DEXA +osteoporosis. NEED discuss. 11/10 colon +tubular adenomas. 04/09 mult compression fractures. 05/2018 many polyps Therapeutic opioid induced constipation 08/04/20 ESRD on dialysis 09/08/2016 Overview (02/26/2021): 03/05 HCP forms given-wants . NEEDS further Living will 2017 consider transplant needs 20lb -HD [place] [facility]? T,R, S. Since January 2013. Spondylolisthesis [...] as of this encounter (statuses as of 11/02/2024) Resolved Problems Problem Noted Date Diagnosed Date Resolved Date Thoracic compression fracture 04/09/2021 04/13/2021 Overview (04/09/2021): Mult levels 04/09 CT [facility] + lumbar Respiratory symptoms 01/08/2020 021 Fever of unknown origin (FUO) 01/07/2020 02/26/2021 Respiratory infection 01/07/20202020 Cellulitis 06/28/2016 09/08/2016 Abnormal vaginal bleeding 02/12/2016 Cellulitis 02/07/2016 09/08/2016 UTI (urinary tract infection), bacterial 04/19/2014 05/02/2014 Hypotension 04/15/2014 05/02/2014 Compression of lumbar vertebra 02/03/2013 06/07/2021 Overview (04/09/2021): Mult levels noted 04/[address] [facility] [address] also thoracic CKD (chronic [...] s/p B/L stents Sees Dr. 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 * Telephone Encounter - Nichelle Abreu CRNP [...] ABREU * Telephone Encounter - Margaret Barksdale [facility] - 10/29/2024 11:14 AM ESTPending Prescriptions: Disp Refills Simvastatin 20 MG Oral Tablet (Zocor) 90 Tab* Sig: TAKE ONE TABLET BY MOUTH ONCE A DAY AT BEDTIME * Telephone Encounter - Margaret Barks[facility] - 10/29/2024 11:13 AM EST Unable [...] PharmD Clinical Pharmacist Centralized Clinical Pharmacy Services ([facility]) [phone] 10/29/2024, 11:14 AM documented in this encounter Plan of Treatment Upcoming Encounters Date Type Department Care Team (Late st Contact Info) Description 11/05/2024 10:40 AM EST Office Visit [facility] [address] [place] [address] Willie Pizarro MD [address] [place] [address] 12/15/2024 11:00 AM EST Office Visit Pharmacy, [facility] [address] [place] [address] [facility] [address] [place] [address] 03/22/2025 1:40 PM EDT Office Visit [facility] [address] [place] [address] Willie Pizarro MD [address] [place] [place] [address] 05/23/2025 3:00 PM EDT Office Visit Dermatology [address] [place] [address] Coco Ivan PA-C [address] [place] [address] [place] [address] 06/13/2025 11:00 AM EDT Cardiac Studies Cardiac Studies, [facility] [address] [place] [address] 07/04/2025 4:00 PM EDT Office Visit Cardiology, [facility] [address] [address] Bandar Avila MD [address] [place] [address] Scheduled Procedures Name Priority Associated Diagnoses Date/Ti [...] this encounter Medical Devices Implanted Type Area Vice President Pharmacy Device Identifier Shelf Expiration Date Model / Serial / Lot Cement Antibiotic Bone - [id number] Implanted:Qty: 3 on 04/28/[address] [facility] Right: Hip VERONICA : ORTHOPAEDICS 11/19/2013 6197-9-010 / / [id number] Prostalac Acetabular Cup Implanted:Qty: 1 on 04/28/[address] [facility] Right: Hip SUBHA & SUBHA DEPUY 05/19/2017 1541-42-320 / / [id number] Prostalac Hip Stem Size 105mm Std Offset Implanted:Qty: 1 on 04/28/[address] [facility] Right: Hip SUBHA & SUBHA DEPUY 10/19/2021 1541-01-000 / / [id number] Description:Prostalac Hip St em Size 105mm Offset (Depuy) Ball Artic Wiliam Brn 32 Plus5 - [id number] Implanted:Qty: 1 on 04/28/[address] [facility] Right: Hip JNJ : DEPUY ORTHOPAEDICS 10/19/2016 [id number] / / [id number] Rest Mod Prox Cone Body 23 +11 - [id number] Implanted:Qty: 1 on 04/14/[address] [facility] Right: Hip VERONICA : ORTHOPAEDICS 10/19/2018 6276-1-123 / / [id number] Head Fem 28mm - [id number] Implanted:Qty: 1 on 04/14/2014 at [facility] Right: Hip VERONICA : ORTHOPAEDICS 08/19/2018 6570-0-228 / / [id number] Insert 28mm - [id number] Implanted:Qty: 1 on 04/14/[address] [facility] Right: Hip VERONICA : ORTHOPAEDICS 02/16/2019 1236-2-848 / / [id number] Cable/Sle Beaded D/M 20 Vit - [id number] Implanted:Qty: 1 on 04/14/2014 at [facility] Right: Hip VERONICA : ORTHOPAEDICS 10/19/2017 6704-0-520 / / [id number] Cable/Sle Beaded D/M 20 Vit - [id number] Implanted:Qty: 1 on 04/14/2014 at [facility] Right: Hip VERONICA : ORTHOPAEDICS 10/19/2017 6704-0-520 / / [id number] Tritanium Revision Acetabular - [id number] Implanted:Qty: 1 on 04/14/2014 at [facility] Right: Hip VERONICA : ORTHOPAEDICS 05/19/2018 509-02-56E / / [id number] Screw Bone Osteolock 24 - [id number] Implanted:Qty: 1 on 04/14/2014 at [facility] Right: Hip VERONICA : ORTHOPAEDICS 02/16/2019 5260-5-024 / / [id number] Screw Bone Osteolock 35 - [id number] Implanted:Qty: 1 on 04/14/2014 at [facility] Right: Hip VERONICA : ORTHOPAEDICS 03/19/2017 5260-5-035 / / [id number] Liner 42mm - [id number] Implanted:Qty: 1 on 04/14/2014 at [facility] Right: Hip VERONICA : ORTHOPAEDICS 11/19/2018 626-00-42E / / [id number] Hip S Mod Conical Dis 68l354 - [id number] Implanted:Qty: 1 on 04/14/2014 at [facility] Right: Hip VERONICA : ORTHOPAEDICS 12/17/2018 6276-7-017 / / [id number] documented as of this encounter Visit Diagnoses [...] and were consensually agreed upon. Care Teams Dynamometer Repairer Relationship Specialty Start Date End Date Willie Pizarro MD [address] [facility] [place] [address] PCP - General Family Medicine 11/22/16 documented as of this encounter
--- OUTSIDE RECORDS SUMMARY | 2025-02-24 07:35 | External Medical Summary | Summary of Care ---
Author Name Unknown Organization [facility] Address [address] [place] [address] Phone [phone] Care Team Providers Care Septic Cleaner Name Role Phone Willie Epstein MD Primary Care Provider + Reason for Visit * Reason Onset Date Comments Advice 10/29/2024 Encounter Details Date Type Department Care Team (Late st Contact Info) Description 10/29/2024 Telephone Family Practice [facility] [address] [place] [address] Willie Epstein MD [address] [place] [address] Advice Allergies Active Allergy Reactions Criticality Noted Date Comments Cefazolin Unknown 11/15/2023 Other Reaction(s): CAN'T REMEMBER Methylprednisolone Other (Please comment) 07/28/2017 Side effects c/w med (sweating, heart racing etc) Nitrofurantoin Hives High 03/01/2024 Nitrofurantoin Monohyd Macro Hives 04/04/2014 Pantoprazole Unknown 11/15/2023 Other Reaction(s): CAN'T REMEMBER Sulfa Antibiotics Edema face/lips/tongue High 09/02/2008 documented as of this encounter (statuses as of 11/01/2024) Medications INSULIN SYRINGE-NEEDLE U-100 30G X 1/2" [...] 11/07/19 18 Active Blood Glucose Monitoring Suppl (Aurality ULTRA 2) w/Device KIT Use to check blood sugar 2 times a day; E11.9. 1 Kit 10/22/19 20 Active Glucose Blood (NeuropureTOUCH ULTRA BLUE) STRP Use to check blood [...] week. 4 Patch 3 10/22/19 25 Active Molnupiravir 200 MG Oral Capsule Take 4 Capsules by mouth in the morning and 4 Capsules before bedtime. 40 Capsule 10/29/19 25 Active Simvastatin 20 MG Oral Tablet (Zocor)Indicati ons:Dyslipidemi a, goal LDL below 70 TAKE ONE TABLET BY MOUTH ONCE A DAY AT BEDTIME 90 Tablet 1 04/30/20 24 025 Discontinued documented as of this encounter (statuses as of 11/01/2024) Active Problems Problem Noted Date Diagnosed Date [...] Overview (03/04/2024): 03/12 EGD [facility]-normal esoph, gastritis. Small hiatal hernia. Gastric 10mm diverticula 01/09 DEXA +osteoporosis. NEED discuss. 11/10 colon +tubular adenomas. 04/09 mult compression fractures. 05/2018 many polyps Therapeutic opioid induced constipation 08/04/20 19 ESRD on dialysis 09/08/2016 Overview (02/26/2021): 03/05 HCP forms given-wants . NEEDS further Living will 2017 consider transplant needs 20lb -HD [facility]? T,R, S. Since January 2013. Spondylolisthesis [...] as of this encounter (statuses as of 11/01/2024) Resolved Problems Problem Noted Date Diagnosed Date Resolved Date Thoracic compression fracture 04/09/2021 04/13/2021 Overview (04/09/2021): Mult levels 04/09 CT [facility] + lumbar Respiratory symptoms 01/08/2020 021 Fever of unknown origin (FUO) 01/07/2020 02/26/2021 Respiratory infection 01/07/20202020 Cellulitis 06/28/2016 09/08/2016 Abnormal vaginal bleeding 02/12/2016 Cellulitis 02/07/2016 09/08/2016 UTI (urinary tract infection), bacterial 04/19/2014 05/02/2014 Hypotension 04/15/2014 05/02/2014 Compression of lumbar vertebra 02/03/2013 06/07/2021 Overview (04/09/2021): Mult levels noted 04/[address] [facility] [address] also thoracic CKD (chronic [...] 08/25/200909/06 Overview (08/25/2009): 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 Angel in [place] for Urology Osteoarthritis of hip 2018 documented as of this encounter (statuses as of 11/01/2024) Immunizations Name Administration Dates Next Due COVID-19 mRNA, LNP-s, No Pre serve, 2-Dose Series (Airtime) 09/11/2021,01/02/2021,12/12/2020 COVID-19, mRNA, LNP-s, PF, B ooster, 100mcg/0.5mg (Moderna) 02/26/2022 Covid-19, Mrna, Lnp-s, Pf, B ivalent, 30 Mcg, IM, 12 yrs and above (Airtime) 07/01/2022 H1N1 2009 Influenza, IM 10/17/2009 HEPATITIS B VACCINE, RECOMB, 20 MCG/ML, ADULT (HEPLISAV-B) 05/28/2022,04/04/2022,02/26/2022,01/18 Hepatitis B, 0-19 yrs 03/07/2016, 016,11/02/2015,08/21,05/11/2013,04/13/2013,03/16/20 13 Hepatitis B, 20+ yrs 03/07/2016,12/09/19 16,11/02/2015,08/21,05/11/2013,04/13/2013,03/16/20 13 Pneumococcal Conjugate Vacc, 13 Valent (Prevnar) 12/31/2017,12/10/2016 Pneumococcal Polysaccharide PPV23 (Pneumovax) 08/20/2019,04/15/2006 Seasonal Influenza Vac., MDV , IM, 0.5 mL (Fluzone) 08/20/2015,07/20/2014,07/06/2013,10/03/2012,07/10/2011,07/23/2010,07/27/20,07/29/2008,08/26/2007,08/14/2006,1 11/04/2004,10/31/2004,08/17/2003,09/03,09/14/2001,10/01/2000 10/01/2001 Seasonal Influenza, High Dos e, [...] Date 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 * Telephone Encounter - Anilrene Ashlykirsten Horan, MINDI - 10/29/2024 1:27 PM EST Patient checking status on medication, please call her once its been called to pharmacy and she said she feels terrible Noted and appreciated * Telephone Encounter - Danette Perez MD - 10/29/2024 10:47 AM EST Noted and appreciated * Telephone Encounter - Willie Epstein MD - 10/29/2024 9:54 AM EST Paxlovid not recommended by broadcast journalist with GFR<30. Will send molnupirivir , instead. [...] Description 11/05/2024 10:40 AM EST Office Visit [facility] [address] [place] [address] Willie Epstein MD [address] [place] [address] 12/15/2024 11:00 AM EST Office Visit Pharmacy, [facility] [address] [place] [address] [facility] [address] [place] [address] 03/22/2025 1:40 PM EDT Office Visit Family Practice [facility] [address] [place] [address] Willie Epstein MD [address] [place] [address] 05/23/2025 3:00 PM EDT Office Visit Dermatology [address] [place] [address] Coco Ivan [address] [place] [address] 06/13/2025 11:00 AM EDT Cardiac Studies Cardiac Studies, [facility] [address] [place] [address] 07/04/2025 4:00 PM EDT Office Visit Cardiology, [facility] [address] [facility] [place] [address] Bandar Avila MD [address] [place] [address] Scheduled Procedures Name Priority Associated Diagnoses Date/Ti [...] this encounter Medical Devices Implanted Type Area Physician'S Aide Device Identifier Shelf Expiration Date Model / Serial / Lot Cement Antibiotic Bone - [id number] Implanted:Qty: 3 [place] [facility] [place] VERONICA : ORTHOPAEDICS 11/19/2013 6197-9-010 / / [id number] Prostalac Acetabular Cup Implanted:Qty: 1 on 04/28/2012 at [facility] Right: Hip SUBHA & SUBHA DEPUY 05/19/2017 1541-42-320 / / [id number] Prostalac Hip Stem Size 105mm Std Offset Implanted:Qty: 1 on 04/28/2012 at [facility] Right: Hip SUBHA & SUBHA DEPUY 10/19/2021 1541-01-000 / / [id number] Description:Prostalac Hip St em Size 105mm Offset (Depuy) Ball Artic Wiliam Brn 32 Plus5 - [id number] Implanted:Qty: 1 on 04/28/2012 at [facility] Right: Hip JNJ : DEPUY ORTHOPAEDICS 10/19/2016 [id number] / / [id number] Rest Mod Prox Cone Body 23 +11 - [id number] Implanted:Qty: 1 on 04/14/2014 at [facility] Right: Hip VERONICA : ORTHOPAEDICS 10/19/2018 6276-1-123 / / [id number] Head Fem 28mm - [id number] Implanted:Qty: 1 on 04/14/2014 at [facility] Right: Hip VERONICA : ORTHOPAEDICS 08/19/2018 6570-0-228 / / [id number] Insert 28mm - [id number] Implanted:Qty: 1 on 04/14/2014 [place] [facility] [place] VERONICA : ORTHOPAEDICS 02/16/2019 1236-2-848 / / [id number] Cable/Sle Beaded D/M 20 Vit - [id number] Implanted:Qty: 1 on 04/14/2014 at [facility] Right: Hip VERONICA : ORTHOPAEDICS 10/19/2017 6704-0-520 / / [id number] Cable/Sle Beaded D/M 20 Vit - [id number] Implanted:Qty: 1 on 04/14/2014 at [facility] Right: Hip VERONICA : ORTHOPAEDICS 10/19/2017 6704-0-520 / / [id number] Tritanium Revision Acetabular - [id number] Implanted:Qty: 1 on 04/14/2014 [place] [facility] [place] VERONICA : ORTHOPAEDICS 05/19/2018 509-02-56E / / [id number] Screw Bone Osteolock 24 - [id number] Implanted:Qty: 1 on 04/14/2014 at [facility] Right: Hip VERONICA : ORTHOPAEDICS 02/16/2019 5260-5-024 / / [id number] Screw Bone Osteolock 35 - [id number] Implanted:Qty: 1 on 04/14/2014 at [facility] Right: Hip VERONICA : ORTHOPAEDICS 03/19/2017 5260-5-035 / / [id number] Liner 42mm - [id number] Implanted:Qty: 1 on 04/14/2014 at [facility] Right: Hip VERONICA : ORTHOPAEDICS 11/19/2018 626-00-42E / / [id number] Hip S Mod Conical Dis 54z441 - [id number] Implanted:Qty: 1 on 04/14/2014 [place] [facility] [place] Hip VERONICA : ORTHOPAEDICS 12/17/2018 6276-7-017 / / [id number] documented as of this encounter Advance Directives [...] and were consensually agreed upon. Care Teams Septic Cleaner Relationship Specialty Start Date End Date Willie Epstein MD [address] [place] [address] PCP - General Family Medicine 11/22/16 documented as of this encounter
--- OUTSIDE RECORDS SUMMARY | 2025-02-24 07:35 | External Medical Summary | Summary of Care ---
Author Name Unknown Organization [facility] Address [address] [place] [address] Phone [phone] Care Team Providers Care Gut Snatcher Name Role Phone Willie Pizarro MD Primary Care Provider + Reason for Visit * Reason Comments eRx-Medication Refill Encounter Details Date Type Department Care Team (Late st Contact Info) Description 10/29/2024 Refill Family Practice [facility] [address] [place] [address] Willie Pizarro MD [address] [place] [address] Dyslipidemia, goal LDL below 70 Allergies Active [...] 11/07/19 18 Active Blood Glucose Monitoring Suppl (Cavendish [employer]inetics ULTRA 2) w/Device KIT Use to check blood sugar 2 times a day; E11.9. 1 Kit 10/22/19 20 Active Glucose Blood (CLH GroupTOUCH ULTRA BLUE) STRP Use to check blood [...] will 2017 consider transplant needs 20lb -HD [facility]? T,R, S. Since January 2013. Spondylolisthesis [...] s/p B/L stents Sees Dr. 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 [...] Miscellaneous Notes * Telephone Encounter - Nichelle Arrieta CRNP - 10/29/2024 2:06 PM EST Inboxologist Covering Provider Needs lipid panel and it has already been ordered All replies or additional communication must be routed to the PCP * Telephone Encounter - Nichelle Arrieta CRNP - 10/29/2024 2:06 PM EST Signed Prescriptions: Disp Refills Simvastatin 20 MG Oral Tablet (Zocor) 90 Tab*0 Sig: TAKE ONE TABLET BY MOUTH ONCE A DAY AT BEDTIME Authorizing Provider: WILLIE PIZARRO User: NICHELLE ARRIETA * Telephone Encounter - Margaret Barksdale RP - 10/29/2024 11:14 AM ESTPending Prescriptions: Disp Refills Simvastatin 20 MG Oral Tablet (Zocor) 90 Tab* Sig: TAKE ONE TABLET BY MOUTH ONCE A DAY AT BEDTIME * Telephone Encounter - Margaret Barksdale RP - 10/29/2024 11:13 AM EST Unable to [...] Clinical Pharmacist [facility] [phone] 10/29/2024, 11:14 AM documented in this encounter Plan of Treatment Upcoming Encounters Date Type Department Care Team (Late st Contact Info) Description 11/05/2024 10:40 AM EST Office Visit [facility] [address] [place] [address] Willie Pizarro MD [address] [place] [address] 12/15/2024 11:00 AM EST Office Visit Pharmacy, [facility] [address] [address] [facility] [address] [place] [address] 03/22/2025 1:40 PM EDT Office Visit [facility] [address] [place] [address] Willie Pizarro MD [address] [place] [address] 05/23/2025 3:00 PM EDT Office Visit Dermatology [address] [place] [address] Coco Ivan PA-C [address] [place] [address] [place] [address] 06/13/2025 11:00 AM EDT Cardiac Studies Cardiac Studies, [facility] [address] [place] [address] [address] 07/04/2025 4:00 PM EDT Office Visit Cardiology, [facility] [address] [place] [address] Bandar Avila MD [address] [place] [address] Scheduled Procedures Name Priority Associated Diagnoses Date/Ti [...] this encounter Medical Devices Implanted Type Area Helpdesk Analyst Device Identifier Shelf Expiration Date Model / Serial / Lot Cement Antibiotic Bone - [id number] Implanted:Qty: 3 [place] [facility] [place] VERONICA : ORTHOPAEDICS 11/19/2013 6197-9-010 / / [id number] Prostalac Acetabular Cup Implanted:Qty: 1 on 04/28/2012 [place] [facility] [place] SUBHA & SUBHA DEPUY 05/19/2017 1541-42-320 / / [id number] Prostalac Hip Stem Size 105mm Std Offset Implanted:Qty: 1 on 04/28/2012 [place] [facility] [place] SUBHA & SUBHA DEPUY 10/19/2021 1541-01-000 / / [id number] Description:Prostalac Hip St em Size 105mm Offset (Depuy) Ball Artic Wiliam Brn 32 Plus5 - [id number] Implanted:Qty: 1 on 04/28/2012 [place] [facility] [place] JNJ : DEPUY ORTHOPAEDICS 10/19/2016 [id number] / / [id number] Rest Mod Prox Cone Body 23 +11 - [id number] Implanted:Qty: 1 on 04[place]14/2014 [place] [facility] [place] Hip VERONICA : ORTHOPAEDICS 10/19/2018 6276-1-123 / / [id number] Head Fem 28mm - [id number] Implanted:Qty: 1 on 04/14/2014 [place] [facility] [place] Hip VERONICA : ORTHOPAEDICS 08/19/2018 6570-0-228 / / [id number] Insert 28mm - [id number] Implanted:Qty: 1 on 04[place]14/2014 [place] [facility] [place] Hip VERONICA : ORTHOPAEDICS 02/16/2019 1236-2-848 / / [id number] Cable/Sle Beaded D/M 20 Vit - [id number] Implanted:Qty: 1 on 04[place]14/2014 [place] [facility] [place] Hip VERONICA : ORTHOPAEDICS 10/19/2017 6704-0-520 / / [id number] Cable/Sle Beaded D/M 20 Vit - [id number] Implanted:Qty: 1 on 04[place]14/2014 [place] [facility] [place] Hip VERONICA : ORTHOPAEDICS 10/19/2017 6704-0-520 / / [id number] Tritanium Revision Acetabular - [id number] Implanted:Qty: 1 on 04/14/2014 at [facility] Right: Hip VERONICA : ORTHOPAEDICS 05/19/2018 509-02-56E / / [id number] Screw Bone Osteolock 24 - [id number] Implanted:Qty: 1 on 04/14/2014 at [facility] Right: Hip VERONICA : ORTHOPAEDICS 02/16/2019 5260-5-024 / / [id number] Screw Bone Osteolock 35 - [id number] Implanted:Qty: 1 on 04/14/2014 at [facility] Right: Hip VERONICA : ORTHOPAEDICS 03/19/2017 5260-5-035 / / [id number] Liner 42mm - [id number] Implanted:Qty: 1 on 04/14/2014 at [facility] Right: Hip VERONICA : ORTHOPAEDICS 11/19/2018 626-00-42E / / [id number] Hip S Mod Conical Dis 06q626 - [id number] Implanted:Qty: 1 on 04/14/2014 at [facility] Right: Hip VERONICA : ORTHOPAEDICS 12/17/2018 6276-7-017 / / [id number] documented as of this encounter Visit Diagnoses [...] and were consensually agreed upon. Care Teams Gut Snatcher Relationship Specialty Start Date End Date Willie Pizarro MD [address] [facility] [place] [address] PCP - General Family Medicine 11/22/16 documented as of this encounter
[2025-02-24 08:11] LABS: Basophils # (auto) 0.03 K/uL (0.00-0.20); Basophils % (auto) 0.4 %; Eosinophils # (auto) 0.16 K/uL (0.00-0.50); Eosinophils % (auto) 1.9 %; Hematocrit (blood only) 27.9 % (37.0-47.0); Hemoglobin 8.9 g/dl (12.0-16.0); Immature Granulocytes # (auto) 0.04 K/uL (0.01-0.20); Immature Granulocytes % (auto) 0.5 %; Lymphocytes # (auto) 0.84 K/uL (1.20-3.40); Lymphocytes % (auto) 10.1 %; Mean Corpuscular Hemoglobin 31.7 pg (25.0-34.0); Mean Corpuscular Hgb Conc 31.9 g/dL (32.0-36.0); Mean Corpuscular Volume 99.3 fL (80.0-100.0); Mean Platelet Volume 9.4 fL (9.4-12.4); Monocytes # (auto) 0.46 K/uL (0.11-0.59); Monocytes % (auto) 5.5 %; Neutrophils # (auto) 6.77 K/uL (1.40-6.50); Neutrophils % (auto) 81.6 %; Platelet Count 231 K/uL (130-400); RDW Coefficient of Variation 15.7 % (11.5-14.5); Red Blood Count 2.81 M/uL (4.20-5.40)
[2025-02-24 08:30] LABS: Albumin Globulin Ratio 0.9 (0.9-2); Albumin Level 3.2 gm/dl (3.4-5.0); BUN Creatinine Ratio 13.1 (10-20); Bilirubin,Total 0.3 mg/dl (0.2-1.0); Calcium 8.4 mg/dl (8.6-10.3); Creatinine Clr Calc Pharmacy 13.1 ml/min; Globulin 3.7 gm/dl (2.5-4.0); Magnesium 2.2 mg/dl (1.7-2.4); Potassium 4.2 mmol/L (3.5-5.1); Total Protein 6.9 gm/dl (6.0-8.3)
[2025-02-24 08:40] LABS: Partial Thromboplastin Ratio 1.2; Partial Thromboplastin Time 31 Seconds (21-31); Prothrombin Time 11.1 Seconds (9.0-12.0)
--- NOTE | 2025-02-24 08:41 | XRay Report ---
EXAM: XR chest 1V portable CLINICAL HISTORY: Syncope. TECHNIQUE: An X-ray image of the chest is obtained in AP projection. COMPARISON: 12/23/2024. FINDINGS: Pulmonary Parenchyma: Bilateral nodular opacities, few of which are ill-defined, conspicuous in the right upper mid and lower zones. Bilateral prominent bronchovascular/interstitial markings with diversion of upper lobes. Opacification of left lower zone obscuring the left costophrenic recess. Heart and Mediastinum: Cardiomegaly. No mediastinal widening or masses. No hilar or mediastinal lymphadenopathy. Bony Thorax: Bilateral degenerative changes are seen at the glenohumeral joint space. No fracture or dislocation seen. Soft Tissues: Soft tissues overlying the chest wall are unremarkable. IMPRESSION: 1. Bilateral nodular opacities, few of which are ill-defined, conspicuous in the right lung. Postinflammatory. Suggest clinical and lab correlation. 2. Cardiomegaly. 3. Comparing the previous x-ray dated 12/23/2024, there is interval progression. Electronically signed by Matheus Hernandez 02-24-2025 08:35 AM
--- NOTE | 2025-02-24 09:14 | History & Physical Report ---
Date of Service February 24, 2025 Assessment & Plan (1) Aspiration pneumonia: (2) Opiate overdose: (3) Hypovolemic shock: (4) Elevated troponin I level: (5) End stage renal disease on dialysis: (6) DM type 2 (diabetes mellitus, type 2): (7) Anemia: Plan This is a 70 y/o female with ESRD on HD, DM2, hx PE, anemia in ESRD, psoriasis, hyperlipidemia, and other history as outlined below who presented to the ED from HD today with a syncopal episode. Pt notes episode of vomiting early this morning before HD. Upon initial presentation, pt was noted to be hypotensive and hypoxic and was given Narcan in the ED as well as a dose of midodrine and 250 cc bolus with improvement of BP, initiation of O2 with improvement of hypoxia. However, after Narcan, pt with significant agitation and tremulousness. Referred for admission for further management. Chest x-ray concerning for potential aspiration. Escalating need for respiratory support in the ED - supplemental O2 via NC, then escalation to BiPAP. Attending spoke with camera control operator who will evaluate pt in the ED regarding need for additional respiratory support. #Aspiration pneumonitis #Hypoxic respiratory failure - Admit to PCU - Empiric Zosyn for presumed aspiration - Hypertonic saline nebs, DuoNebs BID - Aspiration precautions #Possible opioid overdose - received Narcan in the ED, now appears to be in withdrawal - Give additional dose of Ativan now due to agitation and tremulousness - Consider resuming chronic opioid therapy later today #Syncopal episode - likely multifactorial related to aspiration with hypoxia, hypotension, opioid use - Received 250 cc IVF bolus in the ED with improvement in BP #ESRD on HD - Spoke with breast trimmer, Dr. Perez, who will evaluate patient for HD while admitted #Type 2 Diabetes - Insulin sliding scale - BSG ACHS - Diabetic diet #Anemia - Chronic related to ESRD - no evidence of active bleeding at present - Follow H&H Pt seen and reviewed with collaborating physician, Dr. Sifuentes. Plan of care discussed and as outlined above. Code status: full code DVT prophylaxis: SCDs for now, if H&H stable on recheck then subq heparin Marilu Gomez PA-C Pt re-evaluated due to worsening BP with systolic in the 60s and increased O2 requirement. Started on BiPAP for respiratory support. Due to worsening status, attending spoke with camera control operator who will evaluate pt in the ED. Will upgrade level of care from PCU to ICU admission. Updated breast trimmer on change in patient's status. Consider pressors for BP support pending evaluation by the camera control operator. Will make pt NPO, ICU hyperglycemia protocol. #Hypovolemic shock - Starting phenylephrine for BP support - Continue midodrine I spent a total of 105 minutes of critical care time coordinating, documenting, and providing care for this patient excluding time spent in the performance of separately billed services or time spent by another provider/QHP. Marilu Gomez PA-C History of Present Illness Chief Complaint: syncope Primary Care Provider: Willie Epstein MD This is a 70 y/o female with ESRD on HD, DM2, hx PE, anemia in ESRD, psoriasis, hyperlipidemia, and other history as outlined below who presented to the ED from HD today with a syncopal episode. Early this morning, pt reports an episode of vomiting. [place] lightheaded afterwards. Took her usual dose of oxycodone 15 mg an d a dose of Ativan 0.5 mg this morning then went to dialysis as scheduled. While at dialysis, she had a syncopal episode and was sent to the ED for evaluation. In the ED, she was hypotensive and hypoxic with pinpoint pupils so she was given a dose of Narcan. Since receiving the Narcan, she has been restless, irritable, and shaky. She notes increased shortness of breath this morning but denies rece nt illness over the last few days. Her outpatient records were reviewed including PCP note from 02/16. She has had worsening anxiety over the last few months so her citalopram is being tapered and changed to paroxetine. She has had worsening of chronic pain in both neck and back so she was restarted on oxycodone at this visit (had been on [place] patch, meloxicam, and celecoxib. Pt reports that she has been taking the oxycodone 15 mg TID as prescribed and denies taking any extra doses. ECHO May 2024 - mildly increased (concentric) LV wall thickness, normal LV wall motion, LVEF 65-69%, moderate AoV stenosis, severe mitral annular calcification, moderate mitral stenosis, moderate mitral regurgitation (new), mild flow acceleration at the proximal descending aorta of 2 m/sec is unchanged from prior (2022). Allergies Allergy/AdvReac Type Severity Reaction Status Date / Time Sulfa (Sulfonamide Allergy Severe Face/lips/tongue Verified 10/30/24 15:19 Antibiotics) edema nitrofurantoin Allergy Intermediate Hives Verified 10/30/24 15:19 cefazolin [From Ancef] Allergy Unknown CAN'T Verified 10/30/24 15:19 REMEMBER pantoprazole [From Protonix] Allergy Unknown CAN'T Verified 10/30/24 15:19 REMEMBER methylprednisolone AdvReac Intermediate Sweating, Verified 10/30/24 15:19 [From Medrol] heart racing Home Medications Medication Instructions Recorded Confirmed Type gabapentin 100 mg capsule 100 mg PO DIRECTED 12/31/18 02/24/25 History betamethasone dipropionate 0.05 % 1 applic topical BID PRN 11/15/23 02/24/25 History topical ointment PSORIASIS/ITCHING ropinirole 2 mg tablet 2 mg PO HS 11/15/23 02/24/25 History simvastatin 20 mg tablet 20 mg PO HS 11/15/23 02/24/25 History vitamin B complex-vitamin C-folic 1 tab PO QAM 11/15/23 02/24/25 History acid 0.8 mg tablet (Anais-Federico) cholecalciferol (vitamin D3) 125 125 mcg PO UD 09/23/24 02/24/25 History mcg (5,000 unit) tablet (Vitamin D3) cinacalcet 90 mg tablet (Sensipar) 180 mg PO QPM 09/23/24 02/24/25 History epoetin beta, methoxy peg 100 100 mcg IV UD 09/23/24 02/24/25 History mcg/0.3 mL injection syringe (Mircera) iron sucrose 50 mg iron/2.5 mL 50 mg IV UD 09/23/24 02/24/25 History intravenous solution lanthanum 750 mg chewable tablet 750 mg PO TIDWMEAL 10/30/24 02/24/25 History (Fosrenol) triamcinolone acetonide 0.1 % 1 applic topical BID PRN Skin 10/30/24 02/24/25 History topical ointment Irritation midodrine 2.5 mg tablet 5 mg PO UD 12/21/24 02/24/25 History guaifenesin 600 mg tablet, 600 mg PO Q12 PRN cough/congestion 12/23/24 02/24/25 Rx extended release 12 hr (Mucinex) #30 tabs citalopram 10 mg tablet 10 mg PO DAILY 02/24/25 02/24/25 History dulaglutide 0.75 mg/0.5 mL 0.75 mg subcut WK 02/24/25 02/24/25 History subcutaneous pen injector (Trulicity) lorazepam 0.5 mg tablet 0.5 mg PO HS PRN Anxiety 02/24/25 02/24/25 History oxycodone 15 mg tablet 15 mg PO Q8H PRN Pain, Severe 02/24/25 02/24/25 History paroxetine HCl 10 mg tablet 10 mg PO DAILY 02/24/25 02/24/25 History Past Med/Surg History Problem List (Updated 02/24/25 @ 13:29 by Andra Gomez PA-C) Aspiration pneumonia Opiate overdose Hypovolemic shock [place]and ischemia of myocardium Acute on chronic systolic heart failure due to valvular disease Elevated troponin I level (Acute) Dyslipidemia Swelling of right upper extremity Lower urinary tract symptoms (LUTS) MINDI (obstructive sleep apnea) Anemia (Acute) Chronic renal insufficiency (Acute) 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 Perez Medical History Swelling of right upper extremity Lower urinary tract symptoms (LUTS) Hx of fall ESRD (end stage renal disease) on dialysis Diaylsis Tues/Thurs/Sat- [facility] [place] Follows with Dr. Perez Chronic pain History of cellulitis Anemia Hx of gastrointestinal hemorrhage History of dialysis fistulography Ambulatory dysfunction walker-dependent Anxiety and depression RLS (restless legs syndrome) History of blood transfusion 2022 Pulmonary hypertension mild on 2020 echo Sleep apnea severe-not currently treated per pt Moderate aortic stenosis (MELCHOR 0.8 cm2, mean PG 20 mmHg) Diabetes mellitus, type 2 Limb alert care status RUE AVF Osteoporosis HLD (hyperlipidemia) Psoriasis History of renal calculi History of DVT (deep vein thrombosis) RLE, 10+ years ago, post op AC therapy x 3-6 months after > d/c'd + no issues since History of pulmonary embolus (PE) 10+ years ago, post op- no issues since Surgical History History of esophagogastroduodenoscopy (EGD) Hx of bilateral hip replacements H/O laparoscopy History of cystoscopy S/P arteriovenous (AV) fistula repair (~2020) x2 right- currently getting HD History of tooth extraction History of x 2 S/P arteriovenous (AV) fistula creation x 2 BL (non functioning on left)--left still in place not working History of colonoscopy H/O partial resection of colon (2012) For diverticulitis H/O inguinal hernia repair left S/P cholecystectomy Family History Mother Diabetes Sister Diabetes Other No family history of adverse response to anesthesia Social History Smoking Status: Never smoker Tobacco Type: Cigarettes Second Hand Exposure: No; Do You Dip or Chew Tobacco: No; Hx Alcohol Use: No Hx Substance Use: No Preferred Language: Macedonian Communication Ability: Effective Splitter Operator Required: No Beliefs That Will Affect Care: None marital status: Current Living Situation: Spouse Current Living Situation Comment: lives in 2 story home with , daughter and grandson How many Children do You have: 3 Other Information That Helps Us Care for You: No Feels Safe at Home: Yes Safety Concerns: Feels Safe At This Time Assistive Devices: Denture - Upper, Denture - Lower and Walker Review of Systems Review of Systems: All systems reviewed & are unremarkable except as noted in Subjective Physical Exam Physical Exam: General: agitated, shaky, moving around frequently in bed HEENT: no scleral icterus, moist oral mucosa Neck: supple, trachea midline Heart: regular, tachycardic, +murmur Lungs: mildly diminished, faint basilar crackles Abdomen: soft, NT, +BS Extremities: RLE mildly swollen (pt reports chronic, no worse than usual), no pedal edema LLE, RUE with fistula - dressing c/d/i, +thrill Neurologic: follows commands, tremulous, drowsy at times but easily arouses, Ox3 Results & Data Results & Data Vital Signs (Past 12 Hours) Vital Signs Pulse Pulse Resp BP BP Pulse Ox O2 Del Method 02/24/25 09:05 120 H 18 120/78 94 Nasal Cannula 02/24/25 08:20 115 H 25 H 142/93 H 95 Nasal Cannula 02/24/25 07:58 120 H 18 123/70 100 Nasal Cannula 02/24/25 07:55 100 Nasal Cannula 02/24/25 07:46 39 L Room Air 02/24/25 07:35 84 02/24/25 07:15 86 18 88/51 L 87 L Room Air O2 Flow Rate 02/24/25 09:05 3 02/24/25 08:20 3 02/24/25 07:58 3 02/24/25 07:55 3 02/24/25 07:46 02/24/25 07:35 02/24/25 07:15 Laboratory Results Lab Results 02/24/25 Range/Units 07:50 WBC 8.30 (4.8-10.8) K/ul RBC 2.81 L (4.20-5.40) M/uL Hgb 8.9 L (12.0-16.0) g/dl Hct 27.9 L (37.0-47.0) % MCV 99.3 (80.0-100.0) fL MCH 31.7 (25.0-34.0) pg MCHC 31.9 L (32.0-36.0) g/dL RDW Std Deviation 54.0 H (36.4-46.3) fL RDW Coeff of Erum 15.7 H (11.5-14.5) % Plt Count 231 (130-400) K/uL MPV 9.4 (9.4-12.4) fL Immature Gran % (Auto) 0.5 % Neut % (Auto) 81.6 % Lymph % (Auto) 10.1 % [place] % (Auto) 5.5 % Eos % (Auto) 1.9 % Baso % (Auto) 0.4 % Neut # (Auto) 6.77 H (1.40-6.50) K/uL Lymph # (Auto) 0.84 L (1.20-3.40) K/uL [place] # (Auto) 0.46 (0.11-0.59) K/uL Eos # (Auto) 0.16 (0.00-0.50) K/uL Baso # (Auto) 0.03 (0.00-0.20) K/uL Immature Gran # (Auto) 0.04 (0.01-0.20) K/uL PT 11.1 (9.0-12.0) Seconds INR 1.0 (0.9-1.1) APTT 31 (21-31) Seconds PTT Ratio 1.2 Sodium 138 (136-145) mmol/L Potassium 4.2 (3.5-5.1) mmol/L Chloride 97 L (98-107) mmol/L Carbon Dioxide 31 (21-32) mmol/L Anion Gap 10 (3-11) BUN 52 H (6-23) mg/dl Creatinine 3.96 H (0.6-1.2) mg/dl Est Cr Clr Drug Dosing 13.1 ml/min eGFR 11.55 BUN/Creatinine Ratio 13.1 (10-20) Glucose 134 H (70-99(Fasting)) mg/dl Calcium 8.4 L (8.6-10.3) mg/dl Magnesium 2.2 (1.7-2.4) mg/dl Total Bilirubin 0.3 (0.2-1.0) mg/dl AST 22 (13-39) U/L ALT 16 (7-52) U/L Alkaline Phosphatase 93 (34-104) U/L Troponin I High Sens 19.0 H (0-14) pg/ml Total Protein 6.9 (6.0-8.3) gm/dl Albumin 3.2 L (3.4-5.0) gm/dl Globulin 3.7 (2.5-4.0) gm/dl Albumin/Globulin Ratio 0.9 (0.9-2) Diagnostic Findings Chest X-Ray 02/24/25 07:37 EXAM: XR chest 1V portable CLINICAL HISTORY: Syncope. TECHNIQUE: An X-ray image of the chest is obtained in AP projection. COMPARISON: 12/23/2024. FINDINGS: Pulmonary Parenchyma: Bilateral nodular opacities, few of which are ill-defined, conspicuous in the right upper mid and lower zones. Bilateral prominent bronchovascular/interstitial markings with diversion of upper lobes. Opacification of left lower zone obscuring the left costophrenic recess. Heart and Mediastinum: Cardiomegaly. No mediastinal widening or masses. No hilar or mediastinal lymphadenopathy. Bony Thorax: Bilateral degenerative changes are seen at the glenohumeral joint space. No fracture or dislocation seen. Soft Tissues: Soft tissues overlying the chest wall are unremarkable. IMPRESSION: 1. Bilateral nodular opacities, few of which are ill-defined, conspicuous in the right lung. Postinflammatory. Suggest clinical and lab correlation. 2. Cardiomegaly. 3. Comparing the previous x-ray dated 12/23/2024, there is interval progression. Electronically signed by Matheus Hernandez 02-24-2025 08:35 AM Medications Administered Discontinued Medications Sodium Chloride (Nss) 250 mls @ 999 mls/hr IV .Q16M ONE Stop: 02/24/25 07:51 Last Infusion: 02/24/25 08:53 Dose: Infused Documented By: Admin: 02/24/25 08:02 Dose: 999 mls/hr Documented By: FLAVIA Lorazepam (Lorazepam 2 Mg/1 Ml Vial) 0.25 mg IV NOW STA Stop: 02/24/25 08:15 Last Admin: 02/24/25 08:24 Dose: 0.25 mg Documented By: FLAVIA Midodrine (Midodrine Hcl 2.5 Mg Tab) 2.5 mg PO NOW STA Stop: 02/24/25 07:37 Last Admin: 02/24/25 08:02 Dose: Not Given Documented By: FLAVIA Naloxone HCl (Naloxone Hcl 0.4 Mg/1 Ml Vial/Carp) 0.4 mg IV NOW STA Stop: 02/24/25 07:42 Last Admin: 02/24/25 07:45 Dose: 0.4 mg Documented By: FLAVIA Naloxone HCl (Naloxone Hcl 0.4 Mg/1 Ml Vial/Carp) Confirm Administered Dose 0.4 mg .ROUTE .STK-MED ONE Stop: 02/24/25 07:44 Last Admin: 02/24/25 07:46 Dose: Not Given Documented By: FLAVIA Supervising Physician Co-Signing Physician Notes Patient seen and examined independently. Discussed with above provider. Patient was sent from dialysis clinic with a syncopal episode. Patient reported history of vomiting prior to arrival to the hospital. Patient has also taken Ativan and oxycodone in the morning. Patient was given Narcan for possible opioid intoxication. Patient became restless and agitated after Narcan administration and had repeated episode of nausea and vomiting. Chest x-ray showed bilateral opacities, more than right suspicious for pulmonary edema and aspiration. Patient was unable to complete dialysis session today. Patient became hypotensive, tachypneic and hypoxic. She was given to 250 cc of normal saline bolus with some improvement in the blood pressure. She was placed on Bi PAP. Discussion was done with camera control operator; she was evaluated at bedside. Phenylephrine was ordered for vasopressor support as per camera control operator recommendation. Airway clearance therapy with DuoNeb and hypertonic saline is ordered. Patient also started on Zosyn. Nephrology has been consulted for comanagement. I have reviewed the advanced practitioner's documentation, and I agree with, and take responsibility for the plan of care I spent a total of 30 minutes coordinating, documenting, and providing care for this patient excluding time spent in the performance of separately billed services. All of the aforementioned completed while collaborating with the assigned advanced practitioner for a full treatment plan (1) Aspiration pneumonia Aspiration pneumonia type: due to vomit Laterality: right Lung location: unspecified part of lung Qualified Code(s): J69.0 - Pneumonitis due to inhalation of food and vomit (2) Opiate overdose Encounter type: initial encounter Injury intent: accidental or unintentional Qualified Code(s): T40.601A - Poisoning by unspecified narcotics, accidental (unintentional), initial encounter (6) DM type 2 (diabetes mellitus, type 2) Chronic kidney disease stage: on chronic dialysis Diabetes mellitus complication detail: with chronic kidney disease Diabetes mellitus complication status: with kidney complications Diabetes mellitus mcfp insulin use: without mcfp use Qualified Code(s): E11.22 - Type 2 diabetes mellitus with diabetic chronic kidney disease; N18.6 - End stage renal disease; Z99.2 - Dependence on renal dialysis (7) Anemia Anemia type: unspecified type Qualified Code(s): D64.9 - Anemia, unspecified
[2025-02-24 10:14] LABS: Influenza A virus by PCR Negative (Neg); Influenza B virus by PCR Negative (Neg); RSV by PCR Negative (Neg); SARS CoV2 RNA(COVID-19) Ceph NEGATIVE (Negative)
--- NOTE | 2025-02-24 11:15 | Critical Care Consultation ---
Date of Consultation February 24, 2025 Assessment & Plan (1) Acute hypoxemic respiratory failure: (2) Hypovolemic shock: (3) Opiate overdose: (4) Aspiration pneumonia: (5) Chronic pain: (6) End stage renal disease on dialysis: Plan 70-year-old female with a history of moderate aortic stenosis, end-stage renal disease on chronic hemodialysis, chronic pain syndrome, depression, anxiety and RLS who presented to the hospital due to syncopal events while undergoing routine hemodialysis. Neurologic: Suspect elements of opiate overdose playing a role in patient's symptoms as she was lethargic and then more awake after Narcan in the ER. Will avoid sedating medications at this time. Consider the use of Precedex for anxiolysis. Consider the use of low-dose benzodiazepines to help prevent benzodiazepine withdrawal and gabapentin withdrawal. Obtain CT head to rule out acute intracranial pathology. Pulmonary: Chest x-ray consistent with pulmonary edema and possible aspiration pneumonitis. Continue BiPAP with low threshold for intubation if respiratory status or mental status worsens. Aspiration precautions. Patient's reports a possible history of asthma. DuoNebs as needed for bronchospasm. Cardiovascular: Patient with a history of moderate aortic valve stenosis. Repeat echocardiogram. Follow troponins and EKG. Continue telemetry monitoring. Maintain maps above 65 mmHg. Suspect an element of cardiogenic, hypovolemic and possible septic shock component. Initiate midodrine when able to take p.o. Gastrointestinal: N.p.o. for the time being. Renal: No acute indications for hemodialysis from an acid-base perspective at present. Should she become more hypoxemic, will need to consider initiation of hemodialysis while on vasopressors. Patient chronically on hemodialysis every Friday, and Friday. Obtain lactic acid level. Infectious disease: Continue Zosyn. Follow blood cultures. Hematologic: Evaluate for signs of bleeding. Follow hemoglobin. Patient with anemia of chronic disease. Endocrine: Check TSH. Maintain glucose 140-180. Lines and tubes: 22-gauge IVs in place. May need central line depending on vasopressor requirements. VTE prophylaxis: SCDs. Recheck hemoglobin. If stable, start heparin subcu for DVT prophylaxis. CODE STATUS: Full Family at bedside: updated about Disposition: ICU. Discussed with the ER physician, hospitalist physician and the ER/ICU nurse. I have personally spent 52 minutes of critical care time in the direct management of this patient. This is a life/limb threatening event. This includes time spent evaluating patient, direct bedside care, chart review, placing ord ers, interpretation of diagnostic studies, discussion with consultants, patient, and family members, as well as other required patient management activities. This time is exclusive of all separately billable procedures, and teaching time and separate from and in addition to any other critical care service time. Thank you for allowing us to participate in the care of this patient. History of Present Illness Reason for Consultation: Hypovolemic shock and acute hypoxemia requiring BiPAP History of Present Illness 70-year-old female with a history of moderate aortic stenosis, severe mitral annular calcifications, normal LVEF, pulmonary embolism, ESRD on hemodialysis an emia, hyperlipidemia and obesity presented to the ER today due to a syncopal episode while undergoing dialysis. She gets dialysis every Friday, and Friday. Additionally, this morning she had an episode of nausea and vomiting. She is chronically on benzodiazepines and oxycodone due to anxiety and pain. When she arrived to the ER she was difficult to arouse and received Narcan. After receiving Narcan she became irritable and restless and possibly had an aspiration event. She was hypotensive and hypoxemic and placed on BiPAP. When I saw the patient she was evaluated on BiPAP with an SpO2 of 98% on 40% FiO2 at BiPAP settings of 10/5. Her systolic blood pressures were in the 70s. She received 250 mL fluid bolus. I instructed bedside nursing to start the patient on peripheral phenylephrine through peripheral IV. Initial chest x-ray 02/24/2025 revealed bilateral interstitial infiltrates. Follow-up chest x-ray after receiving Narcan revealed mildly progressive interstitial opacities. MRSA screen negative on admission. Labs reveal an acute anemia of 8.9 down from baseline around 10. Platelet count normal. INR normal. Chemistries suggest chronically elevated creatinine 3.96 and elevated bicarb of 31. Troponin I was mildly elevated to 19.0. Allergies Allergy/AdvReac Type Severity Reaction Status Date / Time Sulfa (Sulfonamide Allergy Severe Face/lips/tongue Verified 10/30/24 15:19 Antibiotics) edema nitrofurantoin Allergy Intermediate Hives Verified 10/30/24 15:19 cefazolin [From Ancef] Allergy Unknown CAN'T Verified 10/30/24 15:19 REMEMBER pantoprazole [From Protonix] Allergy Unknown CAN'T Verified 10/30/24 15:19 REMEMBER methylprednisolone AdvReac Intermediate Sweating, Verified 10/30/24 15:19 [From Medrol] heart racing Home Medications Medication Instructions Recorded Confirmed Type gabapentin 100 mg capsule 100 mg PO DIRECTED 12/31/18 02/24/25 History betamethasone dipropionate 0.05 % 1 applic topical BID PRN 11/15/23 02/24/25 History topical ointment PSORIASIS/ITCHING ropinirole 2 mg tablet 2 mg PO HS 11/15/23 02/24/25 History simvastatin 20 mg tablet 20 mg PO HS 11/15/23 02/24/25 History vitamin B complex-vitamin C-folic 1 tab PO QAM 11/15/23 02/24/25 History acid 0.8 mg tablet (Anais-Federico) cholecalciferol (vitamin D3) 125 125 mcg PO UD 09/23/24 02/24/25 History mcg (5,000 unit) tablet (Vitamin D3) cinacalcet 90 mg tablet (Sensipar) 180 mg PO QPM 09/23/24 02/24/25 History epoetin beta, methoxy peg 100 100 mcg IV UD 09/23/24 02/24/25 History mcg/0.3 mL injection syringe (Mircera) iron sucrose 50 mg iron/2.5 mL 50 mg IV UD 09/23/24 02/24/25 History intravenous solution lanthanum 750 mg chewable tablet 750 mg PO TIDWMEAL 10/30/24 02/24/25 History (Fosrenol) triamcinolone acetonide 0.1 % 1 applic topical BID PRN Skin 10/30/24 02/24/25 History topical ointment Irritation midodrine 2.5 mg tablet 5 mg PO UD 12/21/24 02/24/25 History guaifenesin 600 mg tablet, 600 mg PO Q12 PRN cough/congestion 12/23/24 02/24/25 Rx extended release 12 hr (Mucinex) #30 tabs citalopram 10 mg tablet 10 mg PO DAILY 02/24/25 02/24/25 History dulaglutide 0.75 mg/0.5 mL 0.75 mg subcut WK 02/24/25 02/24/25 History subcutaneous pen injector (Trulicity) lorazepam 0.5 mg tablet 0.5 mg PO HS PRN Anxiety 02/24/25 02/24/25 History oxycodone 15 mg tablet 15 mg PO Q8H PRN Pain, Severe 02/24/25 02/24/25 History paroxetine HCl 10 mg tablet 10 mg PO DAILY 02/24/25 02/24/25 History Patient History Medical History Swelling of right upper extremity Lower urinary tract symptoms (LUTS) Hx of fall ESRD (end stage renal disease) on dialysis [facility] Chronic pain History of cellulitis Anemia Hx of gastrointestinal hemorrhage History of dialysis fistulography Ambulatory dysfunction walker-dependent Anxiety and depression RLS (restless legs syndrome) History of blood transfusion 2022 Pulmonary hypertension mild on 2020 echo Sleep apnea severe-not currently treated per pt Moderate aortic stenosis (MELCHOR 0.8 cm2, mean PG 20 mmHg) Diabetes mellitus, type 2 Limb alert care status RUE AVF Osteoporosis HLD (hyperlipidemia) Psoriasis History of renal calculi History of DVT (deep vein thrombosis) RLE, 10+ years ago, post op AC therapy x 3-6 months after > d/c'd + no issues since History of pulmonary embolus (PE) 10+ years ago, post op- no issues since Surgical History History of esophagogastroduodenoscopy (EGD) Hx of bilateral hip replacements H/O laparoscopy History of cystoscopy S/P arteriovenous (AV) fistula repair (~2020) x2 right- currently getting HD History of tooth extraction History of x 2 S/P arteriovenous (AV) fistula creation x 2 BL (non functioning on left)--left still in place not working History of colonoscopy H/O partial resection of colon (2012) For diverticulitis H/O inguinal hernia repair left S/P cholecystectomy Family History Mother Diabetes Sister Diabetes Other No family history of adverse response to anesthesia Social History Smoking Status: Never smoker Tobacco Type: Cigarettes Second Hand Exposure: No; Do You Dip or Chew Tobacco: No; Hx Alcohol Use: No Hx Substance Use: No Preferred Language: Swazi Communication Ability: Effective Tank Driver Required: No Beliefs That Will Affect Care: None marital status: Current Living Situation: Spouse Current Living Situation Comment: lives in 2 story home with , daughter and grandson How many Children do You have: 3 Feels Safe at Home: Yes Assistive Devices: Oxygen - Continuous and Walker Review of Systems Review of Systems: All systems reviewed & are unremarkable except as noted in HPI & below Physical Exam Physical Exam: Constitutional: Patient appears to be in moderate distress with a BiPAP mask in place. Lethargic. Eyes: Pupils are equal round and reactive to light. Conjunctivae are normal. Anicteric sclera. Ears nose, mouth and throat: BiPAP mask in place Neck: Trachea is midline. Visual inspection is normal. Respiratory: Bilateral wheezing and crackles. Tachypnea. Cardiovascular: Tachycardic and regular rhythm. 3 out of 6 systolic flow murmur. No edema. Gastrointestinal: Normal bowel sounds, soft, nontender and nondistended. No hepatosplenomegaly noted. Musculoskeletal: No cyanosis. Patient is able to move all extremities. Kyphoscoliosis present. Skin: No rashes, warm dry and intact. Neurologic: No obvious focal neurological deficits seen. Psychiatric: Anxious and lethargic Results & Data Results & Data Vital Signs (Past 12 Hours) Vital Signs Pulse Pulse Resp BP BP Pulse Ox O2 Del Method 02/24/25 11:05 91 H 18 81/45 L 97 BiPAP 02/24/25 10:58 94 H 18 74/45 L 96 BiPAP 02/24/25 10:50 94 H 20 67/41 L 96 BiPAP 02/24/25 10:42 111 H 26 H 96 02/24/25 10:42 111 H 26 H 84 L Nasal Cannula 02/24/25 10:35 108 H 18 77/43 L 94 BiPAP 02/24/25 10:11 115 H 18 64/38 L 93 Nasal Cannula 02/24/25 09:05 120 H 18 120/78 94 Nasal Cannula 02/24/25 08:20 115 H 25 H 142/93 H 95 Nasal Cannula 02/24/25 07:58 120 H 18 123/70 100 Nasal Cannula 02/24/25 07:55 100 Nasal Cannula 02/24/25 07:46 39 L Room Air 02/24/25 07:35 84 02/24/25 07:15 86 18 88/51 L 87 L Room Air O2 Flow Rate FiO2 02/24/25 11:05 02/24/25 10:58 02/24/25 10:50 02/24/25 10:42 40 02/24/25 10:42 5 02/24/25 10:35 02/24/25 10:11 3 02/24/25 09:05 3 02/24/25 08:20 3 02/24/25 07:58 3 02/24/25 07:55 3 02/24/25 07:46 02/24/25 07:35 02/24/25 07:15 Coding Level of Care Code 75287 CRITICAL CARE 1ST 30-74M Diagnoses Acute hypoxemic respiratory failure J96.01 Hypovolemic shock R57.1 Opiate overdose T40.601A Aspiration pneumonia J69.0 Chronic pain G89.29 End stage renal disease on dialysis N18.6; Z99.2
--- NOTE | 2025-02-24 11:17 | XRay Report ---
XR chest 1V portable CLINICAL HISTORY: repeat CXR COMPARISON STUDY: 02/24/2025 FINDINGS: There is stable prominent cardiomegaly with mild pulmonary vascular congestion. Stable to m ildly progressive diffuse pulmonary interstitial and faint patchy opacities. No lobar consolidation o r pleural effusion. No pneumothorax. IMPRESSION: Stable to mildly progressive pulmonary opacities which could represent pulmonary edema o r pneumonia. ACT 112: Negative or not required by law. Electronically signed by: Ollie Arias M.D. 02/24/2025 11:15 AM
[2025-02-24 13:14] LABS: Basophils # (auto) 0.02 K/uL (0.00-0.20); Basophils % (auto) 0.2 %; Eosinophils # (auto) 0.04 K/uL (0.00-0.50); Eosinophils % (auto) 0.3 %; Hematocrit (blood only) 31.3 % (37.0-47.0); Hemoglobin 9.7 g/dl (12.0-16.0); Immature Granulocytes # (auto) 0.09 K/uL (0.01-0.20); Immature Granulocytes % (auto) 0.7 %; Lymphocytes # (auto) 0.78 K/uL (1.20-3.40); Lymphocytes % (auto) 5.9 %; Mean Corpuscular Hemoglobin 30.9 pg (25.0-34.0); Mean Corpuscular Volume 99.7 fL (80.0-100.0); Mean Platelet Volume 9.2 fL (9.4-12.4); Monocytes # (auto) 0.55 K/uL (0.11-0.59); Monocytes % (auto) 4.2 %; Neutrophils # (auto) 11.72 K/uL (1.40-6.50); Neutrophils % (auto) 88.7 %; Platelet Count 335 K/uL (130-400); RDW Coefficient of Variation 15.9 % (11.5-14.5); RDW Standard Deviation 53.9 fL (36.4-46.3); Red Blood Count 3.14 M/uL (4.20-5.40)
--- NOTE | 2025-02-24 13:53 | CT Scan Report ---
CT SCAN OF THE BRAIN WITHOUT IV CONTRAST CLINICAL HISTORY: Altered mental status. COMPARISON STUDY: Head CT July 17, 2021. TECHNIQUE: Unenhanced axial CT scan of the brain was performed from the vertex to the skull base. A dose lowering technique was utilized adhering to the principles of ALARA. CT DOSE: 938. mGy.cm FINDINGS: Brain parenchyma: This exam is mildly compromised by motion artifact. No acute intracranial hemorrhag e, midline shift or mass effect is present. Spangler-white matter differentiation is preserved. There are no extra-axial fluid collections. There are no findings to suggest acute dural sinus thrombosis or a cute territorial infarct. Ventricles, sulci, cisterns: There is no hydrocephalus. The basal cisterns are patent. Calvarium: Unremarkable. Sinuses and mastoids: The visualized paranasal sinuses are clear. The mastoid air cells are well pneu matized. Orbits: The bony orbits are grossly intact. IMPRESSION: No acute intracranial findings. Mild motion artifact. ACT 112: Negative or not required by law. Electronically signed by: Sergo Newell M.D. 02/24/2025 1:51 PM
--- NOTE | 2025-02-24 17:29 | Nephrology Consultation ---
Date of Consultation February 24, 2025 Assessment & Plan (1) End stage renal disease on dialysis: hold off on HD for today while other clinical issues stabilize. I have followed her care through the day and been in discussions with admitting team and w/ critical care attending. HD in AM with pressor support if needed; on midodrine (2) Aspiration pneumonia: per critical care; on zosyn (3) Opiate overdose: responded to narcan; challenging situation w/ chronic pain for this pt and limited pain mgt options (4) Frequent falls: her R knee is swollen though nontender; distal RLE is red, warm and slightly swollen. L not so. also w/ recent CXR showing vertebral compression fracture as below >will review w/ covering provider re ensuring abtx cover cellulitlis >suggest r/o DVT (5) Compression fracture of body of thoracic vertebra: OP chest CT was recommended to further evaluate 02/12 T spine XR given questionable asymmetric disc space widening inferior to vertebral body > will review w/ covering provider History of Present Illness Reason for Consultation: ESRD on HD Requesting Physician: Dr Sifuentes Attending Physician: Dami Sifuentes MD History of Present Illness 70 y/o F whom I'm asked to see for ESRD on HD was admitted to ICU today for acute hypoxic respiratory failure after a syncopal episode at dialysis with concern for aspiration pneumonitis and possible opioid overdose. she felt poorly when she woke up this am to go to HD with malaise and N; and after about 20 minutes on treatment she vomited then passed out, w/ concern for aspiration. PMH includes ESRD on in center hemodialysis via AV fistula, heart failure w/ preserved EF, valvular disease including moderate aortic stenosis, type 2 diabetes, history of DVT/PE not on AC, severe sleep apnea not on OP therapy; restless leg syndrome, chronic ambulatory dysfunction/walker dependent, squamous cell carcinoma on her right hand status post excision, chronic back pain, psoriasis. She has had a challenging clinical course in 2024 with Covid pneumonia, then influenza A leading to admission for respirator failure. Frequent falls and generalized deconditioning, w/ 02/12/25 OP CXR showing age interminate vertebral compression fracture. She has longstanding signficant chronic back pain for which her opiates were stopped last July; other medications including butrans, nsaids were not enough to control pain. In addition, pt began having more anxiety on and off HD, restlessness on HD for unclear reasons (?medication issues; ? other) and had been working w/ PCP on this. She recently resumed opiates about one week ago. She dialyzes under my care at [facility] on Friday. This AM she had about 20 minutes of treatment and passed out. She was brought by ambulance to ED and plan was to admit to floor but she became hypotensive and tachycardic in ER. Received 250 mL NS bolus w/ transient improvement. She became more alert after narcan dose in ED. TTE showed progressive plm HTN, RV enlargement. Head CT unremarkable for acute pathology. In the ICU she was on bipap but transitioned to 2 L OM and low dose of neosynephrine. her OP midodrine is ordered but she is not taking po currently. she is being treated w/ zosyn, ativan. She denies uncontrolled pain currently or SOB; no n; no further malaise. no chest pain or palpitations. she does void small amounts most days but has been unable to void today. no abd pain or diarrhea. no edema. no f/c. The patient tells me she's had several recent falls, including one with wound to R knee. After one of these recent falls I did a T spine Xray which showed an age indeterminate vetebral fracture for which CT was recommended d/t questionable asymmetric vetebral widening on XR. Her daughter Rosalee is at bedside and takes me aside to state that she feels her mom has had more mental health challenges lately especially in dealing w/ her (patient's) declining functional status and worsening health issues. Allergies Allergy/AdvReac Type Severity Reaction Status Date / Time Sulfa (Sulfonamide Allergy Severe Face/lips/tongue Verified 10/30/24 15:19 Antibiotics) edema nitrofurantoin Allergy Intermediate Hives Verified 10/30/24 15:19 cefazolin [From Ancef] Allergy Unknown CAN'T Verified 10/30/24 15:19 REMEMBER pantoprazole [From Protonix] Allergy Unknown CAN'T Verified 10/30/24 15:19 REMEMBER methylprednisolone AdvReac Intermediate Sweating, Verified 10/30/24 15:19 [From Medrol] heart racing Home Medications Medication Instructions Recorded Confirmed Type gabapentin 100 mg capsule 100 mg PO DIRECTED 12/31/18 02/24/25 History betamethasone dipropionate 0.05 % 1 applic topical BID PRN 11/15/23 02/24/25 History topical ointment PSORIASIS/ITCHING ropinirole 2 mg tablet 2 mg PO HS 11/15/23 02/24/25 History simvastatin 20 mg tablet 20 mg PO HS 11/15/23 02/24/25 History vitamin B complex-vitamin C-folic 1 tab PO QAM 11/15/23 02/24/25 History acid 0.8 mg tablet (Anais-Federioc) cholecalciferol (vitamin D3) 125 125 mcg PO UD 09/23/24 02/24/25 History mcg (5,000 unit) tablet (Vitamin D3) cinacalcet 90 mg tablet (Sensipar) 180 mg PO QPM 09/23/24 02/24/25 History epoetin beta, methoxy peg 100 100 mcg IV UD 09/23/24 02/24/25 History mcg/0.3 mL injection syringe (Mircera) iron sucrose 50 mg iron/2.5 mL 50 mg IV UD 09/23/24 02/24/25 History intravenous solution lanthanum 750 mg chewable tablet 750 mg PO TIDWMEAL 10/30/24 02/24/25 History (Fosrenol) triamcinolone acetonide 0.1 % 1 applic topical BID PRN Skin 10/30/24 02/24/25 History topical ointment Irritation midodrine 2.5 mg tablet 5 mg PO UD 12/21/24 02/24/25 History guaifenesin 600 mg tablet, 600 mg PO Q12 PRN cough/congestion 12/23/24 02/24/25 Rx extended release 12 hr (Mucinex) #30 tabs citalopram 10 mg tablet 10 mg PO DAILY 02/24/25 02/24/25 History dulaglutide 0.75 mg/0.5 mL 0.75 mg subcut WK 02/24/25 02/24/25 History subcutaneous pen injector (Trulicity) lorazepam 0.5 mg tablet 0.5 mg PO HS PRN Anxiety 02/24/25 02/24/25 History oxycodone 15 mg tablet 15 mg PO Q8H PRN Pain, Severe 02/24/25 02/24/25 History paroxetine HCl 10 mg tablet 10 mg PO DAILY 02/24/25 02/24/25 History Patient History Medical History Swelling of right upper extremity Lower urinary tract symptoms (LUTS) Hx of fall ESRD (end stage renal disease) on dialysis Diaylsis Tues/Thurs/Sat- [facility] Follows with Dr. Perez Chronic pain History of cellulitis Anemia Hx of gastrointestinal hemorrhage History of dialysis fistulography Ambulatory dysfunction walker-dependent Anxiety and depression RLS (restless legs syndrome) History of blood transfusion 2022 Pulmonary hypertension mild on 2020 echo Sleep apnea severe-not currently treated per pt Moderate aortic stenosis (MELCHOR 0.8 cm2, mean PG 20 mmHg) Diabetes mellitus, type 2 Limb alert care status RUE AVF Osteoporosis HLD (hyperlipidemia) Psoriasis History of renal calculi History of DVT (deep vein thrombosis) RLE, 10+ years ago, post op AC therapy x 3-6 months after > d/c'd + no issues since History of pulmonary embolus (PE) 10+ years ago, post op- no issues since Surgical History History of esophagogastroduodenoscopy (EGD) Hx of bilateral hip replacements H/O laparoscopy History of cystoscopy S/P arteriovenous (AV) fistula repair (~2020) x2 right- currently getting HD History of tooth extraction History of x 2 S/P arteriovenous (AV) fistula creation x 2 BL (non functioning on left)--left still in place not working History of colonoscopy H/O partial resection of colon (2012) For diverticulitis H/O inguinal hernia repair left S/P cholecystectomy Family History Mother Diabetes Sister Diabetes Other No family history of adverse response to anesthesia Social History Smoking Status: Never smoker Tobacco Type: Cigarettes Second Hand Exposure: No; Do You Dip or Chew Tobacco: No; Hx Alcohol Use: No Hx Substance Use: No Preferred Language: Amharic Communication Ability: Effective Bicycle Taxi Driver Required: No Beliefs That Will Affect Care: None marital status: Current Living Situation: Spouse Current Living Situation Comment: lives in 2 story home with , daughter and grandson How many Children do You have: 3 Other Information That Helps Us Care for You: No Feels Safe at Home: Yes Safety Concerns: Feels Safe At This Time Assistive Devices: Denture - Upper, Denture - Lower and Walker Review of Systems 2 Review of Systems: All systems reviewed & are unremarkable except as noted in HPI & below Physical Exam 2 Constitutional: well developed, + physical limitations, + frail appearing, well groomed and cooperative; no acute distress Eyes: EOM intact bilaterally ENMT: Mouth: + dry oral mucous membranes Respiratory: normal respiratory effort Auscultation: + diminished lung sounds (coarse BS) Gastrointestinal (Abdomen): Inspection/Auscultation: normal bowel sounds P ercussion/Palpation: abdomen soft; abdomen nontender Musculoskeletal: Extremities: strength 5/5 throughout distal RLE swollen, red hot; R knee enlarged and scabbed, no RLE tenderness Skin: no rashes, warm and dry Neurologic: valdez, fluent speech, no tremor Psychiatric: Orientation: alert and oriented x 3 Results & Data Vital Signs (Past 12 Hours) Vital Signs Temp Pulse Pulse Resp BP BP Pulse Ox 02/24/25 16:00 75 02/24/25 15:43 105/50 L 02/24/25 15:24 75 24 02/24/25 15:06 65 16 97 02/24/25 15:00 79/51 L 02/24/25 14:54 68 22 95 02/24/25 14:00 95/48 L 02/24/25 14:00 71 12 02/24/25 13:08 98/51 L 02/24/25 13:00 77 19 100 02/24/25 12:53 36.4 C L 75 13 99 02/24/25 12:00 75 02/24/25 12:00 02/24/25 11:45 92 H 16 100 02/24/25 11:28 88 18 89/49 L 100 02/24/25 11:15 85 22 85/45 L 100 02/24/25 11:05 91 H 18 81/45 L 97 02/24/25 10:58 94 H 18 74/45 L 96 02/24/25 10:50 94 H 20 67/41 L 96 02/24/25 10:42 111 H 26 H 96 02/24/25 10:42 111 H 26 H 84 L 02/24/25 10:35 108 H 18 77/43 L 94 02/24/25 10:11 115 H 18 64/38 L 93 02/24/25 09:05 120 H 18 120/78 94 02/24/25 08:20 115 H 25 H 142/93 H 95 02/24/25 07:58 120 H 18 123/70 100 02/24/25 07:55 100 02/24/25 07:46 39 L 02/24/25 07:35 84 02/24/25 07:15 86 18 88/51 L 87 L O2 Del Method O2 Flow Rate FiO2 02/24/25 16:00 02/24/25 15:43 02/24/25 15:24 02/24/25 15:06 02/24/25 15:00 02/24/25 14:54 02/24/25 14:00 02/24/25 14:00 02/24/25 13:08 02/24/25 13:00 02/24/25 12:53 BiPAP 40 02/24/25 12:00 02/24/25 12:00 BiPAP 40 02/24/25 11:45 40 02/24/25 11:28 BiPAP 02/24/25 11:15 BiPAP 02/24/25 11:05 BiPAP 02/24/25 10:58 BiPAP 02/24/25 10:50 BiPAP 02/24/25 10:42 40 02/24/25 10:42 Nasal Cannula 5 02/24/25 10:35 BiPAP 02/24/25 10:11 Nasal Cannula 3 02/24/25 09:05 Nasal Cannula 3 02/24/25 08:20 Nasal Cannula 3 02/24/25 07:58 Nasal Cannula 3 02/24/25 07:55 Nasal Cannula 3 02/24/25 07:46 Room Air 02/24/25 07:35 02/24/25 07:15 Room Air Laboratory Results 02/24/25 12:52 02/24/25 07:50 Diagnostic Findings TTE 02/24/25 EF 55-60%, still moderate ; more now moderate RV enlargement with moderate pulmonary HTN CXR > plm edema v pna head CT no acute IC process (2) Aspiration pneumonia Aspiration pneumonia type: due to vomit Laterality: right Lung location: u nspecified part of lung Qualified Code(s): J69.0 - Pneumonitis due to inhalation of food and vomit (3) Opiate overdose Encounter type: initial encounter Injury intent: accidental or unintentional Qualified Code(s): T40.601A - Poisoning by unspecified narcotics, accidental (unintentional), initial encounter
[2025-02-25 05:26] LABS: Basophils # (auto) 0.07 K/uL (0.00-0.20); Basophils % (auto) 0.9 %; Immature Granulocytes # (auto) 0.04 K/uL (0.01-0.20); Immature Granulocytes % (auto) 0.5 %; Lymphocytes # (auto) 1.18 K/uL (1.20-3.40); Lymphocytes % (auto) 14.6 %; Mean Corpuscular Hemoglobin 31.9 pg (25.0-34.0); Mean Corpuscular Volume 102.8 fL (80.0-100.0); Mean Platelet Volume 9.3 fL (9.4-12.4); Monocytes # (auto) 0.63 K/uL (0.11-0.59); Monocytes % (auto) 7.8 %; Neutrophils # (auto) 5.76 K/uL (1.40-6.50); Neutrophils % (auto) 71.2 %; Platelet Count 309 K/uL (130-400); RDW Coefficient of Variation 16.4 % (11.5-14.5); RDW Standard Deviation 58.3 fL (36.4-46.3); Red Blood Count 2.82 M/uL (4.20-5.40); White Blood Count 8.08 K/ul (4.8-10.8)
[2025-02-25 05:53] LABS: BUN Creatinine Ratio 12.2 (10-20); Calcium 7.9 mg/dl (8.6-10.3); Creatinine Clr Calc Pharmacy 10.2 ml/min; Magnesium 2.4 mg/dl (1.7-2.4); Phosphorus 7.8 mg/dl (2.5-4.9); Potassium 5.1 mmol/L (3.5-5.1)
--- NOTE | 2025-02-25 09:06 | Critical Care Progress Note ---
Date of Service February 25, 2025 Assessment & Plan (1) Acute hypoxemic respiratory failure: (2) Hypovolemic shock: (3) Opiate overdose: (4) Aspiration pneumonia: (5) Chronic pain: (6) End stage renal disease on dialysis: Plan 70-year-old female with a history of moderate aortic stenosis, end-stage renal disease on chronic hemodialysis, chronic pain syndrome, depression, anxiety and RLS who presented to the hospital due to syncopal events while undergoing routine hemodialysis. Neurologic: Suspect elements of opiate overdose playing a role in patient's symptoms as she was lethargic and then more awake after Narcan in the ER. Will avoid sedating medications at this time. Consider the use of low-dose benzodiazepines to help prevent benzodiazepine withdrawal and gabapentin withdrawal. Obtain CT head to rule out acute intracranial pathology. Pulmonary: Chest x-ray consistent with pulmonary edema and possible aspiration pneumonitis. Aspiration precautions. Patient's reports a possible history of asthma. DuoNebs as needed for bronchospasm. Cardiovascular: Patient with a history of moderate aortic valve stenosis. Repeat echo shows worsening pulmonary hypertension. Follow troponins and EKG. Continue telemetry monitoring. Maintain maps above 65 mmHg. Suspect an element of cardiogenic, hypovolemic and possible septic shock component. Start midodrine. Obtain CT chest to rule out PE in light of increasing pressor requirements and pulm hypertension noted on echo. Risks and benefits discussed with patient. Discussed with nephrology who is in agreement with proceeding with a CT chest with contrast. Gastrointestinal: Advance diet as tolerated. Renal: Patient to undergo hemodialysis today which may be tenuous in light of the patient's hypotension. Infectious disease: Continue Zosyn for possible aspiration pneumonia. Follow blood cultures. Concern for possible right knee cellulitis. Patient started on daptomycin overnight which I have discontinued. I do not see any obvious evidence of cellulitis over the right knee at this time. Follow blood cultures. Obtain urine cultures. Hematologic: Evaluate for signs of bleeding. Follow hemoglobin. Patient with anemia of chronic disease. Endocrine: TSH normal. Maintain glucose 140-180. Lines and tubes: 22-gauge IVs in place. May need central line depending on vasopressor requirements. VTE prophylaxis: SCDs. Start subcu heparin after placement of arterial line. CODE STATUS: Full Family at bedside: No family present at bedside currently. Disposition: ICU. I have personally spent 38 minutes of critical care time in the direct management of this patient. This is a life/limb threatening event. This includes time spent evaluating patient, direct bedside care, chart review, placing orders, interpretation of diagnostic studies, discussion with consultants, patient, and family members, as well as other required patient management activities. This time is exclusive of all separately billable procedures, and teaching time and separate from and in addition to any other critical care service time. Thank you for allowing us to participate in the care of this patient. Admission and Anticipated Discharge Date Admission Date: February 24, 2025 Subjective Patient seen and examined. More awake today. Requiring higher doses of phenylephrine. Denies any chest pain, nausea, vomiting or headaches. Patient was started on daptomycin overnight due to concerns of possible right knee cellulitis. Review of Systems Review of Systems: All systems reviewed & are unremarkable except as noted in HPI & below Physical Exam Physical Exam: Constitutional: Patient appears to be in no apparent distress. Eyes: Pupils are equal round and reactive to light. Conjunctivae are normal. Anicteric sclera. Ears nose, mouth and throat: Oxygen mask in place. Neck: Trachea is midline. Visual inspection is normal. Respiratory: Bilateral wheezing and crackles. Tachypnea. Cardiovascular: Regular rate and rhythm. 3 out of 6 systolic flow murmur. No edema. Gastrointestinal: Normal bowel sounds, soft, nontender and nondistended. No hepatosplenomegaly noted. Musculoskeletal: No cyanosis. Patient is able to move all extremities. Kyphoscoliosis present. Eschar noted over the right knee. Skin: No rashes, warm dry and intact. Neurologic: No obvious focal neurological deficits seen. Psychiatric: Anxious and lethargic Results & Data Results & Data Vital Signs (Past 12 Hours) Vital Signs Temp Pulse Pulse Resp BP BP Pulse Ox 02/25/25 08:00 02/25/25 08:00 02/25/25 08:00 02/25/25 08:00 72 02/25/25 08:00 72 20 94 02/25/25 07:00 36.8 C 75 20 81/40 L 93 02/25/25 06:36 83/50 L 02/25/25 06:06 72 16 94/51 L 95 02/25/25 05:30 79 25 H 111/48 L 98 02/25/25 05:00 82 18 105/53 L 92 02/25/25 04:38 82 24 91/51 L 91 02/25/25 04:04 36.9 C 02/25/25 04:04 69 14 85/59 L 96 02/25/25 03:30 85/48 L 02/25/25 03:00 67 15 82/44 L 100 02/25/25 02:30 66 14 82/42 L 97 02/25/25 02:04 69 13 90/48 L 97 02/25/25 01:30 80/40 L 02/25/25 01:07 66 18 84/42 L 96 02/25/25 00:00 36.8 C 02/25/25 00:00 63 16 89/47 L 97 02/25/25 00:00 66 02/24/25 23:33 65 104/69 02/24/25 23:00 67 12 90/41 L 95 02/24/25 22:31 107/50 L 02/24/25 22:04 67 18 85/49 L 97 02/24/25 22:00 72 22 85/49 L 97 02/24/25 21:31 67 87/46 L 99 Pulse Ox O2 Del Method O2 Del Method O2 Flow Rate O2 Flow Rate 02/25/25 08:00 Nasal Cannula 2 02/25/25 08:00 95 Nasal Cannula 2 02/25/25 08:00 Nasal Cannula 02/25/25 08:00 02/25/25 08:00 Nasal Cannula 2 02/25/25 07:00 Room Air 02/25/25 06:36 02/25/25 06:06 Nasal Cannula 2 02/25/25 05:30 Nasal Cannula 2 02/25/25 05:00 Nasal Cannula 2 02/25/25 04:38 Nasal Cannula 2 02/25/25 04:04 02/25/25 04:04 Nasal Cannula 2 02/25/25 03:30 02/25/25 03:00 Nasal Cannula 2 02/25/25 02:30 Nasal Cannula 2 02/25/25 02:04 Nasal Cannula 2 02/25/25 01:30 02/25/25 01:07 Nasal Cannula 2 02/25/25 00:00 02/25/25 00:00 Nasal Cannula 2 02/25/25 00:00 02/24/25 23:33 02/24/25 23:00 Nasal Cannula 2 02/24/25 22:31 02/24/25 22:04 Nasal Cannula 2 02/24/25 22:00 Nasal Cannula 2 02/24/25 21:31 Nasal Cannula 2 Coding Level of Care Code 38943 CRITICAL CARE 1ST 30-74M Diagnoses Acute hypoxemic respiratory failure J96.01 Hypovolemic shock R57.1 Opiate overdose, accidental or unintentional, initial encounter T40.601A Encounter type: initial encounter Injury intent: accidental or unintentional Aspiration pneumonia of right lung due to vomit, unspecified part of lung J69.0 Aspiration pneumonia type: due to vomit Laterality: right Lung location: unspecified part of lung Chronic pain G89.29 End stage renal disease on dialysis N18.6; Z99.2 (3) Opiate overdose Encounter type: initial encounter Injury intent: accidental or unintentional Qualified Code(s): T40.601A - Poisoning by unspecified narcotics, accidental (unintentional), initial encounter (4) Aspiration pneumonia Aspiration pneumonia type: due to vomit Laterality: right Lung location: unspecified part of lung Qualified Code(s): J69.0 - Pneumonitis due to inhalation of food and vomit
--- NOTE | 2025-02-25 10:13 | Hospitalist Progress Note ---
Date of Service February 25, 2025 Assessment & Plan (1) Aspiration pneumonia: (2) Opiate overdose: (3) Hypovolemic shock: (4) Elevated troponin I level: (5) End stage renal disease on dialysis: (6) DM type 2 (diabetes mellitus, type 2): (7) Anemia: Plan This is a 70 y/o female with ESRD on HD, DM2, hx PE, anemia in ESRD, psoriasis, hyperlipidemia, and other history as outlined below who presented to the ED from HD today with a syncopal episode. Pt notes episode of vomiting early this morning before HD. Upon initial presentation, pt was noted to be hypotensive and hypoxic and was given Narcan in the ED as well as a dose of midodrine and 250 cc bolus with improvement of BP, initiation of O2 with improvement of hypoxia. However, after Narcan, pt with significant agitation and tremulousness. Referred for admission for further management. Chest x-ray concerning for potential aspiration. Escalating need for respiratory support in the ED - supplemental O2 via NC, then escalation to BiPAP. Attending spoke with drapery estimator who will evaluate pt in the ED regarding need for additional respiratory support. Patient was then admitted to ICU for pressor requirement and need for persistent BiPAP. #Aspiration pneumonia #Acute Hypoxic respiratory failure Possible Septic shock, POA Patient presented to the hospital from dialysis clinic with a syncopal episode. She had episode of nausea and vomiting. Given Narcan for possible opioid overdose. Was hypotensive, hypoxic requiring vasopressors and BiPAP respectively in the ED. admitted to ICU Chest x-ray shows pulmonary edema and increased infiltrate on right side Echo shows EF of 55 to 60% with grade 2 diastolic dysfunction. pulm htn Continue hemodynamic support with vasopressors. Midodrine added Continue Zosyn for aspiration pneumonia. Hypertonic saline, DuoNebs for urinary clearance. Plan to obtain CTA to rule out PE #Possible opioid overdose - received Narcan in the ED, Plan to resume home opioids; will likely benefit addiction medicine referral as outpatient #ESRD on HD-Dialysis as per nephrology, #Type 2 Diabetes - BSG ACHS - Diabetic diet Hyperlipidemiacontinue simvastatin Mood disorderrcontinue on home meds #Anemia - Chronic related to ESRD - no evidence of active bleeding at present Full code DVT prophylaxis heparin Time spent evaluating patient, direct bedside care, chart review, placing orders, interpretation of diagnostic studies, discussion with consultants, patient, as well as other required patient management activities is 50 minutes Please note the above document was generated using voice recognition software. It may contain grammatical, syntax or spelling errors. Any formal questions or concerns about the content, text or information contained within the body of this dictation should be directly addressed to the provider for clarification Admission and Anticipated Discharge Date Admission Date: February 24, 2025 Subjective Patient seen and examined at bedside. She has been weaned down to 2 L of oxygen by nasal cannula. However, pressures requirement still present and is on phenylephrine Mentation much clearer and patient is alert oriented x 3. Review of Systems Review of Systems: All systems reviewed & are unremarkable except as noted in Subjective Physical Exam Physical Exam: Constitutional: Awake, alert oriented x 3. Respiratory: Bilateral basal crackles present. Occasional rhonchi. Cardiovascular: RRR, no murmur, no edema Vessels: no JVD or carotid bruit Chest: normal inspection of chest Abdomen: normal bowel sounds, soft, nontender, no hepatosplenomegaly Musculoskeletal: no cyanosis or clubbing, extremities motor strength 5/5 Skin: no rashes, warm and dry normal turgor Neurologic: PERRL, EOMI, accommodation nl, no face palsy, no dysarthria CN's II- XI intact bilaterally and moves all extremities Results & Data Results & Data Vital Signs (Past 12 Hours) Vital Signs Temp Pulse Pulse Resp BP BP Pulse Ox 02/25/25 08:00 02/25/25 08:00 02/25/25 08:00 02/25/25 08:00 72 02/25/25 08:00 72 20 94 02/25/25 07:00 36.8 C 75 20 81/40 L 93 02/25/25 06:36 83/50 L 02/25/25 06:06 72 16 94/51 L 95 02/25/25 05:30 79 25 H 111/48 L 98 02/25/25 05:00 82 18 105/53 L 92 02/25/25 04:38 82 24 91/51 L 91 02/25/25 04:04 36.9 C 02/25/25 04:04 69 14 85/59 L 96 02/25/25 03:30 85/48 L 02/25/25 03:00 67 15 82/44 L 100 02/25/25 02:30 66 14 82/42 L 97 02/25/25 02:04 69 13 90/48 L 97 02/25/25 01:30 80/40 L 02/25/25 01:07 66 18 84/42 L 96 02/25/25 00:00 36.8 C 02/25/25 00:00 63 16 89/47 L 97 02/25/25 00:00 66 02/24/25 23:33 65 104/69 02/24/25 23:00 67 12 90/41 L 95 02/24/25 22:31 107/50 L Pulse Ox O2 Del Method O2 Del Method O2 Flow Rate O2 Flow Rate 02/25/25 08:00 Nasal Cannula 2 02/25/25 08:00 95 Nasal Cannula 2 02/25/25 08:00 Nasal Cannula 02/25/25 08:00 02/25/25 08:00 Nasal Cannula 2 02/25/25 07:00 Room Air 02/25/25 06:36 02/25/25 06:06 Nasal Cannula 2 02/25/25 05:30 Nasal Cannula 2 02/25/25 05:00 Nasal Cannula 2 02/25/25 04:38 Nasal Cannula 2 02/25/25 04:04 02/25/25 04:04 Nasal Cannula 2 02/25/25 03:30 02/25/25 03:00 Nasal Cannula 2 02/25/25 02:30 Nasal Cannula 2 02/25/25 02:04 Nasal Cannula 2 02/25/25 01:30 02/25/25 01:07 Nasal Cannula 2 02/25/25 00:00 02/25/25 00:00 Nasal Cannula 2 02/25/25 00:00 02/24/25 23:33 02/24/25 23:00 Nasal Cannula 2 02/24/25 22:31 (1) Aspiration pneumonia Aspiration pneumonia type: due to vomit Laterality: right Lung location: unspecified part of lung Qualified Code(s): J69.0 - Pneumonitis due to inhalation of food and vomit (2) Opiate overdose Encounter type: initial encounter Injury intent: accidental or unintentional Qualified Code(s): T40.601A - Poisoning by unspecified narcotics, accidental (unintentional), initial encounter (6) DM type 2 (diabetes mellitus, type 2) Diabetes mellitus rat exterminator insulin use: without rat exterminator use Diabetes mellitus complication status: with kidney complications Diabetes mellitus complication detail: with chronic kidney disease Chronic kidney disease stage: on chronic dialysis Qualified Code(s): E11.22 - Type 2 diabetes mellitus with diabetic chronic kidney disease; N18.6 - End stage renal disease; Z99.2 - Dependence on renal dialysis (7) Anemia Anemia type: unspecified type Qualified Code(s): D64.9 - Anemia, unspecified
--- NOTE | 2025-02-25 11:39 | Procedure Note ---
Procedure Note Date of Service February 25, 2025 FEMORAL CENTRAL LINE PROCEDURE NOTE: Procedure: Femoral Central Line Placement Attending: Dr. Dr. Chavez Maldonado MD APC: LORETTA Andrew Indication: Central Drug Administration, Poor Venous Access, Multiple Lab Draws Necessary, etc. Anesthesia: []None/[]Lidocaine 1% Consent was signed and placed on the chart prior to procedure. Indication, risks, and benefits were explained at length. A time-out was completed verifying correct patient, procedure, site, positioning, and implants(s) or special equipment if applicable. Patients [] Groin was cleansed and draped in the typical sterile fashion using Chloraprep. The Femoral Vein and Femoral Artery were identified using ultrasound. The superficial tissue was anesthetized using 4 mL of 1% lidocaine without epinephrine under direct visualization with the ultrasound. After adequate anesthetization was achieved, the Femoral Vein was cannulated under direct ultrasound guidance using an introducer needle on a syringe. Good venous blood return was maintained prior to removal of syringe from introducer needle. Using Seldinger Technique, a guide wire was advanced through the introducer needle without resistance. The introducer needle was removed and ultrasound images were obtained of the guide wire within the Femoral Vein and saved to the patients medical record. []A small incision was made in penetrating fashion at the guide wire insertion site utilizing an 11 blade scalpel. The dilator was advanced to the vessel without resistance. The dilator was exchanged for the triple lumen catheter which was advanced into the vessel without resistance. The guide wire was removed intact from the catheter without issue. Claves were placed on each catheter tip with confirmation of good blood flow from each lumen. Each port was easily flushed with sterile saline. The catheter was placed at the hub and sutured in place. BioPatch was applied to the catheter and a sterile Tegaderm dressing was applied over the catheter with careful attention to sterility. Patient tolerated procedure well. No immediate complications were met. Procedural Ultrasound Guidance: Yes Procedure Date: 02/25/2025 Indication: IV access/IV infusions Attending: Dr. Chavez Maldonado MD APC: Flaco BURGOS Artery AND Vein visualized: Yes Compressible Vein: yes Guidewire or Short Catheter seen in vein prior to dilation: Yes Line confirmed in Vein with ultrasound: Yes [facility] [place] Codes (Charges) Tubes, Drains, and Vasc Access Procedure 1: Tubes, Drains, and Vasc Access: [id number] Insertion Of Non-tunneled Catheter Age 4 Yrs> Coding CPT Codes Tubes, Drains, and Vasc Access - Tubes, Drains, and Vasc Access: [id number] Insertion Of Non-tunneled Catheter Age 4 Yrs> ([id number]) Additional Codes Date of Service ([facility].SURGERY)
--- NOTE | 2025-02-25 11:52 | Procedure Note ---
Procedure Note Date of Service February 25, 2025 ARTERIAL LINE PROCEDURE NOTE: Procedure: Femoral Arterial Line Placement Attending: Dr. Chavez Maldonado MD APC: LORETTA Andrew Indication: Monitoring on Pressors/Frequent labs Anesthesia: Lidocaine 1% []Consent was signed and placed on the chart prior to procedure. Indication, risks, and benefits were explained at length. A time-out was completed verifying correct patient, procedure, site, positioning, and implant(s) or special equipment if applicable. Allens test was performed to ensure adequate perfusion. Patients [] wrist was prepped and draped in the usual sterile fashion. Ultrasound guidance was used to aid needle placement. A 20g Arrow arterial line was introduced into the [] artery. Catheter was threaded, and the needle was removed with appropriate blood return. Good waveform was observed. The patient tolerated the procedure well. []Confirmation of placement with ultrasound. []Images saved to medical record. Blood Loss: Minimal Complications: None Procedural Ultrasound Guidance: Procedure Date: [] Indication: [] Attending: [] APC: [] Artery Identified: YES Line confirmed in Artery with ultrasound: [] Complications: NONE Patient tolerated procedure: WELL Coding Additional Codes Date of Service ([facility].SURGERY)
--- NOTE | 2025-02-25 12:09 | Procedure Note ---
Procedure Note Date of Service February 25, 2025 FEMORAL CENTRAL LINE PROCEDURE NOTE: Procedure: Femoral Central Line Placement Attending: Dr. Chavez Maldonado MD APC: LORETTA Andrew Indication: Central Drug Administration, Poor Venous Access, Multiple Lab Draws Necessary, etc. Anesthesia: Lidocaine 1% Consent was signed and placed on the chart prior to procedure. Indication, risks, and benefits were explained at length. A time-out was completed verifying correct patient, procedure, site, po sitioning, and implants(s) or special equipment if applicable. Patients right Groin was cleansed and draped in the typical sterile fashion using Chloraprep. The Femoral Vein and Femoral Artery were identified using ultrasound. The superficial tissue was anesthetized using 4 mL of 1% lidocaine without epinephrine under direct visualization with the ultrasound. After adequate anesthetization was achieved, the Femoral Vein was cannulated under direct ultrasound guidance using an introducer needle on a syringe. Good venous blood return was maintained prior to removal of syringe from introducer needle. Using Seldinger Technique, a guide wire was advanced through the introducer needle without resistance. The introducer needle was removed and ultrasound images were obtained of the guide wire within the Femoral Vein and saved to the patients medical record. A small incision was made in penetrating fashion at the guide wire insertion site utilizing an 11 blade scalpel. The dilator was advanced to the vessel without resistance. The dilator was exchanged for the triple lumen catheter which was advanced into the vessel without resistance. The guide wire was removed intact from the catheter without issue. Claves were placed on each catheter tip with confirmation of good blood flow from each lumen. Each port was easily flushed with sterile saline. The catheter was placed at the hub and villanueva tured in place. BioPatch was applied to the catheter and a sterile Tegaderm dressing was applied over the catheter with careful attention to sterility. Patient tolerated procedure well. No immediate complications were met. Images obtained are saved for permanent record Procedural Ultrasound Guidance: Yes Procedure Date: 02/25/2025 @ 1047 Indication: IV infusions& vasopressors/IV access Attending: Dr. Chavez Maldonado MD APC: LORETTA Reese Artery AND Vein visualized: Yes Compressible Vein: Yes Guidewire or Short Catheter seen in vein prior to dilation: Yes Line confirmed in Vein with ultrasound: Yes [facility] [place] Procedure Codes (Charges) Tubes, Drains, and Vasc Access Procedure 1: Tubes, Drains, and Vasc Access: [id number] Insertion Of Non-tunneled Catheter Age 4 Yrs> Coding CPT Codes Tubes, Drains, and Vasc Access - Tubes, Drains, and Vasc Access: [id number] Insertion Of Non-tunneled Catheter Age 4 Yrs> ([id number]) Additional Codes Date of Service ([facility].SURGERY)
--- NOTE | 2025-02-25 12:13 | CT Scan Report ---
CT ANGIOGRAM OF THE CHEST CLINICAL HISTORY: Shortness of breath. Evaluate for pulmonary embolus. COMPARISON STUDY: Chest radiograph February 24, 2025 at 10:43 AM. TECHNIQUE: Following the IV administration of 112 cc of Optiray 320, CT angiogram of the chest was pe rformed from the upper abdomen to the thoracic inlet utilizing the pulmonary embolus protocol. Images are reviewed in the axial, sagittal, and coronal planes. 3-D MIPS images are created and assessed. I V contrast was administered without complication. A dose lowering technique was utilized adhering to the principles of ALARA. CT DOSE: 807.32 mGy.cm FINDINGS: No pulmonary emboli are identified although the subsegmental pulmonary arteries are subopti brynn assessed due to respiratory motion. There is no thoracic aortic dissection. There are several m ildly enlarged mediastinal and bilateral hilar lymph nodes. Index right paratracheal lymph node measu res 1.6 cm in short axis diameter. There is no pneumothorax. Moderate right and small left pleural ef fusions are present. Associated subpleural lower lobe opacities represent atelectasis. Interlobular s eptal thickening and groundglass opacities within the lungs are present. There are no suspicious pulm onary nodules. There is reflux of contrast into the IVC and hepatic veins. Left renal atrophy is inci dentally noted. There is anasarca. IMPRESSION: 1. No pulmonary emboli identified although subsegmental pulmonary arteries suboptimally assessed. 2. Cardiomegaly with pulmonary edema. Moderate right and small left pleural effusions. Associated low er lobe opacities represent atelectasis. No consolidation to suggest pneumonia. ACT 112: Negative or not required by law. Electronically signed by: Sergo Newell M.D. 02/25/2025 12:12 PM
--- NOTE | 2025-02-25 12:18 | Procedure Note ---
Procedure Note Date of Service February 25, 2025 ARTERIAL LINE PROCEDURE NOTE: Procedure: Arterial Line Placement Attending: Dr. Chavez Maldonado MD APC: Flaco BURGOS Indication: Monitoring on Pressors/Frequent labs Anesthesia: Lidocaine 1% Consent was signed and placed on the chart prior to procedure. Indication, risks, and benefits were explained at length. A time-out was completed verifying correct patient, procedure, site, positioning, and implant(s) or special equipment if applicable. Allens test was performed to ensure adequate perfusion. Patients right groin was prepped and draped in the usual sterile fashion. Ultrasound guidance was used to aid needle placement. A 20g Arrow arterial line was introduced into the Femoral artery. Catheter was threaded, and the needle was removed with appropriate blood return. Good waveform was observed. The patient tolerated the procedure well. Confirmation of placement with ultrasound. Blood Loss: Minimal Complications: None Procedural Ultrasound Guidance: Procedure Date: 02/25/2025 @ 1115 Indication: Monitoring on Pressors/Frequent labs Attending: Monitoring on Pressors/Frequent labs APC: LORETTA Andrew Artery Identified: YES Line confirmed in Artery with ultrasound: Yes Complications: NONE Patient tolerated procedure: WELL [facility] Procedure Codes (Charges) Tubes, Drains, and Vasc Access Procedure 2: Tubes, Drains, and Vasc Access: [id number] Arterial Cath/Cannulation Sampling/Monitoring/Transfusion Coding CPT Codes Tubes, Drains, and Vasc Access - Tubes, Drains, and Vasc Access: [id number] Arterial Cath/Cannulation Sampling/Monitoring/Transfusion ([id number]) Additional Codes Date of Service ([facility].SURGERY)
[2025-02-25 14:15] LABS: Hep B Surface Ag with confirm Negative (Negative)
[2025-02-25 14:24] LABS: Hepatitis B Surface Antibody Immune
[2025-02-25 17:37] LABS: Appearance Urine Turbid (Clear); Bacteria Urine Automated 4+ (None Seen); Bilirubin Urine Negative (Negative); Blood Urine 3+ (Negative); Cast Urine Automated >20 /lpf (0-2); Color Urine Yellow; Epithelial Cell Urine Auto >20 /hpf (0-2); Glucose Urine UA Negative (Negative); Ketones Urine Negative (Negative); Leukocyte Esterase Urine 3+ (Negative); Nitrite Urine Negative (Negative); Protein Urine 3+ (Negative); RBC Urine Automated >20 /hpf (0-2); Specific Gravity Urine 1.013 (1.000-1.030); Urobilinogen Urine Negative (Negative); WBC Urine Automated >50 /hpf (0-5)
--- NOTE | 2025-02-25 18:57 | Nephrology Progress Note ---
Date of Service February 25, 2025 Assessment & Plan (1) End stage renal disease on dialysis: Plan: HD today done after CT chest, which r/o PE. concern her hypotension may stem from worsening RH function in setting of plm HTN. I have followed her care through the day and been in discussions with admitting team and w/ critical care attending. HD in AM with pressor support if needed; on midodrine (2) Aspiration pneumonia: Plan: per critical care; on zosyn (3) Opiate overdose: Plan: responded to narcan; challenging situation w/ chronic pain for this pt and limited pain mgt options >> at some point ?kyphoplasty T spine? (4) Frequent falls: Plan: her R knee is swollen though nontender; distal RLE is red, warm and slightly swollen. L not so. also w/ recent CXR showing vertebral compression fracture as below (5) Compression fracture of body of thoracic vertebra: Plan: OP chest CT was recommended to further evaluate 02/12 T spine XR given questionable asymmetric disc space widening inferior to vertebral body > at some point suggest full spinal assessment w/ CT and ? eval for kyphoplasty T spine Admission and Anticipated Discharge Date Admission Date: February 24, 2025 Subjective tolerated HD well today but still pressor dependent; had 3L UF; c/o some groin pain at line sites and diffuse ongoing back pain Review of Systems 2 Review of Systems: All systems reviewed & are unremarkable except as noted in Subjective Physical Exam 2 Constitutional: well developed, + physical limitations, + frail appearing, well groomed and cooperative; no acute distress Eyes: EOM intact bilaterally ENMT: Mouth: + dry oral mucous membranes Respiratory: normal respiratory effort Auscultation: + diminished lung sounds Gastrointestinal (Abdomen): Inspection/Auscultation: normal bowel sounds P ercussion/Palpation: abdomen soft; abdomen nontender Musculoskeletal: Extremities: strength 5/5 throughout Skin: no rashes, warm and dry Psychiatric: Orientation: alert and oriented x 3 Results & Data Vital Signs (Past 12 Hours) Vital Signs Temp Pulse Pulse Resp BP BP BP 02/25/25 17:20 79 15 02/25/25 17:05 75 16 02/25/25 16:50 72 19 02/25/25 16:30 77 17 02/25/25 16:18 71 20 02/25/25 16:06 71 13 02/25/25 16:00 36.9 C 02/25/25 16:00 63 144/59 H 02/25/25 16:00 63 02/25/25 15:55 36.1 C L 74 135/59 L 02/25/25 15:45 58 L 14 02/25/25 15:30 71 137/79 02/25/25 15:24 60 17 02/25/25 15:00 69 18 02/25/25 15:00 63 144/59 H 02/25/25 14:51 66 20 02/25/25 14:39 72 19 02/25/25 14:30 72 140/58 L 02/25/25 14:18 65 22 02/25/25 14:06 68 15 02/25/25 14:00 64 135/54 L 02/25/25 13:59 129/66 02/25/25 13:54 64 18 02/25/25 13:51 69 18 02/25/25 13:33 66 23 02/25/25 13:30 64 90/61 L 02/25/25 13:15 61 17 02/25/25 13:03 68 15 02/25/25 13:01 129/60 02/25/25 13:01 129/60 02/25/25 13:00 70 129/60 02/25/25 12:51 70 18 02/25/25 12:45 72 20 02/25/25 12:30 76 15 02/25/25 12:30 73 128/51 L 02/25/25 12:15 76 12 02/25/25 12:10 36.5 C 74 02/25/25 12:00 77 28 H 02/25/25 12:00 126/70 02/25/25 11:54 81 24 02/25/25 11:40 107/56 L 02/25/25 11:09 71 14 02/25/25 11:01 116/49 L 02/25/25 11:00 76 15 02/25/25 10:51 75 25 H 02/25/25 10:36 76 25 H 02/25/25 10:25 117/57 L 02/25/25 10:24 77 16 02/25/25 10:15 79 26 H 02/25/25 10:03 79 16 02/25/25 10:02 57/36 L 02/25/25 09:54 80 18 02/25/25 09:45 81 18 02/25/25 09:36 78 15 02/25/25 09:06 79 14 02/25/25 09:01 68/43 L 02/25/25 08:57 76 14 02/25/25 08:45 78 17 02/25/25 08:42 77 13 02/25/25 08:36 106/46 L 02/25/25 08:30 119/90 02/25/25 08:24 79 15 02/25/25 08:03 74 16 02/25/25 08:00 98/50 L 02/25/25 08:00 02/25/25 08:00 02/25/25 08:00 02/25/25 08:00 72 02/25/25 08:00 72 20 02/25/25 07:54 74 12 02/25/25 07:51 74 20 02/25/25 07:36 68 12 02/25/25 07:31 89/47 L 02/25/25 07:27 75 16 02/25/25 07:12 74 18 02/25/25 07:12 81/40 L 02/25/25 07:03 82/48 L 02/25/25 07:00 36.8 C 75 20 81/40 L Pulse Ox Pulse Ox O2 Del Method O2 Del Method O2 Flow Rate O2 Flow Rate 02/25/25 17:20 97 02/25/25 17:05 97 02/25/25 16:50 92 02/25/25 16:30 94 02/25/25 16:18 99 02/25/25 16:06 100 02/25/25 16:00 02/25/25 16:00 02/25/25 16:00 02/25/25 15:55 02/25/25 15:45 100 02/25/25 15:30 02/25/25 15:24 98 02/25/25 15:00 02/25/25 15:00 02/25/25 14:51 99 02/25/25 14:39 97 02/25/25 14:30 02/25/25 14:18 99 02/25/25 14:06 97 02/25/25 14:00 02/25/25 13:59 02/25/25 13:54 98 02/25/25 13:51 94 02/25/25 13:33 94 02/25/25 13:30 02/25/25 13:15 99 02/25/25 13:03 97 02/25/25 13:01 02/25/25 13:01 02/25/25 13:00 02/25/25 12:51 99 02/25/25 12:45 95 02/25/25 12:30 93 02/25/25 12:30 02/25/25 12:15 93 02/25/25 12:10 02/25/25 12:00 02/25/25 12:00 02/25/25 11:54 96 02/25/25 11:40 02/25/25 11:09 95 02/25/25 11:01 02/25/25 11:00 75 L 02/25/25 10:51 96 02/25/25 10:36 95 02/25/25 10:25 02/25/25 10:24 94 02/25/25 10:15 95 02/25/25 10:03 95 02/25/25 10:02 02/25/25 09:54 89 L 02/25/25 09:45 96 02/25/25 09:36 96 02/25/25 09:06 96 02/25/25 09:01 02/25/25 08:57 100 02/25/25 08:45 100 02/25/25 08:42 100 02/25/25 08:36 02/25/25 08:30 02/25/25 08:24 02/25/25 08:03 100 02/25/25 08:00 02/25/25 08:00 Nasal Cannula 2 02/25/25 08:00 95 Nasal Cannula 2 02/25/25 08:00 Nasal Cannula 02/25/25 08:00 02/25/25 08:00 94 Nasal Cannula 2 02/25/25 07:54 91 02/25/25 07:51 89 L 02/25/25 07:36 93 02/25/25 07:31 02/25/25 07:27 95 02/25/25 07:12 95 02/25/25 07:12 02/25/25 07:03 02/25/25 07:00 93 Room Air Laboratory Results 02/25/25 04:57 02/25/25 04:57 (2) Aspiration pneumonia Aspiration pneumonia type: due to vomit Laterality: right Lung location: u nspecified part of lung Qualified Code(s): J69.0 - Pneumonitis due to inhalation of food and vomit (3) Opiate overdose Encounter type: initial encounter Injury intent: accidental or unintentional Qualified Code(s): T40.601A - Poisoning by unspecified narcotics, accidental (unintentional), initial encounter
--- NOTE | 2025-02-26 03:25 | Electrocardiogram Report ---
Test Reason : Blood Pressure : */* mmHG Vent. Rate : 84 BPM Atrial Rate : 84 BPM P-R Int : 176 ms QRS Dur : 88 ms QT Int : 398 ms P-R-T Axes : 37 76 10 degrees QTcB Int : 470 ms Normal sinus rhythm Normal ECG When compared with ECG of 21-Dec-2024 15:59, No significant change was found Confirmed by Reece Dalal ([id number]) on 02/26/2025 3:25:25 AM Referred By: REFERRED SELF Confirmed By: Reece Dalal
[2025-02-26 05:21] LABS: Basophils # (auto) 0.07 K/uL (0.00-0.20); Basophils % (auto) 0.8 %; Eosinophils # (auto) 0.33 K/uL (0.00-0.50); Eosinophils % (auto) 3.9 %; Hematocrit (blood only) 30.9 % (37.0-47.0); Hemoglobin 9.6 g/dl (12.0-16.0); Immature Granulocytes # (auto) 0.07 K/uL (0.01-0.20); Immature Granulocytes % (auto) 0.8 %; Lymphocytes % (auto) 5.9 %; Mean Corpuscular Hemoglobin 31.9 pg (25.0-34.0); Mean Corpuscular Hgb Conc 31.1 g/dL (32.0-36.0); Mean Corpuscular Volume 102.7 fL (80.0-100.0); Monocytes # (auto) 0.61 K/uL (0.11-0.59); Monocytes % (auto) 7.2 %; Neutrophils # (auto) 6.86 K/uL (1.40-6.50); Neutrophils % (auto) 81.4 %; Nucleated RBC # (auto) 0.04 K/uL (0.00-0.12); Nucleated RBC % (auto) 0.5 %; Platelet Count 244 K/uL (130-400); RDW Coefficient of Variation 16.6 % (11.5-14.5); RDW Standard Deviation 59.5 fL (36.4-46.3); Red Blood Count 3.01 M/uL (4.20-5.40); White Blood Count 8.44 K/ul (4.8-10.8)
[2025-02-26 05:45] LABS: BUN Creatinine Ratio 9.4 (10-20); Calcium 8.2 mg/dl (8.6-10.3); Creatinine Clr Calc Pharmacy 14.9 ml/min; Potassium 4.3 mmol/L (3.5-5.1)
--- NOTE | 2025-02-26 10:16 | Hospitalist Progress Note ---
Date of Service February 26, 2025 Assessment & Plan (1) Aspiration pneumonia: (2) Opiate overdose: (3) Hypovolemic shock: (4) Elevated troponin I level: (5) End stage renal disease on dialysis: (6) DM type 2 (diabetes mellitus, type 2): (7) Anemia: Plan This is a 70 y/o female with ESRD on HD, DM2, hx PE, anemia in ESRD, psoriasis, hyperlipidemia, and other history as outlined below who presented to the ED from HD today with a syncopal episode. Pt notes episode of vomiting early this morning before HD. Upon initial presentation, pt was noted to be hypotensive and hypoxic and was given Narcan in the ED as well as a dose of midodrine and 250 cc bolus with improvement of BP, initiation of O2 with improvement of hypoxia. However, after Narcan, pt with significant agitation and tremulousness. Referred for admission for further management. Chest x-ray concerning for potential aspiration. Escalating need for respiratory support in the ED - supplemental O2 via NC, then escalation to BiPAP. Attending spoke with director financial systems who will evaluate pt in the ED regarding need for additional respiratory support. Patient was then admitted to ICU for pressor requirement and need for persistent BiPAP. #Aspiration pneumonia #Acute Hypoxic respiratory failure Possible Septic shock, POA Patient presented to the hospital from dialysis clinic with a syncopal episode. She had episode of nausea and vomiting. Given Narcan for possible opioid overdose. Was hypotensive, hypoxic requiring vasopressors and BiPAP respectively in the ED. admitted to ICU Chest x-ray shows pulmonary edema and increased infiltrate on right side Echo shows EF of 55 to 60% with grade 2 diastolic dysfunction. pulm htn CTA chest done on 02/25 did not show PE; consistent with pulmonary edema and pleural effusion bilaterally(more than right side) Continue hemodynamic support with vasopressors. Wean as tolerated; continue midodrine Zosyn de-escalated to ampicillin; plan to treat for total of 5 days Hypertonic saline, DuoNebs for airway clearance. #Possible opioid overdose - received Narcan in the ED, Plan to resume home opioids; will likely benefit addiction medicine referral as outpatient #ESRD on HD-Dialysis as per nephrology, #Type 2 Diabetes - BSG ACHS - Diabetic diet Hyperlipidemiacontinue simvastatin Mood disorderrcontinue on home meds #Anemia - Chronic related to ESRD - no evidence of active bleeding at present Full code DVT prophylaxis heparin Time spent evaluating patient, direct bedside care, chart review, placing orders, interpretation of diagnostic studies, discussion with consultants, patient, as well as other required patient management activities is 50 minutes Please note the above document was generated using voice recognition software. It may contain grammatical, syntax or spelling errors. Any formal questions or concerns about the content, text or information contained within the body of this dictation should be directly addressed to the provider for clarification Admission and Anticipated Discharge Date Admission Date: February 24, 2025 Subjective Patient seen and examined at bedside. She is comfortably lying in the bed without any distress. She reports that she is feeling anxious. She is still requiring vasopressors. Oxygen requirement has been weaned down to room air Review of Systems Review of Systems: All systems reviewed & are unremarkable except as noted in Subjective Physical Exam Physical Exam: Constitutional: Awake, alert oriented x 3. Respiratory: Bilateral basal crackles present. Cardiovascular: RRR, no murmur, no edema Vessels: no JVD or carotid bruit Chest: normal inspection of chest Abdomen: normal bowel sounds, soft, nontender, no hepatosplenomegaly Musculoskeletal: no cyanosis or clubbing, extremities motor strength 5/5 Skin: no rashes, warm and dry normal turgor Neurologic: PERRL, EOMI, accommodation nl, no face palsy, no dysarthria CN's II- XI intact bilaterally and moves all extremities Results & Data Results & Data Vital Signs (Past 12 Hours) Vital Signs Temp Pulse Pulse Resp BP Pulse Ox O2 Del Method 02/26/25 08:36 74 17 97 02/26/25 08:21 75 17 96 02/26/25 08:06 80 17 100 Room Air 02/26/25 08:00 64 02/26/25 08:00 109/52 L 02/26/25 07:48 75 16 94 Nasal Cannula 02/26/25 07:36 79 19 95 02/26/25 07:06 73 20 97 02/26/25 06:00 108/49 L 02/26/25 06:00 108/49 L 02/26/25 06:00 108/49 L 02/26/25 06:00 108/49 L 02/26/25 06:00 108/49 L 02/26/25 06:00 108/49 L 02/26/25 06:00 108/49 L 02/26/25 06:00 65 17 100 02/26/25 05:03 70 11 L 02/26/25 05:00 109/51 L 02/26/25 05:00 109/51 L 02/26/25 04:33 76 12 93 02/26/25 04:00 115/53 L 02/26/25 04:00 74 15 100 02/26/25 04:00 64 108/49 L 02/26/25 04:00 36.6 C 02/26/25 03:03 72 14 99 02/26/25 03:01 120/67 02/26/25 03:01 120/67 02/26/25 02:39 67 12 99 02/26/25 02:03 65 11 L 99 02/26/25 02:00 120/55 L 02/26/25 02:00 120/55 L 02/26/25 01:36 70 22 98 02/26/25 01:00 63 10 L 98 02/26/25 01:00 111/53 L 02/26/25 01:00 111/53 L 02/26/25 00:12 73 17 96 02/26/25 00:00 120/55 L 02/26/25 00:00 36.6 C 02/26/25 00:00 70 119/39 L 02/26/25 00:00 77 02/25/25 23:57 71 15 94 02/25/25 23:22 Nasal Cannula 02/25/25 23:12 67 13 99 O2 Flow Rate 02/26/25 08:36 02/26/25 08:21 02/26/25 08:06 02/26/25 08:00 02/26/25 08:00 02/26/25 07:48 2 02/26/25 07:36 02/26/25 07:06 02/26/25 06:00 02/26/25 06:00 02/26/25 06:00 02/26/25 06:00 02/26/25 06:00 02/26/25 06:00 02/26/25 06:00 02/26/25 06:00 02/26/25 05:03 02/26/25 05:00 02/26/25 05:00 02/26/25 04:33 02/26/25 04:00 02/26/25 04:00 02/26/25 04:00 02/26/25 04:00 02/26/25 03:03 02/26/25 03:01 02/26/25 03:01 02/26/25 02:39 02/26/25 02:03 02/26/25 02:00 02/26/25 02:00 02/26/25 01:36 02/26/25 01:00 02/26/25 01:00 02/26/25 01:00 02/26/25 00:12 02/26/25 00:00 02/26/25 00:00 02/26/25 00:00 02/26/25 00:00 02/25/25 23:57 02/25/25 23:22 2 02/25/25 23:12 (1) Aspiration pneumonia Aspiration pneumonia type: due to vomit Laterality: right Lung location: unspecified part of lung Qualified Code(s): J69.0 - Pneumonitis due to inhalation of food and vomit (2) Opiate overdose Encounter type: initial encounter Injury intent: accidental or unintentional Qualified Code(s): T40.601A - Poisoning by unspecified narcotics, accidental (unintentional), initial encounter (6) DM type 2 (diabetes mellitus, type 2) Diabetes mellitus tank terminal gauger insulin use: without tank terminal gauger use Diabetes mellitus complication status: with kidney complications Diabetes mellitus complication detail: with chronic kidney disease Chronic kidney disease stage: on chronic dialysis Qualified Code(s): E11.22 - Type 2 diabetes mellitus with diabetic chronic kidney disease; N18.6 - End stage renal disease; Z99.2 - Dependence on renal dialysis (7) Anemia Anemia type: unspecified type Qualified Code(s): D64.9 - Anemia, unspecified
--- NOTE | 2025-02-26 11:30 | Critical Care Progress Note ---
Date of Service February 26, 2025 Assessment & Plan (1) Acute hypoxemic respiratory failure: (2) Hypovolemic shock: (3) Opiate overdose: (4) Aspiration pneumonia: (5) Chronic pain: (6) End stage renal disease on dialysis: Plan 70-year-old female with a history of moderate aortic stenosis, end-stage renal disease on chronic hemodialysis, chronic pain syndrome, depression, anxiety and RLS who presented to the hospital due to syncopal events while undergoing routine hemodialysis. Neurologic: Suspect elements of opiate overdose playing a role in patient's symptoms as she was lethargic and then more awake after Narcan in the ER. Patient with chronic back pain. Will consider the addition of low-dose oxycodone 5 mg every 8 hours as needed. Patient previously on a Suboxone patch. No signs of active opiate withdrawal at present. CTA head 02/24/2025 without acute intracranial abnormalities. Pulmonary: Chest CTA 02/25/2025 with evidence of pulmonary edema and cardiomegaly. Moderate right and small left pleural effusions. Atelectasis noted as well. Aspiration pneumonia felt to be less likely at this time. Cardiovascular: Patient with a history of moderate aortic valve stenosis. Repeat echo shows worsening pulmonary hypertension. Troponin is mildly elevated likely due to demand ischemia Continue telemetry monitoring. Maintain maps above 65 mmHg. Suspect an element of cardiogenic, hypovolemic and possible septic shock component. Increase midodrine to 10 mg 3 times daily. Gastrointestinal: Advance diet as tolerated. Renal: Hemodialysis per nephrology. Patient with ESRD on chronic HD. Infectious disease: Aspiration pneumonia felt to be less likely. Zosyn de-escalated to Unasyn. Will continue 5 days of empiric antibiotics. Blood cultures negative to date. Urine culture pending. Hematologic: Patient with anemia of chronic disease. Blood counts stable. Endocrine: TSH normal. Maintain glucose 140-180. Lines and tubes: Peripheral IVs in place. Right femoral central line placed 02/25/2025. Right femoral arterial line placed 02/25/2025. VTE prophylaxis: Subcu heparin and SCDs. CODE STATUS: Full Family at bedside: No family present at bedside currently. Disposition: ICU. Discussed on multidisciplinary rounds with nursing and pharmacy. I have personally spent 41 minutes of critical care time in the direct management of this patient. This is a life/limb threatening event. This includes time spent evaluating patient, direct bedside care, chart review, placing orders, interpretation of diagnostic studies, discussion with consultants, patient, and family members, as well as other required patient management activities. This time is exclusive of all separately billable procedures, and teaching time and separate from and in addition to any other critical care service time. Thank you for allowing us to participate in the care of this patient. Admission and Anticipated Discharge Date Admission Date: February 24, 2025 Subjective Patient seen and examined. Denies any chest pain or shortness of breath. Nasal cannula in place. Remains on low-dose phenylephrine infusion. Received 2 doses of Tylenol overnight due to back pain. Review of Systems Review of Systems: All systems reviewed & are unremarkable except as noted in HPI & below Physical Exam Physical Exam: Constitutional: Patient appears to be in no apparent distress. Eyes: Pupils are equal round and reactive to light. Conjunctivae are normal. Anicteric sclera. Ears nose, mouth and throat: Oxygen mask in place. Neck: Trachea is midline. Visual inspection is normal. Respiratory: Mild crackles in the lower lobes. Mild tachypnea. Cardiovascular: Regular rate and rhythm. 3 out of 6 systolic flow murmur. No edema. Gastrointestinal: Normal bowel sounds, soft, nontender and nondistended. No hepatosplenomegaly noted. Musculoskeletal: No cyanosis. Patient is able to move all extremities. Kyphoscoliosis present. Eschar noted over the right knee. Skin: No rashes, warm dry and intact. Neurologic: No obvious focal neurological deficits seen. Psychiatric: Anxious and lethargic Results & Data Results & Data Vital Signs (Past 12 Hours) Vital Signs Temp Pulse Pulse Resp BP Pulse Ox O2 Del Method 02/26/25 08:36 74 17 97 02/26/25 08:21 75 17 96 02/26/25 08:06 80 17 100 Room Air 02/26/25 08:00 64 02/26/25 08:00 109/52 L 02/26/25 07:48 75 16 94 Nasal Cannula 02/26/25 07:36 79 19 95 02/26/25 07:06 73 20 97 02/26/25 06:00 108/49 L 02/26/25 06:00 108/49 L 02/26/25 06:00 108/49 L 02/26/25 06:00 108/49 L 02/26/25 06:00 108/49 L 02/26/25 06:00 108/49 L 02/26/25 06:00 108/49 L 02/26/25 06:00 65 17 100 02/26/25 05:03 70 11 L 02/26/25 05:00 109/51 L 02/26/25 05:00 109/51 L 02/26/25 04:33 76 12 93 02/26/25 04:00 115/53 L 02/26/25 04:00 74 15 100 02/26/25 04:00 64 108/49 L 02/26/25 04:00 36.6 C 02/26/25 03:03 72 14 99 02/26/25 03:01 120/67 02/26/25 03:01 120/67 02/26/25 02:39 67 12 99 02/26/25 02:03 65 11 L 99 02/26/25 02:00 120/55 L 02/26/25 02:00 120/55 L 02/26/25 01:36 70 22 98 02/26/25 01:00 63 10 L 98 02/26/25 01:00 111/53 L 02/26/25 01:00 111/53 L 02/26/25 00:12 73 17 96 02/26/25 00:00 120/55 L 02/26/25 00:00 36.6 C 02/26/25 00:00 70 119/39 L 02/26/25 00:00 77 02/25/25 23:57 71 15 94 O2 Flow Rate 02/26/25 08:36 02/26/25 08:21 02/26/25 08:06 02/26/25 08:00 02/26/25 08:00 02/26/25 07:48 2 02/26/25 07:36 02/26/25 07:06 02/26/25 06:00 02/26/25 06:00 02/26/25 06:00 02/26/25 06:00 02/26/25 06:00 02/26/25 06:00 02/26/25 06:00 02/26/25 06:00 02/26/25 05:03 02/26/25 05:00 02/26/25 05:00 02/26/25 04:33 02/26/25 04:00 02/26/25 04:00 02/26/25 04:00 02/26/25 04:00 02/26/25 03:03 02/26/25 03:01 02/26/25 03:01 02/26/25 02:39 02/26/25 02:03 02/26/25 02:00 02/26/25 02:00 02/26/25 01:36 02/26/25 01:00 02/26/25 01:00 02/26/25 01:00 02/26/25 00:12 02/26/25 00:00 02/26/25 00:00 02/26/25 00:00 02/26/25 00:00 02/25/25 23:57 Coding Level of Care Code 87657 CRITICAL CARE 1ST 30-74M Diagnoses Acute hypoxemic respiratory failure J96.01 Hypovolemic shock R57.1 Opiate overdose, accidental or unintentional, initial encounter T40.601A Encounter type: initial encounter Injury intent: accidental or unintentional Aspiration pneumonia of right lung due to vomit, unspecified part of lung J69.0 Aspiration pneumonia type: due to vomit Laterality: right Lung location: unspecified part of lung Chronic pain G89.29 End stage renal disease on dialysis N18.6; Z99.2 (3) Opiate overdose Encounter type: initial encounter Injury intent: accidental or unintentional Qualified Code(s): T40.601A - Poisoning by unspecified narcotics, accidental (unintentional), initial encounter (4) Aspiration pneumonia Aspiration pneumonia type: due to vomit Laterality: right Lung location: unspecified part of lung Qualified Code(s): J69.0 - Pneumonitis due to inhalation of food and vomit
--- NOTE | 2025-02-26 12:37 | Dialysis Progress Note ---
Date of Service February 26, 2025 Assessment & Plan Admission and Anticipated Discharge Date Admission Date: February 24, 2025 Subjective Assessment & Plan (1) End stage renal disease on dialysis: Plan: HD today done yesterday--3 kilo removed and being dowwn today again to get her back to [facility]. Planning3 kilo off again. She makes very little urine. HD with pressor support if needed; on midodrine (2) Aspiration pneumonia: Plan: per critical care; on zosyn (3) Opiate overdose: Plan: responded to narcan; challenging situation w/ chronic pain for this pt and limited pain mgt options >> at some point ?kyphoplasty T spine? (4) Frequent falls: Plan: her R knee is swollen though nontender; distal RLE is red, warm and slightly swollen. L not so. also w/ recent CXR showing vertebral compression fracture as below (5) Compression fracture of body of thoracic vertebra: Plan: OP chest CT was recommended to further evaluate 02/12 T spine XR given questionable asymmetric disc space widening inferior to vertebral body > at some point suggest full spinal assessment w/ CT and ? eval for kyphoplasty T spine Subjective Seen in HD today. had HD yesterday also and 3 kilo removed. So far tolerated HD well today. AVF fine. Review of Systems Review of Systems: All systems reviewed & are unremarkable except as noted in Subjective Physical Exam Constitutional: well developed, + physical limitations, + frail appearing, well groomed and cooperative; no acute distress Eyes: EOM intact bilaterally ENMT: Mouth: + dry oral mucous membranes Respiratory: normal respiratory effort Auscultation: + diminished lung sounds Gastrointestinal (Abdomen): Inspection/Auscultation: normal bowel sounds Percussion/Palpation: abdomen soft; abdomen nontender Musculoskeletal: Extremities: strength 5/5 throughout Skin: no rashes, warm and dry Psychiatric: Orientation: alert and oriented x 3 Results & Data Vital Signs (Past 12 Hours) Vital Signs Temp Pulse Pulse Resp BP Pulse Ox O2 Del Method 02/26/25 12:00 55 L 107/33 L 02/26/25 11:30 62 111/37 L 02/26/25 11:00 62 115/41 L 02/26/25 10:30 69 118/51 L 02/26/25 10:11 68 123/56 L 02/26/25 10:05 36.5 C 65 02/26/25 08:36 74 17 97 02/26/25 08:21 75 17 96 02/26/25 08:06 80 17 100 Room Air 02/26/25 08:00 64 02/26/25 08:00 109/52 L 02/26/25 07:48 75 16 94 Nasal Cannula 02/26/25 07:36 79 19 95 02/26/25 07:06 73 20 97 02/26/25 06:00 108/49 L 02/26/25 06:00 108/49 L 02/26/25 06:00 108/49 L 02/26/25 06:00 108/49 L 02/26/25 06:00 108/49 L 02/26/25 06:00 108/49 L 02/26/25 06:00 108/49 L 02/26/25 06:00 65 17 100 02/26/25 05:03 70 11 L 02/26/25 05:00 109/51 L 02/26/25 05:00 109/51 L 02/26/25 04:33 76 12 93 02/26/25 04:00 115/53 L 02/26/25 04:00 74 15 100 02/26/25 04:00 64 108/49 L 02/26/25 04:00 36.6 C 02/26/25 03:03 72 14 99 02/26/25 03:01 120/67 02/26/25 03:01 120/67 02/26/25 02:39 67 12 99 02/26/25 02:03 65 11 L 99 02/26/25 02:00 120/55 L 02/26/25 02:00 120/55 L 02/26/25 01:36 70 22 98 02/26/25 01:00 63 10 L 98 02/26/25 01:00 111/53 L 02/26/25 01:00 111/53 L O2 Flow Rate 02/26/25 12:00 02/26/25 11:30 02/26/25 11:00 02/26/25 10:30 02/26/25 10:11 02/26/25 10:05 02/26/25 08:36 02/26/25 08:21 02/26/25 08:06 02/26/25 08:00 02/26/25 08:00 02/26/25 07:48 2 02/26/25 07:36 02/26/25 07:06 02/26/25 06:00 02/26/25 06:00 02/26/25 06:00 02/26/25 06:00 02/26/25 06:00 02/26/25 06:00 02/26/25 06:00 02/26/25 06:00 02/26/25 05:03 02/26/25 05:00 02/26/25 05:00 02/26/25 04:33 02/26/25 04:00 02/26/25 04:00 02/26/25 04:00 02/26/25 04:00 02/26/25 03:03 02/26/25 03:01 02/26/25 03:01 02/26/25 02:39 02/26/25 02:03 02/26/25 02:00 02/26/25 02:00 02/26/25 01:36 02/26/25 01:00 02/26/25 01:00 02/26/25 01:00
[2025-02-27 05:25] LABS: Basophils # (auto) 0.12 K/uL (0.00-0.20); Basophils % (auto) 1.5 %; Eosinophils # (auto) 0.57 K/uL (0.00-0.50); Hemoglobin 9.2 g/dl (12.0-16.0); Immature Granulocytes # (auto) 0.09 K/uL (0.01-0.20); Immature Granulocytes % (auto) 1.1 %; Lymphocytes # (auto) 0.69 K/uL (1.20-3.40); Lymphocytes % (auto) 8.5 %; Mean Corpuscular Hemoglobin 32.1 pg (25.0-34.0); Mean Corpuscular Hgb Conc 30.7 g/dL (32.0-36.0); Mean Corpuscular Volume 104.5 fL (80.0-100.0); Mean Platelet Volume 9.4 fL (9.4-12.4); Monocytes # (auto) 0.66 K/uL (0.11-0.59); Monocytes % (auto) 8.1 %; Neutrophils # (auto) 5.97 K/uL (1.40-6.50); Neutrophils % (auto) 73.8 %; Nucleated RBC # (auto) 0.06 K/uL (0.00-0.12); Nucleated RBC % (auto) 0.7 %; Platelet Count 217 K/uL (130-400); RDW Coefficient of Variation 16.8 % (11.5-14.5); RDW Standard Deviation 60.5 fL (36.4-46.3); Red Blood Count 2.87 M/uL (4.20-5.40)
[2025-02-27 05:40] LABS: BUN Creatinine Ratio 8.3 (10-20); Calcium 7.8 mg/dl (8.6-10.3); Creatinine Clr Calc Pharmacy 17.6 ml/min; Magnesium 2.2 mg/dl (1.7-2.4); Phosphorus 6.1 mg/dl (2.5-4.9)
--- NOTE | 2025-02-27 11:21 | Hospitalist Progress Note ---
Date of Service February 27, 2025 Assessment & Plan (1) Aspiration pneumonia: (2) Opiate overdose: (3) Hypovolemic shock: (4) Elevated troponin I level: (5) End stage renal disease on dialysis: (6) DM type 2 (diabetes mellitus, type 2): (7) Anemia: Plan This is a 70 y/o female with ESRD on HD, DM2, hx PE, anemia in ESRD, psoriasis, hyperlipidemia, and other history as outlined below who presented to the ED from HD today with a syncopal episode. Pt notes episode of vomiting early this morning before HD. Upon initial presentation, pt was noted to be hypotensive and hypoxic and was given Narcan in the ED as well as a dose of midodrine and 250 cc bolus with improvement of BP, initiation of O2 with improvement of hypoxia. However, after Narcan, pt with significant agitation and tremulousness. Referred for admission for further management. Chest x-ray concerning for potential aspiration. Escalating need for respiratory support in the ED - supplemental O2 via NC, then escalation to BiPAP. Attending spoke with packaging materials inspector who will evaluate pt in the ED regarding need for additional respiratory support. Patient was then admitted to ICU for pressor requirement and need for persistent BiPAP. #Aspiration pneumonia #Acute Hypoxic respiratory failure Possible Septic shock, POA Patient presented to the hospital from dialysis clinic with a syncopal episode. She had episode of nausea and vomiting. Given Narcan for possible opioid overdose. Was hypotensive, hypoxic requiring vasopressors and BiPAP respectively in the ED. admitted to ICU Chest x-ray shows pulmonary edema and increased infiltrate on right side Echo shows EF of 55 to 60% with grade 2 diastolic dysfunction. pulm htn CTA chest done on 02/25 did not show PE; consistent with pulmonary edema and pleural effusion bilaterally(more than right side) Off phenylephrine on the morning of February 27, 2025. Continue on midodrine On ampicillin; plan to treat for total of 5 days. Continue on hypertonic saline and DuoNebs for airway clearance #Possible opioid overdose - received Narcan in the ED, Plan to resume home opioids; will likely benefit addiction medicine referral as outpatient #ESRD on HD-Dialysis as per nephrology, #Type 2 Diabetes - BSG ACHS - Diabetic diet Hyperlipidemiacontinue simvastatin Mood disorderrcontinue on home meds #Anemia - Chronic related to ESRD - no evidence of active bleeding at present Full code DVT prophylaxis heparin Time spent evaluating patient, direct bedside care, chart review, placing orders, interpretation of diagnostic studies, discussion with consultants, patient, as well as other required patient management activities is 50 minutes Please note the above document was generated using voice recognition software. It may contain grammatical, syntax or spelling errors. Any formal questions or concerns about the content, text or information contained within the body of this dictation should be directly addressed to the provider for clarification Admission and Anticipated Discharge Date Admission Date: February 24, 2025 Subjective Patient seen and examined at bedside. She is comfortable; not in distress. Phenylephrine has been stopped; blood pressure with MAP around 65. Shortness of breath has improved as well No significant events overnight Review of Systems Review of Systems: All systems reviewed & are unremarkable except as noted in Subjective Physical Exam Physical Exam: Constitutional: Awake, alert oriented x 3. Respiratory: Bilateral basal crackles present. Cardiovascular: RRR, no murmur, no edema Vessels: no JVD or carotid bruit Chest: normal inspection of chest Abdomen: normal bowel sounds, soft, nontender, no hepatosplenomegaly Musculoskeletal: no cyanosis or clubbing, extremities motor strength 5/5 Skin: no rashes, warm and dry normal turgor Neurologic: PERRL, EOMI, accommodation nl, no face palsy, no dysarthria CN's II- XI intact bilaterally and moves all extremities Results & Data Results & Data Vital Signs (Past 12 Hours) Vital Signs Temp Pulse Pulse Resp BP Pulse Ox O2 Del Method 02/27/25 10:33 81 22 95 Nasal Cannula 02/27/25 10:21 74 14 99 02/27/25 10:00 108/53 L 02/27/25 09:48 76 15 97 02/27/25 09:30 87 17 02/27/25 09:03 75 16 97 02/27/25 09:00 110/60 02/27/25 09:00 110/60 02/27/25 09:00 110/60 02/27/25 08:57 77 20 02/27/25 08:45 77 17 02/27/25 08:42 80 27 H 100 02/27/25 08:18 77 14 98 02/27/25 08:00 73 02/27/25 08:00 77 16 98 02/27/25 08:00 126/55 L 02/27/25 08:00 126/55 L 02/27/25 07:51 75 20 90 02/27/25 07:39 80 19 94 02/27/25 07:18 72 19 100 02/27/25 07:18 74 18 95 Nasal Cannula 02/27/25 07:06 77 14 99 02/27/25 06:36 70 18 98 02/27/25 06:18 70 12 99 02/27/25 06:09 69 18 99 02/27/25 05:21 74 16 98 02/27/25 05:00 120/53 L 02/27/25 04:48 65 17 97 02/27/25 04:06 77 16 92 02/27/25 04:01 117/47 L 02/27/25 04:01 117/47 L 02/27/25 04:01 117/47 L 02/27/25 04:00 36.8 C 02/27/25 04:00 77 94/38 L 02/27/25 03:51 73 27 H 98 02/27/25 03:00 72 16 99 02/27/25 03:00 137/67 02/27/25 03:00 137/67 02/27/25 02:18 68 21 98 02/27/25 02:00 110/49 L 02/27/25 01:42 65 21 100 02/27/25 01:12 65 14 99 02/27/25 01:00 130/55 L 02/27/25 00:51 63 13 99 02/27/25 00:06 66 12 100 02/27/25 00:00 138/52 L 02/27/25 00:00 66 131/70 02/27/25 00:00 70 02/27/25 00:00 36.9 C 02/26/25 23:57 69 18 100 O2 Flow Rate 02/27/25 10:33 2 02/27/25 10:21 02/27/25 10:00 02/27/25 09:48 02/27/25 09:30 02/27/25 09:03 02/27/25 09:00 02/27/25 09:00 02/27/25 09:00 02/27/25 08:57 02/27/25 08:45 02/27/25 08:42 02/27/25 08:18 02/27/25 08:00 02/27/25 08:00 02/27/25 08:00 02/27/25 08:00 02/27/25 07:51 02/27/25 07:39 02/27/25 07:18 02/27/25 07:18 2 02/27/25 07:06 02/27/25 06:36 02/27/25 06:18 02/27/25 06:09 02/27/25 05:21 02/27/25 05:00 02/27/25 04:48 02/27/25 04:06 02/27/25 04:01 02/27/25 04:01 02/27/25 04:01 02/27/25 04:00 02/27/25 04:00 02/27/25 03:51 02/27/25 03:00 02/27/25 03:00 02/27/25 03:00 02/27/25 02:18 02/27/25 02:00 02/27/25 01:42 02/27/25 01:12 02/27/25 01:00 02/27/25 00:51 02/27/25 00:06 02/27/25 00:00 02/27/25 00:00 02/27/25 00:00 02/27/25 00:00 02/26/25 23:57 (1) Aspiration pneumonia Aspiration pneumonia type: due to vomit Laterality: right Lung location: unspecified part of lung Qualified Code(s): J69.0 - Pneumonitis due to inhalation of food and vomit (2) Opiate overdose Encounter type: initial encounter Injury intent: accidental or unintentional Qualified Code(s): T40.601A - Poisoning by unspecified narcotics, accidental (unintentional), initial encounter (6) DM type 2 (diabetes mellitus, type 2) Diabetes mellitus skilled nursing insulin use: without skilled nursing use Diabetes mellitus complication status: with kidney complications Diabetes mellitus complication detail: with chronic kidney disease Chronic kidney disease stage: on chronic dialysis Qualified Code(s): E11.22 - Type 2 diabetes mellitus with diabetic chronic kidney disease; N18.6 - End stage renal disease; Z99.2 - Dependence on renal dialysis (7) Anemia Anemia type: unspecified type Qualified Code(s): D64.9 - Anemia, unspecified
--- NOTE | 2025-02-27 11:50 | Critical Care Progress Note ---
Date of Service February 27, 2025 Assessment & Plan (1) Acute hypoxemic respiratory failure: (2) Hypovolemic shock: (3) Opiate overdose: (4) Aspiration pneumonia: (5) Chronic pain: (6) End stage renal disease on dialysis: Plan 70-year-old female with a history of moderate aortic stenosis, end-stage renal disease on chronic hemodialysis, chronic pain syndrome, depression, anxiety and RLS who presented to the hospital due to syncopal events while undergoing routine hemodialysis. Neurologic: Suspect elements of opiate overdose playing a role in patient's symptoms as she was lethargic and then more awake after Narcan in the ER. Patient with chronic back pain. Will consider the addition of low-dose oxycodone 5 mg every 8 hours as needed. Patient previously on a Suboxone patch. No signs of active opiate withdrawal at present. CTA head 02/24/2025 without acute intracranial abnormalities. Pulmonary: Chest CTA 02/25/2025 with evidence of pulmonary edema and cardiomegaly. Moderate right and small left pleural effusions. Atelectasis noted as well. Aspiration pneumonia felt to be less likely at this time. Cardiovascular: Patient with a history of moderate aortic valve stenosis. Repeat echo shows worsening pulmonary hypertension. Troponin is mildly elevated likely due to demand ischemia Continue telemetry monitoring. Maintain maps above 65 mmHg. Suspect an element of cardiogenic, hypovolemic and possible septic shock component. Continue midodrine to 10 mg 3 times daily. Gastrointestinal: Advance diet as tolerated. Renal: Hemodialysis per nephrology. Patient with ESRD on chronic HD. Infectious disease: Aspiration pneumonia felt to be less likely. Zosyn de-escalated to Unasyn. Will continue 5 days of empiric antibiotics. Blood cultures negative to date. Urine culture was contaminated. Patient does not have symptoms of UTI. Hematologic: Patient with anemia of chronic disease. Blood counts stable. Endocrine: TSH normal. Maintain glucose 140-180. Lines and tubes: Peripheral IVs in place. Right femoral central line placed 02/25/2025. Right femoral arterial line placed 02/25/2025. Lines can likely be removed today as long as she remains off pressors. VTE prophylaxis: Subcu heparin and SCDs. CODE STATUS: Full Family at bedside: No family present at bedside currently. Disposition: Probable downgrade to PCU later today if remains off pressors. Admission and Anticipated Discharge Date Admission Date: February 24, 2025 Subjective No significant events overnight. Patient off vasopressors currently. Review of Systems Review of Systems: All systems reviewed & are unremarkable except as noted in HPI & below Physical Exam Physical Exam: Constitutional: Patient appears to be in no apparent distress. Eyes: Pupils are equal round and reactive to light. Conjunctivae are normal. Anicteric sclera. Ears nose, mouth and throat: Oxygen mask in place. Neck: Trachea is midline. Visual inspection is normal. Respiratory: Mild crackles in the lower lobes. Mild tachypnea. Cardiovascular: Regular rate and rhythm. 3 out of 6 systolic flow murmur. No edema. Gastrointestinal: Normal bowel sounds, soft, nontender and nondistended. No hepatosplenomegaly noted. Musculoskeletal: No cyanosis. Patient is able to move all extremities. Kyphoscoliosis present. Eschar noted over the right knee. Skin: No rashes, warm dry and intact. Neurologic: No obvious focal neurological deficits seen. Psychiatric: Anxious and lethargic Results & Data Results & Data Vital Signs (Past 12 Hours) Vital Signs Temp Pulse Pulse Resp BP Pulse Ox O2 Del Method 02/27/25 10:33 81 22 95 Nasal Cannula 02/27/25 10:21 74 14 99 02/27/25 10:00 108/53 L 02/27/25 09:48 76 15 97 02/27/25 09:30 87 17 02/27/25 09:03 75 16 97 02/27/25 09:00 110/60 02/27/25 09:00 110/60 02/27/25 09:00 110/60 02/27/25 08:57 77 20 02/27/25 08:45 77 17 02/27/25 08:42 80 27 H 100 02/27/25 08:18 77 14 98 02/27/25 08:00 73 02/27/25 08:00 77 16 98 02/27/25 08:00 126/55 L 02/27/25 08:00 126/55 L 02/27/25 07:51 75 20 90 02/27/25 07:39 80 19 94 02/27/25 07:18 72 19 100 02/27/25 07:18 74 18 95 Nasal Cannula 02/27/25 07:06 77 14 99 02/27/25 06:36 70 18 98 02/27/25 06:18 70 12 99 02/27/25 06:09 69 18 99 02/27/25 05:21 74 16 98 02/27/25 05:00 120/53 L 02/27/25 04:48 65 17 97 02/27/25 04:06 77 16 92 02/27/25 04:01 117/47 L 02/27/25 04:01 117/47 L 02/27/25 04:01 117/47 L 02/27/25 04:00 36.8 C 02/27/25 04:00 77 94/38 L 02/27/25 03:51 73 27 H 98 02/27/25 03:00 72 16 99 02/27/25 03:00 137/67 02/27/25 03:00 137/67 02/27/25 02:18 68 21 98 02/27/25 02:00 110/49 L 02/27/25 01:42 65 21 100 02/27/25 01:12 65 14 99 02/27/25 01:00 130/55 L 02/27/25 00:51 63 13 99 02/27/25 00:06 66 12 100 02/27/25 00:00 138/52 L 02/27/25 00:00 66 131/70 02/27/25 00:00 70 02/27/25 00:00 36.9 C 02/26/25 23:57 69 18 100 O2 Flow Rate 02/27/25 10:33 2 02/27/25 10:21 02/27/25 10:00 02/27/25 09:48 02/27/25 09:30 02/27/25 09:03 02/27/25 09:00 02/27/25 09:00 02/27/25 09:00 02/27/25 08:57 02/27/25 08:45 02/27/25 08:42 02/27/25 08:18 02/27/25 08:00 02/27/25 08:00 02/27/25 08:00 02/27/25 08:00 02/27/25 07:51 02/27/25 07:39 02/27/25 07:18 02/27/25 07:18 2 02/27/25 07:06 02/27/25 06:36 02/27/25 06:18 02/27/25 06:09 02/27/25 05:21 02/27/25 05:00 02/27/25 04:48 02/27/25 04:06 02/27/25 04:01 02/27/25 04:01 02/27/25 04:01 02/27/25 04:00 02/27/25 04:00 02/27/25 03:51 02/27/25 03:00 02/27/25 03:00 02/27/25 03:00 02/27/25 02:18 02/27/25 02:00 02/27/25 01:42 02/27/25 01:12 02/27/25 01:00 02/27/25 00:51 02/27/25 00:06 02/27/25 00:00 02/27/25 00:00 02/27/25 00:00 02/27/25 00:00 02/26/25 23:57 Coding Level of Care Code 79458 SUB INP/OBS CARE 2/35MIN Diagnoses Acute hypoxemic respiratory failure J96.01 Hypovolemic shock R57.1 Opiate overdose, accidental or unintentional, initial encounter T40.601A Encounter type: initial encounter Injury intent: accidental or unintentional Aspiration pneumonia of right lung due to vomit, unspecified part of lung J69.0 Aspiration pneumonia type: due to vomit Laterality: right Lung location: unspecified part of lung Chronic pain G89.29 End stage renal disease on dialysis N18.6; Z99.2 (3) Opiate overdose Encounter type: initial encounter Injury intent: accidental or unintentional Qualified Code(s): T40.601A - Poisoning by unspecified narcotics, accidental (unintentional), initial encounter (4) Aspiration pneumonia Aspiration pneumonia type: due to vomit Laterality: right Lung location: unspecified part of lung Qualified Code(s): J69.0 - Pneumonitis due to inhalation of food and vomit
[2025-02-28 07:44] LABS: BUN Creatinine Ratio 8.4 (10-20); Calcium 7.2 mg/dl (8.6-10.3); Creatinine Clr Calc Pharmacy 11.8 ml/min; Magnesium 2.4 mg/dl (1.7-2.4); Phosphorus 7.1 mg/dl (2.5-4.9); Potassium 4.2 mmol/L (3.5-5.1)
--- NOTE | 2025-02-28 08:35 | Nephrology Progress Note ---
Date of Service February 28, 2025 Assessment & Plan (1) End stage renal disease on dialysis: Plan: concern her hypotension may stem from worsening RH function in setting of plm HTN. Has had HD this admission so far only with pressor support. This has enabled us to improve her volume status somewhat. She had 3 L UF on both February 25 and . Concerned that with untreated sleep apnea right heart failure is emerging complicated by aspiration pneumonitis and chronic pain/opiate overdose. Plan routine HD tomorrow here without pressors to see how she does Will continue to emphasize importance of BiPAP/CPAP, cardiology follow-up, extreme care with medications -- began discussion today but she's too sleepy to follow through w/ much here -started phosLo in addition to renvela given phos > 7 >> give ONLY w/ meals Care coordinated regarding timing of dialysis and spinal imaging and right heart function status and pathophysiology with Dr. Sifuentes by phone we are in agreement. Care coordinated also with dialysis nursing team. (2) Right heart failure due to pulmonary hypertension: Plan: Diagnosed October 2022 with severe sleep apnea with hypoxia; has not yet followed up to be fitted for device >>suggest trial cpap/bipap while in house if able > did d/w primary service (3) Aspiration pneumonia: Plan: aspiration pneumonitis after emesis during opiate withdrawal this admission > remains on 1L (4) Opiate overdose: Plan: responded to narcan in ED; challenging situation w/ chronic pain for this pt and ESRD since opiates are standard of care here though concerns for hyperalgesia on opiates earlier this yearand limited pain mgt options >> at some point ?kyphoplasty T spine? >>pretty lethargic today after 5 mg oxy 4 hrs prior to my seeing her >> this is 1/3 of her OP dose per report; primary service aware/titrating (5) Frequent falls: Plan: her R knee on admission was scabbed, swollen though nontender; distal RLE is red, warm and slightly swollen. L not so. also w/ recent CXR showing vertebral compression fracture as below approx 02/06 she fell down at home, sitting down hard on floor; also saw PCP 02/13 w/ c/o c spine pain and BL arm weakness (6) Compression fracture of body of thoracic vertebra: Plan: OP chest CT was recommended to further evaluate 02/12 T spine XR given questionable asymmetric disc space widening inferior to vertebral body > at some point suggest full spinal assessment w/ CT and ? eval for kyphoplasty T spine << all as outpatient Suggest x-rays of C-spine (these were obtained as outpatient but were inappropriately positioned/unsuccessful for diagnosis) as well as L-spine given frequent falls/history above/known vertebral compression fracture in the thoracic spine; this way she can hopefully do only 1 CT scan of the spine as an outpatient instead of multiple trips for imaging Admission and Anticipated Discharge Date Admission Date: February 24, 2025 Subjective no interval events clinically. slept very poorly and is extremely fatigued > states poor sleep some from the unfamiliar environment but also from back pain. no sob, no n/v. ROS limited by pt fatigue. Review of Systems 2 Review of Systems: All systems reviewed & are unremarkable except as noted in Subjective Physical Exam 2 Constitutional: well developed, + physical limitations, + frail appearing, well groomed and + lethargic; no acute distress Eyes: EOM intact bilaterally ENMT: Mouth: + dry oral mucous membranes Respiratory: normal respiratory effort Auscultation: + diminished lung sounds Cardiovascular: Rate/Rhythm: regular rate and regular rhythm Heart Sounds: + murmur Extremities: + AV fistula; no edema Gastrointestinal (Abdomen): Inspection/Auscultation: normal bowel sounds P ercussion/Palpation: abdomen soft; abdomen nontender Musculoskeletal: Extremities: strength 5/5 throughout Skin: no rashes, warm and dry Neurologic: valdez, fluent though limited by lethargy speech, no tremor Psychiatric: Orientation: oriented to person, oriented to place and oriented to time; + not alert (lethargic) Results & Data Vital Signs (Past 12 Hours) Vital Signs Temp Pulse Pulse Resp BP BP Pulse Ox 02/28/25 07:15 36.4 C L 90 19 110/67 100 02/28/25 07:08 86 18 97 02/28/25 03:31 36.4 C L 88 16 110/57 L 97 02/27/25 23:48 100 H 02/27/25 23:00 36.5 C 81 20 96/61 L 95 O2 Del Method O2 Flow Rate 02/28/25 07:15 Nasal Cannula 2 02/28/25 07:08 Nasal Cannula 2 02/28/25 03:31 Nasal Cannula 2.0 02/27/25 23:48 02/27/25 23:00 Nasal Cannula 2 Laboratory Results 02/27/25 05:07 02/28/25 07:08 (3) Aspiration pneumonia Aspiration pneumonia type: due to vomit Laterality: right Lung location: u nspecified part of lung Qualified Code(s): J69.0 - Pneumonitis due to inhalation of food and vomit (4) Opiate overdose Encounter type: initial encounter Injury intent: accidental or unintentional Qualified Code(s): T40.601A - Poisoning by unspecified narcotics, accidental (unintentional), initial encounter
--- NOTE | 2025-02-28 11:13 | Hospitalist Progress Note ---
Date of Service February 28, 2025 Assessment & Plan (1) Aspiration pneumonia: (2) Opiate overdose: (3) Hypovolemic shock: (4) Elevated troponin I level: (5) End stage renal disease on dialysis: (6) DM type 2 (diabetes mellitus, type 2): (7) Anemia: Plan This is a 70 y/o female with ESRD on HD, DM2, hx PE, anemia in ESRD, psoriasis, hyperlipidemia, and other history as outlined below who presented to the ED from HD today with a syncopal episode. Pt notes episode of vomiting early this morning before HD. Upon initial presentation, pt was noted to be hypotensive and hypoxic and was given Narcan in the ED as well as a dose of midodrine and 250 cc bolus with improvement of BP, initiation of O2 with improvement of hypoxia. However, after Narcan, pt with significant agitation and tremulousness. Referred for admission for further management. Chest x-ray concerning for potential aspiration. Escalating need for respiratory support in the ED - supplemental O2 via NC, then escalation to BiPAP. Attending spoke with mineral ore processing labourer who will evaluate pt in the ED regarding need for additional respiratory support. Patient was then admitted to ICU for pressor requirement and need for persistent BiPAP. #Aspiration pneumonia #Acute Hypoxic respiratory failure Possible Septic shock, POA Patient presented to the hospital from dialysis clinic with a syncopal episode. She had episode of nausea and vomiting. Given Narcan for possible opioid overdose. Was hypotensive, hypoxic requiring vasopressors and BiPAP respectively in the ED. admitted to ICU Chest x-ray shows pulmonary edema and increased infiltrate on right side Echo shows EF of 55 to 60% with grade 2 diastolic dysfunction. pulm htn CTA chest done on 02/25 did not show PE; consistent with pulmonary edema and pleural effusion bilaterally(more than right side) Patient is off vasopressors since February 27, 2025 and transferred to PCU Status post 5 days of ampicillin Continue on midodrine for low blood pressure. Continue incentive spirometry PT OT evaluation Wean off oxygen as tolerated #Possible opioid overdose - received Narcan in the ED, Patient is on oxycodone 15 mg 3 times daily as needed at home; was recently prescribed on 02/16. Was given Narcan in the ED possibly precipitating withdrawal Plan to reduce dose to 2.5 mg as needed 3 times daily. She would benefit from outpatient referral for addiction medicine. #ESRD on HD-Dialysis as per nephrology, #Type 2 Diabetes - BSG ACHS - Diabetic diet Hyperlipidemiacontinue simvastatin Mood disorderrcontinue on home meds #Anemia - Chronic related to ESRD - no evidence of active bleeding at present Full code DVT prophylaxis heparin Time spent evaluating patient, direct bedside care, chart review, placing orders, interpretation of diagnostic studies, discussion with consultants, patient, as well as other required patient management activities is 50 minutes Please note the above document was generated using voice recognition software. It may contain grammatical, syntax or spelling errors. Any formal questions or concerns about the content, text or information contained within the body of this dictation should be directly addressed to the provider for clarification Admission and Anticipated Discharge Date Admission Date: February 24, 2025 Subjective Patient seen and examined at bedside. She reports that she is feeling sleepy. Denies any fever, chills, chest pain or increasing shortness of breath. No abdominal pain. Review of Systems Review of Systems: All systems reviewed & are unremarkable except as noted in Subjective Physical Exam Physical Exam: Constitutional: Awake, alert oriented x 3. Respiratory: Bilateral basal crackles present. Cardiovascular: RRR, no murmur, no edema Vessels: no JVD or carotid bruit Chest: normal inspection of chest Abdomen: normal bowel sounds, soft, nontender, no hepatosplenomegaly Musculoskeletal: no cyanosis or clubbing, extremities motor strength 5/5 Skin: no rashes, warm and dry normal turgor Neurologic: PERRL, EOMI, accommodation nl, no face palsy, no dysarthria CN's II- XI intact bilaterally and moves all extremities Results & Data Results & Data Vital Signs (Past 12 Hours) Vital Signs Temp Pulse Pulse Resp BP Pulse Ox O2 Del Method 02/28/25 10:53 36.6 C 90 18 106/52 L 91 Nasal Cannula 02/28/25 08:45 16 94 Nasal Cannula 02/28/25 08:00 Nasal Cannula 02/28/25 07:15 36.4 C L 90 19 110/67 100 Nasal Cannula 02/28/25 07:08 86 18 97 Nasal Cannula 02/28/25 05:46 92 H 02/28/25 03:31 36.4 C L 88 16 110/57 L 97 Nasal Cannula 02/27/25 23:48 100 H O2 Flow Rate 05/12/25 10:53 2 02/28/25 08:45 1 02/28/25 08:00 1 02/28/25 07:15 2 02/28/25 07:08 2 02/28/25 05:46 02/28/25 03:31 2.0 02/27/25 23:48 (1) Aspiration pneumonia Aspiration pneumonia type: due to vomit Laterality: right Lung location: unspecified part of lung Qualified Code(s): J69.0 - Pneumonitis due to inhalation of food and vomit (2) Opiate overdose Encounter type: initial encounter Injury intent: accidental or unintentional Qualified Code(s): T40.601A - Poisoning by unspecified narcotics, accidental (unintentional), initial encounter (6) DM type 2 (diabetes mellitus, type 2) Diabetes mellitus longitudinal float operator insulin use: without mcc use Diabetes mellitus complication status: with kidney complications Diabetes mellitus complication detail: with chronic kidney disease Chronic kidney disease stage: on chronic dialysis Qualified Code(s): E11.22 - Type 2 diabetes mellitus with diabetic chronic kidney disease; N18.6 - End stage renal disease; Z99.2 - Dependence on renal dialysis (7) Anemia Anemia type: unspecified type Qualified Code(s): D64.9 - Anemia, unspecified
--- NOTE | 2025-02-28 13:54 | XRay Report ---
XR cervical spine 2 or 3V CLINICAL HISTORY: neck pain COMPARISON STUDY: 07/19/2021 FINDINGS: There is osteopenia. There are mild diffuse degenerative changes. Lower cervical spine is o bscured by the shoulders on the lateral view. No fracture or subluxation seen. IMPRESSION: Mild degenerative changes. ACT 112: Negative or not required by law. Electronically signed by: Ollie Arias M.D. 02/28/2025 1:53 PM
--- NOTE | 2025-02-28 13:57 | XRay Report ---
XR lumbar spine 2-3V CLINICAL HISTORY: rule out compression fracture COMPARISON STUDY: 12/23/2024 FINDINGS: There is osteopenia. There is stable mild height loss at all the lumbar vertebral bodies an d T11. Stable minimal anterolisthesis of L4 on 5. Otherwise normal alignment. No new fractures seen. Stable diffuse degenerative changes most severe at L5-S1. IMPRESSION: 1. No new fracture seen. 2. Stable mild vertebral body compression fractures at all lumbar levels. ACT 112: Negative or not required by law. Electronically signed by: Ollie Arias M.D. 02/28/2025 1:56 PM
[2025-03-01 07:36] LABS: Basophils # (auto) 0.07 K/uL (0.00-0.20); Basophils % (auto) 0.9 %; Eosinophils # (auto) 0.19 K/uL (0.00-0.50); Eosinophils % (auto) 2.5 %; Hematocrit (blood only) 30.3 % (37.0-47.0); Hemoglobin 9.3 g/dl (12.0-16.0); Immature Granulocytes # (auto) 0.08 K/uL (0.01-0.20); Immature Granulocytes % (auto) 1.1 %; Lymphocytes # (auto) 0.83 K/uL (1.20-3.40); Mean Corpuscular Hemoglobin 32.3 pg (25.0-34.0); Mean Corpuscular Hgb Conc 30.7 g/dL (32.0-36.0); Mean Corpuscular Volume 105.2 fL (80.0-100.0); Mean Platelet Volume 9.1 fL (9.4-12.4); Monocytes # (auto) 0.33 K/uL (0.11-0.59); Monocytes % (auto) 4.4 %; Neutrophils # (auto) 6.04 K/uL (1.40-6.50); Neutrophils % (auto) 80.1 %; Nucleated RBC # (auto) 0.04 K/uL (0.00-0.12); Nucleated RBC % (auto) 0.5 %; Platelet Count 210 K/uL (130-400); RDW Coefficient of Variation 18.1 % (11.5-14.5); RDW Standard Deviation 64.8 fL (36.4-46.3); Red Blood Count 2.88 M/uL (4.20-5.40); White Blood Count 7.54 K/ul (4.8-10.8)
[2025-03-01 07:54] LABS: BUN Creatinine Ratio 8.6 (10-20); Calcium 6.9 mg/dl (8.6-10.3); Magnesium 2.5 mg/dl (1.7-2.4); Phosphorus 7.9 mg/dl (2.5-4.9); Potassium 4.9 mmol/L (3.5-5.1)
--- NOTE | 2025-03-01 11:24 | Hospitalist Progress Note ---
Date of Service March 01, 2025 Assessment & Plan (1) Aspiration pneumonia: (2) Opiate overdose: (3) Hypovolemic shock: (4) Elevated troponin I level: (5) End stage renal disease on dialysis: (6) DM type 2 (diabetes mellitus, type 2): (7) Anemia: Plan This is a 70 y/o female with ESRD on HD, DM2, hx PE, anemia in ESRD, psoriasis, hyperlipidemia, and other history as outlined below who presented to the ED from HD today with a syncopal episode. Pt notes episode of vomiting early this morning before HD. Upon initial presentation, pt was noted to be hypotensive and hypoxic and was given Narcan in the ED as well as a dose of midodrine and 250 cc bolus with improvement of BP, initiation of O2 with improvement of hypoxia. However, after Narcan, pt with significant agitation and tremulousness. Referred for admission for further management. Chest x-ray concerning for potential aspiration. Escalating need for respiratory support in the ED - supplemental O2 via NC, then escalation to BiPAP. Attending spoke with manager law who will evaluate pt in the ED regarding need for additional respiratory support. Patient was then admitted to ICU for pressor requirement and need for persistent BiPAP. #Aspiration pneumonia #Acute Hypoxic respiratory failure Possible Septic shock, POA Patient presented to the hospital from dialysis clinic with a syncopal episode. She had episode of nausea and vomiting. Given Narcan for possible opioid overdose. Was hypotensive, hypoxic requiring vasopressors and BiPAP respectively in the ED. admitted to ICU Chest x-ray shows pulmonary edema and increased infiltrate on right side Echo shows EF of 55 to 60% with grade 2 diastolic dysfunction. pulm htn CTA chest done on 02/25 did not show PE; consistent with pulmonary edema and pleural effusion bilaterally(more than right side) Patient is off vasopressors since February 27, 2025 and transferred to PCU Status post 5 days of ampicillin Continue on midodrine for low blood pressure. Continue incentive spirometry PT OT evaluation recommended rehab; patient deconditioned significantly from baselinewants to go to rehab. Case management on board #Possible opioid overdose - received Narcan in the ED, Patient is on oxycodone 15 mg 3 times daily as needed at home; was recently prescribed on 02/16. Was given Narcan in the ED possibly precipitating withdrawal Plan to reduce dose to 2.5 mg as needed 3 times daily. She would benefit from outpatient referral for addiction medicine. #ESRD on HD-Dialysis as per nephrology, #Type 2 Diabetes - BSG ACHS - Diabetic diet Hyperlipidemiacontinue simvastatin Mood disorderrcontinue on home meds RLS- continue on ronirole #Anemia - Chronic related to ESRD - no evidence of active bleeding at present Full code DVT prophylaxis heparin Dispositionpatient clinically improving overall with improvement in oxygenation and blood pressure; plan for dialysis today. Possible DC in the a.m. to rehab depending on clinical situation/bed availability Time spent evaluating patient, direct bedside care, chart review, placing orders, interpretation of diagnostic studies, discussion with consultants, patient, as well as other required patient management activities is 50 minutes Please note the above document was generated using voice recognition software. It may contain grammatical, syntax or spelling errors. Any formal questions or concerns about the content, text or information contained within the body of this dictation should be directly addressed to the provider for clarification Admission and Anticipated Discharge Date Admission Date: February 24, 2025 Subjective Patient seen and examined at bedside. She reports that she is feeling weak overall. Denies any particular pain or discomfort. Vital signs appear stable. Review of Systems Review of Systems: All systems reviewed & are unremarkable except as noted in Subjective Physical Exam Physical Exam: Constitutional: Awake, alert oriented x 3. Respiratory: Bilateral basal crackles present. Cardiovascular: RRR, no murmur, no edema Vessels: no JVD or carotid bruit Chest: normal inspection of chest Abdomen: normal bowel sounds, soft, nontender, no hepatosplenomegaly Musculoskeletal: no cyanosis or clubbing, extremities motor strength 5/5 Skin: no rashes, warm and dry normal turgor Neurologic: PERRL, EOMI, accommodation nl, no face palsy, no dysarthria CN's II- XI intact bilaterally and moves all extremities Results & Data Results & Data Vital Signs (Past 12 Hours) Vital Signs Temp Pulse Pulse Resp BP BP Pulse Ox 03/01/25 11:00 81 108/54 L 03/01/25 10:54 84 118/48 L 03/01/25 10:45 36.7 C 03/01/25 09:30 82 03/01/25 08:00 03/01/25 07:34 62 16 98 03/01/25 07:18 36.4 C L 86 17 113/68 99 03/01/25 02:56 36.5 C 88 18 110/67 98 O2 Del Method O2 Flow Rate 03/01/25 11:00 03/01/25 10:54 03/01/25 10:45 03/01/25 09:30 03/01/25 08:00 Nasal Cannula 3 03/01/25 07:34 Nasal Cannula 2 03/01/25 07:18 Nasal Cannula 2 03/01/25 02:56 Nasal Cannula 2 (1) Aspiration pneumonia Aspiration pneumonia type: unspecified Laterality: unspecified laterality Lung location: unspecified part of lung Qualified Code(s): J69.0 - Pneumonitis due to inhalation of food and vomit (2) Opiate overdose Encounter type: initial encounter Injury intent: undetermined intent Qualified Code(s): T40.604A - Poisoning by unspecified narcotics, undetermined, initial encounter (6) DM type 2 (diabetes mellitus, type 2) Chronic kidney disease stage: on chronic dialysis Diabetes mellitus complication detail: with chronic kidney disease Diabetes mellitus complication status: with kidney complications Diabetes mellitus salvage determiner insulin use: without salvage determiner use Qualified Code(s): E11.22 - Type 2 diabetes mellitus with diabetic chronic kidney disease; N18.6 - End stage renal disease; Z99.2 - Dependence on renal dialysis (7) Anemia Anemia type: unspecified type Qualified Code(s): D64.9 - Anemia, unspecified
--- NOTE | 2025-03-01 12:03 | Nephrology Progress Note ---
Date of Service March 01, 2025 Assessment & Plan (1) End stage renal disease on dialysis: Plan: concern her hypotension may stem from worsening RH function in setting of plm HTN. hypotension limiting uf on HD Has had HD this admission so far only with pressor support. This has enabled us to improve her volume status somewhat. She had 3 L UF on both February 25 and . Concerned that with untreated sleep apnea right heart failure is emerging complicated by aspiration pneumonitis and chronic pain/opiate overdose. hgb 9.3, potassium 4.9. Plan routine HD today w/ midodrine else without pressors to see how she does Will continue to emphasize importance of BiPAP/CPAP, cardiology follow-up, extreme care with medications >>had extended goals of care discussion w/ pt today >> she knows she's much more frail than late last year but not ready to stop treatment. does ask what stopping treatment would look like and what sx/timeframe she might have; wants to stay alive for family but also does not want them to watch her suffer -continue during admission phosLo in addition to renvela given phos > 7 >> give ONLY w/ meals; do not d/c on phoslo Care coordinated regarding timing of dialysis and spinal imaging and need for OP cpap/bipap and goals of care with Dr. Sifuentse by phone we are in agreement. Care coordinated also with dialysis nursing team. (2) Right heart failure due to pulmonary hypertension: Plan: Diagnosed October 2022 with severe sleep apnea with hypoxia; has not yet followed up to be fitted for device >>suggest trial cpap/bipap while in house if able > she tolerated 5/12 ON >>>will d/w primary srevice can we/how can we get bipap/cpap for her as OP in expedited way (3) Aspiration pneumonia: Plan: aspiration pneumonitis after emesis during opiate withdrawal this admission > remains on 1L (4) Opiate overdose: Plan: responded to narcan in ED; challenging situation w/ chronic pain for this pt and ESRD since opiates are standard of care here though concerns for hyperalgesia on opiates earlier this year and limited pain mgt options >> at some point ?kyphoplasty T spine? >>primary service aware/titrating meds (5) Frequent falls: Plan: her R knee on admission was scabbed, swollen though nontender; distal RLE is red, warm and slightly swollen. L not so. approx 02/06 she fell down at home, sitting down hard on floor; also saw PCP 02/13 w/ c/o c spine pain and BL arm weakness >>thoracic and multiple lumbar vertebral compression fractures as below (6) Compression fracture of body of thoracic vertebra: Plan: OP chest CT was recommended to further evaluate 02/12 T spine XR given questionable asymmetric disc space widening inferior to vertebral body > at some point suggest full spinal assessment w/ CT and ? eval for kyphoplasty T spine << all as outpatient -no C spine fractures -T spine CF known from OP -stable mild vertebral compression fractures at all lumbar levels per imaging will need T spine CT as OP Admission and Anticipated Discharge Date Admission Date: February 24, 2025 Subjective seen and evaluated before dialysis today. Still quite tired but not as lethargic as yesterday. Denies shortness of breath. Denies uncontrolled pain at this time. Tells me "I know my body is getting tired but I do not want to stop yet" Review of Systems 2 Review of Systems: All systems reviewed & are unremarkable except as noted in Subjective Physical Exam 2 Constitutional: well developed ( tired), + physical limitations, + frail appearing, well groomed and cooperative; no acute distress Eyes: EOM intact bilaterally ENMT: Mouth: + dry oral mucous membranes Respiratory: normal respiratory effort Auscultation: + diminished lung sounds and + crackles Cardiovascular: Rate/Rhythm: regular rate and regular rhythm Heart Sounds: + murmur Extremities: + AV fistula; no edema Gastrointestinal (Abdomen): Inspection/Auscultation: normal bowel sounds P ercussion/Palpation: abdomen soft; abdomen nontender Musculoskeletal: Extremities: strength 5/5 throughout Skin: no rashes, warm and dry Psychiatric: Orientation: oriented x 3, oriented to person, oriented to place and oriented to time; + not alert (lethargic) Results & Data Vital Signs (Past 12 Hours) Vital Signs Temp Pulse Pulse Resp BP BP Pulse Ox 03/01/25 11:00 81 108/54 L 03/01/25 10:54 84 118/48 L 03/01/25 10:45 36.7 C 03/01/25 09:30 82 03/01/25 08:00 03/01/25 07:34 62 16 98 03/01/25 07:18 36.4 C L 86 17 113/68 99 03/01/25 02:56 36.5 C 88 18 110/67 98 O2 Del Method O2 Flow Rate 03/01/25 11:00 03/01/25 10:54 03/01/25 10:45 03/01/25 09:30 03/01/25 08:00 Nasal Cannula 3 03/01/25 07:34 Nasal Cannula 2 03/01/25 07:18 Nasal Cannula 2 03/01/25 02:56 Nasal Cannula 2 Laboratory Results 03/01/25 07:09 03/01/25 07:09 (3) Aspiration pneumonia Aspiration pneumonia type: unspecified Laterality: unspecified laterality L harrison location: unspecified part of lung Qualified Code(s): J69.0 - Pneumonitis due to inhalation of food and vomit (4) Opiate overdose Encounter type: initial encounter Injury intent: undetermined intent Qualified Code(s): T40.604A - Poisoning by unspecified narcotics, undetermined, initial encounter
--- NOTE | 2025-03-01 16:39 | Communication Note ---
Date of Service: March 01, 2025 Discussed with patient's daughter Rosalee at [phone]. Updated her regarding the hospitalization course. Answer questions/queries She reports concern regarding her mom overall decline in functional status given her recent hospitalizations. We discussed that the goal at this time is to see if she can go to rehab to get stronger and get back home. We also discussed if patient wants to stop dialysis; planning can be done regarding possible home hospice. Palliative care has been consulted and as Rosalee would like to be involved in goals of care discussion.
[2025-03-02 07:12] LABS: Basophils # (auto) 0.08 K/uL (0.00-0.20); Basophils % (auto) 1.1 %; Eosinophils # (auto) 0.14 K/uL (0.00-0.50); Eosinophils % (auto) 1.9 %; Hematocrit (blood only) 32.3 % (37.0-47.0); Immature Granulocytes # (auto) 0.03 K/uL (0.01-0.20); Immature Granulocytes % (auto) 0.4 %; Lymphocytes # (auto) 1.02 K/uL (1.20-3.40); Lymphocytes % (auto) 13.5 %; Mean Corpuscular Hemoglobin 32.4 pg (25.0-34.0); Mean Corpuscular Volume 104.5 fL (80.0-100.0); Mean Platelet Volume 9.2 fL (9.4-12.4); Monocytes # (auto) 0.43 K/uL (0.11-0.59); Monocytes % (auto) 5.7 %; Neutrophils # (auto) 5.84 K/uL (1.40-6.50); Neutrophils % (auto) 77.4 %; Nucleated RBC # (auto) 0.02 K/uL (0.00-0.12); Nucleated RBC % (auto) 0.3 %; Platelet Count 210 K/uL (130-400); RDW Standard Deviation 66.1 fL (36.4-46.3); Red Blood Count 3.09 M/uL (4.20-5.40); White Blood Count 7.54 K/ul (4.8-10.8)
[2025-03-02 07:31] LABS: BUN Creatinine Ratio 6.4 (10-20); Calcium 7.4 mg/dl (8.6-10.3); Creatinine Clr Calc Pharmacy 15.2 ml/min; Potassium 3.8 mmol/L (3.5-5.1)
--- NOTE | 2025-03-02 08:46 | Nephrology Progress Note ---
Date of Service March 02, 2025 Assessment & Plan (1) End stage renal disease on dialysis: Plan: concern her hypotension may stem from worsening RH function in setting of plm HTN. hypotension limiting uf on HD recently. Has had HD this admission so far only with pressor support. This has enabled us to improve her volume status somewhat. She had 3 L UF on both February 25 and , 2.5 L on . Concerned that with untreated sleep apnea right heart failure is emerging complicated by aspiration pneumonitis and chronic pain/opiate overdose. hgb 10, potassium 3.8 Plan routine HD tomorrow w/ midodrine Will continue to emphasize importance of BiPAP/CPAP, cardiology follow-up, extreme care with medications >>again had extended goals of care discussion w/ pt today (20+ minutes) >> she knows she's much more frail than late last year but not ready to stop treatment, including not stopping dialysis yet but definitely talking about low threshold for hospice. does NOT want full code (reviewed w/ hospitalist). does talk about saying good bye to dialysis clinic staff and to me (I've followed this pt x 13 years). -continue during admission phosLo in addition to renvela given phos > 7 >> give ONLY w/ meals; do not d/c on phoslo Care coordinated regarding timing of dialysis and goals of care with Dr. Holder in person and palliative team by [employer]; we are in agreement. (2) Right heart failure due to pulmonary hypertension: Plan: Diagnosed October 2022 with severe sleep apnea with hypoxia; has not yet followed up to be fitted for device >>suggest trial cpap/bipap while in house if able > she tolerated / ON >>>depending on goals of d/c primary service to work on can we/how can we get bipap/cpap for her as OP in expedited way (3) Aspiration pneumonia: Plan: aspiration pneumonitis after emesis during opiate withdrawal this admission > remains on 1L (4) Opiate overdose: Plan: responded to narcan in ED; challenging situation w/ chronic pain for this pt and ESRD since opiates are standard of care here though concerns for hyperalgesia on opiates earlier this year and limited pain mgt options >> at some point ?kyphoplasty T spine? >>primary service aware/titrating meds; also changing goals of care to more comfort approach (5) Frequent falls: Plan: her R knee on admission was scabbed, swollen though nontender; distal RLE is red, warm and slightly swollen. L not so. approx 02/06 she fell down at home, sitting down hard on floor; also saw PCP 02/13 w/ c/o c spine pain and BL arm weakness >>thoracic and multiple lumbar vertebral compression fractures as below (6) Compression fracture of body of thoracic vertebra: Plan: OP chest CT was recommended to further evaluate 02/12 T spine XR given questionable asymmetric disc space widening inferior to vertebral body > at some point suggest full spinal assessment w/ CT and ? eval for kyphoplasty T spine << all as outpatient -no C spine fractures -T spine CF known from OP -stable mild vertebral compression fractures at all lumbar levels per imaging will need pain control omar preston (7) Goals of care, counseling/discussion: Plan: palliative on board now extended discussions myself and pt past 2 days Admission and Anticipated Discharge Date Admission Date: February 24, 2025 Subjective no interval events clinically. Struggling to tolerate BiPAP. Thinking the lot about goals of care. Still extremely tired and feels pretty weak. Tolerated dialysis yesterday with 2.5 L UF. Review of Systems 2 Review of Systems: All systems reviewed & are unremarkable except as noted in Subjective Physical Exam 2 Constitutional: well developed ( tired), + physical limitations, + frail appearing, well groomed and cooperative; no acute distress Eyes: EOM intact bilaterally ENMT: Mouth: + dry oral mucous membranes Respiratory: + labored breathing, able to speak in co mplete sentences ( But pauses to breathe between sentences) and + paradoxical thoraco-abdominal movement Auscultation: + diminished lung sounds and + crackles Cardiovascular: Rate/Rhythm: regular rate and regular rhythm Heart Sounds: + murmur Extremities: + AV fistula; no edema Gastrointestinal (Abdomen): Inspection/Auscultation: normal bowel sounds P ercussion/Palpation: abdomen soft; abdomen nontender Musculoskeletal: Extremities: strength 5/5 throughout Skin: no rashes, warm and dry Psychiatric: Orientation: alert ( but tired), oriented x 3, oriented to person, oriented to place and oriented to time Results & Data Vital Signs (Past 12 Hours) Vital Signs Temp Pulse Pulse Pulse Resp BP Pulse Ox 03/02/25 07:28 80 18 94 03/02/25 07:12 36.8 C 77 18 106/62 99 03/02/25 05:43 81 03/02/25 03:07 36.8 C 80 19 110/64 90 03/01/25 23:55 03/01/25 22:55 36.7 C 90 16 121/67 98 03/01/25 21:49 94 H 03/01/25 21:00 81 19 97 O2 Del Method O2 Flow Rate 03/02/25 07:28 Nasal Cannula 2 03/02/25 07:12 Nasal Cannula 2 03/02/25 05:43 03/02/25 03:07 Nasal Cannula 03/01/25 23:55 Nasal Cannula 2 03/01/25 22:55 Nasal Cannula 2.5 03/01/25 21:49 03/01/25 21:00 2 Laboratory Results 03/02/25 06:36 03/02/25 06:36 (3) Aspiration pneumonia Aspiration pneumonia type: unspecified Laterality: unspecified laterality L harrison location: unspecified part of lung Qualified Code(s): J69.0 - Pneumonitis due to inhalation of food and vomit (4) Opiate overdose Encounter type: initial encounter Injury intent: undetermined intent Qualified Code(s): T40.604A - Poisoning by unspecified narcotics, undetermined, initial encounter
--- NOTE | 2025-03-02 11:54 | Palliative Care Consultation ---
Date of Consultation March 02, 2025 Assessment & Plan (1) Generalized weakness: (2) Frequent falls: (3) Advanced care planning/counseling discussion: A 45min face to face detailed ACP discussion was held with pt at bedside. Cara and I discussed and explored her values and goals. She is aware things are changing. We spoke at length about MINDI, PHTN and renal failure. We spoke about options for different PAP masks, as she does not like the ones we have in house (she may do better with nasal wisp vs pillows mask as she does not like the feeling of a lot of "stuff" on her face.) She reaffirmed DNR/DNI. She asked a lot of questions about hospice which I answered for her. She does not want hospice right now, would like to try rehab and see how she can tolerate HD but likes to know she has hospice as a safety net should the next level of care not work out as well for her. She affirms wanting to be home with family. She does not want to suffer and was very vocal about how she hopes she just peacefully dies in her sleep. We discussed her pain mgt and other symptom needs. She is open to following me in OP clinic for ongoing symptom mgt needs. I spoke with her about home health support options with home PT after she finished her time at [facility]. She told me her is in significant denial and asked me to meet with them together to explain things and help him process what's evolving. She is going to speak with him tonight about a tentative meeting for Friday at 11am. She is aware I am in clinic tomorrow and now in hospital. If Friday at 11am works for [employer] she will ask nursing to tiger me to confirm this and I will add it to my calendar upon receiving confirmation. Until then, this will not be a confirmed meeting. Cara is a nora woman and she is truly grateful for all the care she has been receiving this admission. She is especially thankful for Dr. Perez, whom she refers to her as her guardian nga and says the time and energy put into her wellness for the past years has been what gave her so much QOL. The plan of care right now is to continue HD for as long as she can tolerate, but if it starts to hurt more than help, then she is ok stopping it - she does not want to feel worse on her regimen. She is empowered to know she can add hospice at home at that time. Because her ESRD is as a result of DM, she is not covered under the CMS rule for both hospice and HD. A second ACP telephonic discussion was held with pt dtr Rosalee for 30min. All of the above reviewed, questions answered. Rosalee shares that pt/ have a "toxic" relationship, "they bicker all the time." She worries about father's ability to care for pt and has offered to take a month off for FMLA and care for pt but also nots this is not a roller skate assembler solution. She feels father has some unrealistic expectations. There is concern for hoarding and the home is cluttered, not ideally hygienic. Most of the time when Rosalee visits, she stays over at her grandfather's house. The home is in some disrepair and the dog defecates throughout the home, does not clean up well. (4) Chronic pain: (5) Palliative care by specialist: Introduced Palliative Medicine and explained our role in patient's care. Patient and/or family were receptive to palliative services for goals of care discussions. Reviewed we are different from hospice, a home health nurse visiting service. Plan TC to pt daughter Rosalee at [phone]. ACP as above x2 Possible family meeting Friday. Thank you for allowing us to participate in the ongoing care of this patient. Please page with any additional concerns. Derek Myers DNP Director, Palliative Medicine History of Present Illness Reason for Consultation: On 03/01/25 @ 14:34 Dami Sifuentes Wrote To Lakisha Myers goals of care discussion Attending Physician: Roscoe Holder MD History of Present Illness Meka is a 70yo female with End stage renal disease on dialysis with worsening hypotension which is likely d/t worsening RH function in setting of plm HTN. Hypotension is limiting UF on HD; she's had HD this admission so far only with pressor support. This has enabled us to improve her volume status somewhat. She had 3 L UF on both February 25 and . + untreated sleep apnea worsening the right heart failure which is complicated by aspiration pneumonitis and chronic pain/opiate overdose. Dr Perez has been in daily d/w re [facility]: "goals of care discussion w/ pt today >> she knows she's much more frail than late last year but not ready to stop treatment. does ask what stopping treatment would look like and what sx/timeframe she might have; wants to stay alive for family but also does not want them to watch her suffer." +Right heart failure due to pulmonary hypertension: Diagnosed October 2022 with severe sleep apnea with hypoxia; has not yet followed up to be fitted for device +Aspiration pneumonia: aspiration pneumonitis after emesis during opiate withdrawal this admission > remains on 1L +Opiate overdose Allergies Allergy/AdvReac Type Severity Reaction Status Date / Time Sulfa (Sulfonamide Allergy Severe Face/lips/tongue Verified 10/30/24 15:19 Antibiotics) edema nitrofurantoin Allergy Intermediate Hives Verified 10/30/24 15:19 cefazolin [From Ancef] Allergy Unknown CAN'T Verified 10/30/24 15:19 REMEMBER pantoprazole [From Protonix] Allergy Unknown CAN'T Verified 10/30/24 15:19 REMEMBER methylprednisolone AdvReac Intermediate Sweating, Verified 10/30/24 15:19 [From Medrol] heart racing Home Medications Medication Instructions Recorded Confirmed Type gabapentin 100 mg capsule 100 mg PO DIRECTED 12/31/18 02/24/25 History betamethasone dipropionate 0.05 % 1 applic topical BID PRN 11/15/23 02/24/25 History topical ointment PSORIASIS/ITCHING ropinirole 2 mg tablet 2 mg PO HS 11/15/23 02/24/25 History simvastatin 20 mg tablet 20 mg PO HS 11/15/23 02/24/25 History vitamin B complex-vitamin C-folic 1 tab PO QAM 11/15/23 02/24/25 History acid 0.8 mg tablet (Anais-Federico) cholecalciferol (vitamin D3) 125 125 mcg PO UD 09/23/24 02/24/25 History mcg (5,000 unit) tablet (Vitamin D3) cinacalcet 90 mg tablet (Sensipar) 180 mg PO QPM 09/23/24 02/24/25 History epoetin beta, methoxy peg 100 100 mcg IV UD 09/23/24 02/24/25 History mcg/0.3 mL injection syringe (Mircera) iron sucrose 50 mg iron/2.5 mL 50 mg IV UD 09/23/24 02/24/25 History intravenous solution lanthanum 750 mg chewable tablet 750 mg PO TIDWMEAL 10/30/24 02/24/25 History (Fosrenol) triamcinolone acetonide 0.1 % 1 applic topical BID PRN Skin 10/30/24 02/24/25 History topical ointment Irritation midodrine 2.5 mg tablet 5 mg PO UD 12/21/24 02/24/25 History guaifenesin 600 mg tablet, 600 mg PO Q12 PRN cough/congestion 12/23/24 02/24/25 Rx extended release 12 hr (Mucinex) #30 tabs citalopram 10 mg tablet 10 mg PO DAILY 02/24/25 02/24/25 History dulaglutide 0.75 mg/0.5 mL 0.75 mg subcut WK 02/24/25 02/24/25 History subcutaneous pen injector (Trulicity) lorazepam 0.5 mg tablet 0.5 mg PO HS PRN Anxiety 02/24/25 02/24/25 History oxycodone 15 mg tablet 15 mg PO Q8H PRN Pain, Severe 02/24/25 02/24/25 History paroxetine HCl 10 mg tablet 10 mg PO DAILY 02/24/25 02/24/25 History Patient History Medical History (Updated 03/02/25 @ 12:41 by Lakisha Myers, RAMONA) Advanced care planning/counseling discussion Swelling of right upper extremity Lower urinary tract symptoms (LUTS) Hx of fall ESRD (end stage renal disease) on dialysis Diaylsis Tu//Sat- [facility] Follows with Dr. Perez Chronic pain History of cellulitis Anemia Hx of gastrointestinal hemorrhage History of dialysis fistulography Ambulatory dysfunction walker-dependent Anxiety and depression RLS (restless legs syndrome) History of blood transfusion 2022 Pulmonary hypertension mild on 2020 echo Sleep apnea severe-not currently treated per pt Moderate aortic stenosis (MELCHOR 0.8 cm2, mean PG 20 mmHg) Diabetes mellitus, type 2 Limb alert care status RUE AVF Osteoporosis HLD (hyperlipidemia) Psoriasis History of renal calculi History of DVT (deep vein thrombosis) RLE, 10+ years ago, post op AC therapy x 3-6 months after > d/c'd + no issues since History of pulmonary embolus (PE) 10+ years ago, post op- no issues since Surgical History History of esophagogastroduodenoscopy (EGD) Hx of bilateral hip replacements H/O laparoscopy History of cystoscopy S/P arteriovenous (AV) fistula repair (~2020) x2 right- currently getting HD History of tooth extraction History of x 2 S/P arteriovenous (AV) fistula creation x 2 BL (non functioning on left)--left still in place not working History of colonoscopy H/O partial resection of colon (2012) For diverticulitis H/O inguinal hernia repair left S/P cholecystectomy Family History Mother Diabetes Sister Diabetes Other No family history of adverse response to anesthesia Social History Smoking Status: Never smoker Tobacco Type: Cigarettes Second Hand Exposure: No; Do You Dip or Chew Tobacco: No; Hx Alcohol Use: No Hx Substance Use: No Preferred Language: Yakut Communication Ability: Effective Sql Application Developer Required: No Beliefs That Will Affect Care: None marital status: Current Living Situation: Spouse Current Living Situation Comment: lives in 2 story home with , daughter and grandson How many Children do You have: 3 Other Information That Helps Us Care for You: No Feels Safe at Home: Yes Safety Concerns: Feels Safe At This Time Assistive Devices: Oxygen - Continuous and Walker Review of Systems Review of Systems: All systems reviewed & are unremarkable except as noted in Subjective Physical Exam Physical Exam: Constitutional: mild bitemp wasting PERRLA, EOMIs Neck supple, no stridor. Chest: Bilateral basal crackles present. CV: RRR, no murmur, no edema no gross JVD or carotid bruit Abd: BS+, soft, ntp, no hepatosplenomegaly Musculoskeletal: no cyanosis or clubbing, decreased strength Skin: +vasc insuff changes BLE, +woody texture [id number] Results & Data Vital Signs (Past 12 Hours) Vital Signs Temp Pulse Pulse Pulse Resp BP Pulse Ox 03/02/25 10:39 36.6 C 84 17 117/64 98 03/02/25 07:28 80 18 94 03/02/25 07:12 36.8 C 77 18 106/62 99 03/02/25 05:43 81 03/02/25 03:07 36.8 C 80 19 110/64 90 03/01/25 23:55 O2 Del Method O2 Flow Rate 03/02/25 10:39 Nasal Cannula 2 03/02/25 07:28 Nasal Cannula 2 03/02/25 07:12 Nasal Cannula 2 03/02/25 05:43 03/02/25 03:07 Nasal Cannula 03/01/25 23:55 Nasal Cannula 2 Laboratory Results 03/02/25 03/01/25 02/28/25 Range/Units 06:36 07:09 07:21 WBC 7.54 7.54 (4.8-10.8) K/ul RBC 3.09 L 2.88 L (4.20-5.40) M/uL Hgb 10.0 L 9.3 L (12.0-16.0) g/dl Hct 32.3 L 30.3 L (37.0-47.0) % MCV 104.5 H 105.2 H (80.0-100.0) fL MCH 32.4 32.3 (25.0-34.0) pg MCHC 31.0 L 30.7 L (32.0-36.0) g/dL RDW Std Deviation 66.1 H 64.8 H (36.4-46.3) fL RDW Coeff of Erum 18.0 H 18.1 H (11.5-14.5) % Plt Count 210 210 (130-400) K/uL MPV 9.2 L 9.1 L (9.4-12.4) fL Immature Gran % (Auto) 0.4 1.1 % Neut % (Auto) 77.4 80.1 % Lymph % (Auto) 13.5 11.0 % [place] % (Auto) 5.7 4.4 % Eos % (Auto) 1.9 2.5 % Baso % (Auto) 1.1 0.9 % Neut # (Auto) 5.84 6.04 (1.40-6.50) K/uL Lymph # (Auto) 1.02 L 0.83 L (1.20-3.40) K/uL [place] # (Auto) 0.43 0.33 (0.11-0.59) K/uL Eos # (Auto) 0.14 0.19 (0.00-0.50) K/uL Baso # (Auto) 0.08 0.07 (0.00-0.20) K/uL Immature Gran # (Auto) 0.03 0.08 (0.01-0.20) K/uL Absolute Nucleated RBC 0.02 0.04 (0.00-0.12) K/uL Nucleated RBC % (auto) 0.3 0.5 % PT (9.0-12.0) Seconds INR (0.9-1.1) APTT (21-31) Seconds PTT Ratio Sodium 138 137 (136-145) mmol/L Potassium 3.8 D 4.9 (3.5-5.1) mmol/L Chloride 99 99 (98-107) mmol/L Carbon Dioxide 28 25 (21-32) mmol/L Anion Gap 11 13 H (3-11) BUN 21 D 48 H (6-23) mg/dl Creatinine 3.27 H D 5.57 H* D (0.6-1.2) mg/dl Est Cr Clr Drug Dosing 15.2 9.0 ml/min eGFR 14.53 7.67 BUN/Creatinine Ratio 6.4 L 8.6 L (10-20) Glucose 74 74 (70-99(Fasting)) mg/dl POC Glucose 102 H (70-99) mg/dl POC Glucose (other) (70-99) mg/dl Lactate (0.4-2.0) mmol/L Calcium 7.4 L 6.9 L (8.6-10.3) mg/dl Phosphorus 7.9 H (2.5-4.9) mg/dl Magnesium 2.5 H (1.7-2.4) mg/dl Total Bilirubin (0.2-1.0) mg/dl AST (13-39) U/L ALT (7-52) U/L Alkaline Phosphatase (34-104) U/L Troponin I High Sens (0-14) pg/ml Total Protein (6.0-8.3) gm/dl Albumin (3.4-5.0) gm/dl Globulin (2.5-4.0) gm/dl Albumin/Globulin Ratio (0.9-2) TSH (0.300-4.500) uIu/ml Urine Color Urine Appearance (Clear) Urine pH (4.5-7.5) Ur Specific Exchange (1.000-1.030) Urine Protein (Negative) Urine Glucose (UA) (Negative) Urine Ketones (Negative) Urine Blood (Negative) Urine Nitrite (Negative) Urine Bilirubin (Negative) Urine Urobilinogen (Negative) Ur Leukocyte Esterase (Negative) Urine WBC (Auto) (0-5) /hpf Urine RBC (Auto) (0-2) /hpf U Hyaline Cast (Auto) (0-2) /lpf U Epithel Cells (Auto) (0-2) /hpf Urine Bacteria (Auto) (None Seen) Nasal Screen MRSA (PCR) (Negative) SARS-CoV-2 (PCR) (Negative) Hep Bs Antigen (Negative) Hep Bs Antibody Hep Bs Antibody, Quant (>or=10mIU/mL Immune) mIU/mL Influenza Type A (PCR) (Neg) Influenza Type B (PCR) (Neg) RSV (RT-PCR) (Neg) 02/28/25 02/27/25 02/27/25 Range/Units 07:08 20:52 12:27 WBC (4.8-10.8) K/ul RBC (4.20-5.40) M/uL Hgb (12.0-16.0) g/dl Hct (37.0-47.0) % MCV (80.0-100.0) fL MCH (25.0-34.0) pg MCHC (32.0-36.0) g/dL RDW Std Deviation (36.4-46.3) fL RDW Coeff of Erum (11.5-14.5) % Plt Count (130-400) K/uL MPV (9.4-12.4) fL Immature Gran % (Auto) % Neut % (Auto) % Lymph % (Auto) % [place] % (Auto) % Eos % (Auto) % Baso % (Auto) % Neut # (Auto) (1.40-6.50) K/uL Lymph # (Auto) (1.20-3.40) K/uL [place] # (Auto) (0.11-0.59) K/uL Eos # (Auto) (0.00-0.50) K/uL Baso # (Auto) (0.00-0.20) K/uL Immature Gran # (Auto) (0.01-0.20) K/uL Absolute Nucleated RBC (0.00-0.12) K/uL Nucleated RBC % (auto) % PT (9.0-12.0) Seconds INR (0.9-1.1) APTT (21-31) Seconds PTT Ratio Sodium 138 (136-145) mmol/L Potassium 4.2 (3.5-5.1) mmol/L Chloride 100 (98-107) mmol/L Carbon Dioxide 28 (21-32) mmol/L Anion Gap 10 (3-11) BUN 36 H (6-23) mg/dl Creatinine 4.28 H D (0.6-1.2) mg/dl Est Cr Clr Drug Dosing 11.8 ml/min eGFR 10.52 BUN/Creatinine Ratio 8.4 L (10-20) Glucose 96 (70-99(Fasting)) mg/dl POC Glucose 93 93 (70-99) mg/dl POC Glucose (other) (70-99) mg/dl Lactate (0.4-2.0) mmol/L Calcium 7.2 L (8.6-10.3) mg/dl Phosphorus 7.1 H (2.5-4.9) mg/dl Magnesium 2.4 (1.7-2.4) mg/dl Total Bilirubin (0.2-1.0) mg/dl AST (13-39) U/L ALT (7-52) U/L Alkaline Phosphatase (34-104) U/L Troponin I High Sens (0-14) pg/ml Total Protein (6.0-8.3) gm/dl Albumin (3.4-5.0) gm/dl Globulin (2.5-4.0) gm/dl Albumin/Globulin Ratio (0.9-2) TSH (0.300-4.500) uIu/ml Urine Color Urine Appearance (Clear) Urine pH (4.5-7.5) Ur Specific Exchange (1.000-1.030) Urine Protein (Negative) Urine Glucose (UA) (Negative) Urine Ketones (Negative) Urine Blood (Negative) Urine Nitrite (Negative) Urine Bilirubin (Negative) Urine Urobilinogen (Negative) Ur Leukocyte Esterase (Negative) Urine WBC (Auto) (0-5) /hpf Urine RBC (Auto) (0-2) /hpf U Hyaline Cast (Auto) (0-2) /lpf U Epithel Cells (Auto) (0-2) /hpf Urine Bacteria (Auto) (None Seen) Nasal Screen MRSA (PCR) (Negative) SARS-CoV-2 (PCR) (Negative) Hep Bs Antigen (Negative) Hep Bs Antibody Hep Bs Antibody, Quant (>or=10mIU/mL Immune) mIU/mL Influenza Type A (PCR) (Neg) Influenza Type B (PCR) (Neg) RSV (RT-PCR) (Neg) 02/27/25 02/26/25 02/26/25 Range/Units 05:07 21:46 16:25 WBC 8.10 (4.8-10.8) K/ul RBC 2.87 L (4.20-5.40) M/uL Hgb 9.2 L (12.0-16.0) g/dl Hct 30.0 L (37.0-47.0) % MCV 104.5 H (80.0-100.0) fL MCH 32.1 (25.0-34.0) pg MCHC 30.7 L (32.0-36.0) g/dL RDW Std Deviation 60.5 H (36.4-46.3) fL RDW Coeff of Erum 16.8 H (11.5-14.5) % Plt Count 217 (130-400) K/uL MPV 9.4 (9.4-12.4) fL Immature Gran % (Auto) 1.1 % Neut % (Auto) 73.8 % Lymph % (Auto) 8.5 % [place] % (Auto) 8.1 % Eos % (Auto) 7.0 % Baso % (Auto) 1.5 % Neut # (Auto) 5.97 (1.40-6.50) K/uL Lymph # (Auto) 0.69 L (1.20-3.40) K/uL [place] # (Auto) 0.66 H (0.11-0.59) K/uL Eos # (Auto) 0.57 H (0.00-0.50) K/uL Baso # (Auto) 0.12 (0.00-0.20) K/uL Immature Gran # (Auto) 0.09 (0.01-0.20) K/uL Absolute Nucleated RBC 0.06 (0.00-0.12) K/uL Nucleated RBC % (auto) 0.7 % PT (9.0-12.0) Seconds INR (0.9-1.1) APTT (21-31) Seconds PTT Ratio Sodium 137 (136-145) mmol/L Potassium 4.0 (3.5-5.1) mmol/L Chloride 99 (98-107) mmol/L Carbon Dioxide 27 (21-32) mmol/L Anion Gap 11 (3-11) BUN 24 H (6-23) mg/dl Creatinine 2.90 H D (0.6-1.2) mg/dl Est Cr Clr Drug Dosing 17.6 ml/min eGFR 16.79 BUN/Creatinine Ratio 8.3 L (10-20) Glucose 95 (70-99(Fasting)) mg/dl POC Glucose 184 H (70-99) mg/dl POC Glucose (other) 149 H (70-99) mg/dl Lactate (0.4-2.0) mmol/L Calcium 7.8 L (8.6-10.3) mg/dl Phosphorus 6.1 H (2.5-4.9) mg/dl Magnesium 2.2 (1.7-2.4) mg/dl Total Bilirubin (0.2-1.0) mg/dl AST (13-39) U/L ALT (7-52) U/L Alkaline Phosphatase (34-104) U/L Troponin I High Sens (0-14) pg/ml Total Protein (6.0-8.3) gm/dl Albumin (3.4-5.0) gm/dl Globulin (2.5-4.0) gm/dl Albumin/Globulin Ratio (0.9-2) TSH (0.300-4.500) uIu/ml Urine Color Urine Appearance (Clear) Urine pH (4.5-7.5) Ur Specific Exchange (1.000-1.030) Urine Protein (Negative) Urine Glucose (UA) (Negative) Urine Ketones (Negative) Urine Blood (Negative) Urine Nitrite (Negative) Urine Bilirubin (Negative) Urine Urobilinogen (Negative) Ur Leukocyte Esterase (Negative) Urine WBC (Auto) (0-5) /hpf Urine RBC (Auto) (0-2) /hpf U Hyaline Cast (Auto) (0-2) /lpf U Epithel Cells (Auto) (0-2) /hpf Urine Bacteria (Auto) (None Seen) Nasal Screen MRSA (PCR) (Negative) SARS-CoV-2 (PCR) (Negative) Hep Bs Antigen (Negative) Hep Bs Antibody Hep Bs Antibody, Quant (>or=10mIU/mL Immune) mIU/mL Influenza Type A (PCR) (Neg) Influenza Type B (PCR) (Neg) RSV (RT-PCR) (Neg) 02/26/25 02/26/25 02/26/25 Range/Units 11:34 11:32 07:19 WBC (4.8-10.8) K/ul RBC (4.20-5.40) M/uL Hgb (12.0-16.0) g/dl Hct (37.0-47.0) % MCV (80.0-100.0) fL MCH (25.0-34.0) pg MCHC (32.0-36.0) g/dL RDW Std Deviation (36.4-46.3) fL RDW Coeff of Erum (11.5-14.5) % Plt Count (130-400) K/uL MPV (9.4-12.4) fL Immature Gran % (Auto) % Neut % (Auto) % Lymph % (Auto) % [place] % (Auto) % Eos % (Auto) % Baso % (Auto) % Neut # (Auto) (1.40-6.50) K/uL Lymph # (Auto) (1.20-3.40) K/uL [place] # (Auto) (0.11-0.59) K/uL Eos # (Auto) (0.00-0.50) K/uL Baso # (Auto) (0.00-0.20) K/uL Immature Gran # (Auto) (0.01-0.20) K/uL Absolute Nucleated RBC (0.00-0.12) K/uL Nucleated RBC % (auto) % PT (9.0-12.0) Seconds INR (0.9-1.1) APTT (21-31) Seconds PTT Ratio Sodium (136-145) mmol/L Potassium (3.5-5.1) mmol/L Chloride (98-107) mmol/L Carbon Dioxide (21-32) mmol/L Anion Gap (3-11) BUN (6-23) mg/dl Creatinine (0.6-1.2) mg/dl Est Cr Clr Drug Dosing ml/min eGFR BUN/Creatinine Ratio (10-20) Glucose (70-99(Fasting)) mg/dl POC Glucose 112 H 110 H (70-99) mg/dl POC Glucose (other) (70-99) mg/dl Lactate (0.4-2.0) mmol/L Calcium (8.6-10.3) mg/dl Phosphorus (2.5-4.9) mg/dl Magnesium (1.7-2.4) mg/dl Total Bilirubin (0.2-1.0) mg/dl AST (13-39) U/L ALT (7-52) U/L Alkaline Phosphatase (34-104) U/L Troponin I High Sens 20.7 H (0-14) pg/ml Total Protein (6.0-8.3) gm/dl Albumin (3.4-5.0) gm/dl Globulin (2.5-4.0) gm/dl Albumin/Globulin Ratio (0.9-2) TSH (0.300-4.500) uIu/ml Urine Color Urine Appearance (Clear) Urine pH (4.5-7.5) Ur Specific Exchange (1.000-1.030) Urine Protein (Negative) Urine Glucose (UA) (Negative) Urine Ketones (Negative) Urine Blood (Negative) Urine Nitrite (Negative) Urine Bilirubin (Negative) Urine Urobilinogen (Negative) Ur Leukocyte Esterase (Negative) Urine WBC (Auto) (0-5) /hpf Urine RBC (Auto) (0-2) /hpf U Hyaline Cast (Auto) (0-2) /lpf U Epithel Cells (Auto) (0-2) /hpf Urine Bacteria (Auto) (None Seen) Nasal Screen MRSA (PCR) (Negative) SARS-CoV-2 (PCR) (Negative) Hep Bs Antigen (Negative) Hep Bs Antibody Hep Bs Antibody, Quant (>or=10mIU/mL Immune) mIU/mL Influenza Type A (PCR) (Neg) Influenza Type B (PCR) (Neg) RSV (RT-PCR) (Neg) 02/26/25 02/25/25 02/25/25 Range/Units 04:59 21:28 16:57 WBC 8.44 (4.8-10.8) K/ul RBC 3.01 L (4.20-5.40) M/uL Hgb 9.6 L (12.0-16.0) g/dl Hct 30.9 L (37.0-47.0) % MCV 102.7 H (80.0-100.0) fL MCH 31.9 (25.0-34.0) pg MCHC 31.1 L (32.0-36.0) g/dL RDW Std Deviation 59.5 H (36.4-46.3) fL RDW Coeff of Erum 16.6 H (11.5-14.5) % Plt Count 244 (130-400) K/uL MPV 9.0 L (9.4-12.4) fL Immature Gran % (Auto) 0.8 % Neut % (Auto) 81.4 % Lymph % (Auto) 5.9 % [place] % (Auto) 7.2 % Eos % (Auto) 3.9 % Baso % (Auto) 0.8 % Neut # (Auto) 6.86 H (1.40-6.50) K/uL Lymph # (Auto) 0.50 L (1.20-3.40) K/uL [place] # (Auto) 0.61 H (0.11-0.59) K/uL Eos # (Auto) 0.33 (0.00-0.50) K/uL Baso # (Auto) 0.07 (0.00-0.20) K/uL Immature Gran # (Auto) 0.07 (0.01-0.20) K/uL Absolute Nucleated RBC 0.04 (0.00-0.12) K/uL Nucleated RBC % (auto) 0.5 % PT (9.0-12.0) Seconds INR (0.9-1.1) APTT (21-31) Seconds PTT Ratio Sodium 135 L (136-145) mmol/L Potassium 4.3 (3.5-5.1) mmol/L Chloride 98 (98-107) mmol/L Carbon Dioxide 28 (21-32) mmol/L Anion Gap 9 (3-11) BUN 32 H D (6-23) mg/dl Creatinine 3.41 H D (0.6-1.2) mg/dl Est Cr Clr Drug Dosing 14.9 ml/min eGFR 13.82 BUN/Creatinine Ratio 9.4 L (10-20) Glucose 121 H (70-99(Fasting)) mg/dl POC Glucose 154 H (70-99) mg/dl POC Glucose (other) (70-99) mg/dl Lactate (0.4-2.0) mmol/L Calcium 8.2 L (8.6-10.3) mg/dl Phosphorus (2.5-4.9) mg/dl Magnesium (1.7-2.4) mg/dl Total Bilirubin (0.2-1.0) mg/dl AST (13-39) U/L ALT (7-52) U/L Alkaline Phosphatase (34-104) U/L Troponin I High Sens (0-14) pg/ml Total Protein (6.0-8.3) gm/dl Albumin (3.4-5.0) gm/dl Globulin (2.5-4.0) gm/dl Albumin/Globulin Ratio (0.9-2) TSH (0.300-4.500) uIu/ml Urine Color Yellow Urine Appearance Turbid A (Clear) Urine pH 8.0 H (4.5-7.5) Ur Specific Exchange 1.013 (1.000-1.030) Urine Protein 3+ H (Negative) Urine Glucose (UA) Negative (Negative) Urine Ketones Negative (Negative) Urine Blood 3+ H (Negative) Urine Nitrite Negative (Negative) Urine Bilirubin Negative (Negative) Urine Urobilinogen Negative (Negative) Ur Leukocyte Esterase 3+ H (Negative) Urine WBC (Auto) >50 H (0-5) /hpf Urine RBC (Auto) >20 H (0-2) /hpf U Hyaline Cast (Auto) >20 H (0-2) /lpf U Epithel Cells (Auto) >20 H (0-2) /hpf Urine Bacteria (Auto) 4+ H (None Seen) Nasal Screen MRSA (PCR) (Negative) SARS-CoV-2 (PCR) (Negative) Hep Bs Antigen (Negative) Hep Bs Antibody Hep Bs Antibody, Quant (>or=10mIU/mL Immune) mIU/mL Influenza Type A (PCR) (Neg) Influenza Type B (PCR) (Neg) RSV (RT-PCR) (Neg) 02/25/25 02/25/25 02/25/25 Range/Units 15:33 13:02 11:43 WBC (4.8-10.8) K/ul RBC (4.20-5.40) M/uL Hgb (12.0-16.0) g/dl Hct (37.0-47.0) % MCV (80.0-100.0) fL MCH (25.0-34.0) pg MCHC (32.0-36.0) g/dL RDW Std Deviation (36.4-46.3) fL RDW Coeff of Erum (11.5-14.5) % Plt Count (130-400) K/uL MPV (9.4-12.4) fL Immature Gran % (Auto) % Neut % (Auto) % Lymph % (Auto) % [place] % (Auto) % Eos % (Auto) % Baso % (Auto) % Neut # (Auto) (1.40-6.50) K/uL Lymph # (Auto) (1.20-3.40) K/uL [place] # (Auto) (0.11-0.59) K/uL Eos # (Auto) (0.00-0.50) K/uL Baso # (Auto) (0.00-0.20) K/uL Immature Gran # (Auto) (0.01-0.20) K/uL Absolute Nucleated RBC (0.00-0.12) K/uL Nucleated RBC % (auto) % PT (9.0-12.0) Seconds INR (0.9-1.1) APTT (21-31) Seconds PTT Ratio Sodium (136-145) mmol/L Potassium (3.5-5.1) mmol/L Chloride (98-107) mmol/L Carbon Dioxide (21-32) mmol/L Anion Gap (3-11) BUN (6-23) mg/dl Creatinine (0.6-1.2) mg/dl Est Cr Clr Drug Dosing ml/min eGFR BUN/Creatinine Ratio (10-20) Glucose (70-99(Fasting)) mg/dl POC Glucose 90 99 (70-99) mg/dl POC Glucose (other) (70-99) mg/dl Lactate (0.4-2.0) mmol/L Calcium (8.6-10.3) mg/dl Phosphorus (2.5-4.9) mg/dl Magnesium (1.7-2.4) mg/dl Total Bilirubin (0.2-1.0) mg/dl AST (13-39) U/L ALT (7-52) U/L Alkaline Phosphatase (34-104) U/L Troponin I High Sens (0-14) pg/ml Total Protein (6.0-8.3) gm/dl Albumin (3.4-5.0) gm/dl Globulin (2.5-4.0) gm/dl Albumin/Globulin Ratio (0.9-2) TSH (0.300-4.500) uIu/ml Urine Color Urine Appearance (Clear) Urine pH (4.5-7.5) Ur Specific Exchange (1.000-1.030) Urine Protein (Negative) Urine Glucose (UA) (Negative) Urine Ketones (Negative) Urine Blood (Negative) Urine Nitrite (Negative) Urine Bilirubin (Negative) Urine Urobilinogen (Negative) Ur Leukocyte Esterase (Negative) Urine WBC (Auto) (0-5) /hpf Urine RBC (Auto) (0-2) /hpf U Hyaline Cast (Auto) (0-2) /lpf U Epithel Cells (Auto) (0-2) /hpf Urine Bacteria (Auto) (None Seen) Nasal Screen MRSA (PCR) (Negative) SARS-CoV-2 (PCR) (Negative) Hep Bs Antigen Negative (Negative) Hep Bs Antibody Immune Hep Bs Antibody, Quant 98.80 (>or=10mIU/mL Immune) mIU/mL Influenza Type A (PCR) (Neg) Influenza Type B (PCR) (Neg) RSV (RT-PCR) (Neg) 02/25/25 02/25/25 02/25/25 Range/Units 11:13 06:04 04:57 WBC 8.08 (4.8-10.8) K/ul RBC 2.82 L (4.20-5.40) M/uL Hgb 9.0 L (12.0-16.0) g/dl Hct 29.0 L (37.0-47.0) % MCV 102.8 H (80.0-100.0) fL MCH 31.9 (25.0-34.0) pg MCHC 31.0 L (32.0-36.0) g/dL RDW Std Deviation 58.3 H (36.4-46.3) fL RDW Coeff of Erum 16.4 H (11.5-14.5) % Plt Count 309 (130-400) K/uL MPV 9.3 L (9.4-12.4) fL Immature Gran % (Auto) 0.5 % Neut % (Auto) 71.2 % Lymph % (Auto) 14.6 % [place] % (Auto) 7.8 % Eos % (Auto) 5.0 % Baso % (Auto) 0.9 % Neut # (Auto) 5.76 (1.40-6.50) K/uL Lymph # (Auto) 1.18 L (1.20-3.40) K/uL [place] # (Auto) 0.63 H (0.11-0.59) K/uL Eos # (Auto) 0.40 (0.00-0.50) K/uL Baso # (Auto) 0.07 (0.00-0.20) K/uL Immature Gran # (Auto) 0.04 (0.01-0.20) K/uL Absolute Nucleated RBC (0.00-0.12) K/uL Nucleated RBC % (auto) % PT (9.0-12.0) Seconds INR (0.9-1.1) APTT (21-31) Seconds PTT Ratio Sodium 136 (136-145) mmol/L Potassium 5.1 D (3.5-5.1) mmol/L Chloride 98 (98-107) mmol/L Carbon Dioxide 27 (21-32) mmol/L Anion Gap 11 (3-11) BUN 61 H (6-23) mg/dl Creatinine 5.02 H* D (0.6-1.2) mg/dl Est Cr Clr Drug Dosing 10.2 ml/min eGFR 8.69 BUN/Creatinine Ratio 12.2 (10-20) Glucose 69 L (70-99(Fasting)) mg/dl POC Glucose 95 (70-99) mg/dl POC Glucose (other) (70-99) mg/dl Lactate (0.4-2.0) mmol/L Calcium 7.9 L (8.6-10.3) mg/dl Phosphorus 7.8 H (2.5-4.9) mg/dl Magnesium 2.4 (1.7-2.4) mg/dl Total Bilirubin (0.2-1.0) mg/dl AST (13-39) U/L ALT (7-52) U/L Alkaline Phosphatase (34-104) U/L Troponin I High Sens 27.8 H (0-14) pg/ml Total Protein (6.0-8.3) gm/dl Albumin (3.4-5.0) gm/dl Globulin (2.5-4.0) gm/dl Albumin/Globulin Ratio (0.9-2) TSH (0.300-4.500) uIu/ml Urine Color Urine Appearance (Clear) Urine pH (4.5-7.5) Ur Specific Exchange (1.000-1.030) Urine Protein (Negative) Urine Glucose (UA) (Negative) Urine Ketones (Negative) Urine Blood (Negative) Urine Nitrite (Negative) Urine Bilirubin (Negative) Urine Urobilinogen (Negative) Ur Leukocyte Esterase (Negative) Urine WBC (Auto) (0-5) /hpf Urine RBC (Auto) (0-2) /hpf U Hyaline Cast (Auto) (0-2) /lpf U Epithel Cells (Auto) (0-2) /hpf Urine Bacteria (Auto) (None Seen) Nasal Screen MRSA (PCR) (Negative) SARS-CoV-2 (PCR) (Negative) Hep Bs Antigen (Negative) Hep Bs Antibody Hep Bs Antibody, Quant (>or=10mIU/mL Immune) mIU/mL Influenza Type A (PCR) (Neg) Influenza Type B (PCR) (Neg) RSV (RT-PCR) (Neg) 02/25/25 02/25/25 02/25/25 Range/Units 04:55 04:53 00:04 WBC (4.8-10.8) K/ul RBC (4.20-5.40) M/uL Hgb (12.0-16.0) g/dl Hct (37.0-47.0) % MCV (80.0-100.0) fL MCH (25.0-34.0) pg MCHC (32.0-36.0) g/dL RDW Std Deviation (36.4-46.3) fL RDW Coeff of Erum (11.5-14.5) % Plt Count (130-400) K/uL MPV (9.4-12.4) fL Immature Gran % (Auto) % Neut % (Auto) % Lymph % (Auto) % [place] % (Auto) % Eos % (Auto) % Baso % (Auto) % Neut # (Auto) (1.40-6.50) K/uL Lymph # (Auto) (1.20-3.40) K/uL [place] # (Auto) (0.11-0.59) K/uL Eos # (Auto) (0.00-0.50) K/uL Baso # (Auto) (0.00-0.20) K/uL Immature Gran # (Auto) (0.01-0.20) K/uL Absolute Nucleated RBC (0.00-0.12) K/uL Nucleated RBC % (auto) % PT (9.0-12.0) Seconds INR (0.9-1.1) APTT (21-31) Seconds PTT Ratio Sodium (136-145) mmol/L Potassium (3.5-5.1) mmol/L Chloride (98-107) mmol/L Carbon Dioxide (21-32) mmol/L Anion Gap (3-11) BUN (6-23) mg/dl Creatinine (0.6-1.2) mg/dl Est Cr Clr Drug Dosing ml/min eGFR BUN/Creatinine Ratio (10-20) Glucose (70-99(Fasting)) mg/dl POC Glucose 70 69 L* 82 (70-99) mg/dl POC Glucose (other) (70-99) mg/dl Lactate (0.4-2.0) mmol/L Calcium (8.6-10.3) mg/dl Phosphorus (2.5-4.9) mg/dl Magnesium (1.7-2.4) mg/dl Total Bilirubin (0.2-1.0) mg/dl AST (13-39) U/L ALT (7-52) U/L Alkaline Phosphatase (34-104) U/L Troponin I High Sens (0-14) pg/ml Total Protein (6.0-8.3) gm/dl Albumin (3.4-5.0) gm/dl Globulin (2.5-4.0) gm/dl Albumin/Globulin Ratio (0.9-2) TSH (0.300-4.500) uIu/ml Urine Color Urine Appearance (Clear) Urine pH (4.5-7.5) Ur Specific Exchange (1.000-1.030) Urine Protein (Negative) Urine Glucose (UA) (Negative) Urine Ketones (Negative) Urine Blood (Negative) Urine Nitrite (Negative) Urine Bilirubin (Negative) Urine Urobilinogen (Negative) Ur Leukocyte Esterase (Negative) Urine WBC (Auto) (0-5) /hpf Urine RBC (Auto) (0-2) /hpf U Hyaline Cast (Auto) (0-2) /lpf U Epithel Cells (Auto) (0-2) /hpf Urine Bacteria (Auto) (None Seen) Nasal Screen MRSA (PCR) (Negative) SARS-CoV-2 (PCR) (Negative) Hep Bs Antigen (Negative) Hep Bs Antibody Hep Bs Antibody, Quant (>or=10mIU/mL Immune) mIU/mL Influenza Type A (PCR) (Neg) Influenza Type B (PCR) (Neg) RSV (RT-PCR) (Neg) 02/24/25 02/24/25 02/24/25 Range/Units Unknown 21:06 17:44 WBC (4.8-10.8) K/ul RBC (4.20-5.40) M/uL Hgb (12.0-16.0) g/dl Hct (37.0-47.0) % MCV (80.0-100.0) fL MCH (25.0-34.0) pg MCHC (32.0-36.0) g/dL RDW Std Deviation (36.4-46.3) fL RDW Coeff of Erum (11.5-14.5) % Plt Count (130-400) K/uL MPV (9.4-12.4) fL Immature Gran % (Auto) % Neut % (Auto) % Lymph % (Auto) % [place] % (Auto) % Eos % (Auto) % Baso % (Auto) % Neut # (Auto) (1.40-6.50) K/uL Lymph # (Auto) (1.20-3.40) K/uL [place] # (Auto) (0.11-0.59) K/uL Eos # (Auto) (0.00-0.50) K/uL Baso # (Auto) (0.00-0.20) K/uL Immature Gran # (Auto) (0.01-0.20) K/uL Absolute Nucleated RBC (0.00-0.12) K/uL Nucleated RBC % (auto) % PT (9.0-12.0) Seconds INR (0.9-1.1) APTT (21-31) Seconds PTT Ratio Sodium (136-145) mmol/L Potassium (3.5-5.1) mmol/L Chloride (98-107) mmol/L Carbon Dioxide (21-32) mmol/L Anion Gap (3-11) BUN (6-23) mg/dl Creatinine (0.6-1.2) mg/dl Est Cr Clr Drug Dosing ml/min eGFR BUN/Creatinine Ratio (10-20) Glucose (70-99(Fasting)) mg/dl POC Glucose 88 93 (70-99) mg/dl POC Glucose (other) (70-99) mg/dl Lactate (0.4-2.0) mmol/L Calcium (8.6-10.3) mg/dl Phosphorus (2.5-4.9) mg/dl Magnesium (1.7-2.4) mg/dl Total Bilirubin (0.2-1.0) mg/dl AST (13-39) U/L ALT (7-52) U/L Alkaline Phosphatase (34-104) U/L Troponin I High Sens (0-14) pg/ml Total Protein (6.0-8.3) gm/dl Albumin (3.4-5.0) gm/dl Globulin (2.5-4.0) gm/dl Albumin/Globulin Ratio (0.9-2) TSH (0.300-4.500) uIu/ml Urine Color Urine Appearance (Clear) Urine pH (4.5-7.5) Ur Specific Exchange (1.000-1.030) Urine Protein (Negative) Urine Glucose (UA) (Negative) Urine Ketones (Negative) Urine Blood (Negative) Urine Nitrite (Negative) Urine Bilirubin (Negative) Urine Urobilinogen (Negative) Ur Leukocyte Esterase (Negative) Urine WBC (Auto) (0-5) /hpf Urine RBC (Auto) (0-2) /hpf U Hyaline Cast (Auto) (0-2) /lpf U Epithel Cells (Auto) (0-2) /hpf Urine Bacteria (Auto) (None Seen) Nasal Screen MRSA (PCR) Negative (Negative) SARS-CoV-2 (PCR) NEGATIVE (Negative) Hep Bs Antigen (Negative) Hep Bs Antibody Hep Bs Antibody, Quant (>or=10mIU/mL Immune) mIU/mL Influenza Type A (PCR) Negative (Neg) Influenza Type B (PCR) Negative (Neg) RSV (RT-PCR) Negative (Neg) 02/24/25 02/24/25 02/24/25 Range/Units 14:33 12:52 12:10 WBC 13.20 H (4.8-10.8) K/ul RBC 3.14 L (4.20-5.40) M/uL Hgb 9.7 L (12.0-16.0) g/dl Hct 31.3 L (37.0-47.0) % MCV 99.7 (80.0-100.0) fL MCH 30.9 (25.0-34.0) pg MCHC 31.0 L (32.0-36.0) g/dL RDW Std Deviation 53.9 H (36.4-46.3) fL RDW Coeff of Erum 15.9 H (11.5-14.5) % Plt Count 335 (130-400) K/uL MPV 9.2 L (9.4-12.4) fL Immature Gran % (Auto) 0.7 % Neut % (Auto) 88.7 % Lymph % (Auto) 5.9 % [place] % (Auto) 4.2 % Eos % (Auto) 0.3 % Baso % (Auto) 0.2 % Neut # (Auto) 11.72 H (1.40-6.50) K/uL Lymph # (Auto) 0.78 L (1.20-3.40) K/uL [place] # (Auto) 0.55 (0.11-0.59) K/uL Eos # (Auto) 0.04 (0.00-0.50) K/uL Baso # (Auto) 0.02 (0.00-0.20) K/uL Immature Gran # (Auto) 0.09 (0.01-0.20) K/uL Absolute Nucleated RBC (0.00-0.12) K/uL Nucleated RBC % (auto) % PT (9.0-12.0) Seconds INR (0.9-1.1) APTT (21-31) Seconds PTT Ratio Sodium (136-145) mmol/L Potassium (3.5-5.1) mmol/L Chloride (98-107) mmol/L Carbon Dioxide (21-32) mmol/L Anion Gap (3-11) BUN (6-23) mg/dl Creatinine (0.6-1.2) mg/dl Est Cr Clr Drug Dosing ml/min eGFR BUN/Creatinine Ratio (10-20) Glucose (70-99(Fasting)) mg/dl POC Glucose 96 (70-99) mg/dl POC Glucose (other) (70-99) mg/dl Lactate 1.0 (0.4-2.0) mmol/L Calcium (8.6-10.3) mg/dl Phosphorus (2.5-4.9) mg/dl Magnesium (1.7-2.4) mg/dl Total Bilirubin (0.2-1.0) mg/dl AST (13-39) U/L ALT (7-52) U/L Alkaline Phosphatase (34-104) U/L Troponin I High Sens (0-14) pg/ml Total Protein (6.0-8.3) gm/dl Albumin (3.4-5.0) gm/dl Globulin (2.5-4.0) gm/dl Albumin/Globulin Ratio (0.9-2) TSH (0.300-4.500) uIu/ml Urine Color Urine Appearance (Clear) Urine pH (4.5-7.5) Ur Specific Exchange (1.000-1.030) Urine Protein (Negative) Urine Glucose (UA) (Negative) Urine Ketones (Negative) Urine Blood (Negative) Urine Nitrite (Negative) Urine Bilirubin (Negative) Urine Urobilinogen (Negative) Ur Leukocyte Esterase (Negative) Urine WBC (Auto) (0-5) /hpf Urine RBC (Auto) (0-2) /hpf U Hyaline Cast (Auto) (0-2) /lpf U Epithel Cells (Auto) (0-2) /hpf Urine Bacteria (Auto) (None Seen) Nasal Screen MRSA (PCR) (Negative) SARS-CoV-2 (PCR) (Negative) Hep Bs Antigen (Negative) Hep Bs Antibody Hep Bs Antibody, Quant (>or=10mIU/mL Immune) mIU/mL Influenza Type A (PCR) (Neg) Influenza Type B (PCR) (Neg) RSV (RT-PCR) (Neg) 02/24/25 Range/Units 07:50 WBC 8.30 (4.8-10.8) K/ul RBC 2.81 L (4.20-5.40) M/uL Hgb 8.9 L (12.0-16.0) g/dl Hct 27.9 L (37.0-47.0) % MCV 99.3 (80.0-100.0) fL MCH 31.7 (25.0-34.0) pg MCHC 31.9 L (32.0-36.0) g/dL RDW Std Deviation 54.0 H (36.4-46.3) fL RDW Coeff of Erum 15.7 H (11.5-14.5) % Plt Count 231 (130-400) K/uL MPV 9.4 (9.4-12.4) fL Immature Gran % (Auto) 0.5 % Neut % (Auto) 81.6 % Lymph % (Auto) 10.1 % [place] % (Auto) 5.5 % Eos % (Auto) 1.9 % Baso % (Auto) 0.4 % Neut # (Auto) 6.77 H (1.40-6.50) K/uL Lymph # (Auto) 0.84 L (1.20-3.40) K/uL [place] # (Auto) 0.46 (0.11-0.59) K/uL Eos # (Auto) 0.16 (0.00-0.50) K/uL Baso # (Auto) 0.03 (0.00-0.20) K/uL Immature Gran # (Auto) 0.04 (0.01-0.20) K/uL Absolute Nucleated RBC (0.00-0.12) K/uL Nucleated RBC % (auto) % PT 11.1 (9.0-12.0) Seconds INR 1.0 (0.9-1.1) APTT 31 (21-31) Seconds PTT Ratio 1.2 Sodium 138 (136-145) mmol/L Potassium 4.2 (3.5-5.1) mmol/L Chloride 97 L (98-107) mmol/L Carbon Dioxide 31 (21-32) mmol/L Anion Gap 10 (3-11) BUN 52 H (6-23) mg/dl Creatinine 3.96 H (0.6-1.2) mg/dl Est Cr Clr Drug Dosing 13.1 ml/min eGFR 11.55 BUN/Creatinine Ratio 13.1 (10-20) Glucose 134 H (70-99(Fasting)) mg/dl POC Glucose (70-99) mg/dl POC Glucose (other) (70-99) mg/dl Lactate (0.4-2.0) mmol/L Calcium 8.4 L (8.6-10.3) mg/dl Phosphorus (2.5-4.9) mg/dl Magnesium 2.2 (1.7-2.4) mg/dl Total Bilirubin 0.3 (0.2-1.0) mg/dl AST 22 (13-39) U/L ALT 16 (7-52) U/L Alkaline Phosphatase 93 (34-104) U/L Troponin I High Sens 19.0 H (0-14) pg/ml Total Protein 6.9 (6.0-8.3) gm/dl Albumin 3.2 L (3.4-5.0) gm/dl Globulin 3.7 (2.5-4.0) gm/dl Albumin/Globulin Ratio 0.9 (0.9-2) TSH 1.324 (0.300-4.500) uIu/ml Urine Color Urine Appearance (Clear) Urine pH (4.5-7.5) Ur Specific Exchange (1.000-1.030) Urine Protein (Negative) Urine Glucose (UA) (Negative) Urine Ketones (Negative) Urine Blood (Negative) Urine Nitrite (Negative) Urine Bilirubin (Negative) Urine Urobilinogen (Negative) Ur Leukocyte Esterase (Negative) Urine WBC (Auto) (0-5) /hpf Urine RBC (Auto) (0-2) /hpf U Hyaline Cast (Auto) (0-2) /lpf U Epithel Cells (Auto) (0-2) /hpf Urine Bacteria (Auto) (None Seen) Nasal Screen MRSA (PCR) (Negative) SARS-CoV-2 (PCR) (Negative) Hep Bs Antigen (Negative) Hep Bs Antibody Hep Bs Antibody, Quant (>or=10mIU/mL Immune) mIU/mL Influenza Type A (PCR) (Neg) Influenza Type B (PCR) (Neg) RSV (RT-PCR) (Neg) Diagnostic Findings Chest X-Ray 02/24/25 07:37 EXAM: XR chest 1V portable CLINICAL HISTORY: Syncope. TECHNIQUE: An X-ray image of the chest is obtained in AP projection. COMPARISON: 12/23/2024. FINDINGS: Pulmonary Parenchyma: Bilateral nodular opacities, few of which are ill-defined, conspicuous in the right upper mid and lower zones. Bilateral prominent bronchovascular/interstitial markings with diversion of upper lobes. Opacification of left lower zone obscuring the left costophrenic recess. Heart and Mediastinum: Cardiomegaly. No mediastinal widening or masses. No hilar or mediastinal lymphadenopathy. Bony Thorax: Bilateral degenerative changes are seen at the glenohumeral joint space. No fracture or dislocation seen. Soft Tissues: Soft tissues overlying the chest wall are unremarkable. IMPRESSION: 1. Bilateral nodular opacities, few of which are ill-defined, conspicuous in the right lung. Postinflammatory. Suggest clinical and lab correlation. 2. Cardiomegaly. 3. Comparing the previous x-ray dated 12/23/2024, there is interval progression. Electronically signed by Matheus Hernandez 02-24-2025 08:35 AM Chest X-Ray 02/24/25 10:32 XR chest 1V portable CLINICAL HISTORY: repeat CXR COMPARISON STUDY: 02/24/2025 FINDINGS: There is stable prominent cardiomegaly with mild pulmonary vascular congestion. Stable to mildly progressive diffuse pulmonary interstitial and faint patchy opacities. No lobar consolidation or pleural effusion. No pneumothorax. IMPRESSION: Stable to mildly progressive pulmonary opacities which could represent pulmonary edema or pneumonia. ACT 112: Negative or not required by law. Electronically signed by: Ollie Arias M.D. 02/24/2025 11:[address] 02/24/25 11:49 CT SCAN OF THE BRAIN WITHOUT IV CONTRAST CLINICAL HISTORY: Altered mental status. COMPARISON STUDY: Head CT July 17, 2021. TECHNIQUE: Unenhanced axial CT scan of the brain was performed from the vertex to the skull base. A dose lowering technique was utilized adhering to the principles of ALARA. CT DOSE: 938. mGy.cm FINDINGS: Brain parenchyma: This exam is mildly compromised by motion artifact. No acute intracranial hemorrhage, midline shift or mass effect is present. Spangler-white matter differentiation is preserved. There are no extra-axial fluid collections. There are no findings to suggest acute dural sinus thrombosis or acute territorial infarct. Ventricles, sulci, cisterns: There is no hydrocephalus. The basal cisterns are patent. Calvarium: Unremarkable. Sinuses and mastoids: The visualized paranasal sinuses are clear. The mastoid air cells are well pneumatized. Orbits: The bony orbits are grossly intact. IMPRESSION: No acute intracranial findings. Mild motion artifact. ACT 112: Negative or not required by law. Electronically signed by: Sergo Newell M.D. 02/24/2025 1:51 PM Chest CTA 02/25/25 08:40 CT ANGIOGRAM OF THE CHEST CLINICAL HISTORY: Shortness of breath. Evaluate for pulmonary embolus. COMPARISON STUDY: Chest radiograph February 24, 2025 at 10:43 AM. TECHNIQUE: Following the IV administration of 112 cc of Optiray 320, CT angiogram of the chest was performed from the upper abdomen to the thoracic inlet utilizing the pulmonary embolus protocol. Images are reviewed in the axial, sagittal, and coronal planes. 3-D MIPS images are created and assessed. IV contrast was administered without complication. A dose lowering technique was utilized adhering to the principles of ALARA. CT DOSE: 807.32 mGy.cm FINDINGS: No pulmonary emboli are identified although the subsegmental pulmonary arteries are suboptimally assessed due to respiratory motion. There is no thoracic aortic dissection. There are several mildly enlarged mediastinal and b ilateral hilar lymph nodes. Index right paratracheal lymph node measures 1.6 cm in short axis diameter. There is no pneumothorax. Moderate right and small left pleural effusions are present. Associated subpleural lower lobe opacities represent atelectasis. Interlobular septal thickening and groundglass opacities within the lungs are present. There are no suspicious pulmonary nodules. There is reflux of contrast into the IVC and hepatic veins. Left renal atrophy is incidentally noted. There is anasarca. IMPRESSION: 1. No pulmonary emboli identified although subsegmental pulmonary arteries suboptimally assessed. 2. Cardiomegaly with pulmonary edema. Moderate right and small left pleural effusions. Associated lower lobe opacities represent atelectasis. No consolidation to suggest pneumonia. ACT 112: Negative or not required by law. Electronically signed by: Sergo Newell M.D. 02/25/2025 12:12 PM Cervical Spine X-Ray 02/28/25 08:39 XR cervical spine 2 or 3V CLINICAL HISTORY: neck pain COMPARISON STUDY: 07/19/2021 FINDINGS: There is osteopenia. There are mild diffuse degenerative changes. Lower cervical spine is obscured by the shoulders on the lateral view. No fracture or subluxation seen. IMPRESSION: Mild degenerative changes. ACT 112: Negative or not required by law. Electronically signed by: Ollie Arias M.D. 02/28/2025 1:53 PM Lumbar Spine X-Ray 02/28/25 08:39 XR lumbar spine 2-3V CLINICAL HISTORY: rule out compression fracture COMPARISON STUDY: 12/23/2024 FINDINGS: There is osteopenia. There is stable mild height loss at all the lumbar vertebral bodies and T11. Stable minimal anterolisthesis of L4 on 5. Otherwise normal alignment. No new fractures seen. Stable diffuse degenerative changes most severe at L5-S1. IMPRESSION: 1. No new fracture seen. 2. Stable mild vertebral body compression fractures at all lumbar levels. ACT 112: Negative or not required by law. Electronically signed by: Ollie Arias M.D. 02/28/2025 1:56 PM PG Care Time/CCT Total # of Minutes Spent Total Time Spent with Patient: Total time spent is greater than 50% in coordination of care (as documented) at patient's floor/unit and/or counseling patient: I spent 145 minutes overall addressing this case: 20 min in medical data review/discussion with referring provider(s) and/or preparation for the visit 20 min in direct interaction with the patient/exam 75 min in Advance Care Planning/Goals of Care discussions as detailed above in note (must be >16min) 15 min in subsequent review and synthesis of assessment and plan 20 min communicating with other providers regarding the patient's case: Advanced Care Planning 93535 Advanced Care Planning 30 Min 99822 Advanced Care Planning Additional 30 [place] [address] IN/OBS CONSULT LVL 5,80M (25 - SIGNIFICANT, SEPARATELY IDENTIFIABLE ) Patient Type New Medical Decision Making High Complexity Diagnoses Generalized weakness R53.1 Frequent falls R29.6 Advanced care planning/counseling discussion Z71.89 Chronic pain G89.29 Palliative care by specialist Z51.5 Additional Codes Advanced Care Planning - 23212 Advanced Care Planning 30 Min: [id number] Advanced Care Planning 30 Min ([id number]) Advanced Care Planning - 00569 Advanced Care Planning Additional 30 Min: 56796 Advanced Care Planning Additional 30 Min ([id number]) Comment [id number], [id number]
--- NOTE | 2025-03-02 14:42 | Hospitalist Progress Note ---
Date of Service March 02, 2025 Assessment & Plan (1) Aspiration pneumonia: (2) Opiate overdose: (3) Hypovolemic shock: (4) Elevated troponin I level: (5) End stage renal disease on dialysis: (6) DM type 2 (diabetes mellitus, type 2): (7) Anemia: Plan 70 y/o female with ESRD on HD, DM2, hx PE, anemia in ESRD, psoriasis, hyperlipidemia, and other history as outlined below who presented to the ED from HD on 02/24 with a syncopal episode. 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 Upon initial presentation, pt was noted to be hypotensive and hypoxic and was given Narcan in the ED as well as a dose of midodrine and 250 cc bolus with improvement of BP, initiation of O2 with improvement of hypoxia. However, after Narcan, pt with significant agitation and tremulousness. Referred for admission for further management. Chest x-ray concerning for potential aspir ation. Escalating need for respiratory support in the ED - supplemental O2 via NC, then escalation to BiPAP. Attending spoke with hvac engineer who evaluated pt in the ED regarding need for additional respiratory support. Patient was then admitted to ICU for pressor requirement and need for persistent BiPAP. #Aspiration pneumonia #Acute Hypoxic respiratory failure #Possible Septic shock, POA Patient presented to the hospital from dialysis clinic with a syncopal episode. She had episode of nausea and vomiting. Given Narcan for possible opioid overdose. Was hypotensive, hypoxic requiring vasopressors and BiPAP respectively in the ED. admitted to ICU Chest x-ray shows pulmonary edema and increased infiltrate on right side Echo shows EF of 55 to 60% with grade 2 diastolic dysfunction. pulm htn CTA chest done on 02/25 did not show PE; consistent with pulmonary edema and pleural effusion bilaterally(more than right side) Patient is off vasopressors since February 27, 2025 and transferred to PCU Status post 5 days of ampicillin Continue on midodrine for low blood pressure. Continue incentive spirometry PT OT evaluation recommended rehab; patient deconditioned significantly from baselinewants to go to rehab. Case management on board Frequent falls Compression fractures of vertebrae Patient with history of frequent falls, T-spine compression fracture and L- spine compression fractures present. Plan for T-spine CT as an outpatient. Right heart failure due to pulmonary hypertension/severe sleep apnea: Diagnosed October 2022 with severe sleep apnea with hypoxia, patient has not followed up to be fitted for the device, patient to follow-up as an outpatient. #Possible opioid overdose - received Narcan in the ED, Patient is on oxycodone 15 mg 3 times daily as needed at home; was recently prescribed on 02/16. Was given Narcan in the ED possibly precipitated withdrawal Plan to reduce dose to 2.5 mg as needed 3 times daily. She would benefit from outpatient referral for addiction medicine. #ESRD on HD-Dialysis as per nephrology, #Type 2 Diabetes - BSG ACHS - Diabetic diet Hyperlipidemiacontinue simvastatin Mood disorderrcontinue on home meds RLS- continue on ronirole #Anemia - Chronic related to ESRD - no evidence of active bleeding at present Full code DVT prophylaxis heparin DispositionPalliative eval pending. Please note the above document was generated using voice recognition software. It may contain grammatical, syntax or spelling errors. Any formal questions or concerns about the content, text or information contained within the body of this dictation should be directly addressed to the provider for clarification Admission and Anticipated Discharge Date Admission Date: February 24, 2025 Subjective Patient seen and examined at bedside. She reports that she is feeling weak overall. Denies any particular pain or discomfort. Vital signs appear stable. Reports poor appetite, no BM in " several" days, reports moving gas, and no belly pain. Will add bowel regimen. Pt confirms DNR/DNI status when discussed at bedside and states she is thinking of not continuing w/ dialysis in future, she states she is awaiting further discussion w/ palliative. Physical Exam Physical Exam: Constitutional: Awake, alert oriented x 3. On 2L NC O2. Respiratory: Bilateral basal crackles present. Cardiovascular: RRR, no murmur, no edema Vessels: no JVD or carotid bruit Chest: normal inspection of chest Abdomen: normal bowel sounds, soft, nontender, no hepatosplenomegaly Musculoskeletal: no cyanosis or clubbing, extremities motor strength 5/5 Skin: no rashes, warm and dry normal turgor Neurologic: PERRL, EOMI, accommodation nl, no face palsy, no dysarthria CN's II- XI intact bilaterally and moves all extremities Results & Data Results & Data Vital Signs (Past 12 Hours) Vital Signs Temp Pulse Pulse Pulse Resp BP Pulse Ox 03/02/25 10:39 36.6 C 84 17 117/64 98 03/02/25 07:28 80 18 94 03/02/25 07:12 36.8 C 77 18 106/62 99 03/02/25 05:43 81 03/02/25 03:07 36.8 C 80 19 110/64 90 O2 Del Method O2 Flow Rate 03/02/25 10:39 Nasal Cannula 2 03/02/25 07:28 Nasal Cannula 2 03/02/25 07:12 Nasal Cannula 2 03/02/25 05:43 03/02/25 03:07 Nasal Cannula (1) Aspiration pneumonia Aspiration pneumonia type: unspecified Laterality: unspecified laterality Lung location: unspecified part of lung Qualified Code(s): J69.0 - Pneumonitis due to inhalation of food and vomit (2) Opiate overdose Encounter type: initial encounter Injury intent: undetermined intent Qualified Code(s): T40.604A - Poisoning by unspecified narcotics, undetermined, initial encounter (6) DM type 2 (diabetes mellitus, type 2) Diabetes mellitus strategic accounts manager insulin use: without snf use Diabetes mellitus complication status: with kidney complications Diabetes mellitus complication detail: with chronic kidney disease Chronic kidney disease stage: on chronic dialysis Qualified Code(s): E11.22 - Type 2 diabetes mellitus with diabetic chronic kidney disease; N18.6 - End stage renal disease; Z99.2 - Depe ndence on renal dialysis (7) Anemia Anemia type: unspecified type Qualified Code(s): D64.9 - Anemia, unspecified
--- NOTE | 2025-03-03 06:07 | CT Scan Report ---
EXAM: CT abd pelvis wo con CLINICAL HISTORY: abd pain n v TECHNIQUE: Contiguous axial images were obtained from the level of the diaphragm to the pubic symphysis without intravenous or oral contrast. Coronal and sagittal reconstructions were likewise performed and indicated to increase the sensitivity for detecting clinically relevant pathology. CT scan was performed according to ALARA (as low as reasonably achievable). 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 Evaluation of the abdominal and pelvic visceral organs is limited without intravenous contrast. The unenhanced spleen, pancreas, and adrenal glands are grossly unremarkable. Tiny calcified granuloma in segment VIII of liver. Rest liver is unremarkable. Post cholecystectomy status. Bilateral renal sinus lipomatosis with cortical thinning. There is ill defined hyperdensity seen at renal pelvis in left kidney. Focal hypodensity seen at upper pole of left kidney. The ureters are normal in caliber. No adenopathy or fluid collections are seen. No evidence of focal or diffuse bowel wall thickening or evidence of bowel obstruction is seen. No evidence of inflamed appendix. The aorta is normal in caliber. The urinary bladder is normal in contour. Pelvic viscera are grossly unremarkable. Significant degenerative changes in visualized spine. Diffuse atherosclerotic wall calcification of abdominal aorta. Large left paramedian anterior lower abdominal wall hernia with herniation of small bowel loops and its mesentery. No evidence of bowel obstruction. Bilateral total hip replacement status. IMPRESSION: 1. Bilateral renal sinus lipomatosis with cortical thinning. 2. There is ill defined hyperdensity seen at renal pelvis in left kidney- Possible soft tissue component of lipomatosis to be ruled out. 3. Focal hypodensity seen at upper pole of left kidney- Possible focal calycectasis vs parapelvic cyst. 4. Uncomplicated large left paramedian anterior lower abdominal wall hernia with herniation of small bowel loops and its mesentery. 5. All above findings are stable 6. Interval increase in bilateral pleural effusion with adjacent basal atelectasis. Electronically signed by Christ Arroyo 03-03-2025 06:07 AM
[2025-03-03 07:58] LABS: Hematocrit (blood only) 34.7 % (37.0-47.0); Hemoglobin 10.8 g/dl (12.0-16.0); Mean Corpuscular Hemoglobin 32.2 pg (25.0-34.0); Mean Corpuscular Hgb Conc 31.1 g/dL (32.0-36.0); Mean Corpuscular Volume 103.6 fL (80.0-100.0); Mean Platelet Volume 9.1 fL (9.4-12.4); Platelet Count 193 K/uL (130-400); RDW Standard Deviation 67.1 fL (36.4-46.3); Red Blood Count 3.35 M/uL (4.20-5.40); White Blood Count 10.97 K/ul (4.8-10.8)
[2025-03-03 08:08] LABS: Calcium 7.3 mg/dl (8.6-10.3); Potassium 4.3 mmol/L (3.5-5.1)
[2025-03-03 08:55] LABS: BUN Creatinine Ratio 7.7 (10-20); Creatinine Clr Calc Pharmacy 10.8 ml/min
--- NOTE | 2025-03-03 15:27 | Hospitalist Progress Note ---
Date of Service March 03, 2025 Assessment & Plan (1) Aspiration pneumonia: (2) Opiate overdose: (3) Hypovolemic shock: (4) Elevated troponin I level: (5) End stage renal disease on dialysis: (6) DM type 2 (diabetes mellitus, type 2): (7) Anemia: Plan 70 y/o female with ESRD on HD, DM2, hx PE, anemia in ESRD, psoriasis, hyperlipidemia, and other history as outlined below who presented to the ED from HD on 02/24 with a syncopal episode. 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 Upon initial presentation, pt was noted to be hypotensive and hypoxic and was given Narcan in the ED as well as a dose of midodrine and 250 cc bolus with improvement of BP, initiation of O2 with improvement of hypoxia. However, after Narcan, pt with significant agitation and tremulousness. Referred for admission for further management. Chest x-ray concerning for potential aspir ation. Escalating need for respiratory support in the ED - supplemental O2 via NC, then escalation to BiPAP. Attending spoke with pre sales network engineer who evaluated pt in the ED regarding need for additional respiratory support. Patient was then admitted to ICU for pressor requirement and need for persistent BiPAP. #Aspiration pneumonia #Acute Hypoxic respiratory failure #Possible Septic shock, POA Patient presented to the hospital from dialysis clinic with a syncopal episode. She had episode of nausea and vomiting. Given Narcan for possible opioid overdose. Was hypotensive, hypoxic requiring vasopressors and BiPAP respectively in the ED. admitted to ICU Chest x-ray shows pulmonary edema and increased infiltrate on right side Echo shows EF of 55 to 60% with grade 2 diastolic dysfunction. pulm htn CTA chest done on 02/25 did not show PE; consistent with pulmonary edema and pleural effusion bilaterally(more than right side) Patient is off vasopressors since February 27, 2025 and transferred to PCU Status post 5 days of ampicillin Continue on midodrine for low blood pressure. Continue incentive spirometry PT OT evaluation recommended rehab; patient deconditioned significantly from baselinewants to go to rehab. Case management on board Frequent falls Compression fractures of vertebrae Patient with history of frequent falls, T-spine compression fracture and L- spine compression fractures present. Plan for T-spine CT as an outpatient. c/w PT/OT. Right heart failure due to pulmonary hypertension/severe sleep apnea: Diagnosed October 2022 with severe sleep apnea with hypoxia, patient has not followed up to be fitted for the device, patient to follow-up as an outpatient. #Possible opioid overdose - received Narcan in the ED, Patient is on oxycodone 15 mg 3 times daily as needed at home; was recently prescribed on 02/16. Was given Narcan in the ED possibly precipitated withdrawal Plan to reduce dose to 2.5 mg as needed 3 times daily. She would benefit from outpatient referral for addiction medicine. #ESRD on HD-Dialysis as per nephrology, #Type 2 Diabetes - BSG ACHS - Diabetic diet Hyperlipidemiacontinue simvastatin Mood disorderrcontinue on home meds RLS- continue on ronirole #Anemia - Chronic related to ESRD - no evidence of active bleeding at present Full code DVT prophylaxis heparin DispositionPalliative meet at 11 am nahomi per pt. Pacheco was given a phone call for general update, left VM to call us back at hospital and ask for dr morris. Please note the above document was generated using voice recognition software. It may contain grammatical, syntax or spelling errors. Any formal questions or concerns about the content, text or information contained within the body of this dictation should be directly addressed to the provider for clarification Admission and Anticipated Discharge Date Admission Date: February 24, 2025 Subjective Patient seen and examined at bedside. She reports that she is feeling weak and tired. Denies any particular pain or discomfort. Vital signs appear stable. Initially seen during HD session, appeared tired. Did eat not much in breakfast, ate better in lunch. Pt again seen afternoon, more alert and looked better. She had rt fore arm swelling after HD session, no erythema/tenderness/warmth noted ---> communicated w/ RN for RUE elevation and ice compression and close monitor. Did move BM yesterday. Pt states she is looking forward to palliative meeting nahomi at 11 am. Physical Exam Physical Exam: Constitutional: Awake, alert oriented x 3. On 2L NC O2. Respiratory: Bilateral basal crackles present. Cardiovascular: RRR, no murmur, no edema Vessels: no JVD or carotid bruit Chest: normal inspection of chest Abdomen: normal bowel sounds, soft, nontender, no hepatosplenomegaly Musculoskeletal: no cyanosis or clubbing, extremities motor strength 5/5 Skin: no rashes, warm and dry normal turgor Neurologic: PERRL, EOMI, accommodation nl, no face palsy, no dysarthria CN's II- XI intact bilaterally and moves all extremities Results & Data Results & Data Vital Signs (Past 12 Hours) Vital Signs Temp Pulse Pulse Pulse Resp BP BP 03/03/25 15:13 36.6 C 77 18 125/77 03/03/25 13:00 73 129/54 L 03/03/25 12:30 73 120/57 L 03/03/25 12:00 72 124/55 L 03/03/25 11:37 36.6 C 74 20 118/64 03/03/25 11:30 69 118/56 L 03/03/25 11:00 76 127/61 03/03/25 10:30 74 126/70 03/03/25 10:03 75 132/65 03/03/25 09:59 79 03/03/25 09:51 36.8 C 74 03/03/25 08:22 03/03/25 08:00 03/03/25 07:56 36.5 C 63 18 130/74 03/03/25 07:07 80 20 Pulse Ox Pulse Ox O2 Del Method O2 Del Method O2 Flow Rate O2 Flow Rate 03/03/25 15:13 98 Nasal Cannula 2 03/03/25 13:00 03/03/25 12:30 03/03/25 12:00 03/03/25 11:37 97 Nasal Cannula 2 03/03/25 11:30 03/03/25 11:00 03/03/25 10:30 03/03/25 10:03 03/03/25 09:59 03/03/25 09:51 03/03/25 08:22 Nasal Cannula 2 03/03/25 08:00 99 Nasal Cannula 2 03/03/25 07:56 99 Nasal Cannula 2 03/03/25 07:07 99 Nasal Cannula 2 (1) Aspiration pneumonia Aspiration pneumonia type: unspecified Laterality: unspecified laterality Lung location: unspecified part of lung Qualified Code(s): J69.0 - Pneumonitis due to inhalation of food and vomit (2) Opiate overdose Encounter type: initial encounter Injury intent: undetermined intent Qualified Code(s): T40.604A - Poisoning by unspecified narcotics, undetermined, initial encounter (6) DM type 2 (diabetes mellitus, type 2) Diabetes mellitus correction insulin use: without correction use Diabetes mellitus complication status: with kidney complications Diabetes mellitus complication detail: with chronic kidney disease Chronic kidney disease stage: on chronic dialysis Qualified Code(s): E11.22 - Type 2 diabetes mellitus with diabetic chronic kidney disease; N18.6 - End stage renal disease; Z99.2 - Dependence on renal dialysis (7) Anemia Anemia type: unspecified type Qualified Code(s): D64.9 - Anemia, unspecified
--- NOTE | 2025-03-03 18:07 | Nephrology Progress Note ---
Date of Service March 03, 2025 Assessment & Plan (1) End stage renal disease on dialysis: Plan: concern her hypotension may stem from worsening RH function in setting of plm HTN. hypotension limiting uf on HD recently, though BP improving w/ more midodrine and more UF Has had HD this admission so far only with pressor support. This has enabled us to improve her volume status somewhat. She had 3 L UF on both February 25 and , 2.5 L on , 2.5L on 03/03. Concerned that with untreated sleep apnea right heart failure is emerging complicated by aspiration pneumonitis and chronic pain/opiate overdose. hgb 10.8, potassium 4.3 Plan routine HD 03/05 w/ midodrine pending goals of care discussion Will continue to emphasize importance of BiPAP/CPAP, extreme care with medications pending goals of care discussion >>extended review of clinical status w/ by phone today and goals of care discussion with him (30 minutes). he is understandably struggling to accept his 's change in functional status/clinical orientation but working to accept and understand it -continue during admission phosLo in addition to renvela given phos > 7 >> give ONLY w/ meals; do not d/c on phoslo Care coordinated regarding goals of care, dialysis status, R arm function with Dr. Holder by TText; we are in agreement. (2) Right heart failure due to pulmonary hypertension: Plan: Diagnosed October 2022 with severe sleep apnea with hypoxia; has not yet followed up to be fitted for device >>suggest trial cpap/bipap while in house if able > she tolerated 5/12 ON >>>depending on goals of d/c primary service to work on can we/how can we get bipap/cpap for her as OP in expedited way (3) Aspiration pneumonia: Plan: aspiration pneumonitis after emesis during opiate withdrawal this admission > remains on 1L (4) Opiate overdose: Plan: responded to narcan in ED; challenging situation w/ chronic pain for this pt and ESRD since opiates are standard of care here though concerns for hyperalgesia on opiates earlier this year and limited pain mgt options >> at some point ?kyphoplasty T spine? >>primary service aware/titrating meds; also changing goals of care to more comfort approach most likely (5) Frequent falls: Plan: her R knee on admission was scabbed, swollen though nontender; distal RLE is red, warm and slightly swollen. L not so. approx 02/06 she fell down at home, sitting down hard on floor; also saw PCP 02/13 w/ c/o c spine pain and BL arm weakness >>thoracic and multiple lumbar vertebral compression fractures as below (6) Compression fracture of body of thoracic vertebra: Plan: OP chest CT was recommended to further evaluate 02/12 T spine XR given questionable asymmetric disc space widening inferior to vertebral body > at some point suggest full spinal assessment w/ CT and ? eval for kyphoplasty T spine << all as outpatient -no C spine fractures -T spine CF known from OP -stable mild vertebral compression fractures at all lumbar levels per imaging will need pain control omar preston (7) Goals of care, counseling/discussion: Plan: palliative on board now extended discussions myself and pt past 2 days (8) Malfunction of arteriovenous dialysis fistula: Plan: R arm edematous today and achieved Qb 300 ml/min only w/ prolonged bleeding on 03/01; pending goals of care discussions; if continues HD, will likely need to repeat angioplasty as done earlier this year; believe arm will still run for a few more txs at least however Admission and Anticipated Discharge Date Admission Date: February 24, 2025 Subjective really tired when I saw her after Hd; tolerated 2.5L UF; BP a bit better; some issues w/ AVF; pain controlled she states, not sob Review of Systems 2 Review of Systems: All systems reviewed & are unremarkable except as noted in Subjective Physical Exam 2 Constitutional: well developed ( tired), + physical limitations, + frail appearing, well groomed, cooperative and + lethargic; no acute distress Eyes: EOM intact bilaterally ENMT: Mouth: + dry oral mucous membranes Respiratory: normal respiratory effort and able to speak in complete sentences ( But limited interaction d/t fatigue) Auscultation: + diminished lung sounds Cardiovascular: Rate/Rhythm: regular rate and regular rhythm Heart Sounds: + murmur Extremities: + edema (primarily AVF arm) and + AV fistula Gastrointestinal (Abdomen): Inspection/Auscultation: normal bowel sounds P ercussion/Palpation: abdomen soft; abdomen nontender Musculoskeletal: Extremities: strength 5/5 throughout Skin: no rashes, warm and dry Psychiatric: Orientation: alert ( but tired), oriented x 3, oriented to person, oriented to place and oriented to time Results & Data Vital Signs (Past 12 Hours) Vital Signs Temp Pulse Pulse Pulse Resp BP BP 03/03/25 15:52 73 03/03/25 15:13 36.6 C 77 18 125/77 03/03/25 13:45 36.8 C 81 130/59 L 03/03/25 13:30 74 128/60 03/03/25 13:00 73 129/54 L 03/03/25 12:30 73 120/57 L 03/03/25 12:00 72 124/55 L 03/03/25 11:37 36.6 C 74 20 118/64 03/03/25 11:30 69 118/56 L 03/03/25 11:00 76 127/61 03/03/25 10:30 74 126/70 03/03/25 10:03 75 132/65 03/03/25 09:59 79 03/03/25 09:51 36.8 C 74 03/03/25 08:22 03/03/25 08:00 03/03/25 07:56 36.5 C 63 18 130/74 03/03/25 07:07 80 20 Pulse Ox Pulse Ox O2 Del Method O2 Del Method O2 Flow Rate O2 Flow Rate 03/03/25 15:52 03/03/25 15:13 98 Nasal Cannula 2 03/03/25 13:45 03/03/25 13:30 03/03/25 13:00 03/03/25 12:30 03/03/25 12:00 03/03/25 11:37 97 Nasal Cannula 2 03/03/25 11:30 03/03/25 11:00 03/03/25 10:30 03/03/25 10:03 03/03/25 09:59 03/03/25 09:51 03/03/25 08:22 Nasal Cannula 2 03/03/25 08:00 99 Nasal Cannula 2 03/03/25 07:56 99 Nasal Cannula 2 03/03/25 07:07 99 Nasal Cannula 2 Laboratory Results 03/03/25 07:19 03/03/25 07:19 (3) Aspiration pneumonia Aspiration pneumonia type: unspecified Laterality: unspecified laterality L harrison location: unspecified part of lung Qualified Code(s): J69.0 - Pneumonitis due to inhalation of food and vomit (4) Opiate overdose Encounter type: initial encounter Injury intent: undetermined intent Qualified Code(s): T40.604A - Poisoning by unspecified narcotics, undetermined, initial encounter
[2025-03-04 07:44] LABS: Hematocrit (blood only) 38.7 % (37.0-47.0); Mean Corpuscular Hemoglobin 31.8 pg (25.0-34.0); Mean Corpuscular Volume 102.7 fL (80.0-100.0); Mean Platelet Volume 9.3 fL (9.4-12.4); Nucleated RBC # (auto) 0.02 K/uL (0.00-0.12); Nucleated RBC % (auto) 0.2 %; Platelet Count 187 K/uL (130-400); RDW Coefficient of Variation 18.3 % (11.5-14.5); RDW Standard Deviation 68.1 fL (36.4-46.3); Red Blood Count 3.77 M/uL (4.20-5.40); White Blood Count 12.46 K/ul (4.8-10.8)
[2025-03-04 08:53] LABS: Magnesium 2.3 mg/dl (1.7-2.4); Potassium 3.8 mmol/L (3.5-5.1)
--- NOTE | 2025-03-04 08:56 | XRay Report ---
XR chest 1V portable CLINICAL HISTORY: f/u pleural eff, ro pna COMPARISON STUDY: 02/24/2025 FINDINGS: There is stable prominent cardiomegaly with mild pulmonary vascular congestion. There are m itral valvular calcifications. There is mild diffuse pulmonary interstitial prominence, improved. No consolidation or pleural effusion seen. No pneumothorax. Stable old left rib fractures. IMPRESSION: Persistent mild CHF, improved. ACT 112: Negative or not required by law. Electronically signed by: Ollie Arias M.D. 03/04/2025 8:54 AM
[2025-03-04 08:59] LABS: BUN Creatinine Ratio 7.5 (10-20); Creatinine Clr Calc Pharmacy 15.9 ml/min; Phosphorus 4.5 mg/dl (2.5-4.9)
--- NOTE | 2025-03-04 11:55 | Nephrology Progress Note ---
Date of Service March 04, 2025 Assessment & Plan (1) End stage renal disease on dialysis: Plan: concern her hypotension may stem from worsening RH function in setting of plm HTN. hypotension limiting uf on HD recently, though BP improving w/ more midodrine and more UF and consistent /at least some bipap use. he had 3 L UF on both February 25 and , 2.5 L on , 2.5L on 03/03. Concerned that with untreated sleep apnea right heart failure is emerging complicated by aspiration pneumonitis and chronic pain/opiate overdose. hgb 10.8, potassium 4.3 Plan routine HD 03/05 w/ midodrine pending goals of care discussion Will continue to emphasize importance of BiPAP/CPAP, extreme care with medications pending goals of care discussion > care /meds reviewed extensively w/ palliative (15 min on phone and extended tiger texting as well) -unfortuately w/ challenges swallowing, cannot tolerate binders; we do not currently have binders that can be crushed or capsules that can open; appreciate pharmacy efforts reviewing Care coordinated regarding goals of care, dialysis status, R arm function, medications with Dr. Holder and Lakisha Myers by TText and phone and in person; we are in agreement. (2) Right heart failure due to pulmonary hypertension: Plan: Diagnosed October 2022 with severe sleep apnea with hypoxia; has not yet followed up to be fitted for device >>continue trial cpap/bipap while in house if able and trouble shoot proactively barriers to use >>>depending on goals of d/c primary service to work on can we/how can we get bipap/cpap for her as OP in expedited way (3) Aspiration pneumonia: Plan: aspiration pneumonitis after emesis during opiate withdrawal this admission > remains on 2L ; WBC up today (4) Opiate overdose: Plan: appreciate palliative discussion of dependence v addiction and of complexities surrounding polypharmacy for this pt. responded to narcan in ED; challenging situation w/ chronic pain for this pt and ESRD since opiates are standard of care here though concerns for hyperalgesia on opiates earlier this year and limited pain mgt options >> at some point ?kyphoplasty T spine? pain control has been very good here > even today when walking some w/ PT (5) Frequent falls: Plan: her R knee on admission was scabbed, swollen though nontender; distal RLE on admission red, warm and slightly swollen. L not so. approx 02/06 she fell down at home, sitting down hard on floor; also saw PCP 02/13 w/ c/o c spine pain and BL arm weakness >>thoracic and multiple lumbar vertebral compression fractures as below (6) Compression fracture of body of thoracic vertebra: Plan: OP chest CT was recommended to further evaluate 02/12 T spine XR given questionable asymmetric disc space widening inferior to vertebral body > at some point suggest full spinal assessment w/ CT and ? eval for kyphoplasty T spine << all as outpatient -no C spine fractures -T spine CF known from OP -stable mild vertebral compression fractures at all lumbar levels per imaging will need pain control for above >>>consider getting CT of T spine in house as it may affect pain mgt decisions (7) Goals of care, counseling/discussion: Plan: palliative on board now extended discussions myself and pt past 3 days (8) Malfunction of arteriovenous dialysis fistula: Plan: R arm less edematous today and achieved Qb 300 ml/min 03/03 only w/ prolonged bleeding on 03/01; pending goals of care discussions; if continues HD, will likely need to repeat angioplasty as done earlier this year; believe arm will still run for a few more txs at least however Admission and Anticipated Discharge Date Admission Date: February 24, 2025 Subjective no interval evens clinically. Having trouble swallowing binders and hardly eating she tells me. Pain has been well-controlled. Not short of breath. Tolerated dialysis yesterday with 2.5 L off Review of Systems 2 Review of Systems: All systems reviewed & are unremarkable except as noted in Subjective Physical Exam 2 Constitutional: well developed ( tired), + physical limitations, + frail appearing, well groomed and cooperative; no acute distress Eyes: EOM intact bilaterally ENMT: Mouth: + dry oral mucous membranes Respiratory: normal respiratory effort, + labored breathing (slight), able to speak in complete sentences ( ) and + paradoxical thoraco-abdominal movement Auscultation: + diminished lung sounds and + crackles Cardiovascular: Rate/Rhythm: regular rate and regular rhythm Heart Sounds: + murmur Extremities: + edema (primarily AVF arm) and + AV fistula Gastrointestinal (Abdomen): Inspection/Auscultation: normal bowel sounds P ercussion/Palpation: abdomen soft; abdomen nontender Musculoskeletal: Extremities: strength 5/5 throughout Skin: no rashes, warm and dry Psychiatric: Orientation: alert ( but tired), oriented x 3, oriented to person, oriented to place and oriented to time Results & Data Vital Signs (Past 12 Hours) Vital Signs Temp Pulse Pulse Resp BP Pulse Ox O2 Del Method 03/04/25 07:37 36.3 C L 75 19 136/60 100 Nasal Cannula 03/04/25 07:28 76 03/04/25 03:13 36.3 C L 77 19 133/64 100 Nasal Cannula 03/04/25 00:00 83 O2 Flow Rate 03/04/25 07:37 2 03/04/25 07:28 03/04/25 03:13 03/04/25 00:00 Laboratory Results 03/04/25 07:10 03/04/25 07:10 (3) Aspiration pneumonia Aspiration pneumonia type: unspecified Laterality: unspecified laterality L harrison location: unspecified part of lung Qualified Code(s): J69.0 - Pneumonitis due to inhalation of food and vomit (4) Opiate overdose Encounter type: initial encounter Injury intent: undetermined intent Qualified Code(s): T40.604A - Poisoning by unspecified narcotics, undetermined, initial encounter
--- NOTE | 2025-03-04 12:22 | Palliative Family Discussion ---
Date of Service March 04, 2025 Patient Directed Conference Time of Meetinam - 12pm Participants: Lakisha Myers DNP Patient participation: yes Patient Support System: and daughter/Rosalee Other Healthcare Provider Participation: None Meeting Location: bedside The patient's surrogate medical decision maker participated: and dtr A face to face ACP family meeting was held at bedside for JAIMEE VENEGAS. This meeting was necessary for determining the appropriate course of treatment. Topics of Discussion Topics of Discussion: 1. A family meeting was held. She is really contemplating stopping dialysis, but her reason is more about "not wanting to drag things out for the family." I suggested she and family spend some time this weekend discussing these feelings, we will follow up Friday (I am in clinic Mondays.) She's still having poor intake and symptoms are not well controlled yet - her pain is ok but she is struggling with nausea and vomiting, feels current meds are not working. I am super thankful to Dr. Desouza from pharmacy to help me sort through her polypharmacy - we found she is on 2 SSRIs and higher dose Requip. I reduced the Requip to 1mg and Dr Desouza suggested a weaning down of paroxetine to 7.5mg daily for one week, then 5mg daily for one week, 2.5mg daily for one week then 2.5mg every other day for a week then stop. I will write that order today as well. This will need to be conveyed to the [facility] on a discharge plan as well :) She shared she has a small "bucket list" of things she wants to do and I suggested staying on HD as a means to help her achieve those goals. She has a lot of loose ends/relationships with others that need resolution/closure and she struggles with legacy work she has not started, so I am referring her to Jessica Renee who is an end of life waste water worker and conscious dying fitness coach to help assist Mrs. Venegas and family with the non-medical factors of advanced /terminal illness. These services will be paid for through my Palliative [employer] funds and there is zero patient expense. It will be 10 visits over 2-3 months, scheduled at patient's convenience and preference. Jessica will travel to the pt. 2. They had several ??s about SNF and I sent those to via [place] to d/ family today. Other Content of Meetin. Opportunity given for participants to speak and ask questions. 2. Participants were assured of attention to patient comfort. 3. Reassurance provided. 4. Support was provided for informed, good-m[place] decisions. 5. Emotions expressed by family were acknowledged and addressed. 6. Follow-up Outpatient: OP pall med clinic offered 7. Cara had a lot of questions about EOL. Dying process: Discussed changes pt may move through in the dying process including but not limited to sleeping more, disorientation when awake, restlessness, diminished senses/inability to respond to stimulus although ability to be aware of them remains intact longer, and changes in body temperatures, skin changes/mottling/cyanosis, respiratory pattern changes, and oral secretions. Family verbalized understanding. The goal is to assure a peaceful . 8. We will follow up Friday Time Involved in Meeting: I spent 60min in this face to face ACP
--- NOTE | 2025-03-04 14:42 | Hospitalist Progress Note ---
Date of Service March 04, 2025 Assessment & Plan (1) Aspiration pneumonia: (2) Opiate overdose: (3) Hypovolemic shock: (4) Elevated troponin I level: (5) End stage renal disease on dialysis: (6) DM type 2 (diabetes mellitus, type 2): (7) Anemia: Plan 70 y/o female with ESRD on HD, DM2, hx PE, anemia in ESRD, psoriasis, hyperlipidemia, and other history as outlined below who presented to the ED from HD on 02/24 with a syncopal episode. 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 Upon initial presentation, pt was noted to be hypotensive and hypoxic and was given Narcan in the ED as well as a dose of midodrine and 250 cc bolus with improvement of BP, initiation of O2 with improvement of hypoxia. However, after Narcan, pt with significant agitation and tremulousness. Referred for admission for further management. Chest x-ray concerning for potential aspir ation. Escalating need for respiratory support in the ED - supplemental O2 via NC, then escalation to BiPAP. Attending spoke with tanker service attendant who evaluated pt in the ED regarding need for additional respiratory support. Patient was then admitted to ICU for pressor requirement and need for persistent BiPAP. #Aspiration pneumonia #Acute Hypoxic respiratory failure #Possible Septic shock, POA Patient presented to the hospital from dialysis clinic with a syncopal episode. She had episode of nausea and vomiting. Given Narcan for possible opioid overdose. Was hypotensive, hypoxic requiring vasopressors and BiPAP respectively in the ED. admitted to ICU Chest x-ray shows pulmonary edema and increased infiltrate on right side Echo shows EF of 55 to 60% with grade 2 diastolic dysfunction. pulm htn CTA chest done on 02/25 did not show PE; consistent with pulmonary edema and pleural effusion bilaterally(more than right side) Patient is off vasopressors since February 27, 2025 and transferred to PCU Status post 5 days of ampicillin Continue on midodrine for low blood pressure. Continue incentive spirometry PT OT evaluation recommended rehab; patient deconditioned significantly from baselinewants to go to rehab. Case management on board States cough from 03/04, monitor, CXR 03/04 w/ no concern for pna. WBC up, monitor off antibiotic for now, follow UA and blood Cx sent 03/04. Frequent falls Compression fractures of vertebrae Patient with history of frequent falls, T-spine compression fracture and L- spine compression fractures present. Plan for T-spine CT as an outpatient. c/w PT/OT. Right heart failure due to pulmonary hypertension/severe sleep apnea: Diagnosed October 2022 with severe sleep apnea with hypoxia, patient has not followed up to be fitted for the device, patient to follow-up as an outpatient. #Possible opioid overdose - received Narcan in the ED, Patient is on oxycodone 15 mg 3 times daily as needed at home; was recently prescribed on 02/16. Was given Narcan in the ED possibly precipitated withdrawal Plan to reduce dose to 2.5 mg as needed 3 times daily. She would benefit from outpatient referral for addiction medicine. #ESRD on HD/Malfunction of arteriovenous dialysis fistula:-Dialysis as per nephrology, RUE edematous, likely need repeat angioplasty as done earlier this year #Type 2 Diabetes - BSG ACHS - Diabetic diet Hyperlipidemiacontinue simvastatin Mood disorderrcontinue on home meds RLS- continue on ronirole Polypharmacy: requip dose being decreased, pt on 2 ssri, wean down and stop paroxetine. #Anemia - Chronic related to ESRD - no evidence of active bleeding at present Full code DVT prophylaxis heparin Dispositionsnf, cm assisting. pt's kamille give a phone call, updated, answered all his questions. Please note the above document was generated using voice recognition software. It may contain grammatical, syntax or spelling errors. Any formal questions or concerns about the content, text or information contained within the body of this dictation should be directly addressed to the provider for clarification Admission and Anticipated Discharge Date Admission Date: February 24, 2025 Subjective Patient seen and examined at bedside. She reports strength slowly improving but feels still tired. Denies any particular pain or discomfort. No skin rashes or signs of infection, reports occasional cough starting today, no mucus per pt. WBC going up, vitals stable, CXR w/ no concern for pna, await UA and blood culture, for now monitor off antibiotic. Vital signs appear stable. RUE swelling decreasing gradually. no s/s of cellulitis. Physical Exam Physical Exam: Constitutional: Awake, alert oriented x 3. On 2L NC O2. appears ill/weak/frail. Respiratory: Bilateral basal crackles present. Cardiovascular: RRR, no murmur, no edema Vessels: no JVD or carotid bruit Chest: normal inspection of chest Abdomen: normal bowel sounds, soft, nontender, no hepatosplenomegaly Musculoskeletal: no cyanosis or clubbing, extremities motor strength 5/5 Skin: no rashes, warm and dry normal turgor Neurologic: PERRL, EOMI, accommodation nl, no face palsy, no dysarthria CN's II- XI intact bilaterally and moves all extremities Results & Data Results & Data Vital Signs (Past 12 Hours) Vital Signs Temp Pulse Pulse Resp BP Pulse Ox Pulse Ox 03/04/25 12:08 36.3 C L 73 19 106/49 L 100 03/04/25 12:00 03/04/25 08:00 94 03/04/25 07:37 36.3 C L 75 19 136/60 100 03/04/25 07:28 76 03/04/25 03:13 36.3 C L 77 19 133/64 100 O2 Del Method O2 Del Method O2 Flow Rate O2 Flow Rate 03/04/25 12:08 Nasal Cannula 03/04/25 12:00 Nasal Cannula 2 03/04/25 08:00 High Flow Nasal Cannula 5 03/04/25 07:37 Nasal Cannula 2 03/04/25 07:28 03/04/25 03:13 Nasal Cannula (1) Aspiration pneumonia Aspiration pneumonia type: unspecified Laterality: unspecified laterality Lung location: unspecified part of lung Qualified Code(s): J69.0 - Pneumonitis due to inhalation of food and vomit (2) Opiate overdose Encounter type: initial encounter Injury intent: undetermined intent Qualified Code(s): T40.604A - Poisoning by unspecified narcotics, undetermined, initial encounter (6) DM type 2 (diabetes mellitus, type 2) Diabetes mellitus retirement insulin use: without retirement use Diabetes mellitus complication status: with kidney complications Diabetes mellitus complication detail: with chronic kidney disease Chronic kidney disease stage: on chronic dialysis Qualified Code(s): E11.22 - Type 2 diabetes mellitus with diabetic chronic kidney disease; N18.6 - End stage renal disease; Z99.2 - Dependence on renal dialysis (7) Anemia Anemia type: unspecified type Qualified Code(s): D64.9 - Anemia, unspecified
--- NOTE | 2025-03-04 17:38 | Communication Note ---
Date of Service: March 04, 2025 Palliative discussions reviewed through the day >dialysis orders placed for AM >consult vascular for possible fistulagram given AVF arm edema/ hx of AVF buster nosis in past >> this is for 03/07 AM eval
[2025-03-05 06:24] LABS: Hematocrit (blood only) 39.1 % (37.0-47.0); Hemoglobin 12.4 g/dl (12.0-16.0); Mean Corpuscular Hemoglobin 32.5 pg (25.0-34.0); Mean Corpuscular Hgb Conc 31.7 g/dL (32.0-36.0); Mean Corpuscular Volume 102.4 fL (80.0-100.0); Mean Platelet Volume 10.2 fL (9.4-12.4); Platelet Count 191 K/uL (130-400); RDW Coefficient of Variation 18.6 % (11.5-14.5); RDW Standard Deviation 68.3 fL (36.4-46.3); Red Blood Count 3.82 M/uL (4.20-5.40); White Blood Count 12.96 K/ul (4.8-10.8)
[2025-03-05 06:41] LABS: BUN Creatinine Ratio 9.4 (10-20); Calcium 7.5 mg/dl (8.6-10.3); Creatinine Clr Calc Pharmacy 12.7 ml/min; Magnesium 2.3 mg/dl (1.7-2.4); Phosphorus 4.8 mg/dl (2.5-4.9); Potassium 3.9 mmol/L (3.5-5.1)
--- NOTE | 2025-03-05 15:08 | Hospitalist Progress Note ---
Date of Service March 05, 2025 Assessment & Plan (1) Aspiration pneumonia: (2) Opiate overdose: (3) Hypovolemic shock: (4) Elevated troponin I level: (5) End stage renal disease on dialysis: (6) DM type 2 (diabetes mellitus, type 2): (7) Anemia: Plan 70 y/o female with ESRD on HD, DM2, hx PE, anemia in ESRD, psoriasis, hyperlipidemia, and other history as outlined below who presented to the ED from HD on 02/24 with a syncopal episode. 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 Upon initial presentation, pt was noted to be hypotensive and hypoxic and was given Narcan in the ED as well as a dose of midodrine and 250 cc bolus with improvement of BP, initiation of O2 with improvement of hypoxia. However, after Narcan, pt with significant agitation and tremulousness. Referred for admission for further management. Chest x-ray concerning for potential aspir ation. Escalating need for respiratory support in the ED - supplemental O2 via NC, then escalation to BiPAP. Attending spoke with charging car operator who evaluated pt in the ED regarding need for additional respiratory support. Patient was then admitted to ICU for pressor requirement and need for persistent BiPAP. #Aspiration pneumonia #Acute Hypoxic respiratory failure #Possible Septic shock, POA Patient presented to the hospital from dialysis clinic with a syncopal episode. She had episode of nausea and vomiting. Given Narcan for possible opioid overdose. Was hypotensive, hypoxic requiring vasopressors and BiPAP respectively in the ED. admitted to ICU Chest x-ray shows pulmonary edema and increased infiltrate on right side Echo shows EF of 55 to 60% with grade 2 diastolic dysfunction. pulm htn CTA chest done on 02/25 did not show PE; consistent with pulmonary edema and pleural effusion bilaterally(more than right side) Patient is off vasopressors since February 27, 2025 and transferred to PCU Status post 5 days of ampicillin Continue on midodrine for low blood pressure. Continue incentive spirometry PT OT evaluation recommended rehab; patient deconditioned significantly from baselinewants to go to rehab. Case management on board States no more cough, monitor, CXR 03/04 w/ no concern for pna. WBC up, monitor off antibiotic for now, follow UA and blood Cx sent 03/04. Frequent falls Compression fractures of vertebrae Patient with history of frequent falls, T-spine compression fracture and L- spine compression fractures present. Plan for T-spine CT as an outpatient. c/w PT/OT. Right heart failure due to pulmonary hypertension/severe sleep apnea: Diagnosed October 2022 with severe sleep apnea with hypoxia, patient has not followed up to be fitted for the device, patient to follow-up as an outpatient. #Possible opioid overdose - received Narcan in the ED, Patient is on oxycodone 15 mg 3 times daily as needed at home; was recently prescribed on 02/16. Was given Narcan in the ED possibly precipitated withdrawal Plan to reduce dose to 2.5 mg as needed 3 times daily. She would benefit from outpatient referral for addiction medicine. #ESRD on HD/Malfunction of arteriovenous dialysis fistula:-Dialysis as per nephrology, RUE edematous, likely need repeat angioplasty as done earlier this year. Vascular consult on Friday. #Type 2 Diabetes - BSG ACHS - Diabetic diet Hyperlipidemiacontinue simvastatin Mood disorderrcontinue on home meds RLS- continue on ronirole Polypharmacy: requip dose being decreased, pt on 2 ssri, wean down and stop paroxetine. #Anemia - Chronic related to ESRD - no evidence of active bleeding at present Full code DVT prophylaxis heparin Dispositionsnf, cm assisting. possible dc after vascular eval coming friday. pt's kamille give a phone call 03/04, updated, answered all his questions. Please note the above document was generated using voice recognition software. It may contain grammatical, syntax or spelling errors. Any formal questions or concerns about the content, text or information contained within the body of this dictation should be directly addressed to the provider for clarification Admission and Anticipated Discharge Date Admission Date: February 24, 2025 Subjective Patient seen and examined at bedside. She reports strength slowly improving but feels still tired. Denies any particular pain or discomfort. No skin rashes or signs of infection, reports no cough now, denies sore throat. WBC slightly up, vitals stable, CXR w/ no concern for pna, await UA and blood culture, for now monitor off antibiotic. Vital signs appear stable. RUE swelling w/ no s/s of cellulitis. Physical Exam Physical Exam: Constitutional: Awake, alert oriented x 3. On 2L NC O2. appears ill/weak/frail. Respiratory: Bilateral basal crackles present. Cardiovascular: RRR, no murmur, no edema Vessels: no JVD or carotid bruit Chest: normal inspection of chest Abdomen: normal bowel sounds, soft, nontender, no hepatosplenomegaly Musculoskeletal: no cyanosis or clubbing, extremities motor strength 5/5 Skin: no rashes, warm and dry normal turgor Neurologic: PERRL, EOMI, accommodation nl, no face palsy, no dysarthria CN's II- XI intact bilaterally and moves all extremities Results & Data Results & Data Vital Signs (Past 12 Hours) Vital Signs Temp Pulse Pulse Pulse Resp BP BP 03/05/25 13:10 36.3 C L 76 106/52 L 03/05/25 12:30 80 95/48 L 03/05/25 12:00 78 92/48 L 03/05/25 11:30 75 92/47 L 03/05/25 11:00 78 102/50 L 03/05/25 10:30 78 89/50 L 03/05/25 10:00 76 101/54 L 03/05/25 09:30 70 115/50 L 03/05/25 09:05 75 125/54 L 03/05/25 08:53 36.3 C L 75 03/05/25 07:37 36.3 C L 72 19 108/55 L 03/05/25 03:59 36.4 C L 71 17 126/66 Pulse Ox O2 Del Method O2 Flow Rate 03/05/25 13:10 03/05/25 12:30 03/05/25 12:00 03/05/25 11:30 03/05/25 11:00 03/05/25 10:30 03/05/25 10:00 03/05/25 09:30 03/05/25 09:05 03/05/25 08:53 03/05/25 07:37 100 Nasal Cannula 2 03/05/25 03:59 100 Nasal Cannula 2 (1) Aspiration pneumonia Aspiration pneumonia type: unspecified Laterality: unspecified laterality Lung location: unspecified part of lung Qualified Code(s): J69.0 - Pneumonitis due to inhalation of food and vomit (2) Opiate overdose Encounter type: initial encounter Injury intent: undetermined intent Qualified Code(s): T40.604A - Poisoning by unspecified narcotics, undetermined, initial encounter (6) DM type 2 (diabetes mellitus, type 2) Diabetes mellitus nurse navigator insulin use: without custodial use Diabetes mellitus complication status: with kidney complications Diabetes mellitus complication detail: with chronic kidney disease Chronic kidney disease stage: on chronic dialysis Qualified Code(s): E11.22 - Type 2 diabetes mellitus with diabetic chronic kidney disease; N18.6 - End stage renal disease; Z99.2 - Dependence on renal dialysis (7) Anemia Anemia type: unspecified type Qualified Code(s): D64.9 - Anemia, unspecified
--- NOTE | 2025-03-05 17:40 | Nephrology Progress Note ---
Date of Service March 05, 2025 Assessment & Plan (1) End stage renal disease on dialysis: Plan: Concern her hypotension may stem from worsening RH function in setting of plm HTN. hypotension limiting uf on HD recently, though BP improving w/ more midodrine and more UF and consistent /at least some bipap use. he had 3 L UF on both February 25 and , 2.5 L on , 2.5L on 03/03. Concerned that with untreated sleep apnea right heart failure is emerging complicated by aspiration pneumonitis and chronic pain/opiate overdose. hgb 10.8, potassium 4.3 Plan routine HD 03/05 w/ midodrine pending goals of care discussion Will continue to emphasize importance of BiPAP/CPAP, extreme care with medications pending goals of care discussion > care /meds reviewed extensively w/ palliative by Dr Kumar -unfortuately w/ challenges swallowing, cannot tolerate binders; we do not currently have binders that can be crushed or capsules that can open; appreciate pharmacy efforts reviewing Seen by Palliative care team-- final decision on friday/ friday. (2) Right heart failure due to pulmonary hypertension: Plan: Diagnosed October 2022 with severe sleep apnea with hypoxia; has not yet followed up to be fitted for device >>continue trial cpap/bipap while in house if able and trouble shoot proactively barriers to use >>>depending on goals of d/c primary service to work on can we/how can we get bipap/cpap for her as OP in expedited way (3) Aspiration pneumonia: Plan: aspiration pneumonitis after emesis during opiate withdrawal this admission > remains on 2L ; WBC up today (4) Opiate overdose: Plan: appreciate palliative discussion of dependence v addiction and of complexities surrounding polypharmacy for this pt. responded to narcan in ED; challenging situation w/ chronic pain for this pt and ESRD since opiates are standard of care here though concerns for hyperalgesia on opiates earlier this year and limited pain mgt options >> at some point ?kyphoplasty T spine? pain control has been very good here > even today when walking some w/ PT (5) Frequent falls: Plan: her R knee on admission was scabbed, swollen though nontender; distal RLE on admission red, warm and slightly swollen. L not so. approx 02/06 she fell down at home, sitting down hard on floor; also saw PCP 02/13 w/ c/o c spine pain and BL arm weakness >>thoracic and multiple lumbar vertebral compression fractures as below (6) Compression fracture of body of thoracic vertebra: Plan: OP chest CT was recommended to further evaluate 02/12 T spine XR given questionable asymmetric disc space widening inferior to vertebral body > at some point suggest full spinal assessment w/ CT and ? eval for kyphoplasty T spine << all as outpatient -no C spine fractures -T spine CF known from OP -stable mild vertebral compression fractures at all lumbar levels per imaging will need pain control for above >>>consider getting CT of T spine in house as it may affect pain mgt decisions (7) Goals of care, counseling/discussion: Plan: palliative on board now (8) Malfunction of arteriovenous dialysis fistula: Plan: R arm less edematous today and achieved Qb 300 ml/min 03/03 only w/ prolonged bleeding on 03/01; pending final goals of care discussions; if continues HD, will likely need to repeat angioplasty as done earlier this year; believe arm will still run for a few more txs at least however Admission and Anticipated Discharge Date Admission Date: February 24, 2025 Subjective Patient seen and examined on dialysis. She reports strength slowly improving but feels still tired. Vital signs appear stable. RUE swelling w/ no s/s of cellulitis. Results & Data Vital Signs (Past 12 Hours) Vital Signs Temp Pulse Pulse Pulse Resp BP BP 03/05/25 16:00 78 03/05/25 15:47 36.7 C 86 18 106/62 03/05/25 13:10 36.3 C L 76 106/52 L 03/05/25 12:30 80 95/48 L 03/05/25 12:00 78 92/48 L 03/05/25 11:30 75 92/47 L 03/05/25 11:00 78 102/50 L 03/05/25 10:30 78 89/50 L 03/05/25 10:00 76 101/54 L 03/05/25 09:30 70 115/50 L 03/05/25 09:05 75 125/54 L 03/05/25 08:53 36.3 C L 75 03/05/25 08:00 03/05/25 08:00 69 03/05/25 07:37 36.3 C L 72 19 108/55 L Pulse Ox Pulse Ox O2 Del Method O2 Del Method O2 Flow Rate O2 Flow Rate 03/05/25 16:00 03/05/25 15:47 100 Nasal Cannula 1.0 03/05/25 13:10 03/05/25 12:30 03/05/25 12:00 03/05/25 11:30 03/05/25 11:00 03/05/25 10:30 03/05/25 10:00 03/05/25 09:30 03/05/25 09:05 03/05/25 08:53 03/05/25 08:00 100 Nasal Cannula 2 03/05/25 08:00 03/05/25 07:37 100 Nasal Cannula 2 Laboratory Results 03/05/25 05:36 03/05/25 05:36 (3) Aspiration pneumonia Aspiration pneumonia type: unspecified Laterality: unspecified laterality L harrison location: unspecified part of lung Qualified Code(s): J69.0 - Pneumonitis due to inhalation of food and vomit (4) Opiate overdose Encounter type: initial encounter Injury intent: undetermined intent Qualified Code(s): T40.604A - Poisoning by unspecified narcotics, undetermined, initial encounter
[2025-03-06 07:51] LABS: Mean Corpuscular Hemoglobin 32.3 pg (25.0-34.0); Mean Corpuscular Hgb Conc 31.7 g/dL (32.0-36.0); Mean Platelet Volume 9.9 fL (9.4-12.4); Platelet Count 213 K/uL (130-400); RDW Coefficient of Variation 18.5 % (11.5-14.5); RDW Standard Deviation 67.8 fL (36.4-46.3); Red Blood Count 4.02 M/uL (4.20-5.40); White Blood Count 13.79 K/ul (4.8-10.8)
[2025-03-06 08:44] LABS: BUN Creatinine Ratio 8.1 (10-20); Calcium 7.9 mg/dl (8.6-10.3); Creatinine Clr Calc Pharmacy 16.4 ml/min; Potassium 3.1 mmol/L (3.5-5.1)
--- NOTE | 2025-03-06 14:29 | Hospitalist Progress Note ---
Date of Service March 06, 2025 Assessment & Plan (1) Aspiration pneumonia: (2) Opiate overdose: (3) Hypovolemic shock: (4) Elevated troponin I level: (5) End stage renal disease on dialysis: (6) DM type 2 (diabetes mellitus, type 2): (7) Anemia: Plan 70 y/o female with ESRD on HD, DM2, hx PE, anemia in ESRD, psoriasis, hyperlipidemia, and other history as outlined below who presented to the ED from HD on 02/24 with a syncopal episode. 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 Upon initial presentation, pt was noted to be hypotensive and hypoxic and was given Narcan in the ED as well as a dose of midodrine and 250 cc bolus with improvement of BP, initiation of O2 with improvement of hypoxia. However, after Narcan, pt with significant agitation and tremulousness. Referred for admission for further management. Chest x-ray concerning for potential aspir ation. Escalating need for respiratory support in the ED - supplemental O2 via NC, then escalation to BiPAP. Attending spoke with sales recruiting coordinator who evaluated pt in the ED regarding need for additional respiratory support. Patient was then admitted to ICU for pressor requirement and need for persistent BiPAP. #Aspiration pneumonia #Acute Hypoxic respiratory failure #Possible Septic shock, POA Patient presented to the hospital from dialysis clinic with a syncopal episode. She had episode of nausea and vomiting. Given Narcan for possible opioid overdose. Was hypotensive, hypoxic requiring vasopressors and BiPAP respectively in the ED. admitted to ICU Chest x-ray shows pulmonary edema and increased infiltrate on right side Echo shows EF of 55 to 60% with grade 2 diastolic dysfunction. pulm htn CTA chest done on 02/25 did not show PE; consistent with pulmonary edema and pleural effusion bilaterally(more than right side) Patient is off vasopressors since February 27, 2025 and transferred to PCU Status post 5 days of ampicillin Continue on midodrine for low blood pressure. Continue incentive spirometry PT OT evaluation recommended rehab; patient deconditioned significantly from baseline. Case management on board States no more cough, monitor, CXR 03/04 w/ no concern for pna. Pt denies pain and burn while passing urine. Urine has not been collected, Bl Cx NG 48 hours. WBC trending up x last few days, will start augmentin 03/06 (? incomplete Rx of aspiration pna early on) Frequent falls Compression fractures of vertebrae Patient with history of frequent falls, T-spine compression fracture and L- spine compression fractures present. Plan for T-spine CT as an outpatient. c/w PT/OT. Right heart failure due to pulmonary hypertension/severe sleep apnea: Diagnosed October 2022 with severe sleep apnea with hypoxia, patient has not followed up to be fitted for the device, patient to follow-up as an outpatient. #Possible opioid overdose - received Narcan in the ED, Patient is on oxycodone 15 mg 3 times daily as needed at home; was recently prescribed on 02/16. Was given Narcan in the ED possibly precipitated withdrawal Plan to reduce dose to 2.5 mg as needed 3 times daily. She would benefit from outpatient referral for addiction medicine. #ESRD on HD/Malfunction of arteriovenous dialysis fistula:-Dialysis as per nephrology, RUE edematous, likely need repeat angioplasty as done earlier this year. Vascular consult on Friday. #Type 2 Diabetes - BSG ACHS - Diabetic diet Hyperlipidemiacontinue simvastatin Mood disorderrcontinue on home meds RLS- continue on ronirole Polypharmacy: requip dose being decreased, pt on 2 ssri, wean down and stop paroxetine. #Anemia - Chronic related to ESRD - no evidence of active bleeding at present Full code DVT prophylaxis heparin Dispositionsnf, cm assisting. possible dc after vascular eval coming friday. pt's kamille give a phone call 03/04, updated, answered all his questions. Please note the above document was generated using voice recognition software. It may contain grammatical, syntax or spelling errors. Any formal questions or concerns about the content, text or information contained within the body of this dictation should be directly addressed to the provider for clarification Admission and Anticipated Discharge Date Admission Date: February 24, 2025 Subjective Patient seen and examined at bedside. She reports strength slowly improving but feels still tired. Denies any particular pain or discomfort. No skin rashes or signs of infection, reports no cough, denies sore throat. WBC trending up since last few days, will trial augmentin (?incomplete Rx of aspiration pna earlier on), Bl Cx has been neg, pt agreeable for antibiotic treatment. Vital signs appear stable, temp on slightly lower side. RUE swelling w/ no s/s of cellulitis. Swelling has improved today. Physical Exam Physical Exam: Constitutional: Awake, alert oriented x 3. On 2L NC O2. appears ill/weak/frail. Respiratory: Bilateral basal crackles present. Cardiovascular: RRR, no murmur, no edema Vessels: no JVD or carotid bruit Chest: normal inspection of chest Abdomen: normal bowel sounds, soft, nontender, no hepatosplenomegaly Musculoskeletal: no cyanosis or clubbing, extremities motor strength 5/5 Skin: no rashes, warm and dry normal turgor Neurologic: PERRL, EOMI, accommodation nl, no face palsy, no dysarthria CN's II- XI intact bilaterally and moves all extremities Results & Data Results & Data Vital Signs (Past 12 Hours) Vital Signs Temp Pulse Pulse Resp BP Pulse Ox O2 Del Method 03/06/25 11:17 36.3 C L 74 19 116/71 100 Nasal Cannula 03/06/25 07:37 82 03/06/25 07:32 36.2 C L 84 19 131/74 99 Nasal Cannula 03/06/25 03:20 36.5 C 84 18 126/66 95 Nasal Cannula O2 Flow Rate 03/06/25 11:17 03/06/25 07:37 03/06/25 07:32 1 03/06/25 03:20 1 (1) Aspiration pneumonia Aspiration pneumonia type: unspecified Laterality: unspecified laterality Lung location: unspecified part of lung Qualified Code(s): J69.0 - Pneumonitis due to inhalation of food and vomit (2) Opiate overdose Encounter type: initial encounter Injury intent: undetermined intent Qualified Code(s): T40.604A - Poisoning by unspecified narcotics, undetermined, initial encounter (6) DM type 2 (diabetes mellitus, type 2) Diabetes mellitus intermediate school teacher insulin use: without intermediate school teacher use Diabetes mellitus complication status: with kidney complications Diabetes mellitus complication detail: with chronic kidney disease Chronic kidney disease stage: on chronic dialysis Qualified Code(s): E11.22 - Type 2 diabetes mellitus with diabetic chronic kidney disease; N18.6 - End stage renal disease; Z99.2 - Dependence on renal dialysis (7) Anemia Anemia type: unspecified type Qualified Code(s): D64.9 - Anemia, unspecified
[2025-03-07 07:00] LABS: Hematocrit (blood only) 39.4 % (37.0-47.0); Hemoglobin 12.4 g/dl (12.0-16.0); Mean Corpuscular Hemoglobin 31.7 pg (25.0-34.0); Mean Corpuscular Hgb Conc 31.5 g/dL (32.0-36.0); Mean Corpuscular Volume 100.8 fL (80.0-100.0); Mean Platelet Volume 9.5 fL (9.4-12.4); Platelet Count 209 K/uL (130-400); RDW Coefficient of Variation 18.6 % (11.5-14.5); Red Blood Count 3.91 M/uL (4.20-5.40); White Blood Count 10.29 K/ul (4.8-10.8)
[2025-03-07 07:20] LABS: Calcium 7.1 mg/dl (8.6-10.3); Creatinine Clr Calc Pharmacy 11.4 ml/min; Potassium 3.5 mmol/L (3.5-5.1)
--- NOTE | 2025-03-07 10:15 | Consultation ---
Date of Consultation March 07, 2025 Assessment & Plan (1) Malfunction of arteriovenous dialysis fistula: Pt with functioning RUE AVF, but increased venous pressures and prolonged bleeding per staff. Will likely require fistulagram at some point, however, pt with sx concerning for vascular steal syndrome in R hand. She has weakness, numbness, coolness, dusky discoloration, and small wound to 2nd finger. Continues to deny any pain in R fingers/hand. Discussed with Dr Mena, recommends dialysis access US and arterial US of RUE to eval for steal. Further recommendations after imaging. History of Present Illness Reason for Consultation: malfunctioning RUE AVF Attending Physician: Roscoe Holder MD History of Present Illness 70 yo f with ESRD on HD, pulmonary htn, CHF, dyslipidemia, MINDI, RLS, DMII, HTN, anxiety/depression, anemia, admitted for syncopal episode at HD, seen in consultation today for malfunctioning RUE AVF. Pt well known to Dr Mena for HD access. Most recently, she underwent a revision of her RUE AVF a few months ago. Per pt, it has been functioning well. Admits mild edema of RUE, but states this is much improved compared to before her recent surgery. Pt admits weaknes, numbness, purple discoloration of R hand/fingers. States she is unsure whether she wants to continue with HD. Per HD unit, pt has increased venous pressures in RUE AVF, and prolonged bleeding after treatment. Pt denies pain in fingers, SKY, fever, chest pain, SOB, abd pain, N/V, claudication, other complaints. Pt is primarily wheelchair bound. Allergies Allergy/AdvReac Type Severity Reaction Status Date / Time Sulfa (Sulfonamide Allergy Severe Face/lips/tongue Verified 10/30/24 15:19 Antibiotics) edema nitrofurantoin Allergy Intermediate Hives Verified 10/30/24 15:19 cefazolin [From Ancef] Allergy Unknown CAN'T Verified 10/30/24 15:19 REMEMBER pantoprazole [From Protonix] Allergy Unknown CAN'T Verified 10/30/24 15:19 REMEMBER methylprednisolone AdvReac Intermediate Sweating, Verified 10/30/24 15:19 [From Medrol] heart racing Home Medications Medication Instructions Recorded Confirmed Type gabapentin 100 mg capsule 100 mg PO DIRECTED 12/31/18 02/24/25 History betamethasone dipropionate 0.05 % 1 applic topical BID PRN 11/15/23 02/24/25 History topical ointment PSORIASIS/ITCHING ropinirole 2 mg tablet 2 mg PO HS 11/15/23 02/24/25 History simvastatin 20 mg tablet 20 mg PO HS 11/15/23 02/24/25 History vitamin B complex-vitamin C-folic 1 tab PO QAM 11/15/23 02/24/25 History acid 0.8 mg tablet (Anais-Federico) cholecalciferol (vitamin D3) 125 125 mcg PO UD 09/23/24 02/24/25 History mcg (5,000 unit) tablet (Vitamin D3) cinacalcet 90 mg tablet (Sensipar) 180 mg PO QPM 09/23/24 02/24/25 History epoetin beta, methoxy peg 100 100 mcg IV UD 09/23/24 02/24/25 History mcg/0.3 mL injection syringe (Mircera) iron sucrose 50 mg iron/2.5 mL 50 mg IV UD 09/23/24 02/24/25 History intravenous solution lanthanum 750 mg chewable tablet 750 mg PO TIDWMEAL 10/30/24 02/24/25 History (Fosrenol) triamcinolone acetonide 0.1 % 1 applic topical BID PRN Skin 10/30/24 02/24/25 History topical ointment Irritation midodrine 2.5 mg tablet 5 mg PO UD 12/21/24 02/24/25 History guaifenesin 600 mg tablet, 600 mg PO Q12 PRN cough/congestion 12/23/24 02/24/25 Rx extended release 12 hr (Mucinex) #30 tabs citalopram 10 mg tablet 10 mg PO DAILY 02/24/25 02/24/25 History dulaglutide 0.75 mg/0.5 mL 0.75 mg subcut WK 02/24/25 02/24/25 History subcutaneous pen injector (Trulicity) lorazepam 0.5 mg tablet 0.5 mg PO HS PRN Anxiety 02/24/25 02/24/25 History oxycodone 15 mg tablet 15 mg PO Q8H PRN Pain, Severe 02/24/25 02/24/25 History paroxetine HCl 10 mg tablet 10 mg PO DAILY 02/24/25 02/24/25 History Patient History Medical History Advanced care planning/counseling discussion Swelling of right upper extremity Lower urinary tract symptoms (LUTS) Hx of fall ESRD (end stage renal disease) on dialysis Diaylsis Tues/Thurs/Sat- [facility] Follows with Dr. Perez Chronic pain History of cellulitis Anemia Hx of gastrointestinal hemorrhage History of dialysis fistulography Ambulatory dysfunction walker-dependent Anxiety and depression RLS (restless legs syndrome) History of blood transfusion 2022 Pulmonary hypertension mild on 2020 echo Sleep apnea severe-not currently treated per pt Moderate aortic stenosis (MELCHOR 0.8 cm2, mean PG 20 mmHg) Diabetes mellitus, type 2 Limb alert care status RUE AVF Osteoporosis HLD (hyperlipidemia) Psoriasis History of renal calculi History of DVT (deep vein thrombosis) RLE, 10+ years ago, post op AC therapy x 3-6 months after > d/c'd + no issues since History of pulmonary embolus (PE) 10+ years ago, post op- no issues since Surgical History History of esophagogastroduodenoscopy (EGD) Hx of bilateral hip replacements H/O laparoscopy History of cystoscopy S/P arteriovenous (AV) fistula repair (~2020) x2 right- currently getting HD History of tooth extraction History of x 2 S/P arteriovenous (AV) fistula creation x 2 BL (non functioning on left)--left still in place not working History of colonoscopy H/O partial resection of colon (2012) For diverticulitis H/O inguinal hernia repair left S/P cholecystectomy Family History Mother Diabetes Sister Diabetes Other No family history of adverse response to anesthesia Social History Smoking Status: Never smoker Tobacco Type: Cigarettes Second Hand Exposure: No; Do You Dip or Chew Tobacco: No; Hx Alcohol Use: No Hx Substance Use: No Preferred Language: Argentine Communication Ability: Effective Core Machine Operator Required: No Beliefs That Will Affect Care: None marital status: Current Living Situation: Spouse Current Living Situation Comment: lives in 2 story home with , daughter and grandson How many Children do You have: 3 Other Information That Helps Us Care for You: No Feels Safe at Home: Yes Safety Concerns: Feels Safe At This Time Assistive Devices: Oxygen - Continuous and Walker Review of Systems Review of Systems: All systems reviewed & are unremarkable except as noted in HPI & below Physical Exam Constitutional: WD/WN, vitals as above + obese, cooperative and comfortable; not in distress Respiratory: normal respiratory effort, lungs clear to auscultation Auscultation: + diminished lung sounds Cardiovascular: Rate/Rhythm: regular rate and regular rhythm Vessels: radial pulses present (R nonpalpable, L +2); + abnormal peripheral pulses Extremities: + AV fistula (RUE + thrill/bruit); + abnormal capillary refill (R fingers delayed 7 seconds) Gastrointestinal (Abdomen): Inspection/Auscultation: abdomen normal to ins pection and normal bowel sounds Percussion/Palpation: abdomen soft; abdomen nontender Musculoskeletal: RUE fingers dusky/purple, small wound to 2nd fingertip and dorsum hand, strength 2/5 Skin: no rashes, warm and dry Neurologic: moves all extremities and awake; no focal motor deficits and not confused Psychiatric: Orientation: alert and oriented x 3 Affect: + depressed affect Results & Data Vital Signs (Past 12 Hours) Vital Signs Temp Pulse Pulse Resp BP Pulse Ox Pulse Ox 03/07/25 08:00 98 03/07/25 08:00 83 03/07/25 07:38 36.3 C L 76 18 109/59 L 100 03/07/25 02:38 36.3 C L 79 20 133/78 100 03/07/25 00:00 82 03/06/25 23:01 36.4 C L 81 20 129/69 100 O2 Del Method O2 Del Method O2 Flow Rate O2 Flow Rate 03/07/25 08:00 Nasal Cannula 1 03/07/25 08:00 03/07/25 07:38 Nasal Cannula 1 03/07/25 02:38 Nasal Cannula 1 03/07/25 00:00 03/06/25 23:01 Nasal Cannula 1
--- NOTE | 2025-03-07 14:10 | Hospitalist Progress Note ---
Date of Service March 07, 2025 Assessment & Plan (1) Aspiration pneumonia: (2) Opiate overdose: (3) Hypovolemic shock: (4) Elevated troponin I level: (5) End stage renal disease on dialysis: (6) DM type 2 (diabetes mellitus, type 2): (7) Anemia: Plan 70 y/o female with ESRD on HD, DM2, hx PE, anemia in ESRD, psoriasis, hyperlipidemia, and other history as outlined below who presented to the ED from HD on 02/24 with a syncopal episode. 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 Upon initial presentation, pt was noted to be hypotensive and hypoxic and was given Narcan in the ED as well as a dose of midodrine and 250 cc bolus with improvement of BP, initiation of O2 with improvement of hypoxia. However, after Narcan, pt with significant agitation and tremulousness. Referred for admission for further management. Chest x-ray concerning for potential aspir ation. Escalating need for respiratory support in the ED - supplemental O2 via NC, then escalation to BiPAP. Attending spoke with aeroplane pilot who evaluated pt in the ED regarding need for additional respiratory support. Patient was then admitted to ICU for pressor requirement and need for persistent BiPAP. #Aspiration pneumonia #Acute Hypoxic respiratory failure #Possible Septic shock, POA Patient presented to the hospital from dialysis clinic with a syncopal episode. She had episode of nausea and vomiting. Given Narcan for possible opioid overdose. Was hypotensive, hypoxic requiring vasopressors and BiPAP respectively in the ED. admitted to ICU Chest x-ray shows pulmonary edema and increased infiltrate on right side Echo shows EF of 55 to 60% with grade 2 diastolic dysfunction. pulm htn CTA chest done on 02/25 did not show PE; consistent with pulmonary edema and pleural effusion bilaterally(more than right side) Patient is off vasopressors since February 27, 2025 and transferred to PCU Status post 5 days of ampicillin Continue on midodrine for low blood pressure. Continue incentive spirometry PT OT evaluation recommended rehab; patient deconditioned significantly from baseline. Case management on board States no more cough, monitor, CXR 03/04 w/ no concern for pna. Pt denies pain and burn while passing urine. Urine has not been collected, Bl Cx NG 48 hours. WBC trending up x last few days, started augmentin 03/06 (? incomplete Rx of aspiration pna early on) --> WBC trending down. Frequent falls Compression fractures of vertebrae Patient with history of frequent falls, T-spine compression fracture and L- spine compression fractures present. Plan for T-spine CT as an outpatient. c/w PT/OT. Right heart failure due to pulmonary hypertension/severe sleep apnea: Diagnosed October 2022 with severe sleep apnea with hypoxia, patient has not followed up to be fitted for the device, patient to follow-up as an outpatient. #Possible opioid overdose - received Narcan in the ED, Patient is on oxycodone 15 mg 3 times daily as needed at home; was recently prescribed on 02/16. Was given Narcan in the ED possibly precipitated withdrawal Plan to reduce dose to 2.5 mg as needed 3 times daily. She would benefit from outpatient referral for addiction medicine. #ESRD on HD/Malfunction of arteriovenous dialysis fistula:-Dialysis as per nephrology, RUE edematous, likely need repeat angioplasty as done earlier this year. Vascular sx evaluating. #Type 2 Diabetes - BSG ACHS - Diabetic diet Hyperlipidemiacontinue simvastatin Mood disorderrcontinue on home meds RLS- continue on ronirole Polypharmacy: requip dose being decreased, pt on 2 ssri, wean down and stop pa roxetine. #Anemia - Chronic related to ESRD - no evidence of active bleeding at present Full code DVT prophylaxis heparin Dispositionsnf, cm assisting. possible dc after vascular eval and recs and possibly after palliative eval ? Friday. pt's kamille give a phone call 03/04, updated, answered all his questions. Please note the above document was generated using voice recognition software. It may contain grammatical, syntax or spelling errors. Any formal questions or concerns about the content, text or information contained within the body of this dictation should be directly addressed to the provider for clarification Admission and Anticipated Discharge Date Admission Date: February 24, 2025 Subjective Patient seen and examined at bedside. She still is weak and heavy assist. Denies any particular pain or discomfort. No skin rashes or signs of infection, reports no cough, denies sore throat. WBC trending down once augmentin started. RUE swelling w/ no s/s of cellulitis. Swelling has improved today. No pain, some dusky discoloration of hand. Physical Exam Physical Exam: Constitutional: Awake, alert oriented x 3. On 2L NC O2. appears ill/weak/frail. Respiratory: Bilateral basal crackles present. Cardiovascular: RRR, no murmur, no edema Vessels: no JVD or carotid bruit Chest: normal inspection of chest Abdomen: normal bowel sounds, soft, nontender, no hepatosplenomegaly Musculoskeletal: no cyanosis or clubbing, extremities motor strength 5/5 Skin: no rashes, warm and dry normal turgor, dusky discoloration of rt hand/non tender Neurologic: PERRL, EOMI, accommodation nl, no face palsy, no dysarthria CN's II- XI intact bilaterally and moves all extremities Results & Data Results & Data Vital Signs (Past 12 Hours) Vital Signs Temp Pulse Pulse Resp BP Pulse Ox Pulse Ox 03/07/25 11:47 36.3 C L 76 18 115/75 98 03/07/25 10:08 03/07/25 08:00 98 03/07/25 08:00 83 03/07/25 07:38 36.3 C L 76 18 109/59 L 100 03/07/25 02:38 36.3 C L 79 20 133/78 100 O2 Del Method O2 Del Method O2 Flow Rate O2 Flow Rate 03/07/25 11:47 Room Air 03/07/25 10:08 Nasal Cannula 1 03/07/25 08:00 Nasal Cannula 1 03/07/25 08:00 03/07/25 07:38 Nasal Cannula 1 03/07/25 02:38 Nasal Cannula 1 (1) Aspiration pneumonia Aspiration pneumonia type: unspecified Laterality: unspecified laterality Lung location: unspecified part of lung Qualified Code(s): J69.0 - Pneumonitis due to inhalation of food and vomit (2) Opiate overdose Encounter type: initial encounter Injury intent: undetermined intent Qualified Code(s): T40.604A - Poisoning by unspecified narcotics, undetermined, initial encounter (6) DM type 2 (diabetes mellitus, type 2) Diabetes mellitus half-way insulin use: without director long term care use Diabetes mellitus complication status: with kidney complications Diabetes mellitus complication detail: with chronic kidney disease Chronic kidney disease stage: on chronic dialysis Qualified Code(s): E11.22 - Type 2 diabetes mellitus with diabetic chronic kidney disease; N18.6 - End stage renal disease; Z99.2 - Dependence on renal dialysis (7) Anemia Anemia type: unspecified type Qualified Code(s): D64.9 - Anemia, unspecified
--- NOTE | 2025-03-07 19:08 | Ultrasound Report ---
EXAM: US hemodialysis fistula CLINICAL HISTORY: Vascular steal. TECHNIQUE: Ultrasound examination of the right upper limb arteries and fistula was performed in real-time and duplex. One or more of the following were performed: spectral analysis, resistive index, waveform analysis, and pulsed Doppler. COMPARISON: No previous studies are available for comparison. FINDINGS: Brachiocephalic arteriovenous fistula is noted, being patent and of average diameter, with the following measurements: - The PSV at the arterial side ranges from 135-150 cm/sec. - The PSV inside the fistula ranges from 210 -420 cm/sec. - The PSV at the venous side ranges from 210-360 cm/sec. Fistula appears patent. An abnormal area of high PSV is noted at the venous side, increased velocity 608 cm/s just superior to the graft seen in the upper arm cephalic area, adjacent to where the graft appears to be increased flow here higher than the surrounding areas. Chronic thrombosis of the basilic vein is noted, with a peripheral thrombosis seen adherent to the wall. Carotid artery Biphasic PS/ED: 56.9/8.9 cm/sec Vertebral artery Biphasic PS/ED: 33.6/9.2 cm/sec Subclavian artery Biphasic PS/ED: 145.4/43 cm/sec Axillary artery Biphasic Elevated flow velocities are noted. PS/ED: 204/85.9 cm/sec. Brachial artery Biphasic Elevated flow velocities are noted. PS/ED: 227/84.4 cm/sec at the proximal part PS/ED: 269/92 cm/sec at the middle part PS/ED: 234/84 cm/sec at the distal part Ulnar artery Biphasic to monophasic PS/ED: 33/7 cm/sec at the proximal part damped to 11 cm/sec at the wrist level. Radial artery Biphasic to monophasic PS/ED: 31/6.8 cm/sec at the proximal part, reaching 52/7.4 cm/sec at the wrist level Biphasic waveforms are noted in the proximal arteries down to the level of the brachial artery. Biphasic and monophasic waveforms are noted in the radial and ulnar arteries. Mild focal calcific plaque formation noted at the right carotid artery. No mural plaques or hemodynamically significant stenosis is noted in the arteries of the right upper limb. No evidence of significant stenosis (50%) or hemodynamically significant lesions. The peak systolic velocities are considered high as a sequel of hyperdynamic circulation exerted by the effect of the right brachiocephalic fistula, yet with damped flow inside the radial and ulnar arteries, suggestive of the steal phenomenon. Collateral Circulation: No significant collateral circulation is noted, indicative of chronic arterial occlusion. Additional Findings: Not significant. IMPRESSION: 1. The brachiocephalic fistula appears patent, with average flow inside noted. 2. 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 3. High biphasic flow inside the right upper limb arteries down to the brachial level, as a sequel of hyperdynamic circulation exerted by the effect of the right brachiocephalic fistula. 4. Dampened flow inside the radial and ulnar arteries, suggestive of the steal phenomenon. RECOMMENDATIONS: Clinical correlation with symptoms and further evaluation (With CTA/MRA to be determined clinically/as indicated). Electronically signed by Matheus Hernandez 03-07-2025 7:08 PM
--- NOTE | 2025-03-07 19:10 | Ultrasound Report ---
EXAM: US arterial duplex UE RT CLINICAL HISTORY: Vascular steal. TECHNIQUE: Ultrasound examination of the right upper limb arteries and fistula was performed in real-time and duplex. One or more of the following were performed: spectral analysis, resistive index, waveform analysis, and pulsed Doppler. COMPARISON: No previous studies are available for comparison. FINDINGS: Doppler velocities: Carotid artery Biphasic PS/ED: 56.9/8.9 cm/sec Vertebral artery Biphasic PS/ED: 33.6/9.2 cm/sec Subclavian artery Biphasic PS/ED: 145.4/43 cm/sec Axillary artery Biphasic Elevating flow velocities are noted. PS/ED: 204/85.9 cm/sec. Brachial artery Biphasic Elevating flow velocities are noted. PS/ED: 227/84.4 cm/sec at the proximal part PS/ED: 269/92 cm/sec at the middle part PS/ED: 234/84 cm/sec at the distal part Ulnar artery Biphasic to monophasic PS/ED: 33/7 cm/sec at the proximal part damped to 11 cm/sec at the wrist level. Radial artery Biphasic to monophasic PS/ED: 31/6.8 cm/sec at the proximal part, reaching 52/7.4 cm/sec at the wrist level Biphasic waveforms are noted in the proximal arteries down to the level of the brachial artery. Biphasic and monophasic waveforms are noted in the radial and ulnar arteries. Mild focal calcific plaque formation noted at the right carotid artery. No mural plaques or hemodynamically significant stenosis is noted in the arteries of the right upper limb. No evidence of significant stenosis (50%) or hemodynamically significant lesions. The peak systolic velocities are considered high as a sequel of hyperdynamic circulation exerted by the effect of the right brachiocephalic fistula, yet with damped flow inside the radial and ulnar arteries, suggestive of the steal phenomenon. Collateral Circulation: No significant collateral circulation is noted, indicative of chronic arterial occlusion. Additional Findings: Brachiocephalic arteriovenous fistula is noted, being patent and of average diameter, with the following measurements: - The PSV at the arterial side ranges from 135-150 cm/sec. - The PSV inside the fistula ranges from 210 -420 cm/sec. - The PSV at the venous side ranges from 210-360 cm/sec. Fistula appears patent. An abnormal area of high PSV is noted at the venous side, increased velocity 608 cm/s just superior to the graft seen in the upper arm cephalic area, adjacent to where the graft appears to be increased flow here higher than the surrounding areas. Chronic thrombosis of the basilic vein is noted, with a peripheral thrombosis seen adherent to the wall. IMPRESSION: 1. The brachiocephalic fistula appears patent, with average flow inside noted. 2. 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 3. High biphasic flow inside the right upper limb arteries down to the brachial level, as a sequel of hyperdynamic circulation exerted by the effect of the right brachiocephalic fistula. 4. Dampened flow inside the radial and ulnar arteries, suggestive of the steal phenomenon. RECOMMENDATIONS: Vascular consultation. Clinical correlation with symptoms and further evaluation (With CTA/MRA to be determined clinically/as indicated). Electronically signed by Matheus Hernandez 03-07-2025 7:10 PM
--- NOTE | 2025-03-07 20:21 | Nephrology Progress Note ---
Date of Service March 07, 2025 Assessment & Plan (1) End stage renal disease on dialysis: Plan: Concern her hypotension may stem from worsening RH function in setting of plm HTN. hypotension limiting uf on HD recently/prior to admission, though BP improving w/ more midodrine and more UF and consistent /at least some bipap use. had 3 L UF on both February 25 and , 2.5 L on , 2.5L on 03/03, 2.3 L 03/05. Concerned that with untreated sleep apnea right heart failure is emerging complicated by aspiration pneumonitis and chronic pain/opiate overdose. hgb 12.4, potassium 3.5 Plan routine HD 03/08 w/ midodrine pending goals of care discussion and decision about AVF intervention/fistulagram results Will continue to emphasize importance of BiPAP/CPAP, extreme care with medications pending goals of care discussion > care /meds reviewed extensively w/ palliative by Dr Kumar -unfortuately w/ challenges swallowing, cannot tolerate binders; we do not currently have binders that can be crushed or capsules that can open; appreciate pharmacy efforts reviewing (2) Malfunction of arteriovenous dialysis fistula: Plan: R arm less edematous today but purpolish/ delayed cap refill and wound on fingertip. -fistula gram upcoming and achieved Qb 300 ml/min 03/03 only w/ prolonged bleeding on 03/01; pending final goals of care discussions; >if she continues HD, will likely need to repeat angioplasty as done earlier this year; believe arm will still run for a few more txs at least however (3) Goals of care, counseling/discussion: Plan: palliative on board now; f/u further discussion 03/09 (4) Right heart failure due to pulmonary hypertension: Plan: Diagnosed October 2022 with severe sleep apnea with hypoxia; has not yet followed up to be fitted for device >>continue trial cpap/bipap while in house if able and trouble shoot proactively barriers to use >>>depending on goals of d/c primary service to work on can we/how can we get bipap/cpap for her as OP in expedited way (5) Aspiration pneumonia: Plan: aspiration pneumonitis after emesis during opiate withdrawal this admission > remains on 2L ; WBC up today (6) Opiate overdose: Plan: appreciate palliative discussion of dependence v addiction and of complexities surrounding polypharmacy for this pt. responded to narcan in ED; challenging situation w/ chronic pain for this pt and ESRD since opiates are standard of care here though concerns for hyperalgesia on opiates earlier this year and limited pain mgt options >> at some point ?kyphoplasty T spine? pain control has been very good here > even today when walking some w/ PT (7) Frequent falls: Plan: her R knee on admission was scabbed, swollen though nontender; distal RLE on admission red, warm and slightly swollen. L not so. approx 02/06 she fell down at home, sitting down hard on floor; also saw PCP 02/13 w/ c/o c spine pain and BL arm weakness >>thoracic and multiple lumbar vertebral compression fractures as below (8) Compression fracture of body of thoracic vertebra: Plan: OP chest CT was recommended to further evaluate 02/12 T spine XR given questionable asymmetric disc space widening inferior to vertebral body > at some point suggest full spinal assessment w/ CT and ? eval for kyphoplasty T spine << all as outpatient -no C spine fractures -T spine CF known from OP -stable mild vertebral compression fractures at all lumbar levels per imaging will need pain control for above >>>consider getting CT of T spine in house as it may affect pain mgt decisions Admission and Anticipated Discharge Date Admission Date: February 24, 2025 Subjective delayed note entered for mid/late AM visit today; no n/v; ambulated 23 feet w/ PT and walker. exhausted w/ this. ongoing poor sleep and not using cpap, at least did not last evening. knows she needs fistulagram but leaning still towards hospice abbie if large intervention needed. Review of Systems 2 Review of Systems: All systems reviewed & are unremarkable except as noted in Subjective Physical Exam 2 Constitutional: well developed ( tired), + physical limitations, + frail appearing, well groomed and cooperative; no acute distress Eyes: EOM intact bilaterally ENMT: Mouth: + dry oral mucous membranes Respiratory: normal respiratory effort, able to speak in complete sentences and + paradoxical thoraco-abdominal movement; no labored breathing A uscultation: + diminished lung sounds and + crackles Cardiovascular: Rate/Rhythm: regular rate and regular rhythm Heart Sounds: + murmur Extremities: + edema (primarily AVF arm) and + AV fistula (avf arm purplish today w/ white spot one fingertip) Gastrointestinal (Abdomen): Inspection/Auscultation: normal bowel sounds P ercussion/Palpation: abdomen soft; abdomen nontender Musculoskeletal: Extremities: strength 5/5 throughout Skin: no rashes, warm and dry Psychiatric: Orientation: alert ( but tired), oriented x 3, oriented to person, oriented to place and oriented to time Results & Data Vital Signs (Past 12 Hours) Vital Signs Temp Pulse Pulse Resp BP Pulse Ox O2 Del Method 03/07/25 16:40 36.6 C 79 16 120/71 99 Nasal Cannula 03/07/25 16:00 74 03/07/25 11:47 36.3 C L 76 18 115/75 98 Room Air 03/07/25 10:08 Nasal Cannula O2 Flow Rate 03/07/25 16:40 1 03/07/25 16:00 03/07/25 11:47 03/07/25 10:08 1 Laboratory Results 03/07/25 06:15 03/07/25 06:15 (5) Aspiration pneumonia Aspiration pneumonia type: unspecified Laterality: unspecified laterality L harrison location: unspecified part of lung Qualified Code(s): J69.0 - Pneumonitis due to inhalation of food and vomit (6) Opiate overdose Encounter type: initial encounter Injury intent: undetermined intent Qualified Code(s): T40.604A - Poisoning by unspecified narcotics, undetermined, initial encounter
[2025-03-08 06:44] LABS: Hematocrit (blood only) 38.6 % (37.0-47.0); Hemoglobin 12.6 g/dl (12.0-16.0); Mean Corpuscular Hemoglobin 32.9 pg (25.0-34.0); Mean Corpuscular Hgb Conc 32.6 g/dL (32.0-36.0); Mean Corpuscular Volume 100.8 fL (80.0-100.0); Mean Platelet Volume 9.7 fL (9.4-12.4); Platelet Count 213 K/uL (130-400); RDW Coefficient of Variation 18.1 % (11.5-14.5); RDW Standard Deviation 66.8 fL (36.4-46.3); Red Blood Count 3.83 M/uL (4.20-5.40); White Blood Count 10.94 K/ul (4.8-10.8)
[2025-03-08 07:17] LABS: Calcium 6.7 mg/dl (8.6-10.3); Magnesium 2.5 mg/dl (1.7-2.4); Potassium 3.9 mmol/L (3.5-5.1)
[2025-03-08 07:28] LABS: BUN Creatinine Ratio 9.8 (10-20); Creatinine Clr Calc Pharmacy 9.3 ml/min
--- NOTE | 2025-03-08 12:28 | Dialysis Progress Note ---
Date of Service March 08, 2025 Assessment & Plan (1) End stage renal disease on dialysis: Plan: Concern her hypotension may stem from worsening RH function in setting of plm HTN. hypotension limiting uf on HD recently/prior to admission, though BP improving w/ more midodrine and more UF and consistent /at least some bipap use. Concerned that with untreated sleep apnea right heart failure is emerging complicated by aspiration pneumonitis and chronic pain/opiate overdose. had 3 L UF on both February 25 and , 2.5 L on , 2.5L on 03/03, 2.3 L 03/05. Some hypotension today, minimally responsive to Midodrine. Anticipate approximately 2.3 L UF today. She has not been using BiPAP the past several nights because it is uncomfortable. hgb 12.6, potassium 3.9 -states her preference would be to do in hospital dialysis March 10 and and then go home with hospice. I explained to her this may or may not be feasible but that it would be addressed at the goals of care discussion today and moving forward I am not emphasizing CPAP or BiPAP use anymore because she finds them uncomfortable Plan routine HD 03/10 w/ midodrine pending goals of care discussion and decision about AVF intervention/fistulagram results -unfortunately w/ challenges swallowing, cannot tolerate binders; we do not currently have binders that can be crushed or capsules that can open; appreciate pharmacy efforts reviewing Care coordinated by palliative team re goals of care, AVF status today w/ palliative team via TText. (2) Malfunction of arteriovenous dialysis fistula: Plan: R arm less edematous today but still purp so she got up to 400 blood flow trial over there jessi/ delayed cap refill and wound on fingertip. -fistula gram upcoming and achieved Qb 300 ml/min 03/03; some prolonged bleeding as well; but Qb 400 mL / min today for a whole hour ok x 1 hr before arterial pressures required lowering >if she continues HD, will likely need to repeat angioplasty as done earlier this year; believe arm will still run for a few more txs at least however she consistently declines AVF intervention; states would not want TDC if AVF were to stop working (3) Goals of care, counseling/discussion: Plan: palliative on board now; f/u further discussion 03/09 tells me she's "ready to move onward and over the rainbow;" does not want to continue dialysis longer term even w/ recent improvement (4) Right heart failure due to pulmonary hypertension: Plan: Diagnosed October 2022 with severe sleep apnea with hypoxia; has not yet followed up to be fitted for device >>continue trial cpap/bipap while in house if tolerated and trouble shoot proactively barriers to use (5) Aspiration pneumonia: Plan: aspiration pneumonitis after emesis during opiate withdrawal this admission > on RA today; WBC up today (6) Opiate overdose: Plan: appreciate palliative discussion of dependence v addiction and of complexities surrounding polypharmacy for this pt. responded to narcan in ED; challenging situation w/ chronic pain for this pt and ESRD since opiates are standard of care here though concerns for hyperalgesia on opiates earlier this year and limited pain mgt options >> at some point ?kyphoplasty T spine? back pain bothersome today; ? holding off on meds d/t meeting ? encouraged her to share sx w/ nursing staff (7) Frequent falls: Plan: her R knee on admission was scabbed, swollen though nontender; distal RLE on admission red, warm and slightly swollen. L not so. approx 02/06 she fell down at home, sitting down hard on floor; also saw PCP 02/13 w/ c/o c spine pain and BL arm weakness >>thoracic and multiple lumbar vertebral compression fractures as below (8) Compression fracture of body of thoracic vertebra: Plan: OP chest CT was recommended to further evaluate 02/12 T spine XR given questionable asymmetric disc space widening inferior to vertebral body > at some point suggest full spinal assessment w/ CT and ? eval for kyphoplasty T spine << all as outpatient -no C spine fractures -T spine CF known from OP -stable mild vertebral compression fractures at all lumbar levels per imaging will need pain control for above >>>consider CT of T spine in house as it may affect pain mgt decisions Admission and Anticipated Discharge Date Admission Date: February 24, 2025 Subjective Complains of back pain and need to defecate. Declines pain medication. Does not want to use bedpan on dialysis. Asking to stop treatment 15 minutes early which we will do. No shortness of breath, no nausea vomiting. Fistula arm imaging shows basilic stenosis and steal Review of Systems 2 Review of Systems: All systems reviewed & are unremarkable except as noted in Subjective Physical Exam 2 Constitutional: well developed ( tired), + physical limitations, + frail appearing, well groomed and cooperative; no acute distress Eyes: EOM intact bilaterally ENMT: Mouth: + dry oral mucous membranes Respiratory: normal respiratory effort, + labored breathing (Slight), able to speak in complete sentences and + paradoxical thoraco-abdominal movement A uscultation: + diminished lung sounds Cardiovascular: Rate/Rhythm: regular rate and regular rhythm Heart Sounds: + murmur Extremities: + AV fistula (avf arm purplish today w/ white spot one fingertip) Gastrointestinal (Abdomen): Inspection/Auscultation: normal bowel sounds P ercussion/Palpation: abdomen soft; abdomen nontender Musculoskeletal: Extremities: strength 5/5 throughout Skin: no rashes, warm and dry Psychiatric: Orientation: alert ( but tired), oriented x 3, oriented to person, oriented to place and oriented to time Results & Data Vital Signs (Past 12 Hours) Vital Signs Temp Pulse Pulse Pulse Resp BP BP 03/08/25 12:00 84 87/74 L 03/08/25 11:30 86 85/48 L 03/08/25 11:00 83 88/55 L 03/08/25 10:30 69 93/80 L 03/08/25 10:00 81 93/60 L 03/08/25 09:49 03/08/25 09:30 74 102/48 L 03/08/25 09:27 75 104/82 03/08/25 09:24 36.4 C L 75 03/08/25 07:28 79 03/08/25 07:15 36.4 C L 75 18 112/67 03/08/25 03:35 36.6 C 77 18 108/58 L Pulse Ox O2 Del Method O2 Flow Rate 03/08/25 12:00 03/08/25 11:30 03/08/25 11:00 03/08/25 10:30 03/08/25 10:00 03/08/25 09:49 Room Air 03/08/25 09:30 03/08/25 09:27 03/08/25 09:24 03/08/25 07:28 03/08/25 07:15 98 Room Air 03/08/25 03:35 100 Nasal Cannula 2 Laboratory Results 03/08/25 06:13 05/20/25 06:13 Diagnostic Findings Vascular access duplex as above (5) Aspiration pneumonia Aspiration pneumonia type: unspecified Laterality: unspecified laterality L harrison location: unspecified part of lung Qualified Code(s): J69.0 - Pneumonitis due to inhalation of food and vomit (6) Opiate overdose Encounter type: initial encounter Injury intent: undetermined intent Qualified Code(s): T40.604A - Poisoning by unspecified narcotics, undetermined, initial encounter
--- NOTE | 2025-03-08 16:22 | Hospitalist Progress Note ---
Date of Service March 08, 2025 Assessment & Plan (1) Aspiration pneumonia: (2) Opiate overdose: (3) Hypovolemic shock: (4) Elevated troponin I level: (5) End stage renal disease on dialysis: (6) DM type 2 (diabetes mellitus, type 2): (7) Anemia: Plan 70 y/o female with ESRD on HD, DM2, hx PE, anemia in ESRD, psoriasis, hyperlipidemia, and other history as outlined below who presented to the ED from HD on 02/24 with a syncopal episode. 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 Upon initial presentation, pt was noted to be hypotensive and hypoxic and was given Narcan in the ED as well as a dose of midodrine and 250 cc bolus with improvement of BP, initiation of O2 with improvement of hypoxia. However, after Narcan, pt with significant agitation and tremulousness. Referred for admission for further management. Chest x-ray concerning for potential aspir ation. Escalating need for respiratory support in the ED - supplemental O2 via NC, then escalation to BiPAP. Attending spoke with rubber tile floor layer who evaluated pt in the ED regarding need for additional respiratory support. Patient was then admitted to ICU for pressor requirement and need for persistent BiPAP. #Aspiration pneumonia #Acute Hypoxic respiratory failure #Possible Septic shock, POA Patient presented to the hospital from dialysis clinic with a syncopal episode. She had episode of nausea and vomiting. Given Narcan for possible opioid overdose. Was hypotensive, hypoxic requiring vasopressors and BiPAP respectively in the ED. admitted to ICU Chest x-ray shows pulmonary edema and increased infiltrate on right side Echo shows EF of 55 to 60% with grade 2 diastolic dysfunction. pulm htn CTA chest done on 02/25 did not show PE; consistent with pulmonary edema and pleural effusion bilaterally(more than right side) Patient is off vasopressors since February 27, 2025 and transferred to PCU Status post 5 days of ampicillin Continue on midodrine for low blood pressure. Continue incentive spirometry PT OT evaluation recommended rehab; patient deconditioned significantly from baseline. Case management on board States no more cough, monitor, CXR 03/04 w/ no concern for pna. Pt denies pain and burn while passing urine. Urine has not been collected, Bl Cx NG 48 hours. WBC trending up x last few days, started augmentin 03/06 (? incomplete Rx of aspiration pna early on) --> WBC trending down. Frequent falls Compression fractures of vertebrae Patient with history of frequent falls, T-spine compression fracture and L- spine compression fractures present. Plan for T-spine CT as an outpatient. c/w PT/OT. Right heart failure due to pulmonary hypertension/severe sleep apnea: Diagnosed October 2022 with severe sleep apnea with hypoxia, patient has not followed up to be fitted for the device, patient to follow-up as an outpatient. #Possible opioid overdose - received Narcan in the ED, Patient is on oxycodone 15 mg 3 times daily as needed at home; was recently prescribed on 02/16. Was given Narcan in the ED possibly precipitated withdrawal Plan to reduce dose to 2.5 mg as needed 3 times daily. She would benefit from outpatient referral for addiction medicine. #ESRD on HD/Malfunction of arteriovenous dialysis fistula:-Dialysis as per nephrology, RUE edematous, likely need repeat angioplasty as done earlier this year. Vascular sx evaluating. #Type 2 Diabetes - BSG ACHS - Diabetic diet Hyperlipidemiacontinue simvastatin Mood disorderrcontinue on home meds RLS- continue on ronirole Polypharmacy: requip dose being decreased, pt on 2 ssri, wean down and stop pa roxetine. #Anemia - Chronic related to ESRD - no evidence of active bleeding at present Full code DVT prophylaxis heparin Dispositionsnf, cm assisting. possible dc after vascular eval and recs and possibly after palliative eval ? Friday/today. pt's kamille give a phone call 03/04, updated, answered all his questions. Please note the above document was generated using voice recognition software. It may contain grammatical, syntax or spelling errors. Any formal questions or concerns about the content, text or information contained within the body of this dictation should be directly addressed to the provider for clarification Admission and Anticipated Discharge Date Admission Date: February 24, 2025 Subjective Patient seen and examined at bedside. She still is weak and heavy assist. Denies any particular pain or discomfort. No skin rashes or signs of infection, reports no cough, denies sore throat. WBC trending down once augmentin started. RUE swelling w/ no s/s of cellulitis. No pain, some dusky discoloration of hand. Physical Exam Physical Exam: Constitutional: Awake, alert oriented x 3. On RA. appears ill/weak/frail. Respiratory: Bilateral basal crackles present. Cardiovascular: RRR, no murmur, no edema Vessels: no JVD or carotid bruit Chest: normal inspection of chest Abdomen: normal bowel sounds, soft, nontender, no hepatosplenomegaly Musculoskeletal: no cyanosis or clubbing, extremities motor strength 5/5 Skin: no rashes, warm and dry normal turgor, dusky discoloration of rt hand/non tender Neurologic: PERRL, EOMI, accommodation nl, no face palsy, no dysarthria CN's II- XI intact bilaterally and moves all extremities Results & Data Results & Data Vital Signs (Past 12 Hours) Vital Signs Temp Pulse Pulse Pulse Resp BP BP 03/08/25 15:27 36.4 C L 77 18 117/72 03/08/25 13:05 36.3 C L 82 118/56 L 03/08/25 12:30 88 92/48 L 03/08/25 12:00 84 87/74 L 03/08/25 11:30 86 85/48 L 03/08/25 11:00 83 88/55 L 03/08/25 10:30 69 93/80 L 03/08/25 10:00 81 93/60 L 03/08/25 09:49 03/08/25 09:30 74 102/48 L 03/08/25 09:27 75 104/82 03/08/25 09:24 36.4 C L 75 03/08/25 07:28 79 03/08/25 07:15 36.4 C L 75 18 112/67 Pulse Ox O2 Del Method 03/08/25 15:27 96 Room Air 03/08/25 13:05 03/08/25 12:30 03/08/25 12:00 03/08/25 11:30 03/08/25 11:00 03/08/25 10:30 03/08/25 10:00 03/08/25 09:49 Room Air 03/08/25 09:30 03/08/25 09:27 03/08/25 09:24 03/08/25 07:28 03/08/25 07:15 98 Room Air (1) Aspiration pneumonia Aspiration pneumonia type: unspecified Laterality: unspecified laterality Lung location: unspecified part of lung Qualified Code(s): J69.0 - Pneumonitis due to inhalation of food and vomit (2) Opiate overdose Encounter type: initial encounter Injury intent: undetermined intent Qualified Code(s): T40.604A - Poisoning by unspecified narcotics, undetermined, initial encounter (6) DM type 2 (diabetes mellitus, type 2) Diabetes mellitus termite control service representative insulin use: without termite control service representative use Diabetes mellitus complication status: with kidney complications Diabetes mellitus complication detail: with chronic kidney disease Chronic kidney disease stage: on chronic dialysis Qualified Code(s): E11.22 - Type 2 diabetes mellitus with diabetic chronic kidney disease; N18.6 - End stage renal disease; Z99.2 - Dependence on renal dialysis (7) Anemia Anemia type: unspecified type Qualified Code(s): D64.9 - Anemia, unspecified
--- NOTE | 2025-03-08 18:28 | Communication Note ---
Date of Service: March 08, 2025 A family meeting had been planned for 3pm today but patient's is acutely sick with +n/v and she ahs asked for this to be rescheduled to tomorrow. We have a meeting for 11am tomorrow, barring any unforeseen circumstances. Nursing and nephrology updated. Thank you for allowing us to participate in the ongoing care of this patient. Please page with any additional concerns. Derek Myers DNP Director, Palliative Medicine
--- NOTE | 2025-03-09 08:59 | Nephrology Progress Note ---
Date of Service March 09, 2025 Assessment & Plan (1) End stage renal disease on dialysis: Plan: Concern her hypotension may stem from worsening RH function in setting of plm HTN. hypotension limiting uf on HD recently/prior to admission, though BP improving w/ more midodrine and more UF and consistent /at least some bipap use. Concerned that with untreated sleep apnea right heart failure is emerging complicated by aspiration pneumonitis and chronic pain/opiate overdose. had 3 L UF on both February 25 and , 2.5 L on , 2.5L on 03/03, 2.3 L 03/05, 2.3L on 03/08. Some hypotension yesterday, minimally responsive to Midodrine. She has not been using BiPAP the past several nights because it is uncomfortable. hgb 12.6, potassium 3.9 yesterday -Reaffirms that her preference would be to do in hospital dialysis March 10 and and then go home with hospice/off dialysis. I explained to her this may or may not be feasible but that it would be addressed at the goals of care discussion today and moving forward I am not emphasizing CPAP or BiPAP use anymore because she finds them uncomfortable and is strongly contemplating w/drawing from dialysis Plan routine HD 03/10 w/ midodrine pending goals of care discussion and assuming avf cont to function Care coordinated with Dr. Singh and w/ palliative team re goals of care, dialysis plans, ongoing back pain via TText; we are in agreement. (2) Malfunction of arteriovenous dialysis fistula: Plan: R arm less edematous today but still purplish/ delayed cap refill and wound on fingertip. -vascular duplex shows stenosis/steal; believe arm will still run for a few more txs at least however achieved Qb 300 ml/min 03/03; some prolonged bleeding as well; but Qb 400 mL / min 03/08 for an hour before arterial pressures required lowering she consistently declines AVF intervention; states again would not want TDC if AVF were to stop working (3) Goals of care, counseling/discussion: Plan: palliative on board now; f/u further discussion 03/09 tells me 03/08 she's "ready to move onward and over the rainbow;" does not want to continue dialysis longer term even w/ recent improvement Tells me today that over the rainbow is THEME she is planning for her memorial service; tells me she is writing notes to family particularly young family members to be opened after her (4) Right heart failure due to pulmonary hypertension: Plan: Diagnosed October 2022 with severe sleep apnea with hypoxia; has not followed up to be fitted for device >>defer further trial cpap/bipap while in house given comfort orientation > disease therapies (5) Opiate overdose: Plan: appreciate palliative discussion of dependence v addiction and of complexities surrounding polypharmacy for this pt. responded to narcan in ED; challenging situation w/ chronic pain for this pt and ESRD since opiates are standard of care here though concerns for hyperalgesia on opiates earlier this year and limited pain mgt options >> at some point ?kyphoplasty T spine? Again back pain bothersome today; ? holding off on meds d/t meeting ? encouraged her to share sx w/ nursing staff (6) Frequent falls: Plan: her R knee on admission was scabbed, swollen though nontender; distal RLE on admission red, warm and slightly swollen. L not so. approx 02/06 she fell down at home, sitting down hard on floor; also saw PCP 02/13 w/ c/o c spine pain and BL arm weakness >>thoracic and multiple lumbar vertebral compression fractures as below (7) Compression fracture of body of thoracic vertebra: Plan: OP chest CT was recommended to further evaluate 02/12 T spine XR given questionable asymmetric disc space widening inferior to vertebral body > at some point suggest full spinal assessment w/ CT and ? eval for kyphoplasty T spine << all as outpatient -no C spine fractures -T spine CF known from OP -stable mild vertebral compression fractures at all lumbar levels per imaging will need pain control for above >>>consider CT of T spine in house as it may affect pain mgt decisions Admission and Anticipated Discharge Date Admission Date: February 24, 2025 Subjective No acute interval events clinically. Ongoing significant back pain. RN reports she took minimal p.o. this morning. Patient continues to feel calm and confident in her plans to withdraw from dialysis. No shortness of breath no nausea vomiting. Ongoing poor sleep Review of Systems Review of Systems: All systems reviewed & are unremarkable except as noted in Subjective Physical Exam Constitutional: well developed ( tired), + physical limitations, + frail appearing, well groomed and cooperative; no acute distress Eyes: EOM intact bilaterally ENMT: Mouth: + dry oral mucous membranes Respiratory: normal respiratory effort, + labored breathing (Slight) and able to speak in complete sentences Auscultation: + diminished lung sounds and + crackles Cardiovascular: Rate/Rhythm: regular rate and regular rhythm Heart Sounds: + murmur Extremities: + edema (primarily AVF arm) and + AV fistula (avf arm again purplish today w/ white spot one fingertip) Gastrointestinal (Abdomen): Inspection/Auscultation: normal bowel sounds Percussion/Palpation: abdomen soft; abdomen nontender Musculoskeletal: Extremities: strength 5/5 throughout Skin: no rashes, warm and dry Psychiatric: Orientation: alert ( but tired), oriented x 3, oriented to person, oriented to place and oriented to time Results & Data Vital Signs (Past 12 Hours) Vital Signs Temp Pulse Pulse Resp BP Pulse Ox O2 Del Method 03/09/25 07:39 36.6 C 84 17 101/57 L 100 Room Air 03/09/25 03:53 36.5 C 84 18 100/61 98 Room Air 03/09/25 03:47 109 H 03/08/25 23:38 36.5 C 85 18 104/65 97 Room Air Laboratory Results no new labs (5) Opiate overdose Encounter type: initial encounter Injury intent: undetermined intent Qualified Code(s): T40.604A - Poisoning by unspecified narcotics, undetermined, initial encounter
--- NOTE | 2025-03-09 09:53 | Palliative Family Discussion ---
Date of Service March 09, 2025 Patient Directed Conference Time of Meetinam - 12pm Participants: Lakisha Myers DNP Patient participation: yes Patient Support System: dtr, and EOL Clinical Aide Other Healthcare Provider Participation: Dr Singh/Hospitalist Meeting Location: pt bedside Advanced Directive available: Cara does not want anything extensive/invasive/medically aggressive done; she does not want her AV fistula repaired. The patient's surrogate medical decision maker participated: pt and pt alvin Turk are SDMs A face to face ACP meeting at bedside with pt and family, this meeting was held for JAIMEE VENEGAS. This meeting was necessary for determining the appropriat e course of treatment. Topics of Discussion Topics of Discussion: 1. Cara shares with the group she is tired and no longer wants to continue JORGE. She would like to wrap up HD tomorrow and Friday and dc with home hospice via [facility] on Friday. She has no regrets. She's been having very daniela conversations with her long time nephro / Dr Perez and feels she has been able to come to a decision over time that is best for her and in alignment with her wishes/preferences. She has been working with [employer] Clinical Aide to prepare for her , working on legacy projects. admitted this is hard for him to accept but patient then replied "I am so tired honey. I am so, so tired. I don't want to keep doing this, it isn't a life. I'm not happy anymore. I hurt all over, it's really getting bad and I just can't do it anymore." he relented, accepting her wishes and replied he will do all that he can to support her at home. Alvin Turk in agreement. 2. Family asked how and what they can do to support each other through this. We discussed caregiver burnout, importance of self care and supportive resources including online and inperson support groups. EOL Clinical Aide services will continue in patient home, another source of support for pt and family + hospice supportive care resources. Other Content of Meetin. Opportunity given for participants to speak and ask questions. 2. Participants were assured of attention to patient comfort. 3. Reassurance provided. 4. Support was provided for informed, good-milton decisions. 5. Emotions expressed by family were acknowledged and addressed. 6. Plan of Care: as above. Dying patients fear dyspnea and pain, therefore, symptom control is one cornerstone of pulmonary palliative care. Dyspnea is a prominent symptom of the patient with advanced respiratory disease of any cause: nearly all patients with COPD had dyspnea during the last 3 days of their lives. 7. Dying process: Discussed changes pt may move through in the dying process including but not limited to sleeping more, disorientation when awake, restlessness, diminished senses/inability to respond to stimulus although ability to be aware of them remains intact longer, and changes in body temperatures, skin changes/mottling/cyanosis, respiratory pattern changes, and oral secretions. Family verbalized understanding. The goal is to assure a peaceful . Thank you for allowing us to participate in the ongoing care of this patient. Please page with any additional concerns. Derek Myers DNP Director, Palliative Medicine
--- NOTE | 2025-03-09 15:25 | Hospitalist Progress Note ---
Date of Service March 09, 2025 Assessment & Plan (1) Aspiration pneumonia: (2) Opiate overdose: (3) Hypovolemic shock: (4) Elevated troponin I level: (5) End stage renal disease on dialysis: (6) DM type 2 (diabetes mellitus, type 2): (7) Anemia: Plan 70 y/o female with ESRD on HD, DM2, hx PE, anemia in ESRD, psoriasis, hyperlipidemia, and other history as outlined below who presented to the ED from HD on 02/24 with a syncopal episode. 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 Upon initial presentation, pt was noted to be hypotensive and hypoxic and was given Narcan in the ED as well as a dose of midodrine and 250 cc bolus with improvement of BP, initiation of O2 with improvement of hypoxia. However, after Narcan, pt with significant agitation and tremulousness. Referred for admission for further management. Chest x-ray concerning for potential aspir ation. Escalating need for respiratory support in the ED - supplemental O2 via NC, then escalation to BiPAP. Attending spoke with wool cleaner who evaluated pt in the ED regarding need for additional respiratory support. Patient was then admitted to ICU for pressor requirement and need for persistent BiPAP. #Aspiration pneumonia #Acute Hypoxic respiratory failure #Possible Septic shock -Patient presented to the hospital from dialysis clinic with a syncopal episode. She had episode of nausea and vomiting. Given Narcan for possible opioid overdose. -Was hypotensive, hypoxic requiring vasopressors and BiPAP respectively in the ED. admitted to ICU -Echo shows EF of 55 to 60% with grade 2 diastolic dysfunction. pulm htn -CTA chest done on 02/25 did not show PE; consistent with pulmonary edema and pleural effusion bilaterally(more than right side) -Patient is off vasopressors since February 27, 2025 and transferred to PCU -Status post 5 days of ampicillin Plan: -Continue on midodrine for low blood pressure. -Continue incentive spirometry -going home with hospice services on 03/13/2025, appreciate nephrology assistance with last 2 dialysis sessions -symptom management per palliative care, appreciate recs Frequent falls Compression fractures of vertebrae -Patient with history of frequent falls, T-spine compression fracture and L- spine compression fractures present. 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 #Possible opioid overdose - received Narcan in the ED -will address pain management in setting of hospice services #ESRD on HD/Malfunction of arteriovenous dialysis fistula:-Dialysis as per nephrology, RUE edematous, likely need repeat angioplasty as done earlier this year. Vascular sx evaluating. #Type 2 Diabetes - BSG ACHS - Diabetic diet Hyperlipidemiacontinue simvastatin Mood disorderrcontinue on home meds RLS- continue on ronirole Polypharmacy: requip dose being decreased, pt on 2 ssri, wean down and stop paroxetine. #Anemia - Chronic related to ESRD - no evidence of active bleeding at present I spent a total of 55 minutes in direct patient care, including [id number] time with the patient and/or family, reviewing medical records, ordering and reviewing diagnostic tests, and coordinating care with other healthcare providers. This time includes: history taking, physical examination, medical de cision making, counseling, ECG interpretation, imaging interpretation, lab interpretation, orders, and education, excluding time spent in the performance of separately billed services. Admission and Anticipated Discharge Date Admission Date: February 24, 2025 Subjective Patient seen and examined at bedside. Discussed goals of care with palliative care and molder sweep at bedside, patient would like to transition to hospice after 2 more dialysis sessions. See family meeting note in chart for details. Patient feeling fatigued and worsening lower back pain, along with some weakness. Review of Systems Review of Systems: CONSTITUTIONAL: fatigue, weakness EYES: Patient denies any visual symptoms. EARS, NOSE, AND THROAT: No difficulties with hearing. No symptoms of rhinitis or sore throat. CARDIOVASCULAR: Patient denies chest pains, palpitations, orthopnea and paroxysmal nocturnal dyspnea. RESPIRATORY: No dyspnea on exertion, no wheezing or cough. GI: No nausea, vomiting, diarrhea, constipation, abdominal pain, hematochezia or melena. : No urinary hesitancy or dribbling. No nocturia or urinary frequency. No abnormal urethral discharge. MUSCULOSKELETAL: back pain NEUROLOGIC: No chronic headaches, no seizures. Patient denies numbness, tingling or weakness. PSYCHIATRIC: Patient denies problems with mood disturbance. No problems with anxiety. ENDOCRINE: No excessive urination or excessive thirst. DERMATOLOGIC: Patient denies any rashes or skin changes. Physical Exam Physical Exam: Gen: A&O 3 NAD HEENT: NCAT, EOMI, not icteric. External ears normal. No rhinorrhea. Moist mucous membranes. Neck: Supple, full range of motion, no observable masses, No meningeal sign. Lungs: No Respiratory distress. CV: RRR, no edema. Abdomen: Soft, nondistended, No rebound tenderness. MSK: No joint swelling, no redness. Skin: No rashes, petechiae, lesions. Normal color per patient. Neuro: Normal Gait, Grossly intact. Psych: Appropriate for situation. Results & Data Results & Data Vital Signs (Past 12 Hours) Vital Signs Temp Pulse Pulse Resp BP Pulse Ox O2 Del Method 03/09/25 11:04 75 18 123/64 03/09/25 10:50 Room Air 03/09/25 08:00 109 H 03/09/25 07:39 36.6 C 84 17 101/57 L 100 Room Air 03/09/25 03:53 36.5 C 84 18 100/61 98 Room Air 03/09/25 03:47 109 H Medications Administered Acetaminophen (Acetaminophen 325 Mg Tab) 650 mg PO Q4H PRN PRN Reason: pain/fever Stop: 03/27/25 20:44 Last Admin: 03/03/25 13:52 Dose: 650 mg Documented By: Admin: 03/02/25 20:33 Dose: 650 mg Documented By: Admin: 03/01/25 21:35 Dose: 650 mg Documented By: Admin: 02/27/25 02:46 Dose: 650 mg Documented By: Admin: 02/26/25 15:15 Dose: 650 mg Documented By: Admin: 02/26/25 04:55 Dose: 650 mg Documented By: Admin: 02/25/25 21:14 Dose: 650 mg Documented By: MARKELL Alprazolam (Alprazolam 0.25 Mg Tablet) 0.25 mg PO Q12H PRN PRN Reason: Anxiety Stop: 04/02/25 14:28 Last Admin: 03/06/25 23:06 Dose: 0.25 mg Documented By: Admin: 03/06/25 09:07 Dose: 0.25 mg Documented By: Admin: 03/05/25 22:03 Dose: 0.25 mg Documented By: Admin: 03/05/25 08:18 Dose: 0.25 mg Documented By: Admin: 03/04/25 18:20 Dose: 0.25 mg Documented By: Admin: 03/03/25 15:44 Dose: 0.25 mg Documented By: ENID Amoxicillin/Clavulanate Potassium (Amoxicillin/Clavulanate 500 Mg Tab) 1 tab PO BIDM [facility]; Protocol Stop: 03/11/25 16:59 Last Admin: 03/09/25 08:42 Dose: 1 tab Documented By: Admin: 03/08/25 17:26 Dose: 1 tab Documented By: Admin: 03/08/25 13:55 Dose: 1 tab Documented By: Admin: 03/07/25 18:12 Dose: 1 tab Documented By: Admin: 03/07/25 08:18 Dose: 1 tab Documented By: Admin: 03/06/25 18:14 Dose: 1 tab Documented By: WES Calcium Acetate (Calcium Acetate 667 Mg Cap/Tab) 1,334 mg PO TIDM [facility] Stop: 03/30/25 11:59 Last Admin: 03/09/25 12:33 Dose: Not Given Documented By: Admin: 03/09/25 08:42 Dose: 1,334 mg Documented By: Admin: 03/08/25 17:26 Dose: 1,334 mg Documented By: Admin: 03/08/25 14:09 Dose: Not Given Documented By: Admin: 03/08/25 13:59 Dose: 1,334 mg Documented By: Admin: 03/07/25 18:10 Dose: 1,334 mg Documented By: Admin: 03/07/25 13:40 Dose: Not Given Documented By: Admin: 03/07/25 08:20 Dose: 1,334 mg Documented By: Admin: 03/06/25 18:16 Dose: Not Given Documented By: Admin: 03/06/25 14:42 Dose: Not Given Documented By: Admin: 03/06/25 09:04 Dose: Not Given Documented By: Admin: 03/05/25 16:45 Dose: Not Given Documented By: Admin: 03/05/25 16:11 Dose: Not Given Documented By: Admin: 03/05/25 08:13 Dose: Not Given Documented By: Admin: 03/04/25 16:56 Dose: Not Given Documented By: Admin: 03/04/25 12:34 Dose: Not Given Documented By: Admin: 03/04/25 08:39 Dose: Not Given Documented By: Admin: 03/03/25 16:54 Dose: Not Given Documented By: Admin: 03/03/25 13:53 Dose: Not Given Documented By: Admin: 03/03/25 08:04 Dose: 1,334 mg Documented By: Admin: 03/02/25 17:10 Dose: 1,334 mg Documented By: Admin: 03/02/25 11:39 Dose: 1,334 mg Documented By: Admin: 03/02/25 08:48 Dose: 1,334 mg Documented By: Admin: 03/01/25 16:50 Dose: 1,334 mg Documented By: Admin: 03/01/25 15:33 Dose: 1,334 mg Documented By: Admin: 03/01/25 08:27 Dose: 1,334 mg Documented By: Admin: 02/28/25 16:39 Dose: 1,334 mg Documented By: Admin: 02/28/25 11:44 Dose: 1,334 mg Documented By: KJL Cinacalcet (Cinacalcet Hcl 90 Mg Tab) 180 mg PO QPM STEPHAN Stop: 03/27/25 20:59 Last Admin: 03/08/25 20:09 Dose: 180 mg Documented By: Admin: 03/07/25 20:59 Dose: 180 mg Documented By: Admin: 03/06/25 20:49 Dose: 180 mg Documented By: Admin: 03/05/25 21:07 Dose: 180 mg Documented By: Admin: 03/04/25 21:22 Dose: 180 mg Documented By: Admin: 03/03/25 20:02 Dose: 180 mg Documented By: Admin: 03/02/25 20:33 Dose: 180 mg Documented By: Admin: 03/01/25 20:54 Dose: 180 mg Documented By: Admin: 02/28/25 21:09 Dose: 180 mg Documented By: Admin: 02/27/25 20:46 Dose: 180 mg Documented By: Admin: 02/26/25 21:50 Dose: 180 mg Documented By: Admin: 02/25/25 21:17 Dose: 180 mg Documented By: JT Citalopram Hydrobromide (Citalopram 20 Mg Tab) 10 mg PO DAILY STEPHAN Stop: 03/27/25 10:44 Last Admin: 03/09/25 08:42 Dose: 10 mg Documented By: Admin: 03/08/25 13:58 Dose: 10 mg Documented By: Admin: 03/07/25 08:19 Dose: 10 mg Documented By: Admin: 03/06/25 10:29 Dose: Not Given Documented By: Admin: 03/05/25 08:19 Dose: 10 mg Documented By: Admin: 03/04/25 08:24 Dose: 10 mg Documented By: AAKate Admin: 03/03/25 08:05 Dose: 10 mg Documented By: Admin: 03/02/25 08:48 Dose: 10 mg Documented By: Admin: 03/01/25 08:27 Dose: 10 mg Documented By: Admin: 02/28/25 08:42 Dose: 10 mg Documented By: Admin: 02/27/25 08:57 Dose: 10 mg Documented By: Admin: 02/26/25 08:17 Dose: 10 mg Documented By: Admin: 02/25/25 15:35 Dose: Not Given Documented By: GPF Diclofenac Sodium (Diclofenac Sod 1% Gel 100 Gm Tube) 2 gm EXT Q6H PRN; Protocol PRN Reason: pain Stop: 04/02/25 14:29 Last Admin: 03/05/25 21:11 Dose: 2 gm Documented By: Admin: 03/05/25 02:37 Dose: 2 gm Documented By: Admin: 03/04/25 15:20 Dose: 2 gm Documented By: AAKate Docusate Sodium (Docusate Sodium 100 Mg Cap) 100 mg PO BID STEPHAN Stop: 04/01/25 14:29 Last Admin: 03/09/25 08:43 Dose: 100 mg Documented By: Admin: 03/08/25 20:09 Dose: 100 mg Documented By: Admin: 03/08/25 14:05 Dose: 100 mg Documented By: Admin: 03/07/25 21:03 Dose: 100 mg Documented By: Admin: 03/07/25 08:18 Dose: 100 mg Documented By: Admin: 03/06/25 20:51 Dose: Not Given Documented By: Admin: 03/06/25 10:29 Dose: Not Given Documented By: Admin: 03/05/25 21:08 Dose: Not Given Documented By: Admin: 03/05/25 08:18 Dose: 100 mg Documented By: Admin: 03/04/25 21:24 Dose: Not Given Documented By: Admin: 03/04/25 08:25 Dose: 100 mg Documented By: Admin: 03/03/25 20:04 Dose: 100 mg Documented By: Admin: 03/03/25 08:16 Dose: 100 mg Documented By: Admin: 03/02/25 20:35 Dose: 100 mg Documented By: Admin: 03/02/25 15:32 Dose: 100 mg Documented By: BT Heparin Sodium (Porcine) (Heparin Sod 5,000 Unit/0.5 Ml Vial) 5,000 units SQ Q8 STEPHAN Stop: 03/27/25 13:59 Last Admin: 03/09/25 13:57 Dose: 5,000 units Documented By: Admin: 03/09/25 05:09 Dose: 5,000 units Documented By: Admin: 03/08/25 20:17 Dose: 5,000 units Documented By: Admin: 03/08/25 14:09 Dose: Not Given Documented By: Admin: 03/08/25 06:12 Dose: 5,000 units Documented By: Admin: 03/07/25 21:00 Dose: 5,000 units Documented By: Admin: 03/07/25 13:40 Dose: 5,000 units Documented By: Admin: 03/07/25 06:35 Dose: 5,000 units Documented By: Admin: 03/06/25 20:51 Dose: 5,000 units Documented By: Admin: 03/06/25 15:00 Dose: 5,000 units Documented By: Admin: 03/06/25 06:05 Dose: 5,000 units Documented By: Admin: 03/05/25 21:06 Dose: 5,000 units Documented By: Admin: 03/05/25 16:45 Dose: 5,000 units Documented By: Admin: 03/05/25 06:28 Dose: 5,000 units Documented By: Admin: 03/04/25 21:21 Dose: 5,000 units Documented By: Admin: 03/04/25 14:58 Dose: 5,000 units Documented By: Admin: 03/04/25 06:43 Dose: 5,000 units Documented By: Admin: 03/03/25 20:04 Dose: 5,000 units Documented By: Admin: 03/03/25 13:52 Dose: 5,000 units Documented By: Admin: 03/03/25 05:04 Dose: 5,000 units Documented By: Admin: 03/02/25 21:23 Dose: 5,000 units Documented By: Admin: 03/02/25 13:28 Dose: 5,000 units Documented By: Admin: 03/02/25 05:39 Dose: 5,000 units Documented By: Admin: 03/01/25 21:00 Dose: 5,000 units Documented By: Admin: 03/01/25 15:37 Dose: 5,000 units Documented By: Admin: 03/01/25 06:09 Dose: 5,000 units Documented By: Admin: 02/28/25 21:08 Dose: 5,000 units Documented By: Admin: 02/28/25 14:01 Dose: 5,000 units Documented By: Admin: 02/28/25 05:26 Dose: 5,000 units Documented By: Admin: 02/27/25 20:46 Dose: 5,000 units Documented By: Admin: 02/27/25 15:35 Dose: 5,000 units Documented By: Admin: 02/27/25 05:52 Dose: 5,000 units Documented By: Admin: 02/26/25 21:49 Dose: 5,000 units Documented By: Admin: 02/26/25 15:15 Dose: 5,000 units Documented By: Admin: 02/26/25 05:13 Dose: 5,000 units Documented By: Admin: 02/25/25 21:31 Dose: 5,000 units Documented By: Admin: 02/25/25 15:35 Dose: Not Given Documented By: GPF Promethazine HCl (Phenergan) 6.25 mg in 50.25 mls @ 201 mls/hr IV Q6H PRN PRN Reason: Nausea And Vomiting Stop: 04/02/25 00:12 Last Infusion: 03/03/25 12:34 Dose: Infused Documented By: Admin: 03/03/25 11:49 Dose: 201 mls/hr Documented By: ENID Lactobacillus Acidophilus (Advanced Probiotic 625 Mg Capsule) 1,250 mg PO DAILY [facility] Stop: 04/08/25 08:59 Last Admin: 03/09/25 08:43 Dose: 1,250 mg Documented By: QUIQUE Midodrine (Midodrine Hcl 2.5 Mg Tab) 10 mg PO TID@0800,1200,1700 [facility] Stop: 03/28/25 11:59 Last Admin: 03/09/25 12:33 Dose: 10 mg Documented By: Admin: 03/09/25 08:42 Dose: 10 mg Documented By: Admin: 03/08/25 17:27 Dose: 10 mg Documented By: Admin: 03/08/25 11:23 Dose: 10 mg Documented By: Admin: 03/08/25 08:42 Dose: 10 mg Documented By: Admin: 03/07/25 18:11 Dose: 10 mg Documented By: Admin: 03/07/25 13:40 Dose: 10 mg Documented By: Admin: 03/07/25 08:19 Dose: 10 mg Documented By: Admin: 03/06/25 18:16 Dose: 10 mg Documented By: Admin: 03/06/25 14:42 Dose: Not Given Documented By: Admin: 03/06/25 09:04 Dose: 10 mg Documented By: Admin: 03/05/25 17:30 Dose: 10 mg Documented By: Admin: 03/05/25 11:37 Dose: 10 mg Documented By: Admin: 03/05/25 08:13 Dose: 10 mg Documented By: Admin: 03/04/25 16:56 Dose: 10 mg Documented By: Admin: 03/04/25 12:33 Dose: 10 mg Documented By: Admin: 03/04/25 08:25 Dose: 10 mg Documented By: Admin: 03/03/25 17:43 Dose: 10 mg Documented By: Admin: 03/03/25 12:42 Dose: 10 mg Documented By: Admin: 03/03/25 08:05 Dose: 10 mg Documented By: Admin: 03/02/25 17:10 Dose: 10 mg Documented By: Admin: 03/02/25 11:40 Dose: 10 mg Documented By: Admin: 03/02/25 08:48 Dose: 10 mg Documented By: Admin: 03/01/25 16:50 Dose: 10 mg Documented By: Admin: 03/01/25 12:21 Dose: 10 mg Documented By: Admin: 03/01/25 09:27 Dose: 10 mg Documented By: Admin: 02/28/25 16:39 Dose: 10 mg Documented By: Admin: 02/28/25 11:44 Dose: 10 mg Documented By: Admin: 02/28/25 07:40 Dose: 10 mg Documented By: Admin: 02/27/25 18:13 Dose: 10 mg Documented By: Admin: 02/27/25 12:20 Dose: 10 mg Documented By: Admin: 02/27/25 08:57 Dose: 10 mg Documented By: Admin: 02/26/25 17:11 Dose: 10 mg Documented By: Admin: 02/26/25 11:36 Dose: 10 mg Documented By: NANO Ondansetron HCl (Ondansetron Inj 2 Mg/Ml 2 Ml Vial) 4 mg IV Q4H PRN PRN Reason: Nausea Stop: 04/02/25 21:41 Last Admin: 03/05/25 09:43 Dose: 4 mg Documented By: Admin: 03/05/25 02:35 Dose: 4 mg Documented By: Admin: 03/04/25 08:21 Dose: 4 mg Documented By: Admin: 03/03/25 21:53 Dose: 4 mg Documented By: ELIAS Paroxetine HCl (Paroxetine Hcl 10 Mg Tab) 7.5 mg PO DAILY STEPHAN Stop: 03/11/25 09:01 Last Admin: 03/09/25 08:43 Dose: 7.5 mg Documented By: Admin: 03/08/25 13:57 Dose: 7.5 mg Documented By: Admin: 03/07/25 08:22 Dose: 7.5 mg Documented By: Admin: 03/06/25 09:03 Dose: 7.5 mg Documented By: Admin: 03/05/25 08:21 Dose: 7.5 mg Documented By: EP Polyethylene Glycol (Polyethylene (Miralax) 17 Gm Pack) 17 gm PO DAILY STEPHAN Stop: 04/01/25 14:29 Last Admin: 03/09/25 08:43 Dose: 17 gm Documented By: Admin: 03/08/25 14:08 Dose: 17 gm Documented By: Admin: 03/07/25 08:22 Dose: 17 gm Documented By: Admin: 03/06/25 10:29 Dose: Not Given Documented By: Admin: 03/05/25 08:15 Dose: 17 gm Documented By: Admin: 03/04/25 08:23 Dose: 17 gm Documented By: Admin: 03/03/25 08:19 Dose: 17 gm Documented By: Admin: 03/02/25 15:32 Dose: 17 gm Documented By: LANA Ropinirole HCl (Ropinirole Hcl 1 Mg Tablet) 1 mg PO HS STEPHAN Stop: 04/03/25 20:59 Last Admin: 03/08/25 20:10 Dose: 1 mg Documented By: Admin: 03/07/25 20:59 Dose: 1 mg Documented By: Admin: 03/06/25 20:49 Dose: 1 mg Documented By: Admin: 03/05/25 21:07 Dose: 1 mg Documented By: Admin: 03/04/25 21:22 Dose: 1 mg Documented By: CHRIS Sevelamer Carbonate (Sevelamer Carbonate 800 Mg Tab) 800 mg PO TIDM STEPHAN Stop: 03/27/25 11:59 Last Admin: 03/04/25 12:34 Dose: Not Given Documented By: AAKate Admin: 03/04/25 08:39 Dose: Not Given Documented By: AAKate Admin: 03/03/25 16:54 Dose: Not Given Documented By: Admin: 03/03/25 13:53 Dose: Not Given Documented By: Admin: 03/03/25 08:04 Dose: 800 mg Documented By: Admin: 03/02/25 17:10 Dose: 800 mg Documented By: Admin: 03/02/25 11:40 Dose: 800 mg Documented By: Admin: 03/02/25 08:48 Dose: 800 mg Documented By: Admin: 03/01/25 16:51 Dose: 800 mg Documented By: Admin: 03/01/25 15:33 Dose: 800 mg Documented By: Admin: 03/01/25 08:27 Dose: 800 mg Documented By: Admin: 02/28/25 16:39 Dose: 800 mg Documented By: Admin: 02/28/25 12:12 Dose: 800 mg Documented By: Admin: 02/28/25 07:40 Dose: 800 mg Documented By: Admin: 02/27/25 18:13 Dose: 800 mg Documented By: Admin: 02/27/25 12:20 Dose: 800 mg Documented By: Admin: 02/27/25 08:56 Dose: Not Given Documented By: Admin: 02/26/25 16:44 Dose: Not Given Documented By: Admin: 02/26/25 11:35 Dose: Not Given Documented By: Admin: 02/26/25 08:15 Dose: 800 mg Documented By: Admin: 02/25/25 16:26 Dose: 800 mg Documented By: Admin: 02/25/25 12:16 Dose: Not Given Documented By: GPF Vitamin B Complex/Folic Acid (Nephrocaps) 1 cap PO QAM [facility] Stop: 03/30/25 08:59 Last Admin: 03/09/25 08:43 Dose: 1 cap Documented By: Admin: 03/08/25 13:59 Dose: 1 cap Documented By: Admin: 03/07/25 08:19 Dose: 1 cap Documented By: Admin: 03/06/25 10:29 Dose: Not Given Documented By: Admin: 03/05/25 08:22 Dose: 1 cap Documented By: Admin: 03/04/25 08:25 Dose: 1 cap Documented By: Admin: 03/03/25 08:04 Dose: 1 cap Documented By: Admin: 03/02/25 08:49 Dose: 1 cap Documented By: Admin: 03/01/25 10:24 Dose: 1 cap Documented By: Admin: 02/28/25 08:43 Dose: 1 cap Documented By: KJL (1) Aspiration pneumonia Aspiration pneumonia type: unspecified Laterality: unspecified laterality Lung location: unspecified part of lung Qualified Code(s): J69.0 - Pneumonitis due to inhalation of food and vomit (2) Opiate overdose Encounter type: initial encounter Injury intent: undetermined intent Qualified Code(s): T40.604A - Poisoning by unspecified narcotics, undetermined, initial encounter (6) DM type 2 (diabetes mellitus, type 2) Diabetes mellitus penitentiary insulin use: without penitentiary use Diabetes mellitus complication status: with kidney complications Diabetes mellitus complication detail: with chronic kidney disease Chronic kidney disease stage: on chronic dialysis Qualified Code(s): E11.22 - Type 2 diabetes mellitus with diabetic chronic kidney disease; N18.6 - End stage renal disease; Z99.2 - Dependence on renal dialysis (7) Anemia Anemia type: unspecified type Qualified Code(s): D64.9 - Anemia, unspecified
[2025-03-10 07:33] LABS: Calcium 6.8 mg/dl (8.6-10.3); Creatinine Clr Calc Pharmacy 10.1 ml/min; Magnesium 2.5 mg/dl (1.7-2.4); Potassium 3.6 mmol/L (3.5-5.1)
--- NOTE | 2025-03-10 11:13 | Dialysis Progress Note ---
Date of Service March 10, 2025 Assessment & Plan (1) End stage renal disease on dialysis: Plan: Hypotension stems from worsening RH function in setting of plm HTN. hypotension limiting uf on HD recently/prior to admission, though BP improving w/ more midodrine and more UF and consistent /at least some bipap use. With untreated sleep apnea right heart failure is emerging complicated by aspiration pneumonitis and chronic pain/opiate overdose. had 3 L UF on both February 25 and , 2.5 L on , 2.5L on 03/03, 2.3 L 03/05, 2.3L on 03/08. She has not been using BiPAP the past several nights because it is uncomfortable. mag 2.5; potassium 3.6 today Plan routine HD 03/12 and today w/ midodrine in accordance with goals of care discussion and assuming avf cont to function Care coordinated with Dr. Singh in person re goals of care, dialysis plans; we are in agreement. (2) Goals of care, counseling/discussion: Plan: palliative on board >> see family discussion 03/09 tells me 03/08 she's "ready to move onward and over the rainbow;" does not want to continue dialysis longer term even w/ recent improvement Tells me 03/09 that over the rainbow is THEME she is planning for her memorial service; tells me she is writing notes to family particularly young family members to be opened after her left a handwritten goodbye note thanking her and wishing her a good/meaningful withdrawal process (3) Right heart failure due to pulmonary hypertension: Plan: Diagnosed October 2022 with severe sleep apnea with hypoxia; has not followed up to be fitted for device >>defer further trial cpap/bipap while in house given comfort orientation > disease therapies Admission and Anticipated Discharge Date Admission Date: February 24, 2025 Subjective seen on HD; pt sleeping soundly >>given orientation to hospice next 48-72 hrs and comments of poor sleep to me past several days, not clinically appropriate to wake her. no interval events clinically except family discussion and plans for home w/ hospice on Friday w/ final HD on Fri. Review of Systems 2 Review of Systems: Unobtainable due to reduced consciousness (pt sleeping) Physical Exam 2 Constitutional: well developed ( sleeping), + physical limitations, + frail appearing and well groomed; no acute distress ENMT: Mouth: + dry oral mucous membranes Respiratory: normal respiratory effort and + labored breathing (Slight) A uscultation: + diminished lung sounds Cardiovascular: Rate/Rhythm: regular rate and regular rhythm Heart Sounds: + murmur Extremities: + edema (primarily AVF arm) and + AV fistula Gastrointestinal (Abdomen): Inspection/Auscultation: normal bowel sounds P ercussion/Palpation: abdomen soft; abdomen nontender Musculoskeletal: Extremities: strength 5/5 throughout (active RLS) Skin: no rashes, warm and dry Results & Data Vital Signs (Past 12 Hours) Vital Signs Temp Pulse Pulse Pulse Resp BP BP 03/10/25 10:30 75 99/53 L 03/10/25 10:00 83 111/57 L 03/10/25 09:30 80 129/68 03/10/25 09:13 77 108/46 L 03/10/25 09:03 36.3 C L 78 03/10/25 08:04 36.6 C 85 20 128/60 03/10/25 03:41 36.4 C L 85 20 118/70 Pulse Ox O2 Del Method 03/10/25 10:30 03/10/25 10:00 03/10/25 09:30 03/10/25 09:13 03/10/25 09:03 03/10/25 08:04 96 Room Air 03/10/25 03:41 96 Room Air Laboratory Results 03/08/25 06:13 03/10/25 06:30
--- NOTE | 2025-03-10 14:32 | Hospitalist Progress Note ---
Date of Service March 10, 2025 Assessment & Plan (1) Aspiration pneumonia: (2) Opiate overdose: (3) Hypovolemic shock: (4) Elevated troponin I level: (5) End stage renal disease on dialysis: (6) DM type 2 (diabetes mellitus, type 2): (7) Anemia: Plan 70 y/o female with ESRD on HD, DM2, hx PE, anemia in ESRD, psoriasis, hyperlipidemia, and other history as outlined below who presented to the ED from HD on 02/24 with a syncopal episode. 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 Upon initial presentation, pt was noted to be hypotensive and hypoxic and was given Narcan in the ED as well as a dose of midodrine and 250 cc bolus with improvement of BP, initiation of O2 with improvement of hypoxia. However, after Narcan, pt with significant agitation and tremulousness. Referred for admission for further management. Chest x-ray concerning for potential aspir ation. Escalating need for respiratory support in the ED - supplemental O2 via NC, then escalation to BiPAP. Attending spoke with mergers and acquisitions banker who evaluated pt in the ED regarding need for additional respiratory support. Patient was then admitted to ICU for pressor requirement and need for persistent BiPAP. #Aspiration pneumonia #Acute Hypoxic respiratory failure #Possible Septic shock -Patient presented to the hospital from dialysis clinic with a syncopal episode. She had episode of nausea and vomiting. Given Narcan for possible opioid overdose. -Was hypotensive, hypoxic requiring vasopressors and BiPAP respectively in the ED. admitted to ICU -Echo shows EF of 55 to 60% with grade 2 diastolic dysfunction. pulm htn -CTA chest done on 02/25 did not show PE; consistent with pulmonary edema and pleural effusion bilaterally(more than right side) -Patient is off vasopressors since February 27, 2025 and transferred to PCU -Status post 5 days of ampicillin Plan: -Continue on midodrine for low blood pressure. -Continue incentive spirometry -going home with hospice services on 03/13/2025, appreciate nephrology assistance with last dialysis session on Friday -symptom management per palliative care, appreciate recs -encouraged use of pain medications ttoday Frequent falls Compression fractures of vertebrae -Patient with history of frequent falls, T-spine compression fracture and L- spine compression fractures present. 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 #Possible opioid overdose - received Narcan in the ED -will address pain management in setting of hospice services #ESRD on HD/Malfunction of arteriovenous dialysis fistula:-Dialysis as per nephrology, RUE edematous, likely need repeat angioplasty as done earlier this year. Vascular sx evaluating. #Type 2 Diabetes - BSG ACHS - Diabetic diet Hyperlipidemiacontinue simvastatin Mood disorderrcontinue on home meds RLS- continue on ronirole Polypharmacy: requip dose being decreased, pt on 2 ssri, wean down and stop paroxetine. #Anemia - Chronic related to ESRD - no evidence of active bleeding at present I spent a total of 40 minutes in direct patient care, including [id number] time with the patient and/or family, reviewing medical records, ordering and reviewing diagnostic tests, and coordinating care with other healthcare providers. This time includes: history taking, physical examination, medical decision making, counseling, ECG interpretation, imaging interpretation, lab interpretation, orders, and education, excluding time spent in the performance of separately billed services. Admission and Anticipated Discharge Date Admission Date: February 24, 2025 Subjective Patient seen and examined at bedside. Patient in some pain and exhausted today after dialysis. Review of Systems Review of Systems: CONSTITUTIONAL: fatigue, weakness EYES: Patient denies any visual symptoms. EARS, NOSE, AND THROAT: No difficulties with hearing. No symptoms of rhinitis or sore throat. CARDIOVASCULAR: Patient denies chest pains, palpitations, orthopnea and paroxysmal nocturnal dyspnea. RESPIRATORY: No dyspnea on exertion, no wheezing or cough. GI: No nausea, vomiting, diarrhea, constipation, abdominal pain, hematochezia or melena. : No urinary hesitancy or dribbling. No nocturia or urinary frequency. No abnormal urethral discharge. MUSCULOSKELETAL: back pain NEUROLOGIC: No chronic headaches, no seizures. Patient denies numbness, tingling or weakness. PSYCHIATRIC: Patient denies problems with mood disturbance. No problems with anxiety. ENDOCRINE: No excessive urination or excessive thirst. DERMATOLOGIC: Patient denies any rashes or skin changes. Physical Exam Physical Exam: Gen: A&O 3 NAD HEENT: NCAT, EOMI, not icteric. External ears normal. No rhinorrhea. Moist mucous membranes. Neck: Supple, full range of motion, no observable masses, No meningeal sign. Lungs: No Respiratory distress. CV: RRR, no edema. Abdomen: Soft, nondistended, No rebound tenderness. MSK: No joint swelling, no redness. back pain Skin: noted right hand coldness and lack of sensation 2/2 steal syndrome, similar to prior Neuro: Normal Gait, Grossly intact. Psych: Appropriate for situation. Results & Data Results & Data Vital Signs (Past 12 Hours) Vital Signs Temp Pulse Pulse Pulse Resp BP BP 03/10/25 13:19 36.4 C L 85 18 125/78 03/10/25 12:54 36.5 C 91 H 119/61 03/10/25 12:30 81 81/47 L 03/10/25 12:00 89 111/65 03/10/25 11:30 85 94/55 L 03/10/25 11:00 88 91/64 L 03/10/25 10:30 75 99/53 L 03/10/25 10:00 83 111/57 L 03/10/25 09:30 80 129/68 03/10/25 09:13 77 108/46 L 03/10/25 09:03 36.3 C L 78 03/10/25 08:04 36.6 C 85 20 128/60 03/10/25 08:00 84 03/10/25 03:41 36.4 C L 85 20 118/70 Pulse Ox O2 Del Method 03/10/25 13:19 96 Room Air 03/10/25 12:54 03/10/25 12:30 03/10/25 12:00 03/10/25 11:30 03/10/25 11:00 03/10/25 10:30 03/10/25 10:00 03/10/25 09:30 03/10/25 09:13 03/10/25 09:03 03/10/25 08:04 96 Room Air 03/10/25 08:00 03/10/25 03:41 96 Room Air Laboratory Results -personally reviewed, Mg elevated in setting of ESRD Medications Administered Acetaminophen (Acetaminophen 325 Mg Tab) 650 mg PO Q4H PRN PRN Reason: pain/fever Stop: 03/27/25 20:44 Last Admin: 03/03/25 13:52 Dose: 650 mg Documented By: Admin: 03/02/25 20:33 Dose: 650 mg Documented By: Admin: 03/01/25 21:35 Dose: 650 mg Documented By: Admin: 02/27/25 02:46 Dose: 650 mg Documented By: Admin: 02/26/25 15:15 Dose: 650 mg Documented By: Admin: 02/26/25 04:55 Dose: 650 mg Documented By: Admin: 02/25/25 21:14 Dose: 650 mg Documented By: JT Alprazolam (Alprazolam 0.25 Mg Tablet) 0.25 mg PO Q12H PRN PRN Reason: Anxiety Stop: 04/02/25 14:28 Last Admin: 03/06/25 23:06 Dose: 0.25 mg Documented By: Admin: 03/06/25 09:07 Dose: 0.25 mg Documented By: Admin: 03/05/25 22:03 Dose: 0.25 mg Documented By: Admin: 03/05/25 08:18 Dose: 0.25 mg Documented By: Admin: 03/04/25 18:20 Dose: 0.25 mg Documented By: Admin: 03/03/25 15:44 Dose: 0.25 mg Documented By: ENID Amoxicillin/Clavulanate Potassium (Amoxicillin/Clavulanate 500 Mg Tab) [facility] [place] Protocol Stop: 03/11/25 16:59 Last Admin: 03/10/25 08:28 Dose: 1 tab Documented By: Admin: 03/09/25 17:10 Dose: 1 tab Documented By: Admin: 03/09/25 08:42 Dose: 1 tab Documented By: Admin: 03/08/25 17:26 Dose: 1 tab Documented By: Admin: 03/08/25 13:55 Dose: 1 tab Documented By: Admin: 03/07/25 18:12 Dose: 1 tab Documented By: Admin: 03/07/25 08:18 Dose: 1 tab Documented By: Admin: 03/06/25 18:14 Dose: 1 tab Documented By: WES Calcium Acetate (Calcium Acetate 667 Mg Cap/Tab) 1,334 mg PO TIDM STEPHAN Stop: 03/30/25 11:59 Last Admin: 03/10/25 13:28 Dose: Not Given Documented By: Admin: 03/10/25 08:24 Dose: Not Given Documented By: Admin: 03/09/25 17:04 Dose: Not Given Documented By: Admin: 03/09/25 12:33 Dose: Not Given Documented By: Admin: 03/09/25 08:42 Dose: 1,334 mg Documented By: Admin: 03/08/25 17:26 Dose: 1,334 mg Documented By: Admin: 03/08/25 14:09 Dose: Not Given Documented By: Admin: 03/08/25 13:59 Dose: 1,334 mg Documented By: Admin: 03/07/25 18:10 Dose: 1,334 mg Documented By: Admin: 03/07/25 13:40 Dose: Not Given Documented By: Admin: 03/07/25 08:20 Dose: 1,334 mg Documented By: Admin: 03/06/25 18:16 Dose: Not Given Documented By: Admin: 03/06/25 14:42 Dose: Not Given Documented By: Admin: 03/06/25 09:04 Dose: Not Given Documented By: Admin: 03/05/25 16:45 Dose: Not Given Documented By: Admin: 03/05/25 16:11 Dose: Not Given Documented By: Admin: 03/05/25 08:13 Dose: Not Given Documented By: Admin: 03/04/25 16:56 Dose: Not Given Documented By: Admin: 03/04/25 12:34 Dose: Not Given Documented By: Admin: 03/04/25 08:39 Dose: Not Given Documented By: Admin: 03/03/25 16:54 Dose: Not Given Documented By: Admin: 03/03/25 13:53 Dose: Not Given Documented By: Admin: 03/03/25 08:04 Dose: 1,334 mg Documented By: Admin: 03/02/25 17:10 Dose: 1,334 mg Documented By: Admin: 03/02/25 11:39 Dose: 1,334 mg Documented By: Admin: 03/02/25 08:48 Dose: 1,334 mg Documented By: Admin: 03/01/25 16:50 Dose: 1,334 mg Documented By: Admin: 03/01/25 15:33 Dose: 1,334 mg Documented By: Admin: 03/01/25 08:27 Dose: 1,334 mg Documented By: Admin: 02/28/25 16:39 Dose: 1,334 mg Documented By: Admin: 02/28/25 11:44 Dose: 1,334 mg Documented By: SARAH Cinacalcet (Cinacalcet Hcl 90 Mg Tab) 180 mg PO QPM STEPHAN Stop: 03/27/25 20:59 Last Admin: 03/09/25 21:15 Dose: 180 mg Documented By: Admin: 03/08/25 20:09 Dose: 180 mg Documented By: Admin: 03/07/25 20:59 Dose: 180 mg Documented By: Admin: 03/06/25 20:49 Dose: 180 mg Documented By: Admin: 03/05/25 21:07 Dose: 180 mg Documented By: Admin: 03/04/25 21:22 Dose: 180 mg Documented By: Admin: 03/03/25 20:02 Dose: 180 mg Documented By: Admin: 03/02/25 20:33 Dose: 180 mg Documented By: Admin: 03/01/25 20:54 Dose: 180 mg Documented By: Admin: 02/28/25 21:09 Dose: 180 mg Documented By: Admin: 02/27/25 20:46 Dose: 180 mg Documented By: Admin: 02/26/25 21:50 Dose: 180 mg Documented By: Admin: 02/25/25 21:17 Dose: 180 mg Documented By: JT Citalopram Hydrobromide (Citalopram 20 Mg Tab) 10 mg PO DAILY STEPHAN Stop: 03/27/25 10:44 Last Admin: 03/10/25 08:29 Dose: 10 mg Documented By: Admin: 03/09/25 08:42 Dose: 10 mg Documented By: Admin: 03/08/25 13:58 Dose: 10 mg Documented By: Admin: 03/07/25 08:19 Dose: 10 mg Documented By: Admin: 03/06/25 10:29 Dose: Not Given Documented By: Admin: 03/05/25 08:19 Dose: 10 mg Documented By: Admin: 03/04/25 08:24 Dose: 10 mg Documented By: Admin: 03/03/25 08:05 Dose: 10 mg Documented By: Admin: 03/02/25 08:48 Dose: 10 mg Documented By: Admin: 03/01/25 08:27 Dose: 10 mg Documented By: Admin: 02/28/25 08:42 Dose: 10 mg Documented By: Admin: 02/27/25 08:57 Dose: 10 mg Documented By: Admin: 02/26/25 08:17 Dose: 10 mg Documented By: Admin: 02/25/25 15:35 Dose: Not Given Documented By: GPF Diclofenac Sodium (Diclofenac Sod 1% Gel 100 Gm Tube) 2 gm EXT Q6H PRN; Protocol PRN Reason: pain Stop: 04/02/25 14:29 Last Admin: 03/05/25 21:11 Dose: 2 gm Documented By: Admin: 03/05/25 02:37 Dose: 2 gm Documented By: Admin: 03/04/25 15:20 Dose: 2 gm Documented By: ALIRIO Heparin Sodium (Porcine) (Heparin Sod 5,000 Unit/0.5 Ml Vial) 5,000 units SQ Q8 STEPHAN Stop: 03/27/25 13:59 Last Admin: 03/10/25 05:40 Dose: 5,000 units Documented By: Admin: 03/09/25 21:15 Dose: 5,000 units Documented By: Admin: 03/09/25 13:57 Dose: 5,000 units Documented By: Admin: 03/09/25 05:09 Dose: 5,000 units Documented By: Admin: 03/08/25 20:17 Dose: 5,000 units Documented By: Admin: 03/08/25 14:09 Dose: Not Given Documented By: Admin: 03/08/25 06:12 Dose: 5,000 units Documented By: Admin: 03/07/25 21:00 Dose: 5,000 units Documented By: Admin: 03/07/25 13:40 Dose: 5,000 units Documented By: Admin: 03/07/25 06:35 Dose: 5,000 units Documented By: Admin: 03/06/25 20:51 Dose: 5,000 units Documented By: Admin: 03/06/25 15:00 Dose: 5,000 units Documented By: Admin: 03/06/25 06:05 Dose: 5,000 units Documented By: Admin: 03/05/25 21:06 Dose: 5,000 units Documented By: Admin: 03/05/25 16:45 Dose: 5,000 units Documented By: Admin: 03/05/25 06:28 Dose: 5,000 units Documented By: Admin: 03/04/25 21:21 Dose: 5,000 units Documented By: Admin: 03/04/25 14:58 Dose: 5,000 units Documented By: Admin: 03/04/25 06:43 Dose: 5,000 units Documented By: Admin: 03/03/25 20:04 Dose: 5,000 units Documented By: Admin: 03/03/25 13:52 Dose: 5,000 units Documented By: Admin: 03/03/25 05:04 Dose: 5,000 units Documented By: Admin: 03/02/25 21:23 Dose: 5,000 units Documented By: Admin: 03/02/25 13:28 Dose: 5,000 units Documented By: Admin: 03/02/25 05:39 Dose: 5,000 units Documented By: Admin: 03/01/25 21:00 Dose: 5,000 units Documented By: Admin: 03/01/25 15:37 Dose: 5,000 units Documented By: Admin: 03/01/25 06:09 Dose: 5,000 units Documented By: Admin: 02/28/25 21:08 Dose: 5,000 units Documented By: Admin: 02/28/25 14:01 Dose: 5,000 units Documented By: Admin: 02/28/25 05:26 Dose: 5,000 units Documented By: Admin: 02/27/25 20:46 Dose: 5,000 units Documented By: Admin: 02/27/25 15:35 Dose: 5,000 units Documented By: Admin: 02/27/25 05:52 Dose: 5,000 units Documented By: Admin: 02/26/25 21:49 Dose: 5,000 units Documented By: Admin: 02/26/25 15:15 Dose: 5,000 units Documented By: Admin: 02/26/25 05:13 Dose: 5,000 units Documented By: Admin: 02/25/25 21:31 Dose: 5,000 units Documented By: Admin: 02/25/25 15:35 Dose: Not Given Documented By: GPF Promethazine HCl (Phenergan) 6.25 mg in 50.25 mls @ 201 mls/hr IV Q6H PRN PRN Reason: Nausea And Vomiting Stop: 04/02/25 00:12 Last Infusion: 03/03/25 12:34 Dose: Infused Documented By: Admin: 03/03/25 11:49 Dose: 201 mls/hr Documented By: ENID Midodrine (Midodrine Hcl 2.5 Mg Tab) 10 mg PO TID@0800,1200,1700 STEPHAN Stop: 03/28/25 11:59 Last Admin: 03/10/25 11:11 Dose: 10 mg Documented By: Admin: 03/10/25 08:29 Dose: 10 mg Documented By: Admin: 03/09/25 17:10 Dose: 10 mg Documented By: Admin: 03/09/25 12:33 Dose: 10 mg Documented By: Admin: 03/09/25 08:42 Dose: 10 mg Documented By: Admin: 03/08/25 17:27 Dose: 10 mg Documented By: Admin: 03/08/25 11:23 Dose: 10 mg Documented By: Admin: 03/08/25 08:42 Dose: 10 mg Documented By: Admin: 03/07/25 18:11 Dose: 10 mg Documented By: Admin: 03/07/25 13:40 Dose: 10 mg Documented By: Admin: 03/07/25 08:19 Dose: 10 mg Documented By: Admin: 03/06/25 18:16 Dose: 10 mg Documented By: Admin: 03/06/25 14:42 Dose: Not Given Documented By: Admin: 03/06/25 09:04 Dose: 10 mg Documented By: Admin: 03/05/25 17:30 Dose: 10 mg Documented By: Admin: 03/05/25 11:37 Dose: 10 mg Documented By: Admin: 03/05/25 08:13 Dose: 10 mg Documented By: Admin: 03/04/25 16:56 Dose: 10 mg Documented By: Admin: 03/04/25 12:33 Dose: 10 mg Documented By: Admin: 03/04/25 08:25 Dose: 10 mg Documented By: Admin: 03/03/25 17:43 Dose: 10 mg Documented By: Admin: 03/03/25 12:42 Dose: 10 mg Documented By: Admin: 03/03/25 08:05 Dose: 10 mg Documented By: Admin: 03/02/25 17:10 Dose: 10 mg Documented By: Admin: 03/02/25 11:40 Dose: 10 mg Documented By: Admin: 03/02/25 08:48 Dose: 10 mg Documented By: Admin: 03/01/25 16:50 Dose: 10 mg Documented By: Admin: 03/01/25 12:21 Dose: 10 mg Documented By: Admin: 03/01/25 09:27 Dose: 10 mg Documented By: Admin: 02/28/25 16:39 Dose: 10 mg Documented By: Admin: 02/28/25 11:44 Dose: 10 mg Documented By: Admin: 02/28/25 07:40 Dose: 10 mg Documented By: Admin: 02/27/25 18:13 Dose: 10 mg Documented By: Admin: 02/27/25 12:20 Dose: 10 mg Documented By: Admin: 02/27/25 08:57 Dose: 10 mg Documented By: Admin: 02/26/25 17:11 Dose: 10 mg Documented By: Admin: 02/26/25 11:36 Dose: 10 mg Documented By: NANO Ondansetron HCl (Ondansetron Inj 2 Mg/Ml 2 Ml Vial) 4 mg IV Q4H PRN PRN Reason: Nausea Stop: 04/02/25 21:41 Last Admin: 03/05/25 09:43 Dose: 4 mg Documented By: Admin: 03/05/25 02:35 Dose: 4 mg Documented By: Admin: 03/04/25 08:21 Dose: 4 mg Documented By: Admin: 03/03/25 21:53 Dose: 4 mg Documented By: ELIAS Oxycodone HCl (Oxycodone Hcl Ir 5 Mg Tab (Immediate Release)) 5 mg PO Q6H PRN PRN Reason: Pain Stop: 03/14/25 10:35 Last Admin: 03/09/25 21:16 Dose: 5 mg Documented By: GIO Paroxetine HCl (Paroxetine Hcl 10 Mg Tab) 7.5 mg PO DAILY STEPHAN Stop: 03/11/25 09:01 Last Admin: 03/10/25 08:29 Dose: 7.5 mg Documented By: Admin: 03/09/25 08:43 Dose: 7.5 mg Documented By: Admin: 03/08/25 13:57 Dose: 7.5 mg Documented By: Admin: 03/07/25 08:22 Dose: 7.5 mg Documented By: Admin: 03/06/25 09:03 Dose: 7.5 mg Documented By: Admin: 03/05/25 08:21 Dose: 7.5 mg Documented By: WES Polyethylene Glycol (Polyethylene (Miralax) 17 Gm Pack) 17 gm PO DAILY STEPHAN Stop: 04/01/25 14:29 Last Admin: 03/10/25 08:29 Dose: 17 gm Documented By: Admin: 03/09/25 08:43 Dose: 17 gm Documented By: Admin: 03/08/25 14:08 Dose: 17 gm Documented By: Admin: 03/07/25 08:22 Dose: 17 gm Documented By: Admin: 03/06/25 10:29 Dose: Not Given Documented By: Admin: 03/05/25 08:15 Dose: 17 gm Documented By: Admin: 03/04/25 08:23 Dose: 17 gm Documented By: Admin: 03/03/25 08:19 Dose: 17 gm Documented By: Admin: 03/02/25 15:32 Dose: 17 gm Documented By: LANA Ropinirole HCl (Ropinirole Hcl 1 Mg Tablet) 1 mg PO HS STEPHAN Stop: 04/03/25 20:59 Last Admin: 03/09/25 21:15 Dose: 1 mg Documented By: Admin: 03/08/25 20:10 Dose: 1 mg Documented By: Admin: 03/07/25 20:59 Dose: 1 mg Documented By: Admin: 03/06/25 20:49 Dose: 1 mg Documented By: Admin: 03/05/25 21:07 Dose: 1 mg Documented By: Admin: 03/04/25 21:22 Dose: 1 mg Documented By: CHRIS Sevelamer Carbonate (Sevelamer Carbonate 800 Mg Tab) 800 mg PO TIDM STEPHAN Stop: 03/27/25 11:59 Last Admin: 03/04/25 12:34 Dose: Not Given Documented By: Admin: 03/04/25 08:39 Dose: Not Given Documented By: Admin: 03/03/25 16:54 Dose: Not Given Documented By: Admin: 03/03/25 13:53 Dose: Not Given Documented By: Admin: 03/03/25 08:04 Dose: 800 mg Documented By: Admin: 03/02/25 17:10 Dose: 800 mg Documented By: Admin: 03/02/25 11:40 Dose: 800 mg Documented By: Admin: 03/02/25 08:48 Dose: 800 mg Documented By: Admin: 03/01/25 16:51 Dose: 800 mg Documented By: Admin: 03/01/25 15:33 Dose: 800 mg Documented By: Admin: 03/01/25 08:27 Dose: 800 mg Documented By: Admin: 02/28/25 16:39 Dose: 800 mg Documented By: Admin: 02/28/25 12:12 Dose: 800 mg Documented By: Admin: 02/28/25 07:40 Dose: 800 mg Documented By: Admin: 02/27/25 18:13 Dose: 800 mg Documented By: Admin: 02/27/25 12:20 Dose: 800 mg Documented By: Admin: 02/27/25 08:56 Dose: Not Given Documented By: Admin: 02/26/25 16:44 Dose: Not Given Documented By: Admin: 02/26/25 11:35 Dose: Not Given Documented By: Admin: 02/26/25 08:15 Dose: 800 mg Documented By: Admin: 02/25/25 16:26 Dose: 800 mg Documented By: Admin: 02/25/25 12:16 Dose: Not Given Documented By: GPF (1) Aspiration pneumonia Aspiration pneumonia type: unspecified Laterality: unspecified laterality Lung location: unspecified part of lung Qualified Code(s): J69.0 - Pneumonitis due to inhalation of food and vomit (2) Opiate overdose Encounter type: initial encounter Injury intent: undetermined intent Qualified Code(s): T40.604A - Poisoning by unspecified narcotics, undetermined, initial encounter (6) DM type 2 (diabetes mellitus, type 2) Diabetes mellitus zipper cutter insulin use: without longterm use Diabetes mellitus complication status: with kidney complications Diabetes mellitus complication detail: with chronic kidney disease Chronic kidney disease stage: on chronic dialysis Qualified Code(s): E11.22 - Type 2 diabetes mellitus with diabetic chronic kidney disease; N18.6 - End stage renal disease; Z99.2 - Dependence on renal dialysis (7) Anemia Anemia type: unspecified type Qualified Code(s): D64.9 - Anemia, unspecified
[2025-03-11 07:48] LABS: BUN Creatinine Ratio 9.2 (10-20); Calcium 7.4 mg/dl (8.6-10.3); Creatinine Clr Calc Pharmacy 14.2 ml/min; Magnesium 2.5 mg/dl (1.7-2.4); Potassium 4.4 mmol/L (3.5-5.1)
--- NOTE | 2025-03-11 15:41 | Hospitalist Progress Note ---
Date of Service March 11, 2025 Assessment & Plan (1) Aspiration pneumonia: (2) Opiate overdose: (3) Hypovolemic shock: (4) Elevated troponin I level: (5) End stage renal disease on dialysis: (6) DM type 2 (diabetes mellitus, type 2): (7) Anemia: Plan 70 y/o female with ESRD on HD, DM2, hx PE, anemia in ESRD, psoriasis, hyperlipidemia, and other history as outlined below who presented to the ED from HD on 02/24 with a syncopal episode. 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 Upon initial presentation, pt was noted to be hypotensive and hypoxic and was given Narcan in the ED as well as a dose of midodrine and 250 cc bolus with improvement of BP, initiation of O2 with improvement of hypoxia. However, after Narcan, pt with significant agitation and tremulousness. Referred for admission for further management. Chest x-ray concerning for potential aspir ation. Escalating need for respiratory support in the ED - supplemental O2 via NC, then escalation to BiPAP. Attending spoke with outside sales manager who evaluated pt in the ED regarding need for additional respiratory support. Patient was then admitted to ICU for pressor requirement and need for persistent BiPAP. #Aspiration pneumonia #Acute Hypoxic respiratory failure #Possible Septic shock -Patient presented to the hospital from dialysis clinic with a syncopal episode. She had episode of nausea and vomiting. Given Narcan for possible opioid overdose. -Was hypotensive, hypoxic requiring vasopressors and BiPAP respectively in the ED. admitted to ICU -Echo shows EF of 55 to 60% with grade 2 diastolic dysfunction. pulm htn -CTA chest done on 02/25 did not show PE; consistent with pulmonary edema and pleural effusion bilaterally(more than right side) -Status post 5 days of ampicillin Plan: -Continue on midodrine for low blood pressure. -Continue incentive spirometry -going home with hospice services on 03/13/2025, appreciate nephrology assistance with last dialysis session on Friday -symptom management per palliative care, appreciate recs -encouraged use of pain medications Frequent falls Compression fractures of vertebrae -Patient with history of frequent falls, T-spine compression fracture and L- spine compression fractures present. 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 #Possible opioid overdose - received Narcan in the ED -will address pain management in setting of hospice services #ESRD on HD/Malfunction of arteriovenous dialysis fistula:-Dialysis as per nephrology, RUE edematous, likely need repeat angioplasty as done earlier this year. Vascular sx evaluating. #Type 2 Diabetes - BSG ACHS - Diabetic diet Hyperlipidemiacontinue simvastatin Mood disorderrcontinue on home meds RLS- continue on ronirole Polypharmacy: requip dose being decreased, pt on 2 ssri, wean down and stop paroxetine. #Anemia - Chronic related to ESRD - no evidence of active bleeding at present I spent a total of 40 minutes in direct patient care, including [id number] time with the patient and/or family, reviewing medical records, ordering and reviewing diagnostic tests, and coordinating care with other healthcare providers. This time includes: history taking, physical examination, medical decision making, counseling, ECG interpretation, imaging interpretation, lab interpretation, orders, and education, excluding time spent in the performance of separately billed services. Admission and Anticipated Discharge Date Admission Date: February 24, 2025 Subjective Patient seen and examined at bedside. Patient doing well today. Continues to say she is very tired. Review of Systems Review of Systems: CONSTITUTIONAL: fatigue, weakness EYES: Patient denies any visual symptoms. EARS, NOSE, AND THROAT: No difficulties with hearing. No symptoms of rhinitis or sore throat. CARDIOVASCULAR: Patient denies chest pains, palpitations, orthopnea and paroxysmal nocturnal dyspnea. RESPIRATORY: No dyspnea on exertion, no wheezing or cough. GI: No nausea, vomiting, diarrhea, constipation, abdominal pain, hematochezia or melena. : No urinary hesitancy or dribbling. No nocturia or urinary frequency. No abnormal urethral discharge. MUSCULOSKELETAL: back pain NEUROLOGIC: No chronic headaches, no seizures. Patient denies numbness, tingling or weakness. PSYCHIATRIC: Patient denies problems with mood disturbance. No problems with anxiety. ENDOCRINE: No excessive urination or excessive thirst. DERMATOLOGIC: Patient denies any rashes or skin changes. Physical Exam Physical Exam: Gen: A&O 3 NAD HEENT: NCAT, EOMI, not icteric. External ears normal. No rhinorrhea. Moist mucous membranes. Neck: Supple, full range of motion, no observable masses, No meningeal sign. Lungs: No Respiratory distress. CV: RRR, no edema. Abdomen: Soft, nondistended, No rebound tenderness. MSK: No joint swelling, no redness. back pain Skin: noted right hand coldness and lack of sensation 2/2 steal syndrome, earnestine lar to prior Neuro: Normal Gait, Grossly intact. Psych: Appropriate for situation. Results & Data Results & Data Vital Signs (Past 12 Hours) Vital Signs Temp Pulse Pulse Resp BP Pulse Ox O2 Del Method 03/11/25 15:06 36.5 C 79 20 132/72 99 Room Air 03/11/25 14:27 85 03/11/25 11:22 36.6 C 86 20 120/68 97 Room Air 03/11/25 08:35 82 03/11/25 08:23 36.8 C 81 20 116/60 98 Room Air 03/11/25 04:00 36.5 C 83 18 113/70 96 Room Air Laboratory Results -personally reviewed, elevated Mg in setting of ESRD Medications Administered Acetaminophen (Acetaminophen 325 Mg Tab) 650 mg PO Q4H PRN PRN Reason: pain/fever Stop: 03/27/25 20:44 Last Admin: 03/03/25 13:52 Dose: 650 mg Documented By: Admin: 03/02/25 20:33 Dose: 650 mg Documented By: Admin: 03/01/25 21:35 Dose: 650 mg Documented By: Admin: 02/27/25 02:46 Dose: 650 mg Documented By: Admin: 02/26/25 15:15 Dose: 650 mg Documented By: Admin: 02/26/25 04:55 Dose: 650 mg Documented By: Admin: 02/25/25 21:14 Dose: 650 mg Documented By: MARKELL Alprazolam (Alprazolam 0.25 Mg Tablet) 0.25 mg PO Q12H PRN PRN Reason: Anxiety Stop: 04/02/25 14:28 Last Admin: 03/10/25 21:22 Dose: 0.25 mg Documented By: Admin: 03/06/25 23:06 Dose: 0.25 mg Documented By: Admin: 03/06/25 09:07 Dose: 0.25 mg Documented By: Admin: 03/05/25 22:03 Dose: 0.25 mg Documented By: Admin: 03/05/25 08:18 Dose: 0.25 mg Documented By: Admin: 03/04/25 18:20 Dose: 0.25 mg Documented By: Admin: 03/03/25 15:44 Dose: 0.25 mg Documented By: MICKIER Amoxicillin/Clavulanate Potassium (Amoxicillin/Clavulanate 500 Mg Tab) 1 tab PO BIDM [facility]; Protocol Stop: 03/11/25 16:59 Last Admin: 03/11/25 08:16 Dose: 1 tab Documented By: Admin: 03/10/25 17:12 Dose: 1 tab Documented By: Admin: 03/10/25 08:28 Dose: 1 tab Documented By: Admin: 03/09/25 17:10 Dose: 1 tab Documented By: Admin: 03/09/25 08:42 Dose: 1 tab Documented By: Admin: 03/08/25 17:26 Dose: 1 tab Documented By: Admin: 03/08/25 13:55 Dose: 1 tab Documented By: Admin: 03/07/25 18:12 Dose: 1 tab Documented By: Admin: 03/07/25 08:18 Dose: 1 tab Documented By: Admin: 03/06/25 18:14 Dose: 1 tab Documented By: WES Calcium Acetate (Calcium Acetate 667 Mg Cap/Tab) 1,334 mg PO TIDM [facility] Stop: 03/30/25 11:59 Last Admin: 03/11/25 12:24 Dose: Not Given Documented By: Admin: 03/11/25 08:17 Dose: Not Given Documented By: Admin: 03/10/25 16:11 Dose: Not Given Documented By: Admin: 03/10/25 13:28 Dose: Not Given Documented By: Admin: 03/10/25 08:24 Dose: Not Given Documented By: Admin: 03/09/25 17:04 Dose: Not Given Documented By: Admin: 03/09/25 12:33 Dose: Not Given Documented By: Admin: 03/09/25 08:42 Dose: 1,334 mg Documented By: Admin: 03/08/25 17:26 Dose: 1,334 mg Documented By: Admin: 03/08/25 14:09 Dose: Not Given Documented By: Admin: 03/08/25 13:59 Dose: 1,334 mg Documented By: Admin: 03/07/25 18:10 Dose: 1,334 mg Documented By: Admin: 03/07/25 13:40 Dose: Not Given Documented By: Admin: 03/07/25 08:20 Dose: 1,334 mg Documented By: Admin: 03/06/25 18:16 Dose: Not Given Documented By: Admin: 03/06/25 14:42 Dose: Not Given Documented By: Admin: 03/06/25 09:04 Dose: Not Given Documented By: Admin: 03/05/25 16:45 Dose: Not Given Documented By: Admin: 03/05/25 16:11 Dose: Not Given Documented By: Admin: 03/05/25 08:13 Dose: Not Given Documented By: Admin: 03/04/25 16:56 Dose: Not Given Documented By: Admin: 03/04/25 12:34 Dose: Not Given Documented By: Admin: 03/04/25 08:39 Dose: Not Given Documented By: Admin: 03/03/25 16:54 Dose: Not Given Documented By: Admin: 03/03/25 13:53 Dose: Not Given Documented By: Admin: 03/03/25 08:04 Dose: 1,334 mg Documented By: Admin: 03/02/25 17:10 Dose: 1,334 mg Documented By: Admin: 03/02/25 11:39 Dose: 1,334 mg Documented By: Admin: 03/02/25 08:48 Dose: 1,334 mg Documented By: Admin: 03/01/25 16:50 Dose: 1,334 mg Documented By: Admin: 03/01/25 15:33 Dose: 1,334 mg Documented By: Admin: 03/01/25 08:27 Dose: 1,334 mg Documented By: Admin: 02/28/25 16:39 Dose: 1,334 mg Documented By: Admin: 02/28/25 11:44 Dose: 1,334 mg Documented By: KJL Cinacalcet (Cinacalcet Hcl 90 Mg Tab) 180 mg PO QPM STEPHAN Stop: 03/27/25 20:59 Last Admin: 03/10/25 21:22 Dose: 180 mg Documented By: Admin: 03/09/25 21:15 Dose: 180 mg Documented By: Admin: 03/08/25 20:09 Dose: 180 mg Documented By: Admin: 03/07/25 20:59 Dose: 180 mg Documented By: Admin: 03/06/25 20:49 Dose: 180 mg Documented By: Admin: 03/05/25 21:07 Dose: 180 mg Documented By: Admin: 03/04/25 21:22 Dose: 180 mg Documented By: Admin: 03/03/25 20:02 Dose: 180 mg Documented By: Admin: 03/02/25 20:33 Dose: 180 mg Documented By: Admin: 03/01/25 20:54 Dose: 180 mg Documented By: Admin: 02/28/25 21:09 Dose: 180 mg Documented By: Admin: 02/27/25 20:46 Dose: 180 mg Documented By: Admin: 02/26/25 21:50 Dose: 180 mg Documented By: Admin: 02/25/25 21:17 Dose: 180 mg Documented By: JT Citalopram Hydrobromide (Citalopram 20 Mg Tab) 10 mg PO DAILY STEPHAN Stop: 03/27/25 10:44 Last Admin: 03/11/25 08:17 Dose: 10 mg Documented By: Admin: 03/10/25 08:29 Dose: 10 mg Documented By: Admin: 03/09/25 08:42 Dose: 10 mg Documented By: Admin: 03/08/25 13:58 Dose: 10 mg Documented By: Admin: 03/07/25 08:19 Dose: 10 mg Documented By: Admin: 03/06/25 10:29 Dose: Not Given Documented By: Admin: 03/05/25 08:19 Dose: 10 mg Documented By: Admin: 03/04/25 08:24 Dose: 10 mg Documented By: Admin: 03/03/25 08:05 Dose: 10 mg Documented By: Admin: 03/02/25 08:48 Dose: 10 mg Documented By: Admin: 03/01/25 08:27 Dose: 10 mg Documented By: Admin: 02/28/25 08:42 Dose: 10 mg Documented By: Admin: 02/27/25 08:57 Dose: 10 mg Documented By: Admin: 02/26/25 08:17 Dose: 10 mg Documented By: Admin: 02/25/25 15:35 Dose: Not Given Documented By: GPF Diclofenac Sodium (Diclofenac Sod 1% Gel 100 Gm Tube) 2 gm EXT Q6H PRN; Protocol PRN Reason: pain Stop: 04/02/25 14:29 Last Admin: 03/05/25 21:11 Dose: 2 gm Documented By: Admin: 03/05/25 02:37 Dose: 2 gm Documented By: Admin: 03/04/25 15:20 Dose: 2 gm Documented By: ALIRIO Heparin Sodium (Porcine) (Heparin Sod 5,000 Unit/0.5 Ml Vial) 5,000 units SQ Q8 STEPHAN Stop: 03/27/25 13:59 Last Admin: 03/11/25 14:02 Dose: 5,000 units Documented By: Admin: 03/11/25 06:17 Dose: 5,000 units Documented By: Admin: 03/10/25 21:22 Dose: 5,000 units Documented By: Admin: 03/10/25 14:35 Dose: 5,000 units Documented By: Admin: 03/10/25 05:40 Dose: 5,000 units Documented By: Admin: 03/09/25 21:15 Dose: 5,000 units Documented By: Admin: 03/09/25 13:57 Dose: 5,000 units Documented By: Admin: 03/09/25 05:09 Dose: 5,000 units Documented By: Admin: 03/08/25 20:17 Dose: 5,000 units Documented By: Admin: 03/08/25 14:09 Dose: Not Given Documented By: Admin: 03/08/25 06:12 Dose: 5,000 units Documented By: Admin: 03/07/25 21:00 Dose: 5,000 units Documented By: Admin: 03/07/25 13:40 Dose: 5,000 units Documented By: Admin: 03/07/25 06:35 Dose: 5,000 units Documented By: Admin: 03/06/25 20:51 Dose: 5,000 units Documented By: Admin: 03/06/25 15:00 Dose: 5,000 units Documented By: Admin: 03/06/25 06:05 Dose: 5,000 units Documented By: Admin: 03/05/25 21:06 Dose: 5,000 units Documented By: Admin: 03/05/25 16:45 Dose: 5,000 units Documented By: Admin: 03/05/25 06:28 Dose: 5,000 units Documented By: Admin: 03/04/25 21:21 Dose: 5,000 units Documented By: Admin: 03/04/25 14:58 Dose: 5,000 units Documented By: Admin: 03/04/25 06:43 Dose: 5,000 units Documented By: Admin: 03/03/25 20:04 Dose: 5,000 units Documented By: Admin: 03/03/25 13:52 Dose: 5,000 units Documented By: Admin: 03/03/25 05:04 Dose: 5,000 units Documented By: Admin: 03/02/25 21:23 Dose: 5,000 units Documented By: Admin: 03/02/25 13:28 Dose: 5,000 units Documented By: Admin: 03/02/25 05:39 Dose: 5,000 units Documented By: Admin: 03/01/25 21:00 Dose: 5,000 units Documented By: Admin: 03/01/25 15:37 Dose: 5,000 units Documented By: Admin: 03/01/25 06:09 Dose: 5,000 units Documented By: Admin: 02/28/25 21:08 Dose: 5,000 units Documented By: Admin: 02/28/25 14:01 Dose: 5,000 units Documented By: Admin: 02/28/25 05:26 Dose: 5,000 units Documented By: Admin: 02/27/25 20:46 Dose: 5,000 units Documented By: Admin: 02/27/25 15:35 Dose: 5,000 units Documented By: Admin: 02/27/25 05:52 Dose: 5,000 units Documented By: Admin: 02/26/25 21:49 Dose: 5,000 units Documented By: Admin: 02/26/25 15:15 Dose: 5,000 units Documented By: Admin: 02/26/25 05:13 Dose: 5,000 units Documented By: Admin: 02/25/25 21:31 Dose: 5,000 units Documented By: Admin: 02/25/25 15:35 Dose: Not Given Documented By: GPF Promethazine HCl (Phenergan) 6.25 mg in 50.25 mls @ 201 mls/hr IV Q6H PRN PRN Reason: Nausea And Vomiting Stop: 04/02/25 00:12 Last Infusion: 03/03/25 12:34 Dose: Infused Documented By: Admin: 03/03/25 11:49 Dose: 201 mls/hr Documented By: ENID Midodrine (Midodrine Hcl 2.5 Mg Tab) 10 mg PO TID@0800,1200,1700 STEPHAN Stop: 03/28/25 11:59 Last Admin: 03/11/25 12:24 Dose: 10 mg Documented By: Admin: 03/11/25 08:17 Dose: 10 mg Documented By: Admin: 03/10/25 17:12 Dose: 10 mg Documented By: Admin: 03/10/25 11:11 Dose: 10 mg Documented By: Admin: 03/10/25 08:29 Dose: 10 mg Documented By: Admin: 03/09/25 17:10 Dose: 10 mg Documented By: Admin: 03/09/25 12:33 Dose: 10 mg Documented By: Admin: 03/09/25 08:42 Dose: 10 mg Documented By: Admin: 03/08/25 17:27 Dose: 10 mg Documented By: Admin: 03/08/25 11:23 Dose: 10 mg Documented By: Admin: 03/08/25 08:42 Dose: 10 mg Documented By: Admin: 03/07/25 18:11 Dose: 10 mg Documented By: Admin: 03/07/25 13:40 Dose: 10 mg Documented By: Admin: 03/07/25 08:19 Dose: 10 mg Documented By: Admin: 03/06/25 18:16 Dose: 10 mg Documented By: Admin: 03/06/25 14:42 Dose: Not Given Documented By: Admin: 03/06/25 09:04 Dose: 10 mg Documented By: Admin: 03/05/25 17:30 Dose: 10 mg Documented By: Admin: 03/05/25 11:37 Dose: 10 mg Documented By: Admin: 03/05/25 08:13 Dose: 10 mg Documented By: Admin: 03/04/25 16:56 Dose: 10 mg Documented By: Admin: 03/04/25 12:33 Dose: 10 mg Documented By: Admin: 03/04/25 08:25 Dose: 10 mg Documented By: Admin: 03/03/25 17:43 Dose: 10 mg Documented By: Admin: 03/03/25 12:42 Dose: 10 mg Documented By: Admin: 03/03/25 08:05 Dose: 10 mg Documented By: Admin: 03/02/25 17:10 Dose: 10 mg Documented By: Admin: 03/02/25 11:40 Dose: 10 mg Documented By: Admin: 03/02/25 08:48 Dose: 10 mg Documented By: Admin: 03/01/25 16:50 Dose: 10 mg Documented By: Admin: 03/01/25 12:21 Dose: 10 mg Documented By: Admin: 03/01/25 09:27 Dose: 10 mg Documented By: Admin: 02/28/25 16:39 Dose: 10 mg Documented By: Admin: 02/28/25 11:44 Dose: 10 mg Documented By: Admin: 02/28/25 07:40 Dose: 10 mg Documented By: Admin: 02/27/25 18:13 Dose: 10 mg Documented By: Admin: 02/27/25 12:20 Dose: 10 mg Documented By: Admin: 02/27/25 08:57 Dose: 10 mg Documented By: Admin: 02/26/25 17:11 Dose: 10 mg Documented By: Admin: 02/26/25 11:36 Dose: 10 mg Documented By: NANO Ondansetron HCl (Ondansetron Inj 2 Mg/Ml 2 Ml Vial) 4 mg IV Q4H PRN PRN Reason: Nausea Stop: 04/02/25 21:41 Last Admin: 03/05/25 09:43 Dose: 4 mg Documented By: Admin: 03/05/25 02:35 Dose: 4 mg Documented By: Admin: 03/04/25 08:21 Dose: 4 mg Documented By: Admin: 03/03/25 21:53 Dose: 4 mg Documented By: ELIAS Oxycodone HCl (Oxycodone Hcl Ir 5 Mg Tab (Immediate Release)) 5 mg PO Q6H PRN PRN Reason: Pain Stop: 03/14/25 10:35 Last Admin: 03/11/25 01:55 Dose: 5 mg Documented By: Admin: 03/10/25 14:34 Dose: 5 mg Documented By: Admin: 03/09/25 21:16 Dose: 5 mg Documented By: GIO Polyethylene Glycol (Polyethylene (Miralax) 17 Gm Pack) 17 gm PO DAILY STEPHAN Stop: 04/01/25 14:29 Last Admin: 03/11/25 08:19 Dose: Not Given Documented By: Admin: 03/10/25 08:29 Dose: 17 gm Documented By: Admin: 03/09/25 08:43 Dose: 17 gm Documented By: Admin: 03/08/25 14:08 Dose: 17 gm Documented By: Admin: 03/07/25 08:22 Dose: 17 gm Documented By: Admin: 03/06/25 10:29 Dose: Not Given Documented By: Admin: 03/05/25 08:15 Dose: 17 gm Documented By: Admin: 03/04/25 08:23 Dose: 17 gm Documented By: Admin: 03/03/25 08:19 Dose: 17 gm Documented By: Admin: 03/02/25 15:32 Dose: 17 gm Documented By: LANA Ropinirole HCl (Ropinirole Hcl 1 Mg Tablet) 1 mg PO HS STEPHAN Stop: 04/03/25 20:59 Last Admin: 03/10/25 21:22 Dose: 1 mg Documented By: Admin: 03/09/25 21:15 Dose: 1 mg Documented By: Admin: 03/08/25 20:10 Dose: 1 mg Documented By: Admin: 03/07/25 20:59 Dose: 1 mg Documented By: Admin: 03/06/25 20:49 Dose: 1 mg Documented By: Admin: 03/05/25 21:07 Dose: 1 mg Documented By: Admin: 03/04/25 21:22 Dose: 1 mg Documented By: CHRIS Sevelamer Carbonate (Sevelamer Carbonate 800 Mg Tab) 800 mg PO TIDM STEPHAN Stop: 03/27/25 11:59 Last Admin: 03/04/25 12:34 Dose: Not Given Documented By: Admin: 03/04/25 08:39 Dose: Not Given Documented By: Admin: 03/03/25 16:54 Dose: Not Given Documented By: Admin: 03/03/25 13:53 Dose: Not Given Documented By: Admin: 03/03/25 08:04 Dose: 800 mg Documented By: Admin: 03/02/25 17:10 Dose: 800 mg Documented By: Admin: 03/02/25 11:40 Dose: 800 mg Documented By: Admin: 03/02/25 08:48 Dose: 800 mg Documented By: Admin: 03/01/25 16:51 Dose: 800 mg Documented By: Admin: 03/01/25 15:33 Dose: 800 mg Documented By: Admin: 03/01/25 08:27 Dose: 800 mg Documented By: Admin: 02/28/25 16:39 Dose: 800 mg Documented By: Admin: 02/28/25 12:12 Dose: 800 mg Documented By: Admin: 02/28/25 07:40 Dose: 800 mg Documented By: Admin: 02/27/25 18:13 Dose: 800 mg Documented By: Admin: 02/27/25 12:20 Dose: 800 mg Documented By: Admin: 02/27/25 08:56 Dose: Not Given Documented By: Admin: 02/26/25 16:44 Dose: Not Given Documented By: Admin: 02/26/25 11:35 Dose: Not Given Documented By: Admin: 02/26/25 08:15 Dose: 800 mg Documented By: Admin: 02/25/25 16:26 Dose: 800 mg Documented By: Admin: 02/25/25 12:16 Dose: Not Given Documented By: GPF (1) Aspiration pneumonia Aspiration pneumonia type: unspecified Laterality: unspecified laterality Lung location: unspecified part of lung Qualified Code(s): J69.0 - Pneumonitis due to inhalation of food and vomit (2) Opiate overdose Encounter type: initial encounter Injury intent: undetermined intent Qualified Code(s): T40.604A - Poisoning by unspecified narcotics, undetermined, initial encounter (6) DM type 2 (diabetes mellitus, type 2) Diabetes mellitus alf insulin use: without manager intermediate use Diabetes mellitus complication status: with kidney complications Diabetes mellitus complication detail: with chronic kidney disease Chronic kidney disease stage: on chronic dialysis Qualified Code(s): E11.22 - Type 2 diabetes mellitus with diabetic chronic kidney disease; N18.6 - End stage renal disease; Z99.2 - Dependence on renal dialysis (7) Anemia Anemia type: unspecified type Qualified Code(s): D64.9 - Anemia, unspecified
[2025-03-12 07:30] LABS: BUN Creatinine Ratio 10.5 (10-20); Calcium 6.9 mg/dl (8.6-10.3); Creatinine Clr Calc Pharmacy 9.9 ml/min; Magnesium 2.5 mg/dl (1.7-2.4)
--- NOTE | 2025-03-12 13:13 | Hospitalist Progress Note ---
Date of Service March 12, 2025 Assessment & Plan (1) Aspiration pneumonia: (2) Opiate overdose: (3) Hypovolemic shock: (4) Elevated troponin I level: (5) End stage renal disease on dialysis: (6) DM type 2 (diabetes mellitus, type 2): (7) Anemia: Plan 70 y/o female with ESRD on HD, DM2, hx PE, anemia in ESRD, psoriasis, hyperlipidemia, and other history as outlined below who presented to the ED from HD on 02/24 with a syncopal episode. 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 Upon initial presentation, pt was noted to be hypotensive and hypoxic and was given Narcan in the ED as well as a dose of midodrine and 250 cc bolus with improvement of BP, initiation of O2 with improvement of hypoxia. However, after Narcan, pt with significant agitation and tremulousness. Referred for admission for further management. Chest x-ray concerning for potential aspir ation. Escalating need for respiratory support in the ED - supplemental O2 via NC, then escalation to BiPAP. Attending spoke with excavation laborer who evaluated pt in the ED regarding need for additional respiratory support. Patient was then admitted to ICU for pressor requirement and need for persistent BiPAP. #Aspiration pneumonia #Acute Hypoxic respiratory failure #Possible Septic shock -Patient presented to the hospital from dialysis clinic with a syncopal episode. She had episode of nausea and vomiting. Given Narcan for possible opioid overdose. -Was hypotensive, hypoxic requiring vasopressors and BiPAP respectively in the ED. admitted to ICU -Echo shows EF of 55 to 60% with grade 2 diastolic dysfunction. pulm htn -CTA chest done on 02/25 did not show PE; consistent with pulmonary edema and pleural effusion bilaterally(more than right side) -Status post 5 days of ampicillin Plan: -Continue on midodrine for low blood pressure. -Continue incentive spirometry -going home with hospice services on 03/13/2025, appreciate nephrology assistance with last dialysis session today -stop blood draws today -symptom management per palliative care, appreciate recs -encouraged use of pain medications Frequent falls Compression fractures of vertebrae -Patient with history of frequent falls, T-spine compression fracture and L- spine compression fractures present. 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 #Possible opioid overdose - received Narcan in the ED #ESRD on HD/Malfunction of arteriovenous dialysis fistula:-Dialysis as per nephrology, RUE edematous, likely need repeat angioplasty as done earlier this year. Vascular sx evaluating. #Type 2 Diabetes - BSG ACHS - Diabetic diet Hyperlipidemiacontinue simvastatin Mood disorderrcontinue on home meds RLS- continue on ronirole Polypharmacy: requip dose being decreased, pt on 2 ssri, wean down and stop paroxetine. #Anemia - Chronic related to ESRD - no evidence of active bleeding at present I spent a total of 45 minutes in direct patient care, including [id number] time with the patient and/or family, reviewing medical records, ordering and reviewing diagnostic tests, and coordinating care with other healthcare providers. This time includes: history taking, physical examination, medical decision making, counseling, ECG interpretation, imaging interpretation, lab interpretation, orders, and education, excluding time spent in the performance of separately billed services. Admission and Anticipated Discharge Date Admission Date: February 24, 2025 Subjective Patient seen and examined at bedside. patient doing well today, no concerns. Looking forward to being finished with her last dialysis session today. Review of Systems Review of Systems: CONSTITUTIONAL: fatigue, weakness EYES: Patient denies any visual symptoms. EARS, NOSE, AND THROAT: No difficulties with hearing. No symptoms of rhinitis or sore throat. CARDIOVASCULAR: Patient denies chest pains, palpitations, orthopnea and paroxysmal nocturnal dyspnea. RESPIRATORY: No dyspnea on exertion, no wheezing or cough. GI: No nausea, vomiting, diarrhea, constipation, abdominal pain, hematochezia or melena. : No urinary hesitancy or dribbling. No nocturia or urinary frequency. No abnormal urethral discharge. MUSCULOSKELETAL: back pain NEUROLOGIC: No chronic headaches, no seizures. Patient denies numbness, tingling or weakness. PSYCHIATRIC: Patient denies problems with mood disturbance. No problems with anxiety. ENDOCRINE: No excessive urination or excessive thirst. DERMATOLOGIC: Patient denies any rashes or skin changes. Physical Exam Physical Exam: Gen: A&O 3 NAD HEENT: NCAT, EOMI, not icteric. External ears normal. No rhinorrhea. Moist mucous membranes. Neck: Supple, full range of motion, no observable masses, No meningeal sign. Lungs: No Respiratory distress. CV: RRR, no edema. Abdomen: Soft, nondistended, No rebound tenderness. MSK: No joint swelling, no redness. back pain Skin: noted right hand coldness and lack of sensation 2/2 steal syndrome, similar to prior Neuro: Normal Gait, Grossly intact. Psych: Appropriate for situation. Results & Data Results & Data Vital Signs (Past 12 Hours) Vital Signs Temp Pulse Pulse Pulse Resp BP BP 03/12/25 12:50 36.5 C 81 124/65 03/12/25 12:30 71 89/60 L 03/12/25 12:00 83 157/52 H 03/12/25 11:30 74 95/52 L 03/12/25 11:00 70 123/55 L 03/12/25 10:30 60 109/65 03/12/25 10:00 72 109/51 L 03/12/25 09:31 76 120/50 L 03/12/25 09:25 36.4 C L 79 03/12/25 07:44 36.4 C L 72 16 106/64 03/12/25 07:28 03/12/25 05:29 79 03/12/25 02:48 36.3 C L 79 18 113/69 Pulse Ox O2 Del Method 03/12/25 12:50 03/12/25 12:30 03/12/25 12:00 03/12/25 11:30 03/12/25 11:00 03/12/25 10:30 03/12/25 10:00 03/12/25 09:31 03/12/25 09:25 03/12/25 07:44 96 Room Air 03/12/25 07:28 Room Air 03/12/25 05:29 03/12/25 02:48 97 Room Air Laboratory Results -personally reviewed, elevated Mg consistent with ESRD Medications Administered Acetaminophen (Acetaminophen 325 Mg Tab) 650 mg PO Q4H PRN PRN Reason: pain/fever Stop: 03/27/25 20:44 Last Admin: 03/03/25 13:52 Dose: 650 mg Documented By: Admin: 03/02/25 20:33 Dose: 650 mg Documented By: Admin: 03/01/25 21:35 Dose: 650 mg Documented By: Admin: 02/27/25 02:46 Dose: 650 mg Documented By: Admin: 02/26/25 15:15 Dose: 650 mg Documented By: Admin: 02/26/25 04:55 Dose: 650 mg Documented By: Admin: 02/25/25 21:14 Dose: 650 mg Documented By: MARKELL Alprazolam (Alprazolam 0.25 Mg Tablet) 0.25 mg PO Q12H PRN PRN Reason: Anxiety Stop: 04/02/25 14:28 Last Admin: 03/11/25 21:12 Dose: 0.25 mg Documented By: Admin: 03/10/25 21:22 Dose: 0.25 mg Documented By: Admin: 03/06/25 23:06 Dose: 0.25 mg Documented By: Admin: 03/06/25 09:07 Dose: 0.25 mg Documented By: Admin: 03/05/25 22:03 Dose: 0.25 mg Documented By: Admin: 03/05/25 08:18 Dose: 0.25 mg Documented By: Admin: 03/04/25 18:20 Dose: 0.25 mg Documented By: Admin: 03/03/25 15:44 Dose: 0.25 mg Documented By: MICKIER Calcium Acetate (Calcium Acetate 667 Mg Cap/Tab) 1,334 mg PO TIDM STEPHAN Stop: 03/30/25 11:59 Last Admin: 03/12/25 13:05 Dose: Not Given Documented By: Admin: 03/12/25 08:15 Dose: Not Given Documented By: Admin: 03/12/25 08:08 Dose: Not Given Documented By: Admin: 03/11/25 17:30 Dose: Not Given Documented By: Admin: 03/11/25 12:24 Dose: Not Given Documented By: Admin: 03/11/25 08:17 Dose: Not Given Documented By: Admin: 03/10/25 16:11 Dose: Not Given Documented By: Admin: 03/10/25 13:28 Dose: Not Given Documented By: Admin: 03/10/25 08:24 Dose: Not Given Documented By: Admin: 03/09/25 17:04 Dose: Not Given Documented By: Admin: 03/09/25 12:33 Dose: Not Given Documented By: Admin: 03/09/25 08:42 Dose: 1,334 mg Documented By: Admin: 03/08/25 17:26 Dose: 1,334 mg Documented By: Admin: 03/08/25 14:09 Dose: Not Given Documented By: Admin: 03/08/25 13:59 Dose: 1,334 mg Documented By: Admin: 03/07/25 18:10 Dose: 1,334 mg Documented By: Admin: 03/07/25 13:40 Dose: Not Given Documented By: Admin: 03/07/25 08:20 Dose: 1,334 mg Documented By: Admin: 03/06/25 18:16 Dose: Not Given Documented By: Admin: 03/06/25 14:42 Dose: Not Given Documented By: Admin: 03/06/25 09:04 Dose: Not Given Documented By: Admin: 03/05/25 16:45 Dose: Not Given Documented By: Admin: 03/05/25 16:11 Dose: Not Given Documented By: Admin: 03/05/25 08:13 Dose: Not Given Documented By: Admin: 03/04/25 16:56 Dose: Not Given Documented By: Admin: 03/04/25 12:34 Dose: Not Given Documented By: Admin: 03/04/25 08:39 Dose: Not Given Documented By: Admin: 03/03/25 16:54 Dose: Not Given Documented By: Admin: 03/03/25 13:53 Dose: Not Given Documented By: Admin: 03/03/25 08:04 Dose: 1,334 mg Documented By: Admin: 03/02/25 17:10 Dose: 1,334 mg Documented By: Admin: 03/02/25 11:39 Dose: 1,334 mg Documented By: Admin: 03/02/25 08:48 Dose: 1,334 mg Documented By: Admin: 03/01/25 16:50 Dose: 1,334 mg Documented By: Admin: 03/01/25 15:33 Dose: 1,334 mg Documented By: Admin: 03/01/25 08:27 Dose: 1,334 mg Documented By: Admin: 02/28/25 16:39 Dose: 1,334 mg Documented By: Admin: 02/28/25 11:44 Dose: 1,334 mg Documented By: SARAH Cinacalcet (Cinacalcet Hcl 90 Mg Tab) 180 mg PO QPM STEPHAN Stop: 03/27/25 20:59 Last Admin: 03/11/25 20:31 Dose: 180 mg Documented By: Admin: 03/10/25 21:22 Dose: 180 mg Documented By: Admin: 03/09/25 21:15 Dose: 180 mg Documented By: Admin: 03/08/25 20:09 Dose: 180 mg Documented By: Admin: 03/07/25 20:59 Dose: 180 mg Documented By: Admin: 03/06/25 20:49 Dose: 180 mg Documented By: Admin: 03/05/25 21:07 Dose: 180 mg Documented By: Admin: 03/04/25 21:22 Dose: 180 mg Documented By: Admin: 03/03/25 20:02 Dose: 180 mg Documented By: Admin: 03/02/25 20:33 Dose: 180 mg Documented By: Admin: 03/01/25 20:54 Dose: 180 mg Documented By: Admin: 02/28/25 21:09 Dose: 180 mg Documented By: Admin: 02/27/25 20:46 Dose: 180 mg Documented By: Admin: 02/26/25 21:50 Dose: 180 mg Documented By: Admin: 02/25/25 21:17 Dose: 180 mg Documented By: JT Citalopram Hydrobromide (Citalopram 20 Mg Tab) 10 mg PO DAILY STEPHAN Stop: 03/27/25 10:44 Last Admin: 03/12/25 08:10 Dose: 10 mg Documented By: Admin: 03/11/25 08:17 Dose: 10 mg Documented By: Admin: 03/10/25 08:29 Dose: 10 mg Documented By: Admin: 03/09/25 08:42 Dose: 10 mg Documented By: Admin: 03/08/25 13:58 Dose: 10 mg Documented By: Admin: 03/07/25 08:19 Dose: 10 mg Documented By: Admin: 03/06/25 10:29 Dose: Not Given Documented By: Admin: 03/05/25 08:19 Dose: 10 mg Documented By: Admin: 03/04/25 08:24 Dose: 10 mg Documented By: AAKate Admin: 03/03/25 08:05 Dose: 10 mg Documented By: Admin: 03/02/25 08:48 Dose: 10 mg Documented By: Admin: 03/01/25 08:27 Dose: 10 mg Documented By: Admin: 02/28/25 08:42 Dose: 10 mg Documented By: Admin: 02/27/25 08:57 Dose: 10 mg Documented By: Admin: 02/26/25 08:17 Dose: 10 mg Documented By: Admin: 02/25/25 15:35 Dose: Not Given Documented By: GPF Diclofenac Sodium (Diclofenac Sod 1% Gel 100 Gm Tube) 2 gm EXT Q6H PRN; Protocol PRN Reason: pain Stop: 04/02/25 14:29 Last Admin: 03/05/25 21:11 Dose: 2 gm Documented By: Admin: 03/05/25 02:37 Dose: 2 gm Documented By: Admin: 03/04/25 15:20 Dose: 2 gm Documented By: ALIRIO Heparin Sodium (Porcine) (Heparin Sod 5,000 Unit/0.5 Ml Vial) 5,000 units SQ Q8 STEPHAN Stop: 03/27/25 13:59 Last Admin: 03/12/25 13:04 Dose: Not Given Documented By: Admin: 03/12/25 06:09 Dose: 5,000 units Documented By: Admin: 03/11/25 21:12 Dose: 5,000 units Documented By: Admin: 03/11/25 14:02 Dose: 5,000 units Documented By: Admin: 03/11/25 06:17 Dose: 5,000 units Documented By: Admin: 03/10/25 21:22 Dose: 5,000 units Documented By: Admin: 03/10/25 14:35 Dose: 5,000 units Documented By: Admin: 03/10/25 05:40 Dose: 5,000 units Documented By: Admin: 03/09/25 21:15 Dose: 5,000 units Documented By: Admin: 03/09/25 13:57 Dose: 5,000 units Documented By: KTAmie Admin: 03/09/25 05:09 Dose: 5,000 units Documented By: Admin: 03/08/25 20:17 Dose: 5,000 units Documented By: Admin: 03/08/25 14:09 Dose: Not Given Documented By: Admin: 03/08/25 06:12 Dose: 5,000 units Documented By: Admin: 03/07/25 21:00 Dose: 5,000 units Documented By: Admin: 03/07/25 13:40 Dose: 5,000 units Documented By: Admin: 03/07/25 06:35 Dose: 5,000 units Documented By: Admin: 03/06/25 20:51 Dose: 5,000 units Documented By: Admin: 03/06/25 15:00 Dose: 5,000 units Documented By: Admin: 03/06/25 06:05 Dose: 5,000 units Documented By: Admin: 03/05/25 21:06 Dose: 5,000 units Documented By: Admin: 03/05/25 16:45 Dose: 5,000 units Documented By: Admin: 03/05/25 06:28 Dose: 5,000 units Documented By: Admin: 03/04/25 21:21 Dose: 5,000 units Documented By: Admin: 03/04/25 14:58 Dose: 5,000 units Documented By: Admin: 03/04/25 06:43 Dose: 5,000 units Documented By: Admin: 03/03/25 20:04 Dose: 5,000 units Documented By: Admin: 03/03/25 13:52 Dose: 5,000 units Documented By: Admin: 03/03/25 05:04 Dose: 5,000 units Documented By: Admin: 03/02/25 21:23 Dose: 5,000 units Documented By: Admin: 03/02/25 13:28 Dose: 5,000 units Documented By: Admin: 03/02/25 05:39 Dose: 5,000 units Documented By: Admin: 03/01/25 21:00 Dose: 5,000 units Documented By: Admin: 03/01/25 15:37 Dose: 5,000 units Documented By: Admin: 03/01/25 06:09 Dose: 5,000 units Documented By: Admin: 02/28/25 21:08 Dose: 5,000 units Documented By: Admin: 02/28/25 14:01 Dose: 5,000 units Documented By: Admin: 02/28/25 05:26 Dose: 5,000 units Documented By: Admin: 02/27/25 20:46 Dose: 5,000 units Documented By: Admin: 02/27/25 15:35 Dose: 5,000 units Documented By: Admin: 02/27/25 05:52 Dose: 5,000 units Documented By: Admin: 02/26/25 21:49 Dose: 5,000 units Documented By: Admin: 02/26/25 15:15 Dose: 5,000 units Documented By: Admin: 02/26/25 05:13 Dose: 5,000 units Documented By: Admin: 02/25/25 21:31 Dose: 5,000 units Documented By: Admin: 02/25/25 15:35 Dose: Not Given Documented By: GPF Promethazine HCl (Phenergan) 6.25 mg in 50.25 mls @ 201 mls/hr IV Q6H PRN PRN Reason: Nausea And Vomiting Stop: 04/02/25 00:12 Last Infusion: 03/03/25 12:34 Dose: Infused Documented By: Admin: 03/03/25 11:49 Dose: 201 mls/hr Documented By: ENID Midodrine (Midodrine Hcl 2.5 Mg Tab) 10 mg PO TID@0800,1200,1700 STEPHAN Stop: 03/28/25 11:59 Last Admin: 03/12/25 11:35 Dose: 10 mg Documented By: Admin: 03/12/25 08:10 Dose: 10 mg Documented By: Admin: 03/11/25 17:30 Dose: 10 mg Documented By: Admin: 03/11/25 12:24 Dose: 10 mg Documented By: Admin: 03/11/25 08:17 Dose: 10 mg Documented By: Admin: 03/10/25 17:12 Dose: 10 mg Documented By: Admin: 03/10/25 11:11 Dose: 10 mg Documented By: Admin: 03/10/25 08:29 Dose: 10 mg Documented By: Admin: 03/09/25 17:10 Dose: 10 mg Documented By: Admin: 03/09/25 12:33 Dose: 10 mg Documented By: Admin: 03/09/25 08:42 Dose: 10 mg Documented By: Admin: 03/08/25 17:27 Dose: 10 mg Documented By: Admin: 03/08/25 11:23 Dose: 10 mg Documented By: Admin: 03/08/25 08:42 Dose: 10 mg Documented By: Admin: 03/07/25 18:11 Dose: 10 mg Documented By: Admin: 03/07/25 13:40 Dose: 10 mg Documented By: Admin: 03/07/25 08:19 Dose: 10 mg Documented By: Admin: 03/06/25 18:16 Dose: 10 mg Documented By: Admin: 03/06/25 14:42 Dose: Not Given Documented By: Admin: 03/06/25 09:04 Dose: 10 mg Documented By: Admin: 03/05/25 17:30 Dose: 10 mg Documented By: Admin: 03/05/25 11:37 Dose: 10 mg Documented By: Admin: 03/05/25 08:13 Dose: 10 mg Documented By: Admin: 03/04/25 16:56 Dose: 10 mg Documented By: Admin: 03/04/25 12:33 Dose: 10 mg Documented By: Admin: 03/04/25 08:25 Dose: 10 mg Documented By: Admin: 03/03/25 17:43 Dose: 10 mg Documented By: Admin: 03/03/25 12:42 Dose: 10 mg Documented By: Admin: 03/03/25 08:05 Dose: 10 mg Documented By: Admin: 03/02/25 17:10 Dose: 10 mg Documented By: Admin: 03/02/25 11:40 Dose: 10 mg Documented By: Admin: 03/02/25 08:48 Dose: 10 mg Documented By: Admin: 03/01/25 16:50 Dose: 10 mg Documented By: Admin: 03/01/25 12:21 Dose: 10 mg Documented By: Admin: 03/01/25 09:27 Dose: 10 mg Documented By: Admin: 02/28/25 16:39 Dose: 10 mg Documented By: Admin: 02/28/25 11:44 Dose: 10 mg Documented By: Admin: 02/28/25 07:40 Dose: 10 mg Documented By: Admin: 02/27/25 18:13 Dose: 10 mg Documented By: Admin: 02/27/25 12:20 Dose: 10 mg Documented By: Admin: 02/27/25 08:57 Dose: 10 mg Documented By: Admin: 02/26/25 17:11 Dose: 10 mg Documented By: Admin: 02/26/25 11:36 Dose: 10 mg Documented By: NANO Ondansetron HCl (Ondansetron Inj 2 Mg/Ml 2 Ml Vial) 4 mg IV Q4H PRN PRN Reason: Nausea Stop: 04/02/25 21:41 Last Admin: 03/05/25 09:43 Dose: 4 mg Documented By: Admin: 03/05/25 02:35 Dose: 4 mg Documented By: Admin: 03/04/25 08:21 Dose: 4 mg Documented By: AAKtae Admin: 03/03/25 21:53 Dose: 4 mg Documented By: ELIAS Oxycodone HCl (Oxycodone Hcl Ir 5 Mg Tab (Immediate Release)) 5 mg PO Q6H PRN PRN Reason: Pain Stop: 03/14/25 10:35 Last Admin: 03/11/25 21:15 Dose: 5 mg Documented By: Admin: 03/11/25 01:55 Dose: 5 mg Documented By: Admin: 03/10/25 14:34 Dose: 5 mg Documented By: Admin: 03/09/25 21:16 Dose: 5 mg Documented By: GIO Paroxetine HCl (Paroxetine Hcl 10 Mg Tab) 5 mg PO DAILY STEPHAN Stop: 03/18/25 09:01 Last Admin: 03/12/25 08:09 Dose: 5 mg Documented By: MATHIEU Polyethylene Glycol (Polyethylene (Miralax) 17 Gm Pack) 17 gm PO DAILY STEPHAN Stop: 04/01/25 14:29 Last Admin: 03/12/25 08:10 Dose: Not Given Documented By: Admin: 03/11/25 08:19 Dose: Not Given Documented By: Admin: 03/10/25 08:29 Dose: 17 gm Documented By: Admin: 03/09/25 08:43 Dose: 17 gm Documented By: Admin: 03/08/25 14:08 Dose: 17 gm Documented By: Admin: 03/07/25 08:22 Dose: 17 gm Documented By: Admin: 03/06/25 10:29 Dose: Not Given Documented By: Admin: 03/05/25 08:15 Dose: 17 gm Documented By: Admin: 03/04/25 08:23 Dose: 17 gm Documented By: Admin: 03/03/25 08:19 Dose: 17 gm Documented By: Admin: 03/02/25 15:32 Dose: 17 gm Documented By: LANA Ropinirole HCl (Ropinirole Hcl 1 Mg Tablet) 1 mg PO HS STEPHAN Stop: 04/03/25 20:59 Last Admin: 03/11/25 20:31 Dose: 1 mg Documented By: Admin: 03/10/25 21:22 Dose: 1 mg Documented By: Admin: 03/09/25 21:15 Dose: 1 mg Documented By: Admin: 03/08/25 20:10 Dose: 1 mg Documented By: Admin: 03/07/25 20:59 Dose: 1 mg Documented By: Admin: 03/06/25 20:49 Dose: 1 mg Documented By: Admin: 03/05/25 21:07 Dose: 1 mg Documented By: Admin: 03/04/25 21:22 Dose: 1 mg Documented By: CHRIS Sevelamer Carbonate (Sevelamer Carbonate 800 Mg Tab) 800 mg PO TIDM STEPHAN Stop: 03/27/25 11:59 Last Admin: 03/04/25 12:34 Dose: Not Given Documented By: AAKate Admin: 03/04/25 08:39 Dose: Not Given Documented By: Admin: 03/03/25 16:54 Dose: Not Given Documented By: Admin: 03/03/25 13:53 Dose: Not Given Documented By: Admin: 03/03/25 08:04 Dose: 800 mg Documented By: Admin: 03/02/25 17:10 Dose: 800 mg Documented By: Admin: 03/02/25 11:40 Dose: 800 mg Documented By: Admin: 03/02/25 08:48 Dose: 800 mg Documented By: Admin: 03/01/25 16:51 Dose: 800 mg Documented By: Admin: 03/01/25 15:33 Dose: 800 mg Documented By: Admin: 03/01/25 08:27 Dose: 800 mg Documented By: Admin: 02/28/25 16:39 Dose: 800 mg Documented By: Admin: 02/28/25 12:12 Dose: 800 mg Documented By: Admin: 02/28/25 07:40 Dose: 800 mg Documented By: Admin: 02/27/25 18:13 Dose: 800 mg Documented By: Admin: 02/27/25 12:20 Dose: 800 mg Documented By: Admin: 02/27/25 08:56 Dose: Not Given Documented By: Admin: 02/26/25 16:44 Dose: Not Given Documented By: Admin: 02/26/25 11:35 Dose: Not Given Documented By: Admin: 02/26/25 08:15 Dose: 800 mg Documented By: Admin: 02/25/25 16:26 Dose: 800 mg Documented By: Admin: 02/25/25 12:16 Dose: Not Given Documented By: GPF (1) Aspiration pneumonia Aspiration pneumonia type: unspecified Laterality: unspecified laterality Lung location: unspecified part of lung Qualified Code(s): J69.0 - Pneumonitis due to inhalation of food and vomit (2) Opiate overdose Encounter type: initial encounter Injury intent: undetermined intent Qualified Code(s): T40.604A - Poisoning by unspecified narcotics, undetermined, initial encounter (6) DM type 2 (diabetes mellitus, type 2) Diabetes mellitus group home insulin use: without group home use Diabetes mellitus complication status: with kidney complications Diabetes mellitus complication detail: with chronic kidney disease Chronic kidney disease stage: on chronic dialysis Qualified Code(s): E11.22 - Type 2 diabetes mellitus with diabetic chronic kidney disease; N18.6 - End stage renal disease; Z99.2 - Dependence on renal dialysis (7) Anemia Anemia type: unspecified type Qualified Code(s): D64.9 - Anemia, unspecified
--- NOTE | 2025-03-12 13:30 | Nephrology Progress Note ---
Date of Service March 12, 2025 Assessment & Plan (1) End stage renal disease on dialysis: Plan: Patient is tolerating dialysis well today. She has chosen to stop dialysis after today's treatment. She will be going home with hospice. (2) Goals of care, counseling/discussion: Plan: Patient will be comfort measures after today's dialysis session and no more dialysis per patient. Admission and Anticipated Discharge Date Admission Date: February 24, 2025 Subjective seen for ESRD. Patient was seen and examined while on dialysis. No shortness of breath. Review of Systems 2 Review of Systems: All other systems were reviewed and negative except as noted in HPI Physical Exam 2 Physical Exam: General exam: Appears comfortable, no acute distress HEENT: Pupils are equal and reactive to light Neck: No JVD, neck is supple trachea is midline Respiratory system: Clear breath sounds bilaterally. Gastrointestinal: Abdomen is soft, non distended, non tender, bowel sounds are present CVS: Regular rate and rhythm. No murmurs, rubs or gallops Musculoskeletal: No joint or muscle tenderness Extremities: Non tender, no edema, peripheral pulses are present Neuro: Oriented, no tremors, no focal neurological deficits Skin: No rashes Results & Data Vital Signs (Past 12 Hours) Vital Signs Temp Pulse Pulse Pulse Resp BP BP 03/12/25 12:50 36.5 C 81 124/65 03/12/25 12:30 71 89/60 L 03/12/25 12:00 83 157/52 H 03/12/25 11:30 74 95/52 L 03/12/25 11:00 70 123/55 L 03/12/25 10:30 60 109/65 03/12/25 10:00 72 109/51 L 03/12/25 09:31 76 120/50 L 03/12/25 09:25 36.4 C L 79 03/12/25 07:44 36.4 C L 72 16 106/64 03/12/25 07:28 03/12/25 05:29 79 03/12/25 02:48 36.3 C L 79 18 113/69 Pulse Ox O2 Del Method 03/12/25 12:50 03/12/25 12:30 03/12/25 12:00 03/12/25 11:30 03/12/25 11:00 03/12/25 10:30 03/12/25 10:00 03/12/25 09:31 03/12/25 09:25 03/12/25 07:44 96 Room Air 03/12/25 07:28 Room Air 03/12/25 05:29 03/12/25 02:48 97 Room Air Laboratory Results 03/12/25 06:57
[2025-03-13 03:34] VITALS: TEMP 97.7
[2025-03-13 08:26] LABS: Calcium 7.6 mg/dl (8.6-10.3); Magnesium 2.5 mg/dl (1.7-2.4); Potassium 4.1 mmol/L (3.5-5.1)
[2025-03-13 08:31] LABS: BUN Creatinine Ratio 10.8 (10-20)
[2025-03-13 08:52] VITALS: BP 110/64; PULSE 86; RESP 16; O2SAT 100
--- NOTE | 2025-03-13 13:38 | Discharge Summary ---
Discharge Summary Date of Service March 13, 2025 Principal Dx & Hospital Course #1 = Principal Diagnosis (1) Aspiration pneumonia: (2) Opiate overdose: (3) Hypovolemic shock: (4) Elevated troponin I level: (5) End stage renal disease on dialysis: (6) DM type 2 (diabetes mellitus, type 2): (7) Anemia: Plan 70 y/o female with ESRD on HD, DM2, hx PE, anemia in ESRD, psoriasis, hyperlipidemia, and other history as outlined below who presented to the ED from HD on 02/24 with a syncopal episode. 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 Upon initial presentation, pt was noted to be hypotensive and hypoxic and was given Narcan in the ED as well as a dose of midodrine and 250 cc bolus with improvement of BP, initiation of O2 with improvement of hypoxia. However, after Narcan, pt with significant agitation and tremulousness. Referred for admission for further management. Chest x-ray concerning for potential aspiration. Escalating need for respiratory support in the ED - supplemental O2 via NC, then escalation to BiPAP. Attending spoke with returned goods sorter who evaluated pt in the ED regarding need for additional respiratory support. Patient was then admitted to ICU for pressor requirement and need for persistent BiPAP. #Aspiration pneumonia #Acute Hypoxic respiratory failure #Possible Septic shock -Patient presented to the hospital from dialysis clinic with a syncopal episode. She had episode of nausea and vomiting. Given Narcan for possible opioid overdose. -Was hypotensive, hypoxic requiring vasopressors and BiPAP respectively in the ED. admitted to ICU -Echo shows EF of 55 to 60% with grade 2 diastolic dysfunction. pulm htn -CTA chest done on 02/25 did not show PE; consistent with pulmonary edema and pleural effusion bilaterally(more than right side) -Status post 5 days of ampicillin Plan: -Continue on midodrine for low blood pressure. -Continue incentive spirometry -going home with hospice services on 03/13/2025, appreciate nephrology assistance with last dialysis session today -stop blood draws today -symptom management per palliative care, appreciate recs -encouraged use of pain medications Frequent falls Compression fractures of vertebrae -Patient with history of frequent falls, T-spine compression fracture and L- spine compression fractures present. 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 #Possible opioid overdose - received Narcan in the ED #ESRD on HD/Malfunction of arteriovenous dialysis fistula:-Dialysis as per nephrology, RUE edematous, likely need repeat angioplasty as done earlier this year. Vascular sx evaluating. #Type 2 Diabetes - BSG ACHS - Diabetic diet Hyperlipidemiacontinue simvastatin Mood disorderrcontinue on home meds RLS- continue on ronirole Polypharmacy: requip dose being decreased, pt on 2 ssri, wean down and stop paroxetine. #Anemia - Chronic related to ESRD - no evidence of active bleeding at present I spent a total of 45 minutes in direct patient care, including [id number] time with the patient and/or family, reviewing medical records, ordering and reviewing diagnostic tests, and coordinating care with other healthcare providers. This time includes: history taking, physical examination, medical decision making, counseling, ECG interpretation, imaging interpretation, lab interpretation, orders, and education, excluding time spent in the performance of separately billed services. Notes For Next Care Provider 70 y/o female with ESRD on HD, DM2, hx PE, anemia in ESRD, psoriasis, hyperlipidemia, and other history as outlined below who presented to the ED from HD on 02/24 with a syncopal episode. dorys initial presentation, pt was noted to be hypotensive and hypoxic and was given Narcan in the ED as well as a dose of midodrine and 250 cc bolus with improvement of BP, initiation of O2 with improvement of hypoxia. However, after Narcan, pt with significant agitation and tremulousness. Referred for admission for further management. Chest x-ray concerning for potential aspiration. Escalating need for respiratory support in the ED - supplemental O2 via NC, then escalation to BiPAP. Attending spoke with returned goods sorter who evaluated pt in the ED regarding need for additional respiratory support. Patient was then admitted to ICU for pressor requirement and need for persistent BiPAP. Deescalate to floor with improvement. GOC discussion on floor with palliative care and nephrology, patient chose to stop dialysis. Signed on with hospice. Patient discharged home with hospice. Medication Changes From Visit -see below Admission HPI Per Admitting Provider This is a 70 y/o female with ESRD on HD, DM2, hx PE, anemia in ESRD, psoriasis, hyperlipidemia, and other history as outlined below who presented to the ED from HD today with a syncopal episode. Early this morning, pt reports an episode of vomiting. [place] lightheaded afterwards. Took her usual dose of oxycodone 15 mg and a dose of Ativan 0.5 mg this morning then went to dialysis as scheduled. While at dialysis, she had a syncopal episode and was sent to the ED for evaluation. In the ED, she was hypotensive and hypoxic with pinpoint pupils so she was given a dose of Narcan. Since receiving the Narcan, she has been restless, irritable, and shaky. She notes increased shortness of breath this morning but denies recent illness over the last few days. Her outpatient records were reviewed including PCP note from 02/16. She has had worsening anxiety over the last few months so her citalopram is being tapered and changed to paroxetine. She has had worsening of chronic pain in both neck and back so she was restarted on oxycodone at this visit (had been on Butrans patch, meloxicam, and celecoxib. Pt reports that she has been taking the oxycodone 15 mg TID as prescribed and denies taking any extra doses. ECHO May 2024 - mildly increased (concentric) LV wall thickness, normal LV wall motion, LVEF 65-69%, moderate AoV stenosis, severe mitral annular calcification, moderate mitral stenosis, moderate mitral regurgitation (new), mild flow acceleration at the proximal descending aorta of 2 m/sec is unchanged from prior (2022). Discharge Exam Gen: A&O 3 NAD HEENT: NCAT, EOMI, not icteric. External ears normal. No rhinorrhea. Moist mucous membranes. Neck: Supple, full range of motion, no observable masses, No meningeal sign. Lungs: No Respiratory distress. CV: RRR, no edema. Abdomen: Soft, nondistended, No rebound tenderness. MSK: No joint swelling, no redness. back pain Skin: noted right hand coldness and lack of sensation 2/2 steal syndrome, similar to prior Neuro: Normal Gait, Grossly intact. Psych: Appropriate for situation. Updated Medication List Medication Instructions Recorded Confirmed Type gabapentin 100 mg capsule 100 mg PO DIRECTED 12/31/18 02/24/25 History ropinirole 2 mg tablet 2 mg PO HS 11/15/23 02/24/25 History cholecalciferol (vitamin D3) 125 125 mcg PO UD 09/23/24 02/24/25 History mcg (5,000 unit) tablet (Vitamin D3) cinacalcet 90 mg tablet (Sensipar) 180 mg PO QPM 09/23/24 02/24/25 History lanthanum 750 mg chewable tablet 750 mg PO TIDWMEAL 10/30/24 02/24/25 History (Fosrenol) citalopram 10 mg tablet 10 mg PO DAILY 02/24/25 02/24/25 History lorazepam 0.5 mg tablet 0.5 mg PO HS PRN Anxiety 02/24/25 02/24/25 History oxycodone 15 mg tablet 15 mg PO Q8H PRN Pain, Severe 02/24/25 02/24/25 History paroxetine HCl 10 mg tablet 5 mg (1/2 x 10 mg) PO DAILY #14 03/13/25 Rx tabs Hospital Stay Data Consultations 02/24/25 08:47 ED Decision to Admit Stat 02/24/25 10:39 Consult Beveling And Edging Machine Operator Routine 02/24/25 11:53 Consult Nephrology Routine 03/01/25 14:33 Consult Palliative Care Routine 03/07/25 07:30 Consult Vascular Surgery Routine Diagnostic Imagining Performed 02/24/25 11:49 CT head/brain wo con Urgent 02/25/25 08:40 CT for pulmonary embolism PE [CT angio chest PE protocol] Urgent 02/25/25 09:24 US point of care ultrasound Urgent 03/03/25 03:09 CT Abd and Pelvis [CT abd pelvis wo con] Stat 03/07/25 10:24 US arterial duplex UE RT Routine US hemodialysis fistula Routine Pending Results Patient Have Any Pending Studies at Discharge: No Discharge Instructions Given to Patient (Per Discharging Provider) 1. Please follow up with hospice services. Total Time Total Time Spent Total Time Spent (In Minutes): I spent a total of 35 minutes in direct patient care, including [id number] time with the patient and/or family, reviewing medical records, ordering and reviewing diagnostic tests, and coordinating care with other healthcare providers. This time includes: history taking, physical examination, medical decision making, counseling, ECG interpretation, imaging interpretation, lab interpretation, orders, and education, excluding time spent in the performance of separately billed services.
== END 2025-03-13 11:19 | disposition hospice, home (50) ==
LOC: ED 07:19 → 1E 09:51 → SUATTDRO 09:51 → 1E 11:34 → 2S 02-27 13:52 → 2W 03-09 21:34